=== PATIENT | female | born 1955 | race Caucasian/White ===

== ENCOUNTER → 2020-05-21 09:57 | Outpatient (BNVA) | payer OTHER, SELFPAY | PROVIDERS: PCP Family Medicine; Referring Provider Family Medicine; Visit Provider Internal Medicine | DX: J30.9 Allergic rhinitis, unspecified (principal); J44.9 Chronic obstructive pulmonary disease, unspecified; F41.9 Anxiety disorder, unspecified; Z79.899 Other long term (current) drug therapy | CPT/HCPCS: 99212 ==

== ENCOUNTER 2020-06-09 08:42 | Outpatient (REF) | payer OTHER, SELFPAY ==
--- NOTE | 2020-06-09 17:43 | PFT_ITS ---
INDICATION: COPD. SPIROMETRY: The FEV1 to FVC 77% with an FEV1 of 2.44 L, which is 87% predicted and an FVC of 3.15 L, which is 89% predicted. Bronchodilators were not used during the study. Maximum voluntary ventilation 89% predicted. LUNG VOLUMES: Total lung capacity 85% predicted with an expiratory reserve volume of 81% predicted. DIFFUSION CAPACITY: DLCO of 69% predicted. COMPARISONS: None. INTERPRETATION: No obstructive nor restrictive ventilatory defects identified. No bronchodilators were used at this time. Maximum voluntary ventilation within normal limits. Lung volumes are relatively normal. Total lung capacity just low normal. Therefore, occult interstitial lung conditions cannot be ruled out. The patient also has a mild isolated diffusion impairment. Clinical correlation warranted. MD DELIA Wayne/R[place] / [id number]
== END 2020-06-09 08:43 | disposition home or self-care (01) ==
LOC: HO.RESP 08:42
PROVIDERS: PCP Family Medicine; Visit Provider Internal Medicine
DX: J44.9 Chronic obstructive pulmonary disease, unspecified (principal); J30.9 Allergic rhinitis, unspecified
CPT/HCPCS: 94010; 94727; 94729

== ENCOUNTER → 2020-07-29 09:53 | Outpatient (BNVA) | payer MEDICARE, SELFPAY | PROVIDERS: PCP Family Medicine; Visit Provider Nurse Practitioner | DX: Z13.89 Encounter for screening for other disorder (principal) | CPT/HCPCS: Q3014 ==

== ENCOUNTER 2020-09-08 13:11 | Emergency (ER) | payer MEDICARE, SELFPAY ==
[2020-09-08 15:10] VITALS: BP 112/46; PULSE 64; RESP 18; TEMP 35.9; O2SAT 100; BMI 22.3
--- NOTE | 2020-09-08 18:16 | ED.ANXIETY ---
HPI - Anxiety General Chief Complaint: Anxiety Stated Complaint: panic attack Time Seen by Provider: 09/08/20 15:57 History of Present Illness HPI narrative: Patient with long history of anxiety who is being treated with Atarax at night and clonazepam in the morning complains that she has had trouble getting an appointment with her psychiatrist, she does not think the meds are working well as she has to take them every day and gets breakthrough anxiety attacks every day and is hoping for change in medication She denies any suicidal thoughts she does not hear voices she has does not want hurt anyone and does not want hurt herself she does not want to see crisis she was hoping we could make a medication adjustment here Related Data Home Medications Medication Instructions Recorded Confirmed albuterol sulfate mg INHALATION Q4H PRN 05/21/20 albuterol sulfate 90 mcg/actuation 0 mcg INHALATION 05/21/20 aerosol inhaler azelastine 137 mcg (0.1 %) nasal 1 - 2 spray INTRANASAL BID 05/21/20 spray aerosol jhmqwketjr-ilgdweincodnv-rjgphidj 2 tab PO DAILY PRN 05/21/20 50 mg-325 mg-40 mg tablet cholecalciferol (vitamin D3) 50 50 mcg PO DAILY 05/21/20 mcg (2,000 unit) tablet cyanocobalamin (vitamin B-12) 1,000 mcg PO QAM 05/21/20 1,000 mcg tablet divalproex 250 mg tablet,extended 250 mg PO DAILY 05/21/20 release 24 hr flu vacc 2020-21(65yr 0.5 ml IM DIRECTED 05/21/20 up)-MF59C(PF) 60 mcg(15 mcgx4)/0.5 mL IM syringe fluticasone 250 mcg-salmeterol 50 ea INHALATION 05/21/20 mcg/dose blistr powdr for inhalation fluticasone propionate 50 0 mcg INTRANASAL 05/21/20 mcg/actuation nasal spray,suspension loratadine 10 mg tablet 10 mg PO DAILY 05/21/20 multivitamin 1 tab PO DAILY 05/21/20 ondansetron HCl 4 mg tablet 4 mg PO BID PRN 05/21/20 sumatriptan succinate 100 mg tablet 0 mg PO 05/21/20 zafirlukast 20 mg tablet 20 mg PO BID 05/21/20 acetaminophen 650 mg 0 mg PO 07/29/20 tablet,extended release clonazepam 1 mg tablet 1 mg PO BID PRN 07/29/20 hydroxyzine pamoate 25 mg capsule 25 mg PO BID 07/29/20 naproxen 250 mg tablet 250 mg PO BID 07/29/20 Previous Rx's Medication Instructions Recorded docusate sodium 100 mg capsule 100 mg PO BID #60 cap 07/02/20 linaclotide 290 mcg capsule 290 mcg PO QAM 30 Days #30 cap 07/29/20 pantoprazole 40 mg tablet,delayed 40 mg PO BID #60 tab 07/30/20 release Allergies Allergy/AdvReac Type Severity Reaction Status Date / Time vancomycin [VANCOMYCIN] Allergy Severe REDNESS,ANDI Verified 07/29/20 09:55 H,SWELLING Tetanus & Diphtheria Allergy Severe FEVER,DIFF. Uncoded 03/27/20 16:18 Tox,Adult BREATHING Review of Systems Review of Systems: Positive for anxiety Negatives are no fever no chills no dizziness no weakness no fainting no suicidal thoughts, no homicidal thoughts, she is not hearing voices, no recent illness no runny nose cough or sore throat, no chest pain no shortness of breath no abdominal pain no nausea or vomiting PMFSH Past Medical History Source: nursing notes reviewed Medical History Allergic rhinitis Anxiety COPD (chronic obstructive pulmonary disease) Surgical History History of ear surgery History of esophagogastroduodenoscopy (EGD) History of right knee joint replacement Hx of colonoscopy Family History Family History (Updated 06/17/20 @ 08:53 by JOEY Castro) Father Diabetes Mother Diabetes Osteoporosis HTN (hypertension) Sister Pancreas cancer Social History Social History (Updated 07/29/20 @ 10:09 by JOEY Castro) Alcohol intake: current Alcohol intake frequency: does not drink Smoking Status: Never smoker Advance Directives: No Advance Directives Information Provided: Yes Physical Exam Vital Signs: Vital Signs: Last Vital Signs Temp 96.7 F L 09/08/20 15:10 Pulse 64 09/08/20 15:10 Resp 18 09/08/20 15:10 BP 112/46 L 09/08/20 15:10 Pulse Ox 100 09/08/20 15:10 Body Mass Index 22.3 General appearance no acute distress, comfortable relaxed and cooperative Head is normocephalic atraumatic neck is is supple Chest is clear bilaterally Extremities full range of motion x4 Skin no rash Neuro no focal deficit Course Course Course Narrative: Patient's main concern is she is unable to easily get appointments with her psychiatrist and is concerned that she might need medication adjustments At this point she is not in crisis she does not want a see crisis she is not suicidal homicidal she does not hear voices, she is able to perform her activities of daily life easily It is explained that we are unable at this time to facilitate an appointment with her psychiatrist and she understands she needs to either find a new provider if this 1 is too busy or continue trying to get an appointment Discharge Plan Discharge Clinical Impression: Anxiety Patient Disposition: Home, Self-Care Additional Instructions: Follow with your psychiatrist and primary doctor to review medications There may be some medications that prevent anxiety which might work better for you so you do need to review medications with psychiatrist We only have psychiatrist available for emergencies such as suicidal thoughts or hearing voices You can return here any time for any worse condition or any concerns Prescriptions: No Action docusate sodium [DOK] 100 mg capsule 100 mg PO BID Qty: 60 RF: 5 pantoprazole 40 mg tablet,delayed release (DR/EC) 40 mg PO BID Qty: 60 RF: 1 divalproex 250 mg tablet extended release 24 hr 250 mg PO DAILY RF: 0 loratadine 10 mg tablet 10 mg PO DAILY RF: 0 fluticasone propionate 50 mcg/actuation spray,suspension 0 mcg intranasal RF: 0 zafirlukast 20 mg tablet 20 mg PO BID RF: 0 fluticasone propion-salmeterol 250-50 mcg/dose blister with device inhalation RF: 0 ondansetron HCl 4 mg tablet 4 mg PO BID PRN (Reason: nausea) RF: 0 ehmzvzduau-dsfobjgdsmflp-bnyp 50-325-40 mg tablet 2 tab PO DAILY PRNRF: 0 sumatriptan succinate 100 mg tablet 0 mg PO RF: 0 albuterol sulfate 90 mcg/actuation HFA aerosol inhaler 0 mcg inhalation RF: 0 cyanocobalamin (vitamin B-12) 1,000 mcg tablet 1,000 mcg PO QAM RF: 0 cholecalciferol (vitamin D3) 50 mcg (2,000 unit) tablet 50 mcg PO DAILY RF: 0 multivitamin Tablet 1 tab PO DAILY RF: 0 azelastine 137 mcg (0.1 %) aerosol,spray 1 - 2 spray intranasal BID RF: 0 albuterol sulfate 2.5 mg /3 mL (0.083 %) solution for nebulization inhalation Q4H PRNRF: 0 Fluad Quad 2020-21(65y up)(PF) 60 mcg (15 mcg x 4)/0.5 mL syringe 0.5 ml IM DIRECTED RF: 0 Linzess 290 mcg capsule 290 mcg PO QAM 30 Days Qty: 30 RF: 4 Interventions: ED Discharge Assessment Last Done: 09/08/20 16:29 Discharge Date/Time: 09/08/20 16:29
== END 2020-09-08 16:29 | disposition home or self-care (01) ==
PROVIDERS: Emergency Provider Emergency Medicine; PCP Family Medicine
DX: F41.9 Anxiety disorder, unspecified (principal); Z79.899 Other long term (current) drug therapy
CPT/HCPCS: 99282; 99283

== ENCOUNTER → 2020-09-15 15:22 | Outpatient (BNVA) | payer MEDICARE, SELFPAY | PROVIDERS: PCP Family Medicine; Visit Provider Nurse Practitioner | CPT/HCPCS: Q3014 ==

== ENCOUNTER → 2020-09-22 11:03 | Outpatient (BNVA) | payer MEDICARE, SELFPAY | PROVIDERS: PCP Family Medicine; Visit Provider Internal Medicine | DX: J44.9 Chronic obstructive pulmonary disease, unspecified (principal); J30.9 Allergic rhinitis, unspecified; F41.9 Anxiety disorder, unspecified; Z79.51 Long term (current) use of inhaled steroids | CPT/HCPCS: 99212 ==

== ENCOUNTER → 2020-10-28 13:29 | Outpatient (BNVA) | payer MEDICARE, SELFPAY | PROVIDERS: PCP Family Medicine; Visit Provider Nurse Practitioner | DX: Z13.89 Encounter for screening for other disorder (principal) | CPT/HCPCS: Q3014 ==

== ENCOUNTER 2020-11-24 09:37 | Emergency (ER) | payer MEDICARE, SELFPAY ==
--- NOTE | ~2020-11-24 | XR_ITS ---
EXAMINATION: XR CHEST CLINICAL INFORMATION: Cough COMPARISON: Previous chest x-ray most recent August 2019 TECHNIQUE: Frontal view of the chest was obtained. FINDINGS: The cardiac and mediastinal contours are stable. The lungs are clear. There is no pleural effusion or pneumothorax. There are degenerative changes of the spine. XR/XR chest 1V IMPRESSION: No evidence for acute disease in the chest.
[2020-11-24 10:04] VITALS: BP 91/53; PULSE 74; RESP 18; TEMP 37.2; O2SAT 98; BMI 25.1
--- NOTE | 2020-11-24 10:19 | ED.GENADULT ---
HPI - General Adult General Chief complaint: General Medical Stated complaint: cough Time Seen by Provider: 11/24/20 10:17 Source: patient Mode of arrival: ambulatory Limitations: no limitations History of Present Illness HPI narrative: 65 y/o female with history of COPD, GERD, constipation, anxiety, seasonal allergies who presents to the ER with dry cough, headache, malaise for about 1 week. She has been using her inhalers as directed. She is not SOB or having LOPES. No chest pain, fever or chills. She just generally feels unwell. No known exposure to COVID-19. MD complaint: COVID symptoms Onset (ago): day(s) (5) Location: head and chest Radiation: non-radiation Quality: aching Pain Consistency: constant Relieving factors: rest Exacerbating factors: movement Associated symptoms: cough, headaches, loss of appetite and malaise Treatments prior to arrival: none Related Data Home Medications Medication Instructions Recorded Confirmed albuterol sulfate mg INHALATION Q4H PRN 05/21/20 09/22/20 azelastine 137 mcg (0.1 %) nasal 1 - 2 spray INTRANASAL BID 05/21/20 09/22/20 spray aerosol bzfagfwaip-trunwodklwqwu-gndtysow 2 tab PO DAILY PRN 05/21/20 09/22/20 50 mg-325 mg-40 mg tablet cholecalciferol (vitamin D3) 50 50 mcg PO DAILY 05/21/20 09/22/20 mcg (2,000 unit) tablet cyanocobalamin (vitamin B-12) 1,000 mcg PO QAM 05/21/20 09/22/20 1,000 mcg tablet divalproex 250 mg tablet,extended 250 mg PO DAILY 05/21/20 09/22/20 release 24 hr flu vacc 2020-21(65yr 0.5 ml IM DIRECTED 05/21/20 09/22/20 up)-MF59C(PF) 60 mcg(15 mcgx4)/0.5 mL IM syringe fluticasone 250 mcg-salmeterol 50 ea INHALATION 05/21/20 09/22/20 mcg/dose blistr powdr for inhalation fluticasone propionate 50 0 mcg INTRANASAL 05/21/20 09/22/20 mcg/actuation nasal spray,suspension loratadine 10 mg tablet 10 mg PO DAILY 05/21/20 09/22/20 multivitamin 1 tab PO DAILY 05/21/20 09/22/20 ondansetron HCl 4 mg tablet 4 mg PO BID PRN 05/21/20 09/22/20 sumatriptan succinate 100 mg tablet 0 mg PO 05/21/20 09/22/20 zafirlukast 20 mg tablet 20 mg PO BID 05/21/20 09/22/20 acetaminophen 650 mg 0 mg PO 07/29/20 09/22/20 tablet,extended release clonazepam 1 mg tablet 1 mg PO BID PRN 07/29/20 09/22/20 hydroxyzine pamoate 25 mg capsule 25 mg PO BID 07/29/20 09/22/20 naproxen 250 mg tablet 250 mg PO BID 07/29/20 09/22/20 Previous Rx's Medication Instructions Recorded linaclotide 290 mcg capsule 290 mcg PO QAM 30 Days #30 cap 07/29/20 methylcellulose (laxative) 500 mg 1,000 mg PO DAILY 30 Days #60 tab 09/15/20 tablet pantoprazole 40 mg tablet,delayed 40 mg PO DAILY #60 tab 09/23/20 release azithromycin [Zithromax Z-Thomas] See Rx Instructions .ROUTE 11/24/20 .COMPLEX #6 tab prednisone 40 mg PO DAILY #10 tab 11/24/20 Allergies Allergy/AdvReac Type Severity Reaction Status Date / Time vancomycin [VANCOMYCIN] Allergy Severe REDNESS,ANDI Verified 10/28/20 13:30 H,SWELLING Tetanus & Diphtheria Allergy Severe FEVER,DIFF. Uncoded 03/27/20 16:18 Tox,Adult BREATHING Review of Systems Review of Systems: Constitutional: No Fever, + Chills ENT/Mouth: No sore throat, No Rhinorrhea, No Swallowing Difficulty Cardiovascular: No Chest Pain, No SOB, No Orthopnea, No Edema Respiratory: + Cough, No Sputum, No Wheezing, No dyspnea Gastrointestinal: + Nausea, No Vomiting, No Diarrhea, No abdominal Pain Genitourinary: No Dysuria, No Urinary Frequency, No Hematuria Musculoskeletal: + joint pain, + Myalgias Skin: No Skin Lesions, No rash Neuro: No Weakness, No Numbness, No Dizziness, + Headache Psych: No Anxiety/Panic, No Depression Heme/Lymph: No Bruising, No Lymphadenopathy PMFSH Past Medical History Attestation statement: The following information was validated with the patient. Medical History Allergic rhinitis Anxiety COPD (chronic obstructive pulmonary disease) Surgical History History of ear surgery History of esophagogastroduodenoscopy (EGD) History of right knee joint replacement Hx of colonoscopy Family History Family History Father Diabetes Mother Diabetes Osteoporosis HTN (hypertension) Sister Pancreas cancer Social History Social History (Updated 10/28/20 @ 13:40 by JOEY Castro) Alcohol intake: current Alcohol intake frequency: does not drink Smoking Status: Never smoker Advance Directives: No Advance Directives Information Provided: No Physical Exam Vital Signs: Vital Signs: Last Vital Signs Temp 98.9 F 11/24/20 10:04 Pulse 67 11/24/20 10:40 Resp 18 11/24/20 10:04 BP 100/56 L 11/24/20 10:40 Pulse Ox 98 11/24/20 10:04 Body Mass Index 25.1 Appearance: Alert. Oriented X3. No acute distress. Eyes: Pupils equal, round and reactive to light. ENT: Pharynx normal. Neck: Normal inspection. Neck supple. CVS: Normal heart rate and rhythm. Pulses normal. Respiratory: No respiratory distress. Focal expiratory wheeze in RLL, otherwise clear throughout. Speaking in full sentences. Abdomen: Soft and nontender. +BS x4 Skin: Skin warm and dry. Normal skin color. Normal skin turgor. No rashes. Extremities: No lower extremity edema. Negative Toribio's sign. Neuro: Oriented X 3. No motor deficit. No sensory deficit. Course Course Course Narrative: 65 y/o female with history of COPD presenting with COVID symptoms of cough, headache and body aches x5-7 days. Non-toxic and afebrile on arrival. Soft BP initially, repeated was 100/56. Asymptomatic. Exam concerning for possible RLL PNA. Will get CXR and Viral PCR. Reevaluation(s) Reevaluation #1: CXR clear. Viral PCR negative. Will treat for acute bronchitis. She is stable for d/c home with outpatient follow up. Warning signs to return were d/w patient. Medical Decision Making Lab Data Labs: Lab Results 11/24/20 Range/Units 10:54 Coronavirus (PCR) NEGATIVE (Negative) Influenza Type A (PCR) NEGATIVE (Negative) Influenza Type B (PCR) NEGATIVE (Negative) RSV RNA Qual (PCR) NEGATIVE (Negative) Discharge Plan Discharge Clinical Impression: Bronchitis Patient Disposition: Home, Self-Care Instructions: Acute Bronchitis (ED) Additional Instructions: You were NEGATIVE for COVID-19, Flu and RSV. Your chest x-ray and oxygen levels were normal. Rest. Drink plenty of fluids. Do not go out in public while you are feeling unwell. Take the prescribed antibiotic and steroid medication for your lungs. Take over the counter cold/flu medications as needed for your symptoms. Take Tylenol and/or Motrin as needed for headaches and body aches. Follow up with your doctor this week. If your symptoms worsen , if you develop difficulty breathing or any other concerning symptom come back to the ER for further evaluation. Prescriptions: New azithromycin [Zithromax Z-Thomas] 250 mg tablet See Rx Instructions .ROUTE .COMPLEX Qty: 6 RF: 0 prednisone 20 mg tablet 40 mg PO DAILY Qty: 10 RF: 0 No Action pantoprazole 40 mg tablet,delayed release (DR/EC) 40 mg PO DAILY Qty: 60 RF: 1 divalproex 250 mg tablet extended release 24 hr 250 mg PO DAILY RF: 0 loratadine 10 mg tablet 10 mg PO DAILY RF: 0 fluticasone propionate 50 mcg/actuation spray,suspension 0 mcg intranasal RF: 0 zafirlukast 20 mg tablet 20 mg PO BID RF: 0 fluticasone propion-salmeterol 250-50 mcg/dose blister with device inhalation RF: 0 ondansetron HCl 4 mg tablet 4 mg PO BID PRN (Reason: nausea) RF: 0 nibxxyjltc-hwhmtesqhpeqt-cznj 50-325-40 mg tablet 2 tab PO DAILY PRNRF: 0 sumatriptan succinate 100 mg tablet 0 mg PO RF: 0 cyanocobalamin (vitamin B-12) 1,000 mcg tablet 1,000 mcg PO QAM RF: 0 cholecalciferol (vitamin D3) 50 mcg (2,000 unit) tablet 50 mcg PO DAILY RF: 0 multivitamin Tablet 1 tab PO DAILY RF: 0 azelastine 137 mcg (0.1 %) aerosol,spray 1 - 2 spray intranasal BID RF: 0 albuterol sulfate 2.5 mg /3 mL (0.083 %) solution for nebulization inhalation Q4H PRNRF: 0 Fluad Quad 2020-(65y up)(PF) 60 mcg (15 mcg x 4)/0.5 mL syringe 0.5 ml IM DIRECTED RF: 0 hydroxyzine pamoate 25 mg capsule 25 mg PO BID RF: 0 naproxen 250 mg tablet 250 mg PO BID RF: 0 acetaminophen 650 mg tablet extended release 0 mg PO RF: 0 clonazepam 1 mg tablet 1 mg PO BID PRNRF: 0 Linzess 290 mcg capsule 290 mcg PO QAM 30 Days Qty: 30 RF: 4 Citrucel 500 mg tablet 1,000 mg PO DAILY 30 Days Qty: 60 RF: 6 Interventions: ED Discharge Assessment Last Done: 11/24/20 12:45 Discharge Date/Time: 11/24/20 12:45 Print Language: [place]
[2020-11-24 10:40] VITALS: BP 100/56; PULSE 67
--- NOTE | 2020-11-24 10:54 | PC.NURSE ---
BP reassessed and is trending up. CXR and covid swab obtained
[2020-11-24] MEDS: Acetaminophen 325 MG TABLET 975 MG PO (11:18)
[2020-11-24 11:43] LABS: Influenza A PCR NEGATIVE (Negative); Influenza B PCR NEGATIVE (Negative); Resp Syncy Virus RNA Qual PCR NEGATIVE (Negative); SARS COV2 PCR INHOUSE NEGATIVE (Negative)
== END 2020-11-24 12:45 | disposition home or self-care (01) ==
PROVIDERS: Physician Assistant; Emergency Provider Emergency Medicine; PCP Family Medicine
DX: J20.9 Acute bronchitis, unspecified (principal); Z20.822 Contact with and (suspected) exposure to COVID-19; J44.9 Chronic obstructive pulmonary disease, unspecified
CPT/HCPCS: 0241U; 36415; 71045; 99283

== ENCOUNTER 2020-11-28 12:44 | Inpatient (IN) | payer MEDICARE, SELFPAY ==
[2020-11-28] VITALS (9 sets, daily range): BP systolic 100–150; BP diastolic 46–79; PULSE 69–78; RESP 15–40; TEMP 35.9–36.9; O2SAT 89–100; BMI 25.8
--- NOTE | ~2020-11-28 | XR_ITS ---
EXAMINATION: XR CHEST CLINICAL INFORMATION: Shortness of breath COMPARISON: Previous chest x-rays most recent 11/24/2020 TECHNIQUE: Frontal view of the chest was obtained. FINDINGS: The cardiac and mediastinal contours are stable. There are increased markings at the left lung base questionable for a pneumonia. The right lung is clear. There is no pleural effusion or pneumothorax. There are degenerative changes of the spine. XR/XR chest 1V IMPRESSION: Question left base pneumonia.
[2020-11-28] MEDS: methylPREDNISolone Sod Succ 125 MG/2 ML VIAL IVPUSH (13:20)
[2020-11-28] MEDS: Albuterol/Iprat 2.5/0.5MG 3 ML AMPUL.NEB INHALE ×2 (13:26→20:00)
[2020-11-28] MEDS: LORazepam 2 MG/ML VIAL 1 MG IVPUSH (14:13)
--- NOTE | 2020-11-28 14:25 | ED_ITS ---
HPI - General Adult General Chief complaint: Dyspnea Stated complaint: sob Time Seen by Provider: 11/28/20 13:09 Source: patient Mode of arrival: ambulatory Limitations: no limitations History of Present Illness HPI narrative: Patient presents for shortness of breath, body aches, coughing, and shortness of breath on exertion. Patient states no fever or chills. Patient was seen last week with similar symptoms. Related Data Home Medications Medication Instructions Recorded Confirmed azelastine 137 mcg (0.1 %) nasal 1 - 2 spray INTRANASAL BID 05/21/20 09/22/20 spray aerosol [id number] 2 tab PO DAILY PRN 05/21/20 09/22/20 50 mg-325 mg-40 mg tablet cholecalciferol (vitamin D3) 50 50 mcg PO DAILY 05/21/20 11/28/20 mcg (2,000 unit) tablet cyanocobalamin (vitamin B-12) 1,000 mcg PO QAM 05/21/20 11/28/20 1,000 mcg tablet divalproex 250 mg tablet,extended 250 mg PO BEDTIME 05/21/20 11/28/20 release 24 hr fluticasone 250 mcg-salmeterol 50 1 inh INHALATION BID 05/21/20 11/28/20 mcg/dose blistr powdr for inhalation fluticasone propionate 50 2 spray INTRANASAL DAILY 05/21/20 11/28/20 mcg/actuation nasal spray,suspension loratadine 10 mg tablet 10 mg PO DAILY 05/21/20 11/28/20 multivitamin 1 tab PO DAILY 05/21/20 09/22/20 ondansetron HCl 4 mg tablet 4 mg PO BID PRN 05/21/20 09/22/20 sumatriptan succinate 100 mg tablet 100 mg PO ONCE PRN 05/21/20 11/28/20 zafirlukast 20 mg tablet 20 mg PO BID 05/21/20 11/28/20 acetaminophen 650 mg 0 mg PO 07/29/20 09/22/20 tablet,extended release clonazepam 1 mg tablet 1 mg PO BID 07/29/20 11/28/20 hydroxyzine pamoate 25 mg capsule 25 mg PO BID PRN 07/29/20 11/28/20 naproxen 250 mg tablet 250 mg PO BID 07/29/20 09/22/20 albuterol sulfate 2 puff PO Q4H PRN 11/28/20 11/28/20 docusate sodium 100 mg PO BID 11/28/20 11/28/20 sucralfate 1 tab PO QID 11/28/20 11/28/20 Previous Rx's Medication Instructions Recorded linaclotide 290 mcg capsule 290 mcg PO QAM 30 Days #30 cap 07/29/20 methylcellulose (laxative) 500 mg 1,000 mg PO DAILY 30 Days #60 tab 09/15/20 tablet pantoprazole 40 mg tablet,delayed 40 mg PO DAILY #60 tab 09/23/20 release azithromycin [Zithromax Z-Thomas] See Rx Instructions .ROUTE 11/24/20 .COMPLEX #6 tab prednisone 40 mg PO DAILY #10 tab 11/24/20 Allergies Allergy/AdvReac Type Severity Reaction Status Date / Time vancomycin [VANCOMYCIN] Allergy Severe REDNESS,ANDI Verified 10/28/20 13:30 H,SWELLING Tetanus & Diphtheria Allergy Severe FEVER,DIFF. Uncoded 03/27/20 16:18 Tox,Adult BREATHING Review of Systems Review of Systems: Yes all other systems are reviewed and are negative Constitutional: Constitutional: Reports as per HPI and Reports no additional constitutional complaints Eyes: Eyes: Reports as per HPI and Reports no additional eye complaints ENT: Reports system reviewed and no additional complaints, except as doc umented and Reports as per HPI Cardiovascular: Cardiovascular: Reports as per HPI, Reports no additional cardiovascular complaints, Reports dyspnea and Reports dyspnea on exertion Respiratory: Respiratory: Reports as per HPI, Reports no additional respiratory complaints, Reports cough, Reports pain with cough, Reports dyspnea and Reports dyspnea on exertion Gastrointestinal: Gastrointestinal: Reports as per HPI and Reports no additional gastrointestinal complaints Genitourinary: Genitourinary: Reports no additional female genitourinary complaints and Reports as per HPI Musculoskeletal: Musculoskeletal: Reports no additional musculoskeletal complaints and Reports as per HPI Neurologic: Reports system reviewed and no additional complaints, except as documented and Reports as per HPI Psychiatric: Psychiatric: Reports no additional psychiatric complaints and Reports as per HPI [facility] Past Medical History Medical History Allergic rhinitis Anxiety COPD (chronic obstructive pulmonary disease) Surgical History History of ear surgery History of esophagogastroduodenoscopy (EGD) History of right knee joint replacement Hx of colonoscopy Family History Family History Father Diabetes Mother Diabetes Osteoporosis HTN (hypertension) Sister Pancreas cancer Social History Social History (Updated 10/28/20 @ 13:40 by JOEY Castro) Alcohol intake: current Alcohol intake frequency: does not drink Smoking Status: Never smoker Advance Directives: Yes Advance Directives Information Provided: Yes Advance Directives on File: No Physical Exam Vital Signs: Vital Signs: Last Vital Signs Temp 98.4 F 11/28/20 12:48 Pulse 72 11/28/20 15:05 Resp 18 11/28/20 15:05 BP 100/64 11/28/20 15:05 Pulse Ox 89 L 11/28/20 16:05 Oxygen Flow Rate 2 11/28/20 12:48 Body Mass Index 25.8 Const: General: cooperative, healthy appearing, comfortable, well developed, alert, awake and acute distress (Mild); No lethargic Orientation/consciousne ss: patient oriented x3 and No lethargic HENMT: Head: Yes normal to inspection, Yes No palpable skull fracture present, Yes normocephalic, Yes atraumatic and No abrasion Eyes: General: appearance normal, both eyes and all related structures Neck: Neck: Yes normal visual inspection, Yes full ROM, Yes no lympha denopathy, Yes no meningeal signs, Yes trachea midline, Yes supple and No tender Chest: Chest palpation & inspection: normal inspection of the chest and normal palpation of entire chest wall Resp: Effort & Inspection: normal respiratory effort and able to speak in complete sentences Auscultation: rhonchi (Diffuse) and wheezes (Diffuse) expiratory wheezes Cardio: Jugular venous distension: no JVD Heart sounds: S1 normal heart sound present and S2 normal heart sound present GI: Inspection: Yes normal to inspection and No abdominal wall ecchymosis Palpation (GI): Soft to palpation, not firm, nontender, no guarding and not rigid : General: No CVA tenderness and Yes no CVA tenderness Back/Spine/Pelvis: Back: no CVA tenderness, No CVA tenderness and No back tenderness Skin: General skin exam: no rashes or lesions noted and elasticity normal Neuro: General: patient oriented x3, no meningeal signs and CN's II-XI intact bilaterally Cranial nerves: Yes CN's II-XII intact bilaterally Extrem: General: Yes normal to inspection and Yes full ROM Psych: Appearance: grossly normal, well kempt and not disheveled Course Course Course Narrative: Patient will be worked up as asthma/COPD exacerbation. Patient will have cardiac evaluation also. Patient had chest x-ray. Reevaluation(s) Reevaluation #1: X-ray shows questionable pneumonia. Antibiotics started. Patient started albuterol, magnesium, Solu-Medrol. COVID swab pending Reevaluation #2: latic 3.5 and will contact hospitalist for admission. Reevaluation #3: On ambulation patient O2 saturation dropped from 95-89% on room air. Hospitalist accepted the case for admission. EKG negative for STEMI Medical Decision Making MDM Narrative Medical decision making narrative: COPD exacerbation. Pneumonia Lab Data Result diagrams: 11/28/20 14:47 11/28/20 14:47 Labs: Lab Results 11/28/20 11/28/20 11/28/20 Range/Units 14:47 14:47 14:47 WBC 9.3 (4.8-10.8) X10*3/uL RBC 4.67 (4.20-5.50) X10*6/uL Hgb 12.5 (12.0-16.0) g/dl Hct 39.6 (37-47) % MCV 84.8 (80-98) fL MCH 26.8 L (27.0-33.0) pg MCHC 31.6 (31.0-35.0) g/dl RDW 13.6 (11.0-16.0) % Plt Count 344 (160-400) X10*3/uL MPV 8.8 L (9.4-12.3) fL Immature Gran % (Auto) 0.6 H (0.0-0.4) % Neut % (Auto) 92.7 H (45-73) % Lymph % (Auto) 5.7 L (20-40) % Bollinger % (Auto) 0.9 L (2-11) % Eos % (Auto) 0.0 (0-4) % Baso % (Auto) 0.1 (0-2) % Lymph # (Auto) 0.5 L (1.2-4.9) X10*3/uL Bollinger # (Auto) 0.1 (0.1-1.2) X10*3/uL Eos # (Auto) 0.0 (0.0-0.4) X10*3/uL Baso # (Auto) 0.0 (0.0-0.2) X10*3/uL Abs Immat Gran (auto) 0.06 H (0.00-0.03) X10*3/uL Absolute Neuts (auto) 8.6 H (2.0-8.3) X10*3/uL Absolute Nucleated RBC 0.000 (0.0-0.012) X10*3/uL Nucleated RBC % (auto) 0.0 (0.0-0.2) /100WBC Smear Tech's Comments VERIFIED PT 11.6 (10.8-13.0) SEC INR 1.0 (0.9-1.1) Sodium (135-145) mmol/L Potassium (3.3-5.1) mmol/L Chloride (96-108) mmol/L Carbon Dioxide (22-29) mmol/L Anion Gap (12-20) BUN (9-16) mg/dL Creatinine (0.5-1.4) mg/dL Estim Creat Clear Calc Estimated GFR Random Glucose (60-115) mg/dL Lactic Acid (0.5-2.0) mmol/L Calcium (8.4-10.2) mg/dL Magnesium (1.6-2.6) mg/dL Troponin I High Sens (<3.5-17.0) ng/L B-Natriuretic Peptide 55 (<100) pg/mL Coronavirus (PCR) (Negative) Influenza Type A (PCR) (Negative) Influenza Type B (PCR) (Negative) RSV RNA Qual (PCR) (Negative) 11/28/20 11/28/20 11/28/20 Range/Units 14:47 14:47 14:47 WBC (4.8-10.8) X10*3/uL RBC (4.20-5.50) X10*6/uL Hgb (12.0-16.0) g/dl Hct (37-47) % MCV (80-98) fL MCH (27.0-33.0) pg MCHC (31.0-35.0) g/dl RDW (11.0-16.0) % Plt Count (160-400) X10*3/uL MPV (9.4-12.3) fL Immature Gran % (Auto) (0.0-0.4) % Neut % (Auto) (45-73) % Lymph % (Auto) (20-40) % Bollinger % (Auto) (2-11) % Eos % (Auto) (0-4) % Baso % (Auto) (0-2) % Lymph # (Auto) (1.2-4.9) X10*3/uL Bollinger # (Auto) (0.1-1.2) X10*3/uL Eos # (Auto) (0.0-0.4) X10*3/uL Baso # (Auto) (0.0-0.2) X10*3/uL Abs Immat Gran (auto) (0.00-0.03) X10*3/uL Absolute Neuts (auto) (2.0-8.3) X10*3/uL Absolute Nucleated RBC (0.0-0.012) X10*3/uL Nucleated RBC % (auto) (0.0-0.2) /100WBC Smear Tech's Comments PT (10.8-13.0) SEC INR (0.9-1.1) Sodium 145 (135-145) mmol/L Potassium 3.9 (3.3-5.1) mmol/L Chloride 107 (96-108) mmol/L Carbon Dioxide 26 (22-29) mmol/L Anion Gap 16 (12-20) BUN 16 (9-16) mg/dL Creatinine 0.80 (0.5-1.4) mg/dL Estim Creat Clear Calc 74.5 Estimated GFR > 60 Random Glucose 148 H (60-115) mg/dL Lactic Acid (0.5-2.0) mmol/L Calcium 9.9 (8.4-10.2) mg/dL Magnesium 2.4 (1.6-2.6) mg/dL Troponin I High Sens < 3.5 (<3.5-17.0) ng/L B-Natriuretic Peptide (<100) pg/mL Coronavirus (PCR) NEGATIVE (Negative) Influenza Type A (PCR) NEGATIVE (Negative) Influenza Type B (PCR) NEGATIVE (Negative) RSV RNA Qual (PCR) NEGATIVE (Negative) 11/28/20 11/28/20 Range/Units 14:47 14:47 WBC (4.8-10.8) X10*3/uL RBC (4.20-5.50) X10*6/uL Hgb (12.0-16.0) g/dl Hct (37-47) % MCV (80-98) fL MCH (27.0-33.0) pg MCHC (31.0-35.0) g/dl RDW (11.0-16.0) % Plt Count (160-400) X10*3/uL MPV (9.4-12.3) fL Immature Gran % (Auto) (0.0-0.4) % Neut % (Auto) (45-73) % Lymph % (Auto) (20-40) % Bollinger % (Auto) (2-11) % Eos % (Auto) (0-4) % Baso % (Auto) (0-2) % Lymph # (Auto) (1.2-4.9) X10*3/uL Bollinger # (Auto) (0.1-1.2) X10*3/uL Eos # (Auto) (0.0-0.4) X10*3/uL Baso # (Auto) (0.0-0.2) X10*3/uL Abs Immat Gran (auto) (0.00-0.03) X10*3/uL Absolute Neuts (auto) (2.0-8.3) X10*3/uL Absolute Nucleated RBC (0.0-0.012) X10*3/uL Nucleated RBC % (auto) (0.0-0.2) /100WBC Smear Tech's Comments PT (10.8-13.0) SEC INR (0.9-1.1) Sodium (135-145) mmol/L Potassium (3.3-5.1) mmol/L Chloride (96-108) mmol/L Carbon Dioxide (22-29) mmol/L Anion Gap (12-20) BUN (9-16) mg/dL Creatinine (0.5-1.4) mg/dL Estim Creat Clear Calc Estimated GFR Random Glucose (60-115) mg/dL Lactic Acid 3.8 H* (0.5-2.0) mmol/L Calcium (8.4-10.2) mg/dL Magnesium Cancelled (1.6-2.6) mg/dL Troponin I High Sens (<3.5-17.0) ng/L B-Natriuretic Peptide (<100) pg/mL Coronavirus (PCR) (Negative) Influenza Type A (PCR) (Negative) Influenza Type B (PCR) (Negative) RSV RNA Qual (PCR) (Negative) ECG Data Interpretation: Sinus rhythm with premature supraventricular complexes. Ventricular rate 86. Peer interval 142. QRS 96. QTC 493. Negative STEMI Discharge Plan Discharge Clinical Impression: COPD (chronic obstructive pulmonary disease), Pneumonia Patient Disposition: Admitted As Inpatient
[2020-11-28 14:57] LABS: Basophils Percent Auto 0.1 % (0-2); Hematocrit 39.6 % (37-47); Hemoglobin 12.5 g/dl (12.0-16.0); Imm Gran Abs Auto 0.06 X10*3/uL (0.00-0.03); Imm Gran Pct Auto 0.6 % (0.0-0.4); Lymphocytes Absolute Auto 0.5 X10*3/uL (1.2-4.9); Lymphocytes Percent Auto 5.7 % (20-40); MANUAL DIFF FLAG SCAN; Mean Corpuscular HGB Conc 31.6 g/dl (31.0-35.0); Mean Corpuscular Hemoglobin 26.8 pg (27.0-33.0); Mean Corpuscular Volume 84.8 fL (80-98); Mean Platelet Volume 8.8 fL (9.4-12.3); Monocytes Absolute Auto 0.1 X10*3/uL (0.1-1.2); Monocytes Percent Auto 0.9 % (2-11); Neutrophils Absolute Auto 8.6 X10*3/uL (2.0-8.3); Neutrophils Percent Auto 92.7 % (45-73); Platelet Count 344 X10*3/uL (160-400); Red Blood Count 4.67 X10*6/uL (4.20-5.50); Red Cell Distribution Width 13.6 % (11.0-16.0); SCAN SMEAR FLAG 1; White Blood Count 9.3 X10*3/uL (4.8-10.8)
[2020-11-28] MEDS: cefTRIAXone sodium 1 GM in 0.9 % Sodium Chloride 50 ML IV (15:02)
[2020-11-28 15:07] LABS: Prothrombin Time 11.6 SEC (10.8-13.0)
[2020-11-28 15:14] LABS: SLIDE REVIEW VERIFIED
[2020-11-28 15:24] LABS: Lactic Acid 3.8 mmol/L (0.5-2.0)
[2020-11-28 15:29] LABS: Anion Gap 16 (12-20); Blood Urea Nitrogen 16 mg/dL (9-16); Calcium 9.9 mg/dL (8.4-10.2); Carbon Dioxide 26 mmol/L (22-29); Chloride 107 mmol/L (96-108); Creatinine Clr Calc Pharmacy 74.5; Estimated Glomerular Filt Rate > 60; Glucose Random 148 mg/dL (60-115); Magnesium 2.4 mg/dL (1.6-2.6); Potassium 3.9 mmol/L (3.3-5.1); Sodium 145 mmol/L (135-145)
[2020-11-28 15:32] LABS: B Type Natriuretic Peptide 55 pg/mL (<100); Troponin-I High Sensitivity < 3.5 ng/L (<3.5-17.0)
[2020-11-28 15:48] LABS: Influenza A PCR NEGATIVE (Negative); Influenza B PCR NEGATIVE (Negative); Resp Syncy Virus RNA Qual PCR NEGATIVE (Negative); SARS COV2 PCR INHOUSE NEGATIVE (Negative)
[2020-11-28] MEDS: Azithromycin 500 MG in 0.9 % Sodium Chloride 250 ML 125 MG IV (15:52)
[2020-11-28] MEDS: 0.9 % Sodium Chloride 1,000 ML 999 ML IV ×2 (15:53→16:20)
--- NOTE | 2020-11-28 16:06 | PC.NURSE ---
TRIALED AMBULATION, SPO2 DOWN TO 89% ON RA, DOES NOT USE SUPP O2 AT HOME.
--- NOTE | 2020-11-28 16:10 | ECG_ITS ---
Test Reason : DYSPNEA Blood Pressure : / mmHG Vent. Rate : 086 BPM Atrial Rate : 086 BPM P-R Int : 142 ms QRS Dur : 096 ms QT Int : 412 ms P-R-T Axes : 067 -03 025 degrees QTc Int : 493 ms Sinus rhythm with Premature supraventricular complexes Minimal voltage criteria for LVH, may be normal variant Lateral infarct (cited on or before 09-JUN-2014) Cannot rule out Inferior infarct , age undetermined Abnormal ECG When compared with ECG of 03-SEP-2016 16:26, Premature supraventricular complexes are now Present QT has lengthened Referred By: Ryan Lawrence Electronically Signed By:ULYSSES UMAÑA MD
[2020-11-28 17:01] LABS: Reflex Lactate? Lactic Acid Added
--- NOTE | 2020-11-28 17:21 | P.HPHOSP_ITS ---
History of Present Illness Date of Service: 11/28/20 <JOSE Baker - Last Filed: 11/28/20 17:58> Chief Complaint: Shortness of breath <JOSE Baker - Last Filed: 11/28/20 17:58> This is a 65-year-old Turkish-speaking female who presents to the emergency department complaints of shortness of breath. She has been feeling unwell for the past several days. She reports a cough productive of green phlegm, decreased p.o. intake and shortness of breath. She ran out of nebulizer solution at home and has not been able to use her nebulizer. Was seen in the emergency department on November 24 and diagnosed with bronchitis. She was discharged home with azithromycin and prednisone which she has been taking. On arrival she was tachypneic with respiratory rate in the 40s. She was hypoxic with oxygen saturation of 89% on room air. Lab work was relatively unremarkable with the exception of an elevated lactic acid of 3.8. Chest x-ray showed question of left lower lobe pneumonia. In the emergency department she was treated with ceftriaxone, azithromycin, IV Solu-Medrol and DuoNeb breathing treatment as well as IV fluid. Her respiratory rate has improved significantly. <JOSE Baker - Last Filed: 11/28/20 17:58> Review of Systems Review of Systems: Yes all other systems are reviewed and are negative <JOSE Baker - Last Filed: 11/28/20 17:58> Cardiovascular: Cardiovascular: Denies chest pain and Reports dyspnea <JOSE Baker - Last Filed: 11/28/20 17:58> Respiratory: Respiratory: Reports cough and Reports dyspnea <JOSE Verduzco - Last Filed: 11/28/20 17:58> Gastrointestinal: Gastrointestinal: Denies abdominal pain <JOSE Baker Last Filed: 11/28/20 17:58> [facility] Medical History: Medical History Allergic rhinitis Anxiety COPD (chronic obstructive pulmonary disease) <JOSE Baker Last Filed: 11/28/20 17:58> Functional capacity: independent ambulation <JOSE Baker Last Filed: 11/28/20 17:58> Family History: Family History Father Diabetes Mother Diabetes Osteoporosis HTN (hypertension) Sister Pancreas cancer <JOSE Baker - Last Filed: 11/28/20 17:58> Surgical History: Surgical History History of ear surgery History of esophagogastroduodenoscopy (EGD) History of right knee joint replacement Hx of colonoscopy <JOSE Baker - Last Filed: 11/28/20 17:58> Social History: Social History (Updated 11/28/20 @ 17:28 by JOSE Baker) Household Members: Family Housing: Apartment Alcohol intake: never Smoking Status: Never smoker Use of substances other than those prescribed or required for medical reasons: No Currently Displaying Signs/Symptoms of Drug Intoxication Withdrawal: No Have you been hit, kicked, punched, or otherwise hurt by someone within the past year? If so, by whom?: No Do you feel safe in your current relationship?: No Current Relationship Is there a partner from a previous relationship who is making you feel unsafe now?: No Are you made to feel afraid or neglected: No Advance Directives: Yes Advance Directives Information Provided: Yes Advance Directives on File: No Advance Directives Date on File: 11/28/20 Do you have thoughts of harming others: None Do you have a plan to hurt others: No Plan Recently lost weight without trying: Unsure Eating poorly because of decreased appetite: Yes Nutrition Risks: No Nutritional Risk Patient : No : No Poor oral hygiene: No service: No Current occupational status: unemployed <JOSE Baker - Last Filed: 11/28/20 17:58> Meds Allergies/Adverse reactions: Allergies Allergy/AdvReac Type Severity Reaction Status Date / Time vancomycin [VANCOMYCIN] Allergy Severe REDNESS,ANDI Verified 10/28/20 13:30 H,SWELLING Tetanus & Diphtheria Allergy Severe FEVER,DIFF. Uncoded 03/27/20 16:18 Tox,Adult BREATHING <JOSE Baker - Last Filed: 11/28/20 17:58> Active Medications: Current Medications Generic Name Dose Route Start Last Admin Trade Name Freq PRN Reason Stop Dose Admin Acetaminophen 650 mg 11/28/20 17:10 Acetaminophen 325 Mg Tablet PO Q6H PRN Pain, Mild (Pain Scale 1-3) Albuterol/Ipratropium 3 ml 11/28/20 20:00 Albuterol/Iprat 2.5/0.5mg 3 Ml Ampul.Neb INHALE RQ4H WHILE AWAKE GÓMEZ Albuterol/Ipratropium 3 ml 11/28/20 16:43 Albuterol/Iprat 2.5/0.5mg 3 Ml Ampul.Neb INHALE Q6H PRN shortness of breath, wheezing Docusate Sodium 100 mg 11/28/20 17:10 Docusate Sodium 100 Mg Capsule PO DAILY PRN Constipation Enoxaparin Sodium 40 mg 11/28/20 20:00 Enoxaparin Sodium 40 Mg/0.4 Ml Syringe SUBCUT Q24H [facility] Guaifenesin/Dextromethorphan 10 ml 11/28/20 16:43 Guaifenesin Dm 200/20/10 Ml 10 Ml Syrup PO Q6H PRN Cough Lactated Ringer's 1,000 mls @ 100 mls/hr 11/28/20 16:45 Lr IVCONT .Q10H [facility] Azithromycin 500 mg/ Sodium 250 mls @ 125 mls/hr 11/29/20 15:00 Chloride IV Q24H [facility] Ceftriaxone Sodium 1 gm/ 50 mls @ 100 mls/hr 11/29/20 15:00 Sodium Chloride IV Q24H [facility] Methylprednisolone Sodium Succinate 40 mg 11/28/20 22:00 Methylprednisolone Sod Succ 40 Mg/Ml Vial IVPUSH Q12H [facility] Ondansetron HCl 4 mg 11/28/20 17:10 Ondansetron Hcl 4 Mg/2 Ml Vial IVPUSH Q8H PRN Nausea and Vomiting Pharmacy Consult 1 each 11/28/20 15:47 Consult Rx Perform Med Rec MISCELLANE ONCE PRN Consult order Sodium Chloride 3 ml 11/29/20 00:00 0.9 % Sodium Chloride Flush 3 Ml Syringe IVFLUSH QSHIFT [facility] <JOSE Baker - Last Filed: 11/28/20 17:58> Home medications: Home Medications Medication Instructions Recorded Confirmed Last Taken Type azelastine 137 mcg (0.1 %) nasal 1 - 2 spray INTRANASAL BID 05/21/20 11/28/20 Unknown History spray aerosol cholecalciferol (vitamin D3) 50 50 mcg PO DAILY 05/21/20 11/28/20 Unknown History mcg (2,000 unit) tablet cyanocobalamin (vitamin B-12) 1,000 mcg PO QAM 05/21/20 11/28/20 Unknown History 1,000 mcg tablet divalproex 250 mg tablet,extended 250 mg PO BEDTIME 05/21/20 11/28/20 Unknown History release 24 hr fluticasone 250 mcg-salmeterol 50 1 inh INHALATION BID PRN 05/21/20 11/28/20 Unknown History mcg/dose blistr powdr for inhalation fluticasone propionate 50 2 spray INTRANASAL DAILY 05/21/20 11/28/20 Unknown History mcg/actuation nasal spray,suspension loratadine 10 mg tablet 10 mg PO DAILY 05/21/20 11/28/20 Unknown History multivitamin 1 tab PO DAILY 05/21/20 11/28/20 Unknown History ondansetron HCl 4 mg tablet 4 mg PO BID PRN 05/21/20 11/28/20 Unknown History sumatriptan succinate 100 mg tablet 100 mg PO ONCE PRN 05/21/20 11/28/20 Unknown History zafirlukast 20 mg tablet 20 mg PO BID 05/21/20 11/28/20 Unknown History acetaminophen 650 mg 650 mg PO Q6H PRN 07/29/20 11/28/20 Unknown History tablet,extended release clonazepam 1 mg tablet 1 mg PO BID 07/29/20 11/28/20 Unknown History hydroxyzine pamoate 25 mg capsule 25 mg PO BID PRN 07/29/20 11/28/20 Unknown History naproxen 250 mg tablet 250 mg PO BID PRN 07/29/20 11/28/20 Unknown History albuterol sulfate 2 puff PO Q4H PRN 11/28/20 11/28/20 Unknown History docusate sodium 100 mg PO BID 11/28/20 11/28/20 Unknown History sucralfate 1 tab PO QID 11/28/20 11/28/20 Unknown History <JOSE Baker - Last Filed: 11/28/20 17:58> Physical Exam Vital Signs and Narrative: Vital Signs: Last Vital Signs Temp 98.4 F 11/28/20 12:48 Pulse 72 11/28/20 15:05 Resp 18 11/28/20 15:05 BP 100/64 11/28/20 15:05 Pulse Ox 89 L 11/28/20 16:05 Oxygen Flow Rate 2 11/28/20 12:48 Body Mass Index 25.8 <JOSE Baker - Last Filed: 11/28/20 17:58> Const: Nutritional Appearance: well nourished <JOSE Baker - Last Filed: 11/28/20 17:58> Orientation/consciousness: patient oriented x3 <JOSE Baker - Last Filed: 11/28/20 17:58> HENMT: Head: Yes normocephalic and Yes atraumatic <JOSE Baker - Last Filed: 11/28/20 17:58> Eyes: Sclerae: sclerae normal <JOSE Baker - Last Filed: 11/28/20 17:58> Chest: Chest palpation & inspection: normal inspection of the chest <JOSE Baker - Last Filed: 11/28/20 17:58> Resp: Other: Diffuse rhonchi bilaterally <JOSE Baker Last F iled: 11/28/20 17:58> Effort & Inspection: normal respiratory effort <JOSE Baker - Last Filed: 11/28/20 17:58> Cardio: Rate: regular rate <JOSE Baker - Last Filed: 11/28/20 17:58> Rhythm: regular rhythm <JOSE Baker - Last Filed: 11/28/20 17:58> GI: Palpation (GI): Soft to palpation and nontender <JOSE Baker - Last Filed: 11/28/20 17:58> Neuro: General: patient oriented x3 <JOSE Baker - Last Filed: 11/28/20 17:58> Cranial nerves: Yes CN's II-XII intact bilaterally and Yes Bilaterally intact EOM present <JOSE Baker - Last Filed: 11/28/20 17:58> Results Labs CBC and Chem 7: : 12/01/20 06:57 11/29/20 07:21 <JOSE Baker - Last Filed: 11/28/20 17:58> Labs: Laboratory Results - last 24 hr 11/28/20 11/28/20 11/28/20 14:47 14:47 14:47 MCV 84.8 MCH 26.8 L MCHC 31.6 RDW 13.6 Plt Count 344 MPV 8.8 L Immature Gran % (Auto) 0.6 H Neut % (Auto) 92.7 H Lymph % (Auto) 5.7 L [place] % (Auto) 0.9 L Eos % (Auto) 0.0 Baso % (Auto) 0.1 Lymph # (Auto) 0.5 L [place] # (Auto) 0.1 Eos # (Auto) 0.0 Baso # (Auto) 0.0 Abs Immat Gran (auto) 0.06 H Absolute Neuts (auto) 8.6 H Absolute Nucleated RBC 0.000 Nucleated RBC % (auto) 0.0 Smear Tech's Comments VERIFIED PT 11.6 INR 1.0 Anion Gap Estim Creat Clear Calc Estimated GFR Random Glucose Lactic Acid Calcium Magnesium Troponin I High Sens B-Natriuretic Peptide 55 Coronavirus (PCR) Influenza Type A (PCR) Influenza Type B (PCR) RSV RNA Qual (PCR) 11/28/20 11/28/20 11/28/20 14:47 14:47 14:47 MCV MCH MCHC RDW Plt Count MPV Immature Gran % (Auto) Neut % (Auto) Lymph % (Auto) [place] % (Auto) Eos % (Auto) Baso % (Auto) Lymph # (Auto) [place] # (Auto) Eos # (Auto) Baso # (Auto) Abs Immat Gran (auto) Absolute Neuts (auto) Absolute Nucleated RBC Nucleated RBC % (auto) Smear Tech's Comments PT INR Anion Gap 16 Estim Creat Clear Calc 74.5 Estimated GFR > 60 Random Glucose 148 H Lactic Acid Calcium 9.9 Magnesium 2.4 Troponin I High Sens < 3.5 B-Natriuretic Peptide Coronavirus (PCR) NEGATIVE Influenza Type A (PCR) NEGATIVE Influenza Type B (PCR) NEGATIVE RSV RNA Qual (PCR) NEGATIVE 11/28/20 11/28/20 14:47 14:47 MCV MCH MCHC RDW Plt Count MPV Immature Gran % (Auto) Neut % (Auto) Lymph % (Auto) [place] % (Auto) Eos % (Auto) Baso % (Auto) Lymph # (Auto) [place] # (Auto) Eos # (Auto) Baso # (Auto) Abs Immat Gran (auto) Absolute Neuts (auto) Absolute Nucleated RBC Nucleated RBC % (auto) Smear Tech's Comments PT INR Anion Gap Estim Creat Clear Calc Estimated GFR Random Glucose Lactic Acid 3.8 H* Calcium Magnesium Cancelled Troponin I High Sens B-Natriuretic Peptide Coronavirus (PCR) Influenza Type A (PCR) Influenza Type B (PCR) RSV RNA Qual (PCR) <JOSE Baker - Last Filed: 11/28/20 17:58> Imaging Radiologist's Impressions: Impressions Chest X-Ray 11/28/20 13:50 IMPRESSION: Question left base pneumonia. <JOSE Baker - Last Filed: 11/28/20 17:58> Assessment and Plan (1) Acute respiratory failure with hypoxia: Status: Acute <JOSE Baker - Last Filed: 11/28/20 17:58> (2) Acute exacerbation of chronic obstructive airways disease with asthma: Status: Acute <JOSE Baker - Last Filed: 11/28/20 17:58> (3) Community acquired pneumonia: Status: Acute <JOSE Baker - Last Filed: 11/28/20 17:58> This is a 65-year-old Turkish-speaking female with history of anxiety/depression, COPD/asthma who presents to the emergency department with shortness of breath and cough found to have pneumonia and acute exacerbation of COPD/asthma. Acute respiratory failure with hypoxia (Oxygen saturation dropped to 89% on room air) Community-acquired pneumonia Acute exacerbation of COPD/asthma -IV Solu-Medrol -scheduled and as needed breathing treatments -IV ceftriaxone, doxycycline -supplemental oxygen as needed -continue home fluticasone, loratadine Elevated lactic acid Likely secondary to breathing treatments, dehydration No evidence of sepsis -IV fluid Mood -continue clonazepam, Depakote DVT prophylaxis-Lovenox Healthcare proxy-sister Reyna Gonsalves Code status-full code This case was discussed with Dr. Stovall <JOSE Baker - Last Filed: 11/28/20 17:58> Late Entry for 11/28/2020 Attending Attestation: Patient seen and examined independently and I was present during martinez portion of E/M service. Agree with JOSE Newton's history, physical, assessment, and plan. Pt being admitted for copd exacerbation secondary to CAP. IV antibiotics / steroids / updrafts <James Stovall MD - Last Filed: 12/01/20 08:14>
--- NOTE | 2020-11-28 17:57 | PC.NURSE ---
CALLED UP FOR REPORT, AWAITING CALL BACK.
[2020-11-28 20:06] LABS: ~Lactic Acid-LAB USE ONLY 4.2 mmol/L (0.5-2.0)
[2020-11-28] MEDS: Lactated Ringers 1,000 ML 100 ML IVCONT (20:12)
[2020-11-28] MEDS: Cyanocobalamin (Vitamin B-12) 1,000 MCG TABLET 1000 MCG PO (21:10)
[2020-11-28] MEDS: Docusate Sodium 100 MG CAPSULE PO (21:11)
[2020-11-28] MEDS: Sucralfate 1 GM TABLET PO (21:11)
[2020-11-28] MEDS: clonazePAM 1 MG TABLET PO (21:11)
[2020-11-28] MEDS: Divalproex Sodium ER 250 MG TAB.ER.24H PO (21:11)
[2020-11-28] MEDS: methylPREDNISolone Sod Succ 40 MG/ML VIAL IVPUSH (21:12)
[2020-11-28] MEDS: Enoxaparin Sodium 40 MG/0.4 ML SYRINGE SUBCUT (21:14)
[2020-11-28 21:22] LABS: Reflex Lactate? 2 Y
[2020-11-28 22:39] LABS: ~Lactic Acid-LAB USE ONLY 6.5 mmol/L (0.5-2.0)
[2020-11-29] VITALS (12 sets, daily range): BP systolic 102–133; BP diastolic 52–66; PULSE 71–91; RESP 16–19; TEMP 35.5–36.8; O2SAT 92–98
[2020-11-29] MEDS: Lactated Ringers 1,000 ML 100 ML IVCONT ×2 (04:51→17:21)
[2020-11-29] MEDS: Albuterol/Iprat 2.5/0.5MG 3 ML AMPUL.NEB INHALE ×5 (05:30→20:05)
[2020-11-29 07:51] LABS: Hematocrit 34.9 % (37-47); Hemoglobin 10.8 g/dl (12.0-16.0); Mean Corpuscular HGB Conc 30.9 g/dl (31.0-35.0); Mean Corpuscular Hemoglobin 26.2 pg (27.0-33.0); Mean Corpuscular Volume 84.7 fL (80-98); Mean Platelet Volume 9.1 fL (9.4-12.3); Platelet Count 319 X10*3/uL (160-400); Red Blood Count 4.12 X10*6/uL (4.20-5.50); Red Cell Distribution Width 13.5 % (11.0-16.0); White Blood Count 13.5 X10*3/uL (4.8-10.8)
[2020-11-29] MEDS: Multivitamin TABLET 1 TAB PO (08:11)
[2020-11-29] MEDS: clonazePAM 1 MG TABLET PO ×2 (08:11→20:02)
[2020-11-29] MEDS: Docusate Sodium 100 MG CAPSULE PO ×2 (08:12→20:03)
[2020-11-29] MEDS: Fluticasone Propionate Nasal 16 GM SPRAY 2 SPRAY NOSTRIL-B (08:12)
[2020-11-29] MEDS: Cyanocobalamin (Vitamin B-12) 1,000 MCG TABLET 1000 MCG PO (08:12)
[2020-11-29] MEDS: Sucralfate 1 GM TABLET PO ×4 (08:12→20:03)
[2020-11-29] MEDS: Loratadine 10 MG TABLET PO (08:12)
[2020-11-29] MEDS: Omeprazole 20 MG CAPSULE.DR PO (08:12)
[2020-11-29] MEDS: Cholecalciferol (Vitamin D3) 25 MCG TABLET 50 MCG PO (08:12)
[2020-11-29] MEDS: hydrOXYzine HCL 25 MG TABLET PO (08:12)
[2020-11-29 08:26] LABS: Anion Gap 13 (12-20); Blood Urea Nitrogen 15 mg/dL (9-16); Calcium 8.8 mg/dL (8.4-10.2); Carbon Dioxide 23 mmol/L (22-29); Chloride 110 mmol/L (96-108); Creatinine Clr Calc Pharmacy 88.9; Estimated Glomerular Filt Rate > 60; Glucose Random 127 mg/dL (60-115); Potassium 3.7 mmol/L (3.3-5.1); Sodium 142 mmol/L (135-145)
[2020-11-29] MEDS: Doxycycline Hyclate 100 MG in 0.9 % Sodium Chloride 250 ML 166.67 MG IV ×2 (09:12→20:14)
[2020-11-29] MEDS: methylPREDNISolone Sod Succ 40 MG/ML VIAL IVPUSH ×2 (09:12→23:29)
--- NOTE | 2020-11-29 09:34 | HO.PM.IMPN ---
Subjective Subjective Date of Service: 11/29/20 <JOSE Baker - Last Filed: 11/29/20 10:18> 11/29/20 <Magui Verdin MD - Last Filed: 11/29/20 16:07> Interval History: seen and examined this morning follow up for COPD exacerbation/PNA does not feel that she is getting much better ongoing dry cough, breathing feels the same appears very anxious <JOSE Baker - Last Filed: 11/29/20 10:18> Review of Systems Review of Systems: Yes all other systems are reviewed and are negative <JOSE Baker - Last Filed: 11/29/20 10:18> Constitutional Constitutional: Denies chills and Denies fever(s) <JOSE Baker - Last Filed: 11/29/20 10:18> Cardiovascular Cardiovascular: Denies chest pain, Denies palpitations and Reports dyspnea <JOSE Baker - Last Filed: 11/29/20 10:18> Respiratory Respiratory: Reports change in phlegm color, Reports cough and Reports dyspnea <JOSE Baker - Last Filed: 11/29/20 10:18> Gastrointestinal Gastrointestinal: Denies abdominal pain, Denies nausea and Denies vomiting <JOSE Baker Last Filed: 11/29/20 10:18> Endocrine Endocrine: Denies palpitations <JOSE Baker - Last Filed: 11/29/20 10:18> Physical Exam Vital Signs: Vital Signs: Last Vital Signs Temp 96 F L 11/29/20 06:54 Pulse 71 11/29/20 07:42 Resp 18 11/29/20 06:54 BP 133/62 11/29/20 06:54 Pulse Ox 98 11/29/20 06:54 Oxygen Flow Rate 2 11/28/20 12:48 Body Mass Index 25.8 <JOSE Baker Last Filed: 11/29/20 10:18> Const: General: alert, awake and anxious <JOSE Baker Last Filed: 11/29/20 10:18> Nutritional Appearance: well nourished <JOSE Baker - Last Filed: 11/29/20 10:18> Orientation/consciousness: patient oriented x3 <JOSE Baker - Last Filed: 11/29/20 10:18> HENMT: Head: Yes normocephalic and Yes atraumatic <JOSE Baker - Last Filed: 11/29/20 10:18> Eyes: Sclerae: sclerae normal <JOSE Baker - Last Filed: 11/29/20 10:18> Chest: Chest palpation & inspection: normal inspection of the chest <JOSE Baker - Last Filed: 11/29/20 10:18> Resp: Other: bilateral wheezing <JOSE Baker - Last Filed: 11/29/20 10:18> Effort & Inspection: normal respiratory effort <JOSE Baker - Last Filed: 11/29/20 10:18> Cardio: Rate: regular rate <JOSE Baker - Last Filed: 11/29/20 10:18> Rhythm: regular rhythm <JOSE Baker - Last Filed: 11/29/20 10:18> GI: Palpation (GI): Soft to palpation and nontender <JOSE Baker - Last Filed: 11/29/20 10:18> Neuro: General: patient oriented x3 <JOSE Baker - Last Filed: 11/29/20 10:18> Cranial nerves: Yes CN's II-XII intact bilaterally and Yes Bilaterally intact EOM present <JOSE Baker - Last Filed: 11/29/20 10:18> Extrem: Other: no edema <JOSE Baker - Last Filed: 11/29/20 10:18> Objective Data Current Medications Generic Name Dose Route Start Last Admin Trade Name Freq PRN Reason Stop Dose Admin Acetaminophen 650 mg 11/28/20 17:10 Acetaminophen 325 Mg Tablet PO Q6H PRN Pain, Mild (Pain Scale 1-3) Albuterol/Ipratropium 3 ml 11/28/20 20:00 11/29/20 07:46 Albuterol/Iprat 2.5/0.5mg 3 Ml Ampul.Neb INHALE 3 ml RQ4H WHILE AWAKE GÓMEZ Administration Albuterol/Ipratropium 3 ml 11/28/20 16:43 11/29/20 05:30 Albuterol/Iprat 2.5/0.5mg 3 Ml Ampul.Neb INHALE 3 ml Q6H PRN Administration shortness of breath, wheezing Clonazepam 1 mg 11/28/20 21:00 11/29/20 08:11 Clonazepam 1 Mg Tablet PO 1 mg BID GÓMEZ Administration Cyanocobalamin 1,000 mcg 11/28/20 17:45 11/29/20 08:12 Cyanocobalamin (Vitamin B-12) 1,000 Mcg Tablet PO 1,000 mcg DAILY GÓMEZ Administration Divalproex Sodium 250 mg 11/28/20 21:00 11/28/20 21:11 Divalproex Sodium Er 250 Mg Tab.Er.24h PO 250 mg BEDTIME GÓMEZ Administration Docusate Sodium 100 mg 11/28/20 17:10 Docusate Sodium 100 Mg Capsule PO DAILY PRN Constipation Docusate Sodium 100 mg 11/28/20 21:00 11/29/20 08:12 Docusate Sodium 100 Mg Capsule PO 100 mg BID GÓMEZ Administration Enoxaparin Sodium 40 mg 11/28/20 20:00 11/28/20 21:14 Enoxaparin Sodium 40 Mg/0.4 Ml Syringe SUBCUT 40 mg Q24H GÓMEZ Administration Fluticasone Propionate 2 spray 11/29/20 09:00 11/29/20 08:12 Fluticasone Propionate Nasal 16 Gm [place] NOSTRIL-B 2 spray DAILY GÓMEZ Administration Guaifenesin/Dextromethorphan 10 ml 11/28/20 16:43 Guaifenesin Dm 200/20/10 Ml 10 Ml Syrup PO Q6H PRN Cough Hydroxyzine HCl 25 mg 11/28/20 17:34 11/29/20 08:12 Hydroxyzine Hcl 25 Mg Tablet PO 25 mg BID PRN Administration Anxiety Lactated Ringer's 1,000 mls @ 100 mls/hr 11/28/20 16:45 11/29/20 04:51 Lr IVCONT 100 mls/hr .Q10H GÓMEZ Administration Ceftriaxone Sodium 1 gm/ 50 mls @ 100 mls/hr 11/29/20 15:00 Sodium Chloride IV Q24H GÓMEZ Doxycycline Hyclate 100 mg/ 250 mls @ 166.67 mls/hr 11/29/20 09:00 11/29/20 09:12 Sodium Chloride IV 166.67 mls/hr Q12H GÓMEZ Administration Loratadine 10 mg 11/29/20 09:00 11/29/20 08:12 Loratadine 10 Mg Tablet PO 10 mg DAILY GÓMEZ Administration Methylprednisolone Sodium Succinate 40 mg 11/28/20 22:00 11/29/20 09:12 Methylprednisolone Sod Succ 40 Mg/Ml Vial IVPUSH 40 mg Q12H GÓMEZ Administration Multivitamins/Vitamin C 1 tab 11/29/20 09:00 11/29/20 08:11 Multivitamin Tablet PO 1 tab DAILY GÓMEZ Administration Non-Formulary Medication 20 mg 11/28/20 21:00 Zafirlukast PO BID [facility] Omeprazole 20 mg 11/29/20 09:00 11/29/20 08:12 Omeprazole 20 Mg Capsule.Dr PO 20 mg DAILY GÓMEZ Administration Ondansetron HCl 4 mg 11/28/20 17:10 Ondansetron Hcl 4 Mg/2 Ml Vial IVPUSH Q8H PRN Nausea and Vomiting Pharmacy Consult 1 each 11/28/20 15:47 Consult Rx Perform Med Rec MISCELLANE ONCE PRN Consult order Sodium Chloride 3 ml 11/29/20 00:00 11/29/20 07:13 0.9 % Sodium Chloride Flush 3 Ml Syringe IVFLUSH Not Given QSHIFT [facility] Sucralfate 1 gm 11/28/20 21:00 11/29/20 08:12 Sucralfate 1 Gm Tablet PO 1 gm QID GÓMEZ Administration Vitamin D 50 mcg 11/29/20 09:00 11/29/20 08:12 Cholecalciferol (Vitamin D3) 25 Mcg Tablet PO 50 mcg DAILY GÓMEZ Administration <JOSE Baker - Last Filed: 11/29/20 10:18> Labs CBC & Chem 7: : 11/29/20 07:21 11/29/20 07:21 <JOSE Baker - Last Filed: 11/29/20 10:18> Assessment and Plan (1) Acute respiratory failure with hypoxia: Status: Acute <JOSE Baker - Last Filed: 11/29/20 10:18> (2) Acute exacerbation of chronic obstructive airways disease with asthma: Status: Acute <JOSE Baker - Last Filed: 11/29/20 10:18> (3) Community acquired pneumonia: Status: Acute <JOSE Baker - Last Filed: 11/29/20 10:18> Assessment and Plan: This is a 65-year-old Israeli-speaking female with history of anxiety/depression, COPD/asthma who presents to the emergency department with shortness of breath and cough found to be hypoxic secondary to pneumonia and acute exacerbation of COPD/asthma. Acute respiratory failure with hypoxia (Oxygen saturation dropped to 89% on room air) Community-acquired pneumonia Acute exacerbation of COPD/asthma -IV Solu-Medrol -scheduled and as needed breathing treatments -IV ceftriaxone, doxycycline (started 11/28) -continue home fluticasone, loratadine -zafirlukast is NF Elevated lactic acid Likely secondary to breathing treatments, dehydration No evidence of sepsis -Continue IV fluid Mood -continue clonazepam, Depakote Gerd/pud\ -continue omeprazole, sucralfate DVT prophylaxis-Lovenox Healthcare proxy-sister Reyna Gonsalves Code status-full code This case was discussed with Dr. Gaona <JOSE Baker - Last Filed: 11/29/20 10:18>
[2020-11-29] MEDS: cefTRIAXone sodium 1 GM in 0.9 % Sodium Chloride 50 ML IV (15:20)
[2020-11-29] MEDS: 0.9 % Sodium Chloride Flush 3 ML SYRINGE IVFLUSH ×2 (15:20→23:29)
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
[2020-11-29] MEDS: Divalproex Sodium ER 250 MG TAB.ER.24H PO (20:03)
[2020-11-29] MEDS: Enoxaparin Sodium 40 MG/0.4 ML SYRINGE SUBCUT (20:04)
[2020-11-30] VITALS (10 sets, daily range): BP systolic 119–139; BP diastolic 58–65; PULSE 69–93; RESP 14–18; TEMP 36.2–36.8; O2SAT 93–98
[2020-11-30] MEDS: Lactated Ringers 1,000 ML 100 ML IVCONT (02:57)
[2020-11-30] MEDS: Albuterol/Iprat 2.5/0.5MG 3 ML AMPUL.NEB INHALE ×5 (03:53→19:12)
[2020-11-30] MEDS: Cholecalciferol (Vitamin D3) 25 MCG TABLET 50 MCG PO (08:16)
[2020-11-30] MEDS: clonazePAM 1 MG TABLET PO ×2 (08:16→20:49)
[2020-11-30] MEDS: predniSONE 20 MG TABLET 40 MG PO (08:17)
[2020-11-30] MEDS: Loratadine 10 MG TABLET PO (08:17)
[2020-11-30] MEDS: Sucralfate 1 GM TABLET PO ×4 (08:17→20:49)
[2020-11-30] MEDS: Multivitamin TABLET 1 TAB PO (08:17)
[2020-11-30] MEDS: Cyanocobalamin (Vitamin B-12) 1,000 MCG TABLET 1000 MCG PO (08:17)
[2020-11-30] MEDS: Docusate Sodium 100 MG CAPSULE PO ×2 (08:17→20:49)
[2020-11-30] MEDS: Omeprazole 20 MG CAPSULE.DR PO (08:17)
[2020-11-30] MEDS: Doxycycline Hyclate 100 MG in 0.9 % Sodium Chloride 250 ML 166.67 MG IV ×2 (08:18→20:50)
[2020-11-30 08:21] LABS: Hematocrit 35.2 % (37-47); Hemoglobin 11.2 g/dl (12.0-16.0); Mean Corpuscular HGB Conc 31.8 g/dl (31.0-35.0); Mean Corpuscular Hemoglobin 26.8 pg (27.0-33.0); Mean Corpuscular Volume 84.2 fL (80-98); Mean Platelet Volume 9.2 fL (9.4-12.3); Platelet Count 337 X10*3/uL (160-400); Red Blood Count 4.18 X10*6/uL (4.20-5.50); Red Cell Distribution Width 14.1 % (11.0-16.0); White Blood Count 14.2 X10*3/uL (4.8-10.8)
[2020-11-30] MEDS: Fluticasone Propionate Nasal 16 GM SPRAY 2 SPRAY NOSTRIL-B (08:22)
[2020-11-30 09:14] LABS: Lactic Acid 3.3 mmol/L (0.5-2.0)
[2020-11-30 10:12] LABS: Reflex Lactate? Lactic Acid Added
--- NOTE | 2020-11-30 10:39 | HO.PM.IMPN ---
Subjective Subjective Date of Service: 11/30/20 <JOSE Baker - Last Filed: 11/30/20 11:17> 11/30/20 <Magui Verdin MD - Last Filed: 11/30/20 13:20> Interval History: seen in follow up this morning. had an episode of coughing and shortness of breath early this morning still coughing and feeling short of breath <JOSE Baker - Last Filed: 11/30/20 11:17> Review of Systems Review of Systems: Yes all other systems are reviewed and are negative <JOSE Baker - Last Filed: 11/30/20 11:17> Constitutional Constitutional: Denies chills and Denies fever(s) <JOSE Baker - Last Filed: 11/30/20 11:17> Cardiovascular Cardiovascular: Denies chest pain <JOSE Baker - Last Filed: 11/30/20 11:17> Respiratory Respiratory: Reports cough <JOSE Baker - Last Filed: 11/30/20 11:17> shortness of breath <JOSE Baker - Last Filed: 11/30/20 11:17> Gastrointestinal Gastrointestinal: Denies abdominal pain <JOSE Baker - Last Filed: 11/30/20 11:17> Physical Exam Vital Signs: Vital Signs: Last Vital Signs Temp 97.2 F 11/30/20 08:00 Pulse 88 11/30/20 08:00 Resp 18 11/30/20 08:00 BP 139/65 11/30/20 08:00 Pulse Ox 95 11/30/20 08:00 Oxygen Flow Rate 2 11/28/20 12:48 Body Mass Index 25.8 <JOSE Baker - Last Filed: 11/30/20 11:17> Const: General: alert and awake <JOSE Baker - Last Filed: 11/30/20 11:17> Nutritional Appearance: well nourished <JOSE Baker - Last Filed: 11/30/20 11:17> Orientation/consciousness: patient oriented x3 <JOSE Baker - Last Filed: 11/30/20 11:17> HENMT: Head: Yes normocephalic and Yes atraumatic <JOSE Baker - Last Filed: 11/30/20 11:17> Eyes: Sclerae: sclerae normal <JOSE Baker - Last Filed: 11/30/20 11:17> Chest: Chest palpation & inspection: normal inspection of the chest <JOSE Baker - Last Filed: 11/30/20 11:17> Resp: Other: expiratory rhonchi <JOSE Baker - Last Filed: 11/30/20 11:17> Effort & Inspection: normal respiratory effort <JOSE Baker - Last Filed: 11/30/20 11:17> Cardio: Rate: regular rate <JOSE Baker - Last Filed: 11/30/20 11:17> Rhythm: regular rhythm <JOSE Baker - Last Filed: 11/30/20 11:17> GI: Palpation (GI): Soft to palpation and nontender <JOSE Baker - Last Filed: 11/30/20 11:17> Neuro: General: patient oriented x3 <JOSE Baker - Last Filed: 11/30/20 11:17> Cranial nerves: Yes CN's II-XII intact bilaterally and Yes Bilaterally intact EOM present <JOSE Baker - Last Filed: 11/30/20 11:17> Extrem: Other: no edema <JOSE Baker - Last Filed: 11/30/20 11:17> Objective Data Current Medications Generic Name Dose Route Start Last Admin Trade Name Freq PRN Reason Stop Dose Admin Acetaminophen 650 mg 11/28/20 17:10 Acetaminophen 325 Mg Tablet PO Q6H PRN Pain, Mild (Pain Scale 1-3) Albuterol/Ipratropium 3 ml 11/28/20 20:00 11/30/20 07:25 Albuterol/Iprat 2.5/0.5mg 3 Ml Ampul.Neb INHALE 3 ml RQ4H WHILE AWAKE GÓMEZ Administration Albuterol/Ipratropium 3 ml 11/29/20 10:11 11/30/20 03:53 Albuterol/Iprat 2.5/0.5mg 3 Ml Ampul.Neb INHALE 3 ml Q4H PRN Administration shortness of breath, wheezing Clonazepam 1 mg 11/28/20 21:00 11/30/20 08:16 Clonazepam 1 Mg Tablet PO 1 mg BID GÓMEZ Administration Cyanocobalamin 1,000 mcg 11/28/20 17:45 11/30/20 08:17 Cyanocobalamin (Vitamin B-12) 1,000 Mcg Tablet PO 1,000 mcg DAILY GÓMEZ Administration Divalproex Sodium 250 mg 11/28/20 21:00 11/29/20 20:03 Divalproex Sodium Er 250 Mg Tab.Er.24h PO 250 mg BEDTIME GÓMEZ Administration Docusate Sodium 100 mg 11/28/20 17:10 Docusate Sodium 100 Mg Capsule PO DAILY PRN Constipation Docusate Sodium 100 mg 11/28/20 21:00 11/30/20 08:17 Docusate Sodium 100 Mg Capsule PO 100 mg BID GÓMEZ Administration Enoxaparin Sodium 40 mg 11/28/20 20:00 11/29/20 20:04 Enoxaparin Sodium 40 Mg/0.4 Ml Syringe SUBCUT 40 mg Q24H GÓMEZ Administration Fluticasone Propionate 2 spray 11/29/20 09:00 11/30/20 08:22 Fluticasone Propionate Nasal 16 Gm [employer] NOSTRIL-B 2 spray DAILY GÓMEZ Administration Guaifenesin/Dextromethorphan 10 ml 11/28/20 16:43 Guaifenesin Dm 200/20/10 Ml 10 Ml Syrup PO Q6H PRN Cough Hydroxyzine HCl 25 mg 11/28/20 17:34 11/29/20 08:12 Hydroxyzine Hcl 25 Mg Tablet PO 25 mg BID PRN Administration Anxiety Ceftriaxone Sodium 1 gm/ 50 mls @ 100 mls/hr 11/29/20 15:00 11/29/20 15:49 Sodium Chloride IV Infused Q24H GÓMEZ Infusion Doxycycline Hyclate 100 mg/ 250 mls @ 166.67 mls/hr 11/29/20 09:00 11/30/20 09:48 Sodium Chloride IV Infused Q12H GÓMEZ Infusion Loratadine 10 mg 11/29/20 09:00 11/30/20 08:17 Loratadine 10 Mg Tablet PO 10 mg DAILY GÓMEZ Administration Multivitamins/Vitamin C 1 tab 11/29/20 09:00 11/30/20 08:17 Multivitamin Tablet PO 1 tab DAILY GÓMEZ Administration Non-Formulary Medication 20 mg 11/28/20 21:00 Zafirlukast PO BID [facility] Omeprazole 20 mg 11/29/20 09:00 11/30/20 08:17 Omeprazole 20 Mg Capsule.Dr PO 20 mg DAILY GÓMEZ Administration Ondansetron HCl 4 mg 11/28/20 17:10 Ondansetron Hcl 4 Mg/2 Ml Vial IVPUSH Q8H PRN Nausea and Vomiting Pharmacy Consult 1 each 11/28/20 15:47 Consult Rx Perform Med Rec MISCELLANE ONCE PRN Consult order Prednisone 40 mg 11/30/20 09:00 11/30/20 08:17 Prednisone 20 Mg Tablet PO 40 mg DAILY GÓMEZ Administration Sodium Chloride 3 ml 11/29/20 00:00 11/30/20 07:09 0.9 % Sodium Chloride Flush 3 Ml Syringe IVFLUSH Not Given QSHIFT [facility] Sucralfate 1 gm 11/28/20 21:00 11/30/20 08:17 Sucralfate 1 Gm Tablet PO 1 gm QID GÓMEZ Administration Vitamin D 50 mcg 11/29/20 09:00 11/30/20 08:16 Cholecalciferol (Vitamin D3) 25 Mcg Tablet PO 50 mcg DAILY GÓMEZ Administration <JOSE Baker - Last Filed: 11/30/20 11:17> Labs CBC & Chem 7: : 11/30/20 08:02 11/29/20 07:21 <JOSE Baker - Last Filed: 11/30/20 11:17> Microbiology Microbiology Results: Microbiology 11/28/20 14:47 Blood - Venous Blood Culture - Preliminary No growth after 24 hours. 11/28/20 14:47 Blood - Venous Blood Culture - Preliminary No growth after 24 hours. <JOSE Baker Last Filed: 11/30/20 11:17> Assessment and Plan (1) Acute respiratory failure with hypoxia: Status: Acute <JOSE Baker Last Filed: 11/30/20 11:17> (2) Acute exacerbation of chronic obstructive airways disease with asthma: Status: Acute <JOSE Baker Last Filed: 11/30/20 11:17> (3) Community acquired pneumonia: Status: Acute <JOSE Baker - Last Filed: 11/30/20 11:17> Assessment and Plan: This is a 65-year-old Divehi-speaking female with history of anxiety/depression, COPD/asthma who presents to the emergency department with shortness of breath and cough found to be hypoxia secondary to pneumonia and acute exacerbation of COPD/asthma. Acute respiratory failure with hypoxia (Oxygen saturation dropped to 89% on room air on admission) Community-acquired pneumonia Acute exacerbation of COPD/asthma -transition to PO prednisone -scheduled and as needed breathing treatments -IV ceftriaxone, doxycycline (started 11/28) -continue home fluticasone, loratadine -zafirlukast is NF Elevated lactic acid Likely secondary to breathing treatments, dehydration No evidence of sepsis Leukocytosis is related to steroids not sepsis Mood -continue clonazepam, Depakote Gerd/pud -continue omeprazole, sucralfate DVT prophylaxis-[facility] Healthcare proxy-sister Reyna Gonsalves Code status-full code Attending: Dr. Gaona <JOSE Baker - Last Filed: 11/30/20 11:17>
[2020-11-30 10:57] LABS: ~Lactic Acid-LAB USE ONLY 4.5 mmol/L (0.5-2.0)
[2020-11-30 12:26] LABS: Reflex Lactate? 2 Y
[2020-11-30 13:28] LABS: Cancel Lactic Acid Canceled
[2020-11-30 13:57] LABS: ~Lactic Acid-LAB USE ONLY 3.4 mmol/L (0.5-2.0)
[2020-11-30] MEDS: cefTRIAXone sodium 1 GM in 0.9 % Sodium Chloride 50 ML IV (14:51)
[2020-11-30] MEDS: 0.9 % Sodium Chloride Flush 3 ML SYRINGE IVFLUSH ×2 (14:52→20:50)
[2020-11-30] MEDS: Divalproex Sodium ER 250 MG TAB.ER.24H PO (20:49)
[2020-11-30] MEDS: Enoxaparin Sodium 40 MG/0.4 ML SYRINGE SUBCUT (20:50)
[2020-12-01] VITALS (12 sets, daily range): BP systolic 103–137; BP diastolic 59–71; PULSE 65–89; RESP 16–22; TEMP 36.1–37; O2SAT 94–99
[2020-12-01] MEDS: guaiFENesin DM 200/20/10 ML 10 ML SYRUP PO ×2 (05:34→12:17)
[2020-12-01] MEDS: Albuterol/Iprat 2.5/0.5MG 3 ML AMPUL.NEB INHALE ×4 (06:10→20:11)
[2020-12-01 07:28] LABS: Hematocrit 36.7 % (37-47); Hemoglobin 11.6 g/dl (12.0-16.0); Mean Corpuscular HGB Conc 31.6 g/dl (31.0-35.0); Mean Corpuscular Hemoglobin 26.2 pg (27.0-33.0); Mean Corpuscular Volume 82.8 fL (80-98); Mean Platelet Volume 9.2 fL (9.4-12.3); Platelet Count 341 X10*3/uL (160-400); Red Blood Count 4.43 X10*6/uL (4.20-5.50); White Blood Count 12.2 X10*3/uL (4.8-10.8)
[2020-12-01] MEDS: Loratadine 10 MG TABLET PO (08:06)
[2020-12-01] MEDS: 0.9 % Sodium Chloride Flush 3 ML SYRINGE IVFLUSH ×3 (08:06→20:18)
[2020-12-01] MEDS: predniSONE 20 MG TABLET 40 MG PO (08:06)
[2020-12-01] MEDS: Multivitamin TABLET 1 TAB PO (08:06)
[2020-12-01] MEDS: clonazePAM 1 MG TABLET PO ×2 (08:06→20:17)
[2020-12-01] MEDS: Cholecalciferol (Vitamin D3) 25 MCG TABLET 50 MCG PO (08:06)
[2020-12-01] MEDS: Docusate Sodium 100 MG CAPSULE PO ×2 (08:07→20:17)
[2020-12-01] MEDS: Cyanocobalamin (Vitamin B-12) 1,000 MCG TABLET 1000 MCG PO (08:07)
[2020-12-01] MEDS: Doxycycline Hyclate 100 MG in 0.9 % Sodium Chloride 250 ML 166.67 MG IV (08:07)
[2020-12-01] MEDS: Omeprazole 20 MG CAPSULE.DR PO (08:07)
[2020-12-01] MEDS: Sucralfate 1 GM TABLET PO ×4 (08:09→20:17)
[2020-12-01 08:13] LABS: Anion Gap 14 (12-20); Blood Urea Nitrogen 15 mg/dL (9-16); Carbon Dioxide 25 mmol/L (22-29); Chloride 107 mmol/L (96-108); Creatinine Clr Calc Pharmacy 83.9; Estimated Glomerular Filt Rate > 60; Glucose Random 77 mg/dL (60-115); Potassium 3.3 mmol/L (3.3-5.1); Sodium 143 mmol/L (135-145)
[2020-12-01] MEDS: Fluticasone Propionate Nasal 16 GM SPRAY 2 SPRAY NOSTRIL-B (08:13)
--- NOTE | 2020-12-01 12:59 | P.CONPL_ITS ---
History of Present Illness History of Present Illness Consult date: 12/01/20 Chief complaint: PNA COPD Narrative: This is a pulmonary consultation. This is a 64-year-old woman with a known history of COPD followed closely by Dr. Langley from Pulmonary. Last seen back in September when she was in stable condition. Now the patient presents with worsening respiratory symptoms. Initially she came in was evaluated in the ER and sent home on prednisone taper and antibiotics. However his symptoms were getting worse. She complains of increasing chest tightness and wheezing along with significant coughing episodes and shortness of breath. Moderate severity. She came back to the ER where she had a pulse ox of 89% on room air. Her chest x-ray also demonstrated a left lower lobe opacity suggesting community-acquired pneumonia. The patient was admitted to the hospital placed on IV steroids and also IV antibiotics. She also been placed on oxygen. She is starting to feel better. Her cough is still barking nature. She denies any sick contacts in her COVID-19 testing was negative. Clinically the patient has been feeling better. Review of Systems Constitutional: Constitutional: Denies night sweats ENT: Denies change in voice, Denies lip swelling, Denies mouth pain, Reports nasal congestion, Reports nasal discharge and Denies tongue swelling Cardiovascular: Cardiovascular: Denies chest pain and Reports dyspnea Respiratory: Respiratory: Reports cough, Reports dyspnea and Reports wheezing Gastrointestinal: Gastrointestinal: Denies abdominal pain Musculoskeletal: Musculoskeletal: Denies no additional musculoskeletal complaints Neurologic: Denies Neuro-related abnormal movements Psychiatric: Psychiatric: Denies no additional psychiatric complaints Hematologic/Lymphatic: Hematologic/Lymphatic: Denies easy bleeding and Denies lymphadenopathy Allergic/Immunologic: Allergic/Immunologic: Denies lip swelling, Denies tongue swelling and Reports wheezing PMFSH Past Medical History Medical History (Updated 12/01/20 @ 13:05 by Tyrese Garcia MD) Allergic rhinitis Anxiety COPD (chronic obstructive pulmonary disease) Functional capacity: independent ambulation Family History Family History Father Diabetes Mother Diabetes Osteoporosis HTN (hypertension) Sister Pancreas cancer Surgical History Surgical History History of ear surgery History of esophagogastroduodenoscopy (EGD) History of right knee joint replacement Hx of colonoscopy Social History Social History (Updated 11/28/20 @ 17:28 by JOSE Baker) Household Members: Family Housing: Apartment Alcohol intake: never Smoking Status: Never smoker Use of substances other than those prescribed or required for medical reasons: No Currently Displaying Signs/Symptoms of Drug Intoxication Withdrawal: No Have you been hit, kicked, punched, or otherwise hurt by someone within the past year? If so, by whom?: No Do you feel safe in your current relationship?: No Current Relationship Is there a partner from a previous relationship who is making you feel unsafe now?: No Are you made to feel afraid or neglected: No Advance Directives: Yes Advance Directives Information Provided: Yes Advance Directives on File: No Advance Directives Date on File: 11/28/20 Do you have thoughts of harming others: None Do you have a plan to hurt others: No Plan Recently lost weight without trying: Unsure Eating poorly because of decreased appetite: Yes Nutrition Risks: No Nutritional Risk Patient : No : No Poor oral hygiene: No service: No Current occupational status: unemployed Meds Allergies Allergy/AdvReac Type Severity Reaction Status Date / Time vancomycin [VANCOMYCIN] Allergy Severe REDNESS,ANDI Verified 10/28/20 13:30 H,SWELLING Tetanus & Diphtheria Allergy Severe FEVER,DIFF. Uncoded 03/27/20 16:18 Tox,Adult BREATHING Active Medications: Current Medications Generic Name Dose Route Start Last Admin Trade Name Freq PRN Reason Stop Dose Admin Acetaminophen 650 mg 11/28/20 17:10 Acetaminophen 325 Mg Tablet PO Q6H PRN Pain, Mild (Pain Scale 1-3) Albuterol/Ipratropium 3 ml 11/28/20 20:00 12/01/20 11:31 Albuterol/Iprat 2.5/0.5mg 3 Ml Ampul.Neb INHALE 3 ml RQ4H WHILE AWAKE GÓMEZ Administration Albuterol/Ipratropium 3 ml 11/29/20 10:11 12/01/20 06:10 Albuterol/Iprat 2.5/0.5mg 3 Ml Ampul.Neb INHALE 3 ml Q4H PRN Administration shortness of breath, wheezing Clonazepam 1 mg 11/28/20 21:00 12/01/20 08:06 Clonazepam 1 Mg Tablet PO 1 mg BID GÓMEZ Administration Cyanocobalamin 1,000 mcg 11/28/20 17:45 12/01/20 08:07 Cyanocobalamin (Vitamin B-12) 1,000 Mcg Tablet PO 1,000 mcg DAILY GÓMEZ Administration Divalproex Sodium 250 mg 11/28/20 21:00 11/30/20 20:49 Divalproex Sodium Er 250 Mg Tab.Er.24h PO 250 mg BEDTIME GÓMEZ Administration Docusate Sodium 100 mg 11/28/20 17:10 Docusate Sodium 100 Mg Capsule PO DAILY PRN Constipation Docusate Sodium 100 mg 11/28/20 21:00 12/01/20 08:07 Docusate Sodium 100 Mg Capsule PO 100 mg BID GÓMEZ Administration Enoxaparin Sodium 40 mg 11/28/20 20:00 11/30/20 20:50 Enoxaparin Sodium 40 Mg/0.4 Ml Syringe SUBCUT 40 mg Q24H GÓMEZ Administration Fluticasone Propionate 2 spray 11/29/20 09:00 12/01/20 08:13 Fluticasone Propionate Nasal 16 Gm [place] NOSTRIL-B 2 spray DAILY GÓMEZ Administration Guaifenesin/Dextromethorphan 10 ml 11/28/20 16:43 12/01/20 12:17 Guaifenesin Dm 200/20/10 Ml 10 Ml Syrup PO 10 ml Q6H PRN Administration Cough Hydroxyzine HCl 25 mg 11/28/20 17:34 11/29/20 08:12 Hydroxyzine Hcl 25 Mg Tablet PO 25 mg BID PRN Administration Anxiety Ceftriaxone Sodium 1 gm/ 50 mls @ 100 mls/hr 11/29/20 15:00 11/30/20 15:26 Sodium Chloride IV Infused Q24H GÓMEZ Infusion Doxycycline Hyclate 100 mg/ 250 mls @ 166.67 mls/hr 11/29/20 09:00 12/01/20 10:15 Sodium Chloride IV Infused Q12H GÓMEZ Infusion Loratadine 10 mg 11/29/20 09:00 12/01/20 08:06 Loratadine 10 Mg Tablet PO 10 mg DAILY GÓMEZ Administration Multivitamins/Vitamin C 1 tab 11/29/20 09:00 12/01/20 08:06 Multivitamin Tablet PO 1 tab DAILY GÓMEZ Administration Non-Formulary Medication 20 mg 11/28/20 21:00 Zafirlukast PO BID GÓMEZ Omeprazole 20 mg 11/29/20 09:00 12/01/20 08:07 Omeprazole 20 Mg Capsule. PO 20 mg DAILY GÓMEZ Administration Ondansetron HCl 4 mg 11/28/20 17:10 Ondansetron Hcl 4 Mg/2 Ml Vial IVPUSH Q8H PRN Nausea and Vomiting Pharmacy Consult 1 each 11/28/20 15:47 Consult Rx Perform Med Rec MISCELLANE ONCE PRN Consult order Prednisone 40 mg 11/30/20 09:00 12/01/20 08:06 Prednisone 20 Mg Tablet PO 40 mg DAILY GÓMEZ Administration Sodium Chloride 3 ml 11/29/20 00:00 12/01/20 08:06 0.9 % Sodium Chloride Flush 3 Ml Syringe IVFLUSH 3 ml QSHIFT GÓMEZ Administration Sucralfate 1 gm 11/28/20 21:00 12/01/20 12:15 Sucralfate 1 Gm Tablet PO 1 gm QID GÓMEZ Administration Vitamin D 50 mcg 11/29/20 09:00 12/01/20 08:06 Cholecalciferol (Vitamin D3) 25 Mcg Tablet PO 50 mcg DAILY GÓMEZ Administration Home Medications Medication Instructions Recorded Confirmed Last Taken Type azelastine 137 mcg (0.1 %) nasal 1 - 2 spray INTRANASAL BID 05/21/20 11/28/20 Unknown History spray aerosol cholecalciferol (vitamin D3) 50 50 mcg PO DAILY 05/21/20 11/28/20 Unknown History mcg (2,000 unit) tablet cyanocobalamin (vitamin B-12) 1,000 mcg PO QAM 05/21/20 11/28/20 Unknown History 1,000 mcg tablet divalproex 250 mg tablet,extended 250 mg PO BEDTIME 05/21/20 11/28/20 Unknown History release 24 hr fluticasone 250 mcg-salmeterol 50 1 inh INHALATION BID PRN 05/21/20 11/28/20 Unknown History mcg/dose blistr powdr for inhalation fluticasone propionate 50 2 spray INTRANASAL DAILY 05/21/20 11/28/20 Unknown History mcg/actuation nasal spray,suspension loratadine 10 mg tablet 10 mg PO DAILY 05/21/20 11/28/20 Unknown History multivitamin 1 tab PO DAILY 05/21/20 11/28/20 Unknown History ondansetron HCl 4 mg tablet 4 mg PO BID PRN 05/21/20 11/28/20 Unknown History sumatriptan succinate 100 mg tablet 100 mg PO ONCE PRN 05/21/20 11/28/20 Unknown History zafirlukast 20 mg tablet 20 mg PO BID 05/21/20 11/28/20 Unknown History acetaminophen 650 mg 650 mg PO Q6H PRN 07/29/20 11/28/20 Unknown History tablet,extended release clonazepam 1 mg tablet 1 mg PO BID 07/29/20 11/28/20 Unknown History hydroxyzine pamoate 25 mg capsule 25 mg PO BID PRN 07/29/20 11/28/20 Unknown History naproxen 250 mg tablet 250 mg PO BID PRN 07/29/20 11/28/20 Unknown History albuterol sulfate 2 puff PO Q4H PRN 11/28/20 11/28/20 Unknown History docusate sodium 100 mg PO BID 11/28/20 11/28/20 Unknown History sucralfate 1 tab PO QID 11/28/20 11/28/20 Unknown History Physical Exam Vital Signs: Vital Signs: Last Vital Signs Temp 97.2 F 12/01/20 08:00 Pulse 80 12/01/20 11:33 Resp 16 12/01/20 08:00 BP 125/63 12/01/20 08:00 Pulse Ox 94 12/01/20 08:00 Oxygen Flow Rate 2 11/28/20 12:48 Body Mass Index 25.8 Const: General: alert Eyes: Pupils: Equal, round and reactive pupils present Neck: Neck: Yes normal visual inspection, Yes full ROM and Yes no lymphadenopathy Chest: Chest palpation & inspection: normal inspection of the chest Resp: Auscultation: rhonchi and diminished lung sounds Cardio: Rate: regular rate Rhythm: regular rhythm Heart sounds: S1 normal heart sound present and S2 normal heart sound present GI: Palpation (GI): Soft to palpation and nontender Auscultation: normal bowel sounds : General: Yes no CVA tenderness Back/Spine/Pelvis: Back: no CVA tenderness Skin: General skin exam: rashes and/or lesions noted Neuro: Cranial nerves: Yes Equal, round and reactive pupils present Results Laboratory Findings CBC and BMP: 12/01/20 06:57 12/01/20 06:57 ABG, PT/INR, D-dimer: PT/INR, D-dimer PT 11.6 SEC (10.8-13.0) 11/28/20 14:47 INR 1.0 (0.9-1.1) 11/28/20 14:47 Abnormal lab findings: Abnormal Labs 11/28/20 11/28/20 11/28/20 14:47 14:47 14:47 WBC RBC Hgb Hct MCH 26.8 L MCHC MPV 8.8 L Immature Gran % (Auto) 0.6 H Neut % (Auto) 92.7 H Lymph % (Auto) 5.7 L [place] % (Auto) 0.9 L Lymph # (Auto) 0.5 L Abs Immat Gran (auto) 0.06 H Absolute Neuts (auto) 8.6 H Chloride Random Glucose 148 H Lactic Acid 3.8 H* Lactic Acid Fup @ 2Hr Lactic Acid Fup @ 4Hr 11/28/20 11/28/20 11/29/20 19:18 21:40 07:21 WBC 13.5 H RBC 4.12 L Hgb 10.8 L Hct 34.9 L MCH 26.2 L MCHC 30.9 L MPV 9.1 L Immature Gran % (Auto) Neut % (Auto) Lymph % (Auto) [place] % (Auto) Lymph # (Auto) Abs Immat Gran (auto) Absolute Neuts (auto) Chloride Random Glucose Lactic Acid Lactic Acid Fup @ 2Hr 4.2 H* Lactic Acid Fup @ 4Hr 6.5 H* 11/29/20 11/30/20 11/30/20 07:21 08:02 08:02 WBC 14.2 H RBC 4.18 L Hgb 11.2 L Hct 35.2 L MCH 26.8 L MCHC MPV 9.2 L Immature Gran % (Auto) Neut % (Auto) Lymph % (Auto) [place] % (Auto) Lymph # (Auto) Abs Immat Gran (auto) Absolute Neuts (auto) Chloride 110 H Random Glucose 127 H Lactic Acid 3.3 H* Lactic Acid Fup @ 2Hr Lactic Acid Fup @ 4Hr 11/30/20 11/30/20 12/01/20 10:21 12:43 06:57 WBC 12.2 H RBC Hgb 11.6 L Hct 36.7 L MCH 26.2 L MCHC MPV 9.2 L Immature Gran % (Auto) Neut % (Auto) Lymph % (Auto) [place] % (Auto) Lymph # (Auto) Abs Immat Gran (auto) Absolute Neuts (auto) Chloride Random Glucose Lactic Acid Lactic Acid Fup @ 2Hr 4.5 H* Lactic Acid Fup @ 4Hr 3.4 H* Microbiology: Microbiology 11/28/20 14:47 Blood - Venous Blood Culture - Preliminary No growth after 48 hours. 11/28/20 14:47 Blood - Venous Blood Culture - Preliminary No growth after 48 hours. Assessment and Plan (1) Community acquired pneumonia: Qualifiers: Laterality: left Lung location: lower lobe of lung Qualified Code(s): J18.9 - Pneumonia, unspecified organism Status: Acute (2) Acute exacerbation of chronic obstructive airways disease with asthma: Status: Acute (3) Acute respiratory failure with hypoxia: Status: Acute Likely the patient has a component of tracheobronchomalacia he chronic bronchitis Continue DuoNebs q.i.d. even at home CPT with flutter valve after her DuoNebs Continue with home respiratory regimen Okay to switch to p.o. prednisone finished a taper Could consider switching over to Augmentin to complete an 8 day course of a ntibiotics. Wean oxygen to keep pulse ox above 90%. She may need to be discharged on oxygen specially with activity. Will make sure she has follow-up with Pulmonary as an outpatient and is couple w margy Procedures Date of Service Date of Service: 12/01/20
[2020-12-01] MEDS: cefTRIAXone sodium 1 GM in 0.9 % Sodium Chloride 50 ML IV (14:10)
--- NOTE | 2020-12-01 14:54 | HO.PM.IMPN ---
Subjective Subjective Date of Service: 12/01/20 Interval History: the patient was seen and evaluated this morning Laying in bed, feels tired and lethargic with complain of wheezing and difficulty breathing Denies any fever, chills or chest pain No reported other overnight events. Systemic review: No fever, chills but reporting generalized weakness No chest pain, palpitation Increased wheezing and nausea in the chest, dyspnea on exertion No abdominal pain, nausea or vomiting No urinary symptoms No any rash or wounds Physical Exam Vital Signs: Vital Signs: Last Vital Signs Temp 97.8 F 12/01/20 12:00 Pulse 76 12/01/20 12:00 Resp 17 12/01/20 12:00 BP 124/62 12/01/20 12:00 Pulse Ox 94 12/01/20 12:00 Oxygen Flow Rate 2 11/28/20 12:48 Body Mass Index 25.8 Const: Other: Constitutional : Alert, oriented, not in distress Neck : Normal inspection, Supple Cardiovascular : RRR, S1 S2, no lower extremity edema Respiratory : Decreased bilateral air entry, bilateral scattered wheezes and rhonchi with fine basal crackles Gastrointestinal: soft, lax, Normal bowel sounds, Non tender Skin : Warm/Dry, No rash Neurological : Alert & oriented x3, No focal deficit Objective Data Current Medications Generic Name Dose Route Start Last Admin Trade Name Freq PRN Reason Stop Dose Admin Acetaminophen 650 mg 11/28/20 17:10 Acetaminophen 325 Mg Tablet PO Q6H PRN Pain, Mild (Pain Scale 1-3) Albuterol/Ipratropium 3 ml 11/28/20 20:00 12/01/20 11:31 Albuterol/Iprat 2.5/0.5mg 3 Ml Ampul.Neb INHALE 3 ml RQ4H WHILE AWAKE GÓMEZ Administration Albuterol/Ipratropium 3 ml 11/29/20 10:11 12/01/20 06:10 Albuterol/Iprat 2.5/0.5mg 3 Ml Ampul.Neb INHALE 3 ml Q4H PRN Administration shortness of breath, wheezing Clonazepam 1 mg 11/28/20 21:00 12/01/20 08:06 Clonazepam 1 Mg Tablet PO 1 mg BID GÓMEZ Administration Cyanocobalamin 1,000 mcg 11/28/20 17:45 12/01/20 08:07 Cyanocobalamin (Vitamin B-12) 1,000 Mcg Tablet PO 1,000 mcg DAILY GÓMEZ Administration Divalproex Sodium 250 mg 11/28/20 21:00 11/30/20 20:49 Divalproex Sodium Er 250 Mg Tab.Er.24h PO 250 mg BEDTIME GÓMEZ Administration Docusate Sodium 100 mg 11/28/20 17:10 Docusate Sodium 100 Mg Capsule PO DAILY PRN Constipation Docusate Sodium 100 mg 11/28/20 21:00 12/01/20 08:07 Docusate Sodium 100 Mg Capsule PO 100 mg BID GÓMEZ Administration Enoxaparin Sodium 40 mg 11/28/20 20:00 11/30/20 20:50 Enoxaparin Sodium 40 Mg/0.4 Ml Syringe SUBCUT 40 mg Q24H GÓMEZ Administration Fluticasone Propionate 2 spray 11/29/20 09:00 12/01/20 08:13 Fluticasone Propionate Nasal 16 Gm [place] NOSTRIL-B 2 spray DAILY GÓMEZ Administration Guaifenesin/Dextromethorphan 10 ml 11/28/20 16:43 12/01/20 12:17 Guaifenesin Dm 200/20/10 Ml 10 Ml Syrup PO 10 ml Q6H PRN Administration Cough Hydroxyzine HCl 25 mg 11/28/20 17:34 11/29/20 08:12 Hydroxyzine Hcl 25 Mg Tablet PO 25 mg BID PRN Administration Anxiety Ceftriaxone Sodium 1 gm/ 50 mls @ 100 mls/hr 11/29/20 15:00 12/01/20 14:52 Sodium Chloride IV Infused Q24H GÓMEZ Infusion Doxycycline Hyclate 100 mg/ 250 mls @ 166.67 mls/hr 11/29/20 09:00 12/01/20 10:15 Sodium Chloride IV Infused Q12H GÓMEZ Infusion Loratadine 10 mg 11/29/20 09:00 12/01/20 08:06 Loratadine 10 Mg Tablet PO 10 mg DAILY GÓMEZ Administration Multivitamins/Vitamin C 1 tab 11/29/20 09:00 12/01/20 08:06 Multivitamin Tablet PO 1 tab DAILY GÓMEZ Administration Non-Formulary Medication 20 mg 11/28/20 21:00 Zafirlukast PO BID GÓMEZ Omeprazole 20 mg 11/29/20 09:00 12/01/20 08:07 Omeprazole 20 Mg Capsule.Dr PO 20 mg DAILY GÓMEZ Administration Ondansetron HCl 4 mg 11/28/20 17:10 Ondansetron Hcl 4 Mg/2 Ml Vial IVPUSH Q8H PRN Nausea and Vomiting Pharmacy Consult 1 each 11/28/20 15:47 Consult Rx Perform Med Rec MISCELLANE ONCE PRN Consult order Prednisone 40 mg 11/30/20 09:00 12/01/20 08:06 Prednisone 20 Mg Tablet PO 40 mg DAILY GÓMEZ Administration Sodium Chloride 3 ml 11/29/20 00:00 12/01/20 14:51 0.9 % Sodium Chloride Flush 3 Ml Syringe IVFLUSH 3 ml QSHIFT GÓMEZ Administration Sucralfate 1 gm 11/28/20 21:00 12/01/20 12:15 Sucralfate 1 Gm Tablet PO 1 gm QID GÓMEZ Administration Vitamin D 50 mcg 11/29/20 09:00 12/01/20 08:06 Cholecalciferol (Vitamin D3) 25 Mcg Tablet PO 50 mcg DAILY GÓMEZ Administration Labs CBC & Chem 7: 12/01/20 06:57 12/01/20 06:57 Microbiology Microbiology Results: Microbiology 11/28/20 14:47 Blood - Venous Blood Culture - Preliminary No growth after 48 hours. 11/28/20 14:47 Blood - Venous Blood Culture - Preliminary No growth after 48 hours. Assessment and Plan (1) Community acquired pneumonia: Status: Acute (2) Acute exacerbation of chronic obstructive airways disease with asthma: Status: Acute (3) Acute respiratory failure with hypoxia: Status: Acute (4) COPD (chronic obstructive pulmonary disease): Status: Acute Assessment and Plan: This is a 65-year-old Slovenian-speaking female with history of anxiety/depression, COPD/asthma who presents to the emergency department with shortness of breath and cough found to be hypoxia secondary to pneumonia and acute exacerbation of COPD/asthma. Acute respiratory failure with hypoxia Community-acquired pneumonia Acute exacerbation of COPD/asthma Continue PO prednisone with tapering at discharge scheduled and as needed bronchodilators nebulizer Discontinue IV ceftriaxone, doxycycline (started 11/28) Start Augmentin with plan to finish total of 10 days antibiotics continue home fluticasone, loratadine zafirlukast is NF Pulmonology input appreciated, start CPT and to follow as outpatient To doom home O2 evaluation Elevated lactic acid Likely secondary to breathing treatments, dehydration Leukocytosis related to steroids not sepsis Mood continue clonazepam, Depakote Gerd/pud continue omeprazole, sucralfate DVT prophylaxis Lovenox Healthcare proxy-sister Reyna Gonsalves Code status-full code
[2020-12-01] MEDS: Acetylcysteine 10 % 400 MG/4 ML VIAL INHALE (15:42)
[2020-12-01] MEDS: Amoxicillin/Potassium Clav 875 MG TABLET PO (16:30)
[2020-12-01] MEDS: guaiFENesin 200 MG/10 ML 10 ML LIQUID PO ×2 (16:30→21:55)
[2020-12-01] MEDS: Enoxaparin Sodium 40 MG/0.4 ML SYRINGE SUBCUT (19:19)
[2020-12-01] MEDS: Divalproex Sodium ER 250 MG TAB.ER.24H PO (20:17)
[2020-12-01] MEDS: hydrOXYzine HCL 25 MG TABLET PO (21:57)
[2020-12-02 04:00] VITALS: BP 133/68; PULSE 84; RESP 16; TEMP 36.1; O2SAT 97
[2020-12-02] MEDS: Amoxicillin/Potassium Clav 875 MG TABLET PO (04:15)
[2020-12-02] MEDS: guaiFENesin 200 MG/10 ML 10 ML LIQUID PO ×2 (04:15→10:08)
[2020-12-02 07:59] VITALS: BP 104/69; PULSE 67; RESP 18; TEMP 36.8; O2SAT 97
[2020-12-02] MEDS: Loratadine 10 MG TABLET PO (08:23)
[2020-12-02] MEDS: Sucralfate 1 GM TABLET PO ×2 (08:23→13:58)
[2020-12-02] MEDS: clonazePAM 1 MG TABLET PO (08:23)
[2020-12-02] MEDS: predniSONE 20 MG TABLET 40 MG PO (08:23)
[2020-12-02] MEDS: Multivitamin TABLET 1 TAB PO (08:23)
[2020-12-02] MEDS: Cyanocobalamin (Vitamin B-12) 1,000 MCG TABLET 1000 MCG PO (08:23)
[2020-12-02] MEDS: Cholecalciferol (Vitamin D3) 25 MCG TABLET 50 MCG PO (08:23)
[2020-12-02] MEDS: Fluticasone Propionate Nasal 16 GM SPRAY 2 SPRAY NOSTRIL-B (08:24)
[2020-12-02] MEDS: Omeprazole 20 MG CAPSULE.DR PO (08:24)
[2020-12-02] MEDS: Docusate Sodium 100 MG CAPSULE PO (08:24)
[2020-12-02] MEDS: 0.9 % Sodium Chloride Flush 3 ML SYRINGE IVFLUSH (08:24)
[2020-12-02 11:24] VITALS: PULSE 72; O2SAT 94
[2020-12-02] MEDS: Albuterol/Iprat 2.5/0.5MG 3 ML AMPUL.NEB INHALE (11:24)
[2020-12-02 12:00] VITALS: BP 115/62; PULSE 105; RESP 19; TEMP 36.3; O2SAT 94
--- NOTE | 2020-12-02 12:58 | W.MHC.F2F ---
Service Date Service Date: 12/02/20 Encounter Date of encounter: 12/02/20 Reasons for Services Reason for physical therapy: home safety and mobility and therapeutic exercises Homebound: Leaving the home is medically contraindicated at this time without the asist of a device and/or another person due th the listed conditions above and below. Certification: Based on the above findings, I certify that this patient is confined to the home and needs intermittent usp care, physical therapy and/or speech therapy, or continues to need occupational therapy. The patient is under my care, and I have initiated the establishment of the plan of care. The patient will be followed by a physician who will periodically review the plan of care.
--- NOTE | 2020-12-02 12:59 | P.DS_ITS ---
DS: Providers Provider Date of Service: 12/02/20 Date of admission: 11/28/20 16:43 Primary care physician: Amelia Montalvo DO Consults: 12/01/20 09:14 Consult to Pulmonology Routine Consulting Provider: Tyrese Garcia Reason for consultation: COPD\PNA for your kind eval 12/01/20 15:13 Consult Respiratory Therapy Routine Reason for consultation: Flutter valve and CPT post nebs DS: Diagnosis Discharge Diagnosis (1) Community acquired pneumonia: Status: Acute (2) Acute exacerbation of chronic obstructive airways disease with asthma: Status: Acute (3) Acute respiratory failure with hypoxia: Status: Acute (4) COPD (chronic obstructive pulmonary disease): Status: Acute DS: Medications Discharge Medications Home Medications: Home Medications Medication Instructions Recorded Confirmed azelastine 137 mcg (0.1 %) nasal 1 - 2 spray INTRANASAL BID 05/21/20 11/28/20 spray aerosol cholecalciferol (vitamin D3) 50 50 mcg PO DAILY 05/21/20 11/28/20 mcg (2,000 unit) tablet cyanocobalamin (vitamin B-12) 1,000 mcg PO QAM 05/21/20 11/28/20 1,000 mcg tablet divalproex 250 mg tablet,extended 250 mg PO BEDTIME 05/21/20 11/28/20 release 24 hr fluticasone 250 mcg-salmeterol 50 1 inh INHALATION BID PRN 05/21/20 11/28/20 mcg/dose blistr powdr for inhalation fluticasone propionate 50 2 spray INTRANASAL DAILY 05/21/20 11/28/20 mcg/actuation nasal spray,suspension loratadine 10 mg tablet 10 mg PO DAILY 05/21/20 11/28/20 multivitamin 1 tab PO DAILY 05/21/20 11/28/20 ondansetron HCl 4 mg tablet 4 mg PO BID PRN 05/21/20 11/28/20 sumatriptan succinate 100 mg tablet 100 mg PO ONCE PRN 05/21/20 11/28/20 zafirlukast 20 mg tablet 20 mg PO BID 05/21/20 11/28/20 acetaminophen 650 mg 650 mg PO Q6H PRN 07/29/20 11/28/20 tablet,extended release clonazepam 1 mg tablet 1 mg PO BID 07/29/20 11/28/20 hydroxyzine pamoate 25 mg capsule 25 mg PO BID PRN 07/29/20 11/28/20 naproxen 250 mg tablet 250 mg PO BID PRN 07/29/20 11/28/20 albuterol sulfate 2 puff PO Q4H PRN 11/28/20 11/28/20 docusate sodium 100 mg PO BID 11/28/20 11/28/20 sucralfate 1 tab PO QID 11/28/20 11/28/20 Previous Rx's Medication Instructions Recorded linaclotide 290 mcg capsule 290 mcg PO QAM 30 Days #30 cap 07/29/20 methylcellulose (laxative) 500 mg 1,000 mg PO DAILY 30 Days #60 tab 09/15/20 tablet pantoprazole 40 mg tablet,delayed 40 mg PO DAILY #60 tab 09/23/20 release prednisone 40 mg PO DAILY #10 tab 11/24/20 albuterol sulfate 0.63 mg INHALATION Q4-6H PRN #90 ml 12/02/20 amoxicillin-pot clavulanate 875 mg PO Q12H #10 tab 12/02/20 guaifenesin 200 mg PO Q6H 7 Days #280 ml 12/02/20 prednisone See Taper PO DAILY #30 tab 12/02/20 DS: Summary Hospital Course Hospital Course: Admission note HPI This is a 65-year-old Syriac-speaking female who presents to the emergency department complaints of shortness of breath. She has been feeling unwell for the past several days. She reports a cough productive of green phlegm, decreased p.o. intake and shortness of breath. She ran out of nebulizer solution at home and has not been able to use her nebulizer. Was seen in the emergency department on November 24 and diagnosed with bronchitis. She was discharged home with azithromycin and prednisone which she has been taking. On arrival she was tachypneic with respiratory rate in the 40s. She was hypoxic with oxygen saturation of 89% on room air. Lab work was relatively unremarkable with the exception of an elevated lactic acid of 3.8. Chest x-ray showed question of left lower lobe pneumonia. In the emergency department she was treated with ceftriaxone, azithromycin, IV Solu-Medrol and DuoNeb breathing treatment as well as IV fluid. Her respiratory rate has improved significantly. Hospital course The patient was admitted to the hospital for evaluation of difficulty breathing and low oxygen level. Found to have acute hypoxic respiratory failure as a result of community-acquired pneumonia and COPD exacerbation. Treated with IV steroids, IV antibiotics and bronchodilator nebulizers with good response over the course of hospital stay as she was evaluated by campus recruiting coordinator Dr. Garcia who recommended chest physical therapy. She was evaluated by Physical therapy who recommended home PT. To be discharged on Augmentin, prednisone and renew her home nebulizers. Time Spent with Patient Time attestation: Total time spent providing and/or coordinating discharge services: Discharge coordination time: Greater than 30 minutes Quality: Stroke Does the patient have a stroke diagnosis?: No Physical Exam Vital Signs: Vital Signs: Last Vital Signs Temp 97.3 F 12/02/20 12:00 Pulse 105 H 12/02/20 12:00 Resp 19 12/02/20 12:00 BP 115/62 12/02/20 12:00 Pulse Ox 94 12/02/20 12:00 Oxygen Flow Rate 2 11/28/20 12:48 Body Mass Index 25.8 Const: Other: Constitutional : Alert, oriented, not in distress Neck : Normal inspection, Supple Cardiovascular : RRR, S1 S2, no lower extremity edema Respiratory : Good bilateral air entry, no crackles, no wheezes but has fine rhonchi bilaterally Gastrointestinal: soft, lax, Normal bowel sounds, Non tender Skin : Warm/Dry, No rash Neurological : Alert & oriented x3, No focal deficit DS: Data Data Completed and Pending Labs on day of discharge: Preliminary micro results at discharge 11/28/20 14:47 Blood Culture - Preliminary Blood - Venous No growth after 48 hours. 11/28/20 14:47 Blood Culture - Preliminary Blood - Venous No growth after 48 hours. Discharge Plan Discharge Patient Disposition: Home, Self-Care Discharge Diagnosis: COPD exacerbation Pneumonia Referrals: Amelia Montalvo DO [Primary Care Provider] - 1 Week Discharge Medications: New guaifenesin 100 mg/5 mL Liquid 200 mg PO Q6H 7 Days Qty: 280 RF: 0 amoxicillin-pot clavulanate 875-125 mg Tablet 875 mg PO Q12H Qty: 10 RF: 0 prednisone 10 mg tablet See Taper mg PO DAILY Qty: 30 RF: 0 albuterol sulfate 0.63 mg/3 mL solution for nebulization 0.63 mg inhalation Q4-6H PRN (Reason: shortness of breath or wheezing) Qty: 90 RF: 0 Continued pantoprazole 40 mg tablet,delayed release (DR/EC) 40 mg PO DAILY Qty: 60 RF: 1 prednisone 20 mg tablet 40 mg PO DAILY Qty: 10 RF: 0 sucralfate 1 gram tablet 1 tab PO QID RF: 0 docusate sodium 100 mg capsule 100 mg PO BID RF: 0 albuterol sulfate 90 mcg/actuation HFA aerosol inhaler 2 puff PO Q4H PRN (Reason: dyspnea) RF: 0 divalproex 250 mg tablet extended release 24 hr 250 mg PO BEDTIME RF: 0 loratadine 10 mg tablet 10 mg PO DAILY RF: 0 fluticasone propionate 50 mcg/actuation spray,suspension 2 spray intranasal DAILY RF: 0 zafirlukast 20 mg tablet 20 mg PO BID RF: 0 fluticasone propion-salmeterol 250-50 mcg/dose blister with device 1 inh inhalation BID PRN (Reason: Wheezing) RF: 0 ondansetron HCl 4 mg tablet 4 mg PO BID PRN (Reason: nausea) RF: 0 sumatriptan succinate 100 mg tablet 100 mg PO ONCE PRN (Reason: Migraine Headache) RF: 0 cyanocobalamin (vitamin B-12) 1,000 mcg tablet 1,000 mcg PO QAM RF: 0 cholecalciferol (vitamin D3) 50 mcg (2,000 unit) tablet 50 mcg PO DAILY RF: 0 multivitamin Tablet 1 tab PO DAILY RF: 0 azelastine 137 mcg (0.1 %) aerosol,spray 1 - 2 spray intranasal BID RF: 0 hydroxyzine pamoate 25 mg capsule 25 mg PO BID PRN (Reason: Anxiety) RF: 0 naproxen 250 mg tablet 250 mg PO BID PRN (Reason: Pain) RF: 0 acetaminophen 650 mg tablet extended release 650 mg PO Q6H PRN (Reason: Pain) RF: 0 clonazepam 1 mg tablet 1 mg PO BID RF: 0 Linzess 290 mcg capsule 290 mcg PO QAM 30 Days Qty: 30 RF: 4 Citrucel 500 mg tablet 1,000 mg PO DAILY 30 Days Qty: 60 RF: 6 Discharge Orders: Discharge Order (Routine); Ordered 12/02/20 Ordered By: Magui Verdin Diet: advance to usual diet Activity on Discharge: As tolerated Stand Alone Forms: Patient Portal Discharge page Care Plan Goals: Read below Health Concerns: Read below Plan of Treatment: You were admitted to the hospital for evaluation of difficulty breathing. Images and blood for were consistent with possible pneumonia and COPD exacerbation. Treated with IV antibiotics, steroids and nebulizers with good response over the course of hospital stay. You were evaluated by Dr. Garcia from pulmonology who will follow up with you as outpatient. Assessment: Continue Augmentin as prescribed To use prednisone tapering dose as prescribed To do physical therapy at home
[2020-12-02 13:39] VITALS: PULSE 103; PULSE 106; PULSE 108; O2SAT 98
--- NOTE | 2020-12-02 13:59 | MHC.CM.PN ---
Addendum entered by Janette Velasquez RN 12/02/20 15:24: Due to [facility] unable do start of care unitl tuesday/tuesday this week pt will be going home w/[facility] and will be seen tomorrow 12/03/20 Original Note: IMM 12/02, PT DISCHARGING TODAY HOME W/[facility] FOR SN FOR MED MANAGEMENT, FRIEND IRIS TO TRANSPORT PT AT 3PM. PER RESPIRATORY NO HOME O2 NEEDED.
--- NOTE | 2020-12-02 14:05 | W.MHC.F2F ---
Service Date Service Date: 12/02/20 Encounter Date of encounter: 12/02/20 Reasons for Services Reason for group home: medication treatment and teach disease management Reason for physical therapy: home safety and mobility and therapeutic exercises Homebound: Leaving the home is medically contraindicated at this time without the asist of a device and/or another person due th the listed conditions above and below. Certification: Based on the above findings, I certify that this patient is confined to the home and needs intermittent group home care, physical therapy and/or speech therapy, or continues to need occupational therapy. The patient is under my care, and I have initiated the establishment of the plan of care. The patient will be followed by a physician who will periodically review the plan of care.
== END 2020-12-02 15:30 | disposition home or self-care (01) | DRG 193 ==
LOC: HO.ED 17:23 → HO.S3 17:47
PROVIDERS: Physician Assistant; Admitting Provider Physician Assistant Medical; Emergency Provider Internal Medicine; PCP Family Medicine; Visit Provider Student in an Organized Health Care Education/Training Program
DX: J18.9 Pneumonia, unspecified organism (principal); J96.01 Acute respiratory failure with hypoxia; J44.0 Chronic obstructive pulmonary disease with (acute) lower respiratory infection; J45.901 Unspecified asthma with (acute) exacerbation; E87.2 Acidosis; K27.9 Peptic ulcer, site unspecified, unspecified as acute or chronic, without hemorrhage or perforation; F32.9 Major depressive disorder, single episode, unspecified; K21.9 Gastro-esophageal reflux disease without esophagitis; D72.829 Elevated white blood cell count, unspecified; F41.9 Anxiety disorder, unspecified; Z20.822 Contact with and (suspected) exposure to COVID-19; Z96.651 Presence of right artificial knee joint; Z79.51 Long term (current) use of inhaled steroids; Z79.899 Other long term (current) drug therapy
CPT/HCPCS: 0241U; 36415; 71045; 80048; 83605; 83735; 83880; 84484; 85025; 85027; 85610; 87040; 93005; 94640; 96365; 96366; 96368; 96375; 97161; 99285; J0456; J0696; J1650; J2060; J2920; J2930

== ENCOUNTER 2020-12-03 10:17 | Inpatient (IN) | payer MEDICARE, SELFPAY ==
[2020-12-03] VITALS (11 sets, daily range): BP systolic 106–140; BP diastolic 51–72; PULSE 65–84; RESP 16–20; TEMP 36–36.8; O2SAT 94–100; BMI 22.8
--- NOTE | ~2020-12-03 | CT_ITS ---
EXAMINATION: CT CHEST WITHOUT CONTRAST CLINICAL INFORMATION: Cough and shortness of breath. Evaluate for pneumonia. COMPARISON: Previous chest x-ray most recent from earlier the same day and previous chest CT May 2017 TECHNIQUE: Multidetector volumetric CT imaging of the chest was done. Axial MIP volume rendering provided. Sagittal and coronal reformatted images were obtained. This CT examination was performed using dose optimization techniques as appropriate, variously including the following: *Automated exposure control *Adjustment of mA and/or kV according to patient size (this includes techniques or standardized protocols for targeted exams where dose is matched to indication/reason for exam; i.e. extremities or head) *Use of iterative reconstruction technique DLP: 197 mGy-cm FINDINGS: LUNGS: There is subsegmental atelectasis at the right lung base. The lungs are otherwise clear. No evidence of pneumonia is seen. MEDIASTINUM: The thoracic aorta is tortuous. There are small right thyroid nodules that are stable. The mediastinum is otherwise normal. PLEURA: There is no pleural effusion. No pleural mass or thickening. AXILLA: No lymphadenopathy. UPPER ABDOMEN: Unremarkable. OSSEOUS STRUCTURES: There are mild degenerative changes of the spine. CT/CT chest wo con IMPRESSION: Subsegmental atelectasis at the right lung base. No evidence of pneumonia.
--- NOTE | ~2020-12-03 | XR_ITS ---
EXAMINATION: XR CHEST CLINICAL INFORMATION: Shortness of breath COMPARISON: Chest radiographs 11/28/2020, 11/24/2020, 08/14/2019 TECHNIQUE: 2 views of the chest were obtained. FINDINGS: There is no lobar or segmental airspace consolidation or definite groundglass opacity. Question left base opacity on recent imaging is not demonstrated on current exam. The costophrenic sulci are clear. The heart is normal in size. The vascularity is normal. No effusion. No pneumothorax or pleural reaction. The hilar and mediastinal contours are stable. XR/XR chest 2V IMPRESSION: Unremarkable examination.
--- NOTE | 2020-12-03 11:03 | ECG_ITS ---
Test Reason : SOB Blood Pressure : / mmHG Vent. Rate : 072 BPM Atrial Rate : 072 BPM P-R Int : 130 ms QRS Dur : 100 ms QT Int : 410 ms P-R-T Axes : 069 001 016 degrees QTc Int : 448 ms Artifact in tracing Normal sinus rhythm With limitation of artifact, no significant abnormality noted; When compared with ECG of 28-NOV-2020 16:28, Premature supraventricular complexes are no longer Present Referred By: Chiara Schneider Electronically Signed By:LEEANN JUNE
[2020-12-03] MEDS: Albuterol/Iprat 2.5/0.5MG 3 ML AMPUL.NEB INHALE (11:38)
[2020-12-03] MEDS: cefTRIAXone sodium 1 GM in 0.9 % Sodium Chloride 50 ML IV (11:40)
[2020-12-03] MEDS: Magnesium Sulfate/H2O 2 GM/50 ML PIGGYBACK IV (11:40)
[2020-12-03 11:42] LABS: MANUAL DIFF FLAG NO
[2020-12-03 11:43] LABS: Eosinophils Percent Auto 0.1 % (0-4); Hematocrit 38.5 % (37-47); Hemoglobin 12.2 g/dl (12.0-16.0); Imm Gran Abs Auto 0.12 X10*3/uL (0.00-0.03); Imm Gran Pct Auto 1.1 % (0.0-0.4); Lymphocytes Absolute Auto 1.1 X10*3/uL (1.2-4.9); Lymphocytes Percent Auto 9.7 % (20-40); Mean Corpuscular HGB Conc 31.7 g/dl (31.0-35.0); Mean Corpuscular Hemoglobin 26.2 pg (27.0-33.0); Mean Corpuscular Volume 82.8 fL (80-98); Mean Platelet Volume 8.9 fL (9.4-12.3); Monocytes Absolute Auto 0.6 X10*3/uL (0.1-1.2); Monocytes Percent Auto 5.6 % (2-11); Neutrophils Absolute Auto 9.2 X10*3/uL (2.0-8.3); Neutrophils Percent Auto 83.5 % (45-73); Platelet Count 340 X10*3/uL (160-400); Red Blood Count 4.65 X10*6/uL (4.20-5.50); Red Cell Distribution Width 13.9 % (11.0-16.0)
[2020-12-03 11:50] LABS: Prothrombin Time 12.1 SEC (10.8-13.0)
[2020-12-03 12:00] LABS: COVID-19 Test Negative (Negative); IDNOW Serial# 9DD0AD1C
[2020-12-03 12:05] LABS: Lactic Acid 1.8 mmol/L (0.5-2.0)
[2020-12-03 12:11] LABS: Alanine Aminotransferase 21 U/L (0-31); Albumin Level 4.1 g/dL (3.5-5.0); Alkaline Phosphatase 70 U/L (39-117); Anion Gap 14 (12-20); Aspartate Amino Transferase 14 U/L (5-31); Bilirubin Direct < 0.2 mg/dL (0.0-0.5); Bilirubin Total 0.3 mg/dL (0.0-1.0); Blood Urea Nitrogen 21 mg/dL (9-16); Calcium 9.5 mg/dL (8.4-10.2); Carbon Dioxide 28 mmol/L (22-29); Chloride 103 mmol/L (96-108); Creatinine Clr Calc Pharmacy 77.5; Estimated Glomerular Filt Rate > 60; Glucose Random 107 mg/dL (60-115); Magnesium 2.3 mg/dL (1.6-2.6); Potassium 3.8 mmol/L (3.3-5.1); Sodium 141 mmol/L (135-145); Total Protein 6.4 g/dL (6.5-8.0)
[2020-12-03 12:16] LABS: Troponin-I High Sensitivity < 3.5 ng/L (<3.5-17.0)
--- NOTE | 2020-12-03 12:27 | ED_ITS ---
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 Of note, the patient was admitted 11/28 through 12/02 for CAP, COPD exacerbation. On augmentin and prednisone. Patient although she has been compliant with taking these however she has had increasing shortness of breath, cough with green sputum, fatigue. Per EMS on arrival the patient was noted to have a room air saturation of 89%. She received albuterol and 125 mg of Solu-Medrol prior to arrival. When I went to evaluate the patient she has room-air saturation 96%. No chest pain, leg swelling or pain. No fevers. <Chiara Schneider NP - Last Filed: 12/03/20 16:30> Related Data Home medications: Home Medications Medication Instructions Recorded Confirmed azelastine 137 mcg (0.1 %) nasal 1 - 2 spray INTRANASAL BID 05/21/20 12/03/20 spray aerosol cholecalciferol (vitamin D3) 50 50 mcg PO DAILY 05/21/20 12/03/20 mcg (2,000 unit) tablet cyanocobalamin (vitamin B-12) 1,000 mcg PO DAILY 05/21/20 12/03/20 1,000 mcg tablet divalproex 250 mg tablet,extended 250 mg PO BEDTIME 05/21/20 12/03/20 release 24 hr fluticasone 250 mcg-salmeterol 50 1 inh INHALATION BID PRN 05/21/20 12/03/20 mcg/dose blistr powdr for inhalation fluticasone propionate 50 2 spray INTRANASAL DAILY 05/21/20 12/03/20 mcg/actuation nasal spray,suspension loratadine 10 mg tablet 10 mg PO DAILY 05/21/20 12/03/20 zafirlukast 20 mg tablet 20 mg PO BID 05/21/20 12/03/20 acetaminophen 650 mg 650 mg PO Q6H PRN 07/29/20 12/03/20 tablet,extended release clonazepam 1 mg tablet 1 mg PO BID 07/29/20 12/03/20 hydroxyzine pamoate 25 mg capsule 25 mg PO BID PRN 07/29/20 12/03/20 albuterol sulfate 2 puff PO Q4H PRN 11/28/20 12/03/20 docusate sodium 100 mg PO BID 11/28/20 12/03/20 sucralfate 1 tab PO QID 11/28/20 12/03/20 Previous Rx's Medication Instructions Recorded linaclotide 290 mcg capsule 290 mcg PO QAM 30 Days #30 cap 07/29/20 pantoprazole 40 mg tablet,delayed 40 mg PO DAILY #60 tab 09/23/20 release albuterol sulfate 0.63 mg INHALATION Q4-6H PRN #90 ml 12/02/20 amoxicillin-pot clavulanate 875 mg PO Q12H #10 tab 12/02/20 guaifenesin 200 mg PO Q6H 7 Days #280 ml 12/02/20 <Chiara Schneider NP - Last Filed: 12/03/20 16:30> Allergies/adverse reactions: Allergies Allergy/AdvReac Type Severity Reaction Status Date / Time vancomycin [VANCOMYCIN] Allergy Severe REDNESS,ANDI Verified 12/11/20 10:12 H,SWELLING Tetanus & Diphtheria Allergy Severe FEVER,DIFF. Uncoded 03/27/20 16:18 Tox,Adult BREATHING <Chiara Schneider NP - Last Filed: 12/03/20 16:30> Review of Systems Review of Systems: Yes all other systems are reviewed and are negative <Chiara Schneider NP - Last Filed: 12/03/20 16:30> Constitutional: Constitutional: Reports no additional constitutional complaints, Denies body ache(s), Denies chills, Reports fatigue, Denies fever(s), Denies headache(s) and Denies weakness <Chiara Schneidre NP - Last Filed: 12/03/20 16:30> Eyes: Eyes: Reports no additional eye complaints and Denies change in vision <Chiara Schneider COURT REPORTER - Last Filed: 12/03/20 16:30> ENT: Reports system reviewed and no additional complaints, except as documen rufino, Denies dizziness, Denies headache(s), Denies nasal congestion, Denies nasal discharge and Denies neck pain <Chiara Schneider NP - Last Filed: 12/03/20 16:30> Cardiovascular: Cardiovascular: Reports no additional cardiovascular complaints, Denies chest pain, Denies leg edema and Reports dyspnea <Chiara Schneider NP - Last Filed: 12/03/20 16:30> Respiratory: Respiratory: Reports no additional respiratory complaints, Reports cough and Reports dyspnea <Chiara Schneider NP - Last Filed: 12/03/20 16:30> Gastrointestinal: Gastrointestinal: Reports no additional gastrointestinal complaints, Denies abdominal pain, Denies diarrhea, Denies nausea and Denies vomiting <Chiara Schneider NP - Last Filed: 12/03/20 16:30> Genitourinary: Genitourinary: Reports no additional female genitourinary complaints and Denies urinary incontinence <Chiara Schneider NP - Last Filed: 12/03/20 16:30> Musculoskeletal: Musculoskeletal: Reports no additional musculoskeletal complaints, Denies back pain, Denies arthralgias, Denies joint swelling, Denies neck pain, Denies numbness and Denies tingling <Chiara Schneider NP - Last Filed: 12/03/20 16:30> Integumentary/Breasts: Skin/Breast: Reports system reviewed and no additional complaints, except as docu and Denies rash <Chiara Schneider NP - Last Filed: 12/03/20 16:30> Neurologic: Reports system reviewed and no additional complaints, except as documented, Denies Abnormal speech present, Denies dizziness, Denies headache(s), Denies numbness, Denies tingling and Denies weakness <Chiara Schneider NP - Last Filed: 12/03/20 16:30> Endocrine: Endocrine: Reports fatigue <Chiara Schneider NP - Last Filed: 12/03/20 16:30> PMFSH Past Medical History Attestation statement: The following information was validated with the patient. <Chiara Schneider NP - Last Filed: 12/03/20 16:30> Source: old records reviewed and nursing notes reviewed <Chiara Schneider NP - Last Filed: 12/03/20 16:30> Medical History: Medical History (Updated 12/11/20 @ 13:00 by Jared Langley MD) Allergic rhinitis (~12/11/20) Anxiety COPD (chronic obstructive pulmonary disease) COPD exacerbation Leukocytosis <Chiara Schneider NP - Last Filed: 12/03/20 16:30> Surgical History: Surgical History History of ear surgery History of esophagogastroduodenoscopy (EGD) History of right knee joint replacement Hx of colonoscopy <Chiara Schneider NP - Last Filed: 12/03/20 16:30> Family History Family History: Family History Father Diabetes Mother Diabetes Osteoporosis HTN (hypertension) Sister Pancreas cancer <Chiara Schneider NP - Last Filed: 12/03/20 16:30> Social History Social History: Social History Household Members: None Housing: Apartment Do you presently have visiting nurse or other home services: Yes Alcohol intake: never Patient Tobacco Use Status: Former Tobacco user Tobacco use type: Cigarette Advance Directives Date on File: 11/28/20 service: No Current occupational status: unemployed <Chiara Schneider NP - Last Filed: 12/03/20 16:30> Physical Exam Vital Signs: Vital Signs: Last Vital Signs Temp 96.8 F 12/04/20 11:37 Pulse 75 12/04/20 11:37 Resp 18 12/04/20 11:37 BP 118/69 12/04/20 11:37 Pulse Ox 96 12/04/20 11:37 Body Mass Index 22.8 <Chiara Schneider NP - Last Filed: 12/03/20 16:30> Vital Signs: Last Vital Signs Temp 96.8 F 12/04/20 11:37 Pulse 75 12/04/20 11:37 Resp 18 12/04/20 11:37 BP 118/69 12/04/20 11:37 Pulse Ox 96 12/04/20 11:37 Body Mass Index 22.8 <Aryan Patel MD - Last Filed: 01/07/21 16:49> Const: General: cooperative, healthy appearing, comfortable and no acute distress <Chiara Schneider NP - Last Filed: 12/03/20 16:30> Orientation/consciousness: patient oriented x3 <Chiara Schneider NP - Last Filed: 12/03/20 16:30> Limitations: no limitations <Chiara Schneider NP - Last Filed: 12/03/20 16:30> HENMT: Head: Yes normal to inspection <Chiara Schneider NP - Last Filed: 12/03/20 16:30> Ears: hearing grossly normal bilaterally <Chiara Schneider NP - Last Filed: 12/03/20 16:30> General nose exam: Normal external nose present <Chiara Schneider NP - Last Filed: 12/03/20 16:30> Face and sinus: Yes normal facial exam <Chiara Schneider NP - Last Filed: 12/03/20 16:30> Mouth: Normal oral and palatal mucosa present <Chiara Schneider NP - Last Filed: 12/03/20 16:30> Throat: Yes posterior oropharynx normal <Chiara Schneider NP - Last Filed: 12/03/20 16:30> Eyes: General: appearance normal, both eyes and all related structures <Chiara Schneider NP - Last Filed: 12/03/20 16:30> Pupils: Equal, round and reactive pupils present <Chiara Schneider COURT REPORTER - Last Filed: 12/03/20 16:30> Neck: Neck: Yes normal visual inspection <Chiara Schneider NP - Last Filed: 12/03/20 16:30> Chest: Chest palpation & inspection: normal inspection of the chest <Chiara Schneider NP - Last Filed: 12/03/20 16:30> Resp: Other: Coarse breath sounds throughout with rhonchi and expiratory wheezing <Chiara Schneider NP - Last Filed: 12/03/20 16:30> Effort & Inspection: normal respiratory effort <Chiara Schneider NP - Last Filed: 12/03/20 16:30> Cardio: Rate: regular rate <Chiara Schneider NP - Last Filed: 12/03/20 16:30> Rhythm: regular rhythm <Chiara Schneider NP - Last Filed: 12/03/20 16:30> Peripheral pulses: Peripheral pulses 2+ throughout <Chiara Schneider COURT REPORTER - Last Filed: 12/03/20 16:30> GI: Inspection: Yes normal to inspection <Chiara Schneider NP - Last Filed: 12/03/20 16:30> Palpation (GI): Soft to palpation and nontender <Chiara Schneider COURT REPORTER - Last Filed: 12/03/20 16:30> Auscultation: normal bowel sounds <Chiara Schneider NP - Last Filed: 12/03/20 16:30> Back/Spine/Pelvis: Thoracic/Lumbar Spine: thoracic and lumbar spine normal to inspection <Chiara Schneider NP - Last Filed: 12/03/20 16:30> Skin: General skin exam: no rashes or lesions noted <Chiara Schneider NP - Last Filed: 12/03/20 16:30> Neuro: General: patient oriented x3, no focal motor deficits and normal sensation to monofilament <Chiara Schneider NP - Last Filed: 12/03/20 16:30> Cranial nerves: Yes Equal, round and reactive pupils present <Chiara Schneider NP - Last Filed: 12/03/20 16:30> Cognition (Neuro): normal cognition <Chiara Schneider NP - Last Filed: 12/03/20 16:30> Speech: No Abnormal speech present <Chiara Schneider NP - Last Filed: 12/03/20 16:30> Gait exam (Neuro): Normal gait present <Chiara Schneider NP - Last Filed: 12/03/20 16:30> Motor exam (neuro): 5/5 motor strength present throughout <Chiara Schneider NP - Last Filed: 12/03/20 16:30> Extrem: General: Yes normal to inspection <Chiara Schneider NP - Last Filed: 12/03/20 16:30> Course Course Course Narrative: 65-year-old female here with increasing shortness of breath, cough with productive sputum, fatigue in the setting of recent admission for COPD exacerbation and community-acquired pneumonia discharged from this facility yesterday on Augmentin and prednisone. Was mildly hypoxic for EMS 89%. Received albuterol and Solu-Medrol prior to arrival and when I went to evaluate the patient she has room air saturation 96%. She does have coarse breath sounds throughout with mild expiratory wheezing. Will need labs, chest x-ray, EKG. Will give DuoNeb, magnesium and re-assess. 1230-chest x-ray actually looks improved today. Labs are also improving. Less likely pneumonia. More likely COPD exacerbation. Patient will need continued treatments and ambulatory oxygen saturation and determine disposition 1320-continued wheezing, cough. Sounds coarse. Will repeat albuterol. Check CT chest to rule out overt pneumonia. 1530-Ct chest shows subsegmental atelectasis at the right lung base. No evidence of pneumonia. Patient walked approximately 6 steps and desatted to 84% with tachypnea. Will need admission. Call out to medicines discussed 1600-discussed with Dr. Verdin who accepted patient <Chiara Schneider NP - Last Filed: 12/03/20 16:30> I have reviewed the chart <Aryan Patel MD - Last Filed: 01/07/21 16:49> Medical Decision Making MDM Narrative Medical decision making narrative: COPD exacerbation, community-acquired pneumonia, <Chiara Schneider NP - Last Filed: 12/03/20 16:30> Medical Records Medical records reviewed: Yes I reviewed the patient's medical records. <Chiara Schneider NP - Last Filed: 12/03/20 16:30> Lab Data Lab results reviewed: Yes I reviewed the patient's lab results. <Chiara Schneider NP - Last Filed: 12/03/20 16:30> Result diagrams: : 12/04/20 05:44 12/04/20 05:44 <Chiara Schneider NP - Last Filed: 12/03/20 16:30> Labs: Lab Results 12/03/20 12/03/20 12/03/20 Range/Units 11:24 11:35 11:35 WBC 11.0 H (4.8-10.8) X10*3/uL RBC 4.65 (4.20-5.50) X10*6/uL Hgb 12.2 (12.0-16.0) g/dl Hct 38.5 (37-47) % MCV 82.8 (80-98) fL MCH 26.2 L (27.0-33.0) pg MCHC 31.7 (31.0-35.0) g/dl RDW 13.9 (11.0-16.0) % Plt Count 340 (160-400) X10*3/uL MPV 8.9 L (9.4-12.3) fL Immature Gran % (Auto) 1.1 H (0.0-0.4) % Neut % (Auto) 83.5 H (45-73) % Lymph % (Auto) 9.7 L (20-40) % Lasalle % (Auto) 5.6 (2-11) % Eos % (Auto) 0.1 (0-4) % Baso % (Auto) 0.0 (0-2) % Lymph # (Auto) 1.1 L (1.2-4.9) X10*3/uL Lasalle # (Auto) 0.6 (0.1-1.2) X10*3/uL Eos # (Auto) 0.0 (0.0-0.4) X10*3/uL Baso # (Auto) 0.0 (0.0-0.2) X10*3/uL Abs Immat Gran (auto) 0.12 H (0.00-0.03) X10*3/uL Absolute Neuts (auto) 9.2 H (2.0-8.3) X10*3/uL Absolute Nucleated RBC 0.000 (0.0-0.012) X10*3/uL Nucleated RBC % (auto) 0.0 (0.0-0.2) /100WBC PT 12.1 (10.8-13.0) SEC INR 1.0 (0.9-1.1) Sodium (135-145) mmol/L Potassium (3.3-5.1) mmol/L Chloride (96-108) mmol/L Carbon Dioxide (22-29) mmol/L Anion Gap (12-20) BUN (9-16) mg/dL Creatinine (0.5-1.4) mg/dL Estim Creat Clear Calc Estimated GFR Random Glucose (60-115) mg/dL Lactic Acid (0.5-2.0) mmol/L Calcium (8.4-10.2) mg/dL Magnesium (1.6-2.6) mg/dL Total Bilirubin (0.0-1.0) mg/dL Direct Bilirubin (0.0-0.5) mg/dL AST (5-31) U/L ALT (0-31) U/L Alkaline Phosphatase (39-117) U/L Troponin I High Sens (<3.5-17.0) ng/L Total Protein (6.5-8.0) g/dL Albumin (3.5-5.0) g/dL COVID-19 (AKASH) Negative (Negative) COVID-19 Clin Com See Note 12/03/20 12/03/20 12/03/20 Range/Units 11:35 11:35 11:35 WBC (4.8-10.8) X10*3/uL RBC (4.20-5.50) X10*6/uL Hgb (12.0-16.0) g/dl Hct (37-47) % MCV (80-98) fL MCH (27.0-33.0) pg MCHC (31.0-35.0) g/dl RDW (11.0-16.0) % Plt Count (160-400) X10*3/uL MPV (9.4-12.3) fL Immature Gran % (Auto) (0.0-0.4) % Neut % (Auto) (45-73) % Lymph % (Auto) (20-40) % Lasalle % (Auto) (2-11) % Eos % (Auto) (0-4) % Baso % (Auto) (0-2) % Lymph # (Auto) (1.2-4.9) X10*3/uL Lasalle # (Auto) (0.1-1.2) X10*3/uL Eos # (Auto) (0.0-0.4) X10*3/uL Baso # (Auto) (0.0-0.2) X10*3/uL Abs Immat Gran (auto) (0.00-0.03) X10*3/uL Absolute Neuts (auto) (2.0-8.3) X10*3/uL Absolute Nucleated RBC (0.0-0.012) X10*3/uL Nucleated RBC % (auto) (0.0-0.2) /100WBC PT (10.8-13.0) SEC INR (0.9-1.1) Sodium 141 (135-145) mmol/L Potassium 3.8 (3.3-5.1) mmol/L Chloride 103 (96-108) mmol/L Carbon Dioxide 28 (22-29) mmol/L Anion Gap 14 (12-20) BUN 21 H (9-16) mg/dL Creatinine 0.71 (0.5-1.4) mg/dL Estim Creat Clear Calc 77.5 Estimated GFR > 60 Random Glucose 107 D (60-115) mg/dL Lactic Acid 1.8 (0.5-2.0) mmol/L Calcium 9.5 (8.4-10.2) mg/dL Magnesium 2.3 (1.6-2.6) mg/dL Total Bilirubin 0.3 (0.0-1.0) mg/dL Direct Bilirubin < 0.2 (0.0-0.5) mg/dL AST 14 (5-31) U/L ALT 21 (0-31) U/L Alkaline Phosphatase 70 (39-117) U/L Troponin I High Sens < 3.5 (<3.5-17.0) ng/L Total Protein 6.4 L (6.5-8.0) g/dL Albumin 4.1 (3.5-5.0) g/dL COVID-19 (AKASH) (Negative) COVID-19 Clin Com <Chiara Schneider NP - Last Filed: 12/03/20 16:30> Lab Results 12/03/20 12/03/20 12/03/20 Range/Units 11:24 11:35 11:35 WBC 11.0 H (4.8-10.8) X10*3/uL RBC 4.65 (4.20-5.50) X10*6/uL Hgb 12.2 (12.0-16.0) g/dl Hct 38.5 (37-47) % MCV 82.8 (80-98) fL MCH 26.2 L (27.0-33.0) pg MCHC 31.7 (31.0-35.0) g/dl RDW 13.9 (11.0-16.0) % Plt Count 340 (160-400) X10*3/uL MPV 8.9 L (9.4-12.3) fL Immature Gran % (Auto) 1.1 H (0.0-0.4) % Neut % (Auto) 83.5 H (45-73) % Lymph % (Auto) 9.7 L (20-40) % Lasalle % (Auto) 5.6 (2-11) % Eos % (Auto) 0.1 (0-4) % Baso % (Auto) 0.0 (0-2) % Lymph # (Auto) 1.1 L (1.2-4.9) X10*3/uL Lasalle # (Auto) 0.6 (0.1-1.2) X10*3/uL Eos # (Auto) 0.0 (0.0-0.4) X10*3/uL Baso # (Auto) 0.0 (0.0-0.2) X10*3/uL Abs Immat Gran (auto) 0.12 H (0.00-0.03) X10*3/uL Absolute Neuts (auto) 9.2 H (2.0-8.3) X10*3/uL Absolute Nucleated RBC 0.000 (0.0-0.012) X10*3/uL Nucleated RBC % (auto) 0.0 (0.0-0.2) /100WBC PT 12.1 (10.8-13.0) SEC INR 1.0 (0.9-1.1) Sodium (135-145) mmol/L Potassium (3.3-5.1) mmol/L Chloride (96-108) mmol/L Carbon Dioxide (22-29) mmol/L Anion Gap (12-20) BUN (9-16) mg/dL Creatinine (0.5-1.4) mg/dL Estim Creat Clear Calc Estimated GFR Random Glucose (60-115) mg/dL Lactic Acid (0.5-2.0) mmol/L Calcium (8.4-10.2) mg/dL Magnesium (1.6-2.6) mg/dL Total Bilirubin (0.0-1.0) mg/dL Direct Bilirubin (0.0-0.5) mg/dL AST (5-31) U/L ALT (0-31) U/L Alkaline Phosphatase (39-117) U/L Troponin I High Sens (<3.5-17.0) ng/L Total Protein (6.5-8.0) g/dL Albumin (3.5-5.0) g/dL COVID-19 (AKASH) Negative (Negative) COVID-19 Clin Com See Note 12/03/20 12/03/20 12/03/20 Range/Units 11:35 11:35 11:35 WBC (4.8-10.8) X10*3/uL RBC (4.20-5.50) X10*6/uL Hgb (12.0-16.0) g/dl Hct (37-47) % MCV (80-98) fL MCH (27.0-33.0) pg MCHC (31.0-35.0) g/dl RDW (11.0-16.0) % Plt Count (160-400) X10*3/uL MPV (9.4-12.3) fL Immature Gran % (Auto) (0.0-0.4) % Neut % (Auto) (45-73) % Lymph % (Auto) (20-40) % Lasalle % (Auto) (2-11) % Eos % (Auto) (0-4) % Baso % (Auto) (0-2) % Lymph # (Auto) (1.2-4.9) X10*3/uL [place]alle # (Auto) (0.1-1.2) X10*3/uL Eos # (Auto) (0.0-0.4) X10*3/uL Baso # (Auto) (0.0-0.2) X10*3/uL Abs Immat Gran (auto) (0.00-0.03) X10*3/uL Absolute Neuts (auto) (2.0-8.3) X10*3/uL Absolute Nucleated RBC (0.0-0.012) X10*3/uL Nucleated RBC % (auto) (0.0-0.2) /100WBC PT (10.8-13.0) SEC INR (0.9-1.1) Sodium 141 (135-145) mmol/L Potassium 3.8 (3.3-5.1) mmol/L Chloride 103 (96-108) mmol/L Carbon Dioxide 28 (22-29) mmol/L Anion Gap 14 (12-20) BUN 21 H (9-16) mg/dL Creatinine 0.71 (0.5-1.4) mg/dL Estim Creat Clear Calc 77.5 Estimated GFR > 60 Random Glucose 107 D (60-115) mg/dL Lactic Acid 1.8 (0.5-2.0) mmol/L Calcium 9.5 (8.4-10.2) mg/dL Magnesium 2.3 (1.6-2.6) mg/dL Total Bilirubin 0.3 (0.0-1.0) mg/dL Direct Bilirubin < 0.2 (0.0-0.5) mg/dL AST 14 (5-31) U/L ALT 21 (0-31) U/L Alkaline Phosphatase 70 (39-117) U/L Troponin I High Sens < 3.5 (<3.5-17.0) ng/L Total Protein 6.4 L (6.5-8.0) g/dL Albumin 4.1 (3.5-5.0) g/dL COVID-19 (AKASH) (Negative) COVID-19 Clin Com <Aryan Patel MD - Last Filed: 01/07/21 16:49> Imaging Data Chest x-ray: Attestation: I personally reviewed and interpreted this imaging study as follows: <Chiara Schneider NP - Last Filed: 12/03/20 16:30> Radiologist's impression: EXAMINATION: XR CHEST CLINICAL INFORMATION: Shortness of breath COMPARISON: Chest radiographs 11/28/2020, 11/24/2020, 08/14/2019 TECHNIQUE: 2 views of the chest were obtained. FINDINGS: There is no lobar or segmental airspace consolidation or definite groundglass opacity. Question left base opacity on recent imaging is not demonstrated on current exam. The costophrenic sulci are clear. The heart is normal in size. The vascularity is normal. No effusion. No pneumothorax or pleural reaction. The hilar and mediastinal contours are stable. XR/XR chest 2V IMPRESSION: Unremarkable examination. <Chiara Schneider NP - Last Filed: 12/03/20 16:30> CT scan - chest: Attestation: I personally reviewed and interpreted this imaging study as follows: <Chiara Schneider NP - Last Filed: 12/03/20 16:30> Radiologist's impression: Subsegmental atelectasis at the right lung base. No evidence of pneumonia. <Chiara Schneider NP - Last Filed: 12/03/20 16:30> ECG Data Attestation: I personally reviewed and interpreted this ECG as follows: <Chiara Schneider NP - Last Filed: 12/03/20 16:30> Interpretation: Normal sinus rhythm with rate of 72, normal NH, normal QRS, QTC 440 <Chiara Schneider NP - Last Filed: 12/03/20 16:30> Discharge Plan Discharge Clinical Impression: COPD (chronic obstructive pulmonary disease), Hypoxia <Chiara Schneider NP - Last Filed: 12/03/20 16:30> Patient Disposition: Admitted As Inpatient <Chiara Schneider NP - Last Filed: 12/03/20 16:30> Interventions: Admission Worksheet (ED) Last Done: 12/03/20 20:03 <Chiara Schneider NP - Last Filed: 12/03/20 16:30> Discharge Date/Time: 12/03/20 20:11 <Chiara Schneider NP - Last Filed: 12/03/20 16:30>
[2020-12-03] MEDS: Albuterol Sulfate (0.083%) 2.5 MG/3 ML VIAL.NEB 5 MG INHALE (13:29)
--- NOTE | 2020-12-03 15:35 | PC.NURSE ---
walked pt monitoring 02 sat levels. sitting @ room air 95% when walking dropped down to 84% put pt on 2l of o2 per provider orders
--- NOTE | 2020-12-03 16:10 | HE.PHANOTE ---
Pharmacy has completed the medication reconciliation and there were no significant medication issues requiring provider attention.
--- NOTE | 2020-12-03 16:14 | P.HPHOSP_ITS ---
History of Present Illness Date of Service: 12/03/20 Chief Complaint: Shortness of breath, cough A 65 years old lady with PMH of COPD, GERD, anxiety disorder who presents to the hospital with worsening shortness of breath and fatigue for 1 day duration. The patient was discharged from the hospital yesterday for COPD exacerbation and reported pneumonia. She went back home and this morning she is reporting she f elt very weak and short of breath. Associated with cough but no chest pain fever or chills. She called EMS who found her oxygen level to be around 89%. She was evaluated in the emergency and dropped her saturation to 87% upon ambulation on room air. CXR and CT scan were done in the emergency showing no new infiltrate. Admitted for treatment of acute hypoxic respiratory failure secondary to COPD exacerbation. Review of Systems Review of Systems: No fever, chills but reports generalized weakness No chest pain, palpitation Increased dyspnea with exertion and cough No abdominal pain, nausea or vomiting No urinary symptoms No any rash or wounds [facility] Medical History Allergic rhinitis Anxiety COPD (chronic obstructive pulmonary disease) Family History Father Diabetes Mother Diabetes Osteoporosis HTN (hypertension) Sister Pancreas cancer Surgical History History of ear surgery History of esophagogastroduodenoscopy (EGD) History of right knee joint replacement Hx of colonoscopy Social History Household Members: Family Housing: Apartment Alcohol intake: never Advance Directives: Yes Advance Directives on File: Yes Advance Directives Date on File: 11/28/20 service: No Current occupational status: unemployed Meds Allergies Allergy/AdvReac Type Severity Reaction Status Date / Time vancomycin [VANCOMYCIN] Allergy Severe REDNESS,ANDI Verified 10/28/20 13:30 H,SWELLING Tetanus & Diphtheria Allergy Severe FEVER,DIFF. Uncoded 03/27/20 16:18 Tox,Adult BREATHING Active Medications: Current Medications Generic Name Dose Route Start Last Admin Trade Name Freq PRN Reason Stop Dose Admin Pharmacy Consult 1 each 12/03/20 15:54 Consult Rx Perform Med Rec MISCELLANE ONCE PRN Consult order Home Medications Medication Instructions Recorded Confirmed Last Taken Type azelastine 137 mcg (0.1 %) nasal 1 - 2 spray INTRANASAL BID 05/21/20 12/03/20 Unknown History spray aerosol cholecalciferol (vitamin D3) 50 50 mcg PO DAILY 05/21/20 12/03/20 Unknown History mcg (2,000 unit) tablet cyanocobalamin (vitamin B-12) 1,000 mcg PO DAILY 05/21/20 12/03/20 Unknown History 1,000 mcg tablet divalproex 250 mg tablet,extended 250 mg PO BEDTIME 05/21/20 12/03/20 Unknown History release 24 hr fluticasone 250 mcg-salmeterol 50 1 inh INHALATION BID PRN 05/21/20 12/03/20 Unknown History mcg/dose blistr powdr for inhalation fluticasone propionate 50 2 spray INTRANASAL DAILY 05/21/20 12/03/20 Unknown History mcg/actuation nasal spray,suspension loratadine 10 mg tablet 10 mg PO DAILY 05/21/20 12/03/20 Unknown History multivitamin 1 tab PO DAILY 05/21/20 12/03/20 Unknown History sumatriptan succinate 100 mg tablet 100 mg PO ONCE PRN 05/21/20 12/03/20 Unknown History zafirlukast 20 mg tablet 20 mg PO BID 05/21/20 12/03/20 Unknown History acetaminophen 650 mg 650 mg PO Q6H PRN 07/29/20 12/03/20 Unknown History tablet,extended release clonazepam 1 mg tablet 1 mg PO BID 07/29/20 12/03/20 Unknown History hydroxyzine pamoate 25 mg capsule 25 mg PO BID PRN 07/29/20 12/03/20 Unknown History albuterol sulfate 2 puff PO Q4H PRN 11/28/20 12/03/20 Unknown History docusate sodium 100 mg PO BID 11/28/20 12/03/20 Unknown History sucralfate 1 tab PO QID 11/28/20 12/03/20 Unknown History Physical Exam Vital Signs and Narrative: Vital Signs: Last Vital Signs Temp 98.2 F 12/03/20 10:29 Pulse 84 12/03/20 14:00 Resp 20 12/03/20 14:00 BP 108/64 12/03/20 14:00 Pulse Ox 95 12/03/20 14:00 Body Mass Index 22.8 Const: Other: Constitutional : Alert, oriented, not in distress Neck : Normal inspection, Supple Cardiovascular : RRR, S1 S2, no lower extremity edema Respiratory : Decrease bilateral air entry, no crackles, bilateral expiratory wheezes and significant rhonchi Gastrointestinal: soft, lax, Normal bowel sounds, Non tender Skin : Warm/Dry, No rash Neurological : Alert & oriented x3, No focal deficit Results Labs CBC and Chem 7: 12/03/20 11:35 12/03/20 11:35 Labs: Laboratory Results - last 24 hr 12/03/20 12/03/20 12/03/20 11:24 11:35 11:35 MCV 82.8 MCH 26.2 L MCHC 31.7 RDW 13.9 Plt Count 340 MPV 8.9 L Immature Gran % (Auto) 1.1 H Neut % (Auto) 83.5 H Lymph % (Auto) 9.7 L [place] % (Auto) 5.6 Eos % (Auto) 0.1 Baso % (Auto) 0.0 Lymph # (Auto) 1.1 L [place] # (Auto) 0.6 Eos # (Auto) 0.0 Baso # (Auto) 0.0 Abs Immat Gran (auto) 0.12 H Absolute Neuts (auto) 9.2 H Absolute Nucleated RBC 0.000 Nucleated RBC % (auto) 0.0 PT 12.1 INR 1.0 Anion Gap Estim Creat Clear Calc Estimated GFR Random Glucose Lactic Acid Calcium Magnesium Total Bilirubin Direct Bilirubin AST ALT Alkaline Phosphatase Troponin I High Sens Total Protein Albumin COVID-19 (AKASH) Negative COVID-19 Clin Com See Note 12/03/20 12/03/20 12/03/20 11:35 11:35 11:35 MCV MCH MCHC RDW Plt Count MPV Immature Gran % (Auto) Neut % (Auto) Lymph % (Auto) [place] % (Auto) Eos % (Auto) Baso % (Auto) Lymph # (Auto) [place] # (Auto) Eos # (Auto) Baso # (Auto) Abs Immat Gran (auto) Absolute Neuts (auto) Absolute Nucleated RBC Nucleated RBC % (auto) PT INR Anion Gap 14 Estim Creat Clear Calc 77.5 Estimated GFR > 60 Random Glucose 107 D Lactic Acid 1.8 Calcium 9.5 Magnesium 2.3 Total Bilirubin 0.3 Direct Bilirubin < 0.2 AST 14 ALT 21 Alkaline Phosphatase 70 Troponin I High Sens < 3.5 Total Protein 6.4 L Albumin 4.1 COVID-19 (AKASH) COVID-19 Clin Com Imaging Radiologist's Impressions: Impressions Chest X-Ray 12/03/20 11:03 IMPRESSION: Unremarkable examination. Chest CT 12/03/20 13:21 IMPRESSION: Subsegmental atelectasis at the right lung base. No evidence of pneumonia. Assessment and Plan (1) Acute respiratory failure with hypoxia: Status: Acute (2) Acute exacerbation of chronic obstructive airways disease with asthma: Status: Acute A 65 years old lady with PMH of COPD, GERD, anxiety disorder who presents to the hospital with worsening shortness of breath and fatigue for 1 day duration. Acute respiratory failure with hypoxia Acute exacerbation of COPD/asthma Seems the patient has a lot of secretions and having difficulties getting rid of them Start IV steroids Bronchodilator nebulizers ATC and p.r.n. continue home fluticasone, loratadine zafirlukast is NF start CPT and flutter valve and to follow as outpatient with pulmonology as planned from last admission To do home O2 evaluation Recent CAP Continue oral Augmentin as prescribed Leukocytosis related to steroids not sepsis Anxiety disorder continue clonazepam, Depakote GERD continue omeprazole, sucralfate DVT prophylaxis Lovenox
[2020-12-03] MEDS: 0.9 % Sodium Chloride Flush 3 ML SYRINGE IVFLUSH (20:54)
[2020-12-03] MEDS: Enoxaparin Sodium 40 MG/0.4 ML SYRINGE SUBCUT (20:54)
[2020-12-03] MEDS: Amoxicillin/Potassium Clav 875 MG TABLET PO (20:54)
[2020-12-03] MEDS: clonazePAM 1 MG TABLET PO (20:54)
[2020-12-03] MEDS: Docusate Sodium 100 MG CAPSULE PO (20:54)
[2020-12-03] MEDS: Sucralfate 1 GM TABLET PO (20:54)
[2020-12-03] MEDS: Divalproex Sodium ER 250 MG TAB.ER.24H PO (20:54)
[2020-12-03] MEDS: guaiFENesin LA 600 MG TAB.ER.12H PO (21:03)
[2020-12-04 03:58] VITALS: BP 111/60; PULSE 72; RESP 18; TEMP 36.2; O2SAT 95
[2020-12-04] MEDS: guaiFENesin 100 MG/5 ML LIQUID PO (05:43)
[2020-12-04] MEDS: Omeprazole 20 MG CAPSULE.DR PO (05:43)
[2020-12-04 06:26] LABS: MANUAL DIFF FLAG NO
[2020-12-04 06:48] LABS: Basophils Percent Auto 0.2 % (0-2); Eosinophils Percent Auto 0.1 % (0-4); Hematocrit 37.9 % (37-47); Hemoglobin 11.8 g/dl (12.0-16.0); Imm Gran Pct Auto 1.5 % (0.0-0.4); Lymphocytes Absolute Auto 2.4 X10*3/uL (1.2-4.9); Lymphocytes Percent Auto 18.1 % (20-40); Mean Corpuscular HGB Conc 31.1 g/dl (31.0-35.0); Mean Corpuscular Hemoglobin 25.9 pg (27.0-33.0); Mean Corpuscular Volume 83.3 fL (80-98); Mean Platelet Volume 9.1 fL (9.4-12.3); Monocytes Absolute Auto 1.1 X10*3/uL (0.1-1.2); Monocytes Percent Auto 8.4 % (2-11); Neutrophils Absolute Auto 9.4 X10*3/uL (2.0-8.3); Neutrophils Percent Auto 71.7 % (45-73); Platelet Count 380 X10*3/uL (160-400); Red Blood Count 4.55 X10*6/uL (4.20-5.50); Red Cell Distribution Width 14.1 % (11.0-16.0); White Blood Count 13.1 X10*3/uL (4.8-10.8)
[2020-12-04 07:07] LABS: Anion Gap 13 (12-20); Blood Urea Nitrogen 23 mg/dL (9-16); Calcium 9.1 mg/dL (8.4-10.2); Carbon Dioxide 29 mmol/L (22-29); Chloride 104 mmol/L (96-108); Creatinine Clr Calc Pharmacy 75.4; Estimated Glomerular Filt Rate > 60; Glucose Random 82 mg/dL (60-115); Potassium 3.9 mmol/L (3.3-5.1); Sodium 142 mmol/L (135-145)
[2020-12-04 07:40] VITALS: PULSE 113; PULSE 114; PULSE 98; O2SAT 93; O2SAT 94; O2SAT 96
[2020-12-04] MEDS: Cyanocobalamin (Vitamin B-12) 1,000 MCG TABLET 1000 MCG PO (07:54)
[2020-12-04] MEDS: clonazePAM 1 MG TABLET PO (07:54)
[2020-12-04] MEDS: Sucralfate 1 GM TABLET PO (07:55)
[2020-12-04] MEDS: Cholecalciferol (Vitamin D3) 25 MCG TABLET 50 MCG PO (07:55)
[2020-12-04] MEDS: Loratadine 10 MG TABLET PO (07:55)
[2020-12-04] MEDS: Amoxicillin/Potassium Clav 875 MG TABLET PO (07:55)
[2020-12-04] MEDS: guaiFENesin LA 600 MG TAB.ER.12H PO (07:56)
[2020-12-04] MEDS: Docusate Sodium 100 MG CAPSULE PO (07:56)
[2020-12-04] MEDS: Multivitamin TABLET 1 TAB PO (07:56)
[2020-12-04 07:58] VITALS: BP 119/70; PULSE 61; RESP 18; TEMP 36.1; O2SAT 97
[2020-12-04] MEDS: Fluticasone Propionate Nasal 16 GM SPRAY 2 SPRAY NOSTRIL-B (09:21)
[2020-12-04] MEDS: 0.9 % Sodium Chloride Flush 3 ML SYRINGE IVFLUSH (09:22)
--- NOTE | 2020-12-04 10:18 | MHC.CM.PN ---
PATIENT IS A READMIT SHE LIVES ALONE. A FRIEND LIVES NEAR BY AND ASSISTS WITH TRANSPORT NEEDS. HCP IS ON FILE AND VERIFIED. PCP IS DR DIANELYS IYER AND CASE MANAGEMENT OFFICE UPDATED. 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 REFERRAL PLACED FOR AGENCY TO FOLLOW. PATIENT ALSO RECEIVES [facility] THROUGH [facility]. IMM 12/04 IN CHART.
--- NOTE | 2020-12-04 11:22 | MHC.CM.PN ---
PATIENT IS DISCHARGED HOME WITH RESUMPTION OF HER [facility]. RN AWARE OF PLAN.
[2020-12-04 11:37] VITALS: BP 118/69; PULSE 75; RESP 18; TEMP 36; O2SAT 96
--- NOTE | 2020-12-04 12:26 | PM.DS ---
DS: Providers Provider Date of Service: 12/03/20 Date of admission: 12/03/20 16:26 Primary care physician: Amelia Montalvo DO Consults: 12/03/20 20:21 Consult Respiratory Therapy Routine Reason for consultation: Flutter valve, CPT DS: Diagnosis Discharge Diagnosis (1) Acute respiratory failure with hypoxia: Status: Resolved (2) Acute exacerbation of chronic obstructive airways disease with asthma: Status: Resolved DS: Medications Discharge Medications Home Medications: Home Medications Medication Instructions Recorded Confirmed azelastine 137 mcg (0.1 %) nasal 1 - 2 spray INTRANASAL BID 05/21/20 12/03/20 spray aerosol cholecalciferol (vitamin D3) 50 50 mcg PO DAILY 05/21/20 12/03/20 mcg (2,000 unit) tablet cyanocobalamin (vitamin B-12) 1,000 mcg PO DAILY 05/21/20 12/03/20 1,000 mcg tablet divalproex 250 mg tablet,extended 250 mg PO BEDTIME 05/21/20 12/03/20 release 24 hr fluticasone 250 mcg-salmeterol 50 1 inh INHALATION BID PRN 05/21/20 12/03/20 mcg/dose blistr powdr for inhalation fluticasone propionate 50 2 spray INTRANASAL DAILY 05/21/20 12/03/20 mcg/actuation nasal spray,suspension loratadine 10 mg tablet 10 mg PO DAILY 05/21/20 12/03/20 multivitamin 1 tab PO DAILY 05/21/20 12/03/20 sumatriptan succinate 100 mg tablet 100 mg PO ONCE PRN 05/21/20 12/03/20 zafirlukast 20 mg tablet 20 mg PO BID 05/21/20 12/03/20 acetaminophen 650 mg 650 mg PO Q6H PRN 07/29/20 12/03/20 tablet,extended release clonazepam 1 mg tablet 1 mg PO BID 07/29/20 12/03/20 hydroxyzine pamoate 25 mg capsule 25 mg PO BID PRN 07/29/20 12/03/20 albuterol sulfate 2 puff PO Q4H PRN 11/28/20 12/03/20 docusate sodium 100 mg PO BID 11/28/20 12/03/20 sucralfate 1 tab PO QID 11/28/20 12/03/20 Previous Rx's Medication Instructions Recorded linaclotide 290 mcg capsule 290 mcg PO QAM 30 Days #30 cap 07/29/20 methylcellulose (laxative) 500 mg 1,000 mg PO DAILY 30 Days #60 tab 09/15/20 tablet pantoprazole 40 mg tablet,delayed 40 mg PO DAILY #60 tab 09/23/20 release albuterol sulfate 0.63 mg INHALATION Q4-6H PRN #90 ml 12/02/20 amoxicillin-pot clavulanate 875 mg PO Q12H #10 tab 12/02/20 guaifenesin 200 mg PO Q6H 7 Days #280 ml 12/02/20 prednisone See Taper PO DAILY #30 tab 12/02/20 DS: Summary Hospital Course Hospital Course: 65 years old lady with PMH of COPD, GERD, anxiety disorder who presents to the hospital with worsening shortness of breath and fatigue for 1 day duration. The patient was discharged from the hospital yesterday for COPD exacerbation and reported pneumonia. She went back home and this morning she is reporting she felt very weak and short of breath. Associated with cough but no chest pain fever or chills. She called EMS who found her oxygen level to be around 89%. She was evaluated in the emergency and dropped her saturation to 87% upon ambulation on room air. CXR and CT scan were done in the emergency showing no new infiltrate. Admitted for treatment of acute hypoxic respiratory failure secondary to COPD exacerbation. Hospital Course problem frost section: Acute respiratory failure with hypoxia-Acute exacerbation of COPD/asthma Patient was started on IV steroids, nebs, continue on her p.o. antibiotics. Seems to be improved, patient with p.o. steroids, her p.o. antibiotic course. Leukocytosis thought to be probably secondary to steroid use.no fevers blood cultures prelim@24 hrs neg( checked with micro lab) Monitor CBC with PCP Patient did not qualify for home oxygen. For patient was advised to follow up with Pulmonary outpatient. Patient management discussed with patient in detail with the help of american sign language interpreter , further management outpatient as per PCP. Time Spent with Patient Time attestation: Total time spent providing and/or coordinating discharge services: Discharge coordination time: Greater than 30 minutes Quality: Stroke Does the patient have a stroke diagnosis?: No Physical Exam Vital Signs: Vital Signs: Last Vital Signs Temp 96.8 F 12/04/20 11:37 Pulse 75 12/04/20 11:37 Resp 18 12/04/20 11:37 BP 118/69 12/04/20 11:37 Pulse Ox 96 12/04/20 11:37 Body Mass Index 22.8 Physical exam: Constitutional: Not in acute distress . cvs: rrr, [id number] , no murmur res: clear to auscultation ,no rhonchii or wheezing abd: no rebound or guarding ,nt, bs present. ext pulses present , no cyanosis neuro: axo3 , nonfocal patient DS: Data Data Completed and Pending Labs on day of discharge: Laboratory Results - last 24 hr 12/04/20 12/04/20 05:44 05:44 WBC 13.1 H RBC 4.55 Hgb 11.8 L Hct 37.9 MCV 83.3 MCH 25.9 L MCHC 31.1 RDW 14.1 Plt Count 380 MPV 9.1 L Immature Gran % (Auto) 1.5 H Neut % (Auto) 71.7 Lymph % (Auto) 18.1 L [place] % (Auto) 8.4 Eos % (Auto) 0.1 Baso % (Auto) 0.2 Lymph # (Auto) 2.4 [place] # (Auto) 1.1 Eos # (Auto) 0.0 Baso # (Auto) 0.0 Abs Immat Gran (auto) 0.20 H Absolute Neuts (auto) 9.4 H Absolute Nucleated RBC 0.000 Nucleated RBC % (auto) 0.0 Sodium 142 Potassium 3.9 Chloride 104 Carbon Dioxide 29 Anion Gap 13 BUN 23 H Creatinine 0.73 Estim Creat Clear Calc 75.4 Estimated GFR > 60 Random Glucose 82 Calcium 9.1 Discharge Plan Discharge Patient Disposition: Home Health Service Discharge Diagnosis: copd excerbation Referrals: [facility] [Outside] - 1 Week Physician,Unknown [Physician] - 1 Week Discharge Medications: Continued pantoprazole 40 mg tablet,delayed release (DR/EC) 40 mg PO DAILY Qty: 60 RF: 1 sucralfate 1 gram tablet 1 tab PO QID RF: 0 docusate sodium 100 mg capsule 100 mg PO BID RF: 0 albuterol sulfate 90 mcg/actuation HFA aerosol inhaler 2 puff PO Q4H PRN (Reason: dyspnea) RF: 0 guaifenesin 100 mg/5 mL Liquid 200 mg PO Q6H 7 Days Qty: 280 RF: 0 amoxicillin-pot clavulanate 875-125 mg Tablet 875 mg PO Q12H Qty: 10 RF: 0 albuterol sulfate 0.63 mg/3 mL solution for nebulization 0.63 mg inhalation Q4-6H PRN (Reason: shortness of breath or wheezing) Qty: 90 RF: 0 divalproex 250 mg tablet extended release 24 hr 250 mg PO BEDTIME RF: 0 loratadine 10 mg tablet 10 mg PO DAILY RF: 0 fluticasone propionate 50 mcg/actuation spray,suspension 2 spray intranasal DAILY RF: 0 zafirlukast 20 mg tablet 20 mg PO BID RF: 0 fluticasone propion-salmeterol 250-50 mcg/dose blister with device 1 inh inhalation BID PRN (Reason: Wheezing) RF: 0 cyanocobalamin (vitamin B-12) 1,000 mcg tablet 1,000 mcg PO DAILY RF: 0 cholecalciferol (vitamin D3) 50 mcg (2,000 unit) tablet 50 mcg PO DAILY RF: 0 azelastine 137 mcg (0.1 %) aerosol,spray 1 - 2 spray intranasal BID RF: 0 hydroxyzine pamoate 25 mg capsule 25 mg PO BID PRN (Reason: Anxiety) RF: 0 acetaminophen 650 mg tablet extended release 650 mg PO Q6H PRN (Reason: Pain) RF: 0 clonazepam 1 mg tablet 1 mg PO BID RF: 0 Linzess 290 mcg capsule 290 mcg PO QAM 30 Days Qty: 30 RF: 4 Discontinued prednisone 10 mg tablet See Taper mg PO DAILY Qty: 30 RF: 0 Discharge Orders: Discharge Order (Routine); Ordered 12/04/20 Ordered By: Becky Hunt Diet: advance to usual diet Activity on Discharge: As tolerated Stand Alone Forms: Patient Portal Discharge page Care Plan Goals: Acute respiratory failure with hypoxia-Acute exacerbation of COPD/asthma Patient was started on IV steroids, nebs, continue on her p.o. antibiotics. Seems to be improved, patient with p.o. steroids, her p.o. antibiotic course. Leukocytosis thought to be probably secondary to steroid use.no fevers Monitor CBC with PCP Patient did not qualify for home oxygen. For patient was advised to follow up with Pulmonary outpatient. Patient management discussed with patient in detail with the help of american sign language interpreter , further management outpatient as per PCP. Health Concerns: As above. Plan of Treatment: As above. Assessment: as above. Discharge Date/Time: 12/04/20 13:03
== END 2020-12-04 13:03 | disposition home health service (06) | DRG 193 ==
LOC: HO.ED 16:24 → HO.EDOVER 16:32 → HO.S3 18:40
PROVIDERS: Nurse Practitioner Family; Admitting Provider Student in an Organized Health Care Education/Training Program; Emergency Provider Emergency Medicine; PCP Family Medicine; Visit Provider Internal Medicine
DX: J18.9 Pneumonia, unspecified organism (principal); J96.01 Acute respiratory failure with hypoxia; J44.0 Chronic obstructive pulmonary disease with (acute) lower respiratory infection; J45.901 Unspecified asthma with (acute) exacerbation; J44.1 Chronic obstructive pulmonary disease with (acute) exacerbation; F41.9 Anxiety disorder, unspecified; D72.829 Elevated white blood cell count, unspecified; K21.9 Gastro-esophageal reflux disease without esophagitis; Z20.822 Contact with and (suspected) exposure to COVID-19; Z87.891 Personal history of nicotine dependence; Z79.51 Long term (current) use of inhaled steroids; Z79.899 Other long term (current) drug therapy
CPT/HCPCS: 0241U; 36415; 71045; 71046; 71250; 80048; 80076; 83605; 83735; 83880; 84484; 85025; 85027; 85610; 87040; 87635; 93005; 94640; 96365; 96366; 96368; 96375; 97161; 99285; J0456; J0696; J1650; J2060; J2920; J2930; J3475

== ENCOUNTER 2020-12-11 09:58 | Outpatient (REF) | payer MEDICARE, SELFPAY ==
[2020-12-11 11:45] LABS: MANUAL DIFF FLAG NO
[2020-12-11 12:08] LABS: Basophils Percent Auto 0.1 % (0-2); Eosinophils Absolute Auto 0.1 X10*3/uL (0.0-0.4); Eosinophils Percent Auto 1.1 % (0-4); Hematocrit 40.4 % (37-47); Hemoglobin 12.4 g/dl (12.0-16.0); Imm Gran Abs Auto 0.14 X10*3/uL (0.00-0.03); Imm Gran Pct Auto 1.3 % (0.0-0.4); Lymphocytes Absolute Auto 2.2 X10*3/uL (1.2-4.9); Lymphocytes Percent Auto 20.2 % (20-40); Mean Corpuscular HGB Conc 30.7 g/dl (31.0-35.0); Mean Corpuscular Hemoglobin 26.3 pg (27.0-33.0); Mean Corpuscular Volume 85.8 fL (80-98); Mean Platelet Volume 9.2 fL (9.4-12.3); Monocytes Absolute Auto 0.9 X10*3/uL (0.1-1.2); Monocytes Percent Auto 8.2 % (2-11); Neutrophils Absolute Auto 7.5 X10*3/uL (2.0-8.3); Neutrophils Percent Auto 69.1 % (45-73); Platelet Count 383 X10*3/uL (160-400); Red Blood Count 4.71 X10*6/uL (4.20-5.50); Red Cell Distribution Width 14.5 % (11.0-16.0); White Blood Count 10.8 X10*3/uL (4.8-10.8)
== END 2020-12-11 09:59 | disposition home or self-care (01) ==
LOC: HO.LAB 09:58
PROVIDERS: PCP Family Medicine; Visit Provider Internal Medicine
DX: D72.829 Elevated white blood cell count, unspecified (principal); R53.1 Weakness; R53.83 Other fatigue; J44.1 Chronic obstructive pulmonary disease with (acute) exacerbation; J30.9 Allergic rhinitis, unspecified; F41.9 Anxiety disorder, unspecified; Z88.1 Allergy status to other antibiotic agents; Z88.7 Allergy status to serum and vaccine; Z87.891 Personal history of nicotine dependence; Z96.651 Presence of right artificial knee joint; Z79.899 Other long term (current) drug therapy
CPT/HCPCS: 36415; 85025; 99212

== ENCOUNTER 2020-12-23 10:45 | Outpatient (REF) | payer MEDICARE, SELFPAY ==
--- NOTE | ~2020-12-23 | US_ITS ---
EXAMINATION: US LOWER EXTREMITY DUPLEX, BILATERAL CLINICAL INFORMATION: Left leg pain worse with ambulation. TECHNIQUE: Real-time ultrasound and Doppler techniques (integrating B-mode 2-D vascular images, Doppler spectral analysis and color flow Doppler imaging) were utilized to interrogate the lower extremities. COMPARISON: None FINDINGS: RIGHT LEG: Common femoral artery: 146 cm/s, Triphasic Profunda femoris artery: 78 cm/s, biphasic Superficial femoral artery (proximal): 119 cm/s, Triphasic Superficial femoral artery (mid): 84.9 cm/s, Triphasic Superficial femoral artery (distal): 91 cm/s, Triphasic Popliteal artery: 69.8 cm/s, Triphasic Posterior tibial artery: 76.2 cm/s, Triphasic LEFT LEG: Common femoral artery: 162 cm/s, Triphasic Profunda femoris artery: 72.7 cm/s, Triphasic Superficial femoral artery (proximal): 88 cm/s, Triphasic Superficial femoral artery (mid): 80 cm/s, Triphasic Superficial femoral artery (distal): 79.7 cm/s, Triphasic Popliteal artery: 64.5 cm/s, Triphasic Posterior tibial artery: 111 cm/s, Triphasic US/US arterial duplex LE BI IMPRESSION: There is no evidence of any hemodynamically significant lower extremity arterial disease by duplex Doppler criteria.
== END 2020-12-23 10:46 | disposition home or self-care (01) ==
LOC: HO.US 10:45
PROVIDERS: PCP Family Medicine; Visit Provider Family Medicine
DX: M79.605 Pain in left leg (principal)
CPT/HCPCS: 93925

== ENCOUNTER 2021-01-05 10:14 | Outpatient (REF) | payer MEDICARE, SELFPAY ==
--- NOTE | ~2021-01-05 | XR_ITS ---
EXAMINATION: XR KNEE, BILATERAL CLINICAL INFORMATION: Bilateral knee pain, worsening. COMPARISON: Right knee 03/24/2017. TECHNIQUE: 4 views of each knee. FINDINGS: Right Knee: The total knee arthroplasty components are stable in position and alignment without evidence of loosening or fracture. Small joint effusion. 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 No fracture. No suspicious bone lesion. XR/XR knee LT 4V IMPRESSION: RIGHT KNEE: Stable appearance of the total knee arthroplasty. No new abnormality. LEFT KNEE: [id number] tricompartmental osteoarthritis with a small joint effusion.
--- NOTE | ~2021-01-05 | XR_ITS ---
EXAMINATION: XR KNEE, BILATERAL CLINICAL INFORMATION: Bilateral knee pain, worsening. COMPARISON: Right knee 03/24/2017. TECHNIQUE: 4 views of each knee. FINDINGS: Right Knee: The total knee arthroplasty components are stable in position and alignment without evidence of loosening or fracture. Small joint effusion. Left Knee: [id number] tricompartmental osteoarthritis with a small joint effusion. No fracture. No suspicious bone lesion. XR/XR knee RT 4V IMPRESSION: RIGHT KNEE: Stable appearance of the total knee arthroplasty. No new abnormality. LEFT KNEE: [id number] tricompartmental osteoarthritis with a small joint effusion.
== END 2021-01-05 10:15 | disposition home or self-care (01) ==
LOC: HO.XRAY 10:14
PROVIDERS: PCP Family Medicine; Visit Provider Family Medicine
DX: M25.561 Pain in right knee (principal); M25.562 Pain in left knee
CPT/HCPCS: 73564

== ENCOUNTER → 2021-01-26 10:59 | Outpatient (BNVA) | payer MEDICARE, SELFPAY | PROVIDERS: PCP Family Medicine; Visit Provider Internal Medicine | DX: J30.9 Allergic rhinitis, unspecified (principal); J44.9 Chronic obstructive pulmonary disease, unspecified; F41.9 Anxiety disorder, unspecified | CPT/HCPCS: 99212 ==

== ENCOUNTER → 2021-01-30 14:03 | Outpatient (BNVA) | payer MEDICARE, SELFPAY | PROVIDERS: Visit Provider Nurse Practitioner | DX: K21.9 Gastro-esophageal reflux disease without esophagitis (principal); K59.04 Chronic idiopathic constipation; Z79.899 Other long term (current) drug therapy | CPT/HCPCS: Q3014 ==

== ENCOUNTER → 2021-02-23 12:31 | Outpatient (BNVA) | payer MEDICARE, SELFPAY | PROVIDERS: PCP Family Medicine; Referring Provider Family Medicine; Visit Provider Nurse Practitioner | DX: K21.9 Gastro-esophageal reflux disease without esophagitis (principal); K59.04 Chronic idiopathic constipation; R10.10 Upper abdominal pain, unspecified | CPT/HCPCS: 99212 ==

== ENCOUNTER 2021-02-24 08:30 | Outpatient (REF) | payer MEDICARE, SELFPAY ==
--- NOTE | ~2021-02-24 | US_ITS ---
EXAMINATION: US ABDOMEN COMPLETE CLINICAL INFORMATION: Upper abdominal pain, unspecified. COMPARISON: Ultrasound abdomen 08/24/2016 and 05/03/2016. CT abdomen and pelvis 03/30/2016. TECHNIQUE: Real-time imaging of the abdominal viscera. FINDINGS: PANCREAS: Normal. ABDOMINAL AORTA: The proximal, mid, and distal segments are normal in caliber. INFERIOR VENA CAVA: Visualized portions are normal. LIVER: Normal. The liver is normal in size. The liver contour is normal. Parenchymal echogenicity is normal. No focal hepatic lesion. There is no intrahepatic biliary duct dilatation seen. GALLBLADDER: Normal. The gallbladder is physiologically distended without evidence of stones, sludge, polyps, wall thickening or pericholecystic fluid. COMMON BILE DUCT: Normal in caliber measuring 0.4 cm in diameter. RIGHT KIDNEY: Normal. No hydronephrosis. No renal calculi or focal parenchymal lesions. The kidney measures 10.3 cm in maximum dimension. LEFT KIDNEY: Small left extrarenal pelvis, unchanged. No hydronephrosis. No renal calculi or focal parenchymal lesions. The kidney measures 10.7 cm in maximum dimension. SPLEEN: Normal. The spleen measures 8.7 cm in maximum dimension. FREE FLUID: None. US/US abdomen complete IMPRESSION: Unremarkable examination.
== END 2021-02-24 08:31 | disposition home or self-care (01) ==
LOC: HO.US 08:30
PROVIDERS: PCP Family Medicine; Visit Provider Nurse Practitioner
DX: R10.10 Upper abdominal pain, unspecified (principal)
CPT/HCPCS: 76700

== ENCOUNTER 2021-03-04 09:42 | Outpatient (REF) | payer MEDICARE, SELFPAY ==
--- NOTE | 2021-03-04 | EMG_ITS ---
This is a 65-year-old woman with a history of uncomfortable restless feeling in the legs for the last 2 months, left more than right without any pain, numbness, or tingling. PHYSICAL EXAMINATION: She is alert and oriented with normal intellectual functions. Cranial nerves II through XII are normal. Muscle tone and strength are normal in all 4 extremities. IMPRESSION: Probable restless legs syndrome. Rule out sensory neuropathy. Nerve conduction EMG study: Normal electrodiagnostic study of both lower extremities with absent sensory potentials in the peroneal nerve. Normal EMG of the right L4-S1 innervated muscles. MD DEANDRE Haque/R[place] / [id number]
== END 2021-03-04 09:43 | disposition home or self-care (01) ==
LOC: HO.NEURO 09:42
PROVIDERS: PCP Family Medicine; Visit Provider Family Medicine
DX: R29.898 Other symptoms and signs involving the musculoskeletal system (principal)
CPT/HCPCS: 95885; 95912

== ENCOUNTER → 2021-03-30 13:19 | Outpatient (BNVA) | payer MEDICARE, SELFPAY | PROVIDERS: PCP Family Medicine; Visit Provider Internal Medicine | DX: J44.9 Chronic obstructive pulmonary disease, unspecified (principal); J30.9 Allergic rhinitis, unspecified; D72.829 Elevated white blood cell count, unspecified; F41.9 Anxiety disorder, unspecified; Z87.891 Personal history of nicotine dependence; Z88.1 Allergy status to other antibiotic agents; Z88.7 Allergy status to serum and vaccine; Z79.899 Other long term (current) drug therapy | CPT/HCPCS: 99212 ==

== ENCOUNTER → 2021-04-10 12:43 | Outpatient (BNVA) | payer MEDICARE, SELFPAY | PROVIDERS: PCP Family Medicine; Referring Provider Family Medicine; Visit Provider Nurse Practitioner | DX: K59.04 Chronic idiopathic constipation (principal); K21.9 Gastro-esophageal reflux disease without esophagitis | CPT/HCPCS: 99212 ==

== ENCOUNTER 2021-05-13 11:43 | Emergency (ER) | payer MEDICARE, SELFPAY ==
--- NOTE | ~2021-05-13 | CT_ITS ---
EXAMINATION: CT HEAD WITHOUT CONTRAST CLINICAL INFORMATION: Dizziness COMPARISON: MR brain 11/30/2019, CT brain 10/01/2014 TECHNIQUE: Contiguous axial imaging was performed from the skull base to vertex without intravenous administration of contrast. Additional 2-D coronal and sagittal reformatted images are generated on the CT workstation and uploaded to PACS. This CT examination was performed using dose optimization techniques as appropriate, variously including the following: *Automated exposure control *Adjustment of mA and/or kV according to patient size (this includes techniques or standardized protocols for targeted exams where dose is matched to indication/reason for exam; i.e. extremities or head) *Use of iterative reconstruction technique DLP: 605 mGy-cm FINDINGS: There is no intracranial hemorrhage, hematoma, or extra-axial fluid collection. The ventricles are normal in size. There is no hydrocephalus, edema, or mass effect. The gomez-white matter differentiation appears symmetric. There is no visible acute territorial infarct or mass lesion. The calvarium appears intact. There is no pneumocephalus or orbital emphysema. The visualized sinuses and middle ears and mastoid air cells show no significant mucosal thickening. There are no air-fluid levels. CT/CT head/brain wo con IMPRESSION: No acute intracranial abnormality.
--- NOTE | ~2021-05-13 | XR_ITS ---
EXAMINATION: XR CHEST CLINICAL INFORMATION: Dizziness COMPARISON: Chest radiographs 12/03/2020, 11/28/2020, 11/24/2020; CT chest noncontrast 12/03/2020 TECHNIQUE: Frontal view of the chest was obtained. FINDINGS: Lungs are clear. The vascularity is normal. There is no pneumothorax or airspace consolidation or effusion. The costophrenic sulci are clear. The heart is normal in size. The hilar contours are unremarkable. Tortuous descending aorta is again noted. No acute bony abnormality. XR/XR chest 1V IMPRESSION: Unremarkable examination.
[2021-05-13 11:45] VITALS: BP 114/62; PULSE 88; RESP 18; TEMP 36.4; O2SAT 98; BMI 27.2
--- NOTE | 2021-05-13 14:49 | ED_ITS ---
HPI - General Adult General Chief complaint: Abdominal Pain Stated complaint: dizziness, weakness Time Seen by Provider: 05/13/21 14:43 Source: patient and park interpreter Mode of arrival: ambulatory Limitations: no limitations History of Present Illness HPI narrative: 74-year-old female came in for evaluation of dizziness and abdominal pain. Two days of feeling dizzy, feels mixture of lightheadedness and room spinning, symptoms are intermittent, change positions make it worse, patient declined any other weakness numbness. Patient also been complaining of abdominal pain since this morning, but no nausea, no vomiting. Last time patient felt dizzy was yesterday morning. Patient declined any chest pain or shortness of breath. Related Data Home Medications Medication Instructions Recorded Confirmed azelastine 137 mcg (0.1 %) nasal 1 - 2 spray INTRANASAL BID 05/21/20 03/30/21 spray aerosol cholecalciferol (vitamin D3) 50 50 mcg PO DAILY 05/21/20 03/30/21 mcg (2,000 unit) tablet cyanocobalamin (vitamin B-12) 1,000 mcg PO DAILY 05/21/20 03/30/21 1,000 mcg tablet divalproex 250 mg tablet,extended 250 mg PO BEDTIME 05/21/20 03/30/21 release 24 hr fluticasone 250 mcg-salmeterol 50 1 inh INHALATION BID PRN 05/21/20 03/30/21 mcg/dose blistr powdr for inhalation fluticasone propionate 50 2 spray INTRANASAL DAILY 05/21/20 03/30/21 mcg/actuation nasal spray,suspension loratadine 10 mg tablet 10 mg PO DAILY 05/21/20 03/30/21 zafirlukast 20 mg tablet 20 mg PO BID 05/21/20 03/30/21 acetaminophen 650 mg 650 mg PO Q6H PRN 07/29/20 03/30/21 tablet,extended release clonazepam 1 mg tablet 1 mg PO BID 07/29/20 03/30/21 hydroxyzine pamoate 25 mg capsule 25 mg PO BID PRN 07/29/20 03/30/21 albuterol sulfate 90 mcg/actuation 2 puff PO Q4H PRN 11/28/20 03/30/21 aerosol inhaler sumatriptan succinate 100 mg tablet 100 mg PO DAILY PRN 01/26/21 03/30/21 docusate sodium 100 mg capsule 100 mg PO BID 04/10/21 tiotropium bromide 1.25 2 puff INHALATION DAILY 04/10/21 mcg/actuation mist for inhalation (Spiriva Respimat) Previous Rx's Medication Instructions Recorded albuterol sulfate 0.63 mg/3 mL 0.63 mg (3 mL) INHALATION Q4-6H 12/02/20 solution for nebulization PRN #90 ml guaifenesin 100 mg/5 mL oral liquid 200 mg (10 mL) PO Q6H 7 Days #280 12/02/20 ml bisacodyl 5 mg tablet,delayed 10 mg PO BEDTIME 30 Days #60 tab 01/30/21 release (Dulcolax (bisacodyl)) pantoprazole 40 mg tablet,delayed 40 mg PO BID 30 Days #60 tab 01/30/21 release plecanatide 3 mg tablet (Trulance) 3 mg PO DAILY 30 Days #30 tab 02/23/21 calcium polycarbophil 625 mg 1,250 mg PO BID 30 Days #120 tab 04/06/21 tablet (Fiber Laxative (calcium polycarbophil)) meclizine 25 mg tablet 25 mg PO BID PRN #20 tab 05/13/21 Allergies Allergy/AdvReac Type Severity Reaction Status Date / Time vancomycin [VANCOMYCIN] Allergy Severe REDNESS,ANDI Verified 04/10/21 12:51 H,SWELLING Tetanus & Diphtheria Allergy Severe FEVER,DIFF. Uncoded 04/10/21 12:51 Tox,Adult BREATHING Review of Systems Review of Systems: All other systems are reviewed and are negative Constitutional: Reports as per HPI and Reports no additional constitutional complaints Eyes: Reports as per HPI and Reports no additional eye complaints Reports system reviewed and no additional complaints, except as documented Cardiovascular: Reports as per HPI and Reports no additional cardiovascular complaints Respiratory: Reports as per HPI and Reports no additional respiratory complaints Gastrointestinal: Reports as per HPI and Reports no additional gastrointestinal complaints Genitourinary: Reports no additional female genitourinary complaints Musculoskeletal: Reports no additional musculoskeletal complaints Skin/Breast: Reports system reviewed and no additional complaints, except as docu Psychiatric: Reports no additional psychiatric complaints Endocrine: Reports no additional endocrine complaints Hematologic/Lymphatic: Reports no additional hematologic/lymphatic complaints Allergic/Immunologic: Reports no additional allergic/immunologic complaints Reports system reviewed and no additional complaints, except as documented and Reports Abnormal speech present PMFSH Past Medical History Medical History Allergic rhinitis (~12/11/20) Anxiety COPD (chronic obstructive pulmonary disease) COPD (chronic obstructive pulmonary disease) COPD exacerbation Leukocytosis Surgical History History of ear surgery History of esophagogastroduodenoscopy (EGD) History of right knee joint replacement Hx of colonoscopy Family History Family History Father Diabetes Mother Diabetes Osteoporosis HTN (hypertension) Sister Pancreas cancer Social History Social History Household Members: None Housing: Apartment Do you presently have visiting nurse or other home services: Yes Alcohol intake: never Patient Tobacco Use Status: Former Tobacco user Tobacco use type: Cigarette Advance Directives: No Advance Directives Date on File: 11/28/20 service: No Current occupational status: unemployed Physical Exam Vital Signs: Vital Signs: Last Vital Signs Temp 97.5 F 05/13/21 11:45 Pulse 77 05/13/21 16:39 Resp 18 05/13/21 16:39 BP 144/76 H 05/13/21 16:39 Pulse Ox 98 05/13/21 16:39 Body Mass Index 27.2 Vital signs have been reviewed as appeared to be correct. Blood pressure no rmal. Heart rate normal. Respiration rate normal. Temperature normal. Oxygen saturation normal. Appearance: Alert. Oriented X3. No acute distress. Head: Normal external exam. Normocephalic. Atraumatic. No Pruitt signs noted. No raccoon eyes noted Eyes: PERRLA. EOMI. Conjunctiva and sclera normal. Eyelids normal. ENT: TM's Normal. Pharynx normal. Uvula midline. Moist mucous membranes. No trismus noted. No drooling noted. No muffled voice noted. Neck: Normal inspection. Neck supple. FROM. No adenopathy. Thyroid Normal. No meningeal signs. No neck mass noted. CVS: Normal heart rate and rhythm. Heart sound normal. No murmurs noted. Pulses normal throughout. Respiratory: No respiratory distress. Painless inspiration. Breath sounds normal. No wheezes/rales/rhonchi noted. Chest nontender. No accessory muscle usage noted or decreased air movement noted. Abdomen: Soft and nontender. Bowel sounds normal in all 4 quadrants. No distention noted. No organomegaly noted. No visible injury noted. Back: No CVA tenderness. Full range of motion noted. Skin: Skin warm and dry. Normal skin color. Normal skin turgor. No rashes/lesions/lacerations noted. Extremities: No lower extremity edema. Extremities exhibit normal range of motion. Extremities nontender. Neuro: Oriented X 3. Cranial nerve exam: II-XII are grossly intact No motor deficit. No sensory deficit. Reflexes normal. NIH Stroke Scale Level of Consciousness: Alert Level of Consciousness Questions: Answers both questions correctly Level of Consciousness Commands: Performs both tasks correctly Best Gaze: Normal Visual: No visual loss Facial Palsy: Normal Motor Arm (Right): No drift Motor Arm (Left): No drift Motor Leg (Right): No drift Motor Leg (Left): No drift Limb Ataxia: Absent Sensory: Normal Best Language: No aphasia Dysarthia: Normal Extinction and Inattention: No abnormality Score: 0 Course Course Course Narrative: Assessment and plan. 65-year-old female came in with dizziness, abdominal pain, labs/CT/physical exam are consistent with peripheral vertigo, and a benign abdominal pain. Medical Decision Making Medical Records Medical records reviewed: Yes I reviewed the patient's medical records. Lab Data Lab results reviewed: Yes I reviewed the patient's lab results. Result diagrams: 05/13/21 15:18 05/13/21 15:18 Labs: Lab Results 05/13/21 05/13/21 05/13/21 Range/Units 15:18 15:18 15:18 WBC 10.7 (4.8-10.8) X10*3/uL RBC 4.62 (4.20-5.50) X10*6/uL Hgb 12.0 (12.0-16.0) g/dl Hct 38.8 (37.0-47.0) % MCV 84.0 (80.0-98.0) fL MCH 26.0 L (27.0-33.0) pg MCHC 30.9 L (31.0-35.0) g/dl RDW 14.8 (11.0-16.0) % Plt Count 332 (160-400) X10*3/uL MPV 9.2 L (9.4-12.3) fL Immature Gran % (Auto) 0.1 (0.0-0.4) % Neut % (Auto) 74.3 H (45-73) % Lymph % (Auto) 17.5 L (20-40) % [place] % (Auto) 6.4 (2-11) % Eos % (Auto) 1.5 (0-4) % Baso % (Auto) 0.2 (0-2) % Lymph # (Auto) 1.9 (1.2-4.9) X10*3/uL [place] # (Auto) 0.7 (0.1-1.2) X10*3/uL Eos # (Auto) 0.2 (0.0-0.4) X10*3/uL Baso # (Auto) 0.0 (0.0-0.2) X10*3/uL Abs Immat Gran (auto) 0.01 (0.00-0.03) X10*3/uL Absolute Neuts (auto) 7.92 (2.0-8.3) x10*3/uL Absolute Nucleated RBC 0.000 (0.0-0.012) X10*3/uL Nucleated RBC % (auto) 0.0 (0.0-0.2) /100WBC Sodium 140 (135-145) mmol/L Potassium 4.5 (3.3-5.1) mmol/L Chloride 105 (96-108) mmol/L Carbon Dioxide 29 (22-29) mmol/L Anion Gap 11 L (12-20) BUN 14 (9-16) mg/dL Creatinine 0.81 (0.5-1.4) mg/dL Estim Creat Clear Calc 75.3 Estimated GFR > 60 Random Glucose 126 H (60-115) mg/dL Calcium 9.5 (8.4-10.2) mg/dL Troponin I High Sens < 3.5 (<3.5-17.0) ng/L Lipase 17 (8-78) U/L Urine Color Urine Appearance Urine pH (5.0-8.0) Ur Specific [place] (1.005-1.025) Urine Protein (NEG-TRACE) MG/DL Urine Glucose (UA) (NEG) MG/DL Urine Ketones (NEG) MG/DL Urine Blood (NEG) Urine Nitrite (NEG) Ur Leukocyte Esterase (NEG) 05/13/21 Range/Units 16:22 WBC (4.8-10.8) X10*3/uL RBC (4.20-5.50) X10*6/uL Hgb (12.0-16.0) g/dl Hct (37.0-47.0) % MCV (80.0-98.0) fL MCH (27.0-33.0) pg MCHC (31.0-35.0) g/dl RDW (11.0-16.0) % Plt Count (160-400) X10*3/uL MPV (9.4-12.3) fL Immature Gran % (Auto) (0.0-0.4) % Neut % (Auto) (45-73) % Lymph % (Auto) (20-40) % [place] % (Auto) (2-11) % Eos % (Auto) (0-4) % Baso % (Auto) (0-2) % Lymph # (Auto) (1.2-4.9) X10*3/uL [place] # (Auto) (0.1-1.2) X10*3/uL Eos # (Auto) (0.0-0.4) X10*3/uL Baso # (Auto) (0.0-0.2) X10*3/uL Abs Immat Gran (auto) (0.00-0.03) X10*3/uL Absolute Neuts (auto) (2.0-8.3) x10*3/uL Absolute Nucleated RBC (0.0-0.012) X10*3/uL Nucleated RBC % (auto) (0.0-0.2) /100WBC Sodium (135-145) mmol/L Potassium (3.3-5.1) mmol/L Chloride (96-108) mmol/L Carbon Dioxide (22-29) mmol/L Anion Gap (12-20) BUN (9-16) mg/dL Creatinine (0.5-1.4) mg/dL Estim Creat Clear Calc Estimated GFR Random Glucose (60-115) mg/dL Calcium (8.4-10.2) mg/dL Troponin I High Sens (<3.5-17.0) ng/L Lipase (8-78) U/L Urine Color YELLOW Urine Appearance CLEAR Urine pH 6.0 (5.0-8.0) Ur Specific [place] 1.010 (1.005-1.025) Urine Protein NEG (NEG-TRACE) MG/DL Urine Glucose (UA) NEG (NEG) MG/DL Urine Ketones NEG (NEG) MG/DL Urine Blood NEG (NEG) Urine Nitrite NEG (NEG) Ur Leukocyte Esterase NEG (NEG) Imaging Data Chest x-ray: Radiologist's impression: No acute pathology. CT scan - head: Radiologist's impression: No acute pathology. Discharge Plan Discharge Clinical Impression: Vertigo Patient Disposition: Home, Self-Care Instructions: Dizziness (ED) Prescriptions: New meclizine 25 mg tablet 25 mg PO BID PRN (Reason: dizziness) Qty: 20 RF: 0 No Action calcium polycarbophil [Fiber Laxative (ca polycarbo)] 625 mg tablet 1,250 mg PO BID 30 Days Qty: 120 RF: 2 albuterol sulfate 90 mcg/actuation HFA aerosol inhaler 2 puff PO Q4H PRN (Reason: dyspnea) RF: 0 guaifenesin 100 mg/5 mL Liquid 200 mg PO Q6H 7 Days Qty: 280 RF: 0 albuterol sulfate 0.63 mg/3 mL solution for nebulization 0.63 mg inhalation Q4-6H PRN (Reason: shortness of breath or wheezing) Qty: 90 RF: 0 sumatriptan succinate 100 mg tablet 100 mg PO DAILY PRN (Reason: headache) RF: 0 divalproex 250 mg tablet extended release 24 hr 250 mg PO BEDTIME RF: 0 loratadine 10 mg tablet 10 mg PO DAILY RF: 0 fluticasone propionate 50 mcg/actuation spray,suspension 2 spray intranasal DAILY RF: 0 zafirlukast 20 mg tablet 20 mg PO BID RF: 0 fluticasone propion-salmeterol 250-50 mcg/dose blister with device 1 inh inhalation BID PRN (Reason: Wheezing) RF: 0 cyanocobalamin (vitamin B-12) 1,000 mcg tablet 1,000 mcg PO DAILY RF: 0 cholecalciferol (vitamin D3) 50 mcg (2,000 unit) tablet 50 mcg PO DAILY RF: 0 azelastine 137 mcg (0.1 %) aerosol,spray 1 - 2 spray intranasal BID RF: 0 hydroxyzine pamoate 25 mg capsule 25 mg PO BID PRN (Reason: Anxiety) RF: 0 acetaminophen 650 mg tablet extended release 650 mg PO Q6H PRN (Reason: Pain) RF: 0 clonazepam 1 mg tablet 1 mg PO BID RF: 0 bisacodyl [Dulcolax (bisacodyl)] 5 mg tablet,delayed release (DR/EC) 10 mg PO BEDTIME 30 Days Qty: 60 RF: 6 pantoprazole 40 mg tablet,delayed release (DR/EC) 40 mg PO BID 30 Days Qty: 60 RF: 6 Trulance 3 mg tablet 3 mg PO DAILY 30 Days Qty: 30 RF: 6 docusate sodium 100 mg capsule 100 mg PO BID RF: 0 Spiriva Respimat 1.25 mcg/actuation mist 2 puff inhalation DAILY RF: 0 Referrals: Amelia Montalvo DO [Primary Care Provider] - 2 days Interventions: ED Discharge Assessment Last Done: 05/13/21 16:40 Discharge Date/Time: 05/13/21 16:40
[2021-05-13] MEDS: 0.9 % Sodium Chloride 1,000 ML 999 ML IVCONT (15:19)
[2021-05-13 15:32] LABS: Basophils Percent Auto 0.2 % (0-2); Eosinophils Absolute Auto 0.2 X10*3/uL (0.0-0.4); Eosinophils Percent Auto 1.5 % (0-4); Hematocrit 38.8 % (37.0-47.0); Imm Gran Abs Auto 0.01 X10*3/uL (0.00-0.03); Imm Gran Pct Auto 0.1 % (0.0-0.4); Lymphocytes Absolute Auto 1.9 X10*3/uL (1.2-4.9); Lymphocytes Percent Auto 17.5 % (20-40); MANUAL DIFF FLAG NO; Mean Corpuscular HGB Conc 30.9 g/dl (31.0-35.0); Mean Platelet Volume 9.2 fL (9.4-12.3); Monocytes Absolute Auto 0.7 X10*3/uL (0.1-1.2); Monocytes Percent Auto 6.4 % (2-11); Neutrophils Absolute Auto 7.92 x10*3/uL (2.0-8.3); Neutrophils Percent Auto 74.3 % (45-73); Platelet Count 332 X10*3/uL (160-400); Red Blood Count 4.62 X10*6/uL (4.20-5.50); Red Cell Distribution Width 14.8 % (11.0-16.0); White Blood Count 10.7 X10*3/uL (4.8-10.8)
[2021-05-13 15:55] LABS: Anion Gap 11 (12-20); Blood Urea Nitrogen 14 mg/dL (9-16); Calcium 9.5 mg/dL (8.4-10.2); Carbon Dioxide 29 mmol/L (22-29); Chloride 105 mmol/L (96-108); Creatinine Clr Calc Pharmacy 75.3; Estimated Glomerular Filt Rate > 60; Glucose Random 126 mg/dL (60-115); Lipase 17 U/L (8-78); Potassium 4.5 mmol/L (3.3-5.1); Sodium 140 mmol/L (135-145)
[2021-05-13 16:01] LABS: Troponin-I High Sensitivity < 3.5 ng/L (<3.5-17.0)
[2021-05-13 16:32] LABS: Appearance Urine CLEAR; Color Urine YELLOW; Glucose Urine UA NEG (NEG); Leukocyte Esterase Urine NEG (NEG); Nitrite Urine NEG (NEG); Urine Blood NEG (NEG); Urine Ketones NEG (NEG); Urine Protein NEG (NEG-TRACE)
[2021-05-13 16:39] VITALS: BP 144/76; PULSE 77; RESP 18; O2SAT 98
== END 2021-05-13 16:40 | disposition home or self-care (01) ==
PROVIDERS: Emergency Provider Emergency Medicine; PCP Family Medicine
DX: R42 Dizziness and giddiness (principal); R10.9 Unspecified abdominal pain; J44.9 Chronic obstructive pulmonary disease, unspecified
CPT/HCPCS: 36415; 70450; 71045; 80048; 81003; 83690; 84484; 85025; 96360; 99283; 99284

== ENCOUNTER → 2021-05-28 11:01 | Outpatient (BNVA) | payer MEDICARE, SELFPAY | PROVIDERS: PCP Family Medicine; Visit Provider Internal Medicine | DX: J44.9 Chronic obstructive pulmonary disease, unspecified (principal); F41.9 Anxiety disorder, unspecified; J30.9 Allergic rhinitis, unspecified; J40 Bronchitis, not specified as acute or chronic | CPT/HCPCS: 99212 ==

== ENCOUNTER 2021-06-01 07:34 | Emergency (ER) | payer MEDICARE, SELFPAY ==
--- NOTE | ~2021-06-01 | XR_ITS ---
EXAMINATION: XR CHEST CLINICAL INFORMATION: Pneumonia. Cough and wheezing. COMPARISON: Previous chest x-rays most recent 05/13/[address] November 2020 TECHNIQUE: Frontal view of the chest was obtained. FINDINGS: The cardiac and mediastinal contours are stable. There is biapical pleural thickening, right greater than left. The lungs are otherwise clear. There is no pleural effusion or pneumothorax. There is curvature of the thoracic spine to the right degenerative change. XR/XR chest 1V IMPRESSION: No evidence for acute disease in the chest.
[2021-06-01 08:25] VITALS: BP 125/83; PULSE 87; RESP 20; TEMP 36.9; O2SAT 98; BMI 25.4
[2021-06-01 08:44] LABS: COVID-19 Test Negative (Negative)
[2021-06-01 09:31] VITALS: PULSE 72; RESP 18; O2SAT 96
[2021-06-01] MEDS: Albuterol/Iprat 2.5/0.5MG 3 ML AMPUL.NEB INHALE (09:44)
[2021-06-01 09:45] VITALS: PULSE 78; O2SAT 95
[2021-06-01] MEDS: predniSONE 20 MG TABLET 60 MG PO (09:48)
--- NOTE | 2021-06-01 09:54 | ED_ITS ---
HPI - General Adult General Chief complaint: Upper Respiratory Symptoms Stated complaint: bronchitis/headache Time Seen by Provider: 06/01/21 09:14 Source: patient Mode of arrival: ambulatory Limitations: no limitations History of Present Illness HPI narrative: Patient with past medical history of asthma and COPD to the ED for coughing and wheezing. Patient recently diagnosed by her PCP for bronchitis on 05/28 and states still having coughing and inhaler not helping. She denies any leg swelling, coughing up blood, or chest pain. Patient states wheezing, body aches, and chills. Patient states she received the [employer] and then the [employer] vaccine. Patient states history of pneumonia in the past. Patient states never intubated. Patient denies any chest pain on inspiration, recent long travel, recent surgery, estrogen use,or history of blood clots. Related Data Home Medications Medication Instructions Recorded Confirmed azelastine 137 mcg (0.1 %) nasal 1 - 2 spray INTRANASAL BID 05/21/20 03/30/21 spray aerosol cholecalciferol (vitamin D3) 50 50 mcg PO DAILY 05/21/20 03/30/21 mcg (2,000 unit) tablet cyanocobalamin (vitamin B-12) 1,000 mcg PO DAILY 05/21/20 03/30/21 1,000 mcg tablet divalproex 250 mg tablet,extended 250 mg PO BEDTIME 05/21/20 03/30/21 release 24 hr fluticasone 250 mcg-salmeterol 50 1 inh INHALATION BID PRN 05/21/20 03/30/21 mcg/dose blistr powdr for inhalation fluticasone propionate 50 2 spray INTRANASAL DAILY 05/21/20 03/30/21 mcg/actuation nasal spray,suspension loratadine 10 mg tablet 10 mg PO DAILY 05/21/20 03/30/21 zafirlukast 20 mg tablet 20 mg PO BID 05/21/20 03/30/21 acetaminophen 650 mg 650 mg PO Q6H PRN 07/29/20 03/30/21 tablet,extended release clonazepam 1 mg tablet 1 mg PO BID 07/29/20 03/30/21 hydroxyzine pamoate 25 mg capsule 25 mg PO BID PRN 07/29/20 03/30/21 albuterol sulfate 90 mcg/actuation 2 puff PO Q4H PRN 11/28/20 03/30/21 aerosol inhaler sumatriptan succinate 100 mg tablet 100 mg PO DAILY PRN 01/26/21 03/30/21 docusate sodium 100 mg capsule 100 mg PO BID 04/10/21 cephalexin 500 mg capsule 500 mg PO Q6H 05/28/21 paroxetine HCl 20 mg tablet 20 mg PO BEDTIME 05/28/21 Previous Rx's Medication Instructions Recorded albuterol sulfate 0.63 mg/3 mL 0.63 mg (3 mL) INHALATION Q4-6H 12/02/20 solution for nebulization PRN #90 ml guaifenesin 100 mg/5 mL oral liquid 200 mg (10 mL) PO Q6H 7 Days #280 12/02/20 ml bisacodyl 5 mg tablet,delayed 10 mg PO BEDTIME 30 Days #60 tab 01/30/21 release (Dulcolax (bisacodyl)) pantoprazole 40 mg tablet,delayed 40 mg PO BID 30 Days #60 tab 01/30/21 release plecanatide 3 mg tablet (Trulance) 3 mg PO DAILY 30 Days #30 tab 02/23/21 calcium polycarbophil 625 mg 1,250 mg PO BID 30 Days #120 tab 04/06/21 tablet (Fiber Laxative (calcium polycarbophil)) meclizine 25 mg tablet 25 mg PO BID PRN #20 tab 05/13/21 prednisolone sodium phosphate 10 10 mg PO BID 5 Days #10 tab 05/28/21 mg disintegrating tablet benzonatate 100 mg capsule 100 mg PO TID PRN 7 Days #21 cap 06/01/21 prednisone 20 mg tablet 60 mg PO DAILY 5 Days #15 tab 06/01/21 Allergies Allergy/AdvReac Type Severity Reaction Status Date / Time vancomycin [VANCOMYCIN] Allergy Severe REDNESS,ANDI Verified 05/28/21 11:24 H,SWELLING Tetanus & Diphtheria Allergy Severe FEVER,DIFF. Uncoded 04/10/21 12:51 Tox,Adult BREATHING Review of Systems Review of Systems: Yes all other systems are reviewed and are negative Constitutional: Constitutional: Reports as per HPI, Reports no additional constitutional complaints, Reports body ache(s), Reports chills, Reports headache(s) and Denies snoring Eyes: Eyes: Reports as per HPI and Reports no additional eye complaints ENT: Reports system reviewed and no additional complaints, except as documented, Reports as per HPI and Reports headache(s) Cardiovascular: Cardiovascular: Reports as per HPI, Reports no additional cardiovascular complaints, Denies chest pain, Denies chest pain at rest, Denies chest pain with activity, Denies dyspnea and Denies dyspnea on exertion Respiratory: Respiratory: Reports as per HPI, Reports no additional respiratory complaints, Denies no additional respiratory complaints, Denies change in phlegm color, Denies chest congestion, Reports cough, Denies hemoptysis, Denies excessive phlegm production, Denies pain on inspiration, Denies pain with cough, Denies dyspnea, Denies dyspnea on exertion, Denies snoring, Denies stridor and Reports wheezing Gastrointestinal: Gastrointestinal: Reports as per HPI and Reports no additional gastrointestinal complaints Musculoskeletal: Musculoskeletal: Reports no additional musculoskeletal complaints and Reports as per HPI Neurologic: Reports system reviewed and no additional complaints, except as documented, Reports as per HPI and Reports headache(s) Psychiatric: Psychiatric: Reports no additional psychiatric complaints and Reports as per HPI Allergic/Immunologic: Allergic/Immunologic: Reports wheezing [facility] Past Medical History Medical History (Updated 06/01/21 @ 10:34 by JOSE Corona) Allergic rhinitis (~12/11/20) Anxiety Bronchitis COPD (chronic obstructive pulmonary disease) COPD (chronic obstructive pulmonary disease) COPD exacerbation Leukocytosis Surgical History History of ear surgery History of esophagogastroduodenoscopy (EGD) History of right knee joint replacement Hx of colonoscopy Family History Family History Father Diabetes Mother Diabetes Osteoporosis HTN (hypertension) Sister Pancreas cancer Social History Social History Household Members: None Housing: Apartment Do you presently have visiting nurse or other home services: Yes Alcohol intake: never Patient Tobacco Use Status: Former Tobacco user Tobacco use type: Cigarette Advance Directives: No Advance Directives Information Provided: Yes Advance Directives Date on File: 11/28/20 service: No Current occupational status: unemployed Physical Exam Vital Signs: Vital Signs: Last Vital Signs Temp 98.5 F 06/01/21 08:25 Pulse 78 06/01/21 09:45 Resp 18 06/01/21 09:31 BP 125/83 06/01/21 08:25 Pulse Ox 96 06/01/21 09:31 Body Mass Index 25.4 Const: General: cooperative, healthy appearing, comfortable, no acute distress, well developed, alert, awake and Physically active Orientation/consciousness: patient oriented x3 HENMT: Head: Yes normal to inspection, Yes No palpable skull fracture present, Yes normocephalic, Yes atraumatic, No abrasion, No Acrocyanosis present, No Pruitt's sign, No contusion, No cranial bruits, No hematoma, No laceration, No occipital foramen tenderness, No palpable skull fracture, No raccoon eyes, No scalp lesion, No scalp tenderness, No Temporal artery tenderness present and No periorbital ecchymosis Ears: hearing grossly normal bilaterally and external ears normal Throat: Yes posterior oropharynx normal, Yes tonsils normal and Yes uvula midline Eyes: General: appearance normal, both eyes and all related structures Neck: Neck: Yes normal visual inspection, Yes full ROM, Yes no lymphadenopathy, Yes no meningeal signs, Yes trachea midline, Yes supple, No anterior neck swelling and No tender Chest: Chest palpation & inspection: normal inspection of the chest and normal palpation of entire chest wall Resp: Effort & Inspection: normal respiratory effort and able to speak in complete sentences Auscultation: wheezes (Diffuse) expiratory wheezes Cardio: Jugular venous distension: no JVD Heart sounds: S1 normal heart sound present and S2 normal heart sound present GI: Inspection: Yes normal to inspection and No abdominal wall ecchymosis Palpation (GI): Soft to palpation, not firm, nontender, no guarding and not rigid : General: No CVA tenderness and Yes no CVA tenderness Back/Spine/Pelvis: Back: no CVA tenderness, No CVA tenderness and No back tenderness Skin: General skin exam: no rashes or lesions noted and elasticity normal Neuro: General: patient oriented x3, gait normal, no meningeal signs and CN's II-XI intact bilaterally Cranial nerves: Yes CN's II-XII intact bilaterally Extrem: Other: Lower extremities negative for swelling, pitting edema, or calf tenderness. General: Yes normal to inspection and Yes full ROM Psych: Appearance: grossly normal, well kempt and not disheveled Course Course Course Narrative: Patient does diffuse wheezing on lungs. O2 sat 98%. Will order albuterol nebulizer treatment with oral steroids. Will order chest x-ray check for pneumonia. Will walk patient around a.m. see to check O2 sat after treatment. Reevaluation(s) Reevaluation #1: X-ray came back negative for pneumonia. Patient lungs now sound clear. Patient walked around EM and O2 saturation maintained at 97%. Patient will be discharged with prednisone and cough medication. Patient has albuterol inhaler at home. Time: 10:32 Medical Decision Making MDM Narrative Medical decision making narrative: Asthma exacerbation Lab Data Labs: Lab Results 06/01/21 Range/Units 08:19 COVID-19 (AKASH) Negative (Negative) COVID-19 Clin Com See Note Discharge Plan Discharge Clinical Impression: Asthma, Upper respiratory infection Patient Disposition: Home, Self-Care Instructions: Asthma (ED) Additional Instructions: Frey radiograf?a result? negativa para neumon?a. frey hisopo de covid result? negativo. ellis sibilancias se resolvieron despu?s de recibir tratamiento con nebulizador de albuterol y esteroides prednisona. se le nguyen? de madhuri con esteroides y medicamentos para la tos. Contin?e usando frey inhalador de albuterol casero seg?n sea necesario. Regrese al servicio de urgencias inmediatamente si tiene alguna hinchaz?n en la pierna, dolor en la pantorrilla, tos con katia, fiebre, escalofr?os, dolor en el pecho o dificultad para respirar por el esfuerzo, debilidad, mareos o cualquier otro s?ntoma preocupante. Mars un seguimiento con el proveedor de atenci?n primaria. Prescriptions: New prednisone 20 mg tablet 60 mg PO DAILY 5 Days Qty: 15 RF: 0 benzonatate 100 mg capsule 100 mg PO TID PRN (Reason: cough) 7 Days Qty: 21 RF: 0 No Action calcium polycarbophil [Fiber Laxative (ca polycarbo)] 625 mg tablet 1,250 mg PO BID 30 Days Qty: 120 RF: 2 albuterol sulfate 90 mcg/actuation HFA aerosol inhaler 2 puff PO Q4H PRN (Reason: dyspnea) RF: 0 guaifenesin 100 mg/5 mL Liquid 200 mg PO Q6H 7 Days Qty: 280 RF: 0 albuterol sulfate 0.63 mg/3 mL solution for nebulization 0.63 mg inhalation Q4-6H PRN (Reason: shortness of breath or wheezing) Qty: 90 RF: 0 meclizine 25 mg tablet 25 mg PO BID PRN (Reason: dizziness) Qty: 20 RF: 0 sumatriptan succinate 100 mg tablet 100 mg PO DAILY PRN (Reason: headache) RF: 0 cephalexin 500 mg capsule 500 mg PO Q6H RF: 0 paroxetine HCl 20 mg tablet 20 mg PO BEDTIME RF: 0 prednisolone sodium phosphate 10 mg tablet,disintegrating 10 mg PO BID 5 Days Qty: 10 RF: 0 divalproex 250 mg tablet extended release 24 hr 250 mg PO BEDTIME RF: 0 loratadine 10 mg tablet 10 mg PO DAILY RF: 0 fluticasone propionate 50 mcg/actuation spray,suspension 2 spray intranasal DAILY RF: 0 zafirlukast 20 mg tablet 20 mg PO BID RF: 0 fluticasone propion-salmeterol 250-50 mcg/dose blister with device 1 inh inhalation BID PRN (Reason: Wheezing) RF: 0 cyanocobalamin (vitamin B-12) 1,000 mcg tablet 1,000 mcg PO DAILY RF: 0 cholecalciferol (vitamin D3) 50 mcg (2,000 unit) tablet 50 mcg PO DAILY RF: 0 azelastine 137 mcg (0.1 %) aerosol,spray 1 - 2 spray intranasal BID RF: 0 hydroxyzine pamoate 25 mg capsule 25 mg PO BID PRN (Reason: Anxiety) RF: 0 acetaminophen 650 mg tablet extended release 650 mg PO Q6H PRN (Reason: Pain) RF: 0 clonazepam 1 mg tablet 1 mg PO BID RF: 0 bisacodyl [Dulcolax (bisacodyl)] 5 mg tablet,delayed release (DR/EC) 10 mg PO BEDTIME 30 Days Qty: 60 RF: 6 pantoprazole 40 mg tablet,delayed release (DR/EC) 40 mg PO BID 30 Days Qty: 60 RF: 6 Trulance 3 mg tablet 3 mg PO DAILY 30 Days Qty: 30 RF: 6 docusate sodium 100 mg capsule 100 mg PO BID RF: 0 Stand Alone Forms: Work/School Release Interventions: ED Discharge Assessment Last Done: 06/01/21 10:42 Discharge Date/Time: 06/01/21 10:47 Print Language: Yoruba
--- NOTE | 2021-06-01 10:21 | PC.NURSE ---
PT AMBULATED 50 FT WITH STEADY GAIT, O2 97% ON ROOM AIR, NO DYSPNEA ON EXERTION.
== END 2021-06-01 10:47 | disposition home or self-care (01) ==
PROVIDERS: Emergency Provider Emergency Medicine; PCP Family Medicine
DX: J45.901 Unspecified asthma with (acute) exacerbation (principal); J06.9 Acute upper respiratory infection, unspecified; Z20.822 Contact with and (suspected) exposure to COVID-19
CPT/HCPCS: 36415; 71045; 87635; 94640; 99284

== ENCOUNTER → 2021-06-08 13:42 | Outpatient (BNVA) | payer MEDICARE, SELFPAY | PROVIDERS: PCP Family Medicine; Referring Provider Family Medicine; Visit Provider Nurse Practitioner | DX: K21.9 Gastro-esophageal reflux disease without esophagitis (principal); K59.04 Chronic idiopathic constipation; R10.10 Upper abdominal pain, unspecified | CPT/HCPCS: 99212 ==

== ENCOUNTER → 2021-06-30 13:21 | Outpatient (BNVA) | payer MEDICARE, SELFPAY | PROVIDERS: PCP Family Medicine; Referring Provider Family Medicine; Visit Provider Nurse Practitioner | DX: K21.9 Gastro-esophageal reflux disease without esophagitis (principal); K59.04 Chronic idiopathic constipation | CPT/HCPCS: 99212 ==

== ENCOUNTER → 2021-07-29 13:04 | Outpatient (BNVA) | payer MEDICARE, SELFPAY | PROVIDERS: PCP Family Medicine; Visit Provider Internal Medicine | DX: J44.9 Chronic obstructive pulmonary disease, unspecified (principal); J30.9 Allergic rhinitis, unspecified; F41.9 Anxiety disorder, unspecified | CPT/HCPCS: 99212 ==

== ENCOUNTER 2021-08-13 13:46 | Outpatient (REF) | payer MEDICARE, SELFPAY ==
--- NOTE | ~2021-08-13 | XR_ITS ---
EXAMINATION: XR BILATERAL KNEES CLINICAL INFORMATION: Bilateral knee pain COMPARISON: 12/28/2020 TECHNIQUE: 4 views of each knee FINDINGS: Right Knee: The total knee arthroplasty components are in the usual position and alignment without evidence of loosening or fracture. Left Knee: Moderate medial/lateral compartment and mild patellofemoral compartment osteoarthritis. No joint effusion. No acute osseous abnormality. XR/XR knee RT 4V IMPRESSION: Right Knee: Standard appearance of the right total knee arthroplasty. Left Knee: Mild to moderate osteoarthritis.
--- NOTE | ~2021-08-13 | XR_ITS ---
EXAMINATION: XR BILATERAL KNEES CLINICAL INFORMATION: Bilateral knee pain COMPARISON: 12/28/2020 TECHNIQUE: 4 views of each knee FINDINGS: Right Knee: The total knee arthroplasty components are in the usual position and alignment without evidence of loosening or fracture. Left Knee: Moderate medial/lateral compartment and mild patellofemoral compartment osteoarthritis. No joint effusion. No acute osseous abnormality. XR/XR knee LT 4V IMPRESSION: Right Knee: Standard appearance of the right total knee arthroplasty. Left Knee: Mild to moderate osteoarthritis.
== END 2021-08-13 13:47 | disposition home or self-care (01) ==
LOC: HO.XRAY 13:46
PROVIDERS: PCP Family Medicine; Visit Provider Family Medicine
DX: M25.561 Pain in right knee (principal); M25.562 Pain in left knee
CPT/HCPCS: 73564

== ENCOUNTER 2021-09-16 09:43 | Outpatient (REF) | payer MEDICARE, SELFPAY ==
--- NOTE | 2021-09-16 09:47 | EMG_ITS ---
This is a 66-year-old woman with pain and numbness in the left upper extremity. PHYSICAL EXAMINATION: On examination, she is alert and oriented with normal intellectual functions. Muscle tone and strength are normal. No Tinel or Phalen sign. IMPRESSION: Rule out cervical radiculopathy. Nerve conduction EMG study: Normal electrodiagnostic study of the left upper extremity. No evidence of carpal tunnel syndrome or cervical radiculopathy. Normal EMG of the left C5-T1 innervated muscles. MD DEANDRE Haque/RICO / [id number]
== END 2021-09-16 09:44 | disposition home or self-care (01) ==
LOC: HO.NEURO 09:43
PROVIDERS: PCP Family Medicine; Visit Provider Family Medicine
DX: R29.898 Other symptoms and signs involving the musculoskeletal system (principal)
CPT/HCPCS: 95885; 95910

== ENCOUNTER → 2021-09-17 14:40 | Outpatient (BNVA) | payer MEDICARE, SELFPAY | PROVIDERS: PCP Family Medicine; Visit Provider Physician Assistant | DX: M17.12 Unilateral primary osteoarthritis, left knee (principal); Z96.651 Presence of right artificial knee joint | CPT/HCPCS: 99202 ==

== ENCOUNTER 2021-09-28 13:27 | Outpatient (REF) | payer MEDICARE, SELFPAY ==
--- NOTE | ~2021-09-28 | XR_ITS ---
EXAMINATION: XR KNEE, BILATERAL CLINICAL INFORMATION: Right knee replacement. COMPARISON: Previous x-ray August 2021. TECHNIQUE: Standing AP view of both knees and lateral and sunrise view of the right knee. FINDINGS: RIGHT KNEE: There is a right knee replacement in satisfactory position. No fracture or dislocation is seen. There is osteopenia. There is no joint effusion. LEFT KNEE: Standing AP view of the left knee demonstrates degenerative changes at the femoral tibial joints. XR/XR knee RT 2V IMPRESSION: RIGHT KNEE: Satisfactory appearance of right knee replacement. Osteopenia. LEFT KNEE: Degenerative changes at the left femoral tibial joint.
--- NOTE | ~2021-09-28 | XR_ITS ---
EXAMINATION: XR KNEE, BILATERAL CLINICAL INFORMATION: Right knee replacement. COMPARISON: Previous x-ray August 2021. TECHNIQUE: Standing AP view of both knees and lateral and sunrise view of the right knee. FINDINGS: RIGHT KNEE: There is a right knee replacement in satisfactory position. No fracture or dislocation is seen. There is osteopenia. There is no joint effusion. LEFT KNEE: Standing AP view of the left knee demonstrates degenerative changes at the femoral tibial joints. XR/XR knee standing BI IMPRESSION: RIGHT KNEE: Satisfactory appearance of right knee replacement. Osteopenia. LEFT KNEE: Degenerative changes at the left femoral tibial joint.
== END 2021-09-28 13:28 | disposition home or self-care (01) ==
LOC: HO.HOSX 13:27
PROVIDERS: PCP Family Medicine; Visit Provider Orthopaedic Surgery
DX: T84.052A Periprosthetic osteolysis of internal prosthetic right knee joint, initial encounter (principal)
CPT/HCPCS: 73560; 73565; 99212

== ENCOUNTER → 2022-02-09 10:36 | Outpatient (BNVA) | payer OTHER, SELFPAY | PROVIDERS: PCP Family Medicine; Referring Provider Family Medicine; Visit Provider Nurse Practitioner | DX: K59.04 Chronic idiopathic constipation (principal); K21.9 Gastro-esophageal reflux disease without esophagitis | CPT/HCPCS: 99212 ==

== ENCOUNTER → 2022-02-22 10:25 | Outpatient (BNVA) | payer OTHER, SELFPAY | PROVIDERS: PCP Family Medicine; Visit Provider Orthopaedic Surgery | DX: M25.561 Pain in right knee (principal); Z96.651 Presence of right artificial knee joint; Z79.899 Other long term (current) drug therapy | CPT/HCPCS: 99212 ==

== ENCOUNTER → 2022-03-02 09:32 | Outpatient (BNVA) | payer OTHER, SELFPAY | PROVIDERS: PCP Family Medicine; Visit Provider Internal Medicine | DX: J44.9 Chronic obstructive pulmonary disease, unspecified (principal); J30.9 Allergic rhinitis, unspecified; F41.9 Anxiety disorder, unspecified | CPT/HCPCS: 94010; 99212 ==

== ENCOUNTER → 2022-03-10 10:44 | Outpatient (BNVA) | payer OTHER, SELFPAY | PROVIDERS: PCP Family Medicine; Visit Provider Nurse Practitioner | DX: K59.04 Chronic idiopathic constipation (principal); K21.9 Gastro-esophageal reflux disease without esophagitis | CPT/HCPCS: 99212 ==

== ENCOUNTER → 2022-03-22 10:19 | Outpatient (REF) | payer OTHER, SELFPAY ==
--- NOTE | ~2022-03-22 | NM_ITS ---
EXAMINATION: THREE PHASE BONE SCAN CLINICAL INFORMATION: 66-year-old female with bilateral knee pain (right greater than left), status post right knee replacement in 2011 and 2014. COMPARISON: Radiographs of both knees done on 09/28/2021. TECHNIQUE: Initial rapid sequence images were obtained over the knees during the bolus injection of 25 mCi Tc-99m MDP. Static images of the pelvis and both lower extremities were then obtained 2.75 hours post injection. FINDINGS: The initial flow phase sequence shows near symmetric radiotracer distribution around both knees. Subsequent blood pool phase shows mild asymmetric increased radiotracer activity around the left knee. The delayed phase sequences shows mild asymmetric increased radiotracer distribution around the left knee and expected periprosthetic radiotracer distribution around the right knee prosthesis. Nonspecific focal increased radiotracer activities are noted along the lateral aspect of the right ankle and medial aspect of the right first toe, may represent posttraumatic and/or degenerative changes. Radiographic correlation would be helpful for further clarification, and may be considered if clinically appropriate. The remainder of the visualized part of the lower part of the lumbosacral spine, pelvis, both hips otherwise appear unremarkable. NM/NM bone 3 phase IMPRESSION: 1. Increased radiotracer distribution is noted around the right knee prosthesis on the delayed phase sequences, without any asymmetric increased flow or blood pool activity, most consistent with postsurgical changes. There are no prior studies available for comparison. 2. The left knee shows asymmetric increased activity on the blood pool and on delayed phase sequences, given the presence of degenerative osteoarthrosis on the radiographic images were obtained on 09/29/2019, the findings may represent changes secondary to degenerative osteoarthrosis. 3. Nonspecific focal radiotracer activities around the right ankle and right foot, may represent posttraumatic and/or degenerative changes. Radiographic correlation may be considered for further clarification, if clinically appropriate.
[2022-03-22 11:44] LABS: TSH reflex Free T4 1.17 uIU/mL (0.32-4.0)
== END ==
LOC: HO.NUCMED 10:19
PROVIDERS: Absent Provider Nurse Practitioner; PCP Family Medicine; Visit Provider Orthopaedic Surgery
DX: K59.04 Chronic idiopathic constipation (principal); Z96.651 Presence of right artificial knee joint
CPT/HCPCS: 36415; 78315; 84443; A9503

== ENCOUNTER → 2022-03-31 12:50 | Outpatient (BNVA) | payer OTHER, SELFPAY | PROVIDERS: PCP Family Medicine; Referring Provider Family Medicine; Visit Provider Nurse Practitioner | DX: K59.04 Chronic idiopathic constipation (principal); K21.9 Gastro-esophageal reflux disease without esophagitis; K59.9 Functional intestinal disorder, unspecified | CPT/HCPCS: 99212 ==

== ENCOUNTER → 2022-04-05 10:32 | Outpatient (BNVA) | payer OTHER, SELFPAY | PROVIDERS: PCP Family Medicine; Visit Provider Orthopaedic Surgery | DX: M54.16 Radiculopathy, lumbar region (principal) | CPT/HCPCS: 99212 ==

== ENCOUNTER → 2022-04-14 12:54 | Outpatient (BNVA) | payer OTHER, SELFPAY | PROVIDERS: PCP Family Medicine; Visit Provider Nurse Practitioner | DX: K59.9 Functional intestinal disorder, unspecified (principal); K59.04 Chronic idiopathic constipation; K21.9 Gastro-esophageal reflux disease without esophagitis | CPT/HCPCS: 99212 ==

== ENCOUNTER → 2022-10-21 09:38 | Outpatient (BNVA) | payer OTHER, SELFPAY | PROVIDERS: PCP Family Medicine; Visit Provider Nurse Practitioner | DX: K59.04 Chronic idiopathic constipation (principal); K21.9 Gastro-esophageal reflux disease without esophagitis; Z79.899 Other long term (current) drug therapy | CPT/HCPCS: 99212 ==

== ENCOUNTER 2022-10-22 10:23 | Outpatient (REF) | payer OTHER, SELFPAY ==
--- NOTE | ~2022-10-22 | CT_ITS ---
EXAMINATION: CT HEAD WITHOUT CONTRAST CLINICAL INFORMATION: Swelling left parietal scalp COMPARISON: Previous head CT most recent May 2021 and brain MRI November 2019 TECHNIQUE: Contiguous axial imaging was performed from the skull base to vertex without intravenous administration of contrast. This CT examination was performed using dose optimization techniques as appropriate, variously including the following: *Automated exposure control *Adjustment of mA and/or kV according to patient size (this includes techniques or standardized protocols for targeted exams where dose is matched to indication/reason for exam; i.e. extremities or head) *Use of iterative reconstruction technique DLP: 657 mGy-cm FINDINGS: There is no evidence of an extra-axial collection. There is no evidence of intra-axial or extra-axial hemorrhage. The ventricles and extra-axial CSF spaces are appropriate. Mccall-white matter differentiation is normal. No mass, mass effect or infarct. Review of bone windows is normal. No skull fracture or bone lesion. Normal soft tissues. Visualized paranasal sinuses mastoid air cells and middle ears are clear. CT/CT head/brain wo IV con IMPRESSION: No acute intracranial pathology.
== END 2022-10-22 10:24 | disposition home or self-care (01) ==
LOC: HO.CT 10:23
PROVIDERS: PCP Family Medicine; Visit Provider Emergency Medicine
DX: R22.0 Localized swelling, mass and lump, head (principal)
CPT/HCPCS: 70450

== ENCOUNTER → 2022-11-15 08:35 | Outpatient (BNVA) | payer OTHER, SELFPAY | PROVIDERS: PCP Family Medicine; Visit Provider Internal Medicine | DX: J44.9 Chronic obstructive pulmonary disease, unspecified (principal); J30.9 Allergic rhinitis, unspecified; F41.9 Anxiety disorder, unspecified | CPT/HCPCS: 99212 ==

== ENCOUNTER → 2022-11-25 10:51 | Outpatient (BNVA) | payer OTHER, SELFPAY | PROVIDERS: PCP Family Medicine; Visit Provider Nurse Practitioner | DX: K59.04 Chronic idiopathic constipation (principal); K21.9 Gastro-esophageal reflux disease without esophagitis; K59.9 Functional intestinal disorder, unspecified; Z79.899 Other long term (current) drug therapy | CPT/HCPCS: 99212 ==

== ENCOUNTER 2022-12-03 09:23 | Outpatient (REF) | payer OTHER, SELFPAY ==
--- NOTE | ~2022-12-03 | XR_ITS ---
EXAMINATION: XR BOTH KNEES AP STANDING XR right and left KNEE, 2 VIEWS CLINICAL INFORMATION: Pain COMPARISON: 09/28/2021 TECHNIQUE: Standing AP view of both knees and lateral and sunrise views of the right and left knee. FINDINGS: LEFT KNEE: Bones and soft tissues are normal. No fracture or joint effusion. Alignment is anatomic. Joint spaces are well maintained. No abnormal soft tissue calcification. RIGHT KNEE: Knee prosthesis intact. No plain film evidence for loosening. No joint effusion. Bones and soft tissues are normal. No fracture or joint effusion. Alignment is anatomic. Joint spaces are well maintained. No abnormal soft tissue calcification. XR/XR knee standing BI IMPRESSION: Stable findings. No change from 09/28/2021. The right knee prosthesis is intact.
--- NOTE | ~2022-12-03 | XR_ITS ---
EXAMINATION: XR BOTH KNEES AP STANDING XR right and left KNEE, 2 VIEWS CLINICAL INFORMATION: Pain COMPARISON: 09/28/2021 TECHNIQUE: Standing AP view of both knees and lateral and sunrise views of the right and left knee. FINDINGS: LEFT KNEE: Bones and soft tissues are normal. No fracture or joint effusion. Alignment is anatomic. Joint spaces are well maintained. No abnormal soft tissue calcification. RIGHT KNEE: Knee prosthesis intact. No plain film evidence for loosening. No joint effusion. Bones and soft tissues are normal. No fracture or joint effusion. Alignment is anatomic. Joint spaces are well maintained. No abnormal soft tissue calcification. XR/XR knee RT 2V IMPRESSION: Stable findings. No change from 09/28/2021. The right knee prosthesis is intact.
== END 2022-12-03 09:24 | disposition home or self-care (01) ==
LOC: HO.HOSX 09:23
PROVIDERS: Visit Provider Orthopaedic Surgery
DX: M17.12 Unilateral primary osteoarthritis, left knee (principal); M54.16 Radiculopathy, lumbar region; Z96.651 Presence of right artificial knee joint
CPT/HCPCS: 20610; 73560; 73565; 99212; J1100

== ENCOUNTER 2023-01-21 09:00 | Outpatient (AMB) | payer OTHER, SELFPAY ==
--- NOTE | 2023-01-21 09:10 | MHC.OFFVIS ---
Intake Vital Signs 01/21/23 09:13 Height 5 ft 8 in Weight 155 lb BMI 23.6 Intake Visit Reasons: New Prob- B/L Hand O.A pain Intake Note: Maida 67 yr old female presents today for bilateral O.A hand pain. States pain begin to worsen about 1 year ago. Currently both hands hurt bad. States all her joints in her finger hurt and makes it painful to make a fist. At times she feels her hands are weak and feel tired. Denies injury, numbness or tingling. Allergies vancomycin [VANCOMYCIN] Allergy (Severe, Verified 01/21/23 09:22) REDNESS,RASH,SWELLING Tetanus & Diphtheria Tox,Adult Allergy (Severe, Uncoded 01/21/23 09:22) FEVER,DIFF.BREATHING HPI New Prob- B/L Hand O.A pain HPI Details Maida is a 67 year old right hand dominant Uzbek speaking woman who presents with complaints of bilateral hand pain, worse in the last ~1 year. She complains of pain in all joints of her fingers. She says it is very painful to make a fist, and her right middle finger feels swollen. She says motion is what hurts her hands the most, She says at times her hands feel weak and tired. She denies any numbness or tingling. She denies any falls or known injury. FOR[facility]LY [facility], [facility] Medical History Allergic rhinitis (~12/11/20) Anxiety Bronchitis COPD (chronic obstructive pulmonary disease) COPD (chronic obstructive pulmonary disease) COPD exacerbation Leukocytosis Small bowel motility disorder Surgical History History of ear surgery History of esophagogastroduodenoscopy (EGD) History of right knee joint replacement Hx of colonoscopy Family History Father Diabetes Mother Diabetes Osteoporosis HTN (hypertension) Sister Pancreas cancer Social History Household Members: None Housing: Apartment Do you presently have visiting nurse or other home services: Yes Alcohol intake: never Patient Tobacco Use Status: Former Tobacco user Tobacco use type: Cigarette Advance Directives Date on File: 11/28/20 service: No Current occupational status: unemployed and disabled 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 Review of Systems Const All systems reviewed & are unremarkable except as noted in HPI and below Physical Exam Vital Signs: BMI result Body Mass Index 23.6 Const General: cooperative, healthy appearing and no acute distress Orientation/consciousness: patient oriented x3 HEENT Head: Yes normocephalic and Yes atraumatic Eyes EOM: EOMs intact bilaterally Resp Effort & Inspection: normal respiratory effort and able to speak in complete sentences Cardio Jugular venous distension: no JVD Skin General skin exam: turgor normal Rashes: no rashes Neuro General: patient oriented x3 Extrem Other: Evaluation of Right Upper Extremity: The patient is alert, oriented, and in no acute distress Neuro: Median, Ulnar, Radial nerves motor and sensory intact and sensation is normal to the tips of all digits Vascular: Cap refill brisk ROM: She can bring all her fingers closed to a fist with good strength and back into extension Skin: No lacerations or abrasions. General: No Ecchymosis. No Erythema or evidence of infection. Mild swelling of 3rd MCP joint Some early generalized arthritic changes in the IP joints Radiographs: 3 views of the right hand were taken and viewed by me today in clinic. They show no fractures or dislocations. She has some arthritic changes in several of her PIP and DIP joints, as well as some basal joint arthritis. There appears to be some flattening of some of her MCP joints. Nerve Conduction Study: IMPRESSION:? Rule out cervical radiculopathy. ? Nerve conduction EMG study:? Normal electrodiagnostic study of the left upper extremity.? No evidence of carpal tunnel syndrome or cervical radiculopathy. ? Normal EMG of the left C5-T1 innervated muscles. ? Jared Torres MD 09/16/2021 Psych Appearance: grossly normal Affect: normal affect Attitude: cooperative Assessment & Plan Assessment & Plan (1) Osteoarthritis of right hand: Code(s): M19.041 - Primary osteoarthritis, right hand (2) Osteoarthritis of carpometacarpal joint of right thumb: Code(s): M18.11 - Unilateral primary osteoarthritis of first carpometacarpal joint, right hand (3) Osteoarthritis of left hand: Code(s): M19.042 - Primary osteoarthritis, left hand Plan Assessment & Plan: 1. Right hand osteoarthritis In multiple PIP & DIP joints 2. Right Basal joint osteoarthritis 3. Left hand osteoarthritis I educated her about this condition No operative indications or indications for injections today. I recommend motion and she resume daily activities She should limit or avoid activities which cause her pain, but I explained the importance of using her hands for daily activity to maintain her motion and reduce any pain or swelling She should also consider assistive devices to use, such as an electric can print line feeder, and she should limit or avoid any heavy lifting activities She can follow up prn Scribed for Patti Joseph MD by Donaldo Garrett, medical transport specialist, on 01/21/23 at 9:40 AM, EST. Orders: Orders XR hand RT min 3V Today M79.641 - Pain in right hand Coding Level of Care Code Est Pt Level 3 (91346) Diagnoses Osteoarthritis of right hand M19.041 Osteoarthritis of carpometacarpal joint of right thumb M18.11 Osteoarthritis of left hand M19.042
[2023-01-21 09:13] VITALS: BMI 23.6
== END 2023-01-21 10:01 | disposition home or self-care (01) ==
PROVIDERS: Visit Provider Orthopaedic Surgery
DX: M19.041 Primary osteoarthritis, right hand (principal); M18.11 Unilateral primary osteoarthritis of first carpometacarpal joint, right hand; M19.042 Primary osteoarthritis, left hand
CPT/HCPCS: 99213

== ENCOUNTER 2023-01-21 09:00 | Outpatient (REF) | payer OTHER, SELFPAY ==
--- NOTE | ~2023-01-21 | XR_ITS ---
EXAMINATION: XR HAND, RIGHT CLINICAL INFORMATION: Right hand pain. COMPARISON: Right hand 10/04/2013. TECHNIQUE: PA, lateral, and oblique views of the right hand. FINDINGS: Progressive degenerative changes are present at the DIP joint of the thumb with large osteophytes and sclerosis. Lesser degenerative changes are present at the remainder of the DIP joints as well as the PIP joints. The MCP joints appear unremarkable. Mild degenerative changes are seen at the 1st CMC joint as well as the radiocarpal joint. A small accessory ossicle or calcification is noted at the tip of the ulnar styloid. No fractures or dislocations. XR/XR hand RT min 3V IMPRESSION: Progressive degenerative changes in the hand as described above.
== END 2023-01-21 09:01 | disposition home or self-care (01) ==
LOC: HO.HOSX 09:00
PROVIDERS: Visit Provider Orthopaedic Surgery
DX: M19.042 Primary osteoarthritis, left hand (principal); M18.11 Unilateral primary osteoarthritis of first carpometacarpal joint, right hand
CPT/HCPCS: 73130; 99212

== ENCOUNTER 2023-01-24 09:50 | Outpatient (REF) | payer OTHER, SELFPAY ==
[2023-01-24 12:25] LABS: Alanine Aminotransferase 21 U/L (0-31); Albumin Level 4.4 g/dL (3.5-5.0); Alkaline Phosphatase 80 U/L (39-117); Anion Gap 14 (12-20); Aspartate Amino Transferase 16 U/L (5-31); Bilirubin Direct 0.2 mg/dL (0.0-0.5); Bilirubin Total 0.4 mg/dL (0.0-1.0); Blood Urea Nitrogen 16 mg/dL (9-16); Calcium 9.8 mg/dL (8.4-10.2); Carbon Dioxide 27 mmol/L (22-29); Chloride 104 mmol/L (96-108); Cholesterol 214 mg/dL; Estimated Glomerular Filt Rate > 60; Glucose Random 102 mg/dL (60-115); HDL Cholesterol 60 mg/dL; LDL Cholesterol Calculated 133 mg/dl; Potassium 3.7 mmol/L (3.3-5.1); Sodium 141 mmol/L (135-145); Total Protein 7.3 g/dL (6.5-8.0); Triglycerides 106 mg/dL
== END 2023-01-24 09:51 | disposition home or self-care (01) ==
LOC: HO.HHCL 09:50
PROVIDERS: Visit Provider Student in an Organized Health Care Education/Training Program
DX: R42 Dizziness and giddiness (principal); R53.1 Weakness
CPT/HCPCS: 36415; 80048; 80061; 80076

== ENCOUNTER 2023-02-04 11:54 | Outpatient (AMB) | payer OTHER, SELFPAY ==
[2023-02-04 11:58] VITALS: BP 100/59; PULSE 78; BMI 23.9
--- NOTE | 2023-02-04 11:58 | A.OFFVIS_ITS ---
Intake Vital Signs 02/04/23 11:58 Height 5 ft 8 in Weight 156 lb 15.506 oz BMI 23.9 BP 100/59 L Blood Pressure Location Lt brachial Position Sitting Pulse 78 Intake Visit Reasons: follow up appointment r/s Intake Note: Patient presents to in office visit today in follow up of GERD. CC: Patient reports she sometimes have trouble having BM.She states she has noticed than when she has a BM she starts having abdominal discomfort. Denies other GI symptoms. Heel Packer Required: No Allergies vancomycin [VANCOMYCIN] Allergy (Severe, Verified 01/21/23 09:22) REDNESS,RASH,SWELLING Tetanus & Diphtheria Tox,Adult Allergy (Severe, Uncoded 01/21/23 09:22) FEVER,DIFF.BREATHING HPI follow up appointment r/s HPI Details Assessment & Plan (1) Chronic idiopathic constipation: Code(s): K59.04 - Chronic idiopathic constipation Plan: HAITIAN #Le Sanchez She still is not moving her bowels well. Will increase the reglan to 10mg qid since she has not a/e. We have already maximized the bowel regimen since she is taking Linzess 290 micro g, 2 bisacodyl at night time Colace and fiber. I think that we really need to get the bowel moving from the top down since that is really the only pharmaceutical option we have left right now. She asks about her mother who is not moving her bowels well and has bloating. Recommend smooth move tea and that she see her PCP to make sure there are no other pathologies. At times she will have periumbilical discomfort when she does empty out. I explained that this likely is cramping because the bowel is not really well in step with itself and I hope this will get better when we start the Reglan. She continues on her pantoprazole twice a day with good control of her heartburn. ROV 3 weeks. (2) GERD (gastroesophageal reflux disease): Code(s): K21.9 - Gastro-esophageal reflux disease without esophagitis (3) Small bowel motility disorder: Code(s): K59.9 - Functional intestinal disorder, unspecified Medications: New metoclopramide HCl (Reglan) 10 mg PO QIDACHS 120 tabs 6RF K59.9 - Functional intestinal disorder, unspecified Discontinued metoclopramide HCl (Reglan) provider aware of potential interactions and is monitoring Discontinued Reason: Doctor's Order 5 mg PO QIDACHS 120 tabs 6RF K59.9 - Functional intestinal disorder, unspecified Patient Instructions: Maida Mitchell Estoy aumentando la concentraci?n del medicamento metoclopramida de tabletas de 5 mg a 10 mg. T?mese esto 4 veces al d?a: a la hora del desayuno, a la hora del almuerzo, a la hora de la after school program coordinator ya la hora de acostarse. Tambi?n contin?e con el Linzess cada ma?alonso, el docusato y el bisacodilo diariamente. Quiero verte en 3 semanas para bridget c?mo va esto. TODAY'S VISIT HAITIAN. #Izzy, Live She still has the same problems despite receiving the higher dose of reglan 10mg BUT with medication review she is not consistently taking the bisacodyl I forget and this may be why we are not getting consistent results as she says some days are good but some are bad. Her stooling tends to be very hard and she has to strain on the bad days. I have ordered all meds scheduled and in a med box format to [facility] pharmacy. The medication she is supposed to be on the are Reglan 10 mg 4 times a day, bisacodyl 2 tabs at bedtime, Colace, famotidine, pantoprazole twice a day, Linzess 290 micro g . ROV 8 weeks. [facility] Medical History Allergic rhinitis (~12/11/20) Anxiety Bronchitis COPD (chronic obstructive pulmonary disease) COPD (chronic obstructive pulmonary disease) COPD exacerbation Leukocytosis Small bowel motility disorder Surgical History History of ear surgery History of esophagogastroduodenoscopy (EGD) History of right knee joint replacement Hx of colonoscopy Family History Father Diabetes Mother Diabetes Osteoporosis HTN (hypertension) Sister Pancreas cancer Social History Household Members: None Housing: Apartment Do you presently have visiting nurse or other home services: Yes Alcohol intake: never Patient Tobacco Use Status: Former Tobacco user Tobacco use type: Cigarette Advance Directives Date on File: 11/28/20 service: No Current occupational status: unemployed and disabled 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 Review of Systems Const Denies fatigue, Denies fever(s), Denies night sweats, Denies poor appetite and Denies weight loss Eyes Details: GLASSES Reports requires corrective lenses ENT Reports Normal hearing present, Denies dental pain, Denies dysphagia, Denies hearing loss, Denies mouth pain, Denies odynophagia, Denies throat swelling, Denies tongue swelling and Reports other (Dentition adequate) Card Reports no additional complaints Resp Reports no additional complaints GI Denies abdominal pain, Denies melena, Reports bloating, Denies hematochezia, Reports constipation, Denies GI cramping, Denies dysphagia, Denies excessive flatus, Denies early satiety, Reports heartburn, Denies diarrhea, Reports nausea, Denies odynophagia, Denies vomiting and Denies hematemesis Skin/Breast Denies pruritus, Denies lesions, Denies rash and Denies jaundice Neuro Reports Normal hearing present and Denies Abnormal speech present Endo Denies fatigue Aller/Immun Denies throat swelling and Denies tongue swelling Physical Exam Vital Signs: Last Vital Signs Pulse 78 02/04/23 11:58 BP 100/59 L 02/04/23 11:58 BMI result Body Mass Index 23.9 Const General: cooperative, no acute distress, well developed and well groomed Nutritional Appearance: average body habitus and well nourished Orientation/consciousness: oriented to person, oriented to place and oriented to time Limitations: language barrier HEENT Head: Yes normocephalic and Yes atraumatic Eyes General: appearance normal, both eyes and all related structures Pupils: Equal, round and reactive pupils present Neck Neck: Yes normal visual inspection and Yes no lymphadenopathy Thyroid: Thyroid normal Resp Effort & Inspection: normal respiratory effort and able to speak in complete sentences Auscultation: clear to auscultation bilaterally Cardio Rate: regular rate Rhythm: regular rhythm Heart sounds: Normal, physiologic split S2 sound present Peripheral pulses: radial pulses present and posterior tibial pulses present GI Inspection: No distended and No Abdominal panniculus present Palpation (GI): Soft to palpation, nontender, no guarding, not rigid and No hepatosplenomegaly present Percussion: Yes normal to percussion Auscultation: normal bowel sounds Rectal Exam - Female: deferred Skin General skin exam: no rashes or lesions noted, turgor normal, skin not dry, no jaundice, No spider nevi and no striae Rashes: no rashes Nails: normal Neuro General: oriented to person, oriented to place and oriented to time Cranial nerves: Yes Equal, round and reactive pupils present and Yes Normal hearing present Speech: No Abnormal speech present Extrem General: Yes normal to inspection, No clubbing, No cyanosis and No edema Psych Appearance: grossly normal and well kempt Mental Status: mental status grossly normal Speech and movement: Normal speech and movement present Affect: normal affect Attitude: cooperative Thought process: Normal thought process present and not confabulating Thought content: Normal thought content present Insight: Limited insight present (Psych) Judgement: Limited judgement present (Psych) Assessment & Plan Assessment & Plan (1) Chronic idiopathic constipation: Code(s): K59.04 - Chronic idiopathic constipation Plan: HAITIAN. #Izzy, Live She still has the same problems despite receiving the higher dose of reglan 10mg BUT with medication review she is not consistently taking the bisacodyl I forget and this may be why we are not getting consistent results as she says some days are good but some are bad. Her stooling tends to be very hard and she has to strain on the bad days. I have ordered all meds scheduled and in a med box format to [facility] pharmacy. The medication she is supposed to be on the are Reglan 10 mg 4 times a day, bisacodyl 2 tabs at bedtime, Colace, famotidine, pantoprazole twice a day, Linzess 290 micro g . ROV 8 weeks. (2) GERD (gastroesophageal reflux disease): Code(s): K21.9 - Gastro-esophageal reflux disease without esophagitis (3) Small bowel motility disorder: Code(s): K59.9 - Functional intestinal disorder, unspecified Medications: Changed From bisacodyl 10 mg (2 x 5 mg) PO BEDTIME 60 ea 6RF K59.04 - Chronic idiopathic constipation To bisacodyl PLEASE PUT 2 EACH IN HER PILL BOX FOR BEDTIME TO PROMOTE COMPLIANCE 10 mg (2 x 5 mg) PO BEDTIME 60 ea 6RF K59.04 - Chronic idiopathic constipation From metoclopramide HCl 10 mg PO QIDACHS 120 tabs 6RF K59.9 - Functional intestinal disorder, unspecified To metoclopramide HCl (Reglan) PLEASE PUT THIS IS A PILL BOX FORMAT SCHEDULED QID 10 mg PO QID 120 tabs 6RF K59.9 - Functional intestinal disorder, unspecified From linaclotide 290 mcg PO QAM 30 days 30 caps 6RF K59.04 - Chronic idiopathic constipation To linaclotide (Linzess) PLEASE PUT IN MED BOX FORMAT 290 mcg PO QAM 30 caps 6RF 30 days K59.04 - Chronic idiopathic constipation From pantoprazole 40 mg PO BID 30 days 60 tabs 6RF K21.9 - Gastro-esophageal reflux disease without esophagitis To pantoprazole PLEASE PUT IN MED BOX FORMAT 40 mg PO BID 60 tabs 6RF 30 days K21.9 - Gastro- esophageal reflux disease without esophagitis From docusate sodium 100 mg PO BID 60 caps 6RF To docusate sodium PLEASE PUT IN MED BOX FORMAT 100 mg PO BID 60 caps 6RF Coding Level of Care Code Est Pt Level 3 (57413) Diagnoses Chronic idiopathic constipation K59.04 GERD (gastroesophageal reflux disease) K21.9 Small bowel motility disorder K59.9
== END 2023-02-04 12:24 | disposition home or self-care (01) ==
PROVIDERS: PCP Family Medicine; Visit Provider Nurse Practitioner
DX: K59.04 Chronic idiopathic constipation (principal); K21.9 Gastro-esophageal reflux disease without esophagitis; K59.9 Functional intestinal disorder, unspecified
CPT/HCPCS: 99213

== ENCOUNTER → 2023-02-04 11:54 | Outpatient (BNVA) | payer OTHER, SELFPAY | PROVIDERS: PCP Family Medicine; Visit Provider Nurse Practitioner | DX: K59.04 Chronic idiopathic constipation (principal); K21.9 Gastro-esophageal reflux disease without esophagitis; K59.9 Functional intestinal disorder, unspecified | CPT/HCPCS: 99212 ==

== ENCOUNTER 2023-03-01 08:30 | Outpatient (AMB) | payer OTHER, SELFPAY ==
--- NOTE | 2023-03-01 08:33 | A.OFFVIS_ITS ---
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 Scribed for MICHAEL Santacruz by Violeta Elizabeth medical library assistant, on 03/01/2023 at 8:47 am EST. Score Caller Required: Yes Score Caller Language: Catalog Librarian Name: Peggy COOK Information Interpreted: non-clinical & clinical Behavioral Services Tech: Behavioral Services Tech Present (Peggy) Accompanied by: Self / Same As Patient Allergies vancomycin [VANCOMYCIN] Allergy (Severe, Verified 03/01/23 08:38) REDNESS,RASH,SWELLING Tetanus & Diphtheria Tox,Adult Allergy (Severe, Uncoded 03/01/23 08:38) FEVER,DIFF.BREATHING HPI HPI Comments History of Present Illness Details She is here for irritation on her labia via PCP referral. Complains of itching to the left labial for a very long time. She has tried Rx cream in the past. Denies vaginal itching today or wearing menstrual pads. Reports area is occasionally irritated when she is sleeping. [facility] Medical History Allergic rhinitis (~12/11/20) Anxiety Bronchitis COPD (chronic obstructive pulmonary disease) COPD (chronic obstructive pulmonary disease) COPD exacerbation Leukocytosis Small bowel motility disorder Vaginal irritation Vaginal itching Surgical History History of ear surgery History of esophagogastroduodenoscopy (EGD) History of right knee joint replacement Hx of colonoscopy Family History Father Diabetes Mother Diabetes Osteoporosis HTN (hypertension) Sister Pancreas cancer Social History Household Members: None Housing: Apartment Do you presently have visiting nurse or other home services: Yes Alcohol intake: never Patient Tobacco Use Status: Former Tobacco user Tobacco use type: Cigarette Advance Directives Date on File: 11/28/20 service: No Current occupational status: unemployed and disabled 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 Rx sent to pharmacy with instructions. Advised to use Aquaphor during RX if irritated. If area is irritated in between using RX, suggest using a cool cloth or compress to area. If area is healing when she RTO, then can isaura down RX. If area is still itching or irritated, consider a skin biopsy in the area. All of her questions and concerns were addressed to the best of my ability and shared decision making. She is agreeable to plan of care. RTO in 2 months or PRN. (2) Vaginal itching: Code(s): N89.8 - Other specified noninflammatory disorders of vagina Medications: New betamethasone, augmented 0.05 % apply a thin coat to area BID x 1 week, then use nightly x 1 week, then every other night for one week, then D/c 1 appl topical BID 7 days 45 grams 1RF allergic reaction Coding Level of Care Code New Pt Level 3 (77471) Diagnoses Vaginal irritation N89.8 Vaginal itching N89.8
[2023-03-01 08:35] VITALS: BP 120/82; BMI 21.0
== END 2023-03-01 09:07 | disposition home or self-care (01) ==
LOC: HO.HWS 08:30
PROVIDERS: PCP Family Medicine; Visit Provider Advanced Practice Midwife
DX: N89.8 Other specified noninflammatory disorders of vagina (principal)
CPT/HCPCS: 99203

== ENCOUNTER → 2023-03-01 08:30 | Outpatient (BNVA) | payer OTHER, SELFPAY | PROVIDERS: PCP Family Medicine; Visit Provider Advanced Practice Midwife | DX: N89.8 Other specified noninflammatory disorders of vagina (principal) | CPT/HCPCS: 99202 ==

== ENCOUNTER 2023-03-07 11:10 | Outpatient (AMB) | payer OTHER, SELFPAY ==
--- NOTE | 2023-03-07 11:12 | MHC.OFFVIS ---
Intake Intake Visit Reasons: new prob- left knee pain Intake Note: Maida is a 67 year old female who presents today for a follow up of left knee pain. Last injection was done on 12/03/22. This injection was not helpful and she complains of continued left knee pain and locking. Allergies vancomycin [VANCOMYCIN] Allergy (Severe, Verified 03/07/23 11:16) REDNESS,RASH,SWELLING Tetanus & Diphtheria Tox,Adult Allergy (Severe, Uncoded 03/07/23 11:16) FEVER,DIFF.BREATHING HPI new prob- left knee pain HPI Details Maida is a 67 year old woman who returns with complaints of left knee OA pain. At her last appointment she was again referred to pain management due to symptoms of left-sided lumbar radiculopathy and generalized body pain, but she did not attend this appointment. She continues to complain of pain and locking of her left knee, along with intermittent effusion. She received a left knee injection on 12/03/22, which she says was only briefly helpful [facility] Medical History Allergic rhinitis (~12/11/20) Anxiety Bronchitis COPD (chronic obstructive pulmonary disease) COPD (chronic obstructive pulmonary disease) COPD exacerbation Leukocytosis Small bowel motility disorder Vaginal irritation Vaginal itching Surgical History History of ear surgery History of esophagogastroduodenoscopy (EGD) History of right knee joint replacement Hx of colonoscopy Family History Father Diabetes Mother Diabetes Osteoporosis HTN (hypertension) Sister Pancreas cancer Social History Household Members: None Housing: Apartment Do you presently have visiting nurse or other home services: Yes Alcohol intake: never Patient Tobacco Use Status: Former Tobacco user Tobacco use type: Cigarette Advance Directives Date on File: 11/28/20 service: No Current occupational status: unemployed and disabled 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 Moderate effusion Psych Appearance: grossly normal Affect: normal affect Attitude: cooperative Results Reviewed Results Reviewed: I personally reviewed relevant radiographs. Mild left knee OA? Right total knee arthroplasty in expected position with no hardware complications. DEXA scan showed symmetric uptake most consistent with inflammation rather than loosening Assessment & Plan Assessment & Plan (1) Effusion, left knee: Code(s): M25.462 - Effusion, left knee Plan: This is a 67 year old woman with left knee intermittent effusion & pain She has pain with daily activity. She was referred to Pain management at her last appointment but she did not attend. She found very brief and limited relief from her previous injection on 12/03/22, and denies any other treatment. I discussed her diagnosis and treatment options. I ordered an MRI to assess her left knee. She will follow up when completed for review. (2) Osteoarthritis of left knee: Code(s): M17.12 - Unilateral primary osteoarthritis, left knee (3) Complaints of total body pain: Code(s): R52 - Pain, unspecified (4) Lumbar radiculopathy: Code(s): M54.16 - Radiculopathy, lumbar region (5) History of total right knee replacement: Comment: 2011 Code(s): Z96.651 - Presence of right artificial knee joint Plan Scribed for Moustapha Frost MD by Donaldo Garrett, medical accounts receivable specialist, on 03/07/23 at 11:25 AM, EST. Orders: Orders MR knee LT wo con Today M25.462 - Effusion, left knee Coding Level of Care Code Est Pt Level 4 (39511) Diagnoses Effusion, left knee M25.462 Osteoarthritis of left knee M17.12 Complaints of total body pain R52 Lumbar radiculopathy M54.16 History of total right knee replacement Z96.651
== END 2023-03-07 11:25 | disposition home or self-care (01) ==
PROVIDERS: PCP Family Medicine; Visit Provider Orthopaedic Surgery
DX: M25.462 Effusion, left knee (principal); M17.12 Unilateral primary osteoarthritis, left knee; M54.16 Radiculopathy, lumbar region; Z96.651 Presence of right artificial knee joint
CPT/HCPCS: 99214

== ENCOUNTER → 2023-03-07 11:10 | Outpatient (BNVA) | payer OTHER, SELFPAY | PROVIDERS: PCP Family Medicine; Visit Provider Orthopaedic Surgery | DX: M17.12 Unilateral primary osteoarthritis, left knee (principal); M25.462 Effusion, left knee; M54.16 Radiculopathy, lumbar region; R52 Pain, unspecified; Z96.651 Presence of right artificial knee joint | CPT/HCPCS: 99212 ==

== ENCOUNTER 2023-03-28 11:00 | Outpatient (RCR) | payer OTHER, SELFPAY ==
--- NOTE | 2023-02-10 12:36 | MHC.PT.EP ---
[facility] [place] Office [place] [facility] [place] [facility] [address] [place] [address] [phone] F: [phone] F: [phone] F: [phone] F: [phone] Physical Therapy Plan of Care Date of Evaluation: Date of Surgery: N/A Diagnosis: Radiculopathy, lumbar region Assessment: Pt is a pleasant 67yo F who is referred to PT with lumbar radiculopathy. She presents to PT with current impairments in pain, decreased lumbar ROM, decreased core stabilization, decreased hip/glute strength, decreased quad strength, decreased balance and impaired gait. She is limited functionally by walking, prolonged standing, prolonged sitting, and bending. She is a good candidate for skilled PT in order to address current impairments to facilitate return to PLOF. She is recommended to be seen 2x/week for 4 weeks and will be reassessed at that time. Frequency and Duration: The patient will be seen 2x/week for 4 weeks Short Term Goals: Pt will be I with HEP to promote self management of symptoms Pt will improve B quad strength to at least 4/5 Fci Goals: Pt will achieve full ROM and strength throughout B knees to assist with standing and walking Pt will ambulate >20 min with minimal to no discomfort in her low back Pt will demonstrate ability to squat and picket labor union object from the floor with good mechanics Treatment Plan: Modalities to reduce pain, spasms and effusion. Manual therapy to restore motion and function. Therapeutic exercise to improve strength and flexibility. Neuromuscular re-education for posture and balance. Therapeutic activities to return to functional activities of daily living. Electronically signed by: Cha Garcia, PT, DPT Please sign and return to therapist. Thank you for your referral.
--- NOTE | 2023-03-28 12:40 | MHC.PT.DC ---
[facility] [place] Office [place] [facility] [place] Office [address] [place] [address] [phone] F: [phone] F: [phone] F: [phone] F: [phone] Physical Therapy Discharge Report Diagnosis: Radiculopathy, lumbar region Date of Surgery: N/A Date of Evaluation: 02/10/23 Date of Discharge: 03/28/23 Treatments to Date: 8 Cancellations to Date: No Shows to Date: Discharge Status: Independent with HEP Recommend MD Follow-up Discharge Summary: Pt was seen for PT from 02/10/23-03/28/23. She overall has made fair progress with skilled PT. She has improved her activity tolerance noted throughout PT however she continues to have pain in her low back and her knee. She is being D/C from skilled PT as she has reached a functional plateau. I provided pt with printed, updated copy of HEP. I encouraged pt to follow up with doctor due to persisting pain. Pt reports no further questions or concerns for PT with nitrocellulose maker present. Pt is being D/C from skilled PT. Electronically signed by: Cha Garcia, PT, DPT Please sign and return to therapist. Thank you for your referral.
== END 2023-03-28 12:39 | disposition home or self-care (01) ==
LOC: HO.PT 11:00
PROVIDERS: PCP Family Medicine; Visit Provider Orthopaedic Surgery
DX: M54.16 Radiculopathy, lumbar region (principal)
CPT/HCPCS: 97110; 97140; 97162

== ENCOUNTER 2023-03-31 11:34 | Outpatient (AMB) | payer OTHER, SELFPAY ==
--- NOTE | 2023-03-31 11:38 | A.OFFVIS_ITS ---
Intake Vital Signs 03/31/23 11:40 Height 5 ft 8 in Weight 158 lb 11.725 oz BMI 24.1 BP 117/58 L Blood Pressure Location Lt brachial Pulse 76 Intake Visit Reasons: 8 week follow up Intake Note: Maida presents in the office as a 8 week follow up. CC: Shellfish Sorter Required: Yes Shellfish Sorter Name: Le [facility] interpeter. Accompanied by: Self / Same As Patient Allergies vancomycin [VANCOMYCIN] Allergy (Severe, Verified 03/31/23 11:40) REDNESS,RASH,SWELLING Tetanus & Diphtheria Tox,Adult Allergy (Severe, Uncoded 03/31/23 11:40) FEVER,DIFF.BREATHING HPI 8 week follow up HPI Details Assessment & Plan (1) Chronic idiopathic constipation: Code(s): K59.04 - Chronic idiopathic constipation Plan: AUSTRALIAN. #Izzy, Live She still has the same problems despite receiving the higher dose of reglan 10mg BUT with medication review she is not consistently taking the bisacodyl I forget and this may be why we are not getting consistent results as she says some days are good but some are bad. Her stooling tends to be very hard and she has to strain on the bad days. I have ordered all meds scheduled and in a med box format to [facility]. The medication she is supposed to be on the are Reglan 10 mg 4 times a day, bisacodyl 2 tabs at bedtime, Colace, famotidine, pantoprazole twice a day, Linzess 290 micro g . ROV 8 weeks. (2) GERD (gastroesophageal reflux diseas e): Code(s): K21.9 - Gastro-esophageal reflux disease without esophagitis (3) Small bowel motility disorder: Code(s): K59.9 - Functional intestinal disorder, unspecified Medications: Changed From bisacodyl 10 mg (2 x 5 mg) P O BEDTIME 60 ea 6R F K59.04 - Chronic i diopathic constipa tion To bisacodyl PLEAS E PUT 2 EACH IN HE R PILL BOX FOR BED TIME TO PROMOTE CO MPLIANCE 10 mg (2 x 5 mg) P O BEDTIME 60 ea 6R F K59.04 - Chronic i diopathic constipa tion From metoclopramide HCl 10 mg PO QIDACHS 120 tabs 6RF K59.9 - Functional intestinal disord er, unspecified To metoclopramide HCl (Reglan) NARCISO Bliss PUT THIS IS A PI LL BOX FORMAT S CHEDULED QID 10 mg PO QID 120 t abs 6RF K59.9 - Functional intestinal disord er, unspecified From linaclotide 290 mcg PO QAM 30 days 30 caps 6RF K59.04 - Chronic i diopathic constipa tion To linaclotide (Linze ss) PLEASE PUT IN MED BOX FORMAT 290 mcg PO QAM 30 caps 6RF 30 days K59.04 - Chronic i diopathic constipa tion From pantoprazole 40 mg PO BID 30 d ays 60 tabs 6RF K21.9 - Gastro-eso phageal reflux dis ease without esoph agitis To pantoprazole PL EASE PUT IN MED MAILE X FORMAT 40 mg PO BID 60 ta bs 6RF 30 days K21.9 - Gastro-eso phageal reflux dis ease without esoph agitis From docusate sodium 100 mg PO BID 60 caps 6RF To docusate sodium PLEASE PUT IN MED BOX FORMAT 100 mg PO BID 60 c aps 6RF TODAY'S VISIT AUSTRALIAN. #Le Live She is now receiving all of meds in a med box and this has resolved her complaints via ensuring compliance. Her only problem now is knee pain and swelling. She does have occasional diarrhea, so I will get her back in 6 weeks to see if we need to make any changes. After she empties out she may not have a BM for a couple of days, as well. She also has some vaguely described upper abd pain after taking the medications. In summary she is now taking bisacodyl, Linzess 290, metoclopramide 10 mg 4 times a day, pantoprazole 40 mg twice a day and Colace 100 mg twice a day. She is no longer straining at her stooling. She asks when her colonoscopy is due again, and her last was in 2019 and was neg, and she has no hx of CRC so likely 10 years. ROV 6 weeks. [facility] Medical History Vaginal itching Vaginal irritation Small bowel motility disorder Bronchitis COPD (chronic obstructive pulmonary disease) Leukocytosis COPD exacerbation Anxiety COPD (chronic obstructive pulmonary disease) Allergic rhinitis (~12/11/20) Surgical History History of ear surgery Hx of colonoscopy History of right knee joint replacement History of esophagogastroduodenoscopy (EGD) Family History Father Diabetes Mother Diabetes Osteoporosis HTN (hypertension) Sister Pancreas cancer Social History Household Members: None Housing: Apartment Do you presently have visiting nurse or other home services: Yes Alcohol intake: never Patient Tobacco Use Status: Former Tobacco user Tobacco use type: Cigarette Advance Directives Date on File: 11/28/20 service: No Current occupational status: unemployed and disabled 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 Review of Systems Const Denies fatigue, Denies fever(s), Denies night sweats, Denies poor appetite and Denies weight loss Eyes Details: glasses Reports requires corrective lenses ENT Reports Normal hearing present, Denies dental pain, Denies dysphagia, Denies hearing loss, Denies mouth pain, Denies odynophagia, Denies throat swelling, Denies tongue swelling and Reports other (Dentition adequate) Card Reports no additional complaints Resp Reports no additional complaints GI Reports abdominal pain, Denies melena, Reports bloating, Denies hematochezia, Reports constipation, Denies GI cramping, Denies dysphagia, Denies excessive flatus, Reports early satiety, Reports heartburn, Denies diarrhea, Reports nausea, Denies odynophagia, Denies vomiting and Denies hematemesis Skin/Breast Denies pruritus, Denies lesions, Denies rash and Denies jaundice Neuro Reports Normal hearing present and Denies Abnormal speech present Endo Denies fatigue Aller/Immun Denies throat swelling and Denies tongue swelling Physical Exam Vital Signs: Last Vital Signs Pulse 76 03/31/23 11:40 BP 117/58 L 03/31/23 11:40 BMI result Body Mass Index 24.1 Const General: cooperative, no acute distress, well developed and well groomed Nutritional Appearance: average body habitus and well nourished Orientation/consciousness: oriented to person, oriented to place and oriented to time Limitations: language barrier HEENT Head: Yes normocephalic and Yes atraumatic Eyes General: appearance normal, both eyes and all related structures Pupils: Equal, round and reactive pupils present Neck Neck: Yes normal visual inspection and Yes no lymphadenopathy Thyroid: Thyroid normal Resp Effort & Inspection: normal respiratory effort and able to speak in complete sentences Auscultation: clear to auscultation bilaterally Cardio Rate: regular rate Rhythm: regular rhythm Heart sounds: Normal, physiologic split S2 sound present Peripheral pulses: radial pulses present and posterior tibial pulses present GI Inspection: No distended and No Abdominal panniculus present Palpation (GI): Soft to palpation, nontender, no guarding, not rigid and No hepatosplenomegaly present Percussion: Yes normal to percussion Auscultation: normal bowel sounds Rectal Exam - Female: deferred Skin General skin exam: no rashes or lesions noted, turgor normal, skin not dry, no jaundice, No spider nevi and no striae Rashes: no rashes Nails: normal Neuro General: oriented to person, oriented to place and oriented to time Cranial nerves: Yes Equal, round and reactive pupils present and Yes Normal hearing present Speech: No Abnormal speech present Extrem General: Yes normal to inspection, No clubbing, No cyanosis and No edema Psych Appearance: grossly normal and well kempt Mental Status: mental status grossly normal Speech and movement: Normal speech and movement present Affect: normal affect Attitude: cooperative Thought process: Normal thought process present and not confabulating Thought content: Normal thought content present Insight: Limited insight present (Psych) Judgement: Limited judgement present (Psych) Assessment & Plan Assessment & Plan (1) GERD (gastroesophageal reflux disease): Code(s): K21.9 - Gastro-esophageal reflux disease without esophagitis Plan: AUSTRALIAN. #Le Live She is now receiving all of meds in a med box and this has resolved her complaints via ensuring compliance. Her only problem now is knee pain and swelling. She does have occasional diarrhea, so I will get her back in 6 weeks to see if we need to make any changes. After she empties out she may not have a BM for a couple of days, as well. She also has some vaguely described upper abd pain after taking the medications. In summary she is now taking bisacodyl, Linzess 290, metoclopramide 10 mg 4 times a day, pantoprazole 40 mg twice a day and Colace 100 mg twice a day. She is no longer straining at her stooling. She asks when her colonoscopy is due again, and her last was in 2019 and was neg, and she has no hx of CRC so likely 10 years. ROV 6 weeks. (2) Chronic idiopathic constipation: Code(s): K59.04 - Chronic idiopathic constipation Coding Level of Care Code Est Pt Level 3 (75431) Diagnoses GERD (gastroesophageal reflux disease) K21.9 Chronic idiopathic constipation K59.04
[2023-03-31 11:40] VITALS: BP 117/58; PULSE 76; BMI 24.1
== END 2023-03-31 12:14 | disposition home or self-care (01) ==
PROVIDERS: PCP Family Medicine; Visit Provider Nurse Practitioner
DX: K21.9 Gastro-esophageal reflux disease without esophagitis (principal); K59.04 Chronic idiopathic constipation
CPT/HCPCS: 99213

== ENCOUNTER → 2023-03-31 11:34 | Outpatient (BNVA) | payer OTHER, SELFPAY | PROVIDERS: PCP Family Medicine; Visit Provider Nurse Practitioner | DX: K59.04 Chronic idiopathic constipation (principal); K21.9 Gastro-esophageal reflux disease without esophagitis; Z79.899 Other long term (current) drug therapy | CPT/HCPCS: 99212 ==

== ENCOUNTER 2023-04-07 | Outpatient (REF) | payer OTHER, SELFPAY ==
[2023-04-08 12:34] LABS: Influenza A PCR NEGATIVE (Negative); Influenza B PCR NEGATIVE (Negative); Resp Syncy Virus RNA Qual PCR NEGATIVE (Negative); SARS COV2 PCR INHOUSE NEGATIVE (Negative)
== END 2023-04-07 00:01 | disposition home or self-care (01) ==
LOC: HO.HHCLNP
PROVIDERS: Visit Provider Emergency Medicine
DX: J06.9 Acute upper respiratory infection, unspecified (principal); Z20.822 Contact with and (suspected) exposure to COVID-19
CPT/HCPCS: 0241U; 87070

== ENCOUNTER 2023-04-11 11:16 | Outpatient (AMB) | payer OTHER, SELFPAY ==
[2023-04-11 11:20] VITALS: BMI 24.0
--- NOTE | 2023-04-11 11:20 | A.OFFVIS_ITS ---
Intake Vital Signs 04/11/23 11:20 Height 5 ft 8 in Weight 158 lb BMI 24.0 Intake Visit Reasons: ov- left knee pain Intake Note: Maida is a 67 year old female who presents today for a follow up of her left knee pain,last injection 12/03/22. She would like to repeat injection today. Allergies vancomycin [VANCOMYCIN] Allergy (Severe, Verified 03/31/23 11:40) REDNESS,RASH,SWELLING Tetanus & Diphtheria Tox,Adult Allergy (Severe, Uncoded 03/31/23 11:40) FEVER,DIFF.BREATHING HPI ov- left knee pain HPI Details Maida is a 67 year old woman who returns with complaints of left knee OA pain. She has not attended any appointment with Pain Management following her referral, and she has not completed an MRI of her knee. She continues to complain of pain and locking of her left knee, along with intermittent effusion. She received a left knee injection on 12/03/22, which she says was only briefly helpful. She would like a repeat injection today. [facility] Medical History Vaginal itching Vaginal irritation Small bowel motility disorder Bronchitis COPD (chronic obstructive pulmonary disease) Leukocytosis COPD exacerbation Anxiety COPD (chronic obstructive pulmonary disease) Allergic rhinitis (~12/11/20) Surgical History History of ear surgery Hx of colonoscopy History of right knee joint replacement History of esophagogastroduodenoscopy (EGD) Family History Father Diabetes Mother Diabetes Osteoporosis HTN (hypertension) Sister Pancreas cancer Social History Household Members: None Housing: Apartment Do you presently have visiting nurse or other home services: Yes Alcohol intake: never Patient Tobacco Use Status: Former Tobacco user Tobacco use type: Cigarette Advance Directives Date on File: 11/28/20 service: No Current occupational status: unemployed and disabled 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 Review of Systems Const All systems reviewed & are unremarkable except as noted in HPI and below Physical Exam Vital Signs: BMI result Body Mass Index 24.0 Const General: no acute distress, alert and awake Orientation/consciousness: patient oriented x3 HEENT Head: Yes normocephalic and Yes atraumatic Eyes EOM: EOMs intact bilaterally Resp Effort & Inspection: normal respiratory effort and able to speak in complete sentences Cardio Jugular venous distension: no JVD Skin General skin exam: turgor normal Rashes: no rashes Neuro General: patient oriented x3 Extrem Other: Left Knee: TTP medial & lateral Moderate effusion Psych Appearance: grossly normal Affect: normal affect Attitude: cooperative Office Procedures Joint Injection/Drain Joint Injection/Drain Details: Injected 1 mL of Decadron and 3 mL 1% lidocaine and 3 mL of 0.25% Marcaine. Site was prepped using aseptic technique. Patient tolerated the procedure well. Primary Site: left knee Approach Used: anterolateral Coding 50895 - Large joint Procedure code (CPT) selection complete Results Reviewed Results Reviewed: 04/11/23 11:14 BUPivacaine MPF 0.25 % [Sensorcaine-MPF 0.25% 10 ML] 10 ml .ROUTE .STK-MED ONE Lidocaine HCl 2 % MPF [Xylocaine 2 % MPF] 5 ml .ROUTE .STK-MED ONE dexAMETHasone sod phosphate [Decadron] 4 mg .ROUTE .STK-MED ONE I personally reviewed relevant radiographs. Mild left knee OA? Right total knee arthroplasty in expected position with no hardware complications. DEXA scan showed symmetric uptake most consistent with inflammation rather than loosening Assessment & Plan Assessment & Plan (1) Osteoarthritis of left knee: Code(s): M17.12 - Unilateral primary osteoarthritis, left knee Plan: This is a 67 year old woman with left knee OA, intermittent effusion & pain. She has pain with daily activity. She found very brief and limited relief from her previous injection on 12/03/22, and denies any other treatment. I discussed her diagnosis and treatment options. She has not been seen by Pain Management or completed the MRI of her knee. I injected her left knee today, which she tolerated well. She can follow up prn. (2) Effusion, left knee: Code(s): M25.462 - Effusion, left knee (3) Complaints of total body pain: Code(s): R52 - Pain, unspecified (4) Lumbar radiculopathy: Code(s): M54.16 - Radiculopathy, lumbar region (5) History of total right knee replacement: Comment: 2011 Code(s): Z96.651 - Presence of right artificial knee joint Plan Scribed for Moustapha Frost MD by Donaldo Garrett, medical office secretary, on 04/11/23 at 11:25 AM, EST. Coding Level of Care Code Est Pt Level 3 (35940) Diagnoses Osteoarthritis of left knee M17.12 Effusion, left knee M25.462 Complaints of total body pain R52 Lumbar radiculopathy M54.16 History of total right knee replacement Z96.651 CPT Codes Coding - 16433 Large joint: 18112 - Large joint ([id number])
== END 2023-04-11 12:35 | disposition home or self-care (01) ==
PROVIDERS: PCP Family Medicine; Visit Provider Orthopaedic Surgery
DX: M17.12 Unilateral primary osteoarthritis, left knee (principal); M25.462 Effusion, left knee; M54.16 Radiculopathy, lumbar region; Z96.651 Presence of right artificial knee joint
CPT/HCPCS: 20610; 99213

== ENCOUNTER → 2023-04-11 11:16 | Outpatient (BNVA) | payer OTHER, SELFPAY | PROVIDERS: PCP Family Medicine; Visit Provider Orthopaedic Surgery | DX: M25.462 Effusion, left knee (principal); M54.16 Radiculopathy, lumbar region; Z96.651 Presence of right artificial knee joint | CPT/HCPCS: 20610; 99212; J1100 ==

== ENCOUNTER 2023-04-29 13:45 | Outpatient (REF) | payer OTHER, SELFPAY ==
--- NOTE | ~2023-04-29 | MR_ITS ---
EXAMINATION: MR KNEE WITHOUT CONTRAST, LEFT CLINICAL INFORMATION: Left knee pain and swelling. Effusion. COMPARISON: Multiple priors, most recent left knee radiographs dated 12/03/2022. TECHNIQUE: MRI of the knee without contrast was performed using routine sequences on a high-field scanner. FINDINGS: MENISCI: Medial Meniscus: Mild inner margin fraying of the posterior root. Lateral Meniscus: Complex tearing of the anterior horn and root as well as the posterior root. Oblique inner margin tearing involving the meniscal body. LIGAMENTS: Cruciate: Increased T2 signal throughout the anterior and posterior cruciate ligaments consistent mild degeneration. Collateral: Minimal edema adjacent to the medial collateral ligament which could represent a grade 1 sprain or be related to a joint effusion. Intact fibular collateral ligament. EXTENSOR MECHANISM: Intact ARTICULAR CARTILAGE/BONE: Patellofemoral Compartment: Lateral patellar facet full-thickness fissuring and minimal subchondral cystic change. Central and medial trochlear articular cartilage thinning with areas of full thickness loss. Small marginal osteophytes. Medial Compartment: Mild articular cartilage signal heterogeneity with small marginal osteophytes. Lateral Compartment: Articular cartilage signal heterogeneity with broad areas of full-thickness loss at the posterior weightbearing lateral femoral condyle and lateral tibial plateau. Minimal subchondral cystic change. Marginal osteophytes. JOINT FLUID AND BURSAE: Moderate joint effusion with synovitis. MUSCLES/TENDONS: Increased T2 signal within the popliteus muscle, consistent with a mild strain. MR/MR knee LT wo con IMPRESSION: 1. Complex tearing of the lateral meniscus anterior horn and root as well as the posterior root. Oblique inner margin tearing of the meniscal body. 2. Mild inner margin fraying of the medial meniscus posterior root. 3. Mild degeneration of the anterior and posterior cruciate ligaments. 4. Minimal edema adjacent to the medial collateral ligament which could represent a grade 1 sprain or be related to a joint effusion. 5. Moderate lateral as well as mild patellofemoral and medial compartment osteoarthritis. Moderate joint effusion with synovitis. 6. Mild popliteus muscle strain.
== END 2023-04-29 13:46 | disposition home or self-care (01) ==
LOC: HO.MRI 13:45
PROVIDERS: PCP Family Medicine; Visit Provider Orthopaedic Surgery
DX: M25.462 Effusion, left knee (principal)
CPT/HCPCS: 73721

== ENCOUNTER 2023-05-10 13:12 | Outpatient (REF) | payer OTHER, SELFPAY | END 2023-05-10 13:13 | disposition home or self-care (01) | LOC: HO.LNP 13:12 | PROVIDERS: Visit Provider Emergency Medicine | DX: R10.13 Epigastric pain (principal) | CPT/HCPCS: 87338 ==

== ENCOUNTER 2023-05-12 10:28 | Outpatient (AMB) | payer OTHER, SELFPAY ==
--- NOTE | 2023-05-12 10:46 | MHC.OFFVIS ---
Intake Vital Signs 05/12/23 10:47 Height 5 ft 8 in Weight 162 lb 11.218 oz BMI 24.7 Intake Visit Reasons: 6 week follow up Intake Note: Maida presents in the office as a 6 week follow up. CC: She c/o nausea, upset stomach for about a month, constipation, and heartburn. She states she forgets to take the famotidine at bedtime but when she does it helps with heartburn. She states she is not eating well do to upset stomach and she has noticed that when she has a BM the upset stomach gets worst. Per patient she went to [facility] about 2 days ago and her provider ordered an H pylori stool test but she does not have results yet. Technician [employer] Required: Yes Accompanied by: Self / Same As Patient Allergies vancomycin [VANCOMYCIN] Allergy (Severe, Verified 05/18/23 15:11) REDNESS,RASH,SWELLING Tetanus & Diphtheria Tox,Adult Allergy (Severe, Uncoded 03/31/23 11:40) FEVER,DIFF.BREATHING HPI 6 week follow up HPI Details Assessment & Plan (1) GERD (gastroesophageal reflux disease): Code(s): K21.9 - Gastro-esophageal reflux disease without esophagitis Plan: GABONESE. #[place] Live She is now receiving all of meds in a med box and this has resolved her complaints via ensuring compliance. Her only problem now is knee pain and swelling. She does have occasional diarrhea, so I will get her back in 6 weeks to see if we need to make any changes. After she empties out she may not have a BM for a couple of days, as well. She also has some vaguely described upper abd pain after taking the medications. In summary she is now taking bisacodyl, Linzess 290, metoclopramide 10 mg 4 times a day, pantoprazole 40 mg twice a day and Colace 100 mg twice a day. She is no longer straining at her stooling. She asks when her colonoscopy is due again, and her last was in 2019 and was neg, and she has no hx of CRC so likely 10 years. ROV 6 weeks. (2) Chronic idiopathic constipation: Code(s): K59.04 - Chronic idiopathic constipation TODAYS VISIT Moz[place] #[id number] She says that over the past month she has had an upset stomach. She says that one of her psych meds was in creased, but she also admits that she is not consistently taking the reglan, because I have so many medications. As she also c/o nausea with the dyspepsia, I educate her ON WHY SHE IS BEING PRESCRIBED THE REGLAN and the necessity of taking it all the time because of her suspected functional dyspepsia and to keep things moving.. I do not intend for her to use it as a p.r.n. as it is not going to be very effective in the situation. With this note I would like to be put her pill boxes as a scheduled medication and I have sent a note to the pharmacy asking this happen.r Return office visit in 4 weeks to evaluate her response to having the med scheduled. Were also ordering an EGD to be thorough. The her COPD is controlled and she denies any cardiac problems. She has no prior problems with anesthesia or sedation. There are no infectious disease problems. [facility] Medical History Vaginal itching Vaginal irritation Small bowel motility disorder Bronchitis COPD (chronic obstructive pulmonary disease) Leukocytosis COPD exacerbation Anxiety COPD (chronic obstructive pulmonary disease) Allergic rhinitis (~12/11/20) Surgical History History of ear surgery Hx of colonoscopy History of right knee joint replacement History of esophagogastroduodenoscopy (EGD) Family History Father Diabetes Mother Diabetes Osteoporosis HTN (hypertension) Sister Pancreas cancer Social History Household Members: None Housing: Apartment Do you presently have visiting nurse or other home services: Yes Alcohol intake: never Patient Tobacco Use Status: Former Tobacco user Tobacco use type: Cigarette Advance Directives: Yes Advance Directives on File: Yes Advance Directives Date on File: 11/28/20 service: No Current occupational status: unemployed and disabled 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 Review of Systems Const Denies fatigue, Denies fever(s), Denies night sweats, Reports poor appetite and Denies weight loss Eyes Details: glasses Reports requires corrective lenses ENT Reports Normal hearing present, Denies dental pain, Denies dysphagia, Denies hearing loss, Denies mouth pain, Denies odynophagia, Denies throat swelling, Denies tongue swelling and Reports other (Dentition adequate) Card Reports no additional complaints and Reports dyspnea on exertion Resp Reports dyspnea on exertion GI Reports abdominal pain, Denies melena, Denies bloating, Denies hematochezia, Reports constipation, Denies GI cramping, Denies dysphagia, Denies excessive flatus, Reports early satiety, Reports heartburn, Denies diarrhea, Denies nausea, Denies odynophagia, Denies vomiting and Denies hematemesis Skin/Breast Denies pruritus, Denies lesions, Denies rash and Denies jaundice Neuro Reports Normal hearing present and Denies Abnormal speech present Endo Denies fatigue Aller/Immun Denies throat swelling and Denies tongue swelling Physical Exam Vital Signs: BMI result Body Mass Index 24.7 Const General: cooperative, no acute distress, well developed and well groomed Nutritional Appearance: average body habitus and well nourished Orientation/consciousness: oriented to person, oriented to place and oriented to time Limitations: language barrier HEENT Head: Yes normocephalic and Yes atraumatic Eyes General: appearance normal, both eyes and all related structures Pupils: Equal, round and reactive pupils present Neck Neck: Yes normal visual inspection and Yes no lymphadenopathy Thyroid: Thyroid normal Resp Effort & Inspection: normal respiratory effort and able to speak in complete sentences Auscultation: clear to auscultation bilaterally Cardio Rate: regular rate Rhythm: regular rhythm Heart sounds: Normal, physiologic split S2 sound present Peripheral pulses: radial pulses present and posterior tibial pulses present GI Inspection: No distended and No Abdominal panniculus present Palpation (GI): Soft to palpation, Tenderness to palpation present (GI) in the epigastrum, no guarding, not rigid and No hepatosplenomegaly present Percussion: Yes normal to percussion Auscultation: normal bowel sounds Rectal Exam - Female: deferred Skin General skin exam: no rashes or lesions noted, turgor normal, skin not dry, no jaundice, No spider nevi and no striae Rashes: no rashes Nails: normal Neuro General: oriented to person, oriented to place and oriented to time Cranial nerves: Yes Equal, round and reactive pupils present and Yes Normal hearing present Speech: No Abnormal speech present Extrem General: Yes normal to inspection, No clubbing, No cyanosis and No edema Psych Appearance: grossly normal and well kempt Mental Status: mental status grossly normal Speech and movement: Normal speech and movement present Affect: normal affect Attitude: cooperative Thought process: Normal thought process present and not confabulating Thought content: Normal thought content present Insight: Limited insight present (Psych) Judgement: Limited judgement present (Psych) Assessment & Plan Assessment & Plan (1) Gastric pain: Code(s): R10.9 - Unspecified abdominal pain Plan: [place] #[id number] She says that over the past month she has had an upset stomach. She says that one of her psych meds was in creased, but she also admits that she is not consistently taking the reglan, because I have so many medications. As she also c/o nausea with the dyspepsia, I educate her ON WHY SHE IS BEING PRESCRIBED THE REGLAN and the necessity of taking it all the time because of her suspected functional dyspepsia and to keep things moving.. I do not intend for her to use it as a p.r.n. as it is not going to be very effective in the situation. With this note I would like to be put her pill boxes as a scheduled medication and I have sent a note to the pharmacy asking this happen. She continues on her Linzess 290 micro g and a fiber pill along with doctor sit sodium, she also takes pantoprazole in the morning and famotidine in the evening. I try to increase the pantoprazole twice a day but appears that her insurance may not be covering this. Return office visit in 4 weeks to evaluate her response to having the med scheduled. Were also ordering an EGD to be thorough. The her COPD is controlled and she denies any cardiac problems. She has no prior problems with anesthesia or sedation. There are no infectious disease problems. (2) GERD (gastroesophageal reflux disease): Code(s): K21.9 - Gastro-esophageal reflux disease without esophagitis (3) Chronic idiopathic constipation: Code(s): K59.04 - Chronic idiopathic constipation (4) Small bowel motility disorder: Code(s): K59.9 - Functional intestinal disorder, unspecified (5) COPD (chronic obstructive pulmonary disease): Comment: Patient has very mild Asthma/Chronic obstructive pulmonary disease, which seems to be well controlled and stable at this time. [place] Advair 250-50 1 inhalation b.i.d.. Ventolin HFA 2 puffs Q 4-6 hours only p.r.n.. Patient also has nebulizer at home , may use albuterol 0.63 mg, Q 4-6 hours only p.r.n.. Patient is reassured and explained that her cough is mild and secondary to chronic allergic rhinitis with postnasal discharge . Continue treatment of allergic rhinitis. Does not need Antitussive meds. Code(s): J44.9 - Chronic obstructive pulmonary disease, unspecified Plan [place] #[id number] She says that over the past month she has had an upset stomach. She says that one of her psych meds was in creased, but she also admits that she is not consistently taking the reglan, because I have so many medications. As she also c/o nausea with the dyspepsia, I educate her ON WHY SHE IS BEING PRESCRIBED THE REGLAN and the necessity of taking it all the time because of her suspected functional dyspepsia and to keep things moving.. I do not intend for her to use it as a p.r.n. as it is not going to be very effective in the situation. With this note I would like to be put her pill boxes as a scheduled medication and I have sent a note to the pharmacy asking this happen.r Return office visit in 4 weeks to evaluate her response to having the med scheduled. Were also ordering an EGD to be thorough. The her COPD is controlled and she denies any cardiac problems. She has no prior problems with anesthesia or sedation. There are no infectious disease problems. Orders: Orders EGD with [facility] - GI Use Only 05/12/23 R10.9 - Unspecified abdominal pain Medications: Changed From metoclopramide HCl PLEASE PUT THIS IS A PILL BOX FORMAT SCHEDULED QID 10 mg PO QID 120 tabs 6RF K59.9 - Functional intestinal disorder, unspecified To metoclopramide HCl (Reglan) PLEASE PUT THIS IS A PILL BOX FORMAT SCHEDULED QID, second request please put this in the pill box scheduled qid 10 mg PO QID 120 tabs 6RF K59.9 - Functional intestinal disorder, unspecified Coding Level of Care Code Est Pt Level 3 (25796) Diagnoses Gastric pain R10.9 GERD (gastroesophageal reflux disease) K21.9 Chronic idiopathic constipation K59.04 Small bowel motility disorder K59.9 COPD (chronic obstructive pulmonary disease) J44.9
[2023-05-12 10:47] VITALS: BMI 24.7
== END 2023-05-12 11:18 | disposition home or self-care (01) ==
PROVIDERS: PCP Family Medicine; Visit Provider Nurse Practitioner
DX: R10.9 Unspecified abdominal pain (principal); K21.9 Gastro-esophageal reflux disease without esophagitis; K59.04 Chronic idiopathic constipation; K59.9 Functional intestinal disorder, unspecified; J44.9 Chronic obstructive pulmonary disease, unspecified
CPT/HCPCS: 99213

== ENCOUNTER → 2023-05-12 10:28 | Outpatient (BNVA) | payer OTHER, SELFPAY | PROVIDERS: PCP Family Medicine; Visit Provider Nurse Practitioner | DX: R10.9 Unspecified abdominal pain (principal); K21.9 Gastro-esophageal reflux disease without esophagitis; K59.04 Chronic idiopathic constipation; K59.9 Functional intestinal disorder, unspecified; J44.9 Chronic obstructive pulmonary disease, unspecified | CPT/HCPCS: 99212 ==

== ENCOUNTER 2023-05-16 11:39 | Outpatient (AMB) | payer OTHER, SELFPAY ==
[2023-05-16 11:42] VITALS: BMI 24.6
--- NOTE | 2023-05-16 11:42 | A.OFFVIS_ITS ---
Intake Vital Signs 05/16/23 11:42 Height 5 ft 8 in Weight 162 lb BMI 24.6 Intake Visit Reasons: ov- MRI Knee LT review Intake Note: Maida is a 67 year old female who presents today for an MRI review of the left knee. Last Injection done 04/11/2023 Allergies vancomycin [VANCOMYCIN] Allergy (Severe, Verified 05/12/23 10:50) REDNESS,RASH,SWELLING Tetanus & Diphtheria Tox,Adult Allergy (Severe, Uncoded 03/31/23 11:40) FEVER,DIFF.BREATHING HPI ov- MRI Knee LT review HPI Details Maida is a 67 year old woman who returns for an MRI review of her left knee. She has not attended any appointment with Pain Management following her referral. She continues to complain of pain and locking of her left knee, along with intermittent effusion. She received a left knee injection on 04/11/23, which she says was only briefly helpful. She has had pain now for approximately 1 year and is frustrated by this. She has difficulty sleeping difficulty engaging in daily activities. She occasionally use an assistive device. She takes ibuprofen regularly. She had a right knee replacement which went very well. [facility] Medical History Vaginal itching Vaginal irritation Small bowel motility disorder Bronchitis COPD (chronic obstructive pulmonary disease) Leukocytosis COPD exacerbation Anxiety COPD (chronic obstructive pulmonary disease) Allergic rhinitis (~12/11/20) Surgical History History of ear surgery Hx of colonoscopy History of right knee joint replacement History of esophagogastroduodenoscopy (EGD) Family History Father Diabetes Mother Diabetes Osteoporosis HTN (hypertension) Sister Pancreas cancer Social History Household Members: None Housing: Apartment Do you presently have visiting nurse or other home services: Yes Alcohol intake: never Patient Tobacco Use Status: Former Tobacco user Tobacco use type: Cigarette Advance Directives Date on File: 11/28/20 service: No Current occupational status: unemployed and disabled 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 Review of Systems Const All systems reviewed & are unremarkable except as noted in HPI and below Physical Exam Vital Signs: BMI result Body Mass Index 24.6 Const General: no acute distress, alert and awake Orientation/consciousness: patient oriented x3 HEENT Head: Yes normocephalic and Yes atraumatic Eyes EOM: EOMs intact bilaterally Resp Effort & Inspection: normal respiratory effort and able to speak in complete sentences Cardio Jugular venous distension: no JVD Skin General skin exam: turgor normal Rashes: no rashes Neuro General: patient oriented x3 Extrem Other: Left Knee: Lateral tenderness to palpation Moderate effusion Psych Appearance: grossly normal Affect: normal affect Attitude: cooperative Results Reviewed Results Reviewed: I personally reviewed relevant radiographs & MR images. 1. Complex tearing of the lateral meniscus anterior horn and root as well as the posterior root. Oblique inner margin tearing of the meniscal body. 2. Moderate lateral as well as mild patellofemoral and medial compartment osteoarthritis. Moderate joint effusion with synovitis. Assessment & Plan Assessment & Plan (1) Osteoarthritis of left knee: Code(s): M17.12 - Unilateral primary osteoarthritis, left knee Plan: This is a 67 year old woman with left knee OA. She has tried injections and NSAIDs and is frustrated by her inability to live comfortably. Daily activities are difficult and she has difficulty sleeping. I recommend left knee arthroplasty. She had a successful arthroplasty on the contralateral leg. She is almost 68 years old and would like to be more active. I discussed the risks, benefits, and alternatives including, but not limited to, the risk of pain, infection, stiffness, need for further surgery as well as potential medical complications such as blood clots, pulmonary embolism and cardiac complications. I discussed the recovery timeline and process as well as the importance of PT. Maida is a good candidate for this surgery, and she wishes to proceed with this decision. (2) Complex tear of lateral meniscus of left knee: Code(s): S83.272A - Complex tear of lateral meniscus, current injury, left knee, initial encounter (3) Effusion, left knee: Code(s): M25.462 - Effusion, left knee (4) Complaints of total body pain: Code(s): R52 - Pain, unspecified (5) Lumbar radiculopathy: Code(s): M54.16 - Radiculopathy, lumbar region (6) History of total right knee replacement: Comment: 2011 Code(s): Z96.651 - Presence of right artificial knee joint Plan Scribed for Moustapha Frost MD by Donaldo Garrett, biomedical service engineer, on 05/16/23 at 11:50 AM, EST. Coding Level of Care Code Est Pt Level 4 (57848) Diagnoses Osteoarthritis of left knee M17.12 Complex tear of lateral meniscus of left knee S83.272A Effusion, left knee M25.462 Complaints of total body pain R52 Lumbar radiculopathy M54.16 History of total right knee replacement Z96.651
== END 2023-05-16 13:12 | disposition home or self-care (01) ==
PROVIDERS: PCP Family Medicine; Visit Provider Orthopaedic Surgery
DX: M17.12 Unilateral primary osteoarthritis, left knee (principal); S83.272A Complex tear of lateral meniscus, current injury, left knee, initial encounter; M54.16 Radiculopathy, lumbar region; Z96.651 Presence of right artificial knee joint
CPT/HCPCS: 99214

== ENCOUNTER → 2023-05-16 11:39 | Outpatient (BNVA) | payer OTHER, SELFPAY | PROVIDERS: PCP Family Medicine; Visit Provider Orthopaedic Surgery | DX: M17.12 Unilateral primary osteoarthritis, left knee (principal); S83.272A Complex tear of lateral meniscus, current injury, left knee, initial encounter; M25.462 Effusion, left knee; M54.16 Radiculopathy, lumbar region; Z96.651 Presence of right artificial knee joint | CPT/HCPCS: 99212 ==

== ENCOUNTER 2023-05-18 14:45 | Outpatient (AMB) | payer OTHER, SELFPAY ==
[2023-05-18 15:08] VITALS: BP 126/80; BMI 25.2
--- NOTE | 2023-05-18 15:08 | A.OFFVIS_ITS ---
Intake Vital Signs 05/18/23 15:08 Height 5 ft 8 in Weight 166 lb BMI 25.2 BP 126/80 Intake Visit Reasons: Skin Check Intake Note: Scribed for Rebecca Canada CNM by Donaldo Garrett medical chief technician, on 05/18/23 at 3:40 PM, EST Beauty Culturist Required: Yes Beauty Culturist Language: Maori Information Interpreted: non-clinical & clinical Custom Feed Mill Operator Helper: Custom Feed Mill Operator Helper Present (Peggy) Allergies vancomycin [VANCOMYCIN] Allergy (Severe, Verified 05/18/23 15:11) REDNESS,RASH,SWELLING Tetanus & Diphtheria Tox,Adult Allergy (Severe, Uncoded 03/31/23 11:40) FEVER,DIFF.BREATHING HPI HPI Comments History of Present Illness Details Patient presents for a follow-up for vaginal irritation. She was last seen on 03/01/23, and has been treating this with Betamethasone cream. She reports feeling better with use of the cream, and she d/c when she felt better. She denies any itching or irritation at this time. She is also presenting for her annual mat puncher examination. She is doing well with no other concerns. Attempting to eat a healthy diet but she reports struggling with this. She is on vitamin supplements. She struggles to remain active due to her osteoarthritis. Currently not sexually active. Denies any vaginal dryness or irritation. Last pap smear; unknown, patient reports previous studies were normal. Last mammogram; recently, performed at [facility] and patient reports this was normal. Colonoscopy is UTD. Denies any family history of breast, ovarian or colon cancer. [facility] Medical History Vaginal itching Vaginal irritation Small bowel motility disorder Bronchitis COPD (chronic obstructive pulmonary disease) Leukocytosis COPD exacerbation Anxiety COPD (chronic obstructive pulmonary disease) Allergic rhinitis (~12/11/20) Surgical History History of ear surgery Hx of colonoscopy History of right knee joint replacement History of esophagogastroduodenoscopy (EGD) Family History Father Diabetes Mother Diabetes Osteoporosis HTN (hypertension) Sister Pancreas cancer Social History (Reviewed 05/18/23 @ 15:55 by BOONE Santacruz Household Members: None Housing: Apartment Do you presently have visiting nurse or other home services: Yes Alcohol intake: never Patient Tobacco Use Status: Former Tobacco user Tobacco use type: Cigarette Advance Directives Date on File: 11/28/20 service: No Current occupational status: unemployed and disabled 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 Review of Systems Const All systems reviewed & are unremarkable except as noted in HPI and below Reports as per HPI Eyes Reports no additional complaints ENT Reports no additional complaints Card Reports no additional complaints Resp Reports no additional complaints GI Reports as per HPI and Reports no additional complaints Reports as per HPI Musc Reports no additional complaints Skin/Breast Reports as per HPI Neuro Reports no additional complaints Psych Reports no additional complaints Endo Reports no additional complaints Morgan/Lymph Reports no additional complaints Aller/Immun Reports no additional complaints Physical Exam Vital Signs: Last Vital Signs BP 126/80 05/18/23 15:08 BMI result Body Mass Index 25.2 Const General: cooperative, healthy appearing and no acute distress Orientation/consciousness: patient oriented x3 HEENT Head: Yes normal to inspection Eyes General: appearance normal, both eyes and all related structures Neck Neck: Yes normal visual inspection Thyroid: Thyroid normal Chest Chest palpation & inspection: normal inspection of the chest and other (no puckering, dimpling, peau de orange, retraction, discharge, masses) Breast/axilla inspection: normal inspection of the breasts Breast/axilla palpation: normal palpation of the breasts (Bilateral tenderness with palpation, patient reports this is common) Resp Effort & Inspection: normal respiratory effort GI Inspection: Yes normal to inspection Palpation (GI): Soft to palpation and Other GI palpation findings present (Nontender) Rectal Exam - Female: visual inspection normal General: Yes bladder normal to palpation External Female Exam: normal appearance of the urethra Speculum Exam - Vagina: normal appearance of the vagina, normal palpation, normal vaginal discharge and vagina atrophic Speculum Exam - Cervix: abnormal appearance of the cervix (atrophic), normal palpation and Other cervical findings present (bled slightly with pap) Bimanual exam- vagina & uterus: normal bimanual exam, normal palpation, uterine size normal, bladder normal to palpation, normal palpation, uterine shape normal and non-tender Bimanual Exam- Adnexa, other: normal adnexae Skin General skin exam: no rashes or lesions noted Rashes: no rashes Neuro General: patient oriented x3 Cognition (Neuro): normal cognition Extrem General: Yes normal to inspection Psych Attitude: cooperative Thought process: Normal thought process present Assessment & Plan Assessment & Plan (1) Vaginal irritation: Code(s): N89.8 - Other specified noninflammatory disorders of vagina Plan: Resolved with Betamethasone cream. No complaints of irritation or itching at this time. If her symptoms return she can resume using the topical Betamethasone. All of her questions and concerns were addressed to the best of my ability and shared decision making. (2) Encounter for annual routine gynecological examination: Code(s): Z01.419 - Encounter for gynecological examination (general) (routine) without abnormal findings Plan: Discussed: Current recommendations for pap smears per ASCCP guidelines. Breast awareness, periodic self breast exams and yearly mammogram. Maintain a healthy lifestyle, well balanced diet including Calcium 1,200 mg and Vitamin D 600 IU daily, and routine exercise. She will work on having her recent mammogram results released from [facility]. Contact the office with any postmenopausal bleeding. Sign up for the patient portal if not already enrolled. Pap smear performed. All of her questions and concerns were addressed to the best of my ability. She will return in one year for AG. Coding Level of Care Code Est Pt Prev Care >65y(91364) Diagnoses Vaginal irritation N89.8 Encounter for annual routine gynecological examination Z01.419
== END 2023-05-18 15:55 | disposition home or self-care (01) ==
PROVIDERS: PCP Family Medicine; Visit Provider Advanced Practice Midwife
DX: Z01.419 Encounter for gynecological examination (general) (routine) without abnormal findings (principal); N89.8 Other specified noninflammatory disorders of vagina
CPT/HCPCS: 99397

== ENCOUNTER 2023-05-18 14:45 | Outpatient (REF) | payer OTHER, SELFPAY ==
[2023-05-23 11:59] LABS: HPV mRNA E6/E7 rflx Not Detected (Not Detected)
== END 2023-05-18 14:46 | disposition home or self-care (01) ==
LOC: HO.LNP 14:45
PROVIDERS: PCP Family Medicine; Visit Provider Advanced Practice Midwife
DX: Z01.419 Encounter for gynecological examination (general) (routine) without abnormal findings (principal); Z11.51 Encounter for screening for human papillomavirus (HPV); N89.8 Other specified noninflammatory disorders of vagina
CPT/HCPCS: 87624; 88142

== ENCOUNTER 2023-05-24 10:41 | Outpatient (REF) | payer OTHER, SELFPAY ==
--- NOTE | ~2023-05-24 | XR_ITS ---
EXAMINATION: XR CHEST 2 VIEW CLINICAL INFORMATION: Dyspnea, left pleuritic chest pain COMPARISON: 06/01/2021 TECHNIQUE: PA and lateral views of the chest obtained. FINDINGS: The lungs are clear. There are no pleural effusions. The cardiomediastinal silhouette is normal. Thoracolumbar scoliosis is again evident. XR/XR chest 2V IMPRESSION: No acute cardiopulmonary disease.
[2023-05-24 19:28] LABS: Influenza A PCR NEGATIVE (Negative); Influenza B PCR NEGATIVE (Negative); Resp Syncy Virus RNA Qual PCR NEGATIVE (Negative); SARS COV2 PCR INHOUSE NEGATIVE (Negative)
== END 2023-05-24 10:42 | disposition home or self-care (01) ==
LOC: HO.HHCX 10:41
PROVIDERS: Visit Provider Internal Medicine
DX: Z11.52 Encounter for screening for COVID-19 (principal); R06.00 Dyspnea, unspecified; R10.12 Left upper quadrant pain; Z20.822 Contact with and (suspected) exposure to COVID-19
CPT/HCPCS: 0241U; 71046

== ENCOUNTER 2023-05-26 11:26 | Emergency (ER) | payer OTHER, SELFPAY ==
--- NOTE | ~2023-05-26 | XR_ITS ---
EXAMINATION: XR KNEE, LEFT CLINICAL INFORMATION: Left-sided pain COMPARISON: None available. TECHNIQUE: Four views of the left knee. FINDINGS: There is prominent spurring off the lateral tibial plateau. No fracture or dislocation or destructive process. There is however a moderate joint effusion. This could herald the presence of internal derangement. XR/XR knee LT 4V IMPRESSION: Joint effusion. No definite fracture. Internal derangement however may be present.
--- NOTE | 2023-05-26 12:21 | ED_ITS ---
HPI - General Adult General Chief complaint: Extremity Injury, Lower Stated complaint: L Leg Pain Time Seen by Provider: 05/26/23 12:32 Source: patient, RN notes reviewed and old records reviewed Mode of arrival: ambulatory History of Present Illness HPI narrative: 67-year-old female with a past medical history of left knee osteoarthritis, COPD, anxiety, bronchitis, presenting to the ED complaining of acute on chronic left knee pain. Patient had left knee MRI on 04/29/23 which shows complex lateral meniscal tear, joint effusion and osteoarthritis. Patient saw orthopedics on 05/16/2023 and knee arthroplasty was recommended, appears patient will be proceeding with procedure, scheduled in August. States cannot handle pain any longer, take Tylenol and naproxen at home without relief. Denies numbness, tingling, weakness, fever/chills Onset (ago): year(s) Related Data Home Medications Medication Instructions Recorded Confirmed cholecalciferol (vitamin D3) 50 50 mcg PO DAILY 05/21/20 03/02/22 mcg (2,000 unit) tablet cyanocobalamin (vitamin B-12) 1,000 mcg PO DAILY 05/21/20 03/02/22 1,000 mcg tablet loratadine 10 mg tablet 10 mg PO DAILY 05/21/20 03/02/22 zafirlukast 20 mg tablet 20 mg PO BID 05/21/20 03/02/22 albuterol sulfate 90 mcg/actuation 2 puff PO Q4H PRN dyspnea 11/28/20 03/02/22 aerosol inhaler ropinirole 0.25 mg tablet 0.25 mg PO BEDTIME 02/09/22 03/02/22 albuterol sulfate 2.5 mg/3 mL mg inhalation Q4H PRN 03/02/22 03/02/22 (0.083 %) solution for nebulization fluticasone 250 mcg-salmeterol 50 1 ea inhalation BID 03/02/22 03/02/22 mcg/dose blistr powdr for inhalation sumatriptan succinate 100 mg tablet 100 mg PO Q2-4H PRN 03/10/22 fluticasone propionate 50 2 spray intranasal DAILY 03/31/22 mcg/actuation nasal spray,suspension ibuprofen 400 mg tablet 400 mg PO Q6H PRN fever 10/21/22 clonazepam 1 mg tablet 1 mg PO BID PRN 11/25/22 lamotrigine 150 mg tablet 75 mg PO 02/04/23 meclizine 25 mg tablet 25 mg PO TID PRN dizziness 02/04/23 azelastine 137 mcg (0.1 %) nasal intranasal 03/31/23 spray aerosol mirtazapine 7.5 mg tablet 7.5 mg PO BEDTIME 03/31/23 multivitamin-iron sulfate 15 tab PO 03/31/23 mg-folic acid 400 mcg tablet (Tab-A-Aurea Multivitamin w-iron) ondansetron 4 mg disintegrating 4 mg PO Q8H 05/12/23 tablet mirtazapine 15 mg tablet 15 mg PO BEDTIME 05/16/23 calcium polycarbophil 625 mg mg PO 05/18/23 tablet (Fiber-Lax) Previous Rx's Medication Instructions Recorded famotidine 40 mg tablet 40 mg PO BEDTIME #30 tabs 10/21/22 bisacodyl 5 mg tablet,delayed 10 mg (2 x 5 mg) PO BEDTIME #60 ea 02/04/23 release docusate sodium 100 mg capsule 100 mg PO BID #60 caps 02/04/23 linaclotide 290 mcg capsule 290 mcg PO QAM 30 days #30 caps 02/04/23 (Linzess) pantoprazole 40 mg tablet,delayed 40 mg PO BID 30 days #60 tabs 02/04/23 release betamethasone, augmented 0.05 % 1 appl topical BID allergic 03/01/23 topical ointment reaction 7 days #45 grams metoclopramide HCl 10 mg tablet 10 mg PO QID #120 tabs 05/12/23 (Reglan) acetaminophen 500 mg tablet 500 mg PO Q6H PRN fever or pain 05/26/23 (Tylenol Extra Strength) #14 tabs diclofenac sodium 1 % topical gel 4 g topical QID #100 grams 05/26/23 (Aleve (diclofenac)) naproxen 500 mg tablet 500 mg PO BID PRN pain 10 days #20 05/26/23 tabs Allergies Allergy/AdvReac Type Severity Reaction Status Date / Time vancomycin [VANCOMYCIN] Allergy Severe REDNESS,ANDI Verified 05/18/23 15:11 H,SWELLING Tetanus & Diphtheria Allergy Severe FEVER,DIFF. Uncoded 03/31/23 11:40 Tox,Adult BREATHING Review of Systems Review of Systems: Constitutional: No Fever, No Chills Cardiovascular: No Chest Pain, No SOB Respiratory: No Cough, No Sputum, No Wheezing Gastrointestinal: No Nausea, No Vomiting, No Diarrhea, No Constipation, No Abdominal pain Musculoskeletal: + joint pain, No Myalgias, + Joint Swelling Skin: No Skin Lesions, No rash Neuro: No Weakness, No Numbness, No Paresthesias Yes all other systems are reviewed and are negative Constitutional: Constitutional: Reports as per [facility] Past Medical History Attestation statement: The following information was validated with the patient. Source: old records reviewed Medical History Vaginal itching Vaginal irritation Small bowel motility disorder Bronchitis COPD (chronic obstructive pulmonary disease) Leukocytosis COPD exacerbation Anxiety COPD (chronic obstructive pulmonary disease) Allergic rhinitis (~12/11/20) Surgical History History of ear surgery Hx of colonoscopy History of right knee joint replacement History of esophagogastroduodenoscopy (EGD) Family History Family History Father Diabetes Mother Diabetes Osteoporosis HTN (hypertension) Sister Pancreas cancer Social History Social History Household Members: None Housing: Apartment Do you presently have visiting nurse or other home services: Yes Alcohol intake: never Patient Tobacco Use Status: Former Tobacco user Tobacco use type: Cigarette Advance Directives: Yes Advance Directives on File: Yes Advance Directives Date on File: 11/28/20 service: No Current occupational status: unemployed and disabled 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 Physical Exam ED Vital Signs: Vital Signs - 24 hr 05/26/23 12:22 Temperature 97.3 F Pulse Rate 77 Respiratory Rate 18 Blood Pressure 101/46 L Pulse Oximetry 99 Oxygen Delivery Method Room Air BMI result Body Mass Index 26.5 Const General: cooperative, healthy appearing and no acute distress Orientation/consciousness: patient oriented x3 Limitations: no limitations HENMT Head: Yes normal to inspection and Yes atraumatic Ears: hearing grossly normal bilaterally General nose exam: Normal external nose present Face and sinus: Yes normal facial exam Eyes General: appearance normal, both eyes and all related structures EOM: EOMs intact bilaterally Neck Neck: Yes normal visual inspection and Yes no meningeal signs Resp Effort & Inspection: normal respiratory effort and no respiratory distress Cardio Rate: regular rate Skin Rashes: no rashes Wounds: no wounds Neuro General: patient oriented x3, tone normal and no meningeal signs Cranial nerves: Yes CN's II-XII intact bilaterally Gait exam (Neuro): Normal gait present Extrem Other: Left knee with noted swelling/joint effusion. Diffusely tender to palpation. Limited flexion secondary to pain. No erythema/warmth or crepitus. No ecchymosis. Neurovascular intact distally. No edema Course Course Course Narrative: This is an RME: Additional HPI, ROS, PE not included below will be deferred to primary provider. 67 year old female presents w/ acute on chronic left knee pain and swelling patient is followed by Dr. Frost she says and she was told she may get surgery in July per patient but she says she cant wait until then. Reports this pain feels worse and different than usual. No trauma Plan- xray Medications Administered Discontinued Medications Generic Name Dose Route Start Last Admin Trade Name Freq PRN Reason Stop Dose Admin Ketorolac Tromethamine 30 mg 05/26/23 12:58 05/26/23 13:11 Ketorolac Tromethamine 30 Mg/Ml Vial IM 05/26/23 12:59 30 mg ONCE ONE Administration Medical Decision Making Medical Decision Making MDM Narrative: 67-year-old female with a past medical history of left knee osteoarthritis, COPD, anxiety, bronchitis, presenting to the ED complaining of acute on chronic left knee pain. On exam vital signs stable, NAD, nontoxic appearing, physical exam as noted above. Concern for known osteoarthritis and meniscal tear. Likely acute on chronic pain. Low suspicion for fracture, dislocation, septic joint or DVT Plan: IM Toradol, topical diclofenac, pain management consult, orthopedic follow-up Please refer to course for remaining clinical decision making, interpretation of labs/imaging results, and discussions with consultants and/or family members. Differential Diagnosis Differential Diagnoses: The differential diagnosis associated with the presentation includes As above Radiology Impression Discussion of test interpretation with radiology: I have reviewed the radiologist's reading. External Record Review External record reviewed: Inpatient record, Office record, Outpatient record, Prior outpatient labs, Prior outpatient radiology, Primary care record and Outside ED record Tests considered The following testing was considered but not selected: As above Prescription Management I considered prescription management with: Pain Medication Discharge Plan Discharge Clinical Impression: Knee osteoarthritis Patient Disposition: Home, Self-Care Instructions: Osteoarthritis (DC) Additional Instructions: Your MRI from last month shows a meniscal tear as well as osteoarthritis You should proceed with scheduled knee replacement Continue taking naproxen and Tylenol at home. Take naproxen with food In addition diclofenac topical ointment is an anti-inflammatory pain medicine Please follow-up with pain management If symptoms persist or worsen/pain becomes unbearable or area looks infected return to the ED Frey resonancia magn?javed del mes pasado muestra un desgarro de menisco y osteoartritis. Debe proceder con el reemplazo de rodilla programado. Contin?e tomando naproxeno y Tylenol en casa. [employer] naproxeno con alimentos. Adem?s, la pomada t?pica de diclofenaco es un analg?sico antiinflamatorio. Por favor adrian un seguimiento con el manejo del dolor. Si los s?ntomas persisten o empeoran/el dolor se vuelve insoportable o el ?vicki parece infectada, regrese al servicio de urgencias. Prescriptions: New acetaminophen [Tylenol Extra Strength] 500 mg tablet 500 mg PO Q6H PRN (Reason: fever or pain) Qty: 14 0RF naproxen 500 mg tablet 500 mg PO BID PRN (Reason: pain) 10 Days Qty: 20 0RF diclofenac sodium [Aleve (diclofenac)] 1 % gel 4 g topical QID Qty: 100 0RF Rx Instructions: apply to single knee, ankle, foot; for foot includes sole/toes/top of foot No Action albuterol sulfate 90 mcg/actuation HFA aerosol inhaler 2 puff PO Q4H PRN (Reason: dyspnea) loratadine 10 mg tablet 10 mg PO DAILY zafirlukast 20 mg tablet 20 mg PO BID cyanocobalamin (vitamin B-12) 1,000 mcg tablet 1,000 mcg PO DAILY cholecalciferol (vitamin D3) 50 mcg (2,000 unit) tablet 50 mcg PO DAILY clonazepam 1 mg tablet 1 mg PO BID PRN fluticasone propion-salmeterol 250-50 mcg/dose blister with device 1 ea inhalation BID albuterol sulfate 2.5 mg /3 mL (0.083 %) solution for nebulization inhalation Q4H PRN sumatriptan succinate 100 mg tablet 100 mg PO Q2-4H PRN Rx Instructions: do not exceed 2 doses per 24 hrs fluticasone propionate 50 mcg/actuation spray,suspension 2 spray intranasal DAILY ibuprofen 400 mg tablet 400 mg PO Q6H PRN (Reason: fever) famotidine 40 mg tablet 40 mg PO BEDTIME Qty: 30 6RF ropinirole 0.25 mg tablet 0.25 mg PO BEDTIME lamotrigine 150 mg tablet 75 mg PO meclizine 25 mg tablet 25 mg PO TID PRN (Reason: dizziness) bisacodyl 5 mg tablet,delayed release (DR/EC) 10 mg PO BEDTIME Qty: 60 6RF Rx Instructions: PLEASE PUT 2 EACH IN HER PILL BOX FOR BEDTIME TO PROMOTE COMPLIANCE Linzess 290 mcg capsule 290 mcg PO QAM 30 Days Qty: 30 6RF Rx Instructions: PLEASE PUT IN MED BOX FORMAT pantoprazole 40 mg tablet,delayed release (DR/EC) 40 mg PO BID 30 Days Qty: 60 6RF Rx Instructions: PLEASE PUT IN MED BOX FORMAT docusate sodium 100 mg capsule 100 mg PO BID Qty: 60 6RF Rx Instructions: PLEASE PUT IN MED BOX FORMAT betamethasone, augmented 0.05 % ointment 1 appl topical BID 7 Days Qty: 45 1RF Rx Instructions: apply a thin coat to area BID x 1 week, then use nightly x 1 week, then every other night for one week, then D/c Tab-A-Aurea Multivitamin w-iron 15 mg iron- 400 mcg tablet PO mirtazapine 7.5 mg tablet 7.5 mg PO BEDTIME azelastine 137 mcg (0.1 %) aerosol,spray intranasal ondansetron 4 mg tablet,disintegrating 4 mg PO Q8H metoclopramide HCl [Reglan] 10 mg tablet 10 mg PO QID Qty: 120 6RF Rx Instructions: PLEASE PUT THIS IS A PILL BOX FORMAT SCHEDULED QID, second request please put this in the pill box scheduled qid mirtazapine 15 mg tablet 15 mg PO BEDTIME calcium polycarbophil [Fiber-Lax] 625 mg tablet PO Referrals: [facility] [place] [Provider Group] Amelia Montalvo DO [Primary Care Provider] - Interventions: ED Discharge Assessment Last Done: 05/26/23 13:44 Discharge Date/Time: 05/26/23 13:45 Print Language: Mongolian
[2023-05-26 12:22] VITALS: BP 101/46; PULSE 77; RESP 18; TEMP 36.3; O2SAT 99; BMI 26.5
[2023-05-26] MEDS: Ketorolac Tromethamine 30 MG/ML VIAL IM (13:11)
== END 2023-05-26 13:45 | disposition home or self-care (01) ==
PROVIDERS: Emergency Provider Emergency Medicine; PCP Family Medicine
DX: M17.12 Unilateral primary osteoarthritis, left knee (principal); Z79.899 Other long term (current) drug therapy; Z87.891 Personal history of nicotine dependence
CPT/HCPCS: 73564; 96372; 99283; 99284; J1885

== ENCOUNTER 2023-06-27 08:27 | Outpatient (REF) | payer OTHER, SELFPAY ==
--- NOTE | ~2023-06-27 | US_ITS ---
EXAMINATION: US ABDOMEN COMPLETE CLINICAL INFORMATION: Left upper quadrant pain, epigastric tenderness, weight loss. COMPARISON: Ultrasound abdomen complete 02/24/2021 and 08/24/2016. CT abdomen and pelvis with contrast 03/30/2016. TECHNIQUE: Real-time imaging of the abdominal viscera. FINDINGS: PANCREAS: Normal. ABDOMINAL AORTA: The proximal, mid, and distal segments are normal in caliber. INFERIOR VENA CAVA: Visualized portions are normal. LIVER: Normal. The liver is normal in size. The liver contour is normal. Parenchymal echogenicity is normal. No focal hepatic lesion. There is no intrahepatic biliary duct dilatation seen. GALLBLADDER: Normal. The gallbladder is physiologically distended without evidence of stones, sludge, polyps, wall thickening or pericholecystic fluid. COMMON BILE DUCT: Normal in caliber measuring 0.5 cm in diameter. RIGHT KIDNEY: Normal. No hydronephrosis. No renal calculi or focal parenchymal lesions. The kidney measures 9.8 cm in maximum dimension. LEFT KIDNEY: Normal. No hydronephrosis. No renal calculi or focal parenchymal lesions. The kidney measures 8.8 cm in maximum dimension. SPLEEN: Normal. The spleen measures 10.5 cm in maximum dimension. FREE FLUID: None. US/US abdomen complete IMPRESSION: Negative exam.
== END 2023-06-27 08:28 | disposition home or self-care (01) ==
LOC: HO.US 08:27
PROVIDERS: PCP Family Medicine; Visit Provider Internal Medicine
DX: R10.12 Left upper quadrant pain (principal)
CPT/HCPCS: 76700

== ENCOUNTER 2023-07-05 14:11 | Outpatient (AMB) | payer OTHER, SELFPAY ==
--- NOTE | 2023-07-05 14:16 | A.OFFVIS_ITS ---
Intake Vital Signs 07/05/23 14:19 Height 5 ft 8 in Weight 167 lb BMI 25.4 BP 120/80 Blood Pressure Location Lt brachial Position Sitting Pulse 71 Pulse Source Pulse Oximeter Pulse Oximetry (%) 99 Oxygen Delivery Method Room Air Intake Visit Reasons: COPD Intake Note: pt is here for shortness of breath for over a week, coughing and having an asthma sensation. mild chest pain, no phelgm with cough. stairs and walking fast affecting her breathing, no fever, some discomfort in the throat. Watch Guard Gate Required: Yes Watch Guard Gate Name: Adolfo [id number] Allergies vancomycin [VANCOMYCIN] Allergy (Severe, Verified 07/05/23 14:25) REDNESS,RASH,SWELLING Tetanus & Diphtheria Tox,Adult Allergy (Severe, Uncoded 07/05/23 14:25) FEVER,DIFF.BREATHING Medication List - Last Reconciled 07/05/23 by Jared Langley MD acetaminophen (Tylenol Extra Strength) 500 mg PO Q6H PRN albuterol sulfate 90 mcg/actuation 2 puffs PO Q4H PRN albuterol sulfate mg inhalation Q4H PRN azelastine intranasal betamethasone, augmented 0.05 % 1 appl topical BID 7 days bisacodyl 10 mg (2 x 5 mg) PO BEDTIME calcium polycarbophil (Fiber-Lax) mg PO cholecalciferol (vitamin D3) 50 mcg PO DAILY clonazepam 1 mg PO BID PRN cyanocobalamin (vitamin B-12) 1,000 mcg PO DAILY diclofenac sodium 1% (Aleve (diclofenac)) 4 grams topical QID docusate sodium 100 mg PO BID famotidine 40 mg PO BEDTIME fluticasone propion-salmeterol 250-50 mcg/dose 1 ea inhalation BID fluticasone propionate 50 mcg/actuation 2 sprays intranasal DAILY ibuprofen 400 mg PO Q6H PRN lamotrigine 75 mg PO linaclotide (Linzess) 290 mcg PO QAM 30 days loratadine 10 mg PO DAILY meclizine 25 mg PO TID PRN metoclopramide HCl (Reglan) 10 mg PO QID mirtazapine 7.5 mg PO BEDTIME mirtazapine 15 mg PO BEDTIME multivit-iron sulf-folic acid 15 mg iron- 400 mcg (Tab-A-Aurea Multivitamin w- iron) tabs PO naproxen 500 mg PO BID PRN 10 days ondansetron 4 mg PO Q8H pantoprazole 40 mg PO BID 30 days ropinirole 0.25 mg PO BEDTIME sumatriptan succinate 100 mg PO Q2-4H PRN zafirlukast 20 mg PO BID Do you need a note to return to daycare/school/sports/work: No HPI COPD HPI Details This 68 years old female is very pleasant but relatively anxious, she has been doing well for the last 6 months. Now for the past 1 week she is having increased cough , feels congested, and due to repeated cough she develops discomfort in the chest/pain. Has had no fever chills or wheezing attacks. She was afraid that she may develope acute asthma attack are pneumonia. Does she is here for checkup and treatment. [facility] Medical History Vaginal itching Vaginal irritation Small bowel motility disorder Bronchitis COPD (chronic obstructive pulmonary disease) Leukocytosis COPD exacerbation Anxiety COPD (chronic obstructive pulmonary disease) Allergic rhinitis (~12/11/20) Surgical History History of ear surgery Hx of colonoscopy History of right knee joint replacement History of esophagogastroduodenoscopy (EGD) Family History Father Diabetes Mother Diabetes Osteoporosis HTN (hypertension) Sister Pancreas cancer Social History Household Members: None Housing: Apartment Do you presently have visiting nurse or other home services: Yes Alcohol intake: never Patient Tobacco Use Status: Former Tobacco user Tobacco use type: Cigarette Advance Directives Date on File: 11/28/20 service: No Current occupational status: unemployed and disabled 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 Review of Systems Const All systems reviewed & are unremarkable except as noted in HPI and below Eyes Reports no additional complaints ENT Reports nasal congestion and Reports nasal discharge Card Denies chest pain, Denies irregular heart rhythm and Denies leg edema Resp Reports as per HPI GI Reports constipation Reports no additional complaints Musc Reports no additional complaints Skin/Breast Reports system reviewed and no additional complaints, except as documented Neuro Reports no additional complaints Psych Reports anxiety Physical Exam Vital Signs: Last Vital Signs Pulse 71 07/05/23 14:19 BP 120/80 07/05/23 14:19 Pulse Ox 99 07/05/23 14:19 Oxygen Delivery Method Room Air 07/05/23 14:19 BMI result Body Mass Index 25.4 Const General: comfortable, no acute distress, alert and awake Orientation/consciousness: patient oriented x3 HEENT Head: Yes normal to inspection General nose exam: No nasal polyps present, No nasal discharge present and Other nasal findings present (Mild chronic nasal congestion) Face and sinus: Yes sinuses nontender Mouth: oropharynx normal Throat: Yes posterior oropharynx normal Eyes General: appearance normal, both eyes and all related structures Neck Neck: Yes normal visual inspection, Yes no lymphadenopathy, Yes trachea midline and Yes no JVD Thyroid: Thyroid normal Chest Chest palpation & inspection: normal inspection of the chest, normal palpation of entire chest wall and no tenderness Resp Other: Percussion note is resonant, has good breath sounds on both sides. No audible wheezes rhonchi or crepitations. She complains of cough when she takes a deep breath. Complains of discomfort in the chest during examination. Cardio Palpation: normal PMI Rate: regular rate Rhythm: regular rhythm Heart sounds: no gallops and no murmurs Peripheral pulses: Peripheral pulses 2+ throughout GI Palpation (GI): Soft to palpation, nontender, No hepatosplenomegaly present and no masses Auscultation: normal bowel sounds Back/Spine/Pelvis Thoracic/Lumbar Spine: thoracic and lumbar spine normal to inspection Skin General skin exam: no rashes or lesions noted Neuro General: patient oriented x3 and no focal motor deficits Cranial nerves: Yes CN's II-XII intact bilaterally Extrem General: Yes normal to inspection, Yes no clubbing, cyanosis or edema and Yes no calf tenderness Psych Appearance: grossly normal and well kempt Speech and movement: Normal speech and movement present Affect: Anxious affect present Assessment & Plan Assessment & Plan (1) COPD (chronic obstructive pulmonary disease): Comment: Patient has very mild Asthma/Chronic obstructive pulmonary disease, which seems to be well controlled and stable at this time. TX Advair 250-50 1 inhalation b.i.d.. Ventolin HFA 2 puffs Q 4-6 hours only p.r.n.. Patient also has nebulizer at home , may use albuterol 0.63 mg, Q 4-6 hours only p.r.n.. Code(s): J44.9 - Chronic obstructive pulmonary disease, unspecified Plan: as above . Explained to the patient that she does not have any pneumonia, She has mild bronchitis causing increased symptoms. Will treat her with a course of prednisone empirically, I explained to her that she does not need any antibiotic. (2) Bronchitis: Comment: Her current symptoms are secondary to nonspecific, most likely viral acute bronchitis. She is reassured that she does not need any antibiotic for at this time. Just to be on the safe side I will prescribe a short course of prednisone, 20 mg a day for 5 days. She is advised to use cough drops or Robitussin 2 tsf tid Code(s): J40 - Bronchitis, not specified as acute or chronic Plan: as above (3) Allergic rhinitis: Onset Date: ~12/11/20 Comment: This is her chronic problem. Seems to be well controlled and stable at this time. TX: Flonase 2 spray each nostril daily, and Azelastin 1 spray each nostril b.i.d..prn Code(s): J30.9 - Allergic rhinitis, unspecified Plan: as above (4) Anxiety: Comment: Patient is quite worried and concerned about her lung disease. SHE NEEDS LOT OF REASSURANCE. She understands fairly well. Code(s): F41.9 - Anxiety disorder, unspecified Plan: as above Medications: New prednisone 20 mg PO BID 10 tabs 0RF Asthma Excerbation Coding Level of Care Code Est Pt Level 3 (95826) Diagnoses COPD (chronic obstructive pulmonary disease) J44.9 Bronchitis J40 Allergic rhinitis J30.9 Anxiety F41.9
[2023-07-05 14:19] VITALS: BP 120/80; PULSE 71; O2SAT 99; BMI 25.4
== END 2023-07-05 14:57 | disposition home or self-care (01) ==
PROVIDERS: PCP Family Medicine; Visit Provider Internal Medicine
DX: J44.9 Chronic obstructive pulmonary disease, unspecified (principal); J40 Bronchitis, not specified as acute or chronic; J30.9 Allergic rhinitis, unspecified; F41.9 Anxiety disorder, unspecified
CPT/HCPCS: 99213

== ENCOUNTER → 2023-07-05 14:11 | Outpatient (BNVA) | payer OTHER, SELFPAY | PROVIDERS: PCP Family Medicine; Visit Provider Internal Medicine | DX: J44.9 Chronic obstructive pulmonary disease, unspecified (principal); J40 Bronchitis, not specified as acute or chronic; J30.9 Allergic rhinitis, unspecified; F41.9 Anxiety disorder, unspecified | CPT/HCPCS: 99212 ==

== ENCOUNTER 2023-08-10 07:53 | Outpatient (AMB) | payer OTHER, SELFPAY ==
[2023-08-10 08:43] VITALS: BP 90/64; PULSE 79; BMI 25.8
--- NOTE | 2023-08-10 08:43 | MHC.OFFVIS ---
Intake Vital Signs 08/10/23 08:43 Height 5 ft 8 in Weight 169 lb 12.095 oz BMI 25.8 BP 90/64 Blood Pressure Location Lt brachial Position Sitting Pulse 79 Intake Visit Reasons: NPV/[place]/Chest pain Intake Note: NPV w/ EKG Couture Dressmaker Required: Yes Couture Dressmaker Language: Process Control Programmer Name: Edwige [id number] Accompanied by: Self / Same As Patient Allergies vancomycin [VANCOMYCIN] Allergy (Severe, Verified 08/10/23 08:44) REDNESS,RASH,SWELLING Tetanus & Diphtheria Tox,Adult Allergy (Severe, Uncoded 08/10/23 08:44) FEVER,DIFF.BREATHING Medication List - Last Reconciled 08/10/23 by Marcellus Calzada MD acetaminophen (Tylenol Extra Strength) 500 mg PO Q6H PRN albuterol sulfate 90 mcg/actuation 2 puffs PO Q4H PRN albuterol sulfate mg inhalation Q4H PRN azelastine intranasal betamethasone, augmented 0.05 % 1 appl topical BID 7 days bisacodyl 10 mg (2 x 5 mg) PO BEDTIME calcium polycarbophil (Fiber-Lax) mg PO cholecalciferol (vitamin D3) 50 mcg PO DAILY clonazepam 1 mg PO BID PRN cyanocobalamin (vitamin B-12) 1,000 mcg PO DAILY diclofenac sodium 1% (Aleve (diclofenac)) 4 grams topical QID docusate sodium 100 mg PO BID famotidine 40 mg PO BEDTIME fluticasone propion-salmeterol 250-50 mcg/dose 1 ea inhalation BID fluticasone propionate 50 mcg/actuation 2 sprays intranasal DAILY ibuprofen 400 mg PO Q6H PRN lamotrigine 75 mg PO linaclotide (Linzess) 290 mcg PO QAM 30 days loratadine 10 mg PO DAILY meclizine 25 mg PO TID PRN metoclopramide HCl (Reglan) 10 mg PO QID mirtazapine 7.5 mg PO BEDTIME mirtazapine 15 mg PO BEDTIME multivit-iron sulf-folic acid 15 mg iron- 400 mcg (Tab-A-Aurea Multivitamin w-iron) tabs PO naproxen 500 mg PO BID PRN 10 days ondansetron 4 mg PO Q8H pantoprazole 40 mg PO BID 30 days prednisone 20 mg PO BID ropinirole 0.25 mg PO BEDTIME sumatriptan succinate 100 mg PO Q2-4H PRN zafirlukast 20 mg PO BID HPI HPI Comments History of Present Illness Details Maida is here for consultation regarding chest pains. Discussed with using automotive parts interpreter. Per PCP note, mentioned retrosternal discomfort. However, patient is somewhat vague about it. In spite of questioning in different ways difficult to get a clear-cut answer. However, seems to happen more at rest than during activity and sometimes she is lying down extra. No clear exertional patterns. No previous history of any coronary disease myocardial infarction or cardiomyopathy. Seems to be on polypharmacy. [facility] Medical History Vaginal itching Vaginal irritation Small bowel motility disorder Bronchitis COPD (chronic obstructive pulmonary disease) Leukocytosis COPD exacerbation Anxiety COPD (chronic obstructive pulmonary disease) Allergic rhinitis (~12/11/20) Surgical History History of ear surgery Hx of colonoscopy History of right knee joint replacement History of esophagogastroduodenoscopy (EGD) Family History Father Diabetes Mother Diabetes Osteoporosis HTN (hypertension) Sister Pancreas cancer Social History Household Members: None Housing: Apartment Do you presently have visiting nurse or other home services: Yes Alcohol intake: never Patient Tobacco Use Status: Former Tobacco user Tobacco use type: Cigarette Advance Directives Date on File: 11/28/20 service: No Current occupational status: unemployed and disabled 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 Review of Systems Const Denies chills, Denies daytime sleepiness, Denies fatigue, Denies fever(s), Denies frequent falls, Denies night sweats, Denies snoring, Denies weakness, Denies weight gain and Denies weight loss Eyes Denies loss of vision ENT Denies dizziness and Denies hearing loss Card Reports chest pain, Denies chest pain with activity, Denies syncope, Denies rapid heart rate, Denies edema, Denies claudication, Denies leg edema, Denies lightheadedness, Denies palpitations, Reports dyspnea, Denies dyspnea on exertion and Denies orthopnea Resp Denies cough, Denies excessive phlegm production, Reports dyspnea, Denies dyspnea on exertion, Denies snoring and Denies wheezing GI Denies abdominal pain, Denies hematochezia, Denies change in bowel habits, Denies change in stool character, Denies heartburn, Denies nausea and Denies vomiting Denies hematuria, Denies urinary frequency and Denies dysuria Musc Denies arthralgias, Denies muscle weakness, Denies numbness and Denies tingling Skin/Breast Denies nail changes and Denies rash Neuro Denies Abnormal speech present, Denies dizziness, Denies syncope, Denies frequent falls, Denies loss of vision, Denies memory loss, Denies numbness, Denies tingling and Denies weakness Psych Denies depression and Denies memory loss Endo Denies fatigue and Denies palpitations Aller/Immun Denies wheezing Physical Exam Vital Signs: Last Vital Signs Pulse 79 08/10/23 08:43 BP 90/64 08/10/23 08:43 BMI result Body Mass Index 25.8 Const General: comfortable and no acute distress Orientation/consciousness: patient oriented x3 HEENT Other: Unremarkable Head: Yes normal to inspection Neck Neck: Yes normal visual inspection Chest Chest palpation & inspection: normal inspection of the chest Resp Auscultation: clear to auscultation bilaterally Cardio Palpation: normal PMI Heart sounds: S1 normal heart sound present, S2 normal heart sound present, no gallops, no murmurs and no rubs GI Palpation (GI): Soft to palpation Back/Spine/Pelvis Other: unremarkable Skin General skin exam: no rashes or lesions noted Neuro General: patient oriented x3 Speech: No Abnormal speech present Extrem General: Yes normal to inspection Psych Mental Status: mental status grossly normal Office Procedures EKG Details: EKG with sinus rhythm at 79/Min; can not exclude old lateral infarct could be from body habitus and lead placement; [place] [id number], Complete Assessment & Plan Assessment & Plan (1) Precordial chest pain: Code(s): R07.2 - Precordial pain Plan Atypical chest pain but difficult to assess. Will obtain echocardiogram and stress perfusion imaging study. Plan based on findings. Orders: Orders NM cardiolite stress test Today R07.2 - Precordial pain CA echo transthoracic complete Today I25.10 - Atherosclerotic heart disease of [place] coronary artery without angina pectoris, R07.2 - Precordial pain CA lexiscan stress w carine Today I20.9 - Angina pectoris, unspecified, R07.2 - Precordial pain Coding Level of Care Code New Pt Level 4 (73462) Diagnoses Precordial chest pain R07.2 CPT Codes EKG - CPT: 96176-[id number], Complete ([id number])
== END 2023-08-10 09:00 | disposition home or self-care (01) ==
PROVIDERS: PCP Family Medicine; Visit Provider Internal Medicine
DX: R07.2 Precordial pain (principal); R94.31 Abnormal electrocardiogram [ECG] [EKG]
CPT/HCPCS: 93010; 99204

== ENCOUNTER → 2023-08-10 07:53 | Outpatient (BNVA) | payer OTHER, SELFPAY | PROVIDERS: PCP Family Medicine; Visit Provider Internal Medicine | DX: R07.2 Precordial pain (principal) | CPT/HCPCS: 93005; 99202 ==

== ENCOUNTER 2023-08-15 15:45 | Outpatient (REF) | payer OTHER, SELFPAY ==
[2023-08-15 17:33] LABS: MANUAL DIFF FLAG NO
[2023-08-15 17:37] LABS: Basophils Percent Auto 0.1 % (0-2); Eosinophils Absolute Auto 0.1 X10*3/uL (0.0-0.4); Eosinophils Percent Auto 1.5 % (0-4); Hematocrit 41.6 % (37.0-47.0); Hemoglobin 13.5 g/dl (12.0-16.0); Imm Gran Abs Auto 0.02 X10*3/uL (0.00-0.03); Imm Gran Pct Auto 0.3 % (0.0-0.4); Lymphocytes Absolute Auto 2.5 X10*3/uL (1.2-4.9); Lymphocytes Percent Auto 33.5 % (20-40); Mean Corpuscular HGB Conc 32.5 g/dl (31.0-35.0); Mean Corpuscular Hemoglobin 28.1 pg (27.0-33.0); Mean Corpuscular Volume 86.7 fL (80.0-98.0); Mean Platelet Volume 9.3 fL (9.4-12.3); Monocytes Absolute Auto 0.5 X10*3/uL (0.1-1.2); Monocytes Percent Auto 6.8 % (2-11); Neutrophils Absolute Auto 4.2 x10*3/uL (2.0-8.3); Neutrophils Percent Auto 57.8 % (45-73); Platelet Count 386 X10*3/uL (160-400); Red Cell Distribution Width 14.1 % (11.0-16.0); White Blood Count 7.3 X10*3/uL (4.8-10.8)
[2023-08-15 17:55] LABS: Alanine Aminotransferase 15 U/L (0-31); Albumin Level 4.3 g/dL (3.5-5.0); Alkaline Phosphatase 84 U/L (39-117); Anion Gap 12 (12-20); Aspartate Amino Transferase 15 U/L (5-31); Bilirubin Total 0.2 mg/dL (0.0-1.0); Blood Urea Nitrogen 18 mg/dL (9-16); Calcium 9.8 mg/dL (8.4-10.2); Carbon Dioxide 28 mmol/L (22-29); Chloride 105 mmol/L (96-108); Estimated Glomerular Filt Rate > 60; Glucose Random 95 mg/dL (60-115); Sodium 141 mmol/L (135-145); Total Protein 7.1 g/dL (6.5-8.0)
[2023-08-15 18:11] LABS: Ferritin 13 ng/mL (10-250)
== END 2023-08-15 15:46 | disposition home or self-care (01) ==
LOC: HO.HHCL 15:45
PROVIDERS: Visit Provider Family Medicine
DX: Z01.818 Encounter for other preprocedural examination (principal); D64.9 Anemia, unspecified
CPT/HCPCS: 36415; 80053; 82728; 85025

== ENCOUNTER 2023-08-18 08:27 | Outpatient (REF) | payer OTHER, SELFPAY ==
--- NOTE | ~2023-08-18 | FL_ITS ---
EXAMINATION: FL BARIUM SWALLOW CLINICAL INFORMATION: Reflux, burning in region of hypopharynx, hoarseness of voice episodic. Globus sensation. COMPARISON: 04/26/2018. TECHNIQUE: Fluoroscopic air contrast upper GI examination was performed utilizing standard techniques with thin and thick barium and effervescent granules. Numerous spot images were obtained. Several fluoroscopic image hold cine sequences were also obtained. FINDINGS: Lateral cine images of the oropharynx and hypopharynx demonstrate normal swallow mechanism with normal epiglottic inversion and soft palate elevation. Trace laryngeal penetration on thick barium noted, without extending to the true cords or subglottic region. This cleared with cough. Persistent pooling of barium was evident in the vallecula and piriform sinuses. No nasopharyngeal reflux present. Hypopharyngeal structures appear normal without evidence of mass or diverticulum. Mild cricopharyngeal achalasia present, episodic. Dual and single contrast images of the esophagus demonstrate normal caliber, contour, and mucosal pattern. No evidence of stricture, mass, or ulcerations identified. Primary peristalsis was essentially normal, however numerous tertiary contractions were present which were nonpropulsive. There is a small type I hiatus hernia. Mild gastroesophageal reflux was noted during the exam to the level of the jose. Dual contrast and single contrast images of the stomach demonstrated small clustered foci of contrast pooling without surrounding halo of edema within the gastric body, most likely mucosal aphthous ulcers. Mildly thickened folds in the antrum noted, suggesting gastritis. Contrast freely passed into the gastric antrum and duodenal bulb without delay. Single and air-contrast images of the duodenal bulb demonstrate no abnormality. The duodenal sweep has a normal appearance, course, and mucosal fold appearance. The imaged proximal jejunum has a normal fold pattern and caliber. FLUOROSCOPY TIME: 5 minutes 1 second Number of Spot Images: 11 Number of cines obtained: 13 DOSE AREA PRODUCT: 2398 uGy-m2 (microgray-meter squared) FL/FL barium swallow IMPRESSION: 1. Mild gastroesophageal reflux to the level of the jose. 2. Small type I hiatus hernia at the GE junction. 3. Small aphthous type ulcerations suggested in the gastric body, with thickened gastric rugal folds in the antrum, all suggesting gastritis. 4. Mild secondary and tertiary esophageal dysmotility. 5. Trace laryngeal penetration of thick barium, without extension to the true cords or subglottic region.
== END 2023-08-18 08:28 | disposition home or self-care (01) ==
LOC: HO.XRAY 08:27
PROVIDERS: PCP Family Medicine; Visit Provider Family Medicine
DX: K21.9 Gastro-esophageal reflux disease without esophagitis (principal)
CPT/HCPCS: 74220

== ENCOUNTER → 2023-08-18 08:29 | Outpatient (BNV) | payer OTHER, SELFPAY | PROVIDERS: PCP Family Medicine; Visit Provider Radiology Diagnostic Radiology | DX: K21.9 Gastro-esophageal reflux disease without esophagitis (principal) | CPT/HCPCS: 74221 ==

== ENCOUNTER 2023-08-23 12:47 | Outpatient (REF) | payer OTHER, SELFPAY ==
--- NOTE | ~2023-08-23 | MM_ITS ---
EXAMINATION: BONE DENSITOMETRY CLINICAL INDICATION: Encounter for screening for osteoporosis. History of steroid use. COMPARISON: Previous BD dated 11/13/2010 and baseline BD dated 11/08/2008. TECHNIQUE: Using a [employer] DXA System (software version: 13.1) manufactured by [employer], dual-energy x-ray absorptiometry was performed of the lumbar spine and left hip. The images are of good technical quality. Summary results are attached. FINDINGS: LEFT FEMUR, NECK: Current: BMD 0.859 g/cm2, Z-score 0.1, T-score -1.3, osteopenia. Prior: BMD 0.907 g/cm2. Baseline: BMD 0.903 g/cm2. LEFT FEMUR, TOTAL: Current: BMD 0.808 g/cm2, Z-score -0.4, T-score -1.6, osteopenia, 11.2% decrease from previous, 12.9% decrease from baseline (<5% change is not significant). Prior: BMD 0.910 g/cm2. Baseline: BMD 0.928 g/cm2. AP SPINE L1-L4: Current: BMD 0.830 g/cm2, Z-score -1.7, T-score -2.9, osteoporosis, 9.4% decrease from previous, 9.1% decrease from baseline (<5% change is not significant). Prior: BMD 0.916 g/cm2. Baseline: BMD 0.913 g/cm2. IDENTIFIED RISK FACTORS: Early menopause, secondary osteoporosis, parental hip fracture, glucocorticoids. HISTORY OF FRACTURE: None listed. MEDICATIONS: Calcium supplements or multivitamin, vitamin D. MM/XR DEXA axial skeleton IMPRESSION: 1. DIAGNOSIS: Osteoporosis based on the lowest T-score value of -2.9 in the lumbar spine applying World Health Organization criteria. 2. 10-YEAR FRACTURE RISK PREDICTION, FRAX: According to the guidelines, FRAX calculation should only be performed on patients in the osteopenia bone density category. Therefore, FRAX was not performed on this patient. 3. Treatment Recommendations: NOF guidelines recommend consideration for treatment in postmenopausal women and men age 50 and older presenting with the following: -A hip or vertebral (clinical or morphometric) fracture. -T-score less than or equal to -2.5 at the femoral neck or spine after appropriate evaluation to exclude secondary causes. -Low bone mass at the hip or spine and a 10-year fracture probability by FRAX of greater than or equal to 3% for hip fracture or greater than or equal to 20% for major osteoporotic fracture based on the [place] adapted WHO algorithm. 4. Other Recommendations: All treatment decisions require clinical judgment and consideration of individual patient factors, including patient preferences, comorbidities, previous drug use, risk factors not captured in the FRAX model (e.g. frailty, falls, vitamin D deficiency, increased bone turnover, interval significant decline in bone density) and possible under or overestimation of fracture risk by FRAX. Additional medical evaluation for secondary cause of low bone mineral density may be appropriate. FUTURE SCAN RECOMMENDATION: People with diagnosed cases of osteoporosis or at high risk for fracture should have regular bone mineral density tests. For patients eligible for Medicare, routine testing is allowed once every 2 years. The testing frequency can be increased to one year for patients who have rapidly progressing disease, those who are receiving or discontinuing medical therapy to restore bone mass, or have additional risk factors.
== END 2023-08-23 12:48 | disposition home or self-care (01) ==
LOC: HO.MAMMO 12:47
PROVIDERS: PCP Family Medicine; Visit Provider Family Medicine
DX: Z13.820 Encounter for screening for osteoporosis (principal); E28.319 Asymptomatic premature menopause; Z92.241 Personal history of systemic steroid therapy
CPT/HCPCS: 77080

== ENCOUNTER → 2023-08-24 08:43 | Outpatient (REF) | payer OTHER, SELFPAY ==
--- NOTE | 2023-08-24 08:46 | CA_ITS ---
Transthoracic Echocardiogram Patient (Last, First, Middle): Maida Mitchell I Gender: Female Date of : 1955 Age: 68 Procedure Date: 08/24/2023 Procedure Type: Transthoracic Echocardiogram Location: OP Height: 172.72 cm Weight: 77.11 kg BSA: 1.91 m2 Heart Rate: bpm BP: 100 / 60 mmHg Financial Services Rep: TO Referring MD: Marcellus Calzada MD Airport Ramp Attendant: Clarence Crowley MD Symptoms: I25.10 - Atherosclerotic heart disease of [place] coronary artery without... Study Quality: Fair/Contrast ECG Rhythm: Sinus Conclusions: - essentially normal study Findings Procedure Information Contrast agent, definity, is being given per protocol without apparent complications. The study quality is limited by the patients inability to tolerate the test. Left Ventricle Normal left ventricular size, thickness, and systolic function. The visually estimated ejection fraction is between 55-60%. Spectral Doppler is indicative of a normal filling pattern. Right Ventricle Normal right ventricular cavity size and systolic function. Atria Both atria are normal in size. Interatrial shunt cannot be excluded. Aortic Valve The aortic valve structure and function is likely normal. There is no aortic valve stenosis. There is no aortic valve regurgitation. Mitral Valve Normal mitral valve structure and function. There is trace mitral valve regurgitation. There is no mitral valve stenosis. Pulmonic Valve The pulmonic valve is likely normal. Tricuspid Valve Normal tricuspid valve structure. Tricuspid regurgitation envelope is inadequate for calculation of right ventricular systolic pressure. Normal right atrial pressure. Great Vessels All visible segments of the aorta are normal in size. The pulmonary artery was not well visualized. Venous The inferior vena cava is normal in size and collapses greater than 50% with inspiration. Pericardium/Pleural There is no evidence of pericardial effusion. Measurements 2D Linear Measurements IVSd: 0.83 0.6-0.9/0.6-1.0 cm LVIDd: 4.22 3.9-5.3/4.2-5.9 cm LVIDd Index: 2.21 2.4-3.2/2.2-3.1 cm/m2 LVIDs: 2.95 2.0-3.6 cm LVPWd: 0.87 0.7-1.1 cm LA Diam: 2.60 2.7-3.8/3.0-4.0 cm LAIDs Index: 1.36 1.5-2.3 cm/m2 LV Mass: 137.07 67-162/88-224 g LV Mass Index: 71.76 43-95/49-115 g/m2 LVOT Diam: 2.10 3.0+(-)1.3 cm 2D Systolic Function EF 4C: 54.30 >55% EF 2C: 56.00 >55% EF BiP: 55.00 >55% Mitral Valve MV Pk E: 0.45 MV PK A: 0.47 MV Decel Time: 215.00 E/A: 1.00 E'Lateral: 6.64 E'Medial: 6.74 E/E' Med: 6.70 E/E' Lat: 6.80 PHT: 63.00 MVA PHT: 3.49 Decel [place]: 2.09 Aortic Valve AoV Pk Y[place]: 1.48 AoV Mn Yaron: 0.90 AoV VTI: 0.28 AoV Pk Grad: 9.00 Aov Mn Grad: 4.00 GIOVANNI Cont.VTI: 3.42 LVOT LVOT Pk Yaron: 1.26 LVOT Mn Yaron: 0.84 LVOT VTI: 0.28 LVOT Pk Grad: 6.00 LVOT Mn Grad: 3.00 LVOT Diam: 2.10 LVOT Area: 3.46 Diastolic Function MV Pk E: 0.45 MV Pk A: 0.47 E/A: 1.00 E'Medial: 6.74 E/E' Med: 6.70 E' Laterial: 6.64 E/E' Lat: 6.80 Right Ventricle TAPSE (mm): 17.50 TVS' Yaron: 10.90 Tricuspid Valve TR Pk Yaron: 1.86 TR Pk Grad: 14.00 Great Vessels Aorta Sinus of Valsalva: 3.61 2.0-3.5 cm Ao Asc: 3.40 2.1-3.4 cm Ao Arch: 2.80 Updated in Other Vendor System with Status of Final Clarence rCowley MD electronically signed on 08/24/2023 11:42:40 AM with status of Final
== END ==
LOC: HO.CARD 08:43
PROVIDERS: PCP Family Medicine; Visit Provider Internal Medicine
DX: R07.2 Precordial pain (principal); I20.9 Angina pectoris, unspecified
CPT/HCPCS: 93306; Q9957

== ENCOUNTER → 2023-08-24 08:46 | Outpatient (BNV) | payer OTHER, SELFPAY | PROVIDERS: PCP Family Medicine; Visit Provider Internal Medicine Cardiovascular Disease | DX: I25.10 Atherosclerotic heart disease of native coronary artery without angina pectoris (principal) | CPT/HCPCS: 93306 ==

== ENCOUNTER → 2023-08-31 09:06 | Outpatient (REF) | payer OTHER, SELFPAY ==
--- NOTE | ~2023-08-31 | NM_ITS ---
Myocardial perfusion study Indication: Precordial chest pain to evaluate for myocardial ischemia Technique: The patient was brought in for a Lexiscan perfusion study on 08/31/2023. Patient performed low-level exercise and was injected 0.4 mg of Lexiscan intravenously. Within a minute of injection, 25 mCi of sestamibi was given intravenously. Images were obtained using the SPECT gamma camera interlaced with the gating device. Images were obtained in supine position. Resting perfusion study was could not be performed as patient responded for callback in scheduling appointment. Images were obtained with and without CT attenuation. Total DLP 47 mGy-cm Images were processed with the software and compared side to side in short axis, horizontal long axis and vertical long axis views. Findings: The stress perfusion study showed showed normal uptake of radiotracer in all segments of LV myocardium with mildly reduced basal inferoseptal. Attenuation corrected images show mildly reduced uptake in the apex of the LV myocardium.. The gated study shows normal LV systolic function with calculated LVEF of 68%. LV cavity is normal size. The gated study shows normal systolic wall thickening and contraction of segments. Resting study was not performed due to patient noncompliance The findings are consistent with likely normal myocardial perfusion. NM/NM cardiolite stress test Impression: 1. Myocardial perfusion imaging study shows likely normal perfusion 2. Gated LVEF is 68% 3. Transient ischemic dilatation not present EKG nondiagnostic for ischemia
--- NOTE | 2023-08-31 09:12 | CA_ITS ---
Acquisition Time: 2023-08-31 09:49:59 Total Exercise Time: 00:02:00 Test Indications: CHEST PAIN Medications: SEE H Protocol: LEXISCAN Max HR: 125 BPM 83% of Pred: 150 BPM Max BP: 118/060 mmHG Max Work Load: 1.0 METS Pharmacoligical stress test with Lexiscan injetion while sitting and kicking her legs, without anginal symptoms, with isolated PACs, with normotensive repsonse to injection, with niondiagnoisitic EKGs. Aminophylline 75mg IVP given to reverse Lexiscan. Nuclear images pending. Test reviewed with Dr. Crowley Referred By: Marcellus Calzada Overread By: Nikki Minor
== END ==
LOC: HO.CARD 09:06
PROVIDERS: PCP Family Medicine; Visit Provider Internal Medicine
DX: R07.2 Precordial pain (principal); I20.9 Angina pectoris, unspecified
CPT/HCPCS: 78452; 93017; A9500; J0280; J2785

== ENCOUNTER → 2023-08-31 09:12 | Outpatient (BNV) | payer OTHER, SELFPAY | PROVIDERS: PCP Family Medicine; Visit Provider Nurse Practitioner | DX: R07.2 Precordial pain (principal) | CPT/HCPCS: 78451; 93016; 93018 ==

== ENCOUNTER 2023-09-01 09:10 | Outpatient (AMB) | payer OTHER, SELFPAY ==
--- NOTE | 2023-09-01 09:12 | MHC.OFFVIS ---
Intake Intake Visit Reasons: Preop LT TKA 09/06/23 NE Intake Note: Juno 68 year old female presents today for a preoperative LT TKA on 09/06/23 NE. Patient would like to cancel her surgery due to a family emergency back in [place]. However she would like to know when can she schedule her surgery. Allergies vancomycin [VANCOMYCIN] Allergy (Severe, Verified 09/01/23 09:21) REDNESS,RASH,SWELLING Tetanus & Diphtheria Tox,Adult Allergy (Severe, Uncoded 08/10/23 17:01) FEVER,DIFF.BREATHING HPI Preop LT TKA 09/06/23 NE HPI Details 68-year-old female, who is Afghan speaking, presents in the office today for his/her preoperative history and physical exam prior to a left total knee arthroplasty to be performed on 09/06/[address] Moustapha Frost. The patient reports in the office today that she would like to cancel her surgery due to a family emergency in [place]. She would like to know when she can reschedule it. [facility] Medical History Bronchitis History of revision of total replacement of right knee joint Lumbar radiculopathy Osteoarthritis GERD (gastroesophageal reflux disease) Small bowel motility disorder COPD (chronic obstructive pulmonary disease) Leukocytosis COPD exacerbation Anxiety Allergic rhinitis (~12/11/20) Surgical History History of ear surgery Hx of colonoscopy History of right knee joint replacement History of esophagogastroduodenoscopy (EGD) Family History Father Diabetes Mother Diabetes Osteoporosis HTN (hypertension) Sister Pancreas cancer Social History Household Members: None Housing: Apartment Are you a primary pet care technician to a significant other at home: No Do you presently have visiting nurse or other home services: 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 Review of Systems Const All systems reviewed & are unremarkable except as noted in HPI and below Physical Exam Const General: no acute distress, alert and awake Orientation/consciousness: patient oriented x3 HEENT Head: Yes normocephalic and Yes atraumatic Eyes EOM: EOMs intact bilaterally Resp Effort & Inspection: normal respiratory effort and able to speak in complete sentences Cardio Jugular venous distension: no JVD Skin General skin exam: turgor normal Rashes: no rashes Neuro General: patient oriented x3 Extrem Other: Left Knee: Lateral tenderness to palpation Moderate effusion Psych Appearance: grossly normal Affect: normal affect Attitude: cooperative Assessment & Plan Assessment & Plan (1) Osteoarthritis of left knee: Code(s): M17.12 - Unilateral primary osteoarthritis, left knee (2) Complex tear of lateral meniscus of left knee: Code(s): S83.272A - Complex tear of lateral meniscus, current injury, left knee, initial encounter (3) Effusion, left knee: Code(s): M25.462 - Effusion, left knee (4) Complaints of total body pain: Code(s): R52 - Pain, unspecified (5) Lumbar radiculopathy: Code(s): M54.16 - Radiculopathy, lumbar region (6) History of total right knee replacement: Comment: 2011 Code(s): Z96.651 - Presence of right artificial knee joint Plan Ms. Mitchell is a 68-year-old female, who is Afghan speaking, presents in the office today for his/her preoperative history and physical exam prior to a left total knee arthroplasty to be performed on 09/06/[address] Moustapha Frost. The patient reports in the office today that she would like to cancel her surgery due to a family emergency in [place]. She would like to know when she can reschedule it. The patient is looking to postpone her surgery at this time stating she has a family emergency with her mother and brother being hospitalized in [place] and she is going to tend to her family. I did give her my card and she will reach out to the office when she is ready to reschedule. Follow up will be when the patient calls to reschedule, or sooner if needed. Patient Instructions: Scribed by Angelique Perez medical staff physician, for Courtney Quintana PA-C on 09/01/2023 at 9:13 am, EST. Coding Level of Care Code Est Pt Level 3 (23649) Diagnoses Osteoarthritis of left knee M17.12 Complex tear of lateral meniscus of left knee S83.272A Effusion, left knee M25.462 Complaints of total body pain R52 Lumbar radiculopathy M54.16 History of total right knee replacement Z96.651
== END 2023-09-01 09:30 | disposition home or self-care (01) ==
PROVIDERS: PCP Family Medicine; Visit Provider Physician Assistant
DX: M17.12 Unilateral primary osteoarthritis, left knee (principal); S83.272A Complex tear of lateral meniscus, current injury, left knee, initial encounter; M25.462 Effusion, left knee; M54.16 Radiculopathy, lumbar region; Z96.651 Presence of right artificial knee joint
CPT/HCPCS: 99213

== ENCOUNTER → 2023-09-01 09:10 | Outpatient (BNVA) | payer OTHER, SELFPAY | PROVIDERS: PCP Family Medicine; Visit Provider Physician Assistant | DX: Z47.1 Aftercare following joint replacement surgery (principal); Z96.651 Presence of right artificial knee joint; M17.12 Unilateral primary osteoarthritis, left knee; M25.462 Effusion, left knee; M54.16 Radiculopathy, lumbar region; R52 Pain, unspecified | CPT/HCPCS: 99212 ==

== ENCOUNTER 2023-10-18 12:40 | Outpatient (AMB) | payer OTHER, SELFPAY ==
[2023-10-18 12:47] VITALS: BP 110/60; PULSE 79; BMI 24.6
--- NOTE | 2023-10-18 12:47 | A.OFFVIS_ITS ---
Intake Vital Signs 10/18/23 12:47 Height 5 ft 8 in Weight 161 lb 13.109 oz BMI 24.6 BP 110/60 Blood Pressure Location Lt brachial Position Sitting Pulse 79 Intake Visit Reasons: f/u after testing Intake Note: FOLLOW UP AFTER TESTING Web Portal Developer Required: Yes Web Portal Developer Name: [facility] [id number] Allergies vancomycin [VANCOMYCIN] Allergy (Severe, Verified 09/01/23 09:21) REDNESS,RASH,SWELLING Tetanus & Diphtheria Tox,Adult Allergy (Severe, Uncoded 08/10/23 17:01) FEVER,DIFF.BREATHING HPI HPI Comments History of Present Illness Details 68-year-old female presents today for a follow-up after testing. She had seen Dr. Calzada for consultation for chest pains. Certified senior software developer used. She reports she has been doing well other than she thinks she is getting sick with a cold. She denies chest pains for a few months. She denies shortness of breath, palpitations, or edema. She reports she has been feeling anxious but she is a very anxious person. [facility] Medical History Bronchitis History of revision of total replacement of right knee joint Lumbar radiculopathy Osteoarthritis GERD (gastroesophageal reflux disease) Small bowel motility disorder COPD (chronic obstructive pulmonary disease) Leukocytosis COPD exacerbation Anxiety Allergic rhinitis (~12/11/20) Surgical History History of ear surgery Hx of colonoscopy History of right knee joint replacement History of esophagogastroduodenoscopy (EGD) Family History Father Diabetes Mother Diabetes Osteoporosis HTN (hypertension) Sister Pancreas cancer Social History Household Members: None Housing: Apartment Are you a primary customer care representative to a significant other at home: No Do you presently have visiting nurse or other home services: Yes (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) Alcohol intake: never Patient Tobacco Use Status: Former Tobacco user Quit Date: teenage years- minimal use Tobacco use type: Cigarette Advance Directives Date on File: 11/28/20 service: No Current occupational status: unemployed and disabled 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 Review of Systems Const Denies weakness ENT Denies dizziness Card Denies chest pain, Denies chest pain with activity, Denies syncope, Denies rapid heart rate, Denies pedal edema, Denies edema, Denies leg edema, Denies lightheadedness, Denies palpitations, Denies dyspnea, Denies dyspnea on exertion and Denies orthopnea Resp Denies cough, Denies dyspnea and Denies dyspnea on exertion GI Denies hematochezia and Denies change in stool character Musc Denies abnormal gait, Denies muscle cramps, Denies muscle weakness, Denies numbness, Denies radiating pain into limb and Denies tingling Neuro Denies abnormal gait, Denies dizziness, Denies syncope, Denies numbness, Denies tingling and Denies weakness Endo Denies palpitations Physical Exam Vital Signs: Last Vital Signs Pulse 79 10/18/23 12:47 BP 110/60 10/18/23 12:47 BMI result Body Mass Index 24.6 Const General: healthy appearing and no acute distress Orientation/consciousness: patient oriented x3 HEENT Head: Yes normal to inspection Eyes General: appearance normal, both eyes and all related structures Neck Neck: Yes normal visual inspection Chest Chest palpation & inspection: normal inspection of the chest Resp Effort & Inspection: normal respiratory effort Auscultation: clear to auscultation bilaterally Cardio Jugular venous distension: no JVD Palpation: normal PMI Rate: regular rate Rhythm: regular rhythm Heart sounds: S1 normal heart sound present, S2 normal heart sound present, no click, no gallops, no murmurs and no rubs GI Inspection: Yes normal to inspection Palpation (GI): Soft to palpation Skin General skin exam: no rashes or lesions noted Neuro General: patient oriented x3 Extrem General: Yes normal to inspection Psych Appearance: grossly normal Results Reviewed Results Reviewed: Echo: Conclusions: - essentially normal study Nuclear stress test: NM/NM cardiolite stress test Impression: 1. Myocardial perfusion imaging study shows likely normal perfusion 2. Gated LVEF is 68% 3. Transient ischemic dilatation not present Assessment & Plan Assessment & Plan (1) Precordial chest pain: Code(s): R07.2 - Precordial pain Plan Atypical chest pains with no reoccurrence in the last few months per patient. Echocardiogram showed EF of 55-60% and was essentially a normal study. Nuclear imaging showed normal perfusion. Discussed stress mitigation techniques. Heart healthy lifestyle discussed. Will have her follow-up in 6 months regarding symptoms or sooner if needed. Coding Level of Care Code Est Pt Level 3 (72245) Diagnoses Precordial chest pain R07.2
== END 2023-10-18 13:11 | disposition home or self-care (01) ==
PROVIDERS: PCP Family Medicine; Visit Provider Nurse Practitioner
DX: R07.2 Precordial pain (principal)
CPT/HCPCS: 99213

== ENCOUNTER → 2023-10-18 12:40 | Outpatient (BNVA) | payer OTHER, SELFPAY | PROVIDERS: PCP Family Medicine; Visit Provider Nurse Practitioner | DX: R07.2 Precordial pain (principal) | CPT/HCPCS: 99212 ==

== ENCOUNTER 2023-11-03 13:49 | Outpatient (REF) | payer OTHER, SELFPAY ==
[2023-11-03 16:45] LABS: Iron 49 mcg/dL (30-160); Percent Iron Saturation 15 % (15-50); Total Iron Binding Capacity 334 mcg/dL (228-428); Unsaturated Iron Binding 285 ug/dL
== END 2023-11-03 13:50 | disposition home or self-care (01) ==
LOC: HO.HHCL 13:49
PROVIDERS: Visit Provider Family Medicine
DX: D64.9 Anemia, unspecified (principal)
CPT/HCPCS: 36415; 83540

== ENCOUNTER 2023-11-09 16:32 | Outpatient (REF) | payer OTHER, SELFPAY ==
[2023-11-11 15:25] LABS: Alphahydroxymidazolam,GCMS Ur NEGATIVE; Alphahydroxytriazolam, GCMS Ur NEGATIVE; Alprazolam, GCMS Urine NEGATIVE; Flurazepam Metabolite,GCMS Ur NEGATIVE; Lorazepam GCMS Urine NEGATIVE; Nordiazepam, GCMS Urine NEGATIVE; Oxazepam, GCMS Urine NEGATIVE; Temazepam, GCMS Urine NEGATIVE
== END 2023-11-09 16:33 | disposition home or self-care (01) ==
LOC: HO.HHCLNP 16:32
PROVIDERS: Visit Provider Family Medicine
DX: F41.9 Anxiety disorder, unspecified (principal)
CPT/HCPCS: 80346

== ENCOUNTER 2023-11-16 08:41 | Outpatient (AMB) | payer OTHER, SELFPAY ==
[2023-11-16 08:54] VITALS: BP 116/60; PULSE 80; BMI 25.0
--- NOTE | 2023-11-16 08:54 | A.OFFVIS_ITS ---
Vital Signs 11/16/23 08:54 Height 5 ft 8 in Weight 164 lb 7.437 oz BMI 25.0 BP 116/60 Blood Pressure Location Rt brachial Position Sitting Pulse 80 Intake Visit Reasons: Follow up Intake Note: Maida returns to in office follow up of GERD. CC: Patient reports doing well today but states a few days ago she was having an upset stomach. Denies other GI concerns today. Substance Abuse Specialist Required: No Allergies vancomycin [VANCOMYCIN] Allergy (Severe, Verified 11/16/23 08:58) REDNESS,RASH,SWELLING Tetanus & Diphtheria Tox,Adult Allergy (Severe, Uncoded 08/10/23 17:01) FEVER,DIFF.BREATHING HPI HPI Follow up: Details: Romanian #[id number] She says that over the past month she has had an upset stomach. She says that one of her psych meds was in creased, but she also admits that she is not consistently taking the reglan, because I have so many medications. As she also c/o nausea with the dyspepsia, I educate her ON WHY SHE IS BEING PRESCRIBED THE REGLAN and the necessity of taking it all the time because of her suspected functional dyspepsia and to keep things moving.. I do not intend for her to use it as a p.r.n. as it is not going to be very effective in the situation. With this note I would like to be put her pill boxes as a scheduled medication and I have sent a note to the pharmacy asking this happen. Assessment & Plan (1) GERD (gastroesophageal reflux disease): Code(s): K21.9 - Gastro-esophageal reflux disease without esophagitis (2) Chronic idiopathic constipation: Code(s): K59.04 - Chronic idiopathic constipation (3) Gastric pain: Code(s): R10.9 - Unspecified abdominal pain Orders: Orders EGD with Brown - GI Use Only Today R10.9 - Unspecified abdominal pain Medications: Changed From metoclopramide HCl (Reglan) PLEASE PUT THIS IS A PILL BOX FORMAT SCHEDULED QID 10 mg PO QID 120 tabs 6RF K59.9 - Functional intestinal disorder, unspecified To metoclopramide HCl (Reglan) PLEASE PUT THIS IS A PILL BOX FORMAT SCHEDULED QID, second request please put this in the pill box scheduled qid 10 mg PO QID 120 tabs 6RF K59.9 - Functional intestinal disorder, unspecified EGD We decide to cancel as pt is now feeling well. BIOPSY TODAYS VISIT. [place] #[facility] She has been feeling well. We decied to cancel the EGD for now. She continues on omeprazole 20 mg twice a day, Reglan 10 mg 4 times a day, Linzess 290 micro g daily, famotidine at bedtime for breakthrough, Colace twice a day, and bisacodyl. She asks about a stool test that her sister had that came out positive. It sounds like Cologuard so I explain this to her as she was very nervous about this. ROV 6 mos. PFS Medical History (Updated 11/16/23 @ 15:46 by GLENIS Baez) Bronchitis Upper abdominal pain Leukocytosis COPD exacerbation Hypoxia Gastric pain Vaginal irritation Encounter for annual routine gynecological examination Bronchitis History of revision of total replacement of right knee joint Lumbar radiculopathy Osteoarthritis GERD (gastroesophageal reflux disease) Small bowel motility disorder COPD (chronic obstructive pulmonary disease) Anxiety Allergic rhinitis (~12/11/20) Surgical History (Updated 11/16/23 @ 15:46 by GLENIS Baez) History of right knee joint replacement History of total right knee replacement History of ear surgery Hx of colonoscopy History of esophagogastroduodenoscopy (EGD) Family History Father Diabetes Mother Diabetes Osteoporosis HTN (hypertension) Sister Pancreas cancer Social History Household Members: None Housing: Apartment Are you a primary home child care provider to a significant other at home: No Do you presently have visiting nurse or other home services: 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) Alcohol intake: never Patient Tobacco Use Status: Former Tobacco user Quit Date: teenage years- minimal use Tobacco use type: Cigarette Advance Directives Date on File: 11/28/20 service: No Current occupational status: unemployed and disabled 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 Review of Systems Const Details: glasses Denies fatigue, Denies fever(s), Denies night sweats, Denies poor appetite and Denies weight loss ENT Reports Normal hearing present, Denies dental pain, Denies dysphagia, Denies hearing loss, Denies mouth pain, Reports neck pain, Denies odynophagia, Denies throat swelling, Denies tongue swelling and Reports other (Dentition adequate) Card Reports no additional complaints Resp Reports no additional complaints GI Details: Denies abdominal pain, Denies melena, Reports bloating, Denies hematochezia, Reports constipation, Denies GI cramping, Denies dysphagia, Denies excessive flatus, Denies early satiety, Reports heartburn, Denies diarrhea, Denies nausea, Denies odynophagia, Denies vomiting and Denies hematemesis Musc Reports back pain, Reports myalgias, Reports arthralgias and Reports neck pain Skin/Breast Denies pruritus, Denies lesions, Denies rash and Denies jaundice Neuro Reports Normal hearing present and Denies Abnormal speech present Psych Reports anxiety Endo Denies fatigue Aller/Immun Denies throat swelling and Denies tongue swelling Physical Exam Vital Signs: Last Vital Signs Pulse 80 11/16/23 08:54 BP 116/60 11/16/23 08:54 BMI result Body Mass Index 25.0 Const General: cooperative, no acute distress, well developed and well groomed Nutritional Appearance: average body habitus and well nourished Orientation/consciousness: oriented to person, oriented to place and oriented to time Limitations: language barrier HEENT Head: Yes normocephalic and Yes atraumatic Eyes General: appearance normal, both eyes and all related structures Pupils: Equal, round and reactive pupils present Neck Neck: Yes normal visual inspection and Yes no lymphadenopathy Thyroid: Thyroid normal Resp Effort & Inspection: normal respiratory effort and able to speak in complete sentences Auscultation: clear to auscultation bilaterally Cardio Rate: regular rate Rhythm: regular rhythm Heart sounds: Normal, physiologic split S2 sound present Peripheral pulses: radial pulses present and posterior tibial pulses present GI Inspection: No distended and No Abdominal panniculus present Palpation (GI): Soft to palpation, nontender, no guarding, not rigid and No hepatosplenomegaly present Percussion: Yes normal to percussion Auscultation: normal bowel sounds Rectal Exam - Female: deferred Skin General skin exam: no rashes or lesions noted, turgor normal, skin not dry, no jaundice, No spider nevi and no striae Rashes: no rashes Nails: normal Neuro General: oriented to person, oriented to place and oriented to time Cranial nerves: Yes Equal, round and reactive pupils present and Yes Normal hearing present Speech: No Abnormal speech present Extrem General: Yes normal to inspection, No clubbing, No cyanosis and No edema Psych Appearance: grossly normal and well kempt Mental Status: mental status grossly normal Speech and movement: Normal speech and movement present Affect: normal affect Attitude: cooperative Thought process: Normal thought process present and not confabulating Thought content: Normal thought content present Insight: Limited insight present (Psych) Judgement: Limited judgement present (Psych) Assessment & Plan Assessment & Plan (1) Small bowel motility disorder: Code(s): K59.9 - Functional intestinal disorder, unspecified Category: Medical (2) GERD (gastroesophageal reflux disease): Code(s): K21.9 - Gastro-esophageal reflux disease without esophagitis Category: Medical (3) Chronic idiopathic constipation: Code(s): K59.04 - Chronic idiopathic constipation Category: Medical Plan [place] #[employer] Live She has been feeling well. We decied to cancel the EGD for now. She continues on omeprazole 20 mg twice a day, Reglan 10 mg 4 times a day, Linzess 290 micro g daily, famotidine at bedtime for breakthrough, Colace twice a day, and bis acodyl. She asks about a stool test that her sister had that came out positive. It sounds like Cologuard so I explain this to her as she was very nervous about this. ROV 6 mos. Medications: New omeprazole 20 mg PO BID 60 caps 6RF Refilled metoclopramide HCl (Reglan) PLEASE PUT THIS IS A PILL BOX FORMAT SCHEDULED QID, second request please put this in the pill box scheduled qid 10 mg PO QID 120 tabs 6RF K59.9 - Functional intestinal disorder, unspecified linaclotide (Linzess) PLEASE PUT IN MED BOX FORMAT 290 mcg PO QAM 30 caps 6RF 30 days K59.04 - Chronic idiopathic constipation famotidine 40 mg PO BEDTIME 30 tabs 6RF pantoprazole 40 mg PO BID 60 tabs 6RF K21.9 - Gastro-esophageal reflux disease without esophagitis docusate sodium 100 mg PO BID 60 caps 6RF Coding Level of Care Code Est Pt Level 3 (32979) Diagnoses Small bowel motility disorder K59.9 GERD (gastroesophageal reflux disease) K21.9 Chronic idiopathic constipation K59.04
== END 2023-11-16 09:29 | disposition home or self-care (01) ==
PROVIDERS: PCP Family Medicine; Visit Provider Nurse Practitioner
DX: K59.9 Functional intestinal disorder, unspecified (principal); K21.9 Gastro-esophageal reflux disease without esophagitis; K59.04 Chronic idiopathic constipation
CPT/HCPCS: 99213

== ENCOUNTER → 2023-11-16 08:41 | Outpatient (BNVA) | payer OTHER, SELFPAY | PROVIDERS: PCP Family Medicine; Visit Provider Nurse Practitioner | DX: K59.9 Functional intestinal disorder, unspecified (principal); K21.9 Gastro-esophageal reflux disease without esophagitis; K59.04 Chronic idiopathic constipation | CPT/HCPCS: 99212 ==

== ENCOUNTER 2023-11-23 10:36 | Outpatient (AMB) | payer OTHER, SELFPAY ==
[2023-11-23 11:03] VITALS: BP 110/78; PULSE 70; O2SAT 98; BMI 24.8
--- NOTE | 2023-11-23 11:03 | A.OFFVIS_ITS ---
Vital Signs 11/23/23 11:03 Height 5 ft 8 in Weight 163 lb BMI 24.8 BP 110/78 Blood Pressure Location Lt brachial Position Sitting Pulse 70 Pulse Source Pulse Oximeter Pulse Oximetry (%) 98 Oxygen Delivery Method Room Air Intake Visit Reasons: Asthma Intake Note: pt is here for follow up and states she is not feeling well, she is sensation in chest and a cough Assembler Insulator Required: Yes Assembler Insulator Name: [id number] Adolfo Allergies vancomycin [VANCOMYCIN] Allergy (Severe, Verified 11/23/23 11:21) REDNESS,RASH,SWELLING Tetanus & Diphtheria Tox,Adult Allergy (Severe, Uncoded 11/23/23 11:21) FEVER,DIFF.BREATHING Medication List - Last Reconciled 11/23/23 by Jared Langley MD acetaminophen (Tylenol Extra Strength) 500 mg PO Q6H PRN albuterol sulfate 90 mcg/actuation 2 puffs PO Q4H PRN albuterol sulfate 2.5 mg inhalation Q4H PRN alendronate 70 mg PO QWEEK azelastine 1 spray intranasal DAILY betamethasone, augmented 0.05 % 1 appl topical BID 7 days bisacodyl 10 mg (2 x 5 mg) PO BEDTIME calcium citrate-vitamin D3 200 mg-6.25 mcg (250 unit) ([place] Calcium-Vitamin D3) tabs PO calcium polycarbophil (Fiber-Lax) 625 mg PO DAILY cholecalciferol (vitamin D3) 50 mcg PO DAILY clonazepam 1 mg PO BID PRN cyanocobalamin (vitamin B-12) 1,000 mcg PO DAILY diclofenac sodium 1% (Aleve (diclofenac)) 4 grams topical QID docusate sodium 100 mg PO BID famotidine 40 mg PO BEDTIME fluticasone propion-salmeterol 250-50 mcg/dose 1 ea inhalation BID fluticasone propionate 50 mcg/actuation 2 sprays intranasal DAILY ibuprofen 400 mg PO Q6H PRN lamotrigine 75 mg PO BID linaclotide (Linzess) 290 mcg PO QAM 30 days loratadine 10 mg PO DAILY meclizine 25 mg PO TID PRN metoclopramide HCl (Reglan) 10 mg PO QID mirtazapine 15 mg PO BEDTIME multivit-iron sulf-folic acid 15 mg iron- 400 mcg (Tab-A-Aurea Multivitamin w- iron) 1 tab PO DAILY naproxen 500 mg PO BID PRN 10 days omeprazole 20 mg PO BID ondansetron 4 mg PO Q8H pantoprazole 40 mg PO BID ropinirole 0.25 mg PO BEDTIME sumatriptan succinate 100 mg PO Q2-4H PRN zafirlukast 20 mg PO BID Do you need a note to return to daycare/school/sports/work: No HPI HPI Asthma: Details: THIS 68 YEARS OLD INDONESIAN-SPEAKING FEMALE IS HERE FOR HER 6 MONTHS FOLLOW-UP. SHE IS BEING TREATED FOR CHRONIC ALLERGIC RHINITIS AND ASTHMA/COPD SYNDROME. IN ADDITION SHE DOES HAVE SIGNIFICANT ANXIETY SYNDROME. TODAY SHE IS COMPLAINING OF COUGH AND WHEN US DO WHEN IT DID IT START SHE SAY JUST THIS MORNING. AFTER THAT SHE STATED THAT SHE HAS BEEN SICK FOR ABOUT 2 WEEKS AND SHE WAS SEEN AT AN URGENT [facility]ARE CENTER AND PRESCRIBED ANTIBIOTIC WHICH SHE HAS JUST COMPLETED. SHE COMPLAINS THAT SHE GETS SOME BURNING SENSATION IN THE THROAT. OVERALL HER BREATHING HAS BEEN FAIRLY STABLE. [facility] Medical History Bronchitis Upper abdominal pain Leukocytosis COPD exacerbation Hypoxia Gastric pain Vaginal irritation Encounter for annual routine gynecological examination Bronchitis History of revision of total replacement of right knee joint Lumbar radiculopathy Osteoarthritis GERD (gastroesophageal reflux disease) Small bowel motility disorder COPD (chronic obstructive pulmonary disease) Anxiety Allergic rhinitis (~12/11/20) Surgical History History of right knee joint replacement History of total right knee replacement History of ear surgery Hx of colonoscopy History of esophagogastroduodenoscopy (EGD) Family History Father Diabetes Mother Diabetes Osteoporosis HTN (hypertension) Sister Pancreas cancer Social History Household Members: None Housing: Apartment Are you a primary pet care attendant to a significant other at home: No Do you presently have visiting nurse or 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) Alcohol intake: never Patient Tobacco Use Status: Former Tobacco user Quit Date: teenage years- minimal use Tobacco use type: Cigarette Advance Directives Date on File: 11/28/20 service: No Current occupational status: unemployed and disabled 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 Review of Systems Const All systems reviewed & are unremarkable except as noted in HPI and below Eyes Reports no additional complaints ENT Reports nasal congestion and Reports nasal discharge Card Denies chest pain, Denies irregular heart rhythm and Denies leg edema Resp Reports as per HPI GI Reports constipation Reports no additional complaints Musc Reports no additional complaints Skin/Breast Reports system reviewed and no additional complaints, except as documented Neuro Reports no additional complaints Psych Reports anxiety Physical Exam Vital Signs: Last Vital Signs Pulse 70 11/23/23 11:03 BP 110/78 11/23/23 11:03 Pulse Ox 98 11/23/23 11:03 Oxygen Delivery Method Room Air 11/23/23 11:03 BMI result Body Mass Index 24.8 Const General: comfortable, no acute distress, alert and awake Orientation/consciousness: patient oriented x3 HEENT Head: Yes normal to inspection General nose exam: No nasal polyps present, No nasal discharge present and Other nasal findings present (Mild chronic nasal congestion) Face and sinus: Yes sinuses nontender Mouth: oropharynx normal Throat: Yes posterior oropharynx normal Eyes General: appearance normal, both eyes and all related structures Neck Neck: Yes normal visual inspection, Yes no lymphadenopathy, Yes trachea midline and Yes no JVD Thyroid: Thyroid normal Chest Chest palpation & inspection: normal inspection of the chest, normal palpation of entire chest wall and no tenderness Resp Other: Percussion note is resonant, has good breath sounds on both sides. No audible wheezes rhonchi or crepitations. Cardio Palpation: normal PMI Rate: regular rate Rhythm: regular rhythm Heart sounds: no gallops and no murmurs Peripheral pulses: Peripheral pulses 2+ throughout GI Palpation (GI): Soft to palpation, nontender, No hepatosplenomegaly present and no masses Auscultation: normal bowel sounds Back/Spine/Pelvis Thoracic/Lumbar Spine: thoracic and lumbar spine normal to inspection Skin General skin exam: no rashes or lesions noted Neuro General: patient oriented x3 and no focal motor deficits Cranial nerves: Yes CN's II-XII intact bilaterally Extrem General: Yes normal to inspection, Yes no clubbing, cyanosis or edema and Yes no calf tenderness Psych Appearance: grossly normal and well kempt Speech and movement: Normal speech and movement present Affect: Anxious affect present Assessment & Plan Assessment & Plan (1) Allergic rhinitis: Onset Date: ~12/11/20 Comment: This is her chronic problem. Seems to be well controlled and stable at this time. T Code(s): J30.9 - Allergic rhinitis, unspecified Category: Medical Plan: TX: Flonase 2 spray each nostril daily, and Azelastin 1 spray each nostril b.i.d..prn (2) Anxiety: Comment: Patient is quite worried and concerned about her lung disease. She needs lot of reassurance which is provided. She understands fairly well. Code(s): F41.9 - Anxiety disorder, unspecified Category: Medical Plan: Reassured and explained that at present she does not have any acute disease process. Her symptoms are chronic and seem to be under control. (3) COPD (chronic obstructive pulmonary disease): Comment: Patient has very mild Asthma/Chronic obstructive pulmonary disease, which seems to be well controlled and stable at this time. Code(s): J44.9 - Chronic obstructive pulmonary disease, unspecified Category: Medical Plan: [place] Advair 250-50 1 inhalation b.i.d.. Ventolin HFA 2 puffs Q 4-6 hours only p.r.n.. Patient also has nebulizer at home , may use albuterol 0.63 mg, Q 4-6 hours only p.r.n.. Coding Level of Care Code Est Pt Level 3 (74714) Diagnoses Allergic rhinitis J30.9 Anxiety F41.9 COPD (chronic obstructive pulmonary disease) J44.9
== END 2023-11-23 11:18 | disposition home or self-care (01) ==
PROVIDERS: PCP Family Medicine; Visit Provider Internal Medicine
DX: J30.9 Allergic rhinitis, unspecified (principal); F41.9 Anxiety disorder, unspecified; J44.9 Chronic obstructive pulmonary disease, unspecified
CPT/HCPCS: 99213

== ENCOUNTER → 2023-11-23 10:36 | Outpatient (BNVA) | payer OTHER, SELFPAY | PROVIDERS: PCP Family Medicine; Visit Provider Internal Medicine | DX: J44.9 Chronic obstructive pulmonary disease, unspecified (principal); J30.9 Allergic rhinitis, unspecified; F41.9 Anxiety disorder, unspecified | CPT/HCPCS: 99212 ==

== ENCOUNTER 2023-12-13 14:48 | Outpatient (REF) | payer OTHER, SELFPAY ==
[2023-12-13 16:07] LABS: MANUAL DIFF FLAG NO
[2023-12-13 16:14] LABS: Basophils Percent Auto 0.3 % (0-2); Eosinophils Absolute Auto 0.2 X10*3/uL (0.0-0.4); Eosinophils Percent Auto 2.1 % (0-4); Hemoglobin 12.3 g/dl (12.0-16.0); Imm Gran Abs Auto 0.02 X10*3/uL (0.00-0.03); Imm Gran Pct Auto 0.3 % (0.0-0.4); Lymphocytes Absolute Auto 2.1 X10*3/uL (1.2-4.9); Lymphocytes Percent Auto 29.5 % (20-40); Mean Corpuscular HGB Conc 31.5 g/dl (31.0-35.0); Mean Corpuscular Hemoglobin 27.6 pg (27.0-33.0); Mean Corpuscular Volume 87.4 fL (80.0-98.0); Mean Platelet Volume 9.5 fL (9.4-12.3); Monocytes Absolute Auto 0.6 X10*3/uL (0.1-1.2); Monocytes Percent Auto 8.7 % (2-11); Neutrophils Absolute Auto 4.2 x10*3/uL (2.0-8.3); Neutrophils Percent Auto 59.1 % (45-73); Platelet Count 355 X10*3/uL (160-400); Red Blood Count 4.46 X10*6/uL (4.20-5.50); Red Cell Distribution Width 14.3 % (11.0-16.0); White Blood Count 7.1 X10*3/uL (4.8-10.8)
[2023-12-13 16:27] LABS: Anion Gap 12 (12-20); Blood Urea Nitrogen 20 mg/dL (9-16); Calcium 9.3 mg/dL (8.4-10.2); Carbon Dioxide 27 mmol/L (22-29); Chloride 104 mmol/L (96-108); Estimated Glomerular Filt Rate > 60; Glucose Random 86 mg/dL (60-115); Sodium 139 mmol/L (135-145)
== END 2023-12-13 14:49 | disposition home or self-care (01) ==
LOC: HO.HHCL 14:48
PROVIDERS: Visit Provider Internal Medicine
DX: Z01.818 Encounter for other preprocedural examination (principal)
CPT/HCPCS: 36415; 80048; 85025

== ENCOUNTER 2023-12-15 11:14 | Outpatient (AMB) | payer OTHER, SELFPAY ==
--- NOTE | 2023-12-15 06:03 | MHC.OFFVIS ---
Vital Signs 12/15/23 11:33 Height 5 ft 8 in Weight 163 lb BMI 24.8 Intake Visit Reasons: L TKA w/NE 12/20/23 Intake Note: Juno 68 year old Norwegian speaking female who presents today for a preoperative visit of left TKA on 12/20/23 NE. Pain management agreement reviewed and signed. Patient was unable to verify her medications at todays visit, stating she does not recall however she is taking acetaminophen and naproxen for her pain. Speech And Language Assistant Name: Rukhsana ID#[id number] Allergies vancomycin [VANCOMYCIN] Allergy (Severe, Verified 12/15/23 11:30) REDNESS,RASH,SWELLING Tetanus & Diphtheria Tox,Adult Allergy (Severe, Uncoded 12/15/23 11:30) FEVER,DIFF.BREATHING Medication List - Last Reconciled 12/15/23 by Alexis Ceja PA-C acetaminophen (Tylenol Extra Strength) 500 mg PO Q6H PRN albuterol sulfate 90 mcg/actuation 2 puffs PO Q4H PRN albuterol sulfate 2.5 mg inhalation Q4H PRN alendronate 70 mg PO QWEEK azelastine 1 spray intranasal DAILY betamethasone, augmented 0.05 % 1 appl topical BID 7 days bisacodyl 10 mg (2 x 5 mg) PO BEDTIME calcium citrate-vitamin D3 200 mg-6.25 mcg (250 unit) ([place] Calcium-Vitamin D3) tabs PO calcium polycarbophil (Fiber-Lax) 625 mg PO DAILY cholecalciferol (vitamin D3) 50 mcg PO DAILY clonazepam 1 mg PO BID PRN cyanocobalamin (vitamin B-12) 1,000 mcg PO DAILY diclofenac sodium 1% (Aleve (diclofenac)) 4 grams topical QID docusate sodium 100 mg PO BID famotidine 40 mg PO BEDTIME fluticasone propion-salmeterol 250-50 mcg/dose 1 ea inhalation BID fluticasone propionate 50 mcg/actuation 2 sprays intranasal DAILY ibuprofen 400 mg PO Q6H PRN lamotrigine 75 mg PO BID linaclotide (Linzess) 290 mcg PO QAM 30 days loratadine 10 mg PO DAILY meclizine 25 mg PO TID PRN metoclopramide HCl (Reglan) 10 mg PO QID mirtazapine 15 mg PO BEDTIME multivit-iron sulf-folic acid 15 mg iron- 400 mcg (Tab-A-Aurea Multivitamin w-iron) 1 tab PO DAILY naproxen 500 mg PO BID PRN 10 days omeprazole 20 mg PO BID ondansetron 4 mg PO Q8H pantoprazole 40 mg PO BID ropinirole 0.25 mg PO BEDTIME sumatriptan succinate 100 mg PO Q2-4H PRN walker Folding Front wheeled walker zafirlukast 20 mg PO BID HPI Comments Details: Ms Mitchell presents to the office today for preop visit. She is scheduled for left total knee arthroplasty with Dr. Frost. She continues to have ongoing pain and difficulty with ambulation in the left knee, which is affecting her quality of life; therefore, she has elected to move forward with surgery. [facility] Medical History Bronchitis Upper abdominal pain Leukocytosis COPD exacerbation Hypoxia Gastric pain Vaginal irritation Encounter for annual routine gynecological examination Bronchitis History of revision of total replacement of right knee joint Lumbar radiculopathy Osteoarthritis GERD (gastroesophageal reflux disease) Small bowel motility disorder COPD (chronic obstructive pulmonary disease) Anxiety Allergic rhinitis (~12/11/20) Surgical History History of right knee joint replacement History of total right knee replacement History of ear surgery Hx of colonoscopy History of esophagogastroduodenoscopy (EGD) Family History Father Diabetes Mother Diabetes Osteoporosis HTN (hypertension) Sister Pancreas cancer Social History Household Members: None Housing: Apartment Are you a primary client care coordinator to a significant other at home: No Do you presently have visiting nurse 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) Alcohol intake: never Patient Tobacco Use Status: Former Tobacco user Tobacco use type: Cigarette Advance Directives Date on File: 11/28/20 service: No Current occupational status: unemployed and disabled 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 Review of Systems Const All systems reviewed & are unremarkable except as noted in HPI and below Physical Exam Vital Signs: BMI result Body Mass Index 24.8 Const General: cooperative and no acute distress Orientation/consciousness: patient oriented x3 HEENT Head: Yes normal to inspection, Yes normocephalic and Yes atraumatic Eyes General: appearance normal, both eyes and all related structures Neck Neck: Yes normal visual inspection and Yes no lymphadenopathy Resp Effort & Inspection: normal respiratory effort and able to speak in complete sentences Cardio Rate: regular rate Peripheral pulses: Peripheral pulses 2+ throughout GI Inspection: Yes normal to inspection Palpation (GI): Soft to palpation Skin General skin exam: no rashes or lesions noted Neuro General: patient oriented x3 Extrem Other: Right knee surgical scar present. She has no redness, abrasions were joint effusion. She does have some diffuse tenderness over the medial and lateral joint line. She has full range of motion. No ligamentous laxity. Calf supple nontender. Left knee normal to inspection no joint effusion. She has full range of motion with crepitus. Medial joint line tenderness. Calf supple nontender. Psych Appearance: grossly normal Mental Status: mental status grossly normal Assessment & Plan Assessment & Plan (1) Osteoarthritis of left knee: Code(s): M17.12 - Unilateral primary osteoarthritis, left knee Category: Medical Plan I discussed in detail the procedure and what to expect pre and post operatively. We discussed the risks, benefits and alternatives to the surgery as well as the rehabilitation course. The risks; which include, but are not limited to infection, bleeding, nerve injury, ongoing pain, swelling, and stiffness, perioperative risk of injury to bones and soft tissues, and blood clots. I?ve answered all questions and with their understanding they have consented to move forward with Left total knee arthroplasty with Dr. Frost Orders: Orders PT Evaluation and Treatment Today Z96.652 - Presence of left artificial knee joint Medications: New walker Folding Front wheeled walker 1 ea 0RF duration 99 days M17.12 - Unilateral primary osteoarthritis, left knee Patient Instructions: Scribed for Alexis Ceja PA-C, by Rajendra Maciel medical chief technician, on 12/15/2023 at 11:30 AM EST.? I, Alexis Ceja PA-C, have personally reviewed and agree with the information entered by the scribe. Coding Level of Care Code Est Pt Level 3 (84906) Diagnoses Osteoarthritis of left knee M17.12
[2023-12-15 11:33] VITALS: BMI 24.8
== END 2023-12-15 13:32 | disposition home or self-care (01) ==
PROVIDERS: PCP Family Medicine; Visit Provider Physician Assistant
DX: M17.12 Unilateral primary osteoarthritis, left knee (principal)
CPT/HCPCS: 99213

== ENCOUNTER → 2023-12-15 11:14 | Outpatient (BNVA) | payer OTHER, SELFPAY | PROVIDERS: PCP Family Medicine; Visit Provider Physician Assistant | DX: M17.12 Unilateral primary osteoarthritis, left knee (principal) | CPT/HCPCS: 99212 ==

== ENCOUNTER 2023-12-20 07:21 | Inpatient (IN) | payer OTHER, SELFPAY ==
[2023-08-26 11:59] VITALS: BP 111/60; PULSE 99; RESP 20; O2SAT 96; BMI 25.8
--- NOTE | 2023-08-26 12:28 | HO.ANESPROP2 ---
[facility] Active Problems Active Problems: All Active Problems (Updated 08/25/23 @ 10:17 by Viv Barlow RN) Precordial chest pain (Acute) Encounter for annual routine gynecological examination (Acute) Complex tear of lateral meniscus of left knee (Acute) Gastric pain (Acute) Vaginal itching (Acute) Vaginal irritation (Acute) Osteoarthritis of left hand (Acute) Osteoarthritis of carpometacarpal joint of right thumb (Acute) Osteoarthritis of right hand (Acute) Complaints of total body pain (Acute) Lumbar radiculopathy (Acute) Small bowel motility disorder (Acute) Osteoarthritis of left knee (Acute) History of total right knee replacement (Acute) Upper abdominal pain (Acute) Hypoxia (Acute) GERD (gastroesophageal reflux disease) (Acute) Chronic idiopathic constipation (Acute) History of right knee joint replacement (Acute) Bronchitis (Acute) COPD (chronic obstructive pulmonary disease) (Acute) Leukocytosis (Acute) COPD exacerbation (Acute) Anxiety (Acute) Allergic rhinitis (Acute ~12/11/20) Past Medical History Medical History Bronchitis History of revision of total replacement of right knee joint Lumbar radiculopathy Osteoarthritis GERD (gastroesophageal reflux disease) Small bowel motility disorder COPD (chronic obstructive pulmonary disease) Leukocytosis COPD exacerbation Anxiety Allergic rhinitis (~12/11/20) Family History Family History Father Diabetes Mother Diabetes Osteoporosis HTN (hypertension) Sister Pancreas cancer Surgical History Surgical History History of ear surgery Hx of colonoscopy History of right knee joint replacement History of esophagogastroduodenoscopy (EGD) History of Problems with Anesthesia: No Social History Social History Household Members: None Housing: Apartment Are you a primary veterinarian laboratory animal care to a significant other at home: No Do you presently have visiting nurse or other home services: Yes (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 Uncoded 08/10/23 17:01 Tox,Adult BREATHING Home Medications Medication Instructions Recorded Confirmed Last Taken Type cholecalciferol (vitamin D3) 50 50 mcg PO DAILY 05/21/20 08/25/23 Unknown History mcg (2,000 unit) tablet cyanocobalamin (vitamin B-12) 1,000 mcg PO DAILY 05/21/20 08/25/23 Unknown History 1,000 mcg tablet loratadine 10 mg tablet 10 mg PO DAILY 05/21/20 08/25/23 Unknown History zafirlukast 20 mg tablet 20 mg PO BID 05/21/20 08/25/23 Unknown History albuterol sulfate 90 mcg/actuation 2 puff PO Q4H PRN dyspnea 11/28/20 08/25/23 Unknown History aerosol inhaler ropinirole 0.25 mg tablet 0.25 mg PO BEDTIME 02/09/22 08/25/23 Unknown History albuterol sulfate 2.5 mg/3 mL 2.5 mg inhalation Q4H PRN 03/02/22 08/25/23 Unknown History (0.083 %) solution for nebulization Shortness Of Breath Or Wheezing fluticasone 250 mcg-salmeterol 50 1 ea inhalation BID 03/02/22 08/25/23 Unknown History mcg/dose blistr powdr for inhalation sumatriptan succinate 100 mg tablet 100 mg PO Q2-4H PRN Migraine 03/10/22 08/25/23 Unknown History Headache fluticasone propionate 50 2 spray intranasal DAILY 03/31/22 08/25/23 Unknown History mcg/actuation nasal spray,suspension ibuprofen 400 mg tablet 400 mg PO Q6H PRN fever 10/21/22 08/25/23 Unknown History clonazepam 1 mg tablet 1 mg PO BID PRN Anxiety 11/25/22 08/25/23 Unknown History lamotrigine 150 mg tablet 75 mg PO BID 02/04/23 08/25/23 Unknown History meclizine 25 mg tablet 25 mg PO TID PRN dizziness 02/04/23 08/25/23 Unknown History azelastine 137 mcg (0.1 %) nasal 1 spray intranasal DAILY 03/31/23 08/25/23 Unknown History spray aerosol mirtazapine 7.5 mg tablet 7.5 mg PO BEDTIME 03/31/23 08/25/23 Unknown History multivitamin-iron sulfate 15 1 tab PO DAILY 03/31/23 08/25/23 Unknown History mg-folic acid 400 mcg tablet (Tab-A-Aurea Multivitamin w-iron) ondansetron 4 mg disintegrating 4 mg PO Q8H 05/12/23 08/25/23 Unknown History tablet mirtazapine 15 mg tablet 15 mg PO BEDTIME 05/16/23 08/25/23 Unknown History calcium polycarbophil 625 mg 625 mg PO DAILY 05/18/23 08/25/23 Unknown History tablet (Fiber-Lax) Exam Height,Weight and Vital Signs: Height 5 ft 8 in Weight 77.111 kg Last Vital Signs Pulse 99 08/26/23 11:59 Resp 20 08/26/23 11:59 BP 111/60 08/26/23 11:59 Pulse Ox 96 08/26/23 11:59 O2 Del Method Room Air 08/26/23 11:59 Pertinent Lab Results Pertinent Lab Results: awaiting stress test results Airway Mallampati Class: II TM Dist: >3cm Neck ROM: Full Partial: Lower Loose/Missing/Broken Teeth: Yes and Lower Heart: RRR Lungs: CTA Assessment and Plan Assessment Anesthesia Assessment: Anesthesia Plan Discussed and Chart Reviewed Final Anesthetic Review History of Problems with Anesthesia: No ASA Class: III Final Preanesthetic Review: Meds/Allgs Chart Reviewed, Consent Obtained/Reviewed and Anes Risks/Benef Reviewed Patient Risk: Intermediate Procedure Risk: Low Anesthetic Plan Anesthetic Plan: Spinal and Regional Block Disposition: Standard PACU
[2023-08-26 15:25] LABS: MRSA Nasal PCR NEGATIVE (Negative); SA Nasal PCR NEGATIVE (Negative)
--- NOTE | 2023-12-16 12:11 | HO.ANESPROP2 ---
Documented by User: Lizeth Mcdaniels NP 12/19/23 10:33 HPI - Anesthesia Eval Consult details Narrative: 68yo F for Left Knee Replacement Total PAT with Dr Gotti 08/2023. Resched to 12/2023 d/t pt request. Medically optimized per PCP 12/2023 Cardiac [place] [facility] [place] Follows for hx atypical chest pain. ECHO and stress wnl. Reports below. [place] [facility] [place] for mild asthma/copd. Per 11/2023 office visit well controlled and stable PMFSH Active Problems Active Problems: All Active Problems Precordial chest pain (Acute) Complex tear of lateral meniscus of left knee (Acute) Vaginal itching (Acute) Osteoarthritis of left hand (Acute) Osteoarthritis of carpometacarpal joint of right thumb (Acute) Osteoarthritis of right hand (Acute) Complaints of total body pain (Acute) Lumbar radiculopathy (Acute) Small bowel motility disorder (Acute) Osteoarthritis of left knee (Acute) GERD (gastroesophageal reflux disease) (Acute) Chronic idiopathic constipation (Acute) COPD (chronic obstructive pulmonary disease) (Acute) Anxiety (Acute) Allergic rhinitis (Acute ~12/11/20) Past Medical History Medical History Bronchitis Upper abdominal pain Leukocytosis COPD exacerbation Hypoxia Gastric pain Vaginal irritation Encounter for annual routine gynecological examination Bronchitis History of revision of total replacement of right knee joint Lumbar radiculopathy Osteoarthritis GERD (gastroesophageal reflux disease) Small bowel motility disorder COPD (chronic obstructive pulmonary disease) Anxiety Allergic rhinitis (~12/11/20) Family History Family History Father Diabetes Mother Diabetes Osteoporosis HTN (hypertension) Sister Pancreas cancer Surgical History Surgical History History of right knee joint replacement History of total right knee replacement History of ear surgery Hx of colonoscopy History of esophagogastroduodenoscopy (EGD) History of Problems with Anesthesia: No Social History Social History Household Members: None Housing: Apartment Are you a primary healthcare social worker to a significant other at home: No Do you presently have 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 Uncoded 12/20/23 07:36 Tox,Adult BREATHING Home Medications ?Medication ?Instructions ?Recorded ?Confirmed ?Last Taken ?Type cholecalciferol (vitamin D3) 50 50 mcg PO DAILY 05/21/20 12/20/23 Unknown History mcg (2,000 unit) tablet cyanocobalamin (vitamin B-12) 1,000 mcg PO DAILY 05/21/20 12/20/23 Unknown History 1,000 mcg tablet loratadine 10 mg tablet 10 mg PO DAILY 05/21/20 12/20/23 Unknown History zafirlukast 20 mg tablet 20 mg PO BID 05/21/20 12/20/23 Unknown History albuterol sulfate 90 mcg/actuation 2 puff PO Q4H PRN dyspnea 11/28/20 12/20/23 Unknown History aerosol inhaler ropinirole 0.25 mg tablet 0.25 mg PO BEDTIME 02/09/22 12/20/23 Unknown History albuterol sulfate 2.5 mg/3 mL 2.5 mg inhalation Q4H PRN 03/02/22 12/20/23 Unknown History (0.083 %) solution for nebulization Shortness Of Breath Or Wheezing fluticasone 250 mcg-salmeterol 50 1 ea inhalation BID 03/02/22 12/20/23 12/20/23 06:00 History mcg/dose blistr powdr for inhalation sumatriptan succinate 100 mg tablet 100 mg PO Q2-4H PRN Migraine 03/10/22 12/20/23 Unknown History Headache fluticasone propionate 50 2 spray intranasal DAILY 03/31/22 12/20/23 Unknown History mcg/actuation nasal spray,suspension ibuprofen 400 mg tablet 400 mg PO Q6H PRN fever 10/21/22 12/20/23 Unknown History clonazepam 1 mg tablet 1 mg PO BID PRN Anxiety 11/25/22 12/20/23 Unknown History lamotrigine 150 mg tablet 75 mg PO BID 02/04/23 12/20/23 Unknown History meclizine 25 mg tablet 25 mg PO TID PRN dizziness 02/04/23 12/20/23 Unknown History azelastine 137 mcg (0.1 %) nasal 1 spray intranasal DAILY 03/31/23 12/20/23 Unknown History spray aerosol multivitamin-iron sulfate 15 1 tab PO DAILY 03/31/23 12/20/23 Unknown History mg-folic acid 400 mcg tablet (Tab-A-Aurea Multivitamin w-iron) ondansetron 4 mg disintegrating 4 mg PO Q8H 05/12/23 12/20/23 Unknown History tablet mirtazapine 15 mg tablet 15 mg PO BEDTIME 05/16/23 12/20/23 Unknown History calcium polycarbophil 625 mg 625 mg PO DAILY 05/18/23 12/20/23 Unknown History tablet (Fiber-Lax) alendronate 70 mg tablet 70 mg PO QWEEK 11/16/23 12/20/23 Unknown History calcium citrate 200 mg tab PO 11/16/23 12/15/23 Unknown History calcium-vitamin D3 6.25 mcg (250 unit) tablet ([place] Calcium-Vitamin D3) Exam Height,Weight and Vital Signs: Height 5 ft 8 in Weight 77.111 kg Last Vital Signs Pulse 99 08/26/23 11:59 Resp 20 08/26/23 11:59 BP 111/60 08/26/23 11:59 Pulse Ox 96 08/26/23 11:59 O2 Del Method Room Air 08/26/23 11:59 Pertinent Lab Results Pertinent Lab Results: Laboratory Tests 08/26/23 12:20 Nasal Screen MRSA (PCR) NEGATIVE Nasal S. aureus Screen NEGATIVE Nasal MRSA/S.aureus Interp SEE NOTE Laboratory Tests 12/13/23 14:50 WBC 7.1 Hgb 12.3 Hct 39.0 Plt Count 355 Sodium 139 Potassium 4.0 Chloride 104 Carbon Dioxide 27 BUN 20 H Creatinine 0.75 Narrative Narrative: EKG 07/2023 sinus rhythm at 79/Min; can not exclude old lateral infarct could be from body habitus and lead placement; normal MT and corrected QT. ECHO 08/2023 Conclusions: - essentially normal study Findings Procedure Information Contrast agent, definity, is being given per protocol without apparent complications. The study quality is limited by the patients inability to tolerate the test. Left Ventricle Normal left ventricular size, thickness, and systolic function. The visually estimated ejection fraction is between 55-60%. Spectral Doppler is indicative of a normal filling pattern. NM cardiolite stress test 09/2023 Impression: 1. Myocardial perfusion imaging study shows likely normal perfusion 2. Gated LVEF is 68% 3. Transient ischemic dilatation not present EKG nondiagnostic for ischemia Assessment and Plan Assessment Anesthesia Assessment: Chart Reviewed Final Anesthetic Review History of Problems with Anesthesia: No Documented by User: Stephany Amos MD 12/20/23 07:58 PMFSH Past Medical History Medical History Bronchitis Upper abdominal pain Leukocytosis COPD exacerbation Hypoxia Gastric pain Vaginal irritation Encounter for annual routine gynecological examination Bronchitis History of revision of total replacement of right knee joint Lumbar radiculopathy Osteoarthritis GERD (gastroesophageal reflux disease) Small bowel motility disorder COPD (chronic obstructive pulmonary disease) Anxiety Allergic rhinitis (~12/11/20) Family History Family History Father Diabetes Mother Diabetes Osteoporosis HTN (hypertension) Sister Pancreas cancer Family history of problems with anesthesia: No Surgical History Surgical History History of right knee joint replacement History of total right knee replacement History of ear surgery Hx of colonoscopy History of esophagogastroduodenoscopy (EGD) Social History Social History Household Members: None Housing: Apartment Are you a primary healthcare social worker to a significant other at home: No Do you presently have 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 Uncoded 12/20/23 07:36 Tox,Adult BREATHING Home Medications ?Medication ?Instructions ?Recorded ?Confirmed ?Last Taken ?Type cholecalciferol (vitamin D3) 50 50 mcg PO DAILY 05/21/20 12/20/23 Unknown History mcg (2,000 unit) tablet cyanocobalamin (vitamin B-12) 1,000 mcg PO DAILY 05/21/20 12/20/23 Unknown History 1,000 mcg tablet loratadine 10 mg tablet 10 mg PO DAILY 05/21/20 12/20/23 Unknown History zafirlukast 20 mg tablet 20 mg PO BID 05/21/20 12/20/23 Unknown History albuterol sulfate 90 mcg/actuation 2 puff PO Q4H PRN dyspnea 11/28/20 12/20/23 Unknown History aerosol inhaler ropinirole 0.25 mg tablet 0.25 mg PO BEDTIME 02/09/22 12/20/23 Unknown History albuterol sulfate 2.5 mg/3 mL 2.5 mg inhalation Q4H PRN 03/02/22 12/20/23 Unknown History (0.083 %) solution for nebulization Shortness Of Breath Or Wheezing fluticasone 250 mcg-salmeterol 50 1 ea inhalation BID 03/02/22 12/20/23 12/20/23 06:00 History mcg/dose blistr powdr for inhalation sumatriptan succinate 100 mg tablet 100 mg PO Q2-4H PRN Migraine 03/10/22 12/20/23 Unknown History Headache fluticasone propionate 50 2 spray intranasal DAILY 03/31/22 12/20/23 Unknown History mcg/actuation nasal spray,suspension ibuprofen 400 mg tablet 400 mg PO Q6H PRN fever 10/21/22 12/20/23 Unknown History clonazepam 1 mg tablet 1 mg PO BID PRN Anxiety 11/25/22 12/20/23 Unknown History lamotrigine 150 mg tablet 75 mg PO BID 02/04/23 12/20/23 Unknown History meclizine 25 mg tablet 25 mg PO TID PRN dizziness 02/04/23 12/20/23 Unknown History azelastine 137 mcg (0.1 %) nasal 1 spray intranasal DAILY 03/31/23 12/20/23 Unknown History spray aerosol multivitamin-iron sulfate 15 1 tab PO DAILY 03/31/23 12/20/23 Unknown History mg-folic acid 400 mcg tablet (Tab-A-Aurea Multivitamin w-iron) ondansetron 4 mg disintegrating 4 mg PO Q8H 05/12/23 12/20/23 Unknown History tablet mirtazapine 15 mg tablet 15 mg PO BEDTIME 05/16/23 12/20/23 Unknown History calcium polycarbophil 625 mg 625 mg PO DAILY 05/18/23 12/20/23 Unknown History tablet (Fiber-Lax) alendronate 70 mg tablet 70 mg PO QWEEK 11/16/23 12/20/23 Unknown History calcium citrate 200 mg tab PO 11/16/23 12/15/23 Unknown History calcium-vitamin D3 6.25 mcg (250 unit) tablet ([place] Calcium-Vitamin D3) Exam Airway Mallampati Class: II TM Dist: >3cm Neck ROM: Full Heart: rrr Lungs: cta Assessment and Plan Assessment Anesthesia Assessment: Anesthesia Plan Discussed Final Anesthetic Review Family History of Problems with Anesthesia: No NPO: Yes ASA Class: III Final Preanesthetic Review: No Changes in Pt Med Stat, Meds/Allgs Chart Reviewed, Consent Obtained/Reviewed and Anes Risks/Benef Reviewed Patient Risk: Intermediate Procedure Risk: Intermediate Anesthetic Plan Anesthetic Plan: Spinal and Regional Block Disposition: Standard PACU
[2023-12-20] VITALS (14 sets, daily range): BP systolic 80–140; BP diastolic 40–72; PULSE 49–77; RESP 12–16; TEMP 36.1–36.3; O2SAT 96–100; BMI 26.4
--- NOTE | ~2023-12-20 | XR_ITS ---
EXAMINATION: XR KNEE, LEFT CLINICAL INFORMATION: Left knee total arthroplasty COMPARISON: None available. TECHNIQUE: AP and lateral views of the left knee. FINDINGS: Prosthetic components of the total knee arthroplasty are appropriately aligned. No periprosthetic fracture. Gas from recent surgery is present in the joint and surrounding soft tissues. A joint effusion is present. XR/XR knee LT 2V IMPRESSION: Appropriate alignment of the left total knee arthroplasty.
--- NOTE | 2023-12-20 07:25 | MHC.SHP ---
Pre-Procedural Eval Section A - 24 Hr Update-Section A only Date of Service: 12/20/23 The patient is an INPATIENT: No Changes since office visit: No Cold of Flu in the past 2 weeks, No New Medical Problems, No Changes in Medication and No Patient answered all questions The patient has been examined within 24 hours of the surgical procedure. The History & Physical has been completed within 30 days and I have reviewed it.: Yes Section B - Complete if H&P > 30 days Chief Complaint: LT TKA Allergies: Allergies Allergy/AdvReac Type Severity Reaction Status Date / Time vancomycin [VANCOMYCIN] Allergy Severe REDNESS,ANDI Verified 12/15/23 11:30 H,SWELLING Tetanus & Diphtheria Allergy Severe FEVER,DIFF. Uncoded 12/15/23 11:30 Tox,Adult BREATHING Plan I have reviewed the history and physical and performed a pertinent physical examination on my patient. No changes have occurred unless specified. Time Spent With Patient Time: Total time managing care of this patient today ____ minutes.
--- OUTSIDE RECORDS SUMMARY | 2023-12-20 07:25 | XMS_ITS | Continuity of Care Document ---
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 Role Phone Amelia Montalvo DO Primary Care Physician [phone] Encounter [facility] [place] Date(s): 05/03/19 - 08/31/19 [facility] [address], [address], [address] [place] [address]- [facility] Attending Physician: Tanisha Parnell NP Admitting Physician: Tanisha Parnell NP Allergies, Adverse Reactions, Alerts Substance Reaction Severity Status vancomycin Active Tetanus Toxoid Adsorbed 1 shaking Ac tive 1When little per (who says pt's mom told him this) Medications Accolate 20 mg oral tablet 1 tablet = 20 mg, By Mouth, 2 times a day, 0 Refills, Maintenance, 07/19/19 11:57:00 EST Start Date: 07/19/19 Status: Ordered albuterol 0.083% inhalation solution 3 mL = 2.5 mg, Inhalation, Every 6 hours, # 120 each, 0 Refills, Maintenance, 07/19/19 11:57:00 EST, Solution Start Date: 07/19/19 Status: Ordered Centrum Adults By Mouth, Daily, 0 Refills, Maintenance, 07/19/19 11:56:00 EST Start Date: 07/19/19 Status: Ordered Citalopram = 30 mg, By Mouth, Daily, 0 Refills, Maintenance, 09/15/16 9:48:52 Start Date: 09/15/16 Status: Ordered clonazepam 2 mg oral tablet 1 tablet = 2 mg, By Mouth, 3 times a day, 0 Refills, Maintenance Start Date: 03/01/13 Status: Ordered fluticasone 50 mcg/inh nasal spray 0 Refills, Maintenance, 01/22/15 10:15:27 Start Date: 01/22/15 Status: Ordered loratadine 10 mg oral capsule 1 capsule = 10 mg, By Mouth, Daily, # 10 capsule, 0 Refills, Maintenance, Capsule Start Date: 03/01/13 Status: Ordered Meclizine By Mouth, 3 times a day, 0 Refills, Maintenance, 07/19/19 11:56:00 EST Start Date: 07/19/19 Status: Ordered [place]-3 oral capsule 0 Refills, Maintenance, 07/19/19 11:55:00 EST Start Date: 07/19/19 Status: Ordered ProAir HFA 2 puffs, Inhalation, 4 times a day, 0 Refills, Maintenance, 08/30/14 10:12:59 Start Date: 08/30/14 Status: Ordered SUMAtriptan 100 mg oral tablet 1 tablet = 100 mg, By Mouth, Once, PRN for migraine headache, # 9 tablet, 0 Refills, Maintenance, 09/15/16 9:49:53, Tablet Start Date: 09/15/16 Status: Ordered Vitamin B-12 1000 mcg oral tablet 1 tablet = 1,000 mcg, By Mouth, Daily, 0 Refills, Maintenance, 02/27/15 11:43:49 Start Date: 02/27/15 Status: Ordered Vitamin D3 1000 intl units oral capsule 1 capsule = 1,000 International_Units, By Mouth, Daily, 0 Refills, Maintenance, 02/27/15 11:43:23 Start Date: 02/27/15 Status: Ordered Voltaren 1% topical gel 1 application, Topically, 4 times a day, not to exceed 8 grams/day/single joint of upper extremities, # 100 Gm, 0 Refills, Maintenance, 07/19/19 11:55:00 EST, Gel, [facility], 1 application Topically 4 times a day,Instr:not to... Start Date: 07/19/19 Status: Ordered Problem List Condition Effective Dates Status Health Status Inform ant Allergic rhinitis(Confirmed) Active Anxiety(Confirmed) Active Arthritis(Confirmed) Active Asthma(Confirmed) Active Atypical chest pain(Confirmed) Active Chronic low back pain(Confirmed) Active Chronic pain syndrome(Confirmed) Active Constipation(Confirmed) Active Exertional dyspnea(Confirmed) Active GERD (gastroesophageal reflu x disease)(Confirmed) Active H/O: breast problem(Confirmed) 1 Active Italian speaking patient(Confirmed) Active Mastodynia(Confirmed) 2 07/11/97 Active Migraine(Confirmed) Active Vitamin D deficiency(Confirmed) Active 1nipple itch 2Pt seen regularly for bilateral mastalgia. Various strategies trialled with minimal relief Social History Social History Type Response Smoking Status Never smoker entered on: 11/02/16 Sex
--- OUTSIDE RECORDS SUMMARY | 2023-12-20 07:25 | XMS_ITS | Continuity of Care Document ---
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 Phone Amelia Montalvo DO Primary Care Physician [place] [facility] [place](s): 11/08/19 - 03/01/[address] [address]- [facility] Attending Physician: Danita Corrales NP Admitting Physician: Danita Corrales NP Referring Physician: Danita Corrales NP Allergies, Adverse Reactions, Alerts Substance Reaction [...] EST, Solution Start Date: 07/19/19 Status: Ordered Aripiprazole Refills 0, Maintenance, 01/09/20 8:20:00 EDT Start Date: 01/09/20 Status: Ordered busPIRone 5 mg oral tablet 5 mg, 1, tablet, By Mouth, 2 times a day, Refills 0, Maintenance, 01/09/20 8:20:00 EDT Start Date: 01/09/20 Status: Ordered Centrum Adults By Mouth, Daily, 0 Refills, Maintenance, 07/19/19 11:56:00 EST Start Date: 07/19/19 Status: Ordered Clonazepam By Mouth, 3 times a day, 0 Refills, Maintenance, 01/09/20 9:21:00 EDT Start Date: 01/09/20 Status: Ordered Compro 25 mg rectal suppository 1 supp = 25 mg, Rectally, Once, 0 Refills, Maintenance, 01/09/20 9:21:00 EDT Start Date: 01/09/20 Status: Ordered fluticasone 50 mcg/inh nasal spray 0 Refills, Maintenance, 01/22/15 10:15:27 Start Date: 01/22/15 Status: Ordered metoclopramide 5 mg oral tablet 1 tablet = 5 mg, By Mouth, 3 times a day before meals and bedtime, 0 Refills, Maintenance, 208:21:00 EDT Start Date: 01/09/20 Status: Ordered Nortriptyline By Mouth, 0 Refills, Maintenance, 01/09/20 8:21:00 EDT Start Date: 01/09/20 Status: Ordered [place]-3 oral capsule 0 Refills, Maintenance, 07/19/19 11:55:00 EST Start Date: 07/19/19 Status: Ordered Pantoprazole Daily, 0 Refills, Maintenance, 01/09/20 8:22:00 EDT Start Date: 01/09/20 Status: Ordered Sumatriptan Once, 0 Refills, Maintenance, 01/09/20 9:21:00 EDT Start Date: 01/09/20 Status: Ordered Ventolin 90 mcg Inhaler Inhalation, Every 6 hours, Refills 0, Maintenance, 01/09/20 9:22:00 EDT Start Date: 01/09/20 Status: Ordered Vitamin B-12 1000 mcg oral tablet 1 tablet = 1,000 mcg, By Mouth, Daily, 0 Refills, Maintenance, 02/27/15 11:43:49 Start Date: 02/27/15 Status: Ordered Vitamin D3 1000 intl units oral capsule 1 capsule = 1,000 International_Units, By Mouth, Daily, 0 Refills, Maintenance, 02/27/15 11:43:23 Start Date: 02/27/15 Status: Ordered Problem List Condition Effective Dates Status Health Status Inform ant Allergic rhinitis(Confirmed) Active Anxiety(Confirmed) Active Arthritis(Confirmed) Active Asthma(Confirmed) Active Atypical chest pain(Confirmed) Active Chronic low back pain(Confirmed) Active Chronic pain syndrome(Confirmed) Active Constipation(Confirmed) Active Exertional dyspnea(Confirmed) Active GERD (gastroesophageal reflu x disease)(Confirmed) Active H/O: breast problem(Confirmed) 1 Active Malian speaking patient(Confirmed) Active Mastodynia(Confirmed) 2 07/11/97 Active Migraine(Confirmed) Active Vitamin D deficiency(Confirmed) Active 1nipple itch 2Pt seen regularly for bilateral mastalgia. Various strategies trialled with minimal relief Social History Social History Type Response Smoking Status Never smoker entered on: 11/02/16 Sex
--- OUTSIDE RECORDS SUMMARY | 2023-12-20 07:25 | XMS_ITS | Continuity of Care Document ---
Author Organization [facility] Address [address] [place] [address]- Care Team Providers Care Systems Librarian Name Role Phone Amelia Montalvo DO Primary Care Physician [phone] Encounter [facility] [place] ACCT R [id number] Date(s): 07/19/19 - 07/29/19 [facility] [address] [facility] [place] [address]- [facility] Attending Physician: Dilan Mederos Admitting Physician: AdmDilan horton Referring Physician: Admtr, ArCarl Allergies, Adverse Reactions, Alerts Substance Reaction Severity [...] 11:56:00 EST Start Date: 07/19/19 Status: Ordered [place]-3 oral capsule 0 Refills, Maintenance, 07/19/19 11:55:00 [...] 0 Refills, Maintenance, 07/19/19 11:55:00 EST, Gel, [facility], 1 application Topically 4 times a day,Instr:not to... Start Date: 07/19/19 Status: Ordered Problem List Condition Effective Dates Status Health Status Inform ant Allergic rhinitis(Confirmed) Active Anxiety(Confirmed) Active Arthritis(Confirmed) Active Asthma(Confirmed) Active Atypical chest pain(Confirmed) Active Chronic low back pain(Confirmed) Active Chronic pain syndrome(Confirmed) Active Constipation(Confirmed) Active Exertional dyspnea(Confirmed) Active GERD (gastroesophageal reflu x disease)(Confirmed) Active H/O: breast problem(Confirmed) 1 Active Honduran speaking patient(Confirmed) Active Mastodynia(Confirmed) 2 07/11/97 Active Migraine(Confirmed) Active Vitamin D deficiency(Confirmed) Active 1nipple itch 2Pt seen regularly for bilateral mastalgia. Various strategies trialled with minimal relief Social History Social History Type Response Smoking Status Never smoker entered on: 11/02/16 Sex
--- OUTSIDE RECORDS SUMMARY | 2023-12-20 07:25 | XMS_ITS | Continuity of Care Document ---
Author Organization [facility] Address [address] [place] [address]- Care Team Providers Care Java Programmer Name Role Phone Amelia Montalvo DO Primary Care Physician Encounter [facility] [place] ACCT R [id number] Date(s): 05/14/21 - 07/25/21 [facility] [address] [facility] [address]- Attending Physician: Lizeth Nance NP Admitting Physician: Goyo CHURCHILL, Lizeth Referring Physician: Amelia Montalvo DO Allergies, Adverse Reactions, Alerts Substance Reaction Severity Status Tetanus Toxoid Adsorbed 1 shaking Ac tive vancomycin Active 1When little per (who says pt's mom [...] EST, Solution Start Date: 07/19/19 Status: Ordered busPIRone 5 mg oral tablet [...] 208:21:00 EDT Start Date: 01/09/20 Status: Ordered [place]-3 oral capsule 0 Refills, Maintenance, 07/19/19 11:55:00 [...] disease)(Confirmed) Active H/O: breast problem(Confirmed) 1 Active Urdu speaking patient(Confirmed) Active Mastodynia(Confirmed) 2 07/11/97 Active Migraine(Confirmed) Active Vitamin D deficiency(Confirmed) Active 1nipple itch 2Pt seen regularly for bilateral mastalgia. Various strategies trialled with minimal relief Social History Social History Type Response Smoking Status Never smoker entered on: 11/02/16 Sex
--- OUTSIDE RECORDS SUMMARY | 2023-12-20 07:25 | XMS_ITS | Continuity of Care Document ---
Author Organization [facility] Address [address] [place] [address]- Care Team Providers Care Marine Firer Name Role Phone Amelia Montalvo DO Primary Care Physician Encounter [facility] [place] Date(s): 11/08/19 - 03/01/20 [facility] [address] [place] [address]- [facility] Attending Physician: Lizeth Nance NP Admitting Physician: [...] 8:21:00 EDT Start Date: 01/09/20 Status: Ordered [place]-3 oral capsule 0 Refills, Maintenance, 07/19/19 11:55:00 [...] disease)(Confirmed) Active H/O: breast problem(Confirmed) 1 Active Georgian speaking patient(Confirmed) Active Mastodynia(Confirmed) 2 07/11/97 Active Migraine(Confirmed) Active Vitamin D deficiency(Confirmed) Active 1nipple itch 2Pt seen regularly for bilateral mastalgia. Various strategies trialled with minimal relief Social History Social History Type Response Smoking Status Never smoker entered on: 11/02/16 Sex
--- OUTSIDE RECORDS SUMMARY | 2023-12-20 07:25 | XMS_ITS | Continuity of Care Document ---
Author Organization [facility] Address [address] [place] [address]- Care Team Providers Care Pediatric Intensive Physician Name Role Phone Amelia Montalvo DO Primary Care Physician [place] [facility] [place] - 12/01/19 [facility] [address] [facility] [place] [address]- [facility] Attending Physician: Danita Corrales NP Admitting Physician: Danita Corrales NP Referring Physician: Amelia Montalvo DO Allergies, Adverse [...] 11:56:00 EST Start Date: 07/19/19 Status: Ordered Reese-3 oral capsule 0 Refills, Maintenance, 07/19/19 11:55:00 [...] 0 Refills, Maintenance, 07/19/19 11:55:00 EST, Gel, [facility], 1 application Topically 4 times a day,Instr:not to... Start Date: 07/19/19 Status: Ordered Problem List Condition Effective Dates Status Health Status Inform ant Allergic rhinitis(Confirmed) Active Anxiety(Confirmed) Active Arthritis(Confirmed) Active Asthma(Confirmed) Active Atypical chest pain(Confirmed) Active Chronic low back pain(Confirmed) Active Chronic pain syndrome(Confirmed) Active Constipation(Confirmed) Active Exertional dyspnea(Confirmed) Active GERD (gastroesophageal reflu x disease)(Confirmed) Active H/O: breast problem(Confirmed) 1 Active Sammarinese speaking patient(Confirmed) Active Mastodynia(Confirmed) 2 07/11/97 Active Migraine(Confirmed) Active Vitamin D deficiency(Confirmed) Active 1nipple itch 2Pt seen regularly for bilateral mastalgia. Various strategies trialled with minimal relief Social History Social History Type Response Smoking Status Never smoker entered on: 11/02/16 Sex
--- OUTSIDE RECORDS SUMMARY | 2023-12-20 07:25 | XMS_ITS | Continuity of Care Document ---
Author Organization [facility] Address [address], [address] Floor, [address] [place] [address]- Care Team Providers Care Vegetable Worker Name Role Phone Amelia Montalvo DO Primary Care Physician [place] [facility] [place] 09/18/19 - 10/28/19 [facility] [address], [address] Floor, [address] [place] [address]- [facility] Attending Physician: Tanisha Parnell NP Admitting Physician: Parmjit CHURCHILL, Tanisha Referring Physician: Amelia Montalvo DO Allergies, Adverse [...] 11:56:00 EST Start Date: 07/19/19 Status: Ordered Emery-3 oral capsule 0 Refills, Maintenance, 07/19/19 11:55:00 [...] 0 Refills, Maintenance, 07/19/19 11:55:00 EST, Gel, [facility], 1 application Topically 4 times a day,Instr:not to... Start Date: 07/19/19 Status: Ordered Problem List Condition Effective Dates Status Health Status Inform ant Allergic rhinitis(Confirmed) Active Anxiety(Confirmed) Active Arthritis(Confirmed) Active Asthma(Confirmed) Active Atypical chest pain(Confirmed) Active Chronic low back pain(Confirmed) Active Chronic pain syndrome(Confirmed) Active Constipation(Confirmed) Active Exertional dyspnea(Confirmed) Active GERD (gastroesophageal reflu x disease)(Confirmed) Active H/O: breast problem(Confirmed) [address] [place] speaking patient(Confirmed) Active Mastodynia(Confirmed) 2 07/11/97 Active Migraine(Confirmed) Active Vitamin D deficiency(Confirmed) Active 1nipple itch 2Pt seen regularly for bilateral mastalgia. Various strategies trialled with minimal relief Social History Social History Type Response Smoking Status Never smoker entered on: 11/02/16 Sex
--- OUTSIDE RECORDS SUMMARY | 2023-12-20 07:25 | XMS_ITS | Continuity of Care Document ---
Author Organization [facility] Address [address] [place] [address]- Care Team Providers Care Oil Well Driller Name Role Phone Amelia Montalvo DO Primary Care Physician [place] [facility] [place] [id number] Date(s): 11/22/19 - 12/22/19 [facility] [address] [place] [address]- [facility] Attending Physician: Dilan Mederos Admitting Physician: AdmDilan [...] 11:56:00 EST Start Date: 07/19/19 Status: Ordered Penn-3 oral capsule 0 Refills, Maintenance, 07/19/19 11:55:00 [...] 0 Refills, Maintenance, 07/19/19 11:55:00 EST, Gel, [facility], 1 application Topically [...] disease)(Confirmed) Active H/O: breast problem(Confirmed) 1 Active Maori speaking patient(Confirmed) Active Mastodynia(Confirmed) 2 07/11/97 Active Migraine(Confirmed) Active Vitamin D deficiency(Confirmed) Active 1nipple itch 2Pt seen regularly for bilateral mastalgia. Various strategies trialled with minimal relief Social History Social History Type Response Smoking Status Never smoker entered on: 11/02/16 Sex
--- OUTSIDE RECORDS SUMMARY | 2023-12-20 07:25 | XMS_ITS | Continuity of Care Document ---
Author Organization [facility] Address [address] [place] [address]- Care Team Providers Care Test Lead Application Testing Name Role Phone Amelia Montalvo DO Primary Care Physician [phone] Encounter [facility] [place] Date(s): 08/24/19 - 12/22/19 [facility] [address] [facility] [place] [address]- [facility] Attending Physician: Danita Corrales NP Admitting [...] 11:56:00 EST Start Date: 07/19/19 Status: Ordered Haviland-3 oral capsule 0 Refills, Maintenance, 07/19/19 11:55:00 [...] 0 Refills, Maintenance, 07/19/19 11:55:00 EST, Gel, [facility], 1 application Topically 4 times a day,Instr:not to... Start Date: 07/19/19 Status: Ordered Problem List Condition Effective Dates Status Health Status Inform ant Allergic rhinitis(Confirmed) Active Anxiety(Confirmed) Active Arthritis(Confirmed) Active Asthma(Confirmed) Active Atypical chest pain(Confirmed) Active Chronic low back pain(Confirmed) Active Chronic pain syndrome(Confirmed) Active Constipation(Confirmed) Active Exertional dyspnea(Confirmed) Active GERD (gastroesophageal reflu x disease)(Confirmed) Active H/O: breast problem(Confirmed) 1 Active Setswana speaking patient(Confirmed) Active Mastodynia(Confirmed) 2 07/11/97 Active Migraine(Confirmed) Active Vitamin D deficiency(Confirmed) Active 1nipple itch 2Pt seen regularly for bilateral mastalgia. Various strategies trialled with minimal relief Social History Social History Type Response Smoking Status Never smoker entered on: 11/02/16 Sex
--- OUTSIDE RECORDS SUMMARY | 2023-12-20 07:25 | XMS_ITS | Continuity of Care Document ---
Author Organization [facility] ter Address [address] [place] [address]- Care Team Providers Care Cigar Roller Name Role Phone Amelia Montalvo DO Primary Care Physician En[place] [facility] [place] Date(s): 09/30/21 - 07/30/[address] [address]- Attending Physician: Danita Corrales NP Admitting Physician: [...] 208:21:00 EDT Start Date: 01/09/20 Status: Ordered Canton-3 oral capsule 0 Refills, Maintenance, 07/19/19 11:55:00 [...] Date: 02/27/15 Status: Ordered Problem List Condition Confirmation Course Effective Dates Status Health St atus Informant Allergic rhinitis Confirmed Active Anxiety Confirmed Active Arthritis Confirmed Active Asthma Confirmed Active Atypical chest pain Confirmed Active Chronic low back pain Confirmed Active Chronic pain syndrome Confirmed Active Constipation Confirmed Active Exertional dyspnea Confirmed Active GERD (gastroesophageal reflux disease) Confirmed Active H/O: breast problem 1 Confirmed Active Chinese speaking patient Confirmed Active Mastodynia 2 Confirmed 07/11/97 Active Migraine Confirmed Active Vitamin D deficiency Confirmed Active 1nipple itch 2Pt seen regularly for bilateral mastalgia. Various strategies trialled with minimal relief Social History Social History Type Response Smoking Status Never smoker entered on: 11/02/16 Sex Patient Care team information Care Team Personnel Name: Amelia Montalvo DO Position: [facility] Outreach Member Role: PCP Address: Address: [address] [place] [address]- Care Team Related Persons Name: ULISES NEWBERRY Address: home [address] [place] [address] Name: JORGITO MOSQUEDA Address: home [address] [place] [address] Name: BRADY DOW Address: home [address] [place] [address]
--- OUTSIDE RECORDS SUMMARY | 2023-12-20 07:25 | XMS_ITS | Continuity of Care Document ---
Author Organization [facility] Address [address] [facility], [address] d Floor, [address] [place] [address]- Care Team Providers Care Associate Software Developer Name Role Phone Amelia Montalvo DO Primary Care Physician En[place] [facility] [place] Date(s): 09/29/19 - 01/27/20 [facility] [address], [address] Floor, [address] [place] [address]- [facility] Attending Physician: Tanisha Parnell NP Admitting Physician: [...] 8:21:00 EDT Start Date: 01/09/20 Status: Ordered Freeport-3 oral capsule 0 Refills, Maintenance, 07/19/19 11:55:00 [...] disease)(Confirmed) Active H/O: breast problem(Confirmed) 1 Active Vietnamese speaking patient(Confirmed) Active Mastodynia(Confirmed) 2 07/11/97 Active Migraine(Confirmed) Active Vitamin D deficiency(Confirmed) Active 1nipple itch 2Pt seen regularly for bilateral mastalgia. Various strategies trialled with minimal relief Social History Social History Type Response Smoking Status Never smoker entered on: 11/02/16 Sex
--- OUTSIDE RECORDS SUMMARY | 2023-12-20 07:25 | XMS_ITS | Continuity of Care Document ---
Author Organization [facility] Address [address] [place] [address]- Care Team Providers Care Graphics Coordinator Name Role Phone Amelia Montalvo DO Primary Care Physician [place] [facility] [place] Date(s): 07/22/21 - 09/18/21 [facility] [address] [facility] [place] [address]- Attending Physician: Danita Corrales NP Admitting Physician: [...] 208:21:00 EDT Start Date: 01/09/20 Status: Ordered Gordon-3 oral capsule 0 Refills, Maintenance, 07/19/19 11:55:00 [...] disease)(Confirmed) Active H/O: breast problem(Confirmed) 1 Active Stateless speaking patient(Confirmed) Active Mastodynia(Confirmed) 2 07/11/97 Active Migraine(Confirmed) Active Vitamin D deficiency(Confirmed) Active 1nipple itch 2Pt seen regularly for bilateral mastalgia. Various strategies trialled with minimal relief Social History Social History Type Response Smoking Status Never smoker entered on: 11/02/16 Sex
--- OUTSIDE RECORDS SUMMARY | 2023-12-20 07:25 | XMS_ITS | Continuity of Care Document ---
Author Organization [facility] Address Unknown Care Team Providers Care Manager Call Center Name Role Phone Amelia Montalvo DO Primary Care Physician [phone] [place] [facility] [id number] Date(s): 11/12/20 - 03/12/21 [facility] Attending Physician: Tanisha Parnell NP Admitting Physician: [...] 208:21:00 EDT Start Date: 01/09/20 Status: Ordered Farmington-3 oral capsule 0 Refills, Maintenance, 07/19/19 11:55:00 [...] disease)(Confirmed) Active H/O: breast problem(Confirmed) 1 Active Lao speaking patient(Confirmed) Active Mastodynia(Confirmed) 2 07/11/97 Active Migraine(Confirmed) Active Vitamin D deficiency(Confirmed) Active 1nipple itch 2Pt seen regularly for bilateral mastalgia. Various strategies trialled with minimal relief Social History Social History Type Response Smoking Status Never smoker entered on: 11/02/16 Sex
--- OUTSIDE RECORDS SUMMARY | 2023-12-20 07:25 | XMS_ITS | Continuity of Care Document ---
Author Organization [facility] Address [address] [facility], [address] d Floor, [address] [place] [address]- Care Team Providers Care Sales Representative Supervisor Name Role Phone Amelia Montalvo DO Primary Care Physician [place] [facility] [place] [facility] [facility] [id number] Date(s): 08/01/19 - 08/11/19 [facility] [address] [facility], 3rd Floor, [address] [place] [address]- [facility] Attending Physician: Admsol, Dilan Admitting Physician: Admtr, Dilan Referring Physician: Admtr, Ar8 Allergies, Adverse Reactions, Alerts Substance Reaction Severity [...] 11:56:00 EST Start Date: 07/19/19 Status: Ordered Wenona-3 oral capsule 0 Refills, Maintenance, 07/19/19 11:55:00 [...] 0 Refills, Maintenance, 07/19/19 11:55:00 EST, Gel, [facility], 1 application Topically 4 times a day,Instr:not to... Start Date: 07/19/19 Status: Ordered Problem List Condition Effective Dates Status Health Status Inform ant Allergic rhinitis(Confirmed) Active Anxiety(Confirmed) Active Arthritis(Confirmed) Active Asthma(Confirmed) Active Atypical chest pain(Confirmed) Active Chronic low back pain(Confirmed) Active Chronic pain syndrome(Confirmed) Active Constipation(Confirmed) Active Exertional dyspnea(Confirmed) Active GERD (gastroesophageal reflu x disease)(Confirmed) Active H/O: breast problem(Confirmed) 1 Active Telugu speaking patient(Confirmed) Active Mastodynia(Confirmed) 2 07/11/97 Active Migraine(Confirmed) Active Vitamin D deficiency(Confirmed) Active 1nipple itch 2Pt seen regularly for bilateral mastalgia. Various strategies trialled with minimal relief Social History Social History Type Response Smoking Status Never smoker entered on: 11/02/16 Sex
--- OUTSIDE RECORDS SUMMARY | 2023-12-20 07:25 | XMS_ITS | Continuity of Care Document ---
Author Organization [facility] ter Address [address] [place] [address]- Care Team Providers Care School Operations Manager Name Role Phone Amelia Montalvo DO Primary Care Physician [place] [facility] [id number] Date(s): 07/21/19 - 07/21/[address] [address]- [facility] Discharge Disposition: A-D/C Walkout Attending Physician: Not on Staff, Attending MD Admitting Physician: Not on Staff, Admitting MD Referring Physician: Not on Staff, Referring MD Allergies, Adverse Reactions, Alerts Substance Reaction Severity [...] 11:56:00 EST Start Date: 07/19/19 Status: Ordered Clarion-3 oral capsule 0 Refills, Maintenance, 07/19/19 11:55:00 [...] 0 Refills, Maintenance, 07/19/19 11:55:00 EST, Gel, [facility], 1 application Topically 4 times a day,Instr:not to... Start Date: 07/19/19 Status: Ordered Problem List Condition Effective Dates Status Health Status Inform ant Allergic rhinitis(Confirmed) Active Anxiety(Confirmed) Active Arthritis(Confirmed) Active Asthma(Confirmed) Active Atypical chest pain(Confirmed) Active Chronic low back pain(Confirmed) Active Chronic pain syndrome(Confirmed) Active Constipation(Confirmed) Active Exertional dyspnea(Confirmed) Active GERD (gastroesophageal reflu x disease)(Confirmed) Active H/O: breast problem(Confirmed) 1 Active Hungarian speaking patient(Confirmed) Active Mastodynia(Confirmed) 2 07/11/97 Active Migraine(Confirmed) Active Vitamin D deficiency(Confirmed) Active 1nipple itch 2Pt seen regularly for bilateral mastalgia. Various strategies trialled with minimal relief Vital Signs Most recent to oldest [Reference Range]: 1 2 Oxygen Saturation [94-100 %] 100 % (07/21/19 1:48 PM) 99 % (07/21/19 1:42 PM) Pulse Rate [55-90 bpm] 80 bpm (07/21/19 1:48 PM) 78 bpm (07/21/19 1:42 PM) Blood Pressure [90-138/55-84 mm Hg] 111/ 68mm Hg (07/21/19 1:48 PM) Respiratory Rate [16-30 br/min] 16 br/mi n (07/21/19 1:48 PM) Temperature [96.8-100.4 DegF] 98.1 DegF (07/21/19 1:48 PM) Mode of Delivery (Oxygen) Room air (07/21/19 1:48 PM) Room air (07/21/19 1:42 PM) Blood pressure sites Arm, right (07/21/19 1:48 PM) Temperature Route Oral (07/21/19 1:48 PM) Social History Social History Type Response Smoking Status Never smoker entered on: 11/02/16 Sex
--- OUTSIDE RECORDS SUMMARY | 2023-12-20 07:25 | XMS_ITS | Continuity of Care Document ---
Author Organization [facility] Address [address] [place] [address]- Care Team Providers Care Cap Sewer Name Role Phone Amelia Montalvo DO Primary Care Physician [phone] [facility] [place] - 07/30/22 [facility] [address] [facility] [place] [address]- Attending Physician: Dilan Mederos Admitting Physician: AdmDilan horton Referring Physician: Admtr ArCarl Allergies, Adverse Reactions, Alerts Substance Reaction [...] 208:21:00 EDT Start Date: 01/09/20 Status: Ordered Grindstone-3 oral capsule 0 Refills, Maintenance, 07/19/19 11:55:00 [...] Active H/O: breast problem 1 Confirmed Active Syriac speaking patient Confirmed Active Mastodynia 2 Confirmed 07/11/97 Active Migraine Confirmed Active Vitamin D deficiency Confirmed Active 1nipple itch 2Pt seen regularly for bilateral mastalgia. Various strategies trialled with minimal relief Social History Social History Type Response Smoking Status Never smoker entered on: 11/02/16 Sex Note * Event Display: Non Radiology Results Authored Date: * Event Display: Non BH Radiology Results Authored Date: Patient Care team information Care Team Personnel Name: Amelia Montalvo DO Position: [facility] Outreach Member Role: PCP Address: Address: [address] [place] [address]- Care Team Related Persons Name: ULISES NEWBERRY Address: home [address] [place] [address] Name: JORGITO MOSQUEDA Address: home [address] [place] [address] Name: BRADY DOW Address: home [address] [place] [address]
--- OUTSIDE RECORDS SUMMARY | 2023-12-20 07:25 | XMS_ITS | Continuity of Care Document ---
Author Organization [facility] Address [address] [facility] [place] [address]- Care Team Providers Care Battery Container Finishing Hand Name Role Phone Amelia Montalvo DO Primary Care Physician En[place] [facility] [place] Date(s): 01/09/20 - 02/08/20 [facility] [address] [facility] [place] [address] Attending Physician: Dilan Mederos Admitting Physician: Dilan Mederos Referring Physician: Admtr, Dilan Allergies, Adverse Reactions, Alerts Substance Reaction Severity [...] 8:21:00 EDT Start Date: 01/09/20 Status: Ordered L[place] Park-3 oral capsule 0 Refills, Maintenance, 07/19/19 11:55:00 [...] disease)(Confirmed) Active H/O: breast problem(Confirmed) 1 Active Tongan speaking patient(Confirmed) Active Mastodynia(Confirmed) 2 07/11/97 Active Migraine(Confirmed) Active Vitamin D deficiency(Confirmed) Active 1nipple itch 2Pt seen regularly for bilateral mastalgia. Various strategies trialled with minimal relief Social History Social History Type Response Smoking Status Never smoker entered on: 11/02/16 Sex
--- OUTSIDE RECORDS SUMMARY | 2023-12-20 07:25 | XMS_ITS | Continuity of Care Document ---
Author Organization [facility] Address Unknown Care Team Providers Care Commercial Floor Covering Installer Name Role Phone Amelia Montalvo DO Primary Care Physician [place] [facility] [id number] Date(s): 02/10/21 - 03/14/21 [facility] Attending Physician: Thi Garnica MD Admitting Physician: Thi Garnica MD Allergies, Adverse Reactions, Alerts Substance Reaction [...] 208:21:00 EDT Start Date: 01/09/20 Status: Ordered Adamstown-3 oral capsule 0 Refills, Maintenance, 07/19/19 11:55:00 [...] disease)(Confirmed) Active H/O: breast problem(Confirmed) 1 Active Wolof speaking patient(Confirmed) Active Mastodynia(Confirmed) 2 07/11/97 Active Migraine(Confirmed) Active Vitamin D deficiency(Confirmed) Active 1nipple itch 2Pt seen regularly for bilateral mastalgia. Various strategies trialled with minimal relief Social History Social History Type Response Smoking Status Never smoker entered on: 11/02/16 Sex
--- OUTSIDE RECORDS SUMMARY | 2023-12-20 07:25 | XMS_ITS | Continuity of Care Document ---
Author Organization [facility] Address [address] [facility] [place] [address]- Care Team Providers Care Chrome Cleaner Name Role Phone Amelia Montalvo DO Primary Care Physician [phone] [place] [facility] [place] 08/04/22 - 10/22/22 [facility] [address] [facility] [place] [address]- Attending Physician: Danita Corrales NP Admitting Physician: [...] 208:21:00 EDT Start Date: 01/09/20 Status: Ordered Davenport-3 oral capsule 0 Refills, Maintenance, 07/19/19 11:55:00 [...] Active H/O: breast problem 1 Confirmed Active Malay speaking patient Confirmed Active Mastodynia 2 Confirmed 07/11/97 Active Migraine Confirmed Active Vitamin D deficiency Confirmed Active 1nipple itch 2Pt seen regularly for bilateral mastalgia. Various strategies trialled with minimal relief Social History Social History Type Response Smoking Status Never smoker entered on: 11/02/16 Sex Patient Care team information Care Team Personnel Name: Amelia Montalvo DO Position: [facility] Outreach Member Role: PCP Address: Address: [address] [place] [address]- Care Team Related Persons Name: ULISES NEWBERRY Address: home [address] [place] [address] Name: JORGITO MOSQUEDA Address: [address] [place] [address] Name: BRADY DOW Address: home [address] [place] [address]
--- OUTSIDE RECORDS SUMMARY | 2023-12-20 07:25 | XMS_ITS | Continuity of Care Document ---
Author Organization [facility] Address [address] [facility] [place] [address]- Care Team Providers Care Plastic Surgery Nurse Name Role Phone Amelia Montalvo DO Primary Care Physician Encounter [facility] [place] ACCT R [id number] Date(s): 06/26/21 - 07/31/21 [facility] [address] [facility] [place] [address]- Attending Physician: Danita Corrales NP Admitting Physician: [...] 208:21:00 EDT Start Date: 01/09/20 Status: Ordered [place]-3 oral capsule 0 Refills, Maintenance, 07/19/19 11:55:00 [...] disease)(Confirmed) Active H/O: breast problem(Confirmed) 1 Active Northern Irish speaking patient(Confirmed) Active Mastodynia(Confirmed) 2 07/11/97 Active Migraine(Confirmed) Active Vitamin D deficiency(Confirmed) Active 1nipple itch 2Pt seen regularly for bilateral mastalgia. Various strategies trialled with minimal relief Social History Social History Type Response Smoking Status Never smoker entered on: 11/02/16 Sex
--- OUTSIDE RECORDS SUMMARY | 2023-12-20 07:25 | XMS_ITS | Continuity of Care Document ---
Author Organization [facility] Address [address] [place] [address]- Care Team Providers Care Software Packager Name Role Phone Amelia Montalvo DO Primary Care Physician [place] [facility] [place]22 - 07/30/22 [facility] [address] [facility] [place] [address]- Attending Physician: Danita Corrales NP Admitting Physician: Dainta Corrales NP Referring Physician: Amelia Montalvo DO [...] 208:21:00 EDT Start Date: 01/09/20 Status: Ordered [place]-3 oral capsule 0 Refills, Maintenance, 07/19/19 11:55:00 [...] Active H/O: breast problem 1 Confirmed Active Omani speaking patient Confirmed Active Mastodynia 2 Confirmed 07/11/97 Active Migraine Confirmed Active Vitamin D deficiency Confirmed Active 1nipple itch 2Pt seen regularly for bilateral mastalgia. Various strategies trialled with minimal relief Social History Social History Type Response Smoking Status Never smoker entered on: 11/02/16 Sex Patient Care team information Care Team Personnel Name: Amelia Montalvo DO Position: [facility] Outreach Member Role: PCP Address: Address: [address] [place] [address]- Care Team Related Persons Name: ULISES NEWBERRY Address: home [address] [place] [address] Name: JORGITO MOSQUEDA Address: home [address] [place] [address] Name: BRADY DOW Address: home [address] [place] [address]
--- OUTSIDE RECORDS SUMMARY | 2023-12-20 07:25 | XMS_ITS | Continuity of Care Document ---
Author Organization [facility] Address [address] [place] [address]- Care Team Providers Care Freelance Displayer Name Role Phone Amelia Montalvo DO Primary Care Physician [place] [facility] [place] [id number] Date(s): 08/19/21 - 09/18/21 [facility] [address] [facility] [place] [address]- Attending Physician: Dilan Mederos Admitting Physician: AdmDilan horton Referring Physician: AdmtrDilan Allergies, Adverse Reactions, Alerts Substance Reaction Severity [...] 208:21:00 EDT Start Date: 01/09/20 Status: Ordered [place]-3 oral capsule 0 Refills, Maintenance, 07/19/19 11:55:00 [...]
--- OUTSIDE RECORDS SUMMARY | 2023-12-20 07:25 | XMS_ITS | Continuity of Care Document ---
Author Organization [facility] Address [address] [facility], [address] Floor, [address] [place] [address]- Care Team Providers Care Clinical Psychology Professor Name Role Phone Amelia Montalvo DO Primary Care Physician Encounter [facility] [place] Date(s): 05/26/20 - 06/25/20 [facility] [address] [facility], 3rd Floor, [address] [place] [id number] Attending Physician: Dilan Mederos Admitting Physician: AdmtrDilan Referring Physician: Admtr, ArCarl Allergies, Adverse Reactions, [...] 208:21:00 EDT Start Date: 01/09/20 Status: Ordered [place]-3 oral capsule 0 Refills, Maintenance, 07/19/19 11:55:00 [...] disease)(Confirmed) Active H/O: breast problem(Confirmed) 1 Active Greenlandic speaking patient(Confirmed) Active Mastodynia(Confirmed) 2 07/11/97 Active Migraine(Confirmed) Active Vitamin D deficiency(Confirmed) Active 1nipple itch 2Pt seen regularly for bilateral mastalgia. Various strategies trialled with minimal relief Social History Social History Type Response Smoking Status Never smoker entered on: 11/02/16 Sex
--- OUTSIDE RECORDS SUMMARY | 2023-12-20 07:25 | XMS_ITS | Continuity of Care Document ---
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 Pilot Name Role Phone Amelia Montalvo DO Primary Care Physician Encounter [facility] [place] Date(s): 01/03/20 - 03/23/20 [facility] [address], [address], [address] [place] [address] [facility] Attending Physician: Tanisha Parnell NP Admitting Physician: Tanisha Parnell NP Referring Physician: Amelia Montalvo DO Allergies, [...] 8:21:00 EDT Start Date: 01/09/20 Status: Ordered [place]-3 oral capsule 0 Refills, Maintenance, 07/19/19 11:55:00 [...] disease)(Confirmed) Active H/O: breast problem(Confirmed) 1 Active Lithuanian speaking patient(Confirmed) Active Mastodynia(Confirmed) 2 07/11/97 Active Migraine(Confirmed) Active Vitamin D deficiency(Confirmed) Active 1nipple itch 2Pt seen regularly for bilateral mastalgia. Various strategies trialled with minimal relief Social History Social History Type Response Smoking Status Never smoker entered on: 11/02/16 Sex
--- OUTSIDE RECORDS SUMMARY | 2023-12-20 07:25 | XMS_ITS | Continuity of Care Document ---
Author Organization [facility] ter Address [address] [place] [address]- Care Team Providers Care Earth Science Teacher Name Role Phone Amelia Montalvo DO Primary Care Physician [phone] Encounter [facility] [place] Date(s): 11/15/18 - 12/22/[address] [address]- [facility] Attending Physician: Danita Corrales NP Admitting Physician: [...] 11:56:00 EST Start Date: 07/19/19 Status: Ordered [place]-3 oral capsule 0 Refills, Maintenance, 07/19/19 11:55:00 [...] 0 Refills, Maintenance, 07/19/19 11:55:00 EST, Gel, [facility], 1 application Topically 4 times a day,Instr:not to... Start Date: 07/19/19 Status: Ordered Problem List Condition Effective Dates Status Health Status Inform ant Allergic rhinitis(Confirmed) Active Anxiety(Confirmed) Active Arthritis(Confirmed) Active Asthma(Confirmed) Active Atypical chest pain(Confirmed) Active Chronic low back pain(Confirmed) Active Chronic pain syndrome(Confirmed) Active Constipation(Confirmed) Active Exertional dyspnea(Confirmed) Active GERD (gastroesophageal reflu x disease)(Confirmed) Active H/O: breast problem(Confirmed) 1 Active Chinese speaking patient(Confirmed) Active Mastodynia(Confirmed) 2 07/11/97 Active Migraine(Confirmed) Active Vitamin D deficiency(Confirmed) Active 1nipple itch 2Pt seen regularly for bilateral mastalgia. Various strategies trialled with minimal relief Social History Social History Type Response Smoking Status Never smoker entered on: 11/02/16 Sex
--- OUTSIDE RECORDS SUMMARY | 2023-12-20 07:25 | XMS_ITS | Continuity of Care Document ---
Author Organization [facility] Address Unknown Care Team Providers Care Sprinkler Fitter Name Role Phone Amelia Montalvo DO Primary Care Physician Encounter [facility] [place] ACCT R [id number] Date(s): 02/12/21 - 03/14/21 [facility] Attending Physician: Dilan Mederos Admitting Physician: Dilan Mederos Referring Physician: Dilna Mederos Allergies, Adverse Reactions, Alerts Substance Reaction Severity [...] 208:21:00 EDT Start Date: 01/09/20 Status: Ordered [place]-3 oral capsule 0 Refills, Maintenance, 07/19/19 11:55:00 [...] disease)(Confirmed) Active H/O: breast problem(Confirmed) 1 Active Indonesian speaking patient(Confirmed) Active Mastodynia(Confirmed) 2 07/11/97 Active Migraine(Confirmed) Active Vitamin D deficiency(Confirmed) Active 1nipple itch 2Pt seen regularly for bilateral mastalgia. Various strategies trialled with minimal relief Social History Social History Type Response Smoking Status Never smoker entered on: 11/02/16 Sex
--- NOTE | 2023-12-20 08:38 | P.DS_ITS ---
DS: Providers Provider Date of Service: 12/22/23 Date of admission: 12/20/23 07:21 Primary care physician: Amelia Montalvo DO DS: Summary Hospital Course Hospital Course: The patient underwent a successful left total knee arthroplasty, they were transferred to PACU and then to the floor to recover. During their stay, their vitals were stable, afebrile at 97.6. Labs were unremarkable, H/H 9.9/30.8. POD 1 they were started on Aspirin 325mg po bid for DVT ppx, they also received Physical Therapy services twice a day. Prior to discharge, their dressing was clean dry and intact, and the plan was to be discharged home with VNA services. Time Attestation Discharge Coordination Time (in mins): 30 Quality: Safe Use of Opioids Does Pt have an Active Cancer Diagnosis on the Problem List?: No Quality: Stroke Does the patient have a stroke diagnosis?: No Physical Exam Vital Signs: Vital Signs: Last Vital Signs Temp 97.3 F 12/20/23 08:16 Pulse 70 12/20/23 08:16 Resp 16 12/20/23 08:16 BP 120/69 12/20/23 08:16 Pulse Ox 97 12/20/23 08:16 O2 Del Method Room Air 12/20/23 08:16 BMI result Body Mass Index 25.8 Const: General: cooperative, healthy appearing and no acute distress Resp: Effort & Inspection: normal respiratory effort and able to speak in complete sentences Cardio: Rate: regular rate Peripheral pulses: Peripheral pulses 2+ throughout GI: Palpation (GI): Soft to palpation Skin: Lesions: no lesions Rashes: no rashes Extrem: Other: left knee dressing is c/d/i. Able to dorsi/plantar flex. Calf is supple and nontender. Sensation intact. Pedal pulse intact. DS: Data Data Completed and Pending Labs on day of discharge: Laboratory Results - last 24 hr 12/20/23 07:37 Blood Type A Positive Antibody Screen NEGATIVE Discharge Plan Discharge Anticipated Discharge Date/Time: 12/21/23 13:37 Patient Disposition: Xfer SNF Discharge Diagnosis: s/p LTKA Referrals: [facility] [Outside] - 1 Week Courtney Quintana PA-C [Physician Disassembler] - 01/05/24 3:15 pm Discharge Medications: New celecoxib 200 mg Capsule 200 mg PO BID 30 Days Qty: 60 0RF acetaminophen 325 mg Tablet 650 mg PO Q6H PRN (Reason: Pain, Mild (Pain Scale 1-3)) 30 Days Qty: 240 0RF aspirin 325 mg Tablet 325 mg PO BID 42 Days Qty: 84 0RF oxycodone 5 mg Tablet 5 mg PO Q4H PRN (Reason: Pain, Moderate(Pain Scale 4-6)) 7 Days Qty: 42 0RF Rx Instructions: Partial Fill upon patient request. Continued bisacodyl 5 mg tablet,delayed release (DR/EC) 10 mg PO BEDTIME Qty: 60 6RF (DME) micaela Hadleyc See Rx Instructions .MEDSUPPLY Qty: 1 0RF Rx Instructions: Folding Front wheeled micaela albuterol sulfate 90 mcg/actuation HFA aerosol inhaler 2 puff PO Q4H PRN (Reason: dyspnea) diclofenac sodium [Voltaren Arthritis Pain] 1 % Gel 2 g TOPICAL QID PRN (Reason: Pain) Rx Instructions: apply to single elbow, wrist or hand; for hand includes palm/fingers/back of hand naproxen 500 mg tablet 500 mg PO BID PRN (Reason: pain) 10 Days Qty: 20 0RF loratadine 10 mg tablet 10 mg PO DAILY zafirlukast 20 mg tablet 20 mg PO BID cyanocobalamin (vitamin B-12) 1,000 mcg tablet 1,000 mcg PO DAILY cholecalciferol (vitamin D3) 50 mcg (2,000 unit) tablet 50 mcg PO DAILY clonazepam 1 mg tablet 1 mg PO BID PRN (Reason: Anxiety) fluticasone propion-salmeterol 250-50 mcg/dose blister with device 1 ea inhalation BID albuterol sulfate 2.5 mg /3 mL (0.083 %) solution for nebulization 2.5 mg inhalation Q4H PRN (Reason: Shortness Of Breath Or Wheezing) sumatriptan succinate 100 mg tablet 100 mg PO Q2-4H PRN (Reason: Migraine Headache) Rx Instructions: do not exceed 2 doses per 24 hrs fluticasone propionate 50 mcg/actuation spray,suspension 2 spray intranasal DAILY ibuprofen 400 mg tablet 400 mg PO Q6H PRN (Reason: fever) ropinirole 0.25 mg tablet 0.25 mg PO BEDTIME meclizine 25 mg tablet 25 mg PO TID PRN (Reason: dizziness) Tab-A-Aurea Multivitamin w-iron 15 mg iron- 400 mcg tablet 1 tab PO DAILY azelastine 137 mcg (0.1 %) aerosol,spray 1 spray intranasal DAILY ondansetron 4 mg tablet,disintegrating 4 mg PO Q8H mirtazapine 15 mg tablet 22.5 mg PO BEDTIME calcium polycarbophil [Fiber-Lax] 625 mg tablet 625 mg PO DAILY (DME) walker Misc See Rx Instructions .MEDSUPPLY Qty: 1 0RF Rx Instructions: Folding Front wheeled walker calcium citrate-vitamin D3 [[place] Calcium-Vitamin D3] 200 mg-6.25 mcg (250 unit) tablet 2 tab PO BID alendronate 70 mg tablet 70 mg PO QWEEK omeprazole 20 mg capsule,delayed release(DR/EC) 20 mg PO BID Qty: 60 6RF metoclopramide HCl [Reglan] 10 mg tablet 10 mg PO QID Qty: 120 6RF Rx Instructions: PLEASE PUT THIS IS A PILL BOX FORMAT SCHEDULED QID, second request please put this in the pill box scheduled qid Linzess 290 mcg capsule 290 mcg PO QAM 30 Days Qty: 30 6RF Rx Instructions: PLEASE PUT IN MED BOX FORMAT famotidine 40 mg tablet 40 mg PO BEDTIME Qty: 30 6RF docusate sodium 100 mg capsule 100 mg PO BID Qty: 60 6RF Discontinued acetaminophen [Tylenol Extra Strength] 500 mg tablet 500 mg PO Q6H PRN (Reason: fever or pain) Qty: 14 0RF Discharge Orders: Discharge Order (Routine); Ordered 12/22/23 Ordered By: Alexis Ceja Diet: Advance to usual diet Activity on Discharge: Use cane or walker Stand Alone Forms: Patient Portal Discharge page Print Language: Mauritanian Care Plan Goals: restore fxn to the left knee Health Concerns: none Plan of Treatment: Physical Therapy for ROM 0-120, quad strength, gait training. Use walker for ambulation Limit stair climbing, No shower, No tub bath, No driving Continue anticoagulant x 6 weeks Keep Aquacel dressing clean, dry and intact. Follow up with orthopedics in 2 weeks Assessment: stable for d/c
--- NOTE | 2023-12-20 08:39 | W.MHC.F2F ---
Service Date Service Date: 12/20/23 Encounter Date of encounter: 12/21/23 Reasons for Services Signs and symptoms assessed: s/p LTKA Pt. is considered homebound due to recent surgery. Unable to drive, poor balance, poor gait mechanics. Reason for physical therapy: home safety and mobility, therapeutic exercises, restore joint function, gait/transfer training, assess need for DME and ADL training Homebound: Leaving the home is medically contraindicated at this time without the asist of a device and/or another person due th the listed conditions above and below. Reason homebound: leg weakness, pain with ambulation, pain with transfers, poor balance / fall risk and unable to drive Certification: Based on the above findings, I certify that this patient is confined to the home and needs intermittent senior living care, physical therapy and/or speech therapy, or continues to need occupational therapy. The patient is under my care, and I have initiated the establishment of the plan of care. The patient will be followed by a physician who will periodically review the plan of care. Time Spent With Patient Time: Total time managing care of this patient today ____ minutes.
--- NOTE | 2023-12-20 10:59 | P.OP_ITS ---
Operative Note Operative Note Date of Service: 12/20/23 Narrative: Date of Service: 12/20/23 Pre-op diagnosis: Left knee OA Post-op diagnosis: same Procedure: Left TKA Implants: Byron Triathlon posterior stabilized 4411ps/29s Surgeon: Moustapha Frost MD Anesthesia: spinal Was an Contact Center Analyst used for this Procedure?: Yes Contact Center Analyst: Alexis Ceja Estimated blood loss (mL): 50 Tourniquet time (min): 49 IV fluids (mL): 1,000 Pathology: other Condition: stable Disposition: PACU Procedure in detail: The patient was brought to the operating room and prepped and draped in standard sterile fashion. A time-out was called to identify proper site proper procedure proper surgeon and IV antibiotics were administered. 1 g of IV tranexamic acid was administered. I began by making a midline incision to the retinaculum and performed a medial parapatellar arthrotomy. The patella was translated laterally and the knee was flexed up. The medial and anterior compartment were uburnated. I performed a small medial peel and resected the infrapatellar fat pad. López's line was then used to drill my intramedullary femoral guide and my distal femur cut of 10 mm was made in 5 degrees of valgus while protecting the soft tissues. I then measured a #4 femur and placed my cutting guide and made my anterior posterior and chamfer cuts protecting the soft tissues at all times. I then made my box but removing the PCL. Once I was satisfied with my cuts I turned my attention to the tibia. I removed the meniscus medially and laterally and , using an external cutting guide, in line with the tibial crest and the third ray, I made my distal tibial cut in 0 deg slope of while protecting the posterior soft tissues at all times. An extension block was used to confirm appropriate amount of bony resection. I then sized a #4 tibia and once I was satisfied that there was complete tibial coverage I placed my trial and with the trial femur in place took the knee through range of motion. I was satisfied with the extension and flexion as well as the balance at 0, 30 and 90 degrees. I then turned my attention to the patella where I removed 1 cm from the undersurface of the patella and then trialed a 29s patellar button. Again the knee was taken through range of motion I was sati sfied with the tracking. I then prepared the tibia with a drill and punch. A femoral bone plug was placed and the knee was irrigated copiously. 2 bags of bone cement was prepared on the back table. I then cemented the patella, tibia and femur in standard fashion. Axial compression and a clamp were used while the cement dried. Once the cement was hard on the back table all excess cement was removed and I trialed different inserts until I selected a #11PS insert. The final insert was placed and local TXA was administered. The knee was then closed with a running Quill suture, a 3 0 Vicryl and richy on the skin. Patient was then placed in sterile dressing and brought to recovery room in stable condition there were no known complications.
--- NOTE | 2023-12-20 13:33 | PC.NURSE ---
Admission assessment completed with Lillian from [facility]
--- NOTE | 2023-12-20 13:43 | PHA.MEDREC ---
Pharmacy Consult ? Medication Reconciliation Pharmacy has completed the medication reconciliation. [facility] Pharm[facility] contacted to confirm meds and spoke with patient utilizing [employer] [facility]. Patient takes Remeron 22.5 mg PM. Pt not taking betamethasone, pantoprazole, lamictal.
[2023-12-20] MEDS: Lactated Ringers 1,000 ML 100 ML IVCONT (14:10)
[2023-12-20] MEDS: Metoclopramide HCl 10 MG TABLET PO ×3 (14:42→20:10)
[2023-12-20] MEDS: ceFAZolin Sodium/Dextrose,Iso 2 GM/50 ML PIGGYBACK IV (14:47)
[2023-12-20] MEDS: HYDROmorphone HCl 0.5 MG/0.5 ML SYRINGE 0.25 MG IVPUSH (15:59)
--- NOTE | 2023-12-20 16:23 | P.PNIM_ITS ---
Subjective Subjective Date of Service: 12/20/23 Review of Systems Denies any recent fever chills or decrease in appetite respiratory denies any shortness of breath or cough cardiovascular denied chest pain gastrointestinal denies any dysphagia abdominal pain nausea vomiting or diarr hea genitourinary denies any dysuria frequency or hematuria musculoskeletal surgical neuropsych denies any weakness or seizures all other systems reviewed are negative Physical Exam Vital Signs: Vital Signs: Last Vital Signs Temp 97.3 F 12/20/23 14:47 Pulse 58 12/20/23 14:47 Resp 16 12/20/23 14:47 BP 129/68 12/20/23 14:47 Pulse Ox 99 12/20/23 14:47 O2 Del Method Room Air 12/20/23 14:47 O2 Flow Rate 2 12/20/23 12:41 BMI result Body Mass Index 26.4 Objective Data Active Medications Acetaminophen (Acetaminophen 325 Mg Tablet) 650 mg PO Q6H PRN PRN Reason: Pain, Mild (Pain Scale 1-3) Albuterol Sulfate (Albuterol Sulfate 90 Mcg 8 Gm Inhaler) 2 puff INHALE Q4H PRN PRN Reason: dyspnea Albuterol Sulfate (Albuterol Sulfate (0.083%) 2.5 Mg/3 Ml Vial.Neb) 2.5 mg INHALE Q4H PRN PRN Reason: Shortness Of Breath Or Wheezing Aspirin (Aspirin 325 Mg Tablet) 325 mg PO BID [facility] Azelastine HCl (Azelastine Hcl Nasal 137 Mcg/[place] 30 Ml) 1 spray NOSTRIL-B DAILY [facility] Bisacodyl (Bisacodyl 5 Mg Tablet.Dr) 10 mg PO BEDTIME [facility] Celecoxib (Celecoxib 200 Mg Capsule) 200 mg PO BID [facility] Clonazepam (Clonazepam 1 Mg Tablet) 1 mg PO BID PRN PRN Reason: Anxiety Docusate Sodium (Docusate Sodium 100 Mg Capsule) 100 mg PO BID [facility] Famotidine (Famotidine 20 Mg Tablet) 40 mg PO BEDTIME [facility] Fluticasone Propionate (Fluticasone Propionate Nasal 16 Gm [place]) 2 spray NOSTRIL-B DAILY [facility] Fluticasone/Vilanterol (Fluticasone/Vilanterol 100/25 Blst.W.Dev) 1 puff INHALE RDAILY [facility] Hydromorphone HCl (Hydromorphone Hcl 0.5 Mg/0.5 Ml Syringe) 0.25 mg IVPUSH Q4H PRN; Protocol PRN Reason: Pain, Severe (Pain Scale 7-10) Last Admin: 12/20/23 15:59 Dose: 0.25 mg Documented By: ADAN Lactated Ringer's (Lr) 1,000 mls @ 100 mls/hr IVCONT .Q10H [facility] Last Admin: 12/20/23 14:10 Dose: 100 mls/hr Documented By: ADAN Loratadine (Loratadine 10 Mg Tablet) 10 mg PO DAILY [facility] Meclizine HCl (Meclizine Hcl 25 Mg Tablet) 25 mg PO TID PRN PRN Reason: dizziness Metoclopramide HCl (Metoclopramide Hcl 10 Mg Tablet) 10 mg PO QID [facility] Last Admin: 12/20/23 14:42 Dose: 10 mg Documented By: ADAN Mirtazapine (Mirtazapine 15 Mg Tablet) 22.5 mg PO BEDTIME [facility] Montelukast Sodium (Montelukast Sodium 10 Mg Tablet) 10 mg PO BEDTIME [facility] Non-Formulary Medication (Linaclotide [Linzess]) 290 mcg PO DAILY [facility] Omeprazole (Omeprazole 20 Mg Capsule.Dr) 20 mg PO BID@0630,1630 [facility] Ondansetron HCl (Ondansetron Hcl 4 Mg/2 Ml Vial) 4 mg IVPUSH Q8H PRN PRN Reason: Nausea and Vomiting Oxycodone HCl (Oxycodone Hcl Immed Release 5 Mg Tablet) 5 mg PO Q4H PRN PRN Reason: Pain, Moderate(Pain Scale 4-6) Oxycodone HCl (Oxycodone Hcl Er 10 Mg Tab.Er.12h) 10 mg PO BID [facility] Ropinirole HCl (Ropinirole Hcl 0.25 Mg Tablet) 0.25 mg PO BEDTIME [facility] Sodium Chloride (0.9 % Sodium Chloride Flush 3 Ml Syringe) 3 ml IVFLUSH QSHIFT [facility] Last Admin: 12/20/23 14:47 Dose: Not Given Documented By: ADAN Non-Admin Reason: IV Running Sumatriptan Succinate (Sumatriptan Succinate 100 Mg Tablet) 100 mg PO Q2H PRN PRN Reason: Migraine Headache Labs Labs: Laboratory Results - last 24 hr 12/20/23 07:37 Blood Type A Positive Antibody Screen NEGATIVE Quality Stroke Does the patient have a stroke diagnosis?: No
--- NOTE | 2023-12-20 16:34 | HO.PM.IMCN ---
History of Present Illness Data of Consult Service Date: 12/20/23 Primary Care Provider: Amelia Montalvo DO HPI 68-year-old woman admitted by Orthopedic surgery and is status post left total knee arthroplasty. Surgery was unremarkable. Patient has been able to eat and drink without any nausea or vomiting. Patient is hemodynamically stable. She has no acute medical complaints. Review of Systems Review of Systems: Denies any recent fever chills or decrease in appetite respiratory denies any shortness of breath or cough cardiovascular denied chest pain gastrointestinal denies any dysphagia abdominal pain nausea vomiting or diarrhea genitourinary denies any dysuria frequency or hematuria musculoskeletal denies any joint pain or swelling neuropsych denies any weakness or seizures all other systems reviewed are negative [facility] Medical History (Updated 12/20/23 @ 16:38 by Shyanne Garcia NP) COPD exacerbation Hypoxia Gastric pain Vaginal irritation History of revision of total replacement of right knee joint Lumbar radiculopathy Osteoarthritis GERD (gastroesophageal reflux disease) Small bowel motility disorder COPD (chronic obstructive pulmonary disease) Anxiety Family History Father Diabetes Mother Diabetes Osteoporosis HTN (hypertension) Sister Pancreas cancer Surgical History History of right knee joint replacement History of total right knee replacement History of ear surgery Hx of colonoscopy History of esophagogastroduodenoscopy (EGD) Social History Household Members: None Housing: Apartment Are you a primary child daycare worker to a significant other at home: No Do you presently have visiting nurse or other home services: No Alcohol intake: never Patient Tobacco Use Status: Former Tobacco user Tobacco use type: Cigarette Smoked in Last 30 Days: No e-Cigarette/Vaping Use: Never Used Patient Interested in Nicotine Replacement: No Patient Given Instructions on How to Stop Smoking: No Second Hand Smoke Exposure: No Use of substances other than those prescribed or required for medical reasons: No Currently Displaying Signs/Symptoms of Drug Intoxication Withdrawal: No Any prior treatment program specific to substance use: No Have you been hit, kicked, punched, or otherwise hurt by someone within the past year? 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 Uncoded 12/20/23 07:36 Tox,Adult BREATHING Active Medications: Current Medications Acetaminophen (Acetaminophen 325 Mg Tablet) 650 mg PO Q6H PRN PRN Reason: Pain, Mild (Pain Scale 1-3) Albuterol Sulfate (Albuterol Sulfate 90 Mcg 8 Gm Inhaler) 2 puff INHALE Q4H PRN PRN Reason: dyspnea Albuterol Sulfate (Albuterol Sulfate (0.083%) 2.5 Mg/3 Ml Vial.Neb) 2.5 mg INHALE Q4H PRN PRN Reason: Shortness Of Breath Or Wheezing Aspirin (Aspirin 325 Mg Tablet) 325 mg PO BID [facility] Azelastine HCl (Azelastine Hcl Nasal 137 Mcg/[place] 30 Ml) 1 spray NOSTRIL-B DAILY [facility] Bisacodyl (Bisacodyl 5 Mg Tablet.Dr) 10 mg PO BEDTIME [facility] Celecoxib (Celecoxib 200 Mg Capsule) 200 mg PO BID [facility] Clonazepam (Clonazepam 1 Mg Tablet) 1 mg PO BID PRN PRN Reason: Anxiety Docusate Sodium (Docusate Sodium 100 Mg Capsule) 100 mg PO BID [facility] Famotidine (Famotidine 20 Mg Tablet) 40 mg PO BEDTIME [facility] Fluticasone Propionate (Fluticasone Propionate Nasal 16 Gm [place]) 2 spray NOSTRIL-B DAILY [facility] Fluticasone/Vilanterol (Fluticasone/Vilanterol 100/25 Blst.W.Dev) 1 puff INHALE RDAILY [facility] Hydromorphone HCl (Hydromorphone Hcl 0.5 Mg/0.5 Ml Syringe) 0.25 mg IVPUSH Q4H PRN; Protocol PRN Reason: Pain, Severe (Pain Scale 7-10) Last Admin: 12/20/23 15:59 Dose: 0.25 mg Lactated Ringer's (Lr) 1,000 mls @ 100 mls/hr IVCONT .Q10H [facility] Last Admin: 12/20/23 14:10 Dose: 100 mls/hr Loratadine (Loratadine 10 Mg Tablet) 10 mg PO DAILY [facility] Meclizine HCl (Meclizine Hcl 25 Mg Tablet) 25 mg PO TID PRN PRN Reason: dizziness Metoclopramide HCl (Metoclopramide Hcl 10 Mg Tablet) 10 mg PO QID [facility] Last Admin: 12/20/23 14:42 Dose: 10 mg Mirtazapine (Mirtazapine 15 Mg Tablet) 22.5 mg PO BEDTIME [facility] Montelukast Sodium (Montelukast Sodium 10 Mg Tablet) 10 mg PO BEDTIME [facility] Non-Formulary Medication (Linaclotide [Linzess]) 290 mcg PO DAILY [facility] Omeprazole (Omeprazole 20 Mg Capsule.Dr) 20 mg PO BID@0630,1630 [facility] Ondansetron HCl (Ondansetron Hcl 4 Mg/2 Ml Vial) 4 mg IVPUSH Q8H PRN PRN Reason: Nausea and Vomiting Oxycodone HCl (Oxycodone Hcl Immed Release 5 Mg Tablet) 5 mg PO Q4H PRN PRN Reason: Pain, Moderate(Pain Scale 4-6) Oxycodone HCl (Oxycodone Hcl Er 10 Mg Tab.Er.12h) 10 mg PO BID [facility] Ropinirole HCl (Ropinirole Hcl 0.25 Mg Tablet) 0.25 mg PO BEDTIME [facility] Sodium Chloride (0.9 % Sodium Chloride Flush 3 Ml Syringe) 3 ml IVFLUSH QSHIFT [facility] Last Admin: 12/20/23 14:47 Dose: Not Given Sumatriptan Succinate (Sumatriptan Succinate 100 Mg Tablet) 100 mg PO Q2H PRN PRN Reason: Migraine Headache Home Medications ?Medication ?Instructions ?Recorded ?Confirmed ?Last Taken ?Type cholecalciferol (vitamin D3) 50 50 mcg PO DAILY 05/21/20 12/20/23 Unknown History mcg (2,000 unit) tablet cyanocobalamin (vitamin B-12) 1,000 mcg PO DAILY 05/21/20 12/20/23 Unknown History 1,000 mcg tablet loratadine 10 mg tablet 10 mg PO DAILY 05/21/20 12/20/23 Unknown History zafirlukast 20 mg tablet 20 mg PO BID 05/21/20 12/20/23 Unknown History albuterol sulfate 90 mcg/actuation 2 puff PO Q4H PRN dyspnea 11/28/20 12/20/23 Unknown History aerosol inhaler ropinirole 0.25 mg tablet 0.25 mg PO BEDTIME 02/09/22 12/20/23 Unknown History albuterol sulfate 2.5 mg/3 mL 2.5 mg inhalation Q4H PRN 03/02/22 12/20/23 Unknown History (0.083 %) solution for nebulization Shortness Of Breath Or Wheezing fluticasone 250 mcg-salmeterol 50 1 ea inhalation BID 03/02/22 12/20/23 12/20/23 06:00 History mcg/dose blistr powdr for inhalation sumatriptan succinate 100 mg tablet 100 mg PO Q2-4H PRN Migraine 03/10/22 12/20/23 Unknown History Headache fluticasone propionate 50 2 spray intranasal DAILY 03/31/22 12/20/23 Unknown History mcg/actuation nasal spray,suspension ibuprofen 400 mg tablet 400 mg PO Q6H PRN fever 10/21/22 12/20/23 Unknown History clonazepam 1 mg tablet 1 mg PO BID PRN Anxiety 11/25/22 12/20/23 Unknown History meclizine 25 mg tablet 25 mg PO TID PRN dizziness 02/04/23 12/20/23 Unknown History azelastine 137 mcg (0.1 %) nasal 1 spray intranasal DAILY 03/31/23 12/20/23 Unknown History spray aerosol multivitamin-iron sulfate 15 1 tab PO DAILY 03/31/23 12/20/23 Unknown History mg-folic acid 400 mcg tablet (Tab-A-Aurea Multivitamin w-iron) ondansetron 4 mg disintegrating 4 mg PO Q8H 05/12/23 12/20/23 Unknown History tablet mirtazapine 15 mg tablet 22.5 mg PO BEDTIME 05/16/23 12/20/23 Unknown History calcium polycarbophil 625 mg 625 mg PO DAILY 05/18/23 12/20/23 Unknown History tablet (Fiber-Lax) alendronate 70 mg tablet 70 mg PO QWEEK 11/16/23 12/20/23 Unknown History calcium citrate 200 mg 2 tab PO BID 11/16/23 12/20/23 Unknown History calcium-vitamin D3 6.25 mcg (250 unit) tablet (Edson Calcium-Vitamin D3) diclofenac sodium 1 % topical gel 2 g topical QID PRN Pain 12/20/23 12/20/23 Unknown History (Voltaren Arthritis Pain) Physical Exam Vital Signs and Narrative: Vital Signs: Last Vital Signs Temp 97.3 F 12/20/23 14:47 Pulse 58 12/20/23 14:47 Resp 16 12/20/23 14:47 BP 129/68 12/20/23 14:47 Pulse Ox 99 12/20/23 14:47 O2 Del Method Room Air 12/20/23 14:47 O2 Flow Rate 2 12/20/23 12:41 BMI result Body Mass Index 26.4 Appearing in no acute distress head is normocephalic atraumatic eyes pupils are PERRLA sclera is anicteric mouth throat mucous membranes are intact and moist neck is supple no lymphadenopathy, no JVD noted lung sounds are clear to auscultation heart regular rate rhythm, clear S1, S2 positive bowel sounds, abdomen is soft, nontender neuro patient is alert x3, no focal deficits Left knee surgical dressing intact, surgical incision not visualized Results Labs Labs: Laboratory Results - last 24 hr 12/20/23 07:37 Blood Type A Positive Antibody Screen NEGATIVE Assessment and Plan (1) Osteoarthritis of left knee: Status: Acute Plan 68-year-old woman status post left total knee arthroplasty Left total knee arthroplasty Management as per surgical team Pain management Asthma No exacerbation Continue albuterol inhalers as needed Restless legs syndrome Continue repair now GERD Continue PPI DVT prophylaxis with full-dose aspirin Full code Medical consultation complete. Will sign off
[2023-12-20] MEDS: bisacodyL 5 MG TABLET.DR 10 MG PO (17:43)
[2023-12-20] MEDS: Omeprazole 20 MG CAPSULE.DR PO (17:43)
[2023-12-20] MEDS: oxyCODONE HCl Immed Release 5 MG TABLET PO (17:43)
[2023-12-20] MEDS: rOPINIRole HCL 0.25 MG TABLET PO (20:10)
[2023-12-20] MEDS: oxyCODONE HCl ER 10 MG TAB.ER.12H PO (20:11)
[2023-12-20] MEDS: Famotidine 20 MG TABLET 40 MG PO (20:11)
[2023-12-20] MEDS: Docusate Sodium 100 MG CAPSULE PO (20:11)
[2023-12-20] MEDS: Montelukast Sodium 10 MG TABLET PO (20:11)
[2023-12-20] MEDS: Celecoxib 200 MG CAPSULE PO (20:11)
[2023-12-20] MEDS: Mirtazapine 15 MG TABLET 22.5 MG PO (20:12)
[2023-12-20] MEDS: 0.9 % Sodium Chloride Flush 3 ML SYRINGE IVFLUSH (20:14)
[2023-12-21] VITALS (7 sets, daily range): BP systolic 101–136; BP diastolic 57–77; PULSE 63–101; RESP 16–18; TEMP 36.4–37.2; O2SAT 93–95
[2023-12-21] MEDS: Lactated Ringers 1,000 ML 100 ML IVCONT ×3 (00:21→21:08)
[2023-12-21] MEDS: HYDROmorphone HCl 0.5 MG/0.5 ML SYRINGE 0.25 MG IVPUSH ×3 (00:22→16:31)
[2023-12-21] MEDS: Omeprazole 20 MG CAPSULE.DR PO ×2 (05:43→16:31)
[2023-12-21 06:32] LABS: MANUAL DIFF FLAG NO
[2023-12-21 06:56] LABS: Basophils Percent Auto 0.2 % (0-2); Hematocrit 35.8 % (37.0-47.0); Hemoglobin 11.3 g/dl (12.0-16.0); Imm Gran Abs Auto 0.07 X10*3/uL (0.00-0.03); Imm Gran Pct Auto 0.6 % (0.0-0.4); Lymphocytes Percent Auto 8.8 % (20-40); Mean Corpuscular HGB Conc 31.6 g/dl (31.0-35.0); Mean Corpuscular Hemoglobin 27.5 pg (27.0-33.0); Mean Corpuscular Volume 87.1 fL (80.0-98.0); Mean Platelet Volume 9.1 fL (9.4-12.3); Monocytes Percent Auto 8.9 % (2-11); Neutrophils Absolute Auto 9.3 x10*3/uL (2.0-8.3); Neutrophils Percent Auto 81.5 % (45-73); Platelet Count 299 X10*3/uL (160-400); Red Blood Count 4.11 X10*6/uL (4.20-5.50); Red Cell Distribution Width 14.6 % (11.0-16.0); White Blood Count 11.5 X10*3/uL (4.8-10.8)
[2023-12-21 07:02] LABS: Anion Gap 12 (12-20); Blood Urea Nitrogen 21 mg/dL (9-16); Calcium 8.6 mg/dL (8.4-10.2); Carbon Dioxide 25 mmol/L (22-29); Chloride 110 mmol/L (96-108); Creatinine Clr Calc Pharmacy 76.9; Estimated Glomerular Filt Rate > 60; Glucose Fasting 136 mg/dL (60-99); Potassium 4.6 mmol/L (3.3-5.1); Sodium 142 mmol/L (135-145)
[2023-12-21] MEDS: Fluticasone/Vilanterol 100/25 BLST.W.DEV 1 PUFF INHALE (07:29)
[2023-12-21] MEDS: 0.9 % Sodium Chloride Flush 3 ML SYRINGE IVFLUSH (07:33)
--- NOTE | 2023-12-21 07:54 | PM.PNORT ---
Subjective Subjective Date of Service: 12/21/23 Interval history: POD1 s/p LTKA Patient is resting in bed comfortably No overnight events Patient reports 8-910 pain No additional complaints Physical Exam Vital Signs: Vital Signs: Last Vital Signs Temp 98.9 F 12/21/23 07:27 Pulse 66 12/21/23 07:33 Resp 18 12/21/23 07:33 BP 109/60 12/21/23 07:27 Pulse Ox 93 12/21/23 07:27 O2 Del Method Room Air 12/21/23 07:27 O2 Flow Rate 2 12/20/23 12:41 BMI result Body Mass Index 26.4 Const: General: cooperative, healthy appearing and no acute distress Resp: Effort & Inspection: normal respiratory effort and able to speak in complete sentences Cardio: Rate: regular rate Peripheral pulses: Peripheral pulses 2+ throughout GI: Palpation (GI): Soft to palpation Skin: Lesions: no lesions Rashes: no rashes Extrem: Other: left knee dressing is c/d/i. Able to dorsi/plantar flex. Calf is supple and nontender. Sensation intact. Pedal pulse intact. Procedures Date of Service Date of Service: 12/21/23 Progress Note: A&P Assessment and plan (1) Status post total knee replacement, left: Status: Acute Plan Continue pain mgmnt Begin ASA for dvt ppx begin PT for LTKA Dispo planning-PT, pain mgmnt Patient will need continued stay for pain management and additional physical therapy Time Spent With Patient Time: Total time managing care of this patient today ____ minutes. Quality Stroke Does the patient have a stroke diagnosis?: No VTE Prior VTE?: No VTE Risk Level:: Medical - moderate - high VTE Device Contraindication: N/A - Device Ordered VTE Drug Contraindication: N/A - Med Ordered
[2023-12-21] MEDS: oxyCODONE HCl ER 10 MG TAB.ER.12H PO ×2 (08:53→21:10)
[2023-12-21] MEDS: Celecoxib 200 MG CAPSULE PO ×2 (08:58→21:09)
[2023-12-21] MEDS: Azelastine HCl Nasal 137 MCG/Spray 30 ML 1 SPRAY NOSTRIL-B (08:58)
[2023-12-21] MEDS: Metoclopramide HCl 10 MG TABLET PO ×4 (08:58→21:09)
[2023-12-21] MEDS: Loratadine 10 MG TABLET PO (08:58)
[2023-12-21] MEDS: Aspirin 325 MG TABLET PO ×2 (08:58→21:11)
[2023-12-21] MEDS: Docusate Sodium 100 MG CAPSULE PO ×2 (08:58→21:10)
[2023-12-21] MEDS: Fluticasone Propionate Nasal 16 GM SPRAY 2 SPRAY NOSTRIL-B (08:59)
[2023-12-21] MEDS: oxyCODONE HCl Immed Release 5 MG TABLET PO ×2 (10:50→14:40)
--- NOTE | 2023-12-21 12:29 | MHC.CM.PN ---
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
--- NOTE | 2023-12-21 15:26 | HO.POSTANES ---
Post Anesthesia Evaluation Post Anesthesia Evaluation Date of Service: 12/21/23 Vital Signs: Vital Signs Temp Pulse Resp BP Pulse Ox O2 Del Method 12/21/23 15:15 97.5 F 78 16 136/77 93 Room Air 12/21/23 13:27 66 12/21/23 08:03 66 12/21/23 07:33 66 18 12/21/23 07:27 98.9 F 75 18 109/60 93 Room Air Anesthesia: Spinal Mental Status: Awake Pain Control: Satisfactory Nausea/Vomiting: None Hydration: Adequate Anesthesia-Related Issues: No Anes. Related Issues
[2023-12-21] MEDS: Famotidine 20 MG TABLET 40 MG PO (21:09)
[2023-12-21] MEDS: rOPINIRole HCL 0.25 MG TABLET PO (21:10)
[2023-12-21] MEDS: Mirtazapine 15 MG TABLET 22.5 MG PO (21:10)
[2023-12-21] MEDS: bisacodyL 5 MG TABLET.DR 10 MG PO (21:10)
[2023-12-21] MEDS: Montelukast Sodium 10 MG TABLET PO (21:10)
[2023-12-22 03:10] VITALS: BP 104/67; PULSE 93; RESP 16; TEMP 36.4; O2SAT 93
[2023-12-22 05:39] LABS: MANUAL DIFF FLAG NO
[2023-12-22 05:43] LABS: Basophils Percent Auto 0.2 % (0-2); Eosinophils Absolute Auto 0.2 X10*3/uL (0.0-0.4); Eosinophils Percent Auto 2.1 % (0-4); Hematocrit 30.8 % (37.0-47.0); Hemoglobin 9.9 g/dl (12.0-16.0); Imm Gran Abs Auto 0.21 X10*3/uL (0.00-0.03); Imm Gran Pct Auto 2.5 % (0.0-0.4); Lymphocytes Absolute Auto 2.1 X10*3/uL (1.2-4.9); Lymphocytes Percent Auto 24.3 % (20-40); Mean Corpuscular HGB Conc 32.1 g/dl (31.0-35.0); Mean Corpuscular Hemoglobin 27.9 pg (27.0-33.0); Mean Corpuscular Volume 86.8 fL (80.0-98.0); Mean Platelet Volume 8.9 fL (9.4-12.3); Monocytes Percent Auto 11.8 % (2-11); Neutrophils Percent Auto 59.1 % (45-73); Platelet Count 230 X10*3/uL (160-400); Red Blood Count 3.55 X10*6/uL (4.20-5.50); Red Cell Distribution Width 14.6 % (11.0-16.0); White Blood Count 8.5 X10*3/uL (4.8-10.8)
[2023-12-22] MEDS: Omeprazole 20 MG CAPSULE.DR PO (05:46)
[2023-12-22] MEDS: Lactated Ringers 1,000 ML 100 ML IVCONT (05:47)
[2023-12-22 06:01] LABS: Anion Gap 10 (12-20); Blood Urea Nitrogen 19 mg/dL (9-16); Calcium 8.1 mg/dL (8.4-10.2); Carbon Dioxide 27 mmol/L (22-29); Chloride 108 mmol/L (96-108); Creatinine Clr Calc Pharmacy 80.1; Estimated Glomerular Filt Rate > 60; Glucose Fasting 106 mg/dL (60-99); Sodium 141 mmol/L (135-145)
[2023-12-22] MEDS: Fluticasone/Vilanterol 100/25 BLST.W.DEV 1 PUFF INHALE (07:18)
[2023-12-22 07:19] VITALS: PULSE 78; RESP 18; O2SAT 95
[2023-12-22 08:00] VITALS: BP 120/80; PULSE 86; RESP 13; TEMP 36.1; O2SAT 92
[2023-12-22 08:59] VITALS: BP 120/80; PULSE 86; O2SAT 92
--- NOTE | 2023-12-22 09:11 | PM.PNORT ---
Subjective Subjective Date of Service: 12/22/23 Interval history: POD2 s/p LTKA Patient is resting in bed comfortably No overnight events Patient reports 8-03/20 pain No additional complaints Physical Exam Vital Signs: Vital Signs: Last Vital Signs Temp 97 F 12/22/23 08:00 Pulse 86 12/22/23 08:59 Resp 13 12/22/23 08:00 BP 120/80 12/22/23 08:59 Pulse Ox 92 12/22/23 08:59 O2 Del Method Room Air 12/22/23 08:00 O2 Flow Rate 2 12/20/23 12:41 BMI result Body Mass Index 26.4 Const: General: cooperative, healthy appearing and no acute distress Resp: Effort & Inspection: normal respiratory effort and able to speak in complete sentences Cardio: Rate: regular rate Peripheral pulses: Peripheral pulses 2+ throughout GI: Palpation (GI): Soft to palpation Skin: Lesions: no lesions Rashes: no rashes Extrem: Other: left knee dressing is c/d/i. Able to dorsi/plantar flex. Calf is supple and nontender. Sensation intact. Pedal pulse intact. Procedures Date of Service Date of Service: 12/22/23 Progress Note: A&P Assessment and plan (1) Status post total knee replacement, left: Status: Acute Plan Continue pain mgmnt Continue ASA for dvt ppx Continue PT for LTKA Dispo planning-PT, pain mgmnt Patient will need continued stay for pain management and additional physical therapy Time Spent With Patient Time: Total time managing care of this patient today ____ minutes. Quality Stroke Does the patient have a stroke diagnosis?: No VTE Prior VTE?: No VTE Risk Level:: Medical - moderate - high VTE Device Contraindication: N/A - Device Ordered VTE Drug Contraindication: N/A - Med Ordered
[2023-12-22] MEDS: oxyCODONE HCl ER 10 MG TAB.ER.12H PO (09:34)
[2023-12-22] MEDS: Aspirin 325 MG TABLET PO (09:35)
[2023-12-22] MEDS: Docusate Sodium 100 MG CAPSULE PO (09:35)
[2023-12-22] MEDS: oxyCODONE HCl Immed Release 5 MG TABLET PO (09:35)
[2023-12-22] MEDS: Metoclopramide HCl 10 MG TABLET PO ×2 (09:35→12:43)
[2023-12-22] MEDS: Loratadine 10 MG TABLET PO (09:35)
[2023-12-22] MEDS: Celecoxib 200 MG CAPSULE PO (09:35)
[2023-12-22] MEDS: Azelastine HCl Nasal 137 MCG/Spray 30 ML 1 SPRAY NOSTRIL-B (09:36)
[2023-12-22] MEDS: Fluticasone Propionate Nasal 16 GM SPRAY 2 SPRAY NOSTRIL-B (09:36)
--- NOTE | 2023-12-22 10:52 | MHC.CM.PN ---
IMM 12/22/23 Patient is discharged today. [facility] has received auth. BLS has been booked through [facility]. Trip authorization has been received from [facility]. A task has been sent to [employer]. supervisor adult education time has been scheduled for 1:30pm pick up driver.
[2023-12-22] MEDS: Meclizine HCl 25 MG TABLET PO (12:46)
== END 2023-12-22 14:30 | disposition skilled nursing facility (03) | DRG 470 ==
LOC: HO.SSSA 08:38 → HO.S3 12:23
PROVIDERS: Orthopaedic Surgery; Admitting Provider Physician Assistant; PCP Family Medicine; Visit Provider Physician Assistant
PROC: 0SRD0J9 Replacement of Left Knee Joint with Synthetic Substitute, Cemented, Open Approach (ICD-10-PCS; CPT 27447; principal; 2023-12-20 09:20)
DX: M17.12 Unilateral primary osteoarthritis, left knee (principal); J44.9 Chronic obstructive pulmonary disease, unspecified; G89.18 Other acute postprocedural pain; K21.9 Gastro-esophageal reflux disease without esophagitis; G25.81 Restless legs syndrome; Z87.891 Personal history of nicotine dependence; Z79.82 Long term (current) use of aspirin; Z79.51 Long term (current) use of inhaled steroids; Z79.899 Other long term (current) drug therapy
CPT/HCPCS: 36415; 73560; 80048; 85025; 86850; 86900; 86901; 87640; 87641; 88305; 88311; 94664; 97110; 97116; 97162; C1713; C1776; J0131; J0171; J0665; J0690; J1100; J1170; J2250; J2371; J2405; J2704; J3010; J7120

== ENCOUNTER → 2023-12-20 07:21 | Outpatient (BNV) | payer OTHER, SELFPAY | PROVIDERS: Admitting Provider Physician Assistant; PCP Family Medicine; Visit Provider Nurse Practitioner Acute Care | DX: K21.9 Gastro-esophageal reflux disease without esophagitis (principal); M17.12 Unilateral primary osteoarthritis, left knee | CPT/HCPCS: 99221 ==

== ENCOUNTER → 2023-12-20 07:21 | Outpatient (BNV) | payer OTHER, SELFPAY | PROVIDERS: Admitting Provider Physician Assistant; PCP Family Medicine; Visit Provider Orthopaedic Surgery | DX: Z47.1 Aftercare following joint replacement surgery (principal); Z96.652 Presence of left artificial knee joint | CPT/HCPCS: 27447; 99024 ==

== ENCOUNTER 2023-12-27 11:49 | Outpatient (AMB) | payer OTHER, SELFPAY ==
--- NOTE | 2023-12-27 11:59 | MHC.OFFVIS ---
Intake Visit Reasons: 2WK PO: L TKA w/NE 12/20/23-wound check Intake Note: Maida is a 68 year old female who presents today for a wound check s/p left TKA 12/20/23 NE. Allergies vancomycin [VANCOMYCIN] Allergy (Severe, Verified 12/27/23 12:01) REDNESS,RASH,SWELLING Tetanus & Diphtheria Tox,Adult Allergy (Severe, Uncoded 12/20/23 07:36) FEVER,DIFF.BREATHING HPI HPI 2WK PO: L TKA w/NE 12/20/23-wound check: Details: 68-year-old female, who is Malay speaking, presents in the office today for a wound check; 7 days status post left total knee arthroplasty, which was performed on 12/20/[address] Frost. The office received a call from [facility] nurse, Cha, asking about an appointment for the patient due to erythema, warmth to touch, and edema near the incision site. The patient was offered a same day appointment for evaluation of the left lower extremity. [facility] Medical History (Updated 12/23/23 @ 00:03 by José Ayala) Osteoarthritis of left knee COPD exacerbation Hypoxia Gastric pain Vaginal irritation History of revision of total replacement of right knee joint Lumbar radiculopathy Osteoarthritis GERD (gastroesophageal reflux disease) Small bowel motility disorder COPD (chronic obstructive pulmonary disease) Anxiety Surgical History (Updated 12/27/23 @ 12:03 by Angelique Perez) History of right knee joint replacement History of total right knee replacement History of ear surgery Hx of colonoscopy History of esophagogastroduodenoscopy (EGD) Family History Father Diabetes Mother Diabetes Osteoporosis HTN (hypertension) Sister Pancreas cancer Social History Household Members: None Housing: Apartment Are you a primary residential child care counselor to a significant other at home: No Do you presently have visiting nurse or other home services: No Alcohol intake: never Patient Tobacco Use Status: Former Tobacco user Tobacco use type: Cigarette e-Cigarette/Vaping Use: Never Used Second Hand Smoke Exposure: No Advance Directives Date on File: 11/28/20 service: No Current occupational status: unemployed and disabled 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 Mild erythema associated with ecchymosis scattered throughout the left knee. No warmth to touch. No active drainage. No signs of infections. ROM is 10-90 degrees. NVI. Assessment & Plan Assessment & Plan (1) Status post total knee replacement, left: Onset Date: ~12/20/23 Comment: Dr. Frost Code(s): Z96.652 - Presence of left artificial knee joint Category: Surgical Plan Ms. Mitchell is a 68-year-old female, who is Malay speaking, presents in the office today for a wound check; 7 days status post left total knee arthroplasty, which was performed on 12/20/[address] Frost. The office received a call from [facility]?s nurse, Cha, asking about an appointment for the patient due to erythema, warmth to touch, and edema near the incision site. The patient was offered a same day appointment for evaluation of the left lower extremity. During today?s encounter I changed the AquaCell dressing to an Acticoat dressing to help with skin irritation. She is to leave the dressing in place until her regularly scheduled post-operative appointment. She was educated on signs of infection, which are as follows but not limited to erythema, edema, drainage, or warmth. If she is to experience any of these symptoms, she must contact the office immediately or present to the ED. She was given an antibiotic at the longterm facility; however, she does not need this at this time and may discontinue the use of the antibiotic. Follow-up will be at her regularly scheduled post-operative appointment, or sooner if needed. Patient Instructions: Scribed by Angelique Perez medical billing and coding specialist, for Coutrney Quintana PA-C on 12/27/2023 at 11:53 am, EST. Coding Level of Care Code Global (68225) Diagnoses Status post total knee replacement, left Z96.652
== END 2023-12-27 12:30 | disposition home or self-care (01) ==
LOC: HO.HOS 11:49
PROVIDERS: PCP Family Medicine; Visit Provider Physician Assistant
DX: Z96.652 Presence of left artificial knee joint (principal)
CPT/HCPCS: 99024

== ENCOUNTER → 2023-12-27 11:49 | Outpatient (BNVA) | payer OTHER, SELFPAY | PROVIDERS: PCP Family Medicine; Visit Provider Physician Assistant | DX: Z47.1 Aftercare following joint replacement surgery (principal); Z96.652 Presence of left artificial knee joint | CPT/HCPCS: 99212 ==

== ENCOUNTER 2024-01-05 15:00 | Outpatient (AMB) | payer OTHER, SELFPAY ==
--- NOTE | 2024-01-05 15:03 | A.OFFVIS_ITS ---
Intake Visit Reasons: 2WK PO: L TKA w/NE 12/20/23 Intake Note: Maida is a 68 year old female who presents today for a post op appointment s/p L TKA w/NE 12/20/23. Patient reports she is having a lot of pain in the incision area. She is still having some swelling in her leg. Allergies vancomycin [VANCOMYCIN] Allergy (Severe, Verified 01/05/24 15:21) REDNESS,RASH,SWELLING Tetanus & Diphtheria Tox,Adult Allergy (Severe, Uncoded 12/20/23 07:36) FEVER,DIFF.BREATHING HPI HPI 2WK PO: L TKA w/NE 12/20/23: Details: 68-year-old female, who is Italian speaking, presents in the office today 16 days status post left total knee arthroplasty, which was performed on 12/20/[address] Frost. I last saw the patient in the office on 12/27/2023 for a wound check. She was [place] antibiotic [place] [facility] to arrival, however, was instructed that she may discontinue the medication due to no signs of infection.? ? Patient is currently at [facility]. ? ? [facility] Medical History (Updated 12/23/23 @ 00:03 by Joés Ayala) Osteoarthritis of left knee COPD exacerbation Hypoxia Gastric pain Vaginal irritation History of revision of total replacement of right knee joint Lumbar radiculopathy Osteoarthritis GERD (gastroesophageal reflux disease) Small bowel motility disorder COPD (chronic obstructive pulmonary disease) Anxiety Surgical History (Updated 12/27/23 @ 12:03 by Angelique Perze) History of right knee joint replacement History of total right knee replacement History of ear surgery Hx of colonoscopy History of esophagogastroduodenoscopy (EGD) Family History Father Diabetes Mother Diabetes Osteoporosis HTN (hypertension) Sister Pancreas cancer Social History Household Members: None Housing: Apartment Are you a primary primary care nurse practitioner to a significant other at home: No Do you presently have visiting nurse or other home services: No Alcohol intake: never Patient Tobacco Use Status: Former Tobacco user Tobacco use type: Cigarette e-Cigarette/Vaping Use: Never Used Second Hand Smoke Exposure: No Advance Directives Date on File: 11/28/20 service: No Current occupational status: unemployed and disabled 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 [place] are intact. No murphy rrounding erythema or drainage. No signs of infection. ROM is 20-90 degrees. Significant quad weakness.?NVI. Assessment & Plan Assessment & Plan (1) Status post total knee replacement, left: Onset Date: ~12/20/23 Comment: Dr. Frost Code(s): Z96.652 - Presence of left artificial knee joint Category: Surgical Plan Ms. Mitchell is a 68-year-old female, who is Italian speaking, presents in the office today 16 days status post left total knee arthroplasty, which was performed on 12/20/[address] Frost. I last saw the patient in the office on 12/27/2023 for a wound check. She was given an antibiotic at the [place] [facility] prior to arrival, however, was instructed that she may discontinue the medication due to no signs of infection.? ? Patient is currently at [facility]. ? ? [place] were removed, and steri-stripes were applied. The patient will continue to work with physical therapy at [facility]. She will transition to outpatient physical therapy after discharge from rehab. Follow-up will be in four weeks with Dr. Frost, or sooner if needed. Patient Instructions: Scribed by Angelique Perez medical anthropologist, for Courtney Quintana PA-C on 01/05/2024 at 3:04 pm, EST.? Coding Level of Care Code Global (69603) Diagnoses Status post total knee replacement, left Z96.652
== END 2024-01-05 15:21 | disposition home or self-care (01) ==
LOC: HO.HOS 15:00
PROVIDERS: PCP Family Medicine; Visit Provider Physician Assistant
DX: Z96.652 Presence of left artificial knee joint (principal)
CPT/HCPCS: 99024

== ENCOUNTER → 2024-01-05 15:00 | Outpatient (BNVA) | payer OTHER, SELFPAY | PROVIDERS: PCP Family Medicine; Visit Provider Physician Assistant | DX: Z47.1 Aftercare following joint replacement surgery (principal); Z96.652 Presence of left artificial knee joint | CPT/HCPCS: 99212 ==

== ENCOUNTER 2024-01-31 10:52 | Outpatient (REF) | payer OTHER, SELFPAY ==
[2024-01-31 13:11] LABS: MANUAL DIFF FLAG NO
[2024-01-31 13:27] LABS: Basophils Percent Auto 0.3 % (0-2); Eosinophils Absolute Auto 0.1 X10*3/uL (0.0-0.4); Eosinophils Percent Auto 2.2 % (0-4); Hematocrit 39.3 % (37.0-47.0); Hemoglobin 12.5 g/dl (12.0-16.0); Imm Gran Abs Auto 0.01 X10*3/uL (0.00-0.03); Imm Gran Pct Auto 0.2 % (0.0-0.4); Lymphocytes Absolute Auto 1.3 X10*3/uL (1.2-4.9); Lymphocytes Percent Auto 22.2 % (20-40); Mean Corpuscular HGB Conc 31.8 g/dl (31.0-35.0); Mean Corpuscular Hemoglobin 27.4 pg (27.0-33.0); Mean Corpuscular Volume 86.2 fL (80.0-98.0); Monocytes Absolute Auto 0.4 X10*3/uL (0.1-1.2); Monocytes Percent Auto 6.5 % (2-11); Neutrophils Absolute Auto 4.2 x10*3/uL (2.0-8.3); Neutrophils Percent Auto 68.6 % (45-73); Platelet Count 398 X10*3/uL (160-400); Red Blood Count 4.56 X10*6/uL (4.20-5.50); Red Cell Distribution Width 13.7 % (11.0-16.0)
[2024-01-31 13:32] LABS: Estimated Average Glucose 97 mg/dL
[2024-01-31 13:56] LABS: Alanine Aminotransferase 10 U/L (0-31); Albumin Level 4.4 g/dL (3.5-5.0); Alkaline Phosphatase 73 U/L (39-117); Anion Gap 15 (12-20); Aspartate Amino Transferase 14 U/L (5-31); Bilirubin Direct 0.1 mg/dL (0.0-0.5); Bilirubin Total 0.3 mg/dL (0.0-1.0); Blood Urea Nitrogen 18 mg/dL (9-16); C Reactive Protein 0.44 mg/dL (< or = 0.50); Calcium 10.1 mg/dL (8.4-10.2); Carbon Dioxide 24 mmol/L (22-29); Chloride 105 mmol/L (96-108); Cholesterol 180 mg/dL (<200); Estimated Glomerular Filt Rate > 60; Ferritin 39 ng/mL (10-250); Free T4 (Free Thyroxine) 0.94 ng/dL (0.71-1.85); Glucose Random 88 mg/dL (60-115); HDL Cholesterol 53 mg/dL (>40); Iron 39 mcg/dL (30-160); LDL Cholesterol Calculated 104 mg/dL (<100); Percent Iron Saturation 12 % (15-50); Potassium 4.2 mmol/L (3.3-5.1); Sodium 140 mmol/L (135-145); Thyroid Stimulating Hormone 1.65 uIU/mL (0.32-4.0); Total Iron Binding Capacity 323 mcg/dL (228-428); Total Protein 7.5 g/dL (6.5-8.0); Triglycerides 119 mg/dL (<150); Unsaturated Iron Binding 284 ug/dL
[2024-01-31 14:04] LABS: Folate 11.5 ng/mL (> or = 4.0); Vitamin B12 659 pg/mL (200-900)
[2024-01-31 22:11] LABS: Erythrocyte Sedimentation Rate 13 MM/HR (0-20)
[2024-02-01 08:51] LABS: HIV AB/AG Nonreactive (Nonreactive); HIV Num 1 0.05 S/CO (0.00-0.99)
[2024-02-03 05:54] LABS: TS Negative Control Passed; TS Panel A 0; TS Panel B 0; TS Positive Control Passed; TSpotTB Negative (Negative)
== END 2024-01-31 10:53 | disposition home or self-care (01) ==
LOC: HO.HHCL 10:52
PROVIDERS: Visit Provider Family Medicine
DX: Z00.00 Encounter for general adult medical examination without abnormal findings (principal); J30.9 Allergic rhinitis, unspecified; J44.9 Chronic obstructive pulmonary disease, unspecified; G43.909 Migraine, unspecified, not intractable, without status migrainosus; K21.9 Gastro-esophageal reflux disease without esophagitis; F41.9 Anxiety disorder, unspecified; D64.9 Anemia, unspecified; M25.562 Pain in left knee; G89.29 Other chronic pain; M81.8 Other osteoporosis without current pathological fracture; R53.83 Other fatigue
CPT/HCPCS: 36415; 80048; 80061; 80076; 82306; 82607; 82728; 82746; 83036; 83540; 84134; 84439; 84443; 85025; 85652; 86140; 86481; 87389

== ENCOUNTER 2024-02-01 11:59 | Outpatient (REF) | payer OTHER, SELFPAY ==
[2024-02-01 12:33] LABS: Appearance Urine Clear; Color Urine Yellow; Glucose Urine UA Negative (Negative); Leukocyte Esterase Urine Negative (Negative); Nitrite Urine Negative (Negative); Urine Blood Negative (Negative); Urine Ketones Negative (Negative); Urine Protein Trace mg/dL (Neg-Trace)
[2024-02-01 12:59] LABS: Bacteria Urine None Seen (None Seen); Hyaline Casts Urine 0-2 /LPF (0-2); RBC Urine 0-2 /HPF (0-2); Squamous Epithelial Cell Urine 0-2 /HPF (0-2); WBC Urine 0-5 /HPF (0-5)
== END 2024-02-01 12:00 | disposition home or self-care (01) ==
LOC: HO.HHCLNP 11:59
PROVIDERS: Visit Provider Family Medicine
DX: K21.9 Gastro-esophageal reflux disease without esophagitis (principal)
CPT/HCPCS: 81001; 87338

== ENCOUNTER 2024-02-02 09:55 | Outpatient (AMB) | payer OTHER, SELFPAY ==
--- NOTE | 2024-02-02 09:57 | A.OFFVIS_ITS ---
Intake Visit Reasons: 6WK PO: L TKA w/NE 12/20/23 Intake Note: Maida is a 68 year old female who presents today 6 weeks post operatively S/P Left TKA 12/20/23. Patient reports she is doing well but is having continued pain on the anterior aspect of her bilateral knees. She continues to work with PT and says she is noticing improvement in her symptoms. She has tried and failed Tylenol for relief. She would like to know if she needs to continue the aspirin and would need a refill. Allergies vancomycin [VANCOMYCIN] Allergy (Severe, Verified 02/02/24 10:03) REDNESS,RASH,SWELLING Tetanus & Diphtheria Tox,Adult Allergy (Severe, Uncoded 02/02/24 10:03) FEVER,DIFF.BREATHING HPI HPI 6WK PO: L TKA w/NE 12/20/23: Details: Madia is a 68 year old female who presents today 6 weeks post operatively S/P Left TKA 12/20/23. Patient reports she is doing well but is having continued pain on the anterior aspect of her bilateral knees. She continues to work with PT and says she is noticing improvement in her symptoms. She has tried and failed Tylenol for relief. She would like to know if she needs to continue the aspirin and would need a refill. FORMERLY [facility] Medical History Osteoarthritis of left knee COPD exacerbation Hypoxia Gastric pain Vaginal irritation History of revision of total replacement of right knee joint Lumbar radiculopathy Osteoarthritis GERD (gastroesophageal reflux disease) Small bowel motility disorder COPD (chronic obstructive pulmonary disease) Anxiety Surgical History History of right knee joint replacement History of total right knee replacement History of ear surgery Hx of colonoscopy History of esophagogastroduodenoscopy (EGD) Family History Father Diabetes Mother Diabetes Osteoporosis HTN (hypertension) Sister Pancreas cancer Social History Household Members: None Housing: Apartment Are you a primary health care legal assistant to a significant other at home: No Do you presently have visiting nurse or other home services: No Alcohol intake: never Patient Tobacco Use Status: Former Tobacco user Tobacco use type: Cigarette e-Cigarette/Vaping Use: Never Used Second Hand Smoke Exposure: No Advance Directives Date on File: 11/28/20 service: No Current occupational status: unemployed and disabled 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 Frost Code(s): Z96.652 - Presence of left artificial knee joint Category: Surgical Plan: 6 weeks post op doing well F/u 6 weeks cont PT November d/c ASA Coding Level of Care Code Global (98482) Diagnoses Status post total knee replacement, left Z96.652
== END 2024-02-02 10:13 | disposition home or self-care (01) ==
PROVIDERS: PCP Family Medicine; Visit Provider Orthopaedic Surgery
DX: Z96.652 Presence of left artificial knee joint (principal)
CPT/HCPCS: 99024

== ENCOUNTER → 2024-02-02 09:55 | Outpatient (BNVA) | payer OTHER, SELFPAY | PROVIDERS: PCP Family Medicine; Visit Provider Orthopaedic Surgery | DX: Z96.652 Presence of left artificial knee joint (principal) | CPT/HCPCS: 99212 ==

== ENCOUNTER 2024-02-27 12:00 | Outpatient (RCR) | payer OTHER, SELFPAY ==
[2024-01-23 14:48] VITALS: BP 112/67; PULSE 84
--- NOTE | 2024-01-23 15:48 | MHC.PT.EP ---
[facility] [place] Office [place] [facility] [place] [facility] [address] Sunday Pember[place] [address] [phone] F: [phone] F: [phone] F: [phone] F: [phone] Physical Therapy Plan of Care Date of Evaluation: 01/23/24 Date of Surgery: 12/20/23 Diagnosis: L TKA on 12/20/23 (RL) Assessment: pt is a 68 y/o female presenting to physical therapy w/ referring diagnosis of L TKA DOS 12/20/23. pt has had seemingly difficult post-operative management up to this point. She went to [facility] for an unknown amount of time, had no home PT after that and presents today w/ significant stiffness and weakness of the operative side. pt overall not feeling well and may be coming down w/ illness. Encouraged her to contact her PCP if she continues to feel this way tomorrow. pt verbalized understanding. Impairments include pain, decreased range of motion, decreased strength, impaired functional mobility, impaired postural awareness, and altered ambulation mechanics. pt is a fair candidate for skilled PT due to age, potential remediation of impairments, typical disease/condition progression and prognosis, comorbidities, and motivation. pt would benefit from skilled PT intervention to provide a tailored strengthening and stretching exercise program, functional training, gait training, postural re-training, neuromuscular re-education, modalities as needed for pain, equipment safety demonstration.70 Frequency and Duration: The patient will be seen 2x/wk for 8 wks Short Term Goals: pt will be I w/ HEP to promote self-management of condition. pt will improve L knee extension by 10 degrees to remediate gait impairments on even ground. Parking Station Attendant Goals: pt will report a statistically significant improvement in self-reported outcome measure, LEFI, to promote return to PLOF. pt will ambulate >1000' w/ LRAD to promote ease in navigation for doctor's appts. Treatment Plan: Modalities to reduce pain, spasms and effusion. Manual therapy to restore motion and function. Therapeutic exercise to improve strength and flexibility. Neuromuscular re-education for posture and balance. Therapeutic activities to return to functional activities of daily living. Electronically signed by: Dina Queens PT, DPT Please sign and return to therapist. Thank you for your referral.
--- NOTE | 2024-03-13 15:32 | MHC.PT.DC ---
[facility] [place] [facility] [place] [facility] [place] Office [address] Sunday [place] [address] [phone] F: [phone] F: [phone] F: [phone] F: [phone] Physical Therapy Discharge Report Diagnosis: L TKA on 12/20/23 (RL) Date of Surgery: 12/20/23 Date of Evaluation: 01/23/24 Date of Discharge: 03/13/24 Treatments to Date: 8 Cancellations to Date: 5 No Shows to Date: 1 Discharge Status: Visit Non-compliance Discharge Summary: The patient overall had poor compliance with PT. Despite being educated in Sinhala with biomedical engineer the importance of regular exercise and stretching/ranging her knee she would return admitting to not doing her exercises at home. She would always ask why she was still having pain and this therapist as well as BILINGUAL MIDDLE SCHOOL TEACHER would reiterate that she needs to be more consistent with her exercises. She would have better days when she did her program at home and icing her knee as well. She has not followed up with any appointments in over two weeks and is being discharged for non-compliance. Electronically signed by: Dina Dempsey PT, DPT Please sign and return to therapist. Thank you for your referral.
== END 2024-03-13 15:33 | disposition home or self-care (01) ==
LOC: HO.PT 12:00
PROVIDERS: PCP Family Medicine; Visit Provider Physician Assistant
DX: Z96.652 Presence of left artificial knee joint (principal)
CPT/HCPCS: 97110; 97162; 97530; 97535

== ENCOUNTER 2024-03-05 11:35 | Outpatient (REF) | payer OTHER, SELFPAY ==
--- NOTE | ~2024-03-05 | XR_ITS ---
EXAMINATION: XR KNEE, LEFT CLINICAL INFORMATION: Left knee pain and swelling. Total knee arthroplasty. COMPARISON: Left knee radiographs dated 12/20/2023. TECHNIQUE: Four views of the left knee. FINDINGS: Total left knee arthroplasty in expected anatomic alignment. No hardware fracture. No osseous fracture. No dislocation. No perihardware lucency to suggest loosening or infection. Trace joint effusion. XR/XR knee LT 4V IMPRESSION: Total left knee arthroplasty without evidence of complication. Trace joint effusion. Electronically signed by: Silas Cline MD 03/09/2024 10:34 AM EDT
== END 2024-03-05 11:36 | disposition home or self-care (01) ==
LOC: HO.HHCX 11:35
PROVIDERS: Visit Provider Family Medicine
DX: Z96.652 Presence of left artificial knee joint (principal); G89.29 Other chronic pain
CPT/HCPCS: 73564

== ENCOUNTER 2024-03-13 13:37 | Outpatient (AMB) | payer OTHER, SELFPAY ==
[2024-03-13 14:05] VITALS: BP 122/68; PULSE 70; O2SAT 98; BMI 25.5
--- NOTE | 2024-03-13 14:05 | MHC.OFFVIS ---
Vital Signs 03/13/24 14:05 Height 5 ft 8 in Weight 167 lb 8.821 oz BMI 25.5 BP 122/68 Blood Pressure Location Lt brachial Position Sitting Pulse 70 Pulse Source Pulse Oximeter Pulse Oximetry (%) 98 Oxygen Delivery Method Room Air Intake Visit Reasons: asthma Intake Note: pt is here for follow up and states she feels chest tightness and coughing phlegm green in color, and this has been happening for a while. Physical Therapy Coordinator Required: Yes Physical Therapy Coordinator Name: Adiel [id number] Allergies vancomycin [VANCOMYCIN] Allergy (Severe, Verified 03/13/24 14:37) REDNESS,RASH,SWELLING Tetanus & Diphtheria Tox,Adult Allergy (Severe, Uncoded 03/13/24 14:37) FEVER,DIFF.BREATHING Medication List - Last Reconciled 03/13/24 by Jared Langley MD acetaminophen 650 mg (2 x 325 mg) PO Q6H PRN 30 days albuterol sulfate 90 mcg/actuation 2 puffs PO Q4H PRN albuterol sulfate 2.5 mg inhalation Q4H PRN alendronate 70 mg PO QWEEK amoxicillin 2,000 mg (4 x 500 mg) PO ONCE 1 day aspirin 325 mg PO BID 42 days azelastine 1 spray intranasal DAILY bisacodyl 10 mg (2 x 5 mg) PO BEDTIME calcium citrate-vitamin D3 200 mg-6.25 mcg (250 unit) (Hettinger Calcium) 2 tabs PO BID calcium polycarbophil (Fiber-Lax) 625 mg PO DAILY celecoxib 200 mg PO BID 30 days cholecalciferol (vitamin D3) 50 mcg PO DAILY clonazepam 1 mg PO BID PRN cyanocobalamin (vitamin B-12) 1,000 mcg PO DAILY diclofenac sodium 1% (Voltaren Arthritis Pain) 2 grams topical QID PRN docusate sodium 100 mg PO BID famotidine 40 mg PO BEDTIME fluticasone propion-salmeterol 250-50 mcg/dose 1 ea inhalation BID fluticasone propionate 50 mcg/actuation 2 sprays intranasal DAILY ibuprofen 400 mg PO Q6H PRN linaclotide (Linzess) 290 mcg PO QAM 30 days loratadine 10 mg PO DAILY meclizine 25 mg PO TID PRN metoclopramide HCl (Reglan) 10 mg PO QID mirtazapine 22.5 mg PO BEDTIME multivit-iron sulf-folic acid 15 mg iron- 400 mcg (Tab-A-Aurea Multivitamin w-iron) 1 tab PO DAILY naproxen 500 mg PO BID PRN 10 days omeprazole 20 mg PO BID ondansetron 4 mg PO Q8H ropinirole 0.25 mg PO BEDTIME sumatriptan succinate 100 mg PO Q2-4H PRN walker Folding Front wheeled walker walker Folding Front wheeled walker zafirlukast 20 mg PO BID Do you need a note to return to daycare/school/sports/work: No HPI HPI asthma: Details: THIS 68 YEARS OLD CHINESE-SPEAKING FEMALE, COMES AFTER 4 MONTHS FOR HER ROUTINE FOLLOW-UP. SHE HAS CHRONIC ALLERGIC RHINITIS AND BRONCHIAL ASTHMA. SHE HAS BEEN NONSMOKER. SHE CONTINUES TO HAVE SOME NASAL CONGESTION WITH POSTNASAL DISCHARGE, WHICH CAUSES COUGH BUT WITHOUT MUCH EXPECTORATION. SHE GETS SHORT OF BREATH ON WALKING AROUND BUT DENIES ANY WHEEZING. SHE SAY IS THAT HER NEIGHBORS SMOKE. SHE EXPRESSES THAT SHE IS AFRAID OF HER COPD GETTING WORSE. SHE TENDS TO BE VERY ANXIOUS AND OVERLY CONCERNED ABOUT HER RESPIRATORY STATUS. EACH TIME SHE COMES FOR A VISIT SHE NEEDS LOT OF REASSURANCE. [facility]LY [facility] Medical History Osteoarthritis of left knee COPD exacerbation Hypoxia Gastric pain Vaginal irritation History of revision of total replacement of right knee joint Lumbar radiculopathy Osteoarthritis GERD (gastroesophageal reflux disease) Small bowel motility disorder COPD (chronic obstructive pulmonary disease) Anxiety Surgical History History of right knee joint replacement History of total right knee replacement History of ear surgery Hx of colonoscopy History of esophagogastroduodenoscopy (EGD) Family History Father Diabetes Mother Diabetes Osteoporosis HTN (hypertension) Sister Pancreas cancer Social History Household Members: None Housing: Apartment Are you a primary attending ambulatory care to a significant other at home: No Do you presently have visiting nurse or other home services: No Alcohol intake: never Patient Tobacco Use Status: Former Tobacco user Tobacco use type: Cigarette e-Cigarette/Vaping Use: Never Used Second Hand Smoke Exposure: No Advance Directives Date on File: 11/28/20 service: No Current occupational status: unemployed and disabled 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 Review of Systems Const All systems reviewed & are unremarkable except as noted in HPI and below Eyes Reports no additional complaints ENT Reports nasal congestion and Reports nasal discharge Card Denies chest pain, Denies irregular heart rhythm and Denies leg edema Resp Reports as per HPI GI Reports constipation Reports no additional complaints Musc Reports no additional complaints Skin/Breast Reports system reviewed and no additional complaints, except as documented Neuro Reports no additional complaints Psych Reports anxiety Physical Exam Vital Signs: Last Vital Signs Pulse 70 03/13/24 14:05 BP 122/68 03/13/24 14:05 Pulse Ox 98 03/13/24 14:05 Oxygen Delivery Method Room Air 03/13/24 14:05 BMI result Body Mass Index 25.5 Const General: comfortable, no acute distress, alert and awake Orientation/consciousness: patient oriented x3 HEENT Head: Yes normal to inspection General nose exam: No nasal polyps present, No nasal discharge present and Other nasal findings present (Mild chronic nasal congestion) Face and sinus: Yes sinuses nontender Mouth: oropharynx normal Throat: Yes posterior oropharynx normal Eyes General: appearance normal, both eyes and all related structures Neck Neck: Yes normal visual inspection, Yes no lymphadenopathy, Yes trachea midline and Yes no JVD Thyroid: Thyroid normal Chest Chest palpation & inspection: normal inspection of the chest, normal palpation of entire chest wall and no tenderness Resp Other: Percussion note is resonant, has good breath sounds on both sides. No audible wheezes rhonchi or crepitations. Cardio Palpation: normal PMI Rate: regular rate Rhythm: regular rhythm Heart sounds: no gallops and no murmurs Peripheral pulses: Peripheral pulses 2+ throughout GI Palpation (GI): Soft to palpation, nontender, No hepatosplenomegaly present and no masses Auscultation: normal bowel sounds Back/Spine/Pelvis Thoracic/Lumbar Spine: thoracic and lumbar spine normal to inspection Skin General skin exam: no rashes or lesions noted Neuro General: patient oriented x3 and no focal motor deficits Cranial nerves: Yes CN's II-XII intact bilaterally Extrem General: Yes normal to inspection, Yes no clubbing, cyanosis or edema and Yes no calf tenderness Psych Appearance: grossly normal and well kempt Speech and movement: Normal speech and movement present Affect: Anxious affect present Results Reviewed Results Reviewed: CHEST X-RAY IN MAY 2023 WAS UNREMARKABLE. COMPLETE PULMONARY FUNCTION TEST IN 2021 WAS NORMAL. SPIROMETRY IN THE OFFICE IN 2021 SHOWED ONLY SLIGHT DECREASE IN FEF 11/27/2074, SUGGESTING THAT SHE HAS ONLY MILD OBSTRUCTIVE AIRWAY DISORDER. Assessment & Plan Assessment & Plan (1) Allergic rhinitis: Onset Date: ~12/11/20 Comment: This is her chronic problem. Seems to be well controlled and stable at this time. But she continues to complain of nasal congestion with postnasal discharge and irritation Code(s): J30.9 - Allergic rhinitis, unspecified Category: Medical Plan: Zafirlukast 20 mg b.i.d. Flonase -50 2 spray in each nostril daily Azelastin 1 spray in each nostril daily (2) COPD (chronic obstructive pulmonary disease): Comment: This patient has only mild degree of obstructive disorder, which may be resultant from bronchial asthma over the past many years. Patient continues to be worried about her COPD getting worse. Code(s): J44.9 - Chronic obstructive pulmonary disease, unspecified Category: Medical Plan: Needs lot of reassurance. I have explained to her thoroughly that she really does not have any serious degree of asthma or COPD. Her ongoing cough and tight feeling in the chest is mainly resulting from ongoing allergy problem with some irritation in the throat and cough. Continue Advair 250-51 inhalation b.i.d. Advised to rinse the throat very thoroughly after using Advair. (3) Anxiety: Comment: Patient has an anxious personality, and worries about her somatic symptoms Code(s): F41.9 - Anxiety disorder, unspecified Category: Medical Plan: Needs lot of reassurance, which is provided on each visit. I think I will see her more frequently, like every 3 months. Coding Level of Care Code Est Pt Level 3 (49617) Diagnoses Allergic rhinitis J30.9 COPD (chronic obstructive pulmonary disease) J44.9 Anxiety F41.9
== END 2024-03-13 14:36 | disposition home or self-care (01) ==
PROVIDERS: PCP Family Medicine; Visit Provider Internal Medicine
DX: J30.9 Allergic rhinitis, unspecified (principal); J44.9 Chronic obstructive pulmonary disease, unspecified; F41.9 Anxiety disorder, unspecified
CPT/HCPCS: 99213

== ENCOUNTER → 2024-03-13 13:37 | Outpatient (BNVA) | payer OTHER, SELFPAY | PROVIDERS: PCP Family Medicine; Visit Provider Internal Medicine | DX: J44.9 Chronic obstructive pulmonary disease, unspecified (principal); J30.9 Allergic rhinitis, unspecified; F41.9 Anxiety disorder, unspecified | CPT/HCPCS: 99212 ==

== ENCOUNTER 2024-04-02 10:34 | Outpatient (REF) | payer OTHER, SELFPAY ==
--- NOTE | ~2024-04-02 | XR_ITS ---
EXAMINATION: XR CHEST CLINICAL INFORMATION: Cough for 2 weeks with weakness COMPARISON: Chest radiograph 05/24/2023 TECHNIQUE: 2 views of the chest were obtained. FINDINGS: There is new patchy consolidation in the right lower lobe. There is mild new elevation of the right hemidiaphragm with a likely subpulmonic effusion. Left lung is clear aside from some minimal linear atelectasis. Heart size normal. No evidence of CHF. XR/XR chest 2V IMPRESSION: New right lower lobe infiltrate with associated subpulmonic effusion. Findings are consistent with pneumonia Electronically signed by: Aryan Becerra MD 04/02/2024 12:18 PM EDT
== END 2024-04-02 10:35 | disposition home or self-care (01) ==
LOC: HO.HHCX 10:34
PROVIDERS: Visit Provider Nurse Practitioner Family
DX: R05.9 Cough, unspecified (principal)
CPT/HCPCS: 71046

== ENCOUNTER 2024-04-06 13:50 | Emergency (ER) | payer OTHER, SELFPAY ==
--- NOTE | ~2024-04-06 | XR_ITS ---
EXAMINATION: XR CHEST CLINICAL INFORMATION: Cough COMPARISON: Chest radiograph 04/02/2024 TECHNIQUE: 2 views of the chest were obtained. FINDINGS: The lungs are well-expanded. Again noted mild elevation of the right hemidiaphragm. Interval resolution of previously noted patchy consolidation in the right lower lobe. No new focal consolidation. No pleural effusions or pneumothorax. The cardiomediastinal silhouette is unchanged. Mild tortuosity of the descending thoracic aorta. Degenerative changes of thoracic spine. XR/XR chest 2V IMPRESSION: Interval resolution of previously noted patchy consolidation in the right lower lobe. No new consolidation. Electronically signed by: Familia Martin MD 04/06/2024 03:59 PM EDT
[2024-04-06 14:00] VITALS: BP 145/89; PULSE 83; O2SAT 94
--- NOTE | 2024-04-06 14:00 | ED_ITS ---
HPI - Weakness General Chief complaint: Dyspnea Stated complaint: RECENT DX PNEUMONIA ON ABX CONTINUED WEAKNESS Time Seen by Provider: 04/06/24 13:58 Source: patient Mode of arrival: ambulatory Limitations: no limitations History of Present Illness HPI Narrative: 68 year old female presents to the emergency department with weakness on antibiotics for pneumonia past medical history significant for left knee replac ement osteoarthritis carpal tunnel syndrome back pain acid reflux chronic constipation anxiety and COPD. Who presents emergency room complaining of shortness of breath patient denies fevers chills cough she states she was started on antibiotics by her primary care doctor but states she still feels weak and tired. Patient still wheezing on arrival has no falls or injuries MD Complaint: generalized weakness Related Data Home Medications ?Medication ?Instructions ?Recorded ?Confirmed cholecalciferol (vitamin D3) 50 50 mcg PO DAILY 05/21/20 12/20/23 mcg (2,000 unit) tablet cyanocobalamin (vitamin B-12) 1,000 mcg PO DAILY 05/21/20 12/20/23 1,000 mcg tablet loratadine 10 mg tablet 10 mg PO DAILY 05/21/20 12/20/23 zafirlukast 20 mg tablet 20 mg PO BID 05/21/20 12/20/23 albuterol sulfate 90 mcg/actuation 2 puff PO Q4H PRN dyspnea 11/28/20 12/20/23 aerosol inhaler ropinirole 0.25 mg tablet 0.25 mg PO BEDTIME 02/09/22 12/20/23 albuterol sulfate 2.5 mg/3 mL 2.5 mg inhalation Q4H PRN 03/02/22 12/20/23 (0.083 %) solution for nebulization Shortness Of Breath Or Wheezing fluticasone 250 mcg-salmeterol 50 1 ea inhalation BID 03/02/22 12/20/23 mcg/dose blistr powdr for inhalation sumatriptan succinate 100 mg tablet 100 mg PO Q2-4H PRN Migraine 03/10/22 12/20/23 Headache fluticasone propionate 50 2 spray intranasal DAILY 03/31/22 12/20/23 mcg/actuation nasal spray,suspension ibuprofen 400 mg tablet 400 mg PO Q6H PRN fever 10/21/22 12/20/23 clonazepam 1 mg tablet 1 mg PO BID PRN Anxiety 11/25/22 12/20/23 meclizine 25 mg tablet 25 mg PO TID PRN dizziness 02/04/23 12/20/23 azelastine 137 mcg (0.1 %) nasal 1 spray intranasal DAILY 03/31/23 12/20/23 spray multivitamin-iron sulfate 15 1 tab PO DAILY 03/31/23 12/20/23 mg-folic acid 400 mcg tablet (Tab-A-Aurea Multivitamin w-iron) ondansetron 4 mg disintegrating 4 mg PO Q8H 05/12/23 12/20/23 tablet mirtazapine 15 mg tablet 22.5 mg PO BEDTIME 05/16/23 12/20/23 calcium polycarbophil 625 mg 625 mg PO DAILY 05/18/23 12/20/23 tablet (Fiber-Lax) alendronate 70 mg tablet 70 mg PO QWEEK 11/16/23 12/20/23 calcium citrate 200 mg 2 tab PO BID 11/16/23 12/20/23 calcium-vitamin D3 6.25 mcg (250 unit) tablet ([place] Calcium) diclofenac sodium 1 % topical gel 2 g topical QID PRN Pain 12/20/23 12/20/23 (Voltaren Arthritis Pain) Previous Rx's ?Medication ?Instructions ?Recorded naproxen 500 mg tablet 500 mg PO BID PRN pain 10 days #20 05/26/23 tabs bisacodyl 5 mg tablet,delayed 10 mg (2 x 5 mg) PO BEDTIME #60 09/22/23 release tabs docusate sodium 100 mg capsule 100 mg PO BID #60 caps 11/16/23 famotidine 40 mg tablet 40 mg PO BEDTIME #30 tabs 11/16/23 linaclotide 290 mcg capsule 290 mcg PO QAM 30 days #30 caps 11/16/23 (Linzess) metoclopramide HCl 10 mg tablet 10 mg PO QID #120 tabs 11/16/23 (Reglan) omeprazole 20 mg capsule,delayed 20 mg PO BID #60 caps 11/16/23 release walker #1 ea 12/14/23 walker #1 ea 12/15/23 acetaminophen 325 mg tablet 650 mg (2 x 325 mg) PO Q6H PRN 12/21/23 Pain, Mild (Pain Scale 1-3) 30 days #240 tabs aspirin 325 mg tablet 325 mg PO BID 42 days #84 tabs 12/21/23 celecoxib 200 mg capsule 200 mg PO BID 30 days #60 caps 12/21/23 amoxicillin 500 mg tablet 2,000 mg (4 x 500 mg) PO ONCE take 02/23/24 4 tabs by mouth 1 hour prior to dental ppx 1 day #4 tabs Allergies Allergy/AdvReac Type Severity Reaction Status Date / Time vancomycin [VANCOMYCIN] Allergy Severe REDNESS,ANDI Verified 04/06/24 14:27 H,SWELLING Tetanus & Diphtheria Allergy Severe FEVER,DIFF. Uncoded 04/06/24 14:27 Tox,Adult BREATHING Review of Systems Review of Systems: Review of systems: General: Patient denies any fever chills recent illness or falls Musculoskeletal: Denies back pain or body aches or other injuries HEENT: denies headache, runny nose, ear pain Respiratory: shortness of breath, cough Cardiovascular: no chest pain or palpitations : denies dysuria, frequency Abdomen: no nausea vomiting denies abdominal pain Extremities: no swelling, no pain Skin: no diaphoresis Yes all other systems are reviewed and are negative PMF Past Medical History Medical History Osteoarthritis of left knee COPD exacerbation Hypoxia Gastric pain Vaginal irritation History of revision of total replacement of right knee joint Lumbar radiculopathy Osteoarthritis GERD (gastroesophageal reflux disease) Small bowel motility disorder COPD (chronic obstructive pulmonary disease) Anxiety Surgical History History of right knee joint replacement History of total right knee replacement History of ear surgery Hx of colonoscopy History of esophagogastroduodenoscopy (EGD) Family History Family History Father Diabetes Mother Diabetes Osteoporosis HTN (hypertension) Sister Pancreas cancer Social History Social History Household Members: None Housing: Apartment Are you a primary child care leader to a significant other at home: No Do you presently have visiting nurse or other home services: No Alcohol intake: never Patient Tobacco Use Status: Former Tobacco user Tobacco use type: Cigarette e-Cigarette/Vaping Use: Never Used Second Hand Smoke Exposure: No Advance Directives: Yes Advance Directives on File: Yes Advance Directives Date on File: 11/28/20 service: No Current occupational status: unemployed and disabled 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 Physical Exam Vital Signs: Vital Signs: Last Vital Signs Temp 98.0 F 04/06/24 14:24 Pulse 57 04/06/24 14:24 Resp 20 04/06/24 14:24 BP 123/72 04/06/24 14:24 Pulse Ox 95 04/06/24 14:24 O2 Del Method Room Air 04/06/24 14:24 BMI result Body Mass Index 25.5 General: Well-appearing well-nourished in no signs of distress HEENT: Normocephalic atraumatic Neck: No signs of JVD, no masses no tenderness or lymphadenopathy Cardiovascular: Regular rate and rhythm Respiratory: Clear to auscultation bilaterally Abdomen: Soft nontender no masses Extremities: Normal pedal pulses no signs of edema Skin: Dry warm no rashes Back: No tenderness full ROM Course Course Course Narrative: Patient reassessed multiple times still not wheezing I will give a breathing treatment as well as Tessalon Perles x-ray does not show an ammonia patient will be signed out pending labs ultimate disposition and a 2nd troponin to Dr. Araujo Medications Administered Discontinued Medications Generic Name Dose Route Start Last Admin Trade Name Freq PRN Reason Stop Dose Admin Sodium Chloride 1,000 mls @ 999 mls/hr 04/06/24 14:15 04/06/24 15:07 Ns IV 04/06/24 15:15 999 mls/hr .Q1H1M GÓMEZ Administration Prednisone 60 mg 04/06/24 14:03 04/06/24 15:06 Prednisone 20 Mg Tablet PO 04/06/24 14:04 60 mg ONCE ONE Administration Medical Decision Making Medical Decision Making [facility] Narrative: I will treat the patient with steroids check labs and x-ray and reassess I will do swabs for COVID flu RSV Differential Diagnosis Differential Diagnoses: The differential diagnosis associated with the presentation includes Pneumonia COPD breathlessness patient is not tachycardic or hypoxic I do not think this is PE. Discharge Plan Discharge Clinical Impression: COPD (chronic obstructive pulmonary disease), Chest pain Patient Disposition: Still a Patient Prescriptions: No Action bisacodyl 5 mg tablet,delayed release (DR/EC) 10 mg PO BEDTIME Qty: 60 6RF (GARDENIA) micaela Hadleyc See Rx Instructions .MEDSUPPLY Qty: 1 0RF Rx Instructions: Folding Front wheeled walker amoxicillin 500 mg tablet 2,000 mg PO ONCE 1 Days Qty: 4 0RF albuterol sulfate 90 mcg/actuation HFA aerosol inhaler 2 puff PO Q4H PRN (Reason: dyspnea) diclofenac sodium [Voltaren Arthritis Pain] 1 % Gel 2 g TOPICAL QID PRN (Reason: Pain) Rx Instructions: apply to single elbow, wrist or hand; for hand includes palm/fingers/back of hand celecoxib 200 mg Capsule 200 mg PO BID 30 Days Qty: 60 0RF acetaminophen 325 mg Tablet 650 mg PO Q6H PRN (Reason: Pain, Mild (Pain Scale 1-3)) 30 Days Qty: 240 0RF aspirin 325 mg Tablet 325 mg PO BID 42 Days Qty: 84 0RF naproxen 500 mg tablet 500 mg PO BID PRN (Reason: pain) 10 Days Qty: 20 0RF loratadine 10 mg tablet 10 mg PO DAILY zafirlukast 20 mg tablet 20 mg PO BID cyanocobalamin (vitamin B-12) 1,000 mcg tablet 1,000 mcg PO DAILY cholecalciferol (vitamin D3) 50 mcg (2,000 unit) tablet 50 mcg PO DAILY clonazepam 1 mg tablet 1 mg PO BID PRN (Reason: Anxiety) fluticasone propion-salmeterol 250-50 mcg/dose blister with device 1 ea inhalation BID albuterol sulfate 2.5 mg /3 mL (0.083 %) solution for nebulization 2.5 mg inhalation Q4H PRN (Reason: Shortness Of Breath Or Wheezing) sumatriptan succinate 100 mg tablet 100 mg PO Q2-4H PRN (Reason: Migraine Headache) Rx Instructions: do not exceed 2 doses per 24 hrs fluticasone propionate 50 mcg/actuation spray,suspension 2 spray intranasal DAILY ibuprofen 400 mg tablet 400 mg PO Q6H PRN (Reason: fever) ropinirole 0.25 mg tablet 0.25 mg PO BEDTIME meclizine 25 mg tablet 25 mg PO TID PRN (Reason: dizziness) Tab-A-Aurea Multivitamin w-iron 15 mg iron- 400 mcg tablet 1 tab PO DAILY azelastine 137 mcg (0.1 %) aerosol,spray 1 spray intranasal DAILY ondansetron 4 mg tablet,disintegrating 4 mg PO Q8H mirtazapine 15 mg tablet 22.5 mg PO BEDTIME calcium polycarbophil [Fiber-Lax] 625 mg tablet 625 mg PO DAILY (DME) walker Misc See Rx Instructions .MEDSUPPLY Qty: 1 0RF Rx Instructions: Folding Front wheeled walker calcium citrate-vitamin D3 [[place] Calcium-Vitamin D3] 200 mg-6.25 mcg (250 unit) tablet 2 tab PO BID alendronate 70 mg tablet 70 mg PO QWEEK omeprazole 20 mg capsule,delayed release(DR/EC) 20 mg PO BID Qty: 60 6RF metoclopramide HCl [Reglan] 10 mg tablet 10 mg PO QID Qty: 120 6RF Rx Instructions: PLEASE PUT THIS IS A PILL BOX FORMAT SCHEDULED QID, second request please put this in the pill box scheduled qid Linzess 290 mcg capsule 290 mcg PO QAM 30 Days Qty: 30 6RF Rx Instructions: PLEASE PUT IN MED BOX FORMAT famotidine 40 mg tablet 40 mg PO BEDTIME Qty: 30 6RF docusate sodium 100 mg capsule 100 mg PO BID Qty: 60 6RF Print Language: French
--- NOTE | 2024-04-06 14:03 | ECG_ITS ---
Test Reason : SOB Blood Pressure : / mmHG Vent. Rate : 064 BPM Atrial Rate : 064 BPM P-R Int : 120 ms QRS Dur : 098 ms QT Int : 422 ms P-R-T Axes : 046 -07 027 degrees QTc Int : 435 ms Sinus rhythm with occasional Premature ventricular complexes and Premature atrial complexes Minimal voltage criteria for LVH, may be normal variant ( R in aVL ) Anterolateral infarct (cited on or before 06-APR-2024) Abnormal ECG When compared with ECG of 03-DEC-2020 11:59, Premature ventricular complexes are now Present Premature atrial complexes are now Present Referred By: Doug Paniagua Electronically Signed By:LUIZ GUERRERO
[2024-04-06 14:24] VITALS: BP 123/72; PULSE 57; RESP 20; TEMP 36.7; O2SAT 95; BMI 25.5
[2024-04-06] MEDS: predniSONE 20 MG TABLET 60 MG PO (15:06)
[2024-04-06] MEDS: 0.9 % Sodium Chloride 1,000 ML 999 ML IV (15:07)
[2024-04-06 15:44] LABS: MANUAL DIFF FLAG NO
[2024-04-06 15:47] LABS: Basophils Percent Auto 0.1 % (0-2); Hematocrit 39.2 % (37.0-47.0); Hemoglobin 12.6 g/dl (12.0-16.0); Imm Gran Pct Auto 0.9 % (0.0-0.4); Lymphocytes Absolute Auto 0.9 X10*3/uL (1.2-4.9); Mean Corpuscular HGB Conc 32.1 g/dl (31.0-35.0); Mean Corpuscular Hemoglobin 26.5 pg (27.0-33.0); Mean Corpuscular Volume 82.4 fL (80.0-98.0); Mean Platelet Volume 8.4 fL (9.4-12.3); Monocytes Absolute Auto 0.5 X10*3/uL (0.1-1.2); Monocytes Percent Auto 4.1 % (2-11); Neutrophils Absolute Auto 9.9 x10*3/uL (2.0-8.3); Neutrophils Percent Auto 86.9 % (45-73); Platelet Count 572 X10*3/uL (160-400); Red Blood Count 4.76 X10*6/uL (4.20-5.50); Red Cell Distribution Width 13.7 % (11.0-16.0); White Blood Count 11.4 X10*3/uL (4.8-10.8)
[2024-04-06 15:49] LABS: Appearance Urine Clear; Color Urine Yellow; Glucose Urine UA Negative (Negative); Leukocyte Esterase Urine Negative (Negative); Nitrite Urine Negative (Negative); Specific Gravity - Urine <= 1.005 (1.005-1.025); Urine Blood Negative (Negative); Urine Ketones Negative (Negative); Urine Protein Negative (Neg-Trace)
[2024-04-06 15:59] LABS: Lactic Acid 1.7 mmol/L (0.5-2.0)
[2024-04-06 16:02] LABS: Anion Gap 13 (12-20); Blood Urea Nitrogen 22 mg/dL (9-16); Carbon Dioxide 27 mmol/L (22-29); Chloride 106 mmol/L (96-108); Estimated Glomerular Filt Rate > 60; Glucose Random 101 mg/dL (60-115); Potassium 3.8 mmol/L (3.3-5.1); Sodium 142 mmol/L (135-145)
[2024-04-06 16:16] LABS: Troponin-I High Sensitivity < 2.7 ng/L (<3.5-17.0)
[2024-04-06 16:27] LABS: Influenza A PCR NEGATIVE (Negative); Influenza B PCR NEGATIVE (Negative); Resp Syncy Virus RNA Qual PCR NEGATIVE (Negative); SARS COV2 PCR INHOUSE NEGATIVE (Negative)
[2024-04-06] MEDS: Benzonatate 100 MG CAPSULE PO (17:00)
[2024-04-06 18:00] VITALS: BP 126/78; PULSE 53; RESP 16; TEMP 36.7; O2SAT 98
[2024-04-06] MEDS: cefuroxime axetiL 500 MG TABLET PO (18:22)
[2024-04-06 18:26] VITALS: BP 126/78; PULSE 53; RESP 16; TEMP 36.7; O2SAT 98
== END 2024-04-06 18:27 | disposition home or self-care (01) ==
PROVIDERS: Emergency Provider Student in an Organized Health Care Education/Training Program; PCP Family Medicine
DX: J44.9 Chronic obstructive pulmonary disease, unspecified (principal); R07.9 Chest pain, unspecified; Z03.818 Encounter for observation for suspected exposure to other biological agents ruled out; R05.9 Cough, unspecified; R06.02 Shortness of breath; R53.1 Weakness; Z79.82 Long term (current) use of aspirin; Z79.899 Other long term (current) drug therapy
CPT/HCPCS: 0241U; 36415; 71046; 80048; 81003; 83605; 84484; 85025; 87040; 93005; 96360; 96361; 99284

== ENCOUNTER 2024-04-18 09:48 | Outpatient (REF) | payer OTHER, SELFPAY ==
[2024-04-18 11:40] LABS: MANUAL DIFF FLAG NO
[2024-04-18 11:53] LABS: Basophils Percent Auto 0.2 % (0-2); Hemoglobin 12.8 g/dl (12.0-16.0); Imm Gran Abs Auto 0.07 X10*3/uL (0.00-0.03); Imm Gran Pct Auto 0.5 % (0.0-0.4); Lymphocytes Absolute Auto 1.1 X10*3/uL (1.2-4.9); Lymphocytes Percent Auto 8.3 % (20-40); Mean Corpuscular HGB Conc 31.2 g/dl (31.0-35.0); Mean Corpuscular Hemoglobin 26.2 pg (27.0-33.0); Mean Platelet Volume 9.2 fL (9.4-12.3); Monocytes Absolute Auto 0.5 X10*3/uL (0.1-1.2); Monocytes Percent Auto 4.2 % (2-11); Neutrophils Absolute Auto 11.3 x10*3/uL (2.0-8.3); Neutrophils Percent Auto 86.8 % (45-73); Platelet Count 420 X10*3/uL (160-400); Red Blood Count 4.88 X10*6/uL (4.20-5.50); Red Cell Distribution Width 14.3 % (11.0-16.0)
[2024-04-18 12:28] LABS: Ferritin 23 ng/mL (10-250); Free T4 (Free Thyroxine) 0.99 ng/dL (0.71-1.85); Iron 37 mcg/dL (30-160); Percent Iron Saturation 12 % (15-50); Thyroid Stimulating Hormone 0.53 uIU/mL (0.32-4.0); Total Iron Binding Capacity 311 mcg/dL (228-428); Unsaturated Iron Binding 274 ug/dL
== END 2024-04-18 09:49 | disposition home or self-care (01) ==
LOC: HO.HHCL 09:48
PROVIDERS: Visit Provider Family Medicine
DX: R00.2 Palpitations (principal)
CPT/HCPCS: 36415; 82728; 83540; 84439; 84443; 85025

== ENCOUNTER → 2024-04-25 10:35 | Outpatient (REF) | payer OTHER, SELFPAY ==
--- NOTE | 2024-04-25 10:39 | HM_ITS ---
* Total monitoring time 1 day. * Underlying rhythm is sinus with an average rate of 83/Min. * Frequent supraventricular ectopy. * Rare ventricular ectopy. * No significant pauses or high-grade AV blocks. * No patient markers or diary events. MTDD
== END ==
LOC: HO.CARD 10:35
PROVIDERS: PCP Family Medicine; Visit Provider Family Medicine
DX: R00.2 Palpitations (principal)
CPT/HCPCS: 93225

== ENCOUNTER → 2024-04-25 10:39 | Outpatient (BNV) | payer OTHER, SELFPAY | PROVIDERS: PCP Family Medicine; Visit Provider Internal Medicine | DX: I47.10 Supraventricular tachycardia, unspecified (principal) | CPT/HCPCS: 93227 ==

== ENCOUNTER 2024-04-26 11:46 | Outpatient (AMB) | payer OTHER, SELFPAY ==
--- NOTE | 2024-04-26 12:18 | A.OFFVIS_ITS ---
Intake Visit Reasons: OV - L TKA w/NE 12/20/23 Intake Note: Maida is a 68 year old female who presents today for a follow up of her left knee S/P Left TKA 12/20/23. Allergies vancomycin [VANCOMYCIN] Allergy (Severe, Verified 04/06/24 14:27) REDNESS,RASH,SWELLING Tetanus & Diphtheria Tox,Adult Allergy (Severe, Uncoded 04/06/24 14:27) FEVER,DIFF.BREATHING HPI HPI OV - L TKA w/NE 12/20/23: Details: Four months status post left knee replacement doing well. She does state she has constant although mild pain. She feels like she is improving every day. [facility] Medical History Osteoarthritis of left knee COPD exacerbation Hypoxia Gastric pain Vaginal irritation History of revision of total replacement of right knee joint Lumbar radiculopathy Osteoarthritis GERD (gastroesophageal reflux disease) Small bowel motility disorder COPD (chronic obstructive pulmonary disease) Anxiety Surgical History History of right knee joint replacement History of total right knee replacement History of ear surgery Hx of colonoscopy History of esophagogastroduodenoscopy (EGD) Family History Father Diabetes Mother Diabetes Osteoporosis HTN (hypertension) Sister Pancreas cancer Social History Household Members: None Housing: Apartment Are you a primary child caregiver private home to a significant other at home: No Do you presently have visiting nurse or other home services: No Alcohol intake: never Patient Tobacco Use Status: Former Tobacco user Tobacco use type: Cigarette e-Cigarette/Vaping Use: Never Used Second Hand Smoke Exposure: No Advance Directives Date on File: 11/28/20 service: No Current occupational status: unemployed and disabled 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 Assessment & Plan Assessment & Plan (1) Status post total knee replacement, left: Onset Date: ~12/20/23 Comment: Dr. Frost Code(s): Z96.652 - Presence of left artificial knee joint Category: Surgical Plan: Status post left knee replacement doing well. She understands that she still has pain but also understands that it is improving and I expected to continue to improve. She can take antibiotics if she does any dental work in the next 2 years but other than that she can return to see me on a p.r.n. basis. Coding Level of Care Code Est Pt Level 3 (09897) Diagnoses Status post total knee replacement, left Z96.652
== END 2024-04-26 12:59 | disposition home or self-care (01) ==
PROVIDERS: PCP Family Medicine; Visit Provider Orthopaedic Surgery
DX: Z47.1 Aftercare following joint replacement surgery (principal); Z96.652 Presence of left artificial knee joint
CPT/HCPCS: 99212

== ENCOUNTER → 2024-04-26 11:46 | Outpatient (BNVA) | payer OTHER, SELFPAY | PROVIDERS: PCP Family Medicine; Visit Provider Orthopaedic Surgery | DX: M25.562 Pain in left knee (principal); Z96.652 Presence of left artificial knee joint | CPT/HCPCS: 99212 ==

== ENCOUNTER 2024-05-01 09:45 | Outpatient (AMB) | payer OTHER, SELFPAY ==
--- NOTE | 2024-05-01 09:52 | MHC.OFFVIS ---
Vital Signs 05/01/24 09:56 Height 5 ft 8 in Weight 168 lb 6.931 oz BMI 25.6 BP 112/67 Blood Pressure Location Lt brachial Position Sitting Pulse 92 Intake Visit Reasons: Follow up medication Gerd Intake Note: Maida presents to in office follow of GERD. CC: Patient c/o constipation and states that she feels like the medications are not helping much. She also reports sometimes having acid reflux. 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 Accompanied by: Self / Same As Patient Allergies vancomycin [VANCOMYCIN] Allergy (Severe, Verified 05/01/24 10:07) REDNESS,RASH,SWELLING Tetanus & Diphtheria Tox,Adult Allergy (Severe, Uncoded 04/06/24 14:27) FEVER,DIFF.BREATHING HPI HPI Follow up medication Gerd: Details: Assessment & Plan (1) Small bowel motility disorder: Code(s): K59.9 - Functional intestinal disorder, unspecified Category: Medical (2) GERD (gastroesophageal reflux disease): Code(s): K21.9 - Gastro-esophageal reflux disease without esophagitis Category: Medical (3) Chronic idiopathic constipation: Code(s): K59.04 - Chronic idiopathic constipation Category: Medical Plan Portuguese #[place] Live She has been feeling well. We decied to cancel the EGD for now. She continues on omeprazole 20 mg twice a day, Reglan 10 mg 4 times a day, Linzess 290 micro g daily, famotidine at bedtime for breakthrough, Colace twice a day, and bisacodyl. She asks about a stool test that her sister had that came out positive. It sounds like Cologuard so I explain this to her as she was very nervous about this. ROV 6 mos. Medications: New omeprazole 20 mg PO BID 60 caps 6RF Refilled metoclopramide HCl (Reglan) PLEASE PUT THIS IS A PILL BOX FORMAT SCHEDULED QID, second request please put this in the pill box scheduled qid 10 mg PO QID 120 tabs 6RF K59.9 - Functional intestinal disorder, unspecified linaclotide (Linzess) PLEASE PUT IN MED BOX FORMAT 290 mcg PO QAM 30 caps 6RF 30 days K59.04 - Chronic idiopathic constipation famotidine 40 mg PO BEDTIME 30 tabs 6RF pantoprazole 40 mg PO BID 60 tabs 6RF K21.9 - Gastro-esophageal reflux disease without esophagitis docusate sodium 100 mg PO BID 60 c Portuguese # [place] Live She is now having worse CIC and she says my meds are not working to move my bowels the same, She is only moving her bowels q 2-3 days and the stools are hard. She is not completely certain if she is taking all of her medications. For 1 thing it appears she is taking a doctor sit only once a day and she does not know if she has the Reglan. I think I want to bring all of her medications in with her so that I can see if she is taking them all appropriately and if there are any other medications that are complicating the clinical picture. For now I will make sure that I sent to the pharmacy that the doctor sit is twice a day and we will increase the bisacodyl the 2 at night and 1 in the morning along with the Linzess 290. If this is not effective we could consider progressing to a different constipation med such as Ibsrela. Depending on her response we may want to consider repeat thyroid study as well. I want her to come back with all of her medications so I can make sure she is got everything she supposed to be taking to promote her best bowel motility and that there is no other medications complicating the picture. Return office visit next week [facility] Medical History Osteoarthritis of left knee COPD exacerbation Hypoxia Gastric pain Vaginal irritation History of revision of total replacement of right knee joint Lumbar radiculopathy Osteoarthritis GERD (gastroesophageal reflux disease) Small bowel motility disorder COPD (chronic obstructive pulmonary disease) Anxiety Surgical History History of right knee joint replacement History of total right knee replacement History of ear surgery Hx of colonoscopy History of esophagogastroduodenoscopy (EGD) Family History Father Diabetes Mother Diabetes Osteoporosis HTN (hypertension) Sister Pancreas cancer Social History Household Members: None Housing: Apartment Are you a primary day care attendant to a significant other at home: No Do you presently have visiting nurse or other home services: No Alcohol intake: never Patient Tobacco Use Status: Former Tobacco user Tobacco use type: Cigarette e-Cigarette/Vaping Use: Never Used Second Hand Smoke Exposure: No Advance Directives Date on File: 11/28/20 service: No Current occupational status: unemployed and disabled 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 Review of Systems Const Denies fatigue, Denies fever(s), Denies night sweats, Denies poor appetite and Denies weight loss ENT Reports Normal hearing present, Denies dental pain, Denies dysphagia, Denies hearing loss, Denies mouth pain, Denies odynophagia, Denies throat swelling, Denies tongue swelling and Reports other (Dentition adequate) Card Reports no additional complaints Resp Reports no additional complaints GI Details: Denies abdominal pain, Denies melena, Denies bloating, Denies hematochezia, Reports constipation, Denies GI cramping, Denies dysphagia, Denies excessive flatus, Denies early satiety, Denies heartburn, Denies diarrhea, Denies nausea, Denies odynophagia, Denies vomiting and Denies hematemesis Skin/Breast Denies pruritus, Denies lesions, Denies rash and Denies jaundice Neuro Reports Normal hearing present and Denies Abnormal speech present Endo Denies fatigue Aller/Immun Denies throat swelling and Denies tongue swelling Physical Exam Vital Signs: Last Vital Signs Pulse 92 05/01/24 09:56 BP 112/67 05/01/24 09:56 BMI result Body Mass Index 25.6 Const General: cooperative, no acute distress, well developed and well groomed Nutritional Appearance: average body habitus and well nourished Orientation/consciousness: oriented to person, oriented to place and oriented to time Limitations: language barrier HEENT Head: Yes normocephalic and Yes atraumatic Eyes General: appearance normal, both eyes and all related structures Pupils: Equal, round and reactive pupils present Neck Neck: Yes normal visual inspection and Yes no lymphadenopathy Thyroid: Thyroid normal Resp Effort & Inspection: normal respiratory effort and able to speak in complete sentences Auscultation: clear to auscultation bilaterally Cardio Rate: regular rate Rhythm: regular rhythm Heart sounds: Normal, physiologic split S2 sound present Peripheral pulses: radial pulses present and posterior tibial pulses present GI Inspection: No distended and No Abdominal panniculus present Palpation (GI): Soft to palpation, nontender, no guarding, not rigid and No hepatosplenomegaly present Percussion: Yes normal to percussion Auscultation: normal bowel sounds Rectal Exam - Female: deferred Skin General skin exam: no rashes or lesions noted, turgor normal, skin not dry, no jaundice, No spider nevi and no striae Rashes: no rashes Nails: normal Neuro General: oriented to person, oriented to place and oriented to time Cranial nerves: Yes Equal, round and reactive pupils present and Yes Normal hearing present Speech: No Abnormal speech present Extrem General: Yes normal to inspection, No clubbing, No cyanosis and No edema Psych Appearance: grossly normal and well kempt Mental Status: mental status grossly normal Speech and movement: Normal speech and movement present Affect: normal affect Attitude: cooperative Thought process: Normal thought process present and not confabulating Thought content: Normal thought content present Insight: Limited insight present (Psych) Judgement: Limited judgement present (Psych) Assessment & Plan Assessment & Plan (1) GERD (gastroesophageal reflux disease): Code(s): K21.9 - Gastro-esophageal reflux disease without esophagitis Category: Medical (2) Chronic idiopathic constipation: Code(s): K59.04 - Chronic idiopathic constipation Category: Medical (3) Small bowel motility disorder: Code(s): K59.9 - Functional intestinal disorder, unspecified Category: Medical Plan Portuguese # [place] She is now having worse CIC and she says my meds are not working to move my bowels the same, She is only moving her bowels q 2-3 days and the stools are hard. She is not completely certain if she is taking all of her medications. For 1 thing it appears she is taking a doctor sit only once a day and she does not know if she has the Reglan. I think I want to bring all of her medications in with her so that I can see if she is taking them all appropriately and if there are any other medications that are complicating the clinical picture. For now I will make sure that I sent to the pharmacy that the doctor sit is twice a day and we will increase the bisacodyl the 2 at night and 1 in the morning along with the Linzess 290. If this is not effective we could consider progressing to a different constipation med such as Ibsrela. Depending on her response we may want to consider repeat thyroid study as well. I want her to come back with all of her medications so I can make sure she is got everything she supposed to be taking to promote her best bowel motility and that there is no other medications complicating the picture. Return office visit next week Medications: Changed From docusate sodium 100 mg PO BID 60 caps 6RF To docusate sodium Please put into pill pack for bid dosing 100 mg PO BID 60 caps 6RF From bisacodyl 10 mg (2 x 5 mg) PO BEDTIME 60 tabs 6RF K59.04 - Chronic idiopathic constipation To bisacodyl 2 tabs qhs and 1 qam orally bedtime; PLEASE PUT IN PILL PACKS 60 tabs 6RF K59.04 - Chronic idiopathic constipation Refilled metoclopramide HCl (Reglan) PLEASE PUT THIS IS A PILL BOX FORMAT SCHEDULED QID, second request please put this in the pill box scheduled qid 10 mg PO QID 120 tabs 6RF K59.9 - Functional intestinal disorder, unspecified omeprazole 20 mg PO BID 60 caps 6RF Discontinued benzonatate Discontinued Reason: Doctor's Order 200 mg PO TID PRN 20 caps 0RF cough On Hold famotidine Hold Comment: Doctor's Order 40 mg PO BEDTIME 30 tabs 6RF Coding Level of Care Code Est Pt Level 3 (16393) Diagnoses GERD (gastroesophageal reflux disease) K21.9 Chronic idiopathic constipation K59.04 Small bowel motility disorder K59.9
[2024-05-01 09:56] VITALS: BP 112/67; PULSE 92; BMI 25.6
== END 2024-05-01 10:57 | disposition home or self-care (01) ==
PROVIDERS: PCP Family Medicine; Visit Provider Nurse Practitioner
DX: K21.9 Gastro-esophageal reflux disease without esophagitis (principal); K59.04 Chronic idiopathic constipation; K59.9 Functional intestinal disorder, unspecified
CPT/HCPCS: 99213

== ENCOUNTER → 2024-05-01 09:45 | Outpatient (BNVA) | payer OTHER, SELFPAY | PROVIDERS: PCP Family Medicine; Visit Provider Nurse Practitioner | DX: K21.9 Gastro-esophageal reflux disease without esophagitis (principal); K59.04 Chronic idiopathic constipation; K59.9 Functional intestinal disorder, unspecified | CPT/HCPCS: 99212 ==

== ENCOUNTER → 2024-05-10 11:39 | Outpatient (AMB) | payer OTHER, SELFPAY ==
[2024-05-10 12:12] VITALS: BP 115/61; PULSE 91; BMI 25.4
--- NOTE | 2024-05-10 12:12 | A.OFFVIS_ITS ---
Vital Signs 05/10/24 12:12 Height 5 ft 8 in Weight 167 lb BMI 25.4 BP 115/61 Blood Pressure Location Lt brachial Position Sitting Pulse 91 Intake Visit Reasons: 1 week follow up Intake Note: Maida presents to in office follow up of CIC. CC: Patient reports doing better and having regular BMs. Denies any new GI concerns today. 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 Accompanied by: Self / Same As Patient Allergies vancomycin [VANCOMYCIN] Allergy (Severe, Verified 05/01/24 10:07) REDNESS,RASH,SWELLING Tetanus & Diphtheria Tox,Adult Allergy (Severe, Uncoded 04/06/24 14:27) FEVER,DIFF.BREATHING PFSH Medical History Osteoarthritis of left knee COPD exacerbation Hypoxia Gastric pain Vaginal irritation History of revision of total replacement of right knee joint Lumbar radiculopathy Osteoarthritis GERD (gastroesophageal reflux disease) Small bowel motility disorder COPD (chronic obstructive pulmonary disease) Anxiety Surgical History History of right knee joint replacement History of total right knee replacement History of ear surgery Hx of colonoscopy History of esophagogastroduodenoscopy (EGD) Family History Father Diabetes Mother Diabetes Osteoporosis HTN (hypertension) Sister Pancreas cancer Social History Household Members: None Housing: Apartment Are you a primary career technical education instructor to a significant other at home: No Do you presently have visiting nurse or other home services: No Alcohol intake: never Patient Tobacco Use Status: Former Tobacco user Tobacco use type: Cigarette e-Cigarette/Vaping Use: Never Used Second Hand Smoke Exposure: No Advance Directives Date on File: 11/28/20 service: No Current occupational status: unemployed and disabled 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
--- NOTE | 2024-05-10 12:12 | A.OFFVIS_ITS ---
Vital Signs 05/10/24 12:12 Height 5 ft 8 in Weight 167 lb BMI 25.4 BP 115/61 Blood Pressure Location Lt brachial Position Sitting Pulse 91 Intake Visit Reasons: 1 week follow up Allergies vancomycin [VANCOMYCIN] Allergy (Severe, Verified 05/01/24 10:07) REDNESS,RASH,SWELLING Tetanus & Diphtheria Tox,Adult Allergy (Severe, Uncoded 04/06/24 14:27) FEVER,DIFF.BREATHING HPI HPI 1 week follow up: Details: Assessment & Plan (1) GERD (gastroesophageal reflux disease): Code(s): K21.9 - Gastro-esophageal reflux disease without esophagitis Category: Medical (2) Chronic idiopathic constipation: Code(s): K59.04 - Chronic idiopathic constipation Category: Medical (3) Small bowel motility disorder: Code(s): K59.9 - Functional intestinal disorder, unspecified Category: Medical Plan [place] # [place] She is now having worse CIC and she says my meds are not working to move my bowels the same, She is only moving her bowels q 2-3 days and the stools are hard. She is not completely certain if she is taking all of her medications. For 1 thing it appears she is taking a docusate only once a day and she does not know if she has the Reglan. I think I want to bring all of her medications in with her so that I can see if she is taking them all appropriately and if there are any other medications that are complicating the clinical picture. For now I will make sure that I sent to the pharmacy that the docusate is twice a day and we will increase the bisacodyl the 2 at night and 1 in the morning along with the Linzess 290. If this is not effective we could consider progressing to a different constipation med such as Ibsrela. Depending on her response we may want to consider repeat thyroid study as well. I want her to come back with all of her medications so I can make sure she is got everything she supposed to be taking to promote her best bowel motility and that there is no other medications complicating the picture. Return office visit next week Medications: Changed From docusate sodium 100 mg PO BID 60 caps 6RF To docusate sodium Please put into pill pack for bid dosing 100 mg PO BID 60 caps 6RF From bisacodyl 10 mg (2 x 5 mg) PO BEDTIME 60 tabs 6RF K59.04 - Chronic idiopathic constipation To bisacodyl 2 tabs qhs and 1 qam orally bedtime; PLEASE PUT IN PILL PACKS 60 tabs 6RF K59.04 - Chronic idiopathic constipation Refilled metoclopramide HCl (Reglan) PLEASE PUT THIS IS A PILL BOX FORMAT SCHEDULED QID, second request please put this in the pill box scheduled qid 10 mg PO QID 120 tabs 6RF K59.9 - Functional intestinal disorder, unspecified omeprazole 20 mg PO BID 60 caps 6RF Discontinued benzonatate Discontinued Reason: Doctor's Order 200 mg PO TID PRN 20 caps 0RF cough On Hold famotidine Hold Comment: Doctor's Order 40 mg PO BEDTIME 30 tabs 6RF TODAYS VISIT [place] #Le Live She is now moving her bowels well. She is not sure what changed, but a review of her meds that she brought with her shows she has all of her therapeutic regimen now - which may be the reason. She is now continuing on her Reglan, Linzess 290, Colace, bisacodyl, omeprazole 20 mg twice a day and famotidine for breakthrough. ROV 6 mos. PFSH Medical History (Updated 04/07/24 @ 00:02 by José Ayala) Osteoarthritis of left knee COPD exacerbation Hypoxia Gastric pain Vaginal irritation History of revision of total replacement of right knee joint Lumbar radiculopathy Osteoarthritis GERD (gastroesophageal reflux disease) Small bowel motility disorder COPD (chronic obstructive pulmonary disease) Anxiety Surgical History (Updated 05/10/24 @ 12:52 by GLENIS Baez) History of right knee joint replacement History of total right knee replacement History of ear surgery Hx of colonoscopy History of esophagogastroduodenoscopy (EGD) Family History Father Diabetes Mother Diabetes Osteoporosis HTN (hypertension) Sister Pancreas cancer Social History Household Members: None Housing: Apartment Are you a primary youth care specialist to a significant other at home: No Do you presently have visiting nurse or other home services: No Alcohol intake: never Patient Tobacco Use Status: Former Tobacco user Tobacco use type: Cigarette e-Cigarette/Vaping Use: Never Used Second Hand Smoke Exposure: No Advance Directives Date on File: 11/28/20 service: No Current occupational status: unemployed and disabled 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 Review of Systems Const Denies fatigue, Denies fever(s), Denies night sweats, Denies poor appetite and Denies weight loss Eyes Details: glasses Reports requires corrective lenses ENT Reports Normal hearing present, Denies dental pain, Denies dysphagia, Denies hearing loss, Denies mouth pain, Denies odynophagia, Denies throat swelling, Denies tongue swelling and Reports other (Dentition adequate) Card Reports no additional complaints Resp Reports no additional complaints GI Details: Denies abdominal pain, Denies melena, Reports bloating, Denies hematochezia, Reports constipation, Denies GI cramping, Denies dysphagia, Denies excessive flatus, Reports early satiety, Reports heartburn, Denies diarrhea, Denies nausea, Denies odynophagia, Denies vomiting and Denies hematemesis Skin/Breast Denies pruritus, Denies lesions, Denies rash and Denies jaundice Neuro Reports Normal hearing present and Denies Abnormal speech present Endo Denies fatigue Aller/Immun Denies throat swelling and Denies tongue swelling Physical Exam Vital Signs: Last Vital Signs Pulse 91 05/10/24 12:12 BP 115/61 05/10/24 12:12 BMI result Body Mass Index 25.4 Const General: cooperative, no acute distress, well developed and well groomed Nutritional Appearance: average body habitus and well nourished Orientation/consciousness: oriented to person, oriented to place and oriented to time Limitations: language barrier HEENT Head: Yes normocephalic and Yes atraumatic Eyes General: appearance normal, both eyes and all related structures Pupils: Equal, round and reactive pupils present Neck Neck: Yes normal visual inspection and Yes no lymphadenopathy Thyroid: Thyroid normal Resp Effort & Inspection: normal respiratory effort and able to speak in complete sentences Auscultation: clear to auscultation bilaterally Cardio Rate: regular rate Rhythm: regular rhythm Heart sounds: Normal, physiologic split S2 sound present Peripheral pulses: radial pulses present and posterior tibial pulses present GI Inspection: No distended and No Abdominal panniculus present Palpation (GI): Soft to palpation, nontender, no guarding, not rigid and No hepatosplenomegaly present Percussion: Yes normal to percussion Auscultation: normal bowel sounds Rectal Exam - Female: deferred Skin General skin exam: no rashes or lesions noted, turgor normal, skin not dry, no jaundice, No spider nevi and no striae Rashes: no rashes Nails: normal Neuro General: oriented to person, oriented to place and oriented to time Cranial nerves: Yes Equal, round and reactive pupils present and Yes Normal hearing present Speech: No Abnormal speech present Extrem General: Yes normal to inspection, No clubbing, No cyanosis and No edema Psych Appearance: grossly normal and well kempt Mental Status: mental status grossly normal Speech and movement: Normal speech and movement present Affect: normal affect Attitude: cooperative Thought process: Normal thought process present and not confabulating Thought content: Normal thought content present Insight: Limited insight present (Psych) Judgement: Limited judgement present (Psych) Assessment & Plan Assessment & Plan (1) GERD (gastroesophageal reflux disease): Code(s): K21.9 - Gastro-esophageal reflux disease without esophagitis Category: Medical (2) Chronic idiopathic constipation: Code(s): K59.04 - Chronic idiopathic constipation Category: Medical Plan [place] #Le Live She is now moving her bowels well. She is not sure what changed, but a review of her meds that she brought with her shows she has all of her therapeutic regimen now - which may be the reason. She is now continuing on her Reglan, Linzess 290, Colace, bisacodyl, omeprazole 20 mg twice a day and famotidine for breakthrough. ROV 6 mos. Coding Level of Care Code Est Pt Level 3 (58517) Diagnoses GERD (gastroesophageal reflux disease) K21.9 Chronic idiopathic constipation K59.04
== END ==
LOC: HO.HGI 11:40
PROVIDERS: PCP Family Medicine; Visit Provider Nurse Practitioner
DX: K21.9 Gastro-esophageal reflux disease without esophagitis (principal); K59.04 Chronic idiopathic constipation
CPT/HCPCS: 99213

== ENCOUNTER → 2024-05-10 11:39 | Outpatient (BNVA) | payer OTHER, SELFPAY | PROVIDERS: PCP Family Medicine; Visit Provider Nurse Practitioner | DX: K21.9 Gastro-esophageal reflux disease without esophagitis (principal); K59.04 Chronic idiopathic constipation; K59.9 Functional intestinal disorder, unspecified | CPT/HCPCS: 99212 ==

== ENCOUNTER 2024-07-26 10:51 | Outpatient (AMB) | payer OTHER, SELFPAY ==
[2024-07-26 11:16] VITALS: BP 102/70; PULSE 63; O2SAT 98; BMI 25.3
--- NOTE | 2024-07-26 11:16 | A.OFFVIS_ITS ---
Vital Signs 07/26/24 11:16 Height 5 ft 8 in Weight 166 lb 7.184 oz BMI 25.3 BP 102/70 Blood Pressure Location Lt brachial Position Sitting Pulse 63 Pulse Source Pulse Oximeter Pulse Oximetry (%) 98 Oxygen Delivery Method Room Air Intake Visit Reasons: Asthma Intake Note: pt is here for follow up and is stating that she is starting not to feel good, has a head ache and sinus congestion x 3 days, the headache is also affecting her eyes causing pain. Insurance Instructor Required: Yes Insurance Instructor Services: Insurance Instructor Present Insurance Instructor Name: Cristal NGUYEN) Allergies vancomycin [VANCOMYCIN] Allergy (Severe, Verified 07/26/24 11:34) REDNESS,RASH,SWELLING Tetanus & Diphtheria Tox,Adult Allergy (Severe, Uncoded 07/26/24 11:34) FEVER,DIFF.BREATHING Medication List - Last Reconciled 07/26/24 by Jared Langley MD acetaminophen 650 mg (2 x 325 mg) PO Q6H PRN 30 days albuterol sulfate 90 mcg/actuation 2 puffs PO Q4H PRN albuterol sulfate 2.5 mg inhalation Q4H PRN alendronate 70 mg PO QWEEK azelastine 1 spray intranasal DAILY bisacodyl 2 tabs qhs and 1 qam orally bedtime; PLEASE PUT IN PILL PACKS calcium citrate-vitamin D3 200 mg-6.25 mcg (250 unit) ([place] Calcium) 2 tabs PO BID calcium polycarbophil (Fiber-Lax) 625 mg PO DAILY cholecalciferol (vitamin D3) 50 mcg PO DAILY clonazepam 1 mg PO BID PRN cyanocobalamin (vitamin B-12) 1,000 mcg PO DAILY divalproex ER mg PO docusate sodium 100 mg PO BID famotidine 40 mg PO BEDTIME fluticasone propion-salmeterol 250-50 mcg/dose 1 ea inhalation BID fluticasone propionate 50 mcg/actuation 2 sprays intranasal DAILY ibuprofen 400 mg PO Q6H PRN linaclotide (Linzess) 290 mcg PO QAM 30 days loratadine 10 mg PO DAILY meclizine 25 mg PO TID PRN metoclopramide HCl (Reglan) 10 mg PO QID mirtazapine 22.5 mg PO BEDTIME multivit-iron sulf-folic acid 15 mg iron- 400 mcg (Tab-A-Aurea Multivitamin w- iron) 1 tab PO DAILY naproxen 500 mg PO BID PRN 10 days omeprazole 20 mg PO BID ondansetron 4 mg PO Q8H ropinirole 0.25 mg PO BEDTIME sumatriptan succinate 100 mg PO Q2-4H PRN walker Folding Front wheeled walker walker Folding Front wheeled walker zafirlukast 20 mg PO BID Do you need a note to return to daycare/school/sports/work: No HPI HPI Asthma: Details: This 69 years old Nepali-speaking female is here for her routine 4 months follow-up. She has chronic perineal allergic rhinitis, and mild asthma/COPD. She also has chronic anxiety and, always fear of her respiratory status getting worse. Every now and then she gets flare ups of nasal congestion and some postnasal drip and she starts worrying about her lungs getting worse. So is the case today that she complains in the last 2 days she feels that her nose is congested. However her breathing has remained very stable. [facility] Medical History Osteoarthritis of left knee COPD exacerbation Hypoxia Gastric pain Vaginal irritation History of revision of total replacement of right knee joint Lumbar radiculopathy Osteoarthritis GERD (gastroesophageal reflux disease) Small bowel motility disorder COPD (chronic obstructive pulmonary disease) Anxiety Surgical History History of right knee joint replacement History of total right knee replacement History of ear surgery Hx of colonoscopy History of esophagogastroduodenoscopy (EGD) Family History Father Diabetes Mother Diabetes Osteoporosis HTN (hypertension) Sister Pancreas cancer Social History Household Members: None Housing: Apartment Are you a primary pet care attendant to a significant other at home: No Do you presently have visiting nurse or other home services: No Alcohol intake: never Patient Tobacco Use Status: Former Tobacco user Tobacco use type: Cigarette e-Cigarette/Vaping Use: Never Used Second Hand Smoke Exposure: No Advance Directives Date on File: 11/28/20 service: No Current occupational status: unemployed and disabled 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 Review of Systems Const All systems reviewed & are unremarkable except as noted in HPI and below Eyes Reports no additional complaints ENT Reports nasal congestion and Reports nasal discharge Card Denies chest pain, Denies irregular heart rhythm and Denies leg edema Resp Reports as per HPI GI Reports constipation Reports no additional complaints Musc Reports no additional complaints Skin/Breast Reports system reviewed and no additional complaints, except as documented Neuro Reports no additional complaints Psych Reports anxiety Physical Exam Vital Signs: Last Vital Signs Pulse 63 07/26/24 11:16 BP 102/70 07/26/24 11:16 Pulse Ox 98 07/26/24 11:16 Oxygen Delivery Method Room Air 07/26/24 11:16 BMI result Body Mass Index 25.3 Assessment & Plan Assessment & Plan (1) COPD (chronic obstructive pulmonary disease): Comment: This patient has only mild degree of obstructive disorder, which may be resultant from bronchial asthma over the past many years. Patient continues to be worried about her COPD getting worse. Code(s): J44.9 - Chronic obstructive pulmonary disease, unspecified Category: Medical Plan: Reassured. I told her that her lung function is stable. I explained to her that she can get some nasal congestion or upper respiratory infection a few times a year but that does not mean her lungs are getting any worse. Continue the present pulmonary regimen which includes : Fluticasone-salmeterol 250-51 inhalation b.i.d. Albuterol HFA 2 puffs Q 4-6 hours p.r.n. (2) Allergic rhinitis: Onset Date: ~12/11/20 Comment: This is her chronic problem. Seems to be well controlled and stable at this time. But she continues to complain of nasal congestion with postnasal discharge and irritation and worries that this will make her lungs worse. Code(s): J30.9 - Allergic rhinitis, unspecified Category: Medical Plan: Reassured. Educated about her medications. Advised to continue zafirlukast 20 mg b.i.d. Flonase 2 spray each nostril daily. azelastin 1 spray each nostril daily (3) Anxiety: Comment: Patient has an anxious personality, and worries about her somatic symptoms Code(s): F41.9 - Anxiety disorder, unspecified Category: Medical Plan: Needs lot of reassurance, which is done on her every visit. Coding Level of Care Code Est Pt Level 3 (91741) Diagnoses COPD (chronic obstructive pulmonary disease) J44.9 Allergic rhinitis J30.9 Anxiety F41.9
== END 2024-07-26 11:34 | disposition home or self-care (01) ==
PROVIDERS: PCP Family Medicine; Visit Provider Internal Medicine
DX: J44.9 Chronic obstructive pulmonary disease, unspecified (principal); J30.9 Allergic rhinitis, unspecified; F41.9 Anxiety disorder, unspecified
CPT/HCPCS: 99213

== ENCOUNTER → 2024-07-26 10:51 | Outpatient (BNVA) | payer OTHER, SELFPAY | PROVIDERS: PCP Family Medicine; Visit Provider Internal Medicine | DX: J44.9 Chronic obstructive pulmonary disease, unspecified (principal); J30.9 Allergic rhinitis, unspecified; F41.9 Anxiety disorder, unspecified | CPT/HCPCS: 99212 ==

== ENCOUNTER 2024-08-02 12:31 | Outpatient (AMB) | payer OTHER, SELFPAY ==
--- NOTE | 2024-08-02 13:16 | MHC.OFFVIS ---
Vital Signs 08/02/24 13:17 Height 5 ft 8 in Weight 165 lb 5.547 oz BMI 25.1 BP 100/60 Blood Pressure Location Rt brachial Position Sitting Pulse 73 Pulse Source Pulse Oximeter Intake Visit Reasons: 6 mth f/up Professor Of Journalism Required: Yes Professor Of Journalism Services: Professor Of Journalism Present Professor Of Journalism Name: Chip [id number] Accompanied by: Self / Same As Patient Allergies vancomycin [VANCOMYCIN] Allergy (Severe, Verified 08/02/24 13:42) REDNESS,RASH,SWELLING Tetanus & Diphtheria Tox,Adult Allergy (Severe, Uncoded 08/02/24 13:42) FEVER,DIFF.BREATHING Medication List - Last Reconciled 08/02/24 by Ravindra Clay NP acetaminophen 650 mg (2 x 325 mg) PO Q6H PRN 30 days albuterol sulfate 90 mcg/actuation 2 puffs PO Q4H PRN albuterol sulfate 2.5 mg inhalation Q4H PRN alendronate 70 mg PO QWEEK azelastine 1 spray intranasal DAILY bisacodyl 2 tabs qhs and 1 qam orally bedtime; PLEASE PUT IN PILL PACKS calcium citrate-vitamin D3 200 mg-6.25 mcg (250 unit) ([place] Calcium) 2 tabs PO BID calcium polycarbophil (Fiber-Lax) 625 mg PO DAILY cholecalciferol (vitamin D3) 50 mcg PO DAILY clonazepam 1 mg PO BID PRN cyanocobalamin (vitamin B-12) 1,000 mcg PO DAILY divalproex ER mg PO docusate sodium 100 mg PO BID famotidine 40 mg PO BEDTIME fluticasone propion-salmeterol 250-50 mcg/dose 1 ea inhalation BID fluticasone propionate 50 mcg/actuation 2 sprays intranasal DAILY ibuprofen 400 mg PO Q6H PRN linaclotide (Linzess) 290 mcg PO QAM 30 days loratadine 10 mg PO DAILY meclizine 25 mg PO TID PRN metoclopramide HCl (Reglan) 10 mg PO QID mirtazapine 22.5 mg PO BEDTIME multivit-iron sulf-folic acid 15 mg iron- 400 mcg (Tab-A-Aurea Multivitamin w-iron) 1 tab PO DAILY naproxen 500 mg PO BID PRN 10 days omeprazole 20 mg PO BID ondansetron 4 mg PO Q8H ropinirole 0.25 mg PO BEDTIME sumatriptan succinate 100 mg PO Q2-4H PRN walker Folding Front wheeled walker walker Folding Front wheeled walker zafirlukast 20 mg PO BID HPI Comments Details: This is a 69-year-old female patient referred to us by her PCP for ongoing palpitations. Patient is Arabic-speaking and we used a employee development manager throughout the visit. Patient was previously seen in the office for chest pain and the workup including a myocardial perfusion study and echocardiogram g was normal. Patient has no history of coronary artery disease, ischemic heart disease, or cardiomyopathy. Patient states her mother has cardiovascular disease with stents placed. Today the patient reports she has been experiencing random chest tightness with facial numbness lasting anywhere between 30 minutes to 1 hour, often accompanied by palpitations. She states this has been ongoing for the last couple of months. These episodes primarily occur at rest and during periods of family stress. Patient does have a history of significant anxiety and is currently on medication receiving therapy for this. Otherwise, patient denies any orthopnea, PND, edema, dizziness, presyncope, or syncope. [facility] Medical History Osteoarthritis of left knee COPD exacerbation Hypoxia Gastric pain Vaginal irritation History of revision of total replacement of right knee joint Lumbar radiculopathy Osteoarthritis GERD (gastroesophageal reflux disease) Small bowel motility disorder COPD (chronic obstructive pulmonary disease) Anxiety Surgical History History of left knee replacement History of right knee joint replacement History of total right knee replacement History of ear surgery Hx of colonoscopy History of esophagogastroduodenoscopy (EGD) Family History Father Diabetes Mother Diabetes Osteoporosis HTN (hypertension) Sister Pancreas cancer Social History Household Members: None Housing: Apartment Are you a primary neonatal intensive care unit nurse to a significant other at home: No Do you presently have visiting nurse or other home services: No Alcohol intake: never Patient Tobacco Use Status: Former Tobacco user Tobacco use type: Cigarette e-Cigarette/Vaping Use: Never Used Second Hand Smoke Exposure: No Advance Directives Date on File: 11/28/20 service: No Current occupational status: unemployed and disabled 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 Review of Systems Const Denies chills, Denies fatigue, Denies fever(s), Denies weight gain and Denies weight loss ENT Denies dizziness Card Denies chest pain, Denies leg edema, Denies lightheadedness, Denies palpitations, Reports dyspnea on exertion, Denies orthopnea and Denies other Resp Denies cough and Reports dyspnea on exertion GI Denies hematochezia and Denies change in stool character Musc Denies abnormal gait, Denies muscle weakness, Denies numbness, Denies radiating pain into limb and Denies tingling Neuro Denies abnormal gait, Denies dizziness, Denies numbness and Denies tingling Endo Denies fatigue and Denies palpitations Physical Exam Vital Signs: Last Vital Signs Pulse 73 08/02/24 13:17 BP 100/60 08/02/24 13:17 BMI result Body Mass Index 25.1 Const General: cooperative, healthy appearing, comfortable and no acute distress Orientation/consciousness: patient oriented x3 HEENT Head: Yes normal to inspection Neck Neck: Yes normal visual inspection, Yes trachea midline and Yes supple Chest Chest palpation & inspection: normal inspection of the chest Resp Effort & Inspection: normal respiratory effort Auscultation: clear to auscultation bilaterally, no crackles, no rales, no rhonchi and no wheezes Cardio Jugular venous distension: no JVD Palpation: normal PMI Rate: regular rate Rhythm: regular rhythm Heart sounds: S1 normal heart sound present, S2 normal heart sound present, no click, no gallops, no murmurs and no rubs Peripheral pulses: Peripheral pulses 2+ throughout GI Inspection: Yes normal to inspection Palpation (GI): Soft to palpation Auscultation: normal bowel sounds Skin General skin exam: no rashes or lesions noted Neuro General: patient oriented x3 Extrem General: Yes normal to inspection, No no pedal edema and No calf tenderness Psych Appearance: grossly normal Mental Status: mental status grossly normal Speech and movement: Normal speech and movement present Assessment & Plan Assessment & Plan (1) Precordial chest pain: Code(s): R07.2 - Precordial pain Category: Medical Plan: 08/24/2023- echo showed normal EF 55-60%. 09/26/2023- myocardial perfusion study was also normal. Patient's symptoms sounding very atypical and likely related to her anxiety. Workup in the past has been negative. With family history of cardiovascular disease we will proceed with a coronary CT scan to rule out any obstructive coronary artery disease. Treatment based on the findings on this test. (2) Palpitations: Code(s): R00.2 - Palpitations Category: Medical Plan: 04/25/2024- PCP ordered a Holter monitor that showed underlying normal sinus rhythm with frequent supraventricular ectopies and rare ventricular ectopy. Blood pressure today is low normal at 100/60. Patient states she does not drink much water, advised her to increase her water intake. Emphasized also on focusing on stress medication strategies. Patient will follow-up as needed after completion of test. Advised patient to seek ER care in case of exertional chest pain not resolved with rest, shortness of breath, palpitations, dizziness, presyncope, or syncope. This note was generated using voice recognition software. While every effort has been made to ensure accuracy and proper cone winder, there may be occasional errors that could affect the content or meaning of the described symptoms. Orders: Orders CT Cardiac Coronary Angio Today R07.2 - Precordial pain Basic Metabolic Panel Today R07.2 - Precordial pain Coding Level of Care Code Est Pt Level 4 (27842) Diagnoses Precordial chest pain R07.2 Palpitations R00.2 Time Spent (min) 31 Comment Time spent in reviewing the chart, test results, assessment, counseling and documentation.
[2024-08-02 13:17] VITALS: BP 100/60; PULSE 73; BMI 25.1
== END 2024-08-02 14:05 | disposition home or self-care (01) ==
PROVIDERS: PCP Family Medicine
DX: R07.2 Precordial pain (principal); R00.2 Palpitations
CPT/HCPCS: 99214

== ENCOUNTER → 2024-08-02 12:31 | Outpatient (BNVA) | payer OTHER, SELFPAY | PROVIDERS: PCP Family Medicine | DX: R07.2 Precordial pain (principal); R00.2 Palpitations | CPT/HCPCS: 99212 ==

== ENCOUNTER 2024-09-13 12:10 | Outpatient (REF) | payer OTHER, SELFPAY ==
--- NOTE | ~2024-09-13 | XR_ITS ---
EXAMINATION: XR KNEE, LEFT CLINICAL INFORMATION: M25.562 - Pain in left knee COMPARISON: 02/14/2024, 12/20/2023 TECHNIQUE: AP view bilateral knees standing, lateral and patellofemoral views left knee. FINDINGS: Right Knee: Total right knee arthroplasty, without complication evident. Normal soft tissues. Left Knee: Total left knee arthroplasty in place. There is been patellar resurfacing. Femoral and tibial components are intact, and anatomic alignment. No periprosthetic lucency or evidence of loosening. No significant joint effusion. Normal soft tissues. XR/XR knee LT 3V IMPRESSION: 1. Total left knee arthroplasty without complication evident. Electronically signed by: Carroll Minor MD 09/17/2024 11:31 AM EDT
--- OUTSIDE RECORDS SUMMARY | 2024-09-13 14:44 | XMS_ITS | Encounter Summary ---
Author Organization [employer] [facility] Address [address] [place] [address] Care Team Providers Care Mall Manager Name Role Phone Amelia Montalvo DO Primary Care Provider [phone] Encounter Details Date Type Department Care Team (Latest Contact Info) Description 03/29/2022 Abstract [facility] CONVERSIONS Dental, Provider, DDS Social History Tobacco Use Types Packs/Day Years Used Date Smoking Tobacco: Never Assessed Comments Unknown Sex and Gender Information Value Date Recorded Sex Assigned at Female 05/10/2022 10:14 AM EDT Legal Sex Female 10:14 AM EDT Gender Identity Female 05/10/2022 10:14 AM EDT Sexual Orientation Choose not to disclose 2021 10:14 AM EDT documented as of this encounter Plan of Treatment Upcoming Encounters Date Type Department Care Team (Late st Contact Info) Description 10/08/2024 1:00 PM EDT Clinical Support [facility] MEDICINE [address] [place] [phone] Mai Bishop RN 10/16/2024 9:45 AM EDT Office Visit [facility] MEDICINE [address] [place] [phone] Amelia Montalvo DO [address] [place] [address] 11/06/2024 10:00 AM EDT Office Visit [facility] ADULT DENTAL [address] [place] [address] Cely Guy [address] [place] [address] documented as of this encounter Visit Diagnoses Not on filedocumented in this encounter Care Teams Mall Manager Relationship Specialty Start Date End Date Amelia Montalvo DO [address] [place] [phone] PCP - General Family Medicine 06/23/12 documented as of this encounter
--- OUTSIDE RECORDS SUMMARY | 2024-09-13 14:44 | XMS_ITS | Encounter Summary ---
Author Organization [employer] Address [address] [place] [address] Care Team Providers Care Edge Drummer Name Role Phone Aemlia Montalvo DO Primary Care Provider [phone] Encounter Details Date Type Department Care Team (Late st Contact Info) Description 09/13/2022 Orders Only [facility] [address] [place] [address] Amelia Kemp LPN Social History Tobacco Use Types Packs/Day Years Used Date Smoking Tobacco: Never Smokeless Tobacco: Never Comments Unknown Sex and Gender Information Value [...] Description 10/08/2024 1:00 PM EDT Clinical Support [facility] [address] [place] [phone] Mai Bishop, JAMAAL 10/16/2024 9:45 AM EDT Office Visit [facility] [address] [place] [phone] Amelia Montalvo DO [address] [place] [address] 11/06/2024 10:00 AM EDT Office Visit [facility] ADULT DENTAL [address] [place] [address] Cely Guy [address] [place] [address] documented as of this encounter Visit Diagnoses Not on filedocumented in this encounter Care Teams Edge Drummer Relationship Specialty Start Date End Date Amelia Montalvo DO [address] [place] [address] PCP - General Family Medicine 06/23/12 documented as of this encounter
--- OUTSIDE RECORDS SUMMARY | 2024-09-13 14:44 | XMS_ITS | Encounter Summary ---
Author Organization [facility] Address [address] [address] [place] [address] Care Team Providers Care Plate Printer Name Role Phone Amelia Montalvo DO Primary Care Provider + [phone] Reason for Visit * Reason Comments Med Refill Encounter Details Date Type Department Care Team ([facility] st Contact Info) Description 11/07/2023 Refill [facility] MED[facility]INE [address] [place] [address] Amelia Montalvo DO [address] [place] [address] Other specified anxiety disorders Social History Tobacco Use Types Packs/Day Years Used Date Smoking Tobacco: Never Passive Smoke Exposure: Never Smokeless Tobacco: Never Alcohol Use Standard Drinks/Week Comments Not Currently 0 (1 standard drink = 0.6 oz pur e alcohol) Housing Stability Answer Date Recorded What is your housing situation today? I have erika armas 10/27/[address] you li ve. Do you have problems with any of the following? None of the above 10/27/2023 Food Insecurity Answer Date Recorded Within the past 12 months, y ou worried that your food would run out before you got money to buy more: Never True 10/27/2023 Within the past 12 months,th e food you bought just didn't last and you didn't have enough money to get more: Never True Transportation Answer Date Recorded In the past 12 months, has l ack of transportation kept you from medical appts, meetings, work or from getting things needed for daily living? No 10/27/2023 Utilities Answer Date Recorded In the past 12 months, has t he electric, gas, oil or water company threatened to shut off services in your home? No 10/27/2023 Comments Unknown Sex and Gender Information Value [...] Description 10/08/2024 1:00 PM EDT Clinical Support [facility] [address] [place] [phone] Mai Bishop, JAMAAL 10/16/2024 9:45 AM EDT Office Visit [facility] [address] [place] [phone] Amelia Montalvo DO [address] [place] [address] 11/06/2024 10:00 AM EDT Office Visit [facility] ADULT DENTAL [address] [place] [address] Cely Guy [address] [place] [address] documented as of this encounter Visit Diagnoses Diagnosis Other specified anxiety disorders documented in this encounter Care Teams Plate Printer Relationship Specialty Start Date End Date Amelia Montalvo DO [address] [place] [phone] PCP - General Family Medicine 06/23/12 documented as of this encounter
--- OUTSIDE RECORDS SUMMARY | 2024-09-13 14:44 | XMS_ITS | Encounter Summary ---
Author Organization [employer] Address [address] [facility] 7t [place] [address] Care Team Providers Care Authorization Representative Name Role Phone Amelia Montalvo DO Primary Care Provider [phone] Reason for Visit * Reason Onset Date Comments Med Refill 08/21/2024 Encounter Details Date Type Department Care Team ([facility] st Contact Info) Description 08/21/2024 Refill [facility] [address] [place] [address] Amelia Montalvo DO [address] [place] [address] Other specified anxiety disorders Social History Tobacco Use Types Packs/Day Years Used Date Smoking Tobacco: Never Passive Smoke Exposure: Never Smokeless Tobacco: Never Alcohol Use Standard Drinks/Week Comments Not Currently 0 (1 standard drink = 0.6 oz pur e alcohol) Depression Answer Date Recorded Patient Health Questionnaire-9 Score 18 12/13/2023 Patient Health Questionnaire-9 Score 18 12/13/2023 Last PHQ-9: Questionnaire Data Not on file 0 12/13/2023 Housing Stability Answer Date Recorded What is [...] off services in your home? No 10/27/2023 Depression Answer Date Recorded Patient Health Questionnaire-2 Score 5 12/13/2023 Comments Unknown Sex and Gender Information Value Date Recorded Sex Assigned at Female 05/10/2022 10:14 AM EDT Legal Sex Female 10:14 AM EDT Gender Identity Female 05/10/2022 10:14 AM EDT Sexual Orientation Choose not to disclose 2021 10:14 AM EDT documented as of this encounter Miscellaneous Notes * Addendum Note - Armond Bishop RN - 08/21/2024 1:18 PM ESTAddended by: ARMOND BISHOP on: 08/21/2024 01:18 PM Modules accepted: Orders * Telephone Encounter - Michelle Vides LPN - 08/21/2024 11:09 AM EST RECEIVED REQUEST ON clonazePAM (KlonoPIN) 1 MG tablet documented in this encounter Plan of Treatment Upcoming Encounters Date Type Department Care Team (Late st Contact Info) Description 10/08/2024 1:00 PM EDT Clinical Support [facility] [address] [place] [address] Armond Bishop RN 10/16/2024 9:45 AM EDT Office Visit [facility] [address] [place] [address] Amelia Montalvo DO [address] [place] [address] 11/06/2024 10:00 AM EDT Office Visit [facility] ADULT DENTAL [address] [place] [address] Cely Guy [address] [place] [address] documented as of this encounter Visit Diagnoses Diagnosis Other specified anxiety disorders documented in this encounter Additional Health Concerns Assessment Noted Time PHQ-9 Depression Total Score: 18 024 2:12 PM EDT documented as of this encounter Care Teams Authorization Representative Relationship Specialty Start Date End Date Amelia Montalvo DO [address] [place] [address] PCP - General Family Medicine 06/23/12 documented as of this encounter
--- OUTSIDE RECORDS SUMMARY | 2024-09-13 14:44 | XMS_ITS | Encounter Summary ---
Author Organization [employer] Address [address] [facility] 7t [place] [address] Care Team Providers Care Project Structural Engineer Name Role Phone Amelia Montalvo DO Primary Care Provider + [phone] Reason for Visit * Reason Comments Med Refill Encounter Details Date Type Department Care Team (Late st Contact Info) Description 10/25/2023 Refill [facility] [address] [place] [address] Iram Ascencio FNP Social History Tobacco Use Types Packs/Day Years [...] Description 10/08/2024 1:00 PM EDT Clinical Support [facility] [address] [place] [address] Mai iBshop RN 10/16/2024 9:45 AM EDT Office Visit [facility] [address] [place] [address] Amelia Montalvo DO [address] [place] [address] 11/06/2024 10:00 AM EDT Office Visit [facility] ADULT DENTAL [address] [place] [address] Cely Guy [address] [place] [address] documented as of this encounter Visit Diagnoses Not on filedocumented in this encounter Care Teams Project Structural Engineer Relationship Specialty Start Date End Date Amelia Montalvo DO [address] [place] [address] PCP - General Family Medicine 06/23/12 documented as of this encounter
--- OUTSIDE RECORDS SUMMARY | 2024-09-13 14:44 | XMS_ITS | Encounter Summary ---
Author Organization [employer] Address [address] [facility] 7t [place] [address] Care Team Providers Care Rn Cardiovascular Icu Name Role Phone Amelia Montalvo DO Primary Care Provider + [phone] Reason for Visit * Reason Comments Med Refill Encounter Details Date Type Department Care Team ([facility] st Contact Info) Description 03/14/2024 Refill [facility] [address] [place] [address] Amelia Montalvo DO [address] [place] [address] Other specified anxiety disorders Social History Tobacco [...] Description 10/08/2024 1:00 PM EDT Clinical Support [facility] [address] [place] [address] Mai Bishop, JAMAAL 10/16/2024 9:45 AM EDT Office Visit [facility] [address] [place] [address] Amelia Montalvo DO [address] [place] [address] 11/06/2024 10:00 AM EDT Office Visit [facility] ADULT DENTAL [address] [place] [address] Cely Guy [address] [place] [address] documented as of this encounter Visit Diagnoses Diagnosis Other specified anxiety disorders documented in this encounter Additional Health Concerns Assessment Noted Time PHQ-9 Depression Total Score: 18 024 2:12 PM EDT documented as of this encounter Care Teams Rn Cardiovascular Icu Relationship Specialty Start Date End Date Amelia Montalvo DO [address] [place] [address] PCP - General Family Medicine 06/23/12 documented as of this encounter
--- OUTSIDE RECORDS SUMMARY | 2024-09-13 14:44 | XMS_ITS | Encounter Summary ---
Author Organization [employer] Address [address] [facility] [address]t [place] [address] Care Team Providers Care Conversion Worker Name Role Phone Amelia Montalvo DO Primary Care Provider Encounter Details Date Type Department Care Team (Latest Contact Info) Description 08/28/2024 Travel Social History Tobacco Use Types Packs/Day Years [...] Description 10/08/2024 1:00 PM EDT Clinical Support [facility] [address] [place] [address] Mai Bishop, JAMAAL 10/16/2024 9:45 AM EDT Office Visit [facility] [address] [place] [address] Amelia Montalvo DO [address] [place] [address] 11/06/2024 10:00 AM EDT Office Visit [facility] ADULT DENTAL [address] [place] [address] Brooks, Cely [address] [place] [address] documented as of this encounter Visit Diagnoses Not on filedocumented in this encounter Additional Health Concerns Assessment Noted Time PHQ-9 Depression Total Score: 18 06/2 024 2:12 PM EDT documented as of this encounter Care Teams Conversion Worker Relationship Specialty Start Date End Date Amelia Montalvo DO [address] [place] [address] PCP - General Family Medicine 06/23/12 documented as of this encounter
--- OUTSIDE RECORDS SUMMARY | 2024-09-13 14:44 | XMS_ITS | Encounter Summary ---
Author Organization [employer] [facility] Address [address] [facility] [address] [place] [address] Care Team Providers Care Word Processor Operator Name Role Phone Amelia Montalvo DO Primary Care Provider [phone] Reason for Visit * Reason Onset Date Comments Pre-op clearance notes 08/26/2023 Encounter Details Date Type Department Care Team (Late st Contact Info) Description 08/26/2023 Telephone [facility] [address] [place] [address] Amelia Montalvo DO [address] [place] [address] Pre-op clearance notes Social History Tobacco Use Types Packs/Day Years Used Date Smoking Tobacco: Never Passive Smoke Exposure: Never Smokeless Tobacco: Never Alcohol Use Standard Drinks/Week Comments Not Currently 0 (1 standard drink = 0.6 oz pur e alcohol) Comments Unknown Sex and Gender Information Value Date Recorded Sex Assigned at Female 05/10/2022 10:14 AM EDT Legal Sex Female 10:14 AM EDT Gender Identity Female 05/10/2022 10:14 AM EDT Sexual Orientation Choose not to disclose 2021 10:14 AM EDT documented as of this encounter Miscellaneous Notes * Telephone Encounter - Adria Ivy - 08/26/2023 12:08 PM EST Hilario Angel from the surgeon's office of calling to request office notes from Pre-op exam on 08/15 and it can be faxed to [phone] documented in this encounter Plan of Treatment Upcoming Encounters Date Type Department Care Team (Late st Contact Info) Description 10/08/2024 1:00 PM EDT Clinical Support [facility] [address] [place] [address] Mai Bishop RN 10/16/2024 9:45 AM EDT Office Visit [facility] [address] [place] [address] Amelia Montalvo DO [address] [place] [address] 11/06/2024 10:00 AM EDT Office Visit [facility] ADULT DENTAL [address] [place] [address] Cely Guy [address] [place] [address] documented as of this encounter Visit Diagnoses Not on filedocumented in this encounter Care Teams Word Processor Operator Relationship Specialty Start Date End Date Amelia Montalvo DO [address] [place] [address] PCP - General Family Medicine 06/23/12 documented as of this encounter
--- OUTSIDE RECORDS SUMMARY | 2024-09-13 14:44 | XMS_ITS | Encounter Summary ---
Author Organization [employer] [facility] Address [address] [facility] [address] [place] [address] Care Team Providers Care Crematory Operator Name Role Phone Amelia Montalvo DO Primary Care Provider [phone] Encounter Details Date Type Department Care Team (Latest Contact Info) Description 08/10/2018 Abstract [facility] CONVERSIONS Dental, Provider, DDS Social History Tobacco [...] Clinical Support [facility] MEDICINE [address] [place] [address] Mai Bishop RN 10/16/2024 9:45 AM EDT Office Visit [facility] [address] [place] [address] Amelia Montalvo DO [address] [place] [address] 11/06/2024 10:00 AM EDT Office Visit [facility] ADULT DENTAL [address] [place] [address] Cely Guy [address] [place] [address] documented as of this encounter Visit Diagnoses Not on filedocumented in this encounter Care Teams Crematory Operator Relationship Specialty Start Date End Date Amelia Montalvo DO [address] [place] [address] PCP - General Family Medicine 06/23/12 documented as of this encounter
--- OUTSIDE RECORDS SUMMARY | 2024-09-13 14:44 | XMS_ITS | Data Portability ---
Author Organization [facility] Address [address] [place] [address] Care Team Providers Care Nursing Home Director Name Role Phone HIM [facility] OTHER [facility] Primary Care Provider Assessment Encounter Date Assessment Date Assessment LastModified by Organization Details LastModified Time 07/28/2023 07/28/2023 I provided real -time medical direction via phone for this encounter, and was available for additional phone based assistance as needed. I have reviewed and agree with the Assessment and Plan as documented by the Superintendent House. We discussed the diagnostic uncertainty of home visits and the risk associated with this. In this case the patient and I felt this to be an acceptable and reasonable amount of risk given the benefit of avoiding an ED visit. The patient given the opportunity to ask questions. Advised need to follow-up with PCP if develops CP/severe SOB/turning blue/uncontrolled n/v/d or black/bloody emesis or stool/ AMS/ syncope/severe headache, acute visual or speech changes, any focal weakness, hi fever unresponsive to APAP to call 911- verbalized understanding of instructions to the medic [email or web address] Not available 07/29/2023 00:10:23 04/11/2024 04/11/2024 As noted, we wer e called to see this patient regarding concerns of chest tightness and increased wob. Evaluation in the field was performed by my tombstone erector helper colleague, as noted above, I provided real-time direction and supervision for this visit. Pt is a 68 F w hx of asthma. She has had 2 ED visits in the last month, each time treated for presumptive pneumonia. still reporting shortness of breath. no fever. nl lung on medic exam. We tried a duoneb which significantly improved he WOB. Will plan to treat w burst pred x 3 days, albuterol prn Impression: asthma exacerbation Plan: burst pred, albuterol prn Disposition: We discussed the diagnostic uncertainty of home visits and the risk associated with this. In this case, the patient and I felt this to be an acceptable and reasonable amount of risk given the benefit of avoiding an ED visit. We discussed the need to seek care urgently/emergently in the setting of any new or worsening serious symptoms, particularlyworsening shortness of breath [email or web address] Not available 04/11/2024 18:52:12 Plan of Treatment Reminders Order Date Submit Date Provider Last Modified By Organization Details Last Modified Time Details Appointments None recorded. Lab influenza virus A + B and SARS CoV 2 (COVID-19) and RSV RNA panel, AKASH+probe, respiratory specimen 2023 024 [place] [facility] (Centralized Electronic Ordering - All Locations), Patient Can Go To The Location Of Their Choice, [id number] 04:09:28 rapid SARS CoV 2 Ag, QL IA, respiratory specimen 2023 024 [email or web address] 0 [facility], [address] [place] [address], [id number], 12:36:39 rapid flu (A+B) 2023 024 [email or web address] 0 [facility], [address] [place] [address], [id number], 12:36:41 Referral None recorded. Procedures None recorded. Surgeries None recorded. Imaging None recorded. Medication Orders prednisone 20 mg tablet 2023 [facility], [address] [place] [address], [id number], 16:11:44 prednisone 20 mg tablet 2023 [facility], [address] [place] [address], [id number], 4 12:49:19 albuterol sulfate 2.5 mg/3 mL (0.083 %) solution for nebulizatio n 2023 [facility], [address], [place], [id number], 4 12:49:19 Zithromax Z-Thomas 250 mg tablet 2023 024 [facility], [address], [place], [id number], 4 12:26:06 Mucinex DM 30 mg-600 mg tablet,exte nded release 12 hr 2023 024 [facility], [address], [place], [id number], 4 11:00:00 Patient TargetsNo targets recorded. Patient InstructionsNo instructions recorded. Reason for Referral None Reported. Results Created Date Observation Date Name Description Value Unit Range Abnormal Flag Note LastModifiedBy Organization Detail LastModifiedTime 07/28/1907/28/2023 COVID -19, RSV, FLU A/B PCR covid-19 PCR specimen source NASAL Not Available [facility] (Centralized Electronic Ordering - All Locations) Patient Can Go To The Location Of Their Choice, [id number] 07/29/2023 04:09:28 07/28/1907/29/2023 COVID -19, RSV, FLU A/B PCR influenza A PCR (neg) NEGAT JULIOCESAR INFLU BANDAR A TARGE T RNA IS NOT DETEC PILAR. REFER ENCE RANGE :NOT DETEC PILAR. A NEGAT JULIOCESAR TEST RESUL T DOES NOT RULE OUT INFEC TIONS CAUSE D BY INFLU BANDAR A, OR OTHER VIRAL OR BACTE RIAL PATHO GENS. ALL TEST RESUL TS MUST BE CORRE LATED WITH CLINI CYNTHIA FINDI NGS. THIS ASSAY IS PERFO RMED BY REAL- TIME RT-PC R. Not Available [facility] (Centralized Electronic Ordering - All Locations) Patient Can Go To The Location Of Their Choice, [id number] 07/29/2023 04:09:28 07/28/1907/29/2023 COVID -19, RSV, FLU A/B PCR influenza B PCR (neg) NEGAT JULIOCESAR INFLU BANDAR B TARGE T RNA IS NOT DETEC PILAR. REFER ENCE RANGE :NOT DETEC PILAR. A NEGAT JULIOCESAR TEST RESUL T DOES NOT RULE OUT INFEC TIONS CAUSE D BY INFLU BANDAR B, OR OTHER VIRAL OR BACTE RIAL PATHO GENS. ALL TEST RESUL TS MUST BE CORRE LATED WITH CLINI CYNTHIA FINDI NGS. THIS ASSAY IS PERFO RMED BY REAL- TIME RT-PC R. Not Available [facility] (Centralized Electronic Ordering - All Locations) Patient Can Go To The Location Of Their Choice, [facility] 07/29/2023 04:09:28 07/28/19 24 07/29/2023 COVID -19, RSV, FLU A/B PCR RSV by PCR (neg) NEGAT JULIOCESAR RSV TARGE T RNA IS NOT DETEC PILAR. REFER ENCE RANGE :NOT DETEC PILAR. A NEGAT JULIOCESAR RESUL T DOES NOT RULE OUT INFEC TIONS CAUSE D BY RESPI RATOR Y SYNCY TIAL VIRUS , OR OTHER VIRAL OR BACTE RIAL PATHO GENS. ALL TEST RESUL TS MUST BE CORRE LATED WITH CLINI CYNTHIA FINDI NGS. THIS ASSAY IS PERFO RMED BY REAL- TIME RT-PC R. Not Available [facility] (Centralized Electronic Ordering - All Locations) Patient Can Go To The Location Of Their Choice, [facility] 07/29/2023 04:09:28 07/28/1907/29/2023 COVID -19, RSV, FLU A/B PCR covid-19 PCR result (neg) NEGAT JULIOCESAR 2019- novel Coron aviru s (2019 -nCoV ) not detec pilar by real- time RT-PC R. Note: If clini cynthia suspi cion for COVID -19 is high, dmitri nue to maint ain preca ution s and consi maria de jesus repea t testi ng. Resul t repor pilar to the [facility]. All test resul ts must be corre lated with clini cynthia findi ngs. This test has been autho rized by the FDA under an Emerg ency Use Autho rizat ion (EUA) for use by autho rized labor atori es. Testi ng perfo rmed on the Cephe id GeneX pert utili zing real- time RT-PC R. Not Available [facility] (Centralized Electronic Ordering - All Locations) Patient Can Go To The Location Of Their Choice, [facility] 07/29/2023 04:09:28 07/28/19 24 07/28/2023 rapid flu (A+B) Flu negati ve Not Available [facility] ed [address] [place] [address], [id number], 07/28/2023 12:36:12 07/28/19 24 07/28/2023 rapid SARS CoV 2 Ag, QL IA, respi rator y speci men rapid SARS CoV 2 Ag, QL IA, respiratory specimen negati ve Not Available [facility] ed [address] [place] [address], [id number], 07/28/2023 12:36:04 Result Notes None recorded. Medical Equipment None Reported. Allergies Allergen ID Allergen Name Allergen Category Reaction Reaction Severity Criticality Documentation Date Start Date Code Code System Note Provider Name and Address Organization Details Recorded Time 4376 vancomyci n medicatio n Not available Not available Not available 07/28/2023 45962 RxNorm Not Available [facility] - production 4 03:35:06 4377 Vaccine product containin g only Clostridi um tetani antigen (medicina l product) medicatio n Not available Not available Not available 07/28/2023 79050 2002 SNOMED Janette Nice MD [address] [place] [address],[address], [place], [phone], [place] [employer] 4 12:27:09 Medications Name Sig Start Date Stop Date Status Note LastModified by Organization Details LastModified Time medbox status USE DIRECTED active Not Available Not Available No t Available pulse oximet airial [id number] USE FOR SHORTNESS OF BREATH OR FOR COUGH. (CALL IF LESS THAN 90%, GO TO DOCTOR FOR DIFFICULTY BREATHING) active Not Available Not Available N ot Available celecoxib 200 mg capsule active Not Available Not Available Not Available lamotrigine 150 mg tablet TAKE 1/2 TABLET BY MOUTH TWICE DAILY IN THE MORNING AND AT BEDTIME active Not Available Not Available No t Available terconazole 0.4 % vaginal cream INSERT 1 APPLICATORF UL VAGINALLY AT BEDTIME FOR 7 DAYS active Not Available Not Available N ot Available fluticasone 250 mcg-salmeter ol 50 mcg/dose blistr powdr for inhalation INHALE 1 PUFF BY MOUTH TWICE DAILY RINSE MOUTH AFTER USING. active Not Available Not Available No t Available carvedilol 12.5 mg tablet active Not Available Not Available Not Available albuterol sulfate 2.5 mg/3 mL (0.083 %) solution for nebulization INHALE 1 AMPULE USING A NEBULIZER THREE TIMES DAILY NEEDED SHORTNESS OF BREATH active Not Available Not Available No t Available Stool Softener 100 mg capsule TAKE 1 CAPSULE BY MOUTH TWICE DAILY IN THE MORNING AND AT BEDTIME active Not Available Not Available No t Available azithromycin 250 mg tablet TAKE 2 TABLETS BY MOUTH ON DAY 1, THEN TAKE 1 TABLET DAILY ON DAYS 2-5 active Not Available Not Available No t Available fluconazole 150 mg tablet TAKE 1 TABLET BY MOUTH ONCE active Not Available Not Available N ot Available sumatriptan 100 mg tablet TAKE 1 TABLET BY MOUTH EVERY DAY NEEDED FOR HEADACHE active Not Available Not Available No t Available senna 8.6 mg tablet TAKE 2 TABLETS BY MOUTH EVERY DAY AT BEDTIME active Not Available Not Available No t Available sucralfate 100 mg/mL oral suspension TAKE 10 ML BY MOUTH FOUR TIMES DAILY active Not Available Not Available No t Available ondansetron HCl 4 mg tablet TAKE 1 TABLET BY MOUTH EVERY 8 HOURS NEEDED FOR NAUSEA AND VOMITING active Not Available Not Available No t Available famotidine 40 mg tablet TAKE 1 TABLET BY MOUTH AT BEDTIME active Not Available Not Available No t Available prednisone 20 mg tablet TAKE 2 TABLETS BY MOUTH EVERY DAY active Not Available Not Available No t Available alendronate 70 mg tablet take 1 tablet by mouth once a week with 6 to 8 oz of water 30 min before first food of day. do not lie down for 30 minutes active Not Available Not Available No t Available clonazepam 1 mg tablet TAKE 1 TABLET BY MOUTH EVERY TWELVE HOURS active Not Available Not Available No t Available sumatriptan 50 mg tablet TAKE 1 TABLET BY MOUTH EVERY DAY NEEDED FOR HEADACHE active Not Available Not Available No t Available cyanocobalam in (vit B-12) 1,000 mcg tablet TAKE 1 TABLET BY MOUTH EVERY MORNING active Not Available Not Available No t Available acetaminophe n 500 mg tablet TAKE 1 TABLET BY MOUTH EVERY 6 HOURS NEEDED FOR PAIN active Not Available Not Available No t Available amoxicillin 500 mg tablet TAKE 4 TABLETS BY MOUTH 1 HOUR BEFORE DENTAL PROCEDURE active Not Available Not Available No t Available ondansetron 8 mg disintegrati ng tablet DISSOLVE 1 TABLET BY MOUTH EVERY 8 HOURS NEEDED FOR NAUSEA FOR UP TO 7 DAYS active Not Available Not Available No t Available lamotrigine 25 mg tablet TAKE 2 TABLETS BY MOUTH TWICE DAILY IN THE MORNING AND AT BEDTIME active Not Available Not Available No t Available acetaminophe n ER 650 mg tablet,exten ded release TAKE 1 TABLET BY MOUTH EVERY 8 HOURS NEEDED FOR PAIN OR FEVER active Not Available Not Available No t Available metocloprami de 5 mg tablet TAKE 1 TABLET BY MOUTH FOUR TIMES DAILY BEFORE MEALS AND BEFORE BEDTIME active Not Available Not Available No t Available ropinirole 0.25 mg tablet TAKE 1 TABLET BY MOUTH AT BEDTIME (1-3 HOURS BEFORE BEDTIME) active Not Available Not Available No t Available meclizine 25 mg tablet TAKE 1 TABLET BY MOUTH THREE TIMES DAILY IN THE MORNING, AT NOON, AND AT BEDTIME NEEDED FOR DIZZINESS FOR UP TO 10 DAYS active Not Available Not Available No t Available baclofen 10 mg tablet TAKE 1/2 TABLET BY MOUTH THREE TIMES DAILY NEEDED FOR MUSCLE SPASMS active Not Available Not Available No t Available pantoprazole 40 mg tablet,delay ed release TAKE 1 TABLET BY MOUTH TWICE DAILY IN THE MORNING AND IN THE EVENING active Not Available Not Available No t Available bumetanide 0.5 mg tablet active Not Available Not Available Not Available ibuprofen 400 mg tablet TAKE 1 TABLET BY MOUTH EVERY 6 HOURS NEEDED FOR PAIN OR FEVER active Not Available Not Available No t Available zafirlukast 20 mg tablet TAKE 1 CAPSULE BY MOUTH TWICE DAILY IN THE MORNING AND IN THE EVENING AFTER MEALS active Not Available Not Available Not Available betamethason e, augmented 0.05 % topical ointment APPLY TO THE AFFECTED AREA(S) TWICE DAILY FOR 7 DAYS, THEN NIGHTLY FOR 7 DAYS, THEN EVERY OTHER DAY AT NIGHT FOR 7 DAYS, THEN STOP. active Not Available Not Available N ot Available omeprazole 20 mg capsule,jeremie yed release TAKE 1 CAPSULE BY MOUTH TWICE DAILY IN THE MORNING AND IN THE EVENING BEFORE MEALS active Not Available Not Available No t Available bisacodyl 5 mg tablet,delay ed release TAKE 2 TABLETS BY MOUTH EVERY DAY AT BEDTIME active Not Available Not Available No t Available mirtazapine 15 mg tablet TAKE 1 AND 1/2 TABLETS BY MOUTH AT BEDTIME active Not Available Not Available No t Available azelastine 137 mcg (0.1 %) nasal spray USE 1 SPRAY IN EACH NOSTRIL TWICE DAILY active Not Available Not Available Not Available Cipro HC 0.2 %-1 % ear drops,suspen francine PLACE 3 DROPS IN THE RIGHT EAR TWICE DAILY FOR 7 DAYS active Not Available Not Available No t Available cefuroxime axetil 500 mg tablet TOME 1 TABLETA POR V A ORAL DOS VECES AL D A FOR 7 DAYS active Not Available Not Available No t Available mirtazapine 15 mg disintegrati ng tablet active Not Available Not Available No t Available ondansetron 4 mg disintegrati ng tablet DISSOLVE 1 TABLET BY MOUTH EVERY DAY NEEDED FOR NAUSEA active Not Available Not Available No t Available fluticasone propionate 50 mcg/actuatio n nasal spray,suspen francine USE 2 SPRAYS IN EACH NOSTRIL ONCE DAILY active Not Available Not Available N ot Available doxycycline hyclate 100 mg tablet TAKE 1 TABLET BY MOUTH TWICE DAILY FOR 7 DAYS WITH A FULL GLASS OF WATER. Do not lie down for 30 minutes after taking. active Not Available Not Available No t Available loratadine 10 mg tablet TAKE 1 TABLET BY MOUTH EVERY MORNING active Not Available Not Available No t Available naproxen 500 mg tablet TAKE 1 TABLET BY MOUTH TWICE DAILY NEEDED FOR PAIN FOR 10 DAYS active Not Available Not Available No t Available metocloprami de 10 mg tablet TAKE 1 TABLET BY MOUTH FOUR TIMES DAILY active Not Available Not Available Not Available amoxicillin 875 mg-potassium clavulanate 125 mg tablet TAKE 1 TABLET BY MOUTH TWICE DAILY FOR 10 DAYS active Not Available Not Available No t Available Ventolin HFA 90 mcg/actuatio n aerosol inhaler INHALE 2 PUFFS BY MOUTH EVERY 4 HOURS NEEDED FOR WHEEZING OR SHORTNESS OF BREATH active Not Available Not Available No t Available oxycodone 5 mg tablet TAKE 1 TABLET BY MOUTH TWICE DAILY IN THE MORNING AND AT BEDTIME NEEDED FOR SEVERE PAIN FOR UP TO 14 DAYS active Not Available Not Available No t Available hydroxyzine pamoate 25 mg capsule TAKE 1 CAPSULE BY MOUTH EVERY 6 HOURS NEEDED FOR ANXIETY active Not Available Not Available No t Available Fiber-Lax 625 mg tablet TAKE 1 TABLET BY MOUTH TWICE DAILY IN THE MORNING AND IN THE EVENING active Not Available Not Available No t Available divalproex ER 250 mg tablet,exten ded release 24 hr TAKE 1 TABLET BY MOUTH TWICE DAILY IN THE MORNING AND IN THE EVENING active Not Available Not Available No t Available mirtazapine 7.5 mg tablet TAKE 1 TABLET BY MOUTH AT BEDTIME active Not Available Not Available No t Available Mucinex DM 30 mg-600 mg tablet,exten ded release 12 hr TAKE 1 TABLET BY MOUTH EVERY TWELVE HOURS NEEDED. SWALLOW WHOLE WITH WATER. DO NOT BREAK, CRUSH, DISSOLVE OR CHEW. active Not Available Not Available No t Available acidophilus 25 million cell-pectin, citrus 100 mg tablet TAKE 1 TABLET BY MOUTH EVERY MORNING active Not Available Not Available No t Available Dry Eye Relief 1 %-0.2 %-0.2 % drops INSTILL 1 DROP IN EACH EYE THREE TIMES DAILY IN THE MORNING, AT NOON, AND AT BEDTIME NEEDED FOR DRY EYES active Not Available Not Available No t Available diclofenac 1 % topical gel APPLY 2 GRAMS TOPICALLY TO AFFECTED AREA(S) FOUR TIMES DAILY NEEDED active Not Available Not Available No t Available melatonin 5 mg tablet TAKE 1 TO 2 TABLETS BY MOUTH AT BEDTIME NEEDED active Not Available Not Available No t Available cholecalcife rol (vitamin D3) 50 mcg (2,000 unit) tablet TAKE 1 TABLET BY MOUTH EVERY MORNING active Not Available Not Available No t Available calcium 200 mg (as citrate)-vit pinot D3 6.25 mcg (250 unit) tablet TAKE 2 TABLETS BY MOUTH TWICE DAILY IN THE MORNING AND EVENING active Not Available Not Available Not Available Linzess 290 mcg capsule TAKE 1 CAPSULE BY MOUTH EVERY MORNING active Not Available Not Available No t Available Tab-A-Aurea Multivitamin w-iron 15 mg iron-400 mcg tablet TAKE 1 TABLET BY MOUTH EVERY MORNING WITH FOOD active Not Available Not Available No t Available Vitals Date Recorded Body temperature Respiratory rate Heart rate Oxygen saturation Oxygen saturation in Arterial blood by Pulse oximetry Oxygen saturation Oxygen saturation in Arterial blood by Pulse oximetry Heart rate Systolic blood pressure Diastolic blood pressure Systolic blood pressure Diastolic blood pressure Provider Name and Address Organization Details Last Updated DateTime 4 98.2 [degF] 20 /min 107 /min 97 % 97 % 97 % 97 % 97 /min 134 mm[Hg] 82 mm[Hg] 138 mm[Hg] 86 mm[Hg] Not Available [facility] - [facility] 4 12:42:06 Date Recorded Oxygen saturation Oxygen saturation in Arterial blood by Pulse oximetry Heart rate Respiratory rate Body temperature Systolic blood pressure Diastolic blood pressure Provider Name and Address Organization Details Last Updated DateTime 4 99 % 99 % 74 /min 16 /min 98.1 [degF] 126 mm[Hg] 74 mm[Hg] Not Available [facility] - production 4 16:47:25 Date Recorded Body weight Oxygen saturation Oxygen saturation in Arterial blood by Pulse oximetry Body height Body temperature Respiratory rate Heart rate Systolic blood pressure Diastolic blood pressure Provider Name and Address Organization Details Last Updated DateTime 4 79086.2 64 g 97 % 97 % 172.72 cm 97.7 [degF] 17 /min 97 /min 120 mm[Hg] 90 mm[Hg] Not Available [facility] - production 4 12:21:43 Date Recorded Body temperature Heart rate Oxygen saturation Oxygen saturation in Arterial blood by Pulse oximetry Systolic blood pressure Diastolic blood pressure Provider Name and Address Organization Details Last Updated DateTime 4 98.1 [degF] 77 /min 98 % 98 % 138 mm[Hg] 94 mm[Hg] Not Available [facility] - production 16:07:34 Social History None recorded. Functional Status None recorded. Mental Status None recorded. Family History Nothing Reported. Medical History No medical history recorded. Gynecological HistoryNo gynecological history recorded. Obstetrics History GPAL:G 0 P 0 0 0 0 Past Encounters Encounter ID Performer Location Encounter Start Date Encounter Closed Date Diagnosis/Indication Diagnosis SNOMED-CT Code Diagnosis ICD10 Code Diagnosis Note [id number] Janette Nice MD [facility] - [facility] [address] 07/28/2023 12:22:19 07/31/2023 13:34:03 Upper respiratory infection 28515221 J06.9 Likely viral. Advised we will call if PCR's were positive. Since symptoms started over a week ago she is not a candidate for antivirals but will provide Mucinex to help loosen/rel ieve the cough. Advised to use her albuterol 4 times a day while ill/to stay well-hydra pilar. If she is feeling dizzy due to sinus and ear congestion advised to take her meclizine as directed. Antibiotic s not currently indicated since she is afebrile without color nasal discharge or sputum [id number] Fortino Guzman MD [facility] [address] [place] [phone] 08/08/2023 16:47:19 08/09/2023 11:01:47 Viral upper respiratory tract infection 458367306 J06.9 Acute bronchitis 9243867 2 J20.9 This 77-year-ol d male has had congestion and a cough for almost a month. Mucinex DM hasn't been effective. I ordered a Z-Thomas. He will follow-up with his PCP for any persistent symptoms. The patient agreed with this plan. [id number] Lissy San MD Main - [address] [address] 01/24/2024 12:21:41 01/24/2024 18:25:34 Cough 85724110 R05.9 68 year old female with a history of abdominal pain, being evaluated for one week of dry cough and fatigue/we akness. Patient denies fever, congestion , shortness of breath or body aches. Patient eating and drinking although less than normal because of her chronic abdominal pain. Exam notable for normal vital signs and clear lungs. POC COVID and flu are negative. Presentati on consistent with likely upper respirator y illness superimpos ed on chronic abdominal pain. Recommend symptomati c care with OTC medication s as needed, FU primary physician for additional work up if persistent or worsening in the coming weeks. I have reviewed and agree with the assessment and plan as documented by the tombstone erector helper. I provided real-time medical direction for this encounter and was immediatel y available to provide additional phone-base d assistance as needed. We discussed the diagnostic uncertaint y of home visits and associated risks. We discussed the need to seek care urgently/e mergently in the setting of any new or worsening symptoms. [id number] Jeet Stovall MD Main - [address] [phone] 04/11/2024 16:07:31 04/11/2024 23:08:50 Acute exacerbation of chronic obstructive pulmonary disease [id number] J44.1 Health Concerns Section Related Observation LastModified by Organization Detai ls LastModified Time None Recorded Concern Status LastModified by Organization Details LastModified Time None Recorded Advance Directives Directive None Recorded Payers Encounter Date Sequence Insurance Name Policy Number Policy Kimble Covered Member ID Kimble Member ID Guarantor Name 07/28/2023 1 [facility] - DOS ON OR AFTER 2022 - DUAL ELIGIBLE - RESIDENTIAL OPTIONS AND ONE CARE (MEDICARE REPLACEMENT/ADV ANTAGE - HMO) Maida Mitchell [id number] Maida Mitchell 08/08/2023 1 [facility] - DOS ON OR AFTER 2022 - DUAL ELIGIBLE - RESIDENTIAL OPTIONS AND ONE CARE (MEDICARE REPLACEMENT/ADV ANTAGE - HMO) Maida Mitchell [id number] Maida Mitchell 01/24/2024 1 [facility] - DOS ON OR AFTER 2022 - DUAL ELIGIBLE - RESIDENTIAL OPTIONS AND ONE CARE (MEDICARE REPLACEMENT/ADV ANTAGE - HMO) Maida Mitchell [id number] Maida Mitchell 04/11/2024 1 [facility] - DOS ON OR AFTER 2022 - DUAL ELIGIBLE - RESIDENTIAL OPTIONS AND ONE CARE (MEDICARE REPLACEMENT/ADV ANTAGE - HMO) Maida Mitchell [id number] Maida Mitchell Notes Date Note Type Note Provider Name and Address Organization Details Recorded Time 07/28/2023 text/html [facility] Nurse Triage Notes (Zeke Yu): Reason For Request: PT reporting a dry cough, feeling weak, and as if she is losing her voice, headache, asthma + copd in which she is experiencing chest pressure during cough spells>denies fever. Patient Reports: Cough, fever greater than 2 days ; History of asthma, increased use of inhaler; COPD; Sputum increase ; Cough; Shortness of breath with exertion; Pain with inspirationDenies: Increased work of breathing/labored ? with or without fever Unable to speak in full sentences without distress Shortness of breath in setting of confusion Lower extremity swelling COVID Exposure Chief Complaints: Cough, Weakness/Lethargy, Headache, Asthma, COPDPMH: COPD/AsthmaAllergie s: VancomycinComments: Bingo Attendant verified the member's name//address and phone number - Education provided on the response time and was advised to monitor reported s/s and seek emergency treatment if needed. Pt reports having a dry cough -Feeling weak with a headache - Hx of asthma/COPD - Increased coughing - SOB with exertion - Denies fever and vomiting - Breathing is non labored and the pt is speaking full sentences - S/S started x 1week - Lazaro HINTON ................... ................... ................... ................... ................... ................... ................... ........ [facility] Note From Humza Rabago: Encountered patient conscious, alert, and ambulatory. Patient states that for over the past week she? s had the stride nonproductive cough, as well as intermittent shortness of breath; patient expresses a history of both asthma, and COPD. Patient states she is medication compliant and does her breathing treatments as needed. Patient denies any recent fevers, nausea, vomiting, or dizziness. Patient denies any current shortness of breath, chest pain, or changes in vision. Flu and Covid swaps performed, both resulted negative, C advised. Skin warm, dry, and of appropriate color for ethnicity. Head and neck, free of trauma and edema. -JVD. Breath sounds present and clear and left bilaterally, right breath sounds exhibit fine rails in the upper and lower lobes. Abdomen soft, non-tender non-distended. Extremities is free of trauma and edema. [facility] contacted: orders for PCR and orthostatic vital science performed results reported to [facility] PCR swab to be taken to [facility] laboratory. [facility] to write prescription for medication regimen at patient? s pharmacy of choice. Red flags discussed with patient, patient urged to seek further medical attention. Should she develop priority symptoms, such as chest pain, syncope, fevers, acute shortness of breath or changes in vision. Patient expresses understanding and would like to remain home at this time. [facility] Allergies: Vancomycin ................... ................... ................... ................... ................... ................... ................... ........ Disposition: Fulfilled SEGMD: As above. Patient has an albuterol nebulizer but has not used it since yesterday. Patient reports chronic balance issues and dizziness due to right ear worse when getting up/changing positions. She has meclizine but she did not remember to take it today. She denies current dizziness during the exam Janette Nice MD [address], [place], [address], [employer] 07/29/2023 00:10:48 08/08/2023 text/html CRC Nurse Triage Notes (Demetra Roemro): Reason For Request: sob Chief Complaints: Shortness of Breath/Dyspnea PMH: COPD/Asthma Allergies: Vancomycin Comments: Verified identity/ / address Call completed with senior hadoop developer Member is a 68 yr old female, [employer] WORK[employer] calling for member with increased weakness and sob for over a week. 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 Member was found to be Negative per PCR and mucinex sent . Per member is taking medication. Member is not on home 02, but has neb . Member dry cough, no wheezing when breathing Fortino Guzman MD [address], [place], [address], [employer] 08/08/2023 17:01:14 01/24/2024 text/html HPI: Member had left [facility] on 12/19. The member returned home on 01/13/24. The member reports feeling chills, weakness, shortness of breath, and a cough for 3 days. The member denies any chest pain or dizziness. ................... ................... ................... ................... ................... ................... ................... ........ CRC Nurse Triage Notes (Iram Madrid): Comments: HPI reviewed. No further information needed to process visit. [facility] POC Test Results from Yared Saenz - ALS Rapid COVID antigen (12:49:53) COVID: - ................... ................... ................... ................... ................... ................... ................... ........ [facility] Note From Yared Saenz: [facility] dispatched for a 68 YO F complaining of a dry cough for 1 week.PT explains over the past week had a lingering dry cough, accompanied by chronic pre existing stomach pain.Upon exam pt has vitals WNL, lung sounds are clear bilateral, no fever, denies chest pain, or n/v. PT does report some decrease appetite due to how many medication she is prescribed. PT still drinking plenty of fluids. [facility] performs rapid PCR covid test which is negative. PT denies takin any OTC medication for the pain. [facility] contacts PT [facility] who recommends fluids and rest at home. Believes this to be a viral common cold and to let it run its course. [facility] also recommends to follow up with GI doctor about any recent changes with her eating changes or pain levels. [facility] explains to pt that if she experiences any sudden onset SOB, chest pain or sudden N/v that she should contact [facility] for a higher level of care. ................... ................... ................... ................... ................... ................... ................... ........ Disposition: Fulfilled Lissy San MD [address], [place], [phone], [employer] 01/24/2024 13:37:22 04/11/2024 text/html CRC Nurse Triage Notes (Demetra Romero): Reason For Request: PT reporting chest tightness + and some shortness of breath Chief Complaints: Shortness of Breath/Dyspnea PMH: COPD/Asthma Allergies: Vancomycin Comments: Bingo Attendant verified the member's name//address and phone number. Member is a 68 yr old polish female , a/o3 PMH >ASthma / copd Allergies >vancoPt calling for chest tightness and sob. She is having chest tightness midsternal, denies that it is pain . The tightness is worse as she takes deep breaths. She has asthma, she has inhalers and nebs. She has not taken them today. She has had the sob and tightness , since last week . She went to the ER last week for the same symptoms and was found to have PNA. She was given antibiotic treatment and lab work was fine , unsure what she had done. She was not given steroids at the ER. Education provided on the response time and the member was advised to monitor reported s/s and seek emergency treatment if needed ................... ................... ................... ................... ................... ................... ................... ........ [facility] Note From Ayo Tomlin: Dispatched for evaluation of a 68 y/o female, Hungarian speaking only, complaining and requesting an evaluation of shortness of breath and tightness in chest. Upon arrival to pt apartment, pt ambulatory waiting for providers at door. Pt sat on couch and assessment performed, vital signs obtained. Language line utilized due to pt speaking Hungarian only, with pt and providers able to communicate in short sentences in Danish. Assessment found CAOX4, airway open and patent, accessory muscles used during respirations, noted work of breathing. Pt states tightness of chest and shortness of breath, denies chest pain, -td, -jvd, -n/v/d, -dizzy. Pt denies headache or body pain. HEENT Normal. Lung sounds clear in all [place]. Pt states that pt had been diagnosed with pneumonia and last week required transport to the ED for shortness of breath. Pt was prescribed antibiotics, pt starting course on 04/06 and continuing course today, with no change in symptoms. Pt denies any other illness, not being in contact with any other people or persons feeling ill during this time. Providers confirmed pt allergies and pharmacy and contacted [facility]. [facility] ordered Duoneb treatment and to call back after treatment completed with further assessment. Duoneb administered with pt stating improvement in symptoms upon completion, lung sounds clear in all cornell, pt work of breathing noted to be improved, pt breathing slower and with less effort. [facility] contacted with update, [facility] ordering second duoneb and 40mg prednisone, with [facility] sending prednisone prescription to pt pharmacy. Providers administered 40mg prednisone and began duoneb treatment. Red flags discussed. Providers then left the residence. All times approximate. ................... ................... ................... ................... ................... ................... ................... ........ Disposition: Pankaj Stvoall MD [address], [place], [id number], [employer] - [employer] 04/11/2024 18:52:26 OBGyn Episode No OBEpisode recorded.
--- OUTSIDE RECORDS SUMMARY | 2024-09-13 14:44 | XMS_ITS | Encounter Summary ---
Author Organization [facility] Address [address] [place] [address] Care Team Providers Care Last Repairer Helper Name Role Phone Amelia Montalvo DO Primary Care Provider [phone] Encounter Details Date Type Department Care Team (Latest Contact Info) Description 01/15/2021 Abstract [facility] Dental, Provider, DDS Social History Tobacco [...] Description 10/08/2024 1:00 PM EDT Clinical Support [facility] [address] [place] [id number] Mai Bishop RN 10/16/2024 9:45 AM EDT Office Visit [facility] [address] [place] [phone] Amelia Montalvo DO [address] [place] [address] 11/06/2024 10:00 AM EDT Office Visit [facility] [address] [place] [phone] Cely Guy [address] [place] [address] documented as of this encounter Visit Diagnoses Not on filedocumented in this encounter Care Teams Last Repairer Helper Relationship Specialty Start Date End Date Amelia Montalvo DO [address] [place] [id number] PCP - General Family Medicine 06/23/12 documented as of this encounter
--- OUTSIDE RECORDS SUMMARY | 2024-09-13 14:44 | XMS_ITS | Data Portability ---
Author Organization [facility], Main Office Address [address], [address] [place] [address] Care Team Providers Care Magician Helper Name Role Phone WESTLEY AMBROCIO - 2ND FLOOR OTHER DIANELYS IYER Primary Care Provider [phone] Assessment Encounter Date Assessment Date Assessment LastModified by Organization Details LastModified Time 01/11/2024 01/11/2024 I have seen and examined the patient independently and confirmed the findings above with the [employer] student note. Management plan discussed with the COMM[employer]CE[employer] student personally. Not available 01/11/2024 13:09:31 Plan of Treatment Reminders Order Date Submit Date Provider Last Modified By Organization Details Last Modified Time Details Appointments None record ed. Lab None record ed. Referral None record ed. Procedures None record ed. Surgeries None record ed. Imaging None record ed. Medication Orders None record ed. Patient TargetsNo targets recorded. Patient InstructionsNo instructions recorded. Reason for Referral None Reported. Problems Name Problem SNOMED Code Status Onset Date Resolution Date Notes Provider Name and Address Organization Details Recorded Time Chronic obstructi ve pulmonary disease 98765457 Active 2023 Jennifer Zaragoza NP [address], [address], [place], [address], [facility] [employer] 4 14:58:38 Restless legs 62907003 Active 2023 Jennifer Zaragoza NP [address], [address], [place], [address], [facility] [employer] 4 14:58:57 Osteoarth ritis 737279312 Active 2023 Jennifer Zaragoza NP [address], [address], [place], [address], [facility] [employer] 4 14:59:07 Gastroeso phageal reflux disease 714999214 Active 2023 Jennifer Zaragoza NP [address], [address], [place], [address], [facility] 4 14:59:12 Abnormal small bowel motility 32205297 Active 2023 Jennifer Zaragoza NP [address], [address], [place], [address], [facility] 4 14:59:26 Allergic rhinitis 04661238 Active 2023 Jennifer Zaragoza NP [address], [address], [place], [address], [facility] 4 14:59:38 Anxiety 84376655 Active 2023 Jennifer Zaragoza NP [address], [address], [place], [place], [address], [facility] 4 14:59:47 Total knee replaceme nt Active 2023 Jennifer Zaragoza NP [address], [address], [place], [place], [address], [facility] 4 15:00:05 Pain of right knee region 998016939783 105 Active 2023 Jennifer Zaragoza NP [address], [place], [place], [address], [facility] 4 15:02:07 Migraine 89258388 Completed 202312/23/2023 Jennifer Zaragoza NP [address], [address], [place], [place], [address], [facility] 4 15:02:20 Vertigo 012951856 Active 2023 Jennifer Zaragoza NP [address], [address], [place], [address], [facility] 4 15:02:40 Asthenia 34573702 Active 2023 Jennifer Zaragoza NP [address], [address], [place], [address], [facility] 4 15:03:52 Headache disorder 124223574 Active 2023 Omkar Clement MD [address], [address], [place], [address], [facility] 4 11:36:49 Primary osteoporo sis 609962291 Active 2023 Omkar Clement MD [address], [address], [place], [address], [facility] 4 11:37:06 Chronic idiopathi c constipat ion 22365651 Active 2023 Omkar Clement MD [address], [place], [address], [facility] 4 11:37:24 Problem Notes None recorded. Procedures Surgical History Date Name Laterality Status Provider Name and Address Organization Details Recorded Time 2023 total replacement of left knee joint completed Jennifer Zaragoza NP [address], [place], [address], [facility] 4 14:43:53 total replacement of right knee joint completed Jennifer Zaragoza NP [address], [place], [address], [facility] 4 14:43:20 operation on external ear completed Jennifer Zaragoza NP [address] [facility] [address], [address], [place], [address], [facility] 4 14:44:10 colonoscopy completed Jennifer Zaragoza NP [address], [address], [place], [address], [facility] 4 14:44:26 esophagogastroduodenoscopy completed Jennifer Zaragoza NP [address], [address], [place], [address], [facility] 4 14:44:38 Imaging Results None recorded. Procedure Notes None recorded. Medical Equipment None Reported. Allergies Allergen ID Allergen Name Allergen Category Reaction Reaction Severity Criticality Documentation Date Start Date Code Code System Note Provider Name and Address Organization Details Recorded Time 34079 vancomyci n medicatio n other Not available high 12/23/2023 77682 RxNorm redne ss swell ing Not Available Not Available Not Available 64495 tetanus and diphtheri a toxoids Not available anaphylax is severe high 12/23/2023 09495 UNK fever Not Available Not Available Not Available Medications Not known to be on any medication Vitals Date Recorded Body weight Heart rate Respiratory rate Body temperature Oxygen saturation Oxygen saturation in Arterial blood by Pulse oximetry Systolic blood pressure Diastolic blood pressure Provider Name and Address Organization Details Last Updated DateTime 4 27762.4 4 g 75 /min 18 /min 98 [degF] 97 % 97 % 120 mm[Hg] 70 mm[Hg] Jennifer Zaragoza NP [address], [address] [place], [place] [employer] 4 13:15:38 Date Recorded Body weight Heart rate Respiratory rate Body temperature Oxygen saturation Oxygen saturation in Arterial blood by Pulse oximetry Systolic blood pressure Diastolic blood pressure Provider Name and Address Organization Details Last Updated DateTime 4 42090.4 4 g 64 /min 18 /min 97.6 [degF] 97 % 97 % 124 mm[Hg] 68 mm[Hg] Jennifer Zaragoza NP [address], [address] [place] [employer] 4 18:04:40 Date Recorded Body weight Heart rate Respiratory rate Body temperature Oxygen saturation Oxygen saturation in Arterial blood by Pulse oximetry Systolic blood pressure Diastolic blood pressure Provider Name and Address Organization Details Last Updated DateTime 4 76496.4 4 g 62 /min 16 /min 98.4 [degF] 98 % 98 % 124 mm[Hg] 68 mm[Hg] Jennifer Zaragoza NP [address], [address] [place] [employer] 4 09:59:09 Date Recorded Heart rate Respiratory rate Body temperature Oxygen saturation Oxygen saturation in Arterial blood by Pulse oximetry Systolic blood pressure Diastolic blood pressure Provider Name and Address Organization Details Last Updated DateTime 4 78 /min 18 /min 98.5 [degF] 95 % 95 % 118 mm[Hg] 70 mm[Hg] ANA BENJAMIN, KERLINE [address] [facility] [address] [facility], [address], [place], [address], [facility] 4 09:45:01 Date Recorded Body weight Heart rate Respiratory rate Body temperature Oxygen saturation Oxygen saturation in Arterial blood by Pulse oximetry Systolic blood pressure Diastolic blood pressure Provider Name and Address Organization Details Last Updated DateTime 4 14677.8 9 g 70 /min 18 /min 98.2 [degF] 99 % 99 % 129 mm[Hg] 74 mm[Hg] MELISSA SIMON [address], [address], [place], [address], [facility] 4 17:48:15 Social History Question Answer Notes LastModified by Organizat ion Details LastModified Time Tobacco Smoking Status Former Smoker Jennifer Zaragoza, KERLINE [address], [address], [place], [address], [facility] 12/23/2023 14:48:10 Do You Have An Advance Directive? Yes Information not available 12/23/2023 What Is Your Level Of Alcohol Consumption? None Information not available 12/23/2023 What Is Your Code Status? Full Code Information not available 12/23/2023 Where Do You Live? Apartment Information not available 12/23/2023 What Was The Date Of Your Most Recent Tobacco Screening? 12/23/2023 Information not available 12/23/2023 What Is Your Relationship Status? Single Information not available 12/23/2023 How Much Tobacco Do You Smoke? No Information not available 12/23/2023 Do You Use Any Illicit Or Recreational Drugs? No Information not available 12/23/2023 Has Tobacco Cessation Counseling Been Provided? No Information not available 12/23/2023 Do You Or Have You Ever Used Any Other Forms Of Tobacco Or Nicotine? No Information not available 12/23/2023 Sex: Unknown Functional Status None recorded. Mental Status None recorded. Family History Nothing Reported Notes:father diabet es mother diabetes, OA,HTN sister pancreatic ca Medical History No medical history recorded. Gynecological HistoryNo gynecological history recorded. Obstetrics History GPAL:G 0 P 0 0 0 0 Immunizations Vaccine Type Date Status Note Provider Nam e and Address Organization Details Recorded Time Hep B, unspecified formulation [address] [facility], [facility] 12/23/2023 10:39:43 Hep B, unspecified formulation [address] [facility], [facility] 12/23/2023 10:39:51 Hep B, unspecified formulation [address] [facility], [facility] 12/23/2023 10:39:57 Pneumococcal conjugate PCV 13 9 completed Della Jeet [facility] 12/23/2023 10:40:57 pneumococcal polysaccharide PPV23 5 completed Della Jeet [facility] 12/23/2023 10:41:39 pneumococcal polysaccharide PPV23 2 completed Della Jeet [facility] 12/23/2023 10:41:50 pneumococcal polysaccharide PPV23 1 completed Della Jeet [facility] 12/23/2023 10:41:58 influenza, unspecified formulation 2 completed Della Jeet [facility] 12/23/2023 10:42:16 influenza, unspecified formulation 3 completed Dlela Jeet [facility] 12/23/2023 10:42:24 SARS-COV-2 (COVID-19) vaccine, UNSPECIFIED 1 completed Della Jeet [facility] 12/23/2023 10:42:40 SARS-COV-2 (COVID-19) vaccine, UNSPECIFIED 1 completed Della Jeet [facility] 12/23/2023 10:42:49 SARS-COV-2 (COVID-19) vaccine, UNSPECIFIED 4 completed Della Jeet [facility] 12/23/2023 10:42:56 zoster live 4 completed Della Jeet [facility] 12/23/2023 10:43:30 zoster recombinant 1 completed Della King estella [facility] 12/23/2023 10:43:50 zoster recombinant 1 completed Della soria [facility] 12/23/2023 10:44:01 Past Encounters Encounter ID Performer Location Encounter Start Date Encounter Closed Date Diagnosis/Indication Diagnosis SNOMED-CT Code Diagnosis ICD10 Code Diagnosis Note [id number] Jennifer Zaragoza NP [address] [address] 12/23/2023 14:27:58 12/27/2023 10:39:41 Pain of right knee region 8270111745 75058 M25.561 sp 12/[address] Kaur/ ot treat and evalfu with ortho in 2 weeks (01/04)keep aquacel dressing c/d/icane or walker as needed contoxycod one 5mg po q 4 hours prn painaspiri n 325 mg po bid x 42 days (6 weeks)02/02 12/22 increase tylenol to 1000 mg po tid and dc prncelcoxi b 200mg po biddc ibuprofen 400 mg po q 6 hour prn ( on several nsaids)dic lofenac 1 % gel 2 grams topical qid prn (shoulders or knees)dc naproxen 500 mg po bid (on several nsaids)dec rease pain meds as tolon colace and bowel regimen belowcbc and bmp tomorrow or tuesday, then on mondays weekly- not resulted todaymonit or pain, relief, swelling, s/s infection Chronic ob structive pulmonary disease 11483229 J44.9 albuterol 2 puff po q 4 prnalb neb q 4hours prn sobflutica sone/salme terol 250/50 bidmonitor Restless legs 37054971 G 25.81 ropinirole 0.25 mg po qhsmonitor Osteoarthritis 976779231 M19.90 now with 2 knee surgeries to help with painwith 2 calcium citrate vit d 3 2 tab bidvit b12 1000 mcg dailyvit d 3 50 mcg po dialyalend ronate 70 mg q weekmonito r Abnormal s mall bowel motility 74737423 R19.8 bm todaymulti vit with iron qdfiber lax 625 mg po qddocusate 100 mg po bidbisacod yl 5 mg po qhsmonitor Gastroesop hageal reflux disease 369648437 K21.9 omeprazole 20 mg bidmetoclo pramide 10 mg po qidlinzess 290 mcgh cap q amfamotidi ne 40 mg po qhszofran 4 mg po q 8 prnmonitor Anxiety 12273084 F41.9 contmirtaz apine 22.5 mg po qhsclonaze ana 1 mg po bid prnmonitor Vertigo 070168237 R42 meclizine 25 mg po tid prn Allergic rhinitis 573808 04 J30.9 azelastine 137mcg intranasal daily both naresfluti casone 50 mcg 2 spray intranasal dailylorat idine 10 mg po dailyzafir lukast 20 mg po bidmonitor Asthenia 27424402 R53.1 pt ot treat and evalmonito r Migraine 23574529 G43.90 9 sumatripta n 100 mg po q 2-4 hours prn (nte 2 doses in 24 hours) [id number] [facility] [address] 12/26/2023 13:46:11 12/29/2023 09:48:46 Pain of right knee region 3915940130 96893 M25.561 sp 12/[address] Kaur/ ot treat and evalfu with ortho in 2 weeks (01/04), nsg to reach out for sooner apptkeep aquacel dressing c/d/icane or walker as needed 12/25 with infection as site is red, hot, and swollen12/09 7 start kelfex 500 mg po q 6 x 10 days12/25 start probiotic 1 tab po bid x 14dayslabs not done today, will reorder contoxycod one 5mg po q 4 hours prn painaspiri n 325 mg po bid x 42 days (6 weeks)02/02 tylenol to 1000 mg po tidcelcoxi b 200mg po biddiclofe nac 1 % gel 2 grams topical qid prn (shoulders or knees)(nap roxen and motrin dc'd due to many nsaids on sep)decrea se pain meds as tolon colace and bowel regimen belowmonit or pain, relief, swelling, s/s infection Chronic ob structive pulmonary disease 00966091 J44.9 contalbute rol 2 puff po q 4 prnalb neb q 4hours prn sobflutica sone/salme terol 250/50 bidmonitor Restless legs 21931514 G 25.81 contcropin irole 0.25 mg po qhsmonitor Osteoarthritis 482555768 M19.90 now with 2 knee surgeries to help with painwith 2 calcium citrate vit d 3 2 tab bidvit b12 1000 mcg dailyvit d 3 50 mcg po dialyalend ronate 70 mg q weekmonito r Vertigo 447464786 R42 meclizine 25 mg po tid prn Allergic rhinitis 364546 04 J30.9 azelastine 137mcg intranasal daily both naresfluti casone 50 mcg 2 spray intranasal dailylorat idine 10 mg po dailyzafir lukast 20 mg po bidmonitor Asthenia 35864997 R53.1 pt ot treat and evalmonito r [id number] Omkar Clemnet MD [address] [address] 12/27/2023 11:30:56 12/29/2023 10:05:35 Osteoarthritis of left knee joint 9917785870 71497 M17.12 end stage OA left knee now s/p TKRASA 325 mg bid for dvt prophylaxi sfollow ortho recs and update with concernsPT OT Eval and treatmonit or for pain control Chronic ob structive pulmonary disease 52755114 J41.1 advair 250/50 bidmonitor respirator y status and albuterol utilizatio n Restless legs 70477513 G 25.81 ropinirole 0.25 mg po qhsmonitor for effect Vertigo 437907142 R42 carrying dxmeclizin e 25 mg po tid prnmonitor for sx and need for further workup Allergic rhinitis 902301 04 J30.2 appears to be significan t issue for patient at baselineco ntinue out patient medsavoid PO steroid given post op statusmoni tor sx Asthenia 07821376 R53.1 PT OT eval and treatmonit or fall risk Chronic id iopathic constipation 10358168 K59.04 appears with dysmotilit y disorderma intained onlinzess 290 mg qdmonitor for effectGI eval prn Primary osteoporosis 276 447544 M81.0 fosamax 70 mg q weekcontin ued Headache disorder 100431 009 G44.89 baseline migraine hxon imitrex prnadded to H Gastroesop hageal reflux disease 872277569 K21.9 famotidine 40 mg qdmonitor for sx relief Cellulitis of left lower limb 7462055989 8228767 L03.116 concern for infection at incision sitestarte d on keflexorth o updated and reeval not felt to be infectedab x d/c'ed [id number] Jennifer Zaragoza NP [facility] [address] 12/28/2023 13:14:27 01/04/2024 15:54:46 Osteoarthritis of left knee joint 8571312271 56507 M17.12 end stage OA left knee now s/p TKRASA 325 mg bid for dvt prophylaxi s until 02/02follow ortho recsand update with concerns and monitor for infectionP T OT Eval and treatmonit or for pain control Cellulitis of left lower limb 9816571882 9833543 L03.116 concern for infection at incision sitestarte d on keflexorth o updated and reeval not felt to be infectedab x d/c'ed on 12/26ice prnwbc is 11.2 on 12/26 elevated, however site is less warm and decreased swellingmo nitor closely for infection and reeval labs on tuesday Asthenia 14447445 R53.1 PT OT eval and treatmonit or fall risk Restless legs 52666967 G 25.81 ropinirole 0.25 mg po qhsmonitor for effect [id number] Jennifer Zaragoza NP [facility] [address] 01/04/2024 16:01:53 01/10/2024 09:58:03 Osteoarthritis of left knee joint 4361968581 37540 M17.12 end stage OA left knee now s/p TKRASA 325 mg bid for dvt prophylaxi s until 02/02follow ortho recsand update with concerns and monitor for infectionP T OT Eval and treatmonit or for pain control Asthenia 30748469 R53.1 PT OT eval and treatmonit or fall risk Restless legs 69559566 G 25.81 ropinirole 0.25 mg po qhsmonitor for effect Dysuria 43542010 R30.0 pt with report of dysuria and frequencyu rinalysis with c & spyridium 200 mg po tid prn dysuria to start after sample is obtainedpt educated about orange discolorat ion to urinemonit or ua and consider abx if needed [id number] Jennifer Zaragoza NP [facility] [address] 01/06/2024 09:58:30 01/10/2024 11:28:47 Dysuria 61721345 R30.0 UTI ruled outpt with report of dysuria and frequency, states she has not had bowel movement in a few dayssee constipati on01/05 urinalysis with c & s with culture showing no infection dc pyridium 200 mg po tid prnmonitor ua and consider abx if needed Osteoarthr itis of left knee joint 4415182814 54952 M17.12 end stage OA left knee now s/p TKRpt reports ortho visit yesterday and removed suturesste ri strips in place today.nsg to obtain consult info from orthoASA 325 mg bid for dvt prophylaxi s until 02/02fo ortho recsand update with concerns and monitor for infectionP T OT Eval and treatmonit or for pain control Asthenia 41844757 R53.1 PT OT eval and treatmonit or fall risk Abnormal s mall bowel motility 01232824 R19.8 no bm in a few daysmultiv it with iron qdfiber lax 625 mg po qddocusate 100 mg po bidbisacod yl 5 mg po qhs01/05inc rease senna to 2 tabs per daygive mom 30cc todaymonit or [id number] ANA BENJAMIN NP [facility] [address] 01/11/2024 09:00:48 01/19/2024 12:49:58 Abnormal small bowel motility 27079704 R19.8 no bm in a few days (reported the other day)Review ed BM log- pt still continues with not having a BM- last BM was 7 which was medium and 7 which was small, otherwise hadn't pooped in roughly 4 days prior. Is on linzess 290 mg qd for IBS - perhaps this needs to be heldContin ue:fiber lax 625 mg po qddocusate 100 mg po bidbisacod yl 10 mg po qhssenna 2 tabs qd Add miralax dailyMonit or bowels Dysuria 53088366 R30.0 UTI ruled outpt had reported dysuria and frequency on 01/05 - no complaints today, seems resolved urinalysis with c & s with culture neg01/05 dc pyridium 200 mg po tid prnmonitor sx. Osteoarthr itis of left knee joint 9838862339 71158 M17.12 end stage OA left knee now s/p TKROrtho followed up with patient: recommenda tions:Cont ROM + working with PT/OT. Quad strengthen ing + gait trainingSt ondina-strips remain in placeThe patient may shower nowFollow- up with ortho in 4 weeksASA 325 mg bid for dvt prophylaxi s until 02/02LLE edema - normal post op swelling - encouragin g pt. to elevate legs when at rest.Updat e ortho with concerns and monitor for infectionP T OT Eval and treat - meeting goals for d/c home Sat. 7/6monitor for pain control Asthenia 71976476 R53.1 PT OT eval and treatSee above, meeting rehab goals, goal home 7/6monitor fall risk [id number] MELISSA SIMON [address] [place] [address] 01/13/2024 11:41:32 01/19/2024 13:26:02 Osteoarthritis of left knee joint 5166542657 61859 M17.12 end stage OA left knee now s/p TKRASA 325 mg bid for dvt prophylaxi sfollow up with ortho outpatient Restless legs 67329579 G 25.81 ropinirole 0.25 mg po qhs Chronic ob structive pulmonary disease 32090015 J41.1 advair 250/50 bid Vertigo 511887794 R42 carrying dxmeclizin e 25 mg po tid prnmonitor for sx and need for further workupfoll ow up outpatient Allergic rhinitis 573517 04 J30.2 appears to be significan t issue for patient at baselineco ntinue out patient medsavoid PO steroid given post op statusmoni tor sx Chronic id iopathic constipation 14266599 K59.04 appears with dysmotilit y disorderma intained onlinzess 290 mg qdmonitor for effectGI eval prn Primary osteoporosis 276 318146 M81.0 fosamax 70 mg q weekcontin ued Headache disorder 503571 009 G44.89 baseline migraine hxon imitrex prnadded to H Gastroesop hageal reflux disease 932745868 K21.9 famotidine 40 mg qdmonitor for sx relief Abnormal s mall bowel motility 99916865 R19.8 Continue:l inzess 290 mg qd for IBSfiber lax 625 mg po qd docusate 100 mg po bid bisacodyl 10 mg po qhs senna 2 tabs qd miralax 17 gn daily Anxiety 26740692 F41.9 contmirtaz apine 22.5 mg po qhsclonaze ana 1 mg po bid prnmonitor Osteoarthritis 030765571 M19.90 now with 2 knee surgeries to help with painwith 2 calcium citrate vit d 3 2 tab bidvit b12 1000 mcg dailyvit d 3 50 mcg po dialyalend ronate 70 mg q weekmonito r Health Concerns Section Related Observation LastModified by Organization Detai ls LastModified Time None Recorded Concern Status LastModified by Organization Details LastModified Time None Recorded Advance Directives Directive Y: Payers Encounter Date Sequence Insurance Name Policy Number Policy Kimble Covered Member ID Kimble Member ID Guarantor Name 12/28/[address] [facility] - DOS ON OR AFTER 2022 - MEDIC[place]AC[place]/ADV ANTAGE - PPO) Maida Mitchell [id number] Maida Mitchell 01/04/[address] [facility] - DOS ON OR AFTER 2022 - [place]/ADV ANTAGE - PPO) Maida Mitchell [id number] Maida Mitchell 01/06/[address] [facility] - DOS ON OR AFTER 2022 - [place]/ADV ANTAGE - PPO) Maida Mitchell [id number] Maida Mitchell 01/11/[address] [facility] - DOS ON OR AFTER 2022 - [place]/ADV ANTAGE - PPO) Maida Mitchell [id number] Maida Mitchell 01/13/[address] [facility] - DOS ON OR AFTER 2022 - [place]/ADV ANTAGE - PPO) Maida Mitchell [id number] Maida Mitchell Notes Date Note Type Note Provider Name and Address Organization Details Recorded Time 12/28/2023 text/html Pt is seen for a n acute rounding visit. She is a 68 yo female admit from hospital after presenting with end stage OA left knee for TKR having failed conservative treatment without complications in hospital on ASA 325 mg bid for DVT prophylaxis. [facility] care felt to have cellulitis on exam on 12/26/23. She did fu with ortho and felt she was not infected and rec dc of abx kelfex. Labs repeated on 12/27/23 and note of wbc count 11.2. notably increased from 8.5 on 12/21. On exam, Left knee is with decreased warmth, swelling, and no drainage. She feels the pain is decreased and has continued to work with therapy. Denies any other concerns or complaints today. Jennifer Zaragoza, KERLINE [address], [address], [place], [address], [facility] [employer] [facility] 12/28/2023 13:29:09 01/04/2024 text/html Pt is seen for a n acute rounding visit. She is a 68 yo female admit from hospital after presenting with end stage OA left knee for TKR having failed conservative treatment without complications in hospital on ASA 325 mg bid for DVT prophylaxis. [facility] and continued care felt to have cellulitis of left knee on exam on 12/26/23. She did fu with ortho and felt she was not infected and rec dc of abx keflex on 12/27/23. Labs repeated on 12/27/23 and note of wbc count 11.2. notably increased from 8.5 on 12/21. She continues to walk the hallways with walker and working with therapy. She is seen for complaint of dysuria and frequency with urgency today. She reports it is uncomfortable. On exam, Left knee is with of normal warmth, swelling decreased , and no drainage, or redness with dressing intact. No cva tenderness. Jennifer Zaragoza NP [address] [facility], [address], [place], [address], [facility] [employer] [facility] 01/04/2024 18:17:27 01/06/2024 text/html Pt is seen for a n acute rounding visit. She is a 68 yo female admit from hospital after presenting with end stage OA left knee for TKR having failed conservative treatment without complications in hospital on ASA 325 mg bid for DVT prophylaxis. She was complaining of dysuria and urine obtained and culture is negative for infection. Seems she has had no bowel movement in a few days and more likely constipation. Will order mom and increase bowel regimen today. She denies dysuria today. She was seen by ortho on 01/04 and sutures removed per pt. Will ask nsg to acquire ortho note. She continues to walk the hallways with walker and working with therapy. On exam, Left knee is with of normal warmth, swelling decreased , and no drainage, or redness with dressing intact. No cva tenderness. Steri strips in place and well approximated. Jennifer Zaragoza NP [address] [facility], [address], [place], [address], [facility] [employer] [facility] 01/06/2024 10:22:58 01/11/2024 text/html Pt is seen for a n acute rounding visit. She is a 68 yo female admit from hospital after presenting with end stage OA left knee for TKR having failed conservative treatment without complications in hospital on ASA 325 mg bid for DVT prophylaxis. The patient was transferred for further care/rehab. On 01/03 she was complaining of dysuria and urine obtained and culture without growth- this has since resolved, denies urinary symptoms. Ortho saw the patient on 01/04 and removed her sutures, steri-strips now in place. The patient has been progressing well with PT, now ambulating independently with a walker in the halls. Planning on discharge this weekend. [facility] stable. Stay complicated by constipation; still an issue despite adjusting laxatives. BM report reviewed, only a few BMs documented. Family concerned with LLE swelling. Maida was seen in her room, NAD. In good spirits. Up ambulating with walker in the halls. She reports no new concerns. Current medication regimen is effective for pain management, no changes needed. Denies UTI sx. No trouble breathing (although does have asthma/COPD). ANA BENJAMIN, KERLINE [address] [facility], [address], [place], [address], [employer] 01/11/2024 13:15:56 01/13/2024 text/html Maida is a 68 yr old female seen today for discharge on 01/14/24. Admitted to [facility] from hospital after presenting with end stage OA left knee for TKR having failed conservative treatment. Patient tolerated procedure well now on ASA 325 mg bid for DVT prophylaxis 12/25 start kelfex 500 mg po q 6 x 10 days for infection at incision site. eval by ortho not felt to be infection with Abx d/c'ed Overall her stay has been relatively uncomplicated, she has met goals with therapy for a safe discharge. She is a minimal assist with care needs, she will be receiving support services with [facility]. she can be discharge to home with medications, PT/OT and vna services. PMH is significant for OA,anxiety,RLS,gerd ,copd,chronic constipation,vertig o migraine LARA, osteoporosis MELISSA SIMON [address] [facility], [address], [place], [address], [employer] 01/13/2024 17:48:53 OBGyn Episode No OBEpisode recorded.
--- OUTSIDE RECORDS SUMMARY | 2024-09-13 14:44 | XMS_ITS | Encounter Summary ---
Author Organization [employer] Address [address] [facility] 7t [place] [address] Care Team Providers Care Garbage Stoker Name Role Phone Amelia Montalvo DO Primary Care Provider +1 [phone] Reason for Visit * Reason Onset Date Comments Recall Appt. 08/28/2024 Encounter Details Date Type Department Care Team ([facility] st Contact Info) Description 08/28/2024 Telephone [facility] MEDICINE [address] [place] [address] Amelia Montalvo DO [address] [place] [address] Recall Appt. Social History Tobacco Use Types Packs/Day Years [...] encounter Miscellaneous Notes * Telephone Encounter - Kailey Avery [place] - 08/28/2024 11:41 AM EST Spoke with patient schedule Follow Up/Anxiety 10/16/24 at 9:45am. Mailed appt. Letter. documented in this encounter Plan of Treatment Upcoming Encounters Date Type Department Care Team (Late st Contact Info) Description 10/08/2024 1:00 PM EDT Clinical Support [facility] MEDICINE [address] [place] [address] Mai Bishop RN 10/16/2024 9:45 AM EDT Office Visit [facility] [address] [place] [address] Amelia Montalvo DO [address] [place] [address] 11/06/2024 10:00 AM EDT Office Visit [facility] ADULT DENTAL [address] [place] [address] Cely Guy [address] [place] [address] documented as of this encounter Visit Diagnoses Not on filedocumented in this encounter Additional Health Concerns Assessment Noted Time PHQ-9 Depression Total Score: 18 024 2:12 PM EDT documented as of this encounter Care Teams Garbage Stoker Relationship Specialty Start Date End Date Amelia Montalvo DO [address] [place] [address] PCP - General Family Medicine 06/23/12 documented as of this encounter
--- OUTSIDE RECORDS SUMMARY | 2024-09-13 14:44 | XMS_ITS | Encounter Summary ---
Author Organization [employer] [facility] Address [address] [facility] 7t [place] [address] Care Team Providers Care Chart Writer Name Role Phone Amelia Montalvo DO Primary Care Provider [phone] Encounter Details Date Type Department Care Team (Late st Contact Info) Description 10/26/2022 Orders Only [facility] [address] [place] [address] Michelle Vides LPN Social History Tobacco Use Types Packs/Day Years Used Date Smoking Tobacco: Never Passive Smoke Exposure: Never Smokeless Tobacco: Never Comments Unknown Sex and Gender Information Value Date Recorded Sex Assigned at Female 05/10/2022 10:14 AM EDT Legal Sex Female 10:14 AM EDT Gender Identity Female 05/10/2022 10:14 AM EDT Sexual Orientation Choose not to disclose 2021 10:14 AM EDT COVID-19 Exposure Response Date Recorded In the last 10 days, have yo u been in contact with someone who was confirmed or suspected to have Coronavirus/COVID-19? No / Unsure 10/15/2022 8:41 AM EDT documented as of this encounter Plan of Treatment Upcoming Encounters Date Type Department Care Team (Late st Contact Info) Description 10/08/2024 1:00 PM EDT Clinical Support [facility] [address] [place] [address] Mai Bishop RN 10/16/2024 9:45 AM EDT Office Visit [address] [address] Amelia Montalvo DO [address] [place] [address] 11/06/2024 10:00 AM EDT Office Visit [facility] [address] [place], [place] [phone] Cely Guy [address] [place] [address] documented as of this encounter Visit Diagnoses Not on filedocumented in this encounter Care Teams Chart Writer Relationship Specialty Start Date End Date Amelia Montalvo DO [address] [place] [address] PCP - General Family Medicine 06/23/12 documented as of this encounter
--- OUTSIDE RECORDS SUMMARY | 2024-09-13 14:44 | XMS_ITS | Encounter Summary ---
Author Organization [employer] [facility] Address [address] [facility] 7t [place] [address] Care Team Providers Care Incident Response Analyst Name Role Phone Amelia Montalvo DO Primary Care Provider [phone] Encounter Details Date Type Department Care Team (Late st Contact Info) Description 10/21/2023 Orders Only [facility] [address] [place] [address] Provider, MD Santos Social History Tobacco Use Types Packs/Day Years [...] Description 10/08/2024 1:00 PM EDT Clinical Support [facility] [address] [place] [address] Mai Bishop RN 10/16/2024 9:45 AM EDT Office Visit [facility] [address] [place] [address] Amelia Montalvo DO [address] [place] [address] 11/06/2024 10:00 AM EDT Office Visit [facility] ADULT [facility] [address] [place] [address] Brooks, Cely [address] [place] [address] documented as of this encounter Procedures Procedure Name Priority Date/Time Associated Diagnosis Comments HM COLONOSCOPY Routine 05/31/2019 10:01 AM EST documented in this encounter Results * Hm Colonoscopy (05/31/2019 10:01 AM EST) us Historical Provider HEALTH MAINTENANCE Final Result documented in this encounter Visit Diagnoses Not on filedocumented in this encounter Care Teams Incident Response Analyst Relationship Specialty Start Date End Date Amelia Montalvo DO 230 [place] [address] PCP - General Family Medicine 06/23/12 documented as of this encounter
--- OUTSIDE RECORDS SUMMARY | 2024-09-13 14:44 | XMS_ITS | Encounter Summary ---
Author Organization [employer] Address [address] [facility] 7t [place] [address] Care Team Providers Care Shipping Processor Name Role Phone Amelia Montalvo DO Primary Care Provider [phone] Reason for Visit * Reason Comments Med Refill Encounter Details Date Type Department Care Team ([facility] st Contact Info) Description 12/09/2023 Refill [facility] MEDICINE [address] [place] [address] Amelia Montalvo DO [address] [place] [address] Social History Tobacco Use Types Packs/Day Years [...] Description 10/08/2024 1:00 PM EDT Clinical Support [facility] MEDICINE [address] [place] [address] Mai Bishop RN 10/16/2024 9:45 AM EDT Office Visit [facility] MEDICINE [address] [place] [address] Amelia Montalvo DO [address] [place] [address] 11/06/2024 10:00 AM EDT Office Visit [facility] ADULT DENTAL [address] [place] [address] Brooks, Cely [address] [place] [address] documented as of this encounter Visit Diagnoses Not on filedocumented in this encounter Care Teams Shipping Processor Relationship Specialty Start Date End Date Amelia Montalvo DO [address] [place] [address] PCP - General Family Medicine 06/23/12 documented as of this encounter
--- OUTSIDE RECORDS SUMMARY | 2024-09-13 14:44 | XMS_ITS | Encounter Summary ---
Author Organization [employer] [facility] Address [address] [facility] 7t [place] [address] Care Team Providers Care Coordinator Of Placement Name Role Phone Amelia Montalvo DO Primary Care Provider [phone] Encounter Details Date Type Department Care Team (Late Contact Info) Description 11/04/[address] [address] Amelia Montalvo DO [address] [place] [address] Social History Tobacco Use Types Packs/Day Years [...] suspected to have Coronavirus/COVID-19? No / Unsure 11/05/2022 11:14 AM EDT documented as of this encounter Plan of Treatment Upcoming Encounters Date Type Department Care Team (Late Contact Info) Description 10/08/2024 1:00 PM EDT Clinical Support [address] [address] Mai Bishop RN 10/16/2024 9:45 AM EDT Office Visit [address] [address] Amelia Montalvo DO [address] [place] [address] 11/06/2024 10:00 AM EDT Office Visit [facility] ADULT DENTAL [address] [place], [place] [phone] Cely Guy [address] [place] [address] documented as of this encounter Visit Diagnoses Not on filedocumented in this encounter Care Teams Coordinator Of Placement Relationship Specialty Start Date End Date Amelia Montalvo DO [address] [place] [address] PCP - General Family Medicine 06/23/12 documented as of this encounter
--- OUTSIDE RECORDS SUMMARY | 2024-09-13 14:44 | XMS_ITS | Encounter Summary ---
Author Organization [employer] [facility] Address [address] [facility] 7[address] [place] [address] Care Team Providers Care Oxidized Finish Plater Name Role Phone Amelia Montalvo DO Primary Care Provider [phone] Encounter Details Date Type Department Care Team (Latest Contact Info) Description 06/04/2020 Abstract [facility] CONVERSIONS Dental, Provider, DDS Social History [...] 10/08/2024 1:00 PM EDT Clinical Support [facility] MEDICINE [address] [place] [address] Mai Bishop RN 10/16/2024 9:45 AM EDT Office Visit [facility] MED[facility]INE [address] [place] [address] Amelia Montalvo DO 230 [place] [address] 11/06/2024 10:00 AM EDT Office Visit [facility] ADULT DENTAL [address] [place] [address] Cely Guy [address] [place] [address] documented as of this encounter Visit Diagnoses Not on filedocumented in this encounter Care Teams Oxidized Finish Plater Relationship Specialty Start Date End Date Amelia Montalvo DO [address] [place] [address] PCP - General Family Medicine 06/23/12 documented as of this encounter
--- OUTSIDE RECORDS SUMMARY | 2024-09-13 14:44 | XMS_ITS | Encounter Summary ---
Author Organization [employer] Address [address] [facility] 7t [place] [address] Care Team Providers Care Filter Tip Inspector Name Role Phone Amelia Montalvo DO Primary Care Provider + [phone] Reason for Visit * Reason Comments Med Refill Encounter Details Date Type Department Care Team ([facility] st Contact Info) Description 11/15/2023 Refill [facility] MEDICINE [address] [place] [address] Charley Miller MD [address] [place] [address] Social History Tobacco Use Types Packs/Day Years [...] 10/08/2024 1:00 PM EDT Clinical Support [facility] MEDICINE [address] [place] [address] Mai [employer], JAMAAL 10/16/2024 9:45 AM EDT Office Visit [facility] MEDICINE [address] [place] [address] Amelia Montalvo DO [address] [place] [address] 11/06/2024 10:00 AM EDT Office Visit [facility] ADULT DENTAL [address] [place] [address] Brooks, Cely [address] [place] [address] documented as of this encounter Visit Diagnoses Not on filedocumented in this encounter Care Teams Filter Tip Inspector Relationship Specialty Start Date End Date Amelia Montalvo DO [address] [place] [address] PCP - General Family Medicine 06/23/12 documented as of this encounter
--- OUTSIDE RECORDS SUMMARY | 2024-09-13 14:44 | XMS_ITS | Encounter Summary ---
Author Organization [employer] [facility] Address [address] [facility] 7t [place] [address] Care Team Providers Care Mobile Disc Jockey Name Role Phone Amelia Montalvo DO Primary Care Provider + [phone] Reason for Visit * Reason Comments Med Refill Encounter Details Date Type Department Care Team (Late st Contact Info) Description 12/07/2022 Refill [facility] [address] [place] [address] Iram Ascencio FNP Social History Tobacco Use [...] suspected to have Coronavirus/COVID-19? No / Unsure 12/07/2022 8:00 AM EDT documented as of this encounter Plan of Treatment Upcoming Encounters Date Type Department Care Team (Late st Contact Info) Description 10/08/2024 1:00 PM EDT Clinical Support [facility] [address] [place] [phone] Mai Bishop RN 10/16/2024 9:45 AM EDT Office Visit [facility] [address] [place] [phone] Amelia Montalvo DO 230 [place] [address] 11/06/2024 10:00 AM EDT Office Visit [facility] ADULT DENTAL [address] [place] [address] Farhat Guyaris [address] [place] [address] documented as of this encounter Visit Diagnoses Not on filedocumented in this encounter Care Teams Mobile Disc Jockey Relationship Specialty Start Date End Date Amelia Montalvo DO [address] [place] [address] PCP - General Family Medicine 06/23/12 documented as of this encounter
--- OUTSIDE RECORDS SUMMARY | 2024-09-13 14:44 | XMS_ITS | Encounter Summary ---
Author Organization [employer] Address [address] [facility] 7t [place] [address] Care Team Providers Care Rigging Foreman Name Role Phone Amelia Montalvo DO Primary Care Provider [phone] Encounter Details Date Type Department Care Team (Late st Contact Info) Description 10/07/2022 Orders Only [facility] [address] [place], [place] [phone] Amelia Kemp LPN Social History Tobacco Use [...] suspected to have Coronavirus/COVID-19? No / Unsure 10/08/2022 8:33 AM EDT documented as of this encounter Plan of Treatment Upcoming Encounters Date Type Department Care Team (Late st Contact Info) Description 10/08/2024 1:00 PM EDT Clinical Support [facility] MEDICINE [address] [place] [address] Mai Bishop RN 10/16/2024 9:45 AM EDT Office Visit [facility] MEDICINE [address] [place] [address] Amelia Montalvo DO [address] [place], [place] [phone] 11/06/2024 10:00 AM EDT Office Visit [facility] ADULT DENTAL [address] [place] [address] Cely Guy [address] [place] [address] documented as of this encounter Procedures Procedure Name Priority Date/Time Associated Diagnosis Comments CT HEAD WO CONTRAST Routine 10/22/2022 1 0:52 AM EDT documented in this encounter Results * CT Head w/o Contrast (10/22/2022 10:52 AM EDT) Anatomical Region Laterality Modality Head, Neck Computed Tomogra phy 10/22/2022 10:5 2 AM EDT Narrative 11/02/2022 3:00 PM EDT ? [facility] ?[address] ?[place] [address] ? CT Scan Report ? Signed ? Patient: Maida Mitchell I ?MR#: [id number] ?? 71 ? : 1955 ?Acct:[id number] ? Age/Sex: 67 / F ?ADM Date: 10/22/22 ? Loc: HO.CT ? Attending Dr: Igor Landry MD ? Ordering Physician: IGOR LANDRY MD ?? Date of Service: 10/22/22 ?? Procedure(s): CT head/brain wo IV con ?? Accession Number(s): [id number] ? cc: IGOR LANDRY MD ? EXAMINATION: ?? CT HEAD WITHOUT CONTRAST ? CLINICAL INFORMATION: ?? Swelling left parietal scalp ? COMPARISON: ?? Previous head CT most recent May 2021 and brain MRI November 2019 ? TECHNIQUE: ?? Contiguous axial imaging was performed from the skull base to vertex ?? without intravenous administration of contrast. ? This CT examination was performed using dose optimization techniques as ?? appropriate, variously including the following: ?? *Automated exposure control ?? *Adjustment of mA and/or kV according to patient size (this includes ?? techniques or standardized protocols for targeted exams where dose is ?? matched to indication/reason for exam; i.e. extremities or head) ?? *Use of iterative reconstruction technique ? DLP: ?? 657 mGy-cm ? FINDINGS: ?? There is no evidence of an extra-axial collection. There is no evidence ?? of intra-axial or extra-axial hemorrhage. The ventricles and ?? extra-axial CSF spaces are appropriate. Mccall-white matter ?? differentiation is normal. No mass, mass effect or infarct. Review of ?? bone windows is normal. No skull fracture or bone lesion. Normal soft ?? tissues. Visualized paranasal sinuses mastoid air cells and middle ears ?? are clear. ? CT/CT head/brain wo IV con ?? IMPRESSION: ?? No acute intracranial pathology. ? Dictated By: ?Bouchra Menjivar MD ? Signed By: ?<Electronically signed by Bouchra Menjivar MD in OV> ? 11/02/22 1457 ? DD/ 1052 ? TD/TT: ? Claims Correspondence Clerk: SUJ ? Procedure Note Lola, Image - 11/02/[address] [place] [address] [address] Scan Report Signed Patient: Maida Mitchell IMR#: [id number] : 1955cct:[id number] Age/Sex: 67 / FADM Date: 10/22/22 Loc: HO.CT Attending Dr: Igor Landry MD Ordering Physician: IGOR LANDRY MD Date of Service: 10/22/22 Procedure(s): CT head/brain wo IV con Accession Number(s): [id number] cc: IGOR LANDRY MD EXAMINATION: CT HEAD WITHOUT CONTRAST CLINICAL INFORMATION: Swelling left parietal scalp COMPARISON: Previous head CT most recent May 2021 and brain MRI November 2019 TECHNIQUE: Contiguous axial imaging was performed from the skull base to vertex without intravenous administration of contrast. This CT examination was performed using dose optimization techniques as appropriate, variously including the following: *Automated exposure control *Adjustment of mA and/or kV according to patient size (this includes techniques or standardized protocols for targeted exams where dose is matched to indication/reason for exam; i.e. extremities or head) *Use of iterative reconstruction technique DLP: 657 mGy-cm FINDINGS: There is no evidence of an extra-axial collection. There is no evidence of intra-axial or extra-axial hemorrhage. The ventricles and extra-axial CSF spaces are appropriate. Mccall-white matter differentiation is normal. No mass, mass effect or infarct. Review of bone windows is normal. No skull fracture or bone lesion. Normal soft tissues. Visualized paranasal sinuses mastoid air cells and middle ears are clear. CT/CT head/brain wo IV con IMPRESSION: No acute intracranial pathology. Dictated By: Bouchra Menjivar MD Signed By: <Electronically signed by Bouchra Menjivar MD in OV> 11/02/22 1457 DD/ 1052 TD/TT: Claims Correspondence Clerk: REGINA [facility] External Provider IMG CT PROCEDURES Edited Result - Final documented in this encounter Visit Diagnoses Not on filedocumented in this encounter Care Teams Rigging Foreman Relationship Specialty Start Date End Date Amelia Montalvo DO [address] [place] [address] PCP - General Family Medicine 06/23/12 documented as of this encounter
--- OUTSIDE RECORDS SUMMARY | 2024-09-13 14:44 | XMS_ITS | Clinical Summary ---
Author Organization [employer] Address [address] [place] [address] [address] [place] [address] Care Team Providers Care Banquet Chef Name Role Phone Amelia Montalvo DO Primary Care Provider + [phone] Allergies Active Allergy Reactions Criticality Noted Date Comments Tetanus Toxoid 10/04/2022 Other reaction(s): shaking When little per (who says pt's mom told him this) Tetanus-Diphtheria Toxoids Td Anaphylaxis High 04/16/2024 Vancomycin Other High 02/15/2014 Medications * This document contains information received from the source organization and may not represent a complete record from that organization. Misc. Devices (Pulse Oximeter Deluxe) misc 1 each if needed (for SOB or severe cough). Si tiene un nivel abajo de 90%, llama la clinica. Si tiene corta respiracion o dificuldad de respirar, vaya a un cuido medico. 1 each 023 Active ibuprofen 400 MG tablet Take 1 tablet (400 mg) by mouth every 6 (six) hours if needed for moderate pain or fever for up to 30 doses. 30 tablet 023 Active Bisacodyl EC 5 MG EC tablet 023 Active docusate sodium (Colace) 100 MG capsule 023 Active Linzess 290 MCG capsule 023 Active metoclopramide (Reglan) 10 MG tablet Take 10 mg by mouth 4 times daily. 023 Active mirtazapine (Remeron) 15 MG tablet Take 15 mg by mouth at bedtime. 023 Active famotidine (Pepcid) 40 MG tablet Take 1 tablet (40 mg) by mouth at bedtime. 30 tablet 11 Active albuterol (Ventolin HFA) 108 (90 Base) MCG/ACT inhalerIndication s:Mild intermittent asthma with acute exacerbation INHALE 2 PUFFS BY MOUTH EVERY 4 HOURS NEEDED FOR WHEEZING OR SHORTNESS OF BREATH 18 g 1 Active cholecalciferol (Vitamin D-3) 50 MCG (2000 UT) tablet TAKE 1 TABLET BY MOUTH EVERY MORNING 90 tablet Active cyanocobalamin (Vitamin B-12) 1000 MCG tabletIndications :Vitamin B12 deficiency TAKE 1 TABLET BY MOUTH EVERY MORNING 90 tablet 3 Active omeprazole (PriLOSEC) [address] capsule Take 1 capsule (20 mg) by mouth before breakfast and before evening meal. Do not crush or chew. 60 capsule 2024 Active Calcium Citrate-Vitamin D (Citracal Petites/Vitamin D) 200-6.25 MG-MCG tablet Take 2 tablets by mouth 2 times daily. 120 tablet Active ondansetron ODT (Zofran-ODT) 4 MG disintegrating tablet Take 1 tablet by mouth if needed each day for nausea. Active SUMAtriptan (Imitrex) 50 MG tablet Take 1 tablet by mouth if needed each day for migraine. Active Diclofenac Sodium 1 % gel Apply 2 g topically if needed in the morning, at noon, in the evening, and at bedtime (pain). 150 g Active acetaminophen (Tylenol 8 Hour) 650 MG ER tablet Take 1 tablet (650 mg) by mouth every 8 (eight) hours if needed for mild pain. Do not crush, chew, or split. 60 tablet Active zafirlukast (Accolate) 20 MG tablet TAKE 1 TABLET BY MOUTH TWICE DAILY IN THE MORNING AND IN THE EVENING AFTER MEALS 180 tablet Active loratadine (Claritin) 10 MG tablet TAKE 1 TABLET BY MOUTH EVERY MORNING 90 tablet 1 Active albuterol (2.5 MG/3ML) 0.083% nebulizer solution INHALE 1 AMPULE USING A NEBULIZER EVERY 8 HOURS 90 mL 1 Active baclofen (Lioresal) 10 MG tablet TAKE 1/2 TABLET BY MOUTH THREE TIMES DAILY NEEDED FOR MUSCLE SPASMS 30 tablet 1 Active alendronate (Fosamax) 70 MG tablet take 1 tablet by mouth once a week with 6 to 8 oz of water 30 min before first food of day. do not lie down for 30 minutes 4 tablet 5 Active Multiple Vitamins-Iron (Tab-A-Aurea/Iron) tablet TAKE 1 TABLET BY MOUTH EVERY MORNING WITH FOOD 90 tablet 3 Active fluticasone (Flonase) 50 MCG/ACT nasal spray USE 2 SPRAYS IN EACH NOSTRIL ONCE DAILY 48 g Active Fiber-Lax 625 MG tablet TAKE 1 TABLET BY MOUTH TWICE DAILY IN THE MORNING AND IN THE EVENING 60 tablet 11 Active divalproex (Depakote ER) 250 MG 24 hr tabletIndications :Chronic migraine without aura without status migrainosus, not intractable TAKE 1 TABLET BY MOUTH TWICE DAILY IN THE MORNING AND IN THE EVENING 60 tablet 3 Active rOPINIRole (Requip) 0.25 MG tablet TAKE 1 TABLET BY MOUTH AT BEDTIME (1-3 HOURS BEFORE BEDTIME) 30 tablet 11 Active melatonin 5 MG tablet TAKE 1 TO 2 TABLETS BY MOUTH AT BEDTIME NEEDED 60 tablet 3 Active Fluticasone-Salme terol 250-50 MCG/ACT aerosol powder INHALE 1 PUFF BY MOUTH TWICE DAILY, RINSE MOUTH AFTER USING. 60 each 3 Active Azelastine HCl 137 MCG/SPRAY solution USE 1 SPRAY IN EACH NOSTRIL TWICE DAILY 30 mL 3 Active clonazePAM (KlonoPIN) 1 MG tabletIndications :Other specified anxiety disorders TAKE 1 TABLET BY MOUTH EVERY TWELVE HOURS 56 tablet 025 2024 Active clonazePAM (KlonoPIN) 1 MG tabletIndications :Other specified anxiety disorders TAKE 1 TABLET BY MOUTH EVERY TWELVE HOURS 56 tablet 025 2024 Discontinued(R eorder (will not trigger notification to Pharmacy)) Active Problems Problem Noted Date Diagnosed Date Abfraction 05/10/2024 Fracture of tooth enamel and dentin 05/10/2024 Osteoporosis 11/03/2023 Assessment & Plan (11/03/2023 2:19 PM EDT): -DEXA with osteoporosis OCT 2023 -reviewed results with pt -she agrees to start fosamax weekly -reviewed potential adverse reactions with pt -start Ca/Vit D BID -encouraged regular exercise Anemia 11/03/2023 Assessment & Plan (11/03/2023 2:16 PM EDT): Hgb stable w/ low iron ferritin OCT 2022 -cont MVI daily -repeat with fasting labs Healthcare maintenance 11/03/2023 Assessment & Plan (11/03/2023 2:22 PM EDT): -s/p flu vaccine MAY 2023 -s/p COVID vaccine AUG 2023 -she is allergic to Td -s/p pneumovax JUN 2021 -s/p prevnar AUG 2018 -s/p zoster vaccine MAR 2014 -s/p Shingrix FEB 2021 -Hep A/B immune -T-spot negative MAR 2016 -pap wnl/HPV negative JUL 2013 with PP midwifery -mammo BIRADS 09 OCT 2022, appt next mos -DEXA with osteoporosis OCT 2023 -colonoscopy nml JAN 2015 -fasting labs wnl OCT 2022 -STI/HIV screen negative DEC 2020 Generalized abdominal pain 10/25/2023 Assessment & Plan (10/25/2023 3:33 PM EDT): Likely due to antibiotics she will finish them soon I advise patient to avoid NSAIDs, spicy and acid food, I advise to eat at the same time every day, I advise to elevate the head of the bed and take medications as prescribe C/w pantoprazole Zofran for nausea Chronic pain of left knee 01/13/2023 Assessment & Plan (11/03/2023 2:16 PM EDT): Awaiting TKA -MRI L knee w/ complex tearing of lateral meniscus, mild fraying of medial meniscus, mild degeneration of ACL and PCL, grade 1 sprain MCL, and moderate OA w/ joint effusion APR 2023 -keep pre-op eval as scheduled -f/u with ortho as scheduled History of COVID-19 11/05/2022 Restless leg syndrome 11/05/2022 Fibromyalgia 11/05/2022 Degenerative disc disease, lumbar 11/05/2022 Chronic pelvic pain 09/25/2014 Vitamin D deficiency 02/15/2014 Chronic pain syndrome 04/30/2013 Chronic allergic rhinitis 07/25/2012 Assessment & Plan (11/03/2023 2:09 PM EDT): -cont claritin and flonase daily -cont accolate daily -review administrative support specialist next visit PREET (generalized anxiety disorder) 07/25/2012 Assessment & Plan (11/03/2023 2:15 PM EDT): With worsening sx in setting of life stressors -she denies any current SI/HI -she has number for therapist and crisis and contracts for safety -cont current med regimen as per psychiatry, strongly advised d/w psychiatrist re: med mgmt at upcoming appt -cont klonopin BID -d/c vistaril due to SEs -strongly encouraged trial acupuncture -f/u with therapist and psychiatrist as scheduled Osteoarthritis 07/25/2012 Asthma 07/25/2012 Chronic low back pain 07/25/2012 Chronic obstructive lung disease 07/25/2012 Assessment & Plan (11/03/2023 2:09 PM EDT): -cont advair BID -cont spiriva daily -cont albuterol as needed -f/u with pulm as scheduled, due DEC 2023 Vitamin B12 deficiency 07/25/2012 Elevated fasting glucose 07/25/2012 Chronic gastroesophageal reflux disease 07/25/19 13 Assessment & Plan (11/03/2023 2:12 PM EDT): Sx uncontrolled -BA swallow with mild GERD, small hiatal hernia, and active gastritis AUG 2023 -repeat EGD as per GI -change protonix to omeprazole BID -cont pepcid nightly -H. pylori neg APR 2023, repeat prior to next visit -f/u with GI next mos as scheduled Hiatal hernia 07/25/2012 Chronic migraine 07/25/2012 Assessment & Plan (11/03/2023 2:10 PM EDT): -cont depakote daily -cont imitrex prn -f/u with Dr. Tang as scheduled, review next visit Osteopenia 07/25/2012 Chronic constipation 03/14/2012 Assessment & Plan (11/03/2023 2:14 PM EDT): Sx uncontrolled -encouraged senna nightly -encouraged fiber supplementation BID, will have tabs placed into medboxes -cont colace BID -cont linzess daily -cont dulcolax prn -trial probiotic daily -f/u with GI next mos as scheduled Resolved Problems Problem Noted Date Diagnosed Date Resolved Date Cough in adult patient 04/02/202404/13 Acute swimmer's ear of right side 04/02/2024 04/13/2024 Assessment & Plan (04/02/2024 6:55 PM EDT): Topical abx prescribed COPD exacerbation 04/02/2024 04/13/2024 Assessment & Plan (04/02/2024 6:56 PM EDT): Pt with cough, increased sputum production and increased dypsnea, due to constitutional symptoms and adventitious breath sounds will order chest x-ray, will treat for presumptive COPD exacerbation covering for CAP Pneumonia of right lower lob e due to infectious organism 04/02/2024 04/13/2024 Assessment & Plan (04/02/2024 6:57 PM EDT): RLL pneumonia found on x-ray, rtc in 3 days if not improving or rapidly worsening, repeat film ordered for in 4-6 weeks Preop examination 12/13/2023 04/13/2024 Assessment & Plan (12/13/2023 4:41 PM EDT): RCRI score is 0 which is 3.9% Surgery should proceed as schedule It was advise NPO after midnight the day of the procedure She can take her medication for anxiety the day of the procedure with small sip of water Chronic migraine without aur a without status migrainosus, not intractable 10/25/2023 11/03/2023 Assessment & Plan (10/25/2023 3:32 PM EDT): I advise to avoid migraine triggers like red wine, chocolate, cheese, strong perfumes I will send her prescription again for divalproex, and also prescribed zofran, f/u with neurology Acute headache 10/25/2023 11/03/2023 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 Referred for stress test and TTE. Per pt to be performed tests this month. -In current evaluation by tube bending machine operator for Atypical chest pain but difficult to assess.--Referred for echocardiogram and stress perfusion imaging study. --per pt thinks has apt for next week -order today chem and pt to have CBC and iron panel order by PCP -to have labs today -will hold on clearance for now -pt will need to complete cardiac evaluation first -advised pt that as soon she has TTE and stress test done to call here and to request results are fax here , --will need to wait for those results prior completing clearance note-pt expressed understating of plan. -will do COVID 19 booster today -f w PCP as rec at her last apt -if able to clear pt for surgery can advise pt to use her COPD inh in am of procedure as well can take lamotrigine w sip of water if taking in am , In regards her clonazepam will need to rec surgeon to discuss w anesthesiologist if would prefer pt to hold med on day of surgery Dyspnea on exertion 10/04/2022 11/06/19 Influenza-like symptoms 10/04/202210/10 Seasonal allergies 12/15/2017 Gingivitis 10/04/2013 11/05/2022 Encounters Date Type Department Care Team Description 08/28/2024 Telephone [facility] [address] [place] [address] Amelia Montalvo DO Recall Appt. 08/28/2024 Travel 08/21/2024 Refill [facility] [address] [place] [address] Amelia Montalvo DO Other specified anxiety disorders 07/26/2024 Refill [facility] [address] [facility] [place] [address] Amelia Montalvo DO 07/23/2024 1:00 PM EST Clinical Support [facility] [address] [facility] [place] [place] [address] Mai Bishop, JAMAAL Anxiety (Primary Dx) 07/23/2024 Refill [facility] [address] [facility] [place] [address] Mai Bishop RN Other specified anxiety disorders 07/23/2024 Travel 07/23/2024 Refill [facility] [address] [facility] [place] [address] Amelia Montalvo DO Other specified anxiety disorders 07/23/2024 Telephone [facility] [address] [facility] [place] [address] Mai Bishop, RN Recommend SKIN TOGGLER Tier 2 06/20/2024 Refill [facility] [address] [facility] [place] [address] Amelia Montalvo DO from Last 3 Months Immunizations Name Administration Dates Next Due Hep B, Unspecified 10/30/2014,08/01/2014, 014 Hep B, adult 10/30/2014,08/01/2014,06/27/2014 Influenza High-dose Quadriva lent Preservative Free 05/13/2023,03/26/2022 Influenza injectable quadriv alent IIV4 with preservative 04/11/2018,03/24/2017,03/10/2016 Influenza injectable quadriv alent preservative free 07/01/2021,04/04/2019,02/27/2016 Influenza, High Dose Seasona l, Preservative Free 04/16/2024 Influenza, Split (incl. yolanda fied surface antigen) 02/23/2014,03/14/2012 Influenza, Unspecified 03/26/2022 Pfizer Covid-19 Vaccine 12+ 04/16/2024, Pneumococcal Conjugate PCV 13 08/21/2018 Pneumococcal Polysaccharide PPSV23 07/01/2021,,07/12/1994 RSV Bivalent 03/05/2024 Zoster, Recombinant 03/02/2021,12/29/2020 Zoster, live 04/07/2014 Family History Medical History Relation Name Comments Depression Brother Polio Brother Seizures Brother Diabetes Mother Hypertension Mother Osteoporosis Mother Asthma Sister Seizures Sister Relation Name Status Comments Brother Mother Sister Social History Tobacco Use Types Packs/Day Years Used Date Smoking Tobacco: Never Passive Smoke Exposure: Never Smokeless Tobacco: Never Tobacco Cessation:Counseling Given: Not Answered Alcohol Use Standard Drinks/Week Comments Not Currently [...] not to disclose 2021 10:14 AM EDT Last Filed Vital Signs Vital Sign Reading Time Taken Comments Blood Pressure 126/76 05/10/2024 9:59 AM EDT Pulse 101 04/16/2024 10:26 AM EDT Temperature 36.1 ??C (97 ??F) 04/16/2024 10:26 AM EDT Respiratory Rate 18 04/16/2024 10:26 AM EDT Oxygen Saturation 97% 04/02/2024 9:09 AM EDT Inhaled Oxygen Concentration - - Weight 74.4 kg (164 lb) 04/16/2024 10:26 AM EDT Height 172.7 cm (5' 8 ) 04/16/2024 10:26 AM EDT Body Mass Index 24.94 04/16/2024 10:26 AM EDT Plan of Treatment Upcoming Encounters Date Type Department Care Team (Late st Contact Info) Description 10/08/2024 1:00 PM EDT Clinical Support [facility] [address] [place] [phone] Mai Bishop RN 10/16/2024 9:45 AM EDT Office Visit [facility] [address] [place] [phone] Amelia Montalvo DO [address] [place] [address] 11/06/2024 10:00 AM EDT Office Visit [facility] [address] [place] [address] Cely Guy [address] [place] [address] Health Maintenance Due Date Last Done Comments CT Colonography 1953 FIT DNA/Cologuard 1953 FIT 1953 FOBT 1955 Sigmoidoscopy 1953 Alcohol/Substance Use Screening 1965 DTaP/Tdap/Td Vaccines (1 - Tdap) 1972 Mammogram 1993 Depression Monitoring (PHQ-9) 06/13/2024 12/13/2023, 12/13/2023 Dental Oral Exam 08/26/2024 02/23/2024, , 03/29/2022, Additional history exists SDOH Screening 10/26/2024 10/27/2023 Dental Prophylaxis 11/06/2024 05/07/2024, 0 12/07/2022, 03/29/2022, Additional history exists Depression Screening 12/12/2024 12/13/2023, 12/13/19 Dental X-Ray: Bitewings 02/23/2025 02/23/20, 12/07/2022, 03/29/2022, Additional history exists Dental X-Ray: Full Mouth 03/30/2025 03/29/2022, 12/09 Tobacco Screening 05/10/2025 05/10/2024 Colonoscopy 05/31/2029 05/31/2019 Colorectal Cancer Screening 05/31/2029 Hepatitis B Vaccines Completed 10/30/2014, 10/30/2014, 08/01/2014, Additional history exists Hepatitis C Screening Completed 01/06/2021 Zoster Vaccines Completed 03/02/2021, 12/10, 04/07/2014 Pneumococcal Vaccine: 50+ Years Completed 07/01/2021, 08/21/2018, 05/02/2012, Additional history exists RSV Patients and Patients Aged 60 years or older Completed 03/05/2024 COVID-19 Vaccine Completed 04/16/2024, 11/2023, 05/20/2021, Additional history exists Influenza Vaccine Completed 04/16/2024, , 03/26/2022, Additional history exists HIB Vaccines Aged Out No longer eligi ble based on patient's age to complete this topic HPV Vaccines Aged Out No longer eligi ble based on patient's age to complete this topic Hepatitis A Vaccines Aged Out No long er eligible based on patient's age to complete this topic IPV Vaccines Aged Out No longer eligi ble based on patient's age to complete this topic Meningococcal Vaccine Aged Out No marisol viviana eligible based on patient's age to complete this topic RSV under 20 months Aged Out No longe r eligible based on patient's age to complete this topic Rotavirus Vaccines Aged Out No longer eligible based on patient's age to complete this topic Procedures Procedure Name Priority Date/Time Associated Diagnosis Comments POCT OSMIN-14 URINE DRUG SCREEN Routine 07/23/2024 1:47 PM EST Anxiety PROPHYLAXIS - ADULT Routine 05/07/2024 9 :00 AM EDT BITEWINGS - 4 RADIOGRAPHIC IMAGES Routine 02/23/2024 8:00 AM EDT PERIODIC ORAL EVALUATION - ESTABLISHED PATIENT Routine 02/23/2024 8:00 AM EDT INTRAORAL - COMPLETE SERIES OF RADIOGRAPHIC IMAGES Routine 03/29/2022 12:00 AM EDT ZZZ HISTORICAL HEPATITIS C AB W/REFL TO HCV RNA, QN, PCR Routine 01/06/2021 8:12 AM EDT HM COLONOSCOPY Routine 05/31/2019 10:01 AM EST from Last 3 Months or Most Recently Relevant to Health Maintenance Results * POCT OSMIN-14 Urine Drug Screen (07/23/2024 1:47 PM EST) Benzodiazepines Screen, Urine Positive Urine Urine specimen obtained by clean catch procedure / Unknown 07/23/2024 1:47 PM EST Mai Bañuelos, RN - 07/23/2024 1:47 PM EST UTOX cup Lot#[id number] Exp. 04/04/26 Internal Pass Control Amelia Montalvo DO POINT OF CARE TEST ENTER/MAKAYLA T ORDERABLES Final Result * HEPATITIS C AB W/REFL TO HCV RNA, QN, PCR (01/06/2021 8:12 AM EDT) HEPATITIS C ANTIBODY NON-REACT JULIOCESAR NON-REACT JULIOCESAR [facility] INDEX 0.01 <1.00 [facility] Comment: ?? HCV antibody was non-reactive. There is no laboratory ?? evidence of HCV infection. ?? In most cases, no further action is required. However, if recent HCV exposure is suspected, a test for HCV RNA (test code 17535) is suggested. ?? For additional information please refer to http://education.[employer]/faq/MQI89s5 (This link is being provided for informational/ educational purposes only.) ?? 01/06/2021 8:12 AM EDT Amelia Katia DO HISTORICAL/NON ORDERABLE LAB S Final Result Performing Organization Address City/State/[facility] Co de Phone Number [facility] [address] * Hm Colonoscopy (05/31/2019 10:01 AM EST) Historical Provider HEALTH MAINTENANCE Final Result from Last 3 Months or Most Recently Relevant to Health Maintenance Insurance [facility] Care Teams Banquet Chef Relationship Specialty Start Date End Date Amelia Montalvo DO [address] [place], [place] [id number] PCP - General Family Medicine 06/23/12
== END 2024-09-13 12:11 | disposition home or self-care (01) ==
LOC: HO.HOSX 12:10
PROVIDERS: Visit Provider Orthopaedic Surgery
DX: Z96.653 Presence of artificial knee joint, bilateral (principal); M25.562 Pain in left knee; M25.561 Pain in right knee
CPT/HCPCS: 73562; 99212

== ENCOUNTER 2024-09-13 12:29 | Outpatient (AMB) | payer OTHER, SELFPAY ==
--- NOTE | 2024-09-13 12:40 | A.OFFVIS_ITS ---
Intake Visit Reasons: OV-left knee pain/limited weight bearing Intake Note: Maida is a 69 year old female who presents today for a follow up of her Left Knee as she is having continued pain s/p Left TKA 12/20/23. Patient states that her pain is worse at night and she feels that her right knee is causing her a lot of pain. RThe pain is anterior and burning. Denies injury, fever, chills. Allergies vancomycin [VANCOMYCIN] Allergy (Severe, Verified 09/13/24 12:52) REDNESS,RASH,SWELLING Tetanus & Diphtheria Tox,Adult Allergy (Severe, Uncoded 08/02/24 13:42) FEVER,DIFF.BREATHING PFSH Medical History Osteoarthritis of left knee COPD exacerbation Hypoxia Gastric pain Vaginal irritation History of revision of total replacement of right knee joint Lumbar radiculopathy Osteoarthritis GERD (gastroesophageal reflux disease) Small bowel motility disorder COPD (chronic obstructive pulmonary disease) Anxiety Surgical History History of left knee replacement History of right knee joint replacement History of total right knee replacement History of ear surgery Hx of colonoscopy History of esophagogastroduodenoscopy (EGD) Family History Father Diabetes Mother Diabetes Osteoporosis HTN (hypertension) Sister Pancreas cancer Social History Household Members: None Housing: Apartment Are you a primary school child care attendant to a significant other at home: No Do you presently have visiting nurse or other home services: No Alcohol intake: never Patient Tobacco Use Status: Former Tobacco user Tobacco use type: Cigarette e-Cigarette/Vaping Use: Never Used Second Hand Smoke Exposure: No Advance Directives Date on File: 11/28/20 service: No Current occupational status: unemployed and disabled 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 Bialteral total knee arthroplasty in expected post operative position with no hardware complications or evidence of loosening Assessment & Plan Assessment & Plan (1) Status post bilateral unicompartmental knee replacement: Code(s): Z96.653 - Presence of artificial knee joint, bilateral Category: Surgical Plan: s/p bilateral knee replacement with bilateral knee pain. Her left was done 9 mo ago and is improving. She has complaints of body pain and wants to feel better. I think she will continue to improve but she is incredulous. It may be reasonable to see pain management but I am not sure intervention within one year of surgery is indicated. She can return to see me in 3 months. Orders: Orders XR knee RT 1V 09/13/24 M25.569 - Pain in unspecified knee XR knee LT 3V 09/13/24 M25.562 - Pain in left knee Referrals Pain Management Referral Z96.653 - Presence of artificial knee joint, bilateral Coding Level of Care Code Est Pt Level 3 (72899) Diagnoses Status post bilateral unicompartmental knee replacement Z96.653
== END 2024-09-13 13:04 | disposition home or self-care (01) ==
PROVIDERS: PCP Family Medicine; Visit Provider Orthopaedic Surgery
DX: Z47.89 Encounter for other orthopedic aftercare (principal); Z96.653 Presence of artificial knee joint, bilateral
CPT/HCPCS: 99213

== ENCOUNTER → 2024-09-13 12:34 | Outpatient (BNV) | payer OTHER, SELFPAY | PROVIDERS: Visit Provider Radiology Diagnostic Radiology | DX: M25.562 Pain in left knee (principal); Z96.652 Presence of left artificial knee joint | CPT/HCPCS: 73562 ==

== ENCOUNTER 2024-09-19 09:42 | Outpatient (REF) | payer OTHER, SELFPAY ==
--- OUTSIDE RECORDS SUMMARY | 2024-09-19 12:20 | XMS_ITS | Encounter Summary ---
Author Organization [facility] Address [address] [place] [address] Care Team Providers Care Transit Specialist Name Role Phone Amelia Montalvo DO Primary Care Provider [phone] Reason for Visit * Reason Onset Date Comments Pre-op clearance notes 08/26/2023 Encounter Details Date Type Department Care Team (Late st Contact Info) Description 08/26/[address] [facility] MEDICINE [address] [place] [address] Amelia Montalvo DO [address] [place] [address] Pre-op clearance notes Social History Tobacco Use [...] 08/15 and it can be faxed to [phone] documented in this encounter Plan of Treatment Upcoming Encounters Date Type Department Care Team (Late st Contact Info) Description 10/08/2024 1:00 PM EDT Clinical Support [facility] MEDICINE [address] [place] [address] Mai Bishop RN 10/16/2024 9:45 AM EDT Office Visit [facility] MEDICINE [address] [place] [address] Amelia Montalvo DO [address] [place] [address] 11/06/2024 10:00 AM EDT Office Visit [facility] ADULT DENTAL [address] [place] [address] Cely Guy [address] [place] [address] documented as of this encounter Visit Diagnoses Not on filedocumented in this encounter Care Teams Transit Specialist Relationship Specialty Start Date End Date Amelia Montalvo DO [address] [place] [id number] PCP - General Family Medicine 06/23/12 documented as of this encounter
--- OUTSIDE RECORDS SUMMARY | 2024-09-19 12:20 | XMS_ITS | Encounter Summary ---
Author Organization [facility] [facility] Address [address] [facility] [address] [place] [address] Care Team Providers Care [employer] Carpenter Name Role Phone Amelia Montalvo DO Primary Care Provider [phone] Encounter Details Date Type Department Care Team (Latest Contact Info) Description 01/15/2021 Abstract [facility] CONVERSIONS Dental, Provider, DDS Social History [...] 10/08/2024 1:00 PM EDT Clinical Support [facility] MEDICINE [address] [place] [phone] Mai Bishop RN 10/16/2024 9:45 AM EDT Office Visit [facility] MEDICINE [address] [place] [phone] Amelia Montalvo DO [address] [place] [address] 11/06/2024 10:00 AM EDT Office Visit [facility] ADULT DENTAL [address] [place] [address] Cely Guy [address] [place] [address] documented as of this encounter Visit Diagnoses Not on filedocumented in this encounter Care Teams [employer] Carpenter Relationship Specialty Start Date End Date Amelia Montalvo DO [address] [place] [id number] PCP - General Family Medicine 06/23/12 documented as of this encounter
--- OUTSIDE RECORDS SUMMARY | 2024-09-19 12:20 | XMS_ITS | Encounter Summary ---
Author Organization [employer] [facility] Address [address] [facility] 7t [place] [address] Care Team Providers Care Dealer Compliance Representative Name Role Phone Amelia Montalvo DO Primary Care Provider + [phone] Reason for Visit * Reason Comments Med Refill Encounter Details Date Type Department Care Team (Late st Contact Info) Description 12/07/2022 Refill [facility] WALK-IN CENTER [address] [place] [address] Iram Ascencio FNP Social History Tobacco Use [...] Description 10/08/2024 1:00 PM EDT Clinical Support [facility] MEDICINE [address] [place] [address] [phone] Mai Bishop RN 10/16/2024 9:45 AM EDT Office Visit [facility] MEDICINE [address] [place] [address] [phone] Amelia Montalvo DO [address] [place] [address] 11/06/2024 10:00 AM EDT Office Visit [facility] ADULT DENTAL [address] [place] [address] Farhat Guyaris [address] [place] [address] documented as of this encounter Visit Diagnoses Not on filedocumented in this encounter Care Teams Dealer Compliance Representative Relationship Specialty Start Date End Date Amleia Montalvo DO [address] [place] [address] PCP - General Family Medicine 06/23/12 documented as of this encounter
--- OUTSIDE RECORDS SUMMARY | 2024-09-19 12:20 | XMS_ITS | Encounter Summary ---
Author Organization [employer] Address [address] [facility] 7t [place] [address] Care Team Providers Care Edger Liner Name Role Phone Amelia Montalvo DO Primary Care Provider + [phone] Reason for Visit * Reason Comments Med Refill Encounter Details Date Type Department Care Team ([facility] st Contact Info) Description 03/14/2024 Refill [facility] MEDICINE [address] [place] [address] Amelia Montalvo DO [address] [place] [address] Other specified anxiety disorders Social History Tobacco [...] Description 10/08/2024 1:00 PM EDT Clinical Support [facility] MEDICINE [address] [place] [phone] Mai Bishop, JAMAAL 10/16/2024 9:45 AM EDT Office Visit [facility] MEDICINE [address] [place] [phone] Amelia Montalvo DO [address] [place] [address] 11/06/2024 10:00 AM EDT Office Visit [facility] ADULT DENTAL [address] [place] [address] Cely Guy [address] [place] [address] documented as of this encounter Visit Diagnoses Diagnosis Other specified anxiety disorders documented in this encounter Additional Health Concerns Assessment Noted Time PHQ-9 Depression Total Score: 18 024 2:12 PM EDT documented as of this encounter Care Teams Edger Liner Relationship Specialty Start Date End Date Amelia Montalvo DO [address] [place] [phone] PCP - General Family Medicine 06/23/12 documented as of this encounter
--- OUTSIDE RECORDS SUMMARY | 2024-09-19 12:20 | XMS_ITS | Encounter Summary ---
Author Organization [employer] Address [address] [facility] 7t [place] [address] Care Team Providers Care Yard Inspector Name Role Phone Amelia Montalvo DO Primary Care Provider [phone] Encounter Details Date Type Department Care Team (Late st Contact Info) Description 10/07/2022 Orders Only [facility] CHC MED & PEDS [address] [place], [place] [phone] Amelia Kemp LPN Social History Tobacco Use [...] 10/08/2024 1:00 PM EDT Clinical Support [facility] MEDICINE [address] [place] [phone] Mai Bishop RN 10/16/2024 9:45 AM EDT Office Visit [facility] MEDICINE [address] [place] [address] Amelia Montalvo DO [address] [place], [place] [phone] 11/06/2024 10:00 AM EDT Office Visit [facility] ADULT DENTAL [address] [place] [address] Cely Guy [address] [place] [address] documented as of this encounter Procedures Procedure Name Priority Date/Time Associated Diagnosis Comments CT HEAD WO CONTRAST Routine 10/22/2022 1 0:52 AM EDT documented in this encounter Results * CT Head w/o Contrast (10/22/2022 10:52 AM EDT) Anatomical Region Laterality Modality Head, Neck Computed Tomogra phy 10/22/2022 10:5 2 AM EDT Narrative 11/02/2022 3:00 PM EDT ? [facility] ?[address] ?[place] [address] ? CT Scan Report ? Signed ? Patient: Maida Mitchell I ?MR#: [id number] ?? 71 ? : 1955 ?Acct:[id number] ? Age/Sex: 67 / F ?ADM Date: 10/22/22 ? Loc: HO.CT ? Attending Dr: Igor Landry MD ? Ordering Physician: IGOR LANDRY MD ?? Date of Service: 10/22/22 ?? Procedure(s): CT head/brain wo IV con ?? Accession Number(s): [id number] ? cc: IGOR LANDRY MD ? EXAMINATION: [...] 1457 ? DD/ 1052 ? TD/TT: ? Lumber Tallier: SUJ ? Procedure Note Lola, Image - 11/02/[address] [place] [address] [address] Scan Report Signed Patient: Maida Mitchell IMR#: [id number] : 1955cct:[id number] Age/Sex: 67 / FADM Date: 10/22/22 Loc: HO.CT Attending Dr: Igor Landry MD Ordering Physician: IGOR LANDRY MD Date of Service: 10/22/22 Procedure(s): CT head/brain wo IV con Accession Number(s): [id number] cc: IGOR LANDRY MD EXAMINATION: CT HEAD [...] in OV> 11/02/22 1457 DD/ 1052 TD/TT: Lumber Tallier: REGINA [facility] External Provider IMG CT PROCEDURES Edited Result - Final documented in this encounter Visit Diagnoses Not on filedocumented in this encounter Care Teams Yard Inspector Relationship Specialty Start Date End Date Amelia Montalvo DO [address] [place] [address] PCP - General Family Medicine 06/23/12 documented as of this encounter
--- OUTSIDE RECORDS SUMMARY | 2024-09-19 12:20 | XMS_ITS | Encounter Summary ---
Author Organization [employer] Address [address] [facility] 7t [place] [address] Care Team Providers Care Telehealth Coordinator Name Role Phone Amelia Montalvo DO Primary Care Provider + [phone] Reason for Visit * Reason Comments Med Refill Encounter Details Date Type Department Care Team ([facility] st Contact Info) Description 11/15/2023 Refill [facility] MEDICINE [address] [place] [address] Charley Miller MD 230 [place] [address] Social History Tobacco Use Types Packs/Day Years [...] Clinical Support [facility] MEDICINE [address] [place] [phone] Mai Bishop, JAMAAL 10/16/2024 9:45 AM EDT Office Visit [facility] MEDICINE [address] [place] [address] Amelia Montalvo DO [address] [place] [address] 11/06/2024 10:00 AM EDT Office Visit [facility] ADULT DENTAL [address] [place] [address] Brooks, Cely [address] [place] [address] documented as of this encounter Visit Diagnoses Not on filedocumented in this encounter Care Teams Telehealth Coordinator Relationship Specialty Start Date End Date Amelia Montalvo DO [address] [place] [phone] PCP - General Family Medicine 06/23/12 documented as of this encounter
--- OUTSIDE RECORDS SUMMARY | 2024-09-19 12:20 | XMS_ITS | Encounter Summary ---
Author Organization [employer] Address [address] [facility] 7t [place] [address] Care Team Providers Care Bundle Packer Name Role Phone Amelia Montalvo DO Primary Care Provider [phone] Reason for Visit * Reason Comments Med Refill Encounter Details Date Type Department Care Team ([facility] st Contact Info) Description 12/09/2023 Refill [facility] MEDICINE [address] [place] [address] Amelia Montalvo DO 230 [place] [address] Social History Tobacco Use Types Packs/Day Years [...] Description 10/08/2024 1:00 PM EDT Clinical Support [facility] MEDICINE [address] [place] [address] Mai Bishop RN 10/16/2024 9:45 AM EDT Office Visit [facility] MEDICINE [address] [place] [address] Amelia Montalvo DO [address] [place] [address] 11/06/2024 10:00 AM EDT Office Visit [facility] ADULT DENTAL [address] [place] [phone] Brooks, Cely [address] [place] [address] documented as of this encounter Visit Diagnoses Not on filedocumented in this encounter Care Teams Bundle Packer Relationship Specialty Start Date End Date Amelia Montalvo DO [address] [place] [address] PCP - General Family Medicine 06/23/12 documented as of this encounter
--- OUTSIDE RECORDS SUMMARY | 2024-09-19 12:20 | XMS_ITS | Encounter Summary ---
Author Organization [employer] [facility] Address [address] [facility] 7t [place] [address] Care Team Providers Care Instructional Resource Teacher Name Role Phone Amelia Montalvo DO Primary Care Provider [phone] Encounter Details Date Type Department Care Team (Latest Contact Info) Description 08/10/2018 Abstract [facility] CONVERSIONS Dental, Provider, DDS Social History [...] 1:00 PM EDT Clinical Support [facility] MEDICINE [address] [place] [address] Mai Bishop RN 10/16/2024 9:45 AM EDT Office Visit [facility] MEDICINE [address] [place] [address] Amelia Montalvo DO 230 [place] [address] 11/06/2024 10:00 AM EDT Office Visit [facility] ADULT DENTAL [address] [place] [address] Cely Guy [address] [place] [address] documented as of this encounter Visit Diagnoses Not on filedocumented in this encounter Care Teams Instructional Resource Teacher Relationship Specialty Start Date End Date Amelia Montalvo DO [address] [place] [address] PCP - General Family Medicine 06/23/12 documented as of this encounter
--- OUTSIDE RECORDS SUMMARY | 2024-09-19 12:20 | XMS_ITS | Encounter Summary ---
Author Organization [employer] Address [address] [facility] 7t [place] [address] Care Team Providers Care Director Trade Name Role Phone Amelia Montalvo DO Primary Care Provider [phone] Encounter Details Date Type Department Care Team [...] Support [facility] MEDICINE [address] [place] [address] Mai Bishop, JAMAAL 10/16/2024 9:45 AM EDT Office Visit [facility] MEDICINE [address] [place] [address] Amelia Montalvo DO [address] [place] [address] 11/06/2024 10:00 AM EDT Office Visit [facility] ADULT DENTAL [address] [place] [address] Brooks, Cely [address] [place] [address] documented as of this encounter Visit Diagnoses Not on filedocumented in this encounter Additional Health Concerns Assessment Noted Time PHQ-9 Depression Total Score: 18 06/2 024 2:12 PM EDT documented as of this encounter Care Teams Director Trade Relationship Specialty Start Date End Date Amelia Montalvo DO [address] [place] [address] PCP - General Family Medicine 06/23/12 documented as of this encounter
--- OUTSIDE RECORDS SUMMARY | 2024-09-19 12:20 | XMS_ITS | Encounter Summary ---
Author Organization [employer] [facility] Address [address] [facility] 7t [place] [address] Care Team Providers Care Windrower Operator Name Role Phone Amelia Montalvo DO Primary Care Provider [phone] Encounter Details Date Type Department Care Team (Late st Contact Info) Description 10/26/2022 Orders Only [facility] MEDICINE [address] [place] [phone] Michelle Vides LPN Social History Tobacco Use [...] Description 10/08/2024 1:00 PM EDT Clinical Support [facility] MEDICINE [address] [place] [address] Mai Bishop RN 10/16/2024 9:45 AM EDT Office Visit [address] [address] Amelia Montalvo DO [address] [place] [address] 11/06/2024 10:00 AM EDT Office Visit [facility] ADULT DENTAL [address] [place], [place] [phone] Cely Guy [address] [place] [address] documented as of this encounter Visit Diagnoses Not on filedocumented in this encounter Care Teams Windrower Operator Relationship Specialty Start Date End Date Amelia Montalvo DO [address] [place] [address] PCP - General Family Medicine 06/23/12 documented as of this encounter
--- OUTSIDE RECORDS SUMMARY | 2024-09-19 12:20 | XMS_ITS | Encounter Summary ---
Author Organization [employer] Address [address] [facility] 7t [place] [address] Care Team Providers Care Napper Tender Name Role Phone Amelia Montalvo DO Primary Care Provider [phone] Reason for Visit * Reason Onset Date Comments Med Refill 08/21/2024 Encounter Details Date Type Department Care Team ([facility] st Contact Info) Description 08/21/2024 Refill [facility] MED & PEDS [address] [place] [address] Amelia Montalvo DO [address] [place] [address] Other specified anxiety disorders Social History Tobacco [...] 10/08/2024 1:00 PM EDT Clinical Support [facility] MEDICINE [address] [place] [address] Armond Bishop RN 10/16/2024 9:45 AM EDT Office Visit [facility] MEDICINE [address] [place] [address] Amelia Montalvo DO [address] [place] [address] 11/06/2024 10:00 AM EDT Office Visit [facility] ADULT DENTAL [address] [place] [address] Cely Guy [address] [place] [address] documented as of this encounter Visit Diagnoses Diagnosis Other specified anxiety disorders documented in this encounter Additional Health Concerns Assessment Noted Time PHQ-9 Depression Total Score: 18 024 2:12 PM EDT documented as of this encounter Care Teams Napper Tender Relationship Specialty Start Date End Date Amelia Montalvo DO [address] [place] [address] PCP - General Family Medicine 06/23/12 documented as of this encounter
--- OUTSIDE RECORDS SUMMARY | 2024-09-19 12:20 | XMS_ITS | Encounter Summary ---
Author Organization [employer] Address [address] [facility] 7t [place] [address] Care Team Providers Care Paper Cone Drying Machine Operator Name Role Phone Amelia Montalvo DO Primary Care Provider [phone] Reason for Visit * Reason Onset Date Comments Recall Appt. 08/28/2024 Encounter Details Date Type Department Care Team ([facility] st Contact Info) Description 08/28/2024 Telephone [facility] MEDICINE [address] [place] [address] Amelia Montalvo DO [address] [place] [address] Recall Appt. Social History Tobacco Use Types [...] Description 10/08/2024 1:00 PM EDT Clinical Support [facility] MEDICINE [address] [place] [address] Mai Bishop RN 10/16/2024 9:45 AM EDT Office Visit [facility] MEDICINE 230 [place] [address] Amelia Montalvo DO [address] [place] [address] 11/06/2024 10:00 AM EDT Office Visit [facility] ADULT DENTAL [address] [place] [address] Cely Guy 230 [place] [address] documented as of this encounter Visit Diagnoses Not on filedocumented in this encounter Additional Health Concerns Assessment Noted Time PHQ-9 Depression Total Score: 18 024 2:12 PM EDT documented as of this encounter Care Teams Paper Cone Drying Machine Operator Relationship Specialty Start Date End Date Amelia Montalvo DO [address] [place] [address] PCP - General Family Medicine 06/23/12 documented as of this encounter
--- OUTSIDE RECORDS SUMMARY | 2024-09-19 12:20 | XMS_ITS | Encounter Summary ---
Author Organization [employer] [facility] Address [address] [facility] 7t [place] [address] Care Team Providers Care Transit Mixer Driver Name Role Phone Amelia Montalvo DO Primary Care Provider [phone] Encounter Details Date Type Department Care Team (Late Contact Info) Description 11/04/[address] [address] Amleia Montalvo DO [address] [place] [address] Social History Tobacco Use Types Packs/Day Years [...] Description 10/08/2024 1:00 PM EDT Clinical Support [address] [address] Mai Bishop RN 10/16/2024 9:45 AM EDT Office Visit [address] [address] Amelia Montalvo DO [address] [place] [address] 11/06/2024 10:00 AM EDT Office Visit [facility] ADULT DENTAL 230 [place], [place] [phone] Cely Guy [address] [place] [address] documented as of this encounter Visit Diagnoses Not on filedocumented in this encounter Care Teams Transit Mixer Driver Relationship Specialty Start Date End Date Amelia Montalvo DO [address] [place] [address] PCP - General Family Medicine 06/23/12 documented as of this encounter
--- OUTSIDE RECORDS SUMMARY | 2024-09-19 12:20 | XMS_ITS | Data Portability ---
Author Organization [employer] [place] [employer] Address [address] [place] [address] Care Team Providers Care Sole Stapler Welt Name Role Phone HIM CCA OTHER [facility] Primary Care Provider Assessment Encounter Date Assessment Date Assessment LastModified by Organization Details LastModified Time 07/28/2023 07/28/2023 I provided real -time medical direction via phone for this encounter, and was available for additional phone based assistance as needed. I have reviewed and agree with the Assessment and Plan as documented by the Bi Report Developer. We discussed the diagnostic uncertainty of home [...] verbalized understanding of instructions to the medic [email or web address] Not available 07/29/2023 00:10:23 04/11/2024 04/11/2024 As noted, we wer e called to see this patient regarding concerns of chest tightness and increased wob. Evaluation in the field was performed by my piling cutter colleague, as noted above, I provided real-time [...] worsening serious symptoms, particularlyworsening shortness of breath [email or web address] Not available 04/11/2024 18:52:12 Plan of Treatment Reminders Order Date Submit Date Provider Last Modified By Organization Details Last Modified Time Details Appointments None recorded. Lab influenza virus A + B and SARS CoV 2 (COVID-19) and RSV RNA panel, AKASH+probe, respiratory specimen 2023 024 [place] [facility] (Centralized Electronic Ordering - All Locations), Patient Can Go To The Location Of Their Choice, [id number] 04:09:28 rapid SARS CoV 2 Ag, QL IA, respiratory specimen 2023 024 [email or web address] 0 [facility], [address] [place] [address], [id number], 12:36:39 rapid flu (A+B) 2023 024 [email or web address] 0 [facility], [address] [place] [address], [id number], 12:36:41 Referral None recorded. Procedures None recorded. Surgeries None recorded. Imaging None recorded. Medication Orders prednisone 20 mg tablet 2023 [email or web address] [facility], [address] [place] [address], [id number], 16:11:44 prednisone 20 mg tablet 2023 [facility], [address] [place] [address], [id number], 4 12:49:19 albuterol sulfate 2.5 mg/3 mL (0.083 %) solution for nebulizatio n 2023 [facility], [address] [place], [place], [id number], 4 12:49:19 Zithromax Z-Thomas 250 mg tablet 2023 024 [facility], [address] [place], [place], [id number], 4 12:26:06 Mucinex DM 30 mg-600 mg tablet,exte nded release 12 hr 2023 024 [facility], [address] [place], [place], [id number], 4 11:00:00 Patient TargetsNo targets recorded. Patient InstructionsNo instructions recorded. Reason for Referral None Reported. Results Created Date Observation Date Name Description Value Unit Range Abnormal Flag Note LastModifiedBy Organization Detail LastModifiedTime 07/28/1907/28/2023 COVID -19, RSV, FLU A/B PCR covid-19 PCR specimen source NASAL Not Available [facility] (Centralized Electronic Ordering - All Locations) Patient Can Go To The Location Of Their Choice, [id number] 07/29/2023 04:09:28 07/28/1907/29/2023 COVID -19, RSV, FLU [...] Go To The Location Of Their Choice, [id number] 07/29/2023 04:09:28 07/28/1907/29/2023 COVID -19, RSV, FLU [...] Go To The Location Of Their Choice, [facility] 07/29/2023 04:09:28 07/28/19 24 07/29/2023 COVID -19, [...] Go To The Location Of Their Choice, [facility] 07/29/2023 04:09:28 07/28/1907/29/2023 COVID -19, RSV, FLU [...] ng. Resul t repor pilar to the [facility]. All test resul ts must be corre [...] Go To The Location Of Their Choice, [facility] 07/29/2023 04:09:28 07/28/19 24 07/28/2023 rapid flu (A+B) Flu negati ve Not Available [facility] ed [address] [place] [address], [phone], 07/28/2023 12:36:12 07/28/19 24 07/28/2023 rapid SARS CoV 2 Ag, QL IA, respi rator y speci men rapid SARS CoV 2 Ag, QL IA, respiratory specimen negati ve Not Available [facility] ed [address] [place] [address], [phone], 07/28/2023 12:36:04 Result Notes None recorded. Medical Equipment None Reported. Allergies Allergen ID Allergen Name Allergen Category Reaction Reaction Severity Criticality Documentation Date Start Date Code Code System Note Provider Name and Address Organization Details Recorded Time 4376 vancomyci n medicatio n Not available Not available Not available 07/28/2023 98003 RxNorm Not Available [facility] - production 4 03:35:06 4377 Vaccine product containin g only Clostridi um tetani antigen (medicina l product) medicatio n Not available Not available Not available 07/28/2023 59397 2002 SNOMED Janette Nice MD [address] [place] [address],[address], [place], [phone], [place] [employer] 4 12:27:09 Medications Name Sig Start Date Stop Date Status Note LastModified by Organization Details LastModified Time medbox status USE DIRECTED active Not Available Not Available No t Available pulse oximet airial [id number] USE FOR SHORTNESS OF BREATH OR FOR [...] t Available calcium 200 mg (as citrate)-vit pinto D3 6.25 mcg (250 unit) tablet TAKE [...] Address Organization Details Last Updated DateTime 4 61148.2 64 g 97 % 97 % 172.72 cm 97.7 [degF] 17 /min 97 /min 120 mm[Hg] 90 mm[Hg] Not Available [facility] - production 4 12:21:43 Date Recorded Body temperature Heart rate Oxygen saturation Oxygen saturation in Arterial blood by Pulse oximetry Systolic blood pressure Diastolic blood pressure Provider Name and Address Organization Details Last Updated DateTime 4 98.1 [degF] 77 /min 98 % 98 % 138 mm[Hg] 94 mm[Hg] Not Available [employer] - production 16:07:34 Social History None recorded. Functional Status None recorded. Mental Status None recorded. Family History Nothing Reported. Medical History No medical history recorded. Gynecological HistoryNo gynecological history recorded. Obstetrics History GPAL:G 0 P 0 0 0 0 Past Encounters Encounter ID Performer Location Encounter Start Date Encounter Closed Date Diagnosis/Indication Diagnosis SNOMED-CT Code Diagnosis ICD10 Code Diagnosis Note [id number] Janette Nice MD Main - [facility] [address] 07/28/2023 12:22:19 07/31/2023 13:34:03 Upper respiratory infection 48183910 J06.9 Likely viral. Advised we will call [...] afebrile without color nasal discharge or sputum [id number] Fortino Guzman MD Main - [facility] [address] [place] [phone] 08/08/2023 16:47:19 08/09/2023 11:01:47 Viral upper respiratory tract infection 437732735 J06.9 Acute bronchitis 8225666 2 J20.9 This 77-year-ol d male has had congestion and a cough for almost a month. Mucinex DM hasn't been effective. I ordered a Z-Thomas. He will follow-up with his PCP for any persistent symptoms. The patient agreed with this plan. [id number] Lissy San MD Main - [address] [address] 01/24/2024 12:21:41 01/24/2024 18:25:34 Cough 10490191 R05.9 68 year old female with a [...] assessment and plan as documented by the piling cutter. I provided real-time medical direction for this encounter and was immediatel y available to provide additional phone-base d assistance as needed. We discussed the diagnostic uncertaint y of home visits and associated risks. We discussed the need to seek care urgently/e mergently in the setting of any new or worsening symptoms. [id number] Jeet Stovall MD Main - [address] [address] 04/11/2024 16:07:31 04/11/2024 23:08:50 Acute exacerbation of chronic obstructive pulmonary disease 557624919 J44.1 Health Concerns Section Related Observation LastModified by Organization Detai ls LastModified Time None Recorded Concern Status LastModified by Organization Details LastModified Time None Recorded Advance Directives Directive None Recorded Payers Encounter Date Sequence Insurance Name Policy Number Policy Kimble Covered Member ID Kimble Member ID Guarantor Name 07/28/2023 1 [facility] - DOS ON OR AFTER 2022 - DUAL ELIGIBLE - SNF OPTIONS AND ONE CARE (MEDICARE REPLACEMENT/ADV ANTAGE - HMO) Maida Mitchell [id number] Maida Mitchell 08/08/2023 1 [facility] - DOS ON OR AFTER 2022 - DUAL ELIGIBLE - SNF OPTIONS AND ONE CARE (MEDICARE REPLACEMENT/ADV ANTAGE - HMO) Maida Mitchell [id number] Maida Mitchell 01/24/2024 1 [facility] - DOS ON OR AFTER 2022 - DUAL ELIGIBLE - SNF OPTIONS AND ONE CARE (MEDICARE REPLACEMENT/ADV ANTAGE - HMO) Maida Mitchell [id number] Maida Mitchell 04/11/2024 1 [facility] - DOS ON OR AFTER 2022 - DUAL ELIGIBLE - SNF OPTIONS AND ONE CARE (MEDICARE REPLACEMENT/ADV ANTAGE - HMO) Maida Mitchell [id number] Maida Mitchell Notes Date Note Type Note [...] Weakness/Lethargy, Headache, Asthma, COPDPMH: COPD/AsthmaAllergie s: VancomycinComments: Ceo & Board Director verified the member's name//address and phone number [...] ................... ................... ................... ................... ................... ................... ........ Bi Report Developer Note From Humza Rabago: Encountered patient conscious, [...] Extremities is free of trauma and edema. [facility] contacted: orders for PCR and orthostatic vital science performed results reported to [facility]. PCR swab to be taken to [facility] laboratory. [facility] to write prescription for medication regimen at patient? s pharmacy of choice. Red flags discussed with patient, patient urged to seek further medical attention. Should she develop priority symptoms, such as chest pain, syncope, fevers, acute shortness of breath or changes in vision. Patient expresses understanding and would like to remain home at this time. Bi Report Developer Allergies: Vancomycin ................... ................... ................... ................... ................... [...] during the exam Janette Nice MD [address] [facility],[address], [place], [address], [employer] 07/29/2023 00:10:48 08/08/2023 text/html CRC Nurse Triage Notes (Demetra Romero): Reason For Request: sob Chief Complaints: Shortness of Breath/Dyspnea PMH: COPD/Asthma Allergies: Vancomycin Comments: Verified identity/ / address Call completed with electronic pagination system operator Member is a 68 yr old female, HAND EDGE BANDER calling for member with increased weakness and sob for over a week. Per HAND EDGE BANDER , [facility] went out on 07/28. Member was found to be Negative per PCR and mucinex sent . Per member is taking medication. Member is not on home 02, but has neb . Member dry cough, no wheezing when breathing Fortino Guzman MD [address] [facility],[address], [place], [address], [employer] 08/08/2023 17:01:14 01/24/2024 text/html HPI: Member had [...] No further information needed to process visit. Bi Report Developer POC Test Results from Yared Saenz - ALS Rapid COVID antigen (12:49:53) COVID: - ................... ................... ................... ................... ................... ................... ................... ........ Bi Report Developer Note From Yared Saenz: [facility] dispatched for a 68 YO F [...] prescribed. PT still drinking plenty of fluids. [facility] performs rapid PCR covid test which is negative. PT denies takin any OTC medication for the pain. [facility] contacts PT [facility] who recommends fluids and rest at home. Believes this to be a viral common cold and to let it run its course. [facility] also recommends to follow up with GI doctor about any recent changes with her eating changes or pain levels. [facility] explains to pt that if she experiences any sudden onset SOB, chest pain or sudden N/v that she should contact [facility] for a higher level of care. ................... ................... ................... ................... ................... ................... ................... ........ Disposition: Fulfilled Lissy San MD [address] [facility],[address], [place], [address], [employer] 01/24/2024 13:37:22 04/11/2024 text/html CRC Nurse Triage Notes (Demetra Romero): Reason For Request: PT reporting chest tightness + and some shortness of breath Chief Complaints: Shortness of Breath/Dyspnea PMH: COPD/Asthma Allergies: Vancomycin Comments: Ceo & Board Director verified the member's name//address and phone number. Member is a 68 yr old kinyarwanda female , a/o3 PMH >ASthma / copd [...] ................... ................... ................... ................... ................... ................... ........ Bi Report Developer Note From Ayo Tomlin: Dispatched for evaluation of a 68 y/o female, Syriac speaking only, complaining and requesting an evaluation of shortness of breath and tightness in chest. Upon arrival to pt apartment, pt ambulatory waiting for providers at door. Pt sat on couch and assessment performed, vital signs obtained. Language line utilized due to pt speaking Syriac only, with pt and providers able to communicate in short sentences in Montenegrin. Assessment found CAOX4, airway open and patent, [...] confirmed pt allergies and pharmacy and contacted [facility]. [facility] ordered Duoneb treatment and to call back after treatment completed with further assessment. Duoneb administered with pt stating improvement in symptoms upon completion, lung sounds clear in all [place], pt work of breathing noted to be improved, pt breathing slower and with less effort. [facility] contacted with update, [facility] ordering second duoneb and 40mg prednisone, with [facility] sending prednisone prescription to pt pharmacy. Providers administered 40mg prednisone and began duoneb treatment. Red flags discussed. Providers then left the residence. All times approximate. ................... ................... ................... ................... ................... ................... ................... ........ Disposition: Pankaj Stovall MD [address] [facility],[address], [place], [address], [employer] 04/11/2024 18:52:26 OBGyn Episode No OBEpisode recorded.
--- OUTSIDE RECORDS SUMMARY | 2024-09-19 12:20 | XMS_ITS | Clinical Summary ---
Author Organization [employer] Address [address] [place] [address] [address] [place] [address] Care Team Providers Care Paper Bag Machine Operator Name Role Phone Amelia Montalvo DO Primary Care Provider + [phone] Allergies Active Allergy Reactions Criticality Noted Date [...] and flonase daily -cont accolate daily -review forensic psychologist next visit PREET (generalized anxiety disorder) 07/25/2012 [...] from body habitus and lead placement; normal MI and corrected QT. Referred for stress test and TTE. Per pt to be performed tests this month. -In current evaluation by home advisor for Atypical chest pain but difficult to [...] Type Department Care Team Description 09/16/2024 Refill [facility] [address] [place] [address] Amelia Montalvo DO 08/28/2024 Telephone [facility] [address] [place] [address] Amelia Montalvo DO Recall Appt. 08/28/2024 Travel 08/21/2024 Refill [facility] [address] [place], [place] [phone] Amelia Montalvo DO Other specified anxiety disorders 07/26/2024 Refill [facility] [address] [place] [address] Amelia Montalvo DO 07/23/2024 1:00 PM EST Clinical Support [facility] [address] [place] [address] Mai Bishop RN Anxiety (Primary Dx) 07/23/2024 Refill [facility] [address] [place] [address] Mai Bishop RN Other specified anxiety disorders 07/23/2024 Travel 07/23/2024 Refill [facility] [address] [place] [address] Amelia Montalvo DO Other specified anxiety disorders 07/23/2024 Telephone [facility] [address] [place] [address] Mai Bishop RN Recommend BORDERER Tier 2 from Last 3 Months Immunizations [...] Description 10/08/2024 1:00 PM EDT Clinical Support [facility] [address] [place] [address] Mai Bishop, JAMAAL 10/16/2024 9:45 AM EDT Office Visit [facility] [address] [place] [address] Amelia Montalvo DO [address] [place] [address] 11/06/2024 10:00 AM EDT Office Visit [facility] [address] [place] [address] Cely Guy [address] [place] [address] Health Maintenance Due Date Last Done Comments [...] - 07/23/2024 1:47 PM EST [employer] cup Lot#[id number] Exp. 04/04/26 Internal Pass Control Amelia Montalvo DO POINT OF CARE TEST ENTER/MAKAYLA T ORDERABLES Final Result * HEPATITIS C AB W/REFL TO HCV RNA, QN, PCR (01/06/2021 8:12 AM EDT) HEPATITIS C ANTIBODY NON-REACT UJLIOCESAR NON-REACT JULIOCESAR [facility] INDEX 0.01 <1.00 [facility] Comment: ?? HCV antibody was non-reactive. There is no laboratory ?? evidence of HCV infection. ?? In most cases, no further action is required. However, if recent HCV exposure is suspected, a test for HCV RNA (test code 97544) is suggested. ?? For additional information please refer to http://[employer].GetPrice/faq/FYC75r7 (This link is being provided for informational/ educational purposes only.) ?? 01/06/2021 8:12 AM EDT Amelia Montalvo DO HISTORICAL/NON ORDERABLE LAB S Final Result [facility] [address] [place] [address], * Hm Colonoscopy (05/31/2019 10:01 AM EST) Historical Provider HEALTH MAINTENANCE Final Result from Last 3 Months or Most Recently Relevant to Health Maintenance Insurance [facility] Care Teams Paper Bag Machine Operator Relationship Specialty Start Date End Date Amelia Montalvo DO [address] [place] [address] PCP - General Family Medicine 06/23/12
--- OUTSIDE RECORDS SUMMARY | 2024-09-19 12:20 | XMS_ITS | Encounter Summary ---
Author Organization [employer] Address [address] [place] [address] Care Team Providers Care Hop Strainer Name Role Phone Amelia Montalvo DO Primary Care Provider + [phone] Reason for Visit * Reason Comments Med Refill Encounter Details Date Type Department Care Team (Late st Contact Info) Description 10/25/2023 Refill [facility] [address] [place] [address] Iram Ascencio FNP Social History Tobacco Use [...] 1:00 PM EDT Clinical Support [facility] [address] [place] [address] Mai Bishop RN 10/16/2024 9:45 AM EDT Office Visit [facility] [address] [place] [address] Amelia Montalvo DO [address] [place] [address] 11/06/2024 10:00 AM EDT Office Visit [facility] [address] [place] [address] Cely Guy [address] [place] [address] documented as of this encounter Visit Diagnoses Not on filedocumented in this encounter Care Teams Hop Strainer Relationship Specialty Start Date End Date Amelia Montalvo DO [address] [place] [address] PCP - General Family Medicine 06/23/12 documented as of this encounter
--- OUTSIDE RECORDS SUMMARY | 2024-09-19 12:20 | XMS_ITS | Encounter Summary ---
Author Organization [employer] Address [address] [facility] [address] [place] [address] Care Team Providers Care Category Development Manager Name Role Phone Amelia Montalvo DO Primary Care Provider + [phone] Reason for Visit * Reason Comments Med Refill Encounter Details Date Type Department Care Team ([facility] st Contact Info) Description 11/07/[address] [facility] [address] [place] [address] Amelia Montalvo DO [address] [place] [address] Other specified anxiety disorders Social History Tobacco [...] 10/08/2024 1:00 PM EDT Clinical Support [facility] [address] [place] [address] Mai Bishop, JAMAAL 10/16/2024 9:45 AM EDT Office Visit [facility] [address] [place] [address] Amelia Montalvo DO [address] [place] [address] 11/06/2024 10:00 AM EDT Office Visit [facility] [address] [place] [address] Cely Guy [address] [place] [address] documented as of this encounter Visit Diagnoses Diagnosis Other specified anxiety disorders documented in this encounter Care Teams Category Development Manager Relationship Specialty Start Date End Date Amelia Montalvo DO [address] [place] [address] PCP - General Family Medicine 06/23/12 documented as of this encounter
--- OUTSIDE RECORDS SUMMARY | 2024-09-19 12:20 | XMS_ITS | Encounter Summary ---
Author Organization [employer] [facility] Address [address] [facility] [address] [place] [address] Care Team Providers Care Structural Drafter Name Role Phone Amelia Montalvo DO Primary Care Provider [phone] Encounter Details Date Type Department Care Team (Latest Contact Info) Description 03/29/2022 Abstract [facility] CONVERSIONS Dental, Provider, DDS Social History Tobacco [...] 1:00 PM EDT Clinical Support [facility] [address] [place] [address] Mai Bishop RN 10/16/2024 9:45 AM EDT Office Visit [facility] [address] [place] [address] Amelia Montalvo DO [address] [place] [address] 11/06/2024 10:00 AM EDT Office Visit [facility]ULT [facility] [address] [place] [address] Cely Guy [address] [place] [address] documented as of this encounter Visit Diagnoses Not on filedocumented in this encounter Care Teams Structural Drafter Relationship Specialty Start Date End Date Amelia Montalvo DO [address] [place] [address] PCP - General Family Medicine 06/23/12 documented as of this encounter
--- OUTSIDE RECORDS SUMMARY | 2024-09-19 12:20 | XMS_ITS | Encounter Summary ---
Author Organization [employer] [facility] Address [address] [facility] [address] [place] [address] Care Team Providers Care Methodologist Name Role Phone Amelia Montalvo DO Primary Care Provider [phone] Encounter Details Date Type Department Care Team (Latest Contact Info) Description 06/04/2020 Abstract [facility] CONVERSIONS Dental, Provider, DDS Social History [...] Clinical Support [facility] [address] [place] [address] Mai Bishop RN 10/16/2024 9:45 AM EDT Office Visit [facility] [address] [place] [address] Amelia Montalvo DO [address] [place] [address] 11/06/2024 10:00 AM EDT Office Visit [facility] ADULT [facility] [address] [place] [address] Cely Guy [address] [place] [address] documented as of this encounter Visit Diagnoses Not on filedocumented in this encounter Care Teams Methodologist Relationship Specialty Start Date End Date Amelia Montalvo DO [address] [place] [address] PCP - General Family Medicine 06/23/12 documented as of this encounter
--- OUTSIDE RECORDS SUMMARY | 2024-09-19 12:20 | XMS_ITS | Encounter Summary ---
Author Organization [facility] Address [address] [place] [address] Care Team Providers Care Soil Conservationist Name Role Phone Amelia Montalvo DO Primary Care Provider [phone] Encounter Details Date Type Department Care Team (Late st Contact Info) Description 10/21/2023 Orders Only [facility] MEDICINE [address] [place] [phone] Provider, MD Santos Social History Tobacco Use [...] Description 10/08/2024 1:00 PM EDT Clinical Support [facility] MEDICINE [address] [place] [address] Mai Bishop RN 10/16/2024 9:45 AM EDT Office Visit [facility] MEDICINE [address] [place] [address] Amelia Montalvo DO [address] [place] [address] 11/06/2024 10:00 AM EDT Office Visit [facility] ADULT DENTAL [address] [place] [address] Brooks, Cely [address] [place] [address] documented as of this encounter Procedures Procedure Name Priority Date/Time Associated Diagnosis Comments HM COLONOSCOPY Routine 05/31/2019 10:01 AM EST documented in this encounter Results * Hm Colonoscopy (05/31/2019 10:01 AM EST) us Historical Provider HEALTH MAINTENANCE Final Result documented in this encounter Visit Diagnoses Not on filedocumented in this encounter Care Teams Soil Conservationist Relationship Specialty Start Date End Date Amelia Montalvo DO [address] [place] [address] PCP - General Family Medicine 06/23/12 documented as of this encounter
--- OUTSIDE RECORDS SUMMARY | 2024-09-19 12:20 | XMS_ITS | Encounter Summary ---
Author Organization [employer] Address [address] [place] [address] Care Team Providers Care Optometry Professor Name Role Phone Amelia Montalvo DO Primary Care Provider [phone] Reason for Visit * Reason Comments Med Refill Encounter Details Date Type Department Care Team ([facility] st Contact Info) Description 09/16/2024 Refill [facility] MEDICINE [address] [place] [address] Amelia Montalvo DO [address] [place] [address] Social History Tobacco Use Types Packs/Day Years [...] Description 10/08/2024 1:00 PM EDT Clinical Support [facility] MEDICINE [address] [place] [address] Mai Bishop RN 10/16/2024 9:45 AM EDT Office Visit [facility] MED[facility]INE [address] [place] [address] Amelia Montalvo DO [address] [place] [address] 11/06/2024 10:00 AM EDT Office Visit [facility] ADULT DENTAL [address] [place] [address] Cely Guy [address] [place] [address] documented as of this encounter Visit Diagnoses Not on filedocumented in this encounter Additional Health Concerns Assessment Noted Time PHQ-9 Depression Total Score: 18 024 2:12 PM EDT documented as of this encounter Care Teams Optometry Professor Relationship Specialty Start Date End Date Amelia Montalvo DO [address] [place] [phone] PCP - General Family Medicine 06/23/12 documented as of this encounter
--- OUTSIDE RECORDS SUMMARY | 2024-09-19 12:20 | XMS_ITS | Encounter Summary ---
Author Organization [employer] Address [address] 7[address] [place] [address] Care Team Providers Care Trade Marker Name Role Phone Amelia Montalvo DO Primary Care Provider [phone] Encounter Details Date Type Department Care Team (Late st Contact Info) Description 09/13/2022 Orders Only [facility] MED & PEDS [address] [place] [address] Amelia Kemp LPN Social History Tobacco Use [...] 1:00 PM EDT Clinical Support [facility] MEDICINE [address] [place] [address] Mai Bishop, JAMAAL 10/16/2024 9:45 AM EDT Office Visit [facility] MEDICINE [address] [place] [address] Amelia Montalvo DO [address] [place] [address] 11/06/2024 10:00 AM EDT Office Visit [facility] ADULT DENTAL [address] [place] [address] Cely Guy [address] [place] [address] documented as of this encounter Visit Diagnoses Not on filedocumented in this encounter Care Teams Trade Marker Relationship Specialty Start Date End Date Amelia Montalvo DO [address] [place] [address] PCP - General Family Medicine 06/23/12 documented as of this encounter
[2024-09-19 16:23] LABS: Bacterial Vaginosis PCR NEGATIVE (Negative); Candida Group PCR NOT DETECTED (Not Detect); Candida glab krusei PCR NOT DETECTED (Not Detect); Trichomonas vaginalis PCR NOT DETECTED (Not Detect)
== END 2024-09-19 09:43 | disposition home or self-care (01) ==
LOC: HO.LNP 09:42
PROVIDERS: PCP Nurse Practitioner Family; Visit Provider Advanced Practice Midwife
DX: N89.8 Other specified noninflammatory disorders of vagina (principal)
CPT/HCPCS: 81515; 99212

== ENCOUNTER 2024-09-19 09:42 | Outpatient (AMB) | payer OTHER, SELFPAY ==
--- NOTE | 2024-09-19 09:54 | MHC.OFFVIS ---
Vital Signs 09/19/24 09:57 Height 5 ft 8 in Weight 165 lb BMI 25.1 Intake Visit Reasons: vaginal odor Intake Note: c/o of vaginal odor x 2 weeks,no dysuria or frequent urination Electric Organ Checker Required: Yes Electric Organ Checker Language: Sonar Technician Services: Electric Organ Checker Present (in person) Electric Organ Checker Name: Peggy COOK Information Interpreted: non-clinical & clinical Nurse Researcher: Nurse Researcher Present (Peggy COOK) Accompanied by: Self / Same As Patient Allergies vancomycin [VANCOMYCIN] Allergy (Severe, Verified 09/19/24 09:59) REDNESS,RASH,SWELLING Tetanus & Diphtheria Tox,Adult Allergy (Severe, Uncoded 09/19/24 09:59) FEVER,DIFF.BREATHING Post menopausal: Yes HPI Comments Details: Patient is here today with complaints of vaginal fishy odor for the last 2 weeks. History of recent antibiotic use. She denies any pelvic pain, vaginal bleeding, urinary symptoms. Not sexually active since 10 years ago. [facility] Medical History Osteoarthritis of left knee COPD exacerbation Hypoxia Gastric pain Vaginal irritation History of revision of total replacement of right knee joint Lumbar radiculopathy Osteoarthritis GERD (gastroesophageal reflux disease) Small bowel motility disorder COPD (chronic obstructive pulmonary disease) Anxiety Surgical History History of left knee replacement History of right knee joint replacement History of total right knee replacement History of ear surgery Hx of colonoscopy History of esophagogastroduodenoscopy (EGD) Family History Father Diabetes Mother Diabetes Osteoporosis HTN (hypertension) Sister Pancreas cancer Social History Household Members: None Housing: Apartment Are you a primary senior resident care director to a significant other at home: No Do you presently have visiting nurse or other home services: No Alcohol intake: never Patient Tobacco Use Status: Former Tobacco user Tobacco use type: Cigarette e-Cigarette/Vaping Use: Never Used Second Hand Smoke Exposure: No Advance Directives Date on File: 11/28/20 service: No Current occupational status: unemployed and disabled 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 Review of Systems Const All systems reviewed & are unremarkable except as noted in HPI and below Physical Exam Vital Signs: BMI result Body Mass Index 25.1 Const General: cooperative, healthy appearing and no acute distress Orientation/consciousness: patient oriented x3 GI Inspection: Yes normal to inspection Palpation (GI): Soft to palpation and Other GI palpation findings present (Nontender) Rectal Exam - Female: visual inspection normal Other: Small introitus, significant atrophy General: Yes bladder normal to palpation External Female Exam: normal appearance of the urethra Speculum Exam - Vagina: normal appearance of the vagina, normal palpation, normal vaginal discharge and vagina atrophic Speculum Exam - Cervix: normal appearance of the cervix and normal palpation Bimanual exam- vagina & uterus: normal bimanual exam, normal palpation, uterine size normal, bladder normal to palpation, normal palpation, uterine shape normal and non-tender Bimanual Exam- Adnexa, other: normal adnexae Neuro General: patient oriented x3 Assessment & Plan Assessment & Plan (1) Vaginal odor: Code(s): N89.8 - Other specified noninflammatory disorders of vagina Plan BV panel obtained await results for plan of care. Discuss probiotic use and changes in vaginal jason after antibiotic use. The patient expressed understanding and agreement with the plan of care. All of her questions and concerns were addressed to the best of my ability. This note is constructed using voice recognition software. While every effort has been made to ensure accuracy, channel director errors may have been included. Coding Level of Care Code Est Pt Level 3 (60335) Diagnoses Vaginal odor N89.8
[2024-09-19 09:57] VITALS: BMI 25.1
--- OUTSIDE RECORDS SUMMARY | 2024-09-19 10:45 | XMS_ITS | Encounter Summary ---
Author Organization [employer] Address [address] [facility] 7t [place] [address] Care Team Providers Care Saw Runner Name Role Phone Amelia Montalvo DO Primary Care Provider +[phone] Reason for Visit * Reason Onset Date Comments Recall Appt. 08/28/2024 Encounter Details Date Type Department Care Team ([facility] st Contact Info) Description 08/28/2024 Telephone [facility] MEDICINE [address] [place] [address] Amelia Montalvo DO 230 [place] [address] Recall Appt. Social History Tobacco Use Types [...] 10/08/2024 1:00 PM EDT Clinical Support [facility] MEDICINE [address] [place] [address] Mai Bishop RN 10/16/2024 9:45 AM EDT Office Visit [facility] MEDICINE [address] [place] [address] Amelia Montalvo DO 230 [place] [address] 11/06/2024 10:00 AM EDT Office Visit [facility] ADULT DENTAL [address] [place] [address] Cely Guy [address] [place] [address] documented as of this encounter Visit Diagnoses Not on filedocumented in this encounter Additional Health Concerns Assessment Noted Time PHQ-9 Depression Total Score: 18 024 2:12 PM EDT documented as of this encounter Care Teams Saw Runner Relationship Specialty Start Date End Date Amelia Montalvo DO [address] [place] [address] PCP - General Family Medicine 06/23/12 documented as of this encounter
--- OUTSIDE RECORDS SUMMARY | 2024-09-19 10:45 | XMS_ITS | Encounter Summary ---
Author Organization [facility] Address [address] [facility] 7t [place] [address] Care Team Providers Care Records Specialist Name Role Phone Amelia Montalvo DO Primary Care Provider [phone] Encounter Details Date Type Department Care Team (Late st Contact Info) Description 10/21/2023 Orders Only [facility] MEDICINE [address] [place] [address] Provider, MD Santos Social History Tobacco Use [...] Description 10/08/2024 1:00 PM EDT Clinical Support [facility] MEDICINE [address] [place] [address] Mai Bishop RN 10/16/2024 9:45 AM EDT Office Visit [facility] MEDICINE [address] [place] [address] Amelia Montalvo DO [address] [place] [address] 11/06/2024 10:00 AM EDT Office Visit [facility] ADULT DENTAL [address] [place] [address] Brooks, Cely 230 [place] [address] documented as of this encounter Procedures Procedure Name Priority Date/Time Associated Diagnosis Comments HM COLONOSCOPY Routine 05/31/2019 10:01 AM EST documented in this encounter Results * Hm Colonoscopy (05/31/2019 10:01 AM EST) us Historical Provider HEALTH MAINTENANCE Final Result documented in this encounter Visit Diagnoses Not on filedocumented in this encounter Care Teams Records Specialist Relationship Specialty Start Date End Date Amelia Montalvo DO 230 [place] [address] PCP - General Family Medicine 06/23/12 documented as of this encounter
--- OUTSIDE RECORDS SUMMARY | 2024-09-19 10:45 | XMS_ITS | Clinical Summary ---
Author Organization [employer] Address [address] [place] [address] 7t [place] [address] Care Team Providers Care Capacitor Pack Press Operator Name Role Phone Amelia Montalvo DO Primary Care Provider + [phone] Allergies Active Allergy Reactions Criticality Noted Date [...] BY MOUTH EVERY MORNING 90 tablet Active omeprazole (PriLOSEC) [address] capsule [...] crush, chew, or split. 60 tablet Active albuterol (2.5 MG/3ML) 0.083% nebulizer solution INHALE 1 AMPULE USING A NEBULIZER EVERY 8 HOURS 90 mL Active baclofen (Lioresal) 10 MG tablet TAKE [...] BY MOUTH EVERY TWELVE HOURS 56 tablet Active loratadine (Claritin) 10 MG tablet TAKE 1 TABLET BY MOUTH EVERY MORNING 90 tablet 1 Active zafirlukast (Accolate) 20 MG tablet TAKE 1 TABLET BY MOUTH TWICE DAILY IN THE MORNING AND IN THE EVENING AFTER MEALS 180 tablet 1 025 Active zafirlukast (Accolate) 20 MG tablet TAKE 1 TABLET BY MOUTH TWICE DAILY IN THE MORNING AND IN THE EVENING AFTER MEALS 180 tablet 1 024 2024 Discontinued loratadine (Claritin) 10 MG tablet TAKE 1 TABLET BY MOUTH EVERY MORNING 90 tablet 1 024 03/10/ 2025 Discontinued clonazePAM (KlonoPIN) 1 MG tabletIndications :Other specified [...] and flonase daily -cont accolate daily -review faith doctor next visit PREET (generalized anxiety disorder) 07/25/2012 [...] from body habitus and lead placement; normal NH and corrected QT. Referred for stress test and TTE. Per pt to be performed tests this month. -In current evaluation by log cooker for Atypical chest pain but difficult to [...] of surgery Dyspnea on exertion 10/04/2022 11/06/19 23 Influenza-like symptoms 10/04/202210/10 Seasonal allergies 12/15/2017 3 Gingivitis 10/04/2013 11/05/2022 Encounters Date Type Department Care Team Description 09/16/2024 Refill [facility] MEDICINE [address] [place] [address] Amelia Montalvo DO 08/28/2024 Telephone [facility] MEDICINE 230 [place] [address] Amelia Montalvo DO Recall Appt. 08/28/2024 Travel 08/21/2024 Refill [facility] CHC MED & PEDS [address] [place], [place] [phone] Amelia Montalvo DO Other specified anxiety disorders 07/26/2024 Refill [facility] MEDICINE [address] [place] [address] Amelia Montalvo DO 07/23/2024 1:00 PM EST Clinical Support [facility] MEDICINE [address] [place] [address] Mai Bishop RN Anxiety (Primary Dx) 07/23/2024 Refill [facility] MEDICINE [address] [place] [address] Mai Bishop RN Other specified anxiety disorders 07/23/2024 Travel 07/23/2024 Refill [facility] MEDICINE [address] [place] [address] Amelia Montalvo DO Other specified anxiety disorders 07/23/2024 Telephone [facility] MEDICINE [address] [place] [address] Mai Bishop RN Recommend SECONDARY HISTORY TEACHER Tier 2 from Last 3 Months Immunizations Name Administration [...] Description 10/08/2024 1:00 PM EDT Clinical Support [facility] MEDICINE [address] [place] [address] Mai Bishop, JAMAAL 10/16/2024 9:45 AM EDT Office Visit [facility] MEDICINE [address] [place] [address] Amelia Montalvo DO 230 [place] [address] 11/06/2024 10:00 AM EDT Office Visit [facility] ADULT DENTAL [address] [place] [address] Cely Guy [address] [place] [address] Health Maintenance Due Date Last Done Comments [...] 12/12/2024 12/13/2023, 12/13/19 Dental X-Ray: [facility] 02/23/2025 02/23/20 24, 12/07/2022, 03/29/2022, Additional history exists Dental X-Ray: [...] - 07/23/2024 1:47 PM EST [employer] cup Lot#[id number] Exp. 04/04/26 Internal Pass Control Amelia Montalvo DO POINT OF CARE TEST ENTER/MAKAYLA T ORDERABLES Final Result * HEPATITIS C AB W/REFL TO HCV RNA, QN, PCR (01/06/2021 8:12 AM EDT) HEPATITIS C ANTIBODY NON-REACT JULIOCESAR NON-REACT JULIOCESAR [facility] INDEX 0.01 <1.00 [facility] Comment: ?? HCV antibody was non-reactive. There is no laboratory ?? evidence of HCV infection. ?? In most cases, no further action is required. However, if recent HCV exposure is suspected, a test for HCV RNA (test code 32571) is suggested. ?? For additional information please refer to [email or web address] (This link is being provided for informational/ educational purposes only.) ?? 01/06/2021 8:12 AM EDT Amelia Montalvo DO HISTORICAL/NON ORDERABLE LAB S Final Result [facility] [address] [place] [address], * Hm Colonoscopy (05/31/2019 10:01 AM EST) Historical Provider HEALTH MAINTENANCE Final Result from Last 3 Months or Most Recently Relevant to Health Maintenance Insurance [facility] D[facility]AL - [facility] Care Teams Capacitor Pack Press Operator Relationship Specialty Start Date End Date Amelia Montalvo DO [address] [place] [address] PCP - General Family Medicine 06/23/12
--- OUTSIDE RECORDS SUMMARY | 2024-09-19 10:45 | XMS_ITS | Encounter Summary ---
Author Organization [employer] [facility] Address [address] [facility] 7[address] [place] [address] Care Team Providers Care Business Area Manager Name Role Phone Amelia Montalvo DO Primary Care Provider [phone] Encounter Details Date Type Department Care Team (Latest Contact Info) Description 01/15/2021 Abstract [facility] CONVERSIONS Dental, Provider, DDS Social History [...] 10/08/2024 1:00 PM EDT Clinical Support [facility] MEDICINE [address] [place] [address] Mai Bishop RN 10/16/2024 9:45 AM EDT Office Visit [facility] MEDICINE [address] [place] [address] Amelia Montalvo DO 230 [place] [address] 11/06/2024 10:00 AM EDT Office Visit [facility] ADULT DENTAL [address] [place] [address] Cely Guy [address] [place] [address] documented as of this encounter Visit Diagnoses Not on filedocumented in this encounter Care Teams Business Area Manager Relationship Specialty Start Date End Date Amelia Montalvo DO [address] [place] [address] PCP - General Family Medicine 06/23/12 documented as of this encounter
--- OUTSIDE RECORDS SUMMARY | 2024-09-19 10:45 | XMS_ITS | Encounter Summary ---
Author Organization [employer] [facility] Address [address] [facility] 7t [place] [address] Care Team Providers Care Tilt Tray Driver Name Role Phone Amelia Montalvo DO Primary Care Provider + [phone] Reason for Visit * Reason Comments Med Refill Encounter Details Date Type Department Care Team (Late st Contact Info) Description 12/07/2022 Refill [facility] [address] [place] [address] Iram Ascencio FNP Social History Tobacco Use [...] Description 10/08/2024 1:00 PM EDT Clinical Support [facility] MEDICINE [address] [place] [address] [phone] Mai Bishop RN 10/16/2024 9:45 AM EDT Office Visit [facility] MED[facility] [address] [place] [phone] Amelia Montalvo DO 230 [place] [address] 11/06/2024 10:00 AM EDT Office Visit [facility] ADULT DENTAL [address] [place] [address] Farhat Guyaris [address] [place] [address] documented as of this encounter Visit Diagnoses Not on filedocumented in this encounter Care Teams Tilt Tray Driver Relationship Specialty Start Date End Date Amelia Montalvo DO 230 [place] [address] PCP - General Family Medicine 06/23/12 documented as of this encounter
--- OUTSIDE RECORDS SUMMARY | 2024-09-19 10:45 | XMS_ITS | Encounter Summary ---
Author Organization [facility] [facility] Address [address] [facility] 7[address] [place] [address] Care Team Providers Care Caterpillar Tractor Operator Name Role Phone Amelia Montalvo DO Primary Care Provider [phone] Encounter Details Date Type Department Care Team (Latest Contact Info) Description 08/10/2018 Abstract [facility] CONVERSIONS Dental, Provider, DDS Social History [...] Description 10/08/2024 1:00 PM EDT Clinical Support [facility] MEDICINE [address] [place] [address] Mai Bishop RN 10/16/2024 9:45 AM EDT Office Visit [facility] MEDICINE [address] [place] [address] Amelia Montalvo DO 230 [place] [address] 11/06/2024 10:00 AM EDT Office Visit [facility] ADULT DENTAL [address] [place] [address] Cely Guy 230 [place] [address] documented as of this encounter Visit Diagnoses Not on filedocumented in this encounter Care Teams Caterpillar Tractor Operator Relationship Specialty Start Date End Date Amelia Montalvo DO [address] [place] [address] PCP - General Family Medicine 06/23/12 documented as of this encounter
--- OUTSIDE RECORDS SUMMARY | 2024-09-19 10:45 | XMS_ITS | Encounter Summary ---
Author Organization [employer] Address [address] [facility] 7t [place] [address] Care Team Providers Care Wood Experimental Mechanic Name Role Phone Amelia Montalvo DO Primary Care Provider [phone] Reason for Visit * Reason Comments Med Refill Encounter Details Date Type Department Care Team ([facility] st Contact Info) Description 09/16/2024 Refill [facility] MEDICINE 230 [place] [address] Amelia Montalvo DO 230 [place] [address] Social History Tobacco Use Types Packs/Day Years [...] is your housing situation today? I have eirka armas 10/27/[address] you [...] Description 10/08/2024 1:00 PM EDT Clinical Support [facility] MEDICINE [address] [place] [address] Mai Bishop RN 10/16/2024 9:45 AM EDT Office Visit [facility] MEDICINE [address] [place] [address] Amelia Montalvo DO 230 [place] [address] 11/06/2024 10:00 AM EDT Office Visit [facility] ADULT DENTAL [address] [place] [address] Cely Guy [address] [place] [address] documented as of this encounter Visit Diagnoses Not on filedocumented in this encounter Additional Health Concerns Assessment Noted Time PHQ-9 Depression Total Score: 18 024 2:12 PM EDT documented as of this encounter Care Teams Wood Experimental Mechanic Relationship Specialty Start Date End Date Amelia Montalvo DO [address] [place] [address] PCP - General Family Medicine 06/23/12 documented as of this encounter
--- OUTSIDE RECORDS SUMMARY | 2024-09-19 10:45 | XMS_ITS | Encounter Summary ---
Author Organization [employer] Address [address] [facility] 7t [place] [address] Care Team Providers Care Trainer Name Role Phone Amelia Montalvo DO Primary Care Provider + [phone] Reason for Visit * Reason Comments Med Refill Encounter Details Date Type Department Care Team (Late st Contact Info) Description 10/25/2023 Refill [facility] 230 [place] [address] Iram Ascencio FNP Social History Tobacco Use [...] 10/08/2024 1:00 PM EDT Clinical Support [facility] MEDICINE 230 [place] [address] Mai Bishop RN 10/16/2024 9:45 AM EDT Office Visit [facility] MEDICINE 230 [place] [address] Amelia Montalvo DO 230 [place] [address] 11/06/2024 10:00 AM EDT Office Visit [facility] ADULT DENTAL 230 [place] [address] Cely Guy 230 [place] [address] documented as of this encounter Visit Diagnoses Not on filedocumented in this encounter Care Teams Trainer Relationship Specialty Start Date End Date Amelia Montalvo DO [address] [place] [address] PCP - General Family Medicine 06/23/12 documented as of this encounter
--- OUTSIDE RECORDS SUMMARY | 2024-09-19 10:45 | XMS_ITS | Encounter Summary ---
Author Organization [email or web address] Address 75 [facility] 7t [place] [address] Care Team Providers Care Manager Corporate Name Role Phone Amelia oMntalvo DO Primary Care Provider + [phone] Reason for Visit * Reason Comments Med Refill Encounter Details Date Type Department Care Team ([facility] st Contact Info) Description 03/14/2024 Refill [facility] MEDICINE 230 [place] [address] Amelia Montalvo DO 230 [place] [address] Other specified anxiety disorders Social History Tobacco [...] Description 10/08/2024 1:00 PM EDT Clinical Support [facility] MEDICINE [address] [place] [address] Mai Bishop, JAMAAL 10/16/2024 9:45 AM EDT Office Visit [facility] MEDICINE [address] [place] [address] Amelia Montalvo DO 230 [place] [address] 11/06/2024 10:00 AM EDT Office Visit [facility] ADULT DENTAL 230 [place] [address] Cely Guy 230 [place] [address] documented as of this encounter Visit Diagnoses Diagnosis Other specified anxiety disorders documented in this encounter Additional Health Concerns Assessment Noted Time PHQ-9 Depression Total Score: 18 024 2:12 PM EDT documented as of this encounter Care Teams Manager Corporate Relationship Specialty Start Date End Date Amelia Montalvo DO [address] [place] [address] PCP - General Family Medicine 06/23/12 documented as of this encounter
--- OUTSIDE RECORDS SUMMARY | 2024-09-19 10:45 | XMS_ITS | Encounter Summary ---
Author Organization [employer] Address 75 [facility] 7t [place] [address] Care Team Providers Care Agriculture Teacher Name Role Phone Amelia Montalvo DO Primary Care Provider + [phone] Reason for Visit * Reason Comments Med Refill Encounter Details Date Type Department Care Team ([facility] st Contact Info) Description 11/15/2023 Refill [facility] MEDICINE 230 [place] [address] Charley Miller MD 230 [place] [address] Social History Tobacco Use Types Packs/Day Years [...] EDT Clinical Support [facility] MEDICINE [address] [place] [address] Mai Bishop, JAMAAL 10/16/2024 9:45 AM EDT Office Visit [facility] MEDICINE [address] [place] [address] Amelia Montalvo DO 230 [place] [address] 11/06/2024 10:00 AM EDT Office Visit [facility] ADULT DENTAL 230 [place] [address] Brooks, Cely [address] [place] [address] documented as of this encounter Visit Diagnoses Not on filedocumented in this encounter Care Teams Agriculture Teacher Relationship Specialty Start Date End Date Amelia Montalvo DO [address] [place] [address] PCP - General Family Medicine 06/23/12 documented as of this encounter
--- OUTSIDE RECORDS SUMMARY | 2024-09-19 10:45 | XMS_ITS | Encounter Summary ---
Author Organization [facility] Address [address] [facility] 7[address] [place] [address] Care Team Providers Care Fiberglass Product Tester Name Role Phone Amelia Montalvo DO Primary Care Provider [phone] Encounter Details Date Type Department Care Team (Latest Contact Info) Description 03/29/2022 Abstract [facility] CONVERSIONS Dental, Provider, DDS Social History Tobacco [...] Description 10/08/2024 1:00 PM EDT Clinical Support [facility] MEDICINE [address] [place] [phone] Mai Bishop RN 10/16/2024 9:45 AM EDT Office Visit [facility] MEDICINE [address] [place] [address] Amelia Montalvo DO 230 [place] [address] 11/06/2024 10:00 AM EDT Office Visit [facility] ADULT DENTAL [address] [place] [address] Cely Guy [address] [place] [address] documented as of this encounter Visit Diagnoses Not on filedocumented in this encounter Care Teams Fiberglass Product Tester Relationship Specialty Start Date End Date Amelia Montalvo DO [address] [place] [address] PCP - General Family Medicine 06/23/12 documented as of this encounter
--- OUTSIDE RECORDS SUMMARY | 2024-09-19 10:45 | XMS_ITS | Encounter Summary ---
Author Organization [employer] Address [address] [facility] 7t [place] [address] Care Team Providers Care Extrusion Technician Name Role Phone Amelia Montalvo DO Primary Care Provider [phone] Encounter Details Date Type Department Care Team (Late st Contact Info) Description 09/13/2022 Orders Only [facility] MED & PEDS [address] [place] [address] Amelia Kemp LPN Social History Tobacco Use [...] Description 10/08/2024 1:00 PM EDT Clinical Support [facility] MEDICINE [address] [place] [address] Mai Bishop, JAMAAL 10/16/2024 9:45 AM EDT Office Visit [facility] MEDICINE [address] [place] [address] Amelia Montalvo DO 230 [place] [address] 11/06/2024 10:00 AM EDT Office Visit [facility] ADULT DENTAL [address] [place] [address] Cely Guy [address] [place] [address] documented as of this encounter Visit Diagnoses Not on filedocumented in this encounter Care Teams Extrusion Technician Relationship Specialty Start Date End Date Amelia Montalvo DO 230 [place] [address] PCP - General Family Medicine 06/23/12 documented as of this encounter
--- OUTSIDE RECORDS SUMMARY | 2024-09-19 10:45 | XMS_ITS | Encounter Summary ---
Author Organization [employer] Address 75 [facility] 7t [place] [address] Care Team Providers Care Energy Derivatives Trader Name Role Phone Amelia Montalvo DO Primary [...] Description 10/08/2024 1:00 PM EDT Clinical Support [facility] MEDICINE [address] [place] [address] Mai Bishop, JAMAAL 10/16/2024 9:45 AM EDT Office Visit [facility] MEDICINE [address] [place] [address] Amelia Montalvo DO 230 [place] [address] 11/06/2024 10:00 AM EDT Office Visit [facility] ADULT DENTAL [address] [place] [address] Brooks, Cely [address] [place] [address] documented as of this encounter Visit Diagnoses Not on filedocumented in this encounter Additional Health Concerns Assessment Noted Time PHQ-9 Depression Total Score: 18 06/2 024 2:12 PM EDT documented as of this encounter Care Teams Energy Derivatives Trader Relationship Specialty Start Date End Date Amelia Montalvo DO 230 [place] [address] PCP - General Family Medicine 06/23/12 documented as of this encounter
--- OUTSIDE RECORDS SUMMARY | 2024-09-19 10:45 | XMS_ITS | Encounter Summary ---
Author Organization [employer] Address [address] [facility] 7t [place] [address] Care Team Providers Care Hand Washer Name Role Phone Amelia Montalvo DO Primary Care Provider + [phone] Reason for Visit * Reason Comments Med Refill Encounter Details Date Type Department Care Team ([facility] st Contact Info) Description 11/07/2023 Refill [facility] MEDICINE [address] [place] [address] Amelia Montalvo DO [address] [place] [address] Other specified anxiety disorders Social History Tobacco [...] Description 10/08/2024 1:00 PM EDT Clinical Support [facility] MEDICINE [address] [place] [address] Mai Bishop, JAMAAL 10/16/2024 9:45 AM EDT Office Visit [facility] MEDICINE [address] [place] [address] Amelia Montalvo DO 230 [place] [address] 11/06/2024 10:00 AM EDT Office Visit [facility] ADULT DENTAL [address] [place] [address] Cely Guy [address] [place] [address] documented as of this encounter Visit Diagnoses Diagnosis Other specified anxiety disorders documented in this encounter Care Teams Hand Washer Relationship Specialty Start Date End Date Amelia Montalvo DO [address] [place] [phone] PCP - General Family Medicine 06/23/12 documented as of this encounter
--- OUTSIDE RECORDS SUMMARY | 2024-09-19 10:45 | XMS_ITS | Encounter Summary ---
Author Organization [employer] Address [address] [facility] 7t [place] [address] Care Team Providers Care Chief Maintenance Supervisor Name Role Phone Amelia Montalvo DO Primary Care Provider [phone] Reason for Visit * Reason Onset Date Comments Med Refill 08/21/2024 Encounter Details Date Type Department Care Team ([facility] st Contact Info) Description 08/21/2024 Refill [facility] MED & PEDS [address] [place] [address] Amelia Montalvo DO [address] [place] [address] Other specified anxiety disorders Social History Tobacco [...] Description 10/08/2024 1:00 PM EDT Clinical Support [facility] MEDICINE [address] [place] [address] Armond Bishop RN 10/16/2024 9:45 AM EDT Office Visit [facility] MEDICINE [address] [place] [address] Amelia Montalvo DO [address] [place] [address] 11/06/2024 10:00 AM EDT Office Visit [facility] ADULT DENTAL [address] [place] [address] Cely Guy [address] [place] [address] documented as of this encounter Visit Diagnoses Diagnosis Other specified anxiety disorders documented in this encounter Additional Health Concerns Assessment Noted Time PHQ-9 Depression Total Score: 18 024 2:12 PM EDT documented as of this encounter Care Teams Chief Maintenance Supervisor Relationship Specialty Start Date End Date Amelia Montalvo DO [address] [place] [address] PCP - General Family Medicine 06/23/12 documented as of this encounter
--- OUTSIDE RECORDS SUMMARY | 2024-09-19 10:45 | XMS_ITS | Encounter Summary ---
Author Organization [facility] Address [address] [facility] 7[address] [place] [address] Care Team Providers Care General Utility Machine Operator Name Role Phone Amelia Montalvo DO Primary Care Provider [phone] Encounter Details Date Type Department Care Team (Latest Contact Info) Description 06/04/2020 Abstract [facility] CONVERSIONS Dental, Provider, DDS Social History [...] Description 10/08/2024 1:00 PM EDT Clinical Support [facility] MEDICINE [address] [place] [phone] Mai Bishop RN 10/16/2024 9:45 AM EDT Office Visit [facility] MEDICINE [address] [place] [address] Amelia Montalvo DO [address] [place] [address] 11/06/2024 10:00 AM EDT Office Visit [facility] ADULT DENTAL [address] [place] [address] Cely Guy [address] [place] [address] documented as of this encounter Visit Diagnoses Not on filedocumented in this encounter Care Teams General Utility Machine Operator Relationship Specialty Start Date End Date Amelia Montalvo DO [address] [place] [address] PCP - General Family Medicine 06/23/12 documented as of this encounter
--- OUTSIDE RECORDS SUMMARY | 2024-09-19 10:45 | XMS_ITS | Encounter Summary ---
Author Organization [facility] Address [address] [facility] 7[address] [place] [address] Care Team Providers Care Gear Lapping Machine Operator Name Role Phone Amelia Montalvo DO Primary Care Provider [phone] Reason for Visit * Reason Onset Date Comments Pre-op clearance notes 08/26/2023 Encounter Details Date Type Department Care Team (Late st Contact Info) Description 08/26/2023 Telephone [facility] MEDICINE [address] [place] [address] Amelia Montalvo DO [address] [place] [address] Pre-op clearance notes Social History Tobacco Use [...] 08/15 and it can be faxed to [phone] documented in this encounter Plan of Treatment Upcoming Encounters Date Type Department Care Team (Late st Contact Info) Description 10/08/2024 1:00 PM EDT Clinical Support [facility] MEDICINE [address] [place] [address] Mai Bishop RN 10/16/2024 9:45 AM EDT Office Visit [facility] MEDICINE [address] [place] [address] Amelia Montalvo DO [address] [place] [address] 11/06/2024 10:00 AM EDT Office Visit [facility] ADULT DENTAL [address] [place] [address] Cely Guy [address] [place] [address] documented as of this encounter Visit Diagnoses Not on filedocumented in this encounter Care Teams Gear Lapping Machine Operator Relationship Specialty Start Date End Date Amelia Montalvo DO [address] [place] [address] PCP - General Family Medicine 06/23/12 documented as of this encounter
--- OUTSIDE RECORDS SUMMARY | 2024-09-19 10:46 | XMS_ITS | Encounter Summary ---
Author Organization [employer] Address [address] [facility] 7t [place] [address] Care Team Providers Care Mica Laminating Machine Feeder Name Role Phone Amelia Montalvo DO Primary Care Provider [phone] Encounter Details Date Type Department Care Team (Late st Contact Info) Description 10/07/2022 Orders Only [facility] MED & PEDS [address] [place], [place] [phone] Amelia Kemp LPN Social History Tobacco Use [...] Description 10/08/2024 1:00 PM EDT Clinical Support [facility] MEDICINE [address] [place] [address] Mai Bishop RN 10/16/2024 9:45 AM EDT Office Visit [facility] MEDICINE [address] [place] [address] Amelia Montalvo DO [address] [place], [place] [phone] 11/06/2024 10:00 AM EDT Office Visit [facility] ADULT DENTAL [address] [place] [address] Cely Guy [address] [place] [address] documented as of this encounter Procedures Procedure Name Priority Date/Time Associated Diagnosis Comments CT HEAD WO CONTRAST Routine 10/22/2022 1 0:52 AM EDT documented in this encounter Results * CT Head w/o Contrast (10/22/2022 10:52 AM EDT) Anatomical Region Laterality Modality Head, Neck Computed Tomogra phy 10/22/2022 10:5 2 AM EDT Narrative 11/02/2022 3:00 PM EDT ? [facility] ?[address] ?[place] [address] ? CT Scan Report ? Signed ? Patient: Maida Mitchell I ?MR#: [id number] ?? 71 ? : 1955 ?Acct:[id number] ? Age/Sex: 67 / F ?ADM Date: 10/22/22 ? Loc: HO.CT ? Attending Dr: Igor Landry MD ? Ordering Physician: IGOR LANDRY MD ?? Date of Service: 10/22/22 ?? Procedure(s): CT head/brain wo IV con ?? Accession Number(s): [id number] ? cc: IGOR LANDRY MD ? EXAMINATION: [...] 1457 ? DD/ 1052 ? TD/TT: ? Java Groovy Developer: SUJ ? Procedure Note Lola, Image - 11/02/[address] [place] [address] [address] Scan Report Signed Patient: Maida Mitchell IMR#: [id number] : 1955cct:[id number] Age/Sex: 67 / FADM Date: 10/22/22 Loc: HO.CT Attending Dr: Igor Landry MD Ordering Physician: IGOR LANDRY MD Date of Service: 10/22/22 Procedure(s): CT head/brain wo IV con Accession Number(s): [id number] cc: IGOR LANDRY MD EXAMINATION: CT HEAD [...] in OV> 11/02/22 1457 DD/ 1052 TD/TT: Java Groovy Developer: REGINA [facility] External Provider IMG CT PROCEDURES Edited Result - Final documented in this encounter Visit Diagnoses Not on filedocumented in this encounter Care Teams Mica Laminating Machine Feeder Relationship Specialty Start Date End Date Amelia Montalvo DO [address] [place] [address] PCP - General Family Medicine 06/23/12 documented as of this encounter
--- OUTSIDE RECORDS SUMMARY | 2024-09-19 10:46 | XMS_ITS | Encounter Summary ---
Author Organization [facility] Address [address] [facility] 7t [place] [address] Care Team Providers Care Abstractor Name Role Phone Amelia Montalvo DO Primary Care Provider [phone] Encounter Details Date Type Department Care Team (Late Contact Info) Description 11/04/[address] [address] Amelia Montalvo DO [address] [place] [address] Social History Tobacco Use Types Packs/Day Years [...] Description 10/08/2024 1:00 PM EDT Clinical Support [address] [address] Mai Bishop RN 10/16/2024 9:45 AM EDT Office Visit [address] [address] Amelia Montalvo DO [address] [place] [address] 11/06/2024 10:00 AM EDT Office Visit [facility] ADULT DENTAL [address] [place], [place] [phone] Cely Guy [address] [place] [address] documented as of this encounter Visit Diagnoses Not on filedocumented in this encounter Care Teams Abstractor Relationship Specialty Start Date End Date Amelia Montalvo DO [address] [place] [address] PCP - General Family Medicine 06/23/12 documented as of this encounter
--- OUTSIDE RECORDS SUMMARY | 2024-09-19 10:46 | XMS_ITS | Encounter Summary ---
Author Organization [employer] Address [address] [facility] 7t [place] [address] Care Team Providers Care Line Erector Name Role Phone Amelia Montalvo DO Primary Care Provider [phone] Reason for Visit * Reason Comments Med Refill Encounter Details Date Type Department Care Team ([facility] st Contact Info) Description 12/09/2023 Refill [facility] MEDICINE [address] [place] [address] Amelia Montalvo DO [address] [place] [address] Social History Tobacco Use Types Packs/Day Years [...] Description 10/08/2024 1:00 PM EDT Clinical Support [facility] MEDICINE [address] [place] [address] Mai Bishop RN 10/16/2024 9:45 AM EDT Office Visit [facility] MEDICINE [address] [place] [address] Amelia Montalvo DO [address] [place] [address] 11/06/2024 10:00 AM EDT Office Visit [facility] ADULT DENTAL [address] [place] [address] Brooks, Cely [address] [place] [address] documented as of this encounter Visit Diagnoses Not on filedocumented in this encounter Care Teams Line Erector Relationship Specialty Start Date End Date Amelia Montalvo DO [address] [place] [address] PCP - General Family Medicine 06/23/12 documented as of this encounter
--- OUTSIDE RECORDS SUMMARY | 2024-09-19 10:46 | XMS_ITS | Encounter Summary ---
Author Organization [employer] [facility] Address [address] [facility] 7t [place] [address] Care Team Providers Care Medical Assistant Internal Medicine Name Role Phone Amelia Montalvo DO Primary Care Provider [phone] Encounter Details Date Type Department Care Team (Late st Contact Info) Description 10/26/2022 Orders Only [facility] MEDICINE [address] [place] [address] Michelle Vides LPN Social History Tobacco Use [...] 1:00 PM EDT Clinical Support [facility] MEDICINE [address] [place] [address] Mai Bishop RN 10/16/2024 9:45 AM EDT Office Visit [address] [address] Amelia Montalvo DO [address] [place] [address] 11/06/2024 10:00 AM EDT Office Visit [facility] ADULT DENTAL [address] [place], [place] [phone] Cely Guy [address] [place] [address] documented as of this encounter Visit Diagnoses Not on filedocumented in this encounter Care Teams Medical Assistant Internal Medicine Relationship Specialty Start Date End Date Amelia Montalvo DO [address] [place] [address] PCP - General Family Medicine 06/23/12 documented as of this encounter
--- OUTSIDE RECORDS SUMMARY | 2024-09-19 10:46 | XMS_ITS | Data Portability ---
Author Organization [facility] [employer] [facility], Main Office Address [address] [facility] [place] [address] Care Team Providers Care Ux Design Lead Name Role Phone WESTLEY AMBROCIO - 2ND FLOOR OTHER DIANELYS IYER Primary Care Provider Assessment Encounter Date Assessment Date Assessment LastModified by Organization Details LastModified Time 01/11/2024 01/11/2024 I have seen and examined the patient independently and confirmed the findings above with the [employer] student note. Management plan discussed with the COOK [employer] student personally. [email or web address] Not available 01/11/2024 13:09:31 Plan of Treatment [...] Recorded Time Chronic obstructi ve pulmonary disease 99570696 Active 2023 Jennifer Zaragoza NP [address] [facility] [address] [facility], [address], [place], [address], [facility] 4 14:58:38 Restless legs 78012703 Active 2023 Jennifer Zaragoza NP [address] [facility] [address] [facility], [address], [place], [address], [facility] 4 14:58:57 Osteoarth ritis 040396267 Active 2023 Jennifer Zaragoza NP [address] [facility], [address], [place], [address], [facility] 4 14:59:07 Gastroeso phageal reflux disease 880063487 Active 2023 Jennifer Zaragoza NP [address], [address], [place], [address], [facility] 4 14:59:12 Abnormal small bowel motility 83937004 Active 2023 Jennifer Zaragoza NP [address], [address], [place], [address], [facility] 4 14:59:26 Allergic rhinitis 22695661 Active 2023 Jennifer Zaragoza NP [address], [address], [place], [address], [facility] 4 14:59:38 Anxiety 29526186 Active 2023 Jennifer Zaragoza NP [address], [address], [place], [place], [address], [facility] 4 14:59:47 Total knee replaceme nt Active 2023 Jennifer Zaragoza NP [address], [address], [place], [place], [address], [facility] 4 15:00:05 Pain of right knee region 923305071533 105 Active 2023 Jennifer Zaragoza NP [address], [place], [place], [address], [facility] 4 15:02:07 Migraine 08863855 Completed 202312/23/2023 Jennifer Zaragoza NP [address], [address], [place], [place], [address], [facility] 4 15:02:20 Vertigo 693281175 Active 2023 Jennifer Zaragoza NP [address], [address], [place], [address], [facility] 4 15:02:40 Asthenia 08765383 Active 2023 Jennifer Zaragoza NP [address], [address], [place], [address], [facility] 4 15:03:52 Headache disorder 208962734 Active 2023 Omkar Clement MD [address], [address], [place], [address], [facility] 4 11:36:49 Primary osteoporo sis 834010905 Active 2023 Omkar Clement MD [address], [address], [place], [address], [facility] 4 11:37:06 Chronic idiopathi c constipat ion 79945327 Active 2023 Omkar Clement MD [address] , [address], [place], [address], [facility] 4 11:37:24 Problem Notes None recorded. Procedures Surgical History Date Name Laterality Status Provider Name and Address Organization Details Recorded Time 2023 total replacement of left knee joint completed Jennifer Zaragoza NP [address], [place], [address], [facility] 4 14:43:53 total replacement of right knee joint completed Jennifer Zaragoza NP [address], [place], [address], [facility] 4 14:43:20 operation on external ear completed Jennifer Zaragoza NP [address] [facility], [address], [place], [address], [facility] 4 14:44:10 colonoscopy completed Jennifer Zaragoza NP [address], [address], [place], [address], [facility] 4 14:44:26 esophagogastroduodenoscopy completed Jennifer Zaragoza NP [address], [address], [place], [address], [facility] 4 14:44:38 Imaging Results None recorded. Procedure Notes None recorded. Medical Equipment None Reported. Allergies Allergen ID Allergen Name Allergen Category Reaction Reaction Severity Criticality Documentation Date Start Date Code Code System Note Provider Name and Address Organization Details Recorded Time 11511 vancomyci n medicatio n other Not available high 12/23/2023 26718 RxNorm redne ss swell ing Not Available Not Available Not Available 29240 tetanus and diphtheri a toxoids Not available anaphylax is severe high 12/23/2023 02404 UNK fever Not Available Not Available Not Available Medications Not known to be on any medication Vitals Date Recorded Body weight Heart rate Respiratory rate Body temperature Oxygen saturation Oxygen saturation in Arterial blood by Pulse oximetry Systolic blood pressure Diastolic blood pressure Provider Name and Address Organization Details Last Updated DateTime 4 18388.4 4 g 75 /min 18 /min 98 [degF] 97 % 97 % 120 mm[Hg] 70 mm[Hg] Jennifer Zaragoza NP [address], [address] [place], [place] [facility] 4 13:15:38 Date Recorded Body weight Heart rate Respiratory rate Body temperature Oxygen saturation Oxygen saturation in Arterial blood by Pulse oximetry Systolic blood pressure Diastolic blood pressure Provider Name and Address Organization Details Last Updated DateTime 4 21469.4 4 g 64 /min 18 /min 97.6 [degF] 97 % 97 % 124 mm[Hg] 68 mm[Hg] Jennifer Zaragoza NP [address], [address] [place], [place] [facility] 4 18:04:40 Date Recorded Body weight Heart rate Respiratory rate Body temperature Oxygen saturation Oxygen saturation in Arterial blood by Pulse oximetry Systolic blood pressure Diastolic blood pressure Provider Name and Address Organization Details Last Updated DateTime 4 86898.4 4 g 62 /min 16 /min 98.4 [degF] 98 % 98 % 124 mm[Hg] 68 mm[Hg] Jennifer Zaragoza NP [address], [address] [place], [place] [facility] 4 09:59:09 Date Recorded Heart rate Respiratory rate Body temperature Oxygen saturation Oxygen saturation in Arterial blood by Pulse oximetry Systolic blood pressure Diastolic blood pressure Provider Name and Address Organization Details Last Updated DateTime 4 78 /min 18 /min 98.5 [degF] 95 % 95 % 118 mm[Hg] 70 mm[Hg] ANA BENJAMIN, KERLINE [address] [facility], [address], [place], [address], [facility] 4 09:45:01 Date Recorded Body weight Heart rate Respiratory rate Body temperature Oxygen saturation Oxygen saturation in Arterial blood by Pulse oximetry Systolic blood pressure Diastolic blood pressure Provider Name and Address Organization Details Last Updated DateTime 4 58953.8 9 g 70 /min 18 /min 98.2 [degF] 99 % 99 % 129 mm[Hg] 74 mm[Hg] MELISSA SIMON [address], [address], [place], [address], [facility] 4 17:48:15 Social History Question Answer Notes LastModified by Organizat ion Details LastModified Time Tobacco Smoking Status Former Smoker Jennifer Zaragoza, KERLINE [address] [facility] [address] [facility], [address], [place], [address], [facility] 12/23/2023 14:48:10 Do You Have An [...] B, unspecified formulation 4 completed Della Jeet [facility], [facility] 12/23/2023 10:39:43 Hep B, unspecified formulation 5 completed Della Jeet [facility], [facility] 12/23/2023 10:39:51 Hep B, unspecified formulation 5 completed Della Jeet [facility], [facility] 12/23/2023 10:39:57 Pneumococcal conjugate PCV [address] [facility] 12/23/2023 10:40:57 pneumococcal polysaccharide PPV23 [address] [facility] 12/23/2023 10:41:39 pneumococcal polysaccharide PPV23 [address] [facility] 12/23/2023 10:41:50 pneumococcal polysaccharide PPV23 [address] [facility] 12/23/2023 10:41:58 influenza, unspecified formulation [address] [facility] 12/23/2023 10:42:16 influenza, unspecified formulation [address] [facility] 12/23/2023 10:42:24 SARS-COV-2 (COVID-19) vaccine, UNSPECIFIED [address] [facility] 12/23/2023 10:42:40 SARS-COV-2 (COVID-19) vaccine, UNSPECIFIED [address] [facility] 12/23/2023 10:42:49 SARS-COV-2 (COVID-19) vaccine, UNSPECIFIED [address] [facility] 12/23/2023 10:42:56 zoster live [address] [facility] 12/23/2023 10:43:30 zoster recombinant 1 completed Delal King estella [facility] 12/23/2023 10:43:50 zoster recombinant 1 completed Della soria [facility] 12/23/2023 10:44:01 Past Encounters Encounter ID Performer Location Encounter Start Date Encounter Closed Date Diagnosis/Indication Diagnosis SNOMED-CT Code Diagnosis ICD10 Code Diagnosis Note [id number] Jennifer Zaragoza NP [address] [address] 12/23/2023 14:27:58 12/27/2023 10:39:41 Pain of right knee region 2807425994 82403 M25.561 sp 12/[address] [...] s/s infection Chronic ob structive pulmonary disease 62276281 J44.9 albuterol 2 puff po q 4 prnalb neb q 4hours prn sobflutica sone/salme terol 250/50 bidmonitor Restless legs 73038973 G 25.81 ropinirole 0.25 mg po qhsmonitor Osteoarthritis 061009792 M19.90 now with 2 knee surgeries to help with painwith 2 calcium citrate vit d 3 2 tab bidvit b12 1000 mcg dailyvit d 3 50 mcg po dialyalend ronate 70 mg q weekmonito r Abnormal s mall bowel motility 84919758 R19.8 bm todaymulti vit with iron qdfiber lax 625 mg po qddocusate 100 mg po bidbisacod yl 5 mg po qhsmonitor Gastroesop hageal reflux disease 798338484 K21.9 omeprazole 20 mg bidmetoclo pramide 10 mg po qidlinzess 290 mcgh cap q amfamotidi ne 40 mg po qhszofran 4 mg po q 8 prnmonitor Anxiety 75129623 F41.9 contmirtaz apine 22.5 mg po qhsclonaze ana 1 mg po bid prnmonitor Vertigo 535981145 R42 meclizine 25 mg po tid prn Allergic rhinitis 317518 04 J30.9 azelastine 137mcg intranasal daily both naresfluti casone 50 mcg 2 spray intranasal dailylorat idine 10 mg po dailyzafir lukast 20 mg po bidmonitor Asthenia 79814867 R53.1 pt ot treat and evalmonito r Migraine 63533406 G43.90 9 sumatripta n 100 mg po q 2-4 hours prn (nte 2 doses in 24 hours) [id number] [facility] [address] 12/26/2023 13:46:11 12/29/2023 09:48:46 Pain of right knee region 7740536944 16622 M25.561 sp 12/[address] [...] s/s infection Chronic ob structive pulmonary disease 89132120 J44.9 contalbute rol 2 puff po q 4 prnalb neb q 4hours prn sobflutica sone/salme terol 250/50 bidmonitor Restless legs 98867513 G 25.81 contcropin irole 0.25 mg po qhsmonitor Osteoarthritis 124214627 M19.90 now with 2 knee surgeries to help with painwith 2 calcium citrate vit d 3 2 tab bidvit b12 1000 mcg dailyvit d 3 50 mcg po dialyalend ronate 70 mg q weekmonito r Vertigo 777953584 R42 meclizine 25 mg po tid prn Allergic rhinitis 153425 04 J30.9 azelastine 137mcg intranasal daily both naresfluti casone 50 mcg 2 spray intranasal dailylorat idine 10 mg po dailyzafir lukast 20 mg po bidmonitor Asthenia 14175092 R53.1 pt ot treat and evalmonito r [id number] Omkar Clement MD [address] [address] 12/27/2023 11:30:56 12/29/2023 10:05:35 Osteoarthritis of left knee joint 4928911200 54615 M17.12 end stage OA left knee now s/p TKRASA 325 mg bid for dvt prophylaxi sfollow ortho recs and update with concernsPT OT Eval and treatmonit or for pain control Chronic ob structive pulmonary disease 15649726 J41.1 advair 250/50 bidmonitor respirator y status and albuterol utilizatio n Restless legs 11537236 G 25.81 ropinirole 0.25 mg po qhsmonitor for effect Vertigo 453743315 R42 carrying dxmeclizin e 25 mg po tid prnmonitor for sx and need for further workup Allergic rhinitis 327563 04 J30.2 appears to be significan t issue for patient at baselineco ntinue out patient medsavoid PO steroid given post op statusmoni tor sx Asthenia 26224923 R53.1 PT OT eval and treatmonit or fall risk Chronic id iopathic constipation 64937129 K59.04 appears with dysmotilit y disorderma intained onlinzess 290 mg qdmonitor for effectGI eval prn Primary osteoporosis 276 472597 M81.0 fosamax 70 mg q weekcontin ued Headache disorder 616250 009 G44.89 baseline migraine hxon imitrex prnadded to H Gastroesop hageal reflux disease 782777060 K21.9 famotidine 40 mg qdmonitor for sx relief Cellulitis of left lower limb 7179668358 3865278 L03.116 concern for infection at incision sitestarte d on keflexorth o updated and reeval not felt to be infectedab x d/c'ed [id number] Jennifer Zaragoza NP [facility] [address] 12/28/2023 13:14:27 01/04/2024 15:54:46 Osteoarthritis of left knee joint 2432255222 84212 M17.12 end stage OA left knee now s/p TKRASA 325 mg bid for dvt prophylaxi s until 02/02follow ortho recsand update with concerns and monitor for infectionP T OT Eval and treatmonit or for pain control Cellulitis of left lower limb 6690285353 7123097 L03.116 concern for infection at incision sitestarte d on keflexorth o updated and reeval not felt to be infectedab x d/c'ed on 12/26ice prnwbc is 11.2 on 12/26 elevated, however site is less warm and decreased swellingmo nitor closely for infection and reeval labs on tuesday Asthenia 26589109 R53.1 PT OT eval and treatmonit or fall risk Restless legs 53028196 G 25.81 ropinirole 0.25 mg po qhsmonitor for effect [id number] Jennifer Zaragoza NP [facility] [address] 01/04/2024 16:01:53 01/10/2024 09:58:03 Osteoarthritis of left knee joint 8729425206 27979 M17.12 end stage OA left knee now s/p TKRASA 325 mg bid for dvt prophylaxi s until 02/02follow ortho recsand update with concerns and monitor for infectionP T OT Eval and treatmonit or for pain control Asthenia 20335344 R53.1 PT OT eval and treatmonit or fall risk Restless legs 19831017 G 25.81 ropinirole 0.25 mg po qhsmonitor for effect Dysuria 48262306 R30.0 pt with report of dysuria and frequencyu rinalysis with c & spyridium 200 mg po tid prn dysuria to start after sample is obtainedpt educated about orange discolorat ion to urinemonit or ua and consider abx if needed [id number] Jennifer Zaragoza NP [facility] [address] 01/06/2024 09:58:30 01/10/2024 11:28:47 Dysuria 38346224 R30.0 UTI ruled outpt with report of dysuria and frequency, states she has not had bowel movement in a few dayssee constipati on01/05 urinalysis with c & s with culture showing no infection dc pyridium 200 mg po tid prnmonitor ua and consider abx if needed Osteoarthr itis of left knee joint 0350382277 60946 M17.12 end stage OA left knee now s/p TKRpt reports ortho visit yesterday and removed suturesste ri strips in place today.nsg to obtain consult info from orthoASA 325 mg bid for dvt prophylaxi s until 02/02fo ortho recsand update with concerns and monitor for infectionP T OT Eval and treatmonit or for pain control Asthenia 39823958 R53.1 PT OT eval and treatmonit or fall risk Abnormal s mall bowel motility 84164854 R19.8 no bm in a few daysmultiv it with iron qdfiber lax 625 mg po qddocusate 100 mg po bidbisacod yl 5 mg po qhs01/05inc rease senna to 2 tabs per daygive mom 30cc todaymonit or [id number] ANA BENJAMIN NP [facility] [address] 01/11/2024 09:00:48 01/19/2024 12:49:58 Abnormal small bowel motility 53838911 R19.8 no bm in a few days [...] qd Add miralax dailyMonit or bowels Dysuria 28845929 R30.0 UTI ruled outpt had reported dysuria and frequency on 01/05 - no complaints today, seems resolved urinalysis with c & s with culture neg01/05 dc pyridium 200 mg po tid prnmonitor sx. Osteoarthr itis of left knee joint 9287023219 73388 M17.12 end stage OA left knee now [...] home Sat. 7/6monitor for pain control Asthenia 40990292 R53.1 PT OT eval and treatSee above, meeting rehab goals, goal home 7/6monitor fall risk [id number] MELISSA SIMON [address] [place] [address] 01/13/2024 11:41:32 01/19/2024 13:26:02 Osteoarthritis of left knee joint 5886208626 28174 M17.12 end stage OA left knee now s/p TKRASA 325 mg bid for dvt prophylaxi sfollow up with ortho outpatient Restless legs 30916341 G 25.81 ropinirole 0.25 mg po qhs Chronic ob structive pulmonary disease 38666291 J41.1 advair 250/50 bid Vertigo 704982310 R42 carrying dxmeclizin e 25 mg po tid prnmonitor for sx and need for further workupfoll ow up outpatient Allergic rhinitis 163375 04 J30.2 appears to be significan t issue for patient at baselineco ntinue out patient medsavoid PO steroid given post op statusmoni tor sx Chronic id iopathic constipation 55683751 K59.04 appears with dysmotilit y disorderma intained onlinzess 290 mg qdmonitor for effectGI eval prn Primary osteoporosis 276 457663 M81.0 fosamax 70 mg q weekcontin ued Headache disorder 524120 009 G44.89 baseline migraine hxon imitrex prnadded to H Gastroesop hageal reflux disease 162296738 K21.9 famotidine 40 mg qdmonitor for sx relief Abnormal s mall bowel motility 77685603 R19.8 Continue:l inzess 290 mg qd for IBSfiber lax 625 mg po qd docusate 100 mg po bid bisacodyl 10 mg po qhs senna 2 tabs qd miralax 17 gn daily Anxiety 66988171 F41.9 contmirtaz apine 22.5 mg po qhsclonaze ana 1 mg po bid prnmonitor Osteoarthritis 607438848 M19.90 now with 2 knee surgeries to [...] Kimble Member ID Guarantor Name 12/28/2023 1 [facility] - DOS ON OR AFTER 2022 - MEDICARE ADVANTAGE [place] REPLACEMENT/ADV ANTAGE - PPO) Maida Mitchell [id number] Maida Mitchell 01/04/2024 1 [facility] - DOS ON OR AFTER 2022 - [place]V ANTAGE - PPO) Maida Mitchell [id number] Maida Mitchell 01/06/2024 1 [facility] - DOS ON OR AFTER 2022 - [place]V ANTAGE - PPO) Maida Mitchell [id number] Maida Mitchell 01/11/2024 1 [facility] - DOS ON OR AFTER 2022 - [place]/ADV ANTAGE - PPO) Maida Mitchell [id number] Maida Mitchell 01/13/2024 1 [facility] - DOS ON OR AFTER 2022 - [place]/ADV ANTAGE - PPO) Maida Mitchell [id number] Maida Mitchell Notes Date Note Type Note [...] bid for DVT [facility]. [facility] felt [facility] [...] or complaints today. Jennifer Zaragoza, KERLINE [address] [facility] [address] [facility], [address], [place], [address], [facility] [employer] [facility] 12/28/2023 13:29:09 01/04/2024 text/html Pt is seen for a n acute rounding visit. She is a 68 yo female admit from hospital after presenting with end stage OA left knee for TKR having failed conservative treatment without complications in hospital on ASA 325 mg bid for DVT prophylaxis. [facility] continued care felt to [...] No cva tenderness. Jennifer Zaragoza NP [address] [facility] [address] [facility], [address], [place], [address], [facility] [employer] [facility] 01/04/2024 18:17:27 01/06/2024 text/html Pt is seen [...] and well approximated. Jennifer Zaragoza NP [address] [facility] [address] [facility], [address], [place], [address], [facility] [employer] [facility] 01/06/2024 10:22:58 01/11/2024 text/html Pt is seen [...] does have asthma/COPD). ANA BENJAMIN, KERLINE [address] [facility] [address] [facility], [address], [place], [address], [facility] 01/11/2024 13:15:56 01/13/2024 text/html Maida is a 68 yr old female seen today for discharge on 01/14/24. Admitted to [facility] from hospital after presenting with end stage [...] she will be receiving support services with [facility]. she can be discharge to home with medications, PT/OT and vna services. PMH is significant for OA,anxiety,RLS,gerd ,copd,chronic constipation,vertig o migraine LARA, osteoporosis MELISSA SIMON [address] [facility] [address] [facility], [address], [place], [address], [facility] 01/13/2024 17:48:53 OBGyn Episode No OBEpisode recorded.
== END 2024-09-19 11:21 | disposition home or self-care (01) ==
LOC: HO.HWS 09:42
PROVIDERS: PCP Nurse Practitioner Family; Visit Provider Advanced Practice Midwife
DX: N89.8 Other specified noninflammatory disorders of vagina (principal)
CPT/HCPCS: 99213

== ENCOUNTER 2024-09-21 13:44 | Outpatient (REF) | payer OTHER, SELFPAY ==
--- NOTE | 2024-09-21 | PFT_ITS ---
Flows: FEV1: 90 % of predicted at 2.23 L FVC: 98 % of predicted at 3.16 L FEV1/FVC: 71 % Bronchodilator response: Absent Volumes: Total lung capacity: 88 % of predicted at 5.00 L Residual volume: 77 % of predicted at 1.76 L Slow vital capacity: 97 % of predicted at 3.25 L Expiratory reserve volume: 75 % of predicted at 0.63 L Diffusion capacity: Normal Impression: No obstructive or restrictive ventilatory defect. No bronchodilator response. Normal pulmonary function test. MTDD
[2024-09-21 14:37] VITALS: PULSE 81
--- OUTSIDE RECORDS SUMMARY | 2024-09-21 15:27 | XMS_ITS | Data Portability ---
Author Organization [employer] Address [address] [place] [address] Care Team Providers Care Metal Riveting Machine Operator Name Role Phone HIM [facility] Primary Care Provider [phone] Assessment Encounter Date Assessment Date Assessment LastModified by Organization Details LastModified Time 07/28/2023 07/28/2023 I provided real -time medical direction via phone for this encounter, and was available for additional phone based assistance as needed. I have reviewed and agree with the Assessment and Plan as documented by the Bonding Machine Tender. We discussed the diagnostic uncertainty of home [...] verbalized understanding of instructions to the medic [email or web address] Not available 07/29/2023 00:10:23 04/11/2024 04/11/2024 As noted, we wer e called to see this patient regarding concerns of chest tightness and increased wob. Evaluation in the field was performed by my orderlies teacher colleague, as noted above, I provided real-time [...] worsening serious symptoms, particularlyworsening shortness of breath [email or web address] Not available 04/11/2024 18:52:12 Plan of Treatment Reminders Order Date Submit Date Provider Last Modified By Organization Details Last Modified Time Details Appointments None recorded. Lab influenza virus A + B and SARS CoV 2 (COVID-19) and RSV RNA panel, AKASH+probe, respiratory specimen 2023 024 HILDRETH [facility] (Centralized Electronic Ordering - All Locations), Patient Can Go To The Location Of Their Choice, [id number] 04:09:28 rapid SARS CoV 2 Ag, QL IA, respiratory specimen 2023 024 [email or web address] 0 [facility], [address] [place] [address], [id number], 12:36:39 rapid flu (A+B) 2023 024 [email or web address] 0 [facility], [address] [place] [address], [id number], 12:36:41 Referral None recorded. Procedures None recorded. Surgeries None recorded. Imaging None recorded. Medication Orders prednisone 20 mg tablet 2023 [email or web address] [facility], [address] [place] [address], [id number], 16:11:44 prednisone 20 mg tablet 2023 [facility], [address] [place] [address], [id number], 4 12:49:19 albuterol sulfate 2.5 mg/3 mL (0.083 %) solution for nebulizatio n 2023 [facility], [address] [place], [place], [id number], 4 12:49:19 Zithromax Z-Thomas 250 mg tablet 2023 024 [facility], [address] [place], [place], [id number], 4 12:26:06 Mucinex DM 30 mg-600 mg tablet,exte nded release 12 hr 2023 024 [facility], [address] [place], [place], [id number], 4 11:00:00 Patient TargetsNo targets recorded. Patient InstructionsNo instructions recorded. Reason for Referral None Reported. Results Created Date Observation Date Name Description Value Unit Range Abnormal Flag Note LastModifiedBy Organization Detail LastModifiedTime 07/28/1907/28/2023 COVID -19, RSV, FLU A/B PCR covid-19 PCR specimen source NASAL Not Available [facility] (Centralized Electronic Ordering - All Locations) Patient Can Go To The Location Of Their Choice, [id number] 07/29/2023 04:09:28 07/28/1907/29/2023 COVID -19, RSV, FLU [...] Go To The Location Of Their Choice, [id number] 07/29/2023 04:09:28 07/28/1907/29/2023 COVID -19, RSV, FLU [...] Go To The Location Of Their Choice, [facility] 07/29/2023 04:09:28 07/28/19 24 07/29/2023 COVID -19, [...] Go To The Location Of Their Choice, [facility] 07/29/2023 04:09:28 07/28/1907/29/2023 COVID -19, RSV, FLU [...] ng. Resul t repor pilar to the [facility]. All test resul ts must [...] Go To The Location Of Their Choice, [facility] 07/29/2023 04:09:28 07/28/19 24 07/28/2023 rapid flu (A+B) Flu negati ve Not Available [facility] ed [address] [place] [address], [phone], 07/28/2023 12:36:12 07/28/19 24 07/28/2023 rapid SARS CoV 2 Ag, QL IA, respi rator y speci men rapid SARS CoV 2 Ag, QL IA, respiratory specimen negati ve Not Available [facility] ed [address] [place] [address], [phone], 07/28/2023 12:36:04 Result Notes None recorded. Medical Equipment None Reported. Allergies Allergen ID Allergen Name Allergen Category Reaction Reaction Severity Criticality Documentation Date Start Date Code Code System Note Provider Name and Address Organization Details Recorded Time 4376 vancomyci n medicatio n Not available Not available Not available 07/28/2023 67755 RxNorm Not Available [facility] - production 4 03:35:06 4377 Vaccine product containin g only Clostridi um tetani antigen (medicina l product) medicatio n Not available Not available Not available 07/28/2023 [id number] 2002 SNOMED Janette Nice MD [address] [place] [address],[address], [place], [phone], [place] [employer] 4 12:27:09 Medications Name Sig Start Date Stop Date Status Note LastModified by Organization Details LastModified Time medbox status USE DIRECTED active Not Available Not Available No t Available pulse oximet airial [id number] USE FOR SHORTNESS OF BREATH OR FOR [...] Address Organization Details Last Updated DateTime 4 42084.2 64 g 97 % 97 % 172.72 cm 97.7 [degF] 17 /min 97 /min 120 mm[Hg] 90 mm[Hg] Not Available [employer] 4 12:21:43 Date Recorded Body temperature Heart rate Oxygen saturation Oxygen saturation in Arterial blood by Pulse oximetry Systolic blood pressure Diastolic blood pressure Provider Name and Address Organization Details Last Updated DateTime 4 98.1 [degF] 77 /min 98 % 98 % 138 mm[Hg] 94 mm[Hg] Not Available [employer] 16:07:34 Social History None recorded. Functional Status None recorded. Mental Status None recorded. Family History Nothing Reported. Medical History No medical history recorded. Gynecological HistoryNo gynecological history recorded. Obstetrics History GPAL:G 0 P 0 0 0 0 Past Encounters Encounter ID Performer Location Encounter Start Date Encounter Closed Date Diagnosis/Indication Diagnosis SNOMED-CT Code Diagnosis ICD10 Code Diagnosis Note [id number] Janette Nice MD Main - [facility] [phone] 07/28/2023 12:22:19 07/31/2023 13:34:03 Upper respiratory infection 76709588 J06.9 Likely viral. Advised we will call [...] afebrile without color nasal discharge or sputum [id number] Fortino Guzman MD [facility] [address] [place] [phone] 08/08/2023 16:47:19 08/09/2023 11:01:47 Viral upper respiratory tract infection 105625506 J06.9 Acute bronchitis 7920625 2 J20.9 This 77-year-ol d male has had congestion and a cough for almost a month. Mucinex DM hasn't been effective. I ordered a Z-Thomas. He will follow-up with his PCP for any persistent symptoms. The patient agreed with this plan. [id number] Lissy San MD Main - [address] [address] 01/24/2024 12:21:41 01/24/2024 18:25:34 Cough 22707501 R05.9 68 year old female with a [...] assessment and plan as documented by the orderlies teacher. I provided real-time medical direction for this encounter and was immediatel y available to provide additional phone-base d assistance as needed. We discussed the diagnostic uncertaint y of home visits and associated risks. We discussed the need to seek care urgently/e mergently in the setting of any new or worsening symptoms. [id number] Jeet Stovall MD Main - [address] [phone] 04/11/2024 16:07:31 04/11/2024 23:08:50 Acute exacerbation of chronic obstructive pulmonary disease 353402809 J44.1 Health Concerns Section Related Observation LastModified by Organization Detai ls LastModified Time None Recorded Concern Status LastModified by Organization Details LastModified Time None Recorded Advance Directives Directive None Recorded Payers Encounter Date Sequence Insurance Name Policy Number Policy Kimble Covered Member ID Kimble Member ID Guarantor Name 07/28/2023 1 [facility] - DOS ON OR AFTER 2022 - DUAL ELIGIBLE - HALFWAY OPTIONS AND ONE CARE (MEDICARE REPLACEMENT/ADV ANTAGE - HMO) Maida Mitchell [id number] Maida Mitchell 08/08/2023 1 [facility] - DOS ON OR AFTER 2022 - DUAL ELIGIBLE - HALFWAY OPTIONS AND ONE CARE (MEDICARE REPLACEMENT/ADV ANTAGE - HMO) Maida Mitchell [id number] Maida Mitchell 01/24/2024 1 [facility] - DOS ON OR AFTER 2022 - DUAL ELIGIBLE - HALFWAY OPTIONS AND ONE CARE (MEDICARE REPLACEMENT/ADV ANTAGE - HMO) Maida Mitchell [id number] Maida Mitchell 04/11/2024 1 [facility] - DOS ON OR AFTER 2022 - DUAL ELIGIBLE - HALFWAY OPTIONS AND ONE CARE (MEDICARE REPLACEMENT/ADV ANTAGE - HMO) Maida Mitchell [id number] Maida Mitchell Notes Date Note Type Note [...] Weakness/Lethargy, Headache, Asthma, COPDPMH: COPD/AsthmaAllergie s: VancomycinComments: Quality Director verified the member's name//address and phone [...] ................... ................... ................... ................... ................... ................... ........ Bonding Machine Tender Note From Humza Rabago: Encountered patient conscious, [...] Extremities is free of trauma and edema. [facility] contacted: orders for PCR and orthostatic vital science performed results reported to [facility]. PCR swab to be taken to [facility] laboratory. [facility] to write prescription for medication regimen at patient? s pharmacy of choice. Red flags discussed with patient, patient urged to seek further medical attention. Should she develop priority symptoms, such as chest pain, syncope, fevers, acute shortness of breath or changes in vision. Patient expresses understanding and would like to remain home at this time. Bonding Machine Tender Allergies: Vancomycin ................... ................... ................... ................... ................... 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 Per BALL WORKER , [facility] went out on 07/28. Member was found to be Negative per PCR and mucinex sent . Per member is taking medication. Member is not on home 02, but has neb . Member dry cough, no wheezing when breathing Fortino Guzman MD [address], [place], [address], [employer] 08/08/2023 17:01:14 01/24/2024 text/html HPI: Member had [...] No further information needed to process visit. Bonding Machine Tender POC Test Results from Yared Saenz - ALS Rapid COVID antigen (12:49:53) COVID: - ................... ................... ................... ................... ................... ................... ................... ........ Bonding Machine Tender Note From Yared Saenz: [facility] dispatched for a 68 YO F complaining [...] prescribed. PT still drinking plenty of fluids. [facility] performs rapid PCR covid test which is negative. PT denies takin any OTC medication for the pain. [facility] contacts PT [facility] who recommends fluids and rest at home. Believes this to be a viral common cold and to let it run its course. [facility] also recommends to follow up with GI doctor about any recent changes with her eating changes or pain levels. [facility] explains to pt that if she experiences any sudden onset SOB, chest pain or sudden N/v that she should contact [facility] for a higher level of care. ................... ................... ................... ................... ................... ................... ................... ........ Disposition: Fulfilled Lissy San MD [address], [place], [address], [employer] 01/24/2024 13:37:22 04/11/2024 text/html CRC Nurse Triage Notes (Demetra Romero): Reason For Request: PT reporting chest tightness + and some shortness of breath Chief Complaints: Shortness of Breath/Dyspnea PMH: COPD/Asthma Allergies: Vancomycin Comments: Quality Director verified the member's name//address and phone [...] ................... ................... ................... ................... ................... ................... ........ Bonding Machine Tender Note From Ayo Tomlin: Dispatched for evaluation of a 68 y/o female, Slovak speaking only, complaining and requesting an evaluation of shortness of breath and tightness in chest. Upon arrival to pt apartment, pt ambulatory waiting for providers at door. Pt sat on couch and assessment performed, vital signs obtained. Language line utilized due to pt speaking Slovak only, with pt and providers able to communicate in short sentences in Turkish. Assessment found CAOX4, airway open and patent, [...] confirmed pt allergies and pharmacy and contacted [facility]. [facility] ordered Duoneb treatment and to call back after treatment completed with further assessment. Duoneb administered with pt stating improvement in symptoms upon completion, lung sounds clear in all [place], pt work of breathing noted to be improved, pt breathing slower and with less effort. [facility] contacted with update, [facility] ordering second duoneb and 40mg prednisone, with [facility] sending prednisone prescription to pt pharmacy. Providers administered 40mg prednisone and began duoneb treatment. Red flags discussed. Providers then left the residence. All times approximate. ................... ................... ................... ................... ................... ................... ................... ........ Disposition: Pankaj Stovall MD [address], [place], [address], [employer] 04/11/2024 18:52:26 OBGyn Episode No OBEpisode recorded.
--- OUTSIDE RECORDS SUMMARY | 2024-09-21 15:27 | XMS_ITS | Data Portability ---
Author Organization [facility], Main Office Address [address], [address] [place] [address] Care Team Providers Care Raw Products Director Name Role Phone WESTLEY AMBROCIO - 2ND FLOOR OTHER DIANELYS IYER Primary Care Provider [phone] Assessment Encounter Date Assessment Date Assessment LastModified by Organization Details LastModified Time 01/11/2024 01/11/2024 I have seen and examined the patient independently and confirmed the findings above with the [employer]PERVISOR [employer] student note. Management plan discussed with the SUPERVISOR [employer] student personally. Not available 01/11/2024 13:09:31 Plan [...] Recorded Time Chronic obstructi ve pulmonary disease 61867901 Active 2023 Jennifer Zaragoza NP [address] [facility], [address], [place], [address], [facility] [employer] 4 14:58:38 Restless legs 82458966 Active 2023 Jennifer Zaragoza NP [address] [facility], [address], [place], [address], [facility] [employer] 4 14:58:57 Osteoarth ritis 160862652 Active 2023 Jennifer Zaragoza NP [address] [facility], [address], [place], [address], [facility] [employer] 4 14:59:07 Gastroeso phageal reflux disease 729264571 Active 2023 Jennifer Zaragoza NP [address], [address], [place], [address], [facility] 4 14:59:12 Abnormal small bowel motility 83659463 Active 2023 Jennifer Zaragoza NP [address], [address], [place], [address], [facility] 4 14:59:26 Allergic rhinitis 04478428 Active 2023 Jennifer Zaragoza NP [address], [address], [place], [address], [facility] 4 14:59:38 Anxiety 19844519 Active 2023 Jennifer Zaragoza NP [address], [address], [place], [place], [address], [facility] 4 14:59:47 Total knee replaceme nt Active 2023 Jennifer Zaragoza NP [address], [address], [place], [place], [address], [facility] 4 15:00:05 Pain of right knee region 049019525092 105 Active 2023 Jennifer Zaragoza NP [address], [place], [place], [address], [facility] 4 15:02:07 Migraine 03134917 Completed 202312/23/2023 Jennifer Zaragoza NP [address], [address], [place], [place], [address], [facility] 4 15:02:20 Vertigo 083532359 Active 2023 Jennifer Zaragoza NP [address], [address], [place], [address], [facility] 4 15:02:40 Asthenia 17075417 Active 2023 Jennifer Zaragoza NP [address], [address], [place], [address], [facility] 4 15:03:52 Headache disorder 786554441 Active 2023 Omkar Clement MD [address], [address], [place], [address], [facility] 4 11:36:49 Primary osteoporo sis 579663024 Active 2023 Omkar Clement MD [address], [address], [place], [address], [facility] 4 11:37:06 Chronic idiopathi c constipat ion 87597949 Active 2023 Omkar Clement MD [address], [place], [address], [facility] 4 11:37:24 Problem Notes None recorded. Procedures Surgical History Date Name Laterality Status Provider Name and Address Organization Details Recorded Time 2023 total replacement of left knee joint completed Jennifer Zaragoza NP [address], [place], [address], [facility] 4 14:43:53 total replacement of right knee joint completed Jennifer Zaragoza NP [address], [place], [address], [facility] 4 14:43:20 operation on external ear completed Jennifer Zaragoza NP [address] [facility], [address], [place], [address], [facility] 4 14:44:10 colonoscopy completed Jennifer Zaragoza NP [address], [address], [place], [address], [facility] 4 14:44:26 esophagogastroduodenoscopy completed Jennifer Zaragoza NP [address], [address], [place], [address], [facility] 4 14:44:38 Imaging Results None recorded. Procedure Notes None recorded. Medical Equipment None Reported. Allergies Allergen ID Allergen Name Allergen Category Reaction Reaction Severity Criticality Documentation Date Start Date Code Code System Note Provider Name and Address Organization Details Recorded Time 00591 vancomyci n medicatio n other Not available high 12/23/2023 69880 RxNorm redne ss swell ing Not Available Not Available Not Available 26281 tetanus and diphtheri a toxoids Not available anaphylax is severe high 12/23/2023 41164 UNK fever Not Available Not Available Not Available Medications Not known to be on any medication Vitals Date Recorded Body weight Heart rate Respiratory rate Body temperature Oxygen saturation Oxygen saturation in Arterial blood by Pulse oximetry Systolic blood pressure Diastolic blood pressure Provider Name and Address Organization Details Last Updated DateTime 4 11310.4 4 g 75 /min 18 /min 98 [degF] 97 % 97 % 120 mm[Hg] 70 mm[Hg] Jennifer Zaragoza NP [address], [address] [place], [place] [facility] 4 13:15:38 Date Recorded Body weight Heart rate Respiratory rate Body temperature Oxygen saturation Oxygen saturation in Arterial blood by Pulse oximetry Systolic blood pressure Diastolic blood pressure Provider Name and Address Organization Details Last Updated DateTime 4 26465.4 4 g 64 /min 18 /min 97.6 [degF] 97 % 97 % 124 mm[Hg] 68 mm[Hg] Jennifer Zaragoza NP [address], [address] [place], [place] [facility] 4 18:04:40 Date Recorded Body weight Heart rate Respiratory rate Body temperature Oxygen saturation Oxygen saturation in Arterial blood by Pulse oximetry Systolic blood pressure Diastolic blood pressure Provider Name and Address Organization Details Last Updated DateTime 4 68752.4 4 g 62 /min 16 /min 98.4 [degF] 98 % 98 % 124 mm[Hg] 68 mm[Hg] Jennifer Zaragoza NP [address], [address] [place] [facility] 4 09:59:09 Date Recorded Heart rate Respiratory rate Body temperature Oxygen saturation Oxygen saturation in Arterial blood by Pulse oximetry Systolic blood pressure Diastolic blood pressure Provider Name and Address Organization Details Last Updated DateTime 4 78 /min 18 /min 98.5 [degF] 95 % 95 % 118 mm[Hg] 70 mm[Hg] ANA BENJAMIN, KERLINE [address] [facility], [address], [place], [address], [facility] 4 09:45:01 Date Recorded Body weight Heart rate Respiratory rate Body temperature Oxygen saturation Oxygen saturation in Arterial blood by Pulse oximetry Systolic blood pressure Diastolic blood pressure Provider Name and Address Organization Details Last Updated DateTime 4 22208.8 9 g 70 /min 18 /min 98.2 [degF] 99 % 99 % 129 mm[Hg] 74 mm[Hg] MELISSA SIMON [address], [address], [place], [address], [facility] 4 17:48:15 Social History Question Answer Notes LastModified by Organizat ion Details LastModified Time Tobacco Smoking Status Former Smoker Jennifer Zaragoza, KERLINE [address] [facility], [address], [place], [address], [facility] 12/23/2023 14:48:10 Do You Have An [...] B, unspecified formulation 4 completed Della Jeet [facility], [facility] 12/23/2023 10:39:43 Hep B, unspecified formulation 5 completed Della Jeet [facility], [facility] 12/23/2023 10:39:51 Hep B, unspecified formulation 5 completed Della Jeet [facility], [facility] 12/23/2023 10:39:57 Pneumococcal conjugate PCV 13 9 completed Della Jeet [facility] 12/23/2023 10:40:57 pneumococcal polysaccharide PPV23 5 completed Della Jeet [facility] 12/23/2023 10:41:39 pneumococcal polysaccharide PPV23 2 completed Della Jeet [facility] 12/23/2023 10:41:50 pneumococcal polysaccharide PPV23 1 completed Della Jeet [facility] 12/23/2023 10:41:58 influenza, unspecified formulation 2 completed Della Jeet [facility] 12/23/2023 10:42:16 influenza, unspecified formulation 3 completed Della Jeet [facility] 12/23/2023 10:42:24 SARS-COV-2 (COVID-19) vaccine, UNSPECIFIED 1 completed Della Jeet [facility] 12/23/2023 10:42:40 SARS-COV-2 (COVID-19) vaccine, UNSPECIFIED 1 completed Della Jeet [facility] 12/23/2023 10:42:49 SARS-COV-2 (COVID-19) vaccine, UNSPECIFIED 4 completed Della Jeet [facility] 12/23/2023 10:42:56 zoster live 4 completed Della Jeet [facility] 12/23/2023 10:43:30 zoster recombinant 1 completed Della King estella [facility] 12/23/2023 10:43:50 zoster recombinant 1 completed Della soria [facility] 12/23/2023 10:44:01 Past Encounters Encounter ID Performer Location Encounter Start Date Encounter Closed Date Diagnosis/Indication Diagnosis SNOMED-CT Code Diagnosis ICD10 Code Diagnosis Note [id number] Jennifer Zaragoza NP [address] [address] 12/23/2023 14:27:58 12/27/2023 10:39:41 Pain of right knee region 4325032369 76101 M25.561 sp 12/[address] [...] s/s infection Chronic ob structive pulmonary disease 27601850 J44.9 albuterol 2 puff po q 4 prnalb neb q 4hours prn sobflutica sone/salme terol 250/50 bidmonitor Restless legs 84910143 G 25.81 ropinirole 0.25 mg po qhsmonitor Osteoarthritis 183073193 M19.90 now with 2 knee surgeries to help with painwith 2 calcium citrate vit d 3 2 tab bidvit b12 1000 mcg dailyvit d 3 50 mcg po dialyalend ronate 70 mg q weekmonito r Abnormal s mall bowel motility 37529987 R19.8 bm todaymulti vit with iron qdfiber lax 625 mg po qddocusate 100 mg po bidbisacod yl 5 mg po qhsmonitor Gastroesop hageal reflux disease 036023274 K21.9 omeprazole 20 mg bidmetoclo pramide 10 mg po qidlinzess 290 mcgh cap q amfamotidi ne 40 mg po qhszofran 4 mg po q 8 prnmonitor Anxiety 97142439 F41.9 contmirtaz apine 22.5 mg po qhsclonaze ana 1 mg po bid prnmonitor Vertigo 961350235 R42 meclizine 25 mg po tid prn Allergic rhinitis 783729 04 J30.9 azelastine 137mcg intranasal daily both naresfluti casone 50 mcg 2 spray intranasal dailylorat idine 10 mg po dailyzafir lukast 20 mg po bidmonitor Asthenia 98236836 R53.1 pt ot treat and evalmonito r Migraine 42966375 G43.90 9 sumatripta n 100 mg po q 2-4 hours prn (nte 2 doses in 24 hours) [id number] [facility] [address] 12/26/2023 13:46:11 12/29/2023 09:48:46 Pain of right knee region 6717945799 11825 M25.561 sp 12/[address] [...] s/s infection Chronic ob structive pulmonary disease 06481098 J44.9 contalbute rol 2 puff po q 4 prnalb neb q 4hours prn sobflutica sone/salme terol 250/50 bidmonitor Restless legs 09983383 G 25.81 contcropin irole 0.25 mg po qhsmonitor Osteoarthritis 109628195 M19.90 now with 2 knee surgeries to help with painwith 2 calcium citrate vit d 3 2 tab bidvit b12 1000 mcg dailyvit d 3 50 mcg po dialyalend ronate 70 mg q weekmonito r Vertigo 717892831 R42 meclizine 25 mg po tid prn Allergic rhinitis 241732 04 J30.9 azelastine 137mcg intranasal daily both naresfluti casone 50 mcg 2 spray intranasal dailylorat idine 10 mg po dailyzafir lukast 20 mg po bidmonitor Asthenia 45061682 R53.1 pt ot treat and evalmonito r [id number] Omkar Clement MD [address] [address] 12/27/2023 11:30:56 12/29/2023 10:05:35 Osteoarthritis of left knee joint 1293274823 98961 M17.12 end stage OA left knee now s/p TKRASA 325 mg bid for dvt prophylaxi sfollow ortho recs and update with concernsPT OT Eval and treatmonit or for pain control Chronic ob structive pulmonary disease 98730152 J41.1 advair 250/50 bidmonitor respirator y status and albuterol utilizatio n Restless legs 37708712 G 25.81 ropinirole 0.25 mg po qhsmonitor for effect Vertigo 094453539 R42 carrying dxmeclizin e 25 mg po tid prnmonitor for sx and need for further workup Allergic rhinitis 867519 04 J30.2 appears to be significan t issue for patient at baselineco ntinue out patient medsavoid PO steroid given post op statusmoni tor sx Asthenia 87651764 R53.1 PT OT eval and treatmonit or fall risk Chronic id iopathic constipation 62467238 K59.04 appears with dysmotilit y disorderma intained onlinzess 290 mg qdmonitor for effectGI eval prn Primary osteoporosis 276 582327 M81.0 fosamax 70 mg q weekcontin ued Headache disorder 293312 009 G44.89 baseline migraine hxon imitrex prnadded to H Gastroesop hageal reflux disease 634686459 K21.9 famotidine 40 mg qdmonitor for sx relief Cellulitis of left lower limb 4321543799 7225728 L03.116 concern for infection at incision sitestarte d on keflexorth o updated and reeval not felt to be infectedab x d/c'ed [id number] Jennifer Zaragoza NP [facility] [address] 12/28/2023 13:14:27 01/04/2024 15:54:46 Osteoarthritis of left knee joint 8751790664 87437 M17.12 end stage OA left knee now s/p TKRASA 325 mg bid for dvt prophylaxi s until 02/02follow ortho recsand update with concerns and monitor for infectionP T OT Eval and treatmonit or for pain control Cellulitis of left lower limb 2469399105 5900227 L03.116 concern for infection at incision sitestarte d on keflexorth o updated and reeval not felt to be infectedab x d/c'ed on 12/26ice prnwbc is 11.2 on 12/26 elevated, however site is less warm and decreased swellingmo nitor closely for infection and reeval labs on tuesday Asthenia 25038283 R53.1 PT OT eval and treatmonit or fall risk Restless legs 46102937 G 25.81 ropinirole 0.25 mg po qhsmonitor for effect [id number] Jennifer Zaragoza NP [facility] [address] 01/04/2024 16:01:53 01/10/2024 09:58:03 Osteoarthritis of left knee joint 1657885911 04767 M17.12 end stage OA left knee now s/p TKRASA 325 mg bid for dvt prophylaxi s until 02/02follow ortho recsand update with concerns and monitor for infectionP T OT Eval and treatmonit or for pain control Asthenia 87544890 R53.1 PT OT eval and treatmonit or fall risk Restless legs 06358811 G 25.81 ropinirole 0.25 mg po qhsmonitor for effect Dysuria 77503395 R30.0 pt with report of dysuria and frequencyu rinalysis with c & spyridium 200 mg po tid prn dysuria to start after sample is obtainedpt educated about orange discolorat ion to urinemonit or ua and consider abx if needed [id number] Jennifer Zaragoza NP [address] [address] 01/06/2024 09:58:30 01/10/2024 11:28:47 Dysuria 92956330 R30.0 UTI ruled outpt with report of dysuria and frequency, states she has not had bowel movement in a few dayssee constipati on01/05 urinalysis with c & s with culture showing no infection dc pyridium 200 mg po tid prnmonitor ua and consider abx if needed Osteoarthr itis of left knee joint 7366469002 19077 M17.12 end stage OA left knee now s/p TKRpt reports ortho visit yesterday and removed suturesste ri strips in place today.nsg to obtain consult info from orthoASA 325 mg bid for dvt prophylaxi s until 02/02fo ortho recsand update with concerns and monitor for infectionP T OT Eval and treatmonit or for pain control Asthenia 79776479 R53.1 PT OT eval and treatmonit or fall risk Abnormal s mall bowel motility 03305508 R19.8 no bm in a few daysmultiv it with iron qdfiber lax 625 mg po qddocusate 100 mg po bidbisacod yl 5 mg po qhs01/05inc rease senna to 2 tabs per daygive mom 30cc todaymonit or [id number] ANA BENJAMIN NP [facility] [address] 01/11/2024 09:00:48 01/19/2024 12:49:58 Abnormal small bowel motility 77735577 R19.8 no bm in a few days [...] qd Add miralax dailyMonit or bowels Dysuria 51354450 R30.0 UTI ruled outpt had reported dysuria and frequency on 01/05 - no complaints today, seems resolved urinalysis with c & s with culture neg01/05 dc pyridium 200 mg po tid prnmonitor sx. Osteoarthr itis of left knee joint 5935600643 90491 M17.12 end stage OA left knee now [...] home Sat. 7/6monitor for pain control Asthenia 01405001 R53.1 PT OT eval and treatSee above, meeting rehab goals, goal home 7/6monitor fall risk [id number] MELISSA SIMON [address] [place] [address] 01/13/2024 11:41:32 01/19/2024 13:26:02 Osteoarthritis of left knee joint 8997668396 00397 M17.12 end stage OA left knee now s/p TKRASA 325 mg bid for dvt prophylaxi sfollow up with ortho outpatient Restless legs 10198809 G 25.81 ropinirole 0.25 mg po qhs Chronic ob structive pulmonary disease 66870427 J41.1 advair 250/50 bid Vertigo 222165697 R42 carrying dxmeclizin e 25 mg po tid prnmonitor for sx and need for further workupfoll ow up outpatient Allergic rhinitis 489361 04 J30.2 appears to be significan t issue for patient at baselineco ntinue out patient medsavoid PO steroid given post op statusmoni tor sx Chronic id iopathic constipation 39780280 K59.04 appears with dysmotilit y disorderma intained onlinzess 290 mg qdmonitor for effectGI eval prn Primary osteoporosis 276 130961 M81.0 fosamax 70 mg q weekcontin ued Headache disorder 763498 009 G44.89 baseline migraine hxon imitrex prnadded to H Gastroesop hageal reflux disease 349369591 K21.9 famotidine 40 mg qdmonitor for sx relief Abnormal s mall bowel motility 32833197 R19.8 Continue:l inzess 290 mg qd for IBSfiber lax 625 mg po qd docusate 100 mg po bid bisacodyl 10 mg po qhs senna 2 tabs qd miralax 17 gn daily Anxiety 13941936 F41.9 contmirtaz apine 22.5 mg po qhsclonaze ana 1 mg po bid prnmonitor Osteoarthritis 263755496 M19.90 now with 2 knee surgeries to [...] Kimble Member ID Guarantor Name 12/28/2023 1 [facility] - DOS ON OR AFTER 2022 - MEDICARE ADVANTAGE [place] (MEDICARE REPLACEMENT/ADV ANTAGE - PPO) Maida Mitchell [id number] Maida Mitchell 01/04/2024 1 [facility] - DOS ON OR AFTER 2022 - MEDICARE ADVANTAGE [place] (MEDIC[place] REPLACEMENT/ADV ANTAGE - PPO) Maida Mitchell [id number] Maida Mitchell 01/06/2024 1 [facility] - DOS ON OR AFTER 2022 - [place]ICARE [place]AGE [place] ([place]EMENT/ADV ANTAGE - PPO) Maida Mitchell [id number] Maida Mitchell 01/11/2024 1 [facility] - DOS ON OR AFTER 2022 - [place]IC[place]AGE [place] ([place]EMENT/ADV ANTAGE - PPO) Maida Mitchell [id number] Maida Mitchell 01/13/2024 1 [facility] - DOS ON OR AFTER 2022 - MEDICARE [place]AGE [place] ([place] REPLACEMENT/ADV ANTAGE - PPO) Maida Mitchell [id number] Maida Mitchell Notes Date Note Type Note [...] bid for DVT prophylaxis. [facility] and continued care felt [...] or complaints today. Jennifer Zaragoza, KERLINE [address] [facility], [address], [place], [address], [facility] 12/28/2023 13:29:09 01/04/2024 text/html Pt is seen for a n acute rounding visit. She is a 68 yo female admit from hospital after presenting with end stage OA left knee for TKR having failed conservative treatment without complications in hospital on ASA 325 mg bid for DVT prophylaxis. [facility] and continued care felt [...] No cva tenderness. Jennifer Zaragoza NP [address] [facility], [address], [place], [address], [facility] 01/04/2024 18:17:27 01/06/2024 text/html Pt is [...] and well approximated. Jennifer Zaragoza NP [address] [facility], [address], [place], [address], [facility] 01/06/2024 10:22:58 01/11/2024 text/html Pt is [...] breathing (although does have asthma/COPD). ANA BENJAMIN, KELRINE [address] [facility], [address], [place], [address], [facility] 01/11/2024 13:15:56 01/13/2024 text/html Maida is a 68 yr old female seen today for discharge on 01/14/24. Admitted to [facility] from hospital after presenting with end stage [...] she will be receiving support [facility] with [facility]. she can be discharge to home with medications, PT/OT and vna services. PMH is significant for OA,anxiety,RLS,gerd ,copd,chronic constipation,vertig o migraine LARA, osteoporosis MELISSA SIMON [address] [facility], [address], [place], [address], [facility] 01/13/2024 17:48:53 OBGyn Episode No OBEpisode recorded.
== END 2024-09-21 13:45 | disposition home or self-care (01) ==
LOC: HO.RESP 13:44
PROVIDERS: PCP Family Medicine; Visit Provider Family Medicine
DX: J44.9 Chronic obstructive pulmonary disease, unspecified (principal)
CPT/HCPCS: 94010; 94640; 94727; 94729

== ENCOUNTER → 2024-09-21 13:54 | Outpatient (BNV) | payer OTHER, SELFPAY | PROVIDERS: PCP Family Medicine; Visit Provider Internal Medicine Pulmonary Disease | DX: R06.09 Other forms of dyspnea (principal) | CPT/HCPCS: 94060; 94727; 94729 ==

== ENCOUNTER 2024-10-04 10:46 | Outpatient (AMB) | payer OTHER, SELFPAY ==
--- NOTE | 2024-10-04 10:57 | MHC.OFFVIS ---
Vital Signs 10/04/24 11:03 Height 5 ft 8 in Weight 167 lb BMI 25.4 BP 107/64 Blood Pressure Location Rt brachial Position Sitting Pulse 76 Pulse Source Pulse Oximeter Pulse Oximetry (%) 99 Oxygen Delivery Method Room Air Intake Visit Reasons: Presence of artificial knee joint, bilateral Intake Note: Pain today 0/10 Puff Iron Operator Required: Yes Puff Iron Operator Language: Power Station Operator Name: Jessica Accompanied by: Self / Same As Patient Allergies vancomycin [VANCOMYCIN] Allergy (Severe, Verified 10/04/24 11:02) REDNESS,RASH,SWELLING Tetanus & Diphtheria Tox,Adult Allergy (Severe, Uncoded 09/19/24 09:59) FEVER,DIFF.BREATHING HPI Comments Details: Visit completed with asl interpreter Jessica Duong. The patient is a 69-year-old female presenting with left knee pain following her left knee arthroplasty. Last December, she underwent a total knee replacement surgery on her left knee, which is the source of significant discomfort. The patient experiences severe knee pain, particularly reaching maximum intensity at bedtime and during activities involving bending. She must often elevate or extend her leg to alleviate the pain. Additionally, she encounters pain in the anterior region of her knee while walking, especially surrounding the site of the prosthetic implant. The patient has participated in six sessions of physical therapy but found no relief. For pain management, she currently uses Tylenol as prescribed and experiences sensations of heat, inflammation, and swelling. - Onset and Timing: Post total knee arthroplasty in December of the previous year; pain primarily worsens at bedtime. - Quality and Character: Severe; intensity reaches level 10 when present. - Primary Location: Anterior aspect of the left knee around the joint prosthesis. - Exacerbating Factors: Bending of the knee and ambulation. - Relieving Factors: Elevation or extension of the leg. - Interference: Affects bedtime comfort and walking ability. - Affect: Significant impact at bedtime and daily activities requiring knee bending. - Analgesia: Currently using Tylenol - Adverse Effects: Describes sensations of heat, potential swelling, and inflammation in the knee. - Activities of Daily Living: Difficulty with activities requiring knee bending and walking. - Aberrant Drug Related Behaviors: None reported. [facility] Medical History Osteoarthritis of left knee COPD exacerbation Hypoxia Gastric pain Vaginal irritation History of revision of total replacement of right knee joint Lumbar radiculopathy Osteoarthritis GERD (gastroesophageal reflux disease) Small bowel motility disorder COPD (chronic obstructive pulmonary disease) Anxiety Surgical History History of left knee replacement History of right knee joint replacement History of total right knee replacement History of ear surgery Hx of colonoscopy History of esophagogastroduodenoscopy (EGD) Family History Father Diabetes Mother Diabetes Osteoporosis HTN (hypertension) Sister Pancreas cancer Social History Household Members: None Housing: Apartment Are you a primary career placement specialist to a significant other at home: No Do you presently have visiting nurse or other home services: No Alcohol intake: never Patient Tobacco Use Status: Former Tobacco user Tobacco use type: Cigarette e-Cigarette/Vaping Use: Never Used Second Hand Smoke Exposure: No Advance Directives Date on File: 11/28/20 service: No Current occupational status: unemployed and disabled 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 Denies any new pain elsewhere. - Neurological: Denies any radiating pain. Physical Exam Vital Signs: Last Vital Signs Pulse 76 10/04/24 11:03 BP 107/64 10/04/24 11:03 Pulse Ox 99 10/04/24 11:03 Oxygen Delivery Method Room Air 10/04/24 11:03 BMI result Body Mass Index 25.4 General: awake, alert, oriented. Answers questions appropriately. Fully engaged in examination. Skin: warm, dry, intact HEENT: Normocephalic. Hearing intact. Cardiac: External chest normal in appearance. Respiratory: No cough, audible wheezing or stridor. Abdomen: without gross distension. MS:Tender upon palpation on the anterior aspect of the left knee. Full ROM. Well healed post surgical scar anterior aspect left knee. Neurological: Oriented to person, place, time and situation. Thought process intact. No gait abnormalities appreciated. Psychiatric: Appropriate mood and affect. Good judgment and insight. Results Reviewed Results Reviewed: 09/13/2024 Right Knee: Total right knee arthroplasty, without complication evident. Normal soft tissues. Left Knee: Total left knee arthroplasty in place. There is been patellar resurfacing. Femoral and tibial components are intact, and anatomic alignment. No periprosthetic lucency or evidence of loosening. No significant joint effusion. Normal soft tissues. XR/XR knee LT 3V IMPRESSION: 1. Total left knee arthroplasty without complication evident. Assessment & Plan Assessment & Plan (1) Status post bilateral unicompartmental knee replacement: Code(s): Z96.653 - Presence of artificial knee joint, bilateral Category: Surgical (2) Status post total knee replacement, left: Onset Date: ~12/20/23 Comment: Dr. Frost Code(s): Z96.652 - Presence of left artificial knee joint Category: Surgical (3) Left knee pain: Code(s): M25.562 - Pain in left knee Category: Medical Plan The management of the patient's chronic post-surgical knee pain will involve an US guided diagnostic left femoral nerve block injection, following which a peripheral nerve stimulator may be considered if substantial relief is achieved. Insurance approvals for the diagnostic injection will be pursued. Pain management education and documentation of activities and pain levels post-procedural intervention will aid in treatment evaluation. Patient was provided [employer] brochure for review. I discussed the potential benefits and limitations of the proposed two-step pain management plan. The strategy involves initial evaluation through a diagnostic injection to assess the nerve involvement in the patient's pain. Should this prove beneficial, a peripheral nerve stimulator may offer more extended relief and better quality of life. Risks, benefits, recovery expectations, and the temporary nature of the stimulator were outlined. I advised tracking any pain variation post-process. The importance of insurance approval was highlighted as a prerequisite for the procedure. - Await insurance approval for the diagnostic nerve block injection. - Record any changes in pain and its impact on daily activities following the diagnostic injection. - Consistently use Tylenol as directed for pain management unless otherwise advised. - Avoid activities that might exacerbate knee pain; consider leg elevation if pain arises. Patient was informed and verbally consented to the use of an ambient scribe for clinic note documentation during this visit. Coding Level of Care Code New Pt Level 4 (73224) Complex EM visit Add On G2211 Diagnoses Status post bilateral unicompartmental knee replacement Z96.653 Status post total knee replacement, left Z96.652 Left knee pain M25.562
[2024-10-04 11:03] VITALS: BP 107/64; PULSE 76; O2SAT 99; BMI 25.4
--- OUTSIDE RECORDS SUMMARY | 2024-10-04 14:20 | XMS_ITS | Encounter Summary ---
Author Organization [employer] [facility] Address [address] [facility] [address] [place] [address] Care Team Providers Care Rheumatology Nurse Name Role Phone Amelia Montalvo DO Primary Care Provider + [phone] Encounter Details Date Type Department Care Team (Latest Contact Info) Description 03/29/2022 Abstract [facility] CONVERSIONS Dental, Provider, DDS Social History [...] Care Team (Late st Contact Info) Description 10/16/2024 9:45 AM EDT Office Visit [facility] MEDICINE [address] [place] [address] Amelia Montalvo DO [address] [place] [address] 11/06/2024 10:00 AM EDT Office Visit [facility] ADULT DENTAL [address] [place] [address] Cely Guy [address] [place] [address] 12/06/2024 1:30 PM EDT Clinical Support [facility] MEDICINE [address] [place] [address] Mai Bishop RN documented as of this encounter Visit Diagnoses Not on filedocumented in this encounter Care Teams Rheumatology Nurse Relationship Specialty Start Date End Date Amelia Montalvo DO [address] [place] [address] PCP - General Family Medicine 06/23/12 documented as of this encounter
--- OUTSIDE RECORDS SUMMARY | 2024-10-04 14:20 | XMS_ITS | Encounter Summary ---
Author Organization [employer] [facility] Address [address] [facility] [address] [place] [address] Care Team Providers Care Pediatric Anesthesiologist Name Role Phone Amelia Montalvo DO Primary Care Provider [phone] Reason for Visit * Reason Onset Date Comments Pre-op clearance notes 08/26/2023 Encounter Details Date Type Department Care Team (Late st Contact Info) Description 08/26/2023 Telephone [facility] MEDICINE [address] [place] [address] Amelia Montalvo DO [address] [place] [address] Pre-op clearance notes Social History Tobacco Use [...] 08/15 and it can be faxed to [phone] documented in this encounter Plan of Treatment Upcoming Encounters Date Type Department Care Team (Late st Contact Info) Description 10/16/2024 9:45 AM EDT Office Visit [facility] MEDICINE [address] [place] [address] Amelia Montalvo DO [address] [place] [address] 11/06/2024 10:00 AM EDT Office Visit [facility] ADULT DENTAL [address] [place] [address] Cely Guy [address] [place] [address] 12/06/2024 1:30 PM EDT Clinical Support [facility] MEDICINE [address] [place], [place] [phone] Mai Bishop, JAMAAL documented as of this encounter Visit Diagnoses Not on filedocumented in this encounter Care Teams Pediatric Anesthesiologist Relationship Specialty Start Date End Date Amelia Montalvo DO [address] [place] [address] PCP - General Family Medicine 06/23/12 documented as of this encounter
--- OUTSIDE RECORDS SUMMARY | 2024-10-04 14:20 | XMS_ITS | Encounter Summary ---
Author Organization [employer] Address [address] [place] [address] Care Team Providers Care Tobacco Stripping Machine Operator Name Role Phone Amelia Montalvo DO Primary Care Provider + [phone] Reason for Visit * Reason Comments Med Refill Encounter Details Date Type Department Care Team ([facility] st Contact Info) Description 03/14/2024 Refill [facility] MEDICINE [address] [place] [address] Amelia Montalvo DO [address] [place] [address] Other specified anxiety disorders Social History Tobacco [...] Description 10/16/2024 9:45 AM EDT Office Visit [facility] MEDICINE [address] [place] [address] Amelia Montalvo DO [address] [place] [address] 11/06/2024 10:00 AM EDT Office Visit [facility] ADULT DENTAL [address] [place] [address] Cely Guy [address] [place] [address] 12/06/2024 1:30 PM EDT Clinical Support [facility] MEDICINE [address] [place] [address] Mai Bishop RN documented as of this encounter Visit Diagnoses Diagnosis Other specified anxiety disorders documented in this encounter Additional Health Concerns Assessment Noted Time PHQ-9 Depression Total Score: 18 024 2:12 PM EDT documented as of this encounter Care Teams Tobacco Stripping Machine Operator Relationship Specialty Start Date End Date Amelia Montalvo DO [address] [place] [address] PCP - General Family Medicine 06/23/12 documented as of this encounter
--- OUTSIDE RECORDS SUMMARY | 2024-10-04 14:20 | XMS_ITS | Encounter Summary ---
Author Organization [employer] [facility] Address [address] [facility] [address] [place] [address] Care Team Providers Care Nurses' Association Executive Director Name Role Phone Amelia Montalvo DO Primary Care Provider + [phone] Encounter Details Date Type Department Care Team (Latest Contact Info) Description 01/15/2021 Abstract [facility] CONVERSIONS Dental, Provider, DDS Social History Tobacco [...] Description 10/16/2024 9:45 AM EDT Office Visit [facility] MEDICINE [address] [place] [address] Amelia Montalvo DO [address] [place] [address] 11/06/2024 10:00 AM EDT Office Visit [facility] ADULT DENTAL [address] [place] [phone] Cely Guy [address] [place] [address] 12/06/2024 1:30 PM EDT Clinical Support [facility] MEDICINE [address] [place] [phone] Mai Bishop RN documented as of this encounter Visit Diagnoses Not on filedocumented in this encounter Care Teams Nurses' Association Executive Director Relationship Specialty Start Date End Date Amelia Montalvo DO [address] [place] [address] PCP - General Family Medicine 06/23/12 documented as of this encounter
--- OUTSIDE RECORDS SUMMARY | 2024-10-04 14:20 | XMS_ITS | Encounter Summary ---
Author Organization [employer] Address [address] [facility] 7t [place] [address] Care Team Providers Care Radiologic Electronic Specialist Name Role Phone Amelia Montalvo DO Primary Care Provider + [phone] Reason for Visit * Reason Comments Med Refill Encounter Details Date Type Department Care Team (Late st Contact Info) Description 10/25/2023 Refill [facility] [address] [place] [address] Iram Ascencio FNP Social History Tobacco Use [...] Description 10/16/2024 9:45 AM EDT Office Visit [facility] MEDICINE [address] [place] [address] Amelia Montalvo DO [address] [place] [address] 11/06/2024 10:00 AM EDT Office Visit [facility] ADULT DENTAL [address] [place] [address] Cely Guy [address] [place] [address] 12/06/2024 1:30 PM EDT Clinical Support [facility] MEDICINE [address] [place] [address] Mai Bishop, JAMAAL documented as of this encounter Visit Diagnoses Not on filedocumented in this encounter Care Teams Radiologic Electronic Specialist Relationship Specialty Start Date End Date Amelia Montalvo DO [address] [place] [address] PCP - General Family Medicine 06/23/12 documented as of this encounter
--- OUTSIDE RECORDS SUMMARY | 2024-10-04 14:20 | XMS_ITS | Encounter Summary ---
Author Organization [employer] [facility] Address [address] [facility] 7t [place] [address] Care Team Providers Care Fixture Maker Name Role Phone Amelia Montalvo DO Primary Care Provider [phone] Encounter Details Date Type Department Care Team (Latest Contact Info) Description 08/10/2018 Abstract [facility] CONVERSIONS Dental, Provider, DDS Social History [...] Description 10/16/2024 9:45 AM EDT Office Visit [facility] MEDICINE [address] [place] [address] Amelia Montalvo DO [address] [place] [address] 11/06/2024 10:00 AM EDT Office Visit [facility] ADULT DENTAL [address] [place] [address] Cely Guy [address] [place] [address] 12/06/2024 1:30 PM EDT Clinical Support [facility] MEDICINE [address] [place] [address] Mai Bishop RN documented as of this encounter Visit Diagnoses Not on filedocumented in this encounter Care Teams Fixture Maker Relationship Specialty Start Date End Date Amelia Montalvo DO [address] [place] [address] PCP - General Family Medicine 06/23/12 documented as of this encounter
--- OUTSIDE RECORDS SUMMARY | 2024-10-04 14:20 | XMS_ITS | Encounter Summary ---
Author Organization [employer] Address [address] [facility] 7t [place] [address] Care Team Providers Care Sex Worker Or Escort Name Role Phone Amelia Montalvo DO Primary Care Provider + [phone] Reason for Visit * Reason Comments Med Refill Encounter Details Date Type Department Care Team ([facility] st Contact Info) Description 11/15/[address] [facility] MEDICINE [address] [place] [address] Charley Miller MD [address] [place] [address] Social History Tobacco Use Types Packs/Day Years [...] Description 10/16/2024 9:45 AM EDT Office [address] [facility] MEDICINE [address] [place] [address] Amelia Montalvo DO [address] [place] [address] 11/06/2024 10:00 AM EDT Office Visit [facility] ADULT DENTAL [address] [place] [address] Cely Guy [address] [place] [address] 12/06/2024 1:30 PM EDT Clinical Support [facility] MEDICINE [address] [place] [address] Mai Bishop, JAMAAL documented as of this encounter Visit Diagnoses Not on filedocumented in this encounter Care Teams Sex Worker Or Escort Relationship Specialty Start Date End Date Amelia Montalvo DO [address] [place] [address] PCP - General Family Medicine 06/23/12 documented as of this encounter
--- OUTSIDE RECORDS SUMMARY | 2024-10-04 14:20 | XMS_ITS | Encounter Summary ---
Author Organization [employer] [facility] Address [address] [facility] 7t [place] [address] Care Team Providers Care Director Of Sustainability Programs Name Role Phone Amelia Montalvo DO Primary Care Provider [phone] Encounter Details Date Type Department Care Team (Late Contact Info) Description 10/21/2023 Orders Only [facility] MEDICINE [address] [place] [address] Provider, MD Santos Social History Tobacco Use [...] Description 10/16/2024 9:45 AM EDT Office Visit [facility] MEDICINE [address] [place] [address] Amelia Montalvo DO [address] [place] [address] 11/06/2024 10:00 AM EDT Office Visit [facility] ADULT DENTAL [address] [place] [address] Cely Guy [address] [place] [address] 12/06/2024 1:30 PM EDT Clinical Support [facility] MEDICINE [address] [place] [address] Mai Bishop RN documented as of this encounter Procedures Procedure Name Priority Date/Time Associated Diagnosis Comments COLONOSCOPY Routine 05/31/2019 10:01 AM EST documented in this encounter Results * Hm Colonoscopy (05/31/2019 10:01 AM EST) us Historical Provider HEALTH MAINTENANCE Final Result documented in this encounter Visit Diagnoses Not on filedocumented in this encounter Care Teams Director Of Sustainability Programs Relationship Specialty Start Date End Date Amelia Montalvo DO [address] [place] [address] PCP - General Family Medicine 06/23/12 documented as of this encounter
--- OUTSIDE RECORDS SUMMARY | 2024-10-04 14:20 | XMS_ITS | Encounter Summary ---
Author Organization [employer] [facility] Address [address] [facility] 7t [place] [address] Care Team Providers Care Multi Share Program Coordinator Name Role Phone Amelia Montalvo DO Primary Care Provider [phone] Encounter Details Date Type Department Care Team (Latest Contact Info) Description 06/04/2020 Abstract [facility] CONVERSIONS Dental, Provider, DDS Social [...] Description 10/16/2024 9:45 AM EDT Office Visit [facility] MEDICINE [address] [place] [address] Amelia Montalvo DO [address] [place] [address] 11/06/2024 10:00 AM EDT Office Visit [facility] ADULT DENTAL [address] [place] [address] Cely Guy [address] [place] [address] 12/06/2024 1:30 PM EDT Clinical Support [facility] MEDICINE [address] [place] [address] Mai Bishop RN documented as of this encounter Visit Diagnoses Not on filedocumented in this encounter Care Teams Multi Share Program Coordinator Relationship Specialty Start Date End Date Amelia Montalvo DO [address] [place] [address] PCP - General Family Medicine 06/23/12 documented as of this encounter
--- OUTSIDE RECORDS SUMMARY | 2024-10-04 14:20 | XMS_ITS | Clinical Summary ---
Author Organization [employer] Address [address] [place] [address] 7[address] [place] [address] Care Team Providers Care Highway Inspector Name Role Phone Amelia Montalvo DO Primary Care Provider + [phone] Allergies Active Allergy Reactions Criticality Noted Date [...] IN THE EVENING 60 tablet 11 Active rOPINIRole (Requip) 0.25 MG tablet TAKE [...] NOSTRIL TWICE DAILY 30 mL 3 Active loratadine (Claritin) 10 MG tablet TAKE 1 TABLET BY MOUTH EVERY MORNING 90 tablet 1 Active zafirlukast (Accolate) 20 MG tablet TAKE 1 TABLET BY MOUTH TWICE DAILY IN THE MORNING AND IN THE EVENING AFTER MEALS 180 tablet 1 Active clonazePAM (KlonoPIN) 1 MG tabletIndications :Other specified anxiety disorders TAKE 1 TABLET BY MOUTH EVERY TWELVE HOURS 56 tablet 025 2024 Active divalproex (Depakote ER) 250 MG 24 hr tabletIndications :Chronic migraine without aura without status migrainosus, not intractable TAKE 1 TABLET BY MOUTH TWICE DAILY IN THE MORNING AND IN THE EVENING 60 tablet 3 Active zafirlukast (Accolate) 20 MG tablet TAKE 1 TABLET BY MOUTH TWICE DAILY IN THE MORNING AND IN THE EVENING AFTER MEALS 180 tablet 1 024 2024 Discontinued loratadine (Claritin) 10 MG tablet TAKE 1 TABLET BY MOUTH EVERY MORNING 90 tablet 1 024 2024 Discontinued divalproex (Depakote ER) 250 MG 24 hr tabletIndications :Chronic migraine without aura without status migrainosus, not intractable TAKE 1 TABLET BY MOUTH TWICE DAILY IN THE MORNING AND IN THE EVENING 60 tablet 3 024 2024 Discontinued clonazePAM (KlonoPIN) 1 MG tabletIndications :Other [...] and flonase daily -cont accolate daily -review personal chef next visit PREET (generalized anxiety disorder) 07/25/2012 [...] from body habitus and lead placement; normal RI and corrected QT. Referred for stress test and TTE. Per pt to be performed tests this month. -In current evaluation by acid purification equipment operator for Atypical chest pain but difficult [...] Encounters Date Type Department Care Team Description 10/03/2024 Telephone [facility] [address] [place] [address] Amelia Montalvo DO 10/03/2024 Refill [facility] [address] [place] [address] Amleia Montalvo DO Chronic migraine without aura without status migrainosus, not intractable 10/01/2024 Refill [facility] [address] [place] [address] Amelia Montalvo DO Other specified anxiety disorders 09/16/2024 Refill [facility] [address] [place] [address] Amelia Montalvo DO 08/28/2024 Telephone [facility] [address] [place] [address] Amelia Montalvo DO Recall Appt. 08/28/2024 Travel 08/21/2024 Refill [facility] [address] [place], [place] [phone] Amelia Montalvo DO Other specified anxiety disorders 07/26/2024 Refill [facility] [address] [place] [address] Amelia Montalvo DO 07/23/2024 1:00 PM EST Clinical Support [facility] [address] [place] [address] Mai Bishop JAMAAL Anxiety (Primary Dx) 07/23/2024 Refill [facility] [address] [place] [address] Mai Bishop, RN Other specified anxiety disorders 07/23/2024 Travel 07/23/2024 Refill [facility] [address] [place] [address] KatiaAmeliaDO Other specified anxiety disorders 07/23/2024 Telephone [facility] [address] [place] [address] Mai Bishop, JAMAAL Recommend BOBBIN HAULER Tier 2 from Last 3 Months Immunizations [...] Description 10/16/2024 9:45 AM EDT Office Visit [facility] [address] [place] [address] Amelia Montalvo DO [address] [place] [address] 11/06/2024 10:00 AM EDT Office Visit [facility] [address] [place] [address] Brooks, Cely [address] [place] [address] 12/06/2024 1:30 PM EDT Clinical Support [facility] [address] [place] [address] Mai Bishop, RN Health Maintenance Due Date Last Done Comments [...] procedure / Unknown 07/23/2024 1:47 PM EST Narrative Mai Bishop, RN - 07/23/2024 1:47 PM EST UTO[employer] cup Lot#[id number] Exp. 04/04/26 Internal Pass Control Amelia Montalvo DO POINT OF CARE TEST ENTER/MAKAYLA T ORDERABLES Final Result * HEPATITIS C AB W/REFL TO HCV RNA, QN, PCR (01/06/2021 8:12 AM EDT) HEPATITIS C ANTIBODY NON-REACT JULIOCESAR NON-REACT JULIOCESAR [facility] INDEX 0.01 <1.00 [facility] Comment: ?? HCV antibody was non-reactive. There is no laboratory ?? evidence of HCV infection. ?? In most cases, no further action is required. However, if recent HCV exposure is suspected, a test for HCV RNA (test code 69318) is suggested. ?? For additional information please refer to http://education.MPGomatic.com/faq/TNM76g7 (This link is being provided for informational/ educational purposes only.) ?? 01/06/2021 8:12 AM EDT Amelia Montalvo DO HISTORICAL/NON ORDERABLE LAB S Final Result [facility] [address] [place] [address], * Hm Colonoscopy (05/31/2019 10:01 AM EST) Historical Provider HEALTH MAINTENANCE Final Result from Last 3 Months or Most Recently Relevant to Health Maintenance Insurance [facility] Care Teams Highway Inspector Relationship Specialty Start Date End Date Amelia Montalvo DO [address] [place] [address] PCP - General Family Medicine 06/23/12
--- OUTSIDE RECORDS SUMMARY | 2024-10-04 14:20 | XMS_ITS | Encounter Summary ---
Author Organization [employer] Address [address] [facility] 7t [place] [address] Care Team Providers Care Paving Stone Installer Name Role Phone Amelia Montalvo DO Primary Care Provider + [phone] Reason for Visit * Reason Comments Med Refill Encounter Details Date Type Department Care Team ([facility] st Contact Info) Description 11/07/2023 Refill [facility] [address] [place] [address] Amelia Montalvo DO [address] [place] [address] Other specified anxiety disorders Social History Tobacco [...] Description 10/16/2024 9:45 AM EDT Office Visit [facility] [address] [place] [address] Amelia Montalvo DO [address] [place] [address] 11/06/2024 10:00 AM EDT Office Visit [facility] [address] [place] [address] Cely Guy [address] [place] [address] 12/06/2024 1:30 PM EDT Clinical Support [facility] [address] [place] [address] Mai Bishop, JAMAAL documented as of this encounter Visit Diagnoses Diagnosis Other specified anxiety disorders documented in this encounter Care Teams Paving Stone Installer Relationship Specialty Start Date End Date Amelia Montalvo DO [address] [place] [address] PCP - General Family Medicine 06/23/12 documented as of this encounter
--- OUTSIDE RECORDS SUMMARY | 2024-10-04 14:20 | XMS_ITS | Encounter Summary ---
Author Organization [employer] Address [address] [facility] [address]t [place] [address] Care Team Providers Care Campaign Fundraiser Name Role Phone Amelia Montalvo DO Primary Care Provider + [phone] Reason for Visit * Reason Comments Med Refill Encounter Details Date Type Department Care Team ([facility] st Contact Info) Description 09/16/2024 Refill [facility] [address] [place] [address] Amelia Montalvo DO [address] [place] [address] Social History Tobacco Use Types Packs/Day Years [...] Description 10/16/2024 9:45 AM EDT Office Visit [facility] [address] [place] [address] Amelia Montalvo DO [address] [place] [address] 11/06/2024 10:00 AM EDT Office Visit [facility] [address] [place] [address] Brooks, Cely [address] [place] [address] 12/06/2024 1:30 PM EDT Clinical Support [facility] [address] [place] [address] Mai Bishop, JAMAAL documented as of this encounter Visit Diagnoses Not on filedocumented in this encounter Additional Health Concerns Assessment Noted Time PHQ-9 Depression Total Score: 18 024 2:12 PM EDT documented as of this encounter Care Teams Campaign Fundraiser Relationship Specialty Start Date End Date Amelia Montalvo DO [address] [place] [address] PCP - General Family Medicine 06/23/12 documented as of this encounter
--- OUTSIDE RECORDS SUMMARY | 2024-10-04 14:20 | XMS_ITS | Data Portability ---
Author Organization [employer] Address [address] [place] [address] Care Team Providers Care Used Car Sales Manager Name Role Phone HIM [facility] Primary Care Provider [phone] Assessment Encounter Date Assessment Date Assessment LastModified by Organization Details LastModified Time 07/28/2023 07/28/2023 I provided real -time medical direction via phone for this encounter, and was available for additional phone based assistance as needed. I have reviewed and agree with the Assessment and Plan as documented by the Mixed Signal Design Engineer. We discussed the diagnostic uncertainty of home [...] verbalized understanding of instructions to the medic [email or web address] Not available 07/29/2023 00:10:23 04/11/2024 04/11/2024 As noted, we wer e called to see this patient regarding concerns of chest tightness and increased wob. Evaluation in the field was performed by my business economist colleague, as noted above, I provided real-time [...] worsening serious symptoms, particularlyworsening shortness of breath [email or web address] Not available 04/11/2024 18:52:12 Plan of Treatment Reminders Order Date Submit Date Provider Last Modified By Organization Details Last Modified Time Details Appointments None recorded. Lab influenza virus A + B and SARS CoV 2 (COVID-19) and RSV RNA panel, AKASH+probe, respiratory specimen 2023 024 [facility] (Centralized Electronic Ordering - All Locations), Patient Can Go To The Location Of Their Choice, [id number] 04:09:28 rapid SARS CoV 2 Ag, QL IA, respiratory specimen 2023 024 [email or web address] 0 [facility], [address] [place] [address], [id number], 12:36:39 rapid flu (A+B) 2023 024 [email or web address] 0 [facility], [address] [place] [address], [phone], 12:36:41 Referral None recorded. Procedures None recorded. Surgeries None recorded. Imaging None recorded. Medication Orders prednisone 20 mg tablet 2023 [email or web address] [facility], [address] [place] [address], [id number], 16:11:44 prednisone 20 mg tablet 2023 [facility], [address] [place] [address], [id number], 4 12:49:19 albuterol sulfate 2.5 mg/3 mL (0.083 %) solution for nebulizatio n 2023 [facility], [address] [place], [place], [id number], 4 12:49:19 Zithromax Z-Thomas 250 mg tablet 2023 024 [facility], [address] [place], [place], [id number], 4 12:26:06 Mucinex DM 30 mg-600 mg tablet,exte nded release 12 hr 2023 024 [facility], [address] [place], [place], [id number], 4 11:00:00 Patient TargetsNo targets recorded. Patient InstructionsNo instructions recorded. Reason for Referral None Reported. Results Created Date Observation Date Name Description Value Unit Range Abnormal Flag Note LastModifiedBy Organization Detail LastModifiedTime 07/28/1907/28/2023 COVID -19, RSV, FLU A/B PCR covid-19 PCR specimen source NASAL Not Available [facility] (Centralized Electronic Ordering - All Locations) Patient Can Go To The Location Of Their Choice, [id number] 07/29/2023 04:09:28 07/28/1907/29/2023 COVID -19, RSV, FLU [...] Go To The Location Of Their Choice, [id number] 07/29/2023 04:09:28 07/28/1907/29/2023 COVID -19, RSV, FLU [...] Go To The Location Of Their Choice, [facility] 07/29/2023 04:09:28 07/28/19 24 07/29/2023 COVID -19, [...] Go To The Location Of Their Choice, [facility] 07/29/2023 04:09:28 07/28/1907/29/2023 COVID -19, RSV, FLU [...] ng. Resul t repor pilar to the [facility]. All test resul ts must be corre [...] Go To The Location Of Their Choice, [facility] 07/29/2023 04:09:28 07/28/19 24 07/28/2023 rapid flu (A+B) Flu negati ve Not Available [facility] ed [address] [place] [address], [phone], 07/28/2023 12:36:12 07/28/19 24 07/28/2023 rapid SARS CoV 2 Ag, QL IA, respi rator y speci men rapid SARS CoV 2 Ag, QL IA, respiratory specimen negati ve Not Available [facility] ed [address] [place] [address], [phone], 07/28/2023 12:36:04 Result Notes None recorded. Medical Equipment None Reported. Allergies Allergen ID Allergen Name Allergen Category Reaction Reaction Severity Criticality Documentation Date Start Date Code Code System Note Provider Name and Address Organization Details Recorded Time 4376 vancomyci n medicatio n Not available Not available Not available 07/28/2023 69221 RxNorm Not Available [facility] 4 03:35:06 4377 Vaccine product containin g only Clostridi um tetani antigen (medicina l product) medicatio n Not available Not available Not available 07/28/2023 77835 2002 SNOMED Janette Nice MD [address] [place] [address],[address], [place], [phone], [place] [employer] 4 12:27:09 Medications Name Sig Start Date Stop Date Status Note LastModified by Organization Details LastModified Time medbox status USE DIRECTED active Not Available Not Available No t Available pulse oximet airial up8484 USE FOR SHORTNESS OF BREATH OR FOR [...] Address Organization Details Last Updated DateTime 4 25233.2 64 g 97 % 97 % 172.72 cm 97.7 [degF] 17 /min 97 /min 120 mm[Hg] 90 mm[Hg] Not Available [facility] 4 12:21:43 Date Recorded Body temperature Heart rate Oxygen saturation Oxygen saturation in Arterial blood by Pulse oximetry Systolic blood pressure Diastolic blood pressure Provider Name and Address Organization Details Last Updated DateTime 4 98.1 [degF] 77 /min 98 % 98 % 138 mm[Hg] 94 mm[Hg] Not Available [facility] 16:07:34 Social History None recorded. Functional Status None recorded. Mental Status None recorded. Family History Nothing Reported. Medical History No medical history recorded. Gynecological HistoryNo gynecological history recorded. Obstetrics History GPAL:G 0 P 0 0 0 0 Past Encounters Encounter ID Performer Location Encounter Start Date Encounter Closed Date Diagnosis/Indication Diagnosis SNOMED-CT Code Diagnosis ICD10 Code Diagnosis Note [id number] Janette Nice MD Main - [facility] [address] 07/28/2023 12:22:19 07/31/2023 13:34:03 Upper respiratory infection 03422621 J06.9 Likely viral. Advised we will call [...] afebrile without color nasal discharge or sputum [id number] Fortino Guzman MD [facility] - [facility] [address] [place] [phone] 08/08/2023 16:47:19 08/09/2023 11:01:47 Viral upper respiratory tract infection 730425036 J06.9 Acute bronchitis 1374401 2 J20.9 This 77-year-ol d male has had congestion and a cough for almost a month. Mucinex DM hasn't been effective. I ordered a Z-Thomas. He will follow-up with his PCP for any persistent symptoms. The patient agreed with this plan. [id number] Lissy San MD Main - [address] [address] 01/24/2024 12:21:41 01/24/2024 18:25:34 Cough 76312001 R05.9 68 year old female with a [...] assessment and plan as documented by the business economist. I provided real-time medical direction for this encounter and was immediatel y available to provide additional phone-base d assistance as needed. We discussed the diagnostic uncertaint y of home visits and associated risks. We discussed the need to seek care urgently/e mergently in the setting of any new or worsening symptoms. [id number] Jeet Stovall MD Main - [address] [address] 04/11/2024 16:07:31 04/11/2024 23:08:50 Acute exacerbation of chronic obstructive pulmonary disease [id number] J44.1 Health Concerns Section Related Observation LastModified by Organization Detai ls LastModified Time None Recorded Concern Status LastModified by Organization Details LastModified Time None Recorded Advance Directives Directive None Recorded Payers Encounter Date Sequence Insurance Name Policy Number Policy Kimble Covered Member ID Kimble Member ID Guarantor Name 07/28/2023 1 [facility] - DOS ON OR AFTER 2022 - DUAL ELIGIBLE - SHELTER OPTIONS AND ONE CARE (MEDICARE REPLACEMENT/ADV ANTAGE - HMO) Maida Mitchell [id number] Maida Mitchell 08/08/2023 1 [facility] - DOS ON OR AFTER 2022 - DUAL ELIGIBLE - SHELTER OPTIONS AND ONE CARE (MEDICARE REPLACEMENT/ADV ANTAGE - HMO) Maida Mitchell [id number] Maida Mitchell 01/24/2024 1 [facility] - DOS ON OR AFTER 2022 - DUAL ELIGIBLE - SHELTER OPTIONS AND ONE CARE (MEDICARE REPLACEMENT/ADV ANTAGE - HMO) Maida Mitchell [id number] Maida Mitchell 04/11/2024 1 [facility] - DOS ON OR AFTER 2022 - DUAL ELIGIBLE - SHELTER OPTIONS AND ONE CARE (MEDICARE REPLACEMENT/ADV ANTAGE - HMO) Maida Mitchell [id number] Maida Mitchell Notes Date Note Type Note [...] Weakness/Lethargy, Headache, Asthma, COPDPMH: COPD/AsthmaAllergie s: VancomycinComments: Armhole Feller Handstitching Machine verified the member's name//address and phone number [...] ................... ................... ................... ................... ................... ................... ........ Mixed Signal Design Engineer Note From Humza Rabago: Encountered patient conscious, [...] Extremities is free of trauma and edema. [facility] contacted: orders for PCR and orthostatic vital science performed results reported to [facility]. PCR swab to be taken to [facility] laboratory. [facility] to write prescription for medication regimen at patient? s pharmacy of choice. Red flags discussed with patient, patient urged to seek further medical attention. Should she develop priority symptoms, such as chest pain, syncope, fevers, acute shortness of breath or changes in vision. Patient expresses understanding and would like to remain home at this time. Mixed Signal Design Engineer Allergies: Vancomycin ................... ................... ................... ................... ................... [...] during the exam Janette Nice MD [address] [facility],[address], [place], [address], [facility] [employer] 07/29/2023 00:10:48 08/08/2023 text/html CRC Nurse Triage Notes (Demetra Romero): Reason For Request: sob Chief Complaints: Shortness of Breath/Dyspnea PMH: COPD/Asthma Allergies: Vancomycin Comments: Verified identity/ / address Call completed with digital imaging technician Member is a 68 yr old female, FLUME RIDE OPERATOR calling for member with increased weakness and sob for over a week. Per FLUME RIDE OPERATOR , [facility] went out on 07/28. Member was found to be Negative per PCR and mucinex sent . Per member is taking medication. Member is not on home 02, but has neb . Member dry cough, no wheezing when breathing Fortino Guzman MD [address] [facility],[address], [place], [address], [facility] 08/08/2023 17:01:14 01/24/2024 text/html HPI: Member had [...] No further information needed to process visit. Mixed Signal Design Engineer POC Test Results from Yared Saenz - ALS Rapid COVID antigen (12:49:53) COVID: - ................... ................... ................... ................... ................... ................... ................... ........ Mixed Signal Design Engineer Note From Yared Saenz: [facility] dispatched for a 68 YO F [...] prescribed. PT still drinking plenty of fluids. [facility] performs rapid PCR covid test which is negative. PT denies takin any OTC medication for the pain. [facility] contacts PT [facility] who recommends fluids and rest at home. Believes this to be a viral common cold and to let it run its course. [facility] also recommends to follow up with GI doctor about any recent changes with her eating changes or pain levels. [facility] explains to pt that if she experiences any sudden onset SOB, chest pain or sudden N/v that she should contact [facility] for a higher level of care. ................... ................... ................... ................... ................... ................... ................... ........ Disposition: Fulfilled Lissy San MD [address] [facility],[address], [place], [address], [employer] 01/24/2024 13:37:22 04/11/2024 text/html CRC Nurse Triage Notes (Demetra Romero): Reason For Request: PT reporting chest tightness + and some shortness of breath Chief Complaints: Shortness of Breath/Dyspnea PMH: COPD/Asthma Allergies: Vancomycin Comments: Armhole Feller Handstitching Machine verified the member's name//address and phone number. Member is a 68 yr old nepali female , a/o3 PMH >ASthma / copd [...] ................... ................... ................... ................... ................... ................... ........ Mixed Signal Design Engineer Note From Ayo Tomlin: Dispatched for evaluation of a 68 y/o female, Ukrainian speaking only, complaining and requesting an evaluation of shortness of breath and tightness in chest. Upon arrival to pt apartment, pt ambulatory waiting for providers at door. Pt sat on couch and assessment performed, vital signs obtained. Language line utilized due to pt speaking Ukrainian only, with pt and providers able to communicate in short sentences in Mosotho. Assessment found CAOX4, airway open and patent, [...] confirmed pt allergies and pharmacy and contacted [facility]. [facility] ordered Duoneb treatment and to call back after treatment completed with further assessment. Duoneb administered with pt stating improvement in symptoms upon completion, lung sounds clear in all [place], pt work of breathing noted to be improved, pt breathing slower and with less effort. [facility] contacted with update, [facility] ordering second duoneb and 40mg prednisone, with [facility] sending prednisone prescription to pt pharmacy. Providers administered 40mg prednisone and began duoneb treatment. Red flags discussed. Providers then left the residence. All times approximate. ................... ................... ................... ................... ................... ................... ................... ........ Disposition: Pankaj Stovall MD [address] [facility],[address], [place], [address], [employer] 04/11/2024 18:52:26 OBGyn Episode No OBEpisode recorded.
--- OUTSIDE RECORDS SUMMARY | 2024-10-04 14:20 | XMS_ITS | Encounter Summary ---
Author Organization [employer] Address 75 [facility] 7t [place] [address] Care Team Providers Care Product Safety Test Engineer Name Role Phone Amelia Montalvo DO Primary Care Provider [phone] Encounter Details Date Type Department Care Team (Late st Contact Info) Description 09/13/2022 Orders Only [facility] MED & PEDS [address] [place] [address] Amelia Kemp LPN Social History Tobacco Use [...] Description 10/16/2024 9:45 AM EDT Office Visit [facility] MEDICINE [address] [place] [address] Amelia Montalvo DO [address] [place] [address] 11/06/2024 10:00 AM EDT Office Visit [facility] ADULT DENTAL [address] [place] [address] Cely Guy [address] [place] [address] 12/06/2024 1:30 PM EDT Clinical Support [facility] MEDICINE [address] [place] [address] Mai Bishop, JAMAAL documented as of this encounter Visit Diagnoses Not on filedocumented in this encounter Care Teams Product Safety Test Engineer Relationship Specialty Start Date End Date Amelia Montalvo DO 230 [place] [address] PCP - General Family Medicine 06/23/12 documented as of this encounter
--- OUTSIDE RECORDS SUMMARY | 2024-10-04 14:21 | XMS_ITS | Encounter Summary ---
Author Organization [email or web address] Address 75 [facility] 7t [place] [address] Care Team Providers Care Business Machines Teacher Name Role Phone Amelia Montalvo DO Primary Care Provider [phone] Encounter Details Date Type Department Care Team ([facility] st Contact Info) Description 10/03/2024 Telephone [facility] MEDICINE [address] [place] [address] Amelia Montalvo DO [address] [place] [address] Social History Tobacco Use Types Packs/Day Years [...] encounter Miscellaneous Notes * Telephone Encounter - Sherry Mattson - 10/03/2024 11:38 AM EDT Called pt to inform them we have to rs appt from 10/08/24 due to Mai being out we rs appt for 12/06 documented in this encounter Plan of Treatment Upcoming Encounters Date Type Department Care Team (Late st Contact Info) Description 10/16/2024 9:45 AM EDT Office Visit [facility] MEDICINE [address] [place] [address] Amelia Montalvo DO [address] [place] [address] 11/06/2024 10:00 AM EDT Office Visit [facility] ADULT DENTAL [address] [place] [address] Cely Guy [address] [place] [address] 12/06/2024 1:30 PM EDT Clinical Support [facility] MEDICINE [address] [place] [phone] Mia Bishop RN documented as of this encounter Visit Diagnoses Not on filedocumented in this encounter Additional Health Concerns Assessment Noted Time PHQ-9 Depression Total Score: 18 024 2:12 PM EDT documented as of this encounter Care Teams Business Machines Teacher Relationship Specialty Start Date End Date Amelia Montalvo DO [address] [place] [address] PCP - General Family Medicine 06/23/12 documented as of this encounter
--- OUTSIDE RECORDS SUMMARY | 2024-10-04 14:21 | XMS_ITS | Encounter Summary ---
Author Organization [employer] Address 75 [facility] 7t [place] [address] Care Team Providers Care Parquet Floor Layer Name Role Phone Amelia Montalvo DO Primary Care Provider + [phone] Reason for Visit * Reason Comments Med Refill Encounter Details Date Type Department Care Team (Late st Contact Info) Description 12/07/2022 Refill [facility] [address] [place] [address] Iram Ascencio FNP Social History Tobacco Use [...] Description 10/16/2024 9:45 AM EDT Office Visit [facility] MEDICINE [address] [place] [address] Amelia Montalvo DO [address] [place], [place] [phone] 11/06/2024 10:00 AM EDT Office Visit [facility] ADULT DENTAL [address] [place] [address] Farhat Guyaris [address] [place] [address] 12/06/2024 1:30 PM EDT Clinical Support [facility] MEDICINE [address] [place] [address] Mai Bishop RN documented as of this encounter Visit Diagnoses Not on filedocumented in this encounter Care Teams Parquet Floor Layer Relationship Specialty Start Date End Date Amelia Montalvo DO [address] [place] [address] PCP - General Family Medicine 06/23/12 documented as of this encounter
--- OUTSIDE RECORDS SUMMARY | 2024-10-04 14:21 | XMS_ITS | Encounter Summary ---
Author Organization [facility] Address 75 [facility] 7t [place] [address] Care Team Providers Care Tricot Knitter Name Role Phone Amelia Montalvo DO Primary Care Provider [phone] Encounter Details Date Type Department Care Team (Late Contact Info) Description 11/04/[address] [address] Amelia Montalvo DO [address] [place], [place] [phone] Social History Tobacco Use Types Packs/Day Years [...] Description 10/16/2024 9:45 AM EDT Office Visit [facility] MEDICINE [address] [place] [address] Amelia Montalvo DO [address] [place], [place] [phone] 11/06/2024 10:00 AM EDT Office Visit [facility] ADULT DENTAL [address] [place] [address] Cely Guy [address] [place] [address] 12/06/2024 1:30 PM EDT Clinical Support [facility] MEDICINE [address] [place] [address] Mai Bishop RN documented as of this encounter Visit Diagnoses Not on filedocumented in this encounter Care Teams Tricot Knitter Relationship Specialty Start Date End Date Amelia Montalvo DO 230 [place] [address] PCP - General Family Medicine 06/23/12 documented as of this encounter
--- OUTSIDE RECORDS SUMMARY | 2024-10-04 14:21 | XMS_ITS | Encounter Summary ---
Author Organization [employer] Address 75 [facility] 7t [place] [address] Care Team Providers Care Bobbin Trucker Name Role Phone Amelia Montalvo DO Primary Care Provider [phone] Reason for Visit * Reason Onset Date Comments Med Refill 10/01/2024 Encounter Details Date Type Department Care Team ([facility] st Contact Info) Description 10/01/2024 Refill [facility] [address] [place] [address] Amelia Montalvo DO [address] [place] [address] Other specified anxiety disorders Social History Tobacco [...] encounter Miscellaneous Notes * Addendum Note - Jhoan Chavez RN - 10/01/2024 1:16 PM EDTAddended by: JHOAN CHAVEZ on: 10/01/2024 01:16 PM Modules accepted: Orders * Telephone Encounter - Jhoan Chavez RN - 10/01/2024 1:14 PM EDT Josh reviewed, pt. Last picked up 28 day supply clonazepam 08/30/23, rx due and pended * Telephone Encounter - Michelle Vides LPN - 10/01/2024 1:08 PM EDT Received request on clonazePAM (KlonoPIN) 1 MG tablet documented in this encounter Plan of Treatment Upcoming Encounters Date Type Department Care Team (Late st Contact Info) Description 10/16/2024 9:45 AM EDT Office Visit [facility] MEDICINE [address] [place], [place] [phone] Amelia Montalvo DO 230 [place], [place] [phone] 11/06/2024 10:00 AM EDT Office Visit [facility] ADULT DENTAL [address] [place] [address] Brooks, Cely [address] [place] [address] 12/06/2024 1:30 PM EDT Clinical Support [facility] MEDICINE [address] [place] [address] Mai Bishop RN documented as of this encounter Visit Diagnoses Diagnosis Other specified anxiety disorders documented in this encounter Additional Health Concerns Assessment Noted Time PHQ-9 Depression Total Score: 18 024 2:12 PM EDT documented as of this encounter Care Teams Bobbin Trucker Relationship Specialty Start Date End Date Amelia Montalvo DO 230 [place] [address] PCP - General Family Medicine 06/23/12 documented as of this encounter
--- OUTSIDE RECORDS SUMMARY | 2024-10-04 14:21 | XMS_ITS | Encounter Summary ---
Author Organization [email or web address] Address 75 [facility] 7t [place] [address] Care Team Providers Care Human Factors Ergonomist Name Role Phone Amelia Montalvo DO Primary Care Provider [phone] Reason for Visit * Reason Comments Med Refill Encounter Details Date Type Department Care Team ([facility] st Contact Info) Description 12/09/2023 Refill [facility] MEDICINE [address] [place] [address] Amelia Montalvo DO 230 [place] [address] Social History Tobacco Use Types Packs/Day Years [...] Description 10/16/2024 9:45 AM EDT Office Visit [facility] MEDICINE [address] [place] [address] Amelia Montalvo DO [address] [place] [address] 11/06/2024 10:00 AM EDT Office Visit [facility] ADULT DENTAL [address] [place] [address] Farhat Guyaris [address] [place] [address] 12/06/2024 1:30 PM EDT Clinical Support [facility] MEDICINE [address] [place] [address] Mai Bishop RN documented as of this encounter Visit Diagnoses Not on filedocumented in this encounter Care Teams Human Factors Ergonomist Relationship Specialty Start Date End Date Amelia Montalvo DO [address] [place] [address] PCP - General Family Medicine 06/23/12 documented as of this encounter
--- OUTSIDE RECORDS SUMMARY | 2024-10-04 14:21 | XMS_ITS | Encounter Summary ---
Author Organization [employer] Address 75 [facility] 7t [place] [address] Care Team Providers Care Seam Rubbing Machine Operator Name Role Phone Amelia Montalvo DO Primary Care Provider [phone] Reason for Visit * Reason Comments Med Refill Encounter Details Date Type Department Care Team ([facility] st Contact Info) Description 10/03/[address] [facility] MEDICINE [address] [place], [place] [phone] Amelia Montalvo DO [address] [place] [address] Chronic migraine without aura without status migrainosus, not intractable Social History Tobacco Use Types Packs/Day Years [...] 10/16/2024 9:45 AM EDT Office Visit [facility] MEDICINE [address] [place] [address] Amelia Montalvo DO [address] [place] [address] 11/06/2024 10:00 AM EDT Office Visit [facility] ADULT DENTAL [address] [place] [address] Cely Guy [address] [place] [address] 12/06/2024 1:30 PM EDT Clinical Support [facility] MEDICINE [address] [place] [address] Mai Bishop RN documented as of this encounter Visit Diagnoses Diagnosis Chronic migraine without aura without status migrainosus, not intractable documented in this encounter Additional Health Concerns Assessment Noted Time PHQ-9 Depression Total Score: 18 024 2:12 PM EDT documented as of this encounter Care Teams Seam Rubbing Machine Operator Relationship Specialty Start Date End Date Amelia Montalvo DO [address] [place] [address] PCP - General Family Medicine 06/23/12 documented as of this encounter
--- OUTSIDE RECORDS SUMMARY | 2024-10-04 14:21 | XMS_ITS | Encounter Summary ---
Author Organization [facility] Address 75 [facility] 7t [place] [address] Care Team Providers Care Credit Office Manager Name Role Phone Amelia Montalvo DO Primary Care Provider [phone] Encounter Details Date Type Department Care Team (Late st Contact Info) Description 10/26/2022 Orders Only [facility] MEDICINE [address] [place] [address] Michelle Vides LPN Social History Tobacco Use [...] Description 10/16/2024 9:45 AM EDT Office Visit [facility] MED[facility]INE [address] [place] [address] Amelia Montalvo DO [address] [place] [address] 11/06/2024 10:00 AM EDT Office Visit [facility] ADULT DENTAL [address] [place] [address] Cely Guy [address] [place] [address] 12/06/2024 1:30 PM EDT Clinical Support [facility] MEDICINE [address] [place] [address] Mai Bishop, JAMAAL documented as of this encounter Visit Diagnoses Not on filedocumented in this encounter Care Teams Credit Office Manager Relationship Specialty Start Date End Date Amelia Montalvo DO [address] [place] [address] PCP - General Family Medicine 06/23/12 documented as of this encounter
--- OUTSIDE RECORDS SUMMARY | 2024-10-04 14:21 | XMS_ITS | Encounter Summary ---
Author Organization [employer] Address 75 [facility] 7t [place] [address] Care Team Providers Care Engineering Officer Name Role Phone Amelia Montalvo DO Primary Care Provider [phone] Encounter Details Date Type Department Care Team (Late st Contact Info) Description 10/07/2022 Orders Only [facility] CH[facility] MED & PEDS [address] [place], [place] [phone] Amelia Kemp LPN Social History Tobacco Use [...] Description 10/16/2024 9:45 AM EDT Office Visit [facility] MEDICINE [address] [place] [address] Amelia Montalvo DO [address] [place] [address] 11/06/2024 10:00 AM EDT Office Visit [facility] ADULT DENTAL [address] [place] [address] Cely Guy [address] [place] [address] 12/06/2024 1:30 PM EDT Clinical Support [facility] MEDICINE [address] [place] [address] Mai Bishop, RN documented as of this encounter Procedures Procedure Name Priority Date/Time Associated Diagnosis Comments CT HEAD WO CONTRAST Routine 10/22/2022 1 0:52 AM EDT documented in this encounter Results * CT Head w/o Contrast (10/22/2022 10:52 AM EDT) Anatomical Region Laterality Modality Head, Neck Computed Tomogra phy 10/22/2022 10:5 2 AM EDT Narrative 11/02/2022 3:00 PM EDT ? [facility] ?[address] ?[place] [address] ? CT Scan Report ? Signed ? Patient: StephenMaida I ?MR#: [id number] ?? 71 ? : 1955 ?Acct:[id number] ? Age/Sex: 67 / F ?ADM Date: 10/22/22 ? Loc: HO.CT ? Attending Dr: Igor Landry MD ? Ordering Physician: IGOR LANDRY MD ?? Date of Service: 10/22/22 ?? Procedure(s): CT head/brain wo IV con ?? Accession Number(s): [id number] ? cc: IGOR LANDRY MD ? EXAMINATION: [...] 1457 ? DD/ 1052 ? TD/TT: ? Communications Associate: SUJ ? Procedure Note Lola, Image - 11/02/[address] [place] [address] [address] Scan Report Signed Patient: Maida Mitchell IMR#: [id number] 71 : 1955cct:[id number] Age/Sex: 67 / FADM Date: 10/22/22 Loc: HO.CT Attending Dr: Igor Landry MD Ordering Physician: IGOR LANDRY MD Date of Service: 10/22/22 Procedure(s): CT head/brain wo IV con Accession Number(s): [id number] cc: IGOR LANDRY MD EXAMINATION: CT HEAD [...] in OV> 11/02/22 1457 DD/ 1052 TD/TT: Communications Associate: REGINA [facility] External Provider IMG CT PROCEDURES Edited Result - Final documented in this encounter Visit Diagnoses Not on filedocumented in this encounter Care Teams Engineering Officer Relationship Specialty Start Date End Date Amelia Montalvo DO [address] [place] [address] PCP - General Family Medicine 06/23/12 documented as of this encounter
--- OUTSIDE RECORDS SUMMARY | 2024-10-04 14:21 | XMS_ITS | Data Portability ---
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 Management plan discussed with the ENTERTAINMENT USHER student personally. [email or web address] Not available 01/11/2024 13:09:31 Plan of Treatment [...] Recorded Time Chronic obstructi ve pulmonary disease 11346727 Active 2023 Jennifer Zaragoza NP [address] [facility], [address], [place], [address], [facility] [employer] 4 14:58:38 Restless legs 31028392 Active 2023 Jennifer Zaragoza NP [address] [facility], [address], [place], [address], [facility] [employer] 4 14:58:57 Osteoarth ritis 505662725 Active 2023 Jennifer Zaragoza NP [address] [facility], [address], [place], [address], [facility] [employer] 4 14:59:07 Gastroeso phageal reflux disease 420474909 Active 2023 Jennifer Zaragoza NP [address], [address], [place], [address], [facility] 4 14:59:12 Abnormal small bowel motility 93260277 Active 2023 Jennifer Zaragoza NP [address], [address], [place], [address], [facility] 4 14:59:26 Allergic rhinitis 42620888 Active 2023 Jennifer Zaragoza NP [address], [address], [place], [address], [facility] 4 14:59:38 Anxiety 93237590 Active 2023 Jennifer Zaragoza NP [address], [address], [place], [place], [address], [facility] 4 14:59:47 Total knee replaceme nt Active 2023 Jennifer Zaragoza NP [address], [address], [place], [place], [address], [facility] 4 15:00:05 Pain of right knee region 193988214903 105 Active 2023 Jennifer Zaragoza NP [address], [place], [place], [address], [facility] 4 15:02:07 Migraine 21169243 Completed 202312/23/2023 Jennifer Zaragoza NP [address], [address], [place], [place], [address], [facility] 4 15:02:20 Vertigo 030720506 Active 2023 Jennifer Zaragoza NP [address], [address], [place], [address], [facility] 4 15:02:40 Asthenia 89416701 Active 2023 Jennifer Zaragoza NP [address], [address], [place], [address], [facility] 4 15:03:52 Headache disorder 978512080 Active 2023 Omkar Clement MD [address], [address], [place], [address], [facility] 4 11:36:49 Primary osteoporo sis 602548563 Active 2023 Omkar Clement MD [address], [address], [place], [address], [facility] 4 11:37:06 Chronic idiopathi c constipat ion 11022177 Active 2023 Omkar Clement MD [address], [place], [address], [facility] 4 11:37:24 Problem Notes None recorded. Procedures Surgical History Date Name Laterality Status Provider Name and Address Organization Details Recorded Time 2023 total replacement of left knee joint completed Jennifer Zaragoza NP [address], [place], [address], [facility] 4 14:43:53 total replacement of right knee joint completed Jennifer Zaragoza NP [address], [place], [address], [facility] 4 14:43:20 operation on external ear completed Jennifer Zaragoza NP [address] [facility], [address], [place], [address], [facility] 4 14:44:10 colonoscopy completed Jennifer Zaragoza NP [address], [address], [place], [address], [facility] 4 14:44:26 esophagogastroduodenoscopy completed Jennifer Zaragoza NP [address], [address], [place], [address], [facility] 4 14:44:38 Imaging Results None recorded. Procedure Notes None recorded. Medical Equipment None Reported. Allergies Allergen ID Allergen Name Allergen Category Reaction Reaction Severity Criticality Documentation Date Start Date Code Code System Note Provider Name and Address Organization Details Recorded Time 38215 vancomyci n medicatio n other Not available high 12/23/2023 96488 RxNorm redne ss swell ing Not Available Not Available Not Available 04715 tetanus and diphtheri a toxoids Not available anaphylax is severe high 12/23/2023 99765 UNK fever Not Available Not Available Not Available Medications Not known to be on any medication Vitals Date Recorded Body weight Heart rate Respiratory rate Body temperature Oxygen saturation Oxygen saturation in Arterial blood by Pulse oximetry Systolic blood pressure Diastolic blood pressure Provider Name and Address Organization Details Last Updated DateTime 4 18007.4 4 g 75 /min 18 /min 98 [degF] 97 % 97 % 120 mm[Hg] 70 mm[Hg] Jennifer Zaragoza NP [address], [address] [place], [place] [facility] 4 13:15:38 Date Recorded Body weight Heart rate Respiratory rate Body temperature Oxygen saturation Oxygen saturation in Arterial blood by Pulse oximetry Systolic blood pressure Diastolic blood pressure Provider Name and Address Organization Details Last Updated DateTime 4 36525.4 4 g 64 /min 18 /min 97.6 [degF] 97 % 97 % 124 mm[Hg] 68 mm[Hg] Jennifer Zaragoza NP [address], [address] [place] [facility] 4 18:04:40 Date Recorded Body weight Heart rate Respiratory rate Body temperature Oxygen saturation Oxygen saturation in Arterial blood by Pulse oximetry Systolic blood pressure Diastolic blood pressure Provider Name and Address Organization Details Last Updated DateTime 4 43915.4 4 g 62 /min 16 /min 98.4 [degF] 98 % 98 % 124 mm[Hg] 68 mm[Hg] Jennifer Zaragoza NP [address], [address] [place] [facility] 4 09:59:09 Date Recorded Heart rate Respiratory rate Body temperature Oxygen saturation Oxygen saturation in Arterial blood by Pulse oximetry Systolic blood pressure Diastolic blood pressure Provider Name and Address Organization Details Last Updated DateTime 4 78 /min 18 /min 98.5 [degF] 95 % 95 % 118 mm[Hg] 70 mm[Hg] ANA BENJAMIN, KERLINE [address] [facility], [address], [place], [address], [facility] 4 09:45:01 Date Recorded Body weight Heart rate Respiratory rate Body temperature Oxygen saturation Oxygen saturation in Arterial blood by Pulse oximetry Systolic blood pressure Diastolic blood pressure Provider Name and Address Organization Details Last Updated DateTime 4 02892.8 9 g 70 /min 18 /min 98.2 [degF] 99 % 99 % 129 mm[Hg] 74 mm[Hg] MELISSA SIMON [address], [address], [place], [address], [facility] 4 17:48:15 Social History Question Answer Notes LastModified by Organizat ion Details LastModified Time Tobacco Smoking Status Former Smoker Jennifer Zaragoza, KERLINE [address] [facility], [address], [place], [address], [facility] 12/23/2023 14:48:10 Do You Have An [...] B, unspecified formulation 4 completed Della Jeet [facility], [facility] 12/23/2023 10:39:43 Hep B, unspecified formulation 5 completed Della Jeet [facility], [facility] 12/23/2023 10:39:51 Hep B, unspecified formulation 5 completed Della Jeet [facility], [facility] 12/23/2023 10:39:57 Pneumococcal conjugate PCV 13 9 completed Della Jeet [facility] 12/23/2023 10:40:57 pneumococcal polysaccharide PPV23 5 completed Della Jeet [facility] 12/23/2023 10:41:39 pneumococcal polysaccharide PPV23 2 completed Della Jeet [facility] 12/23/2023 10:41:50 pneumococcal polysaccharide PPV23 1 completed Della Jeet [facility] 12/23/2023 10:41:58 influenza, unspecified formulation 2 completed Della Jeet [facility] 12/23/2023 10:42:16 influenza, unspecified formulation 3 completed Della Jeet [facility] 12/23/2023 10:42:24 SARS-COV-2 (COVID-19) vaccine, UNSPECIFIED 1 completed Della Jeet [facility] 12/23/2023 10:42:40 SARS-COV-2 (COVID-19) vaccine, UNSPECIFIED 1 completed Della Jeet [facility] 12/23/2023 10:42:49 SARS-COV-2 (COVID-19) vaccine, UNSPECIFIED 4 completed Della Jeet [facility] 12/23/2023 10:42:56 zoster live 4 completed Della Jeet [facility] 12/23/2023 10:43:30 zoster recombinant 1 completed Della King estella [facility] 12/23/2023 10:43:50 zoster recombinant 1 completed Della soria [facility] 12/23/2023 10:44:01 Past Encounters Encounter ID Performer Location Encounter Start Date Encounter Closed Date Diagnosis/Indication Diagnosis SNOMED-CT Code Diagnosis ICD10 Code Diagnosis Note [id number] Jennifer Zaragoza NP [address] [address] 12/23/2023 14:27:58 12/27/2023 10:39:41 Pain of right knee region 5490217546 12122 M25.561 sp 12/[address] [...] s/s infection Chronic ob structive pulmonary disease 68249113 J44.9 albuterol 2 puff po q 4 prnalb neb q 4hours prn sobflutica sone/salme terol 250/50 bidmonitor Restless legs 67836410 G 25.81 ropinirole 0.25 mg po qhsmonitor Osteoarthritis 909723309 M19.90 now with 2 knee surgeries to help with painwith 2 calcium citrate vit d 3 2 tab bidvit b12 1000 mcg dailyvit d 3 50 mcg po dialyalend ronate 70 mg q weekmonito r Abnormal s mall bowel motility 63532504 R19.8 bm todaymulti vit with iron qdfiber lax 625 mg po qddocusate 100 mg po bidbisacod yl 5 mg po qhsmonitor Gastroesop hageal reflux disease 819615299 K21.9 omeprazole 20 mg bidmetoclo pramide 10 mg po qidlinzess 290 mcgh cap q amfamotidi ne 40 mg po qhszofran 4 mg po q 8 prnmonitor Anxiety 26931069 F41.9 contmirtaz apine 22.5 mg po qhsclonaze ana 1 mg po bid prnmonitor Vertigo 776697915 R42 meclizine 25 mg po tid prn Allergic rhinitis 288614 04 J30.9 azelastine 137mcg intranasal daily both naresfluti casone 50 mcg 2 spray intranasal dailylorat idine 10 mg po dailyzafir lukast 20 mg po bidmonitor Asthenia 60861218 R53.1 pt ot treat and evalmonito r Migraine 37979300 G43.90 9 sumatripta n 100 mg po q 2-4 hours prn (nte 2 doses in 24 hours) [id number] [facility] [address] 12/26/2023 13:46:11 12/29/2023 09:48:46 Pain of right knee region 7196723900 24186 M25.561 sp 12/[address] [...] s/s infection Chronic ob structive pulmonary disease 61339534 J44.9 contalbute rol 2 puff po q 4 prnalb neb q 4hours prn sobflutica sone/salme terol 250/50 bidmonitor Restless legs 20871082 G 25.81 contcropin irole 0.25 mg po qhsmonitor Osteoarthritis 830116806 M19.90 now with 2 knee surgeries to help with painwith 2 calcium citrate vit d 3 2 tab bidvit b12 1000 mcg dailyvit d 3 50 mcg po dialyalend ronate 70 mg q weekmonito r Vertigo 227128193 R42 meclizine 25 mg po tid prn Allergic rhinitis 604189 04 J30.9 azelastine 137mcg intranasal daily both naresfluti casone 50 mcg 2 spray intranasal dailylorat idine 10 mg po dailyzafir lukast 20 mg po bidmonitor Asthenia 93493118 R53.1 pt ot treat and evalmonito r [id number] Omkar Clement MD [address] [address] 12/27/2023 11:30:56 12/29/2023 10:05:35 Osteoarthritis of left knee joint 8737488321 88011 M17.12 end stage OA left knee now s/p TKRASA 325 mg bid for dvt prophylaxi sfollow ortho recs and update with concernsPT OT Eval and treatmonit or for pain control Chronic ob structive pulmonary disease 24009494 J41.1 advair 250/50 bidmonitor respirator y status and albuterol utilizatio n Restless legs 23709781 G 25.81 ropinirole 0.25 mg po qhsmonitor for effect Vertigo 531397626 R42 carrying dxmeclizin e 25 mg po tid prnmonitor for sx and need for further workup Allergic rhinitis 675771 04 J30.2 appears to be significan t issue for patient at baselineco ntinue out patient medsavoid PO steroid given post op statusmoni tor sx Asthenia 48173051 R53.1 PT OT eval and treatmonit or fall risk Chronic id iopathic constipation 09370161 K59.04 appears with dysmotilit y disorderma intained onlinzess 290 mg qdmonitor for effectGI eval prn Primary osteoporosis 276 350639 M81.0 fosamax 70 mg q weekcontin ued Headache disorder 540545 009 G44.89 baseline migraine hxon imitrex prnadded to H Gastroesop hageal reflux disease 732345111 K21.9 famotidine 40 mg qdmonitor for sx relief Cellulitis of left lower limb 5960352617 4901368 L03.116 concern for infection at incision sitestarte d on keflexorth o updated and reeval not felt to be infectedab x d/c'ed [id number] Jennifer Zaragoza NP [facility] [address] 12/28/2023 13:14:27 01/04/2024 15:54:46 Osteoarthritis of left knee joint 0035939119 13777 M17.12 end stage OA left knee now s/p TKRASA 325 mg bid for dvt prophylaxi s until 02/02follow ortho recsand update with concerns and monitor for infectionP T OT Eval and treatmonit or for pain control Cellulitis of left lower limb 7366504485 1158797 L03.116 concern for infection at incision sitestarte d on keflexorth o updated and reeval not felt to be infectedab x d/c'ed on 12/26ice prnwbc is 11.2 on 12/26 elevated, however site is less warm and decreased swellingmo nitor closely for infection and reeval labs on tuesday Asthenia 18809790 R53.1 PT OT eval and treatmonit or fall risk Restless legs 30992103 G 25.81 ropinirole 0.25 mg po qhsmonitor for effect [id number] Jennifer Zaragoza NP [facility] [address] 01/04/2024 16:01:53 01/10/2024 09:58:03 Osteoarthritis of left knee joint 1440734711 96999 M17.12 end stage OA left knee now s/p TKRASA 325 mg bid for dvt prophylaxi s until 02/02follow ortho recsand update with concerns and monitor for infectionP T OT Eval and treatmonit or for pain control Asthenia 81048311 R53.1 PT OT eval and treatmonit or fall risk Restless legs 31299574 G 25.81 ropinirole 0.25 mg po qhsmonitor for effect Dysuria 63073662 R30.0 pt with report of dysuria and frequencyu rinalysis with c & spyridium 200 mg po tid prn dysuria to start after sample is obtainedpt educated about orange discolorat ion to urinemonit or ua and consider abx if needed [id number] Jennifer Zaragoza NP [address] [address] 01/06/2024 09:58:30 01/10/2024 11:28:47 Dysuria 24164876 R30.0 UTI ruled outpt with report of dysuria and frequency, states she has not had bowel movement in a few dayssee constipati on01/05 urinalysis with c & s with culture showing no infection dc pyridium 200 mg po tid prnmonitor ua and consider abx if needed Osteoarthr itis of left knee joint 3676292905 66515 M17.12 end stage OA left knee now s/p TKRpt reports ortho visit yesterday and removed suturesste ri strips in place today.nsg to obtain consult info from orthoASA 325 mg bid for dvt prophylaxi s until 02/02fo ortho recsand update with concerns and monitor for infectionP T OT Eval and treatmonit or for pain control Asthenia 69461400 R53.1 PT OT eval and treatmonit or fall risk Abnormal s mall bowel motility 59611519 R19.8 no bm in a few daysmultiv it with iron qdfiber lax 625 mg po qddocusate 100 mg po bidbisacod yl 5 mg po qhs01/05inc rease senna to 2 tabs per daygive mom 30cc todaymonit or [id number] ANA BENJAMIN NP [facility] [address] 01/11/2024 09:00:48 01/19/2024 12:49:58 Abnormal small bowel motility 80964469 R19.8 no bm in a few days [...] qd Add miralax dailyMonit or bowels Dysuria 31394182 R30.0 UTI ruled outpt had reported dysuria and frequency on 01/05 - no complaints today, seems resolved urinalysis with c & s with culture neg01/05 dc pyridium 200 mg po tid prnmonitor sx. Osteoarthr itis of left knee joint 0794101998 47913 M17.12 end stage OA left knee now [...] home Sat. 7/6monitor for pain control Asthenia 24052338 R53.1 PT OT eval and treatSee above, meeting rehab goals, goal home 7/6monitor fall risk [id number] MELISSA SIMON [address] [place] [address] 01/13/2024 11:41:32 01/19/2024 13:26:02 Osteoarthritis of left knee joint 1009253769 02898 M17.12 end stage OA left knee now s/p TKRASA 325 mg bid for dvt prophylaxi sfollow up with ortho outpatient Restless legs 04692014 G 25.81 ropinirole 0.25 mg po qhs Chronic ob structive pulmonary disease 26052952 J41.1 advair 250/50 bid Vertigo 174136410 R42 carrying dxmeclizin e 25 mg po tid prnmonitor for sx and need for further workupfoll ow up outpatient Allergic rhinitis 116966 04 J30.2 appears to be significan t issue for patient at baselineco ntinue out patient medsavoid PO steroid given post op statusmoni tor sx Chronic id iopathic constipation 19492872 K59.04 appears with dysmotilit y disorderma intained onlinzess 290 mg qdmonitor for effectGI eval prn Primary osteoporosis 276 383645 M81.0 fosamax 70 mg q weekcontin ued Headache disorder 071387 009 G44.89 baseline migraine hxon imitrex prnadded to H Gastroesop hageal reflux disease 152080931 K21.9 famotidine 40 mg qdmonitor for sx relief Abnormal s mall bowel motility 51657847 R19.8 Continue:l inzess 290 mg qd for IBSfiber lax 625 mg po qd docusate 100 mg po bid bisacodyl 10 mg po qhs senna 2 tabs qd miralax 17 gn daily Anxiety 00595949 F41.9 contmirtaz apine 22.5 mg po qhsclonaze ana 1 mg po bid prnmonitor Osteoarthritis 392272296 M19.90 now with 2 knee surgeries to [...] Kimble Member ID Guarantor Name 12/28/2023 1 [facility] - DOS ON OR AFTER 2022 - MEDICARE ADVANTAGE [place] (MEDICARE REPLACEMENT/ADV ANTAGE - PPO) Maida Mitchell [id number] Maida Mitchell 01/04/2024 1 [facility] - DOS ON OR AFTER 2022 - MEDIC[place]AGE [place] ([place]/ADV ANTAGE - PPO) Maida Mitchell [id number] Maida Mitchell 01/06/2024 1 [facility] - DOS ON OR AFTER 2022 - [place]IC[place]AGE [place]/ADV ANTAGE - PPO) Maida Mitchell [id number] Maida Mitchell 01/11/2024 1 [facility] - DOS ON OR AFTER 2022 - [place]IC[place]AGE [place]/ADV ANTAGE - PPO) Maida Mitchell [id number] Maida Mitchell 01/13/2024 1 [facility] - DOS ON OR AFTER 2022 - MEDIC[place]AGE [place] ([place]AC[place]/ADV ANTAGE - PPO) Maida Mitchell [id number] Maida Mitchell Notes Date Note Type Note [...] bid for DVT [facility]. [facility] felt [...] or complaints today. Jennifer Zaragoza, KERLINE [address] [facility], [address], [place], [address], [facility] [employer] [facility] 12/28/2023 13:29:09 01/04/2024 text/html Pt is seen for a n acute rounding visit. She is a 68 yo female admit from hospital after presenting with end stage OA left knee for TKR having failed conservative treatment without complications in hospital on ASA 325 mg bid for DVT prophylaxis. [facility] care felt [...] No cva tenderness. Jennifer Zaragoza NP [address] [facility], [address], [place], [address], [facility] [employer] [facility] 01/04/2024 18:17:27 01/06/2024 text/html Pt is [...] and well approximated. Jennifer Zaragoza NP [address] [facility], [address], [place], [address], [facility] [employer] [facility] 01/06/2024 10:22:58 01/11/2024 text/html Pt is [...] does have asthma/COPD). ANA BENJAMIN, KERLINE [address] [facility], [address], [place], [address], [employer] 01/11/2024 13:15:56 01/13/2024 text/html Maida is a 68 yr old female seen today for discharge on 01/14/24. Admitted to [facility] from hospital after presenting with [...] she will be receiving support services with [facility]. she can be discharge to home with medications, PT/OT and vna services. PMH is significant for OA,anxiety,RLS,gerd ,copd,chronic constipation,vertig o migraine LARA, osteoporosis MELISSA SIMON [address] [facility], [address], [place], [address], [employer] 01/13/2024 17:48:53 OBGyn Episode No OBEpisode recorded.
== END 2024-10-04 11:26 | disposition home or self-care (01) ==
LOC: HO.PMC 10:47
PROVIDERS: PCP Family Medicine; Referring Provider Orthopaedic Surgery; Visit Provider Registered Nurse Emergency
DX: Z96.653 Presence of artificial knee joint, bilateral (principal); Z96.652 Presence of left artificial knee joint; M25.562 Pain in left knee
CPT/HCPCS: 99204; G2211

== ENCOUNTER → 2024-10-04 10:46 | Outpatient (BNVA) | payer OTHER, SELFPAY | PROVIDERS: PCP Family Medicine; Referring Provider Orthopaedic Surgery; Visit Provider Registered Nurse Emergency | DX: M25.562 Pain in left knee (principal); Z96.653 Presence of artificial knee joint, bilateral; Z96.652 Presence of left artificial knee joint | CPT/HCPCS: 99202 ==

== ENCOUNTER 2024-10-15 09:21 | Emergency (ER) | payer OTHER, SELFPAY ==
--- NOTE | ~2024-10-15 | XR_ITS ---
EXAMINATION: XR CHEST CLINICAL INFORMATION: cough, sob COMPARISON: April 06, 2024. TECHNIQUE: 2 views of the chest were obtained. FINDINGS: Hyperinflated lungs. Bilateral apical lung scarring. No consolidation, pleural effusion or pneumothorax. Cardiomediastinal silhouette size is normal. Tortuosity thoracic aorta. Multilevel thoracic spondylosis. XR/XR chest 2V IMPRESSION: No acute airspace disease. Consider COPD emphysematous type changes. Electronically signed by: Ranjeet Mckenzie MD 10/15/2024 10:13 AM EDT
[2024-10-15 09:30] VITALS: BP 108/64; PULSE 85; RESP 16; TEMP 36.9; O2SAT 95; BMI 26.1
--- NOTE | 2024-10-15 09:50 | ED_ITS ---
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 Reports associated R ear tinnitus, postnasal drip, and head pressure. Reports seen at [facility] last week for similar symptoms and started on Prednisone. Reports went to [facility] again this AM and was sent here. Denies fevers, chills, chest pain, abd pain, N/V/D, dysuria. Onset (ago): week(s) (1) Pain Consistency: constant Relieving factors: none Exacerbating factors: none Associated symptoms: cough and headaches Treatments prior to arrival: NSAID and other (prednisone) Related Data Home Medications ?Medication ?Instructions ?Recorded ?Confirmed cholecalciferol (vitamin D3) 50 50 mcg PO DAILY 05/21/20 08/02/24 mcg (2,000 unit) tablet cyanocobalamin (vitamin B-12) 1,000 mcg PO DAILY 05/21/20 08/02/24 1,000 mcg tablet loratadine 10 mg tablet 10 mg PO DAILY 05/21/20 08/02/24 zafirlukast 20 mg tablet 20 mg PO BID 05/21/20 08/02/24 albuterol sulfate 90 mcg/actuation 2 puff PO Q4H PRN dyspnea 11/28/20 08/02/24 aerosol inhaler ropinirole 0.25 mg tablet 0.25 mg PO BEDTIME 02/09/22 08/02/24 albuterol sulfate 2.5 mg/3 mL 2.5 mg inhalation Q4H PRN 03/02/22 08/02/24 (0.083 %) solution for nebulization Shortness Of Breath Or Wheezing fluticasone 250 mcg-salmeterol 50 1 ea inhalation BID 03/02/22 08/02/24 mcg/dose blistr powdr for inhalation fluticasone propionate 50 2 spray intranasal DAILY 03/31/22 08/02/24 mcg/actuation nasal spray,suspension ibuprofen 400 mg tablet 400 mg PO Q6H PRN fever 10/21/22 08/02/24 clonazepam 1 mg tablet 1 mg PO BID PRN Anxiety 11/25/22 08/02/24 meclizine 25 mg tablet 25 mg PO TID PRN dizziness 02/04/23 08/02/24 azelastine 137 mcg (0.1 %) nasal 1 spray intranasal DAILY 03/31/23 08/02/24 spray multivitamin-iron sulfate 15 1 tab PO DAILY 03/31/23 08/02/24 mg-folic acid 400 mcg tablet (Tab-A-Aurea Multivitamin w-iron) ondansetron 4 mg disintegrating 4 mg PO Q8H 05/12/23 08/02/24 tablet mirtazapine 15 mg tablet 22.5 mg PO BEDTIME 05/16/23 08/02/24 calcium polycarbophil 625 mg 625 mg PO DAILY 05/18/23 08/02/24 tablet (Fiber-Lax) alendronate 70 mg tablet 70 mg PO QWEEK 11/16/23 08/02/24 calcium 200 mg (as 2 tab PO BID 11/16/23 08/02/24 citrate)-vitamin D3 6.25 mcg (250 unit) tablet (Craven Calcium) divalproex 250 mg tablet,extended mg PO 05/10/24 08/02/24 release 24 hr melatonin 5 mg tablet 5 - 10 mg PO BEDTIME PRN 10/04/24 sumatriptan succinate 50 mg tablet mg PO 10/04/24 Previous Rx's ?Medication ?Instructions ?Recorded naproxen 500 mg tablet 500 mg PO BID PRN pain 10 days #20 05/26/23 tabs famotidine 40 mg tablet 40 mg PO BEDTIME #30 tabs 11/16/23 walker #1 ea 12/14/23 walker #1 ea 12/15/23 acetaminophen 325 mg tablet 650 mg (2 x 325 mg) PO Q6H PRN 12/21/23 Pain, Mild (Pain Scale 1-3) 30 days #240 tabs docusate sodium 100 mg capsule 100 mg PO BID #60 caps 05/01/24 metoclopramide HCl 10 mg tablet 10 mg PO QID #120 tabs 05/01/24 (Reglan) omeprazole 20 mg capsule,delayed 20 mg PO BID #60 caps 05/01/24 release linaclotide 290 mcg capsule 290 mcg PO QAM 30 days #30 caps 05/29/24 (Linzess) bisacodyl 5 mg tablet,delayed See Rx Instructions PO BEDTIME #60 09/05/24 release tabs fluticasone 250 mcg-salmeterol 50 1 inh inhalation BID Asthma/Copd 09/24/24 mcg/dose blistr powdr for 30 days #60 ea inhalation (Wixela Inhub) doxycycline hyclate 100 mg tablet 100 mg PO BID 7 days #14 tabs 10/15/24 prednisone 20 mg tablet 20 mg PO DAILY 7 days #7 tabs 10/15/24 Allergies Allergy/AdvReac Type Severity Reaction Status Date / Time vancomycin [VANCOMYCIN] Allergy Severe REDNESS,ANDI Verified 10/15/24 09:33 H,SWELLING Tetanus & Diphtheria Allergy Severe FEVER,DIFF. Uncoded 10/15/24 09:33 Tox,Adult BREATHING Review of Systems 2 Constitutional: Constitutional: Reports no additional constitutional complaints, Reports body ache(s), Denies chills, Denies fever(s), Reports headache(s), Denies night sweats and Reports weakness Eyes: Eyes: Reports no additional eye complaints, Denies blurry vision, Denies change in vision, Denies diplopia and Denies loss of vision Comments: Reports clear, watery fluid from eyes. ENT: Reports Normal hearing present, Denies dizziness, Reports headache(s), Denies hearing loss, Denies mouth lesions, Reports nasal congestion, Reports nasal discharge, Reports post nasal drip, Reports tinnitus, Reports sinus pressure and Denies throat swelling Comments: Tinnitus R ear. Reports hx of tympanostomy tubes placed. Cardiovascular: Cardiovascular: Reports no additional cardiovascular complaints, Denies chest pain, Denies lightheadedness and Denies Loss of Consciousness Respiratory: Respiratory: Reports no additional respiratory complaints C omments: SOB with exertion. Gastrointestinal: Gastrointestinal: Reports no additional gastrointestinal complaints, Denies abdominal pain, Denies diarrhea, Denies nausea and Denies vomiting Genitourinary: Genitourinary: Denies hematuria, Denies urinary frequency, Denies dysuria, Denies urinary incontinence, Denies urinary hesitancy and Denies urinary urgency Musculoskeletal: Musculoskeletal: Reports myalgias and Denies tingling Neurologic: Reports Normal hearing present, Denies dizziness, Reports headache(s), Denies loss of vision, Denies tingling and Reports weakness Psychiatric: Psychiatric: Reports no additional psychiatric complaints Endocrine: Endocrine: Reports no additional endocrine complaints Hematologic/Lymphatic: Hematologic/Lymphatic: Reports no additional hematologic/lymphatic complaints Allergic/Immunologic: Allergic/Immunologic: Reports no additional allergic/immunologic complaints and Denies throat swelling PMFSH Past Medical History Attestation statement: The following information was validated with the patient. Source: old records reviewed and nursing notes reviewed Medical History Osteoarthritis of left knee COPD exacerbation Hypoxia Gastric pain Vaginal irritation History of revision of total replacement of right knee joint Lumbar radiculopathy Osteoarthritis GERD (gastroesophageal reflux disease) Small bowel motility disorder COPD (chronic obstructive pulmonary disease) Anxiety Surgical History History of left knee replacement History of right knee joint replacement History of total right knee replacement History of ear surgery Hx of colonoscopy History of esophagogastroduodenoscopy (EGD) Family History Family History Father Diabetes Mother Diabetes Osteoporosis HTN (hypertension) Sister Pancreas cancer Social History Social History Household Members: None Housing: Apartment Are you a primary rental boats caretaker to a significant other at home: No Do you presently have visiting nurse or other home services: No Alcohol intake: never Patient Tobacco Use Status: Former Tobacco user Tobacco use type: Cigarette e-Cigarette/Vaping Use: Never Used Second Hand Smoke Exposure: No Advance Directives: Yes Advance Directives on File: Yes Advance Directives Date on File: 11/28/20 Do you have a plan to hurt others: No Plan service: No Current occupational status: unemployed and disabled 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 Physical Exam ED Vital Signs: Vital Signs - 24 hr 10/15/24 09:30 10/15/24 12:42 Temperature 98.5 F 97.8 F Pulse Rate 85 66 Respiratory Rate 16 16 Blood Pressure 108/64 115/55 L Pulse Oximetry 95 94 Oxygen Delivery Method Room Air Room Air BMI result Body Mass Index 26.1 Const General: cooperative, no acute distress, alert and awake Nutritional Appearance: well nourished Orientation/consciousness: patient oriented x3 Limitations: no limitations HENMT Head: Yes normal to inspection and Yes atraumatic Ears: hearing grossly normal bilaterally and external ears normal General nose exam: Normal external nose present, no nasal discharge noted and no epistaxis Face and sinus: Yes normal facial exam, Yes face symmetric, No abrasion and No laceration Mouth: Normal oral and palatal mucosa present, moist mucous membranes, no drooling, no muffled voice and no trismus Throat: Yes posterior oropharynx normal, Yes uvula midline and No peritonsillar mass Eyes General: appearance normal, both eyes and all related structures Periorbital: periorbital findings normal Eyelids: Yes eyelids normal Conjunctivae: conjunctivae normal Pupils: Equal, round and reactive pupils present EOM: EOMs intact bilaterally Neck Neck: Yes normal visual inspection, Yes full ROM and Yes no lymphadenopathy Chest Chest palpation & inspection: normal inspection of the chest Resp Effort & Inspection: normal respiratory effort, able to speak in complete sentences and Actively coughing Cardio Rate: regular rate Rhythm: regular rhythm GI Inspection: Yes normal to inspection Neuro General: patient oriented x3, moves all extremities and CN's II-XI intact bilaterally Cranial nerves: Yes Equal, round and reactive pupils present and Yes Normal hearing present Cognition (Neuro): normal cognition Extrem General: Yes normal to inspection, Yes full ROM and Yes capillary refill normal Psych Appearance: grossly normal Mental Status: mental status grossly normal Affect: normal affect Attitude: cooperative Thought process: Normal thought process present Thought content: Normal thought content present Insight: Good insight present (Psych) Medical Decision Making Medical Decision Making MDM Narrative: Patient is a 69 year old assigned female at with a history of COPD, OA, anxiety, and GERD presenting to the emergency department today with nasal congestion and persistent cough while on prednisone. Patient's physical exam was as noted in the physical exam portion of this note. Patient's blood work was unremarkable. Patient's chest x-ray showed no acute process. I explained my physical exam findings as well as all test results to the patient. I answered all questions asked by the patient. Given the patient's presentation, will treat for COPD exacerbation and sinusitis. I stressed the importance of the patient taking her medication as directed (either prescribed or as the over the counter packaging recommends). I stressed the importance of the patient following up with her primary care provider and ap processor. I stressed the importance of the patient returning to the emergency department immediately if her symptoms were to worsen or if she were to develop any dizziness, shortness of breath, difficulty breathing, chest pain, blurry vision, loss of vision, nausea, vomiting, abdominal pain, fever, chills, back pain, or any other complaints. Patient verbalized agreement and understanding with this treatment plan and discharge. Differential Diagnosis Differential Diagnoses: The differential diagnosis associated with the presentation includes Sinusitis COPD exacerbation Cough Admission/Observation Consideration of admission/observation: Escalation of care including admission/observation considered Patient would have been admitted to the hospital had her work up had any findings where hospital admission was appropriate and her clinical presentation warranted hospital admission. Lab Data [facility] Lab Attestation statement: I reviewed the patient's lab results. My interpretation of these results are in the [facility] Rationale portion of this note. 10/15/24 10:35 10/15/24 10:36 Labs: Lab Results 10/15/24 10/15/24 Range/Units 10:35 10:36 WBC 5.6 (4.8-10.8) X10*3/uL RBC 4.38 (4.20-5.50) X10*6/uL Hgb 11.6 L (12.0-16.0) g/dl Hct 36.9 L (37.0-47.0) % MCV 84.2 (80.0-98.0) fL MCH 26.5 L (27.0-33.0) pg MCHC 31.4 (31.0-35.0) g/dl RDW 14.5 (11.0-16.0) % Plt Count 288 D (160-400) X10*3/uL MPV 8.7 L (9.4-12.3) fL Immature Gran % (Auto) 0.2 (0.0-0.4) % Neut % (Auto) 55.4 (45-73) % Lymph % (Auto) 31.5 (20-40) % [place] % (Auto) 12.5 H (2-11) % Eos % (Auto) 0.2 (0-4) % Baso % (Auto) 0.2 (0-2) % Lymph # (Auto) 1.8 (1.2-4.9) X10*3/uL [place] # (Auto) 0.7 (0.1-1.2) X10*3/uL Eos # (Auto) 0.0 (0.0-0.4) X10*3/uL Baso # (Auto) 0.0 (0.0-0.2) X10*3/uL Abs Immat Gran (auto) 0.01 (0.00-0.03) X10*3/uL Absolute Neuts (auto) 3.1 (2.0-8.3) x10*3/uL Absolute Nucleated RBC 0.000 (0.0-0.012) X10*3/uL Nucleated RBC % (auto) 0.0 (0.0-0.2) /100WBC Sodium 143 (135-145) mmol/L Potassium 4.0 (3.3-5.1) mmol/L Chloride 108 (96-108) mmol/L Carbon Dioxide 28 (22-29) mmol/L Anion Gap 11 L (12-20) BUN 14 (9-16) mg/dL Creatinine 0.77 (0.5-1.4) mg/dL Estim Creat Clear Calc 73.5 Estimated GFR > 60 Random Glucose 85 (60-115) mg/dL Calcium 8.7 D (8.4-10.2) mg/dL Total Bilirubin 0.2 (0.0-1.0) mg/dL AST 18 (5-31) U/L ALT 16 (0-31) U/L Alkaline Phosphatase 67 (39-117) U/L Total Protein 6.2 L (6.5-8.0) g/dL Albumin 3.8 (3.5-5.0) g/dL Influenza Type A (PCR) NEGATIVE (Negative) Influenza Type B (PCR) NEGATIVE (Negative) RSV RNA Qual (PCR) NEGATIVE (Negative) SARS-CoV-2 RNA (RT-PCR) NEGATIVE (Negative) Independent Interpretation I performed an independent interpretation of an: Plain X-Ray Interpretation: My interpretation is in agreement with the radiologist's impression of this imaging study. L EXAMINATION: XR CHEST CLINICAL INFORMATION: cough, sob COMPARISON: April 06, 2024. TECHNIQUE: 2 views of the chest were obtained. FINDINGS: Hyperinflated lungs. Bilateral apical lung scarring. No consolidation, pleural effusion or pneumothorax. Cardiomediastinal silhouette size is normal. Tortuosity thoracic aorta. Multilevel thoracic spondylosis. XR/XR chest 2V IMPRESSION: No acute airspace disease. Consider COPD emphysematous type changes. Electronically signed by: Ranjeet Mckenzie MD 10/15/2024 10:13 AM EDT RP Dictated By: Ranjeet Noriega MD Signed By: Electronically signed by Ranjeet Mederos MD 10/15/24 1013 Radiology Impression Discussion of test interpretation with radiology: I have reviewed the radiologist's reading. Prescription Management I considered prescription management with: Antibiotic (patient prescribed an antibiotic for sinusitis + COPD exacerbation.) Discharge Plan Discharge Clinical Impression: COPD exacerbation, Sinusitis Patient Disposition: Home, Self-Care Instructions: Sinusitis (ED), COPD (Chronic Obstructive Pulmonary Disease) (DC) Additional Instructions: Please take your medication as prescribed as well as using your inhaler and nebulizer machine as directed. Please follow up with your ap processor. Please stay out of direct sunlight while on this medication and avoid ingesting dairy products. [place] os seus medicamentos conforme prescrito e utilize o seu inalador e nebulizador conforme indicado. Fa?a o acompanhamento com o seu pneumologista. Por favor, mantenha-se afastado da addison solar direta enquanto estiver a nithin javier medicamento e evite ingerir produtos l?cteos. Follow up with your primary care provider. Return to the emergency department immediately if your symptoms worsen or if you develop any dizziness, shortness of breath, difficulty breathing, chest pain, blurry vision, loss of vision, nausea, vomiting, abdominal pain, fever, chills, back pain, or any other complaints. Mars?seguimiento?con frey m?dico de atenci?n primaria. Acuda inmediatamente al servicio de urgencias si ellis s?ntomas empeoran o si presenta falta de aliento, dificultad para respirar, dolor tor?cico, mareos, aturdimiento, dolor de espalda, dolor abdominal, fiebre, escalofr?os o cualquier otro s?ntoma. Please see the information below about our Patient Portal. If you are not yet enrolled in the [facility] Patient Portal, you will receive an enrollment email invitation following your visit to any [facility] care setting. You may also self-enroll in the Patient Portal by visiting our website: [email or web address] The following information is required to access the Patient Portal: - Your [facility] Medical Record Number - Your personal home email address (must match what is in your electronic medical record, Registration staff can assist with this) - Name - Date of Capabilities of the Patient Portal: - Message some providers - View upcoming appointments - Access your health summary, medical history, and visit history - View current conditions and allergies - View procedure and lab results - View your medications, including guidelines, side effects, and precautions - Complete pre-appointment questionnaires requested by your provider - Ready summary reports of your office visits and procedures To access the Patient Portal Mobile [place], follow these directions: - Search DataPad in the [place] Store or [employer] Store - Download the [place] - Search for [facility] - Enter your login/password Portal del paciente Si usted no esta inscrito en el portal de pacientes de [facility], recibira ying invitacion de inscripcion despues de frey visita al [facility] o al [facility] via correo electronico. Tambien puede inscribirse voluntariamente en el portal de pacientes visitando nuestra pagina web: [email or web address] La siguiente informacion sera requerida para acceder al portal: - Frey narayan de historia medica de [facility] - Frey direccion de correo electronico personal - Nombre - Fecha de nacimiento Capacidades: Las siguientes capacidades estan disponibles en el portal de pacientes: - Enviar mensajes a algunos doctores - Verificar proximas citas - Acceso a frey historial de davis, registro medico e historial de visitas - Bridget las condiciones actuales y alergias bridget procedimientos y resultados del laboratorio - Bridget ellis medicamentos, incluyendo las pautas - Efectos secundarios y precauciones - Completar o llenar formularios / cuestionarios de - Citas solicitadas por frey doctor - Leer los resumenes de reportes medicos de ellis visitas y procedimientos Jericho acceder a la aplicacion movil: - Mónica [employer] en la [place] Store o [employer] Store - Descargue la aplicacion - [facility] - Ingrese frey nombre de usuario / Contrasena Prescriptions: New prednisone 20 mg tablet 20 mg PO DAILY 7 Days Qty: 7 0RF doxycycline hyclate 100 mg tablet 100 mg PO BID 7 Days Qty: 14 0RF No Action (DME) walker Misc See Rx Instructions .MEDSUPPLY Qty: 1 0RF Rx Instructions: Folding Front wheeled walker Linzess 290 mcg capsule 290 mcg PO QAM 30 Days Qty: 30 6RF Rx Instructions: PLEASE PUT IN MED BOX FORMAT bisacodyl 5 mg tablet,delayed release (DR/EC) See Rx Instructions PO BEDTIME Qty: 60 6RF Rx Instructions: 2 tabs qhs and 1 qam orally bedtime; PLEASE PUT IN PILL PACKS fluticasone propion-salmeterol [Wixela Inhub] 250-50 mcg/dose blister with device 1 inh inhalation BID MDD Asthma/COPD 30 Days Qty: 60 5RF albuterol sulfate 90 mcg/actuation HFA aerosol inhaler 2 puff PO Q4H PRN (Reason: dyspnea) acetaminophen 325 mg Tablet 650 mg PO Q6H PRN (Reason: Pain, Mild (Pain Scale 1-3)) 30 Days Qty: 240 0RF naproxen 500 mg tablet 500 mg PO BID PRN (Reason: pain) 10 Days Qty: 20 0RF loratadine 10 mg tablet 10 mg PO DAILY zafirlukast 20 mg tablet 20 mg PO BID cyanocobalamin (vitamin B-12) 1,000 mcg tablet 1,000 mcg PO DAILY cholecalciferol (vitamin D3) 50 mcg (2,000 unit) tablet 50 mcg PO DAILY clonazepam 1 mg tablet 1 mg PO BID PRN (Reason: Anxiety) fluticasone propion-salmeterol 250-50 mcg/dose blister with device 1 ea inhalation BID albuterol sulfate 2.5 mg /3 mL (0.083 %) solution for nebulization 2.5 mg inhalation Q4H PRN (Reason: Shortness Of Breath Or Wheezing) fluticasone propionate 50 mcg/actuation spray,suspension 2 spray intranasal DAILY ibuprofen 400 mg tablet 400 mg PO Q6H PRN (Reason: fever) ropinirole 0.25 mg tablet 0.25 mg PO BEDTIME meclizine 25 mg tablet 25 mg PO TID PRN (Reason: dizziness) Tab-A-Aurea Multivitamin w-iron 15 mg iron- 400 mcg tablet 1 tab PO DAILY azelastine 137 mcg (0.1 %) aerosol,spray 1 spray intranasal DAILY divalproex 250 mg tablet extended release 24 hr PO sumatriptan succinate 50 mg tablet PO melatonin 5 mg tablet 5 - 10 mg PO BEDTIME PRN ondansetron 4 mg tablet,disintegrating 4 mg PO Q8H mirtazapine 15 mg tablet 22.5 mg PO BEDTIME calcium polycarbophil [Fiber-Lax] 625 mg tablet 625 mg PO DAILY (DME) micaela [facility] See Rx Instructions .MEDSUPPLY Qty: 1 0RF Rx Instructions: Priscilla Front wheeled micaela calcium citrate-vitamin D3 [Craven Calcium-Vitamin D3] 200 mg-6.25 mcg (250 unit) tablet 2 tab PO BID alendronate 70 mg tablet 70 mg PO QWEEK famotidine 40 mg tablet 40 mg PO BEDTIME Qty: 30 6RF docusate sodium 100 mg capsule 100 mg PO BID Qty: 60 6RF Rx Instructions: Please put into pill pack for bid dosing metoclopramide HCl [Reglan] 10 mg tablet 10 mg PO QID Qty: 120 6RF Rx Instructions: PLEASE PUT THIS IS A PILL BOX FORMAT SCHEDULED QID, second request please put this in the pill box scheduled qid omeprazole 20 mg capsule,delayed release(DR/EC) 20 mg PO BID Qty: 60 6RF Referrals: Jared Langley MD [Physician] - Amelia Montalvo DO [Primary Care Provider] - Interventions: ED Discharge Assessment Last Done: 10/15/24 12:42 Discharge Date/Time: 10/15/24 12:43 Print Language: [place]
[2024-10-15 10:43] LABS: MANUAL DIFF FLAG NO
[2024-10-15 10:45] LABS: Basophils Percent Auto 0.2 % (0-2); Eosinophils Percent Auto 0.2 % (0-4); Hematocrit 36.9 % (37.0-47.0); Hemoglobin 11.6 g/dl (12.0-16.0); Imm Gran Abs Auto 0.01 X10*3/uL (0.00-0.03); Imm Gran Pct Auto 0.2 % (0.0-0.4); Lymphocytes Absolute Auto 1.8 X10*3/uL (1.2-4.9); Lymphocytes Percent Auto 31.5 % (20-40); Mean Corpuscular HGB Conc 31.4 g/dl (31.0-35.0); Mean Corpuscular Hemoglobin 26.5 pg (27.0-33.0); Mean Corpuscular Volume 84.2 fL (80.0-98.0); Mean Platelet Volume 8.7 fL (9.4-12.3); Monocytes Absolute Auto 0.7 X10*3/uL (0.1-1.2); Monocytes Percent Auto 12.5 % (2-11); Neutrophils Absolute Auto 3.1 x10*3/uL (2.0-8.3); Neutrophils Percent Auto 55.4 % (45-73); Platelet Count 288 X10*3/uL (160-400); Red Blood Count 4.38 X10*6/uL (4.20-5.50); Red Cell Distribution Width 14.5 % (11.0-16.0); White Blood Count 5.6 X10*3/uL (4.8-10.8)
[2024-10-15 10:58] LABS: Alanine Aminotransferase 16 U/L (0-31); Albumin Level 3.8 g/dL (3.5-5.0); Alkaline Phosphatase 67 U/L (39-117); Anion Gap 11 (12-20); Aspartate Amino Transferase 18 U/L (5-31); Bilirubin Total 0.2 mg/dL (0.0-1.0); Blood Urea Nitrogen 14 mg/dL (9-16); Calcium 8.7 mg/dL (8.4-10.2); Carbon Dioxide 28 mmol/L (22-29); Chloride 108 mmol/L (96-108); Creatinine Clr Calc Pharmacy 73.5; Estimated Glomerular Filt Rate > 60; Glucose Random 85 mg/dL (60-115); Sodium 143 mmol/L (135-145); Total Protein 6.2 g/dL (6.5-8.0)
[2024-10-15 11:26] LABS: Influenza A PCR NEGATIVE (Negative); Influenza B PCR NEGATIVE (Negative); Resp Syncy Virus RNA Qual PCR NEGATIVE (Negative); SARS COV2 PCR INHOUSE NEGATIVE (Negative)
--- OUTSIDE RECORDS SUMMARY | 2024-10-15 11:52 | XMS_ITS | Encounter Summary ---
Author Organization [employer] Address [address] [place] [address] Care Team Providers Care Electric Scoop Operator Name Role Phone Amelia Montalvo DO Primary Care Provider [phone] Encounter Details Date Type Department Care Team (Late st Contact Info) Description 10/12/2024 10:00 AM EDT Office Visit [facility] [address] [place] [address] Igor Stroud MD [address] [place] [address] Influenza A (Primary Dx) Social History Tobacco Use Types Packs/Day Years [...] AM EDT documented as of this encounter Last Filed Vital Signs Vital Sign Reading Time Taken Comments Blood Pressure 123/78 10/12/2024 9:58 AM EDT Pulse 113 10/12/2024 9:58 AM EDT Temperature 37 ??C (98.6 ??F) 10/12/2024 9:58 AM EDT Respiratory Rate 14 10/12/2024 9:58 AM EDT Oxygen Saturation 98% 10/12/2024 9:58 AM EDT Inhaled Oxygen Concentration - - Weight 75.6 kg (166 lb 9.6 oz) 10/12/2024 9:58 A M EDT Height 172.7 cm (5' 8 ) 10/12/2024 9:58 AM EDT Body Mass Index 25.33 10/12/2024 9:58 AM EDT documented in this encounter Progress Notes * Igor Stroud MD - 10/12/2024 10:00 AM EDT Subjective Patient ID: Maida Mitchell is a 69 y.o. female. 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 Using Albuterol HFA 2x/day, albuterol neb 2x/day , Fluticasone-Salmeterol 250-50 MCG/ACT aerosol powder, Accolate. No n/v/d. Has decreased appetite. Using ibuprofen and acetaminophen with some relief. Lives alone. Never smoked. Not employed. Patient Active Problem List Diagnosis Chronic allergic rhinitis PREET (generalized anxiety disorder) Osteoarthritis Asthma Chronic low back pain Chronic pain syndrome Chronic pelvic pain Chronic obstructive lung disease (CMS/HCC) Vitamin B12 deficiency Chronic constipation Elevated fasting glucose Chronic gastroesophageal reflux disease Hiatal hernia Chronic migraine Osteopenia Vitamin D deficiency History of COVID-19 Restless leg syndrome Fibromyalgia Degenerative disc disease, lumbar Chronic pain of left knee Generalized abdominal pain Osteoporosis Anemia Healthcare maintenance Abfraction Fracture of tooth enamel and dentin The following portions of the chart were reviewed this encounter and updated as appropriate: Tobacco Allergies Meds Problems Med Hx Surg Hx Fam Hx Review of Systems Constitutional: Positive for chills. Negative for fever. Respiratory: Positive for cough, shortness of breath and wheezing. Cardiovascular: Negative for chest pain. Gastrointestinal: Negative for abdominal pain. Musculoskeletal: Positive for myalgias. Skin: Negative for rash. Neurological: Positive for headaches. Objective Physical Exam Constitutional: Appearance: Normal appearance. HENT: Right Ear: Tympanic membrane, ear canal and external ear normal. Left Ear: Tympanic membrane, ear canal and external ear normal. Nose: Nose normal. Mouth/Throat: Mouth: Mucous membranes are moist. Pharynx: Oropharynx is clear. Eyes: Conjunctiva/sclera: Conjunctivae normal. Pupils: Pupils are equal, round, and reactive to light. Cardiovascular: Rate and Rhythm: Normal rate and regular rhythm. Heart sounds: No murmur heard. Pulmonary: Effort: Pulmonary effort is normal. Breath sounds: Normal breath sounds. Musculoskeletal: General: Normal range of motion. Cervical back: No tenderness. Skin: Findings: No rash. Neurological: Mental Status: She is alert. Gait: Gait is intact. Psychiatric: Mood and Affect: Mood normal. Behavior: Behavior normal. Procedures Assessment/Plan Diagnoses and all orders for this visit: Influenza A Positive rapid influenza A test Negative COVID test. She is outside the therapeutic window for Tamiflu. Rest, drink lots of liquids. Continue current medication. Refilled ibuprofen and acetaminophen. Prescribed prednisone. Return to clinic if not improving. - POCT Rapid Influenza A RUIZ ID NOW - POCT Rapid Influenza B RUIZ ID NOW - POCT Rapid Covid-19 BinaxNOW Other orders - predniSONE (Deltasone) 20 MG tablet; Take 2 tablets (40 mg) by mouth Once per day for 5 days. - acetaminophen (Tylenol 8 Hour) 650 MG ER tablet; Take 1 tablet (650 mg) by mouth every 8 (eight) hours if needed for mild pain. Do not crush, chew, or split. - ibuprofen 400 MG tablet; Take 1 tablet (400 mg) by mouth every 6 (six) hours if needed for moderate pain or fever for up to 30 doses. documented in this encounter Miscellaneous Notes * Patient Education Note - Igor Stroud MD - 10/12/2024 2:21 PM EDT Images from the original note were not included. Patient Education Table of Contents Gripe en los adultos (Influenza, Adult) To view videos and all your education online visit, [email or web address] or scan this QR code with your smartphone. Access to this content will in one year. Gripe en los adultos Influenza, Adult A la gripe tambi?n se la conoce lady influenza. Es ying infecci?n que afecta las v?as respiratorias.Estas incluyen la nariz, la garganta, la tr?quea y los pulmones. La gripe es contagiosa. [place] significa que se transmite f?cilmente de ying persona a otra. Causa s?ntomas que son lady un resfr?o. Tambi?n puede provocar fiebre madhuri y taylor corporales. ?Cu?les son las causas? La gripe es causada por el virus de la influenza. Puede contraerlo de las siguientes maneras: Al inhalar las gotitas que quedan en el aire despu?s de que ying persona infectada tose o estornuda. Al tocar algo que est?? contaminado con el virus y luego llevarse la mano a la boca, la nariz o losojos. ?Qu?? incrementa el riesgo? Puede ser m?s propenso a contraer gripe si: No se lava las keyona con frecuencia. Est?? cerca de muchas personas christopher la temporada de resfr?o y gripe. Se toca la boca, los ojos o la nariz sin antes lavarse las keyona. No recibe la vacuna antigripal todos los a?os. Tambi?n puede correr un mayor riesgo de tener gripe y problemas graves, lady ying infecci?n pulmonarllamada neumon?a, si: Tiene m?s de 65?a?os. Est?? embarazada. Frey sistema inmunitario est?? d?orion. Frey sistema inmunitario es el sistema de defensa de frey cuerpo. Tiene ying afecci?n a johnny plazo, o cr?ernestine, lady: ? Enfermedad pulmonar, card?alvino o renal. ? Diabetes. ? Un trastorno del h?gado. ? Asma. Tiene sobrepeso. Tiene anemia. [place] ocurre cuando no tiene suficientes gl?bulos rojos en el cuerpo. ?Cu?les son los signos o s?ntomas? Los s?ntomas de la gripe suelen aparecer de repente. Pueden durar entre 4 y 14?d?as e incluir lo siguiente: Fiebre y escalofr?os. Taylor de sim, taylor en el cuerpo o taylor musculares. Dolor de garganta. Tos. Secreci?n o congesti?n nasal. Molestias en el pecho. No querer comer tanto lady lo hace normalmente. Sensaci?n de debilidad o cansancio. Sensaci?n de mareo. N?useas o v?mitos. ?C?mo se diagnostica? La gripe puede diagnosticarse en funci?n de los s?ntomas y los antecedentes m?dicos. Tambi?n puedenhacerle un examen f?sico. Es posible que le lauryn un hisopado de la nariz o la garganta para detectar el virus. ?C?mo se trata? Si la gripe se detecta de forma temprana, puede recibir tratamiento con medicamentos antivirales. Estos se pueden administrar por boca o a kvng?s de ying v?a intravenosa (i.v.). Pueden ayudarlo a sentirse menos enfermo y a mejorar m?s r?pido. Cuidarse en frey hogar tambi?n puede ayudar a que mejoren ellis s?ntomas. El m?dico puede indicarle que: [place] medicamentos de venta dina. Tammy mucho l?quido. La gripe suele desaparecer betina. Si tiene s?ntomas muy graves o problemas provocados por la gripe, es posible que necesite recibir tratamiento en un hospital. Siga estas instrucciones en frey casa: Actividad Descanse todo lo que sea necesario. Duerma mucho. Qu?dese en frey casa y no concurra al trabajo o a la escuela, lady se lo haya indicado frey m?dico. ? Salga de frey casa solo para ir al m?dico. ? No salga de frey casa por otros motivos hasta que no haya tenido fiebre por 24?horas sin nithin medicamentos. Comida y bebida [place] ying soluci?n de rehidrataci?n oral (oral rehydration solution, ORS). Es ynig bebida que se vende en farmacias y tiendas. Tammy suficiente l?quido lady para mantener la orina de color [place] p?lido. Trate de beber quintin?as cantidades de l?quidos chrystal. Estos incluyen agua, cubitos de hielo, jugo de fruta rebajado con agua y bebidas deportivas bajas en calor?as. Trate de comer alimentos suaves que mode f?ciles de digerir. Estos incluyen bananas, compota de manzana, arroz, abeba magras, tostadas y galletas saladas. Evite las bebidas con alto contenido de az?car o cafe?na. Estas incluyen las bebidas energ?karo, las bebidas deportivas comunes y los refrescos. No tammy alcohol. No coma alimentos grasos o muy condimentados. Instrucciones generales Use los medicamentos solamente lady se lo haya indicado el m?dico. Use un humidificador de aire fr?o para que el aire de frey casa est?? m?s h?medo. [place] puede facilitar la respiraci?n. Tambi?n debe limpiar el humidificador todos los d?as. Para ello: ? Vac?e el agua. ? Vierta agua limpia. Al toser o estornudar, c?brase la boca y la nariz. L?vese las keyona frecuentemente con agua y jab?n y christopher al menos 20 segundos. Es sumamente importante que lo adrian despu?s de toser o estornudar. Si no dispone de agua y jab?n, use un desinfectantepara keyona. ?C?mo se previene? Col?quese la vacuna antigripal todos los a?os. Preg?ntele al m?dico cu?ndo debe recibir la vacuna contra la gripe. Mant?ngase alejado de las personas que est?n enfermas christopher el chavez?o y el invierno. El chavez?o y elinvierno son la temporada de los resfr?os y la gripe. Comun?quese con un m?dico si: Tiene s?ntomas nuevos. Tiene dolor en el pecho. Tiene heces l?quidas, tambi?n llamado diarrea. Tiene fiebre. La tos empeora. Empieza a tener m?s mucosidad. Tiene ganas de vomitar o vomita. Solicite ayuda de inmediato si: Le falta el aire o tiene problemas para respirar. Observa que la piel o las u?as est?n azules. Presenta un dolor intenso o rigidez en el ale. Tiene un dolor de sim repentino o tiene dolor en la harriett o el o?do. Vomita cada vez que come o ramesh. Estos s?ntomas pueden indicar ying emergencia. Llame al 911 de inmediato. No espere a bridget si los s?ntomas desaparecen. No conduzca por ellis propios medios hasta el hospital. Esta informaci?n no tiene lady fin reemplazar el consejo del m?dico. Aseg?rese de hacerle al m?dicocualquier pregunta que tenga. Document Released: 2006-04-06 Document Updated: 2023-10-06 Document Reviewed: 2023-08-06 [employer] Patient Education ? 2024 [employer]. documented in this encounter Plan of Treatment Upcoming Encounters Date Type Department Care Team (Late st Contact Info) Description 10/16/2024 9:45 AM EDT Office Visit [facility] [address] [place] [id number] Amelia Montalvo DO [address] [place] [address] 11/06/2024 10:00 AM EDT Office Visit [facility] [address] [place] [address] [phone] Cely Guy [address], [place] [phone] 12/06/2024 1:30 PM EDT Clinical Support [facility] [address] [place] [phone] Mai Bishop RN documented as of this encounter Procedures Procedure Name Priority Date/Time Associated Diagnosis Comments POCT INFLUENZA B (ID NOW RAPID MOLECULAR) Routine 10/12/2024 10:32 AM EDT Influenza A POCT INFLUENZA A (ID NOW RAPID MOLECULAR) Routine 10/12/2024 10:32 AM EDT Influenza A POCT RAPID COVID ANTIGEN Routine 10/12/2024 10:32 AM EDT Influenza A documented in this encounter Results * POCT Rapid Covid-19 BinaxNOW (10/12/2024 10:32 AM EDT) Rapid COVID Ag Negative QC Media Lot # [id number] Lot# Expiration Date [id number] Nares 10/12/2024 10:3 2 AM EDT us Igor Stroud MD POINT OF CARE TEST ENTER/EDIT OR DERABLES Final Result * POCT Rapid Influenza B RUIZ ID NOW (10/12/2024 10:32 AM EDT) Influenza B Negative Negative, Indeterminate [facility] QC Media Lot # [id number] [facility] Lot# Expiration Date 100,826 [facility] Swab 10/12/2024 10:3 2 AM EDT us Igor Stroud MD POINT OF CARE TEST ENTER/EDIT OR DERABLES Final Result [facility] [address] [place] [phone] * (ABNORMAL) POCT Rapid Influenza A RUIZ ID NOW (10/12/2024 10:32 AM EDT) Influenza A Positive( A) Negative, Indeterminate [facility] QC Media Lot # [id number] [facility] Lot# Expiration Date 100,826 [facility] Swab 10/12/2024 10:3 2 AM EDT us Igor Stroud MD POINT OF CARE TEST ENTER/EDIT OR DERABLES Final Result [facility] [address] [place] [address] [phone] documented in this encounter Visit Diagnoses Diagnosis Influenza A- Primary Influenza with other respiratory manifestations documented in this encounter Additional Health Concerns Assessment Noted Time PHQ-9 Depression Total Score: 18 024 2:12 PM EDT documented as of this encounter Care Teams Electric Scoop Operator Relationship Specialty Start Date End Date Amelia Montalvo DO [address] [place] [address] PCP - General Family Medicine 06/23/12 documented as of this encounter
--- OUTSIDE RECORDS SUMMARY | 2024-10-15 11:52 | XMS_ITS | Clinical Summary ---
Author Organization [employer] Address [address] [place] [address] 7t [place] [address] Care Team Providers Care Bottling Line Operator Name Role Phone Amelia Montalvo DO Primary Care Provider + [phone] Allergies Active Allergy Reactions Criticality Noted Date [...] un cuido medico. 1 each 023 Active Bisacodyl EC 5 MG EC [...] by mouth at bedtime. 30 tablet 11 023 Active albuterol (Ventolin HFA) 108 (90 Base) MCG/ACT inhalerIndication s:Mild intermittent asthma with acute exacerbation INHALE 2 PUFFS BY MOUTH EVERY 4 HOURS NEEDED FOR WHEEZING OR SHORTNESS OF BREATH 18 g 1 Active cholecalciferol (Vitamin D-3) 50 MCG (2000 UT) tablet TAKE 1 TABLET BY MOUTH EVERY MORNING 90 tablet 3 Active cyanocobalamin (Vitamin B-12) 1000 MCG tabletIndications :Vitamin B12 deficiency TAKE 1 TABLET BY MOUTH EVERY MORNING 90 tablet 3 Active omeprazole (PriLOSEC) [address] capsule Take 1 capsule (20 mg) by mouth before breakfast and before evening meal. Do not crush or chew. 60 capsule 11 2024 Active Calcium Citrate-Vitamin D (Citracal Petites/Vitamin D) 200-6.25 MG-MCG tablet Take 2 tablets by mouth 2 times daily. 120 tablet 11 Active ondansetron ODT (Zofran-ODT) 4 MG disintegrating tablet Take 1 tablet by mouth if needed each day for nausea. Active SUMAtriptan (Imitrex) 50 MG tablet Take 1 tablet by mouth if needed each day for migraine. Active Diclofenac Sodium 1 % gel Apply 2 g topically if needed in the morning, at noon, in the evening, and at bedtime (pain). 150 g 3 Active baclofen (Lioresal) 10 MG tablet TAKE [...] IN THE EVENING 60 tablet 3 Active albuterol (2.5 MG/3ML) 0.083% nebulizer solution INHALE 1 AMPULE USING A NEBULIZER EVERY 8 HOURS 90 mL 1 Active predniSONE (Deltasone) 20 MG tablet Take 2 tablets (40 mg) by mouth Once per day for 5 days. 10 tablet 025 2024 Active acetaminophen (Tylenol 8 Hour) 650 MG ER tablet Take 1 tablet (650 mg) by mouth every 8 (eight) hours if needed for mild pain. Do not crush, chew, or split. 60 tablet 3 Active ibuprofen 400 MG tablet Take 1 tablet (400 mg) by mouth every 6 (six) hours if needed for moderate pain or fever for up to 30 doses. 30 tablet Active ibuprofen 400 MG tablet Take 1 tablet (400 mg) by mouth every 6 (six) hours if needed for moderate pain or fever for up to 30 doses. 30 tablet 023 2024 Discontinued(R eorder (will not trigger notification to Pharmacy)) acetaminophen (Tylenol 8 Hour) 650 MG ER tablet Take 1 tablet (650 mg) by mouth every 8 (eight) hours if needed for mild pain. Do not crush, chew, or split. 60 tablet 3 024 2024 Discontinued(R eorder (will not trigger notification to Pharmacy)) zafirlukast (Accolate) 20 MG tablet TAKE 1 TABLET BY MOUTH TWICE DAILY IN THE MORNING AND IN THE EVENING AFTER MEALS 180 tablet 1 024 2024 Discontinued loratadine (Claritin) 10 MG tablet TAKE 1 TABLET BY MOUTH EVERY MORNING 90 tablet 1 024 2024 Discontinued albuterol (2.5 MG/3ML) 0.083% nebulizer solution INHALE 1 AMPULE USING A NEBULIZER EVERY 8 HOURS 90 mL 1 024 2024 Discontinued divalproex (Depakote ER) [...] and flonase daily -cont accolate daily -review metal forger's assistant next visit PREET (generalized anxiety disorder) 07/25/2012 [...] from body habitus and lead placement; normal KS and corrected QT. Referred for stress test and TTE. Per pt to be performed tests this month. -In current evaluation by stem dryer maintainer for Atypical chest pain but difficult to [...] Encounters Date Type Department Care Team Description 10/15/2024 8:40 AM EDT Office Visit [facility] [address] [address] Igor Stroud MD Influenza A (Primary Dx); Moderate persistent asthma with acute exacerbation 10/15/2024 Orders Only [facility] External Provider, [facility] 10/15/2024 Travel 10/12/2024 10:00 AM EDT Office Visit [facility] [address] [address] Igor Stroud MD Influenza A (Primary Dx) 10/06/2024 Refill [facility] [address] [place] [address] Amelia Montalvo, 10/03/2024 Telephone [facility] [address] [place] [address] Amelia Montalvo, 10/03/2024 Refill [facility] [address] [place] [address] Amelia Montalvo, Chronic migraine without aura without status migrainosus, not intractable 10/01/2024 Refill [facility] [address] [place] [address] Amelia Montalvo, Other specified anxiety disorders 09/16/2024 Refill [facility] [address] [place] [address] Amelia Montalvo, 08/28/2024 Telephone [facility] [address] [place] [address] Amelia Montalvo, Recall Appt. 08/28/2024 Travel 08/21/2024 Refill [facility] [address] [place] [address] Amelia Montalvo, Other specified anxiety disorders 07/26/2024 Refill [facility] [address] [place] [address] Amelia Montalvo, 07/23/2024 1:00 PM EST Clinical Support [facility] [address] [place] [address] Mai Bishop, RN Anxiety (Primary Dx) 07/23/2024 Refill [facility] [address] [place] [address] Mai Bishop, RN Other specified anxiety disorders 07/23/2024 Travel 07/23/2024 Refill [facility] [address] [place] [address] Amelia Montalvo, Other specified anxiety disorders 07/23/[address] [address] Mai Bishop, RN Recommend RELAYS DRAFTSPERSON Tier 2 from Last 3 Months Immunizations [...] the past 12 months, has t he [employer], gas, oil or water company threatened to [...] Sign Reading Time Taken Comments Blood Pressure 143/81 10/15/2024 8:39 AM EDT Pulse 91 10/15/2024 8:50 AM EDT Temperature 36.6 ??C (97.9 ??F) 10/15/2024 8:39 AM ED T Respiratory Rate 20 10/15/2024 8:39 AM EDT Oxygen Saturation 95% 10/15/2024 8:50 AM EDT Inhaled Oxygen Concentration - - Weight 77.9 kg (171 lb 12.8 oz) 10/15/2024 8:39 AM EDT Height 172.7 cm (5' 8 ) 10/12/2024 9:58 AM EDT Body Mass Index 26.12 10/12/2024 9:58 AM EDT Plan of Treatment Upcoming Encounters Date Type Department Care Team (Late st Contact Info) Description 10/16/2024 9:45 AM EDT Office Visit [facility] [address] [place] [address] Amelia Montalvo DO [address] [place] [address] 11/06/2024 10:00 AM EDT Office Visit [facility] [address] [place] [address] Brooks, Cely [address] [place] [address] 12/06/2024 1:30 PM EDT Clinical Support [facility] [address] [place] [address] Mai Bishop, RN Health Maintenance Due Date [...] Full Mouth 03/30/2025 03/29/2022, 12/09 Tobacco Screening 10/15/2025 10/15/2024 Colonoscopy 05/31/2029 05/31/2019 Colorectal Cancer Screening 05/31/2029 [...] Procedure Name Priority Date/Time Associated Diagnosis Comments COMPREHENSIVE METABOLIC PANEL Routine 10/15/2024 10:36 AM EDT SARS COV2/INFLUENZA A/B AND RSV RNA QL NAAT Routine 10/15/2024 10:36 AM EDT CBC WITH AUTO DIFFERENTIAL Routine 10/15/2024 10:35 AM EDT XR CHEST 2 VIEWS Routine 10/15/2024 9:35 AM EDT POCT RAPID COVID ANTIGEN Routine 10/12/2024 10:32 AM EDT Influenza A POCT INFLUENZA B (ID NOW RAPID MOLECULAR) Routine 10/12/2024 10:32 AM EDT Influenza A POCT INFLUENZA A (ID NOW RAPID MOLECULAR) Routine 10/12/2024 10:32 AM EDT Influenza A POCT OSMIN-14 URINE DRUG SCREEN Routine 07/23/2024 1:47 PM EST Anxiety PROPHYLAXIS - ADULT Routine 05/07/2024 9 :00 AM EDT BITEWINGS - 4 RADIOGRAPHIC IMAGES Routine 02/23/2024 8:00 AM EDT PERIODIC ORAL EVALUATION - ESTABLISHED PATIENT Routine 02/23/2024 8:00 AM EDT INTRAORAL - COMPLETE SERIES OF RADIOGRAPHIC IMAGES Routine 03/29/2022 12:00 AM EDT JONES HISTORICAL HEPATITIS C AB W/REFL TO HCV RNA, QN, PCR Routine 01/06/2021 8:12 AM EDT HM COLONOSCOPY Routine 05/31/2019 10:01 AM EST from Last 3 Months or Most Recently Relevant to Health Maintenance Results * SARS-CoV-2 RNA, Influenza A/B, and RSV RNA, Ql NAAT (10/15/2024 10:36 AM EDT) Pathologist [facility] Influenza A PCR NEGATIVE Negative [facility] Influenza B PCR NEGATIVE Negative [facility] Resp Syncy Virus RNA Qual PCR NEGATIVE Negative [facility] SARS COV2 PCR NEGATIVE Negative [facility] Comment:All test results mus t be correlated with clinical findings.Negative results do not preclude SARS-CoV2, influenza Avirus, influenza B virus and/or RSV infectionand should not be used as the sole basis for treatment orother patient management decisions. Negative results must becombined with clinical observations, patient history, andepidemiological information.This test has not been evaluated for monitoring treatment ofinfection.This test has been authorized by the FDA under an EmergencyUse Authorization (EUA) for use by authorized laboratories.Testing performed on the [employer] GeneXpert utilizingreal-time RT-PCR.All SARS CoV2 and positive influenza A/B results arereported to [facility]. 10/15/2024 10:3 6 AM EDT 10/15/2024 10:41 AM EDT us Generic External Data Provider LAB MICROBIOLOGY - GENERAL ORDERABLES Final Result [facility] [address] [place] [address] [phone] * (ABNORMAL) Comprehensive Metabolic Panel (10/15/2024 10:36 AM EDT) Sodium 143 135 - 145 mmol/L [facility] Potassium 4.0 3.3 - 5.1 mmol/L [facility] Chloride 108 96 - 108 mmol/L [facility] Carbon Dioxide 28 22 - 29 mmol/L [facility] Anion Gap 11(L) 12 - 20 [facility] Urea Nitrogen (BUN) 14 9 - 16 mg/dL [facility] Creatinine, Serum 0.77 0.5 - 1.4 mg/dL [facility] Creatinine Clr Calc Pharmacy 73.5 [facility] Comment:Provided height and weight: 172.72 cm,78.018 kg.eGFR (calculated from the MDRD study equation) and eCrCl(calculated from the Cockcroft-Gault equation) are based ondifferent parameters and may not yield comparable results.If eCrCl result is absurd, please check patient'sheight/weight. Estimated Glomerular Filt Rate >60 [facility] Comment:Chronic Kidney Disea se: Estimated GFR < 60 mL/min/1.40s1Eakkge Kidney Disease: Estimated GFR < 15 mL/min/1.73m2 Glucose 85 60 - 115 mg/dL [facility] Calcium 8.7 8.4 - 10.2 mg/dL [facility] Bilirubin, Total 0.2 0.0 - 1.0 mg/dL [facility] Aspartate Amino Transferase 18 5 - 31 U/L [facility] Alanine Aminotransferase 16 0 - 31 U/L [facility] Total Protein 6.2(L) 6.5 - 8.0 g/dL [facility] Albumin Level 3.8 3.5 - 5.0 g/dL [facility] Alkaline Phosphatase 67 39 - 117 U/L [facility] 10/15/2024 10:3 6 AM EDT 10/15/2024 10:41 AM EDT us Generic External Data Provider LAB BLOOD ORDERAB LES Final Result [facility] [address] [place] [phone] * (ABNORMAL) CBC auto differential (10/15/2024 10:35 AM EDT) White Blood Count 5.6 4.8 - 10.8 X10*3/uL [facility] Red Blood Count 4.38 4.20 - 5.50 X10*6/uL [facility] Hemoglobin 11.6(L) 12.0 - 16.0 g/dl [facility] Hematocrit 36.9(L) 37.0 - 47.0 % [facility] Mean Corpuscular Volume 84.2 80.0 - 98.0 fL [facility] Mean Corpuscular Hemoglobin 26.5(L) 27.0 - 33.0 pg [facility] Mean Corpuscular HGB Conc 31.4 31.0 - 35.0 g/dl [facility] Red Cell Distribution Width 14.5 11.0 - 16.0 % [facility] Platelet Count 288 160 - 400 X10*3/uL [facility] Mean Platelet Volume 8.7(L) 9.4 - 12.3 fL [facility] Neutrophils Percent Auto 55.4 45 - 73 % [facility] Imm Gran Pct Auto 0.2 0.0 - 0.4 % [facility] Lymphocytes Percent Auto 31.5 20 - 40 % [facility] Monocytes Percent Auto 12.5(H) 2 - 11 % [facility] Eosinophils Percent Auto 0.2 0 - 4 % [facility] Basophils Percent Auto 0.2 0 - 2 % [facility] NRBC Pct Auto 0.0 0.0 - 0.2 /100WBC [facility] Neutrophils Absolute Auto 3.1 2.0 - 8.3 x10*3/uL [facility] Imm Gran Abs Auto 0.01 0.00 - 0.03 X10*3/uL [facility] Lymphocytes Absolute Auto 1.8 1.2 - 4.9 X10*3/uL [facility] Monocytes Absolute Auto 0.7 0.1 - 1.2 X10*3/uL [facility] Eosinophils Absolute Auto 0.0 0.0 - 0.4 X10*3/uL [facility] Basophils Absolute Auto 0.0 0.0 - 0.2 X10*3/uL [facility] NRBC Abs Auto 0.000 0.0 - 0.012 X10*3/uL [facility] 10/15/2024 10:3 5 AM EDT 10/15/2024 10:41 AM EDT us Generic External Data Provider LAB BLOOD ORDERAB LES Final Result [facility] [address] [place] [phone] [phone] * XR Chest 2 Views (10/15/2024 9:35 AM EDT) Anatomical Region Laterality Modality Chest Radiographic Veronica ging 10/15/2024 9:35 AM EDT Narrative 10/15/2024 10:16 AM EDT ? [facility] ?[address] ?[place] [address] ?XRay Report ? Signed ? Patient: Maida Mitchell I ?MR#: [id number] ?? 71 ? : 1955 ?Acct:[id number] ? Age/Sex: 69 / F ?ADM Date: 10/15/24 ? Loc: HO.ED ? Attending Dr: ? Ordering Physician: Ashley Rodriguez DO ?? Date of Service: 10/15/24 ?? Procedure(s): XR chest 2V ?? Accession Number(s): [id number] ? cc: Ashley Rodriguez DO; Amelia Montalvo DO ? EXAMINATION: ?? XR CHEST ? CLINICAL INFORMATION: ?? cough, sob ? COMPARISON: ?? April 06, 2024. ? TECHNIQUE: ?? 2 views of the chest were obtained. ? FINDINGS: ?? Hyperinflated lungs. Bilateral apical lung scarring. No consolidation, ?? pleural effusion or pneumothorax. ?? Cardiomediastinal silhouette size is normal. Tortuosity thoracic aorta. ?? Multilevel thoracic spondylosis. ? XR/XR chest 2V ?? IMPRESSION: ?? No acute airspace disease. ?? Consider COPD emphysematous type changes. ? Electronically signed by: ??Ranjeet Mckenzie MD ??10/15/2024 10:13 AM ?? EDT RP ? Dictated By: ?Ranjeet Noriega MD ? Signed By: ?<Electronically signed by Ranjeet Mederos MD in OV> ? 10/15/24 1013 ? DD/ 0935 ? TD/TT: 10/15/24 1007 ? Sleeve Bottom Feller: ? Procedure Note Dontraciter, Image - 10/15/[address] [address] XRay Report Signed Patient: Maida Mitchell IMR#: [id number] [birth year] : 1955cct:[id number] Age/Sex: 69 / FADM Date: 10/15/24 Loc: HO.ED Attending Dr: Ordering Physician: Ashley Rodriguez DO Date of Service: 10/15/24 Procedure(s): XR chest 2V Accession Number(s): [id number] cc: Ashley Rodriguez DO; Amelia Montalvo DO EXAMINATION: XR CHEST CLINICAL INFORMATION: cough, sob COMPARISON: April 06, 2024. TECHNIQUE: 2 views of the chest were obtained. FINDINGS: Hyperinflated lungs. Bilateral apical lung scarring. No consolidation, pleural effusion or pneumothorax. Cardiomediastinal silhouette size is normal. Tortuosity thoracic aorta. Multilevel thoracic spondylosis. XR/XR chest 2V IMPRESSION: No acute airspace disease. Consider COPD emphysematous type changes. Electronically signed by: Ranjeet Mckenzie MD 10/15/2024 10:13 AM EDT RP Dictated By: Ranjeet Noriega MD Signed By: <Electronically signed by Ranjeet Mederos MDin OV> 10/15/24 1013 DD/ 0935 TD/TT: 10/15/24 1007 Sleeve Bottom Feller: [facility] External Provider IMG XR PROCEDURES Final Result * POCT Rapid Influenza B RUIZ ID NOW (10/12/2024 10:32 AM EDT) Influenza B Negative Negative, Indeterminate [facility] QC Media Lot # [id number] [facility] Lot# Expiration Date [id number] [facility] Swab 10/12/2024 10:3 2 AM EDT us Igor Stroud MD POINT OF CARE TEST ENTER/EDIT OR DERABLES Final Result Performing Organization Address City/[facility]/ZIP Co de Phone Number [facility] [address] [place] [phone] * (ABNORMAL) POCT Rapid Influenza A RUIZ ID NOW (10/12/2024 10:32 AM EDT) Pathologist [facility] Influenza A Positive( A) Negative, Indeterminate [facility] QC Media Lot # [id number] [facility] Lot# Expiration Date 100,826 [facility] Swab 10/12/2024 10:3 2 AM EDT us Igor Stroud MD POINT OF CARE TEST ENTER/EDIT OR DERABLES Final Result Performing Organization Address [facility]/ZIP Co de Phone Number [facility] [address] [place] [phone] * POCT Rapid Covid-19 BinaxNOW (10/12/2024 10:32 AM EDT) Rapid COVID Ag Negative QC Media Lot # [id number] Lot# Expiration Date [id number] Nares 10/12/2024 10:3 2 AM EDT us Igor Stroud MD POINT OF CARE TEST ENTER/EDIT OR DERABLES Final Result * POCT OSMIN-14 Urine Drug Screen (07/23/2024 1:47 PM EST) Pathologist [facility] Benzodiazepines Screen, Urine Positive Urine Urine specimen obtained by clean catch procedure / Unknown 07/23/2024 1:47 PM EST Narrative Mai Bishop RN - 07/23/2024 1:47 PM EST [employer] cup Lot#[id number] Exp. 04/04/26 Internal Pass Control Amelia Montalvo DO POINT OF CARE TEST ENTER/MAKAYLA T ORDERABLES Final Result * HEPATITIS C AB W/REFL TO HCV RNA, QN, PCR (01/06/2021 8:12 AM EDT) HEPATITIS C ANTIBODY NON-REACT JULIOCESAR NON-REACT JULIOCESAR [facility] INDEX 0.01 <1.00 [facility] Comment: ?? HCV antibody was non-reactive. There is no laboratory ?? evidence of HCV infection. ?? In most cases, no further action is required. However, if recent HCV exposure is suspected, a test for HCV RNA (test code 35035) is suggested. ?? For additional information please refer to http://education.Instacover/faq/YRX01o4 (This link is being provided for informational/ educational purposes only.) ?? 01/06/2021 8:12 AM EDT Amelia Montalvo DO HISTORICAL/NON ORDERABLE LAB S Final Result [facility] [address] * Hm Colonoscopy (05/31/2019 10:01 AM EST) Historical Provider HEALTH MAINTENANCE Final Result from Last 3 Months or Most Recently Relevant to Health Maintenance Insurance [facility] Care Teams Bottling Line Operator Relationship Specialty Start Date End Date Amelia Montalvo DO [address] [place] [phone] PCP - General Family Medicine 06/23/12
--- OUTSIDE RECORDS SUMMARY | 2024-10-15 11:52 | XMS_ITS | Encounter Summary ---
Author Organization [employer] Address [address] [facility] [address]t [place] [address] Care Team Providers Care Marine Engineering Professor Name Role Phone Amelia Montalvo DO Primary Care Provider + [phone] Reason for Visit * Reason Comments Med Refill Encounter Details Date Type Department Care Team ([facility] st Contact Info) Description 03/14/2024 Refill [facility] [address] [place] [address] Amelia Montalvo DO [address] [place] [address] Other specified anxiety disorders Social History Tobacco [...] Description 10/16/2024 9:45 AM EDT Office Visit [facility] [address] [place] [phone] Amelia Montalvo DO [address] [place] [address] 11/06/2024 10:00 AM EDT Office Visit [facility] [address] [place] [address] Cely Guy [address] [place] [address] 12/06/2024 1:30 PM EDT Clinical Support [facility] [address] [place] [phone] Mai Bishop RN documented as of this encounter Visit Diagnoses Diagnosis Other specified anxiety disorders documented in this encounter Additional Health Concerns Assessment Noted Time PHQ-9 Depression Total Score: 18 024 2:12 PM EDT documented as of this encounter Care Teams Marine Engineering Professor Relationship Specialty Start Date End Date Amelia Montalvo DO [address] [place] [phone] PCP - General Family Medicine 06/23/12 documented as of this encounter
--- OUTSIDE RECORDS SUMMARY | 2024-10-15 11:52 | XMS_ITS | Encounter Summary ---
Author Organization [employer] Address [address] [facility] 7t [place] [address] Care Team Providers Care Industrial Arts Teacher Name Role Phone Amelia Montalvo DO Primary Care Provider + [phone] Reason for Visit * Reason Comments Med Refill Encounter Details Date Type Department Care Team ([facility] st Contact Info) Description 11/07/2023 Refill [facility] [address] [place] [address] Amelia Montalvo DO [address] [place] [address] Other specified anxiety disorders Social History Tobacco [...] Description 10/16/2024 9:45 AM EDT Office Visit [facility] [address] [place] [address] Amelia Montalvo DO [address] [place] [address] 11/06/2024 10:00 AM EDT Office Visit [facility] [address] [place] [address] Cely Guy [address] [place] [address] 12/06/2024 1:30 PM EDT Clinical Support [facility] [address] [place] [address] Mai Bishop, JAMAAL documented as of this encounter Visit Diagnoses Diagnosis Other specified anxiety disorders documented in this encounter Care Teams Industrial Arts Teacher Relationship Specialty Start Date End Date Amelia Montalvo DO [address] [place] [phone] PCP - General Family Medicine 06/23/12 documented as of this encounter
--- OUTSIDE RECORDS SUMMARY | 2024-10-15 11:52 | XMS_ITS | Encounter Summary ---
Author Organization [employer] [facility] Address [address] [facility] [address] [place] [address] Care Team Providers Care Call Center Associate Name Role Phone Amelia Montalvo DO Primary Care Provider + [phone] Encounter Details Date Type Department Care Team (Latest Contact Info) Description 01/15/2021 Abstract [facility] CONVERSIONS Dental, Provider, DDS Social History [...] 10/16/2024 9:45 AM EDT Office Visit [facility] [address] [place] [phone] Amelia Montalvo DO [address] [place] [address] 11/06/2024 10:00 AM EDT Office Visit [facility] [address] [place] [phone] Cely Guy [address] [place] [address] 12/06/2024 1:30 PM EDT Clinical Support [facility] [address] [place] [phone] Mai Bishop RN documented as of this encounter Visit Diagnoses Not on filedocumented in this encounter Care Teams Call Center Associate Relationship Specialty Start Date End Date Amelia Montalvo DO [address] [place] [phone] PCP - General Family Medicine 06/23/12 documented as of this encounter
--- OUTSIDE RECORDS SUMMARY | 2024-10-15 11:52 | XMS_ITS | Encounter Summary ---
Author Organization [employer] Address [address] [facility] [address] [place] [address] Care Team Providers Care Flame Annealing Machine Operator Name Role Phone Amelia Montalvo DO Primary Care Provider [phone] Encounter Details Date Type Department Care Team (Late st Contact Info) Description 10/15/2024 Orders Only [facility] External Provider, [facility] Social History Tobacco Use Types Packs/Day Years [...] Description 10/16/2024 9:45 AM EDT Office Visit [facility] [address] [place] [address] Amelia Montalvo DO [address] [place] [address] 11/06/2024 10:00 AM EDT Office Visit [facility] ADULT DENTAL [address] [place] [address] Cely Guy [address] [place] [address] 12/06/2024 1:30 PM EDT Clinical Support [facility] [address] [place] [address] Mai Bishop RN documented as of this encounter Procedures Procedure Name Priority Date/Time Associated Diagnosis Comments SARS COV2/INFLUENZA A/B AND RSV RNA QL NAAT Routine 10/15/2024 10:36 AM EDT COMPREHENSIVE METABOLIC PANEL Routine 10/15/2024 10:36 AM EDT CBC WITH AUTO DIFFERENTIAL Routine 10/15/2024 10:35 AM EDT XR CHEST 2 VIEWS Routine 10/15/2024 9:35 AM EDT documented in this encounter Results * SARS-CoV-2 RNA, Influenza A/B, and RSV RNA, Ql NAAT (10/15/2024 10:36 AM EDT) Influenza A PCR NEGATIVE Negative [facility] Influenza B PCR NEGATIVE Negative [facility] Resp Syncy Virus RNA Qual PCR NEGATIVE Negative [facility] SARS COV2 PCR NEGATIVE Negative [facility] Comment:All test results mus t [...] use by authorized laboratories.Testing performed on the [employer] GeneXpert utilizingreal-time RT-PCR.All SARS CoV2 and positive influenza A/B results arereported to [facility]. 10/15/2024 10:3 6 AM EDT 10/15/2024 10:41 AM EDT Generic External Data Provider LAB MICROBIOLOGY - GENERAL ORDERABLES Final Result [facility] [address] [place] [address] [phone] * (ABNORMAL) Comprehensive Metabolic Panel (10/15/2024 10:36 AM EDT) Sodium 143 135 - 145 mmol/L [facility] Potassium 4.0 3.3 - 5.1 mmol/L [facility] Chloride 108 96 - 108 mmol/L [facility] Carbon Dioxide 28 22 - 29 mmol/L [facility] Anion Gap 11(L) 12 - 20 [facility] Urea Nitrogen (BUN) 14 9 - 16 mg/dL [facility] Creatinine, Serum 0.77 0.5 - 1.4 mg/dL [facility] Creatinine Clr Calc Pharmacy 73.5 [facility] Comment:Provided height and weight: 172.72 cm,78.018 kg.eGFR (calculated from the MDRD study equation) and eCrCl(calculated from the Cockcroft-Gault equation) are based ondifferent parameters and may not yield comparable results.If eCrCl result is absurd, please check patient'sheight/weight. Estimated Glomerular Filt Rate >60 [facility] Comment:Chronic Kidney Disea se: Estimated GFR < 60 mL/min/1.08e2Laixml Kidney Disease: Estimated GFR < 15 mL/min/1.73m2 Glucose 85 60 - 115 mg/dL [facility] Calcium 8.7 8.4 - 10.2 mg/dL [facility] Bilirubin, Total 0.2 0.0 - 1.0 mg/dL [facility] Aspartate Amino Transferase 18 5 - 31 U/L [facility] Alanine Aminotransferase 16 0 - 31 U/L [facility] Total Protein 6.2(L) 6.5 - 8.0 g/dL [facility] Albumin Level 3.8 3.5 - 5.0 g/dL [facility] Alkaline Phosphatase 67 39 - 117 U/L [facility] 10/15/2024 10:3 6 AM EDT 10/15/2024 10:41 AM EDT us Generic External Data Provider LAB BLOOD ORDERAB LES Final Result [facility] [address] [place] [phone] * (ABNORMAL) CBC auto differential (10/15/2024 10:35 AM EDT) White Blood Count 5.6 4.8 - 10.8 X10*3/uL [facility] Red Blood Count 4.38 4.20 - 5.50 X10*6/uL [facility] Hemoglobin 11.6(L) 12.0 - 16.0 g/dl [facility] Hematocrit 36.9(L) 37.0 - 47.0 % [facility] Mean Corpuscular Volume 84.2 80.0 - 98.0 fL [facility] Mean Corpuscular Hemoglobin 26.5(L) 27.0 - 33.0 pg [facility] Mean Corpuscular HGB Conc 31.4 31.0 - 35.0 g/dl [facility] Red Cell Distribution Width 14.5 11.0 - 16.0 % [facility] Platelet Count 288 160 - 400 X10*3/uL [facility] Mean Platelet Volume 8.7(L) 9.4 - 12.3 fL [facility] Neutrophils Percent Auto 55.4 45 - 73 % [facility] Imm Gran Pct Auto 0.2 0.0 - 0.4 % [facility] Lymphocytes Percent Auto 31.5 20 - 40 % [facility] Monocytes Percent Auto 12.5(H) 2 - 11 % [facility] Eosinophils Percent Auto 0.2 0 - 4 % [facility] Basophils Percent Auto 0.2 0 - 2 % [facility] NRBC Pct Auto 0.0 0.0 - 0.2 /100WBC [facility] Neutrophils Absolute Auto 3.1 2.0 - 8.3 x10*3/uL [facility] Imm Gran Abs Auto 0.01 0.00 - 0.03 X10*3/uL [facility] Lymphocytes Absolute Auto 1.8 1.2 - 4.9 X10*3/uL [facility] Monocytes Absolute Auto 0.7 0.1 - 1.2 X10*3/uL [facility] Eosinophils Absolute Auto 0.0 0.0 - 0.4 X10*3/uL [facility] Basophils Absolute Auto 0.0 0.0 - 0.2 X10*3/uL [facility] NRBC Abs Auto 0.000 0.0 - 0.012 X10*3/uL [facility] 10/15/2024 10:3 5 AM EDT 10/15/2024 10:41 AM EDT us Generic External Data Provider LAB BLOOD ORDERAB LES Final Result [facility] [address] [place] [phone] * XR Chest 2 Views (10/15/2024 9:35 AM EDT) Anatomical Region Laterality Modality Chest Radiographic Veronica ging 10/15/2024 9:35 AM EDT Narrative 10/15/2024 10:16 AM EDT ? [facility] ?[address] ?[place] [address] ?XRay Report ? Signed ? Patient: Maida Mitchell I ?MR#: [id number] ?? 71 ? : 1955 ?Acct:[id number] ? Age/Sex: 69 / F ?ADM Date: 10/15/24 ? Loc: HO.ED ? Attending Dr: ? Ordering Physician: Ashley Rodriguez DO ?? Date of Service: 10/15/24 ?? Procedure(s): XR chest 2V ?? Accession Number(s): [id number] ? cc: Ashley Rodriguez DO; Amelia Montalvo [...] Mckenzie MD ??10/15/2024 10:13 AM ?? EDT ? Dictated By: ?Ranjeet Noriega MD ? Signed By: ?<Electronically signed by Ranjeet Mederos MD in OV> ? 10/15/24 1013 ? DD/ 0935 ? TD/TT: 10/15/24 1007 ? Fuel Cell Systems Engineer: ? Procedure Note Michael Davila - 10/15/[address] [address] XRay Report Signed Patient: Maida Mitchell [facility]#: [id number] 71 : 3Acct:[id number] Age/Sex: 69 / FADM Date: 10/15/24 Loc: HO.ED Attending Dr: Ordering Physician: Ashley Rodriguez DO Date of Service: 10/15/24 Procedure(s): XR chest 2V Accession Number(s): [id number] cc: Ashley Rodriguez DO; Amelia Montalvo DO [...] 10/15/24 1013 DD/ 0935 TD/TT: 10/15/24 1007 Fuel Cell Systems Engineer: [facility] External Provider IMG XR PROCEDURES Final Result documented in this encounter Visit Diagnoses Not on filedocumented in this encounter Additional Health Concerns Assessment Noted Time PHQ-9 Depression Total Score: 18 024 2:12 PM EDT documented as of this encounter Care Teams Flame Annealing Machine Operator Relationship Specialty Start Date End Date Amelia Montalvo DO [address] [place] [address] PCP - General Family Medicine 06/23/12 documented as of this encounter
--- OUTSIDE RECORDS SUMMARY | 2024-10-15 11:52 | XMS_ITS | Encounter Summary ---
Author Organization [facility] Address [address] [facility] [address] [place] [address] Care Team Providers Care Summer Internship Name Role Phone Amelia Montalvo DO Primary Care Provider [phone] Reason for Visit * Reason Onset Date Comments Pre-op clearance notes 08/26/2023 Encounter Details Date Type Department Care Team (Late st Contact Info) Description 08/26/2023 Telephone [facility] [address] [place] [address] Amelia Montalvo DO [address] [place] [address] Pre-op clearance notes Social History Tobacco Use [...] 08/15 and it can be faxed to [phone] documented in this encounter Plan of Treatment Upcoming Encounters Date Type Department Care Team (Late st Contact Info) Description 10/16/2024 9:45 AM EDT Office Visit [facility] MED[facility]INE [address] [place] [address] Amelia Montalvo DO [address] [place] [address] 11/06/2024 10:00 AM EDT Office Visit [facility] ADULT DENTAL [address] [place] [address] Cely Guy [address] [place] [address] 12/06/2024 1:30 PM EDT Clinical Support [facility] MED[facility] [address] [place], [place] [phone] Mai Bishop, JAMAAL documented as of this encounter Visit Diagnoses Not on filedocumented in this encounter Care Teams Summer Internship Relationship Specialty Start Date End Date Amelia Montalvo DO [address] [place] [phone] PCP - General Family Medicine 06/23/12 documented as of this encounter
--- OUTSIDE RECORDS SUMMARY | 2024-10-15 11:52 | XMS_ITS | Encounter Summary ---
Author Organization [employer] [facility] Address [address] [facility] [address] [place] [address] Care Team Providers Care License Issuer Name Role Phone Amelia Montalvo DO Primary Care Provider [phone] Encounter Details Date Type Department Care Team (Late Contact Info) Description 10/21/2023 Orders Only [facility] [address] [place] [address] Provider, MD Santos Social History Tobacco Use [...] Description 10/16/2024 9:45 AM EDT Office Visit [facility] [address] [place] [address] Amelia Montalvo DO [address] [place] [address] 11/06/2024 10:00 AM EDT Office Visit [facility] ADULT DENTAL [address] [place] [address] Cely Guy [address] [place] [address] 12/06/2024 1:30 PM EDT Clinical Support [facility] [address] [place] [address] Mai Bishop RN documented as of this encounter Procedures Procedure Name Priority Date/Time Associated Diagnosis Comments COLONOSCOPY Routine 05/31/2019 10:01 AM EST documented in this encounter Results * Hm Colonoscopy (05/31/2019 10:01 AM EST) us Historical Provider HEALTH MAINTENANCE Final Result documented in this encounter Visit Diagnoses Not on filedocumented in this encounter Care Teams License Issuer Relationship Specialty Start Date End Date Amelia Montalvo DO [address] [place] [address] PCP - General Family Medicine 06/23/12 documented as of this encounter
--- OUTSIDE RECORDS SUMMARY | 2024-10-15 11:52 | XMS_ITS | Encounter Summary ---
Author Organization [employer] Address [address] [facility] [address] [place] [address] Care Team Providers Care Signal Technician Name Role Phone Amelia Montalvo DO Primary Care Provider [phone] Reason for Visit * Reason Comments Med Refill Encounter Details Date Type Department Care Team (Late st Contact Info) Description 10/25/2023 Refill [facility] [address] [place] [address] Iram Ascencio FNP Social History Tobacco Use [...] 10/16/2024 9:45 AM EDT Office Visit [facility] MED[facility] [address] [place] [address] Amelia Montalvo DO [address] [place] [address] 11/06/2024 10:00 AM EDT Office Visit [facility] ADULT DENTAL [address] [place] [address] Cely Guy [address] [place] [address] 12/06/2024 1:30 PM EDT Clinical Support [facility] [address] [place] [address] Mai Bishop, JAMAAL documented as of this encounter Visit Diagnoses Not on filedocumented in this encounter Care Teams Signal Technician Relationship Specialty Start Date End Date Amelia Montalvo DO [address] [place] [address] PCP - General Family Medicine 06/23/12 documented as of this encounter
--- OUTSIDE RECORDS SUMMARY | 2024-10-15 11:52 | XMS_ITS | Data Portability ---
Author Organization [employer] Address [address] [place] [address] Care Team Providers Care Infrastructure Project Manager Name Role Phone HIM CCA OTHER [facility] Primary Care Provider Assessment Encounter Date Assessment Date Assessment LastModified by Organization Details LastModified Time 07/28/2023 07/28/2023 I provided real -time medical direction via phone for this encounter, and was available for additional phone based assistance as needed. I have reviewed and agree with the Assessment and Plan as documented by the Building Maintenance Mechanic. We discussed the diagnostic uncertainty of home [...] verbalized understanding of instructions to the medic [email or web address] Not available 07/29/2023 00:10:23 04/11/2024 04/11/2024 As noted, we wer e called to see this patient regarding concerns of chest tightness and increased wob. Evaluation in the field was performed by my iron bender colleague, as noted above, I provided real-time [...] worsening serious symptoms, particularlyworsening shortness of breath [email or web address] Not available 04/11/2024 18:52:12 Plan of Treatment Reminders Order Date Submit Date Provider Last Modified By Organization Details Last Modified Time Details Appointments None recorded. Lab influenza virus A + B and SARS CoV 2 (COVID-19) and RSV RNA panel, AKASH+probe, respiratory specimen 2023 [place] [facility] (Centralized Electronic Ordering - All Locations), Patient Can Go To The Location Of Their Choice, [id number] 04:09:28 rapid SARS CoV 2 Ag, QL IA, respiratory specimen 2023 024 [email or web address] 0 [facility], [address] [place] [address], [id number] 12:36:39 rapid flu (A+B) 2023 024 [email or web address] 0 [facility], [address] [place] [address], [id number] 12:36:41 Referral None recorded. Procedures None recorded. Surgeries None recorded. Imaging None recorded. Medication Orders prednisone 20 mg tablet 2023 [email or web address] [facility], [address] [place] [address], [id number], 16:11:44 prednisone 20 mg tablet 2023 [facility], [address] [place] [address], [id number], 4 12:49:19 albuterol sulfate 2.5 mg/3 mL (0.083 %) solution for nebulizatio n 2023 [facility], [address] [place] [address], [id number], 4 12:49:19 Zithromax Z-Thomas 250 mg tablet 2023 024 [facility], [address] [place] [address], [id number], 4 12:26:06 Mucinex DM 30 mg-600 mg tablet,exte nded release 12 hr 2023 024 [facility], [address] [place] [address], [id number], 4 11:00:00 Patient TargetsNo targets recorded. Patient InstructionsNo instructions recorded. Reason for Referral None Reported. Results Created Date Observation Date Name Description Value Unit Range Abnormal Flag Note LastModifiedBy Organization Detail LastModifiedTime 07/28/1907/28/2023 COVID -19, RSV, FLU A/B PCR covid-19 PCR specimen source NASAL Not Available [facility] (Centralized Electronic Ordering - All Locations) Patient Can Go To The Location Of Their Choice, [id number] 07/29/2023 04:09:28 07/28/1907/29/2023 COVID -19, RSV, FLU [...] Go To The Location Of Their Choice, [id number] 07/29/2023 04:09:28 07/28/1907/29/2023 COVID -19, RSV, FLU [...] Go To The Location Of Their Choice, 07/29/2023 04:09:28 07/28/19 24 07/29/2023 COVID -19, [...] Go To The Location Of Their Choice, 07/29/2023 04:09:28 07/28/19 24 07/29/2023 COVID -19, RSV, FLU A/B PCR covid-19 PCR result (neg) NEGAT JULIOCESAR 2019- novel Coron aviru s (2018nCoV ) not detec pilar by real- time RT-PC R. Note: If clini cynthia suspi cion for COVID -19 is high, dmitri nue to maint ain preca ution s and consi maria de jesus repea t testi ng. Resul t repor pilar to the [facility]. All test resul ts must be corre lated with clini cynthia findi ngs. This test has been autho rized by the FDA under an Emerg ency Use Autho rizat ion (EUA) for use by autho rized labor atori es. Testi ng perfo rmed on the [employer] id GeneX pert utili zing real- time RT-PC R. Not Available [facility] (Centralized Electronic Ordering - All Locations) Patient Can Go To The Location Of Their Choice, 07/29/2023 04:09:28 07/28/19 24 07/28/2023 rapid flu (A+B) Flu negati ve Not Available [facility] ed [address] [place] [address], [phone] 07/28/2023 12:36:12 07/28/19 24 07/28/2023 rapid SARS CoV 2 Ag, QL IA, respi rator y speci men rapid SARS CoV 2 Ag, QL IA, respiratory specimen negati ve Not Available [facility] ed [address] [place] [address], [phone] 07/28/2023 12:36:04 Result Notes None recorded. Medical Equipment None Reported. Allergies Allergen ID Allergen Name Allergen Category Reaction Reaction Severity Criticality Documentation Date Start Date Code Code System Note Provider Name and Address Organization Details Recorded Time 4376 vancomyci n medicatio n Not available Not available Not available 07/28/2023 27063 RxNorm Not Available [facility] - production 4 03:35:06 4377 Vaccine product containin g only Clostridi um tetani antigen (medicina l product) medicatio n Not available Not available Not available 07/28/2023 59272 2002 SNOMED Janette Nice MD [address] [place] [address],[address], [place], [phone], [place] [employer] [employer] 4 12:27:09 Medications Name Sig Start Date Stop Date Status Note LastModified by Organization Details LastModified Time medbox status USE DIRECTED active Not Available Not Available No t Available pulse oximet airial [id number] USE FOR SHORTNESS OF BREATH OR FOR [...] mm[Hg] 138 mm[Hg] 86 mm[Hg] Not Available [facility] 4 12:42:06 Date Recorded Oxygen saturation Oxygen saturation in Arterial blood by Pulse oximetry Heart rate Respiratory rate Body temperature Systolic blood pressure Diastolic blood pressure Provider Name and Address Organization Details Last Updated DateTime 4 99 % 99 % 74 /min 16 /min 98.1 [degF] 126 mm[Hg] 74 mm[Hg] Not Available [employer] 4 16:47:25 Date Recorded Body weight Oxygen saturation Oxygen saturation in Arterial blood by Pulse oximetry Body height Body temperature Respiratory rate Heart rate Systolic blood pressure Diastolic blood pressure Provider Name and Address Organization Details Last Updated DateTime 4 13560.2 64 g 97 % 97 % 172.72 cm 97.7 [degF] 17 /min 97 /min 120 mm[Hg] 90 mm[Hg] Not Available [facility] - production 12:21:43 Date Recorded Body temperature Heart rate Oxygen saturation Oxygen saturation in Arterial blood by Pulse oximetry Systolic blood pressure Diastolic blood pressure Provider Name and Address Organization Details Last Updated DateTime 4 98.1 [degF] 77 /min 98 % 98 % 138 mm[Hg] 94 mm[Hg] Not Available [employer] - production 4 16:07:34 Social History None recorded. Functional Status None recorded. Mental Status None recorded. Family History Nothing Reported. Medical History No medical history recorded. Gynecological HistoryNo gynecological history recorded. Obstetrics History GPAL:G 0 P 0 0 0 0 Past Encounters Encounter ID Performer Location Encounter Start Date Encounter Closed Date Diagnosis/Indication Diagnosis SNOMED-CT Code Diagnosis ICD10 Code Diagnosis Note [id number] Janette Nice MD [facility] [address] [place] [phone] 07/28/2023 12:22:19 07/31/2023 13:34:03 Upper respiratory infection 08768535 J06.9 Likely viral. Advised we will call [...] afebrile without color nasal discharge or sputum [id number] Fortino Guzman MD [facility] [address] [place] [phone] 08/08/2023 16:47:19 08/09/2023 11:01:47 Viral upper respiratory tract infection 769316369 J06.9 Acute bronchitis 8287814 2 J20.9 This 77-year-ol d male has had congestion and a cough for almost a month. Mucinex DM hasn't been effective. I ordered a Z-Thomas. He will follow-up with his PCP for any persistent symptoms. The patient agreed with this plan. [id number] Lissy San MD Main - [facility] [phone] 01/24/2024 12:21:41 01/24/2024 18:25:34 Cough 25454131 R05.9 68 year old female with a [...] assessment and plan as documented by the iron bender. I provided real-time medical direction for this encounter and was immediatel y available to provide additional phone-base d assistance as needed. We discussed the diagnostic uncertaint y of home visits and associated risks. We discussed the need to seek care urgently/e mergently in the setting of any new or worsening symptoms. [id number] Jeet Stovall MD [facility] [address] [place] [phone] 04/11/2024 16:07:31 04/11/2024 23:08:50 Acute exacerbation of chronic obstructive pulmonary disease 502363377 J44.1 Health Concerns Section Related Observation LastModified by Organization Detai ls LastModified Time None Recorded Concern Status LastModified by Organization Details LastModified Time None Recorded Advance Directives Directive None Recorded Payers Encounter Date Sequence Insurance Name Policy Number Policy Kimble Covered Member ID Kimble Member ID Guarantor Name 07/28/2023 1 [facility] - DOS ON OR AFTER 2022 - DUAL ELIGIBLE - GROUP HOME OPTIONS AND ONE CARE (MEDICARE REPLACEMENT/ADV ANTAGE - HMO) Maida Mitchell [id number] Maida Mitchell 08/08/2023 1 [facility] [employer] - DOS ON OR AFTER 2022 - DUAL ELIGIBLE - GROUP HOME OPTIONS AND ONE CARE (MEDICARE REPLACEMENT/ADV ANTAGE - HMO) Maida Mitchell [id number] Maida Mitchell 01/24/2024 1 [facility] - DOS ON OR AFTER 2022 - DUAL ELIGIBLE - GROUP HOME OPTIONS AND ONE CARE (MEDICARE REPLACEMENT/ADV ANTAGE - HMO) Maida Mitchell [id number] Maida Mitchell 04/11/2024 1 [facility] - DOS ON OR AFTER 2022 - DUAL ELIGIBLE - GROUP HOME OPTIONS AND ONE CARE (MEDICARE REPLACEMENT/ADV ANTAGE - HMO) Maida Mitchell [id number] Maida Mitchell Notes Date Note Type Note [...] Weakness/Lethargy, Headache, Asthma, COPDPMH: COPD/AsthmaAllergie s: VancomycinComments: Administrative Library Assistant verified the member's name//address and phone number [...] ................... ................... ................... ................... ................... ................... ........ Building Maintenance Mechanic Note From Humza Rabago: Encountered patient conscious, [...] and Covid swaps performed, both resulted negative, [facility] advised. Skin warm, dry, and of appropriate color for ethnicity. Head and neck, free of trauma and edema. -JVD. Breath sounds present and clear and left bilaterally, right breath sounds exhibit fine rails in the upper and lower lobes. Abdomen soft, non-tender non-distended. Extremities is free of trauma and edema. [facility] contacted: orders for PCR and orthostatic vital science performed results reported to [facility]. PCR swab to be taken to [facility] laboratory. [facility] to write prescription for medication regimen at patient? s pharmacy of choice. Red flags discussed with patient, patient urged to seek further medical attention. Should she develop priority symptoms, such as chest pain, syncope, fevers, acute shortness of breath or changes in vision. Patient expresses understanding and would like to remain home at this time. Building Maintenance Mechanic Allergies: Vancomycin ................... ................... ................... ................... ................... [...] dizziness during the exam Janette Nice MD [address] [place] [address],[address], [place], [phone], [employer] 07/29/2023 00:10:48 08/08/2023 text/html CRC Nurse Triage Notes (Demetra Romero): Reason For Request: sob Chief Complaints: Shortness of Breath/Dyspnea PMH: COPD/Asthma Allergies: Vancomycin Comments: Verified identity/ / address Call completed with special education administrator Member is a 68 yr old female, INFO SPECIALIST calling for member with increased weakness and sob for over a week. Per INFO SPECIALIST , [facility] went out on 07/28. Member was found to be Negative per PCR and mucinex sent . Per member is taking medication. Member is not on home , but has neb . Member dry cough, no wheezing when breathing Fortino Guzman MD [address] [facility],[address], [place], [address], [employer] 08/08/2023 17:01:14 01/24/2024 text/html HPI: Member had [...] No further information needed to process visit. Building Maintenance Mechanic POC Test Results from Yared Saenz - ALS Rapid COVID antigen (12:49:53) COVID: - ................... ................... ................... ................... ................... ................... ................... ........ Building Maintenance Mechanic Note From Yared Saenz: [facility] dispatched for a 68 YO F [...] prescribed. PT still drinking plenty of fluids. [facility] performs rapid PCR covid test which is negative. PT denies takin any OTC medication for the pain. [facility] contacts PT [facility] who recommends fluids and rest at home. Believes this to be a viral common cold and to let it run its course. [facility] also recommends to follow up with GI doctor about any recent changes with her eating changes or pain levels. [facility] explains to pt that if she experiences any sudden onset SOB, chest pain or sudden N/v that she should contact [facility] for a higher level of care. ................... ................... ................... ................... ................... ................... ................... ........ Disposition: Fulfilled Lissy San MD [address] [facility],[address], [place], [address], [employer] [employer] 01/24/2024 13:37:22 04/11/2024 text/html CRC Nurse Triage Notes (Demetra Romero): Reason For Request: PT reporting chest tightness + and some shortness of breath Chief Complaints: Shortness of Breath/Dyspnea PMH: COPD/Asthma Allergies: Vancomycin Comments: Administrative Library Assistant verified the member's name//address and phone number. Member is a 68 yr old [place] female , a/o3 PMH >ASthma / copd [...] ................... ................... ................... ................... ................... ................... ........ Building Maintenance Mechanic Note From Ayo Tomlin: Dispatched for evaluation of a 68 y/o female, Icelandic speaking only, complaining and requesting an evaluation of shortness of breath and tightness in chest. Upon arrival to pt apartment, pt ambulatory waiting for providers at door. Pt sat on couch and assessment performed, vital signs obtained. Language line utilized due to pt speaking Icelandic only, with pt and providers able to communicate in short sentences in Kittitian. Assessment found CAOX4, airway open and patent, [...] pt allergies and pharmacy and contacted [facility]. [facility] ordered Duoneb treatment and to call back after treatment completed with further assessment. Duoneb administered with pt stating improvement in symptoms upon completion, lung sounds clear in all [place], pt work of breathing noted to be improved, pt breathing slower and with less effort. [facility] contacted with update, [facility] ordering second duoneb and 40mg prednisone, with [facility] sending prednisone prescription to pt pharmacy. Providers administered 40mg prednisone and began duoneb treatment. Red flags discussed. Providers then left the residence. All times approximate. ................... ................... ................... ................... ................... ................... ................... ........ Disposition: Fulfilled Jeet Stovall MD [address] [facility],[address], [place], [address], [employer] [employer] 04/11/2024 18:52:26 OBGyn Episode No OBEpisode recorded.
--- OUTSIDE RECORDS SUMMARY | 2024-10-15 11:52 | XMS_ITS | Encounter Summary ---
Author Organization [employer] Address [address] [facility] [address] [place] [address] Care Team Providers Care Study Manager Name Role Phone Amelia Montalvo DO Primary Care Provider + [phone] Reason for Visit * Reason Comments Med Refill Encounter Details Date Type Department Care Team (Late st Contact Info) Description 12/07/2022 Refill [facility] [address] [place] [address] Iram Ascencio FNP Social History Tobacco Use [...] Description 10/16/2024 9:45 AM EDT Office Visit [facility] [address] [place] [address] Amelia Montalvo DO [address] [place], [place] [phone] 11/06/2024 10:00 AM EDT Office Visit [facility] [address] [place] [address] Farhat Guyaris [address] [place] [address] 12/06/2024 1:30 PM EDT Clinical Support [facility] [address] [place] [address] Mai Bishop RN documented as of this encounter Visit Diagnoses Not on filedocumented in this encounter Care Teams Study Manager Relationship Specialty Start Date End Date Amelia Montalvo DO [address] [place] [address] PCP - General Family Medicine 06/23/12 documented as of this encounter
--- OUTSIDE RECORDS SUMMARY | 2024-10-15 11:52 | XMS_ITS | Encounter Summary ---
Author Organization [employer] [facility] Address [address] [facility] [address] [place] [address] Care Team Providers Care Speech Language Therapist Name Role Phone Amelia Montalvo DO Primary Care Provider [phone] Encounter Details Date Type Department Care Team (Late Contact Info) Description 11/04/[address] [address] Amelia Montalvo DO [address] [place], [place] [phone] Social History Tobacco Use Types Packs/Day Years [...] Office Visit [facility] [address] [place] [address] Amelia Montalvo DO [address] [place], [place] [phone] 11/06/2024 10:00 AM EDT Office Visit [facility] [address] [place] [address] Cely Guy [address] [place] [address] 12/06/2024 1:30 PM EDT Clinical Support [facility] [address] [place] [address] Mai Bishop RN documented as of this encounter Visit Diagnoses Not on filedocumented in this encounter Care Teams Speech Language Therapist Relationship Specialty Start Date End Date Amelia Montalvo DO [address] [place] [address] PCP - General Family Medicine 06/23/12 documented as of this encounter
--- OUTSIDE RECORDS SUMMARY | 2024-10-15 11:52 | XMS_ITS | Encounter Summary ---
Author Organization [employer] Address [address] [facility] [address] [place] [address] Care Team Providers Care Assembler Motor Vehicle Name Role Phone Amelia Montalvo DO Primary Care Provider [phone] Reason for Visit * Reason Comments Cough Encounter Details Date Type Department Care Team ([facility] st Contact Info) Description 10/15/2024 8:40 AM EDT Office Visit [facility] [address] [place] [address] Igor Stroud MD [address] [place] [address] Influenza A (Primary Dx); Moderate persistent asthma with acute exacerbation Social History Tobacco Use Types Packs/Day Years [...] 12.8 oz) 10/15/2024 8:39 AM EDT Height - - Body Mass Index 26.12 10/12/2024 9:58 AM EDT documented in this encounter Progress Notes * Igor Stroud MD - 10/15/2024 8:40 AM EDT Subjective Patient ID: Maida Mitchell is a 69 y.o. female. Communication Clerk: Jose SNEED Maida was seen in [facility] 3 days ago for 1 week h/o body aches, headaches, dry cough, chills, mild wheezing, SOB. Using Albuterol HFA 2x/day, albuterol neb 2x/day , Fluticasone-Salmeterol 250-50 MCG/ACT aerosol powder, Accolate. No n/v/d. Has decreased appetite. Using ibuprofen and acetaminophen with some relief. Had + rapid Flu A test, neg rapid Covid test. She was outside the therapeutic window for Tamiflu. Ibuprofen and acetaminophen were refilled. Prescribed prednisone. She returns to [facility] today because of persistent cough, wheezing, SOB despite taking prednisone. No fever, chills, n/v/d. Lives alone. Never smoked. Not employed. The following portions of the chart were reviewed this encounter and updated as appropriate: Tobacco Allergies Meds Problems Med Hx Surg Hx Fam Hx Review of Systems Constitutional: Negative for fever. Respiratory: Positive for cough, shortness of breath and wheezing. Cardiovascular: Negative for chest pain. Gastrointestinal: Negative for abdominal pain. Skin: Negative for rash. Neurological: Negative for headaches. Objective Physical Exam Constitutional: Appearance: [...] Effort: Pulmonary effort is normal. Breath sounds: Wheezing (mild diffuse bilat expiratory) present. Musculoskeletal: General: Normal range of motion. Cervical back: No tenderness. Skin: Findings: No rash. Neurological: Mental Status: She is alert. Gait: Gait is intact. Psychiatric: Mood and Affect: Mood normal. Behavior: Behavior normal. Procedures Assessment/Plan Diagnoses and all orders for this visit: Influenza A Cough, wheezing, SOB are not improving, ? Concomitant pneumonia. Discussed oupt CXR vs ED evaluation and treatment, and she prefers to go to the ED now. Moderate persistent asthma with acute exacerbation As above. * Mona Vides RN - 10/15/2024 8:40 AM EDT ED expect via private car to [facility] ED per verbal order per Dr. Stroud. [facility] ED staff verbalized understanding. No questions or concerns expressed at time of call. [facility] ED and pt to F/U as needed. documented in this encounter Plan of Treatment Upcoming Encounters Date Type Department Care Team (Late st Contact Info) Description 10/16/2024 9:45 AM EDT Office Visit [facility] [address] [place] [address] Amelia Montalvo DO [address] [place] [address] 11/06/2024 10:00 AM EDT Office Visit [facility] [address] [place] [address] BrooksCely [address] [place] [address] 12/06/2024 1:30 PM EDT Clinical Support [facility] [address] [place] [address] Mai Bishop, JAMAAL documented as of this encounter Visit Diagnoses Diagnosis Influenza A- Primary Influenza with other respiratory manifestations Moderate persistent asthma with acute exacerbation documented in this encounter Additional Health Concerns Assessment Noted Time PHQ-9 Depression Total Score: 18 024 2:12 PM EDT documented as of this encounter Care Teams Assembler Motor Vehicle Relationship Specialty Start Date End Date Amelia Montalvo DO [address] [place] [address] PCP - General Family Medicine 06/23/12 documented as of this encounter
--- OUTSIDE RECORDS SUMMARY | 2024-10-15 11:52 | XMS_ITS | Encounter Summary ---
Author Organization [employer] Address [address] [facility] [address] [place] [address] Care Team Providers Care Loan Servicing Specialist Name Role Phone Amelia Montalvo DO Primary Care Provider [phone] Encounter Details Date Type Department Care Team (Late st Contact Info) Description 09/13/[address] [facility] [address] [place] [address] Amelia Kemp LPN Social History Tobacco Use [...] 10/16/2024 9:45 AM EDT Office Visit [facility] [address] [place] [address] Amelia Montalvo DO [address] [place] [address] 11/06/2024 10:00 AM EDT Office Visit [facility] [address] [place] [address] Cely Guy [address] [place] [address] 12/06/2024 1:30 PM EDT Clinical Support [facility] [address] [place] [address] Mai Bishop, JAMAAL documented as of this encounter Visit Diagnoses Not on filedocumented in this encounter Care Teams Loan Servicing Specialist Relationship Specialty Start Date End Date Amelia Montalvo DO [address] [place] [address] PCP - General Family Medicine 06/23/12 documented as of this encounter
--- OUTSIDE RECORDS SUMMARY | 2024-10-15 11:52 | XMS_ITS | Encounter Summary ---
Author Organization [employer] Address [address] [facility] 7t [place] [address] Care Team Providers Care Seed Laboratory Assistant Name Role Phone Amelia Montalvo DO Primary Care Provider + [phone] Reason for Visit * Reason Comments Med Refill Encounter Details Date Type Department Care Team ([facility] st Contact Info) Description 11/15/2023 Refill [facility] MEDICINE [address] [place] [address] Charley Miller MD [address] [place] [address] Social History Tobacco Use Types Packs/Day Years [...] Description 10/16/2024 9:45 AM EDT Office Visit [facility] MEDICINE [address] [place] [address] Amelia Montalvo DO [address] [place] [address] 11/06/2024 10:00 AM EDT Office Visit [facility] ADULT DENTAL [address] [place] [address] Cely Guy [address] [place] [address] 12/06/2024 1:30 PM EDT Clinical Support [facility] MEDICINE [address] [place] [address] Mai Bishop, JAMAAL documented as of this encounter Visit Diagnoses Not on filedocumented in this encounter Care Teams Seed Laboratory Assistant Relationship Specialty Start Date End Date Amelia Montalvo DO [address] [place] [phone] PCP - General Family Medicine 06/23/12 documented as of this encounter
--- OUTSIDE RECORDS SUMMARY | 2024-10-15 11:52 | XMS_ITS | Encounter Summary ---
Author Organization [facility] Address 75 [facility] 7t [place] [address] Care Team Providers Care Rod Mill Tender Name Role Phone Amelia Montalvo DO Primary Care Provider [phone] Encounter Details Date Type Department Care Team (Late st Contact Info) Description 10/26/2022 Orders Only [facility] MEDICINE [address] [place] [address] Michelle Vides LPN Social History Tobacco Use [...] Description 10/16/2024 9:45 AM EDT Office Visit [facility] MEDICINE [address] [place] [address] Amelia Montalvo DO [address] [place] [address] 11/06/2024 10:00 AM EDT Office Visit [facility] ADULT DENTAL [address] [place] [address] Cely Guy [address] [place] [address] 12/06/2024 1:30 PM EDT Clinical Support [facility] MEDICINE [address] [place] [address] Mai Bishop, JAMAAL documented as of this encounter Visit Diagnoses Not on filedocumented in this encounter Care Teams Rod Mill Tender Relationship Specialty Start Date End Date Amelia Montalvo DO [address] [place] [phone] PCP - General Family Medicine 06/23/12 documented as of this encounter
--- OUTSIDE RECORDS SUMMARY | 2024-10-15 11:52 | XMS_ITS | Encounter Summary ---
Author Organization [facility] Address [address] [facility] 7t [place] [address] Care Team Providers Care Community Health Program Coordinator Name Role Phone Amelia Montalvo DO Primary Care Provider [phone] Encounter Details Date Type Department Care Team (Latest Contact Info) Description 06/04/2020 Abstract [facility] CONVERSIONS Dental, Provider, DDS Social History [...] 10/16/2024 9:45 AM EDT Office Visit [facility] MEDICINE [address] [place] [phone] Amelia Montalvo DO [address] [place] [address] 11/06/2024 10:00 AM EDT Office Visit [facility] ADULT DENTAL [address] [place] [address] Cely Guy [address] [place] [address] 12/06/2024 1:30 PM EDT Clinical Support [facility] MEDICINE [address] [place] [phone] Mai Bishop RN documented as of this encounter Visit Diagnoses Not on filedocumented in this encounter Care Teams Community Health Program Coordinator Relationship Specialty Start Date End Date Amelia Montalvo DO [address] [place] [address] PCP - General Family Medicine 06/23/12 documented as of this encounter
--- OUTSIDE RECORDS SUMMARY | 2024-10-15 11:52 | XMS_ITS | Encounter Summary ---
Author Organization [employer] [facility] Address 75 [facility] 7t [place] [address] Care Team Providers Care Tubing Machine Operator Name Role Phone Amelia Montalvo DO Primary Care Provider + [phone] Encounter Details Date Type Department Care Team (Latest Contact Info) Description 03/29/2022 Abstract [facility] CONVERSIONS Dental, Provider, DDS Social History [...] Description 10/16/2024 9:45 AM EDT Office Visit [facility] MEDICINE [address] [place] [address] Amelia Montalvo DO [address] [place] [address] 11/06/2024 10:00 AM EDT Office Visit [facility] ADULT DENTAL [address] [place] [address] Cely Guy [address] [place] [address] 12/06/2024 1:30 PM EDT Clinical Support [facility] MEDICINE [address] [place] [phone] Mai Bishop RN documented as of this encounter Visit Diagnoses Not on filedocumented in this encounter Care Teams Tubing Machine Operator Relationship Specialty Start Date End Date Amelia Montalvo DO [address] [place] [phone] PCP - General Family Medicine 06/23/12 documented as of this encounter
--- OUTSIDE RECORDS SUMMARY | 2024-10-15 11:52 | XMS_ITS | Encounter Summary ---
Author Organization [facility] [facility] Address 75 [facility] 7t [place] [address] Care Team Providers Care Drop Wire Hanger Name Role Phone Amelia Montalvo DO Primary Care Provider [phone] Encounter Details Date Type Department Care Team (Latest Contact Info) Description 08/10/2018 Abstract [facility] CONVERSIONS Dental, Provider, DDS Social History [...] Office Visit [facility] MEDICINE [address] [place] [address] Amelia Montalvo DO [address] [place] [address] 11/06/2024 10:00 AM EDT Office Visit [facility] ADULT DENTAL [address] [place] [address] Cely Guy [address] [place] [address] 12/06/2024 1:30 PM EDT Clinical Support [facility] MEDICINE [address] [place] [address] Mai Bishop RN documented as of this encounter Visit Diagnoses Not on filedocumented in this encounter Care Teams Drop Wire Hanger Relationship Specialty Start Date End Date Amelia Montalvo DO [address] [place] [address] PCP - General Family Medicine 06/23/12 documented as of this encounter
--- OUTSIDE RECORDS SUMMARY | 2024-10-15 11:52 | XMS_ITS | Encounter Summary ---
Author Organization [employer] Address 75 [facility] 7t [place] [address] Care Team Providers Care Steeplechase Jockey Name Role Phone Amelia Montalvo DO Primary Care Provider [phone] Encounter Details Date Type Department Care Team (Latest Contact Info) Description 10/15/2024 Travel Social History Tobacco Use Types Packs/Day [...] Office Visit [facility] MEDICINE [address] [place] [address] Amelia Montalvo DO [address] [place] [address] 11/06/2024 10:00 AM EDT Office Visit [facility] ADULT DENTAL [address] [place] [address] Cely Guy [address] [place] [address] 12/06/2024 1:30 PM EDT Clinical Support [facility] MEDICINE [address] [place] [address] Mai Bishop RN documented as of this encounter Visit Diagnoses Not on filedocumented in this encounter Additional Health Concerns Assessment Noted Time PHQ-9 Depression Total Score: 18 12/12/2 024 2:12 PM EDT documented as of this encounter Care Teams Steeplechase Jockey Relationship Specialty Start Date End Date Amelia Montalvo DO [address] [place] [address] PCP - General Family Medicine 06/23/12 documented as of this encounter
--- OUTSIDE RECORDS SUMMARY | 2024-10-15 11:53 | XMS_ITS | Encounter Summary ---
Author Organization [employer] Address [address] [facility] 7t [place] [address] Care Team Providers Care Director Selection And Administration Name Role Phone Amelia Montalvo DO Primary Care Provider [phone] Encounter Details Date Type Department Care Team (Late st Contact Info) Description 10/07/2022 Orders Only [facility] MED & PEDS [address] [place], [place] [phone] Amelia Kemp LPN Social History Tobacco Use [...] Description 10/16/2024 9:45 AM EDT Office Visit [facility] MEDICINE [address] [place] [address] Amelia Montalvo DO [address] [place] [address] 11/06/2024 10:00 AM EDT Office Visit [facility] ADULT DENTAL [address] [place] [address] Cely Guy [address] [place] [address] 12/06/2024 1:30 PM EDT Clinical Support [facility] MEDICINE [address] [place] [address] Mai Bishop, RN documented as of this encounter Procedures Procedure Name Priority Date/Time Associated Diagnosis Comments CT HEAD WO CONTRAST Routine 10/22/2022 1 0:52 AM EDT documented in this encounter Results * CT Head w/o Contrast (10/22/2022 10:52 AM EDT) Anatomical Region Laterality Modality Head, Neck Computed Tomogra phy 10/22/2022 10:5 2 AM EDT Narrative 11/02/2022 3:00 PM EDT ? [facility] ?[address] ?[place] [address] ? CT Scan Report ? Signed ? Patient: StephenMaida I ?MR#: [id number] ?? 71 ? : 1955 ?Acct:[id number] ? Age/Sex: 67 / F ?ADM Date: 10/22/22 ? Loc: HO.CT ? Attending Dr: Igor Landry MD ? Ordering Physician: IGOR LANDRY MD ?? Date of Service: 10/22/22 ?? Procedure(s): CT head/brain wo IV con ?? Accession Number(s): [id number] ? cc: IGOR LANDRY MD ? EXAMINATION: [...] 1457 ? DD/ 1052 ? TD/TT: ? Athletic Equipment Manager: SUJ ? Procedure Note Lola, Image - 11/02/[address] [place] [address] [address] Scan Report Signed Patient: Maida Mitchell IMR#: [id number] 71 : 1955cct:[id number] Age/Sex: 67 / FADM Date: 10/22/22 Loc: HO.CT Attending Dr: Igor Landry MD Ordering Physician: IGOR LANDRY MD Date of Service: 10/22/22 Procedure(s): CT head/brain wo IV con Accession Number(s): [id number] cc: IGOR LANDRY MD EXAMINATION: CT HEAD [...] in OV> 11/02/22 1457 DD/ 1052 TD/TT: Athletic Equipment Manager: REGINA [facility] External Provider IMG CT PROCEDURES Edited Result - Final documented in this encounter Visit Diagnoses Not on filedocumented in this encounter Care Teams Director Selection And Administration Relationship Specialty Start Date End Date Amelia Montalvo DO [address] [place] [address] PCP - General Family Medicine 06/23/12 documented as of this encounter
--- OUTSIDE RECORDS SUMMARY | 2024-10-15 11:53 | XMS_ITS | Data Portability ---
Author Organization [facility] [employer] [facility] Main Office Address [address] [facility], [address] [place] [address] Care Team Providers Care Gear Shaper Name Role Phone WESTLEY AMBROCIO - 2ND FLOOR OTHER DIANELYS IYER Primary Care Provider [phone] Assessment Encounter Date Assessment Date Assessment LastModified by Organization Details LastModified Time 01/11/2024 01/11/2024 I have seen and examined the patient independently and confirmed the findings above with the [employer]EN [employer] student note. Management plan discussed with the GREEN PL[employer] student personally. [email or web address] Not available 01/11/2024 13:09:31 Plan of Treatment [...] Recorded Time Chronic obstructi ve pulmonary disease 15834537 Active 2023 Jennifer Zaragoza NP [address] [facility], [address], [place], [address], [facility] [employer] 4 14:58:38 Restless legs 87952712 Active 2023 Jennifer Zaragoza NP [address] [facility], [address], [place], [address], [facility] [employer] 4 14:58:57 Osteoarth ritis 752620416 Active 2023 Jennifer Zaragoza NP [address] [facility], [address], [place], [address], [facility] [employer] 4 14:59:07 Gastroeso phageal reflux disease 829117272 Active 2023 Jennifer Zaragoza NP [address], [address], [place], [address], [facility] 4 14:59:12 Abnormal small bowel motility 33359254 Active 2023 Jennifer Zaragoza NP [address], [address], [place], [address], [facility] 4 14:59:26 Allergic rhinitis 10184425 Active 2023 Jennifer Zaragoza NP [address], [address], [place], [address], [facility] 4 14:59:38 Anxiety 50006921 Active 2023 Jennifer Zaragoza NP [address], [address], [place], [place], [address], [facility] 4 14:59:47 Total knee replaceme nt Active 2023 Jennifer Zaragoza NP [address], [address], [place], [place], [address], [facility] 4 15:00:05 Pain of right knee region 089704409822 105 Active 2023 Jennifer Zaragoza NP [address], [place], [place], [address], [facility] 4 15:02:07 Migraine 34578617 Completed 202312/23/2023 Jennifer Zaragoza NP [address], [address], [place], [place], [address], [facility] 4 15:02:20 Vertigo 845163131 Active 2023 Jennifer Zaragoza NP [address], [address], [place], [address], [facility] 4 15:02:40 Asthenia 52220416 Active 2023 Jennifer Zaragoza NP [address], [address], [place], [address], [facility] 4 15:03:52 Headache disorder 457884545 Active 2023 Omkar Clement MD [address], [address], [place], [address], [facility] 4 11:36:49 Primary osteoporo sis 533722398 Active 2023 Omkar Clement MD [address], [address], [place], [address], [facility] 4 11:37:06 Chronic idiopathi c constipat ion 83120329 Active 2023 Omkar Clement MD [address], [place], [address], [facility] 4 11:37:24 Problem Notes None recorded. Procedures Surgical History Date Name Laterality Status Provider Name and Address Organization Details Recorded Time 2023 total replacement of left knee joint completed Jennifer Zaragoza NP [address], [place], [address], [facility] 4 14:43:53 total replacement of right knee joint completed Jennifer Zaragoza NP [address], [place], [address], [facility] 4 14:43:20 operation on external ear completed Jennifer Zaragoza NP [address] [facility], [address], [place], [address], [facility] 4 14:44:10 colonoscopy completed Jennifer Zaragoza NP [address], [address], [place], [address], [facility] 4 14:44:26 esophagogastroduodenoscopy completed Jennifer Zaragoza NP [address], [address], [place], [address], [facility] 4 14:44:38 Imaging Results None recorded. Procedure Notes None recorded. Medical Equipment None Reported. Allergies Allergen ID Allergen Name Allergen Category Reaction Reaction Severity Criticality Documentation Date Start Date Code Code System Note Provider Name and Address Organization Details Recorded Time 58243 vancomyci n medicatio n other Not available high 12/23/2023 90611 RxNorm redne ss swell ing Not Available Not Available Not Available 14819 tetanus and diphtheri a toxoids Not available anaphylax is severe high 12/23/2023 06278 UNK fever Not Available Not Available Not Available Medications Not known to be on any medication Vitals Date Recorded Body weight Heart rate Respiratory rate Body temperature Oxygen saturation Oxygen saturation in Arterial blood by Pulse oximetry Systolic blood pressure Diastolic blood pressure Provider Name and Address Organization Details Last Updated DateTime 4 52886.4 4 g 75 /min 18 /min 98 [degF] 97 % 97 % 120 mm[Hg] 70 mm[Hg] Jennifer Zaragoza NP [address], [address] [place], [place] [employer] 4 13:15:38 Date Recorded Body weight Heart rate Respiratory rate Body temperature Oxygen saturation Oxygen saturation in Arterial blood by Pulse oximetry Systolic blood pressure Diastolic blood pressure Provider Name and Address Organization Details Last Updated DateTime 4 11839.4 4 g 64 /min 18 /min 97.6 [degF] 97 % 97 % 124 mm[Hg] 68 mm[Hg] Jennifer Zaragoza NP [address], [address] [place], [place] [employer] 4 18:04:40 Date Recorded Body weight Heart rate Respiratory rate Body temperature Oxygen saturation Oxygen saturation in Arterial blood by Pulse oximetry Systolic blood pressure Diastolic blood pressure Provider Name and Address Organization Details Last Updated DateTime 4 32992.4 4 g 62 /min 16 /min 98.4 [degF] 98 % 98 % 124 mm[Hg] 68 mm[Hg] Jennifer Zaragoza NP [address], [address] [place], [place] [employer] 4 09:59:09 Date Recorded Heart rate Respiratory rate Body temperature Oxygen saturation Oxygen saturation in Arterial blood by Pulse oximetry Systolic blood pressure Diastolic blood pressure Provider Name and Address Organization Details Last Updated DateTime 4 78 /min 18 /min 98.5 [degF] 95 % 95 % 118 mm[Hg] 70 mm[Hg] ANA BENJAMIN, KERLINE [address] [facility], [address], [place], [address], [facility] 4 09:45:01 Date Recorded Body weight Heart rate Respiratory rate Body temperature Oxygen saturation Oxygen saturation in Arterial blood by Pulse oximetry Systolic blood pressure Diastolic blood pressure Provider Name and Address Organization Details Last Updated DateTime 4 45201.8 9 g 70 /min 18 /min 98.2 [degF] 99 % 99 % 129 mm[Hg] 74 mm[Hg] MELISSA SIMON [address], [address], [place], [address], [facility] 4 17:48:15 Social History Question Answer Notes LastModified by Organizat ion Details LastModified Time Tobacco Smoking Status Former Smoker Jennifer Zaragoza, KERLINE [address] [facility], [address], [place], [address], [facility] 12/23/2023 14:48:10 Do You Have An [...] B, unspecified formulation 4 completed Della Jeet [facility], [facility] [place] 12/23/2023 10:39:43 Hep B, unspecified formulation 5 completed Della Jeet [facility], [facility] [place] 12/23/2023 10:39:51 Hep B, unspecified formulation 5 completed Della Jeet [facility], [facility] [place] 12/23/2023 10:39:57 Pneumococcal conjugate PCV [address] [facility] 12/23/2023 10:40:57 pneumococcal polysaccharide PPV23 [address] [facility] 12/23/2023 10:41:39 pneumococcal polysaccharide PPV23 [address] [facility] 12/23/2023 10:41:50 pneumococcal polysaccharide PPV23 [address] [facility] 12/23/2023 10:41:58 influenza, unspecified formulation [address] [facility] 12/23/2023 10:42:16 influenza, unspecified formulation [address] [facility] 12/23/2023 10:42:24 SARS-COV-2 (COVID-19) vaccine, UNSPECIFIED [address] [facility] 12/23/2023 10:42:40 SARS-COV-2 (COVID-19) vaccine, UNSPECIFIED [address] [facility] 12/23/2023 10:42:49 SARS-COV-2 (COVID-19) vaccine, UNSPECIFIED [address] [facility] 12/23/2023 10:42:56 zoster live [address] [facility] 12/23/2023 10:43:30 zoster recombinant 1 completed Della King estella [facility] [place] 12/23/2023 10:43:50 zoster recombinant 1 completed Della soria [facility] [place] 12/23/2023 10:44:01 Past Encounters Encounter ID Performer Location Encounter Start Date Encounter Closed Date Diagnosis/Indication Diagnosis SNOMED-CT Code Diagnosis ICD10 Code Diagnosis Note [id number] Jennifer Zaragoza NP [address] [address] 12/23/2023 14:27:58 12/27/2023 10:39:41 Pain of right knee region 3037691293 38472 M25.561 sp 12/[address] [...] s/s infection Chronic ob structive pulmonary disease 77169324 J44.9 albuterol 2 puff po q 4 prnalb neb q 4hours prn sobflutica sone/salme terol 250/50 bidmonitor Restless legs 73809179 G 25.81 ropinirole 0.25 mg po qhsmonitor Osteoarthritis 477637740 M19.90 now with 2 knee surgeries to help with painwith 2 calcium citrate vit d 3 2 tab bidvit b12 1000 mcg dailyvit d 3 50 mcg po dialyalend ronate 70 mg q weekmonito r Abnormal s mall bowel motility 82004465 R19.8 bm todaymulti vit with iron qdfiber lax 625 mg po qddocusate 100 mg po bidbisacod yl 5 mg po qhsmonitor Gastroesop hageal reflux disease 548434980 K21.9 omeprazole 20 mg bidmetoclo pramide 10 mg po qidlinzess 290 mcgh cap q amfamotidi ne 40 mg po qhszofran 4 mg po q 8 prnmonitor Anxiety 81886625 F41.9 contmirtaz apine 22.5 mg po qhsclonaze ana 1 mg po bid prnmonitor Vertigo 248110681 R42 meclizine 25 mg po tid prn Allergic rhinitis 019257 04 J30.9 azelastine 137mcg intranasal daily both naresfluti casone 50 mcg 2 spray intranasal dailylorat idine 10 mg po dailyzafir lukast 20 mg po bidmonitor Asthenia 85848768 R53.1 pt ot treat and evalmonito r Migraine 81518128 G43.90 9 sumatripta n 100 mg po q 2-4 hours prn (nte 2 doses in 24 hours) [id number] [facility] [address] 12/26/2023 13:46:11 12/29/2023 09:48:46 Pain of right knee region 3934595313 08121 M25.561 sp 12/[address] [...] s/s infection Chronic ob structive pulmonary disease 92012706 J44.9 contalbute rol 2 puff po q 4 prnalb neb q 4hours prn sobflutica sone/salme terol 250/50 bidmonitor Restless legs 58163408 G 25.81 contcropin irole 0.25 mg po qhsmonitor Osteoarthritis 990761617 M19.90 now with 2 knee surgeries to help with painwith 2 calcium citrate vit d 3 2 tab bidvit b12 1000 mcg dailyvit d 3 50 mcg po dialyalend ronate 70 mg q weekmonito r Vertigo 891413263 R42 meclizine 25 mg po tid prn Allergic rhinitis 808412 04 J30.9 azelastine 137mcg intranasal daily both naresfluti casone 50 mcg 2 spray intranasal dailylorat idine 10 mg po dailyzafir lukast 20 mg po bidmonitor Asthenia 66796734 R53.1 pt ot treat and evalmonito r [id number] Omkar Clement MD [address] [address] 12/27/2023 11:30:56 12/29/2023 10:05:35 Osteoarthritis of left knee joint 1356078080 53857 M17.12 end stage OA left knee now s/p TKRASA 325 mg bid for dvt prophylaxi sfollow ortho recs and update with concernsPT OT Eval and treatmonit or for pain control Chronic ob structive pulmonary disease 24294019 J41.1 advair 250/50 bidmonitor respirator y status and albuterol utilizatio n Restless legs 31552104 G 25.81 ropinirole 0.25 mg po qhsmonitor for effect Vertigo 267692039 R42 carrying dxmeclizin e 25 mg po tid prnmonitor for sx and need for further workup Allergic rhinitis 677667 04 J30.2 appears to be significan t issue for patient at baselineco ntinue out patient medsavoid PO steroid given post op statusmoni tor sx Asthenia 22237384 R53.1 PT OT eval and treatmonit or fall risk Chronic id iopathic constipation 19703575 K59.04 appears with dysmotilit y disorderma intained onlinzess 290 mg qdmonitor for effectGI eval prn Primary osteoporosis 276 534271 M81.0 fosamax 70 mg q weekcontin ued Headache disorder 072852 009 G44.89 baseline migraine hxon imitrex prnadded to H Gastroesop hageal reflux disease 163278011 K21.9 famotidine 40 mg qdmonitor for sx relief Cellulitis of left lower limb 1267192216 5737718 L03.116 concern for infection at incision sitestarte d on keflexorth o updated and reeval not felt to be infectedab x d/c'ed [id number] Jennifer Zaragoza NP [facility] [address] 12/28/2023 13:14:27 01/04/2024 15:54:46 Osteoarthritis of left knee joint 3389321138 33221 M17.12 end stage OA left knee now s/p TKRASA 325 mg bid for dvt prophylaxi s until 02/02follow ortho recsand update with concerns and monitor for infectionP T OT Eval and treatmonit or for pain control Cellulitis of left lower limb 3152619913 4136210 L03.116 concern for infection at incision sitestarte d on keflexorth o updated and reeval not felt to be infectedab x d/c'ed on 12/26ice prnwbc is 11.2 on 12/26 elevated, however site is less warm and decreased swellingmo nitor closely for infection and reeval labs on tuesday Asthenia 98819963 R53.1 PT OT eval and treatmonit or fall risk Restless legs 33475278 G 25.81 ropinirole 0.25 mg po qhsmonitor for effect [id number] Jennifer Zaragoza NP [facility] [address] 01/04/2024 16:01:53 01/10/2024 09:58:03 Osteoarthritis of left knee joint 5948978066 39040 M17.12 end stage OA left knee now s/p TKRASA 325 mg bid for dvt prophylaxi s until 02/02follow ortho recsand update with concerns and monitor for infectionP T OT Eval and treatmonit or for pain control Asthenia 27275245 R53.1 PT OT eval and treatmonit or fall risk Restless legs 55948451 G 25.81 ropinirole 0.25 mg po qhsmonitor for effect Dysuria 19665968 R30.0 pt with report of dysuria and frequencyu rinalysis with c & spyridium 200 mg po tid prn dysuria to start after sample is obtainedpt educated about orange discolorat ion to urinemonit or ua and consider abx if needed [id number] Jennifer Zaragoza NP [address] [address] 01/06/2024 09:58:30 01/10/2024 11:28:47 Dysuria 63586973 R30.0 UTI ruled outpt with report of dysuria and frequency, states she has not had bowel movement in a few dayssee constipati on01/05 urinalysis with c & s with culture showing no infection dc pyridium 200 mg po tid prnmonitor ua and consider abx if needed Osteoarthr itis of left knee joint 1064480183 44221 M17.12 end stage OA left knee now s/p TKRpt reports ortho visit yesterday and removed suturesste ri strips in place today.nsg to obtain consult info from orthoASA 325 mg bid for dvt prophylaxi s until 02/02fo ortho recsand update with concerns and monitor for infectionP T OT Eval and treatmonit or for pain control Asthenia 96854835 R53.1 PT OT eval and treatmonit or fall risk Abnormal s mall bowel motility 72826696 R19.8 no bm in a few daysmultiv it with iron qdfiber lax 625 mg po qddocusate 100 mg po bidbisacod yl 5 mg po qhs01/05inc rease senna to 2 tabs per daygive mom 30cc todaymonit or [id number] ANA BENJAMIN NP [facility] [address] 01/11/2024 09:00:48 01/19/2024 12:49:58 Abnormal small bowel motility 01680784 R19.8 no bm in a few days [...] qd Add miralax dailyMonit or bowels Dysuria 05804126 R30.0 UTI ruled outpt had reported dysuria and frequency on 01/05 - no complaints today, seems resolved urinalysis with c & s with culture neg01/05 dc pyridium 200 mg po tid prnmonitor sx. Osteoarthr itis of left knee joint 1545057448 68097 M17.12 end stage OA left knee now [...] home Sat. 7/6monitor for pain control Asthenia 81730990 R53.1 PT OT eval and treatSee above, meeting rehab goals, goal home 7/6monitor fall risk [id number] MELISSA SIMON [address] [place] [address] 01/13/2024 11:41:32 01/19/2024 13:26:02 Osteoarthritis of left knee joint 3793363139 46046 M17.12 end stage OA left knee now s/p TKRASA 325 mg bid for dvt prophylaxi sfollow up with ortho outpatient Restless legs 26152713 G 25.81 ropinirole 0.25 mg po qhs Chronic ob structive pulmonary disease 18850562 J41.1 advair 250/50 bid Vertigo 181278858 R42 carrying dxmeclizin e 25 mg po tid prnmonitor for sx and need for further workupfoll ow up outpatient Allergic rhinitis 658052 04 J30.2 appears to be significan t issue for patient at baselineco ntinue out patient medsavoid PO steroid given post op statusmoni tor sx Chronic id iopathic constipation 53299898 K59.04 appears with dysmotilit y disorderma intained onlinzess 290 mg qdmonitor for effectGI eval prn Primary osteoporosis 276 963481 M81.0 fosamax 70 mg q weekcontin ued Headache disorder 570886 009 G44.89 baseline migraine hxon imitrex prnadded to H Gastroesop hageal reflux disease 275988101 K21.9 famotidine 40 mg qdmonitor for sx relief Abnormal s mall bowel motility 29299478 R19.8 Continue:l inzess 290 mg qd for IBSfiber lax 625 mg po qd docusate 100 mg po bid bisacodyl 10 mg po qhs senna 2 tabs qd miralax 17 gn daily Anxiety 35928466 F41.9 contmirtaz apine 22.5 mg po qhsclonaze ana 1 mg po bid prnmonitor Osteoarthritis 830065038 M19.90 now with 2 knee surgeries to [...] Kimble Member ID Guarantor Name 12/28/2023 1 [facility] - DOS ON OR AFTER 2022 - MEDICARE ADVANTAGE [place] REPLACEMENT/ADV ANTAGE - PPO) Maida Mitchell [id number] Maida Mitchell 01/04/2024 1 [facility] - DOS ON OR AFTER 2022 - [place]IC[place]AGE [place]V ANTAGE - PPO) Maida Mitchell [id number] Maida Mitchell 01/06/2024 1 [facility] - DOS ON OR AFTER 2022 - [place]V ANTAGE - PPO) Maida Mitchell [id number] Maida Mitchell 01/11/2024 1 [facility] - DOS ON OR AFTER 2022 - [place]/ADV ANTAGE - PPO) Maida Mitchell [id number] Maida Mitchell 01/13/2024 1 [facility] - DOS ON OR AFTER 2022 - [place]/ADV ANTAGE - PPO) Maida Mitchell [id number] Maida Mitchell Notes Date Note Type Note [...] bid for DVT prophylaxis. She is at [facility] for [facility] and continued care felt to [...] or complaints today. Jennifer Zaragoza, KERLINE [address] [facility], [address], [place], [address], [facility] [employer] [facility] 12/28/2023 13:29:09 01/04/2024 text/html Pt is seen for a n acute rounding visit. She is a 68 yo female admit from hospital after presenting with end stage OA left knee for TKR having failed conservative treatment without complications in hospital on ASA 325 mg bid for DVT prophylaxis. She is at [facility] for rehab and continued care felt to [...] No cva tenderness. Jennifer Zaragoza NP [address] [facility], [address], [place], [address], [facility] [employer] [facility] 01/04/2024 18:17:27 01/06/2024 text/html Pt is [...] and well approximated. Jennifer Zaragoza NP [address] [facility], [address], [place], [address], [facility] [employer] [facility] 01/06/2024 10:22:58 01/11/2024 text/html Pt is [...] does have asthma/COPD). ANA BENJAMIN, KERLINE [address] [facility], [address], [place], [address], [facility] 01/11/2024 13:15:56 01/13/2024 text/html Maida is a 68 yr old female seen today for discharge on 01/14/24. Admitted to [facility] from hospital after presenting with end stage [...] she will be receiving support [facility]. she can be discharge to home with medications, PT/OT and vna services. PMH is significant for OA,anxiety,RLS,gerd ,copd,chronic constipation,vertig o migraine LARA, osteoporosis MELISSA SIMON [address] [facility], [address], [place], [address], [facility] 01/13/2024 17:48:53 OBGyn Episode No OBEpisode recorded.
--- OUTSIDE RECORDS SUMMARY | 2024-10-15 11:53 | XMS_ITS | Encounter Summary ---
Author Organization [employer] Address [address] [facility] [address] [place] [address] Care Team Providers Care Guide Excursion Name Role Phone Amelia Montalvo DO Primary Care Provider [phone] Reason for Visit * Reason Comments Med Refill Encounter Details Date Type Department Care Team ([facility] st Contact Info) Description 12/09/2023 Refill [facility] [address] [place] [address] Amelia Montalvo DO [address] [place] [address] Social History Tobacco Use Types Packs/Day Years [...] EDT Office Visit [facility] [address] [place] [address] Amelia Montalvo DO [address] [place] [address] 11/06/2024 10:00 AM EDT Office Visit [facility] [address] [place] [address] Farhat Guyaris [address] [place] [address] 12/06/2024 1:30 PM EDT Clinical Support [facility] [address] [place] [phone] Mai Bishop RN documented as of this encounter Visit Diagnoses Not on filedocumented in this encounter Care Teams Guide Excursion Relationship Specialty Start Date End Date Amelia Montalvo DO [address] [place] [phone] PCP - General Family Medicine 06/23/12 documented as of this encounter
[2024-10-15 12:42] VITALS: BP 115/55; PULSE 66; RESP 16; TEMP 36.6; O2SAT 94
== END 2024-10-15 12:43 | disposition home or self-care (01) ==
PROVIDERS: Emergency Provider Emergency Medicine; PCP Family Medicine
DX: M79.10 Myalgia, unspecified site (principal); R51.9 Headache, unspecified; R05.9 Cough, unspecified; Z79.899 Other long term (current) drug therapy; Z03.818 Encounter for observation for suspected exposure to other biological agents ruled out
CPT/HCPCS: 0241U; 71046; 80053; 85025; 99282; 99283

== ENCOUNTER → 2024-10-15 09:35 | Outpatient (BNV) | payer OTHER, SELFPAY | PROVIDERS: Emergency Provider Emergency Medicine; PCP Family Medicine; Visit Provider Radiology Diagnostic Radiology | DX: R05.9 Cough, unspecified (principal); R06.02 Shortness of breath | CPT/HCPCS: 71046 ==

== ENCOUNTER 2024-10-23 13:20 | Outpatient (REF) | payer OTHER, SELFPAY ==
--- NOTE | ~2024-10-23 | XR_ITS ---
EXAMINATION: XR CHEST 2 VIEWS HISTORY: persistent cough, COPD, h/o flu COMPARISON: Comparison is made with the prior examination dated 10/15/2024. FINDINGS: PA and lateral views of the chest are submitted. The lungs are mildly hyperinflated, consistent with COPD. The lungs are clear. There is no pleural effusion, pneumothorax, or pulmonary vascular congestion. The heart is normal in size. The aorta is tortuous. There is degenerative disc disease of the spine. XR/XR chest 2V IMPRESSION: COPD. No acute cardiopulmonary abnormality. Electronically signed by: Jeferson Ceballos MD 10/23/2024 01:35 PM EDT
--- OUTSIDE RECORDS SUMMARY | 2024-10-23 16:17 | XMS_ITS | Encounter Summary ---
Author Organization [employer] Address [address] [facility] [address] [place] [address] Care Team Providers Care Geography Professor Name Role Phone CaitieAmelia vargas DO Primary Care Provider [phone] Encounter Details Date Type Department Care Team (Late Contact Info) Description 10/07/2022 Orders Only [facility] PED[facility] [address] [place], [place] [phone] Amelia Kemp LPN Social History Tobacco Use [...] Care Team (Late st Contact Info) Description 11/06/2024 10:00 AM EDT Office Visit [facility] ADULT DENTAL [address] [place], [place] [phone] Cely Guy [address], [place] [phone] 12/06/2024 1:30 PM EDT Clinical Support [facility] MEDICINE [address] [place], [place] [phone] Mai Bishop RN documented as of this encounter Procedures Procedure Name Priority Date/Time Associated Diagnosis Comments CT HEAD WO CONTRAST Routine 10/22/2022 1 0:52 AM EDT documented in this encounter Results * CT Head w/o Contrast (10/22/2022 10:52 AM EDT) Anatomical Region Laterality Modality Head, Neck Computed Tomogra phy 10/22/2022 10:5 2 AM EDT Narrative 11/02/2022 3:00 PM EDT ? [facility] ?[address] ?[place] [address] ? CT Scan Report ? Signed ? Patient: Maida Mitchell I ?MR#: [id number] ?? 71 ? : 1955 ?Acct:[id number] ? Age/Sex: 67 / F ?ADM Date: 10/22/22 ? Loc: HO.CT ? Attending Dr: Igor Landry MD ? Ordering Physician: IGOR LANDRY MD ?? Date of Service: 10/22/22 ?? Procedure(s): CT head/brain wo IV con ?? Accession Number(s): [id number] ? cc: IGOR LANDRY MD ? EXAMINATION: [...] Bouchra Menjivar MD in OV> ? 11/02/22 145 ? DD/ 51 ? TD/TT: ? [employer]: REGINA ? Procedure Note Donotuseinterpreter, Image - 11/02/[address] [address] [address] Scan Report Signed Patient: Maida Mitchell IMR#: [id number] : 1955cct:[id number] Age/Sex: 67 / FADM Date: 10/22/22 Loc: HO.CT Attending Dr: Igor Landry MD Ordering Physician: IGOR LANDRY MD Date of Service: 10/22/22 Procedure(s): CT head/brain wo IV con Accession Number(s): [id number] cc: IGOR LANDRY MD EXAMINATION: CT HEAD [...] in OV> 11/02/22 1457 DD/ 1052 TD/TT: [employer]: REGINA [facility] External Provider IMG CT PROCEDURES Edited Result - Final documented in this encounter Visit Diagnoses Not on filedocumented in this encounter Care Teams Geography Professor Relationship Specialty Start Date End Date Amelia Montalvo DO [address] [place] [id number] PCP - General Family Medicine 06/23/12 documented as of this encounter
--- OUTSIDE RECORDS SUMMARY | 2024-10-23 16:17 | XMS_ITS | Encounter Summary ---
Author Organization [employer] Address [address] [facility] [address] [place] [address] Care Team Providers Care Non Ferrous Material Handler Name Role Phone Amelia Montalvo DO Primary Care Provider + [phone] Reason for Visit * Reason Comments Med Refill Encounter Details Date Type Department Care Team (Late st Contact Info) Description 10/25/2023 Refill [facility] [address] [place] [address] Iram Ascencio FNP Social History Tobacco Use [...] Description 11/06/2024 10:00 AM EDT Office Visit [facility] AD[facility] [address] [place] [address] Cely Guy [address] [place] [address] 12/06/2024 1:30 PM EDT Clinical Support [facility] [address] [place] [address] Mai Bishop RN documented as of this encounter Visit Diagnoses Not on filedocumented in this encounter Care Teams Non Ferrous Material Handler Relationship Specialty Start Date End Date Amelia Montalvo DO [address] [place] [address] PCP - General Family Medicine 06/23/12 documented as of this encounter
--- OUTSIDE RECORDS SUMMARY | 2024-10-23 16:17 | XMS_ITS | Encounter Summary ---
Author Organization [employer] Address [address] [facility] [address] [place] [address] Care Team Providers Care [employer] Hvac R Instructor Name Role Phone Amelia Montalvo DO Primary Care Provider + [phone] Reason for Visit * Reason Onset Date Comments [facility] triage 10/18/2024 Encounter Details Date Type Department Care Team ([facility] st Contact Info) Description 10/18/2024 Telephone [facility] [address] [place] [address] Glenda Sandy RN [facility] triage Social History Tobacco Use Types Packs/Day Years [...] encounter Miscellaneous Notes * Telephone Encounter - Glenda Sandy RN - 10/18/2024 12:16 PM EDT Pt presents to [facility] c/o ongoing fatigue and URI. Pt taken for triage prior to scheduled time of 2 pm. Pt was [place] [facility] [place] Dx. Exac. COPD, sinusitis. CXR unremarkable, new Rx given: Prescriptions: prednisone 20 mg tablet 20 mg PO DAILY 7 Days Qty: 7 0RF doxycycline hyclate 100 mg tablet 100 mg PO BID 7 Days Qty: 14 0RF Pt had previously been seen in [facility] Dx Flu 10/12/24. VSS: Weight 168.8 lbs BP left arm 122/74 RR 20, non labored R/A sat 99% PO temp 98.1 Pt has non productive cough, LS coarse rhonci bilat. bases and RUL. No ALEN noted, able to ambulate w/o diff. And speak in full sentences. Pt stable to wait for appointment for provider eval. . Returned to resp waiting area documented in this encounter Plan of Treatment Upcoming Encounters Date Type Department Care Team (Late st Contact Info) Description 11/06/2024 10:00 AM EDT Office Visit [facility] ADULT DENTAL [address] [place] [address] Brooks Cely [address] [place] [address] 12/06/2024 1:30 PM EDT Clinical Support [facility] MEDICINE [address] [place] [address] Mai Bishop, JAMAAL documented as of this encounter Visit Diagnoses Not on filedocumented in this encounter Additional Health Concerns Assessment Noted Time PHQ-9 Depression Total Score: 18 024 2:12 PM EDT documented as of this encounter Care Teams [employer] H[employer] Instructor Relationship Specialty Start Date End Date Amelia Montalvo DO [address] [place] [address] PCP - General Family Medicine 06/23/12 documented as of this encounter
--- OUTSIDE RECORDS SUMMARY | 2024-10-23 16:17 | XMS_ITS | Clinical Summary ---
Author Organization [employer] Address [address] [place] [address] 7[address] [place] [address] Care Team Providers Care Digital Content Manager Name Role Phone Amelia Montalvo DO Primary Care Provider + [phone] Allergies Active Allergy Reactions Criticality Noted Date [...] at bedtime. 30 tablet 11 023 Active cholecalciferol (Vitamin D-3) 50 MCG (1999 UT) tablet TAKE 1 TABLET BY MOUTH [...] IN THE EVENING 60 tablet 3 Active acetaminophen (Tylenol 8 Hour) 650 MG [...] up to 30 doses. 30 tablet Active predniSONE (Deltasone) 10 MG tablet Take 2 tablets PO daily x 3 days then 1 tablet PO daily x 3 days 9 tablet Active pseudoephedrine (Sudafed) 30 MG tablet Take 1 tablet (30 mg) by mouth every 6 (six) hours if needed for congestion for up to 10 days. 30 tablet 2024 Active benzonatate (Tessalon Perles) 100 MG capsule Take 1 capsule (100 mg) by mouth if needed in the morning, at noon, and at bedtime for cough for up to 10 days. Do not crush or chew. 30 capsule 025 2024 Active albuterol (Ventolin HFA) 108 (90 Base) MCG/ACT inhalerIndication s:Mild intermittent asthma with acute exacerbation INHALE 2 PUFFS BY MOUTH EVERY 4 HOURS NEEDED FOR WHEEZING OR SHORTNESS OF BREATH 18 g 1 025 Active albuterol (2.5 MG/3ML) 0.083% nebulizer solutionIndicatio ns:COPD exacerbation (CMS/HCC) Take 3 mL (2.5 mg) by nebulization every 4 (four) hours if needed for wheezing or shortness of breath. 90 mL 1 025 Active ibuprofen 400 MG tablet Take 1 tablet (400 mg) by mouth every 6 (six) hours if needed for moderate pain or fever for up to 30 doses. 30 tablet 023 2024 Discontinued(R eorder (will not trigger notification to Pharmacy)) albuterol (Ventolin HFA) 108 (90 Base) MCG/ACT inhalerIndication s:Mild intermittent asthma with acute exacerbation INHALE 2 PUFFS BY MOUTH EVERY 4 HOURS NEEDED FOR WHEEZING OR SHORTNESS OF BREATH 18 g 1 024 2024 Discontinued(R eorder (will not trigger notification to Pharmacy)) acetaminophen (Tylenol 8 Hour) 650 MG ER tablet Take 1 tablet (650 mg) by mouth every 8 (eight) hours if needed for mild pain. Do not crush, chew, or split. 60 tablet 3 024 2024 Discontinued(R eorder (will not trigger notification to Pharmacy)) albuterol (2.5 MG/3ML) 0.083% nebulizer solution INHALE [...] eorder (will not trigger notification to Pharmacy)) albuterol (2.5 MG/3ML) 0.083% nebulizer solution INHALE 1 AMPULE USING A NEBULIZER EVERY 8 HOURS 90 mL 1 025 2024 Discontinued(R eorder (will not trigger notification to Pharmacy)) predniSONE (Deltasone) 20 MG tablet Take 2 tablets (40 mg) by mouth Once per day for 5 days. 10 tablet 025 2024 predniSONE (Deltasone) 20 MG tabletIndications :Flu,Acute exacerbation of COPD with asthma (CMS/HCC) Take 1 tablet (20 mg) by mouth 3 times daily for 3 days, THEN 1 tablet (20 mg) 2 times daily for 3 days, THEN 1 tablet (20 mg) Once per day for 3 days. 18 tablet 025 2024 Discontinued(T herapy completed) Hospital, Clinic, or Other Facility Administered Medication Ordered Dose Route Frequency Start Date End Date Status albuterol (2.5 MG/3ML) 0.083% nebulizer solution 2.5 mgIndications:COPD exacerbation (CMS/HCC) 2.5 mg NEBULIZATION Once 10/23/2024 Active Active Problems Problem Noted Date Diagnosed Date Flu 10/18/2024 Assessment & Plan (10/18/2024 1:27 PM EDT): Faint wheezing on exam. No evidence of acute respiratory distress. Suspect asthma/HOST/HOSTESS exacerbation. Symptoms mild. No evidence of dehydration. -Prescribed predniSONE (Deltasone) 20 MG taper. -Supportive care advised. -Isolation recommendations discussed. Acute exacerbation of COPD with asthma Assessment & Plan (10/18/2024 1:25 PM EDT): Faint diffuse wheezing on exam. Suspect acute asthma/HOST/HOSTESS exacerbation. -prescribed predniSONE (Deltasone) 20 MG taper. 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 Referred for stress test and TTE. Per pt to be performed tests this month. -In current evaluation by warehouse man for Atypical chest pain but difficult to [...] Encounters Date Type Department Care Team Description 10/23/2024 11:45 AM EDT Office Visit [facility] [address] [place] [phone] Amelia Montalvo DO COPD exacerbation (CMS/HCC) (Primary Dx); Mild intermittent asthma with acute exacerbation 10/23/2024 Travel 10/18/2024 1:40 PM EDT Office Visit [facility] [address] [place] [address] Cristal Lindsey MD Flu (Primary Dx); Acute exacerbation of COPD with asthma ([facility]) 10/18/2024 Telephone [facility] [address] [place] [address] Glenda Sandy, JAMAAL WIC triage 10/15/2024 8:40 AM EDT Office Visit [facility] [address] [address] Igor Stroud MD Influenza A (Primary Dx); Moderate persistent asthma with acute exacerbation 10/15/[address] [address] Amelia Montalvo DO ER Follow-up; Nurse Triage 10/15/2024 Orders Only [facility] External Provider, [facility] 10/15/2024 Travel 10/12/2024 10:00 AM EDT [facility] [address] [address] Igor Stroud MD Influenza A (Primary Dx) 10/06/2024 Refill [facility] [address] [place] [address] Amelia Montalvo DO 10/03/2024 Telephone [facility] [address] [place] [address] Amelia Montalvo DO 10/03/2024 Refill [facility] [address] [place] [address] Amelia Montalvo DO Chronic migraine without aura without status migrainosus, not intractable 10/01/2024 Refill [facility] [address] [place], [place] [phone] Amelia Montalvo DO Other specified anxiety disorders 09/16/2024 Refill [facility] [address] [place] [address] Amelia Montalvo DO 08/28/2024 Telephone [facility] [address] [place] [address] Amelia Montalvo DO Recall Appt. 08/28/2024 Travel 08/21/2024 Refill [facility] [address] [place] [address] Amelia Montalvo DO Other specified anxiety disorders 07/26/2024 Refill [facility] [address] [place] [address] Amelia Montalvo DO from Last 3 Months [...] Sign Reading Time Taken Comments Blood Pressure 132/78 10/23/2024 12:06 PM EDT Pulse 76 10/23/2024 12:06 PM EDT Temperature 37.1 ??C (98.7 ??F) 10/23/2024 12:06 PM E DT Respiratory Rate 19 10/23/2024 12:06 PM EDT Oxygen Saturation 96% 10/23/2024 12:06 PM EDT Inhaled Oxygen Concentration - - Weight 77.6 kg (171 lb) 10/23/2024 12:06 PM EDT Height 172.7 cm (5' 8 ) 10/23/2024 12:06 PM EDT Body Mass Index 26 10/23/2024 12:06 PM EDT Plan of Treatment Upcoming Encounters Date Type Department Care Team (Late st Contact Info) Description 11/06/2024 10:00 AM EDT Office Visit [facility] [address] [place] [address] Brooks, Cely [address] [place] [address] 12/06/2024 1:30 PM EDT Clinical Support [facility] [address] [place] [address] Mai Bishop, RN Health Maintenance Due Date Last Done Comments CT Colonography 1955 FIT DNA/Cologuard 1955 FIT 1955 FOBT 1955 Sigmoidoscopy 1955 Alcohol/Substance Use Screening 1965 DTaP/Tdap/Td Vaccines (1 - Tdap) 1972 Mammogram 1993 Depression Monitoring 06/13/2024 12/13/2023, 024 Dental Oral Exam 08/26/2024 02/23/2024, , 03/29/2022, Additional history exists SDOH Screening 10/26/2024 10/27/2023 Dental Prophylaxis 11/06/2024 05/07/2024, 0 12/07/2022, 03/29/2022, Additional history exists Depression Screening 12/12/2024 12/13/2023, 12/13/19 Dental X-Ray: Bitewings 02/23/2025 02/23/20 24, 12/07/2022, 03/29/2022, Additional history exists Dental X-Ray: Full Mouth 03/30/2025 03/29/2022, 12/09 Tobacco Screening 10/23/2025 10/23/2024 Colonoscopy 05/31/2029 05/31/2019 Colorectal Cancer Screening 05/31/2029 [...] Procedure Name Priority Date/Time Associated Diagnosis Comments XR CHEST 2 VIEWS STAT 10/23/2024 1:22 PM EDT COPD exacerbation ([facility]) COMPREHENSIVE METABOLIC PANEL Routine 10/15/2024 10:36 AM [...] Routine 10/12/2024 10:32 AM EDT Influenza A PROPHYLAXIS - ADULT Routine 05/07/2024 9 :00 [...] Recently Relevant to Health Maintenance Results * XR Chest 2 Views (10/23/2024 1:22 PM EDT) Only the most recent of2 resultswithin the time period is included. Anatomical Region Laterality Modality Chest Radiographic Veronica ging 10/23/2024 1:22 PM EDT Narrative 10/23/2024 1:38 PM EDT ?[facility] ?[address] ?[place] [address] ?XRay Report ? Signed ? Patient: Maida Mitchell I ?MR#: [id number] ?? 71 ? : 1955 ?Acct:[id number] ? Age/Sex: 69 / F ?ADM Date: 10/23/24 ? Loc: HO.HHCX ? Attending Dr: Amelia Montalvo DO ? Ordering Physician: Amelia Montalvo DO ?? Date of Service: 10/23/24 ?? Procedure(s): XR chest 2V ?? Accession Number(s): [id number] ? cc: Amelia Montalvo DO ? EXAMINATION: ??XR CHEST 2 VIEWS ? HISTORY: persistent cough, COPD, h/o flu ? COMPARISON: Comparison is made with the prior examination dated ?? 10/15/2024. ? FINDINGS: ??PA and lateral views of the chest are submitted. The lungs ?? are mildly hyperinflated, consistent with COPD. The lungs are clear. ? There is no pleural effusion, pneumothorax, or pulmonary vascular ?? congestion. ??The heart is normal in size. The aorta is tortuous. ??There ?? is degenerative disc disease of the spine. ? XR/XR chest 2V ?? IMPRESSION: ?? COPD. No acute cardiopulmonary abnormality. ? Electronically signed by: ??Jeferson Ceballos MD ??10/23/2024 01:35 PM EDT ? Dictated By: ?Jeferson Ceballos MD ? Signed By: ?<Electronically signed by Jeferson Ceballos MD in OV> ?10/23/24 1335 ? DD/ 1322 ? TD/TT: 10/23/24 1329 ? Vice President Diversity: ? Procedure Note Lola, Image - 10/23/[address] [address] XRay Report Signed Patient: Maida Mitchell IMR#: [id number] [birth year] : 1955cct:[id number] Age/Sex: 69 / FADM Date: 10/23/24 [facility] Dr: Amelia Montalvo DO Ordering Physician: Amelia Montalvo DO Date of Service: 10/23/24 Procedure(s): XR chest 2V Accession Number(s): [id number] cc: Amelia Montalvo DO EXAMINATION: XR CHEST 2 VIEWS HISTORY: persistent cough, COPD, h/o flu COMPARISON: Comparison is made with the prior examination dated 10/15/2024. FINDINGS: PA and lateral views of the chest are submitted. The lungs are mildly hyperinflated, consistent with COPD. The lungs are clear. There is no pleural effusion, pneumothorax, or pulmonary vascular congestion. The heart is normal in size. The aorta is tortuous. There is degenerative disc disease of the spine. XR/XR chest 2V IMPRESSION: COPD. No acute cardiopulmonary abnormality. Electronically signed by: Jeferson Ceballos MD 10/23/2024 01:35 PM EDT Dictated By: Jeferson Ceballos MD Signed By: <Electronically signed by Jeferson Ceballos MD in OV> 10/23/24 1335 DD/ 1322 TD/TT: 10/23/24 1329 Vice President Diversity: us Amelia Katia DO IMG XR PROCEDURES Final Resu lt * SARS-CoV-2 RNA, Influenza A/B, and RSV RNA, Ql NAAT (10/15/2024 10:36 AM EDT) Influenza A PCR NEGATIVE Negative [facility] Influenza B PCR NEGATIVE Negative [facility] Resp Syncy Virus RNA Qual PCR NEGATIVE Negative [facility] SARS COV2 PCR NEGATIVE Negative [facility] Comment:All test results mus t [...] use by authorized laboratories.Testing performed on the Vint GeneXpert utilizingreal-time RT-PCR.All SARS CoV2 and positive influenza A/B results arereported to [facility]. 10/15/2024 10:3 6 AM EDT 10/15/2024 10:41 AM EDT Generic External Data Provider LAB MICROBIOLOGY - GENERAL ORDERABLES Final Result [facility] [address] [place] [phone] * (ABNORMAL) Comprehensive Metabolic Panel (10/15/2024 10:36 AM EDT) Sodium 143 135 - 145 mmol/L [facility] Potassium 4.0 3.3 - 5.1 mmol/L [facility] Chloride 108 96 - 108 mmol/L [facility] Carbon Dioxide 28 22 - 29 mmol/L [facility] Anion Gap 11(L) 12 - 20 [facility] Urea Nitrogen (BUN) 14 9 - 16 mg/dL [facility] Creatinine, Serum 0.77 0.5 - 1.4 mg/dL [facility] Creatinine Clr Calc Pharmacy 73.5 [facility] Comment:Provided height and weight: 172.72 cm,78.018 kg.eGFR (calculated from the MDRD study equation) and eCrCl(calculated from the Cockcroft-Gault equation) are based ondifferent parameters and may not yield comparable results.If eCrCl result is absurd, please check patient'sheight/weight. Estimated Glomerular Filt Rate >60 [facility] Comment:Chronic Kidney Disea se: Estimated GFR < 60 mL/min/1.78u0Bqjepi Kidney Disease: Estimated GFR < 15 mL/min/1.73m2 Glucose 85 60 - 115 mg/dL [facility] Calcium 8.7 8.4 - 10.2 mg/dL [facility] Bilirubin, Total 0.2 0.0 - 1.0 mg/dL [facility] Aspartate Amino Transferase 18 5 - 31 U/L [facility] Alanine Aminotransferase 16 0 - 31 U/L [facility] Total Protein 6.2(L) 6.5 - 8.0 g/dL [facility] Albumin Level 3.8 3.5 - 5.0 g/dL [facility] Alkaline Phosphatase 67 39 - 117 U/L [facility] 10/15/2024 10:3 6 AM EDT 10/15/2024 10:41 AM EDT us Generic External Data Provider LAB BLOOD ORDERAB LES Final Result [facility] [address] [place] [phone] * (ABNORMAL) CBC auto differential (10/15/2024 10:35 AM EDT) White Blood Count 5.6 4.8 - 10.8 X10*3/uL [facility] Red Blood Count 4.38 4.20 - 5.50 X10*6/uL [facility] Hemoglobin 11.6(L) 12.0 - 16.0 g/dl [facility] Hematocrit 36.9(L) 37.0 - 47.0 % [facility] Mean Corpuscular Volume 84.2 80.0 - 98.0 fL [facility] Mean Corpuscular Hemoglobin 26.5(L) 27.0 - 33.0 pg [facility] Mean Corpuscular HGB Conc 31.4 31.0 - 35.0 g/dl [facility] Red Cell Distribution Width 14.5 11.0 - 16.0 % [facility] Platelet Count 288 160 - 400 X10*3/uL [facility] Mean Platelet Volume 8.7(L) 9.4 - 12.3 fL [facility] Neutrophils Percent Auto 55.4 45 - 73 % [facility] Imm Gran Pct Auto 0.2 0.0 - 0.4 % [facility] Lymphocytes Percent Auto 31.5 20 - 40 % [facility] Monocytes Percent Auto 12.5(H) 2 - 11 % [facility] Eosinophils Percent Auto 0.2 0 - 4 % [facility] Basophils Percent Auto 0.2 0 - 2 % [facility] NRBC Pct Auto 0.0 0.0 - 0.2 /100WBC [facility] Neutrophils Absolute Auto 3.1 2.0 - 8.3 x10*3/uL [facility] Imm Gran Abs Auto 0.01 0.00 - 0.03 X10*3/uL [facility] Lymphocytes Absolute Auto 1.8 1.2 - 4.9 X10*3/uL [facility] Monocytes Absolute Auto 0.7 0.1 - 1.2 X10*3/uL [facility] Eosinophils Absolute Auto 0.0 0.0 - 0.4 X10*3/uL [facility] Basophils Absolute Auto 0.0 0.0 - 0.2 X10*3/uL [facility] NRBC Abs Auto 0.000 0.0 - 0.012 X10*3/uL [facility] 10/15/2024 10:3 5 AM EDT 10/15/2024 10:41 AM EDT Generic External Data Provider LAB BLOOD ORDERAB LES Final Result Performing Organization Address [facility]/ZIP Co de Phone Number [facility] [address] [place] [phone] * POCT Rapid Influenza B RUIZ ID NOW (10/12/2024 10:32 AM EDT) Influenza B Negative Negative, Indeterminate [facility] QC Media Lot # [id number] [facility] Lot# Expiration Date [id number] [facility] Swab 10/12/2024 10:3 2 AM EDT Igor Stroud MD POINT OF CARE TEST ENTER/EDIT OR DERABLES Final Result Performing Organization Address [facility] Co de Phone Number [facility] [address] [place] [phone] * (ABNORMAL) POCT Rapid Influenza A RUIZ ID NOW (10/12/2024 10:32 AM EDT) Influenza A Positive( A) Negative, Indeterminate [facility] QC Media Lot # [id number] [facility] Lot# Expiration Date [id number] [facility] Swab 10/12/2024 10:3 2 AM EDT Igor Stroud MD POINT OF CARE TEST ENTER/EDIT OR DERABLES Final Result Performing Organization Address [facility] Co de Phone Number [facility] [address] [place] [phone] * POCT Rapid Covid-19 BinaxNOW (10/12/2024 10:32 AM EDT) Rapid COVID Ag Negative QC Media Lot # [id number] Lot# Expiration Date [id number] Nares 10/12/2024 10:3 2 AM EDT Igor Stroud MD POINT OF CARE TEST ENTER/EDIT OR DERABLES Final Result * HEPATITIS C AB W/REFL TO HCV RNA, QN, PCR (01/06/2021 8:12 AM EDT) HEPATITIS C ANTIBODY NON-REACT JULIOCESAR NON-REACT JULIOCESAR [facility] INDEX 0.01 <1.00 [facility] Comment: ?? HCV antibody was non-reactive. There is no laboratory ?? evidence of HCV infection. ?? In most cases, no further action is required. However, if recent HCV exposure is suspected, a test for HCV RNA (test code 15508) is suggested. ?? For additional information please refer to http://education.MONTAJ/faq/OYK06b8 (This link is being provided for informational/ educational purposes only.) ?? 01/06/2021 8:12 AM EDT Amelia Montalvo DO HISTORICAL/NON ORDERABLE LAB S Final Result [facility] [address] * Hm Colonoscopy (05/31/2019 10:01 AM EST) Santos Chu MD HEALTH MAINTENANCE Final Result from Last 3 Months or Most Recently Relevant to Health Maintenance Insurance [employer] (HMO D-SNP) D[facility]AL [facility] Care Teams Digital Content Manager Relationship Specialty Start Date End Date Amelia Montalvo DO [address] [place] [phone] PCP - General Family Medicine 06/23/12
--- OUTSIDE RECORDS SUMMARY | 2024-10-23 16:17 | XMS_ITS | Encounter Summary ---
Author Organization [employer] Address [address] [place] [address] Care Team Providers Care Adhesive Primer Name Role Phone Amelia Montalvo DO Primary Care Provider [phone] Reason for Visit * Reason Onset Date Comments ER Follow-up 10/15/2024 Nurse Triage 10/15/2024 Encounter Details Date Type Department Care Team ([facility] st Contact Info) Description 10/15/2024 Telephone [facility] [address] [place] [address] Amelia Montalvo DO [address] [place] [address] ER Follow-up; Nurse Triage Social History Tobacco Use Types Packs/Day Years [...] encounter Miscellaneous Notes * Telephone Encounter - Shannan Stock RN - 10/18/2024 10:55 AM EDT RE: Date: 10/15/24 [place] [facility] [place] for: COPD Symptomatic Yes Called pt. Back via [employer] luggage liner from call 3 days ago trying to return pt. Call with no response aKjal [phone]. No answer. Junior Bookkeeper left message on pt voicemail to call back [facility] nurses at [phone]. Junior Bookkeeper called pt. Back x2. Pt states that she was seen in walk in at [facility] and was given medication for her COPD but was still not feeling well. Pt then went to [facility] [place] on 10/15/24 because she was not feeling better and was put on Antibiotics. Pt. States XRAYS were all Negative but showed Exacerbated COPD. Pt states she is still not feeling better. Pt. COPD is causing her to have SOB and she has a productive cough- green. Pt. Feels like she has a fever. Advised pt. To come into [facility] walk in thisafternoon after 1pm and before 4pm. Advised that she may not get seen right away but to come in around 130pm. Pt. Agrees with plan. Protocol Used: COPD Oxygen Monitoring and Hypoxia (Adult) Protocol-Based Disposition: See in Office or Video Visit Today Positive Triage Questions: * Mild difficulty breathing (e.g., minimal/no SOB at rest, SOB with walking) and worse than normal * Coughing up green sputum * Fever present > 3 days (72 hours) * Patient wants to be seen * All higher-acuity triage questions were negative * Telephone Encounter - Mamadou Schmidt - 10/18/2024 9:34 AM EDT Tc from pt returning gall regarding prior message. Contact pt at [phone] * Telephone Encounter - Shannan Stock RN - 10/15/2024 3:53 PM EDT Called pt. Via [employer] luggage liner [phone] [place]. No answer. Junior Bookkeeper left message for pt. To please call back [facility] nurses and if she needs to be seen that she can come into [facility] walk in today until 730pm. Called pt. X2. No answer. Junior Bookkeeper did not leave second message. RE: Date: 10/15/24 Hospital: [facility] Seen for: COPD Symptomatic Yes * Telephone Encounter - Cely Huffman - 10/15/2024 3:46 PM EDT Tc from pt returning call. Contact pt at [phone] (wallisian) * Telephone Encounter - Taty Calloway RN - 10/15/2024 3:31 PM EDT Triage call with [facility] [place]isian Intertpreter [place] [id number]. Pt didn't answer x2. Left voice messageto call [facility] triage line at [phone]. Pt was seen [facility] ED today and has apt with PCP for follow up tomorrow 10/16/24 * Telephone Encounter - Mamadou Schmidt - 10/15/2024 3:14 PM EDT Patient calling to report ED visit on : Date: 10/15/24 Hospital: [facility] Seen for: COPD Symptomatic Yes *if yes message should go to Triage Patient advised will forward to team nurse for follow up Contact pt at [phone] documented in this encounter Plan of Treatment Upcoming Encounters Date Type Department Care Team (Late st Contact Info) Description 11/06/2024 10:00 AM EDT Office Visit [facility] [address] [place] [address] Cely Guy [address] [place] [address] 12/06/2024 1:30 PM EDT Clinical Support [facility] [address] [place] [address] Mai Bishop RN documented as of this encounter Visit Diagnoses Not on filedocumented in this encounter Additional Health Concerns Assessment Noted Time PHQ-9 Depression Total Score: 18 024 2:12 PM EDT documented as of this encounter Care Teams Adhesive Primer Relationship Specialty Start Date End Date Amelia Montalvo DO [address] [place] [address] PCP - General Family Medicine 06/23/12 documented as of this encounter
--- OUTSIDE RECORDS SUMMARY | 2024-10-23 16:17 | XMS_ITS | Encounter Summary ---
Author Organization [employer] [facility] Address [address] [place] [address] Care Team Providers Care Mounter Sousaphones Name Role Phone Amelia Montalvo DO Primary Care Provider [phone] Encounter Details Date Type Department Care Team (Latest Contact Info) Description 06/04/2020 Abstract [facility] CONVERSIONS Dental, [...] Description 11/06/2024 10:00 AM EDT Office Visit [facility] ADULT DENT[facility] [address] [place] [address] Cely Guy [address] [place] [address] 12/06/2024 1:30 PM EDT Clinical Support [facility] [address] [place] [address] Mai Bishop RN documented as of this encounter Visit Diagnoses Not on filedocumented in this encounter Care Teams Mounter Sousaphones Relationship Specialty Start Date End Date Amelia Montalvo DO [address] [place] [address] PCP - General Family Medicine 06/23/12 documented as of this encounter
--- OUTSIDE RECORDS SUMMARY | 2024-10-23 16:17 | XMS_ITS | Data Portability ---
Author Organization [facility] [employer] Address [address] [place] [address] Care Team Providers Care Child Day Care Provider Name Role Phone HIM [facility] OTHER [facility] Primary Care Provider [phone] Assessment Encounter Date Assessment Date Assessment LastModified by Organization Details LastModified Time 07/28/2023 07/28/2023 I provided real -time medical direction via phone for this encounter, and was available for additional phone based assistance as needed. I have reviewed and agree with the Assessment and Plan as documented by the Precision Mechanical Instrument Maker. We discussed the diagnostic uncertainty of home [...] verbalized understanding of instructions to the medic Not available 07/29/2023 00:10:23 04/11/2024 04/11/2024 As noted, we wer e called to see this patient regarding concerns of chest tightness and increased wob. Evaluation in the field was performed by my linter operator colleague, as noted above, I provided real-time [...] worsening serious symptoms, particularlyworsening shortness of breath Not available 04/11/2024 18:52:12 Plan of Treatment Reminders Order Date Submit Date Provider Last Modified By Organization Details Last Modified Time Details Appointments None recorded. Lab influenza virus A + B and SARS CoV 2 (COVID-19) and RSV RNA panel, AKASH+probe, respiratory specimen 2023 CADOGAN [facility] (Centralized Electronic Ordering - All Locations), Patient Can Go To The Location Of Their Choice, [id number] 04:09:28 rapid SARS CoV 2 Ag, QL IA, respiratory specimen 2023 024 [email or web address] 0 [facility], [address] [place] [address], [id number] 12:36:39 rapid flu (A+B) 2023 024 [email or web address] 0 [facility], [address] [place] [address], [id number] 12:36:41 Referral None recorded. Procedures None recorded. Surgeries None recorded. Imaging None recorded. Medication Orders prednisone 20 mg tablet 2023 [email or web address] [facility], [address] [place] [address], [id number], 16:11:44 prednisone 20 mg tablet 2023 [facility], [address] [place] [address], [id number], 4 12:49:19 albuterol sulfate 2.5 mg/3 mL (0.083 %) solution for nebulizatio n 2023 [facility], [address] [place] [address], [id number], 4 12:49:19 Zithromax Z-Thomas 250 mg tablet 2023 024 [facility], [address] [place] [address], [id number], 4 12:26:06 Mucinex DM 30 mg-600 mg tablet,exte nded release 12 hr 2023 024 [facility], [address] [place] [address], [id number], 4 11:00:00 Patient TargetsNo targets recorded. Patient InstructionsNo instructions recorded. Reason for Referral None Reported. Results Created Date Observation Date Name Description Value Unit Range Abnormal Flag Note LastModifiedBy Organization Detail LastModifiedTime 07/28/1907/28/2023 COVID -19, RSV, FLU A/B PCR covid-19 PCR specimen source NASAL Not Available [facility] (Centralized Electronic Ordering - All Locations) Patient Can Go To The Location Of Their Choice, [id number] 07/29/2023 04:09:28 07/28/1907/29/2023 COVID -19, RSV, FLU [...] Go To The Location Of Their Choice, [id number] 07/29/2023 04:09:28 07/28/1907/29/2023 COVID -19, RSV, FLU [...] ng. Resul t repor pilar to the [facility]. All test resul ts must be corre lated with clini cynthia findi ngs. This test has been autho rized by the FDA under an Emerg ency Use Autho rizat ion (EUA) for use by autho rized labor atori es. Testi ng perfo rmed on the CepSnipd id GeneX pert utili zing real- time RT-PC R. Not Available [facility] (Centralized Electronic Ordering - All Locations) Patient Can Go To The Location Of Their Choice, 07/29/2023 04:09:28 07/28/19 24 07/28/2023 rapid flu (A+B) Flu negati ve Not Available [facility] [address] [place] [address], [id number] 07/28/2023 12:36:12 07/28/19 24 07/28/2023 rapid SARS CoV 2 Ag, QL IA, respi rator y speci men rapid SARS CoV 2 Ag, QL IA, respiratory specimen negati ve Not Available [facility] [address] [place] [address], [id number] 07/28/2023 12:36:04 Result Notes None recorded. Medical Equipment None Reported. Allergies Allergen ID Allergen Name Allergen Category Reaction Reaction Severity Criticality Documentation Date Start Date Code Code System Note Provider Name and Address Organization Details Recorded Time 4376 vancomyci n medicatio n Not available Not available Not available 07/28/2023 81594 RxNorm Not Available [facility] - production 4 03:35:06 4377 Vaccine product containin g only Clostridi um tetani antigen (medicina l product) medicatio n Not available Not available Not available 07/28/2023 44042 2002 SNOMED Janette Nice MD [address] [place] [address],[address], [place], [phone], [place] [facility] 4 12:27:09 Medications Name Sig Start Date Stop Date Status Note LastModified by Organization Details LastModified Time medbox status USE DIRECTED active Not Available Not Available No t Available pulse oximet airial py0714 USE FOR SHORTNESS OF BREATH OR FOR [...] mm[Hg] 138 mm[Hg] 86 mm[Hg] Not Available [employer] 4 12:42:06 Date Recorded Oxygen saturation Oxygen saturation in Arterial blood by Pulse oximetry Heart rate Respiratory rate Body temperature Systolic blood pressure Diastolic blood pressure Provider Name and Address Organization Details Last Updated DateTime 4 99 % 99 % 74 /min 16 /min 98.1 [degF] 126 mm[Hg] 74 mm[Hg] Not Available [employer] 4 16:47:25 Date Recorded Body weight Oxygen saturation Oxygen saturation in Arterial blood by Pulse oximetry Body height Body temperature Respiratory rate Heart rate Systolic blood pressure Diastolic blood pressure Provider Name and Address Organization Details Last Updated DateTime 4 24313.2 64 g 97 % 97 % 172.72 cm 97.7 [degF] 17 /min 97 /min 120 mm[Hg] 90 mm[Hg] Not Available [facility] - production 12:21:43 Date Recorded Body temperature Heart rate Oxygen saturation Oxygen saturation in Arterial blood by Pulse oximetry Systolic blood pressure Diastolic blood pressure Provider Name and Address Organization Details Last Updated DateTime 4 98.1 [degF] 77 /min 98 % 98 % 138 mm[Hg] 94 mm[Hg] Not Available [employer] - production 4 16:07:34 Social History None recorded. Functional Status None recorded. Mental Status None recorded. Family History Nothing Reported. Medical History No medical history recorded. Gynecological HistoryNo gynecological history recorded. Obstetrics History GPAL:G 0 P 0 0 0 0 Past Encounters Encounter ID Performer Location Encounter Start Date Encounter Closed Date Diagnosis/Indication Diagnosis SNOMED-CT Code Diagnosis ICD10 Code Diagnosis Note [id number] Janette Nice MD [facility] [address] [place] [phone] 07/28/2023 12:22:19 07/31/2023 13:34:03 Upper respiratory infection 69913482 J06.9 Likely viral. Advised we will call [...] afebrile without color nasal discharge or sputum [id number] Fortino Guzman MD [facility] [address] [place] [phone] 08/08/2023 16:47:19 08/09/2023 11:01:47 Viral upper respiratory tract infection 969037793 J06.9 Acute bronchitis 3570434 2 J20.9 This 77-year-ol d male has had congestion and a cough for almost a month. Mucinex DM hasn't been effective. I ordered a Z-Thomas. He will follow-up with his PCP for any persistent symptoms. The patient agreed with this plan. [id number] Lissy San MD [facility] - [facility] [phone] 01/24/2024 12:21:41 01/24/2024 18:25:34 Cough 45244680 R05.9 68 year old female with a [...] assessment and plan as documented by the linter operator. I provided real-time medical direction for this encounter and was immediatel y available to provide additional phone-base d assistance as needed. We discussed the diagnostic uncertaint y of home visits and associated risks. We discussed the need to seek care urgently/e mergently in the setting of any new or worsening symptoms. [id number] Jeet Stovall MD [facility] [address] [place] [phone] 04/11/2024 16:07:31 04/11/2024 23:08:50 Acute exacerbation of chronic obstructive pulmonary disease 865821192 J44.1 Health Concerns Section Related Observation LastModified by Organization Detai ls LastModified Time None Recorded Concern Status LastModified by Organization Details LastModified Time None Recorded Advance Directives Directive None Recorded Payers Encounter Date Sequence Insurance Name Policy Number Policy Kimble Covered Member ID Kimble Member ID Guarantor Name 07/28/2023 1 [facility] - DOS ON OR AFTER 2022 - DUAL ELIGIBLE - [facility] OPT[facility] AND ONE CARE (MEDICARE REPLACEMENT/ADV ANTAGE - HMO) Maida Mitchell [id number] Maida Mitchell 08/08/2023 1 [facility] - DOS ON OR AFTER 2022 - DUAL ELIGIBLE - [facility] OPTIONS AND ONE CARE (MEDICARE REPLACEMENT/ADV ANTAGE - HMO) Maida Mitchell [id number] Maida Mitchell 01/24/2024 1 [facility] - DOS ON OR AFTER 2022 - DUAL ELIGIBLE - [facility] OPT[facility] AND ONE CARE (MEDICARE REPLACEMENT/ADV ANTAGE - HMO) Maida Mitchell [id number] Maida Mitchell 04/11/2024 1 [facility] - DOS ON OR AFTER 2022 - DUAL ELIGIBLE - [facility] AND ONE CARE (MEDICARE REPLACEMENT/ADV ANTAGE - HMO) Maida Mitchell [id number] Maida Mitchell Notes Date Note Type Note [...] Weakness/Lethargy, Headache, Asthma, COPDPMH: COPD/AsthmaAllergie s: VancomycinComments: Humanities Professor verified the member's name//address and phone number [...] ................... ................... ................... ................... ................... ................... ........ Precision Mechanical Instrument Maker Note From Humza Rabago: Encountered patient conscious, [...] and Covid swaps performed, both resulted negative, [facility] advised. Skin warm, dry, and of appropriate color for ethnicity. Head and neck, free of trauma and edema. -JVD. Breath sounds present and clear and left bilaterally, right breath sounds exhibit fine rails in the upper and lower lobes. Abdomen soft, non-tender non-distended. Extremities is free of trauma and edema. [facility] contacted: orders for PCR and orthostatic vital science performed results reported to [facility]. PCR swab to be taken to [facility] laboratory. [facility] to write prescription for medication regimen at patient? s pharmacy of choice. Red flags discussed with patient, patient urged to seek further medical attention. Should she develop priority symptoms, such as chest pain, syncope, fevers, acute shortness of breath or changes in vision. Patient expresses understanding and would like to remain home at this time. Precision Mechanical Instrument Maker Allergies: Vancomycin ................... ................... ................... ................... ................... [...] dizziness during the exam Janette Nice MD [address] [place] [address],[address], [place], [phone], [facility] 07/29/2023 00:10:48 08/08/2023 text/html CRC Nurse Triage Notes (Demetra Romero): Reason For Request: sob Chief Complaints: Shortness of Breath/Dyspnea PMH: COPD/Asthma Allergies: Vancomycin Comments: Verified identity/ / address Call completed with picking supervisor Member is a 68 yr old female, J2EE DEVELOPER calling for member with increased weakness and sob for over a week. Per J2EE DEVELOPER , [facility] went out on 07/28. Member was found to be Negative per PCR and mucinex sent . Per member is taking medication. Member is not on home , but has neb . Member dry cough, no wheezing when breathing Fortino Guzman MD [address] [facility] [address], [place], [phone], [employer] 08/08/2023 17:01:14 01/24/2024 text/html HPI: Member had [...] No further information needed to process visit. Precision Mechanical Instrument Maker POC Test Results from Yared Saenz - ALS Rapid COVID antigen (12:49:53) COVID: - ................... ................... ................... ................... ................... ................... ................... ........ Precision Mechanical Instrument Maker Note From Yared Saenz: [facility] dispatched for a 68 YO F complaining [...] prescribed. PT still drinking plenty of fluids. [facility] performs rapid PCR covid test which is negative. PT denies takin any OTC medication for the pain. [facility] contacts PT [facility] who recommends fluids and rest at home. Believes this to be a viral common cold and to let it run its course. [facility] also recommends to follow up with GI doctor about any recent changes with her eating changes or pain levels. [facility] explains to pt that if she experiences any sudden onset SOB, chest pain or sudden N/v that she should contact [facility] for a higher level of care. ................... ................... ................... ................... ................... ................... ................... ........ Disposition: Fulfilled Lissy San MD [address], [place], [address], [facility] 01/24/2024 13:37:22 04/11/2024 text/html CRC Nurse Triage Notes (Demetra Romero): Reason For Request: PT reporting chest tightness + and some shortness of breath Chief Complaints: Shortness of Breath/Dyspnea PMH: COPD/Asthma Allergies: Vancomycin Comments: Humanities Professor verified the member's name//address and phone number. Member is a 68 yr old yakut female , a/o3 PMH >ASthma / copd [...] ................... ................... ................... ................... ................... ................... ........ Precision Mechanical Instrument Maker Note From Ayo Tomlin: Dispatched for evaluation of a 68 y/o female, Ethiopian speaking only, complaining and requesting an evaluation of shortness of breath and tightness in chest. Upon arrival to pt apartment, pt ambulatory waiting for providers at door. Pt sat on couch and assessment performed, vital signs obtained. Language line utilized due to pt speaking Ethiopian only, with pt and providers able to communicate in short sentences in Albanian. Assessment found CAOX4, airway open and patent, [...] confirmed pt allergies and pharmacy and contacted [facility]. [facility] ordered Duoneb treatment and to call back after treatment completed with further assessment. Duoneb administered with pt stating improvement in symptoms upon completion, lung sounds clear in all corn[place], pt work of breathing noted to be improved, pt breathing slower and with less effort. [facility] contacted with update, [facility] ordering second duoneb and 40mg prednisone, with [facility] sending prednisone prescription to pt pharmacy. Providers administered 40mg prednisone and began duoneb treatment. Red flags discussed. Providers then left the residence. All times approximate. ................... ................... ................... ................... ................... ................... ................... ........ Disposition: Fulfilled Jeet Stovall MD [address], [place], [address], [facility] 04/11/2024 18:52:26 OBGyn Episode No OBEpisode recorded.
--- OUTSIDE RECORDS SUMMARY | 2024-10-23 16:17 | XMS_ITS | Encounter Summary ---
Author Organization [facility] Address [address] [facility] [address] [place] [address] Care Team Providers Care Machine Setter Automatic Name Role Phone Amelia Montalvo DO Primary Care Provider [phone] Reason for Visit * Reason Onset Date Comments Pre-op clearance notes 08/26/2023 Encounter Details Date Type Department Care Team (Late st Contact Info) Description 08/26/[address] [facility] [address] [place] [address] Amelia Montalvo DO [address] [place] [address] Pre-op clearance notes Social History Tobacco Use [...] 08/15 and it can be faxed to [phone] documented in this encounter Plan of Treatment Upcoming Encounters Date Type Department Care Team (Late st Contact Info) Description 11/06/2024 10:00 AM EDT Office Visit [facility] ADULT DENTAL [address] [place] [address] Cely Guy [address] [place] [address] 12/06/2024 1:30 PM EDT Clinical Support [facility] [address] [place] [address] Mai Bishop, JAMAAL documented as of this encounter Visit Diagnoses Not on filedocumented in this encounter Care Teams Machine Setter Automatic Relationship Specialty Start Date End Date Amelia Montalvo DO [address] [place] [address] PCP - General Family Medicine 06/23/12 documented as of this encounter
--- OUTSIDE RECORDS SUMMARY | 2024-10-23 16:17 | XMS_ITS | Encounter Summary ---
Author Organization [facility] Address [address] [facility] [address] [place] [address] Care Team Providers Care Brass And Wind Instrument Repairer Name Role Phone Amelia Montalvo DO Primary Care Provider [phone] Encounter Details Date Type Department Care Team (Latest Contact Info) Description 03/29/2022 Abstract [facility] CONVERSIONS Dental, Provider, DDS Social History [...] Description 11/06/2024 10:00 AM EDT Office Visit [facility] ADULT DENTAL [address] [place] [address] Cely Guy [address] [place] [address] 12/06/2024 1:30 PM EDT Clinical Support [facility] MEDICINE [address] [place] [address] Mai Bishop RN documented as of this encounter Visit Diagnoses Not on filedocumented in this encounter Care Teams Brass And Wind Instrument Repairer Relationship Specialty Start Date End Date Amelia Montalvo DO [address] [place] [address] PCP - General Family Medicine 06/23/12 documented as of this encounter
--- OUTSIDE RECORDS SUMMARY | 2024-10-23 16:17 | XMS_ITS | Encounter Summary ---
Author Organization [employer] Address [address] [facility] [address] [place] [address] Care Team Providers Care Diamond Powder Mixer Name Role Phone Amelia Montalvo DO Primary Care Provider [phone] Reason for Visit * Reason Comments Med Refill Encounter Details Date Type Department Care Team ([facility] st Contact Info) Description 12/09/2023 Refill [facility] MEDICINE [address] [place] [address] Amelia Montalvo DO [address] [place] [address] Social History Tobacco Use Types Packs/Day Years [...] Description 11/06/2024 10:00 AM EDT Office Visit [facility] ADULT DENTAL [address] [place] [address] Cely Guy [address] [place] [address] 12/06/2024 1:30 PM EDT Clinical Support [facility] MEDICINE [address] [place] [address] Mia Bishop RN documented as of this encounter Visit Diagnoses Not on filedocumented in this encounter Care Teams Diamond Powder Mixer Relationship Specialty Start Date End Date Amelia Montalvo DO [address] [place] [id number] PCP - General Family Medicine 06/23/12 documented as of this encounter
--- OUTSIDE RECORDS SUMMARY | 2024-10-23 16:17 | XMS_ITS | Encounter Summary ---
Author Organization [facility] Address [address] [facility] [address] [place] [address] Care Team Providers Care Assistant City Attorney Name Role Phone Sintia Montalvonifer Primary Care Provider [phone] Encounter Details Date Type Department Care Team (Late st Contact Info) Description 11/04/2022 Abstract [facility] MEDICINE [address] [place] [id number] Amelia Montalvo DO [address] [place] [address] Social History Tobacco Use Types Packs/Day Years [...] Description 11/06/2024 10:00 AM EDT Office Visit [facility] ADULT DENTAL [address] [place] [address] Cely Guy [address] [place] [address] 12/06/2024 1:30 PM EDT Clinical Support [facility] MEDICINE [address] [place] [address] Mai Bishop, JAMAAL documented as of this encounter Visit Diagnoses Not on filedocumented in this encounter Care Teams Assistant City Attorney Relationship Specialty Start Date End Date Amelia Montalvo DO [address] [place] [address] PCP - General Family Medicine 06/23/12 documented as of this encounter
--- OUTSIDE RECORDS SUMMARY | 2024-10-23 16:17 | XMS_ITS | Encounter Summary ---
Author Organization [employer] Address [address] [facility] 7t [place] [address] Care Team Providers Care Feeder Worker Power Unit Operator Name Role Phone Amelia Montalvo DO Primary Care Provider +[phone] Reason for Visit * Reason Comments Cough Seen [facility] ED 10/16/24Dx : Exac. COPD, sinusitis- rx btx and prednisoneSeen [facility] 10/12/24 and 10/15/24 Flu A Encounter Details Date Type Department Care Team ([facility] st Contact Info) Description 10/18/2024 1:40 PM EDT Office Visit [facility] [address] [place] [address] Cristal Lindsey MD [address] [place] [address] Flu (Primary Dx); Acute exacerbation of COPD with asthma ([facility]) Social History Tobacco Use Types Packs/Day Years [...] Sign Reading Time Taken Comments Blood Pressure 122/74 10/18/2024 12:02 PM EDT Pulse 90 10/18/2024 12:02 PM EDT Temperature 36.7 ??C (98.1 ??F) 10/18/2024 1 2:02 PM EDT Respiratory Rate 20 10/18/2024 12:0 2 PM EDT Oxygen Saturation 99% 10/18/2024 12: 02 PM EDT Inhaled Oxygen Concentration - - Weight 76.6 kg (168 lb 12.8 oz) 025 12:02 PM EDT Height - - Body Mass Index 25.67 10/12/2024 9:58 AM EDT documented in this encounter Progress Notes * Sreedhar Langford - 10/18/2024 1:40 PM EDT Subjective Patient ID: Maida Mitchell is a 69 y.o. female with past medical history of chronic pain, COPD, asthma, fibromyalgia, osteoarthritis, and anxiety who presents to walk in clinic for cough. Seen in Walk In Center 10/12/24: Dx Flu A. Prescribed Prednisone 20 MG, Acetaminophen and ibuprofen. Seen in Walk In Center 10/15/24: Dx Flu A and asthma exacerbation. Using Albuterol HFA 2x/day, albuterol neb 2x/day , Fluticasone-Salmeterol 250-50 MCG/ACT aerosol powder, Accolate. Ordered CXR and encouraged to go to ED. Seen at [facility] ED 10/15/24. Dx: COPD, sinusitis- unremarkable CXR. Rx: prednisone 20 mg, doxycycline hyclate 100 mg. Presents for evaluation of follow up on a URI. Symptoms include cough and shortness of breath. Onset of symptoms was 7 days ago, gradually worsening since that time. Associated negative symptoms include sore throat, nausea, vomiting, and diarrhea. Objective Vitals: 10/18/24 1202 BP: 122/74 BP Location: Right arm Patient Position: Sitting BP Cuff Size: Adult Pulse: 90 Resp: 20 Temp: 98.1 ??F (36.7 ??C) TempSrc: Oral SpO2: 99% Weight: 168 lb 12.8 oz (76.6 kg) Physical Exam Constitutional: Appearance: Normal appearance. HENT: Right Ear: Tympanic membrane normal. Cardiovascular: Rate and Rhythm: Normal rate and regular rhythm. Heart sounds: Normal heart sounds. Pulmonary: Effort: Pulmonary effort is normal. Breath sounds: Wheezing (faint diffuse) present. Musculoskeletal: Cervical back: Normal range of motion and neck supple. Lymphadenopathy: Cervical: No cervical adenopathy. Neurological: General: No focal deficit present. Mental Status: She is alert. Psychiatric: Behavior: Behavior normal. No visits with results within 2 Day(s) from this visit. Latest known visit with results is: Orders Only on 10/15/2024 Component Date Value Ref Range Status White Blood Count 10/15/2024 5.6 4.8 - 10.8 X10*3/uL Final Red Blood Count 10/15/2024 4.38 4.20 - 5.50 X10*6/uL Final Hemoglobin 10/15/2024 11.6 (L) 12.0 - 16.0 g/dl Final Hematocrit 10/15/2024 36.9 (L) 37.0 - 47.0 % Final Mean Corpuscular Volume 10/15/2024 84.2 80.0 - 98.0 fL Final Mean Corpuscular Hemoglobin 10/15/2024 26.5 (L) 27.0 - 33.0 pg Final Mean Corpuscular HGB Conc 10/15/2024 31.4 31.0 - 35.0 g/dl Final Red Cell Distribution Width 10/15/2024 14.5 11.0 - 16.0 % Final Platelet Count 10/15/2024 288 160 - 400 X10*3/uL Final Mean Platelet Volume 10/15/2024 8.7 (L) 9.4 - 12.3 fL Final Neutrophils Percent Auto 10/15/2024 55.4 45 - 73 % Final Imm Gran Pct Auto 10/15/2024 0.2 0.0 - 0.4 % Final Lymphocytes Percent Auto 10/15/2024 31.5 20 - 40 % Final Monocytes Percent Auto 10/15/2024 12.5 (H) 2 - 11 % Final Eosinophils Percent Auto 10/15/2024 0.2 0 - 4 % Final Basophils Percent Auto 10/15/2024 0.2 0 - 2 % Final NRBC Pct Auto 10/15/2024 0.0 0.0 - 0.2 /100WBC Final Neutrophils Absolute Auto 10/15/2024 3.1 2.0 - 8.3 x10*3/uL Final Imm Gran Abs Auto 10/15/2024 0.01 0.00 - 0.03 X10*3/uL Final Lymphocytes Absolute Auto 10/15/2024 1.8 1.2 - 4.9 X10*3/uL Final Monocytes Absolute Auto 10/15/2024 0.7 0.1 - 1.2 X10*3/uL Final Eosinophils Absolute Auto 10/15/2024 0.0 0.0 - 0.4 X10*3/uL Final Basophils Absolute Auto 10/15/2024 0.0 0.0 - 0.2 X10*3/uL Final NRBC Abs Auto 10/15/2024 0.000 0.0 - 0.012 X10*3/uL Final Sodium 10/15/2024 143 135 - 145 mmol/L Final Potassium 10/15/2024 4.0 3.3 - 5.1 mmol/L Final Chloride 10/15/2024 108 96 - 108 mmol/L Final Carbon Dioxide 10/15/2024 28 22 - 29 mmol/L Final Anion Gap 10/15/2024 11 (L) 12 - 20 Final Urea Nitrogen (BUN) 10/15/2024 14 9 - 16 mg/dL Final Creatinine, Serum 10/15/2024 0.77 0.5 - 1.4 mg/dL Final Creatinine Clr Calc Pharmacy 10/15/2024 73.5 Final Provided height and weight: 172.72 cm,78.018 kg.eGFR (calculated from the MDRD study equation) and eCrCl(calculated from the Cockcroft-Gault equation) are based ondifferent parameters and may not yield comparable results.If eCrCl result is absurd, please check patient'sheight/weight. Estimated Glomerular Filt Rate 10/15/2024 >60 Final Chronic Kidney Disease: Estimated GFR < 60 mL/min/1.88v2Dcjezk Kidney Disease: Estimated GFR < 15 mL/min/1.73m2 Glucose 10/15/2024 85 60 - 115 mg/dL Final Calcium 10/15/2024 8.7 8.4 - 10.2 mg/dL Final Bilirubin, Total 10/15/2024 0.2 0.0 - 1.0 mg/dL Final Aspartate Amino Transferase 10/15/2024 18 5 - 31 U/L Final Alanine Aminotransferase 10/15/2024 16 0 - 31 U/L Final Total Protein 10/15/2024 6.2 (L) 6.5 - 8.0 g/dL Final Albumin Level 10/15/2024 3.8 3.5 - 5.0 g/dL Final Alkaline Phosphatase 10/15/2024 67 39 - 117 U/L Final Influenza A PCR 10/15/2024 NEGATIVE Negative Final Influenza B PCR 10/15/2024 NEGATIVE Negative Final Resp Syncy Virus RNA Qual PCR 10/15/2024 NEGATIVE Negative Final SARS COV2 PCR 10/15/2024 NEGATIVE Negative Final All test results must be correlated with clinical findings.Negative results do not preclude SARS-CoV2, influenza Avirus, influenza B virus and/or RSV infectionand should not be used as the sole basisfor treatment orother patient management decisions. Negative results must becombined with clinical o bservations, patient history, andepidemiological information.This test has not been evaluated for monitoring treatment ofinfection.This test has been authorized by the FDA under an EmergencyUse Authorization (EUA) for use by authorized laboratories.Testing performed on the [employer] greal-time RT-PCR.All SARS CoV2 and positive influenza A/B results arereported to [facility]. Problem List Items Addressed This Visit Flu - Primary Faint wheezing on exam. No evidence of acute respiratory distress. 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 No evidence of dehydration. -Prescribed predniSONE (Deltasone) 20 MG taper. -Supportive care advised. -Isolation recommendations discussed. Relevant Medications predniSONE (Deltasone) 20 MG tablet Acute exacerbation of COPD with asthma ([facility]) Faint diffuse wheezing on exam. 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 -prescribed predniSONE (Deltasone) 20 MG taper. Relevant Medications predniSONE (Deltasone) 20 MG tablet -No evidence of acute disease process. Suspect Asthma/COPD exacerbation due to underlying influenzaA. Symptoms mild. -Will treat with short course steroids. -ER precautions discussed. -Seek medical attention for worsening symptoms. I, Sreedhar Langford, am serving as a scribe to document services personally performed by Dr. Henry, based on the patient's response to questions by provider and providers statements to me. documented in this encounter Miscellaneous Notes * Assessment & Plan Note - Sreedhar Langford - 10/18/2024 1:27 PM EDTAssociated Problem(s): Flu Faint wheezing on exam. No evidence of acute respiratory distress. 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 No evidence of dehydration. -Prescribed predniSONE (Deltasone) 20 MG taper. -Supportive care advised. -Isolation recommendations discussed. * Assessment & Plan Note - Sreedhar Langford - 10/18/2024 1:24 PM EDTAssociated Problem(s): Acute exacerbation of COPD with asthma ([facility]) Faint diffuse wheezing on exam. 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 -prescribed predniSONE (Deltasone) 20 MG taper. documented in this encounter Plan of Treatment Upcoming Encounters Date Type Department Care Team (Late st Contact Info) Description 11/06/2024 10:00 AM EDT Office Visit [facility] [address] [place] [address] Cely Guy [address] [place] [address] 12/06/2024 1:30 PM EDT Clinical Support [facility] [address] [place] [address] Mai Bishop RN documented as of this encounter Visit Diagnoses Diagnosis Flu- Primary Influenza with other respiratory manifestations Acute exacerbation of COPD with asthma ([facility]) documented in this encounter Additional Health Concerns Assessment Noted Time PHQ-9 Depression Total Score: 18 024 2:12 PM EDT documented as of this encounter Care Teams Feeder Worker Power Unit Operator Relationship Specialty Start Date End Date Amelia Montalvo DO [address] [place] [address] PCP - General Family Medicine 06/23/12 documented as of this encounter
--- OUTSIDE RECORDS SUMMARY | 2024-10-23 16:17 | XMS_ITS | Encounter Summary ---
Author Organization [employer] [facility] Address [address] [facility] 7t [place] [address] Care Team Providers Care Bridges Supervisor Name Role Phone Amelia Montalvo DO Primary Care Provider [phone] Encounter Details Date Type Department Care Team (Late st Contact Info) Description 10/26/[address] [facility] [address] [place], [place] [phone] Michelle Vides LPN Social History Tobacco Use [...] Visit [facility] [address] [place], [place] [phone] Cely Guy [address] [place] [address] 12/06/2024 1:30 PM EDT Clinical Support [facility] [address] [place], [place] [phone] Mai Bishop RN documented as of this encounter Visit Diagnoses Not on filedocumented in this encounter Care Teams Bridges Supervisor Relationship Specialty Start Date End Date Amelia Montalvo DO [address] [place] [address] PCP - General Family Medicine 06/23/12 documented as of this encounter
--- OUTSIDE RECORDS SUMMARY | 2024-10-23 16:17 | XMS_ITS | Encounter Summary ---
Author Organization [employer] Address [address] [facility] 7t [place] [address] Care Team Providers Care Rubber Cutting Machine Tender Name Role Phone Amelia Montalvo DO Primary Care Provider + [phone] Reason for Visit * Reason Comments Med Refill Encounter Details Date Type Department Care Team ([facility] st Contact Info) Description 11/07/2023 Refill [facility] [address] [place] [address] Amelia Montalvo DO [address] [place] [address] Other specified anxiety disorders Social History Tobacco [...] Description 11/06/2024 10:00 AM EDT Office Visit [facility] [address] [place] [address] Cely Guy [address] [place] [address] 12/06/2024 1:30 PM EDT Clinical Support [facility] [address] [place] [address] Mai Bishop RN documented as of this encounter Visit Diagnoses Diagnosis Other specified anxiety disorders documented in this encounter Care Teams Rubber Cutting Machine Tender Relationship Specialty Start Date End Date Amelia Montalvo DO [address] [place] [address] PCP - General Family Medicine 06/23/12 documented as of this encounter
--- OUTSIDE RECORDS SUMMARY | 2024-10-23 16:17 | XMS_ITS | Encounter Summary ---
Author Organization [employer] Address [address] [facility] 7t [place] [address] Care Team Providers Care Lamp Decorator Name Role Phone Amelia Montalvo DO Primary Care Provider + [phone] Reason for Visit * Reason Comments Med Refill Encounter Details Date Type Department Care Team ([facility] st Contact Info) Description 03/14/2024 Refill [facility] [address] [place] [address] Amelia Montalvo DO [address] [place] [address] Other specified anxiety disorders Social History Tobacco [...] [facility] [address] [place] [address] Cely Guy [address] [place] [address] 12/06/2024 1:30 PM EDT Clinical Support [facility] [address] [place] [address] Mai Bishop RN documented as of this encounter Visit Diagnoses Diagnosis Other specified anxiety disorders documented in this encounter Additional Health Concerns Assessment Noted Time PHQ-9 Depression Total Score: 18 024 2:12 PM EDT documented as of this encounter Care Teams Lamp Decorator Relationship Specialty Start Date End Date Amelia Montalvo DO [address] [place] [address] PCP - General Family Medicine 06/23/12 documented as of this encounter
--- OUTSIDE RECORDS SUMMARY | 2024-10-23 16:17 | XMS_ITS | Encounter Summary ---
Author Organization [employer] [facility] Address [address] [facility] 7t [place] [address] Care Team Providers Care Assembler Wet Wash Name Role Phone Amelia Montalvo DO Primary Care Provider [phone] Encounter Details Date Type Department Care Team (Latest Contact Info) Description 08/10/2018 Abstract [facility] CONVERSIONS Dental, Provider, DDS Social History Tobacco [...] Description 11/06/2024 10:00 AM EDT Office Visit [facility] [address] [place] [address] Cely Guy [address] [place] [address] 12/06/2024 1:30 PM EDT Clinical Support [facility] [address] [place] [address] Mai Bishop RN documented as of this encounter Visit Diagnoses Not on filedocumented in this encounter Care Teams Assembler Wet Wash Relationship Specialty Start Date End Date Amelia Montalvo DO [address] [place] [address] PCP - General Family Medicine 06/23/12 documented as of this encounter
--- OUTSIDE RECORDS SUMMARY | 2024-10-23 16:17 | XMS_ITS | Encounter Summary ---
Author Organization [employer] Address [address] [facility] 7t [place] [address] Care Team Providers Care Community Service Coordinator Name Role Phone Amelia Montalvo DO Primary Care Provider + [phone] Reason for Visit * Reason Comments Med Refill Encounter Details Date Type Department Care Team ([facility] st Contact Info) Description 11/15/2023 Refill [facility] [address] [place] [address] Charley Miller MD [address] [place] [address] Social History Tobacco Use Types Packs/Day Years [...] Description 11/06/2024 10:00 AM EDT Office Visit [facility] [address] [place] [address] Brooks, Cely [address] [place] [address] 12/06/2024 1:30 PM EDT Clinical Support [facility] [address] [place] [address] Mai Bishop, JAMAAL documented as of this encounter Visit Diagnoses Not on filedocumented in this encounter Care Teams Community Service Coordinator Relationship Specialty Start Date End Date Amelia Montalvo DO [address] [place] [address] PCP - General Family Medicine 06/23/12 documented as of this encounter
--- OUTSIDE RECORDS SUMMARY | 2024-10-23 16:17 | XMS_ITS | Encounter Summary ---
Author Organization [facility] Address [address] [facility] 7t [place] [address] Care Team Providers Care Pie Dough Roller Name Role Phone Amelia Montalvo DO Primary Care Provider [phone] Encounter Details Date Type Department Care Team (Latest Contact Info) Description 01/15/2021 Abstract [facility] CONVERSION[facility] Dental, Provider, DDS Social History [...] Description 11/06/2024 10:00 AM EDT Office Visit [facility] [address] [place] [address] Cely Guy [address] [place] [address] 12/06/2024 1:30 PM EDT Clinical Support [facility] [address] [place] [address] Mai Bishop RN documented as of this encounter Visit Diagnoses Not on filedocumented in this encounter Care Teams Pie Dough Roller Relationship Specialty Start Date End Date Amelia Montalvo DO [address] [place] [address] PCP - General Family Medicine 06/23/12 documented as of this encounter
--- OUTSIDE RECORDS SUMMARY | 2024-10-23 16:17 | XMS_ITS | Encounter Summary ---
Author Organization [employer] Address [address] [facility] 7t [place] [address] Care Team Providers Care Firmware Developer Name Role Phone Amelia Montalvo DO Primary Care Provider + [phone] Reason for Visit * Reason Comments Med Refill Encounter Details Date Type Department Care Team (Late st Contact Info) Description 12/07/2022 Refill [facility] [address] [place] [address] Iram Ascencio FNP Social History Tobacco Use [...] Description 11/06/2024 10:00 AM EDT Office Visit [facility] [address] [place] [address] Cely Guy [address] [place] [address] 12/06/2024 1:30 PM EDT Clinical Support [facility] [address] [place] [address] Mai Bishop, JAMAAL documented as of this encounter Visit Diagnoses Not on filedocumented in this encounter Care Teams Firmware Developer Relationship Specialty Start Date End Date Amelia Montalvo DO [address] [place] [address] PCP - General Family Medicine 06/23/12 documented as of this encounter
--- OUTSIDE RECORDS SUMMARY | 2024-10-23 16:17 | XMS_ITS | Encounter Summary ---
Author Organization [employer] [facility] Address [address] [facility] 7t [place] [address] Care Team Providers Care Food Products Tester Name Role Phone Amelia Montalvo DO Primary Care Provider [phone] Encounter Details Date Type Department Care Team (Late st Contact Info) Description 09/13/2022 Orders Only [facility] [address] [place] [address] Amelia Kemp LPN Social History Tobacco Use [...] Description 11/06/2024 10:00 AM EDT Office Visit [facility] [address] [place] [address] Cely Guy [address] [place] [address] 12/06/2024 1:30 PM EDT Clinical Support [facility] [address] [place] [address] Mai Bishop RN documented as of this encounter Visit Diagnoses Not on filedocumented in this encounter Care Teams Food Products Tester Relationship Specialty Start Date End Date Amelia Montalvo DO [address] [place] [address] PCP - General Family Medicine 06/23/12 documented as of this encounter
--- OUTSIDE RECORDS SUMMARY | 2024-10-23 16:17 | XMS_ITS | Encounter Summary ---
Author Organization [employer] Address [address] [facility] 7t [place] [address] Care Team Providers Care Licensed Staff Mft Name Role Phone Amelia Montalvo DO Primary Care Provider [phone] Encounter Details Date Type Department Care Team ([facility] st Contact Info) Description 10/23/2024 11:45 AM EDT Office Visit [facility] MEDICINE [address] [place] [address] Amelia Montalvo DO [address] [place] [address] COPD exacerbation ([facility]) (Primary Dx); Mild intermittent asthma with acute exacerbation Social History Tobacco [...] Mass Index 26 10/23/2024 12:06 PM EDT documented in this encounter Plan of Treatment Upcoming Encounters Date Type Department Care Team (Late st Contact Info) Description 11/06/2024 10:00 AM EDT Office Visit [facility] ADULT DENTAL [address] [place] [address] Cely Guy [address] [place] [address] 12/06/2024 1:30 PM EDT Clinical Support [facility] MEDICINE [address] [place] [address] Mai Bishop RN documented as of this encounter Procedures Procedure Name Priority Date/Time Associated Diagnosis Comments XR CHEST 2 VIEWS STAT 10/23/2024 1:22 PM EDT COPD exacerbation (CMS/HCC) documented in this encounter Results * XR Chest 2 Views (10/23/2024 1:22 PM EDT) Anatomical Region Laterality Modality Chest Radiographic Veronica ging 10/23/2024 1:22 PM EDT Narrative 10/23/2024 1:38 PM EDT ?[facility] ?[address] ?[place] [address] ?XRay Report ? Signed ? Patient: StephenMaida Child ?MR#: [id number] ?? 71 ? : 1955 ?Acct:[id number] ? Age/Sex: 69 / F ?ADM Date: 10/23/24 ? Loc: HO.HHCX ? Attending Dr: Amelia Montalvo DO ? Ordering Physician: Amelia Montalvo DO ?? Date of Service: 10/23/24 ?? Procedure(s): XR chest 2V ?? Accession Number(s): [id number] ? cc: Amelia Montalvo DO ? EXAMINATION: [...] ??Jeferson Ceballos MD ??10/23/2024 01:35 PM EDT ?? RP ? Dictated By: ?Jeferson Ceballos MD ? Signed By: ?<Electronically signed by Jeferson Ceballos MD in OV> ?10/23/24 1335 ? DD/ 1322 ? TD/TT: 10/23/24 1329 ? Network Designer: ? Procedure Note Lola, Image - 10/23/2024 [facility] [address] [place] [address] XRay Report Signed Patient: Maiad Mitchell IMR#: [id number] : 1955cct:[id number] Age/Sex: 69 / FADM Date: 10/23/24 Loc: .HHX Attending Dr: Amelia Montalvo DO Ordering Physician: Amelia Montalvo DO Date of Service: 10/23/24 Procedure(s): XR chest 2V Accession Number(s): [id number] cc: Amelia Montalvo DO EXAMINATION: XR CHEST [...] 10/23/24 1335 DD/ 1322 TD/TT: 10/23/24 1329 Network Designer: Amelia Montalvo DO IMG XR PROCEDURES Final Resu lt documented in this encounter Visit Diagnoses Diagnosis COPD exacerbation ([facility])- Primary Obstructive chronic bronchitis with exacerbation Mild intermittent asthma with acute exacerbation documented in this encounter Additional Health Concerns Assessment Noted Time PHQ-9 Depression Total Score: 18 024 2:12 PM EDT documented as of this encounter Care Teams Licensed Staff Mft Relationship Specialty Start Date End Date Amelia Montalvo DO [address] [place] [address] PCP - General Family Medicine 06/23/12 documented as of this encounter
--- OUTSIDE RECORDS SUMMARY | 2024-10-23 16:17 | XMS_ITS | Encounter Summary ---
Author Organization [facility] Address [address] [facility] 7t [place] [address] Care Team Providers Care Lawn Sprinkler Servicer Name Role Phone Amelia Montalvo DO Primary Care Provider [phone] Encounter Details Date Type Department Care Team (Late Contact Info) Description 10/21/2023 Orders Only [facility] MED[facility] [address] [place] [address] Provider, MD Santos Social History Tobacco Use [...] Office Visit [facility] ADULT DENTAL [address] [place] [address] Cely Guy [address] [place] [address] 12/06/2024 1:30 PM EDT Clinical Support [facility] [address] [place] [address] Mai Bishop RN documented as of this encounter Procedures Procedure Name Priority Date/Time Associated Diagnosis Comments HM COLONOSCOPY Routine 05/31/2019 10:01 AM EST documented in this encounter Results * Hm Colonoscopy (05/31/2019 10:01 AM EST) us Historical Provider MD HEALTH MAINTENANCE Final Result documented in this encounter Visit Diagnoses Not on filedocumented in this encounter Care Teams Lawn Sprinkler Servicer Relationship Specialty Start Date End Date Amelia Montalvo DO [address] [place] [address] PCP - General Family Medicine 06/23/12 documented as of this encounter
--- OUTSIDE RECORDS SUMMARY | 2024-10-23 16:18 | XMS_ITS | Data Portability ---
Author Organization [facility], Main Office Address [address], [address] [place] [address] Care Team Providers Care Rn Night Name Role Phone WESTLEY AMBROCIO - 2ND FLOOR OTHER DIANELYS IYER Primary Care Provider Assessment Encounter Date Assessment Date Assessment LastModified by Organization Details LastModified Time 01/11/2024 01/11/2024 I have seen and examined the patient independently and confirmed the findings above with the LEGAL PROJECT MANAGER student note. Management plan discussed with the LEGAL PROJECT MANAGER student personally. [email or web address] Not available 01/11/2024 13:09:31 Plan of Treatment [...] Recorded Time Chronic obstructi ve pulmonary disease 59462847 Active 2023 Jennifer Zaragoza NP [address] [facility], [address], [place], [address], [facility] [employer] 4 14:58:38 Restless legs 93462264 Active 2023 Jennifer Zaragoza NP [address] [facility], [address], [place], [address], [facility] [employer] 4 14:58:57 Osteoarth ritis 660186963 Active 2023 Jennifer Zaragoza NP [address] [facility], [address], [place], [address], [facility] [employer] 4 14:59:07 Gastroeso phageal reflux disease 844361015 Active 2023 Jennifer Zaragoza NP [address], [address], [place], [address], [facility] 4 14:59:12 Abnormal small bowel motility 14505684 Active 2023 Jennifer Zaragoza NP [address], [address], [place], [address], [facility] 4 14:59:26 Allergic rhinitis 79735065 Active 2023 Jennifer Zaragoza NP [address], [address], [place], [address], [facility] 4 14:59:38 Anxiety 70257992 Active 2023 Jennifer Zaragoza NP [address], [address], [place], [place], [address], [facility] 4 14:59:47 Total knee replaceme nt Active 2023 Jennifer Zaragoza NP [address], [address], [place], [place], [address], [facility] 4 15:00:05 Pain of right knee region 193758971589 105 Active 2023 Jennifer Zaragoza NP [address], [place], [place], [address], [facility] 4 15:02:07 Migraine 96399133 Completed 202312/23/2023 Jennifer Zaragoza NP [address], [address], [place], [place], [address], [facility] 4 15:02:20 Vertigo 250811141 Active 2023 Jennifer Zaragoza NP [address], [address], [place], [address], [facility] 4 15:02:40 Asthenia 70484362 Active 2023 Jennifer Zaragoza NP [address], [address], [place], [address], [facility] 4 15:03:52 Headache disorder 312128505 Active 2023 Omkar Clement MD [address], [address], [place], [address], [facility] 4 11:36:49 Primary osteoporo sis 947054046 Active 2023 Omkar Clement MD [address], [address], [place], [address], [facility] 4 11:37:06 Chronic idiopathi c constipat ion 70352698 Active 2023 Omkar Clement MD [address] , [address], [place], [address], [facility] 4 11:37:24 Problem Notes None recorded. Procedures Surgical History Date Name Laterality Status Provider Name and Address Organization Details Recorded Time 2023 total replacement of left knee joint completed Jennifer Zaragoza NP [address], [place], [address], [facility] 4 14:43:53 total replacement of right knee joint completed Jennifer Zaragoza NP [address] , [address], [place], [address], [facility] 4 14:43:20 operation on external ear completed Jennifer Zaragoza NP [address] [facility], [address], [place], [address], [facility] 4 14:44:10 colonoscopy completed Jennifer Zaragoza NP [address], [address], [place], [address], [facility] 4 14:44:26 esophagogastroduodenoscopy completed Jennifer Zaragoza NP [address], [address], [place], [address], [facility] 4 14:44:38 Imaging Results None recorded. Procedure Notes None recorded. Medical Equipment None Reported. Allergies Allergen ID Allergen Name Allergen Category Reaction Reaction Severity Criticality Documentation Date Start Date Code Code System Note Provider Name and Address Organization Details Recorded Time 79960 vancomyci n medicatio n other Not available high 12/23/2023 86078 RxNorm redne ss swell ing Not Available Not Available Not Available 25273 tetanus and diphtheri a toxoids Not available anaphylax is severe high 12/23/2023 85081 UNK fever Not Available Not Available Not Available Medications Not known to be on any medication Vitals Date Recorded Body weight Heart rate Respiratory rate Body temperature Oxygen saturation Oxygen saturation in Arterial blood by Pulse oximetry Systolic blood pressure Diastolic blood pressure Provider Name and Address Organization Details Last Updated DateTime 4 69586.4 4 g 75 /min 18 /min 98 [degF] 97 % 97 % 120 mm[Hg] 70 mm[Hg] Jennifer Zaragoza NP [address], [address] [place], [place] [employer] 4 13:15:38 Date Recorded Body weight Heart rate Respiratory rate Body temperature Oxygen saturation Oxygen saturation in Arterial blood by Pulse oximetry Systolic blood pressure Diastolic blood pressure Provider Name and Address Organization Details Last Updated DateTime 4 28661.4 4 g 64 /min 18 /min 97.6 [degF] 97 % 97 % 124 mm[Hg] 68 mm[Hg] Jennifer Zaragoza NP [address], [address] [place] [employer] 4 18:04:40 Date Recorded Body weight Heart rate Respiratory rate Body temperature Oxygen saturation Oxygen saturation in Arterial blood by Pulse oximetry Systolic blood pressure Diastolic blood pressure Provider Name and Address Organization Details Last Updated DateTime 4 89864.4 4 g 62 /min 16 /min 98.4 [degF] 98 % 98 % 124 mm[Hg] 68 mm[Hg] Jennifer Zaragoza NP [address], [address] [place] [employer] 4 09:59:09 Date Recorded Heart rate Respiratory rate Body temperature Oxygen saturation Oxygen saturation in Arterial blood by Pulse oximetry Systolic blood pressure Diastolic blood pressure Provider Name and Address Organization Details Last Updated DateTime 4 78 /min 18 /min 98.5 [degF] 95 % 95 % 118 mm[Hg] 70 mm[Hg] ANA BENJAMIN, KERLINE [address] [facility], [address], [place], [address], [facility] 4 09:45:01 Date Recorded Body weight Heart rate Respiratory rate Body temperature Oxygen saturation Oxygen saturation in Arterial blood by Pulse oximetry Systolic blood pressure Diastolic blood pressure Provider Name and Address Organization Details Last Updated DateTime 4 80324.8 9 g 70 /min 18 /min 98.2 [degF] 99 % 99 % 129 mm[Hg] 74 mm[Hg] MELISSA SIMON [address], [address], [place], [address], [facility] 4 17:48:15 Social History Question Answer Notes LastModified by Organizat ion Details LastModified Time Tobacco Smoking Status Former Smoker Jennifer Zaragoza, KERLINE [address] [facility], [address], [place], [address], [facility] 12/23/2023 14:48:10 Do You Have An [...] B, unspecified formulation 4 completed Della Jeet [facility], [facility] 12/23/2023 10:39:43 Hep B, unspecified formulation 5 completed Della Jeet [facility], [facility] 12/23/2023 10:39:51 Hep B, unspecified formulation 5 completed Della Jeet [facility], [facility] 12/23/2023 10:39:57 Pneumococcal conjugate PCV 13 9 completed Della Jeet [facility] 12/23/2023 10:40:57 pneumococcal polysaccharide PPV23 5 completed Della Jeet [facility] 12/23/2023 10:41:39 pneumococcal polysaccharide PPV23 2 completed Della Jeet [facility] 12/23/2023 10:41:50 pneumococcal polysaccharide PPV23 1 completed Della Jeet [facility] 12/23/2023 10:41:58 influenza, unspecified formulation 2 completed Della Jeet [facility] 12/23/2023 10:42:16 influenza, unspecified formulation 3 completed Della Jeet [facility] 12/23/2023 10:42:24 SARS-COV-2 (COVID-19) vaccine, UNSPECIFIED 1 completed Della Jeet [facility] 12/23/2023 10:42:40 SARS-COV-2 (COVID-19) vaccine, UNSPECIFIED 1 completed Della Jeet [facility] 12/23/2023 10:42:49 SARS-COV-2 (COVID-19) vaccine, UNSPECIFIED 4 completed Della Jeet [facility] 12/23/2023 10:42:56 zoster live 4 completed Della Jeet [facility] 12/23/2023 10:43:30 zoster recombinant 1 completed Della King estella [facility] 12/23/2023 10:43:50 zoster recombinant 1 completed Della soria [facility] 12/23/2023 10:44:01 Past Encounters Encounter ID Performer Location Encounter Start Date Encounter Closed Date Diagnosis/Indication Diagnosis SNOMED-CT Code Diagnosis ICD10 Code Diagnosis Note [id number] Jennifer Zaragoza NP [address] [address] 12/23/2023 14:27:58 12/27/2023 10:39:41 Pain of right knee region 1406760122 34243 M25.561 sp 12/[address] [...] s/s infection Chronic ob structive pulmonary disease 72039324 J44.9 albuterol 2 puff po q 4 prnalb neb q 4hours prn sobflutica sone/salme terol 250/50 bidmonitor Restless legs 31719772 G 25.81 ropinirole 0.25 mg po qhsmonitor Osteoarthritis 116272447 M19.90 now with 2 knee surgeries to help with painwith 2 calcium citrate vit d 3 2 tab bidvit b12 1000 mcg dailyvit d 3 50 mcg po dialyalend ronate 70 mg q weekmonito r Abnormal s mall bowel motility 92399885 R19.8 bm todaymulti vit with iron qdfiber lax 625 mg po qddocusate 100 mg po bidbisacod yl 5 mg po qhsmonitor Gastroesop hageal reflux disease 943391676 K21.9 omeprazole 20 mg bidmetoclo pramide 10 mg po qidlinzess 290 mcgh cap q amfamotidi ne 40 mg po qhszofran 4 mg po q 8 prnmonitor Anxiety 41534781 F41.9 contmirtaz apine 22.5 mg po qhsclonaze ana 1 mg po bid prnmonitor Vertigo 392416656 R42 meclizine 25 mg po tid prn Allergic rhinitis 072598 04 J30.9 azelastine 137mcg intranasal daily both naresfluti casone 50 mcg 2 spray intranasal dailylorat idine 10 mg po dailyzafir lukast 20 mg po bidmonitor Asthenia 66452372 R53.1 pt ot treat and evalmonito r Migraine 94231190 G43.90 9 sumatripta n 100 mg po q 2-4 hours prn (nte 2 doses in 24 hours) [id number] [facility] [address] 12/26/2023 13:46:11 12/29/2023 09:48:46 Pain of right knee region 0158537773 40533 M25.561 sp 12/[address] [...] s/s infection Chronic ob structive pulmonary disease 86330046 J44.9 contalbute rol 2 puff po q 4 prnalb neb q 4hours prn sobflutica sone/salme terol 250/50 bidmonitor Restless legs 29180303 G 25.81 contcropin irole 0.25 mg po qhsmonitor Osteoarthritis 654591416 M19.90 now with 2 knee surgeries to help with painwith 2 calcium citrate vit d 3 2 tab bidvit b12 1000 mcg dailyvit d 3 50 mcg po dialyalend ronate 70 mg q weekmonito r Vertigo 363044470 R42 meclizine 25 mg po tid prn Allergic rhinitis 521388 04 J30.9 azelastine 137mcg intranasal daily both naresfluti casone 50 mcg 2 spray intranasal dailylorat idine 10 mg po dailyzafir lukast 20 mg po bidmonitor Asthenia 05532143 R53.1 pt ot treat and evalmonito r [id number] Omkar Clemnet MD [address] [address] 12/27/2023 11:30:56 12/29/2023 10:05:35 Osteoarthritis of left knee joint 1516921517 59098 M17.12 end stage OA left knee now s/p TKRASA 325 mg bid for dvt prophylaxi sfollow ortho recs and update with concernsPT OT Eval and treatmonit or for pain control Chronic ob structive pulmonary disease 07262821 J41.1 advair 250/50 bidmonitor respirator y status and albuterol utilizatio n Restless legs 81639838 G 25.81 ropinirole 0.25 mg po qhsmonitor for effect Vertigo 094559355 R42 carrying dxmeclizin e 25 mg po tid prnmonitor for sx and need for further workup Allergic rhinitis 342295 04 J30.2 appears to be significan t issue for patient at baselineco ntinue out patient medsavoid PO steroid given post op statusmoni tor sx Asthenia 48695112 R53.1 PT OT eval and treatmonit or fall risk Chronic id iopathic constipation 73832661 K59.04 appears with dysmotilit y disorderma intained onlinzess 290 mg qdmonitor for effectGI eval prn Primary osteoporosis 276 056825 M81.0 fosamax 70 mg q weekcontin ued Headache disorder 646695 009 G44.89 baseline migraine hxon imitrex prnadded to H Gastroesop hageal reflux disease 591604794 K21.9 famotidine 40 mg qdmonitor for sx relief Cellulitis of left lower limb 8865213235 4409937 L03.116 concern for infection at incision sitestarte d on keflexorth o updated and reeval not felt to be infectedab x d/c'ed [id number] Jennifer Zaragoza NP [facility] [address] 12/28/2023 13:14:27 01/04/2024 15:54:46 Osteoarthritis of left knee joint 6061254944 21570 M17.12 end stage OA left knee now s/p TKRASA 325 mg bid for dvt prophylaxi s until 02/02follow ortho recsand update with concerns and monitor for infectionP T OT Eval and treatmonit or for pain control Cellulitis of left lower limb 5072047814 8353383 L03.116 concern for infection at incision sitestarte d on keflexorth o updated and reeval not felt to be infectedab x d/c'ed on 12/26ice prnwbc is 11.2 on 12/26 elevated, however site is less warm and decreased swellingmo nitor closely for infection and reeval labs on tuesday Asthenia 58980904 R53.1 PT OT eval and treatmonit or fall risk Restless legs 48161211 G 25.81 ropinirole 0.25 mg po qhsmonitor for effect [id number] Jennifer Zaragoza NP [facility] [address] 01/04/2024 16:01:53 01/10/2024 09:58:03 Osteoarthritis of left knee joint 8505043831 27764 M17.12 end stage OA left knee now s/p TKRASA 325 mg bid for dvt prophylaxi s until 02/02follow ortho recsand update with concerns and monitor for infectionP T OT Eval and treatmonit or for pain control Asthenia 18315878 R53.1 PT OT eval and treatmonit or fall risk Restless legs 07075019 G 25.81 ropinirole 0.25 mg po qhsmonitor for effect Dysuria 49260759 R30.0 pt with report of dysuria and frequencyu rinalysis with c & spyridium 200 mg po tid prn dysuria to start after sample is obtainedpt educated about orange discolorat ion to urinemonit or ua and consider abx if needed [id number] Jennifer Zaragoza NP [facility] [address] 01/06/2024 09:58:30 01/10/2024 11:28:47 Dysuria 47788873 R30.0 UTI ruled outpt with report of dysuria and frequency, states she has not had bowel movement in a few dayssee constipati on01/05 urinalysis with c & s with culture showing no infection dc pyridium 200 mg po tid prnmonitor ua and consider abx if needed Osteoarthr itis of left knee joint 5538626073 67521 M17.12 end stage OA left knee now s/p TKRpt reports ortho visit yesterday and removed suturesste ri strips in place today.nsg to obtain consult info from orthoASA 325 mg bid for dvt prophylaxi s until 02/02fo ortho recsand update with concerns and monitor for infectionP T OT Eval and treatmonit or for pain control Asthenia 22591895 R53.1 PT OT eval and treatmonit or fall risk Abnormal s mall bowel motility 54321388 R19.8 no bm in a few daysmultiv it with iron qdfiber lax 625 mg po qddocusate 100 mg po bidbisacod yl 5 mg po qhs01/05inc rease senna to 2 tabs per daygive mom 30cc todaymonit or [id number] ANA BENJAMIN NP [facility] [address] 01/11/2024 09:00:48 01/19/2024 12:49:58 Abnormal small bowel motility 84317007 R19.8 no bm in a few days [...] qd Add miralax dailyMonit or bowels Dysuria 40539712 R30.0 UTI ruled outpt had reported dysuria and frequency on 01/05 - no complaints today, seems resolved urinalysis with c & s with culture neg01/05 dc pyridium 200 mg po tid prnmonitor sx. Osteoarthr itis of left knee joint 3539801219 97922 M17.12 end stage OA left knee now [...] home Sat. 7/6monitor for pain control Asthenia 00532257 R53.1 PT OT eval and treatSee above, meeting rehab goals, goal home 7/6monitor fall risk [id number] MELISSA SIMON [address] [place] [address] 01/13/2024 11:41:32 01/19/2024 13:26:02 Osteoarthritis of left knee joint 5011731613 64772 M17.12 end stage OA left knee now s/p TKRASA 325 mg bid for dvt prophylaxi sfollow up with ortho outpatient Restless legs 86443398 G 25.81 ropinirole 0.25 mg po qhs Chronic ob structive pulmonary disease 42409466 J41.1 advair 250/50 bid Vertigo 564547898 R42 carrying dxmeclizin e 25 mg po tid prnmonitor for sx and need for further workupfoll ow up outpatient Allergic rhinitis 581929 04 J30.2 appears to be significan t issue for patient at baselineco ntinue out patient medsavoid PO steroid given post op statusmoni tor sx Chronic id iopathic constipation 59110481 K59.04 appears with dysmotilit y disorderma intained onlinzess 290 mg qdmonitor for effectGI eval prn Primary osteoporosis 276 140004 M81.0 fosamax 70 mg q weekcontin ued Headache disorder 098344 009 G44.89 baseline migraine hxon imitrex prnadded to H Gastroesop hageal reflux disease 230644458 K21.9 famotidine 40 mg qdmonitor for sx relief Abnormal s mall bowel motility 86516992 R19.8 Continue:l inzess 290 mg qd for IBSfiber lax 625 mg po qd docusate 100 mg po bid bisacodyl 10 mg po qhs senna 2 tabs qd miralax 17 gn daily Anxiety 88476629 F41.9 contmirtaz apine 22.5 mg po qhsclonaze ana 1 mg po bid prnmonitor Osteoarthritis 036539374 M19.90 now with 2 knee surgeries to [...] Kimble Member ID Guarantor Name 12/28/2023 1 [facility] - DOS ON OR AFTER 2022 - MEDICARE ADVANTAGE [place] (MEDICARE REPLACEMENT/ADV ANTAGE - PPO) Maida Mitchell [id number] Maida Mitchell 01/04/2024 1 [facility] - DOS ON OR AFTER 2022 - [place]IC[place]AGE [place]/ADV ANTAGE - PPO) Maida Mitchell [id number] Maida Mitchell 01/06/2024 1 [facility] - DOS ON OR AFTER 2022 - [place]IC[place]AGE [place]/ADV ANTAGE - PPO) Maida Mitchell [id number] Maida Mitchell 01/11/2024 1 [facility] - DOS ON OR AFTER 2022 - [place]IC[place]/ADV ANTAGE - PPO) Maida Mitchell [id number] Maida Mitchell 01/13/2024 1 [facility] - DOS ON OR AFTER 2022 - [place]IC[place]AGE [place]/ADV ANTAGE - PPO) Maida Mitchell [id number] Maida Mitchell Notes Date Note Type Note [...] bid for DVT prophylaxis. [facility] care felt [...] or complaints today. Jennifer Zaragoza, KERLINE [address] [facility], [address], [place], [address], [facility] 12/28/2023 13:29:09 01/04/2024 text/html Pt is seen for a n acute rounding visit. She is a 68 yo female admit from hospital after presenting with end stage OA left knee for TKR having failed conservative treatment without complications in hospital on ASA 325 mg bid for DVT prophylaxis. [facility] and continued care felt [...] No cva tenderness. Jennifer Zaragoza NP [address] [facility], [address], [place], [address], [facility] 01/04/2024 18:17:27 01/06/2024 text/html Pt is [...] and well approximated. Jennifer Zaragoza NP [address] [facility], [address], [place], [address], [facility] 01/06/2024 10:22:58 01/11/2024 text/html Pt is [...] does have asthma/COPD). ANA BENJAMIN, KERLINE [address] [facility], [address], [place], [address], [facility] 01/11/2024 13:15:56 01/13/2024 text/html Maida is a 68 yr old female seen today for discharge on 01/14/24. Admitted to [facility] from hospital after presenting with end [...] she will be receiving support services with [facility]. she can be discharge to home with medications, PT/OT and vna services. PMH is significant for OA,anxiety,RLS,gerd ,copd,chronic constipation,vertig o migraine LARA, osteoporosis MELISSA SIMON [address] [facility], [address], [place], [address], [facility] 01/13/2024 17:48:53 OBGyn Episode No OBEpisode recorded.
--- OUTSIDE RECORDS SUMMARY | 2024-10-23 16:18 | XMS_ITS | Encounter Summary ---
Author Organization [employer] Address [address] [facility] [facility] [address] [place] [address] Care Team Providers Care Access Database Developer Name Role Phone Amelia Montalvo DO Primary Care Provider Encounter Details Date Type Department Care Team (Latest Contact Info) Description 10/23/2024 Travel Social History Tobacco Use Types Packs/Day [...] Description 11/06/2024 10:00 AM EDT Office Visit [facility] [address] [place] [address] Brooks, Cely [address] [place] [address] 12/06/2024 1:30 PM EDT Clinical Support [facility] [address] [place] [address] Mai Bishop RN documented as of this encounter Visit Diagnoses Not on filedocumented in this encounter Additional Health Concerns Assessment Noted Time PHQ-9 Depression Total Score: 18 024 2:12 PM EDT documented as of this encounter Care Teams Access Database Developer Relationship Specialty Start Date End Date Amelia Montalvo DO [address] [place] [address] PCP - General Family Medicine 06/23/12 documented as of this encounter
== END 2024-10-23 13:21 | disposition home or self-care (01) ==
LOC: HO.HHCX 13:20
PROVIDERS: Visit Provider Family Medicine
DX: J44.1 Chronic obstructive pulmonary disease with (acute) exacerbation (principal)
CPT/HCPCS: 71046

== ENCOUNTER → 2024-10-23 13:22 | Outpatient (BNV) | payer OTHER, SELFPAY | PROVIDERS: Visit Provider Radiology Diagnostic Radiology | DX: J44.9 Chronic obstructive pulmonary disease, unspecified (principal) | CPT/HCPCS: 71046 ==

== ENCOUNTER 2024-11-14 10:41 | Outpatient (AMB) | payer OTHER, SELFPAY ==
[2024-11-14 11:21] VITALS: BP 102/70; PULSE 72; O2SAT 98; BMI 26.5
--- NOTE | 2024-11-14 11:21 | A.OFFVIS_ITS ---
Vital Signs 11/14/24 11:21 Height 5 ft 8 in Weight 174 lb 2.643 oz BMI 26.5 BP 102/70 Blood Pressure Location Lt brachial Position Sitting Pulse 72 Pulse Source Pulse Oximeter Pulse Oximetry (%) 98 Oxygen Delivery Method Room Air Intake Visit Reasons: Asthma Allergies vancomycin [VANCOMYCIN] Allergy (Severe, Verified 11/14/24 12:25) REDNESS,RASH,SWELLING Tetanus & Diphtheria Tox,Adult Allergy (Severe, Uncoded 11/14/24 12:25) FEVER,DIFF.BREATHING Medication List - Last Reconciled 11/14/24 by Jared Langley MD acetaminophen 650 mg (2 x 325 mg) PO Q6H PRN 30 days albuterol sulfate 90 mcg/actuation 2 puffs PO Q4H PRN albuterol sulfate 2.5 mg inhalation Q4H PRN alendronate 70 mg PO QWEEK azelastine 1 spray intranasal DAILY bisacodyl 2 tabs qhs and 1 qam orally bedtime; PLEASE PUT IN PILL PACKS calcium citrate-vitamin D3 200 mg-6.25 mcg (250 unit) ([place] Calcium) 2 tabs PO BID calcium polycarbophil (Fiber-Lax) 625 mg PO DAILY cholecalciferol (vitamin D3) 50 mcg PO DAILY clonazepam 1 mg PO BID PRN cyanocobalamin (vitamin B-12) 1,000 mcg PO DAILY divalproex ER mg PO docusate sodium 100 mg PO BID doxycycline hyclate 100 mg PO BID 7 days famotidine 40 mg PO BEDTIME fluticasone propion-salmeterol 250-50 mcg/dose 1 ea inhalation BID fluticasone propion-salmeterol 250-50 mcg/dose (Wixela Inhub) 1 inh inhalation BID 30 days MDD Asthma/COPD fluticasone propionate 50 mcg/actuation 2 sprays intranasal DAILY ibuprofen 400 mg PO Q6H PRN linaclotide (Linzess) 290 mcg PO QAM 30 days loratadine 10 mg PO DAILY meclizine 25 mg PO TID PRN melatonin 5 - 10 mg PO BEDTIME PRN metoclopramide HCl (Reglan) 10 mg PO QID mirtazapine 22.5 mg PO BEDTIME multivit-iron sulf-folic acid 15 mg iron- 400 mcg (Tab-A-Aurea Multivitamin w- iron) 1 tab PO DAILY naproxen 500 mg PO BID PRN 10 days omeprazole 20 mg PO BID ondansetron 4 mg PO Q8H ropinirole 0.25 mg PO BEDTIME sumatriptan succinate mg PO walker Folding Front wheeled walker walker Folding Front wheeled walker zafirlukast 20 mg PO BID Do you need a note to return to daycare/school/sports/work: No HPI HPI Asthma: Details: THIS 69 YEARS OLD FEMALE WITH LONGSTANDING HISTORY OF ALLERGIC RHINITIS, ASTHMA/COPD, AND GENERAL ANXIETY, COMES FOR FOLLOW-UP AFTER 4 MONTHS. IN THE MEANTIME SHE HAS HAD A CHEST X-RAY WELL PULMONARY FUNCTION TEST. SHE CLAIMS TO BE FEELING FINE TODAY EXCEPT FOR MILD INTERMITTENT NASAL CONGEST ION. SHE ALSO HAS MILD INTERMITTENT COUGH BUT DENIES ANY WHEEZING ATTACKS SHE IS NONSMOKER. [facility]LY [facility] Medical History Osteoarthritis of left knee COPD exacerbation Hypoxia Gastric pain Vaginal irritation History of revision of total replacement of right knee joint Lumbar radiculopathy Osteoarthritis GERD (gastroesophageal reflux disease) Small bowel motility disorder COPD (chronic obstructive pulmonary disease) Anxiety Surgical History History of left knee replacement History of right knee joint replacement History of total right knee replacement History of ear surgery Hx of colonoscopy History of esophagogastroduodenoscopy (EGD) Family History Father Diabetes Mother Diabetes Osteoporosis HTN (hypertension) Sister Pancreas cancer Social History Household Members: None Housing: Apartment Are you a primary healthcare account manager to a significant other at home: No Do you presently have visiting nurse or other home services: No Alcohol intake: never Patient Tobacco Use Status: Former Tobacco user Tobacco use type: Cigarette e-Cigarette/Vaping Use: Never Used Second Hand Smoke Exposure: No Advance Directives Date on File: 11/28/20 service: No Current occupational status: unemployed and disabled 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 Review of Systems Const All systems reviewed & are unremarkable except as noted in HPI and below Eyes Reports no additional complaints ENT Reports nasal congestion and Reports nasal discharge Card Denies chest pain, Denies irregular heart rhythm and Denies leg edema Resp Reports as per HPI GI Reports constipation Reports no additional complaints Musc Reports no additional complaints Skin/Breast Reports system reviewed and no additional complaints, except as documented Neuro Reports no additional complaints Psych Reports anxiety Physical Exam Vital Signs: Last Vital Signs Pulse 72 11/14/24 11:21 BP 102/70 11/14/24 11:21 Pulse Ox 98 11/14/24 11:21 Oxygen Delivery Method Room Air 11/14/24 11:21 BMI result Body Mass Index 26.5 Const General: comfortable, no acute distress, alert and awake Orientation/consciousness: patient oriented x3 HEENT Head: Yes normal to inspection General nose exam: No nasal polyps present, No nasal discharge present and Other nasal findings present (Mild chronic nasal congestion) Face and sinus: Yes sinuses nontender Mouth: oropharynx normal Throat: Yes posterior oropharynx normal Eyes General: appearance normal, both eyes and all related structures Neck Neck: Yes normal visual inspection, Yes no lymphadenopathy, Yes trachea midline and Yes no JVD Thyroid: Thyroid normal Chest Chest palpation & inspection: normal inspection of the chest, normal palpation of entire chest wall and no tenderness Resp Other: Percussion note is resonant, has good breath sounds on both sides. No audible wheezes rhonchi or crepitations. Cardio Palpation: normal PMI Rate: regular rate Rhythm: regular rhythm Heart sounds: no gallops and no murmurs Peripheral pulses: Peripheral pulses 2+ throughout GI Palpation (GI): Soft to palpation, nontender, No hepatosplenomegaly present and no masses Auscultation: normal bowel sounds Back/Spine/Pelvis Thoracic/Lumbar Spine: thoracic and lumbar spine normal to inspection Skin General skin exam: no rashes or lesions noted Neuro General: patient oriented x3 and no focal motor deficits Cranial nerves: Yes CN's II-XII intact bilaterally Extrem General: Yes normal to inspection, Yes no clubbing, cyanosis or edema and Yes no calf tenderness Psych Appearance: grossly normal and well kempt Speech and movement: Normal speech and movement present Affect: Anxious affect present Results Reviewed Results Reviewed: CHEST X-RAY ON LUNGS HYPER INFLATED SUGGESTING COPD, NO MASS, AND NO LYMPHADENOPATHY. PULMONARY FUNCTION TEST ON 09/21/2024. ALL VALUES ARE WITHIN NORMAL RANGE, FEF 11/27/2074 IS SLIGHTLY DECREASED TO 66% THE RESULTS ARE VERY REASSURING. Assessment & Plan Assessment & Plan (1) COPD (chronic obstructive pulmonary disease): Comment: This patient has only mild degree of obstructive disorder, which may be resultant from bronchial asthma over the past many years. Patient continues to be worried about her COPD getting worse. I SHARED THE RESULTS OF PULMONARY FUNCTION TEST WITH HER AND SHE FEELS REASSURED. Code(s): J44.9 - Chronic obstructive pulmonary disease, unspecified Category: Medical Plan: CONTINUE WIXELA 250-51 INHALATION B.I.D.. ALBUTEROL HFA 2 PUFFS Q 6 HOURS P.R.N.. ALBUTEROL SOLUTION 2.5 MG IN THE NEBULIZER Q 6 HOURS P.R.N. WHEN AT HOME. (2) Anxiety: Comment: Patient has an anxious personality, and worries about her somatic symptoms Code(s): F41.9 - Anxiety disorder, unspecified Category: Medical Plan: AGAIN REASSURED THAT HER PULMONARY FUNCTION TEST IS ALMOST NORMAL. SHE IS ADVISED TO CONTINUE THE PRESENT MEDICATIONS. (3) Allergic rhinitis: Onset Date: ~12/11/20 Comment: This is her chronic problem. Seems to be well controlled and stable at this time. But she continues to complain of nasal congestion with postnasal discharge and irritation and worries that this will make her lungs worse. Code(s): J30.9 - Allergic rhinitis, unspecified Category: Medical Plan: MAY USE FLONASE 2 SPRAY IN EACH NOSTRIL DAILY MAY USE LORATADINE 10 MG ONCE A DAY P.R.N. Coding Level of Care Code Est Pt Level 3 (70215) Diagnoses COPD (chronic obstructive pulmonary disease) J44.9 Anxiety F41.9 Allergic rhinitis J30.9
--- OUTSIDE RECORDS SUMMARY | 2024-11-14 11:59 | XMS_ITS | Encounter Summary ---
Author Organization [employer] [facility] Address [address] [place] [address] Care Team Providers Care Hairspring Cutter Name Role Phone Amelia Montalvo DO Primary Care Provider [phone] Encounter Details Date Type Department Care Team (Latest Contact Info) Description 08/10/2018 Abstract [facility] CONVERSIONS Dental, Provider, DDS Social History Tobacco [...] Care Team (Late st Contact Info) Description 12/06/2024 1:30 PM EDT Clinical Support [facility] MEDICINE [address] [place] [address] Mai Bishop RN 12/06/2024 2:30 PM EDT Office Visit [facility] ADULT DENTAL [address] [place] [address] Kristian Mendoza DDS [address] [place] [address] documented as of this encounter Visit Diagnoses Not on filedocumented in this encounter Care Teams Hairspring Cutter Relationship Specialty Start Date End Date Amelia Montalvo DO [address] [place] [address] PCP - General Family Medicine 06/23/12 documented as of this encounter
--- OUTSIDE RECORDS SUMMARY | 2024-11-14 11:59 | XMS_ITS | Encounter Summary ---
Author Organization [employer] Address [address] [place] [address] Care Team Providers Care Industrial Waste Treatment Technician Name Role Phone Amelia Montalvo DO Primary Care Provider + [phone] Reason for Visit * Reason Comments Med Refill Encounter Details Date Type Department Care Team ([facility] st Contact Info) Description 10/25/2023 Refill [facility] [address] [place] [address] Iram Ascencio FNP Social History Tobacco Use [...] Description 12/06/2024 1:30 PM EDT Clinical Support [facility] [address] [place] [address] Mai Bishop RN 12/06/2024 2:30 PM EDT Office Visit [facility] [address] [place] [address] Kristian Mendoza DDS [address] [place] [address] documented as of this encounter Visit Diagnoses Not on filedocumented in this encounter Care Teams Industrial Waste Treatment Technician Relationship Specialty Start Date End Date Amelia Montalov DO [address] [place] [address] PCP - General Family Medicine 06/23/12 documented as of this encounter
--- OUTSIDE RECORDS SUMMARY | 2024-11-14 11:59 | XMS_ITS | Encounter Summary ---
Author Organization [employer] Address [address] [place] [address] Care Team Providers Care Bar And Filler Assembler Name Role Phone Amelia Montalvo DO Primary Care Provider [phone] Reason for Visit * Reason Comments Med Refill Encounter Details Date Type Department Care Team ([facility] st Contact Info) Description 12/09/2023 Refill [facility] MEDICINE [address] [place] [address] Amelia Montalvo DO [address] [place] [address] Social History Tobacco Use Types Packs/Day Years [...] Description 12/06/2024 1:30 PM EDT Clinical Support [facility] [address] [place] [id number] Mai Bishop RN 12/06/2024 2:30 PM EDT Office Visit [facility] ADULT DENTAL [address] [place] [address] Kristian Mendoza DDS [address] [place] [id number] documented as of this encounter Visit Diagnoses Not on filedocumented in this encounter Care Teams Bar And Filler Assembler Relationship Specialty Start Date End Date Amelia Montalvo DO [address] [place] [id number] PCP - General Family Medicine 06/23/12 documented as of this encounter
--- OUTSIDE RECORDS SUMMARY | 2024-11-14 11:59 | XMS_ITS | Encounter Summary ---
Author Organization [employer] [facility] Address [address] [place] [address] Care Team Providers Care Protozoology Teacher Name Role Phone Amelia Montalvo DO Primary Care Provider [phone] Encounter Details Date Type Department Care Team (Latest Contact Info) Description 03/29/2022 Abstract [facility] CONVERSIONS Dental, Provider, DDS Social [...] Description 12/06/2024 1:30 PM EDT Clinical Support [facility] MEDICINE [address] [place] [address] Mai Bishop RN 12/06/2024 2:30 PM EDT Office Visit [facility] ADULT DENTAL [address] [place] [address] Kristian Mendoza DDS [address] [place] [address] documented as of this encounter Visit Diagnoses Not on filedocumented in this encounter Care Teams Protozoology Teacher Relationship Specialty Start Date End Date Amelia Montalvo DO [address] [place] [address] PCP - General Family Medicine 06/23/12 documented as of this encounter
--- OUTSIDE RECORDS SUMMARY | 2024-11-14 11:59 | XMS_ITS | Clinical Summary ---
Author Organization [employer] Address [address] [place] [address] 7[address] [place] [address] Care Team Providers Care Noc Engineer Name Role Phone Amelia Montalvo DO Primary Care Provider + [phone] Allergies Active Allergy Reactions Criticality Noted Date [...] at bedtime. 30 tablet 11 023 Active ondansetron ODT (Zofran-ODT) 4 MG disintegrating [...] EVENING AFTER MEALS 180 tablet 1 Active divalproex (Depakote ER) 250 MG 24 hr tabletIndications :Chronic migraine without aura without status migrainosus, not intractable TAKE 1 TABLET BY MOUTH TWICE DAILY IN THE MORNING AND IN THE EVENING 60 tablet 3 025 Active acetaminophen (Tylenol 8 Hour) 650 MG ER tablet Take 1 tablet (650 mg) by mouth every 8 (eight) hours if needed for mild pain. Do not crush, chew, or split. 60 tablet 3 025 Active ibuprofen 400 MG tablet Take 1 tablet (400 mg) by mouth every 6 (six) hours if needed for moderate pain or fever for up to 30 doses. 30 tablet 025 Active predniSONE (Deltasone) 10 MG tablet Take 2 tablets PO daily x 3 days then 1 tablet PO daily x 3 days 9 tablet Active pseudoephedrine (Sudafed) 30 MG tablet Take 1 tablet (30 mg) by mouth every 6 (six) hours if needed for congestion for up to 10 days. 30 tablet 025 Active albuterol (Ventolin HFA) 108 (90 Base) [...] wheezing or shortness of breath. 90 mL 025 Active Calcium Citrate-Vitamin D 200-6.25 MG-MCG tablet TAKE 2 TABLETS BY MOUTH TWICE DAILY IN THE MORNING AND EVENING 120 tablet Active omeprazole (PriLOSEC) [address] capsule TAKE 1 CAPSULE BY MOUTH TWICE DAILY IN THE MORNING AND IN THE EVENING BEFORE MEALS 60 capsule 025 Active cholecalciferol VITAMIN D (Vitamin D-3) 50 MCG (2000 UT) tablet TAKE 1 TABLET BY MOUTH EVERY MORNING 90 tablet 025 Active cyanocobalamin (Vitamin B-12) 1000 MCG tabletIndications :Vitamin B12 deficiency TAKE 1 TABLET BY MOUTH EVERY MORNING 90 tablet 025 Active amoxicillin (Amoxil) 500 MG capsule Take 4 tabs (2 grams) 1 hour prior to dental procedure 4 capsule 3 Active clonazePAM (KlonoPIN) 1 MG tabletIndications :Other specified anxiety disorders TAKE 1 TABLET BY MOUTH EVERY TWELVE HOURS 56 tablet 025 2024 Active albuterol (Ventolin HFA) 108 (90 Base) MCG/ACT inhalerIndication s:Mild intermittent asthma with acute exacerbation INHALE 2 PUFFS BY MOUTH EVERY 4 HOURS NEEDED FOR WHEEZING OR SHORTNESS OF BREATH 18 g 1 024 2024 Discontinued(R eorder (will not trigger notification to Pharmacy)) cholecalciferol (Vitamin D-3) 50 MCG (2000 UT) tablet TAKE 1 TABLET BY MOUTH EVERY MORNING 90 tablet 3 024 2024 Discontinued cyanocobalamin (Vitamin B-12) 1000 MCG tabletIndications :Vitamin B12 deficiency TAKE 1 TABLET BY MOUTH EVERY MORNING 90 tablet 3 024 2024 Discontinued omeprazole (PriLOSEC) [address] capsule Take 1 capsule (20 mg) by mouth before breakfast and before evening meal. Do not crush or chew. 60 capsule 11 024 2024 Discontinued Calcium Citrate-Vitamin D (Citracal Petites/Vitamin D) 200-6.25 MG-MCG tablet Take 2 tablets by mouth 2 times daily. 120 tablet 11 024 2024 Discontinued clonazePAM (KlonoPIN) 1 MG [...] tabletIndications :Flu,Acute exacerbation of COPD with asthma ([facility]) Take 1 tablet (20 mg) by mouth 3 times daily for 3 days, THEN 1 tablet (20 mg) 2 times daily for 3 days, THEN 1 tablet (20 mg) Once per day for 3 days. 18 tablet 025 2024 Discontinued(T herapy completed) benzonatate (Tessalon Perles) 100 MG capsule Take 1 capsule (100 mg) by mouth if needed in the morning, at noon, and at bedtime for cough for up to 10 days. Do not crush or chew. 30 capsule 025 2024 Hospital, Clinic, or Other Facility Administered Medication Ordered Dose Route Frequency Start Date End Date Status albuterol (2.5 MG/3ML) 0.083% nebulizer solution 2.5 mgIndications:COPD exacerbation (CMS/[facility]) 2.5 mg NEBULIZATION Once 10/23/2024 Active Active Problems Problem Noted Date Diagnosed Date Flu 10/18/2024 Assessment & Plan (10/18/2024 1:27 PM EDT): Faint wheezing on exam. No evidence of acute respiratory distress. 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 Symptoms mild. No evidence of dehydration. -Prescribed predniSONE (Deltasone) 20 MG taper. -Supportive care advised. -Isolation recommendations discussed. Acute exacerbation of COPD with asthma Assessment & Plan (10/18/2024 1:25 PM EDT): Faint diffuse wheezing on exam. 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 -prescribed predniSONE (Deltasone) 20 MG taper. [...] and flonase daily -cont accolate daily -review olive grader next visit [facility] (generalized anxiety disorder) 07/25/2012 [...] from body habitus and lead placement; normal HI and corrected QT. Referred for stress test and TTE. Per pt to be performed tests this month. -In current evaluation by solutions delivery consultant for Atypical chest pain but difficult to [...] on exertion 10/04/2022 11/06/19 23 Influenza-like symptoms 10/04/2022 04/02/2023 Seasonal allergies 12/15/2017 3 Gingivitis 10/04/2013 11/05/2022 Encounters Date Type Department Care Team Description 11/12/2024 Refill [facility] [address] [place] [address] Amelia Mnotalvo DO Other specified anxiety disorders 11/06/2024 10:00 AM EDT Office Visit [facility] [address] [place], [place] [phone] Cely Guy Abfraction (Primary Dx); Missing teeth, acquired 11/06/2024 Refill [facility] [address] [place] [phone] Amelia Montalvo DO Vitamin B12 deficiency 11/04/2024 Refill [facility] [address] [place] [address] Amelia Montalvo DO Vitamin B12 deficiency 10/31/2024 Refill [facility] [address] [place] [address] Amelia Montalvo DO 10/26/[address] [address] Amelia Montalvo DO Results 10/23/2024 11:45 AM EDT Office Visit [facility] [address] [place] [phone] Amelia Montalvo DO COPD exacerbation (CMS/HCC) (Primary Dx); Mild intermittent asthma with acute exacerbation 10/23/2024 Travel 10/18/2024 1:40 PM EDT Office Visit [facility] [address] [place] [phone] Cristal Lindsey MD Flu (Primary Dx); Acute exacerbation of COPD with asthma (CMS/HCC) 10/18/2024 Telephone [facility] [address] [place] [address] Glenda Sandy, JAMAAL WIC triage 10/15/2024 8:40 AM EDT [facility] [address] [address] Igor Stroud MD Influenza A (Primary Dx); Moderate persistent asthma with acute exacerbation 10/15/2024 Telephone [facility] [address] [place] [phone] Amelia Montalvo DO ER Follow-up; Nurse Triage 10/15/2024 Orders Only [facility] External Provider, [facility] 10/15/2024 Travel 10/12/2024 10:00 AM EDT [facility] [address] [address] Igor Stroud MD Influenza A (Primary Dx) 10/06/2024 Refill [facility] [address] [place] [address] Amelia Montalvo, 10/03/2024 Telephone [facility] [address] [place] [address] Amelia Montalvo, 10/03/2024 Refill [facility] [address] [place] [address] Amelia Montalvo, Chronic migraine without aura without status migrainosus, not intractable 10/01/2024 Refill [facility] [address] [place] [address] Amelia Montalvo, Other specified anxiety disorders 09/16/2024 Refill [facility] [address] [place] [address] Amelia Montalvo, 08/28/2024 Telephone [facility] [address] [place] [phone] Amelia Montalvo, Recall Appt. 08/28/2024 Travel 08/21/2024 Refill [facility] [address] [place] [address] Amelia Montalvo, Other specified anxiety disorders from Last 3 Months Immunizations Name Administration [...] Sign Reading Time Taken Comments Blood Pressure 126/72 11/06/2024 9:46 AM EDT Pulse 76 10/23/2024 12:06 PM EDT [...] Description 12/06/2024 1:30 PM EDT Clinical Support [facility] [address] [place] [address] Mai Bishop RN 12/06/2024 2:30 PM EDT Office Visit [facility] [address] [place] [address] Kristian Mendoza DDS [address] [place] [address] Health Maintenance Due Date Last Done Comments CT Colonography 1955 FIT DNA/Cologuard 1955 FIT 1955 FOBT 1955 Sigmoidoscopy 1955 Alcohol/Substance Use Screening 1965 DTaP/Tdap/Td Vaccines (1 - Tdap) 1972 Mammogram 1993 SDOH Screening 10/26/2024 10/27/2023 Dental Prophylaxis 11/06/2024 05/07/2024, 0 12/07/2022, 03/29/2022, Additional history exists Depression Screening 12/12/2024 12/13/2023, 12/13/19 Dental X-Ray: Full Mouth 03/30/2025 03/29/2022, 12/09 Dental Oral Exam 05/09/2025 11/06/2024, , 12/07/2022, Additional history exists Tobacco Screening 11/06/2025 11/06/2024 Dental X-Ray: Bitewings 11/07/2025 11/07/19 25, 02/23/2024, 12/07/2022, Additional history exists Colonoscopy 05/31/2029 05/31/2019 Colorectal Cancer Screening 05/31/2029 [...] Procedure Name Priority Date/Time Associated Diagnosis Comments CASE PRESENTATION, DETAILED AND EXTENSIVE TREATMENT PLANNING Routine 11/06/2024 10:00 AM EDT PERIODIC ORAL EVALUATION - ESTABLISHED PATIENT Routine 11/06/2024 10:00 AM EDT 24,25 INTRAORAL - PERIAPICAL EACH ADDITIONAL RADIOGRAPHIC IMAGE Routine 11/06/2024 10:00 AM EDT Abfraction Missing teeth, acquired 8,9 INTRAORAL - PERIAPICAL FIRST RADIOGRAPHIC IMAGE Routine 11/06/2024 10:00 AM EDT Abfraction Missing teeth, acquired BITEWINGS - 4 RADIOGRAPHIC IMAGES Routine 11/06/2024 10:00 AM EDT Abfraction Missing teeth, acquired XR CHEST 2 VIEWS STAT 10/23/2024 1:22 PM EDT COPD exacerbation (CMS/HCC) COMPREHENSIVE METABOLIC PANEL Routine 10/15/2024 10:36 AM [...] ADULT Routine 05/07/2024 9 :00 AM EDT INTRAORAL - COMPLETE SERIES OF [...] PM EDT Narrative 10/23/2024 1:38 PM EDT ?[facility] ?[address] ?[place] [address] ?XRay Report ? Signed ? Patient: Mitchell,Maida I ?MR#: [id number] ?? 71 ? : 1955 ?Acct:[id number] ? Age/Sex: 69 / F ?ADM Date: 10/23/24 ? Loc: HO.HHCX ? Attending Dr: Amelia Montalvo DO ? Ordering Physician: Amelia Montalvo DO ?? Date of Service: 10/23/24 ?? Procedure(s): XR chest 2V ?? Accession Number(s): [id number] ? cc: Amelia Montalvo DO ? EXAMINATION: [...] DD/ 1322 ? TD/TT: 10/23/24 1329 ? Graduate Internship: ? Procedure Note Michael Davila - 10/23/[address] [address] XRay Report Signed Patient: Maida Mitchell [facility]#: [id number] 71 : 3Acct:[id number] Age/Sex: 69 / FADM Date: 10/23/24 Loc: HO.HHCX Attending Dr: Amelia Montalvo DO Ordering Physician: Amelia Montalvo DO Date of Service: 10/23/24 Procedure(s): XR chest 2V Accession Number(s): [id number] cc: Amelia Montalvo DO EXAMINATION: XR CHEST [...] Jeferson Ceballos MD 10/23/2024 01:35 PM EDT RP Dictated By: Jeferson Ceballos MD Signed By: <Electronically signed by Jeferson Ceballos MD in OV> 10/23/24 1335 DD/ 1322 TD/TT: 10/23/24 1329 Graduate Internship: Amelia Montalvo DO IMG XR PROCEDURES Final Resu lt * SARS-CoV-2 RNA, Influenza A/B, and RSV RNA, Ql NAAT (10/15/2024 10:36 AM EDT) Influenza A PCR NEGATIVE Negative [facility] Influenza B PCR NEGATIVE Negative [facility] Resp Syncy Virus RNA Qual PCR NEGATIVE Negative [facility] SARS COV2 PCR NEGATIVE Negative [facility] Comment:All test results mus t [...] use by authorized laboratories.Testing performed on the [employer] GeneXpert utilizingreal-time RT-PCR.All SARS CoV2 and positive influenza A/B results arereported to [facility]. 10/15/2024 10:3 6 AM EDT 10/15/2024 10:41 AM EDT us Generic External Data Provider LAB MICROBIOLOGY - GENERAL ORDERABLES Final Result [facility] [address] [place] [address] [phone] * (ABNORMAL) Comprehensive Metabolic Panel (10/15/2024 10:36 AM EDT) Sodium 143 135 - 145 mmol/L [facility] Potassium 4.0 3.3 - 5.1 mmol/L [facility] Chloride 108 96 - 108 mmol/L [facility] Carbon Dioxide 28 22 - 29 mmol/L [facility] Anion Gap 11(L) 12 - 20 [facility] Urea Nitrogen (BUN) 14 9 - 16 mg/dL [facility] Creatinine, Serum 0.77 0.5 - 1.4 mg/dL [facility] Creatinine Clr Calc Pharmacy 73.5 [facility] Comment:Provided height and weight: 172.72 cm,78.018 kg.eGFR (calculated from the MDRD study equation) and eCrCl(calculated from the Cockcroft-Gault equation) are based ondifferent parameters and may not yield comparable results.If eCrCl result is absurd, please check patient'sheight/weight. Estimated Glomerular Filt Rate >60 [facility] Comment:Chronic Kidney Disea se: Estimated GFR < 60 mL/min/[id number] Kidney Disease: Estimated GFR < 15 mL/min/1.73m2 Glucose 85 60 - 115 mg/dL [facility] Calcium 8.7 8.4 - 10.2 mg/dL [facility] Bilirubin, Total 0.2 0.0 - 1.0 mg/dL [facility] Aspartate Amino Transferase 18 5 - 31 U/L [facility] Alanine Aminotransferase 16 0 - 31 U/L [facility] Total Protein 6.2(L) 6.5 - 8.0 g/dL [facility] Albumin Level 3.8 3.5 - 5.0 g/dL [facility] Alkaline Phosphatase 67 39 - 117 U/L [facility] 10/15/2024 10:3 6 AM EDT 10/15/2024 10:41 AM EDT us Generic External Data Provider LAB BLOOD ORDERAB LES Final Result [facility] [address] [place] [address] [phone] * (ABNORMAL) CBC auto differential (10/15/2024 10:35 AM EDT) White Blood Count 5.6 4.8 - 10.8 X10*3/uL [facility] Red Blood Count 4.38 4.20 - 5.50 X10*6/uL [facility] Hemoglobin 11.6(L) 12.0 - 16.0 g/dl [facility] Hematocrit 36.9(L) 37.0 - 47.0 % [facility] Mean Corpuscular Volume 84.2 80.0 - 98.0 fL [facility] Mean Corpuscular Hemoglobin 26.5(L) 27.0 - 33.0 pg [facility] Mean Corpuscular HGB Conc 31.4 31.0 - 35.0 g/dl [facility] Red Cell Distribution Width 14.5 11.0 - 16.0 % [facility] Platelet Count 288 160 - 400 X10*3/uL [facility] Mean Platelet Volume 8.7(L) 9.4 - 12.3 fL [facility] Neutrophils Percent Auto 55.4 45 - 73 % [facility] Imm Gran Pct Auto 0.2 0.0 - 0.4 % [facility] Lymphocytes Percent Auto 31.5 20 - 40 % [facility] Monocytes Percent Auto 12.5(H) 2 - 11 % [facility] Eosinophils Percent Auto 0.2 0 - 4 % [facility] Basophils Percent Auto 0.2 0 - 2 % [facility] NRBC Pct Auto 0.0 0.0 - 0.2 /100WBC [facility] Neutrophils Absolute Auto 3.1 2.0 - 8.3 x10*3/uL [facility] Imm Gran Abs Auto 0.01 0.00 - 0.03 X10*3/uL [facility] Lymphocytes Absolute Auto 1.8 1.2 - 4.9 X10*3/uL [facility] Monocytes Absolute Auto 0.7 0.1 - 1.2 X10*3/uL [facility] Eosinophils Absolute Auto 0.0 0.0 - 0.4 X10*3/uL [facility] Basophils Absolute Auto 0.0 0.0 - 0.2 X10*3/uL [facility] NRBC Abs Auto 0.000 0.0 - 0.012 X10*3/uL [facility] 10/15/2024 10:3 5 AM EDT 10/15/2024 10:41 AM EDT us Generic External Data Provider LAB BLOOD ORDERAB LES Final Result Performing Organization Address City/[facility]/ZIP Co de Phone Number [facility] [address] [place] [phone] * POCT Rapid Influenza B RUIZ ID NOW (10/12/2024 10:32 AM EDT) Influenza B Negative Negative, Indeterminate [facility] QC Media Lot # [id number] [facility] Lot# Expiration Date [id number] [facility] Swab 10/12/2024 10:3 2 AM EDT Igor Stroud MD POINT OF CARE TEST ENTER/EDIT OR DERABLES Final Result Performing Organization Address [facility]/ZIP Co de Phone Number [facility] [address] [place] [address] [phone] * (ABNORMAL) POCT Rapid Influenza A RUIZ ID NOW (10/12/2024 10:32 AM EDT) Pathologist [facility] Influenza A Positive( A) Negative, Indeterminate [facility] QC Media Lot # [id number] [facility] Lot# Expiration Date [id number] [facility] Swab 10/12/2024 10:3 2 AM EDT Igor Stroud MD POINT OF CARE TEST ENTER/EDIT OR DERABLES Final Result [facility] [address] [place] [address] [phone] * POCT Rapid Covid-19 BinaxNOW (10/12/2024 10:32 AM EDT) Pathologist [facility] Rapid COVID Ag Negative QC Media Lot # [id number] Lot# Expiration Date 71,126 Nares 10/12/2024 10:3 2 AM EDT us Igor Stroud MD POINT OF CARE TEST ENTER/EDIT OR DERABLES Final Result * HEPATITIS C AB W/REFL TO HCV RNA, QN, PCR (01/06/2021 8:12 AM EDT) Pathologist [facility] HEPATITIS C ANTIBODY NON-REACT JLUIOCESAR NON-REACT JULIOCESAR [facility] INDEX 0.01 <1.00 [facility] Comment: ?? HCV antibody was non-reactive. There is no laboratory ?? evidence of HCV infection. ?? In most cases, no further action is required. However, if recent HCV exposure is suspected, a test for HCV RNA (test code 25241) is suggested. ?? For additional information please refer to http://education.[employer]/faq/KPE14a0 (This link is being provided for informational/ educational purposes only.) ?? 01/06/2021 8:12 AM EDT Amelia Montalvo DO HISTORICAL/NON ORDERABLE LAB S Final Result [facility] [address] [place] [phone], * Hm Colonoscopy (05/31/2019 10:01 AM EST) us Historical Provider MD HEALTH MAINTENANCE Final Result from Last 3 Months or Most Recently Relevant to Health Maintenance Insurance [facility] (O D-SNP) [facility] (O D-SNP) [facility] Care Teams Noc Engineer Relationship Specialty Start Date End Date Amelia Montalvo DO [address] [place] [address] PCP - General Family Medicine 06/23/12
--- OUTSIDE RECORDS SUMMARY | 2024-11-14 11:59 | XMS_ITS | Encounter Summary ---
Author Organization [email or web address] Address [address] [facility] [address]t [place] [address] Care Team Providers Care Cut Off Machine Operator Name Role Phone CaitieAmelia vargas Primary Care Provider [phone] Encounter Details Date Type Department Care Team (Late Contact Info) Description 10/07/2022 Orders Only [facility] [address] [place] [address] Amelia Kemp LPN Social History Tobacco Use [...] Description 12/06/2024 1:30 PM EDT Clinical Support [facility] [address] [place] [address] Mai Bishop, JAMAAL 12/06/2024 2:30 PM EDT Office Visit [facility] [address] [place] [address] Kristian Mendoza DDS [address] [place] [address] documented as of this encounter Procedures Procedure Name Priority Date/Time Associated Diagnosis Comments CT HEAD WO CONTRAST Routine 10/22/2022 1 0:52 AM EDT documented in this encounter Results * CT Head w/o Contrast (10/22/2022 10:52 AM EDT) Anatomical Region Laterality Modality Head, Neck Computed Tomogra phy 10/22/2022 10:5 2 AM EDT Narrative 11/02/2022 3:00 PM EDT ? [facility] ?[address] ?[place] [address] ? CT Scan Report ? Signed ? Patient: StephenMaida Child ?MR#: [id number] ?? 71 ? : 1955 ?Acct:[id number] ? Age/Sex: 67 / F ?ADM Date: 10/22/22 ? Loc: HO.CT ? Attending Dr: Igor Landry MD ? Ordering Physician: IGOR LANDRY MD ?? Date of Service: 10/22/22 ?? Procedure(s): CT head/brain wo IV con ?? Accession Number(s): [id number] ? cc: IGOR LANDRY MD ? EXAMINATION: [...] 145 ? DD/ 51 ? TD/TT: ? [employer]: REGINA ? Procedure Note Donkiko, Michael - 11/02/[address] [address] [address] Scan Report Signed Patient: Maida Mitchell IMR#: [id number] 71 : 1955cct:[id number] Age/Sex: 67 / FADM Date: 10/22/22 Loc: HO.CT Attending Dr: Igor Landry MD Ordering Physician: IGOR LANDRY MD Date of Service: 10/22/22 Procedure(s): CT head/brain wo IV con Accession Number(s): [id number] cc: IGOR LANDRY MD EXAMINATION: CT HEAD [...] in OV> 11/02/22 1457 DD/ 1052 TD/TT: [employer]: REGINA [facility] External Provider IMG CT PROCEDURES Edited Result - Final documented in this encounter Visit Diagnoses Not on filedocumented in this encounter Care Teams Cut Off Machine Operator Relationship Specialty Start Date End Date Amelia Montalvo DO [address] [place] [phone] PCP - General Family Medicine 06/23/12 documented as of this encounter
--- OUTSIDE RECORDS SUMMARY | 2024-11-14 11:59 | XMS_ITS | Encounter Summary ---
Author Organization [employer] Address [address] [facility] [address] [place] [address] Care Team Providers Care Carpet Cleaner Name Role Phone Amelia Montalvo DO Primary Care Provider [phone] Reason for Visit * Reason Onset Date Comments Pre-op clearance notes 08/26/2023 Encounter Details Date Type Department Care Team (Late st Contact Info) Description 08/26/2023 Telephone [facility] [address] [place] [address] Amelia Montalvo DO [address] [place] [address] Pre-op clearance notes Social History Tobacco Use [...] 08/15 and it can be faxed to [phone] documented in this encounter Plan of Treatment Upcoming Encounters Date Type Department Care Team (Late st Contact Info) Description 12/06/2024 1:30 PM EDT Clinical Support [facility] [address] [place] [address] Mai Bishop, RN 12/06/2024 2:30 PM EDT Office Visit [facility] [address] [place] [address] Kristian Mendoza DDS [address] [place] [address] documented as of this encounter Visit Diagnoses Not on filedocumented in this encounter Care Teams Carpet Cleaner Relationship Specialty Start Date End Date Amelia Montalvo DO [address] [place] [address] PCP - General Family Medicine 06/23/12 documented as of this encounter
--- OUTSIDE RECORDS SUMMARY | 2024-11-14 11:59 | XMS_ITS | Encounter Summary ---
Author Organization [employer] Address [address] [facility] 7[address] [place] [address] Care Team Providers Care Field Liability Generalist Name Role Phone Amelia Montalvo DO Primary Care Provider + [phone] Reason for Visit * Reason Comments Med Refill Encounter Details Date Type Department Care Team ([facility] st Contact Info) Description 11/15/2023 Refill [facility] [address] [place] [address] Charley Miller MD [address] [place] [address] Social History Tobacco Use Types Packs/Day Years [...] Description 12/06/2024 1:30 PM EDT Clinical Support [facility] [address] [place] [address] Mai iBshop RN 12/06/2024 2:30 PM EDT Office Visit [facility] [address] [place] [address] Kristian Mendoza DDS [address] [place] [address] documented as of this encounter Visit Diagnoses Not on filedocumented in this encounter Care Teams Field Liability Generalist Relationship Specialty Start Date End Date Amelia Montalvo DO [address] [place] [address] PCP - General Family Medicine 06/23/12 documented as of this encounter
--- OUTSIDE RECORDS SUMMARY | 2024-11-14 11:59 | XMS_ITS | Encounter Summary ---
Author Organization [employer] Address [address] [facility] 7t [place] [address] Care Team Providers Care Product Test Specialist Name Role Phone Amelia Montalvo DO Primary Care Provider [phone] Reason for Visit * Reason Comments Med Refill Encounter Details Date Type Department Care Team ([facility] st Contact Info) Description 11/06/2024 Refill [facility] [address] [place] [address] Amelia Montalvo DO [address] [place] [address] Vitamin B12 deficiency Social History Tobacco Use Types Packs/Day Years [...] Description 12/06/2024 1:30 PM EDT Clinical Support [facility] [address] [place] [address] Mai Bishop RN 12/06/2024 2:30 PM EDT Office Visit [facility] [address] [place] [address] Kristian Mendoza DDS [address] [place] [address] documented as of this encounter Visit Diagnoses Diagnosis Vitamin B12 deficiency Other B-complex deficiencies documented in this encounter Additional Health Concerns Assessment Noted Time PHQ-9 Depression Total Score: 18 024 2:12 PM EDT documented as of this encounter Care Teams Product Test Specialist Relationship Specialty Start Date End Date Amelia Montalvo DO [address] [place] [id number] PCP - General Family Medicine 06/23/12 documented as of this encounter
--- OUTSIDE RECORDS SUMMARY | 2024-11-14 11:59 | XMS_ITS | Encounter Summary ---
Author Organization [facility] Address [address] [facility] 7t [place] [address] Care Team Providers Care Advertising Sales Assistant Name Role Phone Amelia Montalvo DO Primary Care Provider [phone] Encounter Details Date Type Department Care Team (Latest Contact Info) Description 01/15/2021 Abstract [facility] Dental, Provider, DDS Social [...] Description 12/06/2024 1:30 PM EDT Clinical Support [facility] [address] [place] [address] Mai Bishop RN 12/06/2024 2:30 PM EDT Office Visit [facility] [address] [place] [address] Kristian Mendoza DDS [address] [place] [address] documented as of this encounter Visit Diagnoses Not on filedocumented in this encounter Care Teams Advertising Sales Assistant Relationship Specialty Start Date End Date Amelia Montalvo DO [address] [place] [address] PCP - General Family Medicine 06/23/12 documented as of this encounter
--- OUTSIDE RECORDS SUMMARY | 2024-11-14 11:59 | XMS_ITS | Data Portability ---
Author Organization [facility] [facility], Main Office Address [address] [facility], [address] [place] [address] Care Team Providers Care Regroover Name Role Phone WESTLEY AMBROCIO - 2ND FLOOR OTHER DIANELYS IYER Primary Care Provider [phone] Assessment Encounter Date Assessment Date Assessment LastModified by Organization Details LastModified Time 01/11/2024 01/11/2024 I have seen and examined the patient independently and confirmed the findings above with the HAND CUTTER student note. Management plan discussed with the HAND CUTTER student personally. [email or web address] Not available 01/11/2024 13:09:31 Plan of Treatment [...] Recorded Time Chronic obstructi ve pulmonary disease 80390624 Active 2023 Jennifer Zaragoza NP [address] [facility], [address], [place], [address], [facility] [employer] 4 14:58:38 Restless legs 83274881 Active 2023 Jennifer Zaragoza NP [address] [facility], [address], [place], [address], [facility] [employer] 4 14:58:57 Osteoarth ritis 760537481 Active 2023 Jennifer Zaragoza NP [address] [facility], [address], [place], [address], [facility] [employer] 4 14:59:07 Gastroeso phageal reflux disease 361666124 Active 2023 Jennifer Zaragoza NP [address], [address], [place], [address], [employer] 4 14:59:12 Abnormal small bowel motility 49497700 Active 2023 Jennifer Zaragoza NP [address], [address], [place], [address], [employer] 4 14:59:26 Allergic rhinitis 55386830 Active 2023 Jennifer Zaragoza NP [address], [address], [place], [address], [employer] 4 14:59:38 Anxiety 50535640 Active 2023 Jennifer Zaragoza NP [address], [address], [place], [place], [address], [employer] [facility] 4 14:59:47 Total knee replaceme nt Active 2023 Jennifer Zaragoza NP [address], [address], [place], [place], [address], [employer] [facility] 4 15:00:05 Pain of right knee region 874465928451 105 Active 2023 Jennifer Zaragoza NP [address], [place], [place], [address], [employer] 4 15:02:07 Migraine 26107333 Completed 202312/23/2023 Jennifer Zaragoza NP [address], [address], [place], [place], [address], [employer] 4 15:02:20 Vertigo 160143834 Active 2023 Jennifer Zaragoza NP [address], [address], [place], [address], [employer] [facility] 4 15:02:40 Asthenia 44103765 Active 2023 Jennifer Zaragoza NP [address], [address], [place], [address], [employer] 4 15:03:52 Headache disorder 492127797 Active 2023 Omkar Clement MD [address], [address], [place], [address], [employer] 4 11:36:49 Primary osteoporo sis 320424670 Active 2023 Omkar Clement MD [address], [address], [place], [address], [employer] 4 11:37:06 Chronic idiopathi c constipat ion 98541628 Active 2023 Omkar Clement MD [address], [place], [address], [employer] 4 11:37:24 Problem Notes None recorded. Procedures Surgical History Date Name Laterality Status Provider Name and Address Organization Details Recorded Time 2023 total replacement of left knee joint completed Jennifer Zaragoza NP [address], [place], [address], [employer] 4 14:43:53 total replacement of right knee joint completed Jennifer Zaragoza NP [address], [place], [address], [employer] 4 14:43:20 operation on external ear completed Jennifer Zaragoza NP [address] [facility], [address], [place], [address], [employer] 4 14:44:10 colonoscopy completed Jennifer Zaragoza NP [address], [address], [place], [address], [employer] 4 14:44:26 esophagogastroduodenoscopy completed Jennifer Zaragoza NP [address], [address], [place], [address], [employer] 4 14:44:38 Imaging Results None recorded. Procedure Notes None recorded. Medical Equipment None Reported. Allergies Allergen ID Allergen Name Allergen Category Reaction Reaction Severity Criticality Documentation Date Start Date Code Code System Note Provider Name and Address Organization Details Recorded Time 17380 vancomyci n medicatio n other Not available high 12/23/2023 89935 RxNorm redne ss swell ing Jennifer Zaragoza NP [address] [facility], [facility] [address], [place], [address], [employer] 4 14:51:32 85684 tetanus and diphtheri a toxoids Not available anaphylax is severe high 12/23/2023 04262 UNK fever Jennifer Zaragoza NP [address] [facility], [address], [place], [address], [employer] [facility] 4 14:52:13 Medications Not known to be on any medication Vitals Date Recorded Body weight Heart rate Respiratory rate Body temperature Oxygen saturation Oxygen saturation in Arterial blood by Pulse oximetry Systolic blood pressure Diastolic blood pressure Provider Name and Address Organization Details Last Updated DateTime 4 29795.4 4 g 75 /min 18 /min 98 [degF] 97 % 97 % 120 mm[Hg] 70 mm[Hg] Jennifer Zaragoza NP [address] [facility] [address], [place], [address], [employer] 4 13:15:38 Date Recorded Body weight Heart rate Respiratory rate Body temperature Oxygen saturation Oxygen saturation in Arterial blood by Pulse oximetry Systolic blood pressure Diastolic blood pressure Provider Name and Address Organization Details Last Updated DateTime 4 57180.4 4 g 64 /min 18 /min 97.6 [degF] 97 % 97 % 124 mm[Hg] 68 mm[Hg] Jennifer Zaragoza NP [address] [facility], [address], [place], [address], [employer] 4 18:04:40 Date Recorded Body weight Heart rate Respiratory rate Body temperature Oxygen saturation Oxygen saturation in Arterial blood by Pulse oximetry Systolic blood pressure Diastolic blood pressure Provider Name and Address Organization Details Last Updated DateTime 4 34101.4 4 g 62 /min 16 /min 98.4 [degF] 98 % 98 % 124 mm[Hg] 68 mm[Hg] Jennifer Zaragoza NP [address] [facility], [facility] [address], [place], [address], [employer] 4 09:59:09 Date Recorded Heart rate Respiratory rate Body temperature Oxygen saturation Oxygen saturation in Arterial blood by Pulse oximetry Systolic blood pressure Diastolic blood pressure Provider Name and Address Organization Details Last Updated DateTime 4 78 /min 18 /min 98.5 [degF] 95 % 95 % 118 mm[Hg] 70 mm[Hg] ANA BENJAMIN NP [address] [facility], [address], [place], [address], [employer] [facility] 4 09:45:01 Date Recorded Body weight Heart rate Respiratory rate Body temperature Oxygen saturation Oxygen saturation in Arterial blood by Pulse oximetry Systolic blood pressure Diastolic blood pressure Provider Name and Address Organization Details Last Updated DateTime 4 42430.8 9 g 70 /min 18 /min 98.2 [degF] 99 % 99 % 129 mm[Hg] 74 mm[Hg] MELISSA SIMON [address] [facility], [address], [place], [address], [employer] 4 17:48:15 Social History Question Answer Notes LastModified by Organizat ion Details LastModified Time Tobacco Smoking Status Former Smoker Jennifer Zaragoza NP [address] [facility], [address], [place], [address], [employer] 12/23/2023 14:48:10 Do You Have An Advance [...] B, unspecified formulation 4 completed Della Jeet [facility] 12/23/2023 10:39:43 Hep B, unspecified formulation 5 completed Della Jeet [facility] 12/23/2023 10:39:51 Hep B, unspecified formulation 5 completed Della Jeet [facility] 12/23/2023 10:39:57 Pneumococcal conjugate PCV 13 9 completed Della Jeet [facility] 12/23/2023 10:40:57 pneumococcal polysaccharide PPV23 5 completed Della Jeet [facility] 12/23/2023 10:41:39 pneumococcal polysaccharide PPV23 2 completed Della Jeet [facility] 12/23/2023 10:41:50 pneumococcal polysaccharide PPV23 1 completed Della Jeet [facility] 12/23/2023 10:41:58 influenza, unspecified formulation 2 completed Della Jeet [facility] 12/23/2023 10:42:16 influenza, unspecified formulation 3 completed Della Jeet [facility] 12/23/2023 10:42:24 SARS-COV-2 (COVID-19) vaccine, UNSPECIFIED 1 completed Della Marcano [facility] 12/23/2023 10:42:40 SARS-COV-2 (COVID-19) vaccine, UNSPECIFIED 1 completed Della Marcano [facility] 12/23/2023 10:42:49 SARS-COV-2 (COVID-19) vaccine, UNSPECIFIED 4 completed Della Marcano [facility] 12/23/2023 10:42:56 zoster live 4 completed Della [facility] 12/23/2023 10:43:30 zoster recombinant 1 completed [facility] 12/23/2023 10:43:50 zoster recombinant 1 completed [facility] 12/23/2023 10:44:01 Past Encounters Encounter ID Performer Location Encounter Start Date Encounter Closed Date Diagnosis/Indication Diagnosis SNOMED-CT Code Diagnosis ICD10 Code Diagnosis Note [id number] Jennifer Zaragoza NP [address] [address] 12/23/2023 14:27:58 12/27/2023 10:39:41 Pain of right knee region 8696255707 29562 M25.561 sp 12/[address] Frostpt/ ot treat and evalfu with ortho in [...] s/s infection Chronic ob structive pulmonary disease 38548996 J44.9 albuterol 2 puff po q 4 prnalb neb q 4hours prn sobflutica sone/salme terol 250/50 bidmonitor Restless legs 69229818 G 25.81 ropinirole 0.25 mg po qhsmonitor Osteoarthritis 604097145 M19.90 now with 2 knee surgeries to help with painwith 2 calcium citrate vit d 3 2 tab bidvit b12 1000 mcg dailyvit d 3 50 mcg po dialyalend ronate 70 mg q weekmonito r Abnormal s mall bowel motility 00277267 R19.8 bm todaymulti vit with iron qdfiber lax 625 mg po qddocusate 100 mg po bidbisacod yl 5 mg po qhsmonitor Gastroesop hageal reflux disease 208668325 K21.9 omeprazole 20 mg bidmetoclo pramide 10 mg po qidlinzess 290 mcgh cap q amfamotidi ne 40 mg po qhszofran 4 mg po q 8 prnmonitor Anxiety 63932742 F41.9 contmirtaz apine 22.5 mg po qhsclonaze ana 1 mg po bid prnmonitor Vertigo 134390936 R42 meclizine 25 mg po tid prn Allergic rhinitis 791620 04 J30.9 azelastine 137mcg intranasal daily both naresfluti casone 50 mcg 2 spray intranasal dailylorat idine 10 mg po dailyzafir lukast 20 mg po bidmonitor Asthenia 20848708 R53.1 pt ot treat and evalmonito r Migraine 47551469 G43.90 9 sumatripta n 100 mg po q 2-4 hours prn (nte 2 doses in 24 hours) [id number] Jennifer Zaragoza NP [address] [address] 12/26/2023 13:46:11 12/29/2023 09:48:46 Pain of right knee region 1704692226 22590 M25.561 sp 12/[address] [...] s/s infection Chronic ob structive pulmonary disease 84807084 J44.9 contalbute rol 2 puff po q 4 prnalb neb q 4hours prn sobflutica sone/salme terol 250/50 bidmonitor Restless legs 03516094 G 25.81 contcropin irole 0.25 mg po qhsmonitor Osteoarthritis 433883722 M19.90 now with 2 knee surgeries to help with painwith 2 calcium citrate vit d 3 2 tab bidvit b12 1000 mcg dailyvit d 3 50 mcg po dialyalend ronate 70 mg q weekmonito r Vertigo 429623117 R42 meclizine 25 mg po tid prn Allergic rhinitis 832909 04 J30.9 azelastine 137mcg intranasal daily both naresfluti casone 50 mcg 2 spray intranasal dailylorat idine 10 mg po dailyzafir lukast 20 mg po bidmonitor Asthenia 94123522 R53.1 pt ot treat and evalmonito r [id number] Omkar Clement MD [address] [address] 12/27/2023 11:30:56 12/29/2023 10:05:35 Osteoarthritis of left knee joint 5743097663 87365 M17.12 end stage OA left knee now s/p TKRASA 325 mg bid for dvt prophylaxi sfollow ortho recs and update with concernsPT OT Eval and treatmonit or for pain control Chronic ob structive pulmonary disease 38487305 J41.1 advair 250/50 bidmonitor respirator y status and albuterol utilizatio n Restless legs 82996820 G 25.81 ropinirole 0.25 mg po qhsmonitor for effect Vertigo 339879485 R42 carrying dxmeclizin e 25 mg po tid prnmonitor for sx and need for further workup Allergic rhinitis 644167 04 J30.2 appears to be significan t issue for patient at baselineco ntinue out patient medsavoid PO steroid given post op statusmoni tor sx Asthenia 60426087 R53.1 PT OT eval and treatmonit or fall risk Chronic id iopathic constipation 56257278 K59.04 appears with dysmotilit y disorderma intained onlinzess 290 mg qdmonitor for effectGI eval prn Primary osteoporosis 276 811033 M81.0 fosamax 70 mg q weekcontin ued Headache disorder 915838 009 G44.89 baseline migraine hxon imitrex prnadded to H Gastroesop hageal reflux disease 430964534 K21.9 famotidine 40 mg qdmonitor for sx relief Cellulitis of left lower limb 5111412002 2197436 L03.116 concern for infection at incision sitestarte d on keflexorth o updated and reeval not felt to be infectedab x d/c'ed [id number] Jennifer Zaragoza NP [facility] [address] 12/28/2023 13:14:27 01/04/2024 15:54:46 Osteoarthritis of left knee joint 1124246089 09756 M17.12 end stage OA left knee now s/p TKRASA 325 mg bid for dvt prophylaxi s until 02/02follow ortho recsand update with concerns and monitor for infectionP T OT Eval and treatmonit or for pain control Cellulitis of left lower limb 9007232609 0350411 L03.116 concern for infection at incision sitestarte d on keflexorth o updated and reeval not felt to be infectedab x d/c'ed on 12/26ice prnwbc is 11.2 on 12/26 elevated, however site is less warm and decreased swellingmo nitor closely for infection and reeval labs on tuesday Asthenia 33660865 R53.1 PT OT eval and treatmonit or fall risk Restless legs 98678075 G 25.81 ropinirole 0.25 mg po qhsmonitor for effect [id number] Jennifer Zaragoza NP [address] [address] 01/04/2024 16:01:53 01/10/2024 09:58:03 Osteoarthritis of left knee joint 4850670698 38932 M17.12 end stage OA left knee now s/p TKRASA 325 mg bid for dvt prophylaxi s until 02/02follow ortho recsand update with concerns and monitor for infectionP T OT Eval and treatmonit or for pain control Asthenia 49084602 R53.1 PT OT eval and treatmonit or fall risk Restless legs 89526943 G 25.81 ropinirole 0.25 mg po qhsmonitor for effect Dysuria 53966233 R30.0 pt with report of dysuria and frequencyu rinalysis with c & spyridium 200 mg po tid prn dysuria to start after sample is obtainedpt educated about orange discolorat ion to urinemonit or ua and consider abx if needed [id number] Jennifer Zaragoza NP [address] [address] 01/06/2024 09:58:30 01/10/2024 11:28:47 Dysuria 57882855 R30.0 UTI ruled outpt with report of dysuria and frequency, states she has not had bowel movement in a few dayssee constipati on01/05 urinalysis with c & s with culture showing no infection dc pyridium 200 mg po tid prnmonitor ua and consider abx if needed Osteoarthr itis of left knee joint 9525506196 36761 M17.12 end stage OA left knee now s/p TKRpt reports ortho visit yesterday and removed suturesste ri strips in place today.nsg to obtain consult info from orthoASA 325 mg bid for dvt prophylaxi s until 02/02foll ortho recsand update with concerns and monitor for infectionP T OT Eval and treatmonit or for pain control Asthenia 19781192 R53.1 PT OT eval and treatmonit or fall risk Abnormal s mall bowel motility 84714767 R19.8 no bm in a few daysmultiv it with iron qdfiber lax 625 mg po qddocusate 100 mg po bidbisacod yl 5 mg po qhs01/05inc rease senna to 2 tabs per daygive mom 30cc todaymonit or [id number] ANA BENJAMIN NP [facility] [address] 01/11/2024 09:00:48 01/19/2024 12:49:58 Abnormal small bowel motility 53671249 R19.8 no bm in a few days (reported the other day)Review ed BM log- pt still continues with not having a BM- last BM was 01/09 which was medium and 01/08 which was small, otherwise hadn't pooped in roughly 4 days prior. Is on linzess 290 mg qd for IBS - perhaps this needs to be heldContin ue:fiber lax 625 mg po qddocusate 100 mg po bidbisacod yl 10 mg po qhssenna 2 tabs qd Add miralax dailyMonit or bowels Dysuria 13060265 R30.0 UTI ruled outpt had reported dysuria and frequency on 01/05 - no complaints today, seems resolved urinalysis with c & s with culture neg01/05 dc pyridium 200 mg po tid prnmonitor sx. Osteoarthr itis of left knee joint 0351244428 94367 M17.12 end stage OA left knee now [...] home Sat. 7/6monitor for pain control Asthenia 66204718 R53.1 PT OT eval and treatSee above, meeting rehab goals, goal home 7/6monitor fall risk [id number] MELISSA SIMON [facility] [address] [address] 01/13/2024 11:41:32 01/19/2024 13:26:02 Osteoarthritis of left knee joint 1437664293 38360 M17.12 end stage OA left knee now s/p TKRASA 325 mg bid for dvt prophylaxi sfollow up with ortho outpatient Restless legs 03082319 G 25.81 ropinirole 0.25 mg po qhs Chronic ob structive pulmonary disease 30324474 J41.1 advair 250/50 bid Vertigo 336628644 R42 carrying dxmeclizin e 25 mg po tid prnmonitor for sx and need for further workupfoll ow up outpatient Allergic rhinitis 089209 04 J30.2 appears to be significan t issue for patient at baselineco ntinue out patient medsavoid PO steroid given post op statusmoni tor sx Chronic id iopathic constipation 23841251 K59.04 appears with dysmotilit y disorderma intained onlinzess 290 mg qdmonitor for effectGI eval prn Primary osteoporosis 276 406793 M81.0 fosamax 70 mg q weekcontin ued Headache disorder 592936 009 G44.89 baseline migraine hxon imitrex prnadded to PMH Gastroesop hageal reflux disease 653229959 K21.9 famotidine 40 mg qdmonitor for sx relief Abnormal s mall bowel motility 84554693 R19.8 Continue:l inzess 290 mg qd for IBSfiber lax 625 mg po qd docusate 100 mg po bid bisacodyl 10 mg po qhs senna 2 tabs qd miralax 17 gn daily Anxiety 11342643 F41.9 contmirtaz apine 22.5 mg po qhsclonaze ana 1 mg po bid prnmonitor Osteoarthritis 614192188 M19.90 now with 2 knee surgeries to [...] Kimble Member ID Guarantor Name 12/28/2023 1 [facility] - DOS ON OR AFTER 2022 - MEDICARE ADVANTAGE [place]MEDICARE REPLACEMENT/ADV ANTAGE - PPO) Maida Mitchell [id number] Maida Mitchell 01/04/2024 1 [facility] - DOS ON OR AFTER 2022 - [place]IC[place]AGE [place]/ADV ANTAGE - PPO) Maida Mitchell [id number] Maida Mitchell 01/06/2024 1 [facility] - DOS ON OR AFTER 2022 - [place]IC[place]/ADV ANTAGE - PPO) Maida Mitchell [id number] Maida Mitchell 01/11/2024 1 [facility] - DOS ON OR AFTER 2022 - [place]IC[place]/ADV ANTAGE - PPO) Maida Mitchell [id number] Maida Mitchell 01/13/2024 1 [facility] - DOS ON OR AFTER 2022 - [place]IC[place]/ADV ANTAGE - PPO) Maida Mitchell [id number] Maida Mitchell Notes Date Note Type Note [...] bid for DVT prophylaxis. She is at [facility] for rehab and continued care felt to [...] or complaints today. Jennifer Zaragoza, KERLINE [address] [facility], [address], [place], [address], [facility] [employer] [facility] 12/28/2023 13:29:09 01/04/2024 text/html Pt is seen for a n acute rounding visit. She is a 68 yo female admit from hospital after presenting with end stage OA left knee for TKR having failed conservative treatment without complications in hospital on ASA 325 mg bid for DVT prophylaxis. She is at [facility] for rehab and continued care felt to [...] No cva tenderness. Jennifer Zaragoza NP [address] [facility] [address], [place], [address], [employer] 01/04/2024 18:17:27 01/06/2024 text/html Pt is seen [...] and well approximated. Jennifer Zaragoza NP [address] [facility], [address], [place], [address], [facility] 01/06/2024 10:22:58 01/11/2024 text/html Pt is seen [...] trouble breathing (although does have asthma/COPD). ANA BENJAMIN NP [address] [facility] [address], [place], [address], [facility] 01/11/2024 13:15:56 01/13/2024 text/html Maida is a 68 yr old female seen today for discharge on 01/14/24. Admitted to [facility] from hospital after presenting with end stage [...] [facility]. she can be discharge to home with medications, PT/OT and vna services. PMH is significant for OA,anxiety,RLS,gerd ,copd,chronic constipation,vertig o migraine LARA, osteoporosis MLEISSA SIMON [address] [facility], [address], [place], [address], [facility] 01/13/2024 17:48:53 OBGyn Episode No OBEpisode recorded.
--- OUTSIDE RECORDS SUMMARY | 2024-11-14 11:59 | XMS_ITS | Encounter Summary ---
Author Organization [employer] Address [address] [facility] [address]t [place] [address] Care Team Providers Care Size Tester Name Role Phone Amelia Montalvo DO Primary Care Provider [phone] Encounter Details Date Type Department Care Team (Late st Contact Info) Description 10/26/[address] [facility] [address] [place] [id number] Michelle Vides LPN Social History Tobacco Use [...] Description 12/06/2024 1:30 PM EDT Clinical Support [facility] [address] [place] [address] Mai Bishop, JAMAAL 12/06/2024 2:30 PM EDT Office Visit [facility] [address] [place] [address] Kristian Mendoza DDS [address] [place] [address] documented as of this encounter Visit Diagnoses Not on filedocumented in this encounter Care Teams Size Tester Relationship Specialty Start Date End Date Amelia Montalvo DO [address] [place] [address] PCP - General Family Medicine 06/23/12 documented as of this encounter
--- OUTSIDE RECORDS SUMMARY | 2024-11-14 11:59 | XMS_ITS | Data Portability ---
Author Organization [employer], [email or web address] Address [address] [place] [address] Care Team Providers Care Linen Room Houseperson Name Role Phone HIM [facility] OTHER [facility] Primary Care Provider Assessment Encounter Date Assessment Date Assessment LastModified by Organization Details LastModified Time 07/28/2023 07/28/2023 I provided real -time medical direction via phone for this encounter, and was available for additional phone based assistance as needed. I have reviewed and agree with the Assessment and Plan as documented by the Assembler Dc Field Yoke. We discussed the diagnostic uncertainty of home [...] in the field was performed by my assistant oceanographer colleague, as noted above, I provided real-time [...] worsening serious symptoms, particularlyworsening shortness of breath [email or web address] Not available 04/11/2024 18:52:12 Plan of Treatment Reminders Order Date Submit Date Provider Last Modified By Organization Details Last Modified Time Details Appointments None recorded. Lab influenza virus A + B and SARS CoV 2 (COVID-19) and RSV RNA panel, AKASH+probe, respiratory specimen 2023 [place] (Centralized Electronic Ordering - All Locations), Patient Can Go To The Location Of Their Choice, [id number] 04:09:28 rapid SARS CoV 2 Ag, QL IA, respiratory specimen 2023 024 [email or web address] 0 [facility], [address] [place] [address], [id number] 12:36:39 rapid flu (A+B) 2023 024 [email or web address] 0 [facility], [address] [place] [address], [id number] 12:36:41 Referral None recorded. Procedures None recorded. Surgeries None recorded. Imaging None recorded. Medication Orders prednisone 20 mg tablet 2023 [email or web address] [facility], [address] [place] [address], [id number], 16:11:44 prednisone 20 mg tablet 2023 [facility], [address] [place] [address], [id number], 4 12:49:19 albuterol sulfate 2.5 mg/3 mL (0.083 %) solution for nebulizatio n 2023 [facility], [address] [place] [address], [id number], 4 12:49:19 Zithromax Z-Thomas 250 mg tablet 2023 024 [facility], [address] [place] [address], [id number], 4 12:26:06 Mucinex DM 30 mg-600 mg tablet,exte nded release 12 hr 2023 024 [facility], [address] [place] [address], [id number], 4 11:00:00 Patient TargetsNo targets recorded. Patient InstructionsNo instructions recorded. Reason for Referral None Reported. Results Created Date Observation Date Name Description Value Unit Range Abnormal Flag Note LastModifiedBy Organization Detail LastModifiedTime 07/28/1907/28/2023 COVID -19, RSV, FLU A/B PCR covid-19 PCR specimen source NASAL Not Available [facility] (Centralized Electronic Ordering - All Locations) Patient Can Go To The Location Of Their Choice, [id number] 07/29/2023 04:09:28 07/28/1907/29/2023 COVID -19, RSV, FLU [...] Go To The Location Of Their Choice, [id number] 07/29/2023 04:09:28 07/28/1907/29/2023 COVID -19, RSV, FLU [...] ng. Resul t repor pilar to the [facility]. All test resul ts must be corre lated with clini cynthia findi ngs. This test has been autho rized by the FDA under an Emerg ency Use Autho rizat ion (EUA) for use by autho rized labor atori es. Testi ng perfo rmed on the [employer] id GeneX pert utili zing real- time RT-PC R. Not Available [facility] (Centralized Electronic Ordering - All Locations) Patient Can Go To The Location Of Their Choice, 07/29/2023 04:09:28 07/28/19 24 07/28/2023 rapid flu (A+B) Flu negati ve Not Available [facility] [address] [place] [address], [id number] 07/28/2023 12:36:12 07/28/19 24 07/28/2023 rapid SARS CoV 2 Ag, QL IA, respi rator y speci men rapid SARS CoV 2 Ag, QL IA, respiratory specimen negati ve Not Available [facility] [address] [place] [address], [id number] 07/28/2023 12:36:04 Result Notes None recorded. Medical Equipment None Reported. Allergies Allergen ID Allergen Name Allergen Category Reaction Reaction Severity Criticality Documentation Date Start Date Code Code System Note Provider Name and Address Organization Details Recorded Time 4376 vancomyci n medicatio n Not available Not available Not available 07/28/2023 78733 RxNorm Not Available [facility] - production 4 03:35:06 4377 Vaccine product containin g only Clostridi um tetani antigen (medicina l product) medicatio n Not available Not available Not available 07/28/2023 [id number] 2002 SNOMED Janette Nice MD [address] [place] [address],[address], [place], [phone], [place] [employer] 4 12:27:09 Medications Name Sig Start Date Stop Date Status Note LastModified by Organization Details LastModified Time medbox status USE DIRECTED active Not Available Not Available No t Available pulse oximet airial [id number] USE FOR SHORTNESS OF BREATH OR FOR [...] mm[Hg] 138 mm[Hg] 86 mm[Hg] Not Available [employer] 4 12:42:06 Date Recorded Oxygen saturation Oxygen saturation in Arterial blood by Pulse oximetry Heart rate Respiratory rate Body temperature Systolic blood pressure Diastolic blood pressure Provider Name and Address Organization Details Last Updated DateTime 4 99 % 99 % 74 /min 16 /min 98.1 [degF] 126 mm[Hg] 74 mm[Hg] Not Available [employer] 4 16:47:25 Date Recorded Body weight Oxygen saturation Oxygen saturation in Arterial blood by Pulse oximetry Body height Body temperature Respiratory rate Heart rate Systolic blood pressure Diastolic blood pressure Provider Name and Address Organization Details Last Updated DateTime 4 49486.2 64 g 97 % 97 % 172.72 cm 97.7 [degF] 17 /min 97 /min 120 mm[Hg] 90 mm[Hg] Not Available [employer] - production 12:21:43 Date Recorded Body temperature Heart rate Oxygen saturation Oxygen saturation in Arterial blood by Pulse oximetry Systolic blood pressure Diastolic blood pressure Provider Name and Address Organization Details Last Updated DateTime 4 98.1 [degF] 77 /min 98 % 98 % 138 mm[Hg] 94 mm[Hg] Not Available [employer] - production 4 16:07:34 Social History None recorded. Functional Status None recorded. Mental Status None recorded. Family History Nothing Reported. Medical History No medical history recorded. Gynecological HistoryNo gynecological history recorded. Obstetrics History GPAL:G 0 P 0 0 0 0 Past Encounters Encounter ID Performer Location Encounter Start Date Encounter Closed Date Diagnosis/Indication Diagnosis SNOMED-CT Code Diagnosis ICD10 Code Diagnosis Note [id number] Janette Nice MD [facility] [address] [place] [phone] 07/28/2023 12:22:19 07/31/2023 13:34:03 Upper respiratory infection 24329520 J06.9 Likely viral. Advised we will call [...] afebrile without color nasal discharge or sputum [id number] Fortino Guzman MD [facility] [address] [place] [phone] 08/08/2023 16:47:19 08/09/2023 11:01:47 Viral upper respiratory tract infection 690292986 J06.9 Acute bronchitis 8234256 2 J20.9 This 77-year-ol d male has had congestion and a cough for almost a month. Mucinex DM hasn't been effective. I ordered a Z-Thomas. He will follow-up with his PCP for any persistent symptoms. The patient agreed with this plan. [id number] Lisys San MD Main - [facility] [phone] 01/24/2024 12:21:41 01/24/2024 18:25:34 Cough 13151334 R05.9 68 year old female with a [...] assessment and plan as documented by the assistant oceanographer. I provided real-time medical direction for this encounter and was immediatel y available to provide additional phone-base d assistance as needed. We discussed the diagnostic uncertaint y of home visits and associated risks. We discussed the need to seek care urgently/e mergently in the setting of any new or worsening symptoms. [id number] Jeet Stovall MD [facility] [address] [place] [phone] 04/11/2024 16:07:31 04/11/2024 23:08:50 Acute exacerbation of chronic obstructive pulmonary disease 307919874 J44.1 Health Concerns Section Related Observation LastModified by Organization Detai ls LastModified Time None Recorded Concern Status LastModified by Organization Details LastModified Time None Recorded Advance Directives Directive None Recorded Payers Insurance Date Sequence Insurance Name Policy Number Policy Kimble Covered Member ID Kimble Member ID Guarantor Name 04/12/2024 1 [facility] - DOS ON OR AFTER 2022 - DUAL ELIGIBLE - PENITENTIARY OPTIONS AND ONE CARE (MEDICARE REPLACEMENT/ADV ANTAGE - HMO) Maida Mitchell [id number] Maida Mitchell Notes Date Note Type Note [...] Weakness/Lethargy, Headache, Asthma, COPDPMH: COPD/AsthmaAllergie s: VancomycinComments: Director Retail Brand Development verified the member's name//address and phone number [...] ................... ................... ................... ................... ................... ................... ........ Assembler Dc Field Yoke Note From Humza Rabago: Encountered patient conscious, [...] and Covid swaps performed, both resulted negative, [facility] advised. Skin warm, dry, and of appropriate color for ethnicity. Head and neck, free of trauma and edema. -JVD. Breath sounds present and clear and left bilaterally, right breath sounds exhibit fine rails in the upper and lower lobes. Abdomen soft, non-tender non-distended. Extremities is free of trauma and edema. [facility] contacted: orders for PCR and orthostatic vital science performed results reported to [facility] swab [facility] be [facility] to [facility] laboratory. [facility] to write prescription for medication regimen at patient? s pharmacy of choice. Red flags discussed with patient, patient urged to seek further medical attention. Should she develop priority symptoms, such as chest pain, syncope, fevers, acute shortness of breath or changes in vision. Patient expresses understanding and would like to remain home at this time. Assembler Dc Field Yoke Allergies: Vancomycin ................... ................... ................... ................... ................... [...] during the exam Janette Nice MD [address] [facility],[address], [place], [phone], [employer] 07/29/2023 00:10:48 08/08/2023 text/html CRC Nurse Triage Notes (Demetra Romero): Reason For Request: sob Chief Complaints: Shortness of Breath/Dyspnea PMH: COPD/Asthma Allergies: Vancomycin Comments: Verified identity/ / address Call completed with recordist Member is a 68 yr old female, [facility] calling for member with increased weakness and sob for over a week. Per WOOLING MACHINE OPERATOR , inst[facility] went out on 07/28. Member was found to be Negative per PCR and mucinex sent . Per member is taking medication. Member is not on home , but has neb . Member dry cough, no wheezing when breathing Fortino Guzman MD [address] [facility],[address], [place], [phone], [facility] 08/08/2023 17:01:14 01/24/2024 text/html HPI: Member had [...] No further information needed to process visit. Assembler Dc Field Yoke POC Test Results from Yared Saenz Rapid COVID antigen (12:49:53) COVID: - ................... ................... ................... ................... ................... ................... ................... ........ Assembler Dc Field Yoke Note From Yared Saenz: [facility] dispatched for a 68 YO F complaining [...] prescribed. PT still drinking plenty of fluids. [facility] performs rapid PCR covid test which is negative. PT denies takin any OTC medication for the pain. [facility] contacts PT [facility] who recommends fluids and rest at home. Believes this to be a viral common cold and to let it run its course. [facility] also recommends to follow up with GI doctor about any recent changes with her eating changes or pain levels. [facility] explains to pt that if she experiences any sudden onset SOB, chest pain or sudden N/v that she should contact [facility] for a higher level of care. ................... ................... ................... ................... ................... ................... ................... ........ Disposition: Fulfilled Lissy San MD [address] [place] [address],[address], [place], [address], [employer] 01/24/2024 13:37:22 04/11/2024 text/html CRC Nurse Triage Notes (Demetra Romero): Reason For Request: PT reporting chest tightness + and some shortness of breath Chief Complaints: Shortness of Breath/Dyspnea PMH: COPD/Asthma Allergies: Vancomycin Comments: Director Retail Brand Development verified the member's name//address and phone number. Member is a 68 yr old divehi female , a/o3 PMH >ASthma / copd [...] ................... ................... ................... ................... ................... ................... ........ Assembler Dc Field Yoke Note From Ayo Tomlin: Dispatched for evaluation of a 68 y/o female, Kinyarwanda speaking only, complaining and requesting an evaluation of shortness of breath and tightness in chest. Upon arrival to pt apartment, pt ambulatory waiting for providers at door. Pt sat on couch and assessment performed, vital signs obtained. Language line utilized due to pt speaking Kinyarwanda only, with pt and providers able to communicate in short sentences in [place]. Assessment found CAOX4, airway open and patent, [...] confirmed pt allergies and pharmacy and contacted [facility]. [facility] ordered Duoneb treatment and to call back after treatment completed with further assessment. Duoneb administered with pt stating improvement in symptoms upon completion, lung sounds clear in all [place], pt work of breathing noted to be improved, pt breathing slower and with less effort. [facility] contacted with update, [facility] ordering second duoneb and 40mg prednisone, with [facility] sending prednisone prescription to pt pharmacy. Providers administered 40mg prednisone and began duoneb treatment. Red flags discussed. Providers then left the residence. All times approximate. ................... ................... ................... ................... ................... ................... ................... ........ Disposition: Fulfilled Jeet Stovall MD [address] [facility],[address], [place], [address], [employer] 04/11/2024 18:52:26 OBGyn Episode No OBEpisode recorded.
--- OUTSIDE RECORDS SUMMARY | 2024-11-14 11:59 | XMS_ITS | Encounter Summary ---
Author Organization [employer] [facility] Address [address] [facility] 7t [place] [address] Care Team Providers Care Manager Sound Name Role Phone Amelia Montalvo DO Primary Care Provider [phone] Encounter Details Date Type Department Care Team (Latest Contact Info) Description 06/04/2020 Abstract [facility] CONVERSIONS Dental, Provider, DDS Social [...] 1:30 PM EDT Clinical Support [facility] MEDICINE [address] [place] [address] Mai Bishop RN 12/06/2024 2:30 PM EDT Office Visit [facility] ADULT DENTAL [address] [place] [address] Kristian Mendoza DDS [address] [place] [address] documented as of this encounter Visit Diagnoses Not on filedocumented in this encounter Care Teams Manager Sound Relationship Specialty Start Date End Date Amelia Montalvo DO [address] [place] [address] PCP - General Family Medicine 06/23/12 documented as of this encounter
--- OUTSIDE RECORDS SUMMARY | 2024-11-14 11:59 | XMS_ITS | Encounter Summary ---
Author Organization [employer] Address [address] [facility] [address] [place] [address] Care Team Providers Care Rn Team Leader Name Role Phone BharathAmelia martins Primary Care Provider [phone] Encounter Details Date Type Department Care Team (Late st Contact Info) Description 11/04/2022 Abstract [facility] MEDICINE [address] [place] [address] Amelia Montalvo DO [address] [place], [place] [phone] Social History Tobacco Use Types Packs/Day Years [...] 1:30 PM EDT Clinical Support [facility] MEDICINE [address] [place] [address] Mai Bishop RN 12/06/2024 2:30 PM EDT Office Visit [facility] ADULT DENTAL [address] [place] [phone] Kristian Mendoza DDS [address] [place] [address] documented as of this encounter Visit Diagnoses Not on filedocumented in this encounter Care Teams Rn Team Leader Relationship Specialty Start Date End Date Amelia Montalvo DO [address] [place] [address] PCP - General Family Medicine 06/23/12 documented as of this encounter
--- OUTSIDE RECORDS SUMMARY | 2024-11-14 11:59 | XMS_ITS | Encounter Summary ---
Author Organization [employer] Address [address] [facility] 7t [place] [address] Care Team Providers Care Lamp Inspector Name Role Phone Amelia Montalvo DO Primary Care Provider + [phone] Reason for Visit * Reason Comments Med Refill Encounter Details Date Type Department Care Team (Late st Contact Info) Description 12/07/2022 Refill [facility] [address] [place] [address] Iram Ascencio FNP Social History Tobacco Use [...] Description 12/06/2024 1:30 PM EDT Clinical Support [facility] MEDICINE [address] [place] [address] Mai Bishop RN 12/06/2024 2:30 PM EDT Office Visit [facility] ADULT DENTAL [address] [place] [address] Kristian Mendoza DDS [address] [place] [address] documented as of this encounter Visit Diagnoses Not on filedocumented in this encounter Care Teams Lamp Inspector Relationship Specialty Start Date End Date Amelia Montalvo DO [address] [place] [address] PCP - General Family Medicine 06/23/12 documented as of this encounter
--- OUTSIDE RECORDS SUMMARY | 2024-11-14 11:59 | XMS_ITS | Encounter Summary ---
Author Organization [employer] Address [address] [facility] [address] [place] [address] Care Team Providers Care Bulk Fluids Handler Name Role Phone Amelia Montalvo DO Primary Care Provider [phone] Encounter Details Date Type Department Care Team (Late st Contact Info) Description 09/13/[address] [facility] MED & PEDS [address] [place] [address] Amelia Kemp LPN Social History Tobacco Use [...] Clinical Support [facility] MEDICINE [address] [place] [address] Mai Bishop RN 12/06/2024 2:30 PM EDT Office Visit [facility] ADULT DENTAL [address] [place] [address] Kristian Mendoza DDS [address] [place] [address] documented as of this encounter Visit Diagnoses Not on filedocumented in this encounter Care Teams Bulk Fluids Handler Relationship Specialty Start Date End Date Amelia Montalvo DO [address] [place] [address] PCP - General Family Medicine 06/23/12 documented as of this encounter
--- OUTSIDE RECORDS SUMMARY | 2024-11-14 11:59 | XMS_ITS | Encounter Summary ---
Author Organization [employer] Address [address] [facility] [address] [place] [address] Care Team Providers Care Winding Inspector Name Role Phone Amelia Montalvo DO Primary Care Provider [phone] Reason for Visit * Reason Comments Med Refill Encounter Details Date Type Department Care Team ([facility] st Contact Info) Description 03/14/2024 Refill [facility] MEDICINE [address] [place] [address] Amelia Montalvo DO [address] [place] [address] Other specified anxiety disorders Social History Tobacco [...] Description 12/06/2024 1:30 PM EDT Clinical Support [facility] MEDICINE [address] [place] [address] Mai Bishop RN 12/06/2024 2:30 PM EDT Office Visit [facility] ADULT DENTAL [address] [place] [address] Kristian Mendoza DDS [address] [place] [address] documented as of this encounter Visit Diagnoses Diagnosis Other specified anxiety disorders documented in this encounter Additional Health Concerns Assessment Noted Time PHQ-9 Depression Total Score: 18 024 2:12 PM EDT documented as of this encounter Care Teams Winding Inspector Relationship Specialty Start Date End Date Amelia Montalvo DO [address] [place] [address] PCP - General Family Medicine 06/23/12 documented as of this encounter
--- OUTSIDE RECORDS SUMMARY | 2024-11-14 11:59 | XMS_ITS | Encounter Summary ---
Author Organization [employer] Address [address] [facility] [address] [place] [address] Care Team Providers Care Habilitation Training Specialist Name Role Phone Amelia Montalvo DO Primary Care Provider [phone] Reason for Visit * Reason Onset Date Comments Med Refill 11/12/2024 Encounter Details Date Type Department Care Team (Late st Contact Info) Description 11/12/2024 Refill [facility] MED [facility] PEDS [address] [place] [address] Amelia Montalvo DO [address] [place] [address] Other specified anxiety disorders Social History Tobacco [...] encounter Miscellaneous Notes * Addendum Note - Ya Bishop RN - 11/12/2024 1:09 PM EDTAddended by: YA BISHOP on: 11/12/2024 01:09 PM Modules accepted: Orders * Telephone Encounter - Michelle Vides LPN - 11/12/2024 12:56 PM EDT Received request on clonazePAM (KlonoPIN) 1 MG tablet documented in this encounter Plan of Treatment Upcoming Encounters Date Type Department Care Team (Late st Contact Info) Description 12/06/2024 1:30 PM EDT Clinical Support [facility] MEDICINE [address] [place] [address] Mai Bishop RN 12/06/2024 2:30 PM EDT Office Visit [facility] ADULT DENTAL [address] [place] [address] Kristian Mendoza DDS [address] [place] [address] documented as of this encounter Visit Diagnoses Diagnosis Other specified anxiety disorders documented in this encounter Additional Health Concerns Assessment Noted Time PHQ-9 Depression Total Score: 18 024 2:12 PM EDT documented as of this encounter Care Teams Habilitation Training Specialist Relationship Specialty Start Date End Date Amelia Montalvo DO [address] [place] [address] PCP - General Family Medicine 06/23/12 documented as of this encounter
--- OUTSIDE RECORDS SUMMARY | 2024-11-14 11:59 | XMS_ITS | Encounter Summary ---
Author Organization [employer] Address [address] [facility] [address] [place] [address] Care Team Providers Care Screw Remover Name Role Phone Amelia Montalvo DO Primary Care Provider + [phone] Reason for Visit * Reason Comments Med Refill Encounter Details Date Type Department Care Team (Late st Contact Info) Description 11/07/2023 Refill [facility] MEDICINE [address] [place] [address] Amelia Montalvo DO [address] [place] [address] Other specified anxiety disorders Social History Tobacco [...] Description 12/06/2024 1:30 PM EDT Clinical Support [facility] MEDICINE [address] [place] [address] Mai Bishop RN 12/06/2024 2:30 PM EDT Office Visit [facility] ADULT DENTAL [address] [place] [address] Kristian Mendoza DDS [address] [place] [address] documented as of this encounter Visit Diagnoses Diagnosis Other specified anxiety disorders documented in this encounter Care Teams Screw Remover Relationship Specialty Start Date End Date Amelia Montalvo DO [address] [place] [address] PCP - General Family Medicine 06/23/12 documented as of this encounter
--- OUTSIDE RECORDS SUMMARY | 2024-11-14 11:59 | XMS_ITS | Encounter Summary ---
Author Organization [employer] [facility] Address [address] [facility] 7t [place] [address] Care Team Providers Care Heat And Vent Aircraft Mechanic Name Role Phone Amelia Montalvo DO Primary Care Provider [phone] Encounter Details Date Type Department Care Team (Late st Contact Info) Description 10/21/2023 Orders Only [facility] [address] [place] [address] Provider, MD Santos Social History Tobacco Use [...] Description 12/06/2024 1:30 PM EDT Clinical Support [facility] [address] [place] [address] Mai Bishop RN 12/06/2024 2:30 PM EDT Office Visit [facility] ADULT DENTAL [address] [place] [address] Kristian Mendoza DDS [address] [place] [address] documented as of this encounter Procedures Procedure Name Priority Date/Time Associated Diagnosis Comments HM COLONOSCOPY Routine 05/31/2019 10:01 AM EST documented in this encounter Results * Hm Colonoscopy (05/31/2019 10:01 AM EST) us Historical Provider HEALTH MAINTENANCE Final Result documented in this encounter Visit Diagnoses Not on filedocumented in this encounter Care Teams Heat And Vent Aircraft Mechanic Relationship Specialty Start Date End Date Amelia Montalvo DO [address] [place] [address] PCP - General Family Medicine 06/23/12 documented as of this encounter
== END 2024-11-14 11:35 | disposition home or self-care (01) ==
LOC: HO.HPS 10:41
PROVIDERS: PCP Family Medicine; Visit Provider Internal Medicine
DX: J44.9 Chronic obstructive pulmonary disease, unspecified (principal); F41.9 Anxiety disorder, unspecified; J30.9 Allergic rhinitis, unspecified
CPT/HCPCS: 99213

== ENCOUNTER → 2024-11-14 10:41 | Outpatient (BNVA) | payer OTHER, SELFPAY | PROVIDERS: PCP Family Medicine; Visit Provider Internal Medicine | DX: J44.9 Chronic obstructive pulmonary disease, unspecified (principal); J30.9 Allergic rhinitis, unspecified; F41.9 Anxiety disorder, unspecified; Z87.891 Personal history of nicotine dependence | CPT/HCPCS: 99212 ==

== ENCOUNTER 2024-11-27 06:15 | Outpatient (REF) | payer OTHER, SELFPAY ==
--- OUTSIDE RECORDS SUMMARY | 2024-11-27 06:18 | XMS_ITS | Encounter Summary ---
Author Organization [employer] Address [address] [facility] 7t [place] [address] Care Team Providers Care Kaiawhina Kohanga Reo Name Role Phone Amelia Montalvo Primary Care Provider + [phone] Reason for Visit * Reason Comments Med Refill Encounter Details Date Type Department Care Team ([facility] st Contact Info) Description 10/25/2023 Refill [facility] [address] [place] [address] Iram Ascencio FNP Social History Tobacco Use [...] Description 12/06/2024 1:30 PM EDT Clinical Support [facility] [address] [place] [address] Mai Bishop RN 12/06/2024 2:30 PM EDT Office Visit [facility] ADULT DENTAL [address] [place] [address] Kristian Mendoza DDS [address] [place] [address] 06/20/2025 1:00 PM EST Office Visit [facility] ADULT D[facility] [address] [place] [address] Sujey Cerda documented as of this encounter Visit Diagnoses Not on filedocumented in this encounter Care Teams Kaiawhina Kohanga Reo Relationship Specialty Start Date End Date Amelia Montalvo DO [address] [place], [place] [phone] PCP - General Family Medicine 06/23/12 documented as of this encounter
--- OUTSIDE RECORDS SUMMARY | 2024-11-27 06:18 | XMS_ITS | Data Portability ---
Author Organization [facility], Main Office Address [address] [facility] [place] [address] Care Team Providers Care Diabetic Educator Name Role Phone WESTLEY AMBROCIO - 2ND FLOOR OTHER DIANELYS IYER Primary Care Provider [phone] Assessment Encounter Date Assessment Date Assessment LastModified by Organization Details LastModified Time 01/11/2024 01/11/2024 I have seen and examined the patient independently and confirmed the findings above with the [employer] student note. Management plan discussed with the [employer] student personally. [email or web address] Not available 01/11/2024 13:09:31 Plan of Treatment [...] Recorded Time Chronic obstructi ve pulmonary disease 05894785 Active 2023 Jennifer Zaragoza NP [address] [facility], [address], [place], [address], [facility] 4 14:58:38 Restless legs 08948348 Active 2023 Jennifer Zaragoza NP [address] [facility], [address], [place], [address], [facility] 4 14:58:57 Osteoarth ritis 908186806 Active 2023 Jennifer Zaragoza NP [address] [facility], [address], [place], [address], [facility] 4 14:59:07 Gastroeso phageal reflux disease 048534699 Active 2023 Jennifer Zaragoza NP [address], [address], [place], [address], [facility] 4 14:59:12 Abnormal small bowel motility 63993718 Active 2023 Jennifer Zaragoza NP [address], [address], [place], [address], [facility] 4 14:59:26 Allergic rhinitis 62976024 Active 2023 Jennifer Zaragoza NP [address], [address], [place], [address], [facility] 4 14:59:38 Anxiety 73612217 Active 2023 Jennifer Zaragoza NP [address], [address], [place], [place], [address], [facility] 4 14:59:47 Total knee replaceme nt Active 2023 Jennifer Zaragoza NP [address], [address], [place], [place], [address], [facility] 4 15:00:05 Pain of right knee region 090861459636 105 Active 2023 Jennifer Zaragoza NP [address], [place], [place], [address], [facility] 4 15:02:07 Migraine 35271984 Completed 202312/23/2023 Jennifer Zaragoza NP [address], [address], [place], [place], [address], [facility] 4 15:02:20 Vertigo 299277614 Active 2023 Jennifer Zaragoza NP [address], [address], [place], [address], [facility] 4 15:02:40 Asthenia 31420672 Active 2023 Jennifer Zaragoza NP [address], [address], [place], [address], [facility] 4 15:03:52 Headache disorder 676206173 Active 2023 Omkar Clement MD [address], [address], [place], [address], [facility] 4 11:36:49 Primary osteoporo sis 127650912 Active 2023 Omkar Clement MD [address], [address], [place], [address], [facility] 4 11:37:06 Chronic idiopathi c constipat ion 76687895 Active 2023 Omkar Clement MD [address], [place], [address], [facility] 4 11:37:24 Problem Notes None recorded. Procedures Surgical History Date Name Laterality Status Provider Name and Address Organization Details Recorded Time 2023 total replacement of left knee joint completed Jennifer Zaragoza NP [address], [place], [address], [facility] 4 14:43:53 total replacement of right knee joint completed Jennifer Zaragoza NP [address], [place], [address], [facility] 4 14:43:20 operation on external ear completed Jennifer Zaragoza NP [address] [facility], [address], [place], [address], [facility] 4 14:44:10 colonoscopy completed Jennifer Zaragoza NP [address], [address], [place], [address], [facility] 4 14:44:26 esophagogastroduodenoscopy completed Jennifer Zaragoza NP [address], [address], [place], [address], [facility] 4 14:44:38 Imaging Results None recorded. Procedure Notes None recorded. Medical Equipment None Reported. Allergies Allergen ID Allergen Name Allergen Category Reaction Reaction Severity Criticality Documentation Date Start Date Code Code System Note Provider Name and Address Organization Details Recorded Time 01156 vancomyci n medicatio n other Not available high 12/23/2023 78918 RxNorm redne ss swell ing Jennifer Zaragoza NP [address] [facility], [facility] [address], [place], [address], [facility] 4 14:51:32 [address]67[address] tetanus and diphtheri a toxoids Not available anaphylax is severe high 12/23/2023 31947 UNK fever Jennifer Zaragoza NP [address] [facility], [address], [place], [address], [facility] 4 14:52:13 Medications Not known to be on any medication Vitals Date Recorded Body weight Heart rate Respiratory rate Body temperature Oxygen saturation Oxygen saturation in Arterial blood by Pulse oximetry Systolic blood pressure Diastolic blood pressure Provider Name and Address Organization Details Last Updated DateTime 4 11580.4 4 g 75 /min 18 /min 98 [degF] 97 % 97 % 120 mm[Hg] 70 mm[Hg] Jennifer Zaragoza NP [address] [facility] [address], [place], [address], [facility] 4 13:15:38 Date Recorded Body weight Heart rate Respiratory rate Body temperature Oxygen saturation Oxygen saturation in Arterial blood by Pulse oximetry Systolic blood pressure Diastolic blood pressure Provider Name and Address Organization Details Last Updated DateTime 4 99676.4 4 g 64 /min 18 /min 97.6 [degF] 97 % 97 % 124 mm[Hg] 68 mm[Hg] Jennifer Zaragoza NP [address] [facility], [address], [place], [address], [facility] 4 18:04:40 Date Recorded Body weight Heart rate Respiratory rate Body temperature Oxygen saturation Oxygen saturation in Arterial blood by Pulse oximetry Systolic blood pressure Diastolic blood pressure Provider Name and Address Organization Details Last Updated DateTime 4 59726.4 4 g 62 /min 16 /min 98.4 [degF] 98 % 98 % 124 mm[Hg] 68 mm[Hg] Jennifer Zaragoza NP [address] [facility], [facility] [address], [place], [address], [facility] 4 09:59:09 Date Recorded Heart rate Respiratory rate Body temperature Oxygen saturation Oxygen saturation in Arterial blood by Pulse oximetry Systolic blood pressure Diastolic blood pressure Provider Name and Address Organization Details Last Updated DateTime 4 78 /min 18 /min 98.5 [degF] 95 % 95 % 118 mm[Hg] 70 mm[Hg] ANA BENJAMIN NP [address] [facility], [address], [place], [address], [facility] 4 09:45:01 Date Recorded Body weight Heart rate Respiratory rate Body temperature Oxygen saturation Oxygen saturation in Arterial blood by Pulse oximetry Systolic blood pressure Diastolic blood pressure Provider Name and Address Organization Details Last Updated DateTime 4 76670.8 9 g 70 /min 18 /min 98.2 [degF] 99 % 99 % 129 mm[Hg] 74 mm[Hg] MELISSA SIMON [address] [facility], [address], [place], [address], [facility] 4 17:48:15 Social History Question Answer Notes LastModified by hint Details LastModified Time Tobacco Smoking Status Former Smoker Jennifer Zaragoza NP [address] [facility], [address], [place], [address], [facility] 12/23/2023 14:48:10 Do You Have An Advance [...] You Smoke? No Information not available 12/23/2023 Has Tobacco Cessation Counseling Been Provided? No Information not available 12/23/2023 Sex: Unknown Functional Status Question Answer Note LastModified by Organizat ion Details LastModified Time Do you use any illicit or recreational drugs? No Information not available 12/23/2023 Do you or have you ever used any other forms of tobacco or nicotine? No Information not available 12/23/2023 What is your level of alcohol consumption? None Information not available 12/23/2023 Mental Status None recorded. Family History Nothing Reported Notes:father diabet es mother diabetes, OA,HTN sister pancreatic ca Medical History No medical history recorded. Gynecological HistoryNo gynecological history recorded. Obstetrics History GPAL:G 0 P 0 0 0 0 Immunizations Vaccine Type Date Status Note Provider Nam e and Address Organization Details Recorded Time Hep B, unspecified formulation 4 completed Della Jeet [facility] 12/23/2023 10:39:43 Hep B, unspecified formulation 5 completed [facility] 12/23/2023 10:39:51 Hep B, unspecified formulation 5 completed Della Jeet [facility] 12/23/2023 10:39:57 Pneumococcal conjugate PCV 13 [facility]23 10:40:57 pneumococcal polysaccharide PPV23 5 completed [facility] 12/23/2023 10:41:39 pneumococcal polysaccharide PPV23 2 completed Della Jeet [facility] 12/23/2023 10:41:50 pneumococcal polysaccharide PPV23 1 completed [facility] 12/23/2023 10:41:58 influenza, unspecified formulation 2 completed Della Jeet [facility] 12/23/2023 10:42:16 influenza, unspecified formulation 3 completed Della Jeet [facility] 12/23/2023 10:42:24 SARS-COV-2 (COVID-19) vaccine, UNSPECIFIED 1 completed Della Jeet [facility] 12/23/2023 10:42:40 SARS-COV-2 (COVID-19) vaccine, UNSPECIFIED 1 completed Della Marcano [facility] 12/23/2023 10:42:49 SARS-COV-2 (COVID-19) vaccine, UNSPECIFIED 4 completed Della Marcano [facility] 12/23/2023 10:42:56 zoster live 4 completed Della [facility] 12/23/2023 10:43:30 zoster recombinant 1 completed Della [facility] 12/23/2023 10:43:50 zoster recombinant 1 completed Della [facility] 12/23/2023 10:44:01 Past Encounters Encounter ID Performer Location Encounter Start Date Encounter Closed Date Diagnosis/Indication Diagnosis SNOMED-CT Code Diagnosis ICD10 Code Diagnosis Note [id number] Jennifer Zaragoza NP [address] [address] 12/23/2023 14:27:58 12/27/2023 10:39:41 Pain of right knee region 3174139010 27903 M25.561 sp 12/[address] [...] s/s infection Chronic ob structive pulmonary disease 89970683 J44.9 albuterol 2 puff po q 4 prnalb neb q 4hours prn sobflutica sone/salme terol 250/50 bidmonitor Restless legs 74985088 G 25.81 ropinirole 0.25 mg po qhsmonitor Osteoarthritis 952885297 M19.90 now with 2 knee surgeries to help with painwith 2 calcium citrate vit d 3 2 tab bidvit b12 1000 mcg dailyvit d 3 50 mcg po dialyalend ronate 70 mg q weekmonito r Abnormal s mall bowel motility 83033299 R19.8 bm todaymulti vit with iron qdfiber lax 625 mg po qddocusate 100 mg po bidbisacod yl 5 mg po qhsmonitor Gastroesop hageal reflux disease 581188574 K21.9 omeprazole 20 mg bidmetoclo pramide 10 mg po qidlinzess 290 mcgh cap q amfamotidi ne 40 mg po qhszofran 4 mg po q 8 prnmonitor Anxiety 31906913 F41.9 contmirtaz apine 22.5 mg po qhsclonaze ana 1 mg po bid prnmonitor Vertigo 408327946 R42 meclizine 25 mg po tid prn Allergic rhinitis 185665 04 J30.9 azelastine 137mcg intranasal daily both naresfluti casone 50 mcg 2 spray intranasal dailylorat idine 10 mg po dailyzafir lukast 20 mg po bidmonitor Asthenia 46824813 R53.1 pt ot treat and evalmonito r Migraine 61209393 G43.90 9 sumatripta n 100 mg po q 2-4 hours prn (nte 2 doses in 24 hours) [id number] Jennifer Zaragoza NP [address] [address] 12/26/2023 13:46:11 12/29/2023 09:48:46 Pain of right knee region 9192153084 33595 M25.561 sp 12/[address] [...] s/s infection Chronic ob structive pulmonary disease 27045647 J44.9 contalbute rol 2 puff po q 4 prnalb neb q 4hours prn sobflutica sone/salme terol 250/50 bidmonitor Restless legs 20525532 G 25.81 contcropin irole 0.25 mg po qhsmonitor Osteoarthritis 776219203 M19.90 now with 2 knee surgeries to help with painwith 2 calcium citrate vit d 3 2 tab bidvit b12 1000 mcg dailyvit d 3 50 mcg po dialyalend ronate 70 mg q weekmonito r Vertigo 687267794 R42 meclizine 25 mg po tid prn Allergic rhinitis 466913 04 J30.9 azelastine 137mcg intranasal daily both naresfluti casone 50 mcg 2 spray intranasal dailylorat idine 10 mg po dailyzafir lukast 20 mg po bidmonitor Asthenia 69303654 R53.1 pt ot treat and evalmonito r [id number] Omkar Clement MD [address] [address] 12/27/2023 11:30:56 12/29/2023 10:05:35 Osteoarthritis of left knee joint 6229439496 99769 M17.12 end stage OA left knee now s/p TKRASA 325 mg bid for dvt prophylaxi sfollow ortho recs and update with concernsPT OT Eval and treatmonit or for pain control Chronic ob structive pulmonary disease 81802626 J41.1 advair 250/50 bidmonitor respirator y status and albuterol utilizatio n Restless legs 41014062 G 25.81 ropinirole 0.25 mg po qhsmonitor for effect Vertigo 102353858 R42 carrying dxmeclizin e 25 mg po tid prnmonitor for sx and need for further workup Allergic rhinitis 378456 04 J30.2 appears to be significan t issue for patient at baselineco ntinue out patient medsavoid PO steroid given post op statusmoni tor sx Asthenia 13372667 R53.1 PT OT eval and treatmonit or fall risk Chronic id iopathic constipation 38326792 K59.04 appears with dysmotilit y disorderma intained onlinzess 290 mg qdmonitor for effectGI eval prn Primary osteoporosis 276 740173 M81.0 fosamax 70 mg q weekcontin ued Headache disorder 167571 009 G44.89 baseline migraine hxon imitrex prnadded to PMH Gastroesop hageal reflux disease 450029592 K21.9 famotidine 40 mg qdmonitor for sx relief Cellulitis of left lower limb 5845520643 7028664 L03.116 concern for infection at incision sitestarte d on keflexorth o updated and reeval not felt to be infectedab x d/c'ed [id number] Jennifer Zaragoza NP [address] [address] 12/28/2023 13:14:27 01/04/2024 15:54:46 Osteoarthritis of left knee joint 3026430465 25753 M17.12 end stage OA left knee now s/p TKRASA 325 mg bid for dvt prophylaxi s until 02/02follow ortho recsand update with concerns and monitor for infectionP T OT Eval and treatmonit or for pain control Cellulitis of left lower limb 5542288039 1642683 L03.116 concern for infection at incision sitestarte d on keflexorth o updated and reeval not felt to be infectedab x d/c'ed on 12/26ice prnwbc is 11.2 on 12/26 elevated, however site is less warm and decreased swellingmo nitor closely for infection and reeval labs on tuesday Asthenia 10761401 R53.1 PT OT eval and treatmonit or fall risk Restless legs 85982996 G 25.81 ropinirole 0.25 mg po qhsmonitor for effect [id number] Jennifer Zaragoza NP [address] [address] 01/04/2024 16:01:53 01/10/2024 09:58:03 Osteoarthritis of left knee joint 1486582163 27071 M17.12 end stage OA left knee now s/p TKRASA 325 mg bid for dvt prophylaxi s until 02/02follow ortho recsand update with concerns and monitor for infectionP T OT Eval and treatmonit or for pain control Asthenia 05399363 R53.1 PT OT eval and treatmonit or fall risk Restless legs 26939905 G 25.81 ropinirole 0.25 mg po qhsmonitor for effect Dysuria 58093646 R30.0 pt with report of dysuria and frequencyu rinalysis with c & spyridium 200 mg po tid prn dysuria to start after sample is obtainedpt educated about orange discolorat ion to urinemonit or ua and consider abx if needed [id number] Jennifer Zaragoza NP [address] [address] 01/06/2024 09:58:30 01/10/2024 11:28:47 Dysuria 71897991 R30.0 UTI ruled outpt with report of dysuria and frequency, states she has not had bowel movement in a few dayssee constipati on01/05 urinalysis with c & s with culture showing no infection dc pyridium 200 mg po tid prnmonitor ua and consider abx if needed Osteoarthr itis of left knee joint 0973990603 65787 M17.12 end stage OA left knee now s/p TKRpt reports ortho visit yesterday and removed suturesste ri strips in place today.nsg to obtain consult info from orthoASA 325 mg bid for dvt prophylaxi s until 02/02foll ortho recsand update with concerns and monitor for infectionP T OT Eval and treatmonit or for pain control Asthenia 17471834 R53.1 PT OT eval and treatmonit or fall risk Abnormal s mall bowel motility 97606789 R19.8 no bm in a few daysmultiv it with iron qdfiber lax 625 mg po qddocusate 100 mg po bidbisacod yl 5 mg po qhs01/05inc rease senna to 2 tabs per daygive mom 30cc todaymonit or [id number] ANA BENJAMIN [employer] [facility] [address] [address] 01/11/2024 09:00:48 01/19/2024 12:49:58 Abnormal small bowel motility 71655062 R19.8 no bm in a few days [...] qd Add miralax dailyMonit or bowels Dysuria 57745003 R30.0 UTI ruled outpt had reported dysuria and frequency on 01/05 - no complaints today, seems resolved urinalysis with c & s with culture neg01/05 dc pyridium 200 mg po tid prnmonitor sx. Osteoarthr itis of left knee joint 9651266728 15129 M17.12 end stage OA left knee now [...] home Sat. 7/6monitor for pain control Asthenia 82507955 R53.1 PT OT eval and treatSee above, meeting rehab goals, goal home 7/6monitor fall risk [id number] MELISSA SIMON [facility] [address] [address] 01/13/2024 11:41:32 01/19/2024 13:26:02 Osteoarthritis of left knee joint 3588651250 43850 M17.12 end stage OA left knee now s/p TKRASA 325 mg bid for dvt prophylaxi sfollow up with ortho outpatient Restless legs 89045369 G 25.81 ropinirole 0.25 mg po qhs Chronic ob structive pulmonary disease 62740623 J41.1 advair 250/50 bid Vertigo 113988321 R42 carrying dxmeclizin e 25 mg po tid prnmonitor for sx and need for further workupfoll ow up outpatient Allergic rhinitis 635999 04 J30.2 appears to be significan t issue for patient at baselineco ntinue out patient medsavoid PO steroid given post op statusmoni tor sx Chronic id iopathic constipation 26570329 K59.04 appears with dysmotilit y disorderma intained onlinzess 290 mg qdmonitor for effectGI eval prn Primary osteoporosis 276 422271 M81.0 fosamax 70 mg q weekcontin ued Headache disorder 601904 009 G44.89 baseline migraine hxon imitrex prnadded to PMH Gastroesop hageal reflux disease 398574620 K21.9 famotidine 40 mg qdmonitor for sx relief Abnormal s mall bowel motility 34050112 R19.8 Continue:l inzess 290 mg qd for IBSfiber lax 625 mg po qd docusate 100 mg po bid bisacodyl 10 mg po qhs senna 2 tabs qd miralax 17 gn daily Anxiety 62771451 F41.9 contmirtaz apine 22.5 mg po qhsclonaze ana 1 mg po bid prnmonitor Osteoarthritis 980629692 M19.90 now with 2 knee surgeries to [...] Kimble Member ID Guarantor Name 12/28/2023 1 [facility] - DOS ON OR AFTER 2022 - MEDICARE ADVANTAGE [place]ICARE REPLACEMENT/ADV ANTAGE - PPO) Maida [place] [id number] Maida [place] 01/04/2024 1 [facility] - DOS ON OR AFTER 2022 - [place]/ADV ANTAGE - PPO) Maida [place] [id number] Maida [place] 01/06/2024 1 [facility] - DOS ON OR AFTER 2022 - [place]V ANTAGE - PPO) Maida [place] [id number] Maida [place] 01/11/2024 1 [facility] - DOS ON OR AFTER 2022 - [place]/ADV ANTAGE - PPO) Maida [place] [id number] Maida [place] 01/13/2024 1 [facility] - DOS ON OR AFTER 2022 - [place]/ADV ANTAGE - PPO) Maida [place] [id number] Maida [place] Notes Date Note Type Note [...] bid for DVT prophylaxis. She is at [facility] for rehab and continued care felt [...] or complaints today. Jennifer Zaragoza, KERLINE [address] [facility], [address], [place], [place], [address], [facility] 12/28/2023 13:29:09 01/04/2024 text/html Pt is seen for a n acute rounding visit. She is a 68 yo female admit from hospital after presenting with end stage OA left knee for TKR having failed conservative treatment without complications in hospital on ASA 325 mg bid for DVT prophylaxis. She is at [facility] for rehab and continued care felt [...] No cva tenderness. Jennifer Zaragoza NP [address] [facility], [address], [place], [address], [facility] 01/04/2024 18:17:27 01/06/2024 text/html Pt is seen [...] and well approximated. Jennifer Zaragoza NP [address] [facility], [address], [place], [address], [facility] 01/06/2024 10:22:58 01/11/2024 text/html Pt is seen [...] does have asthma/COPD). ANA BENJAMIN NP [address] [facility], [address], [place], [address], [facility] 01/11/2024 13:15:56 01/13/2024 text/html Maida is a 68 yr old female seen today for discharge on 01/14/24. Admitted to [facility] from hospital after presenting with end [...] she will be receiving support services with [employer]. she can be discharge to home with medications, PT/OT and vna services. PMH is significant for OA,anxiety,RLS,gerd ,copd,chronic constipation,vertig o migraine LARA, osteoporosis MELISSA SIMON [address] [facility], [address], [place], [address], [facility] 01/13/2024 17:48:53 OBGyn Episode No OBEpisode recorded.
--- OUTSIDE RECORDS SUMMARY | 2024-11-27 06:18 | XMS_ITS | Encounter Summary ---
Author Organization [employer] Address [address] [facility] 7t [place] [address] Care Team Providers Care Pan Washer Name Role Phone Katia Amelia Primary Care Provider [phone]- [phone] Encounter Details Date Type Department Care Team (Late st Contact Info) Description 11/04/2022 Abstract [facility] [address] [place] [phone] Amelia Montalvo DO [address] [place] [address] [phone] Social History Tobacco Use Types Packs/Day Years [...] Description 12/06/2024 1:30 PM EDT Clinical Support [facility] [address] [place] [address] Mai Bishop RN 12/06/2024 2:30 PM EDT Office Visit [facility] [address] [place] [address] Kristian Mendoza DDS [address] [place] [address] 06/20/2025 1:00 PM EST Office Visit [facility] [address] [place] [address] Sujey Cerda documented as of this encounter Visit Diagnoses Not on filedocumented in this encounter Care Teams Pan Washer Relationship Specialty Start Date End Date Amelia Montalvo DO [address] [place] [address] PCP - General Family Medicine 06/23/12 documented as of this encounter
--- OUTSIDE RECORDS SUMMARY | 2024-11-27 06:18 | XMS_ITS | Data Portability ---
Author Organization [employer] Address [address] [place] [address] Care Team Providers Care Hotel Dining Room Cashier Name Role Phone HIM [facility] OTHER [facility] Primary Care Provider [phone] Assessment Encounter Date Assessment Date Assessment LastModified by Organization Details LastModified Time 07/28/2023 07/28/2023 I provided real -time medical direction via phone for this encounter, and was available for additional phone based assistance as needed. I have reviewed and agree with the Assessment and Plan as documented by the Poultry Processing Supervisor. We discussed the diagnostic uncertainty of home [...] verbalized understanding of instructions to the medic [email or web address] Not available 07/29/2023 00:10:23 04/11/2024 04/11/2024 As noted, we wer e called to see this patient regarding concerns of chest tightness and increased wob. Evaluation in the field was performed by my auto parts delivery driver colleague, as noted above, I provided real-time [...] worsening serious symptoms, particularlyworsening shortness of breath [email or web address] Not available 04/11/2024 18:52:12 Plan of Treatment Reminders Order Date Submit Date Provider Last Modified By Organization Details Last Modified Time Details Appointments None recorded. Lab influenza virus A + B and SARS CoV 2 (COVID-19) and RSV RNA panel, AKASH+probe, respiratory specimen 2023 [place] [facility] (Centralized Electronic Ordering - All Locations), Patient Can Go To The Location Of Their Choice, [id number] 04:09:28 rapid SARS CoV 2 Ag, QL IA, respiratory specimen 2023 024 [email or web address] 0 [facility], [address] [place] [address], [id number] 12:36:39 rapid flu (A+B) 2023 024 [email or web address] 0 [facility], [address] [place] [address], [id number] 12:36:41 Referral None recorded. Procedures None recorded. Surgeries None recorded. Imaging None recorded. Medication Orders prednisone 20 mg tablet 2023 [email or web address] [facility], [address] [place] [address], [id number], 16:11:44 prednisone 20 mg tablet 2023 [facility], [address] [place] [address], [id number], 4 12:49:19 albuterol sulfate 2.5 mg/3 mL (0.083 %) solution for nebulizatio n 2023 [facility], [address] [place] [address], [id number], 4 12:49:19 Zithromax Z-Thomas 250 mg tablet 2023 024 [facility], [address] [place] [address], [id number], 4 12:26:06 Mucinex DM 30 mg-600 mg tablet,exte nded release 12 hr 2023 024 [facility], [address] [place] [address], [id number], 4 11:00:00 Patient TargetsNo targets recorded. Patient InstructionsNo instructions recorded. Reason for Referral None Reported. Results Created Date Observation Date Name Description Value Unit Range Abnormal Flag Note LastModifiedBy Organization Detail LastModifiedTime 07/28/1907/28/2023 COVID -19, RSV, FLU A/B PCR covid-19 PCR specimen source NASAL Not Available [facility] (Centralized Electronic Ordering - All Locations) Patient Can Go To The Location Of Their Choice, [id number] 07/29/2023 04:09:28 07/28/1907/29/2023 COVID -19, RSV, FLU [...] Go To The Location Of Their Choice, [id number] 07/29/2023 04:09:28 07/28/1907/29/2023 COVID -19, RSV, FLU [...] ng. Resul t repor pilar to the [facility]. All test resul ts must be corre lated with clini cynthia findi ngs. This test has been autho rized by the FDA under an Emerg ency Use Autho rizat ion (EUA) for use by autho rized labor atori es. Testi ng perfo rmed on the Cep[employer] Volume Wizard App id GeneX pert utili zing real- time RT-PC R. Not Available [facility] (Centralized Electronic Ordering - All Locations) Patient Can Go To The Location Of Their Choice, 07/29/2023 04:09:28 07/28/19 24 07/28/2023 rapid flu (A+B) Flu negati ve Not Available [facility] ed [address] [place] [address], [id number] 07/28/2023 12:36:12 07/28/19 24 07/28/2023 rapid SARS CoV 2 Ag, QL IA, respi rator y speci men rapid SARS CoV 2 Ag, QL IA, respiratory specimen negati ve Not Available [facility] ed [address] [place] [address], [id number] 07/28/2023 12:36:04 Result Notes None recorded. Medical Equipment None Reported. Allergies Allergen ID Allergen Name Allergen Category Reaction Reaction Severity Criticality Documentation Date Start Date Code Code System Note Provider Name and Address Organization Details Recorded Time 4376 vancomyci n medicatio n Not available Not available Not available 07/28/2023 07471 RxNorm Not Available [facility] - production 4 03:35:06 4377 Vaccine product containin g only Clostridi um tetani antigen (medicina l product) medicatio n Not available Not available Not available 07/28/2023 47354 2002 SNOMED Janette Nice MD [address] [place] [address],[address], [place], [phone], [place] [employer] 4 12:27:09 Medications Name Sig Start Date Stop Date Status Note LastModified by Organization Details LastModified Time medbox status USE DIRECTED active Not Available Not Available No t Available pulse oximet airial [id number] USE FOR SHORTNESS OF BREATH OR FOR [...] mm[Hg] 138 mm[Hg] 86 mm[Hg] Not Available [employer] 4 12:42:06 Date Recorded Oxygen saturation Oxygen saturation in Arterial blood by Pulse oximetry Heart rate Respiratory rate Body temperature Systolic blood pressure Diastolic blood pressure Provider Name and Address Organization Details Last Updated DateTime 4 99 % 99 % 74 /min 16 /min 98.1 [degF] 126 mm[Hg] 74 mm[Hg] Not Available [employer] 4 16:47:25 Date Recorded Body weight Oxygen saturation Oxygen saturation in Arterial blood by Pulse oximetry Body height Body temperature Respiratory rate Heart rate Systolic blood pressure Diastolic blood pressure Provider Name and Address Organization Details Last Updated DateTime 4 07770.2 64 g 97 % 97 % 172.72 cm 97.7 [degF] 17 /min 97 /min 120 mm[Hg] 90 mm[Hg] Not Available [employer] production 12:21:43 Date Recorded Body temperature Heart rate Oxygen saturation Oxygen saturation in Arterial blood by Pulse oximetry Systolic blood pressure Diastolic blood pressure Provider Name and Address Organization Details Last Updated DateTime 4 98.1 [degF] 77 /min 98 % 98 % 138 mm[Hg] 94 mm[Hg] Not Available [employer] - production 4 16:07:34 Social History None recorded. Functional Status None recorded. Mental Status None recorded. Family History Nothing Reported. Medical History No medical history recorded. Gynecological HistoryNo gynecological history recorded. Obstetrics History GPAL:G 0 P 0 0 0 0 Past Encounters Encounter ID Performer Location Encounter Start Date Encounter Closed Date Diagnosis/Indication Diagnosis SNOMED-CT Code Diagnosis ICD10 Code Diagnosis Note [id number] Janette Nice MD [facility] [address] [place] [phone] 07/28/2023 12:22:19 07/31/2023 13:34:03 Upper respiratory infection 15392111 J06.9 Likely viral. Advised we will call [...] afebrile without color nasal discharge or sputum [id number] Fortino Guzman MD [facility] [address] [place] [phone] 08/08/2023 16:47:19 08/09/2023 11:01:47 Viral upper respiratory tract infection 738358411 J06.9 Acute bronchitis 1659397 2 J20.9 This 77-year-ol d male has had congestion and a cough for almost a month. Mucinex DM hasn't been effective. I ordered a Z-Thomas. He will follow-up with his PCP for any persistent symptoms. The patient agreed with this plan. [id number] Lissy San MD Main - [facility] [phone] 01/24/2024 12:21:41 01/24/2024 18:25:34 Cough 37158400 R05.9 68 year old female with a [...] assessment and plan as documented by the auto parts delivery driver. I provided real-time medical direction for this encounter and was immediatel y available to provide additional phone-base d assistance as needed. We discussed the diagnostic uncertaint y of home visits and associated risks. We discussed the need to seek care urgently/e mergently in the setting of any new or worsening symptoms. [id number] Jeet Stovall MD [facility] [address] [place] [phone] 04/11/2024 16:07:31 04/11/2024 23:08:50 Acute exacerbation of chronic obstructive pulmonary disease 183257778 J44.1 Health Concerns Section Related Observation LastModified by Organization Detai ls LastModified Time None Recorded Concern Status LastModified by Organization Details LastModified Time None Recorded Advance Directives Directive None Recorded Payers Insurance Date Sequence Insurance Name Policy Number Policy Kimble Covered Member ID Kimble Member ID Guarantor Name 04/12/2024 1 [facility] - DOS ON OR AFTER 2022 - DUAL ELIGIBLE - RETIREMENT OPTIONS AND ONE CARE (MEDICARE REPLACEMENT/ADV ANTAGE - HMO) Maida Mitchell [id number] Maida Mitchell Notes Date Note Type Note [...] Weakness/Lethargy, Headache, Asthma, COPDPMH: COPD/AsthmaAllergie s: VancomycinComments: Pie Filling Mixer verified the member's name//address and phone number [...] ................... ................... ................... ................... ................... ................... ........ Poultry Processing Supervisor Note From Humza Rabago: Encountered patient conscious, [...] Extremities is free of trauma and edema. [facility] contacted: orders for PCR and orthostatic vital science performed results reported to [facility]. PCR swab to be taken to [facility] laboratory. [facility] to write prescription for medication regimen at patient? s pharmacy of choice. Red flags discussed with patient, patient urged to seek further medical attention. Should she develop priority symptoms, such as chest pain, syncope, fevers, acute shortness of breath or changes in vision. Patient expresses understanding and would like to remain home at this time. Poultry Processing Supervisor Allergies: Vancomycin ................... ................... ................... ................... ................... [...] during the exam Janette Nice MD [address] [facility],[address], [place], [phone], [employer] 07/29/2023 00:10:48 08/08/2023 text/html CRC Nurse Triage Notes (Demetra Romero): Reason For Request: sob Chief Complaints: Shortness of Breath/Dyspnea PMH: COPD/Asthma Allergies: Vancomycin Comments: Verified identity/ / address Call completed with informatica mdm developer Member is a 68 yr old female, [facility] calling for member with increased weakness and sob for over a week. Per MISSILEMAN , insta[facility]ir went out on 07/28. Member was found to be Negative per PCR and mucinex sent . Per member is taking medication. Member is not on home , but has neb . Member dry cough, no wheezing when breathing Fortino Guzman MD [address] [facility],[address], [place], [address], [facility] 08/08/2023 17:01:14 01/24/2024 text/html HPI: Member had [...] No further information needed to process visit. Poultry Processing Supervisor POC Test Results from Yared Saenz Rapid COVID antigen (12:49:53) COVID: - ................... ................... ................... ................... ................... ................... ................... ........ Poultry Processing Supervisor Note From Yared Saenz: [facility] dispatched for a 68 YO F complaining [...] prescribed. PT still drinking plenty of fluids. [facility] performs rapid PCR covid test which is negative. PT denies takin any OTC medication for the pain. [facility] contacts PT [facility] who recommends fluids and rest at home. Believes this to be a viral common cold and to let it run its course. [facility] also recommends to follow up with GI doctor about any recent changes with her eating changes or pain levels. [facility] explains to pt that if she experiences any sudden onset SOB, chest pain or sudden N/v that she should contact [facility] for a higher level of care. ................... ................... ................... ................... ................... ................... ................... ........ Disposition: Fulfilled Lissy San MD [address] [place] [address],[address], [place], [address], [employer] 01/24/2024 13:37:22 04/11/2024 text/html CRC Nurse Triage Notes (Demetra Romero): Reason For Request: PT reporting chest tightness + and some shortness of breath Chief Complaints: Shortness of Breath/Dyspnea PMH: COPD/Asthma Allergies: Vancomycin Comments: Pie Filling Mixer verified the member's name//address and phone number. Member is a 68 yr old mongolian female , a/o3 PMH >ASthma / copd [...] ................... ................... ................... ................... ................... ................... ........ Poultry Processing Supervisor Note From Ayo Tomlin: Dispatched for evaluation of a 68 y/o female, Swedish speaking only, complaining and requesting an evaluation of shortness of breath and tightness in chest. Upon arrival to pt apartment, pt ambulatory waiting for providers at door. Pt sat on couch and assessment performed, vital signs obtained. Language line utilized due to pt speaking Swedish only, with pt and providers able to communicate in short sentences in Kyrgyz. Assessment found CAOX4, airway open and patent, [...] confirmed pt allergies and pharmacy and contacted [facility]. [facility] ordered Duoneb treatment and to call back after treatment completed with further assessment. Duoneb administered with pt stating improvement in symptoms upon completion, lung sounds clear in all corn[place], pt work of breathing noted to be improved, pt breathing slower and with less effort. [facility] contacted with update, [facility] ordering second duoneb and 40mg prednisone, with [facility] sending prednisone prescription to pt pharmacy. Providers administered 40mg prednisone and began duoneb treatment. Red flags discussed. Providers then left the residence. All times approximate. ................... ................... ................... ................... ................... ................... ................... ........ Disposition: Fulfilled Jeet Stovall MD [address] [facility],[address], [place], [address], [employer] 04/11/2024 18:52:26 OBGyn Episode No OBEpisode recorded.
--- OUTSIDE RECORDS SUMMARY | 2024-11-27 06:18 | XMS_ITS | Encounter Summary ---
Author Organization [employer] Address [address] [facility] 7t [place] [address] Care Team Providers Care Spray Maker Name Role Phone KatiaAmelia Primary Care Provider [phone] Encounter Details Date Type Department Care Team (Late st Contact Info) Description 09/13/2022 Orders Only [facility] [address] [place] [address] Amelia Kemp LPN Social History Tobacco Use [...] Description 12/06/2024 1:30 PM EDT Clinical Support [facility] MEDICINE [address] [place] [address] Mai Bishop, RN 12/06/2024 2:30 PM EDT Office Visit [facility] ADULT DENTAL [address] [place] [address] Kristian Mendoza DDS [address] [place] [address] 06/20/2025 1:00 PM EST Office Visit [facility] ADULT DENTAL [address] [place] [address] Sujey Cerda documented as of this encounter Visit Diagnoses Not on filedocumented in this encounter Care Teams Spray Maker Relationship Specialty Start Date End Date Amelia Montalvo DO [address] [place] [address] PCP - General Family Medicine 06/23/12 documented as of this encounter
--- OUTSIDE RECORDS SUMMARY | 2024-11-27 06:18 | XMS_ITS | Encounter Summary ---
Author Organization [employer] Address [address] [facility] 7t [place] [address] Care Team Providers Care Clam Dredge Boat Captain Name Role Phone Amelia Montalvo DO Primary Care Provider [phone] Reason for Visit * Reason Comments Med Refill Encounter Details Date Type Department Care Team ([facility] st Contact Info) Description 11/06/2024 Refill [facility] MEDICINE [address] [place] [address] Amelia Montalvo DO [address] [place] [address] Vitamin B12 deficiency Social History Tobacco Use [...] Description 12/06/2024 1:30 PM EDT Clinical Support [facility] MED[facility]INE [address] [place] [phone] Mai Bisohp, JAMAAL 12/06/2024 2:30 PM EDT Office Visit [facility] ADULT DENTAL [address] [place] [phone] Kristian Mendoza DDS [address] [place] [address] 06/20/2025 1:00 PM EST Office Visit [facility] ADULT DENTAL [address] [place] [address] Sujey Cerda documented as of this encounter Visit Diagnoses Diagnosis Vitamin B12 deficiency Other B-complex deficiencies documented in this encounter Additional Health Concerns Assessment Noted Time PHQ-9 Depression Total Score: 18 024 2:12 PM EDT documented as of this encounter Care Teams Clam Dredge Boat Captain Relationship Specialty Start Date End Date Amelia Montalvo DO [address] [place] [address] [phone] PCP - General Family Medicine 06/23/12 documented as of this encounter
--- OUTSIDE RECORDS SUMMARY | 2024-11-27 06:18 | XMS_ITS | Encounter Summary ---
Author Organization [employer] Address [address] [facility] 7t [place] [address] Care Team Providers Care Destination Sign Repairer Name Role Phone Amelia Montalvo DO Primary Care Provider + [phone] Reason for Visit * Reason Comments Med Refill Encounter Details Date Type Department Care Team ([facility] st Contact Info) Description 11/07/2023 Refill [facility] MEDICINE [address] [place] [address] Amelia Montalvo DO [address] [place] [address] Other specified anxiety disorders Social History Tobacco [...] AM EDT documented as of this encounter Functional Status * Over the last 2 weeks, how often have you been bothered by any of the following problems? Question Answer Date of Assessment Author Feeling nervous, anxious, or on edge 3 07/2023 2:20 PM EDT Mai Bishop RN Not being able to stop or co ntrol worrying 3 11/09/2023 2:20 PM EDT Mai Bishop RN Worrying too much about diff erent things 2 11/09/2023 2:20 PM EDT Mai Bishop RN Trouble relaxing 3 11/09/2023 2:20 PM EDT Mai Bridges ae, RN Being so restless that it is hard to sit still 3 11/09/2023 2:20 PM EDT Mai Bishop RN Becoming easily annoyed or irritable 2 07/2023 2:20 PM EDT Mai Bishop RN Feeling afraid as if somethi ng awful might happen 3 11/09/2023 2:20 PM EDT Mai Bishop RN PREET-7 Total Score 19 11/09/2023 2:20 PM EDT Mai Bishop RN documented as of this encounter Plan of Treatment Upcoming Encounters Date Type Department Care Team (Late st Contact Info) Description 12/06/2024 1:30 PM EDT Clinical Support [facility] MEDICINE [address] [place] [address] Mai Bishop RN 12/06/2024 2:30 PM EDT Office Visit [facility] ADULT DENTAL [address] [place] [address] Kristian Mendoza DDS [address] [place] [address] 06/20/2025 1:00 PM EST Office Visit [facility] ADULT DENTAL [address] [place] [address] Sujey Cerda documented as of this encounter Visit Diagnoses Diagnosis Other specified anxiety disorders documented in this encounter Care Teams Destination Sign Repairer Relationship Specialty Start Date End Date Amelia Montalvo DO [address] [place] [address] PCP - General Family Medicine 06/23/12 documented as of this encounter
--- OUTSIDE RECORDS SUMMARY | 2024-11-27 06:18 | XMS_ITS | Encounter Summary ---
Author Organization [employer] Address [address] [facility] 7t [place] [address] Care Team Providers Care Manager Insurance Name Role Phone Amelia Montalvo DO Primary Care Provider [phone] Reason for Visit * Reason Comments Med Refill Encounter Details Date Type Department Care Team ([facility] st Contact Info) Description 12/09/2023 Refill [facility] MEDICINE [address] [place] [address] Amelia Montalvo DO [address] [place] [address] Social History Tobacco Use Types Packs/Day Years [...] Description 12/06/2024 1:30 PM EDT Clinical Support [facility] MEDICINE [address] [place] [phone] Mai Bishop RN 12/06/2024 2:30 PM EDT Office Visit [facility] ADULT DENTAL [address] [place] [address] Kristian Mendoza DDS [address] [place] [phone] 06/20/2025 1:00 PM EST Office Visit [facility] ADULT DENTAL [address] [place] [phone] Sujey Cerda documented as of this encounter Visit Diagnoses Not on filedocumented in this encounter Care Teams Manager Insurance Relationship Specialty Start Date End Date Amelia Montalvo DO [address] [place] [phone] PCP - General Family Medicine 06/23/12 documented as of this encounter
--- OUTSIDE RECORDS SUMMARY | 2024-11-27 06:18 | XMS_ITS | Encounter Summary ---
Author Organization [employer] Address [address] [facility] 7t [place] [address] Care Team Providers Care Annual Campaign Manager Name Role Phone Amelia Montalvo DO Primary Care Provider [phone] Encounter Details Date Type Department Care Team (Late st Contact Info) Description 10/26/2022 Orders Only [facility] MEDICINE [address] [place] [phone] Michelle Vides LPN Social History Tobacco Use [...] Description 12/06/2024 1:30 PM EDT Clinical Support [facility] MED[facility] [address] [place] [address] Mai Bishop, JAMAAL 12/06/2024 2:30 PM EDT Office Visit [facility] ADULT DENTAL [address] [place] [address] Kristian Mendoza DDS [address] [place] [address] 06/20/2025 1:00 PM EST Office Visit [facility] ADULT D[facility] [address] [place] [address] Sujey Cerda documented as of this encounter Visit Diagnoses Not on filedocumented in this encounter Care Teams Annual Campaign Manager Relationship Specialty Start Date End Date Amelia Montalvo DO [address] [place] [address] PCP - General Family Medicine 06/23/12 documented as of this encounter
--- OUTSIDE RECORDS SUMMARY | 2024-11-27 06:18 | XMS_ITS | Encounter Summary ---
Author Organization [employer] Address 75 [facility] 7t [place] [address] Care Team Providers Care Peeled Potato Inspector Name Role Phone Amelia Montalvo DO Primary Care Provider [phone] Reason for Visit * Reason Comments Med Refill Encounter Details Date Type Department Care Team ([facility] st Contact Info) Description 03/14/2024 Refill [facility] [address] [place] [address] Amelia Montalvo DO [address] [place] [address] Other specified anxiety disorders Social History Tobacco [...] Description 12/06/2024 1:30 PM EDT Clinical Support [facility] [address] [place] [address] Mai Bishop, JAMAAL 12/06/2024 2:30 PM EDT Office Visit [facility] [address] [place] [address] Kristian Mendoza DDS [address] [place] [address] 06/20/2025 1:00 PM EST Office Visit [facility] [address] [place] [address] Sujey Cerda documented as of this encounter Visit Diagnoses Diagnosis Other specified anxiety disorders documented in this encounter Additional Health Concerns Assessment Noted Time PHQ-9 Depression Total Score: 18 024 2:12 PM EDT documented as of this encounter Care Teams Peeled Potato Inspector Relationship Specialty Start Date End Date Amelia Montalvo DO [address] [place] [address] PCP - General Family Medicine 06/23/12 documented as of this encounter
--- OUTSIDE RECORDS SUMMARY | 2024-11-27 06:18 | XMS_ITS | Encounter Summary ---
Author Organization [facility] Address 75 [facility] 7t [place] [address] Care Team Providers Care Supervisor Inspection And Testing Name Role Phone Amelia Montalvo DO Primary Care Provider [phone] Encounter Details Date Type Department Care Team (Latest Contact Info) Description 03/29/[address] [facility] CONVERSIONS Dental, Provider, DDS Social [...] PM EDT Clinical Support [facility] MEDICINE [address] [place] [address] Mai Bishop RN 12/06/2024 2:30 PM EDT Office Visit [facility] ADULT DENTAL [address] [place] [address] Kristian Mendoza DDS [address] [place] [address] 06/20/2025 1:00 PM EST Office Visit [facility] ADULT DENTAL [address] [place] [address] Sujey Cerda documented as of this encounter Visit Diagnoses Not on filedocumented in this encounter Care Teams Supervisor Inspection And Testing Relationship Specialty Start Date End Date Amelia Montalvo DO [address] [place] [address] PCP - General Family Medicine 06/23/12 documented as of this encounter
--- OUTSIDE RECORDS SUMMARY | 2024-11-27 06:18 | XMS_ITS | Encounter Summary ---
Author Organization [employer] Address 75 [facility] 7t [place] [address] Care Team Providers Care Woodworker Helper Name Role Phone Amelia Montalvo DO Primary Care Provider + [phone] Reason for Visit * Reason Comments Med Refill Encounter Details Date Type Department Care Team ([facility] st Contact Info) Description 11/15/2023 Refill [facility] [address] [place] [address] Charley Miller MD 230 [place] [address] Social History Tobacco Use Types Packs/Day Years [...] Description 12/06/2024 1:30 PM EDT Clinical Support [facility] [address] [place] [address] Mai Bishop, JAMAAL 12/06/2024 2:30 PM EDT Office Visit [facility] ADULT DENTAL [address] [place] [address] Kristian Mendoza DDS [address] [place] [address] 06/20/2025 1:00 PM EST Office Visit [facility] ADULT DENTAL [address] [place] [address] Sujey Cerda documented as of this encounter Visit Diagnoses Not on filedocumented in this encounter Care Teams Woodworker Helper Relationship Specialty Start Date End Date Amelia Montalvo DO [address] [place] [address] PCP - General Family Medicine 06/23/12 documented as of this encounter
--- OUTSIDE RECORDS SUMMARY | 2024-11-27 06:18 | XMS_ITS | Encounter Summary ---
Author Organization [employer] [facility] Address 75 [facility] 7t [place] [address] Care Team Providers Care Chemical Treatment Operator Name Role Phone Amelia Montalvo DO Primary Care Provider [phone] Encounter Details Date Type Department Care Team (Latest Contact Info) Description 01/15/2021 Abstract [facility] [...] [facility] MEDICINE [address] [place] [address] Mai Bishop RN 12/06/2024 2:30 PM EDT Office Visit [facility] ADULT DENTAL [address] [place] [address] Kristian Mendoza DDS [address] [place] [address] 06/20/2025 1:00 PM EST Office Visit [facility] ADULT DENTAL [address] [place] [address] Sujey Cerda documented as of this encounter Visit Diagnoses Not on filedocumented in this encounter Care Teams Chemical Treatment Operator Relationship Specialty Start Date End Date Amelia Montalvo DO [address] [place] [address] PCP - General Family Medicine 06/23/12 documented as of this encounter
--- OUTSIDE RECORDS SUMMARY | 2024-11-27 06:18 | XMS_ITS | Encounter Summary ---
Author Organization [employer] Address 75 [facility] 7 [place] [address] Care Team Providers Care Network Management Specialist Name Role Phone Amelia Montalvo DO Primary Care Provider [phone] Reason for Visit * Reason Onset Date Comments Pre-op clearance notes 08/26/2023 Encounter Details Date Type Department Care Team (Late st Contact Info) Description 08/26/2023 Telephone [facility] [address] [place] [address] Amelia Montalvo DO 230 [place] [address] Pre-op clearance notes Social History Tobacco Use [...] 08/15 and it can be faxed to [phone] documented in this encounter Plan of Treatment Upcoming Encounters Date Type Department Care Team (Late st Contact Info) Description 12/06/2024 1:30 PM EDT Clinical Support [facility] [address] [place] [address] Mai Bishop, RN 12/06/2024 2:30 PM EDT Office Visit [facility] ADULT DENTAL [address] [place] [address] Kristian Mendoza DDS [address] [place] [address] 06/20/2025 1:00 PM EST Office Visit [facility] ADULT DENTAL [address] [place] [address] Sujey Cerda documented as of this encounter Visit Diagnoses Not on filedocumented in this encounter Care Teams Network Management Specialist Relationship Specialty Start Date End Date Amelia Montalvo DO [address] [place] [address] PCP - General Family Medicine 06/23/12 documented as of this encounter
--- OUTSIDE RECORDS SUMMARY | 2024-11-27 06:18 | XMS_ITS | Clinical Summary ---
Author Organization [employer] Address [address] [place] [address] 7t [place] [address] Care Team Providers Care Head Grower Name Role Phone Amelia Montalvo DO Primary Care Provider + [phone] Allergies Active Allergy Reactions Criticality Noted Date [...] mouth if needed each day for nausea. 07/01/2 024 Active SUMAtriptan (Imitrex) 50 MG tablet Take [...] for up to 10 days. 30 tablet Active albuterol (Ventolin HFA) 108 (90 Base) MCG/ACT inhalerIndication s:Mild intermittent asthma with acute exacerbation INHALE 2 PUFFS BY MOUTH EVERY 4 HOURS NEEDED FOR WHEEZING OR SHORTNESS OF BREATH 18 g 1 Active albuterol (2.5 MG/3ML) 0.083% nebulizer solutionIndicatio ns:COPD exacerbation (CMS/HCC) Take 3 mL (2.5 mg) by nebulization every 4 (four) hours if needed for wheezing or shortness of breath. 90 mL 1 Active Calcium Citrate-Vitamin D 200-6.25 MG-MCG tablet [...] TWELVE HOURS 56 tablet 025 2024 Active cholecalciferol (Vitamin D-3) 50 MCG (1999 [...] eorder (will not trigger notification to Pharmacy)) benzonatate (Tessalon Perles) 100 MG capsule Take [...] MG/3ML) 0.083% nebulizer solution 2.5 mgIndications:COPD exacerbation ([facility]) 2.5 mg NEBULIZATION Once 10/23/2024 Active Active Problems Problem Noted Date Diagnosed Date Flu 10/18/2024 Assessment & Plan (10/18/2024 1:27 PM EDT): Faint wheezing on exam. No evidence of acute respiratory distress. 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 Symptoms mild. No evidence of dehydration. -Prescribed predniSONE (Deltasone) 20 MG taper. -Supportive care advised. -Isolation recommendations discussed. Acute exacerbation of COPD with asthma Assessment & Plan (10/18/2024 1:25 PM EDT): Faint diffuse wheezing on exam. 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 -prescribed predniSONE (Deltasone) 20 MG taper. [...] and flonase daily -cont accolate daily -review machine programmer next visit PRE[facility] (generalized anxiety disorder) 07/25/2012 [...] tests this month. -In current evaluation by planishing press operator for Atypical chest pain but difficult [...] exertion 10/04/2022 11/06/19 23 Influenza-like symptoms 10/04/2022 0402/2023 Seasonal allergies 12/15/2017 Gingivitis 10/04/2013 11/05/2022 Encounters Date Type Department Care Team Description 11/12/2024 Refill [facility] & PEDS [address] [place] [address] Amelia Montalvo DO Other specified anxiety disorders 11/06/2024 10:00 AM EDT Office Visit [facility] ADULT DENTAL [address] [place] [address] Cely Guy Abfraction (Primary Dx); Missing teeth, acquired 11/06/2024 Refill [facility] [address] [place] [address] Amelia Montalvo DO Vitamin B12 deficiency 11/04/2024 Refill [facility] [address] [place] [address] Amelia Montalvo DO Vitamin B12 deficiency 10/31/2024 Refill [facility] [address] [place] [address] Amelia Montalvo DO 10/26/2024 Telephone [facility] [address] [place] [address] Amelia Montalvo DO Results 10/23/2024 11:45 AM EDT Office Visit [facility] [address] [place] [address] Amelia Montalvo DO COPD exacerbation ([facility]) (Primary Dx); Mild intermittent asthma with acute exacerbation 10/23/2024 Travel 10/18/2024 1:40 PM EDT Office Visit [facility] [address] [place] [address] Cristal Lindsey MD Flu (Primary Dx); Acute exacerbation of COPD with asthma (CMS/[facility]) 10/18/2024 Telephone [facility] [address] [address] Glenda Sandy, JAMAAL WIC triage 10/15/2024 8:40 AM EDT Office Visit [address] [address] Igor Stroud MD Influenza A (Primary Dx); Moderate persistent asthma with acute exacerbation 10/15/2024 Telephone [facility] [address] [place] [address] Amelia Montalvo DO ER Follow-up; Nurse Triage 10/15/2024 Orders Only [facility] External Provider, [facility] 10/15/2024 Travel 10/12/2024 10:00 AM EDT Office Visit [facility] [address] [address] Igor Stroud MD Influenza A (Primary Dx) 10/06/2024 Refill [facility] [address] [place] [address] Amelia Montalvo DO 10/03/2024 Telephone [facility] [address] [place] [address] Amelia Montalvo DO 10/03/2024 Refill [facility] [address] [place] [address] Amelia Montalvo DO Chronic migraine without aura without status migrainosus, not intractable 10/01/2024 Refill [facility] [address] [place] [address] Amelia Montalvo DO Other specified anxiety disorders 09/16/2024 Refill [facility] [address] [place] [address] Amelia Montalvo DO from Last 3 Months Immunizations Immunization Administration Dates Next Due Hep B, Unspecified [...] Description 12/06/2024 1:30 PM EDT Clinical Support [facility] [address] [place] [address] Mai Bishop RN 12/06/2024 2:30 PM EDT Office Visit [facility] ADULT DENTAL [address] [place] [address] Kristian Mendoza DDS [address] [place] [address] 06/20/2025 1:00 PM EST Office Visit [facility] ADULT DENTAL [address] [place] [address] Sujey Cerda Health Maintenance Due Date Last Done Comments CT Colonography 1955 FIT DNA/Cologuard 1955 FIT 1955 FOBT 1955 Sigmoidoscopy 1955 Alcohol/Substance Use Screening 1965 DTaP/Tdap/Td Vaccines (1 - Tdap) 1972 Mammogram 1993 COVID-19 Vaccine (5 - season) 2024 04/16/2024, 08/15/2023, 05/20/2021, Additional history exists SDOH Screening 10/26/2024 10/27/2023 [...] Aged 60 years or older Completed 03/05/2024 Influenza Vaccine Completed 04/16/2024, , 03/26/2022, Additional [...] patient's age to complete this topic Meningococcal B Vaccine Aged Out No l onger eligible based on patient's age to complete [...] STAT 10/23/2024 1:22 PM EDT COPD exacerbation ([facility]/HCC) COMPREHENSIVE METABOLIC PANEL Routine 10/15/2024 10:36 AM [...] PM EDT Narrative 10/23/2024 1:38 PM EDT ?[facility] ?[address] ?[place] [address] ?XRay Report ? Signed ? Patient: StephenMaida I ?MR#: [id number] ?? 71 ? : 1955 ?Acct:[id number] ? Age/Sex: 69 / F ?ADM Date: 10/23/24 ? Loc: HO.HHCX ? Attending Dr: Amelia Montalvo DO ? Ordering Physician: Amelia Montalvo DO ?? Date of Service: 10/23/24 ?? Procedure(s): XR chest 2V ?? Accession Number(s): [id number] ? cc: Amelia Montalvo DO ? EXAMINATION: [...] DD/ 1322 ? TD/TT: 10/23/24 1329 ? Director Of Occupational Therapy: ? Procedure Note Donkiko, Image - 10/23/[address] [address] XRay Report Signed Patient: Maida Mitchell IMR#: [id number] 71 : 1955cct:[id number] Age/Sex: 69 / FADM Date: 10/23/24 Loc: .HHCX Attending Dr: Amelia Montalvo DO Ordering Physician: Amelia Montalvo DO Date of Service: 10/23/24 Procedure(s): XR chest 2V Accession Number(s): [id number] cc: Amelia Montalvo DO EXAMINATION: XR CHEST [...] 10/23/24 1335 DD/ 1322 TD/TT: 10/23/24 1329 Director Of Occupational Therapy: Amelia Montalvo DO IMG XR PROCEDURES Final Resu lt * SARS-CoV-2 RNA, Influenza A/B, and RSV RNA, Ql NAAT (10/15/2024 10:36 AM EDT) Influenza A PCR NEGATIVE Negative [facility] Influenza B PCR NEGATIVE Negative [facility] Resp Syncy Virus RNA Qual PCR NEGATIVE Negative [facility] SARS COV2 PCR NEGATIVE Negative [facility] Comment:All test results mus t be [...] use by authorized laboratories.Testing performed on the SolfoXpert utilizingreal-time RT-PCR.All SARS CoV2 and positive influenza A/B results arereported to [facility]. 10/15/2024 10:3 6 AM EDT 10/15/2024 10:41 AM EDT us Generic External Data Provider LAB MICROBIOLOGY - GENERAL ORDERABLES Final Result [facility] [address] [place] [phone] * (ABNORMAL) Comprehensive Metabolic Panel (10/15/2024 10:36 AM EDT) Pathologist [facility] Sodium 143 135 - 145 mmol/L [facility] Potassium 4.0 3.3 - 5.1 mmol/L [facility] Chloride 108 96 - 108 mmol/L [facility] Carbon Dioxide 28 22 - 29 mmol/L [facility] Anion Gap 11(L) 12 - 20 [facility] Urea Nitrogen (BUN) 14 9 - 16 mg/dL [facility] Creatinine, Serum 0.77 0.5 - 1.4 mg/dL [facility] Creatinine Clr Calc Pharmacy 73.5 [facility] Comment:Provided height and weight: 172.72 cm,78.018 kg.eGFR (calculated from the MDRD study equation) and eCrCl(calculated from the Cockcroft-Gault equation) are based ondifferent parameters and may not yield comparable results.If eCrCl result is absurd, please check patient'sheight/weight. Estimated Glomerular Filt Rate >60 [facility] Comment:Chronic Kidney Disea se: Estimated GFR < 60 mL/min/1.90b4Bmpfcz Kidney Disease: Estimated GFR < 15 mL/min/1.73m2 Glucose 85 60 - 115 mg/dL [facility] Calcium 8.7 8.4 - 10.2 mg/dL [facility] Bilirubin, Total 0.2 0.0 - 1.0 mg/dL [facility] Aspartate Amino Transferase 18 5 - 31 U/L [facility] Alanine Aminotransferase 16 0 - 31 U/L [facility] Total Protein 6.2(L) 6.5 - 8.0 g/dL [facility] Albumin Level 3.8 3.5 - 5.0 g/dL [facility] Alkaline Phosphatase 67 39 - 117 U/L [facility] 10/15/2024 10:3 6 AM EDT 10/15/2024 10:41 AM EDT us Generic External Data Provider LAB BLOOD ORDERAB LES Final Result [facility] [address] [place] [phone] * (ABNORMAL) CBC auto differential (10/15/2024 10:35 AM EDT) White Blood Count 5.6 4.8 - 10.8 X10*3/uL [facility] Red Blood Count 4.38 4.20 - 5.50 X10*6/uL [facility] Hemoglobin 11.6(L) 12.0 - 16.0 g/dl [facility] Hematocrit 36.9(L) 37.0 - 47.0 % [facility] Mean Corpuscular Volume 84.2 80.0 - 98.0 fL [facility] Mean Corpuscular Hemoglobin 26.5(L) 27.0 - 33.0 pg [facility] Mean Corpuscular HGB Conc 31.4 31.0 - 35.0 g/dl [facility] Red Cell Distribution Width 14.5 11.0 - 16.0 % [facility] Platelet Count 288 160 - 400 X10*3/uL [facility] Mean Platelet Volume 8.7(L) 9.4 - 12.3 fL [facility] Neutrophils Percent Auto 55.4 45 - 73 % [facility] Imm Gran Pct Auto 0.2 0.0 - 0.4 % [facility] Lymphocytes Percent Auto 31.5 20 - 40 % [facility] Monocytes Percent Auto 12.5(H) 2 - 11 % [facility] Eosinophils Percent Auto 0.2 0 - 4 % [facility] Basophils Percent Auto 0.2 0 - 2 % [facility] NRBC Pct Auto 0.0 0.0 - 0.2 /100WBC [facility] Neutrophils Absolute Auto 3.1 2.0 - 8.3 x10*3/uL [facility] Imm Gran Abs Auto 0.01 0.00 - 0.03 X10*3/uL [facility] Lymphocytes Absolute Auto 1.8 1.2 - 4.9 X10*3/uL [facility] Monocytes Absolute Auto 0.7 0.1 - 1.2 X10*3/uL [facility] Eosinophils Absolute Auto 0.0 0.0 - 0.4 X10*3/uL [facility] Basophils Absolute Auto 0.0 0.0 - 0.2 X10*3/uL [facility] NRBC Abs Auto 0.000 0.0 - 0.012 X10*3/uL [facility] 10/15/2024 10:3 5 AM EDT 10/15/2024 10:41 AM EDT us Generic External Data Provider LAB BLOOD ORDERAB LES Final Result [facility] [address] [place] [address] [phone] * POCT Rapid Influenza B RUIZ ID NOW (10/12/2024 10:32 AM EDT) Influenza B Negative Negative, Indeterminate [facility] QC Media Lot # [id number] [facility] Lot# Expiration Date [id number] [facility] Swab 10/12/2024 10:3 2 AM EDT us Igor Stroud MD POINT OF CARE TEST ENTER/EDIT OR DERABLES Final Result [facility] [address] [place] [place] [phone] * (ABNORMAL) POCT Rapid Influenza A RUIZ ID NOW (10/12/2024 10:32 AM EDT) Influenza A Positive( A) Negative, Indeterminate [facility] QC Media Lot # [id number] [facility] Lot# Expiration Date [id number] [facility] Swab 10/12/2024 10:3 2 AM EDT us Igor Stroud MD POINT OF CARE TEST ENTER/EDIT OR DERABLES Final Result [facility] [address] [place] [place] [phone] * POCT Rapid Covid-19 BinaxNOW (10/12/2024 [...] a test for HCV RNA (test code 30161) is suggested. ?? For additional information please refer to http://education.[employer]/faq/KMT14y5 (This link is being provided for informational/ educational purposes only.) ?? 01/06/2021 8:12 AM EDT Amelia Montalvo DO HISTORICAL/NON ORDERABLE LAB S Final Result [facility] [address] [place] [address], * Hm Colonoscopy (05/31/2019 10:01 AM EST) Historical Provider HEALTH MAINTENANCE Final Result from Last 3 Months or Most Recently Relevant to Health Maintenance Insurance [facility] OPTIONS (O D-SNP) [place] [id number] [facility] OPT[employer] (O D-SNP) DENTAL [facility] Care Teams Head Grower Relationship Specialty Start Date End Date Amelia Montalvo DO [address] [place] [address] PCP - General Family Medicine 06/23/12
--- OUTSIDE RECORDS SUMMARY | 2024-11-27 06:18 | XMS_ITS | Encounter Summary ---
Author Organization [employer] Address [address] [facility] 7t [place] [address] Care Team Providers Care Bottom Stainer Name Role Phone KatiaAmelia Primary Care Provider [phone] Encounter Details Date Type Department Care Team (Late st Contact Info) Description 10/07/2022 Orders Only [facility] [address] [place] [address] Amelia Kemp LPN Social History Tobacco Use [...] Description 12/06/2024 1:30 PM EDT Clinical Support [facility] [address] [place] [address] Mai Bishop, JAMAAL 12/06/2024 2:30 PM EDT Office Visit [facility] ADULT DENT[facility] [address] [place] [address] Kristian Mendoza DDS [address] [place] [address] 06/20/2025 1:00 PM EST Office Visit [facility] [address] [place] [address] Sujey Cerda documented as of this encounter Procedures Procedure Name Priority Date/Time Associated Diagnosis Comments CT HEAD WO CONTRAST Routine 10/22/2022 1 0:52 AM EDT documented in this encounter Results * CT Head w/o Contrast (10/22/2022 10:52 AM EDT) Anatomical Region Laterality Modality Head, Neck Computed Tomogra phy 10/22/2022 10:5 2 AM EDT Narrative 11/02/2022 3:00 PM EDT ? [facility] ?[address] ?[place] [address] ? CT Scan Report ? Signed ? Patient: StephenMaida Child ?MR#: [id number] ?? 71 ? : 1955 ?Acct:[id number] ? Age/Sex: 67 / F ?ADM Date: 10/22/22 ? Loc: HO.CT ? Attending Dr: Igor Landry MD ? Ordering Physician: IGOR LANDRY MD ?? Date of Service: 10/22/22 ?? Procedure(s): CT head/brain wo IV con ?? Accession Number(s): [id number] ? cc: IGOR LANDRY MD ? EXAMINATION: [...] 1457 ? DD/ 1052 ? TD/TT: ? Naval Aircrewman: SUJ ? Procedure Note Donotchad, Image - 11/02/[address] [place] [address] [address] Scan Report Signed Patient: Maida Mitchell IMR#: [id number] 71 : 1955cct:[id number] Age/Sex: 67 / FADM Date: 10/22/22 Loc: HO.CT Attending Dr: Igor Landry MD Ordering Physician: IGOR LANDRY MD Date of Service: 10/22/22 Procedure(s): CT head/brain wo IV con Accession Number(s): [id number] cc: IGOR LANDRY MD EXAMINATION: CT HEAD [...] in OV> 11/02/22 1457 DD/ 1052 TD/TT: Naval Aircrewman: REGINA [facility] External Provider IMG CT PROCEDURES Edited Result - Final documented in this encounter Visit Diagnoses Not on filedocumented in this encounter Care Teams Bottom Stainer Relationship Specialty Start Date End Date Amelia Montalvo DO [address] [place] [address] PCP - General Family Medicine 06/23/12 documented as of this encounter
--- OUTSIDE RECORDS SUMMARY | 2024-11-27 06:18 | XMS_ITS | Encounter Summary ---
Author Organization [employer] [facility] Address [address] [facility] 7t [place] [address] Care Team Providers Care Sider Mechanic Name Role Phone Amelia Montalvo DO Primary Care Provider [phone] Encounter Details Date Type Department Care Team (Latest Contact Info) Description 08/10/2018 Abstract [facility] CONVERSIONS Dental, Provider, DDS Social [...] Description 12/06/2024 1:30 PM EDT Clinical Support [facility] MEDICINE [address] [place] [address] Mai Bishop RN 12/06/2024 2:30 PM EDT Office Visit [facility] ADULT DENTAL [address] [place] [address] Kristian Mendoza DDS [address] [place] [address] 06/20/2025 1:00 PM EST Office Visit [facility] ADULT DENTAL [address] [place] [address] Sujey Cerda documented as of this encounter Visit Diagnoses Not on filedocumented in this encounter Care Teams Sider Mechanic Relationship Specialty Start Date End Date Amelia Montalvo DO [address] [place] [address] PCP - General Family Medicine 06/23/12 documented as of this encounter
--- OUTSIDE RECORDS SUMMARY | 2024-11-27 06:18 | XMS_ITS | Encounter Summary ---
Author Organization [employer] [facility] Address [address] [address] 7t [place] [address] Care Team Providers Care Retail Experience Specialist Name Role Phone Amelia Montalvo DO Primary Care Provider [phone] Encounter Details Date Type Department Care Team (Late st Contact Info) Description 10/21/2023 Orders Only [facility] [address] [place] [address] Provider, MD Santos Social History Tobacco Use [...] Description 12/06/2024 1:30 PM EDT Clinical Support [facility] [address] [place] [address] Mai Bishop RN 12/06/2024 2:30 PM EDT Office Visit [facility] [address] [place] [address] Kristian Mendoza DDS [address] [place] [address] 06/20/2025 1:00 PM EST Office Visit [facility] [address] [place] [address] Sujey Cerda documented as of this encounter Procedures Procedure Name Priority Date/Time Associated Diagnosis Comments COLONOSCOPY Routine 05/31/2019 10:01 AM EST documented in this encounter Results * Hm Colonoscopy (05/31/2019 10:01 AM EST) us Historical Provider HEALTH MAINTENANCE Final Result documented in this encounter Visit Diagnoses Not on filedocumented in this encounter Care Teams Retail Experience Specialist Relationship Specialty Start Date End Date Amelia Montalvo DO [address] [place] [address] PCP - General Family Medicine 06/23/12 documented as of this encounter
--- OUTSIDE RECORDS SUMMARY | 2024-11-27 06:18 | XMS_ITS | Encounter Summary ---
Author Organization [employer] Address [address] [facility] 7t [place] [address] Care Team Providers Care Helmet Coverer Name Role Phone Amelia Montalvo DO Primary Care Provider + [phone] Reason for Visit * Reason Comments Med Refill Encounter Details Date Type Department Care Team (Late st Contact Info) Description 12/07/2022 Refill [facility] [address] [place] [address] Iram Ascencio FNP Social History Tobacco Use [...] [facility] [address] [place] [address] Mai Bishop RN 12/06/2024 2:30 PM EDT Office Visit [facility] [address] [place] [address] Kristian Mendoza DDS [address] [place] [address] 06/20/2025 1:00 PM EST Office Visit [facility] [address] [place] [address] Sujey Cerda documented as of this encounter Visit Diagnoses Not on filedocumented in this encounter Care Teams Helmet Coverer Relationship Specialty Start Date End Date Amelia Montalvo DO [address] [place] [address] PCP - General Family Medicine 06/23/12 documented as of this encounter
--- OUTSIDE RECORDS SUMMARY | 2024-11-27 06:18 | XMS_ITS | Encounter Summary ---
Author Organization [employer] [facility] Address [address] [facility] [address] [place] [address] Care Team Providers Care Network Consultant Name Role Phone Amelia Montalvo DO Primary Care Provider [phone] Encounter Details Date Type Department Care Team (Latest Contact Info) Description 06/04/2020 Abstract [facility] CONVERSIONS Dental, Provider, DDS Social History [...] Description 12/06/2024 1:30 PM EDT Clinical Support [facility] [address] [place] [address] Mai Bishop RN 12/06/2024 2:30 PM EDT Office Visit [facility] [address] [place] [address] Kristian Mendoza DDS [address] [place] [address] 06/20/2025 1:00 PM EST Office Visit [facility] [address] [place] [address] Sujey Cerda documented as of this encounter Visit Diagnoses Not on filedocumented in this encounter Care Teams Network Consultant Relationship Specialty Start Date End Date Amelia Montalvo DO [address] [place] [address] PCP - General Family Medicine 06/23/12 documented as of this encounter
== END 2024-11-27 06:16 | disposition home or self-care (01) ==
LOC: CF 06:15
PROVIDERS: Visit Provider Anesthesiology
DX: Z13.89 Encounter for screening for other disorder (principal)

== ENCOUNTER 2025-01-09 08:11 | Outpatient (REF) | payer OTHER, SELFPAY ==
--- OUTSIDE RECORDS SUMMARY | 2025-01-09 08:13 | XMS_ITS | Data Portability ---
Author Organization [facility] [employer] [facility], Main Office Address [address] [address] [place] [address] Care Team Providers Care Plant Specialist Name Role Phone WESTLEY AMBROCIO - 2ND FLOOR OTHER DIANELYS IYER Primary Care Provider [phone] Assessment Encounter Date Assessment Date Assessment LastModified by Organization Details LastModified Time 01/11/2024 01/11/2024 I have seen and examined the patient independently and confirmed the findings above with the BENEFIT AUTHORIZER student note. Management plan discussed with the BENEFIT AUTHORIZER student personally. [email or web address] Not available 01/11/2024 13:09:31 Plan of Treatment [...] Recorded Time Chronic obstructi ve pulmonary disease 52030678 Active 2023 Jennifer Zaragoza NP [address] [facility], [address], [place], [address], [facility] [employer] 4 14:58:38 Restless legs 59723543 Active 2023 Jennifer Zaragoza NP [address] [facility], [address], [place], [address], [facility] [employer] [facility] 4 14:58:57 Osteoarth ritis 402263915 Active 2023 Jennifer Zaragoza NP [address] [facility], [address], [place], [address], [place] [facility] 4 14:59:07 Gastroeso phageal reflux disease 437940560 Active 2023 Jennifer Zaragoza NP [address], [address], [place], [address], [facility] 4 14:59:12 Abnormal small bowel motility 70999262 Active 2023 Jennifer Zaragoza NP [address], [address], [place], [address], [facility] 4 14:59:26 Allergic rhinitis 75413232 Active 2023 Jennifer Zaragoza NP [address], [address], [place], [address], [facility] 4 14:59:38 Anxiety 91687510 Active 2023 Jennifer Zaragoza NP [address], [place], [address], [facility] 4 14:59:47 Total knee replaceme nt Active 2023 Jennifer Zaragoza NP [address], [address], [place], [address], [facility] 4 15:00:05 Pain of right knee region 309125854206 105 Active 2023 Jennifer Zaragoza NP [address], [address], [place], [address], [facility] 4 15:02:07 Migraine 18498159 Completed 202312/23/2023 Jennifer Zaragoza NP [address], [place], [address], [facility] 4 15:02:20 Vertigo 739332619 Active 2023 Jennifer Zaragoza NP [address], [place], [address], [facility] 4 15:02:40 Asthenia 32752097 Active 2023 Jennifer Zaragoza NP [address], [place], [address], [facility] 4 15:03:52 Headache disorder 067386185 Active 2023 Omkar Clement MD [address] [facility], [address], [place], [address], [facility] 4 11:36:49 Primary osteoporo sis 260235675 Active 2023 Omkar Clement MD [address], [address], [place], [address], [facility] 4 11:37:06 Chronic idiopathi c constipat ion 33947929 Active 2023 Omkar Clement MD [address] [facility], [address], [place], [address], [facility] 4 11:37:24 Problem Notes None recorded. Procedures Surgical History Date Name Laterality Status Provider Name and Address Organization Details Recorded Time 2023 total replacement of left knee joint completed Jennifer Zaragoza NP [address] [facility], [address], [place], [address], [facility] 4 14:43:53 total replacement of right knee joint completed Jennifer Zaragoza NP [address] [facility], [address], [place], [address], [facility] 4 14:43:20 operation on external ear completed Jennifer Zaragoza NP [address] [facility], [address], [place], [address], [facility] 4 14:44:10 colonoscopy completed Jennifer Zaragoza NP [address] [facility], [address], [place], [address], [facility] 4 14:44:26 esophagogastroduodenoscopy completed Jennifer Zaragoza NP [address] [facility], [address], [place], [address], [facility] 4 14:44:38 Imaging Results None recorded. Procedure Notes None recorded. Medical Equipment None Reported. Allergies Allergen ID Allergen Name Allergen Category Reaction Reaction Severity Criticality Documentation Date Start Date Code Code System Note Provider Name and Address Organization Details Recorded Time 64638 vancomyci n medicatio n other Not available high 12/23/2023 20376 RxNorm redne ss swell ing Jennifer Zaragoza NP [address] [facility], [address], [place], [address], [facility] 4 14:51:32 46430 tetanus and diphtheri a toxoids Not available anaphylax is severe high 12/23/2023 70101 UNK fever Jennifer Zaragoza NP [address] [facility], [address], [place], [address], [facility] 4 14:52:13 Medications Not known to be on any medication Vitals Date Recorded Body weight Heart rate Respiratory rate Body temperature Oxygen saturation Oxygen saturation in Arterial blood by Pulse oximetry Systolic blood pressure Diastolic blood pressure Provider Name and Address Organization Details Last Updated DateTime 4 31389.4 4 g 75 /min 18 /min 98 [degF] 97 % 97 % 120 mm[Hg] 70 mm[Hg] Jennifer Zaragoza NP [address] [facility], [address], [place], [address], [facility] 4 13:15:38 Date Recorded Body weight Heart rate Respiratory rate Body temperature Oxygen saturation Oxygen saturation in Arterial blood by Pulse oximetry Systolic blood pressure Diastolic blood pressure Provider Name and Address Organization Details Last Updated DateTime 4 55292.4 4 g 64 /min 18 /min 97.6 [degF] 97 % 97 % 124 mm[Hg] 68 mm[Hg] Jennifer Zaragoza NP [address] [facility], [address], [place], [address], [facility] 4 18:04:40 Date Recorded Body weight Heart rate Respiratory rate Body temperature Oxygen saturation Oxygen saturation in Arterial blood by Pulse oximetry Systolic blood pressure Diastolic blood pressure Provider Name and Address Organization Details Last Updated DateTime 4 09736.4 4 g 62 /min 16 /min 98.4 [degF] 98 % 98 % 124 mm[Hg] 68 mm[Hg] Jennifer Zaragoza NP [address] [facility], [address], [place], [address], [facility] 4 09:59:09 Date Recorded Heart rate Respiratory rate Body temperature Oxygen saturation Oxygen saturation in Arterial blood by Pulse oximetry Systolic blood pressure Diastolic blood pressure Provider Name and Address Organization Details Last Updated DateTime 4 78 /min 18 /min 98.5 [degF] 95 % 95 % 118 mm[Hg] 70 mm[Hg] ANA BENJAMIN NP [address] [facility], [address], [place], [address], [employer] [facility] 4 09:45:01 Date Recorded Body weight Heart rate Respiratory rate Body temperature Oxygen saturation Oxygen saturation in Arterial blood by Pulse oximetry Systolic blood pressure Diastolic blood pressure Provider Name and Address Organization Details Last Updated DateTime 4 84491.8 9 g 70 /min 18 /min 98.2 [degF] 99 % 99 % 129 mm[Hg] 74 mm[Hg] MELISSA SIMON [address] [facility], [address], [place], [address], [facility] 4 17:48:15 Social History Question Answer Notes LastModified by [employer] Details LastModified Time Tobacco Smoking Status Former Smoker Jennifer Zaragoza NP [address] [facility], [address], [place], [address], [facility] [employer] [facility] 12/23/2023 14:48:10 Do You Have An Advance [...] Time Hep B, unspecified formulation 4 completed [facility] 12/23/2023 10:39:43 Hep B, unspecified formulation 5 completed [facility] 12/23/2023 10:39:51 Hep B, unspecified formulation 5 completed [facility] 12/23/2023 10:39:57 Pneumococcal conjugate PCV 13 9 completed [facility] 12/23/2023 10:40:57 pneumococcal polysaccharide PPV23 5 completed [facility] 12/23/2023 10:41:39 pneumococcal polysaccharide PPV23 2 completed [facility] 12/23/2023 10:41:50 pneumococcal polysaccharide PPV23 1 completed [facility] 12/23/2023 10:41:58 influenza, unspecified formulation 2 completed Della Jeet [facility] 12/23/2023 10:42:16 influenza, unspecified formulation 3 completed [facility] 12/23/2023 10:42:24 SARS-COV-2 (COVID-19) vaccine, UNSPECIFIED 1 [facility] 12[facility]23 10:42:40 SARS-COV-2 (COVID-19) vaccine, UNSPECIFIED 1 completed Della Marcano [facility] 12/23/2023 10:42:49 SARS-COV-2 (COVID-19) vaccine, UNSPECIFIED 4 completed Della [facility] 12/23/2023 10:42:56 zoster live 4 completed [facility] 12/23/2023 10:43:30 zoster recombinant 1 completed [facility] 12/23/2023 10:43:50 zoster recombinant 1 completed [facility] 12/23/2023 10:44:01 Past Encounters Encounter ID Performer Location Encounter Start Date Encounter Closed Date Diagnosis/Indication Diagnosis SNOMED-CT Code Diagnosis ICD10 Code Diagnosis Note [id number] Jennifer Zaragoza NP [address] [address] 12/23/2023 14:27:58 12/27/2023 10:39:41 Pain of right knee region 3108346097 76034 M25.561 sp 12/[address] [...] s/s infection Chronic ob structive pulmonary disease 31145364 J44.9 albuterol 2 puff po q 4 prnalb neb q 4hours prn sobflutica sone/salme terol 250/50 bidmonitor Restless legs 21246522 G 25.81 ropinirole 0.25 mg po qhsmonitor Osteoarthritis 968304023 M19.90 now with 2 knee surgeries to help with painwith 2 calcium citrate vit d 3 2 tab bidvit b12 1000 mcg dailyvit d 3 50 mcg po dialyalend ronate 70 mg q weekmonito r Abnormal s mall bowel motility 20470759 R19.8 bm todaymulti vit with iron qdfiber lax 625 mg po qddocusate 100 mg po bidbisacod yl 5 mg po qhsmonitor Gastroesop hageal reflux disease 479019421 K21.9 omeprazole 20 mg bidmetoclo pramide 10 mg po qidlinzess 290 mcgh cap q amfamotidi ne 40 mg po qhszofran 4 mg po q 8 prnmonitor Anxiety 67360555 F41.9 contmirtaz apine 22.5 mg po qhsclonaze ana 1 mg po bid prnmonitor Vertigo 922238406 R42 meclizine 25 mg po tid prn Allergic rhinitis 887747 04 J30.9 azelastine 137mcg intranasal daily both naresfluti casone 50 mcg 2 spray intranasal dailylorat idine 10 mg po dailyzafir lukast 20 mg po bidmonitor Asthenia 86620852 R53.1 pt ot treat and evalmonito r Migraine 24948870 G43.90 9 sumatripta n 100 mg po q 2-4 hours prn (nte 2 doses in 24 hours) [id number] Jennifer Zaragoza NP [address] [address] 12/26/2023 13:46:11 12/29/2023 09:48:46 Pain of right knee region 5695298856 17774 M25.561 sp 12/[address] [...] s/s infection Chronic ob structive pulmonary disease 93953028 J44.9 contalbute rol 2 puff po q 4 prnalb neb q 4hours prn sobflutica sone/salme terol 250/50 bidmonitor Restless legs 91677028 G 25.81 contcropin irole 0.25 mg po qhsmonitor Osteoarthritis 504803365 M19.90 now with 2 knee surgeries to help with painwith 2 calcium citrate vit d 3 2 tab bidvit b12 1000 mcg dailyvit d 3 50 mcg po dialyalend ronate 70 mg q weekmonito r Vertigo 196894118 R42 meclizine 25 mg po tid prn Allergic rhinitis 329302 04 J30.9 azelastine 137mcg intranasal daily both naresfluti casone 50 mcg 2 spray intranasal dailylorat idine 10 mg po dailyzafir lukast 20 mg po bidmonitor Asthenia 54380612 R53.1 pt ot treat and evalmonito r [id number] Omkar Clement MD [address] [address] 12/27/2023 11:30:56 12/29/2023 10:05:35 Osteoarthritis of left knee joint 8301857323 16005 M17.12 end stage OA left knee now s/p TKRASA 325 mg bid for dvt prophylaxi sfollow ortho recs and update with concernsPT OT Eval and treatmonit or for pain control Chronic ob structive pulmonary disease 43987328 J41.1 advair 250/50 bidmonitor respirator y status and albuterol utilizatio n Restless legs 89041872 G 25.81 ropinirole 0.25 mg po qhsmonitor for effect Vertigo 840966193 R42 carrying dxmeclizin e 25 mg po tid prnmonitor for sx and need for further workup Allergic rhinitis 615655 04 J30.2 appears to be significan t issue for patient at baselineco ntinue out patient medsavoid PO steroid given post op statusmoni tor sx Asthenia 63885652 R53.1 PT OT eval and treatmonit or fall risk Chronic id iopathic constipation 15804060 K59.04 appears with dysmotilit y disorderma intained onlinzess 290 mg qdmonitor for effectGI eval prn Primary osteoporosis 276 699096 M81.0 fosamax 70 mg q weekcontin ued Headache disorder 132071 009 G44.89 baseline migraine hxon imitrex prnadded to PMH Gastroesop hageal reflux disease 481974447 K21.9 famotidine 40 mg qdmonitor for sx relief Cellulitis of left lower limb 9109684550 0943903 L03.116 concern for infection at incision sitestarte d on keflexorth o updated and reeval not felt to be infectedab x d/c'ed [id number] Jennifer Zaragoza NP [address] [address] 12/28/2023 13:14:27 01/04/2024 15:54:46 Osteoarthritis of left knee joint 0742106174 56484 M17.12 end stage OA left knee now s/p TKRASA 325 mg bid for dvt prophylaxi s until 02/02follow ortho recsand update with concerns and monitor for infectionP T OT Eval and treatmonit or for pain control Cellulitis of left lower limb 9253429200 9141881 L03.116 concern for infection at incision sitestarte d on keflexorth o updated and reeval not felt to be infectedab x d/c'ed on 12/26ice prnwbc is 11.2 on 12/26 elevated, however site is less warm and decreased swellingmo nitor closely for infection and reeval labs on tuesday Asthenia 29355018 R53.1 PT OT eval and treatmonit or fall risk Restless legs 31839191 G 25.81 ropinirole 0.25 mg po qhsmonitor for effect [id number] Jennifer Zaragoza NP [address] [address] 01/04/2024 16:01:53 01/10/2024 09:58:03 Osteoarthritis of left knee joint 7634718701 12718 M17.12 end stage OA left knee now s/p TKRASA 325 mg bid for dvt prophylaxi s until 02/02follow ortho recsand update with concerns and monitor for infectionP T OT Eval and treatmonit or for pain control Asthenia 82385672 R53.1 PT OT eval and treatmonit or fall risk Restless legs 74384448 G 25.81 ropinirole 0.25 mg po qhsmonitor for effect Dysuria 05683398 R30.0 pt with report of dysuria and frequencyu rinalysis with c & spyridium 200 mg po tid prn dysuria to start after sample is obtainedpt educated about orange discolorat ion to urinemonit or ua and consider abx if needed [id number] Jennifer Zaragoza NP [address] [address] 01/06/2024 09:58:30 01/10/2024 11:28:47 Dysuria 56818288 R30.0 UTI ruled outpt with report of dysuria and frequency, states she has not had bowel movement in a few dayssee constipati on01/05 urinalysis with c & s with culture showing no infection dc pyridium 200 mg po tid prnmonitor ua and consider abx if needed Osteoarthr itis of left knee joint 5754172439 M17.12 end stage OA left knee now s/p TKRpt reports ortho visit yesterday and removed suturesste ri strips in place today.nsg to obtain consult info from orthoASA 325 mg bid for dvt prophylaxi s until 02/02follow ortho recsand update with concerns and monitor for infectionP T OT Eval and treatmonit or for pain control Asthenia 80869475 R53.1 PT OT eval and treatmonit or fall risk Abnormal s mall bowel motility 20842090 R19.8 no bm in a few daysmultiv it with iron qdfiber lax 625 mg po qddocusate 100 mg po bidbisacod yl 5 mg po qhs01/05inc rease senna to 2 tabs per daygive mom 30cc todaymonit or [id number] ANA BENJAMIN, KERLINE [facility] [address] [address] 01/11/2024 09:00:48 01/19/2024 12:49:58 Abnormal small bowel motility 03240394 R19.8 no bm in a few days [...] qd Add miralax dailyMonit or bowels Dysuria 69828053 R30.0 UTI ruled outpt had reported dysuria and frequency on 01/05 - no complaints today, seems resolved urinalysis with c & s with culture neg01/05 dc pyridium 200 mg po tid prnmonitor sx. Osteoarthr itis of left knee joint 0684206682 79824 M17.12 end stage OA left knee now [...] home Sat. 7/6monitor for pain control Asthenia 11685003 R53.1 PT OT eval and treatSee above, meeting rehab goals, goal home 7/6monitor fall risk [id number] MELISSA SIMON [facility] [address] [address] 01/13/2024 11:41:32 01/19/2024 13:26:02 Osteoarthritis of left knee joint 1145856204 02256 M17.12 end stage OA left knee now s/p TKRASA 325 mg bid for dvt prophylaxi sfollow up with ortho outpatient Restless legs 45668703 G 25.81 ropinirole 0.25 mg po qhs Chronic ob structive pulmonary disease 14681578 J41.1 advair 250/50 bid Vertigo 124701979 R42 carrying dxmeclizin e 25 mg po tid prnmonitor for sx and need for further workupfoll ow up outpatient Allergic rhinitis 667893 04 J30.2 appears to be significan t issue for patient at baselineco ntinue out patient medsavoid PO steroid given post op statusmoni tor sx Chronic id iopathic constipation 84711005 K59.04 appears with dysmotilit y disorderma intained onlinzess 290 mg qdmonitor for effectGI eval prn Primary osteoporosis 276 487388 M81.0 fosamax 70 mg q weekcontin ued Headache disorder 784168 009 G44.89 baseline migraine hxon imitrex prnadded to PMH Gastroesop hageal reflux disease 092632123 K21.9 famotidine 40 mg qdmonitor for sx relief Abnormal s mall bowel motility 38443211 R19.8 Continue:l inzess 290 mg qd for IBSfiber lax 625 mg po qd docusate 100 mg po bid bisacodyl 10 mg po qhs senna 2 tabs qd miralax 17 gn daily Anxiety 06416345 F41.9 contmirtaz apine 22.5 mg po qhsclonaze ana 1 mg po bid prnmonitor Osteoarthritis 580470321 M19.90 now with 2 knee surgeries to [...] None Recorded Advance Directives Directive Y: Payers Insurance Date Sequence Insurance Name Policy Number Policy Kimble Covered Member ID Kimble Member ID Guarantor Name 01/19/2024 1 [facility] - DOS ON OR AFTER 2022 - MEDICARE [place]VANTAGE [place]MEDICARE REPLACEMENT/ADV ANTAGE - PPO) Maida Mitchell [id number] Maida Mitchell Notes Date Note Type Note [...] bid for DVT prophylaxis. She is at [facility] for rehab and continued care felt [...] or complaints today. Jennifer Zaragoza, KERLINE [address] [facility], [address], [place], [address], [facility] 12/28/2023 13:29:09 01/04/2024 text/html Pt is seen for a n acute rounding visit. She is a 68 yo female admit from hospital after presenting with end stage OA left knee for TKR having failed conservative treatment without complications in hospital on ASA 325 mg bid for DVT prophylaxis. She is at [facility] for rehab and continued care felt [...] No cva tenderness. Jennifer Zaragoza NP [address] [facility] [address] [facility], [address], [place], [address], [facility] [employer] 01/04/2024 18:17:27 01/06/2024 text/html Pt is seen [...] and well approximated. Jennifer Zaragoza NP [address] [facility], [address], [place], [address], [facility] [employer] 01/06/2024 10:22:58 01/11/2024 text/html Pt is seen [...] does have asthma/COPD). ANA BENJAMIN NP [address] [facility] [address] [facility], [address], [place], [address], [facility] [employer] [facility] 01/11/2024 13:15:56 01/13/2024 text/html Maida is a 68 yr old female seen today for discharge on 01/14/24. Admitted to [facility] from hospital after presenting with end [...] she will be receiving support services with [facility]. she can be discharge to home with medications, PT/OT and vna services. PMH is significant for OA,anxiety,RLS,gerd ,copd,chronic constipation,vertig o migraine LARA, osteoporosis MELISSA SIMON [address] [facility] [address] [facility], [address], [place], [address], [facility] [employer] [facility] 01/13/2024 17:48:53 OBGyn Episode No OBEpisode recorded.
--- OUTSIDE RECORDS SUMMARY | 2025-01-09 08:13 | XMS_ITS | Patient Health Record ---
Author Organization [facility] Address [address] [place] [address] Care Team Providers Care Power Transformer Inspector Name Role Phone Clinton De Leon Jr [phone] Reason For Referral No Information Plan Of Treatment No Information
[2025-01-09 11:48] LABS: Hematocrit 37.6 % (37.0-47.0); Hemoglobin 11.9 g/dl (12.0-16.0); Mean Corpuscular HGB Conc 31.6 g/dl (31.0-35.0); Mean Corpuscular Hemoglobin 26.5 pg (27.0-33.0); Mean Corpuscular Volume 83.7 fL (80.0-98.0); NRBC Abs Auto 0.000 X10*3/uL (0.0-0.012); NRBC Pct Auto 0.0 /100WBC (0.0-0.2); Platelet Count 341 X10*3/uL (160-400); Red Blood Count 4.49 X10*6/uL (4.20-5.50); White Blood Count 5.2 X10*3/uL (4.8-10.8)
[2025-01-09 11:56] LABS: Hemoglobin A1C 122.0637 umol/L; Total Hemoglobin (HGBA1C) 3160.8456 umol/L
[2025-01-09 12:21] LABS: Alanine Aminotransferase 16 U/L (0-31); Albumin Level 4.0 g/dL (3.5-5.0); Alkaline Phosphatase 64 U/L (39-117); Anion Gap 9 (12-20); Aspartate Amino Transferase 19 U/L (5-31); Blood Urea Nitrogen 15 mg/dL (9-16); Calcium 8.8 mg/dL (8.4-10.2); Carbon Dioxide 28 mmol/L (22-29); Chloride 106 mmol/L (96-108); Cholesterol 189 mg/dL (<200); Estimated Glomerular Filt Rate > 60; HDL Cholesterol 51 mg/dL (>40); Potassium 4.1 mmol/L (3.3-5.1); Sodium 139 mmol/L (135-145); Total Protein 6.3 g/dL (6.5-8.0); Triglycerides 82 mg/dL (<150)
[2025-01-09 12:39] LABS: Anion Gap 10 (12-20); Blood Urea Nitrogen 14 mg/dL (9-16); Calcium 8.6 mg/dL (8.4-10.2); Carbon Dioxide 28 mmol/L (22-29); Chloride 106 mmol/L (96-108); Estimated Glomerular Filt Rate > 60; Potassium 4.1 mmol/L (3.3-5.1); Sodium 140 mmol/L (135-145)
[2025-01-09 12:47] LABS: Free T4 (Free Thyroxine) 0.92 ng/dL (0.71-1.85); Thyroid Stimulating Hormone 2.57 uIU/mL (0.32-4.0)
== END 2025-01-09 08:12 | disposition home or self-care (01) ==
LOC: HO.HHCL 08:11
PROVIDERS: PCP Family Medicine; Visit Provider Family Medicine
DX: F41.9 Anxiety disorder, unspecified (principal); R07.2 Precordial pain; J44.9 Chronic obstructive pulmonary disease, unspecified; J30.9 Allergic rhinitis, unspecified; G43.909 Migraine, unspecified, not intractable, without status migrainosus; D64.9 Anemia, unspecified; K21.9 Gastro-esophageal reflux disease without esophagitis; K59.09 Other constipation; M81.0 Age-related osteoporosis without current pathological fracture; M25.562 Pain in left knee; G89.29 Other chronic pain; Z96.652 Presence of left artificial knee joint; R00.2 Palpitations; R07.89 Other chest pain; R53.83 Other fatigue; Z00.00 Encounter for general adult medical examination without abnormal findings
CPT/HCPCS: 36415; 80048; 80061; 80076; 82306; 83036; 84439; 84443; 85027

== ENCOUNTER 2025-01-10 09:37 | Outpatient (AMB) | payer OTHER, SELFPAY ==
--- NOTE | 2025-01-10 09:51 | MHC.OFFVIS ---
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 Intake Note: room 3 Rivet Catcher Required: Yes Rivet Catcher Language: Custody Assistant Name: margie Information Interpreted: clinical only (margie and Rosana) Senior Grants Officer: Senior Grants Officer Present Accompanied by: Self / Same As Patient Allergies vancomycin (VANCOMYCIN) Allergy (Severe, Verified 01/10/25 10:59) REDNESS,RASH,SWELLING Tetanus & Diphtheria Tox,Adult Allergy (Severe, Uncoded 01/10/25 10:59) FEVER,DIFF.BREATHING Medication List - Last Reconciled 01/10/25 by Dina Wooten LPN acetaminophen 650 mg (2 x 325 mg) PO Q6H PRN 30 days albuterol sulfate 90 mcg/actuation 2 puffs PO Q4H PRN albuterol sulfate 2.5 mg inhalation Q4H PRN alendronate 70 mg PO QWEEK azelastine 1 spray intranasal DAILY bisacodyl 2 tabs qhs and 1 qam orally bedtime; PLEASE PUT IN PILL PACKS calcium citrate-vitamin D3 200 mg-6.25 mcg (250 unit) (Barnes Calcium) 2 tabs PO BID calcium polycarbophil (Fiber-Lax) 625 mg PO DAILY cholecalciferol (vitamin D3) 50 mcg PO DAILY clonazepam 1 mg PO BID PRN cyanocobalamin (vitamin B-12) 1,000 mcg PO DAILY divalproex ER mg PO docusate sodium 100 mg PO BID doxycycline hyclate 100 mg PO BID 7 days famotidine 40 mg PO BEDTIME Held on 05/01/24. Instructions: Doctor's Order fluticasone propion-salmeterol 250-50 mcg/dose 1 ea inhalation BID fluticasone propion-salmeterol 250-50 mcg/dose (Wixela Inhub) 1 inh inhalation BID 30 days MDD Asthma/COPD fluticasone propionate 50 mcg/actuation 2 sprays intranasal DAILY ibuprofen 400 mg PO Q6H PRN linaclotide (Linzess) 290 mcg PO QAM 30 days loratadine 10 mg PO DAILY meclizine 25 mg PO TID PRN melatonin 5 - 10 mg PO BEDTIME PRN metoclopramide HCl (Reglan) 10 mg PO QID mirtazapine 22.5 mg PO BEDTIME multivit-iron sulf-folic acid 15 mg iron- 400 mcg (Tab-A-Aurea Multivitamin w-iron) 1 tab PO DAILY naproxen 500 mg PO BID PRN 10 days omeprazole 20 mg PO BID ondansetron 4 mg PO Q8H ropinirole 0.25 mg PO BEDTIME sumatriptan succinate mg PO walker Folding Front wheeled walker walker Folding Front wheeled walker zafirlukast 20 mg PO BID Is last menstrual period known: No Post menopausal: Yes Patient : No Followed by:: Dina Wooten LPN Do you need a note to return to daycare/school/sports/work: No HPI Comments Details: Patient is a postmenopausal woman 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 She is doing well with no gun club manager concerns: frequency of urination, no burning, pelvic pain or odors. Currently not sexually active. STI testing offered; she declines. Attempting to eat a healthy diet with calcium and vitamin D and stays active with exercise. Last pap smear; 2022, negative. Last mammogram; 2022. Completed at [facility] last week. Colonoscopy is UTD. Denies any family history of breast, ovarian or colon cancer. [facility] Medical History Osteoarthritis of left knee COPD exacerbation Hypoxia Gastric pain Vaginal irritation History of revision of total replacement of right knee joint Lumbar radiculopathy Osteoarthritis GERD (gastroesophageal reflux disease) Small bowel motility disorder COPD (chronic obstructive pulmonary disease) Anxiety Surgical History History of left knee replacement History of right knee joint replacement History of total right knee replacement History of ear surgery Hx of colonoscopy History of esophagogastroduodenoscopy (EGD) Family History Father Diabetes Mother Diabetes Osteoporosis HTN (hypertension) Sister Pancreas cancer Social History Household Members: None Housing: Apartment Are you a primary child care provider to a significant other at home: No Do you presently have visiting nurse or other home services: No Alcohol intake: never Patient Tobacco Use Status: Former Tobacco user Tobacco use type: Cigarette e-Cigarette/Vaping Use: Never Used Second Hand Smoke Exposure: No Advance Directives Date on File: 11/28/20 service: No Current occupational status: unemployed and disabled 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 Female Reproductive History Menstrual Age of Menarche: 13 Total pregnancies: 0 Date of last pap smear: 07/17/20 History of abnormal pap smear: No History of STI: No Date of Mammogram: 01/04/25 Date of last Bone Density Screenin03/22/22 Review of Systems Const All systems reviewed & are unremarkable except as noted in HPI and below Reports as per HPI Eyes Reports no additional complaints ENT Reports no additional complaints Card Reports no additional complaints Resp Reports no additional complaints GI Reports as per HPI and Reports no additional complaints Reports as per HPI Musc Reports no additional complaints Skin/Breast Reports as per HPI Neuro Reports no additional complaints Psych Reports no additional complaints Endo Reports no additional complaints Morgan/Lymph Reports no additional complaints Aller/Immun Reports no additional complaints Physical Exam Vital Signs: Last Vital Signs BP 112/64 01/10/25 09:52 BMI result Body Mass Index 26.6 Const General: cooperative, healthy appearing, no acute distress, well developed and alert Orientation/consciousness: patient oriented x3 HEENT Head: Yes normal to inspection Eyes General: appearance normal, both eyes and all related structures Neck Neck: Yes normal visual inspection Thyroid: Thyroid normal Chest Chest palpation & inspection: normal inspection of the chest and other (no puckering, dimpling, peau de orange, retraction, discharge, masses) Breast/axilla inspection: normal inspection of the breasts Breast/axilla palpation: normal palpation of the breasts Resp Effort & Inspection: normal respiratory effort GI Inspection: Yes normal to inspection Palpation (GI): Soft to palpation Rectal Exam - Female: deferred General: Yes bladder normal to palpation External Female Exam: normal external appearance and normal appearance of the urethra Speculum Exam - Vagina: normal appearance of the vagina, normal palpation, normal vaginal discharge and vagina atrophic Speculum Exam - Cervix: normal appearance of the cervix and normal palpation Bimanual exam- vagina & uterus: normal bimanual exam, normal palpation, uterine size normal, bladder normal to palpation, normal palpation and non-tender Bimanual Exam- Adnexa, other: no masses Skin General skin exam: no rashes or lesions noted Rashes: no rashes Neuro General: patient oriented x3 Cognition (Neuro): normal cognition Extrem General: Yes normal to inspection Psych Attitude: cooperative Thought process: Normal thought process present Results AMB Urinalysis Dipstick UR Leukocytes Last Edit by Dina Wooten LPN on 01/10/25 10:54 UR Nitrite Last Edit by Dina Wooten LPN on 01/10/25 10:54 UR Urobilinogen Last Edit by Dina Wooten LPN on 01/10/25 10:54 UR Protein Last Edit by Dina Wotoen LPN on 01/10/25 10:54 UR Ph Last Edit by Dina Wooten LPN on 01/10/25 10:54 UR Blood Last Edit by Dina Wooten LPN on 01/10/25 10:54 UR Specific [place] 1.015 Last Edit by Dina Wooten LPN on 01/10/25 10:54 UR Ketone Last Edit by Dina Wooten LPN on 01/10/25 10:54 UR Bilirubin Last Edit by Dina Wooten LPN on 01/10/25 10:54 UR Glucose Last Edit by Dina Wooten LPN on 01/10/25 10:54 Assessment & Plan Assessment & Plan (1) Encounter for well woman exam with routine gynecological exam: Code(s): Z01.419 - Encounter for gynecological examination (general) (routine) without abnormal findings Category: Medical Plan: Discussed: Current recommendations for pap smears per ASCCP guidelines. Breast awareness, periodic self breast exams and yearly mammogram. Maintain a healthy lifestyle, well balanced diet including Calcium 1,200 mg and Vitamin D 600 IU daily, and routine exercise. Contact the office with any postmenopausal bleeding. Patient verbalizes understanding and agrees to the plan of care. She was given opportunity to ask questions and all questions were answered to the best of my ability. RTO in 1 year for annual gun club manager exam. This note is constructed using voice recognition software. While every effort has been made to ensure accuracy, sales contract administrator errors may have been included. (2) Frequency of urination: Code(s): R35.0 - Frequency of micturition Plan Urine dip today is negative. Follow up PCP if symptoms persist. Encouraged increased hydration. The patient expressed understanding and agreement with the plan of care. All of her questions and concerns were addressed to the best of my ability. Total time I personally spent on visit and management today: ? minutes. Time spent included review of pertinent office notes in the electronic health record; review of laboratory and imaging results; review of personal family medical history; performing physical exam; discussing diagnosis and plan of care with the patient; documenting the encounter in the EMR. Orders: Orders AMB Urinalysis Dipstick Today R10.2 - Pelvic and perineal pain Coding Level of Care Code Est Pt Level 2 (37332) Est Pt Prev Care >65y(09249) Diagnoses Encounter for well woman exam with routine gynecological exam Z01.419 Frequency of urination R35.0
[2025-01-10 09:52] VITALS: BP 112/64; BMI 26.6
--- OUTSIDE RECORDS SUMMARY | 2025-01-10 10:00 | XMS_ITS | Patient Health Record ---
Author Organization [facility] Address [address] [place] [address] Care Team Providers Care Checkering Machine Adjuster Name Role Phone Clinton De Leon Jr Reason For Referral No Information Plan Of Treatment No Information
--- OUTSIDE RECORDS SUMMARY | 2025-01-10 10:00 | XMS_ITS | Encounter Summary ---
Author Organization [facility] Address [address] [place] [address] Care Team Providers Care Hydroelectric Station Operator Chief Name Role Phone Amelia Montalvo DO Primary Care Provider [phone] Encounter Details Date Type Department Care Team (Late st Contact Info) Description 10/21/[address] [facility] [address] [place] [id number] Provider, Historical, Social History Tobacco Use Types Packs/Day Years [...] Care Team (Late st Contact Info) Description 03/12/2025 1:00 PM EDT Clinical Support [facility] [address] [place] [id number] Mai Bishop RN 06/20/2025 1:00 PM EST Office Visit [facility] [address] [place] [id number] Sujey Cerda documented as of this encounter Procedures Procedure Name Priority Date/Time Associated Diagnosis Comments HM COLONOSCOPY Routine 05/31/2019 10:01 AM EST documented in this encounter Results * Hm Colonoscopy (05/31/2019 10:01 AM EST) Historical Provider HEALTH MAINTENANCE Final Result documented in this encounter Visit Diagnoses Not on filedocumented in this encounter Care Teams Hydroelectric Station Operator Chief Relationship Specialty Start Date End Date Amelia Montalvo DO [address] [place] [address] PCP - General Family Medicine 06/23/12 documented as of this encounter
--- OUTSIDE RECORDS SUMMARY | 2025-01-10 10:00 | XMS_ITS | Data Portability ---
Author Organization [facility], [facility] Address [address] [place] [address] Care Team Providers Care Milled Rubber Tender Name Role Phone HIM CCA OTHER [facility] Primary Care Provider [phone] Assessment Encounter Date Assessment Date Assessment LastModified by Organization Details LastModified Time 07/28/2023 07/28/2023 I provided real -time medical direction via phone for this encounter, and was available for additional phone based assistance as needed. I have reviewed and agree with the Assessment and Plan as documented by the Perfect Binder Feeder Offbearer. We discussed the diagnostic uncertainty of home [...] verbalized understanding of instructions to the medic [email or web address] Not available 07/29/2023 00:10:23 04/11/2024 04/11/2024 As noted, we wer e called to see this patient regarding concerns of chest tightness and increased wob. Evaluation in the field was performed by my supervisor production managing colleague, as noted above, I provided real-time [...] worsening serious symptoms, particularlyworsening shortness of breath [email or web address] Not available 04/11/2024 18:52:12 Plan of Treatment Reminders Order Date Submit Date Provider Last Modified By Organization Details Last Modified Time Details Appointments None recorded. Lab influenza virus A + B and SARS CoV 2 (COVID-19) and RSV RNA panel, AKASH+probe, respiratory specimen 2023 [place] [facility] (Centralized Electronic Ordering - All Locations), Patient Can Go To The Location Of Their Choice, [id number] 4 04:09:28 rapid SARS CoV 2 Ag, QL IA, respiratory specimen 2023 024 [email or web address] 0 [facility] - [facility], [address] [place] [address], [id number] 4 12:36:39 rapid flu (A+B) 2023 024 [email or web address] 0 [facility] - [facility], [address] [place] [address], [id number] 4 12:36:41 Referral None recorded. Procedures None recorded. Surgeries None recorded. Imaging None recorded. Medication Orders prednisone 20 mg tablet 2023 [email or web address] [facility], [address] [place] [address], [id number], 16:11:44 prednisone 20 mg tablet 2023 [facility], [address] [place] [address], [id number], 4 12:49:19 albuterol sulfate 2.5 mg/3 mL (0.083 %) solution for nebulizatio n 2023 [facility], [address] [place] [address], [id number], 4 12:49:19 Zithromax Z-Thomas 250 mg tablet 2023 024 [facility], [address] [place], [place], [id number], 4 12:26:06 Mucinex DM 30 mg-600 mg tablet,exte nded release 12 hr 2023 024 [facility], [address] [place] [address], [place], [id number], 4 11:00:00 Patient TargetsNo targets recorded. Patient InstructionsNo instructions recorded. Reason for Referral None Reported. Results Created Date Observation Date Name Description Value Unit Range Abnormal Flag Note LastModifiedBy Organization Detail LastModifiedTime 07/28/1907/28/2023 COVID -19, RSV, FLU A/B PCR covid-19 PCR specimen source NASAL Not Available [facility] (Centralized Electronic Ordering - All Locations) Patient Can Go To The Location Of Their Choice, [id number] 07/29/2023 04:09:28 07/28/1907/29/2023 COVID -19, RSV, FLU [...] Go To The Location Of Their Choice, [id number] 07/29/2023 04:09:28 07/28/1907/29/2023 COVID -19, RSV, FLU [...] ng. Resul t repor pilar to the [facility]. All test resul ts must be corre [...] flu (A+B) Flu negati ve Not Available [facility] ed [address] [place] [address], [id number] 07/28/2023 12:36:12 07/28/19 24 07/28/2023 rapid SARS CoV 2 Ag, QL IA, respi rator y speci men rapid SARS CoV 2 Ag, QL IA, respiratory specimen negati ve Not Available [facility] ed [address] [place] [address], [id number] 07/28/2023 12:36:04 Result Notes None recorded. Medical Equipment None Reported. Allergies Allergen ID Allergen Name Allergen Category Reaction Reaction Severity Criticality Documentation Date Start Date Code Code System Note Provider Name and Address Organization Details Recorded Time 4376 vancomyci n medicatio n Not available Not available Not available 07/28/2023 47551 RxNorm Not Available [facility] - production 4 03:35:06 4377 Vaccine product containin g only Clostridi um tetani antigen (medicina l product) medicatio n Not available Not available Not available 07/28/2023 27072 2002 SNOMED Janette Nice MD [address] [place] [address],[address], [place], [phone], [place] [employer] 4 12:27:09 Medications Name Sig Start Date Stop Date Status Note LastModified by Organization Details LastModified Time medbox status USE DIRECTED active Not Available Not Available No t Available pulse oximet airial [id number] USE FOR SHORTNESS OF BREATH OR FOR [...] Address Organization Details Last Updated DateTime 4 25856.2 64 g 97 % 97 % 172.72 cm 97.7 [degF] 17 /min 97 /min 120 mm[Hg] 90 mm[Hg] Not Available [facility] - production 4 12:21:43 Date Recorded Body temperature Heart rate Oxygen saturation Oxygen saturation in Arterial blood by Pulse oximetry Systolic blood pressure Diastolic blood pressure Provider Name and Address Organization Details Last Updated DateTime 4 98.1 [degF] 77 /min 98 % 98 % 138 mm[Hg] 94 mm[Hg] Not Available [facility] - production 4 16:07:34 Social History None recorded. Functional Status None recorded. Mental Status None recorded. Family History Nothing Reported. Medical History No medical history recorded. Gynecological HistoryNo gynecological history recorded. Obstetrics History GPAL:G 0 P 0 0 0 0 Past Encounters Encounter ID Performer Location Encounter Start Date Encounter Closed Date Diagnosis/Indication Diagnosis SNOMED-CT Code Diagnosis ICD10 Code Diagnosis Note [id number] Janette Nice MD [facility] [address] [place] [phone] 07/28/2023 12:22:19 07/31/2023 13:34:03 Upper respiratory infection 60191180 J06.9 Likely viral. Advised we will call [...] afebrile without color nasal discharge or sputum [id number] Fortino Guzman MD [facility] [address] [place] [phone] 08/08/2023 16:47:19 08/09/2023 11:01:47 Viral upper respiratory tract infection 256020589 J06.9 Acute bronchitis 5489705 2 J20.9 This 77-year-ol d male has had congestion and a cough for almost a month. Mucinex DM hasn't been effective. I ordered a Z-Thomas. He will follow-up with his PCP for any persistent symptoms. The patient agreed with this plan. [id number] Lissy San MD Main - [address] [phone] 01/24/2024 12:21:41 01/24/2024 18:25:34 Cough 09536706 R05.9 68 year old female with a [...] assessment and plan as documented by the supervisor production managing. I provided real-time medical direction for this encounter and was immediatel y available to provide additional phone-base d assistance as needed. We discussed the diagnostic uncertaint y of home visits and associated risks. We discussed the need to seek care urgently/e mergently in the setting of any new or worsening symptoms. [id number] Jeet Stovall MD [facility] [address] [place] [phone] 04/11/2024 16:07:31 04/11/2024 23:08:50 Acute exacerbation of chronic obstructive pulmonary disease 068811744 J44.1 Health Concerns Section Related Observation LastModified by Organization Detai ls LastModified Time None Recorded Concern Status LastModified by Organization Details LastModified Time None Recorded Advance Directives Directive None Recorded Payers Insurance Date Sequence Insurance Name Policy Number Policy Kimble Covered Member ID Kimble Member ID Guarantor Name 04/12/2024 1 [facility] - DOS ON OR AFTER 2022 - DUAL ELIGIBLE - NURSING HOME OPTIONS AND ONE CARE (MEDICARE REPLACEMENT/ADV ANTAGE - HMO) Maida Mitchell [id number] Maida Mitchell Notes Date Note Type Note [...] Pain with inspirationDenies: Increased work of breathing/labored with or without fever Unable to speak in full sentences without distress Shortness of breath in setting of confusion Lower extremity swelling COVID Exposure Chief Complaints: Cough, Weakness/Lethargy, Headache, Asthma, COPDPMH: COPD/AsthmaAllergie s: VancomycinComments: Instructional Materials Director verified the member's name//address and phone [...] ................... ................... ................... ................... ................... ................... ........ Perfect Binder Feeder Offbearer Note From Humza Rabago: Encountered patient conscious, alert, and ambulatory. Patient states that for over the past week she s had the stride nonproductive cough, as [...] Extremities is free of trauma and edema. [facility] contacted: orders for PCR and orthostatic vital science performed results reported to [facility]. PCR swab to be taken to [facility] laboratory. [facility] to write prescription for medication regimen at patient s pharmacy of choice. Red flags discussed with patient, patient urged to seek further medical attention. Should she develop priority symptoms, such as chest pain, syncope, fevers, acute shortness of breath or changes in vision. Patient expresses understanding and would like to remain home at this time. Perfect Binder Feeder Offbearer Allergies: Vancomycin ................... ................... ................... ................... ................... [...] during the exam Janette Nice MD [address] [facility],[address], [place], [phone], [facility] 07/29/2023 00:10:48 08/08/2023 text/html CRC Nurse Triage Notes (Demetra Romero): Reason For Request: sob Chief Complaints: Shortness of Breath/Dyspnea PMH: COPD/Asthma Allergies: Vancomycin Comments: Verified identity/ / address Call completed with shoe clerk Member is a 68 yr old female, [facility] calling for member with increased weakness and sob for over a week. Per PHYSICIAN CODER , [facility] went out on 07/28. Member was found to be Negative per PCR and mucinex sent . Per member is taking medication. Member is not on home , but has neb . Member dry cough, no wheezing when breathing Fortino Guzman MD [address] [facility],[address], [place], [phone], [place] [facility]EL[facility] 08/08/2023 17:01:14 01/24/2024 text/html HPI: Member had [...] No further information needed to process visit. Perfect Binder Feeder Offbearer POC Test Results from Yared Saenz - [facility] Rapid COVID antigen (12:49:53) COVID: - ................... ................... ................... ................... ................... ................... ................... ........ Perfect Binder Feeder Offbearer Note From Yared Saenz: [facility] dispatched for a 68 YO F [...] prescribed. PT still drinking plenty of fluids. [facility] performs rapid PCR covid test which is negative. PT denies takin any OTC medication for the pain. [facility] contacts PT [facility] who recommends fluids and rest at home. Believes this to be a viral common cold and to let it run its course. [facility] also recommends to follow up with GI doctor about any recent changes with her eating changes or pain levels. [facility] explains to pt that if she experiences any sudden onset SOB, chest pain or sudden N/v that she should contact [facility] for a higher level of care. ................... ................... ................... ................... ................... ................... ................... ........ Disposition: Fulfilled Lissy San MD [address] [place] [address],[address], [place], [phone], [facility] 01/24/2024 13:37:22 04/11/2024 text/html CRC Nurse Triage Notes (Demetra Romero): Reason For Request: PT reporting chest tightness + and some shortness of breath Chief Complaints: Shortness of Breath/Dyspnea PMH: COPD/Asthma Allergies: Vancomycin Comments: Instructional Materials Director verified the member's name//address and phone number. Member is a 68 yr old greenlandic female , a/o3 PMH >ASthma / copd [...] ................... ................... ................... ................... ................... ................... ........ Perfect Binder Feeder Offbearer Note From Ayo Tomlin: Dispatched for evaluation of a 68 y/o female, Uzbek speaking only, complaining and requesting an evaluation of shortness of breath and tightness in chest. Upon arrival to pt apartment, pt ambulatory waiting for providers at door. Pt sat on couch and assessment performed, vital signs obtained. Language line utilized due to pt speaking Uzbek only, with pt and providers able to communicate in short sentences in Anguillan. Assessment found CAOX4, airway open and patent, [...] confirmed pt allergies and pharmacy and contacted [facility]. [facility] ordered Duoneb treatment and to call back after treatment completed with further assessment. Duoneb administered with pt stating improvement in symptoms upon completion, lung sounds clear in all [place], pt work of breathing noted to be improved, pt breathing slower and with less effort. [facility] contacted with update, [facility] ordering second duoneb and 40mg prednisone, with [facility] sending prednisone prescription to pt pharmacy. Providers administered 40mg prednisone and began duoneb treatment. Red flags discussed. Providers then left the residence. All times approximate. ................... ................... ................... ................... ................... ................... ................... ........ Disposition: Pankaj Stovall MD [address] [facility],[address], [place], [address], [facility] 04/11/2024 18:52:26 OBGyn Episode No OBEpisode recorded.
--- NOTE | 2025-01-10 10:52 | A.OFFVIS_ITS ---
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 Allergies vancomycin (VANCOMYCIN) Allergy (Severe, Verified 01/10/25 09:56) REDNESS,RASH,SWELLING Tetanus & Diphtheria Tox,Adult Allergy (Severe, Uncoded 01/10/25 09:56) FEVER,DIFF.BREATHING Medication List - Last Reconciled 01/10/25 by Dina Wooten LPN acetaminophen 650 mg (2 x 325 mg) PO Q6H PRN 30 days albuterol sulfate 90 mcg/actuation 2 puffs PO Q4H PRN albuterol sulfate 2.5 mg inhalation Q4H PRN alendronate 70 mg PO QWEEK azelastine 1 spray intranasal DAILY bisacodyl 2 tabs qhs and 1 qam orally bedtime; PLEASE PUT IN PILL PACKS calcium citrate-vitamin D3 200 mg-6.25 mcg (250 unit) ([place]gar Calcium) 2 tabs PO BID calcium polycarbophil (Fiber-Lax) 625 mg PO DAILY cholecalciferol (vitamin D3) 50 mcg PO DAILY clonazepam 1 mg PO BID PRN cyanocobalamin (vitamin B-12) 1,000 mcg PO DAILY divalproex ER mg PO docusate sodium 100 mg PO BID doxycycline hyclate 100 mg PO BID 7 days famotidine 40 mg PO BEDTIME Held on 05/01/24. Instructions: Doctor's Order fluticasone propion-salmeterol 250-50 mcg/dose 1 ea inhalation BID fluticasone propion-salmeterol 250-50 mcg/dose (Wixela Inhub) 1 inh inhalation BID 30 days MDD Asthma/COPD fluticasone propionate 50 mcg/actuation 2 sprays intranasal DAILY ibuprofen 400 mg PO Q6H PRN linaclotide (Linzess) 290 mcg PO QAM 30 days loratadine 10 mg PO DAILY meclizine 25 mg PO TID PRN melatonin 5 - 10 mg PO BEDTIME PRN metoclopramide HCl (Reglan) 10 mg PO QID mirtazapine 22.5 mg PO BEDTIME multivit-iron sulf-folic acid 15 mg iron- 400 mcg (Tab-A-Aurea Multivitamin w- iron) 1 tab PO DAILY naproxen 500 mg PO BID PRN 10 days omeprazole 20 mg PO BID ondansetron 4 mg PO Q8H ropinirole 0.25 mg PO BEDTIME sumatriptan succinate mg PO walker Folding Front wheeled walker walker Folding Front wheeled walker zafirlukast 20 mg PO BID PFSH Medical History Osteoarthritis of left knee COPD exacerbation Hypoxia Gastric pain Vaginal irritation History of revision of total replacement of right knee joint Lumbar radiculopathy Osteoarthritis GERD (gastroesophageal reflux disease) Small bowel motility disorder COPD (chronic obstructive pulmonary disease) Anxiety Surgical History History of left knee replacement History of right knee joint replacement History of total right knee replacement History of ear surgery Hx of colonoscopy History of esophagogastroduodenoscopy (EGD) Family History Father Diabetes Mother Diabetes Osteoporosis HTN (hypertension) Sister Pancreas cancer Social History Household Members: None Housing: Apartment Are you a primary healthcare account manager to a significant other at home: No Do you presently have visiting nurse or other home services: No Alcohol intake: never Patient Tobacco Use Status: Former Tobacco user Tobacco use type: Cigarette e-Cigarette/Vaping Use: Never Used Second Hand Smoke Exposure: No Advance Directives Date on File: 11/28/20 service: No Current occupational status: unemployed and disabled 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 Female Reproductive History Menstrual Age of Menarche: 13 Physical Exam Vital Signs: Last Vital Signs BP 112/64 01/10/25 09:52 BMI result Body Mass Index 26.6 Results AMB Urinalysis Dipstick UR Leukocytes Last Edit by Dina Wooten LPN on 01/10/25 10:54 UR Nitrite Last Edit by Dina Wooten LPN on 01/10/25 10:54 UR Urobilinogen Last Edit by Dina Wooten LPN on 01/10/25 10:54 UR Protein Last Edit by Dina Wooten LPN on 01/10/25 10:54 UR Ph Last Edit by Dina Wooten LPN on 01/10/25 10:54 UR Blood Last Edit by Dina Wooten LPN on 01/10/25 10:54 UR Specific [place] 1.015 Last Edit by Dina Wooten LPN on 01/10/25 10:54 UR Ketone Last Edit by Dina Wooten LPN on 01/10/25 10:54 UR Bilirubin Last Edit by Dina Wooten LPN on 01/10/25 10:54 UR Glucose Last Edit by Dina Wooten LPN on 01/10/25 10:54 Assessment & Plan Assessment & Plan Orders: Orders AMB Urinalysis Dipstick Today R10.2 - Pelvic and perineal pain Coding
--- NOTE | 2025-01-10 10:55 | A.OFFVIS_ITS ---
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 First Class Services: Machinist First Class Present Machinist First Class Name: Slovak id # [id number] Information Interpreted: clinical only (Rosana) Accompanied by: Self / Same As Patient Allergies vancomycin (VANCOMYCIN) Allergy (Severe, Verified 01/10/25 10:59) REDNESS,RASH,SWELLING Tetanus & Diphtheria Tox,Adult Allergy (Severe, Uncoded 01/10/25 10:59) FEVER,DIFF.BREATHING Medication List - Last Reconciled 01/10/25 by Dina Wooten LPN acetaminophen 650 mg (2 x 325 mg) PO Q6H PRN 30 days albuterol sulfate 90 mcg/actuation 2 puffs PO Q4H PRN albuterol sulfate 2.5 mg inhalation Q4H PRN alendronate 70 mg PO QWEEK azelastine 1 spray intranasal DAILY bisacodyl 2 tabs qhs and 1 qam orally bedtime; PLEASE PUT IN PILL PACKS calcium citrate-vitamin D3 200 mg-6.25 mcg (250 unit) ([place] Calcium) 2 tabs PO BID calcium polycarbophil (Fiber-Lax) 625 mg PO DAILY cholecalciferol (vitamin D3) 50 mcg PO DAILY clonazepam 1 mg PO BID PRN cyanocobalamin (vitamin B-12) 1,000 mcg PO DAILY divalproex ER mg PO docusate sodium 100 mg PO BID doxycycline hyclate 100 mg PO BID 7 days famotidine 40 mg PO BEDTIME Held on 05/01/24. Instructions: Doctor's Order fluticasone propion-salmeterol 250-50 mcg/dose 1 ea inhalation BID fluticasone propion-salmeterol 250-50 mcg/dose (Wixela Inhub) 1 inh inhalation BID 30 days MDD Asthma/COPD fluticasone propionate 50 mcg/actuation 2 sprays intranasal DAILY ibuprofen 400 mg PO Q6H PRN linaclotide (Linzess) 290 mcg PO QAM 30 days loratadine 10 mg PO DAILY meclizine 25 mg PO TID PRN melatonin 5 - 10 mg PO BEDTIME PRN metoclopramide HCl (Reglan) 10 mg PO QID mirtazapine 22.5 mg PO BEDTIME multivit-iron sulf-folic acid 15 mg iron- 400 mcg (Tab-A-Aurea Multivitamin w- iron) 1 tab PO DAILY naproxen 500 mg PO BID PRN 10 days omeprazole 20 mg PO BID ondansetron 4 mg PO Q8H ropinirole 0.25 mg PO BEDTIME sumatriptan succinate mg PO walker Folding Front wheeled walker walker Folding Front wheeled walker zafirlukast 20 mg PO BID PFSH Medical History (Updated 01/10/25 @ 11:38 by GLENIS Baez) Left knee pain Encounter for well woman exam with routine gynecological exam Osteoarthritis of left knee COPD exacerbation Hypoxia Gastric pain Vaginal irritation History of revision of total replacement of right knee joint Lumbar radiculopathy Osteoarthritis GERD (gastroesophageal reflux disease) Small bowel motility disorder COPD (chronic obstructive pulmonary disease) Anxiety Surgical History (Updated 01/10/25 @ 11:38 by GLENIS Baez) Status post bilateral unicompartmental knee replacement Status post total knee replacement, left (~12/20/23) History of left knee replacement History of right knee joint replacement History of total right knee replacement History of ear surgery Hx of colonoscopy History of esophagogastroduodenoscopy (EGD) Family History Father Diabetes Mother Diabetes Osteoporosis HTN (hypertension) Sister Pancreas cancer Social History Household Members: None Housing: Apartment Are you a primary account executive healthcare to a significant other at home: No Do you presently have visiting nurse or other home services: No Alcohol intake: never Patient Tobacco Use Status: Former Tobacco user Tobacco use type: Cigarette e-Cigarette/Vaping Use: Never Used Second Hand Smoke Exposure: No Advance Directives Date on File: 11/28/20 service: No Current occupational status: unemployed and disabled 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 Female Reproductive History Menstrual Age of Menarche: 13 Physical Exam Vital Signs: Last Vital Signs BP 112/64 01/10/25 09:52 BMI result Body Mass Index 26.6 Results AMB Urinalysis Dipstick UR Leukocytes Last Edit by Dina Wooten LPN on 01/10/25 10:54 UR Nitrite Last Edit by Dina Wooten LPN on 01/10/25 10:54 UR Urobilinogen Last Edit by Dina Wooten LPN on 01/10/25 10:54 UR Protein Last Edit by Dina Wooten LPN on 01/10/25 10:54 UR Ph Last Edit by Dina Wooten LPN on 01/10/25 10:54 UR Blood Last Edit by Dina Wooten LPN on 01/10/25 10:54 UR Specific [place] 1.015 Last Edit by Dina Wooten LPN on 01/10/25 10:54 UR Ketone Last Edit by Dina Wooten LPN on 01/10/25 10:54 UR Bilirubin Last Edit by Dina Wooten LPN on 01/10/25 10:54 UR Glucose Last Edit by Dina Wooten LPN on 01/10/25 10:54 Results Reviewed Results Reviewed: Laboratory Last Values Specific [place] ([facility]) 1.015 01/10/25 10:49 Assessment & Plan Assessment & Plan Orders: Orders AMB Urinalysis Dipstick Today R10.2 - Pelvic and perineal pain Coding
== END 2025-01-10 10:59 | disposition home or self-care (01) ==
LOC: HO.HWS 09:37
PROVIDERS: PCP Family Medicine; Visit Provider Advanced Practice Midwife
DX: Z01.419 Encounter for gynecological examination (general) (routine) without abnormal findings (principal); R35.0 Frequency of micturition; R10.2 Pelvic and perineal pain
CPT/HCPCS: 99212; 99397; 99459

== ENCOUNTER → 2025-01-10 09:37 | Outpatient (BNVA) | payer OTHER, SELFPAY | PROVIDERS: PCP Family Medicine; Visit Provider Advanced Practice Midwife | DX: R11.0 Nausea (principal); K59.04 Chronic idiopathic constipation; K21.9 Gastro-esophageal reflux disease without esophagitis; K59.9 Functional intestinal disorder, unspecified; Z01.419 Encounter for gynecological examination (general) (routine) without abnormal findings; R35.0 Frequency of micturition | CPT/HCPCS: 81002; 99212; 99397 ==

== ENCOUNTER 2025-01-10 10:48 | Outpatient (AMB) | payer OTHER, SELFPAY ==
--- NOTE | 2025-01-10 10:58 | MHC.OFFVIS ---
Vital Signs 01/10/25 11:07 Height 5 ft 8 in Weight 175 lb BMI 26.6 BP 108/66 Blood Pressure Location Rt brachial Position Sitting Pulse 76 Pulse Source Pulse Oximeter Pulse Oximetry (%) 96 Oxygen Delivery Method Room Air Intake Visit Reasons: 6 MO F/U GERD,CIC, PARESIS r/s 11/29 Intake Note: Est pt for GERD, CIC, gastroparesis mgmt. CC; C.O. abd pain with BMs, constipation w/o any evidence of hemo, nausea, lack of appetite. 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: Yes Frame Gate Mortiser Operator Services: Frame Gate Mortiser Operator Present Frame Gate Mortiser Operator Name: [id number] + [facility] [place] Information Interpreted: clinical only Accompanied by: Self / Same As Patient Allergies vancomycin (VANCOMYCIN) Allergy (Severe, Verified 01/10/25 10:59) REDNESS,RASH,SWELLING Tetanus & Diphtheria Tox,Adult Allergy (Severe, Uncoded 01/10/25 10:59) FEVER,DIFF.BREATHING HPI HPI 6 MO F/U GERD,CIC, PARESIS r/s 11/29: Details: Assessment & Plan (1) GERD (gastroesophageal reflux disease): Code(s): K21.9 - Gastro-esophageal reflux disease without esophagitis Category: Medical (2) Chronic idiopathic constipation: Code(s): K59.04 - Chronic idiopathic constipation Category: Medical Plan [place] #Le Sanchez She is now moving her bowels well. She is not sure what changed, but a review of her meds that she brought with her shows she has all of her therapeutic regimen now - which may be the reason. She is now continuing on her Reglan, Linzess 290, Colace, bisacodyl, omeprazole 20 mg twice a day and famotidine for breakthrough. ROV 6 mos. TODAY'S VISIT [place] #Cristal Sanchez She is now continuing on her Reglan, Linzess 290, Colace, bisacodyl, omeprazole 20 mg twice a day and famotidine for breakthrough. She says that she is having more nausea recently, over just the last couple of days. Looking at the refill, it does not appear that I have refilled her Linzess 290 or her omeprazole since last May and she would have run out in November. The Linzess is not in the medication box, and with discussion it seem she is not taking it every day, either r/t forgetfulness or r/t her thinking that I am moving my bowels. It seems that this starting and stopping of the bowels is c/t her nausea as she also reports straining even when she does move her bowels. She can not ID any new medications or medication changes, sick contacts, diet changes etc preceding the change. She notes that the nausea is associated with just after a BM or with drinking coffee. I think that bowel irritability is at the root of the nausea with incomplete emptying and lack of bowel regimen playing in to the nausea reflex. She will be going to [place] to take care of her Mom who is sick and will be away for 4 weeks. I spend time on the phone with her pharmacy to confirm that she has all of her medications. ROV 6 weeks. [facility] Medical History (Updated 01/10/25 @ 11:38 by GLENIS Baez) Left knee pain Encounter for well woman exam with routine gynecological exam Osteoarthritis of left knee COPD exacerbation Hypoxia Gastric pain Vaginal irritation History of revision of total replacement of right knee joint Lumbar radiculopathy Osteoarthritis GERD (gastroesophageal reflux disease) Small bowel motility disorder COPD (chronic obstructive pulmonary disease) Anxiety Surgical History (Updated 01/10/25 @ 11:38 by GLENIS Baez) Status post bilateral unicompartmental knee replacement Status post total knee replacement, left (~12/20/23) History of left knee replacement History of right knee joint replacement History of total right knee replacement History of ear surgery Hx of colonoscopy History of esophagogastroduodenoscopy (EGD) Family History Father Diabetes Mother Diabetes Osteoporosis HTN (hypertension) Sister Pancreas cancer Social History Household Members: None Housing: Apartment Are you a primary healthcare insurance sales agent to a significant other at home: No Do you presently have visiting nurse or other home services: No Alcohol intake: never Patient Tobacco Use Status: Former Tobacco user Tobacco use type: Cigarette e-Cigarette/Vaping Use: Never Used Second Hand Smoke Exposure: No Advance Directives Date on File: 11/28/20 service: No Current occupational status: unemployed and disabled 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 Female Reproductive History Menstrual Age of Menarche: 13 Review of Systems Const Denies fatigue, Denies fever(s), Denies night sweats, Denies poor appetite and Denies weight loss Eyes Details: glasses Reports requires corrective lenses ENT Reports Normal hearing present, Denies dental pain, Denies dysphagia, Denies hearing loss, Denies mouth pain, Denies odynophagia, Denies throat swelling, Denies tongue swelling and Reports other (Dentition adequate) Card Reports no additional complaints Resp Reports no additional complaints GI Details: Denies abdominal pain, Denies melena, Denies bloating, Denies hematochezia, Reports constipation, Denies GI cramping, Denies dysphagia, Denies excessive flatus, Denies early satiety, Reports heartburn, Denies diarrhea, Reports nausea, Denies odynophagia, Denies vomiting and Denies hematemesis Skin/Breast Denies pruritus, Denies lesions, Denies rash and Denies jaundice Neuro Reports Normal hearing present and Denies Abnormal speech present Endo Denies fatigue Aller/Immun Denies throat swelling and Denies tongue swelling Physical Exam Vital Signs: BMI result Body Mass Index 26.6 Const General: cooperative, no acute distress, well developed and well groomed Nutritional Appearance: well nourished Orientation/consciousness: oriented to person, oriented to place and oriented to time Limitations: language barrier HEENT Head: Yes normocephalic and Yes atraumatic Eyes General: appearance normal, both eyes and all related structures Pupils: Equal, round and reactive pupils present Neck Neck: Yes normal visual inspection and Yes no lymphadenopathy Thyroid: Thyroid normal Resp Effort & Inspection: normal respiratory effort and able to speak in complete sentences Auscultation: clear to auscultation bilaterally Cardio Rate: regular rate Rhythm: regular rhythm Heart sounds: Normal, physiologic split S2 sound present Peripheral pulses: radial pulses present and posterior tibial pulses present GI Inspection: No distended and No Abdominal panniculus present Palpation (GI): Soft to palpation, nontender, no guarding, not rigid and No hepatosplenomegaly present Percussion: Yes normal to percussion Auscultation: normal bowel sounds Rectal Exam - Female: deferred Skin General skin exam: no rashes or lesions noted, turgor normal, skin not dry, no jaundice, No spider nevi and no striae Rashes: no rashes Nails: normal Neuro General: oriented to person, oriented to place and oriented to time Cranial nerves: Yes Equal, round and reactive pupils present and Yes Normal hearing present Speech: No Abnormal speech present Extrem General: Yes normal to inspection, No clubbing, No cyanosis and No edema Psych Appearance: grossly normal and well kempt Mental Status: mental status grossly normal Speech and movement: Normal speech and movement present Affect: normal affect Attitude: cooperative Thought process: Normal thought process present and not confabulating Thought content: Normal thought content present Insight: Limited insight present (Psych) Judgement: Limited judgement present (Psych) Results AMB Urinalysis Dipstick UR Leukocytes Last Edit by Dina Wooten LPN on 01/10/25 10:54 UR Nitrite Last Edit by Dina Wooten LPN on 01/10/25 10:54 UR Urobilinogen Last Edit by Dina Wooten LPN on 01/10/25 10:54 UR Protein Last Edit by Dina Wooten LPN on 01/10/25 10:54 UR Ph Last Edit by Dina Wooten LPN on 01/10/25 10:54 UR Blood Last Edit by Dina Wooten LPN on 01/10/25 10:54 UR Specific Eads 1.015 Last Edit by Dina Wooten LPN on 01/10/25 10:54 UR Ketone Last Edit by Dina Wooten LPN on 01/10/25 10:54 UR Bilirubin Last Edit by Dina Wooten LPN on 01/10/25 10:54 UR Glucose Last Edit by Dina Wooten LPN on 01/10/25 10:54 Assessment & Plan Assessment & Plan (1) Nausea: Code(s): R11.0 - Nausea Category: Medical (2) Chronic idiopathic constipation: Code(s): K59.04 - Chronic idiopathic constipation Category: Medical (3) GERD (gastroesophageal reflux disease): Code(s): K21.9 - Gastro-esophageal reflux disease without esophagitis Category: Medical (4) Small bowel motility disorder: Code(s): K59.9 - Functional intestinal disorder, unspecified Category: Medical Plan [place] #Cristal Sanchez She is now continuing on her Reglan, Linzess 290, Colace, bisacodyl, omeprazole 20 mg twice a day and famotidine for breakthrough. She says that she is having more nausea recently, over just the last couple of days. Looking at the refill, it does not appear that I have refilled her Linzess 290 or her omeprazole since last May and she would have run out in November. The Linzess is not in the medication box, and with discussion it seem she is not taking it every day, either r/t forgetfulness or r/t her thinking that I am moving my bowels. It seems that this starting and stopping of the bowels is c/t her nausea as she also reports straining even when she does move her bowels. She can not ID any new medications or medication changes, sick contacts, diet changes etc preceding the change. She notes that the nausea is associated with just after a BM or with drinking coffee. I think that bowel irritability is at the root of the nausea with incomplete emptying and lack of bowel regimen playing in to the nausea reflex. She will be going to [place] to take care of her Mom who is sick and will be away for 4 weeks. I spend time on the phone with her pharmacy to confirm that she has all of her medications. ROV 6 weeks. Medications: Refilled linaclotide (Linzess) PLEASE PUT IN MED BOX FORMAT 290 mcg PO QAM 30 caps 6RF 30 days K59.04 - Chronic idiopathic constipation bisacodyl 2 tabs qhs and 1 qam orally bedtime; PLEASE PUT IN PILL PACKS 60 tabs 1RF K59.04 - Chronic idiopathic constipation omeprazole 20 mg PO BID 60 caps 6RF metoclopramide HCl (Reglan) PLEASE PUT THIS IS A PILL BOX FORMAT SCHEDULED QID, second request please put this in the pill box scheduled qid 10 mg PO QID 120 tabs 6RF K59.9 - Functional intestinal disorder, unspecified docusate sodium Please put into pill pack for bid dosing 100 mg PO BID 60 caps 6RF Coding Level of Care Code Est Pt Level 4 (64582) Diagnoses Nausea R11.0 Chronic idiopathic constipation K59.04 GERD (gastroesophageal reflux disease) K21.9 Small bowel motility disorder K59.9 Time Spent (min) 33
[2025-01-10 11:07] VITALS: BP 108/66; PULSE 76; O2SAT 96; BMI 26.6
== END 2025-01-10 11:36 | disposition home or self-care (01) ==
LOC: HO.HGI 10:49
PROVIDERS: PCP Family Medicine; Visit Provider Nurse Practitioner
DX: R11.0 Nausea (principal); K59.04 Chronic idiopathic constipation; K21.9 Gastro-esophageal reflux disease without esophagitis; K59.9 Functional intestinal disorder, unspecified
CPT/HCPCS: 99214

== ENCOUNTER 2025-03-18 11:51 | Outpatient (REF) | payer OTHER, SELFPAY ==
--- OUTSIDE RECORDS SUMMARY | 2025-03-18 11:30 | XMS_ITS | Encounter Summary ---
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 Details Date Type Department Care Team (Latest Contact Info) Description 03/18/2025 11:30 AM EDT Clinical Support [facility] [address] [place] [address] Mai Bishop RN Long-term current use of benzodiazepine (Primary Dx) Social History Tobacco Use Types Packs/Day Years Used Date Smoking Tobacco: Never Passive Smoke Exposure: Never Smokeless Tobacco: Never Alcohol Use Standard Drinks/Week Comments Not Currently 0 (1 standard drink = 0.6 oz pur e alcohol) Depression Answer Date Recorded Patient Health Questionnaire-9 Score 16 01/08/2025 Patient Health Questionnaire-9 Score 16 01/08/2025 Last PHQ-9: Questionnaire Data Not on file 0 01/08/2025 Housing Stability Answer Date Recorded What is your housing situation today? I have erika armas 01/08/[address] you li ve. Do you have problems with any of the following? None of the above 01/08/2025 Food Insecurity Answer Date Recorded Within the past 12 months, y ou worried that your food would run out before you got money to buy more: Never True 01/08/2025 Within the past 12 months,th e food you bought just didn't last and you didn't have enough money to get more: Never True 07/2024 Transportation Answer Date Recorded In the past 12 months, has l ack of transportation kept you from medical appts, meetings, work or from getting things needed for daily living? No 01/08/2025 Utilities Answer Date Recorded In the past 12 months, has t he electric, gas, oil or water company threatened to shut off services in your home? No 01/08/2025 Depression Answer Date Recorded Patient Health Questionnaire-2 Score 5 01/08/2025 Internet Access Answer Date Recorded Internet Access Q1 Yes 01/08/2025 Internet Access Q2 Not on file 01/08/2025 Comments Unknown Sex and Gender Information Value [...] Author Feeling nervous, anxious, or on edge 2 02/2025 11:57 AM EDT Mai Bishop RN Not being able to stop or co ntrol worrying 2 03/18/2025 11:57 AM EDT Mai Bishop R N Worrying too much about diff erent things 2 03/18/2025 11:57 AM Mai Carrasco R N Trouble relaxing 2 03/18/2025 11:57 AM Mai Carrasco RN Being so restless that it is hard to sit still 2 03/18/2025 11:57 AM Mai Carrasco R N Becoming easily annoyed or irritable 2 02/2025 11:57 AM Mai Carrasco RN Feeling afraid as if somethi ng awful might happen 3 03/18/2025 11:57 AM Mai Carrasco R N PREET-7 Total Score 15 03/18/2025 11:57 AM Mai Carrasco RN documented as of this encounter Progress Notes * Mai Bishop RN - 03/18/2025 11:30 AM EDT SUBJECTIVE: Maida Mitchell is a 69 y.o. 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 The patient last took Clonazepam (Klonopin) on: 03/08/2025 Medication effective: Yes Sleep habits: ok, sleeps until 3am and then she's up Therapist: Yes Pt shared she just returned from [place], her mother recently . OBJECTIVE: MEDICAL SUPPORT ASSISTANT checked: 03/18/2025 Pill count completed for Clonazepam (Klonopin), count today is 50 , anticipated count should be 35,this is as expected. 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 Tier: 2 Current Medications[1] Smoking status: Denies ETOH use: Denies Illicit substances: Denies Marijuana use: No Lab Results Component Value Date POCTHC Negative 03/18/2025 POCCOCAINEUR Negative 03/18/2025 POCOPIATEUR Negative 03/18/2025 DOAUR Negative 03/18/2025 POCAMPHETAMI Negative 03/18/2025 POCBENZODIUR Negative 03/18/2025 POCBARBSCRN Negative 03/18/2025 POCMETHADOUR Negative 03/18/2025 POCBUPSCRN Negative 03/18/2025 POCTCAUR Negative 03/18/2025 POCMDMAUR Negative 03/18/2025 POCOXYCODONE Negative 03/18/2025 POCPHENCYCUR Negative 03/18/2025 PROPOXUR Negative 03/18/2025 FENTANYLURIN Negative 03/18/2025 Reviewed UTOX results Neg BZO. Explained I would send urine out for BZO confirmation and will call her if the results are abnormal. ASSESSMENT: Encounter Diagnosis Name Primary? Long-term current use of benzodiazepine Yes PLAN: Information on acupuncture given: Yes Will update PCP with PREET scoring and UTOX results. Controlled substance agreement reviewed and signed. A copy was given to the patient. Maida Rangel continue taking medications as prescribed and has verbalized understanding of care plan. Future Appointments Date Time Provider Department Center 03/19/2025 11:00 AM Kristian Mendoza DDS ADLAdriana DENT [facility] 06/17/2025 10:00 AM Mai Bishop RN MEDICINE [facility] 06/20/2025 1:00 PM Sujey Cerda KAYLIN DENT [facility] Mai Bishop RN [1] Current Outpatient Medications: clonazePAM (KlonoPIN) 1 MG tablet, TAKE 1 TABLET BY MOUTH TWICE DAILY FOR 28 DAYS, Disp: 56 tablet,Rfl: 0 acetaminophen (Tylenol 8 Hour) 650 MG ER tablet, Take 1 tablet (650 mg) by mouth every 8 (eight) hours if needed for mild pain. Do not crush, chew, or split., Disp: 60 tablet, Rfl: 3 albuterol (2.5 MG/3ML) 0.083% nebulizer solution, INHALE 1 AMPULE USING A NEBULIZER EVERY 4 HOURS NEEDED FOR WHEEZING OR SHORTNESS OF BREATH, Disp: 90 mL, Rfl: 1 albuterol (Ventolin HFA) 108 (90 Base) MCG/ACT inhaler, INHALE 2 PUFFS BY MOUTH EVERY 4 HOURS NEEDED FOR WHEEZING OR SHORTNESS OF BREATH, Disp: 18 g, Rfl: 1 alendronate (Fosamax) 70 MG tablet, take 1 tablet by mouth once a week with 6 to 8 oz of water 30 min before first food of day. do not lie down for 30 minutes, Disp: 4 tablet, Rfl: 5 Azelastine HCl 137 MCG/SPRAY solution, INHALE 1 SPRAY IN EACH NOSTRIL TWICE DAILY, Disp: 30 mL, Rfl: 3 baclofen (Lioresal) 10 MG tablet, TAKE 1/2 TABLET BY MOUTH THREE TIMES DAILY NEEDED FOR MUSCLE SPASMS, Disp: 30 tablet, Rfl: 1 Bisacodyl EC 5 MG EC tablet, , Disp: , Rfl: Calcium Citrate-Vitamin D 200-6.25 MG-MCG tablet, TAKE 2 TABLETS BY MOUTH TWICE DAILY IN THE MORNING AND EVENING, Disp: 120 tablet, Rfl: 11 cholecalciferol VITAMIN D (Vitamin D-3) 50 MCG (1999 UT) tablet, TAKE 1 TABLET BY MOUTH EVERY MORNING, Disp: 90 tablet, Rfl: 3 cyanocobalamin (Vitamin B-12) 1000 MCG tablet, TAKE 1 TABLET BY MOUTH EVERY MORNING, Disp: 90 tablet, Rfl: 3 Diclofenac Sodium 1 % gel, Apply 2 g topically if needed in the morning, at noon, in the evening, and at bedtime (pain)., Disp: 150 g, Rfl: 3 divalproex (Depakote ER) 250 MG 24 hr tablet, TAKE 1 TABLET BY MOUTH TWICE DAILY IN THE MORNING ANDIN THE EVENING, Disp: 60 tablet, Rfl: 3 docusate sodium (Colace) 100 MG capsule, , Disp: , Rfl: famotidine (Pepcid) 40 MG tablet, Take 1 tablet (40 mg) by mouth at bedtime., Disp: 30 tablet, Rfl:11 Fiber-Lax 625 MG tablet, TAKE 1 TABLET BY MOUTH TWICE DAILY IN THE MORNING AND IN THE EVENING, Disp: 60 tablet, Rfl: 11 fluticasone (Flonase) 50 MCG/ACT nasal spray, INSTILL 2 SPRAYS IN EACH NOSTRIL ONCE DAILY, Disp: 48g, Rfl: 0 Fluticasone-Salmeterol 250-50 MCG/ACT aerosol powder , INHALE 1 PUFF BY MOUTH TWICE DAILY, RINSE MOUTH AFTER USING., Disp: 60 each, Rfl: 3 ibuprofen 400 MG tablet, Take 1 tablet (400 mg) by mouth every 6 (six) hours if needed for moderatepain or fever for up to 30 doses., Disp: 30 tablet, Rfl: 0 Linzess 290 MCG capsule, , Disp: , Rfl: loratadine (Claritin) 10 MG tablet, TAKE 1 TABLET BY MOUTH EVERY MORNING, Disp: 90 tablet, Rfl: 1 melatonin 5 MG tablet, TAKE 1 TO 2 TABLETS BY MOUTH EVERY DAY AT BEDTIME NEEDED, Disp: 60 tablet, Rfl: 3 metoclopramide (Reglan) 10 MG tablet, Take 10 mg by mouth 4 times daily., Disp: , Rfl: mirtazapine (Remeron) 15 MG tablet, Take 15 mg by mouth at bedtime., Disp: , Rfl: Misc. Devices (Pulse Oximeter Deluxe) misc, 1 each if needed (for SOB or severe cough). Si tiene unnivel abajo de 90%, llama la clinica. Si tiene corta respiracion o dificuldad de respirar, vaya a un cuido medico., Disp: 1 each, Rfl: 0 Multiple Vitamins-Iron (Tab-A-Aurea/Iron) tablet, TAKE 1 TABLET BY MOUTH EVERY MORNING WITH FOOD, Disp: 90 tablet, Rfl: 3 omeprazole (PriLOSEC) [address] capsule, TAKE 1 CAPSULE BY MOUTH TWICE DAILY IN THE MORNING AND IN THE EVENING BEFORE MEALS, Disp: 60 capsule, Rfl: 11 ondansetron ODT (Zofran-ODT) 4 MG disintegrating tablet, Take 1 tablet by mouth if needed each day for nausea., Disp: , Rfl: predniSONE (Deltasone) 10 MG tablet, Take 2 tablets PO daily x 3 days then 1 tablet PO daily x 3 days, Disp: 9 tablet, Rfl: 0 pseudoephedrine (Sudafed) 30 MG tablet, Take 1 tablet (30 mg) by mouth every 6 (six) hours if needed for congestion for up to 10 days., Disp: 30 tablet, Rfl: 0 rOPINIRole (Requip) 0.25 MG tablet, TAKE 1 TABLET BY MOUTH AT BEDTIME (1-3 HOURS BEFORE BEDTIME), Disp: 30 tablet, Rfl: 11 SUMAtriptan (Imitrex) 50 MG tablet, Take 1 tablet by mouth if needed each day for migraine., Disp: , Rfl: zafirlukast (Accolate) 20 MG tablet, TAKE 1 TABLET BY MOUTH TWICE DAILY IN THE MORNING AND IN THE EVENING AFTER MEALS, Disp: 180 tablet, Rfl: 1 Current Facility-Administered Medications: albuterol (2.5 MG/3ML) 0.083% nebulizer solution 2.5 mg, 2.5 mg, Nebulization, Once, Amelia Montalvo, documented in this encounter Plan of Treatment Upcoming Encounters Date Type Department Care Team (Late st Contact Info) Description 03/19/2025 11:00 AM EDT Office Visit [facility] [address] [place] [address] Kristian Mendoza DDS [address] [place] [address] 06/17/2025 10:00 AM EST Clinical Support [facility] [address] [place] [address] Mai Bishop RN 06/20/2025 1:00 PM EST Office Visit [facility] [address] [facility] [place] [address] Sujey eCrda Scheduled Orders Name Type Priority Associated Diagnoses Orde r Schedule Drug Monitoring, Benzodiazepines, Quantitative, Urine Lab Routine Long-term current use of benzodiazepine Ordered: 03/18/2025 documented as of this encounter Procedures Procedure Name Priority Date/Time Associated Diagnosis Comments POCT OSMIN-14 URINE DRUG SCREEN Routine 03/18/2025 12:00 PM EDT Long-term current use of benzodiazepine documented in this encounter Results * (ABNORMAL) POCT OSMIN-14 Urine Drug Screen (03/18/2025 12:00 PM EDT) THC Negative Negative Cocaine Screen, Urine Negative Negative Opiate Screen, Urine Negative Negative Methamphetamine Screen Urine Negative Negative Amphetamine Screen, Urine Negative Negative Benzodiazepines Screen, Urine Negative Negative Barbiturate Screen, Urine Negative Negative Methadone Screen, Urine Negative Negative Buprenophine Screen, Urine Negative Negative TCA, Urine Negative Negative MDMA Urine Negative Negative ng/mL Oxycodone Screen, Urine Negative Negative Phencyclidine (PCP), Urine Negative Negative Propoxyphene, Urine Negative Negative Fentanyl, Urine Negative Negative Urine Urine specimen obtained by clean catch procedure / Unknown 03/18/2025 12:00 PM EDT Narrative Mai Bishop, JAMAAL - 03/18/2025 12:00 PM EDT UTOX cup Lot#[id number] Exp. 04/16/26 Internal Pass Control Amelia Montalvo DO POINT OF CARE TEST ENTER/MAKAYLA T ORDERABLES Final Result documented in this encounter Visit Diagnoses Diagnosis Long-term current use of benzodiazepine- Primary documented in this encounter Additional Health Concerns Assessment Noted Time PHQ-9 Depression Total Score: 16 01/08/2 025 12:09 PM EDT documented as of this encounter Care Teams Singing Telegram Performer Relationship Specialty Start Date End Date Amelia Montalvo DO [address] [place] [address] PCP - General Family Medicine 06/23/12 documented as of this encounter
--- OUTSIDE RECORDS SUMMARY | 2025-03-18 14:26 | XMS_ITS | Encounter Summary ---
Author Organization [employer] Address [address] [place] [address] Care Team Providers Care Dry Pan Feeder Name Role Phone KatiaAmelia Primary Care Provider [phone] Encounter Details Date Type Department Care Team (Late st Contact Info) Description 09/13/2022 Orders Only [facility] [address] [place] [address] Amelia Kemp LPN Social History Tobacco Use [...] Description 03/19/2025 11:00 AM EDT Office Visit [facility] AD[facility] [address] [place] [address] Kristian Mendoza DDS [address] [place] [address] 06/17/2025 10:00 AM EST Clinical Support [facility] MED[facility] [address] [place] [id number] Mai Bishop, RN 06/20/2025 1:00 PM EST Office Visit [facility] [address] [place] [address] Sujey Cerda documented as of this encounter Visit Diagnoses Not on filedocumented in this encounter Care Teams Dry Pan Feeder Relationship Specialty Start Date End Date Amelia Montalvo DO [address] [place] [address] PCP - General Family Medicine 06/23/12 documented as of this encounter
--- OUTSIDE RECORDS SUMMARY | 2025-03-18 14:26 | XMS_ITS | Patient Health Record ---
Author Organization [facility] Address [address] [place] [address] Care Team Providers Care Stars Coordinator Name Role Phone Clinton De Leon Jr [phone] Reason For Referral No Information Plan Of Treatment No Information
--- OUTSIDE RECORDS SUMMARY | 2025-03-18 14:26 | XMS_ITS | Encounter Summary ---
Author Organization [employer] Address 75 [facility] 7t [place] [address] Care Team Providers Care Machine Castings Plasterer Name Role Phone Amelia Montalvo Primary Care Provider + [phone] Reason for Visit * Reason Comments Med Refill Encounter Details Date Type Department Care Team ([facility] st Contact Info) Description 10/25/2023 Refill [facility] [address] [place] [address] Iram Ascencio FNP Social History Tobacco Use [...] Description 03/19/2025 11:00 AM EDT Office Visit [facility] ADULT DENTAL [address] [place] [address] Kristian Mendoza DDS [address] [place] [address] 06/17/2025 10:00 AM EST Clinical Support [facility] MEDICINE [address] [place] [address] Mai Bishop, JAMAAL 06/20/2025 1:00 PM EST Office Visit [facility] ADULT DENTAL [address] [place] [address] Sujey Cerda documented as of this encounter Visit Diagnoses Not on filedocumented in this encounter Care Teams Machine Castings Plasterer Relationship Specialty Start Date End Date Amelia Montalvo DO [address] [place] [address] PCP - General Family Medicine 06/23/12 documented as of this encounter
--- OUTSIDE RECORDS SUMMARY | 2025-03-18 14:26 | XMS_ITS | Encounter Summary ---
Author Organization [employer] Address 75 [facility] 7t h Floor [place] [id number] Care Team Providers Care Mail Distribution Clerk Name Role Phone Sintia Montalvonifer Primary Care Provider [phone] Encounter Details Date Type Department Care Team (Late Contact Info) Description 11/04/2022 Abstract [facility] MEDICINE [address] [place] [address] Amelia Montalvo DO [address] [place] [address] Social History Tobacco Use Types Packs/Day Years [...] Description 03/19/2025 11:00 AM EDT Office Visit [facility] ADULT DENTAL [address] [place] [address] Kristian Mendoza DDS [address] [place] [address] 06/17/2025 10:00 AM EST Clinical Support [facility] MEDICINE [address] [place] [address] Mai Bishop RN 06/20/2025 1:00 PM EST Office Visit [facility] ADULT DENTAL [address] [place] [address] Sujey Cerda documented as of this encounter Visit Diagnoses Not on filedocumented in this encounter Care Teams Mail Distribution Clerk Relationship Specialty Start Date End Date Amelia Montalvo DO [address] [place] [address] PCP - General Family Medicine 06/23/12 documented as of this encounter
--- OUTSIDE RECORDS SUMMARY | 2025-03-18 14:26 | XMS_ITS | Encounter Summary ---
Author Organization [employer] [facility] Address [address] [facility] [address]t [place] [address] Care Team Providers Care Compliance Engineer Products Name Role Phone Amelia Montalvo DO Primary Care Provider [phone] Encounter Details Date Type Department Care Team (Latest Contact Info) Description 01/15/2021 Abstract [facility] CONVERSIONS Dental, Provider, DDS Social History [...] Upcoming Encounters Date Type Department Care Team ( st Contact Info) Description 03/19/2025 11:00 AM EDT Office Visit [facility] ADULT DENTAL [address] [place] [address] Kristian Mendoza DDS [address] [place] [address] 06/17/2025 10:00 AM EST Clinical Support [facility] MEDICINE [address] [place] [address] Mai Bishop, JAMAAL 06/20/2025 1:00 PM EST Office Visit [facility] ADULT DENTAL [address] [place] [address] Sujey Cerda documented as of this encounter Visit Diagnoses Not on filedocumented in this encounter Care Teams Compliance Engineer Products Relationship Specialty Start Date End Date Amelia Montalvo DO [address] [place] [address] PCP - General Family Medicine 06/23/12 documented as of this encounter
--- OUTSIDE RECORDS SUMMARY | 2025-03-18 14:26 | XMS_ITS | Encounter Summary ---
Author Organization [employer] Address [address] [facility] 7t [place] [address] Care Team Providers Care Scientologist Name Role Phone Amelia Montalvo DO Primary Care Provider [phone] Reason for Visit * Reason Comments Med Refill Encounter Details Date Type Department Care Team ([facility] st Contact Info) Description 03/14/2024 Refill [facility] MEDICINE [address] [place] [address] Amelia Montalvo DO [address] [place] [address] Other specified anxiety disorders Social History Tobacco [...] Description 03/19/2025 11:00 AM EDT Office Visit [facility] ADULT DENTAL [address] [place] [address] Kristian Mendoza DDS [address] [place] [address] 06/17/2025 10:00 AM EST Clinical Support [facility] MEDICINE [address] [place] [address] Mai Bishop, RN 06/20/2025 1:00 PM EST Office Visit [facility] ADULT DENTAL [address] [place] [address] Sujey Cerda documented as of this encounter Visit Diagnoses Diagnosis Other specified anxiety disorders documented in this encounter Additional Health Concerns Assessment Noted Time PHQ-9 Depression Total Score: 18 024 2:12 PM EDT documented as of this encounter Care Teams Scientologist Relationship Specialty Start Date End Date Amelia Montalvo DO [address] [place] [address] PCP - General Family Medicine 06/23/12 documented as of this encounter
--- OUTSIDE RECORDS SUMMARY | 2025-03-18 14:26 | XMS_ITS | Encounter Summary ---
Author Organization [employer] Address 75 [facility] 7t [place] [address] Care Team Providers Care Color Grinder Name Role Phone Amelia Montalvo DO Primary Care Provider +[phone] Reason for Visit * Reason Comments Med Refill Encounter Details Date Type Department Care Team ([facility] st Contact Info) Description 12/04/2024 Refill [facility] [address] [place] [address] Amelia Montalvo DO [address] [place], [place] [phone] Other specified anxiety disorders Social History Tobacco [...] Feeling nervous, anxious, or on edge 3 11/09 1:31 PM EDT Mai Bishop RN Not being able to stop or co ntrol worrying 1 12/06/2024 1:31 PM EDT Mai Bishop RN Worrying too much about diff erent things 3 12/06/2024 1:31 PM EDT Mai Bishop RN Trouble relaxing 3 12/06/2024 1:31 PM EDT Mai Bridges ae, RN Being so restless that it is hard to sit still 2 12/06/2024 1:31 PM FARRAHT Mai Bishop RN Becoming easily annoyed or irritable 0 11/09 1:31 PM EDT Mai Bishop RN Feeling afraid as if somethi ng awful might happen 3 12/06/2024 1:31 PM EDT Mai Bishop RN PREET-7 Total Score 15 12/06/2024 1:31 PM EDT Mai Bishop RN documented as of this encounter Plan of Treatment Upcoming Encounters Date Type Department Care Team (Late st Contact Info) Description 03/19/2025 11:00 AM EDT Office Visit [facility] ADULT DENTAL [address] [place] [address] Kristian Mendoza DDS [address] [place] [address] 06/17/2025 10:00 AM EST Clinical Support [facility] MEDICINE [address] [place] [address] Mai Bishop RN 06/20/2025 1:00 PM EST Office Visit [facility] ADULT DENTAL [address] [place] [address] Sujey Cerda documented as of this encounter Visit Diagnoses Diagnosis Other specified anxiety disorders documented in this encounter Additional Health Concerns Assessment Noted Time PHQ-9 Depression Total Score: 18 024 2:12 PM EDT documented as of this encounter Care Teams Color Grinder Relationship Specialty Start Date End Date Amelia Montalvo DO [address] [place] [address] PCP - General Family Medicine 06/23/12 documented as of this encounter
--- OUTSIDE RECORDS SUMMARY | 2025-03-18 14:26 | XMS_ITS | Encounter Summary ---
Author Organization [employer] [facility] Address 75 [facility] 7t [place] [address] Care Team Providers Care Deputy Chief Magistrate Name Role Phone Amelia Montalvo DO Primary Care Provider [phone] Encounter Details Date Type Department Care Team (Late st Contact Info) Description 10/21/2023 Orders Only [facility] MEDICINE [address] [place] [address] Provider, MD Santos Social History Tobacco Use [...] Description 03/19/2025 11:00 AM EDT Office Visit [facility] ADULT DENTAL [address] [place] [address] Kristian Mendoza DDS [address] [place] [address] 06/17/2025 10:00 AM EST Clinical Support [facility] MEDICINE [address] [place] [address] Mai Bishop RN 06/20/2025 1:00 PM EST Office Visit [facility] ADULT DENTAL [address] [place] [address] Sujey Cerda documented as of this encounter Procedures Procedure Name Priority Date/Time Associated Diagnosis Comments COLONOSCOPY Routine 05/31/2019 10:01 AM EST documented in this encounter Results * Hm Colonoscopy (05/31/2019 10:01 AM EST) us Historical Provider HEALTH MAINTENANCE Final Result documented in this encounter Visit Diagnoses Not on filedocumented in this encounter Care Teams Deputy Chief Magistrate Relationship Specialty Start Date End Date Amelia Montalvo DO [address] [place] [address] PCP - General Family Medicine 06/23/12 documented as of this encounter
--- OUTSIDE RECORDS SUMMARY | 2025-03-18 14:26 | XMS_ITS | Clinical Summary ---
Author Organization [facility] Address [address] [facility] [address] [place] [address] Phone Care Team Providers Care Station Examiner Name Role Phone Unavailable Primary Care Provider Unavailabl e Social History Tobacco Use Types Packs/Day Years Used Date Smoking Tobacco: Never Assessed Education Answer Date Recorded Are you interested in more education? Not on daryl e 12/20/2023 Are you concerned about learning? Not on file 12/20/2023 No 12/20/2023 No 12/20/2023 Digital Access Answer Date Recorded No 12/20/2023 No 12/20/2023 Reliable internet access at home? Not on file 12/20/2023 Device with a working camera? Not on file Comments Unknown Sex and Gender Information Value Date Recorded Sex Assigned at Not on file Legal Sex Female 8:20 AM EDT Gender Identity Not on file Sexual Orientation Not on file Plan of Treatment Not on file Medical Devices Not on file Insurance [facility] MEDICARE REPLACEMENT [place] [id number] O MEDICARE REPLACEMENT MEDICARE REPLACEMENT MEDICARE REPLACEMENT MEDICARE REPLACEMENT [facility] MEDICARE REPLACEMENT Additional Source Comments The information contained in this document represents components of the legal health record. It is not the complete legal health record.[facility]
--- OUTSIDE RECORDS SUMMARY | 2025-03-18 14:26 | XMS_ITS | Encounter Summary ---
Author Organization [employer] [facility] Address [address] [facility] 7t [place] [address] Care Team Providers Care Slusher Operator Name Role Phone Amelia Montalvo DO Primary Care Provider [phone] Encounter Details Date Type Department Care Team (Latest Contact Info) Description 03/29/2022 Abstract [facility] CONVERSIONS Dental, Provider, DDS Social [...] Description 03/19/2025 11:00 AM EDT Office Visit [facility] ADULT DENTAL [address] [place] [address] Kristian Mendoza DDS [address] [place] [address] 06/17/2025 10:00 AM EST Clinical Support [facility] MEDICINE [address] [place] [address] Mai Bishop, JAMAAL 06/20/2025 1:00 PM EST Office Visit [facility] ADULT DENTAL [address] [place] [address] Sujey Cerda documented as of this encounter Visit Diagnoses Not on filedocumented in this encounter Care Teams Slusher Operator Relationship Specialty Start Date End Date Amelia Montalvo DO [address] [place] [address] PCP - General Family Medicine 06/23/12 documented as of this encounter
--- OUTSIDE RECORDS SUMMARY | 2025-03-18 14:26 | XMS_ITS | Encounter Summary ---
Author Organization [employer] [facility] Address [address] [facility] 7t [place] [address] Care Team Providers Care Sugar Boiler Name Role Phone Amelia Montalvo DO Primary Care Provider +[phone] Encounter Details Date Type Department Care Team (Latest Contact Info) Description 06/04/2020 Abstract [facility] CONVERSIONS Dental, Provider, DDS Social History [...] 03/19/2025 11:00 AM EDT Office Visit [facility] ADULT DENTAL [address] [place] [address] Kristian Mendoza DDS [address] [place] [address] 06/17/2025 10:00 AM EST Clinical Support [facility] MEDICINE [address] [place] [address] Mai Bishop, JAMAAL 06/20/2025 1:00 PM EST Office Visit [facility] ADULT DENTAL [address] [place] [address] Sujey Cerda documented as of this encounter Visit Diagnoses Not on filedocumented in this encounter Care Teams Sugar Boiler Relationship Specialty Start Date End Date Amelia Montalvo DO [address] [place] [address] PCP - General Family Medicine 06/23/12 documented as of this encounter
--- OUTSIDE RECORDS SUMMARY | 2025-03-18 14:26 | XMS_ITS | Encounter Summary ---
Author Organization [employer] Address [address] [facility] 7 [place] [address] Care Team Providers Care Financial Services Sales Representative Name Role Phone Amelia Montalvo DO Primary Care Provider [phone] Reason for Visit * Reason Onset Date Comments Pre-op clearance notes 08/26/2023 Encounter Details Date Type Department Care Team (Late st Contact Info) Description 08/26/2023 Telephone [facility] MEDICINE [address] [place] [address] Amelia Montalvo DO [address] [place] [address] Pre-op clearance notes Social History Tobacco Use [...] 08/15 and it can be faxed to [phone] documented in this encounter Plan of Treatment Upcoming Encounters Date Type Department Care Team (Late st Contact Info) Description 03/19/2025 11:00 AM EDT Office Visit [facility] ADULT DENTAL [address] [place] [address] Kristian Mendoza DDS [address] [place] [address] 06/17/2025 10:00 AM EST Clinical Support [facility] MEDICINE [address] [place] [address] Mai Bishop, JAMAAL 06/20/2025 1:00 PM EST Office Visit [facility] ADULT DENTAL [address] [place] [address] Sujey Cerda documented as of this encounter Visit Diagnoses Not on filedocumented in this encounter Care Teams Financial Services Sales Representative Relationship Specialty Start Date End Date Amelia Montalvo DO [address] [place] [address] PCP - General Family Medicine 06/23/12 documented as of this encounter
--- OUTSIDE RECORDS SUMMARY | 2025-03-18 14:26 | XMS_ITS | Encounter Summary ---
Author Organization [employer] [facility] Address [address] [facility] 7t [place] [address] Care Team Providers Care Pet Care Assistant Name Role Phone Amelia Montalvo DO Primary Care Provider [phone] Encounter Details Date Type Department Care Team (Latest Contact Info) Description 08/10/2018 Abstract [facility] CONVERSIONS Dental, Provider, DDS Social History Tobacco [...] Description 03/19/2025 11:00 AM EDT Office Visit [facility] ADULT DENTAL [address] [place] [address] Kristian Mendoza DDS [address] [place] [address] 06/17/2025 10:00 AM EST Clinical Support [facility] MEDICINE [address] [place] [address] Mai Bishop, JAMAAL 06/20/2025 1:00 PM EST Office Visit [facility] ADULT DENTAL [address] [place] [address] Sujey Cerda documented as of this encounter Visit Diagnoses Not on filedocumented in this encounter Care Teams Pet Care Assistant Relationship Specialty Start Date End Date Amelia Montalvo DO [address] [place] [address] PCP - General Family Medicine 06/23/12 documented as of this encounter
--- OUTSIDE RECORDS SUMMARY | 2025-03-18 14:26 | XMS_ITS | Encounter Summary ---
Author Organization [employer] Address 75 [facility] 7t [place] [address] Care Team Providers Care Conductor Orchestra Name Role Phone Amelia Montalvo DO Primary Care Provider +[phone] Reason for Visit * Reason Comments Med Refill Encounter Details Date Type Department Care Team ([facility] st Contact Info) Description 11/07/2023 Refill [facility] MEDICINE [address] [place] [address] Amelia Montalvo DO [address] [place] [address] Other specified anxiety disorders Social History Tobacco [...] Description 03/19/2025 11:00 AM EDT Office Visit [facility] ADULT DENTAL [address] [place] [address] Kristian Mendoza DDS [address] [place] [address] 06/17/2025 10:00 AM EST Clinical Support [facility] MEDICINE [address] [place] [address] Mai Bishop RN 06/20/2025 1:00 PM EST Office Visit [facility] ADULT DENTAL [address] [place] [address] Sujey Cerda documented as of this encounter Visit Diagnoses Diagnosis Other specified anxiety disorders documented in this encounter Care Teams Conductor Orchestra Relationship Specialty Start Date End Date Amelia Montalvo DO [address] [place] [address] PCP - General Family Medicine 06/23/12 documented as of this encounter
--- OUTSIDE RECORDS SUMMARY | 2025-03-18 14:26 | XMS_ITS | Clinical Summary ---
Author Organization [employer] Address [address] [place] [address] 7[address] [place] [address] Care Team Providers Care Daycare Provider Name Role Phone Amelia Montalvo DO Primary Care Provider + [phone] Allergies Active Allergy Reactions Criticality Noted Date [...] FOR MUSCLE SPASMS 30 tablet 1 Active Multiple Vitamins-Iron (Tab-A-Aurea/Iron) tablet TAKE 1 TABLET BY MOUTH EVERY MORNING WITH FOOD 90 tablet 3 Active Fiber-Lax 625 MG tablet TAKE 1 TABLET BY MOUTH TWICE DAILY IN THE MORNING AND IN THE EVENING 60 tablet 11 Active rOPINIRole (Requip) 0.25 MG tablet TAKE 1 TABLET BY MOUTH AT BEDTIME (1-3 HOURS BEFORE BEDTIME) 30 tablet 11 Active Fluticasone-Salme terol 250-50 MCG/ACT aerosol powder INHALE 1 PUFF BY MOUTH TWICE DAILY, RINSE MOUTH AFTER USING. 60 each 3 Active loratadine (Claritin) 10 MG tablet TAKE 1 TABLET BY MOUTH EVERY MORNING 90 tablet 1 Active zafirlukast (Accolate) 20 MG tablet TAKE 1 TABLET BY MOUTH TWICE DAILY IN THE MORNING AND IN THE EVENING AFTER MEALS 180 tablet 1 Active acetaminophen (Tylenol 8 Hour) 650 MG [...] to 10 days. 30 tablet 025 Active Calcium Citrate-Vitamin D 200-6.25 MG-MCG tablet TAKE 2 TABLETS BY MOUTH TWICE DAILY IN THE MORNING AND EVENING 120 tablet 11 025 Active omeprazole (PriLOSEC) [address] capsule TAKE 1 CAPSULE BY MOUTH TWICE DAILY IN THE MORNING AND IN THE EVENING BEFORE MEALS 60 capsule 11 025 Active cholecalciferol VITAMIN D (Vitamin D-3) 50 MCG (2000 UT) tablet TAKE 1 TABLET BY MOUTH EVERY MORNING 90 tablet 3 025 Active cyanocobalamin (Vitamin B-12) 1000 MCG tabletIndications :Vitamin B12 deficiency TAKE 1 TABLET BY MOUTH EVERY MORNING 90 tablet 3 025 Active alendronate (Fosamax) 70 MG tablet take 1 tablet by mouth once a week with 6 to 8 oz of water 30 min before first food of day. do not lie down for 30 minutes 4 tablet 5 025 Active Azelastine HCl 137 MCG/SPRAY solution INHALE 1 SPRAY IN EACH NOSTRIL TWICE DAILY 30 mL 3 025 Active albuterol (Ventolin HFA) 108 (90 Base) MCG/ACT inhalerIndication s:Mild intermittent asthma with acute exacerbation INHALE 2 PUFFS BY MOUTH EVERY 4 HOURS NEEDED FOR WHEEZING OR SHORTNESS OF BREATH 18 g 1 025 Active melatonin 5 MG tablet TAKE 1 TO 2 TABLETS BY MOUTH EVERY DAY AT BEDTIME NEEDED 60 tablet 3 025 Active divalproex (Depakote ER) 250 MG 24 hr tabletIndications :Chronic migraine without aura without status migrainosus, not intractable TAKE 1 TABLET BY MOUTH TWICE DAILY IN THE MORNING AND IN THE EVENING 60 tablet 3 025 Active fluticasone (Flonase) 50 MCG/ACT nasal spray INSTILL 2 SPRAYS IN EACH NOSTRIL ONCE DAILY 48 g 025 Active clonazePAM (KlonoPIN) 1 MG tabletIndications :Other specified anxiety disorders TAKE 1 TABLET BY MOUTH TWICE DAILY FOR 28 DAYS 56 tablet 025 Active albuterol (2.5 MG/3ML) 0.083% nebulizer solutionIndicatio ns:COPD exacerbation (CMS/HCC) INHALE 1 AMPULE USING A NEBULIZER EVERY 4 HOURS NEEDED FOR WHEEZING OR SHORTNESS OF BREATH 90 mL 1 025 Active albuterol (2.5 MG/3ML) 0.083% nebulizer solutionIndicatio ns:COPD exacerbation (CMS/HCC) INHALE 1 AMPULE USING A NEBULIZER EVERY 4 HOURS NEEDED FOR WHEEZING OR SHORTNESS OF BREATH 90 mL 1 025 2024 Discontinued fluticasone (Flonase) 50 MCG/ACT nasal spray INSTILL 2 SPRAYS IN EACH NOSTRIL ONCE DAILY 48 g 025 2024 Discontinued clonazePAM (KlonoPIN) 1 MG tabletIndications :Other specified anxiety disorders Take 1 tablet (1 mg) by mouth 2 times daily for 28 days. 56 tablet 025 2024 Discontinued Hospital, Clinic, or Other Facility Administered Medication Ordered Dose Route Frequency Start Date End Date Status albuterol (2.5 MG/3ML) 0.083% nebulizer solution 2.5 mgIndications:COPD exacerbation (CMS/HCC) 2.5 mg NEBULIZATION Once 10/23/2024 Active Active Problems Problem Noted Date Diagnosed Date Long-term current use of benzodiazepine 12/07/19 25 Partial edentulism 12/06/2024 Flu 10/18/2024 Assessment & Plan (10/18/2024 1:27 PM EDT): Faint wheezing on exam. No evidence of acute respiratory distress. Suspect asthma/RESTAURANT HOSTESS exacerbation. Symptoms mild. No evidence of dehydration. -Prescribed predniSONE (Deltasone) 20 MG taper. -Supportive care advised. -Isolation recommendations discussed. Acute exacerbation of COPD with asthma Assessment & Plan (10/18/2024 1:25 PM EDT): Faint diffuse wheezing on exam. Suspect acute asthma/RESTAURANT HOSTESS exacerbation. -prescribed predniSONE (Deltasone) 20 MG taper. 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 -In current evaluation by weed burner for Atypical chest pain but difficult to [...] Encounters Date Type Department Care Team Description 03/18/2025 11:30 AM EDT Clinical Support [address] [address] Mai Bishop, RN Long-term current use of benzodiazepine (Primary Dx) 03/18/2025 Telephone [facility] [address] [place] [address] Mai Bishop, JAMAAL CROSS TIE [employer]ER Agreement renewed today; UTOX Neg BZO 03/18/2025 Travel 03/15/2025 Refill [facility] [address] [place] [address] Amelia Montalvo, COPD exacerbation ([facility]) 03/12/2025 Telephone [facility] [address] [place] [address] Mai Bishop RN NCNS CROSS TIE [employer]ER Renewal today 03/06/2025 Refill [facility] [address] [place] [address] Amelia Montalvo, Other specified anxiety disorders 03/04/2025 Telephone [facility] AD[facility] DENTAL [address] [place] [address] Cely Guy 02/21/2025 Refill [facility] [address] [place] [address] Amelia Montalvo DO 02/08/2025 Telephone [facility]OM[facility] [address] [place] [address] ChristianoFrancine, OD 01/28/2025 Refill [facility] [address] [place] [address] Amelia Montalvo DO Other specified anxiety disorders 01/23/2025 Refill [facility] [address] [place] [address] Amelia Montalvo DO Chronic migraine without aura without status migrainosus, not intractable 01/09/2025 11:00 AM EDT Office Visit [facility] [address] [place] [address] Kristian Mendoza DDS Partial edentulism, unspecified edentulism class (Primary Dx) 01/09/2025 Orders Only GENERIC EXTERNAL DATA DEPARTMENT Provider, Generic External Data 01/08/2025 11:15 AM EDT Office Visit [facility] [address] [place] [address] Amelia Montalvo DO Anxiety (Primary Dx); Chronic obstructive pulmonary disease, unspecified COPD type ([facility]); Chronic allergic rhinitis; Chronic migraine; Anemia, unspecified type; Chronic gastroesophageal reflux disease; Chronic constipation; Osteoporosis, unspecified osteoporosis type, unspecified pathological fracture presence; Chronic pain of left knee; Status post total left knee replacement; Palpitations; Chest wall pain; Decreased energy; Healthcare maintenance 01/08/2025 Travel 01/01/2025 Patient Outreach [facility] [address] [place] [address] Amelia Montalvo DO Pre-visit Planning ([facility] unable to reach [facility] ) 01/01/2025 Telephone [facility] [address] [place] [address] Amelia Montalvo DO Chart Prep 12/28/2024 Refill [facility] [address] [place], [place] [phone] Amelia Montalvo DO Other specified anxiety disorders 12/23/2024 Refill [facility] [address] [place] [address] Amelia Montalvo DO 12/17/2024 Telephone [facility] [address] [place], [place] [phone] Amelia Montalvo DO Recall Letter from Last 3 Months Immunizations Immunization Administration [...] Sign Reading Time Taken Comments Blood Pressure 126/74 01/09/2025 10:23 AM EDT Pulse 68 01/09/2025 10:23 AM EDT Temperature 36.1 C (97 F) 01/08/2025 11:54 AM EDT Respiratory Rate 18 01/08/2025 11:5 4 AM EDT Oxygen Saturation 96% 10/23/2024 12: 06 PM EDT Inhaled Oxygen Concentration - - Weight 80.2 kg (176 lb 12.8 oz) 025 11:54 AM EDT Height 172.7 cm (5' 8 ) 01/08/2025 11:5 4 AM EDT Body Mass Index 26.88 01/08/2025 11:54 AM EDT Plan of Treatment Upcoming Encounters Date Type Department Care Team (Late st Contact Info) Description 03/19/2025 11:00 AM EDT Office Visit [facility] [address] [place] [address] Kristian Mendoza DDS [address] [place] [address] 06/17/2025 10:00 AM EST Clinical Support [facility] [address] [place] [phone] Mai Bishop, RN 06/20/2025 1:00 PM EST Office Visit [facility] [address] [place] [address] Sujey Cerda Health Maintenance Due Date Last Done Comments CT Colonography 1953 FIT DNA/Cologuard 1953 FIT 1953 FOBT 1953 Sigmoidoscopy 1953 DTaP/Tdap/Td Vaccines (1 - Tdap) 1972 Mammogram 1993 Dental Prophylaxis 11/06/2024 05/07/2024, 0 12/07/2022, 03/29/2022, Additional history exists COVID-19 Vaccine ( season) 2025 04/16/2024, 08/15/2023, 05/20/2021, Additional history exists Influenza Vaccine (#1) 2025 , 05/13/2023, 03/26/2022, Additional history exists Dental X-Ray: Full Mouth 03/30/2025 03/29/2022, 12/09 Dental Oral Exam 05/09/2025 11/06/2024, , 12/07/2022, Additional history exists Depression Monitoring 07/11/2025 01/08/2025, 025 Dental X-Ray: Bitewings 11/07/2025 11/07/19, 02/23/2024, 12/07/2022, Additional history exists Alcohol/Substance Use Screening 01/08/2026 01/08/2025 SDOH Screening 01/08/2026 01/08/2025 Diabetes: Hemoglobin A1C 01/09/2026 025, 01/31/2024, 11/05/2022, Additional history exists Tobacco Screening 01/09/2026 01/09/2025 Colonoscopy 05/31/2029 05/31/2019 Colorectal Cancer Screening 05/31/2029 Hepatitis B Vaccines Completed 10/30/2014, 10/30/2014, 08/01/2014, Additional history exists Hepatitis C Screening Completed 01/06/2021 Zoster Vaccines Completed 03/02/2021, 12/10, 04/07/2014 Pneumococcal Vaccine: 50+ Years Completed 07/01/2021, 08/21/2018, 05/02/2012, Additional history exists RSV Patients and Patients Aged 60 years or older Completed 03/05/2024 HIB Vaccines Aged Out No longer eligi [...] PM EDT Long-term current use of benzodiazepine BITE REGISTRATION Routine 01/09/2025 11: 00 AM EDT BASIC METABOLIC PANEL Routine 01/09/2025 8:19 AM EDT BASIC METABOLIC PANEL Routine 01/09/2025 8:19 AM EDT Anxiety Chronic obstructive pulmonary disease, unspecified COPD type (CMS/HCC) Chronic allergic rhinitis Chronic migraine Anemia, unspecified type Chronic gastroesophageal reflux disease Chronic constipation Osteoporosis, unspecified osteoporosis type, unspecified pathological fracture presence Chronic pain of left knee Status post total left knee replacement Palpitations Chest wall pain Decreased energy Healthcare maintenance CBC Routine 01/09/2025 8:19 AM EDT Anxiety Chronic obstructive pulmonary disease, unspecified COPD type (CMS/HCC) Chronic allergic rhinitis Chronic migraine Anemia, unspecified type Chronic gastroesophageal reflux disease Chronic constipation Osteoporosis, unspecified osteoporosis type, unspecified pathological fracture presence Chronic pain of left knee Status post total left knee replacement Palpitations Chest wall pain Decreased energy Healthcare maintenance HEMOGLOBIN A1C Routine 01/09/2025 8:19 AM EDT Anxiety Chronic obstructive pulmonary disease, unspecified COPD type (CMS/HCC) Chronic allergic rhinitis Chronic migraine Anemia, unspecified type Chronic gastroesophageal reflux disease Chronic constipation Osteoporosis, unspecified osteoporosis type, unspecified pathological fracture presence Chronic pain of left knee Status post total left knee replacement Palpitations Chest wall pain Decreased energy Healthcare maintenance HEPATIC FUNCTION PANEL Routine 01/09/2025 8:19 AM EDT Anxiety Chronic obstructive pulmonary disease, unspecified COPD type (CMS/HCC) Chronic allergic rhinitis Chronic migraine Anemia, unspecified type Chronic gastroesophageal reflux disease Chronic constipation Osteoporosis, unspecified osteoporosis type, unspecified pathological fracture presence Chronic pain of left knee Status post total left knee replacement Palpitations Chest wall pain Decreased energy Healthcare maintenance VITAMIN D,25-OH,TOTAL,IA Routine 01/09/2025 8:19 AM EDT Anxiety Chronic obstructive pulmonary disease, unspecified COPD type (CMS/HCC) Chronic allergic rhinitis Chronic migraine Anemia, unspecified type Chronic gastroesophageal reflux disease Chronic constipation Osteoporosis, unspecified osteoporosis type, unspecified pathological fracture presence Chronic pain of left knee Status post total left knee replacement Palpitations Chest wall pain Decreased energy Healthcare maintenance TSH Routine 01/09/2025 8:19 AM EDT Anxiety Chronic obstructive pulmonary disease, unspecified COPD type (CMS/HCC) Chronic allergic rhinitis Chronic migraine Anemia, unspecified type Chronic gastroesophageal reflux disease Chronic constipation Osteoporosis, unspecified osteoporosis type, unspecified pathological fracture presence Chronic pain of left knee Status post total left knee replacement Palpitations Chest wall pain Decreased energy Healthcare maintenance LIPID PANEL, STANDARD Routine 01/09/2025 8:19 AM EDT Anxiety Chronic obstructive pulmonary disease, unspecified COPD type (CMS/HCC) Chronic allergic rhinitis Chronic migraine Anemia, unspecified type Chronic gastroesophageal reflux disease Chronic constipation Osteoporosis, unspecified osteoporosis type, unspecified pathological fracture presence Chronic pain of left knee Status post total left knee replacement Palpitations Chest wall pain Decreased energy Healthcare maintenance T4, FREE Routine 01/09/2025 8:19 AM EDT Anxiety Chronic obstructive pulmonary disease, unspecified COPD type (CMS/HCC) Chronic allergic rhinitis Chronic migraine Anemia, unspecified type Chronic gastroesophageal reflux disease Chronic constipation Osteoporosis, unspecified osteoporosis type, unspecified pathological fracture presence Chronic pain of left knee Status post total left knee replacement Palpitations Chest wall pain Decreased energy Healthcare maintenance BITEWINGS - 4 RADIOGRAPHIC IMAGES Routine 11/06/2024 10:00 AM EDT Abfraction Missing teeth, acquired PERIODIC ORAL EVALUATION - ESTABLISHED PATIENT Routine 11/06/2024 10:00 AM EDT PROPHYLAXIS - ADULT Routine 05/07/2024 9 :00 AM EDT INTRAORAL - COMPLETE SERIES OF RADIOGRAPHIC IMAGES Routine 03/29/2022 12:00 AM EDT ZZZ HISTORICAL HEPATITIS C AB W/REFL TO HCV RNA, QN, PCR Routine 01/06/2021 8:12 AM EDT HM COLONOSCOPY Routine 05/31/2019 10:01 AM EST from Last 3 Months or Most Recently Relevant to Health Maintenance Results * (ABNORMAL) POCT OSMIN-14 Urine Drug [...] procedure / Unknown 03/18/2025 12:00 PM EDT Mai Bañuelos RN - 03/18/2025 12:00 PM EDT UTOX cup Lot#[id number] Exp. 04/16/26 Internal Pass Control Amelia Montalvo DO POINT OF CARE TEST ENTER/MAKAYLA T ORDERABLES Final Result * Vitamin D, 25-Hydroxy, Total, Immunoassay (01/09/2025 8:19 AM EDT) Vitamin D 25-OH Total 48.6 >30 ng/mL [facility] Comment: Health Based Reference Values*< 20 ng/mL Sbsayzllw22-75 ng/mL Insufficient> 30 ng/mL Sufficient*Tyree FRANCISCO. N Engl J Med. 2007;357:266-280There is no well-established upper level of normal vitamin Dlevels. Some laboratories use 50 ng/mL as an upper limit ofnormal. However, toxicity is patient-dependent and may occurat any level. Careful correlation with the patient'spresentation is necessary and, if there is concern forvitamin D toxicity, treatment should be consideredirrespective of the serum level.Care must be taken in interpreting Vitamin D results fromdifferent laboratories and methodologies. Published datademonstrated that results from patients undergoinghemodialysis may show a negative bias when tested withvarious automated 25-OH vitamin D assays when compared toLC-MS/MS.When testing samples from patients whose predominant form ofVitamin D is Vitamin D2, such as patients receiving VitaminD2 supplementation, results that are subtherapeutic shouldbe confirmed with another method such as LC-MS/MS. Blood Venous blood specimen / Unknown 01/09/2025 8:19 AM EDT 01/09/2025 11:51 AM EDT us Amelia Montalvo DO LAB BLOOD ORDERABLES Final R esult [facility] [address], [place] [phone] * (ABNORMAL) CBC (01/09/2025 8:19 AM EDT) White Blood Count 5.2 4.8 - 10.8 X10*3/uL [facility] Red Blood Count 4.49 4.20 - 5.50 X10*6/uL [facility] Hemoglobin 11.9(L) 12.0 - 16.0 g/dl [facility] Hematocrit 37.6 37.0 - 47.0 % [facility] Mean Corpuscular Volume 83.7 80.0 - 98.0 fL [facility] Mean Corpuscular Hemoglobin 26.5(L) 27.0 - 33.0 pg [facility] Mean Corpuscular HGB Conc 31.6 31.0 - 35.0 g/dl [facility] Red Cell Distribution Width 13.7 11.0 - 16.0 % [facility] Platelet Count 341 160 - 400 X10*3/uL [facility] Mean Platelet Volume 9.5 9.4 - 12.3 fL [facility] NRBC Pct Auto 0.0 0.0 - 0.2 /100WBC [facility] NRBC Abs Auto 0.000 0.0 - 0.012 X10*3/uL [facility] Blood Venous blood specimen / Unknown 01/09/2025 8:19 AM EDT 01/09/2025 11:22 AM EDT us Amelia Katia DO LAB BLOOD ORDERABLES Final R esult Performing Organization Address [facility] Co de Phone Number [facility] [address] [place] [phone] * TSH (01/09/2025 8:19 AM EDT) Thyroid Stimulating Hormone 2.57 0.32 - 4.0 uIU/mL [facility] Comment:TSH 3rd Generation ( [facility]) Blood Venous blood specimen / Unknown 01/09/2025 8:19 AM EDT 01/09/2025 11:51 AM EDT us Amelia Katia DO LAB BLOOD ORDERABLES Final R esult Performing Organization Address [facility] Co de Phone Number [facility] [address] [place] [phone] * T4, Free (01/09/2025 8:19 AM EDT) Free T4 (Free Thyroxine) 0.92 0.71 - 1.85 ng/dL [facility] Blood Venous blood specimen / Unknown 01/09/2025 8:19 AM EDT 01/09/2025 11:51 AM EDT Amelia Katia DO LAB BLOOD ORDERABLES Final R esult Performing Organization Address [facility] Co de Phone Number [facility] [address] [place] [phone] * Hemoglobin A1c (01/09/2025 8:19 AM EDT) Hemoglobin A1c 5.7 <6.0 % [facility] Comment:Hemoglobin A1C Refer ence Range Adults: 4.8 - 6.0 % Non diabetic: < 6.0 % Goal: < 7.0 %Additional Action Suggested: > 8.0 %Note: Hemoglobin A1c results are invalid for patients with abnormal amounts of HbF. Blood transfusions may impact the HbA1c concentration in the patient sample. Estimated Average Glucose 117 mg/dL [facility] Comment:eAG = Estimated ave rage glucose which is %A1C expressed asaverage glucose, using the formula of the [id number]-[id number] Glucose study (ADAG), Diabetes Care, Vol.31,#8,Feb. 2007 Blood Venous blood specimen / Unknown 01/09/2025 8:19 AM EDT 01/09/2025 11:22 AM EDT Amelia Montalvo DO LAB BLOOD ORDERABLES Final R esult Performing Organization Address City/[facility]/ZIP Co de Phone Number [facility] [address] [place] [phone] * (ABNORMAL) Hepatic Function Panel (01/09/2025 8:19 AM EDT) Bilirubin, Total 0.2 0.0 - 1.0 mg/dL [facility] Bilirubin, Direct <0.2 0.0 - 0.5 mg/dL [facility] Aspartate Amino Transferase 19 5 - 31 U/L [facility] Alanine Aminotransferase 16 0 - 31 U/L [facility] Total Protein 6.3(L) 6.5 - 8.0 g/dL [facility] Albumin Level 4.0 3.5 - 5.0 g/dL [facility] Alkaline Phosphatase 64 39 - 117 U/L [facility] Blood Venous blood specimen / Unknown 01/09/2025 8:19 AM EDT 01/09/2025 11:51 AM EDT Amelia Montalvo DO LAB BLOOD ORDERABLES Final R esult Performing Organization Address [facility]/ZIP Co de Phone Number [facility] [address] [place] [phone] * (ABNORMAL) Lipid Panel, Standard (01/09/2025 8:19 AM EDT) Triglycerides 82 <150 mg/dL [facility] Comment:Desirable Triglyceri de: less than 150 mg/dLBorderline High Triglyceride 150-199 mg/dLHigh Triglyceride: 200-499 mg/dLVery High Triglyceride: greater than or equal to 5OO mg/dL Cholesterol 189 <200 mg/dL [facility] Comment:Desirable Cholestero l: less than 200 mg/dLBorderline High Cholesterol: 200-239 mg/dLHigh Cholesterol: greater than 239 mg/dL LDL Cholesterol Calculated 122(H) <100 mg/dL [facility] Comment:Desirable LDL: less than 100 mg/dLNear Optimal/Above Optimal LDL: 110- 129 mg/dLBorderline High LDL: 130-159 mg/dLHigh LDL: 160-189 mg/dLVery High LDL: greater than or equal to 190 mg/dL HDL Cholesterol 51 >40 mg/dL [facility] Comment:Desirable HDL: great er than 40 mg/dL Note: This HDL assay may give artificially low results in patients with liver disease. Blood Venous blood specimen / Unknown 01/09/2025 8:19 AM EDT 01/09/2025 11:51 AM EDT us Amelia Montalvo DO LAB BLOOD ORDERABLES Final R esult [facility] [address], [place] [phone] * (ABNORMAL) Basic Metabolic Panel (01/09/2025 8:19 AM EDT) Only the most recent of2 resultswithin the time period is included. Sodium 140 135 - 145 mmol/L [facility] Potassium 4.1 3.3 - 5.1 mmol/L [facility] Chloride 106 96 - 108 mmol/L [facility] Carbon Dioxide 28 22 - 29 mmol/L [facility] Anion Gap 10(L) 12 - 20 [facility] Urea Nitrogen (BUN) 14 9 - 16 mg/dL [facility] Creatinine, Serum 0.74 0.5 - 1.4 mg/dL [facility] Estimated Glomerular Filt Rate >60 [facility] Comment:Chronic Kidney Disea se: Estimated GFR < 60 mL/min/1.42i7Sssgej Kidney Disease: Estimated GFR < 15 mL/min/1.73m2 Glucose 97 60 - 115 mg/dL [facility] Calcium 8.6 8.4 - 10.2 mg/dL [facility] 01/09/2025 8:19 AM EDT 01/09/2025 11:51 AM EDT us Generic External Data Provider LAB BLOOD ORDERAB LES Final Result Performing Organization Address [facility]/ZIP Co de Phone Number [facility] [address] [place] [phone] * HEPATITIS C AB W/REFL TO HCV RNA, QN, PCR (01/06/2021 8:12 AM EDT) HEPATITIS C ANTIBODY NON-REACT [facility] NON-REACT [facility] INDEX 0.01 <1.00 [facility] Comment: HCV antibody was non-reactive. There is no laboratory evidence of HCV infection. In most cases, no further action is required. However, if recent HCV exposure is suspected, a test for HCV RNA (test code 22926) is suggested. For additional information please refer to http://education.[employer]/faq/NZC24d8 (This link is being provided for informational/ educational purposes only.) 01/06/2021 8:12 AM EDT us Amelia Montalvo DO HISTORICAL/NON ORDERABLE LAB S Final Result Performing Organization Address City/[facility]/ZIP Co de Phone Number [facility] [address] [place] [address], * Hm Colonoscopy (05/31/2019 10:01 AM EST) us Historical Provider MD HEALTH MAINTENANCE Final Result from Last 3 Months or Most Recently Relevant to Health Maintenance Insurance [facility] [employer] (HMO D-SNP) [facility] STANDARD DENTAL [facility] Care Teams Daycare Provider Relationship Specialty Start Date End Date Amelia Montalvo DO [address] [place] [phone] PCP - General Family Medicine 06/23/12
--- OUTSIDE RECORDS SUMMARY | 2025-03-18 14:26 | XMS_ITS | Encounter Summary ---
Author Organization [employer] Address 75 [facility] 7t [place] [address] Care Team Providers Care Supervisor Filtration Name Role Phone Amelia Montalvo DO Primary Care Provider + [phone] Reason for Visit * Reason Comments Med Refill Encounter Details Date Type Department Care Team ([facility] st Contact Info) Description 11/15/2023 Refill [facility] MEDICINE [address] [place] [address] Charley Miller MD [address] [place] [address] Social History Tobacco Use Types Packs/Day Years [...] Description 03/19/2025 11:00 AM EDT Office Visit [facility] ADULT DENTAL [address] [place] [address] Kristian Mendoza DDS [address] [place] [address] 06/17/2025 10:00 AM EST Clinical Support [facility] MEDICINE [address] [place] [address] Mai Bishop RN 06/20/2025 1:00 PM EST Office Visit [facility] ADULT DENTAL [address] [place] [address] Sujey Cerda documented as of this encounter Visit Diagnoses Not on filedocumented in this encounter Care Teams Supervisor Filtration Relationship Specialty Start Date End Date Amelia Montalvo DO [address] [place] [phone] PCP - General Family Medicine 06/23/12 documented as of this encounter
--- OUTSIDE RECORDS SUMMARY | 2025-03-18 14:26 | XMS_ITS | Encounter Summary ---
Author Organization [employer] Address 75 [facility] 7t [place] [address] Care Team Providers Care Smelter Liner Name Role Phone Amelia Montalvo DO Primary Care Provider [phone] Reason for Visit * Reason Comments Med Refill Encounter Details Date Type Department Care Team (Late st Contact Info) Description 12/07/2022 Refill [facility] [address] [place] [address] Iram Ascencio FNP Social History Tobacco Use [...] Description 03/19/2025 11:00 AM EDT Office Visit [facility] ADULT DENTAL [address] [place] [address] Kristian Mendoza DDS [address] [place] [address] 06/17/2025 10:00 AM EST Clinical Support [facility] MEDICINE [address] [place] [address] Mai Bishop, RN 06/20/2025 1:00 PM EST Office Visit [facility] ADULT DENTAL [address] [place] [address] Sujey Cerda documented as of this encounter Visit Diagnoses Not on filedocumented in this encounter Care Teams Smelter Liner Relationship Specialty Start Date End Date Amelia Montalvo DO [address] [place] [address] PCP - General Family Medicine 06/23/12 documented as of this encounter
--- OUTSIDE RECORDS SUMMARY | 2025-03-18 14:27 | XMS_ITS | Encounter Summary ---
Author Organization [employer] Address 75 [facility] 7t [place] [address] Care Team Providers Care Plywood Factory Worker Name Role Phone KatiaAmelia Primary Care Provider [phone] [phone] Encounter Details Date Type Department Care Team (Late st Contact Info) Description 10/07/2022 Orders Only [facility] MED & PEDS [address] [place] [address] Amelia Kemp LPN Social History Tobacco Use [...] Description 03/19/2025 11:00 AM EDT Office Visit [facility] ADULT DENTAL [address] [place] [address] Kristian Mendoza DDS [address] [place] [address] 06/17/2025 10:00 AM EST Clinical Support [facility] MEDICINE [address] [place] [address] Mai Bishop RN 06/20/2025 1:00 PM EST Office Visit [facility] ADULT DENTAL [address] [place] [address] Sujey Cerda documented as of this encounter Procedures Procedure Name Priority Date/Time Associated Diagnosis Comments CT HEAD WO CONTRAST Routine 10/22/2022 1 0:52 AM EDT documented in this encounter Results * CT Head w/o Contrast (10/22/2022 10:52 AM EDT) Anatomical Region Laterality Modality Head, Neck Computed Tomogra phy 10/22/2022 10:5 2 AM EDT Narrative 11/02/2022 3:00 PM EDT [address] [address] [address] Scan Report Signed Patient: Maida Mitchell I MR#: [id number] 73 : 1955 Acct:[id number] Age/Sex: 67 / F ADM Date: 10/22/22 Loc: HO.CT Attending Dr: Igor Landry MD Ordering Physician: IGOR LANDRY MD Date of Service: 10/22/22 Procedure(s): CT head/brain wo IV con Accession Number(s): [id number] cc: IGOR LANDRY MD EXAMINATION: CT HEAD [...] signed by Bouchra Menjivar MD in OV> 11/02/227 DD/ 1052 TD/TT: Guzzler Builder: REGINA Procedure Note Donotuseinterpreter, Image - 11/02/[address] [address] [address] Scan Report Signed Patient: Maida Mitchell IMR#: [id number] : 1955cct:[id number] Age/Sex: 67 / FADM Date: 10/22/22 Loc: HO.CT Attending Dr: Igor Landry MD Ordering Physician: IGOR LANDRY MD Date of Service: 10/22/22 Procedure(s): CT head/brain wo IV con Accession Number(s): [id number] cc: IGOR LANDRY MD EXAMINATION: CT HEAD [...] in OV> 11/02/22 1457 DD/ 1052 TD/TT: Guzzler Builder: REGINA [employer] External Provider IMG CT PROCEDURES Edited Result - Final documented in this encounter Visit Diagnoses Not on filedocumented in this encounter Care Teams Plywood Factory Worker Relationship Specialty Start Date End Date Amelia Montalvo DO [address] [place] [address] PCP - General Family Medicine 06/23/12 documented as of this encounter
--- OUTSIDE RECORDS SUMMARY | 2025-03-18 14:27 | XMS_ITS | Encounter Summary ---
Author Organization [employer] Address 75 [facility] 7t [place] [address] Care Team Providers Care Head Tennis Coach Name Role Phone Amelia Montalvo DO Primary Care Provider [phone] Reason for Visit * Reason Comments Med Refill Encounter Details Date Type Department Care Team ([facility] st Contact Info) Description 11/06/2024 Refill [facility] MEDICINE [address] [place] [address] Amelia Montalvo DO [address] [place] [address] Vitamin B12 deficiency Social History Tobacco Use [...] Description 03/19/2025 11:00 AM EDT Office Visit [facility] ADULT DENTAL [address] [place] [address] Kristian Mendoza DDS [address] [place] [address] 06/17/2025 10:00 AM EST Clinical Support [facility] MEDICINE [address] [place] [phone] Mai Bishop, RN 06/20/2025 1:00 PM EST Office Visit [facility] ADULT DENTAL [address] [place] [address] Sujey Cerda documented as of this encounter Visit Diagnoses Diagnosis Vitamin B12 deficiency Other B-complex deficiencies documented in this encounter Additional Health Concerns Assessment Noted Time PHQ-9 Depression Total Score: 18 024 2:12 PM EDT documented as of this encounter Care Teams Head Tennis Coach Relationship Specialty Start Date End Date Amelia Montalvo DO [address] [place] [address] PCP - General Family Medicine 06/23/12 documented as of this encounter
--- OUTSIDE RECORDS SUMMARY | 2025-03-18 14:27 | XMS_ITS | Encounter Summary ---
Author Organization [employer] Address 75 [facility] 7t [place] [address] Care Team Providers Care Inside Sales Associate Name Role Phone Amelia Montalvo DO Primary Care Provider [phone] Encounter Details Date Type Department Care Team (Latest Contact Info) Description 03/18/2025 Travel Social History Tobacco Use Types Packs/Day [...] diff erent things 2 03/18/2025 11:57 AM EDT Mai Bishop R N Trouble relaxing 2 03/18/2025 11:57 AM FARRAHT Mai Bishop RN Being so restless that it is hard to sit still 2 03/18/2025 11:57 AM FARRAHT Mai Bishop R N Becoming easily annoyed or irritable 2 02/2025 11:57 AM FARRAHT Mai Bishop RN Feeling afraid as if somethi ng awful might happen 3 03/18/2025 11:57 AM Mai Carrasco R N PREET-7 Total Score 15 03/18/2025 11:57 AM Mai Carrasco RN documented as of this encounter Plan of Treatment Upcoming Encounters Date Type Department Care Team (Late st Contact Info) Description 03/19/2025 11:00 AM EDT Office Visit [facility] ADULT DENTAL [address] [place] [address] Kristian Mendoza DDS [address] [place] [address] 06/17/2025 10:00 AM EST Clinical Support [facility] MEDICINE [address] [place] [address] Mai Bishop, RN 06/20/2025 1:00 PM EST Office Visit [facility] ADULT DENTAL [address] [place] [address] Sujey Cerda documented as of this encounter Visit Diagnoses Not on filedocumented in this encounter Additional Health Concerns Assessment Noted Time PHQ-9 Depression Total Score: 16 01/08/ 025 12:09 PM EDT documented as of this encounter Care Teams Inside Sales Associate Relationship Specialty Start Date End Date Amelia Montalvo DO [address] [place] [address] PCP - General Family Medicine 06/23/12 documented as of this encounter
--- OUTSIDE RECORDS SUMMARY | 2025-03-18 14:27 | XMS_ITS | Encounter Summary ---
Author Organization [employer] Address 75 [facility] 7t [place] [address] Care Team Providers Care Spindle Maker Name Role Phone Amelia Montalvo DO Primary Care Provider [phone] Reason for Visit * Reason Comments Med Refill Encounter Details Date Type Department Care Team ([facility] st Contact Info) Description 12/09/2023 Refill [facility] MEDICINE [address] [place] [address] Amelia Montalvo DO [address] [place] [address] Social History Tobacco Use Types Packs/Day Years [...] Description 03/19/2025 11:00 AM EDT Office Visit [facility] ADULT DENTAL [address] [place] [address] Kristian Mendoza DDS [address] [place] [address] 06/17/2025 10:00 AM EST Clinical Support [facility] MEDICINE [address] [place] [address] Mai Bishop, JAMAAL 06/20/2025 1:00 PM EST Office Visit [facility] ADULT DENTAL [address] [place] [address] Sujey Cerda documented as of this encounter Visit Diagnoses Not on filedocumented in this encounter Care Teams Spindle Maker Relationship Specialty Start Date End Date Amelia Montalvo DO [address] [place] [address] PCP - General Family Medicine 06/23/12 documented as of this encounter
--- OUTSIDE RECORDS SUMMARY | 2025-03-18 14:27 | XMS_ITS | Encounter Summary ---
Author Organization [employer] Address 75 [facility] 7t [place] [address] Care Team Providers Care Business Development Director Name Role Phone Amelia Montalvo DO Primary Care Provider + [phone] Reason for Visit * Reason Onset Date Comments TELEVISION EQUIPMENT OPERATOR Agreement renewed today 03/18/2025 UTOX Neg BZO 03/18/2025 Encounter Details Date Type Department Care Team (Late st Contact Info) Description 03/18/2025 Telephone [facility] MEDICINE [address] [place] [address] Mai Bishop RN TELEVISION EQUIPMENT OPERATOR Agreement renewed today; UTOX Neg BZO Social History Tobacco Use Types Packs/Day Years [...] or on edge 2 02/2025 11:57 AM Mai Carrasco RN Not being able to stop or co ntrol worrying 2 03/18/2025 11:57 AM Mai Carrasco R N Worrying too much about diff [...] Carrasco RN documented as of this encounter Miscellaneous Notes * Telephone Encounter - Mai Bishop RN - 03/18/2025 12:05 PM EDT Pt had TELEVISION EQUIPMENT OPERATOR Renewal appt today UTOX was neg BZO, sent out for confirmation PREET-7 Total Score: 15 (03/18/2025 11:57 AM) Previous PREET-7 done: 12/06/2024, score: 15 documented in this encounter Plan of Treatment Upcoming Encounters Date Type Department Care Team (Late st Contact Info) Description 03/19/2025 11:00 AM EDT Office Visit [facility] ADULT DENTAL [address] [place] [address] Kristian Mendoza DDS [address] [place] [address] 06/17/2025 10:00 AM EST Clinical Support [facility] MEDICINE [address] [place] [address] Mai Bishop, JAMAAL 06/20/2025 1:00 PM EST Office Visit [facility] ADULT DENTAL [address] [place] [address] Sujey Cerda documented as of this encounter Visit Diagnoses Not on filedocumented in this encounter Additional Health Concerns Assessment Noted Time PHQ-9 Depression Total Score: 16 025 12:09 PM EDT documented as of this encounter Care Teams Business Development Director Relationship Specialty Start Date End Date Amelia Montalvo DO [address] [place] [address] PCP - General Family Medicine 06/23/12 documented as of this encounter
--- OUTSIDE RECORDS SUMMARY | 2025-03-18 14:27 | XMS_ITS | Encounter Summary ---
Author Organization [employer] Address 75 [facility] 7t [place] [address] Care Team Providers Care Sand Screener Name Role Phone Amelia Montalvo DO Primary Care Provider [phone] Encounter Details Date Type Department Care Team (Late st Contact Info) Description 10/26/2022 Orders Only [facility] MEDICINE [address] [place] [phone] Michelle Vides LPN Social History Tobacco Use [...] 11:00 AM EDT Office Visit [facility] ADULT DENTAL [address] [place] [address] Kristian Mendoza DDS [address] [place] [address] 06/17/2025 10:00 AM EST Clinical Support [facility] MEDICINE [address] [place] [phone] EdnaMai RN 06/20/2025 1:00 PM EST Office Visit [facility] ADULT DENTAL [address] [place] [address] Sujey Cerda documented as of this encounter Visit Diagnoses Not on filedocumented in this encounter Care Teams Sand Screener Relationship Specialty Start Date End Date Amelia Montalvo DO [address] [place] [address] PCP - General Family Medicine 06/23/12 documented as of this encounter
--- OUTSIDE RECORDS SUMMARY | 2025-03-18 14:27 | XMS_ITS | Encounter Summary ---
Author Organization [employer] Address 75 [facility] 7t [place] [address] Care Team Providers Care Hogshead Cooper Name Role Phone Amelia Montalvo DO Primary Care Provider [phone] Reason for Visit * Reason Comments Med Refill Encounter Details Date Type Department Care Team ([facility] st Contact Info) Description 03/15/2025 Refill [facility] MEDICINE [address] [place] [address] Amelia Montalvo DO [address] [place] [address] COPD exacerbation (CMS/HCC) Social History Tobacco Use Types Packs/Day Years [...] Description 03/19/2025 11:00 AM EDT Office Visit [facility] ADULT DENTAL [address] [place] [address] Kristian Mendoza DDS [address] [place] [address] 06/17/2025 10:00 AM EST Clinical Support [facility] MEDICINE [address] [place] [address] Mai Bishop, RN 06/20/2025 1:00 PM EST Office Visit [facility] ADULT DENTAL [address] [place] [address] Sujey Cerda documented as of this encounter Visit Diagnoses Diagnosis COPD exacerbation (CMS/HCC) Obstructive chronic bronchitis with exacerbation documented in this encounter Additional Health Concerns Assessment Noted Time PHQ-9 Depression Total Score: 16 025 12:09 PM EDT documented as of this encounter Care Teams Hogshead Cooper Relationship Specialty Start Date End Date Amelia Montalvo DO [address] [place] [address] PCP - General Family Medicine 06/23/12 documented as of this encounter
== END 2025-03-18 11:52 | disposition home or self-care (01) ==
LOC: HO.HOSX 11:51
PROVIDERS: Visit Provider Orthopaedic Surgery
DX: Z13.89 Encounter for screening for other disorder (principal)

== ENCOUNTER 2025-03-18 16:12 | Outpatient (REF) | payer OTHER, SELFPAY ==
[2025-03-25 09:59] LABS: Alprazolam, GCMS Urine NEGATIVE; Aminoclonazepam, GCMS Urine 188; Oxazepam, GCMS Urine NEGATIVE
[2025-03-25 10:00] LABS: Alphahydroxymidazolam,GCMS Ur NEGATIVE; Alphahydroxytriazolam, GCMS Ur NEGATIVE; Flurazepam Metabolite,GCMS Ur NEGATIVE; Lorazepam GCMS Urine NEGATIVE; Temazepam, GCMS Urine NEGATIVE
[2025-03-25 10:01] LABS: Nordiazepam, GCMS Urine NEGATIVE
== END 2025-03-18 16:13 | disposition home or self-care (01) ==
LOC: HO.HHCLNP 16:12
PROVIDERS: Visit Provider Family Medicine
DX: Z79.899 Other long term (current) drug therapy (principal)
CPT/HCPCS: 80346

== ENCOUNTER 2025-04-16 13:12 | Outpatient (REF) | payer OTHER, SELFPAY ==
--- NOTE | ~2025-04-16 | XR_ITS ---
EXAMINATION: XR SHOULDER, RIGHT CLINICAL INFORMATION: sudden onset right shoulder pain with limited forward flexition. COMPARISON: None available. TECHNIQUE: AP external rotation, Grashey, scapular Y, and axillary views of the right shoulder. FINDINGS: Normal bone mineralization. No fracture, dislocation, or suspicious bone lesion. Normal alignment. The glenohumeral joint is normal. The AC joint demonstrates mild to moderate superior and undersurface spurring. There is a type I acromion. No undersurface spurring. The subacromial space is preserved. Remainder of the soft tissue and bony structures appear normal. XR/XR shoulder RT min 2V IMPRESSION: 1. No acute findings of the right shoulder. 2. Mild to moderate degenerative changes of the AC joint. Electronically signed by: Carroll Minor MD 04/16/2025 01:48 PM EDT
--- OUTSIDE RECORDS SUMMARY | 2025-04-16 13:00 | XMS_ITS | Encounter Summary ---
Author Organization [employer] Address [address] [facility] [address] [place] [address] Care Team Providers Care Quality Review Specialist Name Role Phone BharathAmelia martins Primary Care Provider + [phone] Reason for Referral * Consultation (Routine) - Closed Specialty Diagnoses / Procedures Referred By Hector mcduffie Referred To Contact Physical Therapy Diagnoses Shoulder pain, unspecified chronicity, unspecified laterality Nell Layton NP [address] [place] [address] Phone: tel: fax: [facility] Physical Therapy [address] [place] [address] Phone: tel: fax: Referral ID Status Reason Start Date Expiration Date V isits Requested Visits Authorized [id number] Closed Specialty Services Required 04/16/2025 04/16/2026 1 1 * Consultation (Urgent) - Authorized Specialty Diagnoses / Procedures Referred By Hector mcduffie Referred To Contact Orthopaedic Surgery Diagnoses Shoulder pain, unspecified chronicity, unspecified laterality Nell Layton NP [address] [place] [address] Phone: tel: fax: [facility] Orthopedics [address] [place] [address] Phone: tel: Referral ID Status Reason Start Date Expiration Date Visits Requested Visits Authorized [id number] Authorized Specialty Services Required 04/16/2025 04/16/2026 1 1 Reason for Visit * Reason Comments sick onsite Right shoulder pain Encounter Details Date Type Department Care Team (Late st Contact Info) Description 04/16/2025 1:00 PM EDT Office Visit [facility] [address] [place], [place] [phone] Nell Layton NP [address] [place] [address] Shoulder pain, unspecified chronicity, unspecified laterality (Primary Dx) Social History Tobacco Use Types [...] Sign Reading Time Taken Comments Blood Pressure 120/84 04/16/2025 12:06 PM EDT Pulse 90 04/16/2025 12:06 PM EDT Temperature 37 C (98.6 F) 04/16/2025 12:06 PM EDT Respiratory Rate 22 04/16/2025 12:06 PM EDT Oxygen Saturation 97% 04/16/2025 12:06 PM EDT Inhaled Oxygen Concentration - - Weight 75.3 kg (166 lb) 04/16/2025 12:06 PM EDT Height 172.7 cm (5' 8 ) 04/16/2025 12:06 PM EDT Body Mass Index 25.24 04/16/2025 12:06 PM EDT documented in this encounter Progress Notes * Nell Layton NP - 04/16/2025 1:00 PM EDT Maida Mitchell is a 69 y.o. female who presents to the office for Chief Complaint Patient presents with sick onsite Right shoulder pain Problem List[1] Medical History[2] Allergies[3] Maida Mitchell, 69-year-old female - Right shoulder pain started one week ago - Pain recently began in the left shoulder - Describes pain as located in the bone, radiating through the entire shoulder, unable to move or lift arm, unable to perform activities - Pain is constant, sometimes worsens - Severe pain at night, unable to sleep - Denies upper back or neck pain - Tried acetaminophen and ice, no relief - Has used ibuprofen over the counter for pain in the past - Pain intensity reported as 10 out of 10 Review of Systems Constitutional: Positive for activity change. Negative for diaphoresis and fatigue. Musculoskeletal: Positive for arthralgias, back pain, joint swelling and myalgias. Negative for neck pain and neck stiffness. BP 120/84 (BP Location: Left arm, Patient Position: Sitting, BP Cuff Size: Adult) Pulse 90 Temp98.6 ??F (37 ??C) (Oral) Resp 22 Ht 5' 8 (1.727 m) Wt 166 lb (75.3 kg) SpO2 97% BMI 25.24 kg/m?? Physical Exam Vitals reviewed. HENT: Head: Normocephalic and atraumatic. Nose: Nose normal. Eyes: Conjunctiva/sclera: Conjunctivae normal. Cardiovascular: Rate and Rhythm: Normal rate and regular rhythm. Pulmonary: Effort: Pulmonary effort is normal. Breath sounds: Normal breath sounds. Musculoskeletal: Right shoulder: Tenderness present. No bony tenderness or crepitus. Decreased range of motion. Cervical back: Normal range of motion and neck supple. Neurological: General: No focal deficit present. Mental Status: She is alert. - MUSCULOSKELETAL: Limited range of motion in the right shoulder, pain with movement, tenderness inthe right shoulder. Results: No visits with results within 28 Day(s) from this visit. Latest known visit with results is: Clinical Support on 03/18/2025 Component Date Value Ref Range Status THC 03/18/2025 Negative Negative Final Cocaine Screen, Urine 03/18/2025 Negative Negative Final Opiate Screen, Urine 03/18/2025 Negative Negative Final Methamphetamine Screen Urine 03/18/2025 Negative Negative Final Amphetamine Screen, Urine 03/18/2025 Negative Negative Final Benzodiazepines Screen, Urine 03/18/2025 Negative Negative Final Barbiturate Screen, Urine 03/18/2025 Negative Negative Final Methadone Screen, Urine 03/18/2025 Negative Negative Final Buprenophine Screen, Urine 03/18/2025 Negative Negative Final TCA, Urine 03/18/2025 Negative Negative Final MDMA Urine 03/18/2025 Negative Negative ng/mL Final Oxycodone Screen, Urine 03/18/2025 Negative Negative Final Phencyclidine (PCP), Urine 03/18/2025 Negative Negative Final Propoxyphene, Urine 03/18/2025 Negative Negative Final Fentanyl, Urine 03/18/2025 Negative Negative Final Nordiazepam, GCMS Urine 03/18/2025 NEGATIVE Final CUTOFF 50 NG/MLPERFORMING SITE:[employer] [facility], [address] [place], [place] [id number] Senior Java Web Application Developer: APPLE WALSH MD, CLIA:[id number] Oxazepam, GCMS Urine 03/18/2025 NEGATIVE Final CUTOFF 50 NG/ML Lorazepam GCMS Urine 03/18/2025 NEGATIVE Final CUTOFF 50 NG/ML Alprazolam, GCMS Urine 03/18/2025 NEGATIVE Final CUTOFF 25 NG/ML Alphahydroxytriazolam, GCMS Ur 03/18/2025 NEGATIVE Final CUTOFF 50 NG/ML Temazepam, GCMS Urine 03/18/2025 NEGATIVE Final CUTOFF 50 NG/ML Alphahydroxymidazolam,GCMS Ur 03/18/2025 NEGATIVE Final CUTOFF 50 NG/ML Aminoclonazepam, GCMS Urine 03/18/2025 188 Final CUTOFF 25 NG/ML Flurazepam Metabolite,GCMS Ur 03/18/2025 NEGATIVE Final CUTOFF 50 NG/ML Benzodiazepines Comments 03/18/2025 SEE NOTE Final This drug testing is for medical treatment only. Analysiswas performed as non- forensic testing and these resultsshould be used only by healthcare providers to renderdiagnosis or treatment, or to monitor progress of medicalconditions.Aminoclonazepam detected is consistent with the use of thedrug Clonazepam.Confirmation tests were developed and their analyticalperformance characteristics have been determined by [employer]. It has not been cleared or approved by the FDA.This assay has been validated pursuant to the CLIAregulations and is used for clinical purposes.Healthcare Providers needing Interpretation assistance,please contact us at [phone] ( ) M-F,8am to 10pm EST Assessment & Plan Shoulder pain, unspecified chronicity, unspecified laterality Orders: XR Shoulder 2+ Views Right; Future CBC auto differential; Future Comprehensive Metabolic Panel; Future Sed Rate by Modified Westergren; Future C-reactive Protein; Future naproxen (Naprosyn) 500 MG tablet; Take 1 tablet (500 mg) by mouth 2 times daily for 10 days. traMADol (Ultram) 50 MG tablet; Take 1 tablet (50 mg) by mouth every 8 (eight) hours if needed for severe pain for up to 3 days. Referral to Orthopaedic Surgery; Future Referral to Physical Therapy; Future acetaminophen (Tylenol 8 Hour) 650 MG ER tablet; Take 1 tablet (650 mg) by mouth every 8 (eight) hours if needed for mild pain. Do not crush, chew, or split. Assessment & Plan Shoulder pain, unspecified chronicity, unspecified laterality: - Severe right shoulder pain with limited range of motion, likely adhesive capsulitis (frozen shoulder). Differential diagnosis includes rotator cuff pathology and polymyalgia rheumatica. Fracture considered unlikely but not excluded. - Ordered right shoulder X-ray to rule out fracture or arthritis. Ordered blood work to evaluate for polymyalgia rheumatica. Referred urgently to orthopedics for further evaluation and management, including assessment for rotator cuff involvement. Referred to physical therapy for shoulder rehabilitation. Prescribed naproxen to be taken twice daily with food for pain and inflammation. Prescribed tramadol as needed for severe pain, with instructions to avoid driving after first dose and to use only for a few days. Prescribed acetaminophen as adjunct for breakthrough pain. Advised to start anti-i nflammatory first, add acetaminophen if needed, and use tramadol if pain remains uncontrolled. Patient given option to fill tramadol prescription at her discretion. - Risks and side effects: Discussed potential for sedation and dependence with tramadol, especiallywith prolonged use. Advised to avoid driving after first dose of tramadol. Advised to take naproxenwith food to minimize gastrointestinal side effects. Prescription - Naproxen 500 mg (anti-inflammatory), twice daily with food to protect stomach - Acetaminophen as needed for breakthrough pain, to be added on top of naproxen - Tramadol 50 mg, one tablet every 8 hours as needed for severe pain for a few days; low addictive potential but avoid driving after first dose and prolonged use due to risk of dependence Appointments - X-ray at downstairs walk-in clinic - Blood work at first-floor lab - Urgent referral to dermatology specialist - Referral to physical therapy to start in 1-2 weeks Current Medications[4] Based on our discussion, I have outlined the following instructions for you: - Take naproxen twice a day with food to help with pain and inflammation and to protect your stomach. - If you still have pain after taking naproxen, you can take acetaminophen as well. - If your pain is very strong and not helped by naproxen and acetaminophen, you can use tramadol for a few days. Do not drive after your first dose of tramadol, as it may make you sleepy. Tramadol can be habit-forming if used for a long time, so only use it when you really need it. - You can choose whether or not to fill your tramadol prescription. Next appointment(s): - X-ray at downstairs walk-in clinic - Blood work at first-floor lab - Urgent referral to dermatology specialist - Referral to physical therapy to start in 1-2 weeks Thank you again for your visit, and we look forward to supporting you in your journey to better health. This note was drafted using Ambient (AI) technology. The patient/patient's guardian has been informed and has consented to the use of this technology: Yes Visit Conducted in: Belarusian Translation by: Provided by [employer] Phone Service ID # [id number] [1] Patient Active Problem List Diagnosis Chronic allergic rhinitis PREET (generalized anxiety disorder) Osteoarthritis Asthma Chronic low back pain Chronic pain syndrome Chronic pelvic pain Chronic obstructive lung disease (HCC) Vitamin B12 deficiency Chronic constipation Elevated fasting glucose Chronic gastroesophageal reflux disease Hiatal hernia Chronic migraine Osteopenia Vitamin D deficiency History of COVID-19 Restless leg syndrome Fibromyalgia Degenerative disc disease, lumbar Chronic pain of left knee Generalized abdominal pain Osteoporosis Anemia Healthcare maintenance Abfraction Fracture of tooth enamel and dentin Flu Acute exacerbation of COPD with asthma (CMS/HCC) (HCC) Long-term current use of benzodiazepine Partial edentulism Shoulder pain [2] Past Medical History: Diagnosis Date Anxiety disorder Asthma GERD (gastroesophageal reflux disease) Migraines [3] Allergies Allergen Reactions Tetanus-Diphtheria Toxoids Td Anaphylaxis Vancomycin Other Tetanus Toxoid Other reaction(s): shaking When little per (who says pt's mom told him this) [4] Current Outpatient Medications: acetaminophen (Tylenol 8 Hour) 650 MG ER [...] do not lie down for 30 minutes (Patient not taking: Reported on 03/19/2025), Disp: 4 tablet, Rfl: 5 Azelastine HCl [...] EVERY MORNING, Disp: 90 tablet, Rfl: 3 clonazePAM (KlonoPIN) 1 MG tablet, TAKE 1 TABLET BY MOUTH TWICE DAILY FOR 28 DAYS, Disp: 56 tablet,Rfl: 0 cyanocobalamin (Vitamin B-12) 1000 MCG tablet, TAKE 1 TABLET BY MOUTH EVERY MORNING, Disp: 90 tablet, Rfl: 3 Diclofenac Sodium 1 % gel, Apply 2 g topically if needed in the morning, at noon, in the evening, and at bedtime (pain). (Patient not taking: Reported on 03/19/2025), Disp: 150 g, Rfl: 3 divalproex (Depakote ER) 250 MG 24 hr tablet, TAKE 1 TABLET BY MOUTH TWICE DAILY IN THE MORNING ANDIN THE EVENING, Disp: 60 tablet, Rfl: 3 docusate sodium (Colace) 100 MG capsule, , Disp: , Rfl: famotidine (Pepcid) 40 MG tablet, Take 1 tablet (40 mg) by mouth at bedtime. (Patient not taking: Reported on 03/19/2025), Disp: 30 tablet, Rfl: 11 Fiber-Lax 625 MG tablet, TAKE 1 TABLET [...] WITH FOOD, Disp: 90 tablet, Rfl: 3 naproxen (Naprosyn) 500 MG tablet, Take 1 tablet (500 mg) by mouth 2 times daily for 10 days., Disp: 20 tablet, Rfl: 0 omeprazole (PriLOSEC) [address] capsule, TAKE [...] each day for migraine., Disp: , Rfl: traMADol (Ultram) 50 MG tablet, Take 1 tablet (50 mg) by mouth every 8 (eight) hours if needed for severe pain for up to 3 days., Disp: 10 tablet, Rfl: 0 zafirlukast (Accolate) 20 MG tablet, TAKE 1 TABLET BY MOUTH TWICE DAILY IN THE MORNING AND IN THE EVENING AFTER MEALS, Disp: 180 tablet, Rfl: 1 Current Facility-Administered Medications: albuterol (2.5 MG/3ML) 0.083% nebulizer solution 2.5 mg, 2.5 mg, Nebulization, Once, Amelia Montalvo DO documented in this encounter Miscellaneous Notes * Assessment & Plan Note - Nell Layton NP - 04/16/2025 1:00 PM EDTAssociated Problem(s): Shoulder pain Orders: XR Shoulder 2+ Views Right; Future CBC auto differential; Future Comprehensive Metabolic Panel; Future Sed Rate by Modified Westergren; Future C-reactive Protein; Future naproxen (Naprosyn) 500 MG tablet; Take 1 tablet (500 mg) by mouth 2 times daily for 10 days. traMADol (Ultram) 50 MG tablet; Take 1 tablet (50 mg) by mouth every 8 (eight) hours if needed for severe pain for up to 3 days. Referral to Orthopaedic Surgery; Future Referral to Physical Therapy; Future acetaminophen (Tylenol 8 Hour) 650 MG ER tablet; Take 1 tablet (650 mg) by mouth every 8 (eight) hours if needed for mild pain. Do not crush, chew, or split. documented in this encounter Plan of Treatment Upcoming Encounters Date Type Department Care Team (Late st Contact Info) Description 06/17/2025 10:00 AM EST Clinical Support [facility] [address] [place] [id number] Mai Bishop RN 06/20/2025 1:30 PM EST Office Visit [facility] [address] [place] [address] Brooks, Cely [address] [place] [address] Scheduled Orders Name Type Priority Associated Diagnoses Orde r Schedule CBC auto differential Lab Routine Shoulder pain, unspecified chronicity, unspecified laterality Expected: 04/16/2025 (Approximate), Expires: 04/16/2026 Comprehensive Metabolic Panel Lab Routine Shoulder pain, unspecified chronicity, unspecified laterality Expected: 04/16/2025 (Approximate), Expires: 04/16/2026 Sed Rate by Modified Westergren Lab Routine Shoulder pain, unspecified chronicity, unspecified laterality Expected: 04/16/2025, Expires: 04/16/2026 C-reactive Protein Lab Routine Shoulder pain, unspecified chronicity, unspecified laterality Expected: 04/16/2025 (Approximate), Expires: 04/16/2026 Scheduled Referrals Name Type Priority Associated Diagnoses Orde r Schedule Referral to Orthopaedic Surgery Outpatient Referral Urgent Shoulder pain, unspecified chronicity, unspecified laterality Expected: 04/16/2025 (Approximate), Expires: 04/16/2026 Referral to Physical Therapy Outpatient Referral Routine Shoulder pain, unspecified chronicity, unspecified laterality Expected: 04/16/2025 (Approximate), Expires: 04/16/2026 documented as of this encounter Procedures Procedure Name Priority Date/Time Associated Diagnosis Comments XR SHOULDER 2+ VIEWS RIGHT Routine 04/16/2025 1:40 PM EDT Shoulder pain, unspecified chronicity, unspecified laterality documented in this encounter Results * XR Shoulder 2+ Views Right (04/16/2025 1:40 PM EDT) Anatomical Region Laterality Modality Upper Extremities, Shoulder Right Radi ographic Imaging 04/16/2025 1:40 PM EDT Narrative 04/16/2025 1:51 PM EDT [facility] [address] [place] [id number] XRay Report Signed Patient: Maida Mitchell I MR#: [id number] 71 : 1955 Acct:[id number] Age/Sex: 69 / F ADM Date: 04/16/25 [facility]: Nell Layton NP Ordering Physician: Nell Layton NP Date of Service: 04/16/25 Procedure(s): XR shoulder RT min 2V Accession Number(s): [id number] cc: Nell Layton CARE MANAGEMENT COORDINATOR; Amelia Montalvo DO Reason for Exam: sudden onset right shoulder pain with limited forward flexition. EXAMINATION: XR SHOULDER, RIGHT CLINICAL INFORMATION: sudden onset right shoulder pain with limited forward flexition. COMPARISON: None available. TECHNIQUE: AP external rotation, Grashey, scapular Y, and axillary views of the right shoulder. FINDINGS: Normal bone mineralization. No fracture, dislocation, or suspicious bone lesion. Normal alignment. The glenohumeral joint is normal. The AC joint demonstrates mild to moderate superior and undersurface spurring. There is a type I acromion. No undersurface spurring. The subacromial space is preserved. Remainder of the soft tissue and bony structures appear normal. XR/XR shoulder RT min 2V IMPRESSION: 1. No acute findings of the right shoulder. 2. Mild to moderate degenerative changes of the AC joint. Electronically signed by: Carroll Minor MD 04/16/2025 01:48 PM EDT Dictated By: Carroll Minor MD Signed By: <Electronically signed by Carroll Minor MD in OV> 04/16/25 1348 DD/ 1340 TD/TT: 04/16/25 1340 Adult School Teacher: Procedure Note Donotuseinterpreter, Image - 04/16/[address] [address] XRay Report Signed Patient: Maida Mitchell IMR#: [id number] 71 : 1955cct:[id number] Age/Sex: 69 / FADM Date: 04/16/25 Loc: [facility] Attending Dr: Nell Layton NP Ordering Physician: Nell Layton NP Date of Service: 04/16/25 Procedure(s): XR shoulder RT min 2V Accession Number(s): [id number] cc: Nell Layton CARE MANAGEMENT COORDINATOR; Amelia Montalvo DO Reason for Exam: sudden onset right shoulder pain with limited forwardflexition. EXAMINATION: XR SHOULDER, RIGHT CLINICAL INFORMATION: sudden onset right shoulder pain with limited forward flexition. COMPARISON: None available. TECHNIQUE: AP external rotation, Grashey, scapular Y, and axillary views of the right shoulder. FINDINGS: Normal bone mineralization. No fracture, dislocation, or suspicious bone lesion. Normal alignment. The glenohumeral joint is normal. The AC joint demonstrates mild to moderate superior and undersurface spurring. There is a type I acromion. No undersurface spurring. The subacromial space is preserved. Remainder of the soft tissue and bony structures appear normal. XR/XR shoulder RT min 2V IMPRESSION: 1. No acute findings of the right shoulder. 2. Mild to moderate degenerative changes of the AC joint. Electronically signed by: Carroll Minor MD 04/16/2025 01:48 PM EDT RP Dictated By: Carroll Minor MD Signed By: <Electronically signed by Carroll Minor MD in OV> 04/16/25 1348 DD/ 1340 TD/TT: 04/16/25 1340 Adult School Teacher: Nell Layton NP IMG XR PROCEDURES Final Result documented in this encounter Visit Diagnoses Diagnosis Shoulder pain, unspecified chronicity, unspecified laterality- Primary documented in this encounter Additional Health Concerns Assessment Noted Time PHQ-9 Depression Total Score: 16 025 12:09 PM EDT documented as of this encounter Care Teams Quality Review Specialist Relationship Specialty Start Date End Date Amelia Montalvo DO [address] [place] [address] PCP - General Family Medicine 06/23/12 documented as of this encounter
--- OUTSIDE RECORDS SUMMARY | 2025-04-16 16:11 | XMS_ITS | Encounter Summary ---
Author Organization [employer] Address [address] [facility] [address] [place] [address] Care Team Providers Care Supervisor Electronic Testing Name Role Phone Amelia Montalvo DO Primary Care Provider [phone] Encounter Details Date Type Department Care Team ([facility] st Contact Info) Description 04/16/2025 Results Follow-Up [facility] [address] [place] [address] Nell Layton NP [address] [place] [address] XR Shoulder 2+ Views Right Social History Tobacco Use Types Packs/Day Years [...] encounter Miscellaneous Notes * Telephone Encounter - Chacha Curran RN - 04/16/2025 3:01 PM EDT Incoming call from lead front end developer to report pt received a call from blue team nurses and is in the waiting room. Transcribing Machine Mechanic discussed with pt per covering provider Please let pt know there is some arthritis in the shoulder but no acute findings. Thank you . Pt verbalized understanding and denies any further questions or concerns at this time. * Telephone Encounter - Chacha Curran RN - 04/16/2025 2:40 PM EDT Tc to pt via [facility] ID: [id number] to let them know per covering provider Please let pt know there is some arthritis in the shoulder but no acute findings. Thank you . No answer, lvm to return calland ask to speak to blue team nurses. * Telephone Encounter - Chacha Curran RN - 04/16/2025 2:40 PM EDT ----- Message from Nell Layton sent at 04/16/2025 2:34 PM EDT ----- Please let pt know there is some arthritis in the shoulder but no acute findings. Thank you ----- Message ----- From: Mariaelena Benjamin Results In Sent: 04/16/2025 1:51 PM EDT To: Nell Layton NP * Result Encounter Note - Nell Layton NP - 04/16/2025 2:34 PM EDT Please let pt know there is some arthritis in the shoulder but no acute findings. Thank you documented in this encounter Plan of Treatment Upcoming Encounters Date Type Department Care Team (Late st Contact Info) Description 06/17/2025 10:00 AM EST Clinical Support [facility] [address] [place] [address] Mai Bishop RN 06/20/2025 1:30 PM EST Office Visit [facility] ADULT DENTAL [address] [place] [address] Cely Guy [address] [place] [address] documented as of this encounter Visit Diagnoses Not on filedocumented in this encounter Additional Health Concerns Assessment Noted Time PHQ-9 Depression Total Score: 16 025 12:09 PM EDT documented as of this encounter Care Teams Supervisor Electronic Testing Relationship Specialty Start Date End Date Amelia Montalvo DO [address] [place] [address] PCP - General Family Medicine 06/23/12 documented as of this encounter
--- OUTSIDE RECORDS SUMMARY | 2025-04-16 16:11 | XMS_ITS | Clinical Summary ---
Author Organization [facility] Address [address] [facility] [address] [place] [phone] Phone Care Team Providers Care Strainer Mill Operator Name Role Phone Unavailable Primary Care Provider [...] file Medical Devices Not on file Insurance [facility] MEDICARE REPLACEMENT JOSE [place] [id number] O MEDICARE REPLACEMENT MEDICARE REPLACEMENT MEDICARE REPLACEMENT MEDICARE REPLACEMENT [facility] MEDICARE REPLACEMENT Additional Source Comments The information contained in this document represents components of the legal health record. It is not the complete legal health record.[facility]
--- OUTSIDE RECORDS SUMMARY | 2025-04-16 16:11 | XMS_ITS | Encounter Summary ---
Author Organization [employer] Address [address] [facility] 7t [place] [address] Care Team Providers Care Bus Driver Supervisor Name Role Phone Amelia Montalvo DO Primary Care Provider [phone] Reason for Visit * Reason Comments Med Refill Encounter Details Date Type Department Care Team ([facility] st Contact Info) Description 03/14/2024 Refill [facility] MEDICINE [address] [place] [address] Amelia Montalvo DO [address] [place] [address] Other specified anxiety disorders Social History Tobacco [...] Description 06/17/2025 10:00 AM EST Clinical Support [facility] MEDICINE [address] [place] [address] Mai Bishop RN 06/20/2025 1:30 PM EST Office Visit [facility] ADULT DENTAL [address] [place] [address] Cely Guy [address] [place] [address] documented as of this encounter Visit Diagnoses Diagnosis Other specified anxiety disorders documented in this encounter Additional Health Concerns Assessment Noted Time PHQ-9 Depression Total Score: 18 024 2:12 PM EDT documented as of this encounter Care Teams Bus Driver Supervisor Relationship Specialty Start Date End Date Amelia Montalvo DO [address] [place] [address] PCP - General Family Medicine 06/23/12 documented as of this encounter
--- OUTSIDE RECORDS SUMMARY | 2025-04-16 16:11 | XMS_ITS | Encounter Summary ---
Author Organization [employer] Address [address] [facility] 7t [place] [address] Care Team Providers Care Laboratory Equipment Cleaner Name Role Phone Amelia Montalvo DO Primary Care Provider [phone] Encounter Details Date Type Department Care Team (Late st Contact Info) Description 10/26/2022 Orders Only [facility] MEDICINE [address] [place] [address] Michelle Vides LPN Social History Tobacco Use [...] Description 06/17/2025 10:00 AM EST Clinical Support [facility] MEDICINE [address] [place] [address] Mai Bishop RN 06/20/2025 1:30 PM EST Office Visit [facility] ADULT DENTAL [address] [place] [address] Cely Guy [address] [place] [address] documented as of this encounter Visit Diagnoses Not on filedocumented in this encounter Care Teams Laboratory Equipment Cleaner Relationship Specialty Start Date End Date Amelia Montalvo DO [address] [place] [address] PCP - General Family Medicine 06/23/12 documented as of this encounter
--- OUTSIDE RECORDS SUMMARY | 2025-04-16 16:11 | XMS_ITS | Encounter Summary ---
Author Organization [employer] Address [address] [facility] [address] [place] [address] Care Team Providers Care Bed Laborer Name Role Phone Amelia Montalvo DO Primary Care Provider [phone] Reason for Visit * Reason Onset Date Comments Pre-op clearance notes 08/26/2023 Encounter Details Date Type Department Care Team (Late st Contact Info) Description 08/26/2023 Telephone [facility] MEDICINE [address] [place] [address] Amelia Montalvo DO [address] [place] [address] Pre-op clearance notes Social History Tobacco Use [...] 08/15 and it can be faxed to [phone] documented in this encounter Plan of Treatment Upcoming Encounters Date Type Department Care Team (Late st Contact Info) Description 06/17/2025 10:00 AM EST Clinical Support [facility] MEDICINE [address] [place] [address] Mai Bishop RN 06/20/2025 1:30 PM EST Office Visit [facility] ADULT DENTAL [address] [place] [address] Cely Guy [address] [place] [address] documented as of this encounter Visit Diagnoses Not on filedocumented in this encounter Care Teams Bed Laborer Relationship Specialty Start Date End Date Amelia Montalvo DO [address] [place] [address] PCP - General Family Medicine 06/23/12 documented as of this encounter
--- OUTSIDE RECORDS SUMMARY | 2025-04-16 16:11 | XMS_ITS | Encounter Summary ---
Author Organization [employer] Address [address] [facility] 7t [place] [address] Care Team Providers Care Carry All Driver Name Role Phone Amelia Montalvo DO Primary Care Provider + [phone] Reason for Visit * Reason Comments Med Refill Encounter Details Date Type Department Care Team ([facility] st Contact Info) Description 11/15/2023 Refill [facility] MEDICINE [address] [place] [address] Charley Miller MD [address] [place] [address] Social History Tobacco Use Types Packs/Day Years [...] Description 06/17/2025 10:00 AM EST Clinical Support [facility] MEDICINE [address] [place] [address] Mai Bishop RN 06/20/2025 1:30 PM EST Office Visit [facility] ADULT DENTAL [address] [place] [address] Cely Guy [address] [place] [address] documented as of this encounter Visit Diagnoses Not on filedocumented in this encounter Care Teams Carry All Driver Relationship Specialty Start Date End Date Amelia Montalvo DO [address] [place] [address] PCP - General Family Medicine 06/23/12 documented as of this encounter
--- OUTSIDE RECORDS SUMMARY | 2025-04-16 16:11 | XMS_ITS | Encounter Summary ---
Author Organization [employer] [facility] Address [address] [facility] 7t [place] [address] Care Team Providers Care Gum Cook Name Role Phone Amelia Montalvo DO Primary Care Provider [phone] Encounter Details Date Type Department Care Team (Latest Contact Info) Description 06/04/2020 Abstract [facility] CONVERSIONS Dental, Provider, DDS Social History Tobacco [...] Description 06/17/2025 10:00 AM EST Clinical Support [facility] MEDICINE [address] [place] [address] Mai Bishop RN 06/20/2025 1:30 PM EST Office Visit [facility] ADULT DENTAL [address] [place] [address] Brooks Cely [address] [place] [address] documented as of this encounter Visit Diagnoses Not on filedocumented in this encounter Care Teams Gum Cook Relationship Specialty Start Date End Date Amelia Montalvo DO [address] [place] [address] PCP - General Family Medicine 06/23/12 documented as of this encounter
--- OUTSIDE RECORDS SUMMARY | 2025-04-16 16:11 | XMS_ITS | Encounter Summary ---
Author Organization [employer] Address [address] [facility] 7t [place] [address] Care Team Providers Care Power House Engineer Name Role Phone Sintia Montalvonifer Primary Care Provider [phone] Encounter Details Date Type Department Care Team (Late st Contact Info) Description 11/04/2022 Abstract [facility] MEDICINE [address] [place] [address] Amelia Montalvo DO [address] [place], [place] [phone] Social History Tobacco Use Types Packs/Day Years [...] Description 06/17/2025 10:00 AM EST Clinical Support [facility] MEDICINE [address] [place] [address] Mai Bishop RN 06/20/2025 1:30 PM EST Office Visit [facility] ADULT DENTAL [address] [place] [phone] Cely Guy [address] [place] [address] documented as of this encounter Visit Diagnoses Not on filedocumented in this encounter Care Teams Power House Engineer Relationship Specialty Start Date End Date Amelia Montalvo DO [address] [place] [address] PCP - General Family Medicine 06/23/12 documented as of this encounter
--- OUTSIDE RECORDS SUMMARY | 2025-04-16 16:11 | XMS_ITS | Encounter Summary ---
Author Organization [employer] Address [address] [facility] 7[address] [place] [address] Care Team Providers Care Bar Machine Operator Name Role Phone Amelia Montalvo DO Primary Care Provider [phone] Reason for Visit * Reason Comments Med Refill Encounter Details Date Type Department Care Team ([facility] st Contact Info) Description 12/04/[address] [facility] CHC MED & PEDS [address] [place] [address] Amelia Montalvo DO [address] [place], [place] [phone] Other specified anxiety disorders Social History Tobacco [...] AM EST Clinical Support [facility] MEDICINE [address] [place] [address] Mai Bishop RN 06/20/2025 1:30 PM EST Office Visit [facility] ADULT DENTAL [address] [place] [address] Cely Guy [address] [place] [address] documented as of this encounter Visit Diagnoses Diagnosis Other specified anxiety disorders documented in this encounter Additional Health Concerns Assessment Noted Time PHQ-9 Depression Total Score: 18 024 2:12 PM EDT documented as of this encounter Care Teams Bar Machine Operator Relationship Specialty Start Date End Date Amelia Montalvo DO [address] [place] [address] PCP - General Family Medicine 06/23/12 documented as of this encounter
--- OUTSIDE RECORDS SUMMARY | 2025-04-16 16:11 | XMS_ITS | Encounter Summary ---
Author Organization [employer] Address [address] [facility] 7t [place] [address] Care Team Providers Care Assembler Skylights Name Role Phone Amelia Montalvo DO Primary Care Provider [phone] Encounter Details Date Type Department Care Team (Late st Contact Info) Description 09/13/2022 Orders Only [facility] CHC MED & PEDS [address] [place] [address] Amelia Kemp LPN Social History Tobacco Use [...] Description 06/17/2025 10:00 AM EST Clinical Support [facility] MEDICINE [address] [place] [address] Mai Bishop RN 06/20/2025 1:30 PM EST Office Visit [facility] ADULT DENTAL [address] [place] [address] Cely Guy [address] [place] [address] documented as of this encounter Visit Diagnoses Not on filedocumented in this encounter Care Teams Assembler Skylights Relationship Specialty Start Date End Date Amelia Montalvo DO [address] [place] [address] PCP - General Family Medicine 06/23/12 documented as of this encounter
--- OUTSIDE RECORDS SUMMARY | 2025-04-16 16:11 | XMS_ITS | Encounter Summary ---
Author Organization [employer] [facility] Address [address] [facility] 7t [place] [address] Care Team Providers Care Bottom Sprayer Name Role Phone Amelia Montalvo DO Primary Care Provider [phone] Encounter Details Date Type Department Care Team (Latest Contact Info) Description 03/29/2022 Abstract [facility] CONVERSIONS Dental, Provider, DDS Social History [...] Description 06/17/2025 10:00 AM EST Clinical Support [facility] MEDICINE [address] [place] [address] Mai Bishop RN 06/20/2025 1:30 PM EST Office Visit [facility] ADULT DENTAL [address] [place] [address] Brooks Cely [address] [place] [address] documented as of this encounter Visit Diagnoses Not on filedocumented in this encounter Care Teams Bottom Sprayer Relationship Specialty Start Date End Date Amelia Montalvo DO [address] [place] [address] PCP - General Family Medicine 06/23/12 documented as of this encounter
--- OUTSIDE RECORDS SUMMARY | 2025-04-16 16:11 | XMS_ITS | Encounter Summary ---
Author Organization [employer] Address [address] [facility] 7t [place] [address] Care Team Providers Care Claim Examiner Name Role Phone KatiaAmelia Primary Care Provider [phone] Encounter Details Date Type Department Care Team (Late st Contact Info) Description 10/07/2022 Orders Only [facility] CHC MED & PEDS [address] [place], [place] [phone] Amelia Kemp LPN Social History Tobacco Use [...] 10:00 AM EST Clinical Support [facility] MEDICINE [address] [place] [address] Mai Bishop RN 06/20/2025 1:30 PM EST Office Visit [facility] ADULT DENTAL [address] [place] [address] Cely Guy [address] [place] [address] documented as of this encounter Procedures Procedure Name Priority Date/Time Associated Diagnosis Comments CT HEAD WO CONTRAST Routine 10/22/2022 1 0:52 AM EDT documented in this encounter Results * CT Head w/o Contrast (10/22/2022 10:52 AM EDT) Anatomical Region Laterality Modality Head, Neck Computed Tomogra phy 10/22/2022 10:5 2 AM EDT Narrative 11/02/2022 3:00 PM EDT [address] [address] [address] Scan Report Signed Patient: Maida Mitchell I MR#: [id number] : 1955 Acct:[id number] Age/Sex: 67 / F ADM Date: 10/22/22 Loc: HO.CT Attending Dr: Igor Landry MD Ordering Physician: IGOR LANDRY MD Date of Service: 10/22/22 Procedure(s): CT head/brain wo IV con Accession Number(s): [id number] cc: IGOR LANDRY MD EXAMINATION: CT HEAD [...] in OV> 11/02/22 1457 DD/ 1052 TD/TT: Senior Research Fellow: REGINA Procedure Note Donotuseinterpreter, Image - 11/02/[address] [address] [address] Scan Report Signed Patient: Maida Mitchell IMR#: [id number] : [id number]:[id number] Age/Sex: 67 / FADM Date: 10/22/22 Loc: HO.CT Attending Dr: Igor Landry MD Ordering Physician: IGOR LANDRY MD Date of Service: 10/22/22 Procedure(s): CT head/brain wo IV con Accession Number(s): [id number] cc: IGOR LANDRY MD EXAMINATION: CT HEAD [...] in OV> 11/02/22 1457 DD/ 1052 TD/TT: Senior Research Fellow: REGINA [facility] External Provider IMG CT PROCEDURES Edited Result - Final documented in this encounter Visit Diagnoses Not on filedocumented in this encounter Care Teams Claim Examiner Relationship Specialty Start Date End Date Amelia Montalvo DO [address] [place] [address] PCP - General Family Medicine 06/23/12 documented as of this encounter
--- OUTSIDE RECORDS SUMMARY | 2025-04-16 16:11 | XMS_ITS | Data Portability ---
Author Organization [facility], Main Office Address [address] [place] [address] Care Team Providers Care Player Services Representative Name Role Phone WESTLEY AMBROCIO - 2ND FLOOR OTHER DIANELYS IYER Primary Care Provider Assessment Encounter Date Assessment Date Assessment LastModified by Organization Details LastModified Time 01/11/2024 01/11/2024 I have seen and examined the patient independently and confirmed the findings above with the PEDORTHIST student note. Management plan discussed with the PEDORTHIST student personally. [email or web address] Not available 01/11/2024 13:09:31 Plan of Treatment [...] Recorded Time Chronic obstructi ve pulmonary disease 91936892 Active 2023 Jennifer Zaragoza NP [address], [address], [place], [address], [facility] 4 14:58:38 Restless legs syndrome 93794546 Active 2023 Jennifer Zaragoza NP [address], [address], [place], [address], [facility] 4 14:58:57 Osteoarth ritis 821456048 Active 2023 Jennifer Zaragoza NP [address], [address], [place], [address], [place] [facility] 4 14:59:07 Gastroeso phageal reflux disease 059891529 Active 2023 Jennifer Zaragoza NP [address], [address], [place], [address], [facility] 4 14:59:12 Abnormal small bowel motility 69337327 Active 2023 Jennifer Zaragoza NP [address], [address], [place], [address], [facility] 4 14:59:26 Allergic rhinitis 84854517 Active 2023 Jennifer Zaragoza NP [address], [place], [address], [facility] 4 14:59:38 Anxiety 12606375 Active 2023 Jennifer Zaragoza NP [address], [place], [address], [facility] 4 14:59:47 Total knee replaceme nt Active 2023 Jennifer Zaragoza NP [address], [address], [place], [address], [facility] 4 15:00:05 Pain of right knee region 190559172829 105 Active 2023 Jennifer Zaragoza NP [address], [place], [address], [facility] 4 15:02:07 Migraine 18871463 Completed 202312/23/2023 Jennifer Zaragoza NP [address], [place], [address], [facility] 4 15:02:20 Vertigo 060862700 Active 2023 Jennifer Zaragoza NP [address], [place], [address], [facility] 4 15:02:40 Asthenia 20445827 Active 2023 Jennifer Zaragoza NP [address], [place], [address], [facility] 4 15:03:52 Headache disorder 563429113 Active 2023 Omkar Clement MD [address], [address], [place], [address], [facility] 4 11:36:49 Primary osteoporo sis 392870711 Active 2023 Omkar Clement MD [address], [address], [place], [address], [facility] 4 11:37:06 Chronic idiopathi c constipat ion 01592569 Active 2023 Omkar Clement MD [address], [address], [place], [address], [facility] 4 11:37:24 Problem Notes None recorded. Procedures Surgical History Date Name Laterality Status Provider Name and Address Organization Details Recorded Time 2023 total replacement of left knee joint completed Jennifer Zaragoza NP [address], [address], [place], [address], [facility] 4 14:43:53 total replacement of right knee joint completed Jennifer Zaragoza NP [address], [address], [place], [address], [facility] 4 14:43:20 operation on external ear completed Jennifer Zaragoza NP [address], [address], [place], [address], [facility] 4 14:44:10 colonoscopy completed Jennifer Zaragoza NP [address], [address], [place], [address], [facility] 4 14:44:26 esophagogastroduodenoscopy completed Jennifer Zaragoza NP [address], [address], [place], [address], [facility] 4 14:44:38 Imaging Results None recorded. Procedure Notes None recorded. Medical Equipment None Reported. Allergies Allergen ID Allergen Name Allergen Category Reaction Reaction Severity Criticality Documentation Date Start Date Code Code System Note Provider Name and Address Organization Details Recorded Time 02770 vancomyci n medicatio n other Not available high 12/23/2023 02117 RxNorm redne ss swell ing Jennifer Zaragoza NP [address], [address], [place], [address], [facility] 4 14:51:32 40707 tetanus and diphtheri a toxoids Not available anaphylax is severe high 12/23/2023 fever Jennifer Zaragoza NP [address], [address], [place], [address], [facility] 4 14:52:13 Medications Not known to be on any medication Vitals Date Recorded Body weight Heart rate Respiratory rate Body temperature Oxygen saturation Oxygen saturation in Arterial blood by Pulse oximetry Systolic And Diastolic Provider Name and Address Organization Details Last Updated DateTime 4 99640.4 4 g 75 /min 18 /min 98 [degF] 97 % 97 % 120/70 mm[Hg] Jennifer Zaragoza NP [address], [address], [place], [address], [facility] 4 13:15:38 Date Recorded Body weight Heart rate Respiratory rate Body temperature Oxygen saturation Oxygen saturation in Arterial blood by Pulse oximetry Systolic And Diastolic Provider Name and Address Organization Details Last Updated DateTime 4 72486.4 4 g 64 /min 18 /min 97.6 [degF] 97 % 97 % 124/68 mm[Hg] Jennifer Zaragoza NP [address], [address], [place], [address], [facility] 4 18:04:40 Date Recorded Body weight Heart rate Respiratory rate Body temperature Oxygen saturation Oxygen saturation in Arterial blood by Pulse oximetry Systolic And Diastolic Provider Name and Address Organization Details Last Updated DateTime 4 43535.4 4 g 62 /min 16 /min 98.4 [degF] 98 % 98 % 124/68 mm[Hg] Jennifer Zaragoza NP [address], [address], [place], [address], [facility] 4 09:59:09 Date Recorded Heart rate Respiratory rate Body temperature Oxygen saturation Oxygen saturation in Arterial blood by Pulse oximetry Systolic And Diastolic Provider Name and Address Organization Details Last Updated DateTime 4 78 /min 18 /min 98.5 [degF] 95 % 95 % 118/70 mm[Hg] ANA BENJAMIN NP [address], [address], [place], [address], [facility] 4 09:45:01 Date Recorded Body weight Heart rate Respiratory rate Body temperature Oxygen saturation Oxygen saturation in Arterial blood by Pulse oximetry Systolic And Diastolic Provider Name and Address Organization Details Last Updated DateTime 4 79400.8 9 g 70 /min 18 /min 98.2 [degF] 99 % 99 % 129/74 mm[Hg] MELISSA SIMON [address], [address], [place], [address], [facility] 4 17:48:15 Social History Question Answer Notes LastModified by [employer] Details LastModified Time Tobacco Smoking Status Former Smoker Jennifer Zaragoza NP [address], [facility] [address], [place], [address], [facility] 12/23/2023 14:48:10 Do You Have An [...] Functional Status Question Answer Note LastModified by [employer] Details LastModified Time Do you use any [...] B, unspecified formulation 4 completed Della Jeet [facility] 12/23/2023 10:39:43 Hep B, unspecified formulation 5 completed Della Jeet [facility] 12/23/2023 10:39:51 Hep B, unspecified formulation 5 completed Della [facility] 12/23/2023 10:39:57 Pneumococcal conjugate PCV 13 9 completed Della Jeet [facility] 12/23/2023 10:40:57 pneumococcal polysaccharide PPV23 5 completed Della Jeet [facility] 12/23/2023 10:41:39 pneumococcal polysaccharide PPV23 2 completed Della [facility] 12/23/2023 10:41:50 pneumococcal polysaccharide PPV23 1 completed Della Jeet [facility] 12/23/2023 10:41:58 influenza, unspecified formulation 2 completed Della Jeet [facility] 12/23/2023 10:42:16 influenza, unspecified formulation 3 completed Della Jeet [facility] 12/23/2023 10:42:24 SARS-COV-2 (COVID-19) vaccine, UNSPECIFIED 1 completed Della Jeet [facility] 12/23/2023 10:42:40 SARS-COV-2 (COVID-19) vaccine, UNSPECIFIED 1 completed Della Jeet [facility] 12/23/2023 10:42:49 SARS-COV-2 (COVID-19) vaccine, UNSPECIFIED 4 completed Della Marcano [facility] 12/23/2023 10:42:56 zoster live 4 completed Della [facility] 12/23/2023 10:43:30 zoster recombinant 1 completed Della [facility] 12/23/2023 10:43:50 zoster recombinant 1 completed [facility] 12/23/2023 10:44:01 Past Encounters Encounter ID Performer Location Encounter Start Date Encounter Closed Date Diagnosis/Indication Diagnosis SNOMED-CT Code Diagnosis ICD10 Code Diagnosis IMO Codes Diagnosis Note [id number] Jennifer Zaragoza NP [address] [address] 12/23/2023 14:27:58 12/27/2023 10:39:41 Pain of right knee region 2690702215 46377 M25.561 sp 12/[address] [...] s/s infection Chronic ob structive pulmonary disease 77521781 J44.9 albuterol 2 puff po q 4 prnalb neb q 4hours prn sobflutica sone/salme terol 250/50 bidmonitor Restless l egs syndrome 73289717 G25.81 ropinirole 0.25 mg po qhsmonitor Osteoarthritis 164159173 M19.90 now with 2 knee surgeries to help with painwith 2 calcium citrate vit d 3 2 tab bidvit b12 1000 mcg dailyvit d 3 50 mcg po dialyalend ronate 70 mg q weekmonito r Abnormal s mall bowel motility 99072217 R19.8 bm todaymulti vit with iron qdfiber lax 625 mg po qddocusate 100 mg po bidbisacod yl 5 mg po qhsmonitor Gastroesop hageal reflux disease 385717474 K21.9 omeprazole 20 mg bidmetoclo pramide 10 mg po qidlinzess 290 mcgh cap q amfamotidi ne 40 mg po qhszofran 4 mg po q 8 prnmonitor Anxiety 96257266 F41.9 contmirtaz apine 22.5 mg po qhsclonaze ana 1 mg po bid prnmonitor Vertigo 568910543 R42 meclizine 25 mg po tid prn Allergic rhinitis 481048 04 J30.9 azelastine 137mcg intranasal daily both naresfluti casone 50 mcg 2 spray intranasal dailylorat idine 10 mg po dailyzafir lukast 20 mg po bidmonitor Asthenia 88788107 R53.1 pt ot treat and evalmonito r Migraine 10169985 G43.90 9 sumatripta n 100 mg po q 2-4 hours prn (nte 2 doses in 24 hours) [id number] Jennifer Zaragoza NP [address] [address] 12/26/2023 13:46:11 12/29/2023 09:48:46 Pain of right knee region 7457484579 74030 M25.561 sp 12/[address] [...] s/s infection Chronic ob structive pulmonary disease 30546540 J44.9 contalbute rol 2 puff po q 4 prnalb neb q 4hours prn sobflutica sone/salme terol 250/50 bidmonitor Restless l egs syndrome 96994327 G25.81 contcropin irole 0.25 mg po qhsmonitor Osteoarthritis 377245690 M19.90 now with 2 knee surgeries to help with painwith 2 calcium citrate vit d 3 2 tab bidvit b12 1000 mcg dailyvit d 3 50 mcg po dialyalend ronate 70 mg q weekmonito r Vertigo 145811280 R42 meclizine 25 mg po tid prn Allergic rhinitis 281630 04 J30.9 azelastine 137mcg intranasal daily both naresfluti casone 50 mcg 2 spray intranasal dailylorat idine 10 mg po dailyzafir lukast 20 mg po bidmonitor Asthenia 08413312 R53.1 pt ot treat and evalmonito r [id number] Omkar Clement MD [address] [address] 12/27/2023 11:30:56 12/29/2023 10:05:35 Osteoarthritis of left knee joint 8256288182 58041 M17.12 end stage OA left knee now s/p TKRASA 325 mg bid for dvt prophylaxi sfollow ortho recs and update with concernsPT OT Eval and treatmonit or for pain control Chronic ob structive pulmonary disease 03466557 J41.1 advair 250/50 bidmonitor respirator y status and albuterol utilizatio n Restless l egs syndrome 35682258 G25.81 ropinirole 0.25 mg po qhsmonitor for effect Vertigo 644524011 R42 carrying dxmeclizin e 25 mg po tid prnmonitor for sx and need for further workup Allergic rhinitis 862314 04 J30.2 appears to be significan t issue for patient at baselineco ntinue out patient medsavoid PO steroid given post op statusmoni tor sx Asthenia 75292082 R53.1 PT OT eval and treatmonit or fall risk Chronic id iopathic constipation 60406849 K59.04 appears with dysmotilit y disorderma intained onlinzess 290 mg qdmonitor for effectGI eval prn Primary osteoporosis 276 412155 M81.0 fosamax 70 mg q weekcontin ued Headache disorder 353287 009 G44.89 baseline migraine hxon imitrex prnadded to H Gastroesop hageal reflux disease 355598638 K21.9 famotidine 40 mg qdmonitor for sx relief Cellulitis of left lower limb 1967292196 3040479 L03.116 concern for infection at incision sitestarte d on keflexorth o updated and reeval not felt to be infectedab x d/c'ed [id number] Jennifer Zaragoza NP [facility] [address] [address] 12/28/2023 13:14:27 01/04/2024 15:54:46 Osteoarthritis of left knee joint 7857216177 15622 M17.12 end stage OA left knee now s/p TKRASA 325 mg bid for dvt prophylaxi s until 02/02follow ortho recsand update with concerns and monitor for infectionP T OT Eval and treatmonit or for pain control Cellulitis of left lower limb 1729309431 3784257 L03.116 concern for infection at incision sitestarte d on keflexorth o updated and reeval not felt to be infectedab x d/c'ed on 12/26ice prnwbc is 11.2 on 12/26 elevated, however site is less warm and decreased swellingmo nitor closely for infection and reeval labs on tuesday Asthenia 55825527 R53.1 PT OT eval and treatmonit or fall risk Restless l egs syndrome 64450964 G25.81 ropinirole 0.25 mg po qhsmonitor for effect [id number] Jennfier Zaragoza NP [facility] [address] 01/04/2024 16:01:53 01/10/2024 09:58:03 Osteoarthritis of left knee joint 3501661030 70565 M17.12 end stage OA left knee now s/p TKRASA 325 mg bid for dvt prophylaxi s until 02/02follow ortho recsand update with concerns and monitor for infectionP T OT Eval and treatmonit or for pain control Asthenia 57910842 R53.1 PT OT eval and treatmonit or fall risk Restless l egs syndrome 22463596 G25.81 ropinirole 0.25 mg po qhsmonitor for effect Dysuria 29208533 R30.0 pt with report of dysuria and frequencyu rinalysis with c & spyridium 200 mg po tid prn dysuria to start after sample is obtainedpt educated about orange discolorat ion to urinemonit or ua and consider abx if needed [id number] Jennifer Zaragoza NP [facility] [address] 01/06/2024 09:58:30 01/10/2024 11:28:47 Dysuria 48957247 R30.0 UTI ruled outpt with report of dysuria and frequency, states she has not had bowel movement in a few dayssee constipati on01/05 urinalysis with c & s with culture showing no infection dc pyridium 200 mg po tid prnmonitor ua and consider abx if needed Osteoarthr itis of left knee joint 9958003756 47701 M17.12 end stage OA left knee now s/p TKRpt reports ortho visit yesterday and removed suturesste ri strips in place today.nsg to obtain consult info from orthoASA 325 mg bid for dvt prophylaxi s until 02/02foll ortho recsand update with concerns and monitor for infectionP T OT Eval and treatmonit or for pain control Asthenia 91950263 R53.1 PT OT eval and treatmonit or fall risk Abnormal s mall bowel motility 66853611 R19.8 no bm in a few daysmultiv it with iron qdfiber lax 625 mg po qddocusate 100 mg po bidbisacod yl 5 mg po qhs01/05inc rease senna to 2 tabs per daygive mom 30cc todaymonit or [id number] ANA BENJAMIN NP [facility] [address] 01/11/2024 09:00:48 01/19/2024 12:49:58 Abnormal small bowel motility 55493178 R19.8 no bm in a few days [...] qd Add miralax dailyMonit or bowels Dysuria 61308670 R30.0 UTI ruled outpt had reported dysuria and frequency on 01/05 - no complaints today, seems resolved urinalysis with c & s with culture neg01/05 dc pyridium 200 mg po tid prnmonitor sx. Osteoarthr itis of left knee joint 2595584719 07876 M17.12 end stage OA left knee now [...] home Sat. 7/6monitor for pain control Asthenia 44420562 R53.1 PT OT eval and treatSee above, meeting rehab goals, goal home 7/6monitor fall risk [id number] MELISSA SIMON [facility] [address] [address] 01/13/2024 11:41:32 01/19/2024 13:26:02 Osteoarthritis of left knee joint 4635883572 07342 M17.12 end stage OA left knee now s/p TKRASA 325 mg bid for dvt prophylaxi sfollow up with ortho outpatient Restless l egs syndrome 22974353 G25.81 ropinirole 0.25 mg po qhs Chronic ob structive pulmonary disease 83621156 J41.1 advair 250/50 bid Vertigo 569364689 R42 carrying dxmeclizin e 25 mg po tid prnmonitor for sx and need for further workupfoll ow up outpatient Allergic rhinitis 118114 04 J30.2 appears to be significan t issue for patient at baselineco ntinue out patient medsavoid PO steroid given post op statusmoni tor sx Chronic id iopathic constipation 89524052 K59.04 appears with dysmotilit y disorderma intained onlinzess 290 mg qdmonitor for effectGI eval prn Primary osteoporosis 276 503025 M81.0 fosamax 70 mg q weekcontin ued Headache disorder 087273 009 G44.89 baseline migraine hxon imitrex prnadded to PMH Gastroesop hageal reflux disease 574378482 K21.9 famotidine 40 mg qdmonitor for sx relief Abnormal s mall bowel motility 63848657 R19.8 Continue:l inzess 290 mg qd for IBSfiber lax 625 mg po qd docusate 100 mg po bid bisacodyl 10 mg po qhs senna 2 tabs qd miralax 17 gn daily Anxiety 45157237 F41.9 contmirtaz apine 22.5 mg po qhsclonaze ana 1 mg po bid prnmonitor Osteoarthritis 780073192 M19.90 now with 2 knee surgeries to [...] Kimble Member ID Guarantor Name 01/19/2024 1 [facility] - DOS ON OR AFTER 2022 - MEDICARE ADVANTAGE [place] (MEDICARE REPLACEMENT/ADV ANTAGE - PPO) Maida Mitchell [id number] Maida Mitchell Notes Date Note Type Note Provider Name and Address Organization Details Recorded Time 12/28/2023 text/html Pt is seen for an acute rounding visit. She is a 68 yo female admit from hospital after presenting with end stage OA left knee for TKR having failed conservative treatment without complications in hospital on ASA 325 mg bid for DVT prophylaxis. [facility] care felt to [...] any other concerns or complaints today. Jennifer Zaragoza NP [address], [address], [place], [address], [facility] 12/28/2023 13:29:09 01/04/2024 text/html Pt is seen for an acute rounding visit. She is a 68 yo female admit from hospital after presenting with end stage OA left knee for TKR having failed conservative treatment without complications in hospital on ASA 325 mg bid for DVT prophylaxis. She is at [facility] for rehab and continued care felt to [...] No cva tenderness. Jennifer Zaragoza NP [address], [address], [place], [address], [facility] 01/04/2024 18:17:27 01/06/2024 text/html Pt is seen for an acute rounding visit. She is a 68 [...] and well approximated. Jennifer Zaragoza NP [address], [address], [place], [address], [facility] 01/06/2024 10:22:58 01/11/2024 text/html Pt is seen for an acute rounding visit. She is a 68 [...] does have asthma/COPD). ANA BENJAMIN NP [address], [address], [place], [address], [facility] 01/11/2024 13:15:56 01/13/2024 text/html Maida is a 68 yr old female seen today for discharge on 01/14/24. Admitted to [facility] from hospital after presenting with end [...] she will be receiving support services with [facility]. she can be discharge to home with medications, PT/OT and vna services. PMH is significant for OA,anxiety,RLS,gerd ,copd,chronic constipation,vertig o migraine LARA, osteoporosis MELISSA SIMON [address], [address], [place], [address], [facility] 01/13/2024 17:48:53 OBGyn Episode No OBEpisode recorded.
--- OUTSIDE RECORDS SUMMARY | 2025-04-16 16:11 | XMS_ITS | Encounter Summary ---
Author Organization [facility] Address [address] [place] [address] Care Team Providers Care Rubber Flap Tuber Machine Operator Name Role Phone Amelia Montalvo DO Primary Care Provider [phone] Encounter Details Date Type Department Care Team (Late st Contact Info) Description 10/21/2023 Orders Only [facility] [address] [place] [address] Provider, MD Santos Social History Tobacco Use [...] 10:00 AM EST Clinical Support [facility] [address] [place] [address] Mai Bishop RN 06/20/2025 1:30 PM EST Office Visit [facility] [address] [place] [address] Cely Guy [address] [place] [address] documented as of this encounter Procedures Procedure Name Priority Date/Time Associated Diagnosis Comments HM COLONOSCOPY Routine 05/31/2019 10:01 AM EST documented in this encounter Results * Hm Colonoscopy (05/31/2019 10:01 AM EST) us Historical Provider MD HEALTH MAINTENANCE Final Result documented in this encounter Visit Diagnoses Not on filedocumented in this encounter Care Teams Rubber Flap Tuber Machine Operator Relationship Specialty Start Date End Date Amelia Montalvo DO [address] [place] [address] PCP - General Family Medicine 06/23/12 documented as of this encounter
--- OUTSIDE RECORDS SUMMARY | 2025-04-16 16:11 | XMS_ITS | Encounter Summary ---
Author Organization [facility] Address [address] [place] [address] Care Team Providers Care Head Charger Name Role Phone Ameila Montalvo DO Primary Care Provider + [phone] Reason for Visit * Reason Comments Med Refill Encounter Details Date Type Department Care Team (Late st Contact Info) Description 12/07/2022 Refill [facility] [address] [place] [address] Iram Ascencio FNP Social History Tobacco Use [...] Description 06/17/2025 10:00 AM EST Clinical Support [facility] [address] [place] [address] Mai Bishop RN 06/20/2025 1:30 PM EST Office Visit [facility] [address] [place] [address] Cely Guy [address] [place] [address] documented as of this encounter Visit Diagnoses Not on filedocumented in this encounter Care Teams Head Charger Relationship Specialty Start Date End Date Amelia Montalvo DO [address] [place] [address] PCP - General Family Medicine 06/23/12 documented as of this encounter
--- OUTSIDE RECORDS SUMMARY | 2025-04-16 16:11 | XMS_ITS | Encounter Summary ---
Author Organization [employer] Address [address] [facility] [address] [place] [address] Care Team Providers Care Director [place] Name Role Phone Amelia Montalvo DO Primary Care Provider [phone] Reason for Visit * Reason Comments Med Refill Encounter Details Date Type Department Care Team ([facility] st Contact Info) Description 04/14/2025 Refill [facility] [address] [place] [address] Amelia Montalvo DO [address] [place] [address] Social History Tobacco Use Types Packs/Day Years [...] your housing situation today? I have erika ramas 01/08/[address] you li [...] Description 06/17/2025 10:00 AM EST Clinical Support [facility] [address] [place] [address] Mai Bishop RN 06/20/2025 1:30 PM EST Office Visit [facility] [address] [place] [address] Cely Guy [address] [place] [address] documented as of this encounter Visit Diagnoses Not on filedocumented in this encounter Additional Health Concerns Assessment Noted Time PHQ-9 Depression Total Score: 16 025 12:09 PM EDT documented as of this encounter Care Teams Director [place] Relationship Specialty Start Date End Date Amelia Montalvo DO [address] [place] [address] PCP - General Family Medicine 06/23/12 documented as of this encounter
--- OUTSIDE RECORDS SUMMARY | 2025-04-16 16:11 | XMS_ITS | Clinical Summary ---
Author Organization [employer] Address [address] [place] [address] 7[address] [place] [address] Care Team Providers Care Systems Auditor Name Role Phone Amelia Montalvo DO Primary Care Provider + [phone] Allergies Active Allergy Reactions Criticality Noted Date [...] at bedtime. 30 tablet 11 023 Active Additional Information Patient not taking.Reported on 03/19/2025 ondansetron ODT (Zofran-ODT) 4 MG disintegrating tablet Take 1 tablet by mouth if needed each day for nausea. Active SUMAtriptan (Imitrex) 50 MG tablet Take 1 tablet by mouth if needed each day for migraine. Active Diclofenac Sodium 1 % gel Apply 2 g topically if needed in the morning, at noon, in the evening, and at bedtime (pain). 150 g 3 Active Additional Information Patient not taking.Reported on 03/19/2025 Multiple Vitamins-Iron (Tab-A-Aurea/Iron) tablet TAKE 1 TABLET [...] MOUTH AFTER USING. 60 each 3 Active ibuprofen 400 MG tablet Take [...] up to 10 days. 30 tablet Active Calcium Citrate-Vitamin D 200-6.25 MG-MCG tablet TAKE 2 TABLETS BY MOUTH TWICE DAILY IN THE MORNING AND EVENING 120 tablet Active omeprazole (PriLOSEC) [address] capsule TAKE 1 CAPSULE BY MOUTH TWICE DAILY IN THE MORNING AND IN THE EVENING BEFORE MEALS 60 capsule Active cholecalciferol VITAMIN D (Vitamin D-3) 50 [...] 30 minutes 4 tablet 5 025 Active Additional Information Patient not taking.Reported on 03/19/2025 Azelastine HCl 137 MCG/SPRAY solution INHALE 1 [...] NOSTRIL ONCE DAILY 48 g 025 Active albuterol (2.5 MG/3ML) 0.083% nebulizer solutionIndicatio ns:COPD exacerbation (CMS/HCC) ([facility]) INHALE 1 AMPULE USING A NEBULIZER EVERY 4 HOURS NEEDED FOR WHEEZING OR SHORTNESS OF BREATH 90 mL 1 025 Active loratadine (Claritin) 10 MG tablet TAKE 1 TABLET BY MOUTH EVERY MORNING 90 tablet 1 025 Active zafirlukast (Accolate) 20 MG tablet TAKE 1 TABLET BY MOUTH TWICE DAILY IN THE MORNING AND IN THE EVENING AFTER MEALS 180 tablet 1 025 Active clonazePAM (KlonoPIN) 1 MG tabletIndications :Other specified anxiety disorders TAKE 1 TABLET BY MOUTH TWICE DAILY FOR 28 DAYS 56 tablet 025 2024 Active baclofen (Lioresal) 10 MG tablet TAKE 1/2 TABLET BY MOUTH THREE TIMES DAILY NEEDED FOR MUSCLE SPASMS 30 tablet 1 Active naproxen (Naprosyn) 500 MG tabletIndications :Shoulder pain, unspecified chronicity, unspecified laterality Take 1 tablet (500 mg) by mouth 2 times daily for 10 days. 20 tablet 025 2024 Active traMADol (Ultram) 50 MG tabletIndications :Shoulder pain, unspecified chronicity, unspecified laterality Take 1 tablet (50 mg) by mouth every 8 (eight) hours if needed for severe pain for up to 3 days. 10 tablet 025 2024 Active acetaminophen (Tylenol 8 Hour) 650 MG ER tabletIndications :Shoulder pain, unspecified chronicity, unspecified laterality Take 1 tablet (650 mg) by mouth every 8 (eight) hours if needed for mild pain. Do not crush, chew, or split. 60 tablet 3 Active baclofen (Lioresal) 10 MG tablet TAKE 1/2 TABLET BY MOUTH THREE TIMES DAILY NEEDED FOR MUSCLE SPASMS 30 tablet 1 024 2024 Discontinued loratadine (Claritin) 10 MG tablet TAKE 1 TABLET BY MOUTH EVERY MORNING 90 tablet 1 025 2024 Discontinued zafirlukast (Accolate) 20 MG tablet TAKE 1 TABLET BY MOUTH TWICE DAILY IN THE MORNING AND IN THE EVENING AFTER MEALS 180 tablet 1 025 2024 Discontinued acetaminophen (Tylenol 8 Hour) 650 MG ER tablet Take 1 tablet (650 mg) by mouth every 8 (eight) hours if needed for mild pain. Do not crush, chew, or split. 60 tablet 3 025 2024 Discontinued(R eorder (will not trigger notification to Pharmacy)) clonazePAM (KlonoPIN) 1 MG tabletIndications :Other specified anxiety disorders TAKE 1 TABLET BY MOUTH TWICE DAILY FOR 28 DAYS 56 tablet 025 2024 Discontinued Hospital, Clinic, or Other Facility Administered Medication Ordered Dose Route Frequency Start Date End Date Status albuterol (2.5 MG/3ML) 0.083% nebulizer solution 2.5 mgIndications:COPD exacerbation (CMS/HCC) (HCC) 2.5 mg NEBULIZATION Once 10/23/2024 Active Active Problems Problem Noted Date Diagnosed Date Shoulder pain 04/16/2025 Assessment & Plan (04/16/2025 12:35 PM EDT): Orders: XR Shoulder 2+ Views Right; Future [...] pain. Do not crush, chew, or split. Long-term current use of benzodiazepine 12/07/19 Partial edentulism 12/06/2024 Flu 10/18/2024 Assessment & Plan (10/18/2024 1:27 PM EDT): Faint wheezing on exam. No evidence of acute respiratory distress. 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 Symptoms mild. No evidence of dehydration. -Prescribed predniSONE (Deltasone) 20 MG taper. -Supportive care advised. -Isolation recommendations discussed. Acute exacerbation of COPD with asthma ([facility]) 10/18/2024 Assessment & Plan (10/18/2024 1:25 PM EDT): Faint diffuse wheezing on exam. Suspect acute asthma/LOZENGE MAKER HELPER exacerbation. -prescribed predniSONE (Deltasone) 20 MG taper. 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 Referred for stress test and TTE. Per pt to be performed tests this month. -In current evaluation by customer retention specialist for Atypical chest pain but difficult to [...] exertion 10/04/2022 11/06/19 23 Influenza-like symptoms 10/04/2022 04/2 02/2023 Seasonal allergies 12/15/2017 3 Gingivitis 10/04/2013 11/05/2022 Encounters Date Type Department Care Team Description 04/16/2025 1:00 PM EDT Office Visit [facility] [address] [place] [phone] Nell Layton NP Shoulder pain, unspecified chronicity, unspecified laterality (Primary Dx) 04/16/2025 Results Follow-Up [facility] [address] [place] [address] Nell Layton, KERLINE XR Shoulder 2+ Views Right 04/16/2025 Travel 04/14/2025 Refill [facility] [address] [place] [address] Amelia Montalvo DO 04/01/2025 Refill [facility] [address] [place] [address] Amelia Montalvo, Other specified anxiety disorders 03/24/2025 Refill [facility] [address] [place] [address] Amelia Montalvo DO 03/19/2025 11:00 AM EDT Office Visit [facility] [address] [place] [address] Kristian Mendoza DDS Partial edentulism, unspecified edentulism class (Primary Dx) 03/18/2025 11:30 AM EDT Clinical Support [facility] [address] [place] [address] Mai Bishop RN Long-term current use of benzodiazepine (Primary Dx) 03/18/2025 Telephone [facility] [address] [place] [phone] Mai Bishop, JAMAAL CEMENT OR CONCRETE FINISHING SUPERVISOR Agreement renewed today; UTOX Neg BZO 03/18/2025 Travel 03/15/2025 Refill [facility] [address] [place] [address] Amelia Montalvo, COPD exacerbation ([facility]) 03/12/2025 Telephone [facility] [address] [place] [address] Mai Bishop RN NCNS CEMENT OR CONCRETE FINISHING SUPERVISOR Renewal today 03/06/2025 Refill [facility] [address] [place], [place] [phone] Amelia Montalvo, Other specified anxiety disorders 03/04/2025 Telephone [facility] [address] [place] [address] Cely Guy 02/21/2025 Refill [facility] [address] [place] [address] Amelia Montalvo DO 02/08/2025 Telephone [facility] [address] [place], [place] [phone] Francine Alvarado OD 01/28/2025 Refill [facility] [address] [place] [address] Amelia Montalvo, Other specified anxiety disorders 01/23/2025 Refill [facility] [address] [place], [place] [phone] Amelia Montalvo, Chronic migraine without aura without status migrainosus, not intractable from Last 3 Months Immunizations Immunization Administration Dates Next Due Hep B, Unspecified 10/30/2014,08/01/2014, 014 Hep B, adult 10/30/2014,08/01/2014,06/27/2014 Influenza High-dose Quadriva lent Preservative Free 05/13/2023,03/26/2022 Influenza injectable quadriv alent IIV4 with preservative 04/11/2018,03/24/2017,03/10/2016 Influenza injectable quadriv alent preservative free 07/01/2021,04/04/2019,02/27/2016 Influenza, High Dose Seasona l, Preservative Free 04/16/2024 Influenza, Split (incl. yolanad fied surface antigen) 02/23/2014,03/14/2012 Influenza, Unspecified 03/26/2022 [...] Mass Index 25.24 04/16/2025 12:06 PM EDT Plan of Treatment Upcoming Encounters Date Type Department Care Team (Late st Contact Info) Description 06/17/2025 10:00 AM EST Clinical Support [facility] [address] [place] [address] Mai Bishop RN 06/20/2025 1:30 PM EST Office Visit [facility] [address] [place] [address] Farhat Guyaris [address] [place] [address] Health Maintenance Due Date Last Done Comments CT Colonography 1955 FIT DNA/Cologuard 1955 FIT 1955 FOBT 1955 Sigmoidoscopy 1955 DTaP/Tdap/Td Vaccines (1 - Tdap) 1972 Mammogram 1993 Dental Prophylaxis 11/06/2024 05/07/2024, 0 12/07/2022, 03/29/2022, Additional history exists Dental X-Ray: Full Mouth 03/30/2025 03/29/2022, 12/09 Dental Oral Exam 05/09/2025 11/06/2024, , 12/07/2022, Additional history exists Depression Monitoring 07/11/2025 01/08/2025, 025 Dental X-Ray: Bitewings 11/07/2025 11/07/19 25, 02/23/2024, 12/07/2022, Additional history exists Alcohol/Substance Use Screening 01/08/2026 01/08/2025 SDOH Screening 01/08/2026 01/08/2025 Diabetes: Hemoglobin A1C 01/09/2026 025, 01/31/2024, 11/05/2022, Additional history exists Tobacco Screening 03/19/2026 03/19/2025 Colonoscopy 05/31/2029 05/31/2019 Colorectal Cancer Screening 05/31/2029 Hepatitis B Vaccines Completed 10/30/2014, 10/30/2014, 08/01/2014, Additional history exists Hepatitis C Screening Completed 01/06/2021 Zoster Vaccines Completed 03/02/2021, 12/10, 04/07/2014 Pneumococcal Vaccine: 50+ Years Completed 07/01/2021, 08/21/2018, 05/02/2012, Additional history exists RSV Patients and Patients Aged 60 years or older Completed 03/05/2024 COVID-19 Vaccine Completed 03/29/2025, 01/2024, 08/15/2023, Additional history exists Influenza Vaccine Completed 03/29/2025, , 05/13/2023, Additional history exists HIB Vaccines Aged Out [...] EDT Shoulder pain, unspecified chronicity, unspecified laterality 31,30,29,20,19,18 MANDIBULAR PARTIAL DENTURE - RESIN BASE (INCLUDING, RETENTIVE/CLASPING MATERIALS, RESTS, AND TEETH) Routine 03/19/2025 11:00 AM EDT CASE PRESENTATION, DETAILED AND EXTENSIVE TREATMENT PLANNING Routine 03/19/2025 11:00 AM EDT DRUG MONITORING, BENZODIAZEPINES, QUANTITATIVE, URINE Routine 03/18/2025 12:08 PM EDT Long-term current use of benzodiazepine POCT OSMIN-14 URINE DRUG SCREEN Routine 03/18/2025 12:00 PM EDT Long-term current use of benzodiazepine HEMOGLOBIN A1C Routine 01/09/2025 8:19 AM EDT Anxiety Chronic obstructive pulmonary disease, unspecified COPD type (CMS/HCC) Chronic allergic rhinitis Chronic migraine Anemia, unspecified type Chronic gastroesophageal reflux disease Chronic constipation Osteoporosis, unspecified osteoporosis type, unspecified pathological fracture presence Chronic pain of left knee Status post total left knee replacement Palpitations Chest wall pain Healthcare maintenance BITEWINGS - 4 RADIOGRAPHIC IMAGES [...] Relevant to Health Maintenance Results * XR Shoulder 2+ Views Right (04/16/2025 1:40 PM EDT) Anatomical Region Laterality Modality Upper Extremities, Shoulder Right Radi ographic Imaging 04/16/2025 1:40 PM EDT Narrative 04/16/2025 1:51 PM EDT [place] [address] XRay Report Signed Patient: Maida Mitchell I MR#: [id number] 71 : 1955 Acct:[id number] Age/Sex: 69 / F ADM Date: 04/16/25 Loc: HO.[facility] Attending Dr: Nell Layton NP Ordering Physician: Nell Layton NP Date of Service: 04/16/25 Procedure(s): XR shoulder RT min 2V Accession Number(s): [id number] cc: Nell Layton NP; Amelia Montalvo DO Reason for Exam: sudden [...] 04/16/25 1348 DD/ 1340 TD/TT: 04/16/25 1340 Glass Pulverizer Equipment Operator: Procedure Note Donotuseinterpreter, Image - 04/16/2025 [place] [address] XRay Report Signed Patient: Maida Mitchell [facility]#: [id number] [birth year] : 1955cct:[id number] Age/Sex: 69 / FADM Date: 04/16/25 Loc: .[facility] Attending Dr: Nell Layton NP Ordering Physician: Nell Layton NP Date of Service: 04/16/25 Procedure(s): XR shoulder RT min 2V Accession Number(s): [id number] cc: Nell Layton NP; Amelia Montalvo DO Reason for Exam: sudden [...] 04/16/25 1348 DD/ 1340 TD/TT: 04/16/25 1340 Glass Pulverizer Equipment Operator: Nell Layton NP IMG XR PROCEDURES Final Result * Drug Monitoring, Benzodiazepines, Quantitative, Urine (03/18/2025 12:08 PM EDT) Nordiazepam, GCMS Urine NEGATIVE [facility] Comment:CUTOFF 50 NG/MLPERFO RMING SITE:Pharmacy Development [facility], [address] [place], [place] [phone] Roving Frame Tender: APPLE WALSH MD, CLIA:[id number] Oxazepam, GCMS Urine NEGATIVE [facility] Comment:CUTOFF 50 NG/ML Lorazepam GCMS Urine NEGATIVE [facility] Comment:CUTOFF 50 NG/ML Alprazolam, GCMS Urine NEGATIVE [facility] Comment:CUTOFF 25 NG/ML Alphahydroxytriazolam, GCMS Ur NEGATIVE [facility] Comment:CUTOFF 50 NG/ML Temazepam, GCMS Urine NEGATIVE [facility] Comment:CUTOFF 50 NG/ML Alphahydroxymidazolam,GC MS Ur NEGATIVE [facility] Comment:CUTOFF 50 NG/ML Aminoclonazepam, GCMS Urine 188 [facility] Comment:CUTOFF 25 NG/ML Flurazepam Metabolite,GCMS Ur NEGATIVE [facility] Comment:CUTOFF 50 NG/ML Benzodiazepines Comments SEE NOTE [facility] Comment:This drug testing is for medical treatment only. Analysiswas performed as non-forensic testing and these resultsshould be used only by healthcare providers to renderdiagnosis or treatment, or to monitor progress of medicalconditions.Aminoclonazepam detected is consistent with the use of thedrug Clonazepam.Confirmation tests were developed and their analyticalperformance characteristics have been determined by [employer]. It has not been cleared or approved by the FDA.This assay has been validated pursuant to the CLIAregulations and is used for clinical purposes.Healthcare Providers needing Interpretation assistance,please contact us at [phone] ( ) M-F,8am to 10pm EST Urine (Urine, Random) 03/18/2025 12:08 PM EDT 03/18/2025 4:12 PM EDT Amelia Montalvo DO LAB URINE ORDERABLES Final R esult [facility] [address] [place] [phone] * (ABNORMAL) POCT OSMIN-14 Urine Drug Screen [...] - 03/18/2025 12:00 PM EDT UTOX cup Lot#[id number] Exp. 04/16/26 Internal Pass Control Amelia Montalvo DO POINT OF CARE TEST ENTER/MAKAYLA T ORDERABLES Final Result * Hemoglobin A1c (01/09/2025 8:19 AM EDT) Hemoglobin A1c 5.7 <6.0 % [facility] Comment:Hemoglobin A1C Refer ence Range Adults: 4.8 - 6.0 % Non diabetic: < 6.0 % Goal: < 7.0 %Additional Action Suggested: > 8.0 %Note: Hemoglobin A1c results are invalid for patients with abnormal amounts of HbF. Blood transfusions may impact the HbA1c concentration in the patient sample. Estimated Average Glucose 117 mg/dL [facility] Comment:eAG = Estimated ave rage glucose which is %A1C expressed asaverage glucose, using the formula of the V6T-MlgfxhzTcdzcrq Glucose study (ADAG), Diabetes Care, Vol.31,#8,Feb. 2007 Blood Venous blood specimen / Unknown 01/09/2025 8:19 AM EDT 01/09/2025 11:22 AM EDT Amelia Montalvo DO LAB BLOOD ORDERABLES Final R esult Performing Organization Address City/State/[facility] Co de Phone Number [facility] [address] [place] [phone] * HEPATITIS C AB W/REFL TO [...] a test for HCV RNA (test code 47812) is suggested. For additional information please refer to http://education.CareerImp/faq/MMU78o9 (This link is being provided for informational/ educational purposes only.) 01/06/2021 8:12 AM EDT Amelia Montalvo DO HISTORICAL/NON ORDERABLE LAB S Final Result [facility] [address] [place] [address], * Hm Colonoscopy (05/31/2019 10:01 AM EST) us Historical Provider MD HEALTH MAINTENANCE Final Result from Last 3 Months or Most Recently Relevant to Health Maintenance Insurance [facility] [employer] (HMO D-SNP) [facility] Care Teams Systems Auditor Relationship Specialty Start Date End Date Amelia Montalvo DO [address] [place] [phone] PCP - General Family Medicine 06/23/12
--- OUTSIDE RECORDS SUMMARY | 2025-04-16 16:11 | XMS_ITS | Encounter Summary ---
Author Organization [employer] [facility] Address [address] [facility] [address]t [place] [address] Care Team Providers Care Stretching Machine Tender Frame Name Role Phone Amelia Montalvo DO Primary Care Provider [phone] Encounter Details Date Type Department Care Team (Latest Contact Info) Description 08/10/2018 Abstract [facility] CONVERSIONS Dental, Provider, DDS Social History Tobacco [...] Description 06/17/2025 10:00 AM EST Clinical Support [facility] [address] [place] [address] Mai Bishop RN 06/20/2025 1:30 PM EST Office Visit [facility] [address] [place] [address] Brooks, Cely [address] [place] [address] documented as of this encounter Visit Diagnoses Not on filedocumented in this encounter Care Teams Stretching Machine Tender Frame Relationship Specialty Start Date End Date Amelia Montalvo DO [address] [place] [address] PCP - General Family Medicine 06/23/12 documented as of this encounter
--- OUTSIDE RECORDS SUMMARY | 2025-04-16 16:11 | XMS_ITS | Encounter Summary ---
Author Organization [employer] Address [address] [facility] [address]t [place] [address] Care Team Providers Care Woodwork Salvage Inspector Name Role Phone Amelia Montalvo DO Primary Care Provider [phone] Encounter Details Date Type Department Care Team (Latest Contact Info) Description 04/16/2025 Travel Social History Tobacco Use Types Packs/Day [...] Description 06/17/2025 10:00 AM EST Clinical Support [facility] [address] [place] [address] Mai Bishop RN 06/20/2025 1:30 PM EST Office Visit [facility] [address] [place] [address] Cely Guy [address] [place] [address] documented as of this encounter Visit Diagnoses Not on filedocumented in this encounter Additional Health Concerns Assessment Noted Time PHQ-9 Depression Total Score: 16 025 12:09 PM EDT documented as of this encounter Care Teams Woodwork Salvage Inspector Relationship Specialty Start Date End Date Amelia Montalvo DO [address] [place] [address] PCP - General Family Medicine 06/23/12 documented as of this encounter
--- OUTSIDE RECORDS SUMMARY | 2025-04-16 16:11 | XMS_ITS | Encounter Summary ---
Author Organization [employer] Address [address] [facility] [address]t [place] [address] Care Team Providers Care Match Up Person Name Role Phone Amelia Montalvo DO Primary Care Provider + [phone] Reason for Visit * Reason Comments Med Refill Encounter Details Date Type Department Care Team ([facility] st Contact Info) Description 11/07/2023 Refill [facility] [address] [place] [address] Amelia Montalvo DO [address] [place] [address] Other specified anxiety disorders Social History Tobacco [...] [facility] [address] [place] [address] Mai Bishop RN 06/20/2025 1:30 PM EST Office Visit [facility] [address] [place] [address] Cely Guy [address] [place] [address] documented as of this encounter Visit Diagnoses Diagnosis Other specified anxiety disorders documented in this encounter Care Teams Match Up Person Relationship Specialty Start Date End Date Amelia Montalvo DO [address] [place] [address] PCP - General Family Medicine 06/23/12 documented as of this encounter
--- OUTSIDE RECORDS SUMMARY | 2025-04-16 16:11 | XMS_ITS | Patient Health Record ---
Author Organization [facility] Address [address] [place] [address] Care Team Providers Care Ticket Collector Or Usher Name Role Phone Clinton De Leon Jr Reason For Referral No Information Plan Of Treatment No Information
--- OUTSIDE RECORDS SUMMARY | 2025-04-16 16:11 | XMS_ITS | Encounter Summary ---
Author Organization [employer] Address [address] [facility] 7t [place] [address] Care Team Providers Care Drum Carrier Name Role Phone Amelia Montalvo Primary Care Provider + [phone] Reason for Visit * Reason Comments Med Refill Encounter Details Date Type Department Care Team ([facility] st Contact Info) Description 10/25/2023 Refill [facility] [address] [place] [address] Iram Ascencio FNP Social History Tobacco Use [...] Description 06/17/2025 10:00 AM EST Clinical Support [facility] [address] [place] [address] Mai Bishop RN 06/20/2025 1:30 PM EST Office Visit [facility] [address] [place] [address] Cely Guy [address] [place] [address] documented as of this encounter Visit Diagnoses Not on filedocumented in this encounter Care Teams Drum Carrier Relationship Specialty Start Date End Date Amelia Montalvo DO [address] [place] [address] PCP - General Family Medicine 06/23/12 documented as of this encounter
--- OUTSIDE RECORDS SUMMARY | 2025-04-16 16:11 | XMS_ITS | Encounter Summary ---
Author Organization [employer] [facility] Address [address] [facility] 7t [place] [address] Care Team Providers Care Activities Counselor Name Role Phone Amelia Montalvo DO Primary Care Provider [phone] Encounter Details Date Type Department Care Team (Latest Contact Info) Description 01/15/2021 Abstract [facility] CONVERSIONS Dental, Provider, DDS Social History [...] Description 06/17/2025 10:00 AM EST Clinical Support [facility] [address] [place] [address] Mai Bishop RN 06/20/2025 1:30 PM EST Office Visit [facility] [address] [place] [address] Brooks Cely [address] [place] [address] documented as of this encounter Visit Diagnoses Not on filedocumented in this encounter Care Teams Activities Counselor Relationship Specialty Start Date End Date Amelia Montalvo DO [address] [place] [address] PCP - General Family Medicine 06/23/12 documented as of this encounter
--- OUTSIDE RECORDS SUMMARY | 2025-04-16 16:12 | XMS_ITS | Encounter Summary ---
Author Organization [employer] Address [address] [facility] 7t [place] [address] Care Team Providers Care Long Winder Tender Name Role Phone Amelia Montalvo DO Primary Care Provider +[phone] Reason for Visit * Reason Comments Med Refill Encounter Details Date Type Department Care Team ([facility] st Contact Info) Description 11/06/2024 Refill [facility] MEDICINE [address] [place] [address] Amelia Montalvo DO 230 [place] [address] Vitamin B12 deficiency Social History Tobacco Use [...] 06/17/2025 10:00 AM EST Clinical Support [facility] MEDICINE [address] [place] [address] Mai Bishop RN 06/20/2025 1:30 PM EST Office Visit [facility] ADULT DENTAL [address] [place] [address] Cely Guy [address] [place] [address] documented as of this encounter Visit Diagnoses Diagnosis Vitamin B12 deficiency Other B-complex deficiencies documented in this encounter Additional Health Concerns Assessment Noted Time PHQ-9 Depression Total Score: 18 024 2:12 PM EDT documented as of this encounter Care Teams Long Winder Tender Relationship Specialty Start Date End Date Amelia Montalvo DO [address] [place] [address] PCP - General Family Medicine 06/23/12 documented as of this encounter
--- OUTSIDE RECORDS SUMMARY | 2025-04-16 16:12 | XMS_ITS | Encounter Summary ---
Author Organization [employer] Address [address] [facility] 7t [place] [address] Care Team Providers Care Clockmaker Apprentice Name Role Phone Amelia Montalvo DO Primary Care Provider [phone] Reason for Visit * Reason Comments Med Refill Encounter Details Date Type Department Care Team ([facility] st Contact Info) Description 12/09/2023 Refill [facility] MEDICINE [address] [place] [address] Amelia Montalvo DO [address] [place] [address] Social History Tobacco Use Types Packs/Day Years [...] 10:00 AM EST Clinical Support [facility] MEDICINE [address] [place] [address] Mai Bishop RN 06/20/2025 1:30 PM EST Office Visit [facility] ADULT DENTAL [address] [place] [address] Cely Guy [address] [place] [address] documented as of this encounter Visit Diagnoses Not on filedocumented in this encounter Care Teams Clockmaker Apprentice Relationship Specialty Start Date End Date Amelia Montalvo DO [address] [place] [address] PCP - General Family Medicine 06/23/12 documented as of this encounter
[2025-04-16 16:20] LABS: MANUAL DIFF FLAG NO
[2025-04-16 16:22] LABS: Hematocrit 38.1 % (37.0-47.0); Hemoglobin 11.9 g/dl (12.0-16.0); Imm Gran Abs Auto 0.02 X10*3/uL (0.00-0.03); Imm Gran Pct Auto 0.2 % (0.0-0.4); Lymphocytes Absolute Auto 1.8 X10*3/uL (1.2-4.9); Mean Corpuscular HGB Conc 31.2 g/dl (31.0-35.0); Mean Corpuscular Hemoglobin 26.0 pg (27.0-33.0); Mean Corpuscular Volume 83.2 fL (80.0-98.0); NRBC Abs Auto 0.000 X10*3/uL (0.0-0.012); NRBC Pct Auto 0.0 /100WBC (0.0-0.2); Platelet Count 361 X10*3/uL (160-400); Red Blood Count 4.58 X10*6/uL (4.20-5.50); White Blood Count 8.6 X10*3/uL (4.8-10.8)
[2025-04-16 16:40] LABS: Alanine Aminotransferase 13 U/L (0-31); Albumin Level 4.1 g/dL (3.5-5.0); Alkaline Phosphatase 73 U/L (39-117); Anion Gap 10 (12-20); Aspartate Amino Transferase 17 U/L (5-31); Blood Urea Nitrogen 19 mg/dL (9-16); Calcium 8.9 mg/dL (8.4-10.2); Carbon Dioxide 28 mmol/L (22-29); Chloride 107 mmol/L (96-108); Estimated Glomerular Filt Rate > 60; Potassium 3.8 mmol/L (3.3-5.1); Sodium 141 mmol/L (135-145); Total Protein 6.7 g/dL (6.5-8.0)
== END 2025-04-16 13:13 | disposition home or self-care (01) ==
LOC: HO.HHCL 13:12
PROVIDERS: PCP Family Medicine; Visit Provider Nurse Practitioner Family
DX: M25.511 Pain in right shoulder (principal)
CPT/HCPCS: 36415; 73030; 80053; 85025; 85652; 86140

== ENCOUNTER → 2025-04-16 13:22 | Outpatient (BNV) | payer OTHER, SELFPAY | PROVIDERS: PCP Family Medicine; Visit Provider Radiology Diagnostic Radiology | DX: M19.011 Primary osteoarthritis, right shoulder (principal) | CPT/HCPCS: 73030 ==

== ENCOUNTER 2025-04-29 10:29 | Outpatient (AMB) | payer OTHER, SELFPAY ==
--- OUTSIDE RECORDS SUMMARY | 2025-04-26 10:00 | XMS_ITS | Encounter Summary ---
Author Organization [employer] Address [address] [facility] 7t [place] [address] Care Team Providers Care Molecular Modeler Name Role Phone Amelia Montalvo DO Primary Care Provider [phone] Reason for Visit * Reason Comments Shoulder Pain Encounter Details Date Type Department Care Team ([facility] st Contact Info) Description 04/26/2025 10:00 AM EDT Office Visit [facility] [address] [place] [address] Susie Medina MD [address] [place] [address] Chronic right shoulder pain (Primary Dx) Social History Tobacco Use Types [...] Sign Reading Time Taken Comments Blood Pressure 117/83 04/26/2025 9:17 AM EDT Pulse 80 04/26/2025 9:17 AM EDT Temperature 36.6 C (97.9 F) 04/26/2025 9:17 AM EDT Respiratory Rate 16 04/26/2025 9:17 AM EDT Oxygen Saturation - - Inhaled Oxygen Concentration - - Weight 76.1 kg (167 lb 12.8 oz) 04/26/2025 9:17 AM EDT Height 172.7 cm (5' 8 ) 04/26/2025 9:17 AM EDT Body Mass Index 25.51 04/26/2025 9:17 AM EDT documented in this encounter Progress Notes * Susie Medina MD - 04/26/2025 10:00 AM EDT Subjective Patient ID: Maida Mitchell is a 69 y.o. female who presents for Shoulder Pain. Shoulder Pain The pain is present in the right shoulder. This is a chronic problem. The current episode started more than 1 year ago. The problem occurs constantly. The problem has been gradually worsening. The quality of the pain is described as aching and dull. The pain is at a severity of 7/10. The pain is moderate. Associated symptoms include joint locking and a limited range of motion. The symptoms are aggravated by activity. She has tried acetaminophen for the symptoms. The treatment provided no relief. Her past medical history is significant for osteoarthritis. Review of Systems Constitutional: Negative. Respiratory: Negative. Negative for shortness of breath. Cardiovascular: Negative for chest pain and palpitations. Gastrointestinal: Negative. Genitourinary: Negative. Musculoskeletal: Negative for neck pain. Neurological: Negative for headaches. Objective Physical Exam Constitutional: Appearance: Normal appearance. Cardiovascular: Rate and Rhythm: Normal rate and regular rhythm. Pulses: Normal pulses. Heart sounds: Normal heart sounds. Pulmonary: Effort: Pulmonary effort is normal. Abdominal: General: Abdomen is flat. Musculoskeletal: Right upper arm: Tenderness and bony tenderness present. Neurological: Mental Status: She is alert. Assessment/Plan Diagnoses and all orders for this visit: Chronic right shoulder pain Comments: Advised Warm compress and Stretching Started On Meloxicam Awaiting ortho appt on Tuesday Other orders - meloxicam (Mobic) 7.5 MG tablet; Take 1 tablet (7.5 mg) by mouth 2 times daily. documented in this encounter Plan of Treatment Upcoming Encounters Date Type Department Care Team (Late st Contact Info) Description 06/17/2025 10:00 AM EST Clinical Support [facility] [address] [place] [address] Mai Bishop RN 06/20/2025 1:30 PM EST Office Visit [facility] [address] [place] [address] Cely Guy [address] [place] [address] documented as of this encounter Visit Diagnoses Diagnosis Chronic right shoulder pain- Primary Pain in joint, shoulder region documented in this encounter Additional Health Concerns Assessment Noted Time PHQ-9 Depression Total Score: 16 025 12:09 PM EDT documented as of this encounter Care Teams Molecular Modeler Relationship Specialty Start Date End Date Amelia Montalvo DO [address] [place] [address] PCP - General Family Medicine 06/23/12 documented as of this encounter
[2025-04-29 10:35] VITALS: BMI 26.6
--- NOTE | 2025-04-29 10:35 | A.OFFVIS_ITS ---
Vital Signs 04/29/25 10:35 Height 5 ft 8 in Weight 175 lb BMI 26.6 Intake Visit Reasons: New prob- rt shdr pain Intake Note: Maida is a 69 year old female who presents today for a new problem visit for her right shoulder pain. States she is having ongoing pain for the last 2 weeks. No injury she can recall. States she was seen with her PCP who prescribed Meloxicam with no relief. Sje is also s/p Left TKA 12/20/23. At her last visit she was referred to Pain Management. Pain Mgmt treatment plan was to do a US guided diagnostic left femoral nerve block injection, following which a peripheral nerve stimulator may be considered - Patient no showed the procedure. Today patient states she is doing well with her knee. Allergies vancomycin (VANCOMYCIN) Allergy (Severe, Verified 01/10/25 10:59) REDNESS,RASH,SWELLING Tetanus & Diphtheria Tox,Adult Allergy (Severe, Uncoded 01/10/25 10:59) FEVER,DIFF.BREATHING HPI HPI New prob- rt shdr pain : Details: Maida is a 69 year old female who presents today for a new problem visit for her right shoulder pain. States she is having ongoing pain for the last 2 weeks. No injury she can recall. States she was seen with her PCP who prescribed Meloxicam with no relief. She is also s/p Left TKA 12/20/23. At her last visit she was referred to Pain Management. Pain Mgmt treatment plan was to do a US guided diagnostic left femoral nerve block injection, following which a peripheral nerve stimulator may be considered - Patient no showed the procedure. Today patient states she is doing well with her knee. [facility] Medical History (Updated 04/29/25 @ 12:02 by Moustapha Frost MD) Pelvic cramping Encounter for well woman exam with routine gynecological exam Left knee pain Osteoarthritis of left knee COPD exacerbation Hypoxia Gastric pain History of revision of total replacement of right knee joint Lumbar radiculopathy Osteoarthritis GERD (gastroesophageal reflux disease) Small bowel motility disorder COPD (chronic obstructive pulmonary disease) Anxiety Surgical History (Updated 01/10/25 @ 11:38 by GLENIS Baez) Status post bilateral unicompartmental knee replacement Status post total knee replacement, left (~12/20/23) History of left knee replacement History of right knee joint replacement History of total right knee replacement History of ear surgery Hx of colonoscopy History of esophagogastroduodenoscopy (EGD) Family History Father Diabetes Mother Diabetes Osteoporosis HTN (hypertension) Sister Pancreas cancer Social History Household Members: None Housing: Apartment Are you a primary pharmacist critical care to a significant other at home: No Do you presently have visiting nurse or other home services: No Alcohol intake: never Patient Tobacco Use Status: Former Tobacco user Tobacco use type: Cigarette e-Cigarette/Vaping Use: Never Used Second Hand Smoke Exposure: No Advance Directives Date on File: 11/28/20 service: No Current occupational status: unemployed and disabled 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 Site was prepped using aseptic technique. Patient tolerated the procedure well. Shoulders, Hips, Knees, Shoulder Injection Large joint : Right Shoulder Coding Procedure code (CPT) selection complete Assessment & Plan Assessment & Plan (1) Bursitis of right shoulder: Code(s): M75.51 - Bursitis of right shoulder Category: Medical Plan: Right shoulder bursitis. She has a prescription of NSAIDs and physical therapy from her PCP. I injected her right shoulder today. She can follow up PRN. Coding Level of Care Code Est Pt Level 3 (66669) Diagnoses Bursitis of right shoulder M75.51 CPT Codes Shoulders, Hips, Knees, - Shoulder Injection Large joint : Right Shoulder ([id number])
--- OUTSIDE RECORDS SUMMARY | 2025-04-29 12:22 | XMS_ITS | Encounter Summary ---
Author Organization [employer] Address [address] [facility] 7t [place] [address] Care Team Providers Care Assisted Living Manager Name Role Phone Amelia Montalvo DO Primary Care Provider + [phone] Reason for Visit * Reason Comments Med Refill Encounter Details Date Type Department Care Team ([facility] st Contact Info) Description 11/15/2023 Refill [facility] MEDICINE [address] [place] [address] Charley Miller MD [address] [place] [address] Social History Tobacco Use Types Packs/Day Years [...] Description 06/17/2025 10:00 AM EST Clinical Support [facility] MEDICINE [address] [place] [address] Mai Bishop RN 06/20/2025 1:30 PM EST Office Visit [facility] ADULT DENTAL [address] [place] [address] Cely Guy [address] [place] [address] documented as of this encounter Visit Diagnoses Not on filedocumented in this encounter Care Teams Assisted Living Manager Relationship Specialty Start Date End Date Amelia Montalvo DO [address] [place] [address] PCP - General Family Medicine 06/23/12 documented as of this encounter
--- OUTSIDE RECORDS SUMMARY | 2025-04-29 12:22 | XMS_ITS | Encounter Summary ---
Author Organization [employer] Address [address] [facility] 7t [place] [address] Care Team Providers Care Senior Program Analyst Name Role Phone Amelia Montalvo DO Primary Care Provider [phone] Encounter Details Date Type Department Care Team (Late st Contact Info) Description 09/13/2022 Orders Only [facility] CHC MED & PEDS [address] [place] [address] Amelia Kemp LPN Social History Tobacco Use [...] Description 06/17/2025 10:00 AM EST Clinical Support [facility] MEDICINE [address] [place] [address] Mai Bishop RN 06/20/2025 1:30 PM EST Office Visit [facility] ADULT DENTAL [address] [place] [address] Cely Guy [address] [place] [address] documented as of this encounter Visit Diagnoses Not on filedocumented in this encounter Care Teams Senior Program Analyst Relationship Specialty Start Date End Date Amelia Montalvo DO [address] [place] [address] PCP - General Family Medicine 06/23/12 documented as of this encounter
--- OUTSIDE RECORDS SUMMARY | 2025-04-29 12:22 | XMS_ITS | Encounter Summary ---
Author Organization [facility] Address [address] [facility] 7t [place] [address] Care Team Providers Care Clinical Psychology Professor Name Role Phone Amelia Montalvo DO Primary Care Provider [phone] Encounter Details Date Type Department Care Team (Latest Contact Info) Description 08/10/2018 Abstract [facility] CONVERSIONS Dental, Provider, DDS Social [...] 06/17/2025 10:00 AM EST Clinical Support [facility] MEDICINE [address] [place] [address] Mai Bishop RN 06/20/2025 1:30 PM EST Office Visit [facility] ADULT DENTAL [address] [place] [address] Brooks, Cely [address] [place] [address] documented as of this encounter Visit Diagnoses Not on filedocumented in this encounter Care Teams Clinical Psychology Professor Relationship Specialty Start Date End Date Amelia Montalvo DO [address] [place] [address] PCP - General Family Medicine 06/23/12 documented as of this encounter
--- OUTSIDE RECORDS SUMMARY | 2025-04-29 12:22 | XMS_ITS | Encounter Summary ---
Author Organization [employer] Address [address] [facility] [address] [place] [address] Care Team Providers Care Junior High School Teacher Name Role Phone Amelia Montalvo DO Primary Care Provider [phone] Reason for Visit * Reason Onset Date Comments Pre-op clearance notes 08/26/2023 Encounter Details Date Type Department Care Team (Late st Contact Info) Description 08/26/2023 Telephone [facility] MEDICINE [address] [place] [address] Amelia Montalvo DO [address] [place] [address] Pre-op clearance notes Social History Tobacco Use [...] 08/15 and it can be faxed to [phone] documented in this encounter Plan of Treatment Upcoming Encounters Date Type Department Care Team (Late st Contact Info) Description 06/17/2025 10:00 AM EST Clinical Support [facility] MEDICINE [address] [place] [address] Mai Bishop RN 06/20/2025 1:30 PM EST Office Visit [facility] ADULT DENTAL [address] [place] [address] Cely Guy [address] [place] [address] documented as of this encounter Visit Diagnoses Not on filedocumented in this encounter Care Teams Junior High School Teacher Relationship Specialty Start Date End Date Amelia Montalvo DO [address] [place] [address] PCP - General Family Medicine 06/23/12 documented as of this encounter
--- OUTSIDE RECORDS SUMMARY | 2025-04-29 12:22 | XMS_ITS | Encounter Summary ---
Author Organization [employer] Address [address] [facility] 7t [place] [address] Care Team Providers Care School Manager Name Role Phone Amelia Montalvo Primary Care Provider + [phone] Reason for Visit * Reason Comments Med Refill Encounter Details Date Type Department Care Team ([facility] st Contact Info) Description 10/25/2023 Refill [facility] [address] [place] [address] Iram Ascencio FNP Social History Tobacco Use [...] 10:00 AM EST Clinical Support [facility] MEDICINE [address] [place] [address] Mai Bishop RN 06/20/2025 1:30 PM EST Office Visit [facility] ADULT DENTAL [address] [place] [address] Cely Guy [address] [place] [address] documented as of this encounter Visit Diagnoses Not on filedocumented in this encounter Care Teams School Manager Relationship Specialty Start Date End Date Amelia Montalvo DO [address] [place] [address] PCP - General Family Medicine 06/23/12 documented as of this encounter
--- OUTSIDE RECORDS SUMMARY | 2025-04-29 12:22 | XMS_ITS | Encounter Summary ---
Author Organization [employer] [facility] Address [address] [facility] 7t [place] [address] Care Team Providers Care Ore Washer Name Role Phone Amelia Montalvo DO Primary Care Provider [phone] Encounter Details Date Type Department Care Team (Latest Contact Info) Description 03/29/2022 Abstract [facility] CONVERSIONS Dental, Provider, DDS Social History [...] Description 06/17/2025 10:00 AM EST Clinical Support [facility] MEDICINE [address] [place] [address] Mai Bishop RN 06/20/2025 1:30 PM EST Office Visit [facility] ADULT DENTAL [address] [place] [address] Brooks Cely [address] [place] [address] documented as of this encounter Visit Diagnoses Not on filedocumented in this encounter Care Teams Ore Washer Relationship Specialty Start Date End Date Amelia Montalvo DO [address] [place] [address] PCP - General Family Medicine 06/23/12 documented as of this encounter
--- OUTSIDE RECORDS SUMMARY | 2025-04-29 12:22 | XMS_ITS | Encounter Summary ---
Author Organization [employer] [facility] Address [address] [facility] 7t [place] [address] Care Team Providers Care Solutions Operator Name Role Phone Amelia Montalvo DO Primary Care Provider +[phone] Encounter Details Date Type Department Care Team (Latest Contact Info) Description 06/04/2020 Abstract [facility] CONVERSIONS Dental, Provider, DDS Social History [...] Description 06/17/2025 10:00 AM EST Clinical Support [facility] MEDICINE [address] [place] [address] Mai Bishop RN 06/20/2025 1:30 PM EST Office Visit [facility] ADULT DENTAL [address] [place] [address] Brooks Cley [address] [place] [address] documented as of this encounter Visit Diagnoses Not on filedocumented in this encounter Care Teams Solutions Operator Relationship Specialty Start Date End Date Amelia Montalvo DO [address] [place] [address] PCP - General Family Medicine 06/23/12 documented as of this encounter
--- OUTSIDE RECORDS SUMMARY | 2025-04-29 12:22 | XMS_ITS | Encounter Summary ---
Author Organization [employer] [facility] Address [address] [facility] 7t [place] [address] Care Team Providers Care Swimming Pool Maintenance Supervisor Name Role Phone Amelia Montalvo DO Primary Care Provider [phone] Encounter Details Date Type Department Care Team (Late st Contact Info) Description 10/21/2023 Orders Only [facility] MEDICINE [address] [place] [address] Provider, MD Santos Social History Tobacco Use [...] Description 06/17/2025 10:00 AM EST Clinical Support [facility] MEDICINE [address] [place] [address] Mai Bishop RN 06/20/2025 1:30 PM EST Office Visit [facility] ADULT DENTAL [address] [place] [address] Cely Guy [address] [place] [address] documented as of this encounter Procedures Procedure Name Priority Date/Time Associated Diagnosis Comments HM COLONOSCOPY Routine 05/31/2019 10:01 AM EST documented in this encounter Results * Hm Colonoscopy (05/31/2019 10:01 AM EST) us Historical Provider MD HEALTH MAINTENANCE Final Result documented in this encounter Visit Diagnoses Not on filedocumented in this encounter Care Teams Swimming Pool Maintenance Supervisor Relationship Specialty Start Date End Date Amelia Montalvo DO [address] [place] [address] PCP - General Family Medicine 06/23/12 documented as of this encounter
--- OUTSIDE RECORDS SUMMARY | 2025-04-29 12:22 | XMS_ITS | Encounter Summary ---
Author Organization [employer] Address [address] [facility] 7t [place] [address] Care Team Providers Care Performance Improvement Director Name Role Phone Amelia Montalvo DO Primary Care Provider [phone] Reason for Visit * Reason Comments Med Refill Encounter Details Date Type Department Care Team ([facility] st Contact Info) Description 12/04/2024 Refill [facility] CHC MED & PEDS [address] [place] [address] Amelia Montalvo DO [address] [place], [place] [phone] Other specified anxiety disorders Social History Tobacco [...] 10:00 AM EST Clinical Support [facility] MEDICINE [address] [place] [address] Mai Bishop RN 06/20/2025 1:30 PM EST Office Visit [facility] ADULT DENTAL [address] [place] [address] Cely Guy [address] [place] [address] documented as of this encounter Visit Diagnoses Diagnosis Other specified anxiety disorders documented in this encounter Additional Health Concerns Assessment Noted Time PHQ-9 Depression Total Score: 18 024 2:12 PM EDT documented as of this encounter Care Teams Performance Improvement Director Relationship Specialty Start Date End Date Amelia Montalvo DO [address] [place] [address] PCP - General Family Medicine 06/23/12 documented as of this encounter
--- OUTSIDE RECORDS SUMMARY | 2025-04-29 12:23 | XMS_ITS | Encounter Summary ---
Author Organization [employer] Address [address] [facility] 7t [place] [address] Care Team Providers Care Court Collections Officer Name Role Phone Amelia Montalvo DO Primary Care Provider + [phone] Reason for Visit * Reason Comments Med Refill Encounter Details Date Type Department Care Team ([facility] st Contact Info) Description 11/07/2023 Refill [facility] MEDICINE [address] [place] [address] Amelia Montalvo DO [address] [place] [address] Other specified anxiety disorders Social History Tobacco [...] Description 06/17/2025 10:00 AM EST Clinical Support [facility] MEDICINE [address] [place] [address] Mai Bishop RN 06/20/2025 1:30 PM EST Office Visit [facility] ADULT DENTAL [address] [place] [address] Cely Guy [address] [place] [address] documented as of this encounter Visit Diagnoses Diagnosis Other specified anxiety disorders documented in this encounter Care Teams Court Collections Officer Relationship Specialty Start Date End Date Amelia Montalvo DO [address] [place] [address] PCP - General Family Medicine 06/23/12 documented as of this encounter
--- OUTSIDE RECORDS SUMMARY | 2025-04-29 12:23 | XMS_ITS | Clinical Summary ---
Author Organization [facility] Address [address] [facility] [address] [place] [address] Phone Care Team Providers Care Ore Washer Name Role Phone Unavailable Primary Care Provider [...] file Medical Devices Not on file Insurance [facility] MEDICARE REPLACEMENT JOSE [place] [id number] O MEDICARE REPLACEMENT MEDICARE REPLACEMENT MEDICARE REPLACEMENT MEDICARE REPLACEMENT [facility] MEDICARE REPLACEMENT Additional Source Comments The information contained in this document represents components of the legal health record. It is not the complete legal health record.[facility]
--- OUTSIDE RECORDS SUMMARY | 2025-04-29 12:23 | XMS_ITS | Encounter Summary ---
Author Organization [facility] [facility] Address [address] [facility] 7t [place] [address] Care Team Providers Care Internet Marketing Strategist Name Role Phone Amelia Montalvo DO Primary Care Provider [phone] Encounter Details Date Type Department Care Team (Latest Contact Info) Description 01/15/2021 Abstract [facility] CONVERSIONS Dental, Provider, DDS Social [...] Description 06/17/2025 10:00 AM EST Clinical Support [facility] MEDICINE [address] [place] [address] Mai Bishop RN 06/20/2025 1:30 PM EST Office Visit [facility] ADULT DENTAL [address] [place] [address] Brooks Cely [address] [place] [address] documented as of this encounter Visit Diagnoses Not on filedocumented in this encounter Care Teams Internet Marketing Strategist Relationship Specialty Start Date End Date Amelia Montalvo DO [address] [place] [address] PCP - General Family Medicine 06/23/12 documented as of this encounter
--- OUTSIDE RECORDS SUMMARY | 2025-04-29 12:24 | XMS_ITS | Encounter Summary ---
Author Organization [employer] Address [address] [facility] 7t [place] [address] Care Team Providers Care Salicylic Acid Blender Name Role Phone Amelia Montalvo DO Primary Care Provider [phone] Encounter Details Date Type Department Care Team (Latest Contact Info) Description 04/26/2025 Travel Social History Tobacco Use Types Packs/Day [...] Description 06/17/2025 10:00 AM EST Clinical Support [facility] MEDICINE [address] [place] [address] Mai Bishop RN 06/20/2025 1:30 PM EST Office Visit [facility] ADULT DENTAL [address] [place] [address] Cely Guy [address] [place] [address] documented as of this encounter Visit Diagnoses Not on filedocumented in this encounter Additional Health Concerns Assessment Noted Time PHQ-9 Depression Total Score: 16 025 12:09 PM EDT documented as of this encounter Care Teams Salicylic Acid Blender Relationship Specialty Start Date End Date Amelia Montalvo DO [address] [place] [address] PCP - General Family Medicine 06/23/12 documented as of this encounter
--- OUTSIDE RECORDS SUMMARY | 2025-04-29 12:24 | XMS_ITS | Clinical Summary ---
Author Organization [employer] Address [address] [place] [address] 7t [place] [address] Care Team Providers Care Icing Maker Name Role Phone Amelia Montalvo DO Primary Care Provider + [phone] Allergies Active Allergy Reactions Criticality Noted Date [...] mg by mouth at bedtime. 023 Active ondansetron ODT (Zofran-ODT) 4 MG disintegrating tablet Take 1 tablet by mouth if needed each day for nausea. 024 Active SUMAtriptan (Imitrex) 50 MG tablet [...] MORNING AND IN THE EVENING 60 tablet Active rOPINIRole (Requip) 0.25 MG tablet TAKE 1 TABLET BY MOUTH AT BEDTIME (1-3 HOURS BEFORE BEDTIME) 30 tablet Active Fluticasone-Salme terol 250-50 MCG/ACT aerosol powder [...] BY MOUTH EVERY MORNING 90 tablet Active alendronate (Fosamax) 70 MG tablet take [...] TWICE DAILY 30 mL 3 025 Active divalproex (Depakote ER) 250 [...] MG/3ML) 0.083% nebulizer solutionIndicatio ns:COPD exacerbation (CMS/HCC) ([facility]) INHALE 1 AMPULE USING A NEBULIZER EVERY [...] NEEDED FOR MUSCLE SPASMS 30 tablet 1 025 Active acetaminophen (Tylenol 8 Hour) 650 MG ER tabletIndications :Shoulder pain, unspecified chronicity, unspecified laterality Take 1 tablet (650 mg) by mouth every 8 (eight) hours if needed for mild pain. Do not crush, chew, or split. 60 tablet 3 025 Active albuterol (Ventolin HFA) 108 (90 Base) MCG/ACT inhalerIndication s:Mild intermittent asthma with acute exacerbation INHALE 2 PUFFS BY MOUTH EVERY 4 HOURS NEEDED FOR WHEEZING OR SHORTNESS OF BREATH 18 g 1 025 Active melatonin 5 MG tablet TAKE 1 TO 2 TABLETS BY MOUTH EVERY DAY AT BEDTIME NEEDED 60 tablet 3 025 Active meloxicam (Mobic) 7.5 MG tablet Take 1 tablet (7.5 mg) by mouth 2 times daily. 60 tablet 11 025 2025 Active famotidine (Pepcid) 40 MG tablet Take 1 tablet (40 mg) by mouth at bedtime. 30 tablet 11 023 2024 Discontinued baclofen (Lioresal) 10 MG tablet TAKE 1/2 TABLET BY MOUTH THREE TIMES DAILY NEEDED FOR MUSCLE SPASMS 30 tablet 1 024 2024 Discontinued acetaminophen (Tylenol 8 Hour) 650 [...] SHORTNESS OF BREATH 18 g 1 025 2024 Discontinued melatonin 5 MG tablet TAKE 1 TO 2 TABLETS BY MOUTH EVERY DAY AT BEDTIME NEEDED 60 tablet 3 025 2024 Discontinued clonazePAM (KlonoPIN) 1 MG tabletIndications :Other specified anxiety disorders TAKE 1 TABLET BY MOUTH TWICE DAILY FOR 28 DAYS 56 tablet 025 2024 Discontinued naproxen (Naprosyn) 500 MG tabletIndications :Shoulder pain, unspecified chronicity, unspecified laterality Take 1 tablet (500 mg) by mouth 2 times daily for 10 days. 20 tablet 025 2024 traMADol (Ultram) 50 MG tabletIndications :Shoulder pain, unspecified chronicity, unspecified laterality Take 1 tablet (50 mg) by mouth every 8 (eight) hours if needed for severe pain for up to 3 days. 10 tablet 025 2024 Hospital, Clinic, or Other Facility Administered Medication Ordered Dose Route Frequency Start Date End Date Status albuterol (2.5 MG/3ML) 0.083% nebulizer solution 2.5 mgIndications:COPD exacerbation ([facility]) ([facility]) 2.5 mg NEBULIZATION Once 10/23/2024 Active Active [...] split. Long-term current use of benzodiazepine 12/07/19 25 Partial edentulism 12/06/2024 Flu 10/18/2024 Assessment & Plan (10/18/2024 1:27 PM EDT): Faint wheezing on exam. No evidence of acute respiratory distress. 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 Symptoms mild. No evidence of dehydration. -Prescribed predniSONE (Deltasone) 20 MG taper. -Supportive care advised. -Isolation recommendations discussed. Acute exacerbation of COPD with asthma ([facility]) 10/18/2024 Assessment & Plan (10/18/2024 1:25 PM EDT): Faint diffuse wheezing on exam. Suspect acute asthma/PRODUCTION CONSULTANT exacerbation. -prescribed predniSONE (Deltasone) 20 MG taper. [...] and flonase daily -cont accolate daily -review bingo attendant next visit PREET (generalized anxiety disorder) 07/25/2012 [...] PM EDT): Topical abx prescribed COPD exacerbation ([facility]) 04/02/2024 04/13/2024 Assessment & Plan (04/02/2024 6:56 [...] from body habitus and lead placement; normal IN and corrected QT. Referred for stress test and TTE. Per pt to be performed tests this month. -In current evaluation by plate grainer for Atypical chest pain but difficult to [...] Influenza-like symptoms 10/04/2022 0402/2023 Seasonal allergies 12/15/2017 3 Gingivitis 10/04/2013 11/05/2022 Encounters Date Type Department Care Team Description 04/26/2025 10:00 AM EDT Office Visit [facility] [address] [place] [address] Susie Medina MD Chronic right shoulder pain (Primary Dx) 04/26/2025 Travel 04/24/2025 Refill [facility] MEDICINE [address] [place] [address] mAelia Montalvo DO 04/19/2025 Refill [facility] MEDICINE [address] [place] [address] Amelia Montalvo DO Mild intermittent asthma with acute exacerbation 04/16/2025 1:00 PM EDT Office Visit [facility] [address] [place] [address] Nell Layton NP Shoulder pain, unspecified chronicity, unspecified laterality (Primary Dx) 04/16/2025 Results Follow-Up [facility] [address] [place] [address] Nell Layton NP XR Shoulder 2+ Views Right 04/16/2025 Travel 04/14/2025 Refill [facility] [address] [place] [address] Amelia Montalvo DO 04/01/2025 Refill [facility] [address] [place], [place] [phone] Amelia Montalvo DO Other specified anxiety disorders 03/24/2025 Refill [facility] [address] [place] [address] Amelia Montalvo DO 03/19/2025 11:00 AM EDT Office Visit [facility] ADULT DENTAL [address] [place] [address] Kristian Mendoza DDS Partial edentulism, unspecified edentulism class (Primary Dx) 03/18/2025 11:30 AM EDT Clinical Support [facility] [address] [place] [phone] Mai Bishop, RN Long-term current use of benzodiazepine (Primary Dx) 03/18/2025 Telephone [facility] [address] [place] [phone] Mai Bishop, JAMAAL TREE PLANTER Agreement renewed today; UTOX Neg BZO 03/18/2025 Travel 03/15/2025 Refill [facility] [address] [place] [address] Amelia Montalvo, COPD exacerbation ([facility]) 03/12/2025 Telephone [facility] [address] [place] [address] Mai Bishop RN NCNS TREE PLANTER Renewal today 03/06/2025 Refill [facility] [address] [place] [address] Amelia Montalvo DO Other specified anxiety disorders 03/04/2025 Telephone [facility] ADULT DENTAL [address] [place] [address] Farhat Guyaris 02/21/2025 Refill [facility] [address] [place] [address] Amelia Montalvo DO 02/08/2025 Telephone [facility] OPTOMET[facility] [address] [place] [address] Francine Alvarado, OD 01/28/2025 Refill [facility] [address] [place], [place] [phone] Amelia Montalvo DO Other specified anxiety disorders from Last 3 Months Immunizations Immunization Administration [...] 16 04/26/2025 9:17 AM EDT Oxygen Saturation 97% 04/16/2025 12: 06 PM EDT Inhaled Oxygen Concentration - - Weight 76.1 kg (167 lb 12.8 oz) 04/26/2025 9:17 AM EDT Height 172.7 cm (5' 8 ) 04/26/2025 9:17 AM EDT Body Mass Index 25.51 04/26/2025 9:17 AM EDT Plan of Treatment Upcoming Encounters Date Type Department Care Team (Late st Contact Info) Description 06/17/2025 10:00 AM EST Clinical Support [facility] [address] [place] [address] Mai Bishop, RN 06/20/2025 1:30 PM EST Office Visit [facility] ADULT DENTAL [address] [place] [address] Cely Guy [address] [place] [address] Health Maintenance Due Date Last Done Comments [...] 01/31/2024, 11/05/2022, Additional history exists Tobacco Screening 04/26/2026 04/26/2025 Colonoscopy 05/31/2029 05/31/2019 Colorectal Cancer Screening 05/31/2029 [...] EDT Shoulder pain, unspecified chronicity, unspecified laterality C-REACTIVE PROTEIN Routine 04/16/2025 1: 18 PM EDT Shoulder pain, unspecified chronicity, unspecified laterality SED RATE BY MODIFIED WESTERGREN Routine 04/16/2025 1:18 PM EDT Shoulder pain, unspecified chronicity, unspecified laterality COMPREHENSIVE METABOLIC PANEL Routine 04/16/2025 1:18 PM EDT Shoulder pain, unspecified chronicity, unspecified laterality CBC WITH AUTO DIFFERENTIAL Routine 04/16/2025 1:18 PM EDT Shoulder pain, unspecified chronicity, unspecified [...] PM EDT Narrative 04/16/2025 1:51 PM EDT [address] [address] XRay Report Signed Patient: Maida Mitchell I MR#: [id number] 73 : 1955 Acct:[id number] Age/Sex: 69 / F ADM Date: 04/16/25 Loc: .[facility] Attending Dr: Nell Layton NP Ordering Physician: Nell Layton NP Date of Service: 04/16/25 Procedure(s): XR shoulder RT min 2V Accession Number(s): [id number] cc: Nell Layton NP; Amelia Montalvo DO [...] by Carroll Minor MD in OV> 04/16/25 134 DD/ 39 TD/TT: 04/16/251339 Vegetable Farm Worker: Procedure Note Ronnytylerfishbasilter, Image - 04/16/[address] [address] XRay Report Signed Patient: Maida Mitchell IMR#: [id number] [birth year] : 1955cct:[id number] Age/Sex: 69 / FADM Date: 04/16/25 Loc: HO.[facility] Attending Dr: Nell Layton NP Ordering Physician: Nell Layton NP Date of Service: 04/16/25 Procedure(s): XR shoulder RT min 2V Accession Number(s): [id number] cc: Nell Layton NP; Amelia Montalvo DO [...] Minor MD in OV> 04/16/25 1348 DD/ 39 TD/TT: 04/16/251339 Vegetable Farm Worker: us Nell Layton HEALTH ASSESSMENT AND TREATMENT TEACHER IMG XR PROCEDURES Final Result * (ABNORMAL) CBC auto differential (04/16/2025 1:18 PM EDT) White Blood Count 8.6 4.8 - 10.8 X10*3/uL [facility] Red Blood Count 4.58 4.20 - 5.50 X10*6/uL [facility] Hemoglobin 11.9(L) 12.0 - 16.0 g/dl [facility] Hematocrit 38.1 37.0 - 47.0 % [facility] Mean Corpuscular Volume 83.2 80.0 - 98.0 fL [facility] Mean Corpuscular Hemoglobin 26.0(L) 27.0 - 33.0 pg [facility] Mean Corpuscular HGB Conc 31.2 31.0 - 35.0 g/dl [facility] Red Cell Distribution Width 14.4 11.0 - 16.0 % [facility] Platelet Count 361 160 - 400 X10*3/uL [facility] Mean Platelet Volume 9.6 9.4 - 12.3 fL [facility] Neutrophils Percent Auto 69.6 45 - 73 % [facility] Imm Gran Pct Auto 0.2 0.0 - 0.4 % [facility] Lymphocytes Percent Auto 20.4 20 - 40 % [facility] Monocytes Percent Auto 7.7 2 - 11 % [facility] Eosinophils Percent Auto 1.9 0 - 4 % [facility] Basophils Percent Auto 0.2 0 - 2 % [facility] NRBC Pct Auto 0.0 0.0 - 0.2 /100WBC [facility] Neutrophils Absolute Auto 6.0 2.0 - 8.3 x10*3/uL [facility] Imm Gran Abs Auto 0.02 0.00 - 0.03 X10*3/uL [facility] Lymphocytes Absolute Auto 1.8 1.2 - 4.9 X10*3/uL [facility] Monocytes Absolute Auto 0.7 0.1 - 1.2 X10*3/uL [facility] Eosinophils Absolute Auto 0.2 0.0 - 0.4 X10*3/uL [facility] Basophils Absolute Auto 0.0 0.0 - 0.2 X10*3/uL [facility] NRBC Abs Auto 0.000 0.0 - 0.012 X10*3/uL [facility] Blood Venous blood specimen / Unknown 04/16/2025 1:18 PM EDT 04/16/2025 4:09 PM EDT Nell Layton HEALTH ASSESSMENT AND TREATMENT TEACHER LAB BLOOD ORDERABLES Final Resul t Performing Organization Address [facility] Co de Phone Number [facility] [address] [place] [phone] * Sed Rate by Modified Stormy (04/16/2025 1:18 PM EDT) Erythrocyte Sedimentation Rate 17 0 - 20 MM/HR [facility] Comment:Patients with polycy themia and many hemoglobin abnormalitiesmay have depressed sed rates whereas patients with anemiamay have elevated sed rates. Blood Venous blood specimen / Unknown 04/16/2025 1:18 PM EDT 04/16/2025 4:08 PM EDT Nell Layton NP LAB BLOOD ORDERABLES Final Resul t Performing Organization Address [facility] Co de Phone Number [facility] [address] [place] [phone] * (ABNORMAL) C-reactive Protein (04/16/2025 1:18 PM EDT) C Reactive Protein 1.25(H) < or = 0.50 mg/dL [facility] Blood Venous blood specimen / Unknown 04/16/2025 1:18 PM EDT 04/16/2025 4:09 PM EDT us Nell Layton HEALTH ASSESSMENT AND TREATMENT TEACHER LAB BLOOD ORDERABLES Final Resul t Performing Organization Address [facility] Co de Phone Number [facility] [address] [place] [address] [phone] * (ABNORMAL) Comprehensive Metabolic Panel (04/16/2025 1:18 PM EDT) Sodium 141 135 - 145 mmol/L [facility] Potassium 3.8 3.3 - 5.1 mmol/L [facility] Chloride 107 96 - 108 mmol/L [facility] Carbon Dioxide 28 22 - 29 mmol/L [facility] Anion Gap 10(L) 12 - 20 [facility] Urea Nitrogen (BUN) 19(H) 9 - 16 mg/dL [facility] Creatinine, Serum 0.74 0.5 - 1.4 mg/dL [facility] Estimated Glomerular Filt Rate >60 [facility] Comment:Chronic Kidney Disea se: Estimated GFR < 60 mL/min/1.06n5Ivtwtg Kidney Disease: Estimated GFR < 15 mL/min/1.73m2 Glucose 63 60 - 115 mg/dL [facility] Calcium 8.9 8.4 - 10.2 mg/dL [facility] Bilirubin, Total 0.2 0.0 - 1.0 mg/dL [facility] Aspartate Amino Transferase 17 5 - 31 U/L [facility] Alanine Aminotransferase 13 0 - 31 U/L [facility] Total Protein 6.7 6.5 - 8.0 g/dL [facility] Albumin Level 4.1 3.5 - 5.0 g/dL [facility] Alkaline Phosphatase 73 39 - 117 U/L [facility] Blood Venous blood specimen / Unknown 04/16/2025 1:18 PM EDT 04/16/2025 4:09 PM EDT us Nell Layton NP LAB BLOOD ORDERABLES Final Resul t [facility] [address] [place] [address] [phone] * Drug Monitoring, Benzodiazepines, Quantitative, Urine (03/18/2025 12:08 PM EDT) Nordiazepam, GCMS Urine NEGATIVE [facility] Comment:CUTOFF 50 NG/MLPERFO RMING SITE:[employer] [facility], [address] [place], [place] [phone] Senior Data Warehouse Architect: APPLE WALSH MD, CLIA:[id number] Oxazepam, GCMS Urine NEGATIVE [facility] Comment:CUTOFF 50 NG/ML Lorazepam GCMS Urine NEGATIVE [facility] Comment:CUTOFF 50 NG/ML Alprazolam, GCMS Urine NEGATIVE [facility] Comment:CUTOFF 25 NG/ML Alphahydroxytriazolam, GCMS Ur NEGATIVE [facility] Comment:CUTOFF 50 NG/ML Temazepam, GCMS Urine NEGATIVE [facility] Comment:CUTOFF 50 NG/ML Alphahydroxymidazolam,GC MS Ur NEGATIVE [facility] Comment:CUTOFF 50 NG/ML Aminoclonazepam, GCMS Urine 188 [facility] Comment:CUTOFF 25 NG/ML Flurazepam Metabolite,GCMS Ur NEGATIVE [facility] Comment:CUTOFF 50 NG/ML Benzodiazepines Comments SEE NOTE [facility] Comment:This drug testing is for medical treatment only. Analysiswas performed as non-forensic testing and these resultsshould be used only by healthcare providers to renderdiagnosis or treatment, or to monitor progress of medicalconditions.Aminoclonazepam detected is consistent with the use of thedrug Clonazepam.Confirmation tests were developed and their analyticalperformance characteristics have been determined by [employer]. It has not been cleared or approved by the FDA.This assay has been validated pursuant to the CLIAregulations and is used for clinical purposes.Healthcare Providers needing Interpretation assistance,please contact us at [phone] ( ) M-F,8am to 10pm EST Urine (Urine, Random) 03/18/2025 12:08 PM EDT 03/18/2025 4:12 PM EDT us Amelia Montalvo DO LAB URINE ORDERABLES Final R esult [facility] [address] [place] [phone] [phone] * (ABNORMAL) POCT OSMIN-14 Urine Drug [...] - 03/18/2025 12:00 PM EDT UTO[employer] cup Lot#[id number] Exp. 04/16/26 Internal Pass Control Amelia Montalvo DO POINT OF CARE TEST ENTER/MAKAYLA T ORDERABLES Final Result * Hemoglobin A1c (01/09/2025 8:19 AM EDT) Hemoglobin A1c 5.7 <6.0 % [facility] Comment:Hemoglobin A1C Refer ence Range Adults: 4.8 - 6.0 % Non diabetic: < 6.0 % Goal: < 7.0 %Additional Action Suggested: > 8.0 %Note: Hemoglobin A1c results are invalid for patients with abnormal amounts of HbF. Blood transfusions may impact the HbA1c concentration in the patient sample. Estimated Average Glucose 117 mg/dL [facility] Comment:eAG = Estimated ave rage glucose which is %A1C expressed asaverage glucose, using the formula of the J4E-JdiguowStditpc Glucose study (ADAG), Diabetes Care, Vol.31,#8,Feb. 2007 Blood Venous blood specimen / Unknown 01/09/2025 8:19 AM EDT 01/09/2025 11:22 AM EDT us Amelia Katia MILAN LAB BLOOD ORDERABLES Final R esult [facility] [address] [place] [phone] [phone] * HEPATITIS C AB W/REFL TO HCV RNA, QN, PCR (01/06/2021 8:12 AM EDT) HEPATITIS C ANTIBODY NON-REACT JULIOCESAR NON-REACT JULIOCESAR [facility] INDEX 0.01 <1.00 [facility] Comment: HCV antibody was non-reactive. There is no laboratory evidence of HCV infection. In most cases, no further action is required. However, if recent HCV exposure is suspected, a test for HCV RNA (test code 00488) is suggested. For additional information please refer to [email or web address] [email or web address]/faq/[email or web address] (This link is being provided for informational/ educational purposes only.) 01/06/2021 8:12 AM EDT us Amelia Montalvo DO HISTORICAL/NON ORDERABLE LAB S Final Result Performing Organization Address [facility] Co de Phone Number [facility] [address] [place] [address], * Hm Colonoscopy (05/31/2019 10:01 AM EST) Historical Provider HEALTH MAINTENANCE Final Result from Last 3 Months or Most Recently Relevant to Health Maintenance Insurance [address] [place] [id number] [facility] ASSISTED OPTIONS (O D-SNP) [facility] STANDARD DENTAL [facility] Care Teams Icing Maker Relationship Specialty Start Date End Date Amleia Montalvo DO [address] [place] [phone] PCP - General Family Medicine 06/23/12
--- OUTSIDE RECORDS SUMMARY | 2025-04-29 12:24 | XMS_ITS | Patient Health Record ---
Author Organization [facility] Address [address] [place] [address] Care Team Providers Care Scrap Hoist Operator Name Role Phone Clinton De Leon Jr [phone] Reason For Referral No Information Plan Of Treatment No Information
--- OUTSIDE RECORDS SUMMARY | 2025-04-29 12:25 | XMS_ITS | Encounter Summary ---
Author Organization [employer] Address [address] [facility] [address]t [place] [address] Care Team Providers Care Passenger Agent Name Role Phone Amelia Montalvo DO Primary Care Provider + [phone] Reason for Visit * Reason Comments Med Refill Encounter Details Date Type Department Care Team (Late st Contact Info) Description 12/07/2022 Refill [facility] [address] [place] [address] Iram Ascencio FNP Social History Tobacco Use [...] 06/17/2025 10:00 AM EST Clinical Support [facility] [address] [place] [address] Mai Bishop RN 06/20/2025 1:30 PM EST Office Visit [facility] [address] [place] [address] Cely Guy [address] [place] [address] documented as of this encounter Visit Diagnoses Not on filedocumented in this encounter Care Teams Passenger Agent Relationship Specialty Start Date End Date Amelia Montalvo DO [address] [place] [address] PCP - General Family Medicine 06/23/12 documented as of this encounter
--- OUTSIDE RECORDS SUMMARY | 2025-04-29 12:25 | XMS_ITS | Encounter Summary ---
Author Organization [employer] Address 75 [facility] 7t [place] [address] Care Team Providers Care Retail Project Merchandiser Name Role Phone Amelia Montalvo DO Primary Care Provider [phone] Reason for Visit * Reason Comments Med Refill Encounter Details Date Type Department Care Team ([facility] st Contact Info) Description 04/24/2025 Refill [facility] MEDICINE [address] [place] [address] Amelia Montalvo DO [address] [place] [address] Social History Tobacco Use Types Packs/Day Years [...] Description 06/17/2025 10:00 AM EST Clinical Support [facility] [address] [place] [address] Mai Bishop RN 06/20/2025 1:30 PM EST Office Visit [facility] ADULT DENTAL [address] [place] [address] Cely Guy [address] [place] [address] documented as of this encounter Visit Diagnoses Not on filedocumented in this encounter Additional Health Concerns Assessment Noted Time PHQ-9 Depression Total Score: 16 025 12:09 PM EDT documented as of this encounter Care Teams Retail Project Merchandiser Relationship Specialty Start Date End Date Amelia Montalvo DO [address] [place] [address] PCP - General Family Medicine 06/23/12 documented as of this encounter
--- OUTSIDE RECORDS SUMMARY | 2025-04-29 12:25 | XMS_ITS | Encounter Summary ---
Author Organization [employer] Address 75 [facility] 7t [place] [address] Care Team Providers Care Inventory Control Analyst Name Role Phone Amelia Montalvo DO Primary Care Provider [phone] Reason for Visit * Reason Comments Med Refill Encounter Details Date Type Department Care Team ([facility] st Contact Info) Description 03/14/2024 Refill [facility] MEDICINE [address] [place] [address] Amelia Montalvo DO [address] [place] [address] Other specified anxiety disorders Social History Tobacco [...] Description 06/17/2025 10:00 AM EST Clinical Support [facility] MEDICINE [address] [place] [address] Mai Bishop RN 06/20/2025 1:30 PM EST Office Visit [facility] ADULT DENTAL [address] [place] [address] Cely Guy [address] [place] [address] documented as of this encounter Visit Diagnoses Diagnosis Other specified anxiety disorders documented in this encounter Additional Health Concerns Assessment Noted Time PHQ-9 Depression Total Score: 18 024 2:12 PM EDT documented as of this encounter Care Teams Inventory Control Analyst Relationship Specialty Start Date End Date Amelia Montalvo DO [address] [place] [id number] PCP - General Family Medicine 06/23/12 documented as of this encounter
--- OUTSIDE RECORDS SUMMARY | 2025-04-29 12:25 | XMS_ITS | Encounter Summary ---
Author Organization [employer] Address 75 [facility] 7t [place] [address] Care Team Providers Care Hull And Deck Remover Name Role Phone Sintia Montalvonifer Primary Care Provider [phone] Encounter Details Date Type Department Care Team (Late st Contact Info) Description 11/04/2022 Abstract [facility] MEDICINE [address] [place] [phone] Amelia Montalvo DO [address] [place], [place] [phone] Social History Tobacco Use Types Packs/Day Years [...] Description 06/17/2025 10:00 AM EST Clinical Support [facility] [address] [place] [address] Mai Bishop RN 06/20/2025 1:30 PM EST Office Visit [facility] ADULT DENTAL [address] [place] [address] [phone] Cely Guy [address] [place] [address] documented as of this encounter Visit Diagnoses Not on filedocumented in this encounter Care Teams Hull And Deck Remover Relationship Specialty Start Date End Date Amelia Montalvo DO [address] [place] [address] PCP - General Family Medicine 06/23/12 documented as of this encounter
--- OUTSIDE RECORDS SUMMARY | 2025-04-29 12:26 | XMS_ITS | Encounter Summary ---
Author Organization [employer] Address 75 [facility] 7t [place] [address] Care Team Providers Care Bindery Worker Name Role Phone Amelia Montalvo DO Primary Care Provider [phone] Reason for Visit * Reason Comments Med Refill Encounter Details Date Type Department Care Team ([facility] st Contact Info) Description 12/09/2023 Refill [facility] MEDICINE [address] [place] [address] Amelia Montalvo DO [address] [place] [address] Social History Tobacco Use Types Packs/Day Years [...] Description 06/17/2025 10:00 AM EST Clinical Support [facility] [address] [place] [address] Mai Bishop RN 06/20/2025 1:30 PM EST Office Visit [facility] ADULT DENTAL [address] [place] [address] Cely Guy [address] [place] [address] documented as of this encounter Visit Diagnoses Not on filedocumented in this encounter Care Teams Bindery Worker Relationship Specialty Start Date End Date Amelia Montalvo DO [address] [place] [phone] PCP - General Family Medicine 06/23/12 documented as of this encounter
--- OUTSIDE RECORDS SUMMARY | 2025-04-29 12:26 | XMS_ITS | Encounter Summary ---
Author Organization [employer] Address 75 [facility] 7t [place] [address] Care Team Providers Care Recycling Attendant Name Role Phone Amelia Montalvo DO Primary Care Provider [phone] Encounter Details Date Type Department Care Team (Late st Contact Info) Description 10/26/2022 Orders Only [facility] MEDICINE [address] [place] [address] Michelle Vides LPN Social History Tobacco Use [...] Description 06/17/2025 10:00 AM EST Clinical Support [facility] MED[facility] [address] [place] [address] Mai Bishop RN 06/20/2025 1:30 PM EST Office Visit [facility] ADULT DENTAL [address] [place] [address] Cely Guy [address] [place] [address] documented as of this encounter Visit Diagnoses Not on filedocumented in this encounter Care Teams Recycling Attendant Relationship Specialty Start Date End Date Amelia Montalvo DO [address] [place] [address] PCP - General Family Medicine 06/23/12 documented as of this encounter
--- OUTSIDE RECORDS SUMMARY | 2025-04-29 12:26 | XMS_ITS | Encounter Summary ---
Author Organization [employer] Address 75 [facility] 7t [place] [address] Care Team Providers Care High School Guidance Counselor Name Role Phone KatiaAmelia Primary Care Provider [phone] Encounter Details Date Type Department Care Team (Late st Contact Info) Description 10/07/2022 Orders Only [facility] MED & PEDS [address] [place], [place] [phone] Amelia Kemp LPN Social History Tobacco Use [...] 10:00 AM EST Clinical Support [facility] MEDICINE [address] [place] [address] Mai Bishop RN 06/20/2025 1:30 PM EST Office Visit [facility] ADULT DENTAL [address] [place] [address] Cely Guy [address] [place] [address] documented as of this encounter Procedures Procedure Name Priority Date/Time Associated Diagnosis Comments CT HEAD WO CONTRAST Routine 10/22/2022 1 0:52 AM EDT documented in this encounter Results * CT Head w/o Contrast (10/22/2022 10:52 AM EDT) Anatomical Region Laterality Modality Head, Neck Computed Tomogra phy 10/22/2022 10:5 2 AM EDT Narrative 11/02/2022 3:00 PM EDT [address] [address] [address] Scan Report Signed Patient: Maida Mitchell I MR#: [id number] 73 : 1955 Acct:[id number] Age/Sex: 67 / F ADM Date: 10/22/22 Loc: HO.CT Attending Dr: Igor Landry MD Ordering Physician: IGOR LANDRY MD Date of Service: 10/22/22 Procedure(s): CT head/brain wo IV con Accession Number(s): [id number] cc: IGOR LANDRY MD EXAMINATION: CT HEAD [...] in OV> 11/02/22 1457 DD/ 1052 TD/TT: Creative Strategist: REGINA Procedure Note Donotuseinterpreter, Image - 11/02/[address] [address] [address] Scan Report Signed Patient: Maida Mitchell IMR#: [id number] [birth year] : 1955cct:[id number] Age/Sex: 67 / FADM Date: 10/22/22 Loc: HO.CT Attending Dr: Igor Landry MD Ordering Physician: IGOR LANDRY MD Date of Service: 10/22/22 Procedure(s): CT head/brain wo IV con Accession Number(s): [id number] cc: IGOR LANDRY MD EXAMINATION: CT HEAD [...] in OV> 11/02/22 1457 DD/ 1052 TD/TT: Creative Strategist: REGINA [facility] External Provider IMG CT PROCEDURES Edited Result - Final documented in this encounter Visit Diagnoses Not on filedocumented in this encounter Care Teams High School Guidance Counselor Relationship Specialty Start Date End Date Amelia Montalvo DO [address] [place] [address] PCP - General Family Medicine 06/23/12 documented as of this encounter
--- OUTSIDE RECORDS SUMMARY | 2025-04-29 12:26 | XMS_ITS | Encounter Summary ---
Author Organization [employer] Address 75 [facility] 7t [place] [address] Care Team Providers Care White Work Cleaner Name Role Phone Amelia Montalvo DO Primary Care Provider [phone] Reason for Visit * Reason Comments Med Refill Encounter Details Date Type Department Care Team ([facility] st Contact Info) Description 11/06/2024 Refill [facility] MEDICINE [address] [place] [address] Amelia Montalvo DO [address] [place] [address] Vitamin B12 deficiency Social History Tobacco Use [...] 06/17/2025 10:00 AM EST Clinical Support [facility] MEDICINE [address] [place] [address] Mai Bishop RN 06/20/2025 1:30 PM EST Office Visit [facility] ADULT DENTAL [address] [place] [address] Cely Guy [address] [place] [address] documented as of this encounter Visit Diagnoses Diagnosis Vitamin B12 deficiency Other B-complex deficiencies documented in this encounter Additional Health Concerns Assessment Noted Time PHQ-9 Depression Total Score: 18 024 2:12 PM EDT documented as of this encounter Care Teams White Work Cleaner Relationship Specialty Start Date End Date Amelia Montalvo DO [address] [place] [address] PCP - General Family Medicine 06/23/12 documented as of this encounter
== END 2025-04-29 11:06 | disposition home or self-care (01) ==
PROVIDERS: PCP Family Medicine; Visit Provider Orthopaedic Surgery
DX: M75.51 Bursitis of right shoulder (principal)
CPT/HCPCS: 20610; 99213

== ENCOUNTER → 2025-04-29 10:29 | Outpatient (BNVA) | payer OTHER, SELFPAY | PROVIDERS: PCP Family Medicine; Visit Provider Orthopaedic Surgery | DX: M25.511 Pain in right shoulder (principal); M75.51 Bursitis of right shoulder | CPT/HCPCS: 20610; 99212; J0665; J1100; J2003 ==

== ENCOUNTER 2025-05-23 10:50 | Outpatient (AMB) | payer OTHER, SELFPAY ==
[2025-05-23 11:04] VITALS: BP 110/72; PULSE 69; O2SAT 100; BMI 25.8
--- NOTE | 2025-05-23 11:04 | MHC.OFFVIS ---
Vital Signs 05/23/25 11:04 Height 5 ft 8 in Weight 169 lb 12.095 oz BMI 25.8 BP 110/72 Blood Pressure Location Lt brachial Position Sitting Pulse 69 Pulse Source Pulse Oximeter Pulse Oximetry (%) 100 Oxygen Delivery Method Room Air Intake Visit Reasons: Asthma Intake Note: pt is here and stating she feels like she is starting with somenthing, increased coughing and fatigue, and neck pain and frontal head pain., and her whole body hurts started 3-4 days ago. Product Control And Logistics Analyst Required: Yes Product Control And Logistics Analyst Services: Product Control And Logistics Analyst Present Product Control And Logistics Analyst Name: Cristal (KIMMIE) Office Assistance: Office Assistance offered & declined Allergies vancomycin (VANCOMYCIN) Allergy (Severe, Verified 05/23/25 15:56) REDNESS,RASH,SWELLING Tetanus & Diphtheria Tox,Adult Allergy (Severe, Uncoded 05/23/25 15:56) FEVER,DIFF.BREATHING Medication List - Last Reconciled 05/23/25 by Jared Langley MD acetaminophen 650 mg (2 x 325 mg) PO Q6H PRN 30 days albuterol sulfate 90 mcg/actuation 2 puffs PO Q4H PRN albuterol sulfate 2.5 mg inhalation Q4H PRN alendronate 70 mg PO QWEEK azelastine 1 spray intranasal DAILY bisacodyl 2 tabs qhs and 1 qam orally bedtime; PLEASE PUT IN PILL PACKS calcium citrate-vitamin D3 200 mg-6.25 mcg (250 unit) ([facility] Calcium) 2 tabs PO BID calcium polycarbophil (Fiber-Lax) 625 mg PO DAILY cholecalciferol (vitamin D3) 50 mcg PO DAILY clonazepam 1 mg PO BID PRN cyanocobalamin (vitamin B-12) 1,000 mcg PO DAILY divalproex ER mg PO docusate sodium 100 mg PO BID famotidine 40 mg PO BEDTIME Held on 05/01/24. Instructions: Doctor's Order fluticasone propion-salmeterol 250-50 mcg/dose (Wixela Inhub) 1 ea PO BID fluticasone propionate 50 mcg/actuation 2 sprays intranasal DAILY ibuprofen 400 mg PO Q6H PRN linaclotide (Linzess) 290 mcg PO QAM 30 days loratadine 10 mg PO DAILY meclizine 25 mg PO TID PRN melatonin 5 - 10 mg PO BEDTIME PRN metoclopramide HCl (Reglan) 10 mg PO QID mirtazapine 22.5 mg PO BEDTIME multivit-iron sulf-folic acid 15 mg iron- 400 mcg (Tab-A-Aurea Multivitamin w-iron) 1 tab PO DAILY naproxen 500 mg PO BID PRN 10 days omeprazole 20 mg PO BID ondansetron 4 mg sublingual DAILY PRN ropinirole 0.25 mg PO BEDTIME sumatriptan succinate mg PO walker Folding Front wheeled walker walker Folding Front wheeled walker zafirlukast 20 mg PO BID Do you need a note to return to daycare/school/sports/work: No HPI HPI Asthma: Details: ROC IS 69 YEARS OLD FEMALE, JAPANESE-SPEAKING,, WITH LONGSTANDING HISTORY OF ALLERGIC RHINO SINUSITIS. POSTNASAL DISCHARGE AND COUGH. BEING TREATED FOR ASTHMA AND CHRONIC ALLERGIC RHINITIS. SHE IS PRONE TO HAVE FREQUENT EXACERBATION ESPECIALLY RELATED TO INCREASED NASAL CONGESTION AND SINUSITIS. AT PRESENT SHE HAS HAD INCREASED SYMPTOMS FOR ABOUT 1 WEEK. SHE HAS URGE TO COUGH, WITHOUT PRODUCING ANY MUCUS. AND BECAUSE OF THE COUGH SHE STARTS HAVING PAIN IN THE SUBSTERNAL AREA WELL UPPER ABDOMEN ( MUSCULAR ) SHE CONTINUES TO USE WIXELA TWICE A DAY AND DENIES ANY WHEEZING ATTACKS. [facility] Medical History Pelvic cramping Encounter for well woman exam with routine gynecological exam Left knee pain Osteoarthritis of left knee COPD exacerbation Hypoxia Gastric pain History of revision of total replacement of right knee joint Lumbar radiculopathy Osteoarthritis GERD (gastroesophageal reflux disease) Small bowel motility disorder COPD (chronic obstructive pulmonary disease) Anxiety Surgical History Status post bilateral unicompartmental knee replacement Status post total knee replacement, left (~12/20/23) History of left knee replacement History of right knee joint replacement History of total right knee replacement History of ear surgery Hx of colonoscopy History of esophagogastroduodenoscopy (EGD) Family History Father Diabetes Mother Diabetes Osteoporosis HTN (hypertension) Sister Pancreas cancer Social History Household Members: None Housing: Apartment Are you a primary transitional care liaison to a significant other at home: No Do you presently have visiting nurse or other home services: No Alcohol intake: never Patient Tobacco Use Status: Former Tobacco user Tobacco use type: Cigarette e-Cigarette/Vaping Use: Never Used Second Hand Smoke Exposure: No Advance Directives Date on File: 11/28/20 service: No Current occupational status: unemployed and disabled 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 Female Reproductive History Menstrual Age of Menarche: 13 Review of Systems Const All systems reviewed & are unremarkable except as noted in HPI and below Eyes Reports no additional complaints ENT Reports nasal congestion and Reports nasal discharge Card Denies chest pain, Denies irregular heart rhythm and Denies leg edema Resp Reports as per HPI GI Reports constipation Reports no additional complaints Musc Reports no additional complaints Skin/Breast Reports system reviewed and no additional complaints, except as documented Neuro Reports no additional complaints Psych Reports anxiety Physical Exam Vital Signs: Last Vital Signs Pulse 69 05/23/25 11:04 BP 110/72 05/23/25 11:04 Pulse Ox 100 05/23/25 11:04 Oxygen Delivery Method Room Air 05/23/25 11:04 BMI result Body Mass Index 25.8 Const General: comfortable, no acute distress, alert and awake Orientation/consciousness: patient oriented x3 HEENT Head: Yes normal to inspection General nose exam: No nasal polyps present, No nasal discharge present and Other nasal findings present (Mild chronic nasal congestion) Face and sinus: Yes sinuses nontender Mouth: oropharynx normal Throat: Yes posterior oropharynx normal Eyes General: appearance normal, both eyes and all related structures Neck Neck: Yes normal visual inspection, Yes no lymphadenopathy, Yes trachea midline and Yes no JVD Thyroid: Thyroid normal Chest Chest palpation & inspection: normal inspection of the chest, normal palpation of entire chest wall and no tenderness Resp Other: Percussion note is resonant, has good breath sounds on both sides. No audible wheezes but has a few inspiratory Creps over the basilar areas. Cardio Palpation: normal PMI Rate: regular rate Rhythm: regular rhythm Heart sounds: no gallops and no murmurs Peripheral pulses: Peripheral pulses 2+ throughout GI Palpation (GI): Soft to palpation, nontender, No hepatosplenomegaly present and no masses Auscultation: normal bowel sounds Back/Spine/Pelvis Thoracic/Lumbar Spine: thoracic and lumbar spine normal to inspection Skin General skin exam: no rashes or lesions noted Neuro General: patient oriented x3 and no focal motor deficits Cranial nerves: Yes CN's II-XII intact bilaterally Extrem General: Yes normal to inspection, Yes no clubbing, cyanosis or edema and Yes no calf tenderness Psych Appearance: grossly normal and well kempt Speech and movement: Normal speech and movement present Affect: Anxious affect present Assessment & Plan Assessment & Plan (1) Allergic rhinitis: Onset Date: ~12/11/20 Comment: This is her chronic problem. Seems to be well controlled and stable at this time. But she continues to complain of nasal congestion with postnasal discharge and irritation and worries that this will make her lungs worse. Code(s): J30.9 - Allergic rhinitis, unspecified Category: Medical Plan: ADVISED TO CONTINUE USING AZELASTIN SPRAY 1 SPRAY IN EACH NOSTRIL DAILY AND FLONASE-52 SPRAY IN EACH NOSTRIL DAILY LORATADINE 10 MG ONCE A DAY PRN (2) COPD (chronic obstructive pulmonary disease): Comment: This patient has only mild degree of obstructive disorder, which may be resultant from bronchial asthma over the past many years. Patient continues to be worried about her COPD getting worse. I SHARED THE RESULTS OF PULMONARY FUNCTION TEST WITH HER AND SHE FEELS REASSURED. HER COPD IS HOLDING STABLE Code(s): J44.9 - Chronic obstructive pulmonary disease, unspecified Category: Medical Plan: CONTINUE TO USE WIXELA 250-51 INHALATION B.I.D. ALSO USE ALBUTEROL HFA 2 PUFFS Q 6 HOURS PRN (3) Anxiety: Comment: Patient has an anxious personality, and worries about her somatic symptoms Code(s): F41.9 - Anxiety disorder, unspecified Category: Medical Plan: EXPLAINED ABOUT ALL HER PROBLEMS AND REASSURED (4) Bronchitis: Comment: SHE HAS INCREASED COUGH WITH CHEST CONGESTION, AND WORRIES ABOUT GETTING WORSE. CLINICALLY SEEMS TO HAVE A LOAD GRADE BRONCHITIS AT THIS TIME. Code(s): J40 - Bronchitis, not specified as acute or chronic Category: Medical Plan: SHE WILL BE TREATED WITH A COURSE OF DOXYCYCLINE 100 B.I.D. FOR 1 WEEK Medications: New doxycycline hyclate 100 mg PO BID 14 tabs 0RF copd/bronchitis 7 days Jared Langley MD On Hold bisacodyl Hold Comment: Doctor's Order 2 tabs qhs and 1 qam orally bedtime; PLEASE PUT IN PILL PACKS 60 tabs 1RF GLENIS Baez K59.04 - Chronic idiopathic constipation docusate sodium Hold Comment: Doctor's Order 100 mg PO BID 60 caps 6RF GLENIS Baez Coding Level of Care Code Est Pt Level 3 (45495) Diagnoses Allergic rhinitis J30.9 COPD (chronic obstructive pulmonary disease) J44.9 Anxiety F41.9 Bronchitis J40
--- OUTSIDE RECORDS SUMMARY | 2025-05-23 13:26 | XMS_ITS | Encounter Summary ---
Author Organization [employer] [facility] Address [address] [place] [address] Care Team Providers Care Computer Science Instructor Name Role Phone Amelia Montalvo DO Primary Care Provider [phone] Encounter Details Date Type Department Care Team (Latest Contact Info) Description 06/04/2020 Abstract [facility] CONVERSIONS Dental, Provider, DDS Social [...] Description 06/17/2025 10:00 AM EST Clinical Support [facility] [address] [place] [address] Mai Bishop RN 06/20/2025 1:30 PM EST Office Visit [facility] ADULT DENTAL [address] [place] [address] Brooks Cely [address] [place] [address] documented as of this encounter Visit Diagnoses Not on filedocumented in this encounter Care Teams Computer Science Instructor Relationship Specialty Start Date End Date Amelia Montalvo DO [address] [place] [address] PCP - General Family Medicine 06/23/12 documented as of this encounter
--- OUTSIDE RECORDS SUMMARY | 2025-05-23 13:26 | XMS_ITS | Encounter Summary ---
Author Organization [employer] [facility] Address [address] [place] [address] Care Team Providers Care Facialist Name Role Phone Amelia Montalvo DO Primary Care Provider [phone] Encounter Details Date Type Department Care Team (Latest Contact Info) Description 08/10/2018 Abstract [facility] CONVERSIONS Dental, Provider, DDS Social [...] Description 06/17/2025 10:00 AM EST Clinical Support [facility] MEDICINE [address] [place] [address] Mai Bishop RN 06/20/2025 1:30 PM EST Office Visit [facility] ADULT DENTAL [address] [place] [address] Brooks, Cely [address] [place] [address] documented as of this encounter Visit Diagnoses Not on filedocumented in this encounter Care Teams Facialist Relationship Specialty Start Date End Date Amelia Montalvo DO [address] [place] [address] PCP - General Family Medicine 06/23/12 documented as of this encounter
--- OUTSIDE RECORDS SUMMARY | 2025-05-23 13:26 | XMS_ITS | Encounter Summary ---
Author Organization [employer] Address [address] [facility] [address] [place] [address] Care Team Providers Care Work Over Rig Operator Name Role Phone Amelia Montalvo DO Primary Care Provider [phone] Encounter Details Date Type Department Care Team (Late st Contact Info) Description 09/13/2022 Orders Only [facility] MED [facility] PEDS [address] [place] [address] Amelia Kemp LPN Social History Tobacco Use [...] Description 06/17/2025 10:00 AM EST Clinical Support [facility] MEDICINE [address] [place] [address] Mai Bishop RN 06/20/2025 1:30 PM EST Office Visit [facility] ADULT DENTAL [address] [place] [address] Cely Guy [address] [place] [address] documented as of this encounter Visit Diagnoses Not on filedocumented in this encounter Care Teams Work Over Rig Operator Relationship Specialty Start Date End Date Amelia Montalvo DO [address] [place] [address] PCP - General Family Medicine 06/23/12 documented as of this encounter
--- OUTSIDE RECORDS SUMMARY | 2025-05-23 13:26 | XMS_ITS | Encounter Summary ---
Author Organization [employer] Address [address] [place] [address] Care Team Providers Care Labor Arbitrator Name Role Phone Amelia Montalvo DO Primary Care Provider [phone] Reason for Visit * Reason Onset Date Comments Pre-op clearance notes 08/26/2023 Encounter Details Date Type Department Care Team (Late st Contact Info) Description 08/26/2023 Telephone [facility] MEDICINE [address] [place] [address] Amelia Montalvo DO [address] [place] [address] Pre-op clearance notes Social History Tobacco Use [...] 08/15 and it can be faxed to [phone] documented in this encounter Plan of Treatment Upcoming Encounters Date Type Department Care Team (Late st Contact Info) Description 06/17/2025 10:00 AM EST Clinical Support [facility] [address] [place] [address] Mai Bishop RN 06/20/2025 1:30 PM EST Office Visit [facility] ADULT DENTAL [address] [place] [address] Cely Guy [address] [place] [address] documented as of this encounter Visit Diagnoses Not on filedocumented in this encounter Care Teams Labor Arbitrator Relationship Specialty Start Date End Date Amelia Montalvo DO [address] [place] [address] PCP - General Family Medicine 06/23/12 documented as of this encounter
--- OUTSIDE RECORDS SUMMARY | 2025-05-23 13:26 | XMS_ITS | Encounter Summary ---
Author Organization [employer] Address [address] [place] [address] Care Team Providers Care Lift Operator Name Role Phone Amelia Montalvo Primary Care Provider + [phone] Reason for Visit * Reason Comments Med Refill Encounter Details Date Type Department Care Team ([facility] st Contact Info) Description 10/25/2023 Refill [facility] [address] [place] [address] Iram Ascencio FNP Social History Tobacco Use [...] Description 06/17/2025 10:00 AM EST Clinical Support [facility] [address] [place] [address] Mai Bishop RN 06/20/2025 1:30 PM EST Office Visit [facility] ADULT DENT[facility] [address] [place] [address] Cely Guy [address] [place] [address] documented as of this encounter Visit Diagnoses Not on filedocumented in this encounter Care Teams Lift Operator Relationship Specialty Start Date End Date Amelia Montalvo DO [address] [place] [address] PCP - General Family Medicine 06/23/12 documented as of this encounter
--- OUTSIDE RECORDS SUMMARY | 2025-05-23 13:26 | XMS_ITS | Encounter Summary ---
Author Organization [employer] [facility] Address [address] [facility] [address] [place] [address] Care Team Providers Care Die Cast Die Maker Name Role Phone Amelia Montalvo DO Primary Care Provider [phone] Encounter Details Date Type Department Care Team (Late st Contact Info) Description 10/21/2023 Orders Only [facility] [address] [place] [address] Provider, MD Santos Social History Tobacco Use [...] Description 06/17/2025 10:00 AM EST Clinical Support [facility] [address] [place] [address] Mai Bishop RN 06/20/2025 1:30 PM EST Office Visit [facility] ADULT DENTAL [address] [place] [address] Cely Guy [address] [place] [address] documented as of this encounter Procedures Procedure Name Priority Date/Time Associated Diagnosis Comments HM COLONOSCOPY Routine 05/31/2019 10:01 AM EST documented in this encounter Results * Hm Colonoscopy (05/31/2019 10:01 AM EST) us Historical Provider MD HEALTH MAINTENANCE Final Result documented in this encounter Visit Diagnoses Not on filedocumented in this encounter Care Teams Die Cast Die Maker Relationship Specialty Start Date End Date Amelia Montalvo DO [address] [place] [address] PCP - General Family Medicine 06/23/12 documented as of this encounter
--- OUTSIDE RECORDS SUMMARY | 2025-05-23 13:26 | XMS_ITS | Encounter Summary ---
Author Organization [employer] Address [address] [facility] [address] [place] [address] Care Team Providers Care Rn Care Manager Name Role Phone Amelia Montalvo DO Primary Care Provider + [phone] Reason for Visit * Reason Comments Med Refill Encounter Details Date Type Department Care Team ([facility] st Contact Info) Description 11/15/2023 Refill [facility] [address] [place] [address] Charley Miller MD [address] [place] [address] Social History Tobacco Use Types Packs/Day Years [...] Description 06/17/2025 10:00 AM EST Clinical Support [facility] [address] [place] [address] Mai Bishop RN 06/20/2025 1:30 PM EST Office Visit [facility] ADULT D[facility] [address] [place] [address] Cely Guy [address] [place] [address] documented as of this encounter Visit Diagnoses Not on filedocumented in this encounter Care Teams Rn Care Manager Relationship Specialty Start Date End Date Amelia Montalvo DO [address] [place] [address] PCP - General Family Medicine 06/23/12 documented as of this encounter
--- OUTSIDE RECORDS SUMMARY | 2025-05-23 13:26 | XMS_ITS | Clinical Summary ---
Author Organization [employer] Address [address] [place] [address] 7t [place] [address] Care Team Providers Care Supervisor Finishing Room Name Role Phone Amelia Montalvo DO Primary Care Provider + [phone] Allergies Active Allergy Reactions Criticality Noted Date [...] at bedtime (pain). 150 g 3 Active Fiber-Lax 625 MG tablet TAKE [...] BY MOUTH EVERY MORNING 90 tablet Active Azelastine HCl 137 MCG/SPRAY solution INHALE 1 SPRAY IN EACH NOSTRIL TWICE DAILY 30 mL 3 Active divalproex (Depakote ER) 250 MG 24 hr tabletIndications :Chronic migraine without aura without status migrainosus, not intractable TAKE 1 TABLET BY MOUTH TWICE DAILY IN THE MORNING AND IN THE EVENING 60 tablet 3 Active fluticasone (Flonase) 50 MCG/ACT nasal spray INSTILL 2 SPRAYS IN EACH NOSTRIL ONCE DAILY 48 g Active albuterol (2.5 MG/3ML) 0.083% nebulizer solutionIndicatio ns:COPD exacerbation (CMS/HCC) (HCC) INHALE 1 AMPULE USING A NEBULIZER EVERY 4 HOURS NEEDED FOR WHEEZING OR SHORTNESS OF BREATH 90 mL 1 Active loratadine (Claritin) 10 MG tablet TAKE 1 TABLET BY MOUTH EVERY MORNING 90 tablet 1 Active zafirlukast (Accolate) 20 MG tablet TAKE 1 TABLET BY MOUTH TWICE DAILY IN THE MORNING AND IN THE EVENING AFTER MEALS 180 tablet 1 Active baclofen (Lioresal) 10 MG tablet TAKE 1/2 TABLET BY MOUTH THREE TIMES DAILY NEEDED FOR MUSCLE SPASMS 30 tablet 1 Active acetaminophen (Tylenol 8 Hour) 650 MG ER tabletIndications :Shoulder pain, unspecified chronicity, unspecified laterality Take 1 tablet (650 mg) by mouth every 8 (eight) hours if needed for mild pain. Do not crush, chew, or split. 60 tablet 3 Active albuterol (Ventolin HFA) 108 (90 Base) MCG/ACT inhalerIndication s:Mild intermittent asthma with acute exacerbation INHALE 2 PUFFS BY MOUTH EVERY 4 HOURS NEEDED FOR WHEEZING OR SHORTNESS OF BREATH 18 g 1 Active melatonin 5 MG tablet TAKE 1 TO 2 TABLETS BY MOUTH EVERY DAY AT BEDTIME NEEDED 60 tablet 3 Active meloxicam (Mobic) 7.5 MG tablet Take 1 tablet (7.5 mg) by mouth 2 times daily. 60 tablet 11 025 2025 Active clonazePAM (KlonoPIN) 1 MG tabletIndications :Other specified anxiety disorders Take 1 tablet (1 mg) by mouth 2 times daily for 28 days. Do not start before May 08, 2025. 56 tablet 025 2024 Active Salicylic Acid 40 % padsIndications:V iral wart on toe Apply 1 each topically every other day. 12 each Active alendronate (Fosamax) 70 MG tablet take 1 tablet by mouth once a week with 6 to 8 oz of water 30 min before first food of day. do not lie down for 30 minutes 4 tablet 5 Active Multiple Vitamins-Iron (Tab-A-Aurea/Iron) tablet TAKE 1 TABLET BY MOUTH EVERY MORNING WITH FOOD 90 tablet 3 Active famotidine (Pepcid) 40 MG tablet Take 1 tablet (40 mg) by mouth at bedtime. 30 tablet 11 023 2024 Discontinued Multiple Vitamins-Iron (Tab-A-Aurea/Iron) tablet TAKE 1 TABLET BY MOUTH EVERY MORNING WITH FOOD 90 tablet 3 024 2024 Discontinued alendronate (Fosamax) 70 MG tablet take 1 tablet by mouth once a week with 6 to 8 oz of water 30 min before first food of day. do not lie down for 30 minutes 4 tablet 5 025 2024 Discontinued melatonin 5 MG tablet [...] for 10 days. 20 tablet 025 2024 Hospital, Clinic, or Other [...] No evidence of acute respiratory distress. 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 Symptoms mild. No evidence of dehydration. -Prescribed predniSONE (Deltasone) 20 MG taper. -Supportive care advised. -Isolation recommendations discussed. Acute exacerbation of COPD with asthma ([facility]) 10/18/2024 Assessment & Plan (10/18/2024 1:25 PM EDT): Faint diffuse wheezing on exam. 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 -prescribed predniSONE (Deltasone) 20 MG taper. [...] and flonase daily -cont accolate daily -review justice court judge next visit PREET (generalized anxiety disorder) 07/25/2012 [...] Dr. Tang as scheduled, review next visit Chronic constipation 03/14/2012 Assessment & Plan (11/03/2023 [...] PM EDT): Topical abx prescribed COPD exacerbation ([facility]) 04/02/2024 04/13/2024 Assessment & Plan (04/02/2024 6:56 [...] from body habitus and lead placement; normal VT and corrected QT. Referred for stress test and TTE. Per pt to be performed tests this month. -In current evaluation by test puller for Atypical chest pain but difficult to [...] on exertion 10/04/2022 11/06/19 23 Influenza-like symptoms 10/04/2022/02/2023 Seasonal allergies 12/15/2017 3 Gingivitis 10/04/2013 11/05/2022 Encounters Date Type Department Care Team Description 05/22/2025 Refill [facility] [address] [place] [address] Amelia Montalvo DO 05/07/2025 11:15 AM EDT Office Visit [facility] [address] [place] [address] Sachi Bragg ANP Left foot pain (Primary Dx); Viral wart on toe; Hallux valgus, bilateral 05/07/2025 Travel 05/06/2025 Telephone [facility] [address] [place] [address] Sachi Bragg ANP chart prep 05/02/2025 Telephone [facility] [address] [place] [address] Amelia Montalvo DO telephone call 05/01/2025 Refill [facility] [address] [place] [address] Amelia Montalvo, Other specified anxiety disorders 04/26/2025 10:00 AM EDT Office Visit [facility] [address] [place] [address] Susie Medina MD Chronic right shoulder pain (Primary Dx) 04/26/2025 Travel 04/24/2025 Refill [facility] [address] [place] [address] Amelia Montalvo DO 04/19/2025 Refill [facility] [address] [place] [phone] Amelia Montalvo DO Mild intermittent asthma with acute exacerbation 04/16/2025 1:00 PM EDT Office Visit [facility] [address] [place] [phone] Nell Layton, KERLINE Shoulder pain, unspecified chronicity, unspecified laterality (Primary Dx) 04/16/2025 Results Follow-Up [facility] [address] [place] [phone] Nell Layton, KERLINE XR Shoulder 2+ Views Right 04/16/2025 Travel 04/14/[address] [address] Amelia Montalvo DO 04/01/2025 Refill [facility] [address] [place] [address] Amelia Montalvo DO Other specified anxiety disorders 03/24/2025 Refill [facility] [address] [place] [address] Amelia Montalvo DO 03/19/2025 11:00 AM EDT Office Visit [facility] [address] [place] [address] Kristian Mendoza, BERT Partial edentulism, unspecified edentulism class (Primary Dx) 03/18/2025 11:30 AM EDT Clinical Support [facility] [address] [place] [address] Mai Bishop RN Long-term current use of benzodiazepine (Primary Dx) 03/18/2025 Telephone [facility] [address] [place] [address] Mai Bishop, RN RESEARCH ASSOCIATE QUALITY CONTROL QC Agreement renewed today; UTOX Neg BZO 03/18/2025 Travel 03/15/2025 Refill [facility] [address] [place] [address] Amelia Montalvo DO COPD exacerbation ([facility]) 03/12/2025 Telephone [facility] [address] [place] [address] Mai Bishop RN NCNS RESEARCH ASSOCIATE QUALITY CONTROL QC Renewal today 03/06/2025 Refill [facility] [address] [facility] [place], [place] [phone] Amelia Montalvo DO Other specified anxiety disorders 03/04/2025 Telephone [facility] [address] [place] [address] Brooks Cely 02/21/2025 Refill [facility] [address] [place], [place] [phone] Amelia Montalvo DO from Last 3 Months Immunizations Immunization Administration Dates Next Due Hep B, Unspecified 10/30/2014,08/01/2014, 014 Hep B, adult 10/30/2014,08/01/2014,06/27/2014 Influenza High-dose Quadriva lent Preservative Free 05/13/2023,03/26/2022 Influenza injectable quadriv alent IIV4 with preservative 04/11/2018,03/24/2017,03/10/2016 Influenza injectable quadriv alent preservative free 07/01/2021,04/04/2019,02/27/2016 Influenza, High Dose Seasona l, Preservative Free 03/29/2025,04/16/2024 Influenza, Split (incl. yolanda fied surface antigen) [...] Sign Reading Time Taken Comments Blood Pressure 110/84 05/07/2025 11:03 AM EDT Pulse 80 05/07/2025 11:03 AM EDT Temperature 36.6 C (97.8 F) 05/07/2025 11:03 AM EDT Respiratory Rate 17 05/07/2025 11:03 AM EDT Oxygen Saturation 97% 04/16/2025 12:06 PM EDT Inhaled Oxygen Concentration - - Weight 77.2 kg (170 lb 4 oz) 05/07/2025 11:03 AM EDT Height 172.7 cm (5' 8 ) 05/07/2025 11:03 AM EDT Body Mass Index 25.89 05/07/2025 11:03 AM EDT Plan of Treatment Upcoming Encounters Date Type Department Care Team (Late st Contact Info) Description 06/17/2025 10:00 AM EST Clinical Support [facility] [address] [place] [address] Mai Bishop RN 06/20/2025 1:30 PM EST Office Visit [facility] [address] [place] [address] Cely Guy [address] [place] [address] Health Maintenance Due Date Last Done Comments CT Colonography 1953 FIT DNA/Cologuard 1955 FIT 1955 FOBT 1955 Sigmoidoscopy 1955 Mammogram 1993 Dental Prophylaxis 11/06/2024 05/07/2024, 0 12/07/2022, 03/29/2022, Additional history exists Dental X-Ray: Full Mouth 03/30/2025 03/29/2022, 12/09 Dental Oral Exam 05/09/2025 11/06/2024, , 12/07/2022, Additional history exists Depression Monitoring 07/11/2025 01/08/2025, 025 COVID-19 Vaccine ( season) 2025 03/29/2025, 04/16/2024, 08/15/2023, Additional history exists Dental X-Ray: Bitewings 11/07/2025 11/07/19 25, 02/23/2024, 12/07/2022, Additional history exists Alcohol/Substance Use Screening 01/08/2026 01/08/2025 SDOH Screening 01/08/2026 01/08/2025 Diabetes: Hemoglobin A1C 01/09/2026 025, 01/31/2024, 11/05/2022, Additional history exists Tobacco Screening 05/07/2026 05/07/2025 Colonoscopy 05/31/2029 05/31/2019 Colorectal Cancer Screening 05/31/2029 Hepatitis B Vaccines Completed 10/30/2014, 10/30/2014, 08/01/2014, Additional history exists Hepatitis C Screening Completed 01/06/2021 Zoster Vaccines Completed 03/02/2021, 12/10, 04/07/2014 Pneumococcal Vaccine: 50+ Years Completed 07/01/2021, 08/21/2018, 05/02/2012, Additional history exists RSV Patients and Patients Aged 60 years or older Completed 03/05/2024 Influenza Vaccine Completed 03/29/2025, , 05/13/2023, Additional history exists DTaP/Tdap/Td Vaccines Discontinued HIB Vaccines Aged Out No longer eligi [...] PM EDT Narrative 04/16/2025 1:51 PM EDT [place] [address] XRay Report Signed Patient: Maida Mitchell I MR#: [id number] 71 : 1955 Acct:[id number] Age/Sex: 69 / F ADM Date: 04/16/25 Loc: .[facility] Attending Dr: Nell Layton NP Ordering Physician: Nell Layton NP Date of Service: 04/16/25 Procedure(s): XR shoulder RT min 2V Accession Number(s): [id number] cc: Nell Layton NP; Amelia Montalvo DO [...] OV> 04/16/25 1348 DD/ 39 TD/TT: 04/16/251339 Systematic Theology Professor: Procedure Note Donotuseinterpreter, Image - 04/16/2025 [place] [address] XRay Report Signed Patient: Maida Mitchell IMR#: [id number] [birth year] : 1955cct:[id number] Age/Sex: 69 / FADM Date: 04/16/25 Loc: .[facility] Attending Dr: Nell Layton NP Ordering Physician: Nell Layton NP Date of Service: 04/16/25 Procedure(s): XR shoulder RT min 2V Accession Number(s): [id number] cc: Nell Layton NP; Amelia Montalvo DO [...] in OV> 04/16/25 1348 DD/ 39 TD/TT: 10/07/25 1340 Systematic Theology Professor: us Nell Layton GUEST SERVICES LEAD IMG XR PROCEDURES Final Result * (ABNORMAL) CBC auto differential (04/16/2025 1:18 PM EDT) White Blood Count 8.6 4.8 - 10.8 X10*3/uL [facility] Red Blood Count 4.58 4.20 - 5.50 X10*6/uL [facility] Hemoglobin 11.9(L) 12.0 - 16.0 g/dl [facility] Hematocrit 38.1 37.0 - 47.0 % [facility] Mean Corpuscular Volume 83.2 80.0 - 98.0 fL [facility] Mean Corpuscular Hemoglobin 26.0(L) 27.0 - 33.0 pg [facility] Mean Corpuscular HGB Conc 31.2 31.0 - 35.0 g/dl [facility] Red Cell Distribution Width 14.4 11.0 - 16.0 % [facility] Platelet Count 361 160 - 400 X10*3/uL [facility] Mean Platelet Volume 9.6 9.4 - 12.3 fL [facility] Neutrophils Percent Auto 69.6 45 - 73 % [facility] Imm Gran Pct Auto 0.2 0.0 - 0.4 % [facility] Lymphocytes Percent Auto 20.4 20 - 40 % [facility] Monocytes Percent Auto 7.7 2 - 11 % [facility] Eosinophils Percent Auto 1.9 0 - 4 % [facility] Basophils Percent Auto 0.2 0 - 2 % [facility] NRBC Pct Auto 0.0 0.0 - 0.2 /100WBC [facility] Neutrophils Absolute Auto 6.0 2.0 - 8.3 x10*3/uL [facility] Imm Gran Abs Auto 0.02 0.00 - 0.03 X10*3/uL [facility] Lymphocytes Absolute Auto 1.8 1.2 - 4.9 X10*3/uL [facility] Monocytes Absolute Auto 0.7 0.1 - 1.2 X10*3/uL [facility] Eosinophils Absolute Auto 0.2 0.0 - 0.4 X10*3/uL [facility] Basophils Absolute Auto 0.0 0.0 - 0.2 X10*3/uL [facility] NRBC Abs Auto 0.000 0.0 - 0.012 X10*3/uL [facility] Blood Venous blood specimen / Unknown 04/16/2025 1:18 PM EDT 04/16/2025 4:09 PM EDT us Nell Layton NP LAB BLOOD ORDERABLES Final Resul t Performing Organization Address City/[facility]/ZIP Co de Phone Number [facility] [address] [place] [phone] * Sed Rate by Modified Stormy (04/16/2025 1:18 PM EDT) Erythrocyte Sedimentation Rate 17 0 - 20 MM/HR [facility] Comment:Patients with polycy themia and many hemoglobin abnormalitiesmay have depressed sed rates whereas patients with anemiamay have elevated sed rates. Blood Venous blood specimen / Unknown 04/16/2025 1:18 PM EDT 04/16/2025 4:08 PM EDT us Nell Layton NP LAB BLOOD ORDERABLES Final Resul t Performing Organization Address City/[facility]/ZIP Co de Phone Number [facility] [address] [place] [phone] * (ABNORMAL) C-reactive Protein (04/16/2025 1:18 PM EDT) C Reactive Protein 1.25(H) < or = 0.50 mg/dL [facility] Blood Venous blood specimen / Unknown 04/16/2025 1:18 PM EDT 04/16/2025 4:09 PM EDT us Nell Layton GUEST SERVICES LEAD LAB BLOOD ORDERABLES Final Resul t Performing Organization Address City/[facility]/ZIP Co de Phone Number [facility] [address] [place] [phone] * (ABNORMAL) Comprehensive Metabolic Panel (04/16/2025 1:18 PM EDT) Sodium 141 135 - 145 mmol/L [facility] Potassium 3.8 3.3 - 5.1 mmol/L [facility] Chloride 107 96 - 108 mmol/L [facility] Carbon Dioxide 28 22 - 29 mmol/L [facility] Anion Gap 10(L) 12 - 20 [facility] Urea Nitrogen (BUN) 19(H) 9 - 16 mg/dL [facility] Creatinine, Serum 0.74 0.5 - 1.4 mg/dL [facility] Estimated Glomerular Filt Rate >60 [facility] Comment:Chronic Kidney Disea se: Estimated GFR < 60 mL/min/1.40x0Psivdo Kidney Disease: Estimated GFR < 15 mL/min/1.73m2 Glucose 63 60 - 115 mg/dL [facility] Calcium 8.9 8.4 - 10.2 mg/dL [facility] Bilirubin, Total 0.2 0.0 - 1.0 mg/dL [facility] Aspartate Amino Transferase 17 5 - 31 U/L [facility] Alanine Aminotransferase 13 0 - 31 U/L [facility] Total Protein 6.7 6.5 - 8.0 g/dL [facility] Albumin Level 4.1 3.5 - 5.0 g/dL [facility] Alkaline Phosphatase 73 39 - 117 U/L [facility] Blood Venous blood specimen / Unknown 04/16/2025 1:18 PM EDT 04/16/2025 4:09 PM EDT Nell Layton NP LAB BLOOD ORDERABLES Final Resul t Performing Organization Address [facility]/ZIP Co de Phone Number [facility] [address] [place] [address] [phone] * Drug Monitoring, Benzodiazepines, Quantitative, Urine (03/18/2025 12:08 PM EDT) Nordiazepam, GCMS Urine NEGATIVE [facility] Comment:CUTOFF 50 NG/MLPERFO RMING SITE:[email or web address], [address] [place], [place] [phone] Registered Veterinary Technician: APPLE WALSH MD, CLIA:[id number] Oxazepam, GCMS Urine NEGATIVE [facility] Comment:CUTOFF 50 NG/ML Lorazepam GCMS Urine NEGATIVE [facility] Comment:CUTOFF 50 NG/ML Alprazolam, GCMS Urine NEGATIVE [facility] Comment:CUTOFF 25 NG/ML Alphahydroxytriazolam, GCMS Ur NEGATIVE [facility] Comment:CUTOFF 50 NG/ML Temazepam, GCMS Urine NEGATIVE [facility] Comment:CUTOFF 50 NG/ML Alphahydroxymidazolam,GC MS Ur NEGATIVE [facility] Comment:CUTOFF 50 NG/ML Aminoclonazepam, GCMS Urine 188 [facility] Comment:CUTOFF 25 NG/ML Flurazepam Metabolite,GCMS Ur NEGATIVE [facility] Comment:CUTOFF 50 NG/ML Benzodiazepines Comments SEE NOTE [facility] Comment:This drug testing is for medical treatment only. Analysiswas performed as non-forensic testing and these resultsshould be used only by healthcare providers to renderdiagnosis or treatment, or to monitor progress of medicalconditions.Aminoclonazepam detected is consistent with the use of thedrug Clonazepam.Confirmation tests were developed and their analyticalperformance characteristics have been determined by [employer]. It has not been cleared or approved by the FDA.This assay has been validated pursuant to the CLIAregulations and is used for clinical purposes.Healthcare Providers needing Interpretation assistance,please contact us at [phone] ( ) M-F,8am to 10pm EST Urine (Urine, Random) 03/18/2025 12:08 PM EDT 03/18/2025 4:12 PM EDT us Amelia Montalvo DO LAB URINE ORDERABLES Final R esult [facility] [address] [place] [address] [phone] * (ABNORMAL) POCT OSMIN-14 Urine Drug [...] - 03/18/2025 12:00 PM EDT UTOX cup Lot#[id number] Exp. 04/16/26 Internal Pass Control Amelia Montalvo DO POINT OF CARE TEST ENTER/MAKAYLA T ORDERABLES Final Result * Hemoglobin A1c (01/09/2025 8:19 AM EDT) Hemoglobin A1c 5.7 <6.0 % [facility] Comment:Hemoglobin A1C Refer ence Range Adults: 4.8 - 6.0 % Non diabetic: < 6.0 % Goal: < 7.0 %Additional Action Suggested: > 8.0 %Note: Hemoglobin A1c results are invalid for patients with abnormal amounts of HbF. Blood transfusions may impact the HbA1c concentration in the patient sample. Estimated Average Glucose 117 mg/dL [facility] Comment:eAG = Estimated ave rage glucose which is %A1C expressed asaverage glucose, using the formula of the Q2S-OzxcoznVbgsnyv Glucose study (ADAG), Diabetes Care, Vol.31,#8,Feb. 2007 Blood Venous blood specimen / Unknown 01/09/2025 8:19 AM EDT 01/09/2025 11:22 AM EDT Amelia Montalvo DO LAB BLOOD ORDERABLES Final R esult Performing Organization Address City/[facility]/ZIP Co de Phone Number [facility] [address] [place] [phone] [phone] * HEPATITIS C AB W/REFL TO HCV RNA, QN, PCR (01/06/2021 8:12 AM EDT) HEPATITIS C ANTIBODY NON-REACT [facility] NON-REACT [facility] INDEX 0.01 <1.00 [facility] Comment: HCV antibody was non-reactive. There is no laboratory evidence of HCV infection. In most cases, no further action is required. However, if recent HCV exposure is suspected, a test for HCV RNA (test code 85151) is suggested. For additional information please refer to http://education.[employer]/faq/UQV26r5 (This link is being provided for informational/ educational purposes only.) 01/06/2021 8:12 AM EDT Amelia Montalvo DO HISTORICAL/NON ORDERABLE LAB S Final Result Performing Organization Address [facility] Co de Phone Number [facility] [address] [place] [address], * Hm Colonoscopy (05/31/2019 10:01 AM EST) Historical Provider HEALTH MAINTENANCE Final Result from Last 3 Months or Most Recently Relevant to Health Maintenance Insurance [facility] OPTIONS (HMO D-SNP) [facility] STANDARD DENTAL [facility] Care Teams Supervisor Finishing Room Relationship Specialty Start Date End Date Amelia Montalvo DO [address] [place] [phone] PCP - General Family Medicine 06/23/12
--- OUTSIDE RECORDS SUMMARY | 2025-05-23 13:26 | XMS_ITS | Encounter Summary ---
Author Organization [facility] Address [address] [place] [address] Care Team Providers Care Inventory Management Specialist Name Role Phone Amelia Montalvo DO Primary Care Provider [phone] Encounter Details Date Type Department Care Team (Latest Contact Info) Description 01/15/2021 Abstract [facility] CONVERSIONS Dental, Provider, DDS Social History [...] Description 06/17/2025 10:00 AM EST Clinical Support [facility] [address] [place] [address] Mai Bishop RN 06/20/2025 1:30 PM EST Office Visit [facility] ADULT DENTAL [address] [place] [address] Brooks Cely [address] [place] [address] documented as of this encounter Visit Diagnoses Not on filedocumented in this encounter Care Teams Inventory Management Specialist Relationship Specialty Start Date End Date Amelia Montalvo DO [address] [place] [address] PCP - General Family Medicine 06/23/12 documented as of this encounter
--- OUTSIDE RECORDS SUMMARY | 2025-05-23 13:26 | XMS_ITS | Encounter Summary ---
Author Organization [employer] Address [address] [facility] 7t [place] [address] Care Team Providers Care Supervisor Pyrotechnic Loading Name Role Phone Amelia Montalvo DO Primary Care Provider + [phone] Reason for Visit * Reason Comments Med Refill Encounter Details Date Type Department Care Team ([facility] st Contact Info) Description 11/07/2023 Refill [facility] MEDICINE [address] [place] [address] Amelia Montalvo DO [address] [place] [address] Other specified anxiety disorders Social History Tobacco [...] 10:00 AM EST Clinical Support [facility] MEDICINE [address] [place] [address] Mai Bishop RN 06/20/2025 1:30 PM EST Office Visit [facility] ADULT DENTAL [address] [place] [address] Cely Guy [address] [place] [address] documented as of this encounter Visit Diagnoses Diagnosis Other specified anxiety disorders documented in this encounter Care Teams Supervisor Pyrotechnic Loading Relationship Specialty Start Date End Date Amelia Montalvo DO [address] [place] [address] PCP - General Family Medicine 06/23/12 documented as of this encounter
--- OUTSIDE RECORDS SUMMARY | 2025-05-23 13:26 | XMS_ITS | Clinical Summary ---
Author Organization [facility] Address [address] [facility] [address] [place] [address] Phone Care Team Providers Care Solidworks Designer Name Role Phone Unavailable Primary Care Provider [...] file Medical Devices Not on file Insurance [facility] MEDICARE REPLACEMENT JOSE SNOWDEN [id number] O MEDICARE REPLACEMENT MEDICARE REPLACEMENT MEDICARE REPLACEMENT MEDICARE REPLACEMENT [facility] MEDICARE REPLACEMENT Additional Source Comments The information contained in this document represents components of the legal health record. It is not the complete legal health record.[facility]
--- OUTSIDE RECORDS SUMMARY | 2025-05-23 13:26 | XMS_ITS | Encounter Summary ---
Author Organization [facility] Address [address] [facility] 7t [place] [address] Care Team Providers Care 3Rd Pressman Name Role Phone Amelia Montalvo DO Primary Care Provider [phone] Encounter Details Date Type Department Care Team (Latest Contact Info) Description 03/29/2022 Abstract [facility] CONVERSIONS Dental, Provider, DDS Social [...] Clinical Support [facility] MEDICINE [address] [place] [address] Mai Bishop RN 06/20/2025 1:30 PM EST Office Visit [facility] ADULT DENTAL [address] [place] [address] Brooks Cely [address] [place] [address] documented as of this encounter Visit Diagnoses Not on filedocumented in this encounter Care Teams 3Rd Pressman Relationship Specialty Start Date End Date Amelia Montalvo DO [address] [place] [address] PCP - General Family Medicine 06/23/12 documented as of this encounter
--- OUTSIDE RECORDS SUMMARY | 2025-05-23 13:26 | XMS_ITS | Encounter Summary ---
Author Organization [employer] Address [address] [facility] 7t [place] [address] Care Team Providers Care Editor News Name Role Phone Amelai Montalvo DO Primary Care Provider [phone] Reason for Visit * Reason Comments Med Refill Encounter Details Date Type Department Care Team ([facility] st Contact Info) Description 12/04/2024 Refill [facility] MED & PEDS [address] [place] [address] Amelia Montalvo DO [address] [place], [place] [phone] Other specified anxiety disorders Social History Tobacco [...] 06/17/2025 10:00 AM EST Clinical Support [facility] MEDICINE [address] [place] [address] Mai Bishop RN 06/20/2025 1:30 PM EST Office Visit [facility] ADULT DENTAL [address] [place] [address] Cely Guy [address] [place] [address] documented as of this encounter Visit Diagnoses Diagnosis Other specified anxiety disorders documented in this encounter Additional Health Concerns Assessment Noted Time PHQ-9 Depression Total Score: 18 024 2:12 PM EDT documented as of this encounter Care Teams Editor News Relationship Specialty Start Date End Date Amelia Montalvo DO [address] [place] [address] PCP - General Family Medicine 06/23/12 documented as of this encounter
--- OUTSIDE RECORDS SUMMARY | 2025-05-23 13:27 | XMS_ITS | Encounter Summary ---
Author Organization [employer] Address [address] [facility] 7t [place] [address] Care Team Providers Care Lens Blocker Name Role Phone Amelia Montalvo DO Primary Care Provider [phone] Encounter Details Date Type Department Care Team (Late st Contact Info) Description 10/26/2022 Orders Only [facility] MEDICINE [address] [place] [address] Michelle Vides LPN Social History Tobacco Use [...] 10:00 AM EST Clinical Support [facility] MEDICINE [address] [place] [address] Mai Bishop RN 06/20/2025 1:30 PM EST Office Visit [facility] ADULT DENTAL [address] [place] [address] Cely Guy [address] [place] [address] documented as of this encounter Visit Diagnoses Not on filedocumented in this encounter Care Teams Lens Blocker Relationship Specialty Start Date End Date Amelia Montalvo DO [address] [place] [address] PCP - General Family Medicine 06/23/12 documented as of this encounter
--- OUTSIDE RECORDS SUMMARY | 2025-05-23 13:27 | XMS_ITS | Encounter Summary ---
Author Organization [employer] Address [address] [facility] 7t [place] [address] Care Team Providers Care Education Liaison Name Role Phone Amelia Montalvo DO Primary Care Provider [phone] Reason for Visit * Reason Comments Med Refill Encounter Details Date Type Department Care Team ([facility] st Contact Info) Description 05/22/2025 Refill [facility] MEDICINE [address] [place] [address] Amelia Montalvo DO [address] [place] [address] Social History Tobacco Use Types Packs/Day Years [...] Description 06/17/2025 10:00 AM EST Clinical Support [facility] MEDICINE [address] [place] [address] Mai Bishop RN 06/20/2025 1:30 PM EST Office Visit [facility] ADULT DENTAL [address] [place] [address] Cely Guy [address] [place] [address] documented as of this encounter Visit Diagnoses Not on filedocumented in this encounter Additional Health Concerns Assessment Noted Time PHQ-9 Depression Total Score: 16 025 12:09 PM EDT documented as of this encounter Care Teams Education Liaison Relationship Specialty Start Date End Date Amelia Montalvo DO [address] [place] [address] PCP - General Family Medicine 06/23/12 documented as of this encounter
--- OUTSIDE RECORDS SUMMARY | 2025-05-23 13:27 | XMS_ITS | Encounter Summary ---
Author Organization [employer] Address [address] [facility] 7t [place] [address] Care Team Providers Care Sweatband Perforator Name Role Phone Amelia Montalvo DO Primary Care Provider [phone] Reason for Visit * Reason Comments Med Refill Encounter Details Date Type Department Care Team ([facility] st Contact Info) Description 03/14/2024 Refill [facility] MEDICINE [address] [place] [address] Amelia Montalvo DO [address] [place] [address] Other specified anxiety disorders Social History Tobacco [...] 10:00 AM EST Clinical Support [facility] MEDICINE [address] [place] [address] Mai Bishop RN 06/20/2025 1:30 PM EST Office Visit [facility] ADULT DENTAL [address] [place] [address] Ceyl Guy [address] [place] [address] documented as of this encounter Visit Diagnoses Diagnosis Other specified anxiety disorders documented in this encounter Additional Health Concerns Assessment Noted Time PHQ-9 Depression Total Score: 18 024 2:12 PM EDT documented as of this encounter Care Teams Sweatband Perforator Relationship Specialty Start Date End Date Amelia Montalvo DO [address] [place] [address] PCP - General Family Medicine 06/23/12 documented as of this encounter
--- OUTSIDE RECORDS SUMMARY | 2025-05-23 13:27 | XMS_ITS | Encounter Summary ---
Author Organization [employer] Address [address] [facility] 7t [place] [address] Care Team Providers Care Autism Specialist Name Role Phone Amelia Montalvo DO Primary Care Provider [phone] Reason for Visit * Reason Comments Med Refill Encounter Details Date Type Department Care Team ([facility] st Contact Info) Description 12/09/2023 Refill [facility] MEDICINE [address] [place] [address] Amelia Montalvo DO [address] [place] [address] Social History Tobacco Use Types Packs/Day Years [...] Description 06/17/2025 10:00 AM EST Clinical Support [facility] MEDICINE [address] [place] [address] Mai Bishop RN 06/20/2025 1:30 PM EST Office Visit [facility] ADULT DENTAL [address] [place] [address] Cely Guy [address] [place] [address] documented as of this encounter Visit Diagnoses Not on filedocumented in this encounter Care Teams Autism Specialist Relationship Specialty Start Date End Date Amelia Montalvo DO [address] [place] [address] PCP - General Family Medicine 06/23/12 documented as of this encounter
--- OUTSIDE RECORDS SUMMARY | 2025-05-23 13:27 | XMS_ITS | Encounter Summary ---
Author Organization [employer] Address [address] [facility] 7t [place] [address] Care Team Providers Care Strain Technician Name Role Phone Katia Amelia Primary Care Provider [phone] Encounter Details Date Type Department Care Team (Late st Contact Info) Description 11/04/2022 Abstract [facility] MEDICINE [address] [place] [address] Amelia Montalvo DO [address] [place] [address] Social History Tobacco Use Types Packs/Day Years [...] Description 06/17/2025 10:00 AM EST Clinical Support [facility] MEDICINE [address] [place] [address] Mai Bishop RN 06/20/2025 1:30 PM EST Office Visit [facility] ADULT DENTAL [address] [place] [phone] Cely Guy [address] [place] [address] documented as of this encounter Visit Diagnoses Not on filedocumented in this encounter Care Teams Strain Technician Relationship Specialty Start Date End Date Amelia Montalvo DO [address] [place] [address] PCP - General Family Medicine 06/23/12 documented as of this encounter
--- OUTSIDE RECORDS SUMMARY | 2025-05-23 13:27 | XMS_ITS | Encounter Summary ---
Author Organization [employer] Address [address] [facility] 7t [place] [address] Care Team Providers Care Resolution Manager Name Role Phone Amelia Montalvo DO Primary Care Provider + [phone] Reason for Visit * Reason Comments Med Refill Encounter Details Date Type Department Care Team (Late st Contact Info) Description 12/07/2022 Refill [facility] [address] [place] [address] Iram Ascencio FNP Social History Tobacco Use [...] Description 06/17/2025 10:00 AM EST Clinical Support [facility] MEDICINE [address] [place] [address] Mai Bishop RN 06/20/2025 1:30 PM EST Office Visit [facility] ADULT DENTAL [address] [place] [address] Cely Guy [address] [place] [address] documented as of this encounter Visit Diagnoses Not on filedocumented in this encounter Care Teams Resolution Manager Relationship Specialty Start Date End Date Amelia Montalvo DO [address] [place] [address] PCP - General Family Medicine 06/23/12 documented as of this encounter
--- OUTSIDE RECORDS SUMMARY | 2025-05-23 13:27 | XMS_ITS | Encounter Summary ---
Author Organization [employer] Address [address] [facility] 7t [place] [address] Care Team Providers Care Intelligence Research Specialist Name Role Phone KatiaAmelia Primary Care Provider [phone] Encounter Details Date Type Department Care Team (Late st Contact Info) Description 10/07/2022 Orders Only [facility] CHC MED & PEDS [address] [place], [place] [phone] Amelia Kemp LPN Social History Tobacco Use [...] Description 06/17/2025 10:00 AM EST Clinical Support [facility] MEDICINE [address] [place] [address] Mai Bishop RN 06/20/2025 1:30 PM EST Office Visit [facility] ADULT DENTAL [address] [place] [address] Cely Guy [address] [place] [address] documented as of this encounter Procedures Procedure Name Priority Date/Time Associated Diagnosis Comments CT HEAD WO CONTRAST Routine 10/22/2022 1 0:52 AM EDT documented in this encounter Results * CT Head w/o Contrast (10/22/2022 10:52 AM EDT) Anatomical Region Laterality Modality Head, Neck Computed Tomogra phy 10/22/2022 10:5 2 AM EDT Narrative 11/02/2022 3:00 PM EDT [address] [address] [address] Scan Report Signed Patient: Maida Mitchell I MR#: [id number] 73 : 1955 Acct:[id number] Age/Sex: 67 / F ADM Date: 10/22/22 Loc: HO.CT Attending Dr: Igor Landry MD Ordering Physician: IGOR LANDRY MD Date of Service: 10/22/22 Procedure(s): CT head/brain wo IV con Accession Number(s): [id number] cc: IGOR LANDRY MD EXAMINATION: CT HEAD [...] in OV> 11/02/22 1457 DD/ 1052 TD/TT: Rn Appeals: REGINA Procedure Note Donotuseinterpreter, Image - 11/02/[address] [address] [address] Scan Report Signed Patient: Maida Mitchell IMR#: [id number] : 1955cct:[id number] Age/Sex: 67 / FADM Date: 10/22/22 Loc: HO.CT Attending Dr: Igor Landry MD Ordering Physician: IGOR LANDRY MD Date of Service: 10/22/22 Procedure(s): CT head/brain wo IV con Accession Number(s): [id number] cc: IGOR LANDRY MD EXAMINATION: CT HEAD [...] in OV> 11/02/22 1457 DD/ 1052 TD/TT: Rn Appeals: REGINA [facility] External Provider IMG CT PROCEDURES Edited Result - Final documented in this encounter Visit Diagnoses Not on filedocumented in this encounter Care Teams Intelligence Research Specialist Relationship Specialty Start Date End Date Amelia Montalvo DO [address] [place] [address] PCP - General Family Medicine 06/23/12 documented as of this encounter
--- OUTSIDE RECORDS SUMMARY | 2025-05-23 13:27 | XMS_ITS | Encounter Summary ---
Author Organization [employer] Address [address] [facility] 7t [place] [address] Care Team Providers Care Category Director Name Role Phone Amelia Montalvo DO Primary Care Provider [phone] Reason for Visit * Reason Comments Med Refill Encounter Details Date Type Department Care Team ([facility] st Contact Info) Description 11/06/[address] [facility] MEDICINE [address] [place] [address] Amelia Montalvo DO [address] [place] [address] Vitamin B12 deficiency Social History Tobacco Use [...] 10:00 AM EST Clinical Support [facility] MEDICINE [address] [place] [address] Mai Bishop RN 06/20/2025 1:30 PM EST Office Visit [facility] ADULT DENTAL [address] [place] [address] Cely Guy [address] [place] [address] documented as of this encounter Visit Diagnoses Diagnosis Vitamin B12 deficiency Other B-complex deficiencies documented in this encounter Additional Health Concerns Assessment Noted Time PHQ-9 Depression Total Score: 18 024 2:12 PM EDT documented as of this encounter Care Teams Category Director Relationship Specialty Start Date End Date Amelia Montalvo DO [address] [place] [address] PCP - General Family Medicine 06/23/12 documented as of this encounter
--- OUTSIDE RECORDS SUMMARY | 2025-05-23 13:27 | XMS_ITS | Patient Health Record ---
Author Organization [facility] Address [address] [place] [address] Care Team Providers Care Chip Tuner Name Role Phone Clinton De Leon Jr [phone] Reason For Referral No Information Plan Of Treatment No Information
== END 2025-05-23 11:25 | disposition home or self-care (01) ==
LOC: HO.HPS 10:51
PROVIDERS: PCP Family Medicine; Visit Provider Internal Medicine
DX: J30.9 Allergic rhinitis, unspecified (principal); J44.9 Chronic obstructive pulmonary disease, unspecified; F41.9 Anxiety disorder, unspecified; J40 Bronchitis, not specified as acute or chronic
CPT/HCPCS: 99213

== ENCOUNTER → 2025-05-23 10:50 | Outpatient (BNVA) | payer OTHER, SELFPAY | PROVIDERS: PCP Family Medicine; Visit Provider Internal Medicine | DX: R11.0 Nausea (principal); K59.04 Chronic idiopathic constipation; K21.9 Gastro-esophageal reflux disease without esophagitis; K59.9 Functional intestinal disorder, unspecified; J30.9 Allergic rhinitis, unspecified; J44.9 Chronic obstructive pulmonary disease, unspecified; F41.9 Anxiety disorder, unspecified; J40 Bronchitis, not specified as acute or chronic; Z87.891 Personal history of nicotine dependence | CPT/HCPCS: 99212 ==

== ENCOUNTER 2025-05-23 11:30 | Outpatient (AMB) | payer OTHER, SELFPAY ==
--- NOTE | 2025-05-23 11:40 | MHC.OFFVIS ---
Vital Signs 05/23/25 11:42 Height 5 ft 8 in Weight 170 lb BMI 25.8 BP 125/65 Blood Pressure Location Lt brachial Position Sitting Pulse 68 Intake Visit Reasons: Follow up [facility]IC Allergies vancomycin (VANCOMYCIN) Allergy (Severe, Verified 05/23/25 15:56) REDNESS,RASH,SWELLING Tetanus & Diphtheria Tox,Adult Allergy (Severe, Uncoded 05/23/25 15:56) FEVER,DIFF.BREATHING HPI HPI Follow up [facility]: Details: Assessment & Plan (1) Nausea: Code(s): R11.0 - Nausea Category: Medical (2) Chronic idiopathic constipation: Code(s): K59.04 - Chronic idiopathic constipation Category: Medical (3) GERD (gastroesophageal reflux disease): Code(s): K21.9 - Gastro-esophageal reflux disease without esophagitis Category: Medical (4) Small bowel motility disorder: Code(s): K59.9 - Functional intestinal disorder, unspecified Category: Medical Plan [place] #Cristal Sanchez She is now continuing on her Reglan, Linzess 290, Colace, bisacodyl, omeprazole 20 mg twice a day and famotidine for breakthrough. She says that she is having more nausea recently, over just the last couple of days. Looking at the refill, it does not appear that I have refilled her Linzess 290 or her omeprazole since last May and she would have run out in November. The Linzess is not in the medication box, and with discussion it seem she is not taking it every day, either r/t forgetfulness or r/t her thinking that I am moving my bowels. It seems that this starting and stopping of the bowels is c/t her nausea as she also reports straining even when she does move her bowels. She can not ID any new medications or medication changes, sick contacts, diet changes etc preceding the change. She notes that the nausea is associated with just after a BM or with drinking coffee. I think that bowel irritability is at the root of the nausea with incomplete emptying and lack of bowel regimen playing in to the nausea reflex. She will be going to [place] to take care of her Mom who is sick and will be away for 4 weeks. I spend time on the phone with her pharmacy to confirm that she has all of her medications. ROV 6 weeks. Medications: Refilled linaclotide (Linzess) PLEASE PUT IN MED BOX FORMAT 290 mcg PO QAM 30 caps 6RF 30 days K59.04 - Chronic idiopathic constipation bisacodyl 2 tabs qhs and 1 qam orally bedtime; PLEASE PUT IN PILL PACKS 60 tabs 1RF K59.04 - Chronic idiopathic constipation omeprazole 20 mg PO BID 60 caps 6RF metoclopramide HCl (Reglan) PLEASE PUT THIS IS A PILL BOX FORMAT SCHEDULED QID, second request please put this in the pill box scheduled qid 10 mg PO QID 120 tabs 6RF K59.9 - Functional intestinal disorder, unspecified docusate sodium Please put into pill pack for bid dosing 100 mg PO BID 60 caps 6RF TWO TODAY'S VISIT [place] Shayy Sanchez [facility] Medical History Pelvic cramping Encounter for well woman exam with routine gynecological exam Left knee pain Osteoarthritis of left knee COPD exacerbation Hypoxia Gastric pain History of revision of total replacement of right knee joint Lumbar radiculopathy Osteoarthritis GERD (gastroesophageal reflux disease) Small bowel motility disorder COPD (chronic obstructive pulmonary disease) Anxiety Surgical History Status post bilateral unicompartmental knee replacement Status post total knee replacement, left (~12/20/23) History of left knee replacement History of right knee joint replacement History of total right knee replacement History of ear surgery Hx of colonoscopy History of esophagogastroduodenoscopy (EGD) Family History Father Diabetes Mother Diabetes Osteoporosis HTN (hypertension) Sister Pancreas cancer Social History Household Members: None Housing: Apartment Are you a primary cattle care worker to a significant other at home: No Do you presently have visiting nurse or other home services: No Alcohol intake: never Patient Tobacco Use Status: Former Tobacco user Tobacco use type: Cigarette e-Cigarette/Vaping Use: Never Used Second Hand Smoke Exposure: No Advance Directives Date on File: 11/28/20 service: No Current occupational status: unemployed and disabled 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 Female Reproductive History Menstrual Age of Menarche: 13 Review of Systems Const Denies fatigue, Denies fever(s), Denies night sweats, Denies poor appetite and Denies weight loss Eyes Details: glasses Reports requires corrective lenses and Reports other (glasses) ENT Reports Normal hearing present, Denies dental pain, Denies dysphagia, Denies hearing loss, Denies mouth pain, Denies odynophagia, Denies throat swelling, Denies tongue swelling and Reports other (Dentition adequate) Card Reports no additional complaints Resp Reports no additional complaints GI Details: Denies abdominal pain, Denies melena, Denies bloating, Denies hematochezia, Reports constipation, Denies GI cramping, Denies dysphagia, Denies excessive flatus, Denies early satiety, Reports heartburn, Reports diarrhea, Denies nausea, Denies odynophagia, Denies vomiting and Denies hematemesis Skin/Breast Denies pruritus, Denies lesions, Denies rash and Denies jaundice Neuro Reports Normal hearing present and Denies Abnormal speech present Endo Denies fatigue Aller/Immun Denies throat swelling and Denies tongue swelling Physical Exam Vital Signs: Last Vital Signs Pulse 68 05/23/25 11:42 BP 125/65 05/23/25 11:42 BMI result Body Mass Index 25.8 Const General: cooperative, no acute distress, well developed and well groomed Nutritional Appearance: average body habitus and well nourished Orientation/consciousness: oriented to person, oriented to place and oriented to time Limitations: language barrier HEENT Head: Yes normocephalic and Yes atraumatic Eyes General: appearance normal, both eyes and all related structures Pupils: Equal, round and reactive pupils present Neck Neck: Yes normal visual inspection and Yes no lymphadenopathy Thyroid: Thyroid normal Resp Effort & Inspection: normal respiratory effort and able to speak in complete sentences Auscultation: clear to auscultation bilaterally Cardio Rate: regular rate Rhythm: regular rhythm Heart sounds: Normal, physiologic split S2 sound present Peripheral pulses: radial pulses present and posterior tibial pulses present GI Inspection: No distended and No Abdominal panniculus present Palpation (GI): Soft to palpation, nontender, no guarding, not rigid and No hepatosplenomegaly present Percussion: Yes normal to percussion Auscultation: normal bowel sounds Rectal Exam - Female: deferred Skin General skin exam: no rashes or lesions noted, turgor normal, skin not dry, no jaundice, No spider nevi and no striae Rashes: no rashes Nails: normal Neuro General: oriented to person, oriented to place and oriented to time Cranial nerves: Yes Equal, round and reactive pupils present and Yes Normal hearing present Speech: No Abnormal speech present Extrem General: Yes normal to inspection, No clubbing, No cyanosis and No edema Psych Appearance: grossly normal and well kempt Mental Status: mental status grossly normal Speech and movement: Normal speech and movement present Affect: normal affect Attitude: cooperative Thought process: Normal thought process present and not confabulating Thought content: Normal thought content present Insight: Limited insight present (Psych) Judgement: Limited judgement present (Psych) Assessment & Plan Assessment & Plan (1) GERD (gastroesophageal reflux disease): Code(s): K21.9 - Gastro-esophageal reflux disease without esophagitis Category: Medical (2) Nausea: Code(s): R11.0 - Nausea Category: Medical (3) Chronic idiopathic constipation: Code(s): K59.04 - Chronic idiopathic constipation Category: Medical (4) Small bowel motility disorder: Code(s): K59.9 - Functional intestinal disorder, unspecified Category: Medical Plan [place] #Monalisa Live She is now continuing on her Reglan, Linzess 290, Colace, bisacodyl, omeprazole 20 mg twice a day and famotidine for breakthrough. with discussion, she tells me that she is only taking the Linzess on days when she does not go out because it is giving her diarrhea. However on further review it turns out that she is also taking bisacodyl every day and Colace. Initially I was going to lower the dose of the Linzess, but I think what would be more prudent would be to stop the bisacodyl and the Colace and see if we can get along with just the Linzess at 290 micro g. I say this because she is complaining of a funny crampy feeling when she moves her bowels which might be from over driving her colon. Also the Linzess is better at addressing the pain of chronic idiopathic constipation. We did have some difficulty explaining this to her as she seemed to have trouble understanding how the bisacodyl is impacting her diarrhea even though she does not take it at the same time as the Linzess. I had to educate her that it is still in effect in her system and that is why she is having so many troubles. Her gastroparesis and her GERD appear to be well controlled. Stop bisa and colace, keep Linzess 290 as she is having diarrhea. ROV 6 weeks. Medications: On Hold bisacodyl Hold Comment: Doctor's Order 2 tabs qhs and 1 qam orally bedtime; PLEASE PUT IN PILL PACKS 60 tabs 1RF K59.04 - Chronic idiopathic constipation docusate sodium Hold Comment: Doctor's Order 100 mg PO BID 60 caps 6RF Coding Level of Care Code Est Pt Level 3 (45949) Diagnoses GERD (gastroesophageal reflux disease) K21.9 Nausea R11.0 Chronic idiopathic constipation K59.04 Small bowel motility disorder K59.9
--- NOTE | 2025-05-23 11:41 | A.OFFVIS_ITS ---
Vital Signs 05/23/25 11:42 Height 5 ft 8 in Weight 170 lb BMI 25.8 BP 125/65 Blood Pressure Location Lt brachial Position Sitting Pulse 68 Intake Visit Reasons: Follow up [facility]IC Intake Note: Patient in office today in follow up of [facility]IC. CC: Patient reports that she sometimes have some constipation. She also reports that her lung doctor just told her that she has bronchitis and sent abx to her pharmacy. Assistant Production Manager Required: Yes Accompanied by: Self / Same As Patient Allergies vancomycin (VANCOMYCIN) Allergy (Severe, Verified 05/23/25 11:44) REDNESS,RASH,SWELLING Tetanus & Diphtheria Tox,Adult Allergy (Severe, Uncoded 05/23/25 11:24) FEVER,DIFF.BREATHING PFSH Medical History Pelvic cramping Encounter for well woman exam with routine gynecological exam Left knee pain Osteoarthritis of left knee COPD exacerbation Hypoxia Gastric pain History of revision of total replacement of right knee joint Lumbar radiculopathy Osteoarthritis GERD (gastroesophageal reflux disease) Small bowel motility disorder COPD (chronic obstructive pulmonary disease) Anxiety Surgical History Status post bilateral unicompartmental knee replacement Status post total knee replacement, left (~12/20/23) History of left knee replacement History of right knee joint replacement History of total right knee replacement History of ear surgery Hx of colonoscopy History of esophagogastroduodenoscopy (EGD) Family History Father Diabetes Mother Diabetes Osteoporosis HTN (hypertension) Sister Pancreas cancer Social History Household Members: None Housing: Apartment Are you a primary pet care technician to a significant other at home: No Do you presently have visiting nurse or other home services: No Alcohol intake: never Patient Tobacco Use Status: Former Tobacco user Tobacco use type: Cigarette e-Cigarette/Vaping Use: Never Used Second Hand Smoke Exposure: No Advance Directives Date on File: 11/28/20 service: No Current occupational status: unemployed and disabled 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
[2025-05-23 11:42] VITALS: BP 125/65; PULSE 68; BMI 25.8
--- OUTSIDE RECORDS SUMMARY | 2025-05-23 14:43 | XMS_ITS | Data Portability ---
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 I have reviewed and agree with the Assessment and Plan as documented by the Floor Worker [place]. We discussed the diagnostic uncertainty of home [...] in the field was performed by my hemmer automatic colleague, as noted above, I provided real-time [...] RSV RNA panel, AKASH+probe, respiratory specimen 2023 [place] [facility] (Centralized Electronic Ordering - All Locations), Patient Can Go To The Location Of Their Choice, [id number] 04:09:28 rapid SARS CoV 2 Ag, QL IA, respiratory specimen 2023 024 [email or web address] 0 [facility], [address] [place] [address], [id number] 4 12:36:39 rapid flu (A+B) 2023 024 [email or web address] 0 [facility], [address] [place] [address], [id number] 4 12:36:41 Referral None recorded. Procedures None recorded. Surgeries None recorded. Imaging None recorded. Medication Orders prednisone 20 mg tablet 2023 [email or web address] [facility], [address] [place] [address], [id number], 16:11:44 prednisone 20 mg tablet 2023 [facility], [address] [place] [address], [id number], 4 12:49:19 albuterol sulfate 2.5 mg/3 mL (0.083 %) solution for nebulizatio n 2023 [facility], [address] [place] [address], [id number], 4 12:49:19 Zithromax Z-Thomas 250 mg tablet 2023 024 [facility], [address] [place] [address], [id number], 4 12:26:06 Mucinex DM 30 mg-600 mg tablet,exte nded release 12 hr 2023 024 [facility], [address] [place] [address], [id number], 4 11:00:00 Patient TargetsNo targets recorded. Patient InstructionsNo instructions recorded. Reason for Referral None Reported. Results Created Date Observation Date Name Description Value Unit Range Abnormal Flag Note LastModifiedBy Organization Detail LastModifiedTime 07/28/1907/28/2023 COVID -19, RSV, FLU A/B PCR covid-19 PCR specimen source NASAL Not Available [facility] (Centralized Electronic Ordering - All Locations) Patient Can Go To The Location Of Their Choice, [id number] 07/29/2023 04:09:28 07/28/1907/29/2023 COVID -19, RSV, FLU [...] Go To The Location Of Their Choice, [id number] 07/29/2023 04:09:28 07/28/1907/29/2023 COVID -19, RSV, FLU [...] The Location Of Their Choice, 07/29/2023 04:09:28 07/28/1907/29/2023 COVID -19, RSV, FLU A/B PCR RSV [...] The Location Of Their Choice, 07/29/2023 04:09:28 07/28/1907/29/2023 COVID -19, RSV, FLU A/B PCR covid-19 PCR result (neg) NEGAT JULIOCESAR 2019- novel Coron aviru s (2018nCoV ) not detec pilar by real- time RT-PC R. Note: If clini cynthia suspi cion for COVID -19 is high, mditri nue to maint ain preca ution s and consi maria de jesus repea t testi ng. Resul t repor pilar to the [facility]. All test resul ts must be corre lated with clini cynthia findi ngs. This test has been autho rized by the FDA under an Emerg ency Use Autho rizat ion (EUA) for use by autho rized labor deanai es. Testi ng perfo rmed on the Cephe id GeneX pert utili zing real- time RT-PC R. Not Available [facility] (Centralized Electronic Ordering - All Locations) Patient Can Go To The Location Of Their Choice, 07/29/2023 04:09:28 07/28/1907/28/2023 rapid flu (A+B) Flu negati ve Not Available [facility] ed [address] [place] [address], [id number] 07/28/2023 12:36:12 07/28/19 24 07/28/2023 rapid SARS CoV 2 Ag, QL IA, respi rator y speci men rapid SARS CoV 2 Ag, QL IA, respiratory specimen negati ve Not Available [facility] ed [address] [place] [address], [id number] 07/28/2023 12:36:04 Result Notes None recorded. Medical Equipment None Reported. Allergies Allergen ID Allergen Name Allergen Category Reaction Reaction Severity Criticality Documentation Date Start Date Code Code System Note Provider Name and Address Organization Details Recorded Time 4376 vancomyci n medicatio n Not available Not available Not available 07/28/2023 25004 RxNorm Not Available [facility] - production 4 03:35:06 4377 Vaccine product containin g only Clostridi um tetani antigen (medicina l product) medicatio n Not available Not available Not available 07/28/2023 71465 2002 SNOMED Janette Nice MD [address] [place] [address],[address], [place], [phone] [facility] [employer] 4 12:27:09 Medications Name Sig Start Date Stop Date Status Note LastModified by Organization Details LastModified Time medbox status USE DIRECTED active Not Available Not Available No t Available pulse oximet airial [id number] USE FOR SHORTNESS OF BREATH OR FOR [...] blood by Pulse oximetry Heart rate Systolic And Diastolic Systolic And Diastolic Provider Name and Address Organization Details Last Updated DateTime 4 98.2 [degF] 20 /min 107 /min 97 % 97 % 97 % 97 % 97 /min 134/82 mm[Hg] 138/86 mm[Hg] Not Available [employer] 4 12:42:06 Date Recorded Oxygen saturation Oxygen saturation in Arterial blood by Pulse oximetry Heart rate Respiratory rate Body temperature Systolic And Diastolic Provider Name and Address Organization Details Last Updated DateTime 4 99 % 99 % 74 /min 16 /min 98.1 [degF] 126/74 mm[Hg] Not Available [employer] 4 16:47:25 Date Recorded Body weight Oxygen saturation Oxygen saturation in Arterial blood by Pulse oximetry Body height Body temperature Respiratory rate Heart rate Systolic And Diastolic Provider Name and Address Organization Details Last Updated DateTime 4 74152.2 64 g 97 % 97 % 172.72 cm 97.7 [degF] 17 /min 97 /min 120/90 mm[Hg] Not Available [employer] 12:21:43 Date Recorded Body temperature Heart rate Oxygen saturation Oxygen saturation in Arterial blood by Pulse oximetry Systolic And Diastolic Provider Name and Address Organization Details Last Updated DateTime 4 98.1 [degF] 77 /min 98 % 98 % 138/94 mm[Hg] Not Available [employer] 16:07:34 Social History None recorded. Functional Status None recorded. Mental Status None recorded. Family History Nothing Reported. Medical History No medical history recorded. Gynecological HistoryNo gynecological history recorded. Obstetrics History GPAL:G 0 P 0 0 0 0 Past Encounters Encounter ID Performer Location Encounter Start Date Encounter Closed Date Diagnosis/Indication Diagnosis SNOMED-CT Code Diagnosis ICD10 Code Diagnosis IMO Codes Diagnosis Note [id number] Janette Nice MD Main - [address] [address] 07/28/2023 12:22:19 07/31/2023 13:34:03 Upper respiratory infection 11205708 J06.9 Likely viral. Advised we will call [...] afebrile without color nasal discharge or sputum [id number] Fortino Guzman MD [facility] [address] [place] [phone] 08/08/2023 16:47:19 08/09/2023 11:01:47 Viral upper respiratory tract infection 112424352 J06.9 Acute bronchitis 6367493 2 J20.9 This 77-year-ol d male has had congestion and a cough for almost a month. Mucinex DM hasn't been effective. I ordered a Z-Thomas. He will follow-up with his PCP for any persistent symptoms. The patient agreed with this plan. [id number] Lissy San MD [facility] - [facility] [address] 01/24/2024 12:21:41 01/24/2024 18:25:34 Cough 92174761 R05.9 68 year old female with a [...] assessment and plan as documented by the hemmer automatic. I provided real-time medical direction for this encounter and was immediatel y available to provide additional phone-base d assistance as needed. We discussed the diagnostic uncertaint y of home visits and associated risks. We discussed the need to seek care urgently/e mergently in the setting of any new or worsening symptoms. [id number] Jeet Stovall MD [facility] [address] [place] [phone] 04/11/2024 16:07:31 04/11/2024 23:08:50 Acute exacerbation of chronic obstructive pulmonary disease 097952391 J44.1 Health Concerns Section Related Observation LastModified by Organization Detai ls LastModified Time None Recorded Concern Status LastModified by Organization Details LastModified Time None Recorded Advance Directives Directive None Recorded Payers Insurance Date Sequence Insurance Name Policy Number Policy Kimble Covered Member ID Kimble Member ID Guarantor Name 04/12/2024 1 [facility] - DOS ON OR AFTER 2022 - DUAL ELIGIBLE - [employer] AND ONE CARE (MEDICARE REPLACEMENT/ADV ANTAGE - HMO) Maida Mitchell [id number] Maida Mitchell Notes Date Note Type Note Provider Name and Address Organization Details Recorded Time 07/28/2023 text/html ROS as noted in the HPI [facility] Nurse Triage Notes (Zeke Yu): Reason [...] Weakness/Lethargy, Headache, Asthma, COPDPMH: COPD/AsthmaAllergie s: VancomycinComments: Spindle Repairer verified the member's name//address and phone number [...] ................... ................... ................... ................... ................... ................... ........ Floor Worker [place] Note From Humza Rabago: Encountered patient conscious, [...] Extremities is free of trauma and edema. [facility] contacted: orders for PCR and orthostatic vital science performed results reported to [facility]. PCR swab to be taken to [facility] laboratory. [facility] to write prescription for medication regimen at patient s pharmacy of choice. Red flags discussed with patient, patient urged to seek further medical attention. Should she develop priority symptoms, such as chest pain, syncope, fevers, acute shortness of breath or changes in vision. Patient expresses understanding and would like to remain home at this time. Floor Worker [place] Allergies: Vancomycin ................... ................... ................... ................... ................... 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 Per PENOLOGY TEACHER , [facility] went out on 07/28. Member was found to be Negative per PCR and mucinex sent . Per member is taking medication. Member is not on home 02, but has neb . Member dry cough, no wheezing when breathing Fortino Guzman MD [address] [facility],[address], [place], [address], ARMIN LAYNE 08/08/2023 17:01:14 01/24/2024 text/html HPI: Member had [...] No further information needed to process visit. Floor Worker [place] POC Test Results from Yared Saenz - [facility] Rapid COVID antigen (12:49:53) COVID: - ................... ................... ................... ................... ................... ................... ................... ........ Floor Worker [place] Note From Yared Saenz: [facility] dispatched [...] for the pain. [facility] contacts PT [facility] who recommends fluids and rest at home. Believes this to be a viral common cold and to let it run its course. [facility] also recommends to follow up with GI doctor about any recent changes with her eating changes or pain levels. [facility] explains to pt that if she experiences any sudden onset SOB, chest pain or sudden N/v that she should contact [facility] for a higher level of care. ................... ................... ................... ................... ................... ................... ................... ........ Disposition: Fulfilled Lissy San MD [address] [place] [address],[address], [place], [phone], [employer] 01/24/2024 13:37:22 04/11/2024 text/html [facility] Nurse Triage Notes (Demetra Romero): Reason For Request: PT reporting chest tightness + and some shortness of breath Chief Complaints: Shortness of Breath/Dyspnea PMH: COPD/Asthma Allergies: Vancomycin Comments: Spindle Repairer verified the member's name//address and phone number. Member is a 68 yr old slovenian female , a/o3 PMH >ASthma / copd [...] ................... ................... ................... ................... ................... ................... ........ Floor Worker [employer] [place] Note From Ayo Tomlin: Dispatched for evaluation of a 68 y/o female, Citizen [place] speaking only, complaining and requesting an evaluation of shortness of breath and tightness in chest. Upon arrival to pt apartment, pt ambulatory waiting for providers at door. Pt sat on couch and assessment performed, vital signs obtained. Language line utilized due to pt speaking [place] only, with pt and providers able to communicate in short sentences in Hebrew. Assessment found CAOX4, airway open and patent, [...] confirmed pt allergies and pharmacy and contacted [facility]. [facility] ordered Duoneb treatment and to call back after treatment completed with further assessment. Duoneb administered with pt stating improvement in symptoms upon completion, lung sounds clear in all [place], pt work of breathing noted to be improved, pt breathing slower and with less effort. [facility] contacted with update, [facility] ordering second duoneb and 40mg prednisone, with [facility] sending prednisone prescription to pt pharmacy. Providers administered 40mg prednisone and began duoneb treatment. Red flags discussed. Providers then left the residence. All times approximate. ................... ................... ................... ................... ................... ................... ................... ........ Disposition: Fulfilled Jeet Stovall MD [address] [facility],[address], [place], [phone], [employer] 04/11/2024 18:52:26 OBGyn Episode No OBEpisode recorded.
--- OUTSIDE RECORDS SUMMARY | 2025-05-23 14:44 | XMS_ITS | Data Portability ---
Author Organization [email or web address], Main Office Address [address] [facility], [address] [place] [address] Care Team Providers Care Medicare Coordinator Name Role Phone WESTLEY AMBROCIO - 2ND FLOOR OTHER DIANELYS IYER Primary Care Provider Assessment Encounter Date Assessment Date Assessment LastModified by Organization Details LastModified Time 01/11/2024 01/11/2024 I have seen and examined the patient independently and confirmed the findings above with the [employer]ODUCTION [employer] student note. Management plan discussed with the [employer]ODUCTION [employer]RAFTSM[employer] student personally. [email or web address] Not available 01/11/2024 13:09:31 Plan of Treatment [...] Recorded Time Chronic obstructi ve pulmonary disease 27496570 Active 2023 Jennifer Zaragoza NP [address] [facility], [address], [place], [address], [facility] 4 14:58:38 Restless legs syndrome 29772306 Active 2023 Jennifer Zaragoza NP [address] [facility], [address], [place], [address], [facility] 4 14:58:57 Osteoarth ritis 917142002 Active 2023 Jennifer Zaragoza NP [address] [facility], [address], [place], [address], [place] [facility] 4 14:59:07 Gastroeso phageal reflux disease 237977724 Active 2023 Jennifer Zaragoza NP [address], [address], [place], [address], [facility] 4 14:59:12 Abnormal small bowel motility 32717991 Active 2023 Jennifer Zaragoza NP [address], [address], [place], [address], [facility] 4 14:59:26 Allergic rhinitis 08189505 Active 2023 Jennifer Zaragoza NP [address], [address], [place], [address], [facility] 4 14:59:38 Anxiety 55503220 Active 2023 Jennifer Zaragoza NP [address], [address], [place], [address], [facility] 4 14:59:47 Total knee replaceme nt Active 2023 Jennifer Zaragoza NP [address], [address], [place], [address], [facility] 4 15:00:05 Pain of right knee region 056971700911 105 Active 2023 Jennifer Zaragoza NP [address], [address], [place], [address], [facility] 4 15:02:07 Migraine 42529792 Completed 202312/23/2023 Jennifer Zaragoza NP [address], [address], [place], [address], [facility] 4 15:02:20 Vertigo 072637288 Active 2023 Jennifer Zaragoza NP [address], [address], [place], [address], [facility] 4 15:02:40 Asthenia 98971871 Active 2023 Jennifer Zaragoza NP [address], [place], [address], [facility] 4 15:03:52 Headache disorder 309577811 Active 2023 Omkar Clement MD [address] [facility], [address], [place], [address], [facility] 4 11:36:49 Primary osteoporo sis 812978342 Active 2023 Omkar Clement MD [address] [facility], [address], [place], [address], [facility] 4 11:37:06 Chronic idiopathi c constipat ion 72281974 Active 2023 Omkar Clement MD [address] [facility], [address], [place], [address], [facility] 4 11:37:24 Problem Notes None recorded. Procedures Surgical History Date Name Laterality Status Provider Name and Address Organization Details Recorded Time 2023 total replacement of left knee joint completed Jennifer Zaragoza NP [address] [facility], [address], [place], [address], [facility] 4 14:43:53 total replacement of right knee joint completed Jennifer Zaragoza NP [address] [facility], [address], [place], [address], [facility] 4 14:43:20 operation on external ear completed Jennifer Zaragoza NP [address] [facility], [address], [place], [address], [facility] 4 14:44:10 colonoscopy completed Jennifer Zaragoza NP [address] [facility], [address], [place], [address], [facility] 4 14:44:26 esophagogastroduodenoscopy completed Jennifer Zaragoza NP [address] [facility], [address], [place], [address], [facility] 4 14:44:38 Imaging Results None recorded. Procedure Notes None recorded. Medical Equipment None Reported. Allergies Allergen ID Allergen Name Allergen Category Reaction Reaction Severity Criticality Documentation Date Start Date Code Code System Note Provider Name and Address Organization Details Recorded Time 06363 vancomyci n medicatio n other Not available high 12/23/2023 40373 RxNorm redne ss swell ing Jennifer Zaragoza NP [address] [facility], [address], [place], [address], [facility] 4 14:51:32 55475 tetanus and diphtheri a toxoids Not available anaphylax is severe high 12/23/2023 fever Jennifer Zaragoza NP [address] [facility], [address], [place], [address], [facility] 4 14:52:13 Medications Not known to be on any medication Vitals Date Recorded Body weight Heart rate Respiratory rate Body temperature Oxygen saturation Oxygen saturation in Arterial blood by Pulse oximetry Systolic And Diastolic Provider Name and Address Organization Details Last Updated DateTime 4 25767.4 4 g 75 /min 18 /min 98 [degF] 97 % 97 % 120/70 mm[Hg] Jennifer Zaragoza NP [address] [facility], [address], [place], [address], [facility] 4 13:15:38 Date Recorded Body weight Heart rate Respiratory rate Body temperature Oxygen saturation Oxygen saturation in Arterial blood by Pulse oximetry Systolic And Diastolic Provider Name and Address Organization Details Last Updated DateTime 4 71272.4 4 g 64 /min 18 /min 97.6 [degF] 97 % 97 % 124/68 mm[Hg] Jennifer Zaragoza NP [address] [facility], [address], [place], [address], [facility] 4 18:04:40 Date Recorded Body weight Heart rate Respiratory rate Body temperature Oxygen saturation Oxygen saturation in Arterial blood by Pulse oximetry Systolic And Diastolic Provider Name and Address Organization Details Last Updated DateTime 4 73846.4 4 g 62 /min 16 /min 98.4 [degF] 98 % 98 % 124/68 mm[Hg] Jennifer Zaragoza NP [address] [facility], [address], [place], [address], [facility] 4 09:59:09 Date Recorded Heart rate Respiratory rate Body temperature Oxygen saturation Oxygen saturation in Arterial blood by Pulse oximetry Systolic And Diastolic Provider Name and Address Organization Details Last Updated DateTime 4 78 /min 18 /min 98.5 [degF] 95 % 95 % 118/70 mm[Hg] ANA BENJAMIN NP [address] [facility], [address], [place], [address], [facility] 4 09:45:01 Date Recorded Body weight Heart rate Respiratory rate Body temperature Oxygen saturation Oxygen saturation in Arterial blood by Pulse oximetry Systolic And Diastolic Provider Name and Address Organization Details Last Updated DateTime 4 35223.8 9 g 70 /min 18 /min 98.2 [degF] 99 % 99 % 129/74 mm[Hg] MELISSA SIMON [address] [facility], [address], [place], [address], [facility] 4 17:48:15 Social History Question Answer Notes LastModified by Muzzley Details LastModified Time Tobacco Smoking Status Former Smoker Jennifer Zaragoza NP [address] [facility], [facility] [address], [place], [address], [facility] 12/23/2023 14:48:10 Do You Have An [...] Functional Status Question Answer Note LastModified by Muzzley Details LastModified Time Do you use any [...] B, unspecified formulation 4 completed Della Jeet [facility] 12/23/2023 10:39:43 Hep B, unspecified formulation 5 completed Della Jeet [facility] 12/23/2023 10:39:51 Hep B, unspecified formulation 5 completed Della [facility] 12/23/2023 10:39:57 Pneumococcal conjugate PCV 13 9 completed Della Jeet [facility] 12/23/2023 10:40:57 pneumococcal polysaccharide PPV23 5 completed Della Jeet [facility] 12/23/2023 10:41:39 pneumococcal polysaccharide PPV23 2 completed Della [facility] 12/23/2023 10:41:50 pneumococcal polysaccharide PPV23 1 completed Della Jeet [facility] 12/23/2023 10:41:58 influenza, unspecified formulation 2 completed Della Jeet [facility] 12/23/2023 10:42:16 influenza, unspecified formulation 3 completed Della Jeet [facility] 12/23/2023 10:42:24 SARS-COV-2 (COVID-19) vaccine, UNSPECIFIED 1 completed Della Jeet [facility] 12/23/2023 10:42:40 SARS-COV-2 (COVID-19) vaccine, UNSPECIFIED 1 completed Della Jeet [facility] 12/23/2023 10:42:49 SARS-COV-2 (COVID-19) vaccine, UNSPECIFIED 4 completed Della Marcano [facility] 12/23/2023 10:42:56 zoster live 4 completed Della [facility] 12/23/2023 10:43:30 zoster recombinant 1 completed Della [facility] 12/23/2023 10:43:50 zoster recombinant 1 completed [facility] 12/23/2023 10:44:01 Past Encounters Encounter ID Performer Location Encounter Start Date Encounter Closed Date Diagnosis/Indication Diagnosis SNOMED-CT Code Diagnosis ICD10 Code Diagnosis IMO Codes Diagnosis Note [id number] Jennifer Zaragoza NP [address] [address] 12/23/2023 14:27:58 12/27/2023 10:39:41 Pain of right knee region 2313125676 25778 M25.561 sp 12/[address] [...] s/s infection Chronic ob structive pulmonary disease 19519116 J44.9 albuterol 2 puff po q 4 prnalb neb q 4hours prn sobflutica sone/salme terol 250/50 bidmonitor Restless l egs syndrome 54689214 G25.81 ropinirole 0.25 mg po qhsmonitor Osteoarthritis 748542271 M19.90 now with 2 knee surgeries to help with painwith 2 calcium citrate vit d 3 2 tab bidvit b12 1000 mcg dailyvit d 3 50 mcg po dialyalend ronate 70 mg q weekmonito r Abnormal s mall bowel motility 88853296 R19.8 bm todaymulti vit with iron qdfiber lax 625 mg po qddocusate 100 mg po bidbisacod yl 5 mg po qhsmonitor Gastroesop hageal reflux disease 972301475 K21.9 omeprazole 20 mg bidmetoclo pramide 10 mg po qidlinzess 290 mcgh cap q amfamotidi ne 40 mg po qhszofran 4 mg po q 8 prnmonitor Anxiety 58409823 F41.9 contmirtaz apine 22.5 mg po qhsclonaze ana 1 mg po bid prnmonitor Vertigo 861001221 R42 meclizine 25 mg po tid prn Allergic rhinitis 537606 04 J30.9 azelastine 137mcg intranasal daily both naresfluti casone 50 mcg 2 spray intranasal dailylorat idine 10 mg po dailyzafir lukast 20 mg po bidmonitor Asthenia 54588413 R53.1 pt ot treat and evalmonito r Migraine 83188128 G43.90 9 sumatripta n 100 mg po q 2-4 hours prn (nte 2 doses in 24 hours) [id number] Jennifer Zaragoza NP [address] [address] 12/26/2023 13:46:11 12/29/2023 09:48:46 Pain of right knee region 8316301837 11892 M25.561 sp 12/[address] [...] s/s infection Chronic ob structive pulmonary disease 54583975 J44.9 contalbute rol 2 puff po q 4 prnalb neb q 4hours prn sobflutica sone/salme terol 250/50 bidmonitor Restless l egs syndrome 71192245 G25.81 contcropin irole 0.25 mg po qhsmonitor Osteoarthritis 049771400 M19.90 now with 2 knee surgeries to help with painwith 2 calcium citrate vit d 3 2 tab bidvit b12 1000 mcg dailyvit d 3 50 mcg po dialyalend ronate 70 mg q weekmonito r Vertigo 692297302 R42 meclizine 25 mg po tid prn Allergic rhinitis 714188 04 J30.9 azelastine 137mcg intranasal daily both naresfluti casone 50 mcg 2 spray intranasal dailylorat idine 10 mg po dailyzafir lukast 20 mg po bidmonitor Asthenia 84592696 R53.1 pt ot treat and evalmonito r [id number] Omkar Clement MD [address] [address] 12/27/2023 11:30:56 12/29/2023 10:05:35 Osteoarthritis of left knee joint 9024165637 86692 M17.12 end stage OA left knee now s/p TKRASA 325 mg bid for dvt prophylaxi sfollow ortho recs and update with concernsPT OT Eval and treatmonit or for pain control Chronic ob structive pulmonary disease 30171017 J41.1 advair 250/50 bidmonitor respirator y status and albuterol utilizatio n Restless l egs syndrome 55232799 G25.81 ropinirole 0.25 mg po qhsmonitor for effect Vertigo 302865433 R42 carrying dxmeclizin e 25 mg po tid prnmonitor for sx and need for further workup Allergic rhinitis 122921 04 J30.2 appears to be significan t issue for patient at baselineco ntinue out patient medsavoid PO steroid given post op statusmoni tor sx Asthenia 00589125 R53.1 PT OT eval and treatmonit or fall risk Chronic id iopathic constipation 70867108 K59.04 appears with dysmotilit y disorderma intained onlinzess 290 mg qdmonitor for effectGI eval prn Primary osteoporosis 276 188418 M81.0 fosamax 70 mg q weekcontin ued Headache disorder 312688 009 G44.89 baseline migraine hxon imitrex prnadded to H Gastroesop hageal reflux disease 733298670 K21.9 famotidine 40 mg qdmonitor for sx relief Cellulitis of left lower limb 3299635749 4945792 L03.116 concern for infection at incision sitestarte d on keflexorth o updated and reeval not felt to be infectedab x d/c'ed [id number] Jennifer Zaragoza NP [facility] [address] [address] 12/28/2023 13:14:27 01/04/2024 15:54:46 Osteoarthritis of left knee joint 0386633707 61807 M17.12 end stage OA left knee now s/p TKRASA 325 mg bid for dvt prophylaxi s until 02/02follow ortho recsand update with concerns and monitor for infectionP T OT Eval and treatmonit or for pain control Cellulitis of left lower limb 3986693853 0427822 L03.116 concern for infection at incision sitestarte d on keflexorth o updated and reeval not felt to be infectedab x d/c'ed on 12/26ice prnwbc is 11.2 on 12/26 elevated, however site is less warm and decreased swellingmo nitor closely for infection and reeval labs on tuesday Asthenia 34805672 R53.1 PT OT eval and treatmonit or fall risk Restless l egs syndrome 99343825 G25.81 ropinirole 0.25 mg po qhsmonitor for effect [id number] Jennifer Zaragoza NP [facility] [address] 01/04/2024 16:01:53 01/10/2024 09:58:03 Osteoarthritis of left knee joint 5374282781 25579 M17.12 end stage OA left knee now s/p TKRASA 325 mg bid for dvt prophylaxi s until 02/02follow ortho recsand update with concerns and monitor for infectionP T OT Eval and treatmonit or for pain control Asthenia 11629209 R53.1 PT OT eval and treatmonit or fall risk Restless l egs syndrome 47052829 G25.81 ropinirole 0.25 mg po qhsmonitor for effect Dysuria 64201351 R30.0 pt with report of dysuria and frequencyu rinalysis with c & spyridium 200 mg po tid prn dysuria to start after sample is obtainedpt educated about orange discolorat ion to urinemonit or ua and consider abx if needed [id number] Jennifer Zaragoza NP [facility] [address] 01/06/2024 09:58:30 01/10/2024 11:28:47 Dysuria 84441599 R30.0 UTI ruled outpt with report of dysuria and frequency, states she has not had bowel movement in a few dayssee constipati on01/05 urinalysis with c & s with culture showing no infection dc pyridium 200 mg po tid prnmonitor ua and consider abx if needed Osteoarthr itis of left knee joint 4967423723 17872 M17.12 end stage OA left knee now s/p TKRpt reports ortho visit yesterday and removed suturesste ri strips in place today.nsg to obtain consult info from orthoASA 325 mg bid for dvt prophylaxi s until 02/02foll ortho recsand update with concerns and monitor for infectionP T OT Eval and treatmonit or for pain control Asthenia 02840334 R53.1 PT OT eval and treatmonit or fall risk Abnormal s mall bowel motility 27290578 R19.8 no bm in a few daysmultiv it with iron qdfiber lax 625 mg po qddocusate 100 mg po bidbisacod yl 5 mg po qhs01/05inc rease senna to 2 tabs per daygive mom 30cc todaymonit or [id number] ANA BENJAMIN NP [facility] [address] 01/11/2024 09:00:48 01/19/2024 12:49:58 Abnormal small bowel motility 71762641 R19.8 no bm in a few days [...] qd Add miralax dailyMonit or bowels Dysuria 37944054 R30.0 UTI ruled outpt had reported dysuria and frequency on 01/05 - no complaints today, seems resolved urinalysis with c & s with culture neg01/05 dc pyridium 200 mg po tid prnmonitor sx. Osteoarthr itis of left knee joint 9189450481 93420 M17.12 end stage OA left knee now [...] home Sat. 7/6monitor for pain control Asthenia 43246312 R53.1 PT OT eval and treatSee above, meeting rehab goals, goal home 7/6monitor fall risk [id number] MELISSA SIMON [facility] [address] [address] 01/13/2024 11:41:32 01/19/2024 13:26:02 Osteoarthritis of left knee joint 1003479344 16515 M17.12 end stage OA left knee now s/p TKRASA 325 mg bid for dvt prophylaxi sfollow up with ortho outpatient Restless l egs syndrome 98003811 G25.81 ropinirole 0.25 mg po qhs Chronic ob structive pulmonary disease 91200379 J41.1 advair 250/50 bid Vertigo 514281381 R42 carrying dxmeclizin e 25 mg po tid prnmonitor for sx and need for further workupfoll ow up outpatient Allergic rhinitis 053372 04 J30.2 appears to be significan t issue for patient at baselineco ntinue out patient medsavoid PO steroid given post op statusmoni tor sx Chronic id iopathic constipation 18600656 K59.04 appears with dysmotilit y disorderma intained onlinzess 290 mg qdmonitor for effectGI eval prn Primary osteoporosis 276 070289 M81.0 fosamax 70 mg q weekcontin ued Headache disorder 806682 009 G44.89 baseline migraine hxon imitrex prnadded to PMH Gastroesop hageal reflux disease 278303973 K21.9 famotidine 40 mg qdmonitor for sx relief Abnormal s mall bowel motility 42902346 R19.8 Continue:l inzess 290 mg qd for IBSfiber lax 625 mg po qd docusate 100 mg po bid bisacodyl 10 mg po qhs senna 2 tabs qd miralax 17 gn daily Anxiety 84095193 F41.9 contmirtaz apine 22.5 mg po qhsclonaze ana 1 mg po bid prnmonitor Osteoarthritis 260151837 M19.90 now with 2 knee surgeries to [...] Kimble Member ID Guarantor Name 01/19/2024 1 [facility] - DOS ON OR AFTER 2022 - MEDICARE ADVANTAGE [place] (MEDICARE REPLACEMENT/ADV ANTAGE - PPO) Maida Mitchell [id number] Maida Mitchell Notes Date Note Type Note Provider Name and Address Organization Details Recorded Time 12/28/2023 text/html Pt is seen for an acute rounding visit. She is a 68 yo female admit from hospital after presenting with end stage OA left knee for TKR having failed conservative treatment without complications in hospital on ASA 325 mg bid for DVT prophylaxis. [facility] care felt [...] or complaints today. Jennifer Zaragoza NP [address] [facility], [address], [place], [address], [facility] 12/28/2023 13:29:09 01/04/2024 text/html Pt is seen for an acute rounding visit. She is a 68 yo female admit from hospital after presenting with end stage OA left knee for TKR having failed conservative treatment without complications in hospital on ASA 325 mg bid for DVT prophylaxis. She is at [facility] for rehab and continued care felt [...] No cva tenderness. Jennifer Zaragoza NP [address] [facility], [address], [place], [address], [facility] 01/04/2024 18:17:27 01/06/2024 text/html Pt [...] and well approximated. Jennifer Zaragoza NP [address] [facility], [address], [place], [address], [facility] 01/06/2024 10:22:58 01/11/2024 text/html Pt [...] does have asthma/COPD). ANA BENJAMIN NP [address] [facility], [address], [place], [address], [facility] [employer] 01/11/2024 13:15:56 01/13/2024 text/html Maida is a 68 yr old female seen today for discharge on 01/14/24. [facility] presenting with end [...] she will be receiving support services with [facility]. she can be discharge to home with medications, PT/OT and vna services. PMH is significant for OA,anxiety,RLS,gerd ,copd,chronic constipation,vertig o migraine LARA, osteoporosis MELISSA SIMON [address] [facility], [address], [place], [address], [facility] [employer] 01/13/2024 17:48:53 OBGyn Episode No OBEpisode recorded.
== END 2025-05-23 13:31 | disposition home or self-care (01) ==
LOC: HO.HGI 11:30
PROVIDERS: PCP Family Medicine; Visit Provider Nurse Practitioner
DX: K21.9 Gastro-esophageal reflux disease without esophagitis (principal); R11.0 Nausea; K59.04 Chronic idiopathic constipation; K59.9 Functional intestinal disorder, unspecified
CPT/HCPCS: 99213